=== PATIENT | female | born 1930 | race American Indian/Alaskan Native ===

== ENCOUNTER 2016-12-21 15:52 | Emergency (ER) | payer MEDICARE ==
--- NOTE | 2016-12-21 17:15 | Cat Scan Report ---
FINAL REPORT EXAM: CT HEAD/BRAIN WO CON HISTORY: Fall, lac to head TECHNIQUE: Standard unenhanced CT of the head at 5.0 millimeter axial increments. PRIORS: None. FINDINGS: There is a soft tissue laceration overlying the left forehead. No underlying fracture or subdural hematoma in this region is seen. 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 Encephalomalacia is noted particularly in the right temporal lobe with compensatory ballooning of the right lateral ventricle. There is overall moderate cerebral atrophy noted. There is no evidence for mass lesion, mass effect, midline shift, acute intracranial hemorrhage, or acute ischemia/ infarction. No evidence for acute skull fracture is seen. Visualized paranasal sinuses demonstrate mild mucosal thickening in the frontal, ethmoid, maxillary, and sphenoid sinuses. IMPRESSION: 1. no acute intracranial process noted. Left forehead scalp laceration identified. 2. The area of remote infarct encephalomalacia in the right temporal parietal lobes with compensatory dilatation of the right lateral ventricle. 3. Chronic pansinusitis.
[2016-12-21] MEDS ORDERED: BOOSTRIX IM ONE (17:54)
[2016-12-21] MEDS ORDERED: PROVENTIL IH ONE (17:54)
[2016-12-21] MEDS ORDERED: ATROVENT IH ONE (17:54)
[2016-12-21] MEDS ORDERED: NORCO 5/325 PO ONE (17:54)
--- NOTE | 2016-12-21 17:56 | XRay Report ---
FINAL REPORT EXAM: XR HIP 2-3V LT HISTORY: Fall, pain left hip TECHNIQUE: AP view of the pelvis and single coned-down lateral views of the left hip. PRIORS: None. FINDINGS: No evidence for acute fracture or dislocation is seen. Joint spaces are maintained. The soft tissues demonstrate vascular calcifications. Bony mineralization is normal. Moderate to severe degenerative disc narrowing throughout the lumbar spine is seen. IMPRESSION: No acute soft tissue or bony abnormality noted in the left hip.
--- NOTE | 2016-12-21 18:39 | Emergency Department Report ---
HPI - General Chief Complaint: Laceration/Recheck/Suture Time Seen by Provider: 12/21/16 17:32 - HPI HPI: Room 19 The patient is an 86-year-old female presenting with a chief complaint of head pain after fall. Approximately 2 hours prior to arrival in the patient slipped and fell striking her head on her bed frame. Family denies loss of consciousness. The patient complains of pain in her head and left hip. Family states the patient is being treated for pneumonia approximately 1 month ago but still has had a persistent cough. Patient was given a Z-Harvinder which she has completed. Family states he ran out of medication for her nebulizer. Location: [see above] Duration: [see above] Quality: Pain Severity: Moderate Modifying factors: [see above] Context: [see above] Mode of transportation: [not driving] ED Past Medical Hx - Past Medical History Hx Hypertension: Yes Hx CVA: Yes (x7) Hx Diabetes: Yes Additional medical history: anemia (with transfusions), pneumonia - Surgical History Additional Surgical History: hysterectomy, colon polyps removed, pacemaker - Family History Family history: no significant - Social History Smoking Status: Never Smoker Substance Use Type: None - Medications Home Medications: Home Medications Medication Instructions Recorded Confirmed Last Taken Type ALBUTEROL Inhaler [Proair] 2 puff IH QID PRN #1 inhalation 12/21/16 Unknown Rx Albuterol Sulfate [Albuterol 0.63% 0.63 mg IH TID PRN #90 ml 12/21/16 Unknown Rx NEBS] Amlodipine Besylate [Norvasc] 10 mg PO DAILY #90 tablet 12/21/16 Unknown Rx AtorvaSTATin [Lipitor] 20 mg PO QHS #90 tablet 12/21/16 Unknown Rx Hydralazine HCl [Apresoline TAB] 50 mg PO TID #90 tablet 12/21/16 Unknown Rx Metoprolol [Lopressor TAB] 25 mg PO BID #90 tablet 12/21/16 Unknown Rx Promethazine /Codeine 5 ml PO Q6H PRN #100 ml 12/21/16 Unknown Rx [Phenergan/Codeine 6.25-10 mg/5 ml] ED Review of Systems ROS: Stated complaint: FELL/HEAD LACERATION Other details as noted in HPI Comment: All other systems reviewed and negative Constitutional: denies: chills, fever Eyes: denies: eye pain, eye discharge, vision change ENT: denies: ear pain, throat pain Respiratory: cough Cardiovascular: denies: chest pain, palpitations Endocrine: no symptoms reported Gastrointestinal: abdominal pain Genitourinary: denies: urgency, dysuria, discharge Musculoskeletal: arthralgia, myalgia Skin: other (forehead laceration). denies: rash, lesions Neurological: denies: headache, weakness, paresthesias Psychiatric: denies: anxiety, depression Hematological/Lymphatic: denies: easy bleeding, easy bruising Physical Exam - Physical Exam Vital Signs: Vital Signs 12/21/16 12/21/16 12/21/16 16:01 17:17 18:07 Temperature 97.8 F Pulse Rate 82 79 Pulse Rate [ 78 Bilateral Bases ] Respiratory 18 22 Rate Respiratory 18 Rate [Bilateral Bases] Blood Pressure 177/57 Blood Pressure 118/70 [Left] O2 Sat by Pulse 98 97 Oximetry Physical Exam: GENERAL: The patient is well-developed well-nourished female lying on stretcher appearing to be in mild discomfort. [] HEENT: Normocephalic. Approximately 2.5; laceration to the left forehead. Scabbed abrasions to the middle and right forehead. Extraocular motions are intact. Patient has moist mucous membranes. NECK: Supple. Trachea midline CHEST/LUNGS: Clear to auscultation. There is no respiratory distress noted. HEART/CARDIOVASCULAR: Regular. There is no tachycardia. There is no gallop rub or murmur. ABDOMEN: Abdomen is soft, with tenderness to palpation in the suprapubic and left upper quadrant. Patient has normal bowel sounds. There is no abdominal distention. SKIN: There is an approximately 2.5 cm laceration to left forearm. There is no diaphoresis. NEURO: The patient is awake, alert, and oriented. The patient is cooperative. The patient has normal speech MUSCULOSKELETAL: There is no evidence of acute injury. ED Course Vital Signs 12/21/16 12/21/16 12/21/16 16:01 17:17 18:07 Temperature 97.8 F Pulse Rate 82 79 Pulse Rate [ 78 Bilateral Bases ] Respiratory 18 22 Rate Respiratory 18 Rate [Bilateral Bases] Blood Pressure 177/57 Blood Pressure 118/70 [Left] O2 Sat by Pulse 98 97 Oximetry ED Medical Decision Making - Radiology Data Radiology results: report reviewed (CT head, CT abdomen and pelvis), image reviewed (CT head, chest x-ray, left hip x-ray CT abdomen and pelvis) interpreted by me: Chest x-ray-no definite focal infiltrates, no pneumothorax Left hip x-ray-no acute fracture CT head (read by radiologist)-no acute intracranial process noted. Left forehead scalp laceration identified. There is a remote infarct so formalization the right temporal parietal lobes with compensatory dilatation of the right lateral ventricle. Chronic pansinusitis CT abdomen and pelvis (read by radiologist)-2 adjacent periumbilical midline ventral hernias containing only fat. Granulomas throughout the liver. Nonobstructing calculus in the right kidney. Moderate stool present throughout the entire colon which can be associated with constipation. - Differential Diagnosis closed head injury, intracranial hemorrhage, facial laceration, diverticuli Critical care attestation.: If time is entered above; I have spent that time in minutes in the direct care of this critically ill patient, excluding procedure time. ED Disposition Clinical Impression: Closed head injury, Forehead laceration, Contusion of left hip, Ventral hernia , Cough Disposition: DISCHARGED TO HOME OR SELFCARE Is pt being admited?: No Does the pt Need Aspirin: No Condition: Stable Instructions: Suture Care (ED), Laceration (ED) Additional Instructions: Return to the emergency department immediately should you develop worsening symptoms, fever, inability to tolerate food or liquid or any other concerns. Prescriptions: ALBUTEROL Inhaler [Proair] 2 puff IH QID PRN #1 inhalation PRN Reason: Shortness Of Breath Albuterol Sulfate [Albuterol 0.63% NEBS] 0.63 mg IH TID PRN #90 ml PRN Reason: Wheezing Amlodipine Besylate [Norvasc] 10 mg PO DAILY #90 tablet AtorvaSTATin [Lipitor] 20 mg PO QHS #90 tablet Hydralazine HCl [Apresoline TAB] 50 mg PO TID #90 tablet Metoprolol [Lopressor TAB] 25 mg PO BID #90 tablet Promethazine /Codeine [Phenergan/Codeine 6.25-10 mg/5 ml] 5 ml PO Q6H PRN #100 ml PRN Reason: cough Referrals: ARMEN SENA MD [Staff Physician] - 3-5 Days (Dr. Sena is a primary physician. Please follow with him to be established as a patient) JOHNY DALLAS MD [Staff Physician] - 3-5 Days (Dr. Dallas is a caster operator. Please follow up with her for further evaluation) KAYLYN BARBOSA MD [Staff Physician] - 3-5 Days (Dr. Barbosa is a surgeon. Please follow with him for further evaluation of your hernia) Time of Disposition: 20:12 Blank Doc - Documentation Documentation: Laceration note Consent was obtained verbally The wound was anesthetized with lidocaine 2% with epinephrine approximately 5 mL 's Wound was copiously irrigated with normal saline Site was prepped with Betadine Sutures used were 6.0 Ethilon The number of sutures placed in a simple interrupted fashion 5 The wound had good approximation The wound had good hemostasis Antibiotic ointment was applied and the wound was dressed Suture removal discussed with patient and informed the sutures need to be removed in 3-5 days Laceration type: Simple There were no complications
[2016-12-21 18:45] VITALS: BP 115/61
[2016-12-21] MEDS ORDERED: NACL 0.9% 500 ML IR ONE (18:51)
[2016-12-21] MEDS ORDERED: XYLOCAINE 2%/EPI 1:100,000 INFILTRATI ONE ×2 (18:56→19:01)
[2016-12-21] MEDS ORDERED: NACL 0.9% IR ONE (19:00)
--- NOTE | 2016-12-21 19:53 | Cat Scan Report ---
FINAL REPORT EXAM: CT ABDOMEN PELVIS WO CON HISTORY: intermittent periumbilical left sided abdominal pain TECHNIQUE: Standard unenhanced CT of the abdomen and pelvis. Coronal and sagittal reconstruction was also performed. PRIORS: None. FINDINGS: In the periumbilical region, there are 2 small periumbilical hernias adjacent to each other along midline. Both of these contain only fat and are located directly cranial to the umbilicus. Diastasis to the right-sided hernia is 9 mm. To the left, the diastasis is 5 mm. Within the abdomen, the liver demonstrates a multitude punctate calcifications throughout, likely granulomatous. The spleen, pancreas, gallbladder, adrenal glands, and left kidney are unremarkable. Nonobstructing calculus in the midpole right kidney is noted measuring 5 mm. No evidence for retroperitoneal or pelvic lymphadenopathy is seen. Moderate stool is present throughout the colon. The bowel loops have normal caliber. No soft tissue mass, fluid collection, inflammatory change, or free air is seen within the abdomen or pelvis. The appendix is not visualized. Moderate calcification of a normal sized aorta is seen. Within the pelvis, the bladder demonstrates 2 small diverticuli off each lateral margin. The largest is on the left measuring 1 cm. The uterus has been surgically removed. No evidence for mass or lymphadenopathy is seen in the pelvis. Images through the upper abdomen include the lung bases which demonstrate bibasilar atelectasis. A small pericardial effusion is seen. Pacer wires terminate in the right atrium and right ventricle. Bony structures show no focal abnormalities. Moderate degenerative disc narrowing throughout the lumbar spine is seen with extensive bilateral facet joint hypertrophy at multiple levels. IMPRESSION: 1. Two adjacent periumbilical midline ventral hernias containing only fat. 2. Granulomas throughout the liver 3. Nonobstructing calculus in the right kidney 4. Moderate stool present throughout the entire colon which can be associated with constipation 5. Pericardial effusion 6. Bibasilar atelectasis
[2016-12-21] MEDS ORDERED: BACITRACIN (ED) OINT PACKET TP ONE (20:30)
--- NOTE | 2016-12-22 08:55 | XRay Report ---
Portable chest: Comparison is made to a prior exam on April 20, 2014. The patient has a bipolar pacemaker with a normal-sized heart. These findings are unchanged. The overall bronchovascular pattern is more prominent on the current examination. No focal findings. Impression: Interval increase in bronchovascular markings. The possibilities would include mild congestive failure pattern.
== END 2016-12-21 20:39 | disposition home or self-care (01) ==
LOC: ED 15:52
DX: S01.81XA Laceration without foreign body of other part of head, initial encounter (principal); S70.02XA Contusion of left hip, initial encounter; K43.9 Ventral hernia without obstruction or gangrene; R05 Cough; I10 Essential (primary) hypertension; E11.9 Type 2 diabetes mellitus without complications; J18.9 Pneumonia, unspecified organism; D64.9 Anemia, unspecified; Z88.0 Allergy status to penicillin; Z90.710 Acquired absence of both cervix and uterus; Z86.73 Personal history of transient ischemic attack (TIA), and cerebral infarction without residual deficits; W01.190A Fall on same level from slipping, tripping and stumbling with subsequent striking against furniture, initial encounter; Y93.89 Activity, other specified; Y92.89 Other specified places as the place of occurrence of the external cause; Y99.8 Other external cause status
CPT/HCPCS: 70450; 71010; 74176; 90471; 90715; 94640

== ENCOUNTER 2017-01-01 22:10 | Emergency (ER) | payer MEDICARE ==
--- NOTE | 2017-01-01 23:18 | Emergency Department Report ---
ED Recheck HPI - General Stated Complaint: STITCHES REMOVAL Time Seen by Provider: 01/01/17 23:17 Source: patient, family Mode of arrival: Wheelchair Limitations: Physical Limitation - History of Present Illness Initial Comments: Patient here with family member brought patient in to have sutures removed 2016. She had laceration to her left forehead and sutures were placed. Patient denies any headache, fever, drainage from area or redness or swelling around area. MD Complaint: wound re-check Onset/Timin -: days(s) Initial Visit For: laceration Returns Today for: staple/Stitch removal, wound recheck Symptoms Since Prior Visit: no new symptoms Context: planned re-check Associated Symptoms: none Treatments Prior to Arrival: other (suture) - Related Data Previous Rx's Medication Instructions Recorded Last Taken Type ALBUTEROL Inhaler [Proair] 2 puff IH QID PRN #1 inhalation 12/21/16 Unknown Rx Albuterol Sulfate [Albuterol 0.63% 0.63 mg IH TID PRN #90 ml 12/21/16 Unknown Rx NEBS] Amlodipine Besylate [Norvasc] 10 mg PO DAILY #90 tablet 12/21/16 Unknown Rx AtorvaSTATin [Lipitor] 20 mg PO QHS #90 tablet 12/21/16 Unknown Rx Hydralazine HCl [Apresoline TAB] 50 mg PO TID #90 tablet 12/21/16 Unknown Rx Metoprolol [Lopressor TAB] 25 mg PO BID #90 tablet 12/21/16 Unknown Rx Promethazine /Codeine 5 ml PO Q6H PRN #100 ml 12/21/16 Unknown Rx [Phenergan/Codeine 6.25-10 mg/5 ml] Allergies Allergy/AdvReac Type Severity Reaction Status Date / Time Penicillins Allergy Hives Verified 04/20/14 04:58 ED Review of Systems ROS: Stated complaint: STITCHES REMOVAL Other details as noted in HPI Comment: All other systems reviewed and negative Constitutional: denies: chills, fever Respiratory: no symptoms reported Cardiovascular: denies: chest pain, palpitations, edema, syncope Gastrointestinal: denies: nausea, vomiting Musculoskeletal: denies: back pain, arthralgia Skin: other (laceration) Neurological: denies: headache ED Past Medical Hx - Past Medical History Previous Medical History?: Yes Hx Hypertension: Yes Hx CVA: Yes (x7) Hx Diabetes: Yes Additional medical history: anemia (with transfusions), pneumonia - Surgical History Past Surgical History?: Yes Additional Surgical History: hysterectomy, colon polyps removed, pacemaker - Family History Family history: hypertension - Social History Smoking Status: Never Smoker Substance Use Type: None - Medications Home Medications: Home Medications Medication Instructions Recorded Confirmed Last Taken Type ALBUTEROL Inhaler [Proair] 2 puff IH QID PRN #1 inhalation 12/21/16 Unknown Rx Albuterol Sulfate [Albuterol 0.63% 0.63 mg IH TID PRN #90 ml 12/21/16 Unknown Rx NEBS] Amlodipine Besylate [Norvasc] 10 mg PO DAILY #90 tablet 12/21/16 Unknown Rx AtorvaSTATin [Lipitor] 20 mg PO QHS #90 tablet 12/21/16 Unknown Rx Hydralazine HCl [Apresoline TAB] 50 mg PO TID #90 tablet 12/21/16 Unknown Rx Metoprolol [Lopressor TAB] 25 mg PO BID #90 tablet 12/21/16 Unknown Rx Promethazine /Codeine 5 ml PO Q6H PRN #100 ml 12/21/16 Unknown Rx [Phenergan/Codeine 6.25-10 mg/5 ml] ED Physical Exam - General Limitations: Physical Limitation General appearance: alert, in no apparent distress - Head Head exam: Present: atraumatic, normocephalic, normal inspection - Expanded Head Exam Expanded Head exam: Present: laceration (stitches. Healed. Nontender to palpate. No signs of infection.). Absent: abrasion, contusion, hematoma, racoon eyes, thurston's sign, general tenderness, tenderness of temporal artery, CSF rhinorrhea , CSF otorrhea - Eye Eye exam: Present: normal appearance, PERRL, EOMI Pupils: Present: normal accommodation - Respiratory Respiratory exam: Present: normal lung sounds bilaterally. Absent: respiratory distress, chest wall tenderness - Cardiovascular Cardiovascular Exam: Present: regular rate, normal rhythm, normal heart sounds - Extremities Exam Extremities exam: Present: normal inspection, full ROM - Neurological Exam Neurological exam: Present: alert, oriented X3, normal gait - Psychiatric Psychiatric exam: Present: normal affect, normal mood - Skin Skin exam: Present: warm, dry, intact, normal color, other (laceration with stitches) - Other Other exam information: 5 stitches removed from left forehead. Wound edges well approximated and no signs of infection. ED Course Vital Signs 01/01/17 23:33 Temperature 98.7 F Pulse Rate 72 Respiratory 18 Rate Blood Pressure 156/50 [Right] O2 Sat by Pulse 100 Oximetry - Reevaluation(s) Reevaluation #1: 01/02/17 01:10 5 stitches removed from healed laceration to left forehead. No Signs of infection and is well approximated and healing 01/02/17 01:11 ED Recheck MDM - Differential Diagnosis Wound Recheck, Suture/Staple Removal - Medical Decision Making ED COURSE: 5 stitches remove from lt forehead. Wound edges well approximated. No signs of infection. Patient instructed to follow up with her primary care physician in 2-3 days. Also instructed to keep affected area clean and dry. Critical care attestation.: If time is entered above; I have spent that time in minutes in the direct care of this critically ill patient, excluding procedure time. ED Disposition Clinical Impression: Visit for suture removal Disposition: DISCHARGED TO HOME OR SELFCARE Is pt being admited?: No Does the pt Need Aspirin: No Condition: Stable Instructions: Suture Removal (ED) Additional Instructions: keep affected area clean and dry Referrals: PRIMARY CARE, [Primary Care Provider] - 2-3 Days Forms: Accompanied Note
[2017-01-01 23:34] VITALS: BP 156/50
== END 2017-01-02 01:43 | disposition home or self-care (01) ==
LOC: ED 22:10
DX: S01.81XD Laceration without foreign body of other part of head, subsequent encounter (principal); I10 Essential (primary) hypertension; E11.9 Type 2 diabetes mellitus without complications; D64.9 Anemia, unspecified; I63.9 Cerebral infarction, unspecified; Z88.0 Allergy status to penicillin

== ENCOUNTER 2018-12-08 12:48 | Inpatient (IN) | payer MEDICARE ==
[2018-12-08] MEDS ORDERED: AMIDATE IV ONE ×2 (12:52→23:30)
[2018-12-08] MEDS ORDERED: XYLOCAINE 1% MPF 5 mL INFILTRATI ONE (12:52)
[2018-12-08] MEDS ORDERED: ZEMURON IV ONE ×2 (12:54→23:30)
[2018-12-08] MEDS ORDERED: NACL 0.9% 1000 ML 2,000 ML ONE (13:02)
[2018-12-08] MEDS ORDERED: MAXIPIME/NS 2 GM/100 ML 2 GM/100 ML BAG IV ONE ×2 (13:11→13:14)
[2018-12-08] MEDS ORDERED: VANCOMYCIN/NS 1 GM/250 ML 1 GM/250 ML BAG IV ONE (13:14)
[2018-12-08] MEDS ORDERED: NACL 0.9% 1000 ML 2,000 ML IV ONE (13:19)
[2018-12-08] MEDS ORDERED: ARTIFICIAL TEARS OPHTH OINT OU PRN (13:31)
[2018-12-08] MEDS ORDERED: VASELINE LIP THERAPY TP PRN (13:31)
[2018-12-08] MEDS ORDERED: SUBLIMAZE IV PRN (13:31)
--- NOTE | 2018-12-08 13:32 | Emergency Department Report ---
ED General Adult HPI - General Chief complaint: Altered Mental Status Stated complaint: STROKE Time Seen by Provider: 12/08/18 13:26 Source: EMS (verbal report received from EMS.ems notes not available at time of chart dictation), RN notes reviewed Mode of arrival: Stretcher Limitations: Altered Mental Status - History of Present Illness Initial comments: This is an 88-year-old female. The patient is brought to the hospital by emergency medical service for altered mental status. EMS arrives providing bag valve mask ventilation for the patient. The patient's last known well time is between 6 AM, and 7 AM. Exact less than well time is not known. EMS verbally reports patient has a history of multiple strokes, and is bedbound. She was apparently found by family in bed, unresponsive. EMS reports normal Accu-Chek in the field. In the emergency room, family not available for discussion of goals of care, for clarification of advanced directives. EMS verbally reported that the patient is full code, although no corroborating paperwork is currently available. In the emergency room, the patient is obtunded, with a Reina Coma Scale of 3, breathing sonorously, and not protecting her airway. She is found to have an appropriate Accu-Chek. Patient is placed on a nasal cannula at 15 L/m. She receives bag valve mask ventilation. She is given 100 mg of lidocaine, introduced with 20 mg of etomidate, and paralyzed with 100 mg of rocuronium. Direct laryngoscopy is performed, and a 7.5 endotracheal tube was inserted, with one attempt, with no desaturation, and no difficulty. Simultaneously, the patient is found to be hypotensive, with a blood pressure in the 70s to 80s. 2 L of IV fluid ordered wide open. Empiric antibiotic coverage is ordered. Given hemodynamic instability, respiratory failure, current undifferentiated shock, and emergent, sterile and ultrasound-guided central line, is placed on myself, using ultrasound guidance, into the right internal jugular vein, using typical sterile precautions, with no obvious complications. The patient is currently intubated, obtunded, and shocky, with a blood pressure 70s. Family is not available for collateral information at this time. -: unknown Associated Symptoms: confusion, malaise, weakness - Related Data Previous Rx's Medication Instructions Recorded Last Taken Type ALBUTEROL Inhaler (OR & NICU) 2 puff IH QID PRN #1 inhalation 03/16/17 Unknown Rx [Proair] Albuterol Sulfate [Albuterol 0.63% 0.63 mg IH TID PRN #90 ml 12/21/16 Unknown Rx NEBS] Amlodipine Besylate [Norvasc] 10 mg PO DAILY #90 tablet 12/21/16 Unknown Rx AtorvaSTATin [Lipitor] 20 mg PO QHS #90 tablet 12/21/16 Unknown Rx Hydralazine HCl [Apresoline TAB] 50 mg PO TID #90 tablet 12/21/16 Unknown Rx Metoprolol [Lopressor TAB] 25 mg PO BID #90 tablet 12/21/16 Unknown Rx Promethazine /Codeine 5 ml PO Q6H PRN #100 ml 12/21/16 Unknown Rx [Phenergan/Codeine 6.25-10 mg/5 ml] Allergies Allergy/AdvReac Type Severity Reaction Status Date / Time Penicillins Allergy Hives Verified 12/08/18 13:13 ED Review of Systems ROS: Stated complaint: STROKE Other details as noted in HPI Comment: Unobtainable due to pts medical conditions ED Past Medical Hx - Past Medical History Hx Hypertension: Yes Hx CVA: Yes (x7) Hx Diabetes: Yes Additional medical history: anemia (with transfusions), pneumonia - Surgical History Additional Surgical History: hysterectomy, colon polyps removed, pacemaker - Social History Smoking Status: Never Smoker Substance Use Type: None - Medications Home Medications: Home Medications Medication Instructions Recorded Confirmed Last Taken Type ALBUTEROL Inhaler (OR & NICU) 2 puff IH QID PRN #1 inhalation 12/21/16 Unknown Rx [Proair] Albuterol Sulfate [Albuterol 0.63% 0.63 mg IH TID PRN #90 ml 12/21/16 Unknown Rx NEBS] Amlodipine Besylate [Norvasc] 10 mg PO DAILY #90 tablet 12/21/16 Unknown Rx AtorvaSTATin [Lipitor] 20 mg PO QHS #90 tablet 12/21/16 Unknown Rx Hydralazine HCl [Apresoline TAB] 50 mg PO TID #90 tablet 12/21/16 Unknown Rx Metoprolol [Lopressor TAB] 25 mg PO BID #90 tablet 12/21/16 Unknown Rx Promethazine /Codeine 5 ml PO Q6H PRN #100 ml 12/21/16 Unknown Rx [Phenergan/Codeine 6.25-10 mg/5 ml] ED Physical Exam - General Limitations: Altered Mental Status General appearance: obtunded, cachectic - Head Head exam: Present: atraumatic, normocephalic - Eye Eye exam: Present: normal appearance - ENT ENT exam: Present: mucous membranes dry - Neck Neck exam: Present: normal inspection. Absent: tenderness, meningismus - Respiratory Respiratory exam: Present: respiratory distress, rhonchi - Cardiovascular Cardiovascular Exam: Present: normal rhythm, tachycardia, normal heart sounds. Absent: systolic murmur, diastolic murmur, rubs, gallop - GI/Abdominal GI/Abdominal exam: Present: soft, other (scaphoid abdomen is noted). Absent: distended, tenderness, guarding, rebound, rigid, pulsatile mass - Rectal Rectal exam: Absent: normal inspection (punctate wounds noted) - External exam: Present: normal external exam - Extremities Exam Extremities exam: Present: normal inspection, other (thready pulses noted in 4 extremities). Absent: pedal edema - Back Exam Back exam: Present: normal inspection. Absent: paraspinal tenderness, vertebral tenderness - Neurological Exam Neurological exam: Present: altered, other (nonverbal, GCS of 3) - Psychiatric Psychiatric exam: Present: other (patient is nonverbal) - Skin Skin exam: Present: warm, dry, intact, normal color. Absent: rash ED Course Vital Signs 12/08/18 12/08/18 12/08/18 12:50 13:00 13:15 Temperature Pulse Rate 95 H 111 H 90 Respiratory 14 20 18 Rate Blood Pressure 86/42 75/39 Blood Pressure [Right] O2 Sat by Pulse 96 Oximetry 12/08/18 12/08/18 12/08/18 13:29 13:30 13:45 Temperature Pulse Rate 92 H 84 83 Respiratory 17 18 Rate Blood Pressure 106/40 69/35 84/39 Blood Pressure [Right] O2 Sat by Pulse 100 100 100 Oximetry 12/08/18 12/08/18 12/08/18 14:00 14:06 14:15 Temperature 99.5 F Pulse Rate 65 65 Respiratory 18 18 Rate Blood Pressure 87/38 88/38 Blood Pressure [Right] O2 Sat by Pulse 100 100 Oximetry 12/08/18 12/08/18 12/08/18 14:30 14:45 15:00 Temperature Pulse Rate 66 61 61 Respiratory 18 20 19 Rate Blood Pressure 153/63 143/58 140/60 Blood Pressure [Right] O2 Sat by Pulse 100 100 100 Oximetry 12/08/18 12/08/18 12/08/18 15:43 15:45 16:07 Temperature Pulse Rate 60 62 Respiratory 19 21 Rate Blood Pressure 143/58 Blood Pressure 127/58 [Right] O2 Sat by Pulse 100 100 100 Oximetry 12/08/18 12/08/18 16:35 16:40 Temperature 94.0 F L 94.1 F L Pulse Rate 60 69 Respiratory 18 18 Rate Blood Pressure 119/52 178/68 Blood Pressure [Right] O2 Sat by Pulse 100 100 Oximetry - Reevaluation(s) Reevaluation #1: 12/08/18 13:45 Differential diagnosis, including not limited to: Intracranial hemorrhage, stroke, pneumonia, urinary tract infection, bacteremia, viremia, acute coronary syndrome Assessment and plan: 88-year-old female with altered mental status and und ifferentiated shock. The patient is not a TPA candidate as her last known well time is not exactly known, and she presented more than 4.5 hours after her exact last known well time. Given that she is verbally reported to be bedbound with multiple strokes, patient would not be considered an emergent endovascular candidate for emergent intervention, and therefore not benefit from emergent angiogram of the head and neck to exclude large vessel occlusion. In addition, given her low-grade temperature, hypotension, and tachycardia, patient's clinical presentation and altered mental status is more suggestive of shock, rather than ischemic event. She will be resuscitated according to the sepsis pathway, with broad-spectrum antibiotics, IV fluids, and supportive care. She'll be ventilated on the lung protective strategy. Currently, no family is available to discuss goals of care or advanced directives. Prognosis is poor. We will obtain CT scan of the brain, and CT scan of the chest. Reevaluation #2: 12/08/18 14:01 Additional history obtained from patient's granddaughter. Patient has reportedly not had a stroke for the past 10 years. Patient has had decreased appetite over the past few days, endorsed dysuria yesterday, and also is complaining of right-sided ear pain. The granddaughter believes the patient was putting Neosporin and perhaps ear stephanie in the patient's ear. On physical exam, patient found to have purulent discharge from the right ear, and stephanie are removed by myself. There is probable perforation of the right sided tympanic membrane. Decadron will be ordered for additional coverage, we will continue CT scan of the chest, as the granddaughter endorses no DVT or pulmonary embolus risk factors. Once patient gets back from CT scan, we will obtain spinal tap to exclude meningitis. 12/08/18 15:40 Reevaluation #3: 12/08/18 14:56 Change in plans. Platelet count 56. We will not perform spinal tap. Urinalysis consistent with urinary tract infection. X-ray of the chest suggest lower lobe pneumonia. Discussed these findings with granddaughter, who verbalizes understanding. Patient's granddaughter also endorses that patient typically has anemia, and history of packed red blood cell transfusions. 12/08/18 15:41 Reevaluation #4: 12/08/18 15:47 Dr Chaudhary accepts to his service Reevaluation #5: 12/08/18 16:54 CT scan of the brain negative for acute disease. CT scan of the chest shows large pericardial effusion, left sided pneumonia Based off of the history and physical, I do not suspect that the aforementioned pericardial effusion is causing tamponade or imminent cardiovascular collapse. Rather, I suspect that the patient has distributive shock secondary to multifocal sepsis, including presumed pneumonia and urinary tract infection. Nevertheless, we have obtained cardiology consult, Dr. Limon, his group will follow in consultation. - Consultations Consultation #1: 12/08/18 13:45 Discussed with critical care physician, Dr. Robles, who agrees with placement into the intensive care unit. - Central Line Placement Right IJ Consent Obtained: emergent situation Time Out Performed: Yes Patient Placed on Monitor/Pulse Ox: Yes Prep: mask, gown, gloves Central Line Prep: Chlorhexidine scrub, sterile drapes applied Ultrasound Used for Placement: Yes Central Line Lumen Inserted: triple Bloods Obtained for Lab: No Central Line Position: good blood return, all ports aspirated, flus, sutured in place with 2-0 Dressing Applied: Tegaderm Post Procedure X-Ray: tip of catheter in good p Patient Tolerated Procedure: well Complications: none Additional Comments: Ultrasound guidance used during procedure. Ultrasound guidance confirmed placement of guidewire into the jugular lumen, and subsequent placement of venous catheter, into the jugular lumen. No obvious complications noted thus far.. - EJ/Peripheral Line Neck L Time Out Performed: Yes Indications: nurses unable to establis Skin Cleansed in Sterile Fashion: Yes Size: 20 Dressing Placed: Tegaderm Patient Tolerated Procedure: well - Intubation Time Out Performed: Yes Sedative: Etomidate Mg Given: 20 Paralytic: Rocuronium Mg Given: 100 Laryngoscope: Miroslava Size: 4 ET Tube Size: 7.5 Tube Secured Depth (cm): 23 Tube Secured Location: teeth Tube Placement Confirmation: visualized tube passing t, equal breath sounds bilat, no breath sounds over epi, confirmation by capnometr Patient Tolerated Procedure: well Intubation Complications: none Additional Comments: Patient placed on a nasal cannula at 15 L/m. Receives [id number] ventilation and 100% FiO2. Direct laryngoscopy performed, vocal cords easily visualized, and a 7.5 endotracheal tube was inserted without difficulty. The patient tolerated the procedure well. ED Medical Decision Making - Lab Data Result diagrams: 12/08/18 13:40 12/08/18 13:40 - Radiology Data Radiology results: image reviewed interpreted by me: X-ray of the chest shows appropriate placement of central line, endotracheal tube. Critical Care Time: Yes Critical care time in (mins) excluding proc time.: 60 Critical care attestation.: If time is entered above; I have spent that time in minutes in the direct care of this critically ill patient, excluding procedure time. ED Disposition Clinical Impression: Respiratory failure, Sepsis, Microcytic anemia, Encephalopathy Disposition: OP ADMIT IP TO THIS HOSP Is pt being admited?: Yes Condition: Critical
[2018-12-08] MEDS ORDERED: LEVOPHED DRIP 4 MG/NS 250 ML 4 MG/250 ML BAG IV SCH (14:00)
[2018-12-08] MEDS ORDERED: LEVAQUIN 750MG/150ML 750 MG/150 ML BAG IV ONE (14:00)
[2018-12-08] MEDS ORDERED: fentaNYL DRIP Premix 2,000 MCG/100 ML BAG IV SCH (14:00)
[2018-12-08] MEDS ORDERED: DECADRON IV ONE (14:01)
[2018-12-08 14:27] LABS: Bacteria,Urine 4+ /HPF (Negative); Bilirubin,Urine NEG (Negative); Blood,Urine SM (Negative); Color,Urine Amber (Yellow); Mucus,Urine 2+ /HPF
[2018-12-08 14:28] LABS: Hematocrit 21.1 % (30.3-42.9); Hemoglobin 6.8 gm/dl (10.1-14.3); Mean Corpuscular HGB Conc 32 % (30-34); Red Blood Count 3.06 M/mm3 (3.65-5.03); Red Cell Distribution Width 16.2 % (13.2-15.2)
[2018-12-08 14:36] LABS: Albumin 1.8 g/dL (3.9-5); Calcium 7.7 mg/dL (8.4-10.2)
[2018-12-08 14:41] LABS: Mean Corpuscular Volume 69 fl (79-97)
--- NOTE | 2018-12-08 14:42 | XRay Report ---
PROCEDURE: XR CHEST 1V AP TECHNIQUE: Chest radiograph single view. HISTORY: ett placement COMPARISONS: None . FINDINGS: Heart: Borderline cardiomegaly. Mediastinum/Vessels: Normal. Lungs/Pleural space: Small left pleural effusion with associated atelectasis or infiltrate at the le ft lung base. Bony thorax: No acute osseous abnormality. Life support devices: Left-sided pacemaker device is unchanged in position. Endotracheal tube with ti p in the midtrachea. Right internal jugular line with tip in the superior vena cava. IMPRESSION: Endotracheal tube with tip in the mid trachea. Small left pleural effusion with associated atelectasis or infiltrate at the left lung base. This document is electronically signed by Reema Taveras MD., December 08 2018 02:39:43 PM ET
[2018-12-08] MEDS ORDERED: ZOVIRAX 500 MG in NACL 0.9% 100 ML IV STA (14:57)
[2018-12-08 15:09] LABS: INR 1.64 (0.87-1.13)
[2018-12-08] MEDS ORDERED: NACL 0.9% 500 ML 500 ML IV ONE (15:39)
[2018-12-08 15:41] LABS: Band Neutrophils # (Manual) 3.5 K/mm3; Basophils % (Manual) 0 % (0.0-1.8); Dohle Bodies 1+; Eosinophils % (Manual) 0 % (0.0-4.3); Total Cells Counted 100
[2018-12-08 15:42] LABS: Burr Cells 2+
[2018-12-08 15:43] LABS: Hypochromasia 2+; Ovalocytes 1+; Poikilocytosis 2+
[2018-12-08 15:44] LABS: Giant Platelets Few; Schistocytes 1+; Target Cells Few
[2018-12-08 15:45] LABS: Large Platelets Few; Platelet Estimate Appears Decreased
[2018-12-08 16:04] LABS: Platelet Count 56 K/mm3 (140-440)
[2018-12-08] MEDS ORDERED: NACL 0.9% 500 ML 500 ML ONE (16:30)
--- NOTE | 2018-12-08 16:39 | Cat Scan Report ---
PROCEDURE: CT HEAD/BRAIN WO CON TECHNIQUE: CT of the head was performed without the use of IV contrast HISTORY: ams COMPARISONS: None available FINDINGS: There is right middle cerebral artery distribution encephalomalacia. There is ex vacuo dilatation of the right lateral ventricle. No evidence of hydrocephalus, intracranial mass, acute hemorrhage, or ac [place] infarction. There is white matter low-attenuation, likely related to chronic microvas cular ischemic changes. No acute fracture is seen. There is partial opacification of bilateral fronta l and ethmoid sinuses. There is bilateral sphenoid sinus opacification. There is opacification of the right mastoid. IMPRESSION: Extensive right middle cerebral artery distribution encephalomalacia, compatible with prior infarctio n. No CT evidence of acute intracranial abnormality. Sinus disease. Opacification of the right mastoid air cells. This document is electronically signed by Ene Robles MD., December 08 2018 04:36:57 PM ET
--- NOTE | 2018-12-08 16:45 | Cat Scan Report ---
PROCEDURE: CT CHEST WO CON TECHNIQUE: Computerized axial tomography of the chest was performed without contrast material. This study is performed without intravenous contrast and the sensitivity for pathology, including neoplasm s, adenopathy, abscess, pulmonary embolism and aortic dissection, is reduced. HISTORY: Pneumonia, respiratory failure COMPARISONS: None . FINDINGS: Heart and pericardium: Large pericardial effusion, measuring 2.9 cm in thickness. Thoracic aorta: Aortic atherosclerotic calcification. Pulmonary vasculature: Normal caliber. Lymph nodes: No enlarged thoracic lymph nodes. Lungs: There is a calcified granuloma in the left upper lobe. There is airspace atelectasis or infil trate in the left lower lobe, with volume loss. Pleural space: Small left pleural effusion. Musculoskeletal structures: No significant abnormality. Upper abdominal structures: Numerous calcifications are seen throughout the liver. IMPRESSION: Large pericardial effusion, measuring up to 2.9 cm in thickness. There is left lower lung volume loss, with left lower lobe atelectasis and/or infiltrate. Left pleura l effusion is present. This document is electronically signed by Ene Robles MD., December 08 2018 04:43:28 PM ET
[2018-12-08] MEDS ORDERED: SUBLIMAZE ONE (18:53)
[2018-12-08] MEDS ORDERED: NACL 0.9% 1000 ML 1,000 ML ONE (22:32)
[2018-12-08] MEDS ORDERED: NACL 0.9% 1000 ML 1,000 ML IV SCH (23:00)
[2018-12-08] MEDS ORDERED: XYLOCAINE CARDIAC IV ONE (23:30)
--- NOTE | 2018-12-09 00:22 | History and Physical Report ---
History of Present Illness Date of examination: 12/08/18 Date of admission: 12/08/18 15:48 Chief complaint: Decreased responsiveness since AM History of present illness: 88-year-old female brought to the hospital by emergency medical service for altered mental status. Patient on bag valve mask ventilation at arrival in the ED.. The patient's last known well time is between 6 AM, and 7 AM. Patient has a history of multiple strokes, and is bed bound.Patient also has history of HTN COPD and HLD. She was apparently found by family in bed, unresponsive. In the emergency room, the patient is obtunded, with a Reina Coma Scale of 3, breathing sonorously, and not protecting her airway. Patient is placed on a nasal cannula at 15 L/m. She receives bag valve mask ventilation. Patient was hypotensive in ER Patient was intubated in ED by Dr Downing-ED physician.Also central line was placed in ED by ER Physician. Additional history obtained from patient's granddaughter. No stroke for the past 10 years. Patient has had decreased appetite over the past few days, endorsed dysuria yesterday, and also is complaining of right-sided ear pain. Patient was found to have purulent discharge from the right ear. There is probable perforation of the right sided tympanic membrane per ED physician Past Medical History Hypertension: Yes CVA: Yes (x7) Diabetes: Yes Additional medical history: anemia (with transfusions), pneumonia Surgical History Additional Surgical History: hysterectomy, colon polyps removed, pacemaker Social History Smoking Status: Never Smoker Substance Use Type: None Patient is Full code per Daughter who is at bedside inspite of me discussing DNR Familly History Htn Medications Home Medications: Home Medications Medication Instructions Recorded Confirmed Last Taken Type ALBUTEROL Inhaler (OR & NICU) 2 puff IH QID PRN #1 inhalation 12/21/16 Unknown Rx [Proair] Albuterol Sulfate [Albuterol 0.63% 0.63 mg IH TID PRN #90 ml 12/21/16 Unknown Rx NEBS] Amlodipine Besylate [Norvasc] 10 mg PO DAILY #90 tablet 12/21/16 Unknown Rx AtorvaSTATin [Lipitor] 20 mg PO QHS #90 tablet 12/21/16 Unknown Rx Hydralazine HCl [Apresoline TAB] 50 mg PO TID #90 tablet 12/21/16 Unknown Rx Metoprolol [Lopressor TAB] 25 mg PO BID #90 tablet 12/21/16 Unknown Rx Promethazine /Codeine 5 ml PO Q6H PRN #100 ml 12/21/16 Unknown Rx [Phenergan/Codeine 6.25-10 mg/5 ml] Review of Systems ROS: Stated complaint: STROKE Other details as noted in HPI Comment: Unobtainable due to pts medical conditions Patient intubated Medications and Allergies Allergies Allergy/AdvReac Type Severity Reaction Status Date / Time Penicillins Allergy Hives Verified 12/08/18 13:13 Home Medications Medication Instructions Recorded Confirmed Last Taken Type ALBUTEROL Inhaler (OR & NICU) 2 puff IH QID PRN #1 inhalation 12/21/16 12/08/18 Unknown Rx [Proair] Albuterol Sulfate [Albuterol 0.63% 0.63 mg IH TID PRN #90 ml 12/21/16 12/08/18 Unknown Rx NEBS] Amlodipine Besylate [Norvasc] 10 mg PO DAILY #90 tablet 12/21/16 12/08/18 Unknown Rx AtorvaSTATin [Lipitor] 20 mg PO QHS #90 tablet 12/21/16 12/08/18 Unknown Rx Hydralazine HCl [Apresoline TAB] 50 mg PO TID #90 tablet 12/21/16 12/08/18 Unknown Rx Metoprolol [Lopressor TAB] 25 mg PO BID #90 tablet 12/21/16 12/08/18 Unknown Rx Promethazine /Codeine 5 ml PO Q6H PRN #100 ml 12/21/16 12/08/18 Unknown Rx [Phenergan/Codeine 6.25-10 mg/5 ml] Active Meds: Active Medications Fentanyl (Sublimaze) 50 mcg IV Q10MIN PRN PRN Reason: ANALGESIA Hydrophilic Ointment (Vaseline Lip Therapy) 1 applic TP Q2HR PRN PRN Reason: Dry Lips Norepinephrine (Levophed Drip 4 Mg/Ns 250 Ml) 4 mg in 250 mls @ 7.5 mls/hr IV TITR KOLE; Protocol Last Titration: 12/08/18 20:00 Dose: 0 mcg/min, 0 mls/hr Documented by: Fentanyl Citrate (Fentanyl Drip Premix) 2,000 mcg in 100 mls @ 2.495 mls/hr IV TITR KOLE; Protocol Sodium Chloride (Nacl 0.9% 1000 Ml) 1,000 mls @ 125 mls/hr IV DIRECT KOLE Last Admin: 12/08/18 22:35 Dose: 125 mls/hr Documented by: Multi-Ingred Cream/Lotion/Oil/Oint (Artificial Tears Ophth Oint) 1 applic OU Q4HR PRN PRN Reason: Dry Eye(s) Pneumococcal Polyvalent Vaccine (Pneumovax 23) 0.5 ml IM .ONCE ONE Stop: 12/09/18 12:01 Exam - Physical Exam Narrative exam: Patient intubated and hypotensive in ED - Constitutional Vitals: Temp Pulse Resp BP Pulse Ox 98.3 F 117 H 15 162/73 100 12/08/18 20:30 12/09/18 00:15 12/09/18 00:15 12/09/18 00:15 12/09/18 00:15 General appearance: Present: severe distress, well-nourished - EENT Eyes: Present: PERRL ENT: other (Rt ear discharge present.TM could not be visualized) - Neck Neck: Present: supple, normal ROM - Respiratory Respiratory effort: normal Respiratory: bilateral: diminished, rhonchi, wheezing - Cardiovascular Heart rate: 118 Rhythm: regular Heart Sounds: Present: S1 & S2. Absent: rub, click - Extremities Extremities: no ischemia, pulses intact, pulses symmetrical, No edema Peripheral Pulses: within normal limits - Abdominal General gastrointestinal: Present: soft, non-tender, non-distended, normal bowel sounds Female genitourinary: Present: deferred - Rectal Rectal Exam: deferred - Integumentary Integumentary: Present: clear, warm, dry - Musculoskeletal Musculoskeletal: generalized weakness - Psychiatric Psychiatric: appropriate mood/affect, intact judgment & insight - Neurologic Neurologic: focal deficits (Could not examine FIELD SERVICE SPECIALIST) - Allied Health Allied health notes reviewed: nursing, case management Results - Labs CBC & Chem 7: 12/08/18 13:40 12/08/18 13:40 Labs: Laboratory Last Values WBC 7.8 K/mm3 (4.5-11.0) 12/08/18 13:40 RBC 3.06 M/mm3 (3.65-5.03) L 12/08/18 13:40 Hgb 6.8 gm/dl (10.1-14.3) L 12/08/18 13:40 Hct 21.1 % (30.3-42.9) L 12/08/18 13:40 MCV 69 fl (79-97) L 12/08/18 13:40 MCH 22 pg (28-32) L 12/08/18 13:40 MCHC 32 % (30-34) 12/08/18 13:40 RDW 16.2 % (13.2-15.2) H 12/08/18 13:40 Plt Count 56 K/mm3 (140-440) L 12/08/18 13:40 Add Manual Diff Complete 12/08/18 13:40 Total Counted 100 12/08/18 13:40 Seg Neuts % (Manual) 49.0 % (40.0-70.0) 12/08/18 13:40 Band Neutrophils % 45.0 % 12/08/18 13:40 Lymphocytes % (Manual) 2.0 % (13.4-35.0) L 12/08/18 13:40 Reactive Lymphs % (Man) 1.0 % 12/08/18 13:40 Monocytes % (Manual) 3.0 % (0.0-7.3) 12/08/18 13:40 Eosinophils % (Manual) 0 % (0.0-4.3) 12/08/18 13:40 Basophils % (Manual) 0 % (0.0-1.8) 12/08/18 13:40 Metamyelocytes % 0 % 12/08/18 13:40 Myelocytes % 0 % 12/08/18 13:40 Promyelocytes % 0 % 12/08/18 13:40 Blast Cells % 0 % 12/08/18 13:40 Nucleated RBC % Not Reportable 12/08/18 13:40 Seg Neutrophils # Man 3.8 K/mm3 (1.8-7.7) 12/08/18 13:40 Band Neutrophils # 3.5 K/mm3 12/08/18 13:40 Lymphocytes # (Manual) 0.2 K/mm3 (1.2-5.4) L 12/08/18 13:40 Abs React Lymphs (Man) 0.1 K/mm3 12/08/18 13:40 Monocytes # (Manual) 0.2 K/mm3 (0.0-0.8) 12/08/18 13:40 Eosinophils # (Manual) 0.0 K/mm3 (0.0-0.4) 12/08/18 13:40 Basophils # (Manual) 0.0 K/mm3 (0.0-0.1) 12/08/18 13:40 Metamyelocytes # 0.0 K/mm3 12/08/18 13:40 Myelocytes # 0.0 K/mm3 12/08/18 13:40 Promyelocytes # 0.0 K/mm3 12/08/18 13:40 Blast Cells # 0.0 K/mm3 12/08/18 13:40 WBC Morphology Not Reportable 12/08/18 13:40 Hypersegmented Neuts Not Reportable 12/08/18 13:40 Hyposegmented Neuts Not Reportable 12/08/18 13:40 Hypogranular Neuts Not Reportable 12/08/18 13:40 Smudge Cells Not Reportable 12/08/18 13:40 Toxic Granulation Not Reportable 12/08/18 13:40 Toxic Vacuolation Not Reportable 12/08/18 13:40 Dohle Bodies 1+ 12/08/18 13:40 Pelger-Huet Anomaly Not Reportable 12/08/18 13:40 Mark Rods Not Reportable 12/08/18 13:40 Platelet Estimate Appears decreased 12/08/18 13:40 Clumped Platelets Not Reportable 12/08/18 13:40 Plt Clumps, EDTA Not Reportable 12/08/18 13:40 Large Platelets Few 12/08/18 13:40 Giant Platelets Few 12/08/18 13:40 Platelet Satelliting Not Reportable 12/08/18 13:40 Plt Morphology Comment Not Reportable 12/08/18 13:40 RBC Morphology Not Reportable 12/08/18 13:40 Dimorphic RBCs Not Reportable 12/08/18 13:40 Polychromasia Not Reportable 12/08/18 13:40 Hypochromasia 2+ 12/08/18 13:40 Poikilocytosis 2+ 12/08/18 13:40 Anisocytosis Not Reportable 12/08/18 13:40 Microcytosis 2+ 12/08/18 13:40 Macrocytosis Not Reportable 12/08/18 13:40 Spherocytes Not Reportable 12/08/18 13:40 Pappenheimer Bodies Not Reportable 12/08/18 13:40 Sickle Cells Not Reportable 12/08/18 13:40 Target Cells Few 12/08/18 13:40 Tear Drop Cells Not Reportable 12/08/18 13:40 Ovalocytes 1+ 12/08/18 13:40 Helmet Cells Not Reportable 12/08/18 13:40 [place] Bodies Not Reportable 12/08/18 13:40 Aldrich Rings Not Reportable 12/08/18 13:40 [place] Cells 2+ 12/08/18 13:40 Bite Cells Not Reportable 12/08/18 13:40 Crenated Cell Not Reportable 12/08/18 13:40 Elliptocytes Not Reportable 12/08/18 13:40 Acanthocytes (Spur) Not Reportable 12/08/18 13:40 Rouleaux Not Reportable 12/08/18 13:40 Hemoglobin C Crystals Not Reportable 12/08/18 13:40 Schistocytes 1+ 12/08/18 13:40 Malaria parasites Not Reportable 12/08/18 13:40 Stef Bodies Not Reportable 12/08/18 13:40 Hem Pathologist Commnt No 12/08/18 13:40 PT 20.5 Sec. (12.2-14.9) H 12/08/18 14:29 INR 1.64 (0.87-1.13) H 12/08/18 14:29 APTT 30.0 Sec. (24.2-36.6) 12/08/18 13:40 POC ABG pH 7.375 (7.35-7.45) 12/08/18 16:06 POC ABG pCO2 34.2 (35-45) L 12/08/18 16:06 POC ABG pO2 465 (80-105) H 12/08/18 16:06 POC ABG HCO3 20.0 12/08/18 16:06 POC ABG Total CO2 21 12/08/18 16:06 POC ABG O2 Sat 100 12/08/18 16:06 POC ABG Base Excess -5 12/08/18 16:06 FiO2 100 % 12/08/18 16:06 Sodium 141 mmol/L (137-145) 12/08/18 13:40 Potassium 3.2 mmol/L (3.6-5.0) L 12/08/18 13:40 Chloride 105.8 mmol/L (98-107) 12/08/18 13:40 Carbon Dioxide 18 mmol/L (22-30) L 12/08/18 13:40 Anion Gap 20 mmol/L 12/08/18 13:40 BUN 64 mg/dL (7-17) H 12/08/18 13:40 Creatinine 1.5 mg/dL (0.7-1.2) H 12/08/18 13:40 Estimated GFR 40 ml/min 12/08/18 13:40 BUN/Creatinine Ratio 43 % 12/08/18 13:40 Glucose 145 mg/dL (65-100) H 12/08/18 13:40 Lactic Acid 3.00 mmol/L (0.7-2.0) H* 12/08/18 15:21 Calcium 7.7 mg/dL (8.4-10.2) L 12/08/18 13:40 Total Bilirubin 1.00 mg/dL (0.1-1.2) 12/08/18 13:40 AST 28 units/L (5-40) 12/08/18 13:40 ALT 28 units/L (7-56) 12/08/18 13:40 Alkaline Phosphatase 88 units/L (35-129) 12/08/18 13:40 Total Creatine Kinase 258 units/L (30-135) H 12/08/18 13:40 Total Protein 4.6 g/dL (6.3-8.2) L 12/08/18 13:40 Albumin 1.8 g/dL (3.9-5) L 12/08/18 13:40 Albumin/Globulin Ratio 0.6 % 12/08/18 13:40 Urine Color Yolie (Yellow) 12/08/18 13:40 Urine Turbidity Cloudy (Clear) 12/08/18 13:40 Urine pH 7.0 (5.0-7.0) 12/08/18 13:40 Ur Specific [place] 1.015 (1.003-1.030) 12/08/18 13:40 Urine Protein 100 mg/dl mg/dL (Negative) 12/08/18 13:40 Urine Glucose (UA) Neg mg/dL (Negative) 12/08/18 13:40 Urine Ketones Neg mg/dL (Negative) 12/08/18 13:40 Urine Blood Sm (Negative) 12/08/18 13:40 Urine Nitrite Neg (Negative) 12/08/18 13:40 Urine Bilirubin Neg (Negative) 12/08/18 13:40 Urine Urobilinogen 2.0 mg/dL (<2.0) 12/08/18 13:40 Ur Leukocyte Esterase Mod (Negative) 12/08/18 13:40 Urine WBC (Auto) 157.0 /HPF (0.0-6.0) H 12/08/18 13:40 Urine RBC (Auto) 8.0 /HPF (0.0-6.0) 12/08/18 13:40 U Epithel Cells (Auto) 1.0 /HPF (0-13.0) 12/08/18 13:40 Urine Bacteria (Auto) 4+ /HPF (Negative) 12/08/18 13:40 Urine Mucus 2+ /HPF 12/08/18 13:40 Blood Type B POSITIVE 12/08/18 13:40 Antibody Screen Negative 12/08/18 13:40 Crossmatch See Detail 12/08/18 13:40 - Imaging and Cardiology Chest x-ray: report reviewed CT scan - chest: report reviewed Imaging and Cardiology: CT Chest IMPRESSION: Large pericardial effusion, measuring up to 2.9 cm in thickness. There is left lower lung volume loss, with left lower lobe atelectasis and/or infiltrate. Left pleural effusion is present. This document is electronically signed by Ene Robles MD., December 08 2018 04:43:28 PM ET CXR IMPRESSION: Endotracheal tube with tip in the mid trachea. Small left pleural effusion with associated atelectasis or infiltrate at the left lung base. This document is electronically signed by Reema Taveras MD., December 08 2018 02:39:[address] IMPRESSION: Extensive right middle cerebral artery distribution encephalomalacia, compatible with prior infarction. No CT evidence of acute intracranial abnormality. Sinus disease. Opacification of the right mastoid air cells. This document is electronically signed by Ene Robles MD., December 08 2018 04:36:57 PM ET Assessment and Plan Assessment and plan: CCT 42 minutes Advance Directives: Yes (Full code) VTE prophylaxis?: Chemical Plan of care discussed with patient/family: Yes - Patient Problems (1) Acute respiratory failure with hypoxia Current Visit: Yes Status: Acute Plan to address problem: Patient intubaed Vent management IV abx and Neb tx Probably ppted by Pneumonia and sepsis District Supervisor consult requested (2) Sepsis Current Visit: Yes Status: Acute Qualifiers: Sepsis type: sepsis due to unspecified organism Qualified Code(s): A41.9 - Sepsis, unspecified organism Plan to address problem: IV Abx for now and IV Fluids (3) Acute encephalopathy Current Visit: Yes Status: Acute Plan to address problem: Multifactorial Sec to sepsis and resp failure (4) Hypotension Current Visit: Yes Status: Acute Plan to address problem: Sec to sepsis IV fluids and IV Levophed for now (5) Hypokalemia Current Visit: Yes Status: Acute Plan to address problem: IV Potassium for now (6) MARYANN (acute kidney injury) Current Visit: Yes Status: Acute Plan to address problem: IV fluids for now (7) Severe anemia Current Visit: Yes Status: Acute Plan to address problem: Etio unclear Probably nutritional Transfuse 1 to 2 units of PRBC (8) Pericardial effusion without cardiac tamponade Current Visit: Yes Status: Acute Plan to address problem: ECHO ordered Will defer to cardiology for management of Pericardial effusion (9) HTN (hypertension) Current Visit: Yes Status: Chronic Plan to address problem: Hold antihypertensives (10) HLD (hyperlipidemia) Current Visit: Yes Status: Chronic Qualifiers: Hyperlipidemia type: mixed hyperlipidemia Qualified Code(s): E78.2 - Mixed hyperlipidemia Plan to address problem: Hold statins (11) T2DM (type 2 diabetes mellitus) Current Visit: Yes Status: Chronic Qualifiers: Diabetes mellitus intermediate designer insulin use: unspecified usp insulin use status Plan to address problem: Cont Insulin coverage (12) COPD (chronic obstructive pulmonary disease) Current Visit: Yes Status: Chronic Plan to address problem: Neb treatments (13) DVT prophylaxis Current Visit: Yes Status: Acute Plan to address problem: On Lovenox and GI prophylaxis
[2018-12-09] MEDS ORDERED: PROAIR IH PRN (00:30)
[2018-12-09] MEDS ORDERED: TYLENOL PO PRN (00:31)
[2018-12-09] MEDS ORDERED: PROVENTIL IH PRN (00:31)
[2018-12-09] MEDS ORDERED: DILAUDID IV PRN (00:31)
[2018-12-09] MEDS ORDERED: ZOFRAN IV PRN (00:31)
[2018-12-09] MEDS ORDERED: TYLENOL PR ONE ×3 (00:42→09:44)
[2018-12-09] MEDS ORDERED: MAXIPIME/NS 2 GM/100 ML 2 GM/100 ML BAG IV SCH (01:00)
[2018-12-09] MEDS ORDERED: VANCOMYCIN PHARMACY TO DOSE IV SCH (01:00)
[2018-12-09] MEDS ORDERED: SOLU-Medrol ONE ×2 (01:28→09:29)
[2018-12-09] MEDS: SOLU-Medrol IV SCH ×2 (01:28→09:39)
--- NOTE | 2018-12-09 03:24 | XRay Report ---
PROCEDURE: XR CHEST 1V AP TECHNIQUE: Chest radiograph single view. HISTORY: follow up respiratory failure COMPARISONS: None . FINDINGS: Heart: Normal. Mediastinum/Vessels: There is a cardiac pacemaker with the battery in the left chest wall. Lungs/Pleural space: Mild atelectasis left lower lung. Slight vascular congestion.. Bony thorax: No acute osseous abnormality. Life support devices: The endotracheal tube ends 2 cm above the prashant.. IMPRESSION: Mild atelectasis left lower lung. Mild vascular congestion. Endotracheal tube is properl y positioned.. This document is electronically signed by Yanet Nieves DO., December 09 2018 03:21:51 AM ET
[2018-12-09] MEDS ORDERED: SODIUM BICARBONATE FEEDTUBE PRN (04:05)
[2018-12-09] MEDS ORDERED: PANCREAZE DR 10,500 UNIT FEEDTUBE PRN (04:05)
[2018-12-09] MEDS ORDERED: SIMPLE SYRUP FEEDTUBE PRN ×2 (04:05)
[2018-12-09] MEDS: TYLENOL PR PRN ×2 (05:00→10:00)
[2018-12-09] MEDS ORDERED: KCL 10MEQ/100ML 10 MEQ/100 ML BAG IV ONE (05:30)
[2018-12-09] MEDS ORDERED: NACL 0.9% 1000 ML 1,000 ML ONE ×2 (05:30→13:17)
[2018-12-09] MEDS: NACL 0.9% 1000 ML 1,000 ML IV SCH ×3 (05:44→21:25)
[2018-12-09 05:56] LABS: Hemoglobin 11.9 gm/dl (10.1-14.3); Mean Corpuscular HGB Conc 33 % (30-34); Mean Corpuscular Volume 75 fl (79-97); Red Blood Count 4.82 M/mm3 (3.65-5.03)
[2018-12-09 05:58] LABS: Red Cell Distribution Width 20.4 % (13.2-15.2)
[2018-12-09 06:11] LABS: Albumin 2.4 g/dL (3.9-5); Calcium 7.9 mg/dL (8.4-10.2)
[2018-12-09] MEDS: KCL 10MEQ/100ML 10 MEQ/100 ML BAG IV SCH ×2 (06:22→07:35)
[2018-12-09 06:33] LABS: Anisocytosis 1+; Band Neutrophils # (Manual) 2.5 K/mm3; Basophils % (Manual) 0 % (0.0-1.8); Eosinophils % (Manual) 0 % (0.0-4.3); Hypochromasia 1+; Platelet Estimate Consistent w Auto; Schistocytes 1+; Target Cells Rare; Total Cells Counted 100
[2018-12-09] MEDS ORDERED: DUONEB *Not for PRN Use IH ONE ×2 (07:49→14:23)
[2018-12-09] MEDS: DUONEB *Not for PRN Use IH SCH ×4 (08:27→20:15)
[2018-12-09] MEDS ORDERED: PEPCID IV ONE (09:29)
[2018-12-09] MEDS: CORTISPORIN AU SCH ×3 (09:38→21:26)
[2018-12-09] MEDS: PEPCID IV SCH (09:39)
[2018-12-09] MEDS: SODIUM CHLORIDE FLUSH SYRINGE 10 ML IV SCH ×2 (09:39→21:29)
[2018-12-09] MEDS ORDERED: MAXIPIME/NS 2 GM/100 ML 2 GM/100 ML BAG IV ONE (09:44)
[2018-12-09] MEDS ORDERED: PEPCID IV SCH (10:00)
[2018-12-09] MEDS: MAXIPIME/NS 2 GM/100 ML 2 GM/100 ML BAG IV SCH (10:00)
--- NOTE | 2018-12-09 10:00 | Consultation ---
History of Present Illness Consult date: 12/09/18 Requesting physician: ALEX REBOLLAR History of present illness: 88 y/o female, brought in by EMS for altered mental state. patient was being bagged on arrival and ED physician elected to intubate. No blood gas prior to intubation. Patient also became hypotensive and central line placed by ED physician as well. Pulmonary consulted to help with vent management and concern for sepsis of unknown etiology. Past History Past Medical History: other (unable to obtain) Past Surgical History: Other (unable to obtain) Social history: other (unable to obtain) Family history: other (unable to obtain) Medications and Allergies Allergies Allergy/AdvReac Type Severity Reaction Status Date / Time Penicillins Allergy Hives Verified 12/08/18 13:13 Home Medications Medication Instructions Recorded Confirmed Last Taken Type ALBUTEROL Inhaler (OR & NICU) 2 puff IH QID PRN #1 inhalation 12/21/16 12/08/18 Unknown Rx [Proair] Albuterol Sulfate [Albuterol 0.63% 0.63 mg IH TID PRN #90 ml 12/21/16 12/08/18 Unknown Rx NEBS] Amlodipine Besylate [Norvasc] 10 mg PO DAILY #90 tablet 12/21/16 12/08/18 Unknown Rx AtorvaSTATin [Lipitor] 20 mg PO QHS #90 tablet 12/21/16 12/08/18 Unknown Rx Hydralazine HCl [Apresoline TAB] 50 mg PO TID #90 tablet 12/21/16 12/08/18 Unknown Rx Metoprolol [Lopressor TAB] 25 mg PO BID #90 tablet 12/21/16 12/08/18 Unknown Rx Promethazine /Codeine 5 ml PO Q6H PRN #100 ml 12/21/16 12/08/18 Unknown Rx [Phenergan/Codeine 6.25-10 mg/5 ml] Active Meds: Active Medications Acetaminophen (Tylenol) 650 mg SC Q4H PRN PRN Reason: Pain MILD(1-3)/Fever >100.5/TURNER Last Admin: 12/09/18 05:00 Dose: 650 mg Documented by: Albuterol (Proventil) 2.5 mg IH Q4HRT PRN PRN Reason: Shortness Of Breath Albuterol/Ipratropium (Duoneb *Not For Prn Use*) 1 ampul IH Q6HRT [facility] Last Admin: 12/09/18 08:27 Dose: 1 ampul Documented by: Lipase/Protease/Amylase (Shakir Dr 10,500 Unit) 1 each FEEDTUBE PRN PRN PRN Reason: For Clogged Feeding Tube Enoxaparin Sodium (Lovenox) 30 mg SUB-Q QDAY@2200 KOLE Famotidine (Pepcid) 20 mg IV DAILY [facility] Last Admin: 12/09/18 09:39 Dose: 20 mg Documented by: Fentanyl (Sublimaze) 50 mcg IV Q10MIN PRN PRN Reason: ANALGESIA Hydromorphone HCl (Dilaudid) 0.25 mg IV Q3H PRN PRN Reason: Pain, Moderate (4-6) Hydrophilic Ointment (Vaseline Lip Therapy) 1 applic TP Q2HR PRN PRN Reason: Dry Lips Norepinephrine (Levophed Drip 4 Mg/Ns 250 Ml) 4 mg in 250 mls @ 7.5 mls/hr IV TITR [facility]; Protocol Last Titration: 12/08/18 20:00 Dose: 0 mcg/min, 0 mls/hr Documented by: Fentanyl Citrate (Fentanyl Drip Premix) 2,000 mcg in 100 mls @ 2.495 mls/hr IV TITR [facility]; Protocol Cefepime HCl (Maxipime/Ns 2 Gm/100 Ml) 2 gm in 100 mls @ 200 mls/hr IV Q24HR KOLE; Protocol Sodium Chloride (Nacl 0.9% 1000 Ml) 1,000 mls @ 125 mls/hr IV DIRECT [facility] Last Admin: 12/09/18 05:44 Dose: 125 mls/hr Documented by: Methylprednisolone Sodium Succinate (Solu-Medrol) 125 mg IV Q8H [facility] Last Admin: 12/09/18 09:39 Dose: 125 mg Documented by: Multi-Ingred Cream/Lotion/Oil/Oint (Artificial Tears Ophth Oint) 1 applic OU Q4HR PRN PRN Reason: Dry Eye(s) Neomycin/Polymyxin/Hydrocortisone (Cortisporin) 4 drops AU TID [facility] Last Admin: 12/09/18 09:38 Dose: Not Given Documented by: Ondansetron HCl (Zofran) 4 mg IV Q8H PRN PRN Reason: Nausea And Vomiting Pneumococcal Polyvalent Vaccine (Pneumovax 23) 0.5 ml IM .ONCE ONE Stop: 12/09/18 12:01 Simple Syrup (Simple Syrup) 15 ml FEEDTUBE PRN PRN PRN Reason: Hypoglycemia Simple Syrup (Simple Syrup) 30 ml FEEDTUBE PRN PRN PRN Reason: Hypoglycemia Sodium Bicarbonate (Sodium Bicarbonate) 325 mg FEEDTUBE PRN PRN PRN Reason: For Clogged Feeding Tube Sodium Chloride (Sodium Chloride Flush Syringe 10 Ml) 10 ml IV BID KOLE Last Admin: 12/09/18 09:39 Dose: 10 ml Documented by: Sodium Chloride (Sodium Chloride Flush Syringe 10 Ml) 10 ml IV PRN PRN PRN Reason: LINE FLUSH Review of Systems ROS unobtainable: due to endotracheal tube, due to mental status Physical Examination Vital signs: Vital Signs Pulse Resp 95 H 14 12/08/18 12:50 12/08/18 12:50 Results - Laboratory Findings CBC and BMP: 12/09/18 05:36 12/09/18 05:36 ABG POC ABG pH 7.308 (7.35-7.45) L 12/09/18 05:43 POC ABG pCO2 38.3 (35-45) 12/09/18 05:43 POC ABG pO2 183 (80-105) H 12/09/18 05:43 POC ABG HCO3 19.2 12/09/18 05:43 POC ABG Total CO2 20 12/09/18 05:43 POC ABG O2 Sat 100 12/09/18 05:43 PT/INR, D-dimer PT 20.5 Sec. (12.2-14.9) H 12/08/18 14:29 INR 1.64 (0.87-1.13) H 12/08/18 14:29 Abnormal lab findings: Abnormal Labs 12/08/18 12/08/18 12/08/18 12:58 13:40 13:40 WBC RBC Hgb Hct MCV MCH RDW Plt Count Seg Neuts % (Manual) Lymphocytes % (Manual) Seg Neutrophils # Man Lymphocytes # (Manual) PT INR POC ABG pH POC ABG pCO2 POC ABG pO2 Potassium Chloride Carbon Dioxide BUN Creatinine Glucose POC Glucose 143 H Lactic Acid Calcium Total Bilirubin AST Total Creatine Kinase Total Protein Albumin Urine WBC (Auto) 157.0 H Crossmatch See Detail 12/08/18 12/08/18 12/08/18 13:40 13:40 13:40 WBC RBC 3.06 L Hgb 6.8 L Hct 21.1 L MCV 69 L MCH 22 L RDW 16.2 H Plt Count 56 L Seg Neuts % (Manual) Lymphocytes % (Manual) 2.0 L Seg Neutrophils # Man Lymphocytes # (Manual) 0.2 L PT INR POC ABG pH POC ABG pCO2 POC ABG pO2 Potassium 3.2 L Chloride Carbon Dioxide 18 L BUN 64 H Creatinine 1.5 H Glucose 145 H POC Glucose Lactic Acid 4.00 H* Calcium 7.7 L Total Bilirubin AST Total Creatine Kinase 258 H Total Protein 4.6 L Albumin 1.8 L Urine WBC (Auto) Crossmatch 12/08/18 12/08/18 12/08/18 14:29 15:21 16:06 WBC RBC Hgb Hct MCV MCH RDW Plt Count Seg Neuts % (Manual) Lymphocytes % (Manual) Seg Neutrophils # Man Lymphocytes # (Manual) PT 20.5 H INR 1.64 H POC ABG pH POC ABG pCO2 34.2 L POC ABG pO2 465 H Potassium Chloride Carbon Dioxide BUN Creatinine Glucose POC Glucose Lactic Acid 3.00 H* Calcium Total Bilirubin AST Total Creatine Kinase Total Protein Albumin Urine WBC (Auto) Crossmatch 12/09/18 12/09/18 12/09/18 02:31 05:36 05:36 WBC 14.5 H RBC Hgb Hct MCV 75 L MCH 25 L RDW 20.4 H Plt Count Seg Neuts % (Manual) 81.0 H Lymphocytes % (Manual) 1.0 L Seg Neutrophils # Man 11.7 H Lymphocytes # (Manual) 0.1 L PT INR POC ABG pH POC ABG pCO2 POC ABG pO2 Potassium Chloride 107.6 H Carbon Dioxide 18 L BUN 75 H Creatinine 1.9 H Glucose 136 H POC Glucose 152 H Lactic Acid Calcium 7.9 L Total Bilirubin 1.60 H AST 44 H Total Creatine Kinase Total Protein 5.2 L Albumin 2.4 L Urine WBC (Auto) Crossmatch 12/09/18 05:43 WBC RBC Hgb Hct MCV MCH RDW Plt Count Seg Neuts % (Manual) Lymphocytes % (Manual) Seg Neutrophils # Man Lymphocytes # (Manual) PT INR POC ABG pH 7.308 L POC ABG pCO2 POC ABG pO2 183 H Potassium Chloride Carbon Dioxide BUN Creatinine Glucose POC Glucose Lactic Acid Calcium Total Bilirubin AST Total Creatine Kinase Total Protein Albumin Urine WBC (Auto) Crossmatch - Diagnostic Findings Chest x-ray: image reviewed Assessment and Plan 88 y/o female with acute respiratory failure, altered mental state, presumptive acute renal failure and hypotension with thrombocytopenia and dirty urine analysis. 1. Minimal vent settings. Continue current support. 2. Stopped all ordered sedation and pain medication 3. Agree with abx therapy 4. Suggest sending urine sodium, urine cr and obtaining renal ultrasound. Pending those results, then renal consult maybe warranted 5. Suggest holding DVT prophylaxis with low platelets 6. Follow up urine cultures 7. May need neuro eval
[2018-12-09] MEDS ORDERED: NORMODYNE IV ONE ×3 (10:14→16:28)
--- NOTE | 2018-12-09 10:37 | Progress Note ---
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 No tamponade. cardology Coffe ground contents from NG aspirate Protonix drip Consult GI Monitor H/H MARYANN. Monitor BMP May consult nephrology if worsens Anemia s/p 2 Units PRBC transfused Hypertension Diabetes Full code status. History Interval history: Patient with sepsis, acute resp failure,intubated Black gastric aspirate Hospitalist Physical - Physical exam Narrative exam: GEN: Intubated, On vent, not in acute distress HEENT: Normocephalic, atraumatic, Neck: supple, No JVD Lungs: Clear to auscultation bilaterally, no wheeze Abd:soft, non tender, non distended, normal bowel sounds Ext: No edema, no clubbing, no cyanosis Neuro: Intubated Skin:No rash - Constitutional Vitals: Temp Pulse Resp BP Pulse Ox 102.0 F H 102 H 17 178/73 100 12/09/18 10:00 12/09/18 10:31 12/09/18 10:30 12/09/18 10:31 12/09/18 10:30 General appearance: Present: well-nourished Results - Labs CBC & Chem 7: 12/10/18 04:38 12/10/18 04:38 Labs: Laboratory Last Values WBC 14.5 K/mm3 (4.5-11.0) H 12/09/18 05:36 RBC 4.82 M/mm3 (3.65-5.03) 12/09/18 05:36 Hgb 11.9 gm/dl (10.1-14.3) D 12/09/18 05:36 Hct 36.0 % (30.3-42.9) D 12/09/18 05:36 MCV 75 fl (79-97) L 12/09/18 05:36 MCH 25 pg (28-32) L 12/09/18 05:36 MCHC 33 % (30-34) 12/09/18 05:36 RDW 20.4 % (13.2-15.2) H 12/09/18 05:36 Plt Count 56 K/mm3 (140-440) L 12/08/18 13:40 Add Manual Diff Complete 12/09/18 05:36 Total Counted 100 12/09/18 05:36 Seg Neutrophils % Washer Cutter 12/09/18 05:36 Seg Neuts % (Manual) 81.0 % (40.0-70.0) H 12/09/18 05:36 Band Neutrophils % 17.0 % 12/09/18 05:36 Lymphocytes % (Manual) 1.0 % (13.4-35.0) L 12/09/18 05:36 Reactive Lymphs % (Man) 0 % 12/09/18 05:36 Monocytes % (Manual) 1.0 % (0.0-7.3) 12/09/18 05:36 Eosinophils % (Manual) 0 % (0.0-4.3) 12/09/18 05:36 Basophils % (Manual) 0 % (0.0-1.8) 12/09/18 05:36 Metamyelocytes % 0 % 12/09/18 05:36 Myelocytes % 0 % 12/09/18 05:36 Promyelocytes % 0 % 12/09/18 05:36 Blast Cells % 0 % 12/09/18 05:36 Nucleated RBC % Not Reportable 12/09/18 05:36 Seg Neutrophils # Man 11.7 K/mm3 (1.8-7.7) H 12/09/18 05:36 Band Neutrophils # 2.5 K/mm3 12/09/18 05:36 Lymphocytes # (Manual) 0.1 K/mm3 (1.2-5.4) L 12/09/18 05:36 Abs React Lymphs (Man) 0.0 K/mm3 12/09/18 05:36 Monocytes # (Manual) 0.1 K/mm3 (0.0-0.8) 12/09/18 05:36 Eosinophils # (Manual) 0.0 K/mm3 (0.0-0.4) 12/09/18 05:36 Basophils # (Manual) 0.0 K/mm3 (0.0-0.1) 12/09/18 05:36 Metamyelocytes # 0.0 K/mm3 12/09/18 05:36 Myelocytes # 0.0 K/mm3 12/09/18 05:36 Promyelocytes # 0.0 K/mm3 12/09/18 05:36 Blast Cells # 0.0 K/mm3 12/09/18 05:36 WBC Morphology Not Reportable 12/09/18 05:36 Hypersegmented Neuts Not Reportable 12/09/18 05:36 Hyposegmented Neuts Not Reportable 12/09/18 05:36 Hypogranular Neuts Not Reportable 12/09/18 05:36 Smudge Cells Not Reportable 12/09/18 05:36 Toxic Granulation Not Reportable 12/09/18 05:36 Toxic Vacuolation Not Reportable 12/09/18 05:36 Dohle Bodies Not Reportable 12/09/18 05:36 Pelger-Huet Anomaly Not Reportable 12/09/18 05:36 Mark Rods Not Reportable 12/09/18 05:36 Platelet Estimate Consistent w auto 12/09/18 05:36 Clumped Platelets Not Reportable 12/09/18 05:36 Plt Clumps, EDTA Not Reportable 12/09/18 05:36 Large Platelets Not Reportable 12/09/18 05:36 Giant Platelets Not Reportable 12/09/18 05:36 Platelet Satelliting Not Reportable 12/09/18 05:36 Plt Morphology Comment Not Reportable 12/09/18 05:36 RBC Morphology Not Reportable 12/09/18 05:36 Dimorphic RBCs Not Reportable 12/09/18 05:36 Polychromasia Not Reportable 12/09/18 05:36 Hypochromasia 1+ 12/09/18 05:36 Poikilocytosis Not Reportable 12/09/18 05:36 Anisocytosis 1+ 12/09/18 05:36 Microcytosis Not Reportable 12/09/18 05:36 Macrocytosis Not Reportable 12/09/18 05:36 Spherocytes Not Reportable 12/09/18 05:36 Pappenheimer Bodies Not Reportable 12/09/18 05:36 Sickle Cells Not Reportable 12/09/18 05:36 Target Cells Rare 12/09/18 05:36 Tear Drop Cells Not Reportable 12/09/18 05:36 Ovalocytes Not Reportable 12/09/18 05:36 Helmet Cells Not Reportable 12/09/18 05:[address] Bodies Not Reportable 12/09/18 05:36 [place] Rings Not Reportable 12/09/18 05:36 Aneesh Cells Not Reportable 12/09/18 05:36 Bite Cells Not Reportable 12/09/18 05:36 Crenated Cell Not Reportable 12/09/18 05:36 Elliptocytes Not Reportable 12/09/18 05:36 Acanthocytes (Spur) 2+ 12/09/18 05:36 Rouleaux Not Reportable 12/09/18 05:36 Hemoglobin C Crystals Not Reportable 12/09/18 05:36 Schistocytes 1+ 12/09/18 05:36 Malaria parasites Not Reportable 12/09/18 05:36 Stef Bodies Not Reportable 12/09/18 05:36 Hem Pathologist Commnt No 12/09/18 05:36 PT 20.5 Sec. (12.2-14.9) H 12/08/18 14:29 INR 1.64 (0.87-1.13) H 12/08/18 14:29 APTT 30.0 Sec. (24.2-36.6) 12/08/18 13:40 POC ABG pH 7.308 (7.35-7.45) L 12/09/18 05:43 POC ABG pCO2 38.3 (35-45) 12/09/18 05:43 POC ABG pO2 183 (80-105) H 12/09/18 05:43 POC ABG HCO3 19.2 12/09/18 05:43 POC ABG Total CO2 20 12/09/18 05:43 POC ABG O2 Sat 100 12/09/18 05:43 POC ABG Base Excess -7 12/09/18 05:43 FiO2 50 % 12/09/18 05:43 Sodium 141 mmol/L (137-145) 12/09/18 05:36 Potassium 4.7 mmol/L (3.6-5.0) D 12/09/18 05:36 Chloride 107.6 mmol/L (98-107) H 12/09/18 05:36 Carbon Dioxide 18 mmol/L (22-30) L 12/09/18 05:36 Anion Gap 20 mmol/L 12/09/18 05:36 BUN 75 mg/dL (7-17) H 12/09/18 05:36 Creatinine 1.9 mg/dL (0.7-1.2) H 12/09/18 05:36 Estimated GFR 30 ml/min 12/09/18 05:36 BUN/Creatinine Ratio 39 % 12/09/18 05:36 Glucose 136 mg/dL (65-100) H 12/09/18 05:36 POC Glucose 152 (70-105) H 12/09/18 02:31 Lactic Acid 3.00 mmol/L (0.7-2.0) H* 12/08/18 15:21 Calcium 7.9 mg/dL (8.4-10.2) L 12/09/18 05:36 Total Bilirubin 1.60 mg/dL (0.1-1.2) H 12/09/18 05:36 AST 44 units/L (5-40) H 12/09/18 05:36 ALT 39 units/L (7-56) 12/09/18 05:36 Alkaline Phosphatase 113 units/L (35-129) 12/09/18 05:36 Total Creatine Kinase 258 units/L (30-135) H 12/08/18 13:40 Total Protein 5.2 g/dL (6.3-8.2) L 12/09/18 05:36 Albumin 2.4 g/dL (3.9-5) L 12/09/18 05:36 Albumin/Globulin Ratio 0.9 % 12/09/18 05:36 Urine Color Yolie (Yellow) 12/08/18 13:40 Urine Turbidity Cloudy (Clear) 12/08/18 13:40 Urine pH 7.0 (5.0-7.0) 12/08/18 13:40 Ur Specific [place] 1.015 (1.003-1.030) 12/08/18 13:40 Urine Protein 100 mg/dl mg/dL (Negative) 12/08/18 13:40 Urine Glucose (UA) Neg mg/dL (Negative) 12/08/18 13:40 Urine Ketones Neg mg/dL (Negative) 12/08/18 13:40 Urine Blood Sm (Negative) 12/08/18 13:40 Urine Nitrite Neg (Negative) 12/08/18 13:40 Urine Bilirubin Neg (Negative) 12/08/18 13:40 Urine Urobilinogen 2.0 mg/dL (<2.0) 12/08/18 13:40 Ur Leukocyte Esterase Mod (Negative) 12/08/18 13:40 Urine WBC (Auto) 157.0 /HPF (0.0-6.0) H 12/08/18 13:40 Urine RBC (Auto) 8.0 /HPF (0.0-6.0) 12/08/18 13:40 U Epithel Cells (Auto) 1.0 /HPF (0-13.0) 12/08/18 13:40 Urine Bacteria (Auto) 4+ /HPF (Negative) 12/08/18 13:40 Urine Mucus 2+ /HPF 12/08/18 13:40 Blood Type B POSITIVE 12/08/18 13:40 Antibody Screen Negative 12/08/18 13:40 Crossmatch See Detail 12/08/18 13:40
[2018-12-09 11:18] LABS: Platelet Count 68 K/mm3 (140-440)
--- NOTE | 2018-12-09 11:48 | Event Note ---
Date: 12/09/18 Full cardiac consult dictated. .
[2018-12-09] MEDS ORDERED: PNEUMOVAX 23 IM ONE (12:00)
[2018-12-09] MEDS ORDERED: AFLURIA QUAD 2018-2019 SYRINGE IM ONE (12:00)
[2018-12-09] MEDS: PROTONIX 80 MG in NACL 0.9% 100 ML IV SCH ×2 (12:37→23:00)
--- NOTE | 2018-12-09 13:29 | Gastroenterology Consultation ---
<SHADE DAMON - Last Filed: 12/09/18 13:54> History of Present Illness - Reason for Consult Consult date: 12/09/18 coffee-ground emesis Requesting physician: MARY CARMEN REAL - History of Present Illness Patient is a 88 y/o female with PMH of CVA, DM, HTN, and chronic anemia who was brought to ED by EMS for AMS after being found unresponsive by family at home. Upon arrival, she was found to be in acute respiratory failure requiring bag valve mask ventilation and hypotensive. Currently patient is unresponsive on vent, waiting for ICU bed being treated for respiratory failure, sepsis, UTI, anemia, and pericardial effusion shown on chest CT. Head CT showed prior infarction and sinus disease. Cardiology and pulmonary are following. GI has been consulted for coffee-ground drainage from OG tube. Patient unable to provide history and no family at bedside this am. History obtained via chart review. Upon exam, there is no evidence of hematemesis, melena, hematochezia, abd pain or N/V. Rectal revealed brown stool. According to chart review, patient has a hx of chronic anemia requiring previous blood transfusions, with baseline H/H unknown. Prior EGD/colonoscopy unknown. Had been on Plavix in the past but not currently on home medication list. Past History Past Medical History: other (as per HPI) Past Surgical History: hysterectomy, Other ( colon polyps removed, pacemaker) Social history: denies: smoking, alcohol abuse Family history: hypertension Medications and Allergies Allergies Allergy/AdvReac Type Severity Reaction Status Date / Time Penicillins Allergy Hives Verified 12/08/18 13:13 Home Medications Medication Instructions Recorded Confirmed Last Taken Type ALBUTEROL Inhaler (OR & NICU) 2 puff IH QID PRN #1 inhalation 12/21/16 12/08/18 Unknown Rx [Proair] Albuterol Sulfate [Albuterol 0.63% 0.63 mg IH TID PRN #90 ml 12/21/16 12/08/18 Unknown Rx NEBS] RX: Amlodipine Besylate [Norvasc] 10 mg PO DAILY #90 tablet 12/21/16 12/08/18 Unknown Rx RX: AtorvaSTATin [Lipitor] 20 mg PO QHS #90 tablet 12/21/16 12/08/18 Unknown Rx RX: Hydralazine HCl [Apresoline 50 mg PO TID #90 tablet 12/21/16 12/08/18 Unknown Rx TAB] RX: Metoprolol [Lopressor TAB] 25 mg PO BID #90 tablet 12/21/16 12/08/18 Unknown Rx RX: Promethazine /Codeine 5 ml PO Q6H PRN #100 ml 12/21/16 12/08/18 Unknown Rx [Phenergan/Codeine 6.25-10 mg/5 ml] Active Meds: Active Medications Acetaminophen (Tylenol) 650 mg [place] Q4H PRN PRN Reason: Pain MILD(1-3)/Fever >100.5/TURNER Last Admin: 12/09/18 10:00 Dose: 650 mg Documented by: Albuterol (Proventil) 2.5 mg IH Q4HRT PRN PRN Reason: Shortness Of Breath Albuterol/Ipratropium (Duoneb *Not For Prn Use*) 1 ampul IH Q6HRT [facility] Last Admin: 12/09/18 08:27 Dose: 1 ampul Documented by: Lipase/Protease/Amylase (Pancreaze Dr 10,500 Unit) 1 each FEEDTUBE PRN PRN PRN Reason: For Clogged Feeding Tube Enoxaparin Sodium (Lovenox) 30 mg SUB-Q QDAY@2200 [facility] Famotidine (Pepcid) 20 mg IV DAILY [facility] Last Admin: 12/09/18 09:39 Dose: 20 mg Documented by: Hydrophilic Ointment (Vaseline Lip Therapy) 1 applic TP Q2HR PRN PRN Reason: Dry Lips Norepinephrine (Levophed Drip 4 Mg/Ns 250 Ml) 4 mg in 250 mls @ 7.5 mls/hr IV TITR [facility]; Protocol Last Titration: 12/08/18 20:00 Dose: 0 mcg/min, 0 mls/hr Documented by: Cefepime HCl (Maxipime/Ns 2 Gm/100 Ml) 2 gm in 100 mls @ 200 mls/hr IV Q24HR [facility]; Protocol Last Admin: 12/09/18 10:00 Dose: 200 mls/hr Documented by: Sodium Chloride (Nacl 0.9% 1000 Ml) 1,000 mls @ 125 mls/hr IV DIRECT [facility] Last Admin: 12/09/18 13:18 Dose: 125 mls/hr Documented by: Pantoprazole Sodium 80 mg/ (Sodium Chloride) 100 mls @ 10 mls/hr IV DIRECT [facility] Last Admin: 12/09/18 12:37 Dose: 8 mg/hr, 10 mls/hr Documented by: Multi-Ingred Cream/Lotion/Oil/Oint (Artificial Tears Ophth Oint) 1 applic OU Q4HR PRN PRN Reason: Dry Eye(s) Neomycin/Polymyxin/Hydrocortisone (Cortisporin) 4 drops AU TID [facility] Last Admin: 12/09/18 09:38 Dose: Not Given Documented by: Ondansetron HCl (Zofran) 4 mg IV Q8H PRN PRN Reason: Nausea And Vomiting Pneumococcal Polyvalent Vaccine (Pneumovax 23) 0.5 ml IM .ONCE ONE Stop: 12/11/18 12:01 Simple Syrup (Simple Syrup) 15 ml FEEDTUBE PRN PRN PRN Reason: Hypoglycemia Simple Syrup (Simple Syrup) 30 ml FEEDTUBE PRN PRN PRN Reason: Hypoglycemia Sodium Bicarbonate (Sodium Bicarbonate) 325 mg FEEDTUBE PRN PRN PRN Reason: For Clogged Feeding Tube Sodium Chloride (Sodium Chloride Flush Syringe 10 Ml) 10 ml IV BID [facility] Last Admin: 12/09/18 09:39 Dose: 10 ml Documented by: Sodium Chloride (Sodium Chloride Flush Syringe 10 Ml) 10 ml IV PRN PRN PRN Reason: LINE FLUSH medications reviewed/updated as required Review of Systems - Review of Systems ROS unobtainable: due to endotracheal tube, due to mental status Exam - Constitutional Vital Signs: Temp Pulse Resp BP Pulse Ox 98.7 F 82 8 L 147/61 100 12/09/18 12:58 12/09/18 13:00 12/09/18 12:30 12/09/18 13:00 12/09/18 13:00 General appearance: other (unresponsive on vent) - EENT ENT: other (+OG tube with coffee-ground drainage) - Respiratory Respiratory: bilateral: diminished - Cardiovascular Rhythm: regular - Gastrointestinal General gastrointestinal: Present: soft, non-distended, normal bowel sounds Rectal Exam: stool brown (laser technician present during exam-Traci JACKSON) - Labs CBC & Chem 7: 12/09/18 05:36 12/09/18 05:36 Lab Results: Laboratory Results - last 24 hr 12/08/18 12/08/1812/08/19 12:58 13:40 13:40 WBC RBC Hgb Hct MCV MCH MCHC RDW Plt Count Add Manual Diff Total Counted Seg Neutrophils % Seg Neuts % (Manual) Band Neutrophils % Lymphocytes % (Manual) Reactive Lymphs % (Man) Monocytes % (Manual) Eosinophils % (Manual) Basophils % (Manual) Metamyelocytes % Myelocytes % Promyelocytes % Blast Cells % Nucleated RBC % Seg Neutrophils # Man Band Neutrophils # Lymphocytes # (Manual) Abs React Lymphs (Man) Monocytes # (Manual) Eosinophils # (Manual) Basophils # (Manual) Metamyelocytes # Myelocytes # Promyelocytes # Blast Cells # WBC Morphology Hypersegmented Neuts Hyposegmented Neuts Hypogranular Neuts Smudge Cells Toxic Granulation Toxic Vacuolation Dohle Bodies Pelger-Huet Anomaly Mark Rods Platelet Estimate Clumped Platelets Plt Clumps, EDTA Large Platelets Giant Platelets Platelet Satelliting Plt Morphology Comment RBC Morphology Dimorphic RBCs Polychromasia Hypochromasia Poikilocytosis Anisocytosis Microcytosis Macrocytosis Spherocytes Pappenheimer Bodies Sickle Cells Target Cells Tear Drop Cells Ovalocytes Helmet Cells [place] Bodies [place] Rings [place] Cells Bite Cells Crenated Cell Elliptocytes Acanthocytes (Spur) Rouleaux Hemoglobin C Crystals Schistocytes Malaria parasites Stef Bodies Hem Pathologist Commnt PT INR APTT POC ABG pH POC ABG pCO2 POC ABG pO2 POC ABG HCO3 POC ABG Total CO2 POC ABG O2 Sat POC ABG Base Excess FiO2 Sodium Potassium Chloride Carbon Dioxide Anion Gap BUN Creatinine Estimated GFR BUN/Creatinine Ratio Glucose POC Glucose 143 H Lactic Acid Calcium Total Bilirubin AST ALT Alkaline Phosphatase Total Creatine Kinase Total Protein Albumin Albumin/Globulin Ratio Urine Color Yolie Urine Turbidity Cloudy Urine pH 7.0 Ur Specific [place] 1.015 Urine Protein 100 mg/dl Urine Glucose (UA) Neg Urine Ketones Neg Urine Blood Sm Urine Nitrite Neg Urine Bilirubin Neg Urine Urobilinogen 2.0 Ur Leukocyte Esterase Mod Urine WBC (Auto) 157.0 H Urine RBC (Auto) 8.0 U Epithel Cells (Auto) 1.0 Urine Bacteria (Auto) 4+ Urine Mucus 2+ Blood Type B POSITIVE Antibody Screen Negative Crossmatch See Detail 12/08/18 12/08/18 12/08/18 13:40 13:40 13:40 WBC 7.8 RBC 3.06 L Hgb 6.8 L Hct 21.1 L MCV 69 L MCH 22 L MCHC 32 RDW 16.2 H Plt Count 56 L Add Manual Diff Complete Total Counted 100 Seg Neutrophils % Seg Neuts % (Manual) 49.0 Band Neutrophils % 45.0 Lymphocytes % (Manual) 2.0 L Reactive Lymphs % (Man) 1.0 Monocytes % (Manual) 3.0 Eosinophils % (Manual) 0 Basophils % (Manual) 0 Metamyelocytes % 0 Myelocytes % 0 Promyelocytes % 0 Blast Cells % 0 Nucleated RBC % Not Reportable Seg Neutrophils # Man 3.8 Band Neutrophils # 3.5 Lymphocytes # (Manual) 0.2 L Abs React Lymphs (Man) 0.1 Monocytes # (Manual) 0.2 Eosinophils # (Manual) 0.0 Basophils # (Manual) 0.0 Metamyelocytes # 0.0 Myelocytes # 0.0 Promyelocytes # 0.0 Blast Cells # 0.0 WBC Morphology Not Reportable Hypersegmented Neuts Not Reportable Hyposegmented Neuts Not Reportable Hypogranular Neuts Not Reportable Smudge Cells Not Reportable Toxic Granulation Not Reportable Toxic Vacuolation Not Reportable Dohle Bodies 1+ Pelger-Huet Anomaly Not Reportable Mark Rods Not Reportable Platelet Estimate Appears decreased Clumped Platelets Not Reportable Plt Clumps, EDTA Not Reportable Large Platelets Few Giant Platelets Few Platelet Satelliting Not Reportable Plt Morphology Comment Not Reportable RBC Morphology Not Reportable Dimorphic RBCs Not Reportable Polychromasia Not Reportable Hypochromasia 2+ Poikilocytosis 2+ Anisocytosis Not Reportable Microcytosis 2+ Macrocytosis Not Reportable Spherocytes Not Reportable Pappenheimer Bodies Not Reportable Sickle Cells Not Reportable Target Cells Few Tear Drop Cells Not Reportable Ovalocytes 1+ Helmet Cells Not Reportable [place] Bodies Not Reportable [place] Rings Not Reportable [place] Cells 2+ Bite Cells Not Reportable Crenated Cell Not Reportable Elliptocytes Not Reportable Acanthocytes (Spur) Not Reportable Rouleaux Not Reportable Hemoglobin C Crystals Not Reportable Schistocytes 1+ Malaria parasites Not Reportable Stef Bodies Not Reportable Hem Pathologist Commnt No PT INR APTT 30.0 POC ABG pH POC ABG pCO2 POC ABG pO2 POC ABG HCO3 POC ABG Total CO2 POC ABG O2 Sat POC ABG Base Excess FiO2 Sodium Potassium Chloride Carbon Dioxide Anion Gap BUN Creatinine Estimated GFR BUN/Creatinine Ratio Glucose POC Glucose Lactic Acid 4.00 H* Calcium Total Bilirubin AST ALT Alkaline Phosphatase Total Creatine Kinase Total Protein Albumin Albumin/Globulin Ratio Urine Color Urine Turbidity Urine pH Ur Specific [place] Urine Protein Urine Glucose (UA) Urine Ketones Urine Blood Urine Nitrite Urine Bilirubin Urine Urobilinogen Ur Leukocyte Esterase Urine WBC (Auto) Urine RBC (Auto) U Epithel Cells (Auto) Urine Bacteria (Auto) Urine Mucus Blood Type Antibody Screen Crossmatch 12/08/18 12/08/18 12/08/18 13:40 14:29 15:21 WBC RBC Hgb Hct MCV MCH MCHC RDW Plt Count Add Manual Diff Total Counted Seg Neutrophils % Seg Neuts % (Manual) Band Neutrophils % Lymphocytes % (Manual) Reactive Lymphs % (Man) Monocytes % (Manual) Eosinophils % (Manual) Basophils % (Manual) Metamyelocytes % Myelocytes % Promyelocytes % Blast Cells % Nucleated RBC % Seg Neutrophils # Man Band Neutrophils # Lymphocytes # (Manual) Abs React Lymphs (Man) Monocytes # (Manual) Eosinophils # (Manual) Basophils # (Manual) Metamyelocytes # Myelocytes # Promyelocytes # Blast Cells # WBC Morphology Hypersegmented Neuts Hyposegmented Neuts Hypogranular Neuts Smudge Cells Toxic Granulation Toxic Vacuolation Dohle Bodies Pelger-Huet Anomaly Mark Rods Platelet Estimate Clumped Platelets Plt Clumps, EDTA Large Platelets Giant Platelets Platelet Satelliting Plt Morphology Comment RBC Morphology Dimorphic RBCs Polychromasia Hypochromasia Poikilocytosis Anisocytosis Microcytosis Macrocytosis Spherocytes Pappenheimer Bodies Sickle Cells Target Cells Tear Drop Cells Ovalocytes Helmet Cells [place] Bodies [place] Rings Aneesh Cells Bite Cells Crenated Cell Elliptocytes Acanthocytes (Spur) Rouleaux Hemoglobin C Crystals Schistocytes Malaria parasites Stef Bodies Hem Pathologist Commnt PT 20.5 H INR 1.64 H APTT POC ABG pH POC ABG pCO2 POC ABG pO2 POC ABG HCO3 POC ABG Total CO2 POC ABG O2 Sat POC ABG Base Excess FiO2 Sodium 141 Potassium 3.2 L Chloride 105.8 Carbon Dioxide 18 L Anion Gap 20 BUN 64 H Creatinine 1.5 H Estimated GFR 40 BUN/Creatinine Ratio 43 Glucose 145 H POC Glucose Lactic Acid 3.00 H* Calcium 7.7 L Total Bilirubin 1.00 AST 28 ALT 28 Alkaline Phosphatase 88 Total Creatine Kinase 258 H Total Protein 4.6 L Albumin 1.8 L Albumin/Globulin Ratio 0.6 Urine Color Urine Turbidity Urine pH Ur Specific [place] Urine Protein Urine Glucose (UA) Urine Ketones Urine Blood Urine Nitrite Urine Bilirubin Urine Urobilinogen Ur Leukocyte Esterase Urine WBC (Auto) Urine RBC (Auto) U Epithel Cells (Auto) Urine Bacteria (Auto) Urine Mucus Blood Type Antibody Screen Crossmatch 12/08/18 12/09/18 12/09/18 16:06 02:31 05:36 WBC 14.5 H RBC 4.82 Hgb 11.9 D Hct 36.0 D MCV 75 L MCH 25 L MCHC 33 RDW 20.4 H Plt Count 68 L Add Manual Diff Complete Total Counted 100 Seg Neutrophils % Colon And Rectal Surgeon Seg Neuts % (Manual) 81.0 H Band Neutrophils % 17.0 Lymphocytes % (Manual) 1.0 L Reactive Lymphs % (Man) 0 Monocytes % (Manual) 1.0 Eosinophils % (Manual) 0 Basophils % (Manual) 0 Metamyelocytes % 0 Myelocytes % 0 Promyelocytes % 0 Blast Cells % 0 Nucleated RBC % Not Reportable Seg Neutrophils # Man 11.7 H Band Neutrophils # 2.5 Lymphocytes # (Manual) 0.1 L Abs React Lymphs (Man) 0.0 Monocytes # (Manual) 0.1 Eosinophils # (Manual) 0.0 Basophils # (Manual) 0.0 Metamyelocytes # 0.0 Myelocytes # 0.0 Promyelocytes # 0.0 Blast Cells # 0.0 WBC Morphology Not Reportable Hypersegmented Neuts Not Reportable Hyposegmented Neuts Not Reportable Hypogranular Neuts Not Reportable Smudge Cells Not Reportable Toxic Granulation Not Reportable Toxic Vacuolation Not Reportable Dohle Bodies Not Reportable Pelger-Huet Anomaly Not Reportable Mark Rods Not Reportable Platelet Estimate Consistent w auto Clumped Platelets Not Reportable Plt Clumps, EDTA Not Reportable Large Platelets Not Reportable Giant Platelets Not Reportable Platelet Satelliting Not Reportable Plt Morphology Comment Not Reportable RBC Morphology Not Reportable Dimorphic RBCs Not Reportable Polychromasia Not Reportable Hypochromasia 1+ Poikilocytosis Not Reportable Anisocytosis 1+ Microcytosis Not Reportable Macrocytosis Not Reportable Spherocytes Not Reportable Pappenheimer Bodies Not Reportable Sickle Cells Not Reportable Target Cells Rare Tear Drop Cells Not Reportable Ovalocytes Not Reportable Helmet Cells Not Reportable [place] Bodies Not Reportable [place] Rings Not Reportable [place] Cells Not Reportable Bite Cells Not Reportable Crenated Cell Not Reportable Elliptocytes Not Reportable Acanthocytes (Spur) 2+ Rouleaux Not Reportable Hemoglobin C Crystals Not Reportable Schistocytes 1+ Malaria parasites Not Reportable Stef Bodies Not Reportable Hem Pathologist Commnt No PT INR APTT POC ABG pH 7.375 POC ABG pCO2 34.2 L POC ABG pO2 465 H POC ABG HCO3 20.0 POC ABG Total CO2 21 POC ABG O2 Sat 100 POC ABG Base Excess -5 FiO2 100 Sodium Potassium Chloride Carbon Dioxide Anion Gap BUN Creatinine Estimated GFR BUN/Creatinine Ratio Glucose POC Glucose 152 H Lactic Acid Calcium Total Bilirubin AST ALT Alkaline Phosphatase Total Creatine Kinase Total Protein Albumin Albumin/Globulin Ratio Urine Color Urine Turbidity Urine pH Ur Specific [place] Urine Protein Urine Glucose (UA) Urine Ketones Urine Blood Urine Nitrite Urine Bilirubin Urine Urobilinogen Ur Leukocyte Esterase Urine WBC (Auto) Urine RBC (Auto) U Epithel Cells (Auto) Urine Bacteria (Auto) Urine Mucus Blood Type Antibody Screen Crossmatch 12/09/18 12/09/18 12/09/18 05:36 05:43 10:47 WBC RBC Hgb Hct MCV MCH MCHC RDW Plt Count Add Manual Diff Total Counted Seg Neutrophils % Seg Neuts % (Manual) Band Neutrophils % Lymphocytes % (Manual) Reactive Lymphs % (Man) Monocytes % (Manual) Eosinophils % (Manual) Basophils % (Manual) Metamyelocytes % Myelocytes % Promyelocytes % Blast Cells % Nucleated RBC % Seg Neutrophils # Man Band Neutrophils # Lymphocytes # (Manual) Abs React Lymphs (Man) Monocytes # (Manual) Eosinophils # (Manual) Basophils # (Manual) Metamyelocytes # Myelocytes # Promyelocytes # Blast Cells # WBC Morphology Hypersegmented Neuts Hyposegmented Neuts Hypogranular Neuts Smudge Cells Toxic Granulation Toxic Vacuolation Dohle Bodies Pelger-Huet Anomaly Mark Rods Platelet Estimate Clumped Platelets Plt Clumps, EDTA Large Platelets Giant Platelets Platelet Satelliting Plt Morphology Comment RBC Morphology Dimorphic RBCs Polychromasia Hypochromasia Poikilocytosis Anisocytosis Microcytosis Macrocytosis Spherocytes Pappenheimer Bodies Sickle Cells Target Cells Tear Drop Cells Ovalocytes Helmet Cells [place] Bodies [place] Rings Aneesh Cells Bite Cells Crenated Cell Elliptocytes Acanthocytes (Spur) Rouleaux Hemoglobin C Crystals Schistocytes Malaria parasites Stef Bodies Hem Pathologist Commnt PT INR APTT POC ABG pH 7.308 L POC ABG pCO2 38.3 POC ABG pO2 183 H POC ABG HCO3 19.2 POC ABG Total CO2 20 POC ABG O2 Sat 100 POC ABG Base Excess -7 FiO2 50 Sodium 141 Potassium 4.7 D Chloride 107.6 H Carbon Dioxide 18 L Anion Gap 20 BUN 75 H Creatinine 1.9 H Estimated GFR 30 BUN/Creatinine Ratio 39 Glucose 136 H POC Glucose 150 H Lactic Acid Calcium 7.9 L Total Bilirubin 1.60 H AST 44 H ALT 39 Alkaline Phosphatase 113 Total Creatine Kinase Total Protein 5.2 L Albumin 2.4 L Albumin/Globulin Ratio 0.9 Urine Color Urine Turbidity Urine pH Ur Specific [place] Urine Protein Urine Glucose (UA) Urine Ketones Urine Blood Urine Nitrite Urine Bilirubin Urine Urobilinogen Ur Leukocyte Esterase Urine WBC (Auto) Urine RBC (Auto) U Epithel Cells (Auto) Urine Bacteria (Auto) Urine Mucus Blood Type Antibody Screen Crossmatch Assessment and Plan 1.coffee ground emesis 2.H/o chronic anemia requiring previous blood transfusions -H/H 11.9/36.0-s/p transfusion 2 units PRBCs -continue to monitor H/H and transfuse as needed -coffee-ground color drainage noted from OG tube-no hematemeis, melena, or hematochezia. Rectal revealed brown stool. -prior GI workup for anemia unknown -etiology unclear-possible ulcer vs trauma vs other -no plans for scope at this unless overt bleeding develops (will consider based on progress once medically stable) -start on protonix drip -hold blood thinning medications -Keep NPO for now -continue supportive care -will follow 3.acute respiratory failure-on vent; pulmonary following 4.sepsis 5.UTI 6.pericardial effusion-cardiology following 7.H/o CVA 8.HTN 9.DM <PAUL HAWLEY - Last Filed: 12/09/18 14:07> Medications and Allergies Active Meds: Active Medications Acetaminophen (Tylenol) 650 mg OH Q4H PRN PRN Reason: Pain MILD(1-3)/Fever >100.5/TURNER Last Admin: 12/09/18 10:00 Dose: 650 mg Documented by: Albuterol (Proventil) 2.5 mg IH Q4HRT PRN PRN Reason: Shortness Of Breath Albuterol/Ipratropium (Duoneb *Not For Prn Use*) 1 ampul IH Q6HRT [facility] Last Admin: 12/09/18 08:27 Dose: 1 ampul Documented by: Lipase/Protease/Amylase (Pancreaze Dr 10,500 Unit) 1 each FEEDTUBE PRN PRN PRN Reason: For Clogged Feeding Tube Enoxaparin Sodium (Lovenox) 30 mg SUB-Q QDAY@2200 [facility] Famotidine (Pepcid) 20 mg IV DAILY [facility] Last Admin: 12/09/18 09:39 Dose: 20 mg Documented by: Hydrophilic Ointment (Vaseline Lip Therapy) 1 applic TP Q2HR PRN PRN Reason: Dry Lips Norepinephrine (Levophed Drip 4 Mg/Ns 250 Ml) 4 mg in 250 mls @ 7.5 mls/hr IV TITR [facility]; Protocol Last Titration: 12/08/18 20:00 Dose: 0 mcg/min, 0 mls/hr Documented by: Cefepime HCl (Maxipime/Ns 2 Gm/100 Ml) 2 gm in 100 mls @ 200 mls/hr IV Q24HR [facility]; Protocol Last Admin: 12/09/18 10:00 Dose: 200 mls/hr Documented by: Sodium Chloride (Nacl 0.9% 1000 Ml) 1,000 mls @ 125 mls/hr IV DIRECT [facility] Last Admin: 12/09/18 13:18 Dose: 125 mls/hr Documented by: Pantoprazole Sodium 80 mg/ (Sodium Chloride) 100 mls @ 10 mls/hr IV DIRECT [facility] Last Admin: 12/09/18 12:37 Dose: 8 mg/hr, 10 mls/hr Documented by: Multi-Ingred Cream/Lotion/Oil/Oint (Artificial Tears Ophth Oint) 1 applic OU Q4HR PRN PRN Reason: Dry Eye(s) Neomycin/Polymyxin/Hydrocortisone (Cortisporin) 4 drops AU TID [facility] Last Admin: 12/09/18 13:48 Dose: 4 drops Documented by: Ondansetron HCl (Zofran) 4 mg IV Q8H PRN PRN Reason: Nausea And Vomiting Pneumococcal Polyvalent Vaccine (Pneumovax 23) 0.5 ml IM .ONCE ONE Stop: 12/11/18 12:01 Simple Syrup (Simple Syrup) 15 ml FEEDTUBE PRN PRN PRN Reason: Hypoglycemia Simple Syrup (Simple Syrup) 30 ml FEEDTUBE PRN PRN PRN Reason: Hypoglycemia Sodium Bicarbonate (Sodium Bicarbonate) 325 mg FEEDTUBE PRN PRN PRN Reason: For Clogged Feeding Tube Sodium Chloride (Sodium Chloride Flush Syringe 10 Ml) 10 ml IV BID [facility] Last Admin: 12/09/18 09:39 Dose: 10 ml Documented by: Sodium Chloride (Sodium Chloride Flush Syringe 10 Ml) 10 ml IV PRN PRN PRN Reason: LINE FLUSH Exam - Constitutional Vital Signs: Temp Pulse Resp BP Pulse Ox 98.7 F 82 8 L 147/61 100 12/09/18 12:58 12/09/18 13:00 12/09/18 12:30 12/09/18 13:00 12/09/18 13:00 - Labs CBC & Chem 7: 12/09/18 05:36 12/09/18 05:36 Lab Results: Laboratory Results - last 24 hr 12/08/18 12/08/18 12/08/18 12:58 13:40 13:40 WBC RBC Hgb Hct MCV MCH MCHC RDW Plt Count Add Manual Diff Total Counted Seg Neutrophils % Seg Neuts % (Manual) Band Neutrophils % Lymphocytes % (Manual) Reactive Lymphs % (Man) Monocytes % (Manual) Eosinophils % (Manual) Basophils % (Manual) Metamyelocytes % Myelocytes % Promyelocytes % Blast Cells % Nucleated RBC % Seg Neutrophils # Man Band Neutrophils # Lymphocytes # (Manual) Abs React Lymphs (Man) Monocytes # (Manual) Eosinophils # (Manual) Basophils # (Manual) Metamyelocytes # Myelocytes # Promyelocytes # Blast Cells # WBC Morphology Hypersegmented Neuts Hyposegmented Neuts Hypogranular Neuts Smudge Cells Toxic Granulation Toxic Vacuolation Dohle Bodies Pelger-Huet Anomaly Mark Rods Platelet Estimate Clumped Platelets Plt Clumps, EDTA Large Platelets Giant Platelets Platelet Satelliting Plt Morphology Comment RBC Morphology Dimorphic RBCs Polychromasia Hypochromasia Poikilocytosis Anisocytosis Microcytosis Macrocytosis Spherocytes Pappenheimer Bodies Sickle Cells Target Cells Tear Drop Cells Ovalocytes Helmet Cells [place] Bodies [place] Rings [place] Cells Bite Cells Crenated Cell Elliptocytes Acanthocytes (Spur) Rouleaux Hemoglobin C Crystals Schistocytes Malaria parasites Stef Bodies Hem Pathologist Commnt PT INR APTT POC ABG pH POC ABG pCO2 POC ABG pO2 POC ABG HCO3 POC ABG Total CO2 POC ABG O2 Sat POC ABG Base Excess FiO2 Sodium Potassium Chloride Carbon Dioxide Anion Gap BUN Creatinine Estimated GFR BUN/Creatinine Ratio Glucose POC Glucose 143 H Lactic Acid Calcium Total Bilirubin AST ALT Alkaline Phosphatase Total Creatine Kinase Total Protein Albumin Albumin/Globulin Ratio Urine Color Yolie Urine Turbidity Cloudy Urine pH 7.0 Ur Specific [place] 1.015 Urine Protein 100 mg/dl Urine Glucose (UA) Neg Urine Ketones Neg Urine Blood Sm Urine Nitrite Neg Urine Bilirubin Neg Urine Urobilinogen 2.0 Ur Leukocyte Esterase Mod Urine WBC (Auto) 157.0 H Urine RBC (Auto) 8.0 U Epithel Cells (Auto) 1.0 Urine Bacteria (Auto) 4+ Urine Mucus 2+ Blood Type B POSITIVE Antibody Screen Negative Crossmatch See Detail 12/08/18 12/08/18 12/08/18 13:40 13:40 13:40 WBC 7.8 RBC 3.06 L Hgb 6.8 L Hct 21.1 L MCV 69 L MCH 22 L MCHC 32 RDW 16.2 H Plt Count 56 L Add Manual Diff Complete Total Counted 100 Seg Neutrophils % Seg Neuts % (Manual) 49.0 Band Neutrophils % 45.0 Lymphocytes % (Manual) 2.0 L Reactive Lymphs % (Man) 1.0 Monocytes % (Manual) 3.0 Eosinophils % (Manual) 0 Basophils % (Manual) 0 Metamyelocytes % 0 Myelocytes % 0 Promyelocytes % 0 Blast Cells % 0 Nucleated RBC % Not Reportable Seg Neutrophils # Man 3.8 Band Neutrophils # 3.5 Lymphocytes # (Manual) 0.2 L Abs React Lymphs (Man) 0.1 Monocytes # (Manual) 0.2 Eosinophils # (Manual) 0.0 Basophils # (Manual) 0.0 Metamyelocytes # 0.0 Myelocytes # 0.0 Promyelocytes # 0.0 Blast Cells # 0.0 WBC Morphology Not Reportable Hypersegmented Neuts Not Reportable Hyposegmented Neuts Not Reportable Hypogranular Neuts Not Reportable Smudge Cells Not Reportable Toxic Granulation Not Reportable Toxic Vacuolation Not Reportable Dohle Bodies 1+ Pelger-Huet Anomaly Not Reportable Mark Rods Not Reportable Platelet Estimate Appears decreased Clumped Platelets Not Reportable Plt Clumps, EDTA Not Reportable Large Platelets Few Giant Platelets Few Platelet Satelliting Not Reportable Plt Morphology Comment Not Reportable RBC Morphology Not Reportable Dimorphic RBCs Not Reportable Polychromasia Not Reportable Hypochromasia 2+ Poikilocytosis 2+ Anisocytosis Not Reportable Microcytosis 2+ Macrocytosis Not Reportable Spherocytes Not Reportable Pappenheimer Bodies Not Reportable Sickle Cells Not Reportable Target Cells Few Tear Drop Cells Not Reportable Ovalocytes 1+ Helmet Cells Not Reportable [place] Bodies Not Reportable [place] Rings Not Reportable Aneesh Cells 2+ Bite Cells Not Reportable Crenated Cell Not Reportable Elliptocytes Not Reportable Acanthocytes (Spur) Not Reportable Rouleaux Not Reportable Hemoglobin C Crystals Not Reportable Schistocytes 1+ Malaria parasites Not Reportable Stef Bodies Not Reportable Hem Pathologist Commnt No PT INR APTT 30.0 POC ABG pH POC ABG pCO2 POC ABG pO2 POC ABG HCO3 POC ABG Total CO2 POC ABG O2 Sat POC ABG Base Excess FiO2 Sodium Potassium Chloride Carbon Dioxide Anion Gap BUN Creatinine Estimated GFR BUN/Creatinine Ratio Glucose POC Glucose Lactic Acid 4.00 H* Calcium Total Bilirubin AST ALT Alkaline Phosphatase Total Creatine Kinase Total Protein Albumin Albumin/Globulin Ratio Urine Color Urine Turbidity Urine pH Ur Specific [place] Urine Protein Urine Glucose (UA) Urine Ketones Urine Blood Urine Nitrite Urine Bilirubin Urine Urobilinogen Ur Leukocyte Esterase Urine WBC (Auto) Urine RBC (Auto) U Epithel Cells (Auto) Urine Bacteria (Auto) Urine Mucus Blood Type Antibody Screen Crossmatch 12/08/18 12/08/18 12/08/18 13:40 14:29 15:21 WBC RBC Hgb Hct MCV MCH MCHC RDW Plt Count Add Manual Diff Total Counted Seg Neutrophils % Seg Neuts % (Manual) Band Neutrophils % Lymphocytes % (Manual) Reactive Lymphs % (Man) Monocytes % (Manual) Eosinophils % (Manual) Basophils % (Manual) Metamyelocytes % Myelocytes % Promyelocytes % Blast Cells % Nucleated RBC % Seg Neutrophils # Man Band Neutrophils # Lymphocytes # (Manual) Abs React Lymphs (Man) Monocytes # (Manual) Eosinophils # (Manual) Basophils # (Manual) Metamyelocytes # Myelocytes # Promyelocytes # Blast Cells # WBC Morphology Hypersegmented Neuts Hyposegmented Neuts Hypogranular Neuts Smudge Cells Toxic Granulation Toxic Vacuolation Dohle Bodies Pelger-Huet Anomaly Mark Rods Platelet Estimate Clumped Platelets Plt Clumps, EDTA Large Platelets Giant Platelets Platelet Satelliting Plt Morphology Comment RBC Morphology Dimorphic RBCs Polychromasia Hypochromasia Poikilocytosis Anisocytosis Microcytosis Macrocytosis Spherocytes Pappenheimer Bodies Sickle Cells Target Cells Tear Drop Cells Ovalocytes Helmet Cells [place] Bodies [place] Rings Aneesh Cells Bite Cells Crenated Cell Elliptocytes Acanthocytes (Spur) Rouleaux Hemoglobin C Crystals Schistocytes Malaria parasites Stef Bodies Hem Pathologist Commnt PT 20.5 H INR 1.64 H APTT POC ABG pH POC ABG pCO2 POC ABG pO2 POC ABG HCO3 POC ABG Total CO2 POC ABG O2 Sat POC ABG Base Excess FiO2 Sodium 141 Potassium 3.2 L Chloride 105.8 Carbon Dioxide 18 L Anion Gap 20 BUN 64 H Creatinine 1.5 H Estimated GFR 40 BUN/Creatinine Ratio 43 Glucose 145 H POC Glucose Lactic Acid 3.00 H* Calcium 7.7 L Total Bilirubin 1.00 AST 28 ALT 28 Alkaline Phosphatase 88 Total Creatine Kinase 258 H Total Protein 4.6 L Albumin 1.8 L Albumin/Globulin Ratio 0.6 Urine Color Urine Turbidity Urine pH Ur Specific [place] Urine Protein Urine Glucose (UA) Urine Ketones Urine Blood Urine Nitrite Urine Bilirubin Urine Urobilinogen Ur Leukocyte Esterase Urine WBC (Auto) Urine RBC (Auto) U Epithel Cells (Auto) Urine Bacteria (Auto) Urine Mucus Blood Type Antibody Screen Crossmatch 12/08/18 12/09/18 12/09/18 16:06 02:31 05:36 WBC 14.5 H RBC 4.82 Hgb 11.9 D Hct 36.0 D MCV 75 L MCH 25 L MCHC 33 RDW 20.4 H Plt Count 68 L Add Manual Diff Complete Total Counted 100 Seg Neutrophils % Colon And Rectal Surgeon Seg Neuts % (Manual) 81.0 H Band Neutrophils % 17.0 Lymphocytes % (Manual) 1.0 L Reactive Lymphs % (Man) 0 Monocytes % (Manual) 1.0 Eosinophils % (Manual) 0 Basophils % (Manual) 0 Metamyelocytes % 0 Myelocytes % 0 Promyelocytes % 0 Blast Cells % 0 Nucleated RBC % Not Reportable Seg Neutrophils # Man 11.7 H Band Neutrophils # 2.5 Lymphocytes # (Manual) 0.1 L Abs React Lymphs (Man) 0.0 Monocytes # (Manual) 0.1 Eosinophils # (Manual) 0.0 Basophils # (Manual) 0.0 Metamyelocytes # 0.0 Myelocytes # 0.0 Promyelocytes # 0.0 Blast Cells # 0.0 WBC Morphology Not Reportable Hypersegmented Neuts Not Reportable Hyposegmented Neuts Not Reportable Hypogranular Neuts Not Reportable Smudge Cells Not Reportable Toxic Granulation Not Reportable Toxic Vacuolation Not Reportable Dohle Bodies Not Reportable Pelger-Huet Anomaly Not Reportable Mark Rods Not Reportable Platelet Estimate Consistent w auto Clumped Platelets Not Reportable Plt Clumps, EDTA Not Reportable Large Platelets Not Reportable Giant Platelets Not Reportable Platelet Satelliting Not Reportable Plt Morphology Comment Not Reportable RBC Morphology Not Reportable Dimorphic RBCs Not Reportable Polychromasia Not Reportable Hypochromasia 1+ Poikilocytosis Not Reportable Anisocytosis 1+ Microcytosis Not Reportable Macrocytosis Not Reportable Spherocytes Not Reportable Pappenheimer Bodies Not Reportable Sickle Cells Not Reportable Target Cells Rare Tear Drop Cells Not Reportable Ovalocytes Not Reportable Helmet Cells Not Reportable [place] Bodies Not Reportable [place] Rings Not Reportable Aneesh Cells Not Reportable Bite Cells Not Reportable Crenated Cell Not Reportable Elliptocytes Not Reportable Acanthocytes (Spur) 2+ Rouleaux Not Reportable Hemoglobin C Crystals Not Reportable Schistocytes 1+ Malaria parasites Not Reportable Stef Bodies Not Reportable Hem Pathologist Commnt No PT INR APTT POC ABG pH 7.375 POC ABG pCO2 34.2 L POC ABG pO2 465 H POC ABG HCO3 20.0 POC ABG Total CO2 21 POC ABG O2 Sat 100 POC ABG Base Excess -5 FiO2 100 Sodium Potassium Chloride Carbon Dioxide Anion Gap BUN Creatinine Estimated GFR BUN/Creatinine Ratio Glucose POC Glucose 152 H Lactic Acid Calcium Total Bilirubin AST ALT Alkaline Phosphatase Total Creatine Kinase Total Protein Albumin Albumin/Globulin Ratio Urine Color Urine Turbidity Urine pH Ur Specific [place] Urine Protein Urine Glucose (UA) Urine Ketones Urine Blood Urine Nitrite Urine Bilirubin Urine Urobilinogen Ur Leukocyte Esterase Urine WBC (Auto) Urine RBC (Auto) U Epithel Cells (Auto) Urine Bacteria (Auto) Urine Mucus Blood Type Antibody Screen Crossmatch 12/09/18 12/09/18 12/09/18 05:36 05:43 10:47 WBC RBC Hgb Hct MCV MCH MCHC RDW Plt Count Add Manual Diff Total Counted Seg Neutrophils % Seg Neuts % (Manual) Band Neutrophils % Lymphocytes % (Manual) Reactive Lymphs % (Man) Monocytes % (Manual) Eosinophils % (Manual) Basophils % (Manual) Metamyelocytes % Myelocytes % Promyelocytes % Blast Cells % Nucleated RBC % Seg Neutrophils # Man Band Neutrophils # Lymphocytes # (Manual) Abs React Lymphs (Man) Monocytes # (Manual) Eosinophils # (Manual) Basophils # (Manual) Metamyelocytes # Myelocytes # Promyelocytes # Blast Cells # WBC Morphology Hypersegmented Neuts Hyposegmented Neuts Hypogranular Neuts Smudge Cells Toxic Granulation Toxic Vacuolation Dohle Bodies Pelger-Huet Anomaly Mark Rods Platelet Estimate Clumped Platelets Plt Clumps, EDTA Large Platelets Giant Platelets Platelet Satelliting Plt Morphology Comment RBC Morphology Dimorphic RBCs Polychromasia Hypochromasia Poikilocytosis Anisocytosis Microcytosis Macrocytosis Spherocytes Pappenheimer Bodies Sickle Cells Target Cells Tear Drop Cells Ovalocytes Helmet Cells [place] Bodies [place] Rings Aneesh Cells Bite Cells Crenated Cell Elliptocytes Acanthocytes (Spur) Rouleaux Hemoglobin C Crystals Schistocytes Malaria parasites Stef Bodies Hem Pathologist Commnt PT INR APTT POC ABG pH 7.308 L POC ABG pCO2 38.3 POC ABG pO2 183 H POC ABG HCO3 19.2 POC ABG Total CO2 20 POC ABG O2 Sat 100 POC ABG Base Excess -7 FiO2 50 Sodium 141 Potassium 4.7 D Chloride 107.6 H Carbon Dioxide 18 L Anion Gap 20 BUN 75 H Creatinine 1.9 H Estimated GFR 30 BUN/Creatinine Ratio 39 Glucose 136 H POC Glucose 150 H Lactic Acid Calcium 7.9 L Total Bilirubin 1.60 H AST 44 H ALT 39 Alkaline Phosphatase 113 Total Creatine Kinase Total Protein 5.2 L Albumin 2.4 L Albumin/Globulin Ratio 0.9 Urine Color Urine Turbidity Urine pH Ur Specific [place] Urine Protein Urine Glucose (UA) Urine Ketones Urine Blood Urine Nitrite Urine Bilirubin Urine Urobilinogen Ur Leukocyte Esterase Urine WBC (Auto) Urine RBC (Auto) U Epithel Cells (Auto) Urine Bacteria (Auto) Urine Mucus Blood Type Antibody Screen Crossmatch 12/09/18 13:46 WBC RBC Hgb Hct MCV MCH MCHC RDW Plt Count Add Manual Diff Total Counted Seg Neutrophils % Seg Neuts % (Manual) Band Neutrophils % Lymphocytes % (Manual) Reactive Lymphs % (Man) Monocytes % (Manual) Eosinophils % (Manual) Basophils % (Manual) Metamyelocytes % Myelocytes % Promyelocytes % Blast Cells % Nucleated RBC % Seg Neutrophils # Man Band Neutrophils # Lymphocytes # (Manual) Abs React Lymphs (Man) Monocytes # (Manual) Eosinophils # (Manual) Basophils # (Manual) Metamyelocytes # Myelocytes # Promyelocytes # Blast Cells # WBC Morphology Hypersegmented Neuts Hyposegmented Neuts Hypogranular Neuts Smudge Cells Toxic Granulation Toxic Vacuolation Dohle Bodies Pelger-Huet Anomaly Mark Rods Platelet Estimate Clumped Platelets Plt Clumps, EDTA Large Platelets Giant Platelets Platelet Satelliting Plt Morphology Comment RBC Morphology Dimorphic RBCs Polychromasia Hypochromasia Poikilocytosis Anisocytosis Microcytosis Macrocytosis Spherocytes Pappenheimer Bodies Sickle Cells Target Cells Tear Drop Cells Ovalocytes Helmet Cells [place] Bodies [place] Rings [place] Cells Bite Cells Crenated Cell Elliptocytes Acanthocytes (Spur) Rouleaux Hemoglobin C Crystals Schistocytes Malaria parasites Stef Bodies Hem Pathologist Commnt PT INR APTT POC ABG pH POC ABG pCO2 POC ABG pO2 POC ABG HCO3 POC ABG Total CO2 POC ABG O2 Sat POC ABG Base Excess FiO2 Sodium Potassium Chloride Carbon Dioxide Anion Gap BUN Creatinine Estimated GFR BUN/Creatinine Ratio Glucose POC Glucose 162 H Lactic Acid Calcium Total Bilirubin AST ALT Alkaline Phosphatase Total Creatine Kinase Total Protein Albumin Albumin/Globulin Ratio Urine Color Urine Turbidity Urine pH Ur Specific [place] Urine Protein Urine Glucose (UA) Urine Ketones Urine Blood Urine Nitrite Urine Bilirubin Urine Urobilinogen Ur Leukocyte Esterase Urine WBC (Auto) Urine RBC (Auto) U Epithel Cells (Auto) Urine Bacteria (Auto) Urine Mucus Blood Type Antibody Screen Crossmatch Assessment and Plan Patient seen and examined, agree with advanced practioner's note and plan with additions below: Patient with coffee grounds, but acutely ill (intubated, large pericardial effusion, etc) and rectal exam does not show melena. Therefore at this juncture risks of EGD would outweigh the benefits, cont PPI and clinical monitoring. For overt bleeding please call back
--- NOTE | 2018-12-09 15:03 | Consultation ---
HISTORY OF PRESENT ILLNESS: The patient is in the Emergency Room, will be transferred to CCU. Consult is requested for pericardial effusion noted on the CT of the chest. The patient is intubated and the history is mainly obtained by talking to the ER nurse and hospital records. This is an 88-year-old female brought to the hospital by EMS for altered mental status. This was yesterday 12/08/2018. The patient is known to have hypertension for a long time, several cerebrovascular accidents, and diabetes mellitus. She has had anemia requiring multiple blood transfusions and history of pneumonia. She is also known to have pacemaker implant. MEDICATIONS AT HOME: Include albuterol inhaler 2 puffs q.i.d., amlodipine 10 mg once a day, atorvastatin 20 mg at bedtime, hydralazine 50 mg 3 times a day, metoprolol tartrate 25 mg b.i.d. The patient was intubated by ER doctor, as she came in with bag valve mask ventilation by book repairer. CT of the chest done in the Emergency Room revealed large pericardial effusion and left lower lobe volume loss, indicating atelectasis and/or infiltrate and left pleural effusion. In the Emergency Room, she was noted to have hypothermia after giving 2 liters of IV fluid and the blood pressure improved from 80 systolic to normal blood pressure and this morning, the blood pressure has gone up to 200/100. Initially, she was given Levophed, which has been terminated. SOCIAL HISTORY: No history of smoking, no history of alcohol intake. PHYSICAL EXAMINATION: GENERAL: The patient is intubated on respirator. NECK: No JVP distention noted. HEART: PMI is not palpable. Dull percussion note beyond usual precordial area suggesting pericardial effusion. Heart sounds are heard well. No rubs audible. LUNGS: Clear clinically. ABDOMEN: Soft, nontender. EXTREMITIES: No edema. Good pulses. DIAGNOSTIC DATA: EKG, sinus rhythm, nonspecific ST changes. Chest x-ray revealed cardiomegaly. Her hemoglobin was 6.8, which has gone up to 11.9 after blood transfusion. Platelet count is low at 68,000. White cell count 7800, gone up to 14,500 after fluid resuscitation along with elevation of temperature to 102 degrees Fahrenheit. Protime is 20.5, INR of 1.64. Blood gases this morning on 50% FiO2 revealed pH of 7.30, pCO2 of 38.3, pO2 of 183. Sodium is 141, potassium 4.7, chloride 107.6, carbon dioxide 18, BUN is 75, creatinine is 1.9, random glucose 136 mg percent. Calcium is 7.9, total bilirubin 1.6, total protein is 5.2, albumin is 2.4. CT of the brain negative. IMPRESSION: 1. Acute respiratory failure. 2. Possible sepsis. 3. Large pericardial effusion without tamponade. DISCUSSION: The patient does not have any signs of tamponade. When she is able to be fed, we may consider giving colchicine 0.6 mgmg b.i.d. Because of large pericardial effusion, it is good to do a pericardiocentesis with a window for diagnostic and therapeutic purposes until marvin tamponade. We will check her TSH and also JEFFREY as initial workup. Doubt myocardial infarction or injury causing pericardial effusion. Of course,Uremic pericarditis and cancer is in the differential diagnosis on account of her age. JOB# [id number] DANIAL/CHIP WILL
[2018-12-09] MEDS: NORMODYNE IV PRN (16:29)
--- NOTE | 2018-12-09 17:54 | Consultation ---
History of Present Illness - Reason for Consult Consult date: 12/09/18 sepsis, UTI Requesting physician: MARY CARMEN REAL - History of Present Illness 88 y/o female with history of CVA, DM, HTN, CKD II-III advanced PVD (Abd CTA 2016 Recenshowed bilateral occlusion of femoral arteries) and chronic anemia due to GI bleed (per daughter) admitted on 12/08/2018 due to AMS/unresponsive at home found by family members. Per daughter, she has had severe anemia several times requiring transfusions felt to be from GI bleed but source is unclear. Patient is unable to provide a history due to intubation. Per grand-daughter, she has been c/o right ear pain and drainage last week. Patient was putting Neosporin and perhaps ear stephanie in the patient's ear. She also was c/o dysuria. In the ED, temp 94-->102.3, HR 95, R 14, BP 86/42. WBC 7.8. Hg 6.8. Plat 56. Bands 45%. INR 1.6. Creat 1.5. Lactate 4. Glucose 145. CK 258. LFTs neg. UA wbc 157, LE mod. Blood culture 12/08/[address] no growth so far. [address] head extensive right MCA encephalomalcia, right mastoid opacities. CXR showed small left pleural effusion. CT chest showed large pericardial effusion, LLL atelectasis v/s infiltrate and left pleural effusion. She was found in acute respiratory failure, requiring bag valve mask ventilation and hypotensive. Noted coffee- ground drainage from OG tube. On physical exam, patient found to have purulent discharge from the right ear, and stephanie are removed by ED physician. There is p robable perforation of the right sided tympanic membrane per ED physician. ROS: unable to obtian Past History Past Medical History: other (as per HPI) Past Surgical History: hysterectomy, Other ( colon polyps removed, pacemaker) Social history: denies: smoking, alcohol abuse Family history: hypertension Medications and Allergies Allergies Allergy/AdvReac Type Severity Reaction Status Date / Time Penicillins Allergy Hives Verified 12/08/18 13:13 Home Medications Medication Instructions Recorded Confirmed Last Taken Type ALBUTEROL Inhaler (OR & NICU) 2 puff IH QID PRN #1 inhalation 12/21/16 12/08/18 Unknown Rx [Proair] Albuterol Sulfate [Albuterol 0.63% 0.63 mg IH TID PRN #90 ml 12/21/16 12/08/18 Unknown Rx NEBS] Amlodipine Besylate [Norvasc] 10 mg PO DAILY #90 tablet 12/21/16 12/08/18 Unknown Rx AtorvaSTATin [Lipitor] 20 mg PO QHS #90 tablet 12/21/16 12/08/18 Unknown Rx Hydralazine HCl [Apresoline TAB] 50 mg PO TID #90 tablet 12/21/16 12/08/18 Unknown Rx Metoprolol [Lopressor TAB] 25 mg PO BID #90 tablet 12/21/16 12/08/18 Unknown Rx Promethazine /Codeine 5 ml PO Q6H PRN #100 ml 12/21/16 12/08/18 Unknown Rx [Phenergan/Codeine 6.25-10 mg/5 ml] Active Meds: Active Medications Acetaminophen (Tylenol) 650 mg TN Q4H PRN PRN Reason: Pain MILD(1-3)/Fever >100.5/TURNER Last Admin: 12/09/18 10:00 Dose: 650 mg Documented by: Albuterol (Proventil) 2.5 mg IH Q4HRT PRN PRN Reason: Shortness Of Breath Albuterol/Ipratropium (Duoneb *Not For Prn Use*) 1 ampul IH Q6HRT [facility] Last Admin: 12/09/18 14:20 Dose: 1 ampul Documented by: Lipase/Protease/Amylase (Pancreaze Dr 10,500 Unit) 1 each FEEDTUBE PRN PRN PRN Reason: For Clogged Feeding Tube Enoxaparin Sodium (Lovenox) 30 mg SUB-Q QDAY@2200 KOLE Famotidine (Pepcid) 20 mg IV DAILY [facility] Last Admin: 12/09/18 09:39 Dose: 20 mg Documented by: Hydrophilic Ointment (Vaseline Lip Therapy) 1 applic TP Q2HR PRN PRN Reason: Dry Lips Norepinephrine (Levophed Drip 4 Mg/Ns 250 Ml) 4 mg in 250 mls @ 7.5 mls/hr IV TITR KOLE; Protocol Last Titration: 12/08/18 20:00 Dose: 0 mcg/min, 0 mls/hr Documented by: Cefepime HCl (Maxipime/Ns 2 Gm/100 Ml) 2 gm in 100 mls @ 200 mls/hr IV Q24HR KOLE; Protocol Last Admin: 12/09/18 10:00 Dose: 200 mls/hr Documented by: Sodium Chloride (Nacl 0.9% 1000 Ml) 1,000 mls @ 125 mls/hr IV DIRECT KOLE Last Admin: 12/09/18 13:18 Dose: 125 mls/hr Documented by: Pantoprazole Sodium 80 mg/ (Sodium Chloride) 100 mls @ 10 mls/hr IV DIRECT KOLE Last Admin: 12/09/18 12:37 Dose: 8 mg/hr, 10 mls/hr Documented by: Labetalol HCl (Normodyne) 10 mg IV Q4H PRN PRN Reason: Hypertension Last Admin: 12/09/18 16:29 Dose: 10 mg Documented by: Multi-Ingred Cream/Lotion/Oil/Oint (Artificial Tears Ophth Oint) 1 applic OU Q4HR PRN PRN Reason: Dry Eye(s) Neomycin/Polymyxin/Hydrocortisone (Cortisporin) 4 drops AU TID [facility] Last Admin: 12/09/18 13:48 Dose: 4 drops Documented by: Ondansetron HCl (Zofran) 4 mg IV Q8H PRN PRN Reason: Nausea And Vomiting Pneumococcal Polyvalent Vaccine (Pneumovax 23) 0.5 ml IM .ONCE ONE Stop: 12/11/18 12:01 Simple Syrup (Simple Syrup) 15 ml FEEDTUBE PRN PRN PRN Reason: Hypoglycemia Simple Syrup (Simple Syrup) 30 ml FEEDTUBE PRN PRN PRN Reason: Hypoglycemia Sodium Bicarbonate (Sodium Bicarbonate) 325 mg FEEDTUBE PRN PRN PRN Reason: For Clogged Feeding Tube Sodium Chloride (Sodium Chloride Flush Syringe 10 Ml) 10 ml IV BID [facility] Last Admin: 12/09/18 09:39 Dose: 10 ml Documented by: Sodium Chloride (Sodium Chloride Flush Syringe 10 Ml) 10 ml IV PRN PRN PRN Reason: LINE FLUSH Physical Examination - Physical Exam Narrative exam: General appearance: lethargic in NAD on the vent intubated CMV fiO2 30% p6 Eyes: + mild icteric sclerae, moist conjunctivae; no lid-lag; PERRLA HENT: Atraumatic; oropharynx +ETT. +right ear external canal with edema and purulent drainage Neck: Trachea midline; supple, no thyromegaly or lymphadenopathy Lungs: gustavo coarse BS CV: tachycardic Abdomen: Soft, mild tenderness Extremities: No peripheral edema or extremity lymphadenopathy Skin: Normal temperature, turgor and texture; no rash, ulcers or subcutaneous nodules Psych: lethargic. Neuro: lethargic - Constitutional Vitals: Vital Signs Temp Pulse Resp BP Pulse Ox 99.7 F H 82 20 196/84 100 12/09/18 15:08 12/09/18 16:29 12/09/18 15:00 12/09/18 16:29 12/09/18 15:00 Temperature -Last 24 Hours Temperature 99.7 F Temperature 98.7 F Temperature 102.0 F Temperature 102.5 F Temperature 103.1 F Temperature 100.4 F Temperature 102.3 F Temperature 98.3 F Temperature 95.5 F Results - Labs CBC & Chem 7: 12/09/18 05:36 12/09/18 18:18 Labs: Abnormal lab results 12/08/18 12/08/18 12/09/18 Range/Units 12:58 13:40 02:31 WBC (4.5-11.0) K/mm3 MCV (79-97) fl MCH (28-32) pg RDW (13.2-15.2) % Plt Count (140-440) K/mm3 Seg Neuts % (Manual) (40.0-70.0) % Lymphocytes % (Manual) (13.4-35.0) % Seg Neutrophils # Man (1.8-7.7) K/mm3 Lymphocytes # (Manual) (1.2-5.4) K/mm3 POC ABG pH (7.35-7.45) POC ABG pO2 (80-105) Chloride (98-107) mmol/L Carbon Dioxide (22-30) mmol/L BUN (7-17) mg/dL Creatinine (0.7-1.2) mg/dL Glucose (65-100) mg/dL POC Glucose 143 H 152 H (70-105) Calcium (8.4-10.2) mg/dL Total Bilirubin (0.1-1.2) mg/dL AST (5-40) units/L Total Protein (6.3-8.2) g/dL Albumin (3.9-5) g/dL TSH (0.270-4.200) mlU/mL Free T4 (0.76-1.46) ng/dL Crossmatch See Detail 12/09/18 12/09/18 12/09/18 Range/Units 05:36 05:36 05:43 WBC 14.5 H (4.5-11.0) K/mm3 MCV 75 L (79-97) fl MCH 25 L (28-32) pg RDW 20.4 H (13.2-15.2) % Plt Count 68 L (140-440) K/mm3 Seg Neuts % (Manual) 81.0 H (40.0-70.0) % Lymphocytes % (Manual) 1.0 L (13.4-35.0) % Seg Neutrophils # Man 11.7 H (1.8-7.7) K/mm3 Lymphocytes # (Manual) 0.1 L (1.2-5.4) K/mm3 POC ABG pH 7.308 L (7.35-7.45) POC ABG pO2 183 H (80-105) Chloride 107.6 H (98-107) mmol/L Carbon Dioxide 18 L (22-30) mmol/L BUN 75 H (7-17) mg/dL Creatinine 1.9 H (0.7-1.2) mg/dL Glucose 136 H (65-100) mg/dL POC Glucose (70-105) Calcium 7.9 L (8.4-10.2) mg/dL Total Bilirubin 1.60 H (0.1-1.2) mg/dL AST 44 H (5-40) units/L Total Protein 5.2 L (6.3-8.2) g/dL Albumin 2.4 L (3.9-5) g/dL TSH (0.270-4.200) mlU/mL Free T4 (0.76-1.46) ng/dL Crossmatch 12/09/18 12/09/18 12/09/18 Range/Units 10:47 13:46 15:54 WBC (4.5-11.0) K/mm3 MCV (79-97) fl MCH (28-32) pg RDW (13.2-15.2) % Plt Count (140-440) K/mm3 Seg Neuts % (Manual) (40.0-70.0) % Lymphocytes % (Manual) (13.4-35.0) % Seg Neutrophils # Man (1.8-7.7) K/mm3 Lymphocytes # (Manual) (1.2-5.4) K/mm3 POC ABG pH (7.35-7.45) POC ABG pO2 (80-105) Chloride (98-107) mmol/L Carbon Dioxide (22-30) mmol/L BUN (7-17) mg/dL Creatinine (0.7-1.2) mg/dL Glucose (65-100) mg/dL POC Glucose 150 H 162 H (70-105) Calcium (8.4-10.2) mg/dL Total Bilirubin (0.1-1.2) mg/dL AST (5-40) units/L Total Protein (6.3-8.2) g/dL Albumin (3.9-5) g/dL TSH (0.270-4.200) mlU/mL Free T4 0.58 L (0.76-1.46) ng/dL Crossmatch 12/09/18 12/09/18 Range/Units 15:54 16:40 WBC (4.5-11.0) K/mm3 MCV (79-97) fl MCH (28-32) pg RDW (13.2-15.2) % Plt Count (140-440) K/mm3 Seg Neuts % (Manual) (40.0-70.0) % Lymphocytes % (Manual) (13.4-35.0) % Seg Neutrophils # Man (1.8-7.7) K/mm3 Lymphocytes # (Manual) (1.2-5.4) K/mm3 POC ABG pH (7.35-7.45) POC ABG pO2 (80-105) Chloride (98-107) mmol/L Carbon Dioxide (22-30) mmol/L BUN (7-17) mg/dL Creatinine (0.7-1.2) mg/dL Glucose (65-100) mg/dL POC Glucose 197 H (70-105) Calcium (8.4-10.2) mg/dL Total Bilirubin (0.1-1.2) mg/dL AST (5-40) units/L Total Protein (6.3-8.2) g/dL Albumin (3.9-5) g/dL TSH 0.268 L (0.270-4.200) mlU/mL Free T4 (0.76-1.46) ng/dL Crossmatch Assessment and Plan Cultures: Blood culture 12/08/2018 no growth so far. Assessment: 88 y/o female with history of CVA, DM, HTN, CKD II-III advanced PVD (Abd CTA 2016 Recenshowed bilateral occlusion of femoral arteries) and chronic anemia due to GI bleed (per daughter) admitted on 12/08/2018 due to AMS/unresponsive at home found by family members, right ear pain and dysuria: 1) Severe Sepsis: present on admission, manifested by hypothermia/fever, tachycardia, hypotension, bandemia. Etiology UTI +/- right otitis me heather/mastoiditis +/- ?meningitis +/- severe anemia. - Blood culture 12/08/2018 no growth so far. -Lactate 4 - CXR no consolidation. 2) UTI: UA wbc 157, LE mod, on cefepime 3) Right otitis media / mastoiditis: Per grand-daughter, she has been c/o right ear pain and drainage last week. Patient was putting Neosporin and perhaps ear stephanie in the patient's ear. On physical exam, patient found to have purulent discharge from the right ear, and stephanie are removed by ED physician. There is probable perforation of the right sided tympanic membrane per ED physician. Started on dexametasone, cefepime and vanco 4) Acute encephalopathy: from sepsis alone versus meningitis. CT head extensive right MCA encephalomalcia, right mastoid opacities. 5) Acute respiratory failure: CXR showed small left pleural effusion. CT chest showed large pericardial effusion, LLL atelectasis v/s infiltrate and left pleural effusion. 6) ?GI bleed 7) Severe anemia: ? Noted coffee-ground drainage from OG tube. 8) Seveve thrombocytopenia: from sepsis 9) Large pericardial effusion 10) Penicillin allergy: tolerating cefepime 11) CKD: renally adjusted antibiotics Recommendations: - f/u blood cultures - obtain right ear culture - when stable LP for CSF cell count, diff, protein, glucose, culture, Gram stain, VDRL, HSV and Crypto ag - continue cefepime, vancomycin and acyclovir renally adjusted for now - will stop acyclovir soon as most likely bacterial meningitis - Cards consult Guarded prognosis Will follow. Pearl Mariee MD Infectious Diseases [employer] [facility] [phone]
[2018-12-09 18:57] LABS: Calcium 7.9 mg/dL (8.4-10.2)
[2018-12-09] MEDS ORDERED: LOVENOX SUB-Q SCH (22:00)
--- NOTE | 2018-12-09 22:25 | XRay Report ---
PROCEDURE: XR ABDOMEN 1V AP TECHNIQUE: AP view of the lower chest and upper abdomen HISTORY: Confirm OG tube placement COMPARISONS: Chest radiograph 12/08/2018 FINDINGS: Cardiomediastinal silhouette is stable. There is aortic calcification. No acute pulmonary infiltrates are seen. The endotracheal tube tip projects 2.6 cm superior to prashant. Right IJ catheter tip is in the superior vena cava. The distal enteric tube is coiled in the stomach. IMPRESSION: Distal enteric tube is coiled in the stomach. This document is electronically signed by Ene Robles MD., December 09 2018 10:23:11 PM ET
[2018-12-10] MEDS: NORMODYNE IV PRN ×2 (00:58→09:14)
[2018-12-10] MEDS: DUONEB *Not for PRN Use IH SCH ×4 (03:15→19:16)
--- NOTE | 2018-12-10 03:20 | XRay Report ---
PROCEDURE: XR CHEST 1V AP TECHNIQUE: Chest radiograph single view. HISTORY: follow up respiratory failure COMPARISONS: 12/09/2018 . FINDINGS: Heart: Normal. Mediastinum/Vessels: There is calcified plaque in the thoracic aorta. There is no aneurysm. Lungs/Pleural space: The lungs are expanded. There are no infiltrates, effusions or pneumothoraces. There is a tiny calcified granuloma in the left upper lung.. Bony thorax: No acute osseous abnormality. Life support devices: Tip of the endotracheal tube is 3.6 cm above the prashant. NG tube is in the stomach. There is a right internal jugular vein central venous catheter. The tip is in the superior vena cava. Pacemaker leads are in the right atrium and right ventricle. IMPRESSION: The heart size is normal. There are no infiltrates, effusions or pneumothoraces. Tip of the endotracheal tube is 3.6 cm above the prashant. NG tube is in the stomach. There is a right internal jugular vein central venous catheter. The tip is in the superior vena cava. Pacemaker leads are in the right atrium and right ventricle. This document is electronically signed by Mina Schwartz MD., December 10 2018 03:17:57 AM ET
[2018-12-10 05:07] LABS: Basophils % (Auto) 0.1 % (0.0-1.8); Eosinophils % (Auto) 0.3 % (0.0-4.3); Hematocrit 32.1 % (30.3-42.9); Hemoglobin 10.5 gm/dl (10.1-14.3); Lymphocytes # (Auto) 0.6 K/mm3 (1.2-5.4); Lymphocytes % (Auto) 5.6 % (13.4-35.0); Mean Corpuscular HGB Conc 33 % (30-34); Mean Corpuscular Volume 75 fl (79-97); Monocytes # (Auto) 0.5 K/mm3 (0.0-0.8); Monocytes % (Auto) 4.2 % (0.0-7.3); Red Blood Count 4.29 M/mm3 (3.65-5.03)
[2018-12-10 05:16] LABS: Platelet Count 81 K/mm3 (140-440); Red Cell Distribution Width 21.1 % (13.2-15.2)
[2018-12-10 05:27] LABS: Calcium 7.7 mg/dL (8.4-10.2)
[2018-12-10] MEDS: NACL 0.9% 1000 ML 1,000 ML IV SCH (06:53)
--- NOTE | 2018-12-10 08:45 | Progress Note ---
Assessment and Plan Acute respiratory failure on ventilatory support Sepsis. Urinary tract infection origin versus mastoiditis/otitis Acute on chronic kidney injury AMS Metabolic acidosis Recommendations Continue antibiotics Follow-up ABGs. Bicarbonate will be added has needed Serial lactate Monitor hemodynamics Monitor platelets, DIC panel f/u hospital ventilator bundle, Mechanical ventilation support, adjust FiO2 with goal of maintaining oximetry at or above 92% Keep PIP < 30 Sedation as needed for patient comfort, adjust to RASS -1 to - 3 . Currently off sedation Maintain extubation precautions DVT prophylaxis PPI prophylaxis LP scheduled today,Rads asked for INR/PT/PTT update Critical care time was 31 minutes of [id number] evaluation and coordination of care Subjective Date of service: 12/10/18 Principal diagnosis: acute respiratory failure, sepsis, urinary tract infection, mastoiditis Interval history: Intubated Objective Vital Signs - 12hr 12/09/18 12/09/18 12/09/18 20:50 21:00 21:10 Temperature Pulse Rate 68 62 67 Pulse Rate [ Anterior Bilateral] Respiratory 18 18 18 Rate Respiratory Rate [Anterior Bilateral] Blood Pressure 164/68 163/58 163/63 O2 Sat by Pulse 100 100 100 Oximetry 12/09/18 12/09/18 12/09/18 21:20 21:30 21:40 Temperature Pulse Rate 67 69 66 Pulse Rate [ Anterior Bilateral] Respiratory 18 15 19 Rate Respiratory Rate [Anterior Bilateral] Blood Pressure 164/71 164/64 159/61 O2 Sat by Pulse 100 100 100 Oximetry 12/09/18 12/09/18 12/09/18 21:50 22:00 22:10 Temperature Pulse Rate 66 68 66 Pulse Rate [ Anterior Bilateral] Respiratory 16 14 17 Rate Respiratory Rate [Anterior Bilateral] Blood Pressure 169/77 175/80 157/62 O2 Sat by Pulse 100 100 100 Oximetry 12/09/18 12/09/18 12/09/18 22:20 22:30 22:40 Temperature Pulse Rate 67 66 67 Pulse Rate [ Anterior Bilateral] Respiratory 16 18 18 Rate Respiratory Rate [Anterior Bilateral] Blood Pressure 158/62 163/68 158/62 O2 Sat by Pulse 100 100 100 Oximetry 12/09/18 12/09/18 12/09/18 22:50 23:00 23:10 Temperature Pulse Rate 69 67 67 Pulse Rate [ Anterior Bilateral] Respiratory 16 18 13 Rate Respiratory Rate [Anterior Bilateral] Blood Pressure 166/70 144/66 144/66 O2 Sat by Pulse 100 100 100 Oximetry 12/09/18 12/09/18 12/09/18 23:20 23:30 23:32 Temperature 97.7 F Pulse Rate 61 64 Pulse Rate [ Anterior Bilateral] Respiratory 18 18 Rate Respiratory Rate [Anterior Bilateral] Blood Pressure 166/70 162/64 O2 Sat by Pulse 100 100 Oximetry 12/09/18 12/09/18 12/09/18 23:40 23:42 23:50 Temperature Pulse Rate 69 66 66 Pulse Rate [ Anterior Bilateral] Respiratory 18 16 Rate Respiratory Rate [Anterior Bilateral] Blood Pressure 162/64 162/64 161/71 O2 Sat by Pulse 100 100 100 Oximetry 12/10/18 12/10/18 12/10/18 00:00 00:10 00:20 Temperature Pulse Rate 65 61 60 Pulse Rate [ Anterior Bilateral] Respiratory 18 18 18 Rate Respiratory Rate [Anterior Bilateral] Blood Pressure 168/72 166/70 165/65 O2 Sat by Pulse 100 100 100 Oximetry 12/10/18 12/10/18 12/10/18 00:30 00:40 00:50 Temperature Pulse Rate 61 66 64 Pulse Rate [ Anterior Bilateral] Respiratory 18 18 18 Rate Respiratory Rate [Anterior Bilateral] Blood Pressure 172/66 165/65 183/69 O2 Sat by Pulse 100 100 100 Oximetry 12/10/18 12/10/18 12/10/18 00:58 01:00 01:10 Temperature Pulse Rate 63 68 59 L Pulse Rate [ Anterior Bilateral] Respiratory 18 16 Rate Respiratory Rate [Anterior Bilateral] Blood Pressure 193/67 165/66 165/66 O2 Sat by Pulse 100 100 Oximetry 12/10/18 12/10/18 12/10/18 01:20 01:30 01:40 Temperature Pulse Rate 60 61 60 Pulse Rate [ Anterior Bilateral] Respiratory 18 17 18 Rate Respiratory Rate [Anterior Bilateral] Blood Pressure 163/67 161/67 163/67 O2 Sat by Pulse 100 100 100 Oximetry 12/10/18 12/10/18 12/10/18 01:50 02:00 03:15 Temperature Pulse Rate 60 60 Pulse Rate [ 61 Anterior Bilateral] Respiratory 17 19 Rate Respiratory 18 Rate [Anterior Bilateral] Blood Pressure 164/66 176/86 O2 Sat by Pulse 100 100 Oximetry 12/10/18 12/10/18 12/10/18 03:16 03:25 03:29 Temperature 98.9 F Pulse Rate 60 Pulse Rate [ 62 Anterior Bilateral] Respiratory Rate Respiratory 18 Rate [Anterior Bilateral] Blood Pressure 172/73 O2 Sat by Pulse 100 Oximetry 12/10/18 12/10/18 12/10/18 07:29 07:50 07:56 Temperature 92.4 F L Pulse Rate 63 Pulse Rate [ 61 Anterior Bilateral] Respiratory Rate Respiratory 18 Rate [Anterior Bilateral] Blood Pressure 163/69 O2 Sat by Pulse 100 Oximetry Constitutional: no acute distress, other (dips to poor) Eyes: non-icteric ENT: other (ETT in position) Neck: supple, no JVD, other (right left IJ lines in place) Ascultation: Bilateral: clear, diminished breath sounds Cardiovascular: regular rate and rhythm, other (pacemaker rhythm) Gastrointestinal: normoactive bowel sounds, non-distended Integumentary: normal Extremities: no cyanosis, no edema, pink and warm Neurologic: pupils equal and round, other (Limited examination, basic responds when physically stimulated) CBC and BMP: 12/10/18 04:38 12/10/18 04:38 ABG, PT/INR, D-dimer: ABG POC ABG pH 7.273 (7.35-7.45) L 12/10/18 04:14 POC ABG pCO2 32.1 (35-45) L 12/10/18 04:14 POC ABG pO2 161 (80-105) H 12/10/18 04:14 POC ABG HCO3 14.8 12/10/18 04:14 POC ABG Total CO2 16 12/10/18 04:14 POC ABG O2 Sat 99 12/10/18 04:14 PT/INR, D-dimer PT 20.5 Sec. (12.2-14.9) H 12/08/18 14:29 INR 1.64 (0.87-1.13) H 12/08/18 14:29 Abnormal lab findings: Abnormal Labs 12/08/18 12/08/18 12/08/18 12:58 13:40 13:40 WBC RBC Hgb Hct MCV MCH RDW Plt Count Lymph % (Auto) Lymph # Seg Neutrophils % Seg Neuts % (Manual) Lymphocytes % (Manual) Seg Neutrophils # Seg Neutrophils # Man Lymphocytes # (Manual) PT INR POC ABG pH POC ABG pCO2 POC ABG pO2 Potassium Chloride Carbon Dioxide BUN Creatinine Glucose POC Glucose 143 H Lactic Acid Calcium Total Bilirubin AST Total Creatine Kinase C-Reactive Protein Total Protein Albumin TSH Free T4 Urine WBC (Auto) 157.0 H Crossmatch See Detail 12/08/18 12/08/18 12/08/18 13:40 13:40 13:40 WBC RBC 3.06 L Hgb 6.8 L Hct 21.1 L MCV 69 L MCH 22 L RDW 16.2 H Plt Count 56 L Lymph % (Auto) Lymph # Seg Neutrophils % Seg Neuts % (Manual) Lymphocytes % (Manual) 2.0 L Seg Neutrophils # Seg Neutrophils # Man Lymphocytes # (Manual) 0.2 L PT INR POC ABG pH POC ABG pCO2 POC ABG pO2 Potassium 3.2 L Chloride Carbon Dioxide 18 L BUN 64 H Creatinine 1.5 H Glucose 145 H POC Glucose Lactic Acid 4.00 H* Calcium 7.7 L Total Bilirubin AST Total Creatine Kinase 258 H C-Reactive Protein Total Protein 4.6 L Albumin 1.8 L TSH Free T4 Urine WBC (Auto) Crossmatch 12/08/18 12/08/18 12/08/18 14:29 15:21 16:06 WBC RBC Hgb Hct MCV MCH RDW Plt Count Lymph % (Auto) Lymph # Seg Neutrophils % Seg Neuts % (Manual) Lymphocytes % (Manual) Seg Neutrophils # Seg Neutrophils # Man Lymphocytes # (Manual) PT 20.5 H INR 1.64 H POC ABG pH POC ABG pCO2 34.2 L POC ABG pO2 465 H Potassium Chloride Carbon Dioxide BUN Creatinine Glucose POC Glucose Lactic Acid 3.00 H* Calcium Total Bilirubin AST Total Creatine Kinase C-Reactive Protein Total Protein Albumin TSH Free T4 Urine WBC (Auto) Crossmatch 12/09/18 12/09/18 12/09/18 02:31 05:36 05:36 WBC 14.5 H RBC Hgb Hct MCV 75 L MCH 25 L RDW 20.4 H Plt Count 68 L Lymph % (Auto) Lymph # Seg Neutrophils % Seg Neuts % (Manual) 81.0 H Lymphocytes % (Manual) 1.0 L Seg Neutrophils # Seg Neutrophils # Man 11.7 H Lymphocytes # (Manual) 0.1 L PT INR POC ABG pH POC ABG pCO2 POC ABG pO2 Potassium Chloride 107.6 H Carbon Dioxide 18 L BUN 75 H Creatinine 1.9 H Glucose 136 H POC Glucose 152 H Lactic Acid Calcium 7.9 L Total Bilirubin 1.60 H AST 44 H Total Creatine Kinase C-Reactive Protein Total Protein 5.2 L Albumin 2.4 L TSH Free T4 Urine WBC (Auto) Crossmatch 12/09/18 12/09/18 12/09/18 05:43 10:47 13:46 WBC RBC Hgb Hct MCV MCH RDW Plt Count Lymph % (Auto) Lymph # Seg Neutrophils % Seg Neuts % (Manual) Lymphocytes % (Manual) Seg Neutrophils # Seg Neutrophils # Man Lymphocytes # (Manual) PT INR POC ABG pH 7.308 L POC ABG pCO2 POC ABG pO2 183 H Potassium Chloride Carbon Dioxide BUN Creatinine Glucose POC Glucose 150 H 162 H Lactic Acid Calcium Total Bilirubin AST Total Creatine Kinase C-Reactive Protein Total Protein Albumin TSH Free T4 Urine WBC (Auto) Crossmatch 12/09/18 12/09/18 12/09/18 15:54 15:54 16:40 WBC RBC Hgb Hct MCV MCH RDW Plt Count Lymph % (Auto) Lymph # Seg Neutrophils % Seg Neuts % (Manual) Lymphocytes % (Manual) Seg Neutrophils # Seg Neutrophils # Man Lymphocytes # (Manual) PT INR POC ABG pH POC ABG pCO2 POC ABG pO2 Potassium Chloride Carbon Dioxide BUN Creatinine Glucose POC Glucose 197 H Lactic Acid Calcium Total Bilirubin AST Total Creatine Kinase C-Reactive Protein Total Protein Albumin TSH 0.268 L Free T4 0.58 L Urine WBC (Auto) Crossmatch 12/09/18 12/09/18 12/09/18 18:18 18:18 21:51 WBC RBC Hgb Hct MCV MCH RDW Plt Count Lymph % (Auto) Lymph # Seg Neutrophils % Seg Neuts % (Manual) Lymphocytes % (Manual) Seg Neutrophils # Seg Neutrophils # Man Lymphocytes # (Manual) PT INR POC ABG pH POC ABG pCO2 POC ABG pO2 Potassium Chloride 108.2 H Carbon Dioxide 16 L BUN 89 H Creatinine 2.3 H Glucose 180 H POC Glucose 198 H Lactic Acid Calcium 7.9 L Total Bilirubin AST Total Creatine Kinase C-Reactive Protein 19.60 H Total Protein Albumin TSH Free T4 Urine WBC (Auto) Crossmatch 12/10/18 12/10/18 12/10/18 01:59 04:14 04:38 WBC 11.5 H RBC Hgb Hct MCV 75 L MCH 25 L RDW 21.1 H Plt Count 81 L Lymph % (Auto) 5.6 L Lymph # 0.6 L Seg Neutrophils % 89.8 H Seg Neuts % (Manual) Lymphocytes % (Manual) Seg Neutrophils # 10.3 H Seg Neutrophils # Man Lymphocytes # (Manual) PT INR POC ABG pH 7.273 L POC ABG pCO2 32.1 L POC ABG pO2 161 H Potassium Chloride Carbon Dioxide BUN Creatinine Glucose POC Glucose 219 H Lactic Acid Calcium Total Bilirubin AST Total Creatine Kinase C-Reactive Protein Total Protein Albumin TSH Free T4 Urine WBC (Auto) Crossmatch 12/10/18 12/10/18 12/10/18 04:38 05:07 07:26 WBC RBC Hgb Hct MCV MCH RDW Plt Count Lymph % (Auto) Lymph # Seg Neutrophils % Seg Neuts % (Manual) Lymphocytes % (Manual) Seg Neutrophils # Seg Neutrophils # Man Lymphocytes # (Manual) PT INR POC ABG pH POC ABG pCO2 POC ABG pO2 Potassium Chloride 112.5 H Carbon Dioxide 14 L BUN 94 H Creatinine 2.4 H Glucose 207 H POC Glucose 221 H 212 H Lactic Acid Calcium 7.7 L Total Bilirubin AST Total Creatine Kinase C-Reactive Protein Total Protein Albumin TSH Free T4 Urine WBC (Auto) Crossmatch Chest x-ray: report reviewed, image reviewed
[2018-12-10] MEDS: CORTISPORIN AU SCH ×3 (09:02→20:51)
[2018-12-10] MEDS: MAXIPIME/NS 2 GM/100 ML 2 GM/100 ML BAG IV SCH (09:27)
[2018-12-10] MEDS: SODIUM CHLORIDE FLUSH SYRINGE 10 ML IV SCH ×2 (09:27→22:50)
[2018-12-10] MEDS: PEPCID IV SCH (09:28)
--- NOTE | 2018-12-10 10:12 | Consultation ---
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 As per pt's family pt was found in bed unresponsive and EMS was called. in ER pt was obtunded, with a Reina Coma Scale of 3, breathing sonorously, and not protecting her airway requiring intubation. BP was as low as 69/35 requiring multiple IV boluses and vasopressor support with levophed. CT head showed extensive Rt middle cerebral artery distribution encephalomalacia from previous CVA however no acute intracranial abnormality. CT chest showed large pericardial effusion, left pleural effusion along with LLL infiltrate vs atelectasis. labs showed significant anemia with Hb as low as 6.8 requiring 2PRBC transfusion. it also showed e/o lactic acidosis, increased BUN/Cr at 64/1.5mg/dl now further worsening to 94/2.4mg/dl for which renal consult is requested. Past History Past Medical History: other (as per HPI) Past Surgical History: hysterectomy, Other ( colon polyps removed, pacemaker) Social history: denies: smoking, alcohol abuse Family history: hypertension Medications and Allergies Allergies Allergy/AdvReac Type Severity Reaction Status Date / Time Penicillins Allergy Hives Verified 12/08/18 13:13 Home Medications Medication Instructions Recorded Confirmed Last Taken Type ALBUTEROL Inhaler (OR & NICU) 2 puff IH QID PRN #1 inhalation 12/21/16 12/08/18 Unknown Rx [Proair] Albuterol Sulfate [Albuterol 0.63% 0.63 mg IH TID PRN #90 ml 12/21/16 12/08/18 Unknown Rx NEBS] Amlodipine Besylate [Norvasc] 10 mg PO DAILY #90 tablet 12/21/16 12/08/18 Unknown Rx AtorvaSTATin [Lipitor] 20 mg PO QHS #90 tablet 12/21/16 12/08/18 Unknown Rx Hydralazine HCl [Apresoline TAB] 50 mg PO TID #90 tablet 12/21/16 12/08/18 Unkn own Rx Metoprolol [Lopressor TAB] 25 mg PO BID #90 tablet 12/21/16 12/08/18 Unknown Rx Promethazine /Codeine 5 ml PO Q6H PRN #100 ml 12/21/16 12/08/18 Unknown Rx [Phenergan/Codeine 6.25-10 mg/5 ml] Active Meds: Active Medications Acetaminophen (Tylenol) 650 mg VA Q4H PRN PRN Reason: Pain MILD(1-3)/Fever >100.5/TURNER Last Admin: 12/09/18 10:00 Dose: 650 mg Documented by: Albuterol (Proventil) 2.5 mg IH Q4HRT PRN PRN Reason: Shortness Of Breath Albuterol/Ipratropium (Duoneb *Not For Prn Use*) 1 ampul IH Q6HRT KOLE Last Admin: 12/10/18 07:55 Dose: 1 ampul Documented by: Lipase/Protease/Amylase (Pancreaze Dr 10,500 Unit) 1 each FEEDTUBE PRN PRN PRN Reason: For Clogged Feeding Tube Famotidine (Pepcid) 20 mg IV DAILY [facility] Last Admin: 12/10/18 09:28 Dose: 20 mg Documented by: Hydrophilic Ointment (Vaseline Lip Therapy) 1 applic TP Q2HR PRN PRN Reason: Dry Lips Norepinephrine (Levophed Drip 4 Mg/Ns 250 Ml) 4 mg in 250 mls @ 7.5 mls/hr IV TITR KOLE; Protocol Last Titration: 12/08/18 20:00 Dose: 0 mcg/min, 0 mls/hr Documented by: Cefepime HCl (Maxipime/Ns 2 Gm/100 Ml) 2 gm in 100 mls @ 200 mls/hr IV Q24HR KOLE; Protocol Last Admin: 12/10/18 09:27 Dose: 200 mls/hr Documented by: Sodium Chloride (Nacl 0.9% 1000 Ml) 1,000 mls @ 125 mls/hr IV DIRECT KOLE Last Admin: 12/10/18 06:53 Dose: 125 mls/hr Documented by: Pantoprazole Sodium 80 mg/ (Sodium Chloride) 100 mls @ 10 mls/hr IV DIRECT KOLE Last Admin: 12/09/18 23:00 Dose: 8 mg/hr, 10 mls/hr Documented by: Labetalol HCl (Normodyne) 10 mg IV Q4H PRN PRN Reason: Hypertension Last Admin: 12/10/18 09:14 Dose: 10 mg Documented by: Multi-Ingred Cream/Lotion/Oil/Oint (Artificial Tears Ophth Oint) 1 applic OU Q4HR PRN PRN Reason: Dry Eye(s) Neomycin/Polymyxin/Hydrocortisone (Cortisporin) 4 drops AU TID [facility] Last Admin: 12/10/18 09:02 Dose: 4 drops Documented by: Ondansetron HCl (Zofran) 4 mg IV Q8H PRN PRN Reason: Nausea And Vomiting Pneumococcal Polyvalent Vaccine (Pneumovax 23) 0.5 ml IM .ONCE ONE Stop: 12/11/18 12:01 Simple Syrup (Simple Syrup) 15 ml FEEDTUBE PRN PRN PRN Reason: Hypoglycemia Simple Syrup (Simple Syrup) 30 ml FEEDTUBE PRN PRN PRN Reason: Hypoglycemia Sodium Bicarbonate (Sodium Bicarbonate) 325 mg FEEDTUBE PRN PRN PRN Reason: For Clogged Feeding Tube Sodium Chloride (Sodium Chloride Flush Syringe 10 Ml) 10 ml IV BID [facility] Last Admin: 12/10/18 09:27 Dose: 10 ml Documented by: Sodium Chloride (Sodium Chloride Flush Syringe 10 Ml) 10 ml IV PRN PRN PRN Reason: LINE FLUSH Review of Systems ROS unobtainable: due to endotracheal tube, due to mental status Exam - Vital Signs Vital signs: Vital Signs Pulse Resp 95 H 14 12/08/18 12:50 12/08/18 12:50 - General Appearance General appearance: appears stated age, sedated on ventilator, intubated EENT: ATNC, mucous membranes moist Neck: Present: neck supple Respiratory: Decreased Breath Sounds Heart: regular, S1S2 Gastrointestinal: Present: normoactive bowel sounds Integumentary: no rash, other (no edema ) Neurologic: other (intubated, sedated ) Results - Lab Results 12/10/18 04:38 12/10/18 04:38 Most recent lab results Calcium 7.7 mg/dL (8.4-10.2) L 12/10/18 04:38 Laboratory Tests 12/08/18 12/08/18 12/09/18 13:40 13:40 05:36 Lactic Acid 4.00 H* Calcium 7.9 L Total Bilirubin 1.60 H AST 44 H ALT 39 Alkaline Phosphatase 113 C-Reactive Protein Total Protein 5.2 L Albumin 2.4 L Albumin/Globulin Ratio 0.9 TSH Free T4 Urine Color Yolie Urine Turbidity Cloudy Urine pH 7.0 Ur Specific Stevenson 1.015 Urine Protein 100 mg/dl Urine Glucose (UA) Neg Urine Ketones Neg Urine Blood Sm Urine Nitrite Neg Urine Bilirubin Neg Urine Urobilinogen 2.0 Ur Leukocyte Esterase Mod Urine WBC (Auto) 157.0 H Urine RBC (Auto) 8.0 U Epithel Cells (Auto) 1.0 Urine Bacteria (Auto) 4+ Urine Mucus 2+ 12/09/18 12/09/18 12/09/18 15:54 15:54 18:18 Lactic Acid Calcium Total Bilirubin AST ALT Alkaline Phosphatase C-Reactive Protein 19.60 H Total Protein Albumin Albumin/Globulin Ratio TSH 0.268 L Free T4 0.58 L Urine Color Urine Turbidity Urine pH Ur Specific Stevenson Urine Protein Urine Glucose (UA) Urine Ketones Urine Blood Urine Nitrite Urine Bilirubin Urine Urobilinogen Ur Leukocyte Esterase Urine WBC (Auto) Urine RBC (Auto) U Epithel Cells (Auto) Urine Bacteria (Auto) Urine Mucus Assessment and Plan - Patient Problems (1) Acute kidney failure with tubular necrosis Current Visit: Yes Status: Acute Plan to address problem: suspect acute tubular necrosis in the setting of sepsis and hemorrhagic anemia leading to hypotension. possible GI bleed contributing to rising BUN. Unclear whether large pericardial effusion is acute or chronic, uremic pericarditis cannot be ruled out. Discussed with pt's next of kin (granddaughter) regarding possible need for hemodialysis if azotemia continues to worsen along with persistent pericardial effusion to treat possible uremic pericarditis. She understands risks and benefits and is agreeable for temporary HD if acute indications arise. For now will continue supportive care, cont IVF with 1/2 NS given worsening hyperchloremic met acidosis, maintain MAP > 65mmhg, avoid nephrotoxins, NSAIDs, IV contrasts. will monitor I/Os, lytes and renal paramete rs closely and make further recommendations. (2) Acute post-hemorrhagic anemia Current Visit: Yes Status: Acute Plan to address problem: s/p 2PRBC transfusion, monitor serial CBC and follow GI recommendations (3) Sepsis Current Visit: Yes Status: Acute Qualifiers: Sepsis type: sepsis due to unspecified organism Qualified Code(s): A41.9 - Sepsis, unspecified organism Plan to address problem: on ABXs incl vanco, cefepime, dose for eGFR < 30mls/min (4) Respiratory failure Current Visit: Yes Status: Acute Plan to address problem: vent management as per ICU team (5) Acute encephalopathy Current Visit: Yes Status: Acute (6) Pericardial effusion without cardiac tamponade Current Visit: Yes Status: Acute Plan to address problem: s/p ECHO, showing large pericardial effusion without tamponade pathology. follow cardiology recommendations regarding possible pericardiocentesis. if azotemia worsens further and increased risk for uremic pericarditis is present will consider HD. (7) HTN (hypertension) Current Visit: Yes Status: Chronic Plan to address problem: BP stabilized now off vasopressors (8) T2DM (type 2 diabetes mellitus) Current Visit: Yes Status: Chronic Qualifiers: Diabetes mellitus alf insulin use: unspecified alf insulin use status Plan to address problem: glucose control as per primary attending (9) Acidosis Current Visit: Yes Status: Acute Plan to address problem: initially lactic acidosis, now more hyperchloremic met acidosis, IVF changed to 1/2 NS
--- NOTE | 2018-12-10 10:41 | Progress Note ---
Assessment and Plan Cultures: Blood culture 12/08/2018 no growth so far. 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 Etiology UTI +/- right otitis media/mastoiditis +/- ?meningitis +/- severe anemia. - Blood culture 12/08/2018 no growth so far. -Lactate 4 - CXR no consolidation. 2) UTI: UA wbc 157, LE mod, on cefepime 3) Right otitis media / mastoiditis: Per grand-daughter, she has been c/o right ear pain and drainage last week. Patient was putting Neosporin and perhaps ear stephanie in the patient's ear. On physical exam, patient found to have purulent discharge from the right ear, and stephanie are removed by ED physician. There is probable perforation of the right sided tympanic membrane per ED physician. Started on dexametasone, cefepime and vanco 4) Acute encephalopathy: not better, from sepsis alone versus meningitis. CT head extensive right MCA encephalomalcia, right mastoid opacities. 5) Acute respiratory failure: CXR showed small left pleural effusion. CT chest showed large pericardial effusion, LLL atelectasis v/s infiltrate and left pleural effusion. 6) ?GI bleed 7) Severe anemia: ? Noted coffee-ground drainage from OG tube. 8) Severe thrombocytopenia: from sepsis 9) Large pericardial effusion: TTE EF>50, no echo evidence of tamponade 10) Penicillin allergy: tolerating cefepime 11) CKD: renally adjusted antibiotics Recommendations: - f/u blood cultures - obtain right ear culture - pending - when stable LP for CSF cell count, diff, protein, glucose, culture, Gram stain, VDRL, HSV and Crypto ag, LP ordered - continue cefepime, vancomycin renally adjusted for now Discussed with Dr Gomez Guarded prognosis Will follow. Pearl Mariee MD Infectious Diseases Access Service Representative [facility] ([facility] M [phone] O [phone] Subjective Date of service: 12/10/18 Principal diagnosis: acute respiratory failure, sepsis, urinary tract infection, mastoiditis Interval history: Remains intubated CMV fiO2 30% p6, unresponsive, on PPI gtt, no fever. ROS unable to obtain Objective - Exam Narrative Exam: General appearance: lethargic in NAD on the vent intubated Eyes: + mild icteric sclerae, gustavo edematous conjunctivae; no lid-lag; PERRLA HENT: Atraumatic; oropharynx +ETT. +right ear external canal with edema Neck: Trachea midline; supple, no thyromegaly or lymphadenopathy Lungs: gustavo coarse BS CV: tachycardic Abdomen: Soft, mild tenderness Extremities: No peripheral edema or extremity lymphadenopathy Skin: Normal temperature, turgor and texture; no rash, ulcers or subcutaneous nodules Psych: lethargic. Neuro: lethargic - Constitutional Vitals: Vital Signs Temp Pulse Resp BP Pulse Ox 92.4 F L 61 18 183/65 100 12/10/18 07:29 12/10/18 09:14 12/10/18 08:30 12/10/18 09:14 12/10/18 07:50 Temperature -Last 24 Hours Temperature 92.4 F Temperature 98.9 F Temperature 97.7 F Temperature 98.9 F Temperature 99.6 F Temperature 99.7 F Temperature 98.7 F - Labs CBC & Chem 7: 12/10/18 04:38 12/10/18 04:38 Labs: Abnormal lab results 12/09/18 12/09/18 12/09/18 Range/Units 05:36 10:47 13:46 WBC (4.5-11.0) K/mm3 MCV (79-97) fl MCH (28-32) pg RDW (13.2-15.2) % Plt Count 68 L (140-440) K/mm3 Lymph % (Auto) (13.4-35.0) % Lymph # (1.2-5.4) K/mm3 Seg Neutrophils % (40.0-70.0) % Seg Neutrophils # (1.8-7.7) K/mm3 POC ABG pH (7.35-7.45) POC ABG pCO2 (35-45) POC ABG pO2 (80-105) Chloride (98-107) mmol/L Carbon Dioxide (22-30) mmol/L BUN (7-17) mg/dL Creatinine (0.7-1.2) mg/dL Glucose (65-100) mg/dL POC Glucose 150 H 162 H (70-105) Calcium (8.4-10.2) mg/dL C-Reactive Protein (0.00-1.30) mg/dL TSH (0.270-4.200) mlU/mL Free T4 (0.76-1.46) ng/dL 12/09/18 12/09/18 12/09/18 Range/Units 15:54 15:54 16:40 WBC (4.5-11.0) K/mm3 MCV (79-97) fl MCH (28-32) pg RDW (13.2-15.2) % Plt Count (140-440) K/mm3 Lymph % (Auto) (13.4-35.0) % Lymph # (1.2-5.4) K/mm3 Seg Neutrophils % (40.0-70.0) % Seg Neutrophils # (1.8-7.7) K/mm3 POC ABG pH (7.35-7.45) POC ABG pCO2 (35-45) POC ABG pO2 (80-105) Chloride (98-107) mmol/L Carbon Dioxide (22-30) mmol/L BUN (7-17) mg/dL Creatinine (0.7-1.2) mg/dL Glucose (65-100) mg/dL POC Glucose 197 H (70-105) Calcium (8.4-10.2) mg/dL C-Reactive Protein (0.00-1.30) mg/dL TSH 0.268 L (0.270-4.200) mlU/mL Free T4 0.58 L (0.76-1.46) ng/dL 12/09/18 12/09/18 12/09/18 Range/Units 18:18 18:18 21:51 WBC (4.5-11.0) K/mm3 MCV (79-97) fl MCH (28-32) pg RDW (13.2-15.2) % Plt Count (140-440) K/mm3 Lymph % (Auto) (13.4-35.0) % Lymph # (1.2-5.4) K/mm3 Seg Neutrophils % (40.0-70.0) % Seg Neutrophils # (1.8-7.7) K/mm3 POC ABG pH (7.35-7.45) POC ABG pCO2 (35-45) POC ABG pO2 (80-105) Chloride 108.2 H (98-107) mmol/L Carbon Dioxide 16 L (22-30) mmol/L BUN 89 H (7-17) mg/dL Creatinine 2.3 H (0.7-1.2) mg/dL Glucose 180 H (65-100) mg/dL POC Glucose 198 H (70-105) Calcium 7.9 L (8.4-10.2) mg/dL C-Reactive Protein 19.60 H (0.00-1.30) mg/dL TSH (0.270-4.200) mlU/mL Free T4 (0.76-1.46) ng/dL 12/10/18 12/10/18 12/10/18 Range/Units 01:59 04:14 04:38 WBC 11.5 H (4.5-11.0) K/mm3 MCV 75 L (79-97) fl MCH 25 L (28-32) pg RDW 21.1 H (13.2-15.2) % Plt Count 81 L (140-440) K/mm3 Lymph % (Auto) 5.6 L (13.4-35.0) % Lymph # 0.6 L (1.2-5.4) K/mm3 Seg Neutrophils % 89.8 H (40.0-70.0) % Seg Neutrophils # 10.3 H (1.8-7.7) K/mm3 POC ABG pH 7.273 L (7.35-7.45) POC ABG pCO2 32.1 L (35-45) POC ABG pO2 161 H (80-105) Chloride (98-107) mmol/L Carbon Dioxide (22-30) mmol/L BUN (7-17) mg/dL Creatinine (0.7-1.2) mg/dL Glucose (65-100) mg/dL POC Glucose 219 H (70-105) Calcium (8.4-10.2) mg/dL C-Reactive Protein (0.00-1.30) mg/dL TSH (0.270-4.200) mlU/mL Free T4 (0.76-1.46) ng/dL 12/10/18 12/10/18 12/10/18 Range/Units 04:38 05:07 07:26 WBC (4.5-11.0) K/mm3 MCV (79-97) fl MCH (28-32) pg RDW (13.2-15.2) % Plt Count (140-440) K/mm3 Lymph % (Auto) (13.4-35.0) % Lymph # (1.2-5.4) K/mm3 Seg Neutrophils % (40.0-70.0) % Seg Neutrophils # (1.8-7.7) K/mm3 POC ABG pH (7.35-7.45) POC ABG pCO2 (35-45) POC ABG pO2 (80-105) Chloride 112.5 H (98-107) mmol/L Carbon Dioxide 14 L (22-30) mmol/L BUN 94 H (7-17) mg/dL Creatinine 2.4 H (0.7-1.2) mg/dL Glucose 207 H (65-100) mg/dL POC Glucose 221 H 212 H (70-105) Calcium 7.7 L (8.4-10.2) mg/dL C-Reactive Protein (0.00-1.30) mg/dL TSH (0.270-4.200) mlU/mL Free T4 (0.76-1.46) ng/dL
--- NOTE | 2018-12-10 11:03 | Gastroenterology Progress Note ---
<SHADE DAMON - Last Filed: 12/10/18 11:04> Assessment and Plan 1.coffee ground emesis 2.H/o chronic anemia requiring previous blood transfusions -H/H 10.5/32.1- stable s/p transfusion -continue to monitor H/H and transfuse as needed -no active signs of bleeding overnight or this am per nursing. drainage from OG tube now bilious in color. No hematemeis, melena, or hematochezia. -prior GI workup for anemia unknown -etiology unclear-possible ulcer vs trauma vs other -clinically, patient remains acutely ill in ICU, unresponsive on vent. -no plans for scope at this unless overt bleeding develops -continue PPI and supportive care -no further GI recommendations at this time -will sign off, please call back if needed for overt bleeding 3.acute respiratory failure-on vent; pulmonary following 4.sepsis-ID following 5.UTI 6.pericardial effusion-cardiology following 7.H/o CVA 8.HTN 9.DM Subjective Date of service: 12/10/18 Principal diagnosis: coffee-ground drainage Interval history: Patient in ICU, unreponsive on vent. No active signs of bleeding overnight or this am per nursing. Drainage from OG tube now bilious in color. Objective - Constitutional Vitals: Temp Pulse Resp BP Pulse Ox 92.4 F L 61 18 183/65 100 12/10/18 07:29 12/10/18 09:14 12/10/18 08:30 12/10/18 09:14 12/10/18 07:50 General appearance: other (unresponsive on vent) - Respiratory Respiratory: bilateral: diminished - Cardiovascular Rhythm: regular - Gastrointestinal General gastrointestinal: Present: soft, non-distended, normal bowel sounds - Labs CBC & Chem 7: 12/10/18 04:38 12/10/18 04:38 Labs: Laboratory Results - last 24 hr 12/09/18 12/09/18 12/09/18 05:36 13:46 15:54 WBC RBC Hgb Hct MCV MCH MCHC RDW Plt Count 68 L Lymph % (Auto) Wayne % (Auto) Eos % (Auto) Baso % (Auto) Lymph # Wayne # Eos # Baso # Seg Neutrophils % Seg Neutrophils # POC ABG pH POC ABG pCO2 POC ABG pO2 POC ABG HCO3 POC ABG Total CO2 POC ABG O2 Sat POC ABG Base Excess FiO2 Sodium Potassium Chloride Carbon Dioxide Anion Gap BUN Creatinine Estimated GFR BUN/Creatinine Ratio Glucose POC Glucose 162 H Hemoglobin A1c Calcium C-Reactive Protein TSH Free T4 0.58 L 12/09/18 12/09/18 12/09/18 15:54 16:40 18:18 WBC RBC Hgb Hct MCV MCH MCHC RDW Plt Count Lymph % (Auto) Wayne % (Auto) Eos % (Auto) Baso % (Auto) Lymph # Wayne # Eos # Baso # Seg Neutrophils % Seg Neutrophils # POC ABG pH POC ABG pCO2 POC ABG pO2 POC ABG HCO3 POC ABG Total CO2 POC ABG O2 Sat POC ABG Base Excess FiO2 Sodium 141 Potassium 4.8 Chloride 108.2 H Carbon Dioxide 16 L Anion Gap 22 BUN 89 H Creatinine 2.3 H Estimated GFR 24 BUN/Creatinine Ratio 39 Glucose 180 H POC Glucose 197 H Hemoglobin A1c Calcium 7.9 L C-Reactive Protein TSH 0.268 L Free T4 12/09/18 12/09/18 12/10/18 18:18 21:51 01:59 WBC RBC Hgb Hct MCV MCH MCHC RDW Plt Count Lymph % (Auto) Wayne % (Auto) Eos % (Auto) Baso % (Auto) Lymph # Wayne # Eos # Baso # Seg Neutrophils % Seg Neutrophils # POC ABG pH POC ABG pCO2 POC ABG pO2 POC ABG HCO3 POC ABG Total CO2 POC ABG O2 Sat POC ABG Base Excess FiO2 Sodium Potassium Chloride Carbon Dioxide Anion Gap BUN Creatinine Estimated GFR BUN/Creatinine Ratio Glucose POC Glucose 198 H 219 H Hemoglobin A1c Calcium C-Reactive Protein 19.60 H TSH Free T4 12/10/18 12/10/18 12/10/18 04:14 04:38 04:38 WBC 11.5 H RBC 4.29 Hgb 10.5 Hct 32.1 MCV 75 L MCH 25 L MCHC 33 RDW 21.1 H Plt Count 81 L Lymph % (Auto) 5.6 L Wayne % (Auto) 4.2 Eos % (Auto) 0.3 Baso % (Auto) 0.1 Lymph # 0.6 L Wayne # 0.5 Eos # 0.0 Baso # 0.0 Seg Neutrophils % 89.8 H Seg Neutrophils # 10.3 H POC ABG pH 7.273 L POC ABG pCO2 32.1 L POC ABG pO2 161 H POC ABG HCO3 14.8 POC ABG Total CO2 16 POC ABG O2 Sat 99 POC ABG Base Excess -12 FiO2 30 Sodium 144 Potassium 4.3 Chloride 112.5 H Carbon Dioxide 14 L Anion Gap 22 BUN 94 H Creatinine 2.4 H Estimated GFR 23 BUN/Creatinine Ratio 39 Glucose 207 H POC Glucose Hemoglobin A1c Calcium 7.7 L C-Reactive Protein TSH Free T4 12/10/18 12/10/18 12/10/18 04:38 05:07 07:26 WBC RBC Hgb Hct MCV MCH MCHC RDW Plt Count Lymph % (Auto) Wayne % (Auto) Eos % (Auto) Baso % (Auto) Lymph # Wayne # Eos # Baso # Seg Neutrophils % Seg Neutrophils # POC ABG pH POC ABG pCO2 POC ABG pO2 POC ABG HCO3 POC ABG Total CO2 POC ABG O2 Sat POC ABG Base Excess FiO2 Sodium Potassium Chloride Carbon Dioxide Anion Gap BUN Creatinine Estimated GFR BUN/Creatinine Ratio Glucose POC Glucose 221 H 212 H Hemoglobin A1c 4.9 Calcium C-Reactive Protein TSH Free T4 <PAUL HAWLEY - Last Filed: 12/10/18 13:00> Assessment and Plan Patient seen and examined, note reviewed, and I agree with the advanced practitioner's plan and assessment with the following additions: soft abd, gastric suctioning is bilious green with no coffee grounds no blood; continue to monitor clinically and serial hgb's but risk of endoscopy outweighs benefit given lack of significant overt GI bleeding. Please call back if any overt bleeding Objective - Constitutional Vitals: Temp Pulse Resp BP Pulse Ox 90.8 F L 60 18 151/71 100 12/10/18 11:34 12/10/18 11:08 12/10/18 08:30 12/10/18 11:08 12/10/18 11:08 - Labs CBC & Chem 7: 12/10/18 04:38 12/10/18 04:38 Labs: Laboratory Results - last 24 hr 12/09/18 12/09/18 12/09/18 13:46 15:54 15:54 WBC RBC Hgb Hct MCV MCH MCHC RDW Plt Count Lymph % (Auto) Wayne % (Auto) Eos % (Auto) Baso % (Auto) Lymph # Wayne # Eos # Baso # Seg Neutrophils % Seg Neutrophils # PT INR APTT POC ABG pH POC ABG pCO2 POC ABG pO2 POC ABG HCO3 POC ABG Total CO2 POC ABG O2 Sat POC ABG Base Excess FiO2 Sodium Potassium Chloride Carbon Dioxide Anion Gap BUN Creatinine Estimated GFR BUN/Creatinine Ratio Glucose POC Glucose 162 H Hemoglobin A1c Calcium C-Reactive Protein TSH 0.268 L Free T4 0.58 L Random Vancomycin 12/09/18 12/09/18 12/09/18 16:40 18:18 18:18 WBC RBC Hgb Hct MCV MCH MCHC RDW Plt Count Lymph % (Auto) Wayne % (Auto) Eos % (Auto) Baso % (Auto) Lymph # Wayne # Eos # Baso # Seg Neutrophils % Seg Neutrophils # PT INR APTT POC ABG pH POC ABG pCO2 POC ABG pO2 POC ABG HCO3 POC ABG Total CO2 POC ABG O2 Sat POC ABG Base Excess FiO2 Sodium 141 Potassium 4.8 Chloride 108.2 H Carbon Dioxide 16 L Anion Gap 22 BUN 89 H Creatinine 2.3 H Estimated GFR 24 BUN/Creatinine Ratio 39 Glucose 180 H POC Glucose 197 H Hemoglobin A1c Calcium 7.9 L C-Reactive Protein 19.60 H TSH Free T4 Random Vancomycin 12/09/18 12/10/18 12/10/18 21:51 01:59 04:14 WBC RBC Hgb Hct MCV MCH MCHC RDW Plt Count Lymph % (Auto) Wayne % (Auto) Eos % (Auto) Baso % (Auto) Lymph # Wayne # Eos # Baso # Seg Neutrophils % Seg Neutrophils # PT INR APTT POC ABG pH 7.273 L POC ABG pCO2 32.1 L POC ABG pO2 161 H POC ABG HCO3 14.8 POC ABG Total CO2 16 POC ABG O2 Sat 99 POC ABG Base Excess -12 FiO2 30 Sodium Potassium Chloride Carbon Dioxide Anion Gap BUN Creatinine Estimated GFR BUN/Creatinine Ratio Glucose POC Glucose 198 H 219 H Hemoglobin A1c Calcium C-Reactive Protein TSH Free T4 Random Vancomycin 12/10/18 12/10/18 12/10/18 04:38 04:38 04:38 WBC 11.5 H RBC 4.29 Hgb 10.5 Hct 32.1 MCV 75 L MCH 25 L MCHC 33 RDW 21.1 H Plt Count 81 L Lymph % (Auto) 5.6 L Wayne % (Auto) 4.2 Eos % (Auto) 0.3 Baso % (Auto) 0.1 Lymph # 0.6 L Wayne # 0.5 Eos # 0.0 Baso # 0.0 Seg Neutrophils % 89.8 H Seg Neutrophils # 10.3 H PT INR APTT POC ABG pH POC ABG pCO2 POC ABG pO2 POC ABG HCO3 POC ABG Total CO2 POC ABG O2 Sat POC ABG Base Excess FiO2 Sodium 144 Potassium 4.3 Chloride 112.5 H Carbon Dioxide 14 L Anion Gap 22 BUN 94 H Creatinine 2.4 H Estimated GFR 23 BUN/Creatinine Ratio 39 Glucose 207 H POC Glucose Hemoglobin A1c 4.9 Calcium 7.7 L C-Reactive Protein TSH Free T4 Random Vancomycin 12/10/18 12/10/18 12/10/18 05:07 07:26 10:40 WBC RBC Hgb Hct MCV MCH MCHC RDW Plt Count Lymph % (Auto) Wayne % (Auto) Eos % (Auto) Baso % (Auto) Lymph # Wayne # Eos # Baso # Seg Neutrophils % Seg Neutrophils # PT INR APTT POC ABG pH POC ABG pCO2 POC ABG pO2 POC ABG HCO3 POC ABG Total CO2 POC ABG O2 Sat POC ABG Base Excess FiO2 Sodium Potassium Chloride Carbon Dioxide Anion Gap BUN Creatinine Estimated GFR BUN/Creatinine Ratio Glucose POC Glucose 221 H 212 H Hemoglobin A1c Calcium C-Reactive Protein TSH Free T4 Random Vancomycin 4.6 12/10/18 12/10/18 10:40 11:15 WBC RBC Hgb Hct MCV MCH MCHC RDW Plt Count Lymph % (Auto) Wayne % (Auto) Eos % (Auto) Baso % (Auto) Lymph # Wayne # Eos # Baso # Seg Neutrophils % Seg Neutrophils # PT 21.4 H INR 1.73 H APTT 30.9 POC ABG pH POC ABG pCO2 POC ABG pO2 POC ABG HCO3 POC ABG Total CO2 POC ABG O2 Sat POC ABG Base Excess FiO2 Sodium Potassium Chloride Carbon Dioxide Anion Gap BUN Creatinine Estimated GFR BUN/Creatinine Ratio Glucose POC Glucose 227 H Hemoglobin A1c Calcium C-Reactive Protein TSH Free T4 Random Vancomycin
[2018-12-10 11:28] LABS: INR 1.73 (0.87-1.13); Partial Thromboplastin Time 30.9 Sec. (24.2-36.6)
[2018-12-10] MEDS ORDERED: VITAMIN K (ADULT ONLY) 10 MG in NACL 0.9% 50 ML IV ONE (13:00)
[2018-12-10] MEDS: NACL 0.45% 1000 ML 1,000 ML IV SCH (13:28)
--- NOTE | 2018-12-10 13:38 | Progress Note ---
Assessment and Plan Cont supportive measures. Cont PRN IV lopressor and plan to convert to PO once enteral intake is resumed. The patient has been seen in conjunction with Dr. Bonilla who agrees with the assessment and plan of care. - Patient Problems (1) Pericardial effusion Current Visit: Yes Status: Acute (2) Acute respiratory failure with hypoxia Current Visit: Yes Status: Acute (3) Sepsis Current Visit: Yes Status: Acute Qualifiers: Sepsis type: sepsis due to unspecified organism Qualified Code(s): A41.9 - Sepsis, unspecified organism (4) UTI (urinary tract infection) Current Visit: Yes Status: Acute (5) Altered mental status Current Visit: Yes Status: Acute (6) GI bleed Current Visit: Yes Status: Acute (7) History of CVA (cerebrovascular accident) Current Visit: Yes Status: Chronic (8) HLD (hyperlipidemia) Current Visit: Yes Status: Chronic Qualifiers: Hyperlipidemia type: mixed hyperlipidemia Qualified Code(s): E78.2 - Mixed hyperlipidemia (9) HTN (hypertension) Current Visit: Yes Status: Chronic (10) T2DM (type 2 diabetes mellitus) Current Visit: Yes Status: Chronic Qualifiers: Diabetes mellitus fpc insulin use: unspecified fpc insulin use status (11) MARYANN (acute kidney injury) Current Visit: Yes Status: Acute Subjective Date of service: 12/10/18 Principal diagnosis: coffee-ground drainage Interval history: pt remains intubated, unresponsive. no family members at bedside. Objective Last Vital Signs Temp 90.8 F L 12/10/18 11:34 Pulse 60 12/10/18 13:18 Resp 18 12/10/18 13:18 BP 151/71 12/10/18 11:08 Pulse Ox 100 12/10/18 11:08 - Physical Examination General: Other (intubated, nonresponsive ) Neck: Positive: neck supple Cardiac: Positive: Reg Rate and Rhythm, S1/S2 Lungs: Positive: Decreased Breath Sounds, Ventilated Respirations Neuro: Positive: Other (intubated, nonresponsive) - Labs and Meds Coagulation 12/10/18 Range/Units 10:40 PT 21.4 H (12.2-14.9) Sec. INR 1.73 H (0.87-1.13) APTT 30.9 (24.2-36.6) Sec. CBC 12/10/18 Range/Units 04:38 WBC 11.5 H (4.5-11.0) K/mm3 RBC 4.29 (3.65-5.03) M/mm3 Hgb 10.5 (10.1-14.3) gm/dl Hct 32.1 (30.3-42.9) % Plt Count 81 L (140-440) K/mm3 Lymph # 0.6 L (1.2-5.4) K/mm3 [place] # 0.5 (0.0-0.8) K/mm3 Eos # 0.0 (0.0-0.4) K/mm3 Baso # 0.0 (0.0-0.1) K/mm3 Comprehensive Metabolic Panel 12/09/18 12/10/18 Range/Units 18:18 04:38 Sodium 141 144 (137-145) mmol/L Potassium 4.8 4.3 (3.6-5.0) mmol/L Chloride 108.2 H 112.5 H (98-107) mmol/L Carbon Dioxide 16 L 14 L (22-30) mmol/L BUN 89 H 94 H (7-17) mg/dL Creatinine 2.3 H 2.4 H (0.7-1.2) mg/dL Glucose 180 H 207 H (65-100) mg/dL Calcium 7.9 L 7.7 L (8.4-10.2) mg/dL - Telemetry EKG Rhythm: Sinus Rhythm
[2018-12-10] MEDS: APRESOLINE PO SCH ×2 (13:45→21:02)
[2018-12-10] MEDS ORDERED: VANCOMYCIN 1,250 MG in NACL 0.9% 250ML 250 ML IV ONE (14:00)
--- NOTE | 2018-12-10 15:02 | Progress Note ---
Assessment and Plan /Acute respiratory failure, intubated Likely from underlying severe sepsis and pleural effusion? [employer] Technician/Pulm consulted Continue nebs, continue antibiotics Wean off vent support as tolerated CXR showed small left pleural effusion. CT chest showed large pericardial effusion, LLL atelectasis v/s infiltrate and left pleural effusion. /Acute encephalopathy: likely from sepsis alone versus meningitis. CT head extensive right MCA encephalomalcia, right mastoid opacities. /Sepsis likely due to UTI , right mastoiditis Blood cultures drawn Started on Cefepime, vanco /Hypotension/septic shock On Levophed /Left lower lobe infiltrate, poss pneumonia - Treat with antibiotic for now /Large Pericardial effusion. TTE EF>50, no echo evidence of tamponade. cardiology consulted and recommended medical management for now /Coffe ground contents from NG aspirate cont Protonix drip, Consulted GI Monitor H/H /MARYANN on CKD 3 baseline Cr around 1.2-1.5mg/dl likely due to underlying sepsis Monitor BMP, Consult nephrology /Acute on chronic anemia has h/o anemia requiring previous blood transfusions could be multifactorial, GI on board s/p 2 Units PRBC transfused on 12/08/18 / h/o Hypertension - pt now hypotensive from sepsis /Diabetes type 2, SSI as needed Full code status. 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 In the ED, She was found in acute respiratory failure, requiring bag valve mask ventilation and hypotensive. Noted coffee-ground drainage from OG tube and patient also found to have purulent discharge from the right ear, and stephanie are removed by ED physician. Patient was intubated in the ER and admitted to the ICU for further evaluation and management. Blood culture 12/08/[address] no [address]. [address] head extensive right MCA encephalomalcia, right mastoid opacities. CXR showed small left pleural effusion. CT chest showed large pericardial effusion, LLL atelectasis v/s infiltrate and left pleural effusion. s/p 2 units PRBc transfusion on 12/08/18. renal consulted for worsening renal function. Hospitalist Physical GEN: Intubated, On vent, not in acute distress HEENT: Normocephalic, atraumatic, Neck: supple, No JVD Cardio: s1 and s2 positive Lungs: Clear to auscultation bilaterally, no wheeze Abd:soft, non tender, non distended, normal bowel sounds Ext: No edema, no clubbing, no cyanosis Neuro: Intubated, does not follow commend Skin: No rash The high probability of a clinically significant, sudden or life threatening deterioration of the [multiple] system(s) required my full and direct attention, intervention and personal management. The aggregate critical care time was [35] minutes. This time is in addition to time spent performing reported procedures but includes the following: [x] Data Review and interpretation [x] Patient assessment and monitoring of vital signs [x] Documentation [x] Medication orders and management Subjective Date of service: 12/10/18 Principal diagnosis: coffee-ground drainage Interval history: Patient seen and examined. Medical records and medication list reviewed. No acute event overnight noted by the RN. Patient will remain intubated, tolerating tube feeding diet Discussed plan of care at bedside with RN. Objective - Constitutional Vitals: Vital Signs - 12hr 12/10/18 12/10/18 12/10/18 03:15 03:16 03:25 Temperature Pulse Rate 60 Pulse Rate [ 61 62 Anterior Bilateral] Respiratory 18 18 Rate [Anterior Bilateral] Blood Pressure 172/73 O2 Sat by Pulse 100 Oximetry 12/10/18 12/10/18 12/10/18 03:29 07:29 07:50 Temperature 98.9 F 92.4 F L Pulse Rate 63 Pulse Rate [ Anterior Bilateral] Respiratory Rate [Anterior Bilateral] Blood Pressure 163/69 O2 Sat by Pulse 100 Oximetry 12/10/18 12/10/18 12/10/18 07:56 08:30 09:14 Temperature Pulse Rate 61 Pulse Rate [ 61 60 Anterior Bilateral] Respiratory 18 18 Rate [Anterior Bilateral] Blood Pressure 183/65 O2 Sat by Pulse Oximetry 12/10/18 12/10/18 12/10/18 11:08 11:34 13:18 Temperature 90.8 F L Pulse Rate 60 Pulse Rate [ 60 Anterior Bilateral] Respiratory 18 Rate [Anterior Bilateral] Blood Pressure 151/71 O2 Sat by Pulse 100 Oximetry 12/10/18 12/10/18 13:45 14:18 Temperature Pulse Rate 61 61 Pulse Rate [ 60 Anterior Bilateral] Respiratory 18 Rate [Anterior Bilateral] Blood Pressure 158/76 157/72 O2 Sat by Pulse 100 Oximetry - Labs CBC & Chem 7: 12/10/18 04:38 12/10/18 04:38 Labs: Abnormal lab results 12/09/18 12/09/18 12/09/18 Range/Units 15:54 15:54 16:40 WBC (4.5-11.0) K/mm3 MCV (79-97) fl MCH (28-32) pg RDW (13.2-15.2) % Plt Count (140-440) K/mm3 Lymph % (Auto) (13.4-35.0) % Lymph # (1.2-5.4) K/mm3 Seg Neutrophils % (40.0-70.0) % Seg Neutrophils # (1.8-7.7) K/mm3 PT (12.2-14.9) Sec. INR (0.87-1.13) POC ABG pH (7.35-7.45) POC ABG pCO2 (35-45) POC ABG pO2 (80-105) Chloride (98-107) mmol/L Carbon Dioxide (22-30) mmol/L BUN (7-17) mg/dL Creatinine (0.7-1.2) mg/dL Glucose (65-100) mg/dL POC Glucose 197 H (70-105) Calcium (8.4-10.2) mg/dL C-Reactive Protein (0.00-1.30) mg/dL TSH 0.268 L (0.270-4.200) mlU/mL Free T4 0.58 L (0.76-1.46) ng/dL 12/09/18 12/09/18 12/09/18 Range/Units 18:18 18:18 21:51 WBC (4.5-11.0) K/mm3 MCV (79-97) fl MCH (28-32) pg RDW (13.2-15.2) % Plt Count (140-440) K/mm3 Lymph % (Auto) (13.4-35.0) % Lymph # (1.2-5.4) K/mm3 Seg Neutrophils % (40.0-70.0) % Seg Neutrophils # (1.8-7.7) K/mm3 PT (12.2-14.9) Sec. INR (0.87-1.13) POC ABG pH (7.35-7.45) POC ABG pCO2 (35-45) POC ABG pO2 (80-105) Chloride 108.2 H (98-107) mmol/L Carbon Dioxide 16 L (22-30) mmol/L BUN 89 H (7-17) mg/dL Creatinine 2.3 H (0.7-1.2) mg/dL Glucose 180 H (65-100) mg/dL POC Glucose 198 H (70-105) Calcium 7.9 L (8.4-10.2) mg/dL C-Reactive Protein 19.60 H (0.00-1.30) mg/dL TSH (0.270-4.200) mlU/mL Free T4 (0.76-1.46) ng/dL 12/10/18 12/10/18 12/10/18 Range/Units 01:59 04:14 04:38 WBC 11.5 H (4.5-11.0) K/mm3 MCV 75 L (79-97) fl MCH 25 L (28-32) pg RDW 21.1 H (13.2-15.2) % Plt Count 81 L (140-440) K/mm3 Lymph % (Auto) 5.6 L (13.4-35.0) % Lymph # 0.6 L (1.2-5.4) K/mm3 Seg Neutrophils % 89.8 H (40.0-70.0) % Seg Neutrophils # 10.3 H (1.8-7.7) K/mm3 PT (12.2-14.9) Sec. INR (0.87-1.13) POC ABG pH 7.273 L (7.35-7.45) POC ABG pCO2 32.1 L (35-45) POC ABG pO2 161 H (80-105) Chloride (98-107) mmol/L Carbon Dioxide (22-30) mmol/L BUN (7-17) mg/dL Creatinine (0.7-1.2) mg/dL Glucose (65-100) mg/dL POC Glucose 219 H (70-105) Calcium (8.4-10.2) mg/dL C-Reactive Protein (0.00-1.30) mg/dL TSH (0.270-4.200) mlU/mL Free T4 (0.76-1.46) ng/dL 12/10/18 12/10/18 12/10/18 Range/Units 04:38 05:07 07:26 WBC (4.5-11.0) K/mm3 MCV (79-97) fl MCH (28-32) pg RDW (13.2-15.2) % Plt Count (140-440) K/mm3 Lymph % (Auto) (13.4-35.0) % Lymph # (1.2-5.4) K/mm3 Seg Neutrophils % (40.0-70.0) % Seg Neutrophils # (1.8-7.7) K/mm3 PT (12.2-14.9) Sec. INR (0.87-1.13) POC ABG pH (7.35-7.45) POC ABG pCO2 (35-45) POC ABG pO2 (80-105) Chloride 112.5 H (98-107) mmol/L Carbon Dioxide 14 L (22-30) mmol/L BUN 94 H (7-17) mg/dL Creatinine 2.4 H (0.7-1.2) mg/dL Glucose 207 H (65-100) mg/dL POC Glucose 221 H 212 H (70-105) Calcium 7.7 L (8.4-10.2) mg/dL C-Reactive Protein (0.00-1.30) mg/dL TSH (0.270-4.200) mlU/mL Free T4 (0.76-1.46) ng/dL 12/10/18 12/10/18 12/10/18 Range/Units 10:40 11:15 14:21 WBC (4.5-11.0) K/mm3 MCV (79-97) fl MCH (28-32) pg RDW (13.2-15.2) % Plt Count (140-440) K/mm3 Lymph % (Auto) (13.4-35.0) % Lymph # (1.2-5.4) K/mm3 Seg Neutrophils % (40.0-70.0) % Seg Neutrophils # (1.8-7.7) K/mm3 PT 21.4 H (12.2-14.9) Sec. INR 1.73 H (0.87-1.13) POC ABG pH 7.214 L (7.35-7.45) POC ABG pCO2 32.8 L (35-45) POC ABG pO2 (80-105) Chloride (98-107) mmol/L Carbon Dioxide (22-30) mmol/L BUN (7-17) mg/dL Creatinine (0.7-1.2) mg/dL Glucose (65-100) mg/dL POC Glucose 227 H (70-105) Calcium (8.4-10.2) mg/dL C-Reactive Protein (0.00-1.30) mg/dL TSH (0.270-4.200) mlU/mL Free T4 (0.76-1.46) ng/dL
[2018-12-10] MEDS ORDERED: SODIUM BICARBONATE IV ONE (15:30)
[2018-12-10] MEDS ORDERED: D5W IV ONE (15:30)
[2018-12-10] MEDS: PROTONIX IV SCH (22:49)
[2018-12-11] MEDS: DUONEB *Not for PRN Use IH SCH ×4 (01:55→19:07)
--- NOTE | 2018-12-11 03:21 | XRay Report ---
PROCEDURE: XR CHEST 1V AP TECHNIQUE: A portable upright view the chest was obtained. HISTORY: follow up respiratory failure COMPARISONS: 12/10/2018 FINDINGS: The heart is mildly enlarged. The pulmonary vasculature is at the upper limits of normal. There are n o infiltrates or effusions. The ET tube and NG tube appear in good position. The tip of the right int ernal jugular line is in the mid SVC. Left-sided pacemaker with the distal leads in proper position. The skeletal structures otherwise are unchanged. IMPRESSION: No acute cardiopulmonary process. Satisfactory position of tubes and lines.. This document is electronically signed by Ravi Corley MD., December 11 2018 03:19:01 AM ET
[2018-12-11] MEDS: APRESOLINE PO SCH ×3 (07:02→21:19)
[2018-12-11 07:45] LABS: INR 1.54 (0.87-1.13)
[2018-12-11] MEDS: CORTISPORIN AU SCH ×3 (09:00→21:19)
--- NOTE | 2018-12-11 09:32 | Progress Note ---
Assessment and Plan Acute respiratory failure on ventilatory support Sepsis. Urinary tract infection origin versus mastoiditis/otitis. On ABX.No fever Acute on chronic kidney injury AMS Metabolic acidosis. Got HCO3 yesterday, improved Recommendations Continue antibiotics Monitor hemodynamics Monitor platelets, better,INR improved LP rescheduled Off sedation Maintain extubation precautions DVT prophylaxis PPI prophylaxis Critical care time was 31 minutes of [id number] evaluation and coordination of care Subjective Date of service: 12/11/18 Principal diagnosis: coffee-ground drainage Interval history: Intubated Objective Vital Signs - 12hr 12/10/18 12/10/18 12/10/18 21:40 21:50 22:00 Temperature Pulse Rate 62 68 69 Pulse Rate [ Anterior Bilateral] Respiratory 18 16 12 Rate Respiratory Rate [Anterior Bilateral] Blood Pressure 191/83 191/83 140/64 O2 Sat by Pulse 100 100 Oximetry 12/10/18 12/10/18 12/10/18 22:10 22:20 22:30 Temperature Pulse Rate 70 70 69 Pulse Rate [ Anterior Bilateral] Respiratory 10 L 11 L 10 L Rate Respiratory Rate [Anterior Bilateral] Blood Pressure 140/64 140/64 123/60 O2 Sat by Pulse 100 100 100 Oximetry 12/10/18 12/10/18 12/10/18 22:40 22:50 23:00 Temperature Pulse Rate 69 71 72 Pulse Rate [ Anterior Bilateral] Respiratory 12 14 14 Rate Respiratory Rate [Anterior Bilateral] Blood Pressure 123/60 123/60 127/66 O2 Sat by Pulse 100 100 100 Oximetry 12/10/18 12/10/18 12/10/18 23:10 23:20 23:23 Temperature Pulse Rate 71 72 75 Pulse Rate [ Anterior Bilateral] Respiratory 13 14 Rate Respiratory Rate [Anterior Bilateral] Blood Pressure 123/60 127/66 127/66 O2 Sat by Pulse 100 100 100 Oximetry 12/10/18 12/10/18 12/10/18 23:30 23:40 23:50 Temperature Pulse Rate 75 76 76 Pulse Rate [ Anterior Bilateral] Respiratory 12 17 18 Rate Respiratory Rate [Anterior Bilateral] Blood Pressure 127/66 127/64 O2 Sat by Pulse 100 100 100 Oximetry 12/11/18 12/11/18 12/11/18 00:00 00:10 00:20 Temperature 97.4 F L Pulse Rate 78 77 78 Pulse Rate [ Anterior Bilateral] Respiratory 20 20 20 Rate Respiratory Rate [Anterior Bilateral] Blood Pressure 127/64 128/67 128/67 O2 Sat by Pulse 100 100 100 Oximetry 12/11/18 12/11/18 12/11/18 00:30 00:40 00:50 Temperature Pulse Rate 76 80 81 Pulse Rate [ Anterior Bilateral] Respiratory 21 14 17 Rate Respiratory Rate [Anterior Bilateral] Blood Pressure 116/65 116/65 116/65 O2 Sat by Pulse 100 100 100 Oximetry 12/11/18 12/11/18 12/11/18 01:00 01:10 01:20 Temperature Pulse Rate 78 80 81 Pulse Rate [ Anterior Bilateral] Respiratory 17 22 17 Rate Respiratory Rate [Anterior Bilateral] Blood Pressure 137/77 137/77 137/77 O2 Sat by Pulse 100 100 100 Oximetry 12/11/18 12/11/18 12/11/18 01:30 01:40 01:50 Temperature Pulse Rate 80 81 82 Pulse Rate [ Anterior Bilateral] Respiratory 20 21 22 Rate Respiratory Rate [Anterior Bilateral] Blood Pressure 137/77 147/66 147/66 O2 Sat by Pulse 100 100 100 Oximetry 12/11/18 12/11/18 12/11/18 01:55 02:00 02:05 Temperature Pulse Rate 84 Pulse Rate [ 83 88 Anterior Bilateral] Respiratory 22 Rate Respiratory 22 22 Rate [Anterior Bilateral] Blood Pressure 137/77 O2 Sat by Pulse 100 Oximetry 12/11/18 12/11/18 12/11/18 02:10 02:20 02:30 Temperature Pulse Rate 86 86 88 Pulse Rate [ Anterior Bilateral] Respiratory 19 20 19 Rate Respiratory Rate [Anterior Bilateral] Blood Pressure 155/64 155/64 149/67 O2 Sat by Pulse 100 100 100 Oximetry 12/11/18 12/11/18 12/11/18 02:40 02:50 03:00 Temperature Pulse Rate 89 91 H 91 H Pulse Rate [ Anterior Bilateral] Respiratory 20 19 22 Rate Respiratory Rate [Anterior Bilateral] Blood Pressure 149/67 149/67 154/73 O2 Sat by Pulse 100 100 100 Oximetry 12/11/18 12/11/18 12/11/18 03:06 03:10 07:43 Temperature Pulse Rate 92 H 90 73 Pulse Rate [ Anterior Bilateral] Respiratory 18 Rate Respiratory Rate [Anterior Bilateral] Blood Pressure 154/73 154/73 150/65 O2 Sat by Pulse 100 100 100 Oximetry 12/11/18 12/11/18 07:51 08:30 Temperature Pulse Rate Pulse Rate [ 73 74 Anterior Bilateral] Respiratory Rate Respiratory 23 23 Rate [Anterior Bilateral] Blood Pressure O2 Sat by Pulse Oximetry Constitutional: no acute distress, other (dips to poor) Eyes: non-icteric ENT: other (ETT in position) Neck: supple, no JVD, other (right left IJ lines in place) Ascultation: Bilateral: clear, diminished breath sounds Cardiovascular: regular rate and rhythm, other (pacemaker rhythm) Gastrointestinal: normoactive bowel sounds, non-distended Integumentary: normal Extremities: no cyanosis, no edema, pink and warm Neurologic: pupils equal and round, other (Limited examination, basic responds when physically stimulated) CBC and BMP: 12/10/18 04:38 12/10/18 04:38 ABG, PT/INR, D-dimer: ABG POC ABG pH 7.381 (7.35-7.45) 12/11/18 04:12 POC ABG pCO2 24.6 (35-45) L 12/11/18 04:12 POC ABG pO2 119 (80-105) H 12/11/18 04:12 POC ABG HCO3 14.6 12/11/18 04:12 POC ABG Total CO2 15 12/11/18 04:12 POC ABG O2 Sat 99 12/11/18 04:12 PT/INR, D-dimer PT 19.5 Sec. (12.2-14.9) H 12/11/18 05:00 INR 1.54 (0.87-1.13) H 12/11/18 05:00 Abnormal lab findings: Abnormal Labs 12/08/18 12/08/18 12/08/18 12:58 13:40 13:40 WBC RBC Hgb Hct MCV MCH RDW Plt Count Lymph % (Auto) Lymph # Seg Neutrophils % Seg Neuts % (Manual) Lymphocytes % (Manual) Seg Neutrophils # Seg Neutrophils # Man Lymphocytes # (Manual) PT INR POC ABG pH POC ABG pCO2 POC ABG pO2 Potassium Chloride Carbon Dioxide BUN Creatinine Glucose POC Glucose 143 H Lactic Acid Calcium Total Bilirubin AST Total Creatine Kinase C-Reactive Protein Total Protein Albumin TSH Free T4 Urine WBC (Auto) 157.0 H Crossmatch See Detail 12/08/18 12/08/18 12/08/18 13:40 13:40 13:40 WBC RBC 3.06 L Hgb 6.8 L Hct 21.1 L MCV 69 L MCH 22 L RDW 16.2 H Plt Count 56 L Lymph % (Auto) Lymph # Seg Neutrophils % Seg Neuts % (Manual) Lymphocytes % (Manual) 2.0 L Seg Neutrophils # Seg Neutrophils # Man Lymphocytes # (Manual) 0.2 L PT INR POC ABG pH POC ABG pCO2 POC ABG pO2 Potassium 3.2 L Chloride Carbon Dioxide 18 L BUN 64 H Creatinine 1.5 H Glucose 145 H POC Glucose Lactic Acid 4.00 H* Calcium 7.7 L Total Bilirubin AST Total Creatine Kinase 258 H C-Reactive Protein Total Protein 4.6 L Albumin 1.8 L TSH Free T4 Urine WBC (Auto) Crossmatch 12/08/18 12/08/18 12/08/18 14:29 15:21 16:06 WBC RBC Hgb Hct MCV MCH RDW Plt Count Lymph % (Auto) Lymph # Seg Neutrophils % Seg Neuts % (Manual) Lymphocytes % (Manual) Seg Neutrophils # Seg Neutrophils # Man Lymphocytes # (Manual) PT 20.5 H INR 1.64 H POC ABG pH POC ABG pCO2 34.2 L POC ABG pO2 465 H Potassium Chloride Carbon Dioxide BUN Creatinine Glucose POC Glucose Lactic Acid 3.00 H* Calcium Total Bilirubin AST Total Creatine Kinase C-Reactive Protein Total Protein Albumin TSH Free T4 Urine WBC (Auto) Crossmatch 12/09/18 12/09/18 12/09/18 02:31 05:36 05:36 WBC 14.5 H RBC Hgb Hct MCV 75 L MCH 25 L RDW 20.4 H Plt Count 68 L Lymph % (Auto) Lymph # Seg Neutrophils % Seg Neuts % (Manual) 81.0 H Lymphocytes % (Manual) 1.0 L Seg Neutrophils # Seg Neutrophils # Man 11.7 H Lymphocytes # (Manual) 0.1 L PT INR POC ABG pH POC ABG pCO2 POC ABG pO2 Potassium Chloride 107.6 H Carbon Dioxide 18 L BUN 75 H Creatinine 1.9 H Glucose 136 H POC Glucose 152 H Lactic Acid Calcium 7.9 L Total Bilirubin 1.60 H AST 44 H Total Creatine Kinase C-Reactive Protein Total Protein 5.2 L Albumin 2.4 L TSH Free T4 Urine WBC (Auto) Crossmatch 12/09/18 12/09/18 12/09/18 05:43 10:47 13:46 WBC RBC Hgb Hct MCV MCH RDW Plt Count Lymph % (Auto) Lymph # Seg Neutrophils % Seg Neuts % (Manual) Lymphocytes % (Manual) Seg Neutrophils # Seg Neutrophils # Man Lymphocytes # (Manual) PT INR POC ABG pH 7.308 L POC ABG pCO2 POC ABG pO2 183 H Potassium Chloride Carbon Dioxide BUN Creatinine Glucose POC Glucose 150 H 162 H Lactic Acid Calcium Total Bilirubin AST Total Creatine Kinase C-Reactive Protein Total Protein Albumin TSH Free T4 Urine WBC (Auto) Crossmatch 12/09/18 12/09/18 12/09/18 15:54 15:54 16:40 WBC RBC Hgb Hct MCV MCH RDW Plt Count Lymph % (Auto) Lymph # Seg Neutrophils % Seg Neuts % (Manual) Lymphocytes % (Manual) Seg Neutrophils # Seg Neutrophils # Man Lymphocytes # (Manual) PT INR POC ABG pH POC ABG pCO2 POC ABG pO2 Potassium Chloride Carbon Dioxide BUN Creatinine Glucose POC Glucose 197 H Lactic Acid Calcium Total Bilirubin AST Total Creatine Kinase C-Reactive Protein Total Protein Albumin TSH 0.268 L Free T4 0.58 L Urine WBC (Auto) Crossmatch 12/09/18 12/09/18 12/09/18 18:18 18:18 21:51 WBC RBC Hgb Hct MCV MCH RDW Plt Count Lymph % (Auto) Lymph # Seg Neutrophils % Seg Neuts % (Manual) Lymphocytes % (Manual) Seg Neutrophils # Seg Neutrophils # Man Lymphocytes # (Manual) PT INR POC ABG pH POC ABG pCO2 POC ABG pO2 Potassium Chloride 108.2 H Carbon Dioxide 16 L BUN 89 H Creatinine 2.3 H Glucose 180 H POC Glucose 198 H Lactic Acid Calcium 7.9 L Total Bilirubin AST Total Creatine Kinase C-Reactive Protein 19.60 H Total Protein Albumin TSH Free T4 Urine WBC (Auto) Crossmatch 12/10/18 12/10/18 12/10/18 01:59 04:14 04:38 WBC 11.5 H RBC Hgb Hct MCV 75 L MCH 25 L RDW 21.1 H Plt Count 81 L Lymph % (Auto) 5.6 L Lymph # 0.6 L Seg Neutrophils % 89.8 H Seg Neuts % (Manual) Lymphocytes % (Manual) Seg Neutrophils # 10.3 H Seg Neutrophils # Man Lymphocytes # (Manual) PT INR POC ABG pH 7.273 L POC ABG pCO2 32.1 L POC ABG pO2 161 H Potassium Chloride Carbon Dioxide BUN Creatinine Glucose POC Glucose 219 H Lactic Acid Calcium Total Bilirubin AST Total Creatine Kinase C-Reactive Protein Total Protein Albumin TSH Free T4 Urine WBC (Auto) Crossmatch 12/10/18 12/10/18 12/10/18 04:38 05:07 07:26 WBC RBC Hgb Hct MCV MCH RDW Plt Count Lymph % (Auto) Lymph # Seg Neutrophils % Seg Neuts % (Manual) Lymphocytes % (Manual) Seg Neutrophils # Seg Neutrophils # Man Lymphocytes # (Manual) PT INR POC ABG pH POC ABG pCO2 POC ABG pO2 Potassium Chloride 112.5 H Carbon Dioxide 14 L BUN 94 H Creatinine 2.4 H Glucose 207 H POC Glucose 221 H 212 H Lactic Acid Calcium 7.7 L Total Bilirubin AST Total Creatine Kinase C-Reactive Protein Total Protein Albumin TSH Free T4 Urine WBC (Auto) Crossmatch 12/10/18 12/10/18 12/10/18 10:40 11:15 14:21 WBC RBC Hgb Hct MCV MCH RDW Plt Count Lymph % (Auto) Lymph # Seg Neutrophils % Seg Neuts % (Manual) Lymphocytes % (Manual) Seg Neutrophils # Seg Neutrophils # Man Lymphocytes # (Manual) PT 21.4 H INR 1.73 H POC ABG pH 7.214 L POC ABG pCO2 32.8 L POC ABG pO2 Potassium Chloride Carbon Dioxide BUN Creatinine Glucose POC Glucose 227 H Lactic Acid Calcium Total Bilirubin AST Total Creatine Kinase C-Reactive Protein Total Protein Albumin TSH Free T4 Urine WBC (Auto) Crossmatch 12/10/18 12/10/18 12/11/18 15:47 22:38 03:36 WBC RBC Hgb Hct MCV MCH RDW Plt Count Lymph % (Auto) Lymph # Seg Neutrophils % Seg Neuts % (Manual) Lymphocytes % (Manual) Seg Neutrophils # Seg Neutrophils # Man Lymphocytes # (Manual) PT INR POC ABG pH POC ABG pCO2 26.2 L POC ABG pO2 138 H Potassium Chloride Carbon Dioxide BUN Creatinine Glucose POC Glucose 202 H 259 H Lactic Acid Calcium Total Bilirubin AST Total Creatine Kinase C-Reactive Protein Total Protein Albumin TSH Free T4 Urine WBC (Auto) Crossmatch 12/11/18 12/11/18 04:12 05:00 WBC RBC Hgb Hct MCV MCH RDW Plt Count Lymph % (Auto) Lymph # Seg Neutrophils % Seg Neuts % (Manual) Lymphocytes % (Manual) Seg Neutrophils # Seg Neutrophils # Man Lymphocytes # (Manual) PT 19.5 H INR 1.54 H POC ABG pH POC ABG pCO2 24.6 L POC ABG pO2 119 H Potassium Chloride Carbon Dioxide BUN Creatinine Glucose POC Glucose Lactic Acid Calcium Total Bilirubin AST Total Creatine Kinase C-Reactive Protein Total Protein Albumin TSH Free T4 Urine WBC (Auto) Crossmatch
[2018-12-11] MEDS: PROTONIX IV SCH ×2 (11:00→21:19)
[2018-12-11] MEDS: MAXIPIME/NS 2 GM/100 ML 2 GM/100 ML BAG IV SCH (11:00)
[2018-12-11] MEDS: SODIUM CHLORIDE FLUSH SYRINGE 10 ML IV SCH ×2 (11:01→21:20)
--- NOTE | 2018-12-11 11:06 | Progress Note ---
Assessment and Plan Cont supportive measures. Cont PRN IV labetalol and plan to convert to PO once enteral intake is resumed. Pt has large pericardial effusion, suspect uremic pericarditis. No evidence of tamponade. No plans for pericardiocentesis at this time. Pt is stable to proceed with HD from cardiovascular standpoint if deemed necessary per nephrology. The patient has been seen in conjunction with Dr. Bonilla who agrees with the assessment and plan of care. - Patient Problems (1) Pericardial effusion Current Visit: Yes Status: Acute (2) Acute respiratory failure with hypoxia Current Visit: Yes Status: Acute (3) Sepsis Current Visit: Yes Status: Acute Qualifiers: Sepsis type: sepsis due to unspecified organism Qualified Code(s): A41.9 - Sepsis, unspecified organism (4) UTI (urinary tract infection) Current Visit: Yes Status: Acute (5) Altered mental status Current Visit: Yes Status: Acute (6) GI bleed Current Visit: Yes Status: Acute (7) History of CVA (cerebrovascular accident) Current Visit: Yes Status: Chronic (8) HLD (hyperlipidemia) Current Visit: Yes Status: Chronic Qualifiers: Hyperlipidemia type: mixed hyperlipidemia Qualified Code(s): E78.2 - Mixed hyperlipidemia (9) HTN (hypertension) Current Visit: Yes Status: Chronic (10) T2DM (type 2 diabetes mellitus) Current Visit: Yes Status: Chronic Qualifiers: Diabetes mellitus exterminator termite insulin use: unspecified [facility] insulin use status (11) MARYANN (acute kidney injury) Current Visit: Yes Status: Acute Subjective Date of service: 12/11/18 Principal diagnosis: coffee-ground drainage Interval history: pt remains intubated, unresponsive. no family members at bedside. Objective Last Vital Signs Temp 97.4 F L 12/11/18 00:00 Pulse 74 12/11/18 08:30 Resp 23 12/11/18 08:30 BP 150/65 12/11/18 07:43 Pulse Ox 100 12/11/18 07:43 - Physical Examination General: Other (intubated, nonresponsive ) Neck: Positive: neck supple Cardiac: Positive: Reg Rate and Rhythm, S1/S2 Lungs: Positive: Ventilated Respirations Neuro: Positive: Other (intubated, nonresponsive) - Labs and Meds Coagulation 12/10/18 12/11/18 Range/Units 10:40 05:00 PT 21.4 H 19.5 H (12.2-14.9) Sec. INR 1.73 H 1.54 H (0.87-1.13) APTT 30.9 (24.2-36.6) Sec.
[2018-12-11 11:46] LABS: Hemoglobin 11.2 gm/dl (10.1-14.3); Mean Corpuscular HGB Conc 33 % (30-34); Mean Corpuscular Volume 73 fl (79-97); Red Blood Count 4.66 M/mm3 (3.65-5.03)
[2018-12-11 11:48] LABS: Red Cell Distribution Width 21.5 % (13.2-15.2)
[2018-12-11] MEDS ORDERED: AFLURIA QUAD 2018-2019 SYRINGE IM ONE (12:00)
[2018-12-11] MEDS ORDERED: PNEUMOVAX 23 IM ONE (12:00)
[2018-12-11 12:03] LABS: Calcium 7.7 mg/dL (8.4-10.2)
[2018-12-11] MEDS: HumaLOG SUB-Q SCH ×2 (12:57→18:11)
--- NOTE | 2018-12-11 13:14 | Consultation ---
History of Present Illness Consult date: 12/11/18 Requesting physician: OSIEL MARTIN Reason for Consult: altered mental status. History of present illness: This is an 88 year old female with history of stroke, DM, HTN, COPD, PVD, presented on 12/08/18 to ER having been found unresponsive in bed by family. The pt. was hypotensive and sepsis was considered. The pt. had been complaining to family of rt. ear pain and dysuria, She was intubated, started on Cefepime and vancomycin, as well as pressors. There is a pleural effusion as well as pericardial effusion. Cultures have been negative thus far. The pt. remains unresponsive on the ventilator. CT brain reveals large area of encephalomalacia in the rt. hmisphere, entire MCA distribution. Past History Past Medical History: anemia, diabetes, hypertension, hyperlipidemia, stroke, other (as per HPI) Past Surgical History: hysterectomy, Other ( colon polyps removed, pacemaker) Social history: denies: smoking, alcohol abuse Family history: hypertension Medications and Allergies Allergies Allergy/AdvReac Type Severity Reaction Status Date / Time Penicillins Allergy Hives Verified 12/08/18 13:13 Home Medications Medication Instructions Recorded Confirmed Last Taken Type ALBUTEROL Inhaler (OR & NICU) 2 puff IH QID PRN #1 inhalation 12/21/16 12/08/18 Unknown Rx [Proair] Albuterol Sulfate [Albuterol 0.63% 0.63 mg IH TID PRN #90 ml 12/21/16 12/08/18 Unknown Rx NEBS] Amlodipine Besylate [Norvasc] 10 mg PO DAILY #90 tablet 12/21/16 12/08/18 Unknown Rx AtorvaSTATin [Lipitor] 20 mg PO QHS #90 tablet 12/21/16 12/08/18 Unknown Rx Hydralazine HCl [Apresoline TAB] 50 mg PO TID #90 tablet 12/21/16 12/08/18 Unknown Rx Metoprolol [Lopressor TAB] 25 mg PO BID #90 tablet 12/21/16 12/08/18 Unknown Rx Promethazine /Codeine 5 ml PO Q6H PRN #100 ml 12/21/16 12/08/18 Unknown Rx [Phenergan/Codeine 6.25-10 mg/5 ml] Active Meds: Active Medications Acetaminophen (Tylenol) 650 mg [place] Q4H PRN PRN Reason: Pain MILD(1-3)/Fever >100.5/TURNER Last Admin: 12/09/18 10:00 Dose: 650 mg Documented by: Albuterol (Proventil) 2.5 mg IH Q4HRT PRN PRN Reason: Shortness Of Breath Albuterol/Ipratropium (Duoneb *Not For Prn Use*) 1 ampul IH Q6HRT [facility] Last Admin: 12/11/18 07:51 Dose: 1 ampul Documented by: Lipase/Protease/Amylase (Pancreaze Dr 10,500 Unit) 1 each FEEDTUBE PRN PRN PRN Reason: For Clogged Feeding Tube Hydralazine HCl (Apresoline) 50 mg PO Q8HR KOLE Last Admin: 12/11/18 07:02 Dose: 50 mg Documented by: Hydrophilic Ointment (Vaseline Lip Therapy) 1 applic TP Q2HR PRN PRN Reason: Dry Lips Norepinephrine (Levophed Drip 4 Mg/Ns 250 Ml) 4 mg in 250 mls @ 7.5 mls/hr IV TITR KOLE; Protocol Last Titration: 12/08/18 20:00 Dose: 0 mcg/min, 0 mls/hr Documented by: Cefepime HCl (Maxipime/Ns 2 Gm/100 Ml) 2 gm in 100 mls @ 200 mls/hr IV Q24HR KOLE; Protocol Last Admin: 12/11/18 11:00 Dose: 200 mls/hr Documented by: Sodium Chloride (Nacl 0.45% 1000 Ml) 1,000 mls @ 75 mls/hr IV DIRECT KOLE Last Admin: 12/10/18 13:28 Dose: 75 mls/hr Documented by: Insulin Human Lispro (Humalog) 0 unit SUB-Q Q6HR KOLE; Protocol Last Admin: 12/11/18 12:57 Dose: Not Given Documented by: Labetalol HCl (Normodyne) 10 mg IV Q4H PRN PRN Reason: Hypertension Last Admin: 12/10/18 09:14 Dose: 10 mg Documented by: Multi-Ingred Cream/Lotion/Oil/Oint (Artificial Tears Ophth Oint) 1 applic OU Q4HR PRN PRN Reason: Dry Eye(s) Neomycin/Polymyxin/Hydrocortisone (Cortisporin) 4 drops AU TID KOLE Last Admin: 12/11/18 09:00 Dose: 4 drops Documented by: Ondansetron HCl (Zofran) 4 mg IV Q8H PRN PRN Reason: Nausea And Vomiting Pantoprazole Sodium (Protonix) 40 mg IV BID [facility] Last Admin: 12/11/18 11:00 Dose: 40 mg Documented by: Simple Syrup (Simple Syrup) 15 ml FEEDTUBE PRN PRN PRN Reason: Hypoglycemia Simple Syrup (Simple Syrup) 30 ml FEEDTUBE PRN PRN PRN Reason: Hypoglycemia Sodium Bicarbonate (Sodium Bicarbonate) 325 mg FEEDTUBE PRN PRN PRN Reason: For Clogged Feeding Tube Sodium Chloride (Sodium Chloride Flush Syringe 10 Ml) 10 ml IV BID [facility] Last Admin: 12/11/18 11:01 Dose: 10 ml Documented by: Sodium Chloride (Sodium Chloride Flush Syringe 10 Ml) 10 ml IV PRN PRN PRN Reason: LINE FLUSH Review of Systems ROS unobtainable: due to endotracheal tube Physical Examination - Vital Signs Vital Signs: Vital Signs Pulse Resp 95 H 14 12/08/18 12:50 12/08/18 12:50 General - the pt. os unresponsive on the ventilator Neurological - Keeps eyes closed. No response to verbal stimuli or chest rub. CN's - eyes are midline. pupils 2 mm. No corneal response on the left, positive on the rt. Cannot assess face and tongue, because of ET. Motor - Rt. arm is flaccid. Rt. leg - withdraws to pain. Lt. arm - rigid, with posturing and clenched hand. Left leg - moves spontaneously Reflexes - decreased throughout. Sensory - RUE - grimaces to pain, RLE - slight movement and grimace to pain. LLE - moves to pain. LUE no response to pain. Results - Laboratory Findings CBC and BMP: 12/11/18 11:10 12/11/18 11:10 Abnormal Lab Findings: Abnormal Labs 12/08/18 12/08/18 12/08/18 12:58 13:40 13:40 WBC RBC Hgb Hct MCV MCH RDW Plt Count Lymph % (Auto) Lymph # Seg Neutrophils % Seg Neuts % (Manual) Lymphocytes % (Manual) Seg Neutrophils # Seg Neutrophils # Man Lymphocytes # (Manual) PT INR POC ABG pH POC ABG pCO2 POC ABG pO2 Potassium Chloride Carbon Dioxide BUN Creatinine Glucose POC Glucose 143 H Lactic Acid Calcium Total Bilirubin AST Total Creatine Kinase C-Reactive Protein Total Protein Albumin TSH Free T4 Urine WBC (Auto) 157.0 H Crossmatch See Detail 12/08/18 12/08/18 12/08/18 13:40 13:40 13:40 WBC RBC 3.06 L Hgb 6.8 L Hct 21.1 L MCV 69 L MCH 22 L RDW 16.2 H Plt Count 56 L Lymph % (Auto) Lymph # Seg Neutrophils % Seg Neuts % (Manual) Lymphocytes % (Manual) 2.0 L Seg Neutrophils # Seg Neutrophils # Man Lymphocytes # (Manual) 0.2 L PT INR POC ABG pH POC ABG pCO2 POC ABG pO2 Potassium 3.2 L Chloride Carbon Dioxide 18 L BUN 64 H Creatinine 1.5 H Glucose 145 H POC Glucose Lactic Acid 4.00 H* Calcium 7.7 L Total Bilirubin AST Total Creatine Kinase 258 H C-Reactive Protein Total Protein 4.6 L Albumin 1.8 L TSH Free T4 Urine WBC (Auto) Crossmatch 12/08/18 12/08/18 12/08/18 14:29 15:21 16:06 WBC RBC Hgb Hct MCV MCH RDW Plt Count Lymph % (Auto) Lymph # Seg Neutrophils % Seg Neuts % (Manual) Lymphocytes % (Manual) Seg Neutrophils # Seg Neutrophils # Man Lymphocytes # (Manual) PT 20.5 H INR 1.64 H POC ABG pH POC ABG pCO2 34.2 L POC ABG pO2 465 H Potassium Chloride Carbon Dioxide BUN Creatinine Glucose POC Glucose Lactic Acid 3.00 H* Calcium Total Bilirubin AST Total Creatine Kinase C-Reactive Protein Total Protein Albumin TSH Free T4 Urine WBC (Auto) Crossmatch 12/09/18 12/09/18 12/09/18 02:31 05:36 05:36 WBC 14.5 H RBC Hgb Hct MCV 75 L MCH 25 L RDW 20.4 H Plt Count 68 L Lymph % (Auto) Lymph # Seg Neutrophils % Seg Neuts % (Manual) 81.0 H Lymphocytes % (Manual) 1.0 L Seg Neutrophils # Seg Neutrophils # Man 11.7 H Lymphocytes # (Manual) 0.1 L PT INR POC ABG pH POC ABG pCO2 POC ABG pO2 Potassium Chloride 107.6 H Carbon Dioxide 18 L BUN 75 H Creatinine 1.9 H Glucose 136 H POC Glucose 152 H Lactic Acid Calcium 7.9 L Total Bilirubin 1.60 H AST 44 H Total Creatine Kinase C-Reactive Protein Total Protein 5.2 L Albumin 2.4 L TSH Free T4 Urine WBC (Auto) Crossmatch 12/09/18 12/09/18 12/09/18 05:43 10:47 13:46 WBC RBC Hgb Hct MCV MCH RDW Plt Count Lymph % (Auto) Lymph # Seg Neutrophils % Seg Neuts % (Manual) Lymphocytes % (Manual) Seg Neutrophils # Seg Neutrophils # Man Lymphocytes # (Manual) PT INR POC ABG pH 7.308 L POC ABG pCO2 POC ABG pO2 183 H Potassium Chloride Carbon Dioxide BUN Creatinine Glucose POC Glucose 150 H 162 H Lactic Acid Calcium Total Bilirubin AST Total Creatine Kinase C-Reactive Protein Total Protein Albumin TSH Free T4 Urine WBC (Auto) Crossmatch 12/09/18 12/09/18 12/09/18 15:54 15:54 16:40 WBC RBC Hgb Hct MCV MCH RDW Plt Count Lymph % (Auto) Lymph # Seg Neutrophils % Seg Neuts % (Manual) Lymphocytes % (Manual) Seg Neutrophils # Seg Neutrophils # Man Lymphocytes # (Manual) PT INR POC ABG pH POC ABG pCO2 POC ABG pO2 Potassium Chloride Carbon Dioxide BUN Creatinine Glucose POC Glucose 197 H Lactic Acid Calcium Total Bilirubin AST Total Creatine Kinase C-Reactive Protein Total Protein Albumin TSH 0.268 L Free T4 0.58 L Urine WBC (Auto) Crossmatch 12/09/18 12/09/18 12/09/18 18:18 18:18 21:51 WBC RBC Hgb Hct MCV MCH RDW Plt Count Lymph % (Auto) Lymph # Seg Neutrophils % Seg Neuts % (Manual) Lymphocytes % (Manual) Seg Neutrophils # Seg Neutrophils # Man Lymphocytes # (Manual) PT INR POC ABG pH POC ABG pCO2 POC ABG pO2 Potassium Chloride 108.2 H Carbon Dioxide 16 L BUN 89 H Creatinine 2.3 H Glucose 180 H POC Glucose 198 H Lactic Acid Calcium 7.9 L Total Bilirubin AST Total Creatine Kinase C-Reactive Protein 19.60 H Total Protein Albumin TSH Free T4 Urine WBC (Auto) Crossmatch 12/10/18 12/10/18 12/10/18 01:59 04:14 04:38 WBC 11.5 H RBC Hgb Hct MCV 75 L MCH 25 L RDW 21.1 H Plt Count 81 L Lymph % (Auto) 5.6 L Lymph # 0.6 L Seg Neutrophils % 89.8 H Seg Neuts % (Manual) Lymphocytes % (Manual) Seg Neutrophils # 10.3 H Seg Neutrophils # Man Lymphocytes # (Manual) PT INR POC ABG pH 7.273 L POC ABG pCO2 32.1 L POC ABG pO2 161 H Potassium Chloride Carbon Dioxide BUN Creatinine Glucose POC Glucose 219 H Lactic Acid Calcium Total Bilirubin AST Total Creatine Kinase C-Reactive Protein Total Protein Albumin TSH Free T4 Urine WBC (Auto) Crossmatch 12/10/18 12/10/18 12/10/18 04:38 05:07 07:26 WBC RBC Hgb Hct MCV MCH RDW Plt Count Lymph % (Auto) Lymph # Seg Neutrophils % Seg Neuts % (Manual) Lymphocytes % (Manual) Seg Neutrophils # Seg Neutrophils # Man Lymphocytes # (Manual) PT INR POC ABG pH POC ABG pCO2 POC ABG pO2 Potassium Chloride 112.5 H Carbon Dioxide 14 L BUN 94 H Creatinine 2.4 H Glucose 207 H POC Glucose 221 H 212 H Lactic Acid Calcium 7.7 L Total Bilirubin AST Total Creatine Kinase C-Reactive Protein Total Protein Albumin TSH Free T4 Urine WBC (Auto) Crossmatch 12/10/18 12/10/18 12/10/18 10:40 11:15 14:21 WBC RBC Hgb Hct MCV MCH RDW Plt Count Lymph % (Auto) Lymph # Seg Neutrophils % Seg Neuts % (Manual) Lymphocytes % (Manual) Seg Neutrophils # Seg Neutrophils # Man Lymphocytes # (Manual) PT 21.4 H INR 1.73 H POC ABG pH 7.214 L POC ABG pCO2 32.8 L POC ABG pO2 Potassium Chloride Carbon Dioxide BUN Creatinine Glucose POC Glucose 227 H Lactic Acid Calcium Total Bilirubin AST Total Creatine Kinase C-Reactive Protein Total Protein Albumin TSH Free T4 Urine WBC (Auto) Crossmatch 12/10/18 12/10/18 12/11/18 15:47 22:38 03:36 WBC RBC Hgb Hct MCV MCH RDW Plt Count Lymph % (Auto) Lymph # Seg Neutrophils % Seg Neuts % (Manual) Lymphocytes % (Manual) Seg Neutrophils # Seg Neutrophils # Man Lymphocytes # (Manual) PT INR POC ABG pH POC ABG pCO2 26.2 L POC ABG pO2 138 H Potassium Chloride Carbon Dioxide BUN Creatinine Glucose POC Glucose 202 H 259 H Lactic Acid Calcium Total Bilirubin AST Total Creatine Kinase C-Reactive Protein Total Protein Albumin TSH Free T4 Urine WBC (Auto) Crossmatch 12/11/18 12/11/18 12/11/18 04:12 05:00 06:19 WBC RBC Hgb Hct MCV MCH RDW Plt Count Lymph % (Auto) Lymph # Seg Neutrophils % Seg Neuts % (Manual) Lymphocytes % (Manual) Seg Neutrophils # Seg Neutrophils # Man Lymphocytes # (Manual) PT 19.5 H INR 1.54 H POC ABG pH POC ABG pCO2 24.6 L POC ABG pO2 119 H Potassium Chloride Carbon Dioxide BUN Creatinine Glucose POC Glucose 174 H Lactic Acid Calcium Total Bilirubin AST Total Creatine Kinase C-Reactive Protein Total Protein Albumin TSH Free T4 Urine WBC (Auto) Crossmatch 12/11/18 12/11/18 11:10 11:10 WBC 14.3 H RBC Hgb Hct MCV 73 L MCH 24 L RDW 21.5 H Plt Count Lymph % (Auto) Lymph # Seg Neutrophils % Seg Neuts % (Manual) Lymphocytes % (Manual) Seg Neutrophils # Seg Neutrophils # Man Lymphocytes # (Manual) PT INR POC ABG pH POC ABG pCO2 POC ABG pO2 Potassium Chloride 110.5 H Carbon Dioxide 15 L BUN 101 H Creatinine 2.4 H Glucose 119 H POC Glucose Lactic Acid Calcium 7.7 L Total Bilirubin AST Total Creatine Kinase C-Reactive Protein Total Protein Albumin TSH Free T4 Urine WBC (Auto) Crossmatch Assessment and Plan 88 year old female with hx of DM, HTN, and stroke was brought in unresponsive, with suspected sepsis. 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 The patient's exam is interesting in that the rt. arm is now flaccid and left leg seems to move more than the right. Lt. corneal reflex is also out. I suspect there may be more ischemic disease, possibly brain stem. Plan - MRI brain
--- NOTE | 2018-12-11 13:22 | Progress Note ---
Assessment and Plan /Acute respiratory failure, intubated Likely from underlying severe sepsis and pleural effusion? Sales And Service Specialist/Pulm consulted Continue nebs, continue antibiotics Wean off vent support as tolerated CXR showed small left pleural effusion. CT chest showed large pericardial effusion, LLL atelectasis v/s infiltrate and left pleural effusion. /Acute encephalopathy: likely from sepsis alone versus possible meningitis vs seizure. CT head extensive right MCA encephalomalcia, right mastoid opacities. neurology ordered EEG. 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 - when stable need LP for CSF cell count, diff, protein, glucose, culture, Gram stain, VDRL, HSV and Crypto ag, LP ordered by ID - continue cefepime, vancomycin renally adjusted for now /Sepsis likely due to UTI , right mastoiditis Blood cultures drawn Started on Cefepime, vanco /Hypotension/septic shock On Levophed /Left lower lobe infiltrate, poss pneumonia - Treat with antibiotic for now /Large Pericardial effusion. TTE EF>50, no echo evidence of tamponade. cardiology consulted and recommended medical management for now /Coffe ground contents from NG aspirate cont Protonix drip, Consulted GI Monitor H/H /MARYANN on CKD 3 baseline Cr around 1.2-1.5mg/dl likely due to underlying sepsis Monitor BMP, Consulted nephrology- no indication for HD now /Acute on chronic anemia has h/o anemia requiring previous blood transfusions could be multifactorial, GI on board s/p 2 Units PRBC transfused on 12/08/18 / h/o Hypertension - pt now hypotensive from sepsis /Diabetes type 2, SSI as needed Full code status. 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 In the ED, She was found in acute respiratory failure, requiring bag valve mask ventilation and hypotensive. Noted coffee-ground drainage from OG tube and patient also found to have purulent discharge from the right ear, and stephanie are removed by ED physician. Patient was intubated in the ER and admitted to the ICU for further evaluation and management. Blood culture 12/08/2018 no growth so far. CT head extensive right MCA encephalomalcia, right mastoid opacities. CXR showed small left pleural effusion. CT chest showed large pericardial effusion, LLL atelectasis v/s infiltrate and left pleural effusion. s/p 2 units PRBc transfusion on 12/08/18. renal consulted for worsening renal function. Hospitalist Physical GEN: Intubated, On vent, not in acute distress HEENT: Normocephalic, atraumatic, Neck: supple, No JVD Cardio: s1 and s2 positive Lungs: Clear to auscultation bilaterally, no wheeze Abd:soft, non tender, non distended, normal bowel sounds Ext: No edema, no clubbing, no cyanosis Neuro: Intubated, does not follow commend Skin: No rash The high probability of a clinically significant, sudden or life threatening deterioration of the [multiple] system(s) required my full and direct attention, intervention and personal management. The aggregate critical care time was [35] minutes. This time is in addition to time spent performing reported procedures but includes the following: [x] Data Review and interpretation [x] Patient assessment and monitoring of vital signs [x] Documentation [x] Medication orders and management Subjective Date of service: 12/11/18 Principal diagnosis: coffee-ground drainage Interval history: Patient seen and examined. Medical records and medication list reviewed. No acute event overnight noted by the RN. Patient remained intubated, tolerating tube feeding diet Discussed plan of care at bedside with RN and ID. Objective - Constitutional Vitals: Vital Signs - 12hr 12/11/18 12/11/18 12/11/18 01:30 01:40 01:50 Pulse Rate 80 81 82 Pulse Rate [ Anterior Bilateral] Respiratory 20 21 22 Rate Respiratory Rate [Anterior Bilateral] Blood Pressure 137/77 147/66 147/66 O2 Sat by Pulse 100 100 100 Oximetry 12/11/18 12/11/18 12/11/18 01:55 02:00 02:05 Pulse Rate 84 Pulse Rate [ 83 88 Anterior Bilateral] Respiratory 22 Rate Respiratory 22 22 Rate [Anterior Bilateral] Blood Pressure 137/77 O2 Sat by Pulse 100 Oximetry 12/11/18 12/11/18 12/11/18 02:10 02:20 02:30 Pulse Rate 86 86 88 Pulse Rate [ Anterior Bilateral] Respiratory 19 20 19 Rate Respiratory Rate [Anterior Bilateral] Blood Pressure 155/64 155/64 149/67 O2 Sat by Pulse 100 100 100 Oximetry 12/11/18 12/11/18 12/11/18 02:40 02:50 03:00 Pulse Rate 89 91 H 91 H Pulse Rate [ Anterior Bilateral] Respiratory 20 19 22 Rate Respiratory Rate [Anterior Bilateral] Blood Pressure 149/67 149/67 154/73 O2 Sat by Pulse 100 100 100 Oximetry 12/11/18 12/11/18 12/11/18 03:06 03:10 07:43 Pulse Rate 92 H 90 73 Pulse Rate [ Anterior Bilateral] Respiratory 18 Rate Respiratory Rate [Anterior Bilateral] Blood Pressure 154/73 154/73 150/65 O2 Sat by Pulse 100 100 100 Oximetry 12/11/18 12/11/18 12/11/18 07:51 08:00 08:30 Pulse Rate Pulse Rate [ 73 74 Anterior Bilateral] Respiratory 23 Rate Respiratory 23 23 Rate [Anterior Bilateral] Blood Pressure O2 Sat by Pulse 100 Oximetry 12/11/18 12/11/18 12/11/18 11:19 12:00 13:14 Pulse Rate 71 71 Pulse Rate [ Anterior Bilateral] Respiratory 22 Rate Respiratory Rate [Anterior Bilateral] Blood Pressure 150/71 174/84 O2 Sat by Pulse 100 100 Oximetry - Labs CBC & Chem 7: 12/12/18 08:00 12/12/18 08:00 Labs: Abnormal lab results 12/10/18 12/10/18 12/10/18 Range/Units 14:21 15:47 22:38 WBC (4.5-11.0) K/mm3 MCV (79-97) fl MCH (28-32) pg RDW (13.2-15.2) % PT (12.2-14.9) Sec. INR (0.87-1.13) POC ABG pH 7.214 L (7.35-7.45) POC ABG pCO2 32.8 L 26.2 L (35-45) POC ABG pO2 138 H (80-105) Chloride (98-107) mmol/L Carbon Dioxide (22-30) mmol/L BUN (7-17) mg/dL Creatinine (0.7-1.2) mg/dL Glucose (65-100) mg/dL POC Glucose 202 H (70-105) Calcium (8.4-10.2) mg/dL 0312/11/18 12/11/18 Range/Units 03:36 04:12 05:00 WBC (4.5-11.0) K/mm3 MCV (79-97) fl MCH (28-32) pg RDW (13.2-15.2) % PT 19.5 H (12.2-14.9) Sec. INR 1.54 H (0.87-1.13) POC ABG pH (7.35-7.45) POC ABG pCO2 24.6 L (35-45) POC ABG pO2 119 H (80-105) Chloride (98-107) mmol/L Carbon Dioxide (22-30) mmol/L BUN (7-17) mg/dL Creatinine (0.7-1.2) mg/dL Glucose (65-100) mg/dL POC Glucose 259 H (70-105) Calcium (8.4-10.2) mg/dL 12/11/18 12/11/18 12/11/18 Range/Units :19 11:10 11:10 WBC 14.3 H (4.5-11.0) K/mm3 MCV 73 L (79-97) fl MCH 24 L (28-32) pg RDW 21.5 H (13.2-15.2) % PT (12.2-14.9) Sec. INR (0.87-1.13) POC ABG pH (7.35-7.45) POC ABG pCO2 (35-45) POC ABG pO2 (80-105) Chloride 110.5 H (98-107) mmol/L Carbon Dioxide 15 L (22-30) mmol/L BUN 101 H (7-17) mg/dL Creatinine 2.4 H (0.7-1.2) mg/dL Glucose 119 H (65-100) mg/dL POC Glucose 174 H (70-105) Calcium 7.7 L (8.4-10.2) mg/dL
--- NOTE | 2018-12-11 15:14 | Progress Note ---
Assessment and Plan Cultures: Blood culture 12/08/2018 no growth so far. 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 Etiology UTI +/- right otitis media/mastoiditis +/- ?meningitis +/- severe anemia. - Blood culture 12/08/2018 no growth so far. -Lactate 4 - CXR no consolidation. 2) UTI: UA wbc 157, LE mod, on cefepime 3) Right otitis media / mastoiditis: Per grand-daughter, she has been c/o right ear pain and drainage last week. Patient was putting Neosporin and perhaps ear stephanie in the patient's ear. On physical exam, patient found to have purulent discharge from the right ear, and stephanie are removed by ED physician. There is probable perforation of the right sided tympanic membrane per ED physician. Started on dexametasone, cefepime and vanco 4) Acute encephalopathy: not better, from sepsis alone versus meningitis versus CVA. CT head extensive right MCA encephalomalcia, right mastoid opacities. 5) Acute respiratory failure: CXR showed small left pleural effusion. CT chest showed large pericardial effusion, LLL atelectasis v/s infiltrate and left pleural effusion. 6) ?GI bleed 7) Severe anemia: ? Noted coffee-ground drainage from OG tube. 8) Severe thrombocytopenia: from sepsis 9) Large pericardial effusion: TTE EF>50, no echo evidence of tamponade 10) Penicillin allergy: tolerating cefepime 11) CKD: renally adjusted antibiotics Recommendations: - f/u blood cultures - obtain right ear culture - pending - when stable LP for CSF cell count, diff, protein, glucose, culture, Gram stain, VDRL, HSV and Crypto ag, LP ordered - continue cefepime, vancomycin renally adjusted for now - neuro on board considering more ischemic disease, possibly brain stem. - Brain MRI when stable Poor prognosis Will follow. Pearl Mariee MD Infectious Diseases [facility], [place], [facility] ([facility] M [phone] O [phone] Subjective Date of service: 12/11/18 Principal diagnosis: coffee-ground drainage Interval history: Remains intubated CMV fiO2 30% p6, unresponsive, temp 90-93 ROS unable to obtain Objective - Exam Narrative Exam: General appearance: lethargic in NAD on the vent intubated Eyes: + mild icteric sclerae, gustavo edematous conjunctivae; HENT: Atraumatic; oropharynx +ETT. +right ear external canal with edema Neck: Trachea midline; supple, no thyromegaly or lymphadenopathy Lungs: gustavo coarse BS CV: tachycardic Abdomen: Soft, mild tenderness Extremities: No peripheral edema or extremity lymphadenopathy Skin: Normal temperature, turgor and texture; no rash, ulcers or subcutaneous nodules Psych: lethargic. Neuro: lethargic - Constitutional Vitals: Vital Signs Temp Pulse Resp BP Pulse Ox 97.4 F L 78 19 174/84 100 12/11/18 00:00 12/11/18 15:08 12/11/18 15:08 12/11/18 13:14 12/11/18 12:00 Temperature -Last 24 Hours Temperature 97.4 F Temperature 93.4 F Temperature 93.4 F Temperature 93 F Temperature 90.3 F - Labs CBC & Chem 7: 12/11/18 11:10 12/11/18 11:10 Labs: Abnormal lab results 12/10/18 12/10/18 12/11/18 Range/Units 15:47 22:38 03:36 WBC (4.5-11.0) K/mm3 MCV (79-97) fl MCH (28-32) pg RDW (13.2-15.2) % PT (12.2-14.9) Sec. INR (0.87-1.13) POC ABG pCO2 26.2 L (35-45) POC ABG pO2 138 H (80-105) Chloride (98-107) mmol/L Carbon Dioxide (22-30) mmol/L BUN (7-17) mg/dL Creatinine (0.7-1.2) mg/dL Glucose (65-100) mg/dL POC Glucose 202 H 259 H (70-105) Calcium (8.4-10.2) mg/dL 12/11/18 12/11/18 12/11/18 Range/Units 04:12 05:00 06:19 WBC (4.5-11.0) K/mm3 MCV (79-97) fl MCH (28-32) pg RDW (13.2-15.2) % PT 19.5 H (12.2-14.9) Sec. INR 1.54 H (0.87-1.13) POC ABG pCO2 24.6 L (35-45) POC ABG pO2 119 H (80-105) Chloride (98-107) mmol/L Carbon Dioxide (22-30) mmol/L BUN (7-17) mg/dL Creatinine (0.7-1.2) mg/dL Glucose (65-100) mg/dL POC Glucose 174 H (70-105) Calcium (8.4-10.2) mg/dL 12/11/18 12/11/18 Range/Units 11:10 11:10 WBC 14.3 H (4.5-11.0) K/mm3 MCV 73 L (79-97) fl MCH 24 L (28-32) pg RDW 21.5 H (13.2-15.2) % PT (12.2-14.9) Sec. INR (0.87-1.13) POC ABG pCO2 (35-45) POC ABG pO2 (80-105) Chloride 110.5 H (98-107) mmol/L Carbon Dioxide 15 L (22-30) mmol/L BUN 101 H (7-17) mg/dL Creatinine 2.4 H (0.7-1.2) mg/dL Glucose 119 H (65-100) mg/dL POC Glucose (70-105) Calcium 7.7 L (8.4-10.2) mg/dL
--- NOTE | 2018-12-11 15:33 | Progress Note ---
Assessment and Plan - Patient Problems (1) Acute kidney failure with tubular necrosis Current Visit: Yes Status: Acute Plan to address problem: suspect acute tubular necrosis in the setting of sepsis and hemorrhagic anemia leading to hypotension. possible GI bleed contributing to rising BUN. Unclear whether large pericardial effusion is acute or chronic, uremic pericarditis cannot be ruled out. eGFR stabilizing, no emergent indication for HD at present. For now will continue supportive care, cont IVF with 1/2 NS given presence of hyperchloremic met acidosis, maintain MAP > 65mmhg, avoid nephrotoxins, NSAIDs, IV contrasts. will monitor I/Os, lytes and renal parameters closely and make further recommendations. (2) Acute post-hemorrhagic anemia Current Visit: Yes Status: Acute Plan to address problem: s/p 2PRBC transfusion, monitor serial CBC and follow GI recommendations (3) Sepsis Current Visit: Yes Status: Acute Qualifiers: Sepsis type: sepsis due to unspecified organism Qualified Code(s): A41.9 - Sepsis, unspecified organism Plan to address problem: on ABXs incl vanco, cefepime, dose for eGFR < 30mls/min (4) Respiratory failure Current Visit: Yes Status: Acute Plan to address problem: vent management as per ICU team (5) Acute encephalopathy Current Visit: Yes Status: Acute Plan to address problem: follow neuro recommendations (6) Pericardial effusion without cardiac tamponade Current Visit: Yes Status: Acute Plan to address problem: s/p ECHO, showing large pericardial effusion without tamponade pathology. (7) HTN (hypertension) Current Visit: Yes Status: Chronic Plan to address problem: BP stabilized now off vasopressors (8) T2DM (type 2 diabetes mellitus) Current Visit: Yes Status: Chronic Qualifiers: Diabetes mellitus half-way insulin use: unspecified long term care administrator insulin use st at Plan to address problem: glucose control as per primary attending (9) Acidosis Current Visit: Yes Status: Acute Plan to address problem: initially lactic acidosis, now more hyperchloremic met acidosis, cont 1/2 NS Subjective Date of service: 12/11/18 Principal diagnosis: coffee-ground drainage Interval history: Pt remains intubated, sedated. no UOP documented Objective - Vital Signs Vital signs: Vital Signs - 12hr 12/11/18 12/11/18 12/11/18 07:43 07:51 08:00 Pulse Rate 73 Pulse Rate [ 73 Anterior Bilateral] Respiratory 23 Rate Respiratory 23 Rate [Anterior Bilateral] Blood Pressure 150/65 O2 Sat by Pulse 100 100 Oximetry 12/11/18 12/11/18 12/11/18 08:30 10:00 11:19 Pulse Rate 71 71 Pulse Rate [ 74 Anterior Bilateral] Respiratory Rate Respiratory 23 Rate [Anterior Bilateral] Blood Pressure 150/71 O2 Sat by Pulse 100 Oximetry 12/11/18 12/11/18 12/11/18 12:00 13:14 14:36 Pulse Rate 71 Pulse Rate [ 76 Anterior Bilateral] Respiratory 22 Rate Respiratory 19 Rate [Anterior Bilateral] Blood Pressure 174/84 O2 Sat by Pulse 100 Oximetry 12/11/18 15:08 Pulse Rate Pulse Rate [ 78 Anterior Bilateral] Respiratory Rate Respiratory 19 Rate [Anterior Bilateral] Blood Pressure O2 Sat by Pulse Oximetry - General Appearance General appearance: appears stated age, chronically ill, sedated on ventilator, intubated EENT: ATNC, mucous membranes moist Neck: no JVD Respiratory: Present: Decreased Breath Sounds Cardiology: regular, S1S2 Gastrointestinal: normoactive bowel sounds Integumentary: no rash, other (no edema ) Neurologic: other (intubated ) - Lab 12/11/18 11:10 12/11/18 11:10 Most recent lab results Calcium 7.7 mg/dL (8.4-10.2) L 12/11/18 11:10 Medications & Allergies - Medications Allergies/Adverse Reactions: Allergies Penicillins Allergy (Verified 12/08/18 13:13) Hives Home Medications: Home Medications Medication Instructions Recorded Confirmed Last Taken Type ALBUTEROL Inhaler (OR & NICU) 2 puff IH QID PRN #1 inhalation 12/21/16 12/08/18 Unknown Rx [Proair] Albuterol Sulfate [Albuterol 0.63% 0.63 mg IH TID PRN #90 ml 12/21/16 12/08/18 Unknown Rx NEBS] Amlodipine Besylate [Norvasc] 10 mg PO DAILY #90 tablet 12/21/16 12/08/18 Unknown Rx AtorvaSTATin [Lipitor] 20 mg PO QHS #90 tablet 12/21/16 12/08/18 Unknown Rx Hydralazine HCl [Apresoline TAB] 50 mg PO TID #90 tablet 12/21/16 12/08/18 Unknown Rx Metoprolol [Lopressor TAB] 25 mg PO BID #90 tablet 12/21/16 12/08/18 Unknown Rx Promethazine /Codeine 5 ml PO Q6H PRN #100 ml 12/21/16 12/08/18 Unknown Rx [Phenergan/Codeine 6.25-10 mg/5 ml] Active Medications: Generic Name Dose Route Start Last Admin Trade Name Freq PRN Reason Stop Dose Admin Acetaminophen 650 mg 12/09/18 01:00 12/09/18 10:00 Tylenol WV 650 mg Q4H PRN Administration Pain MILD(1-3)/Fever >100.5/TURNER Albuterol 2.5 mg 12/09/18 00:31 Proventil IH Q4HRT PRN Shortness Of Breath Albuterol/Ipratropium 1 ampul 12/09/18 02:00 12/11/18 14:34 Duoneb *Not For Prn Use* IH 1 ampul Q6HRT KOLE Administration Lipase/Protease/Amylase 1 each 12/09/18 04:[address] 10,500 Unit FEEDTUBE PRN PRN For Clogged Feeding Tube Hydralazine HCl 50 mg 12/10/18 14:00 12/11/18 13:14 Apresoline PO 50 mg Q8HR KOLE Administration Hydrophilic Ointment 1 applic 12/08/18 13:31 Vaseline Lip Therapy TP Q2HR PRN Dry Lips Norepinephrine 4 mg in 250 mls @ 7.5 mls/hr 12/08/18 14:00 12/08/18 20:00 Levophed Drip 4 Mg/Ns 250 Ml IV 0 mcg/min TITR KOLE 0 mls/hr Titration Protocol 2 MCG/MIN Cefepime HCl 2 gm in 100 mls @ 200 mls/hr 12/09/18 10:00 12/11/18 11:00 Maxipime/Ns 2 Gm/100 Ml IV 200 mls/hr Q24HR KOLE Administration Protocol Sodium Chloride 1,000 mls @ 75 mls/hr 12/10/18 12:00 12/10/18 13:28 Nacl 0.45% 1000 Ml IV 75 mls/hr DIRECT KOLE Administration Insulin Human Lispro 0 unit 12/11/18 12:00 12/11/18 12:57 Humalog SUB-Q Not Given Q6HR KOLE Protocol Labetalol HCl 10 mg 12/09/18 16:18 12/10/18 09:14 Normodyne IV 10 mg Q4H PRN Administration Hypertension Multi-Ingred Cream/Lotion/Oil/Oint 1 applic 12/08/18 13:31 Artificial Tears Ophth Oint OU Q4HR PRN Dry Eye(s) Neomycin/Polymyxin/Hydrocortisone 4 drops 12/09/18 08:00 12/11/18 09:00 Cortisporin AU 4 drops TID KOLE Administration Ondansetron HCl 4 mg 12/09/18 00:31 Zofran IV Q8H PRN Nausea And Vomiting Pantoprazole Sodium 40 mg 12/10/18 22:00 12/11/18 11:00 Protonix IV 40 mg BID KOLE Administration Simple Syrup 15 ml 12/09/18 04:05 Simple Syrup FEEDTUBE PRN PRN Hypoglycemia Simple Syrup 30 ml 12/09/18 04:05 Simple Syrup FEEDTUBE PRN PRN Hypoglycemia Sodium Bicarbonate 325 mg 12/09/18 04:05 Sodium Bicarbonate FEEDTUBE PRN PRN For Clogged Feeding Tube Sodium Chloride 10 ml 12/09/18 10:00 12/11/18 11:01 Sodium Chloride Flush Syringe 10 Ml IV 10 ml BID KOLE Administration Sodium Chloride 10 ml 12/09/18 00:31 Sodium Chloride Flush Syringe 10 Ml IV PRN PRN LINE FLUSH
[2018-12-11] MEDS: NACL 0.45% 1000 ML 1,000 ML IV SCH (18:09)
[2018-12-12] MEDS: HumaLOG SUB-Q SCH ×4 (00:21→18:49)
[2018-12-12] MEDS: DUONEB *Not for PRN Use IH SCH ×4 (01:12→19:07)
[2018-12-12] MEDS: APRESOLINE PO SCH ×3 (06:31→22:06)
[2018-12-12] MEDS: CORTISPORIN AU SCH ×3 (07:59→20:07)
[2018-12-12] MEDS: NACL 0.45% 1000 ML 1,000 ML IV SCH (08:00)
--- NOTE | 2018-12-12 08:10 | Progress Note ---
Assessment and Plan Cultures: Blood culture 12/08/2018 no growth so far. 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 Etiology UTI +/- right otitis media/mastoiditis +/- ?meningitis +/- severe anemia. - Blood culture 12/08/2018 no growth so far. -Lactate 4 - CXR no consolidation. 2) UTI: UA wbc 157, LE mod, on cefepime 3) Right otitis media / mastoiditis: Per grand-daughter, she has been c/o right ear pain and drainage last week. Patient was putting Neosporin and perhaps ear stephanie in the patient's ear. On physical exam, patient found to have purulent discharge from the right ear, and stephanie are removed by ED physician. There is probable perforation of the right sided tympanic membrane per ED physician. Started on dexametasone, cefepime and vanco 4) Acute encephalopathy: not better, from sepsis alone versus meningitis versus CVA. CT head extensive right MCA encephalomalcia, right mastoid opacities. 5) Acute respiratory failure: CXR showed small left pleural effusion. CT chest showed large pericardial effusion, LLL atelectasis v/s infiltrate and left pleural effusion. 6) ?GI bleed 7) Severe anemia: ? Noted coffee-ground drainage from OG tube. 8) Severe thrombocytopenia: from sepsis 9) Large pericardial effusion: TTE EF>50, no echo evidence of tamponade 10) Penicillin allergy: tolerating cefepime 11) CKD: renally adjusted antibiotics Recommendations: - f/u blood cultures - obtain right ear culture - pending - when stable LP for CSF cell count, diff, protein, glucose, culture, Gram stain, VDRL, HSV and Crypto ag, LP ordered - continue cefepime, vancomycin renally adjusted for now - neuro on board considering more ischemic disease, possibly brain stem. - Brain MRI canceled due to pacemaker Poor prognosis Dr Donnelly to round tomorrow Pearl Mariee MD Infectious Diseases Client Relations Representative [facility] ([facility] M [phone] O [phone] Subjective Date of service: 12/12/18 Principal diagnosis: coffee-ground drainage Interval history: Remains intubated CMV fiO2 30% p6, unresponsive, no hypothermia ROS unable to obtain Objective - Exam Narrative Exam: General appearance: lethargic in NAD on the vent intubated Eyes: + mild icteric sclerae, gustavo edematous conjunctivae; HENT: Atraumatic; oropharynx +ETT. +right ear external canal with edema Neck: Trachea midline; supple, no thyromegaly or lymphadenopathy Lungs: gustavo coarse BS CV: tachycardic Abdomen: Soft, mild tenderness Extremities: No peripheral edema or extremity lymphadenopathy Skin: Normal temperature, turgor and texture; no rash, ulcers or subcutaneous nodules Psych: lethargic. Neuro: lethargic - Constitutional Vitals: Vital Signs Temp Pulse Resp BP Pulse Ox 96.9 F L 74 17 141/62 100 12/12/18 04:00 12/12/18 07:29 12/12/18 06:00 12/12/18 07:29 12/12/18 07:29 Temperature -Last 24 Hours Temperature 96.9 F Temperature 97.3 F Temperature 97.2 F Temperature 97.5 F Temperature 98.0 F - Labs CBC & Chem 7: 12/11/18 11:10 12/11/18 11:10 Labs: Abnormal lab results 12/11/18 12/11/18 12/11/18 Range/Units 06:19 11:10 11:10 WBC 14.3 H (4.5-11.0) K/mm3 MCV 73 L (79-97) fl MCH 24 L (28-32) pg RDW 21.5 H (13.2-15.2) % POC ABG pH (7.35-7.45) POC ABG pCO2 (35-45) POC ABG pO2 (80-105) Chloride 110.5 H (98-107) mmol/L Carbon Dioxide 15 L (22-30) mmol/L BUN 101 H (7-17) mg/dL Creatinine 2.4 H (0.7-1.2) mg/dL Glucose 119 H (65-100) mg/dL POC Glucose 174 H (70-105) Calcium 7.7 L (8.4-10.2) mg/dL 12/11/18 12/11/18 12/12/18 Range/Units 18:10 23:25 05:37 WBC (4.5-11.0) K/mm3 MCV (79-97) fl MCH (28-32) pg RDW (13.2-15.2) % POC ABG pH (7.35-7.45) POC ABG pCO2 (35-45) POC ABG pO2 (80-105) Chloride (98-107) mmol/L Carbon Dioxide (22-30) mmol/L BUN (7-17) mg/dL Creatinine (0.7-1.2) mg/dL Glucose (65-100) mg/dL POC Glucose 147 H 143 H 154 H (70-105) Calcium (8.4-10.2) mg/dL 12/12/18 Range/Units 06:03 WBC (4.5-11.0) K/mm3 MCV (79-97) fl MCH (28-32) pg RDW (13.2-15.2) % POC ABG pH 7.346 L (7.35-7.45) POC ABG pCO2 28.3 L (35-45) POC ABG pO2 120 H (80-105) Chloride (98-107) mmol/L Carbon Dioxide (22-30) mmol/L BUN (7-17) mg/dL Creatinine (0.7-1.2) mg/dL Glucose (65-100) mg/dL POC Glucose (70-105) Calcium (8.4-10.2) mg/dL
[2018-12-12 08:24] LABS: Hematocrit 32.3 % (30.3-42.9); Hemoglobin 10.7 gm/dl (10.1-14.3); Mean Corpuscular HGB Conc 33 % (30-34); Mean Corpuscular Volume 74 fl (79-97); Red Blood Count 4.38 M/mm3 (3.65-5.03)
[2018-12-12 08:29] LABS: Red Cell Distribution Width 21.9 % (13.2-15.2)
[2018-12-12 08:36] LABS: INR 1.61 (0.87-1.13)
--- NOTE | 2018-12-12 08:40 | Progress Note ---
Assessment and Plan Acute respiratory failure on ventilatory support Sepsis. Urinary tract infection origin versus mastoiditis/otitis. On ABX.No fever Acute on chronic kidney injury AMS.Prior stoke,see head CT changes.Neuro comments noted Metabolic acidosis. Improved Recommendations Continue antibiotics Monitor hemodynamics Head MRI Maintain extubation precautions DVT prophylaxis PPI prophylaxis Nuttritional support Appreciate neuro and ID comments Critical care time was 31 minutes of [id number] evaluation and coordination of care Subjective Date of service: 12/12/18 Principal diagnosis: coffee-ground drainage Interval history: Intubated Objective Vital Signs - 12hr 12/11/18 12/11/18 12/11/18 21:00 21:19 22:00 Temperature Pulse Rate 83 84 82 Pulse Rate [ Anterior Bilateral Throughout] Respiratory 12 13 Rate Respiratory Rate [Anterior Bilateral Throughout] Blood Pressure 151/63 145/72 157/73 O2 Sat by Pulse 100 100 Oximetry 12/11/18 12/11/18 12/12/18 23:00 23:50 00:00 Temperature 97.3 F L Pulse Rate 83 80 Pulse Rate [ Anterior Bilateral Throughout] Respiratory 16 18 Rate Respiratory Rate [Anterior Bilateral Throughout] Blood Pressure 144/67 131/72 O2 Sat by Pulse 100 100 Oximetry 12/12/18 12/12/18 12/12/18 01:00 01:13 01:23 Temperature Pulse Rate 80 81 Pulse Rate [ 81 91 H Anterior Bilateral Throughout] Respiratory 16 Rate Respiratory 22 20 Rate [Anterior Bilateral Throughout] Blood Pressure 146/68 157/67 O2 Sat by Pulse 100 100 Oximetry 12/12/18 12/12/18 12/12/18 02:00 03:00 04:00 Temperature 96.9 F L Pulse Rate 79 83 80 Pulse Rate [ Anterior Bilateral Throughout] Respiratory 18 15 15 Rate Respiratory Rate [Anterior Bilateral Throughout] Blood Pressure 141/63 147/66 134/65 O2 Sat by Pulse 100 100 100 Oximetry 12/12/18 12/12/18 12/12/18 04:30 05:00 06:00 Temperature Pulse Rate 82 81 77 Pulse Rate [ Anterior Bilateral Throughout] Respiratory 15 17 Rate Respiratory Rate [Anterior Bilateral Throughout] Blood Pressure 148/77 134/65 136/60 O2 Sat by Pulse 100 100 100 Oximetry 12/12/18 12/12/18 06:31 07:29 Temperature Pulse Rate 76 74 Pulse Rate [ 74 Anterior Bilateral Throughout] Respiratory Rate Respiratory 19 Rate [Anterior Bilateral Throughout] Blood Pressure 135/59 141/62 O2 Sat by Pulse 100 Oximetry Constitutional: no acute distress, other (dips to poor) Eyes: non-icteric ENT: other (ETT in position) Neck: supple, no JVD, other (right left IJ lines in place) Ascultation: Bilateral: clear, diminished breath sounds Cardiovascular: regular rate and rhythm, other (pacemaker rhythm) Gastrointestinal: normoactive bowel sounds, non-distended Integumentary: normal Extremities: no cyanosis, no edema, pink and warm Neurologic: pupils equal and round, other (Limited examination, basic responds when physically stimulated) CBC and BMP: 12/12/18 08:00 12/11/18 11:10 ABG, PT/INR, D-dimer: ABG POC ABG pH 7.346 (7.35-7.45) L 12/12/18 06:03 POC ABG pCO2 28.3 (35-45) L 12/12/18 06:03 POC ABG pO2 120 (80-105) H 12/12/18 06:03 POC ABG HCO3 15.5 12/12/18 06:03 POC ABG Total CO2 16 12/12/18 06:03 POC ABG O2 Sat 99 12/12/18 06:03 PT/INR, D-dimer PT 20.2 Sec. (12.2-14.9) H 12/12/18 08:00 INR 1.61 (0.87-1.13) H 12/12/18 08:00 Abnormal lab findings: Abnormal Labs 12/08/18 12/08/18 12/08/18 12:58 13:40 13:40 WBC RBC Hgb Hct MCV MCH RDW Plt Count Lymph % (Auto) Lymph # Seg Neutrophils % Seg Neuts % (Manual) Lymphocytes % (Manual) Seg Neutrophils # Seg Neutrophils # Man Lymphocytes # (Manual) PT INR POC ABG pH POC ABG pCO2 POC ABG pO2 Potassium Chloride Carbon Dioxide BUN Creatinine Glucose POC Glucose 143 H Lactic Acid Calcium Total Bilirubin AST Total Creatine Kinase C-Reactive Protein Total Protein Albumin TSH Free T4 Urine WBC (Auto) 157.0 H Crossmatch See Detail 12/08/18 12/08/18 12/08/18 13:40 13:40 13:40 WBC RBC 3.06 L Hgb 6.8 L Hct 21.1 L MCV 69 L MCH 22 L RDW 16.2 H Plt Count 56 L Lymph % (Auto) Lymph # Seg Neutrophils % Seg Neuts % (Manual) Lymphocytes % (Manual) 2.0 L Seg Neutrophils # Seg Neutrophils # Man Lymphocytes # (Manual) 0.2 L PT INR POC ABG pH POC ABG pCO2 POC ABG pO2 Potassium 3.2 L Chloride Carbon Dioxide 18 L BUN 64 H Creatinine 1.5 H Glucose 145 H POC Glucose Lactic Acid 4.00 H* Calcium 7.7 L Total Bilirubin AST Total Creatine Kinase 258 H C-Reactive Protein Total Protein 4.6 L Albumin 1.8 L TSH Free T4 Urine WBC (Auto) Crossmatch 12/08/18 12/08/18 12/08/18 14:29 15:21 16:06 WBC RBC Hgb Hct MCV MCH RDW Plt Count Lymph % (Auto) Lymph # Seg Neutrophils % Seg Neuts % (Manual) Lymphocytes % (Manual) Seg Neutrophils # Seg Neutrophils # Man Lymphocytes # (Manual) PT 20.5 H INR 1.64 H POC ABG pH POC ABG pCO2 34.2 L POC ABG pO2 465 H Potassium Chloride Carbon Dioxide BUN Creatinine Glucose POC Glucose Lactic Acid 3.00 H* Calcium Total Bilirubin AST Total Creatine Kinase C-Reactive Protein Total Protein Albumin TSH Free T4 Urine WBC (Auto) Crossmatch 12/09/18 12/09/18 12/09/18 02:31 05:36 05:36 WBC 14.5 H RBC Hgb Hct MCV 75 L MCH 25 L RDW 20.4 H Plt Count 68 L Lymph % (Auto) Lymph # Seg Neutrophils % Seg Neuts % (Manual) 81.0 H Lymphocytes % (Manual) 1.0 L Seg Neutrophils # Seg Neutrophils # Man 11.7 H Lymphocytes # (Manual) 0.1 L PT INR POC ABG pH POC ABG pCO2 POC ABG pO2 Potassium Chloride 107.6 H Carbon Dioxide 18 L BUN 75 H Creatinine 1.9 H Glucose 136 H POC Glucose 152 H Lactic Acid Calcium 7.9 L Total Bilirubin 1.60 H AST 44 H Total Creatine Kinase C-Reactive Protein Total Protein 5.2 L Albumin 2.4 L TSH Free T4 Urine WBC (Auto) Crossmatch 12/09/18 12/09/18 12/09/18 05:43 10:47 13:46 WBC RBC Hgb Hct MCV MCH RDW Plt Count Lymph % (Auto) Lymph # Seg Neutrophils % Seg Neuts % (Manual) Lymphocytes % (Manual) Seg Neutrophils # Seg Neutrophils # Man Lymphocytes # (Manual) PT INR POC ABG pH 7.308 L POC ABG pCO2 POC ABG pO2 183 H Potassium Chloride Carbon Dioxide BUN Creatinine Glucose POC Glucose 150 H 162 H Lactic Acid Calcium Total Bilirubin AST Total Creatine Kinase C-Reactive Protein Total Protein Albumin TSH Free T4 Urine WBC (Auto) Crossmatch 12/09/18 12/09/18 12/09/18 15:54 15:54 16:40 WBC RBC Hgb Hct MCV MCH RDW Plt Count Lymph % (Auto) Lymph # Seg Neutrophils % Seg Neuts % (Manual) Lymphocytes % (Manual) Seg Neutrophils # Seg Neutrophils # Man Lymphocytes # (Manual) PT INR POC ABG pH POC ABG pCO2 POC ABG pO2 Potassium Chloride Carbon Dioxide BUN Creatinine Glucose POC Glucose 197 H Lactic Acid Calcium Total Bilirubin AST Total Creatine Kinase C-Reactive Protein Total Protein Albumin TSH 0.268 L Free T4 0.58 L Urine WBC (Auto) Crossmatch 12/09/18 12/09/18 12/09/18 18:18 18:18 21:51 WBC RBC Hgb Hct MCV MCH RDW Plt Count Lymph % (Auto) Lymph # Seg Neutrophils % Seg Neuts % (Manual) Lymphocytes % (Manual) Seg Neutrophils # Seg Neutrophils # Man Lymphocytes # (Manual) PT INR POC ABG pH POC ABG pCO2 POC ABG pO2 Potassium Chloride 108.2 H Carbon Dioxide 16 L BUN 89 H Creatinine 2.3 H Glucose 180 H POC Glucose 198 H Lactic Acid Calcium 7.9 L Total Bilirubin AST Total Creatine Kinase C-Reactive Protein 19.60 H Total Protein Albumin TSH Free T4 Urine WBC (Auto) Crossmatch 12/10/18 12/10/18 12/10/18 01:59 04:14 04:38 WBC 11.5 H RBC Hgb Hct MCV 75 L MCH 25 L RDW 21.1 H Plt Count 81 L Lymph % (Auto) 5.6 L Lymph # 0.6 L Seg Neutrophils % 89.8 H Seg Neuts % (Manual) Lymphocytes % (Manual) Seg Neutrophils # 10.3 H Seg Neutrophils # Man Lymphocytes # (Manual) PT INR POC ABG pH 7.273 L POC ABG pCO2 32.1 L POC ABG pO2 161 H Potassium Chloride Carbon Dioxide BUN Creatinine Glucose POC Glucose 219 H Lactic Acid Calcium Total Bilirubin AST Total Creatine Kinase C-Reactive Protein Total Protein Albumin TSH Free T4 Urine WBC (Auto) Crossmatch 12/10/18 12/10/18 12/10/18 04:38 05:07 07:26 WBC RBC Hgb Hct MCV MCH RDW Plt Count Lymph % (Auto) Lymph # Seg Neutrophils % Seg Neuts % (Manual) Lymphocytes % (Manual) Seg Neutrophils # Seg Neutrophils # Man Lymphocytes # (Manual) PT INR POC ABG pH POC ABG pCO2 POC ABG pO2 Potassium Chloride 112.5 H Carbon Dioxide 14 L BUN 94 H Creatinine 2.4 H Glucose 207 H POC Glucose 221 H 212 H Lactic Acid Calcium 7.7 L Total Bilirubin AST Total Creatine Kinase C-Reactive Protein Total Protein Albumin TSH Free T4 Urine WBC (Auto) Crossmatch 12/10/18 12/10/18 12/10/18 10:40 11:15 14:21 WBC RBC Hgb Hct MCV MCH RDW Plt Count Lymph % (Auto) Lymph # Seg Neutrophils % Seg Neuts % (Manual) Lymphocytes % (Manual) Seg Neutrophils # Seg Neutrophils # Man Lymphocytes # (Manual) PT 21.4 H INR 1.73 H POC ABG pH 7.214 L POC ABG pCO2 32.8 L POC ABG pO2 Potassium Chloride Carbon Dioxide BUN Creatinine Glucose POC Glucose 227 H Lactic Acid Calcium Total Bilirubin AST Total Creatine Kinase C-Reactive Protein Total Protein Albumin TSH Free T4 Urine WBC (Auto) Crossmatch 12/10/18 12/10/18 12/11/18 15:47 22:38 03:36 WBC RBC Hgb Hct MCV MCH RDW Plt Count Lymph % (Auto) Lymph # Seg Neutrophils % Seg Neuts % (Manual) Lymphocytes % (Manual) Seg Neutrophils # Seg Neutrophils # Man Lymphocytes # (Manual) PT INR POC ABG pH POC ABG pCO2 26.2 L POC ABG pO2 138 H Potassium Chloride Carbon Dioxide BUN Creatinine Glucose POC Glucose 202 H 259 H Lactic Acid Calcium Total Bilirubin AST Total Creatine Kinase C-Reactive Protein Total Protein Albumin TSH Free T4 Urine WBC (Auto) Crossmatch 12/11/18 12/11/18 12/11/18 04:12 05:00 06:19 WBC RBC Hgb Hct MCV MCH RDW Plt Count Lymph % (Auto) Lymph # Seg Neutrophils % Seg Neuts % (Manual) Lymphocytes % (Manual) Seg Neutrophils # Seg Neutrophils # Man Lymphocytes # (Manual) PT 19.5 H INR 1.54 H POC ABG pH POC ABG pCO2 24.6 L POC ABG pO2 119 H Potassium Chloride Carbon Dioxide BUN Creatinine Glucose POC Glucose 174 H Lactic Acid Calcium Total Bilirubin AST Total Creatine Kinase C-Reactive Protein Total Protein Albumin TSH Free T4 Urine WBC (Auto) Crossmatch 12/11/18 12/11/18 12/11/18 11:10 11:10 18:10 WBC 14.3 H RBC Hgb Hct MCV 73 L MCH 24 L RDW 21.5 H Plt Count Lymph % (Auto) Lymph # Seg Neutrophils % Seg Neuts % (Manual) Lymphocytes % (Manual) Seg Neutrophils # Seg Neutrophils # Man Lymphocytes # (Manual) PT INR POC ABG pH POC ABG pCO2 POC ABG pO2 Potassium Chloride 110.5 H Carbon Dioxide 15 L BUN 101 H Creatinine 2.4 H Glucose 119 H POC Glucose 147 H Lactic Acid Calcium 7.7 L Total Bilirubin AST Total Creatine Kinase C-Reactive Protein Total Protein Albumin TSH Free T4 Urine WBC (Auto) Crossmatch 12/11/18 12/12/18 12/12/18 23:25 05:37 06:03 WBC RBC Hgb Hct MCV MCH RDW Plt Count Lymph % (Auto) Lymph # Seg Neutrophils % Seg Neuts % (Manual) Lymphocytes % (Manual) Seg Neutrophils # Seg Neutrophils # Man Lymphocytes # (Manual) PT INR POC ABG pH 7.346 L POC ABG pCO2 28.3 L POC ABG pO2 120 H Potassium Chloride Carbon Dioxide BUN Creatinine Glucose POC Glucose 143 H 154 H Lactic Acid Calcium Total Bilirubin AST Total Creatine Kinase C-Reactive Protein Total Protein Albumin TSH Free T4 Urine WBC (Auto) Crossmatch 12/12/18 12/12/18 08:00 08:00 WBC 16.2 H RBC Hgb Hct MCV 74 L MCH 25 L RDW 21.9 H Plt Count Lymph % (Auto) Lymph # Seg Neutrophils % Seg Neuts % (Manual) Lymphocytes % (Manual) Seg Neutrophils # Seg Neutrophils # Man Lymphocytes # (Manual) PT 20.2 H INR 1.61 H POC ABG pH POC ABG pCO2 POC ABG pO2 Potassium Chloride Carbon Dioxide BUN Creatinine Glucose POC Glucose Lactic Acid Calcium Total Bilirubin AST Total Creatine Kinase C-Reactive Protein Total Protein Albumin TSH Free T4 Urine WBC (Auto) Crossmatch
[2018-12-12 08:51] LABS: Calcium 8.2 mg/dL (8.4-10.2)
[2018-12-12 09:13] LABS: Platelet Count 21 K/mm3 (140-440)
[2018-12-12] MEDS: MAXIPIME/NS 2 GM/100 ML 2 GM/100 ML BAG IV SCH (09:13)
[2018-12-12] MEDS: SODIUM CHLORIDE FLUSH SYRINGE 10 ML IV SCH ×2 (09:14→22:06)
[2018-12-12] MEDS: PREVACID SOLUTAB FEEDTUBE SCH ×2 (09:14→22:05)
[2018-12-12] MEDS ORDERED: VANCOMYCIN 750 MG in NACL 0.9% 250ML 250 ML IV ONE (10:00)
--- NOTE | 2018-12-12 10:18 | Progress Note ---
Assessment and Plan Cont supportive measures. Cont PRN IV labetalol and plan to convert to PO once enteral intake is resumed. Pt has large pericardial effusion, suspect uremic pericarditis. No evidence of tamponade. No plans for pericardiocentesis at this time. The patient has been seen in conjunction with Dr. Bonilla who agrees with the assessment and plan of care. - Patient Problems (1) Pericardial effusion Current Visit: Yes Status: Acute (2) Acute respiratory failure with hypoxia Current Visit: Yes Status: Acute (3) Sepsis Current Visit: Yes Status: Acute Qualifiers: Sepsis type: sepsis due to unspecified organism Qualified Code(s): A41.9 - Sepsis, unspecified organism (4) UTI (urinary tract infection) Current Visit: Yes Status: Acute (5) Altered mental status Current Visit: Yes Status: Acute (6) GI bleed Current Visit: Yes Status: Acute (7) History of CVA (cerebrovascular accident) Current Visit: Yes Status: Chronic (8) HLD (hyperlipidemia) Current Visit: Yes Status: Chronic Qualifiers: Hyperlipidemia type: mixed hyperlipidemia Qualified Code(s): E78.2 - Mixed hyperlipidemia (9) HTN (hypertension) Current Visit: Yes Status: Chronic (10) T2DM (type 2 diabetes mellitus) Current Visit: Yes Status: Chronic Qualifiers: 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 no family members at bedside. Objective Last Vital Signs Temp 96.7 F L 12/12/18 08:00 Pulse 74 12/12/18 09:00 Resp 12 12/12/18 09:00 BP 151/69 12/12/18 09:00 Pulse Ox 100 12/12/18 09:00 - Physical Examination General: Other (intubated, nonresponsive ) Neck: Positive: neck supple Cardiac: Positive: Reg Rate and Rhythm, S1/S2 Lungs: Positive: Decreased Breath Sounds, Ventilated Respirations Neuro: Positive: Other (intubated, nonresponsive) - Labs and Meds Coagulation 12/12/18 Range/Units 08:00 PT 20.2 H (12.2-14.9) Sec. INR 1.61 H (0.87-1.13) CBC 12/11/18 12/12/18 Range/Units 11:10 08:00 WBC 14.3 H 16.2 H (4.5-11.0) K/mm3 RBC 4.66 4.38 (3.65-5.03) M/mm3 Hgb 11.2 10.7 (10.1-14.3) gm/dl Hct 34.0 32.3 (30.3-42.9) % Plt Count 21 L (140-440) K/mm3 Comprehensive Metabolic Panel 12/11/18 12/12/18 Range/Units 11:10 08:00 Sodium 143 140 (137-145) mmol/L Potassium 4.2 4.1 (3.6-5.0) mmol/L Chloride 110.5 H 107.4 H (98-107) mmol/L Carbon Dioxide 15 L 16 L (22-30) mmol/L BUN 101 H 101 H (7-17) mg/dL Creatinine 2.4 H 2.3 H (0.7-1.2) mg/dL Glucose 119 H 169 H (65-100) mg/dL Calcium 7.7 L 8.2 L (8.4-10.2) mg/dL
[2018-12-12] MEDS ORDERED: SIMPLE SYRUP FEEDTUBE PRN ×2 (10:38)
[2018-12-12] MEDS ORDERED: SODIUM BICARBONATE FEEDTUBE PRN (10:38)
[2018-12-12] MEDS ORDERED: PANCREAZE DR 10,500 UNIT FEEDTUBE PRN (10:38)
--- NOTE | 2018-12-12 12:47 | Progress Note ---
Assessment and Plan 88 year old female with hx of DM, HTN, and stroke was brought in unresponsive, with suspected sepsis. 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 The patient's exam is interesting in that the rt. arm is now flaccid and left leg seems to move more than the right. Lt. corneal reflex is also out. I suspect there may be more ischemic disease, possibly brain stem. Attempts at weaning off the ventilator result in apnea. MRI cannot be performed because of pacemeaker. Plan - will check EEG to R/O subclinical seizure activity. Subjective Date of service: 12/12/18 Principal diagnosis: coffee-ground drainage Interval history: Patient remains unresponsive on the ventilator . No changes over the last 24 hrs. Objective - Vital Sign Vital Signs - 12hr 12/12/18 12/12/18 12/12/18 01:00 01:13 01:23 Temperature Pulse Rate 80 81 Pulse Rate [ 81 91 H Anterior Bilateral Throughout] Respiratory 16 Rate Respiratory 22 20 Rate [Anterior Bilateral Throughout] Blood Pressure 146/68 157/67 O2 Sat by Pulse 100 100 Oximetry 12/12/18 12/12/18 12/12/18 02:00 03:00 04:00 Temperature 96.9 F L Pulse Rate 79 83 80 Pulse Rate [ Anterior Bilateral Throughout] Respiratory 18 15 15 Rate Respiratory Rate [Anterior Bilateral Throughout] Blood Pressure 141/63 147/66 134/65 O2 Sat by Pulse 100 100 100 Oximetry 12/12/18 12/12/18 12/12/18 04:30 05:00 06:00 Temperature Pulse Rate 82 81 77 Pulse Rate [ Anterior Bilateral Throughout] Respiratory 15 17 Rate Respiratory Rate [Anterior Bilateral Throughout] Blood Pressure 148/77 134/65 136/60 O2 Sat by Pulse 100 100 100 Oximetry 12/12/18 12/12/18 12/12/18 06:31 07:00 07:29 Temperature Pulse Rate 76 75 74 Pulse Rate [ 74 Anterior Bilateral Throughout] Respiratory 15 Rate Respiratory 19 Rate [Anterior Bilateral Throughout] Blood Pressure 135/59 141/62 141/62 O2 Sat by Pulse 100 100 Oximetry 12/12/18 12/12/18 12/12/18 08:00 09:00 11:47 Temperature 96.7 F L Pulse Rate 74 74 69 Pulse Rate [ Anterior Bilateral Throughout] Respiratory 16 12 Rate Respiratory Rate [Anterior Bilateral Throughout] Blood Pressure 148/61 151/69 144/64 O2 Sat by Pulse 100 100 100 Oximetry General - the pt. os unresponsive on the ventilator Neurological - Keeps eyes closed. No response to verbal stimuli or chest rub. CN's - eyes are midline. pupils 2 mm. No corneal response on the left, positive on the rt. Cannot assess face and tongue, because of ET. Motor - Rt. arm is flaccid. Rt. leg - withdraws to pain. Lt. arm - rigid, with posturing and clenched hand. Left leg - moves spontaneously Reflexes - decreased throughout. Sensory - RUE - grimaces to pain, RLE - slight movement and grimace to pain. LLE - moves to pain. LUE no response to pain. - Laboratory Findings CBC and BMP: 12/12/18 08:00 12/12/18 08:00 Abnormal Lab Findings: Abnormal Labs 12/08/18 12/08/18 12/08/18 12:58 13:40 13:40 WBC RBC Hgb Hct MCV MCH RDW Plt Count Lymph % (Auto) Lymph # Seg Neutrophils % Seg Neuts % (Manual) Lymphocytes % (Manual) Seg Neutrophils # Seg Neutrophils # Man Lymphocytes # (Manual) PT INR POC ABG pH POC ABG pCO2 POC ABG pO2 Potassium Chloride Carbon Dioxide BUN Creatinine Glucose POC Glucose 143 H Lactic Acid Calcium Total Bilirubin AST Total Creatine Kinase C-Reactive Protein Total Protein Albumin TSH Free T4 Urine WBC (Auto) 157.0 H Crossmatch See Detail 12/08/18 12/08/18 12/08/18 13:40 13:40 13:40 WBC RBC 3.06 L Hgb 6.8 L Hct 21.1 L MCV 69 L MCH 22 L RDW 16.2 H Plt Count 56 L Lymph % (Auto) Lymph # Seg Neutrophils % Seg Neuts % (Manual) Lymphocytes % (Manual) 2.0 L Seg Neutrophils # Seg Neutrophils # Man Lymphocytes # (Manual) 0.2 L PT INR POC ABG pH POC ABG pCO2 POC ABG pO2 Potassium 3.2 L Chloride Carbon Dioxide 18 L BUN 64 H Creatinine 1.5 H Glucose 145 H POC Glucose Lactic Acid 4.00 H* Calcium 7.7 L Total Bilirubin AST Total Creatine Kinase 258 H C-Reactive Protein Total Protein 4.6 L Albumin 1.8 L TSH Free T4 Urine WBC (Auto) Crossmatch 12/08/18 12/08/18 12/08/18 14:29 15:21 16:06 WBC RBC Hgb Hct MCV MCH RDW Plt Count Lymph % (Auto) Lymph # Seg Neutrophils % Seg Neuts % (Manual) Lymphocytes % (Manual) Seg Neutrophils # Seg Neutrophils # Man Lymphocytes # (Manual) PT 20.5 H INR 1.64 H POC ABG pH POC ABG pCO2 34.2 L POC ABG pO2 465 H Potassium Chloride Carbon Dioxide BUN Creatinine Glucose POC Glucose Lactic Acid 3.00 H* Calcium Total Bilirubin AST Total Creatine Kinase C-Reactive Protein Total Protein Albumin TSH Free T4 Urine WBC (Auto) Crossmatch 12/09/18 12/09/18 12/09/18 02:31 05:36 05:36 WBC 14.5 H RBC Hgb Hct MCV 75 L MCH 25 L RDW 20.4 H Plt Count 68 L Lymph % (Auto) Lymph # Seg Neutrophils % Seg Neuts % (Manual) 81.0 H Lymphocytes % (Manual) 1.0 L Seg Neutrophils # Seg Neutrophils # Man 11.7 H Lymphocytes # (Manual) 0.1 L PT INR POC ABG pH POC ABG pCO2 POC ABG pO2 Potassium Chloride 107.6 H Carbon Dioxide 18 L BUN 75 H Creatinine 1.9 H Glucose 136 H POC Glucose 152 H Lactic Acid Calcium 7.9 L Total Bilirubin 1.60 H AST 44 H Total Creatine Kinase C-Reactive Protein Total Protein 5.2 L Albumin 2.4 L TSH Free T4 Urine WBC (Auto) Crossmatch 12/09/18 12/09/18 12/09/18 05:43 10:47 13:46 WBC RBC Hgb Hct MCV MCH RDW Plt Count Lymph % (Auto) Lymph # Seg Neutrophils % Seg Neuts % (Manual) Lymphocytes % (Manual) Seg Neutrophils # Seg Neutrophils # Man Lymphocytes # (Manual) PT INR POC ABG pH 7.308 L POC ABG pCO2 POC ABG pO2 183 H Potassium Chloride Carbon Dioxide BUN Creatinine Glucose POC Glucose 150 H 162 H Lactic Acid Calcium Total Bilirubin AST Total Creatine Kinase C-Reactive Protein Total Protein Albumin TSH Free T4 Urine WBC (Auto) Crossmatch 12/09/18 12/09/18 12/09/18 15:54 15:54 16:40 WBC RBC Hgb Hct MCV MCH RDW Plt Count Lymph % (Auto) Lymph # Seg Neutrophils % Seg Neuts % (Manual) Lymphocytes % (Manual) Seg Neutrophils # Seg Neutrophils # Man Lymphocytes # (Manual) PT INR POC ABG pH POC ABG pCO2 POC ABG pO2 Potassium Chloride Carbon Dioxide BUN Creatinine Glucose POC Glucose 197 H Lactic Acid Calcium Total Bilirubin AST Total Creatine Kinase C-Reactive Protein Total Protein Albumin TSH 0.268 L Free T4 0.58 L Urine WBC (Auto) Crossmatch 12/09/18 12/09/18 12/09/18 18:18 18:18 21:51 WBC RBC Hgb Hct MCV MCH RDW Plt Count Lymph % (Auto) Lymph # Seg Neutrophils % Seg Neuts % (Manual) Lymphocytes % (Manual) Seg Neutrophils # Seg Neutrophils # Man Lymphocytes # (Manual) PT INR POC ABG pH POC ABG pCO2 POC ABG pO2 Potassium Chloride 108.2 H Carbon Dioxide 16 L BUN 89 H Creatinine 2.3 H Glucose 180 H POC Glucose 198 H Lactic Acid Calcium 7.9 L Total Bilirubin AST Total Creatine Kinase C-Reactive Protein 19.60 H Total Protein Albumin TSH Free T4 Urine WBC (Auto) Crossmatch 12/10/18 12/10/18 12/10/18 01:59 04:14 04:38 WBC 11.5 H RBC Hgb Hct MCV 75 L MCH 25 L RDW 21.1 H Plt Count 81 L Lymph % (Auto) 5.6 L Lymph # 0.6 L Seg Neutrophils % 89.8 H Seg Neuts % (Manual) Lymphocytes % (Manual) Seg Neutrophils # 10.3 H Seg Neutrophils # Man Lymphocytes # (Manual) PT INR POC ABG pH 7.273 L POC ABG pCO2 32.1 L POC ABG pO2 161 H Potassium Chloride Carbon Dioxide BUN Creatinine Glucose POC Glucose 219 H Lactic Acid Calcium Total Bilirubin AST Total Creatine Kinase C-Reactive Protein Total Protein Albumin TSH Free T4 Urine WBC (Auto) Crossmatch 12/10/18 12/10/18 12/10/18 04:38 05:07 07:26 WBC RBC Hgb Hct MCV MCH RDW Plt Count Lymph % (Auto) Lymph # Seg Neutrophils % Seg Neuts % (Manual) Lymphocytes % (Manual) Seg Neutrophils # Seg Neutrophils # Man Lymphocytes # (Manual) PT INR POC ABG pH POC ABG pCO2 POC ABG pO2 Potassium Chloride 112.5 H Carbon Dioxide 14 L BUN 94 H Creatinine 2.4 H Glucose 207 H POC Glucose 221 H 212 H Lactic Acid Calcium 7.7 L Total Bilirubin AST Total Creatine Kinase C-Reactive Protein Total Protein Albumin TSH Free T4 Urine WBC (Auto) Crossmatch 12/10/18 12/10/18 12/10/18 10:40 11:15 14:21 WBC RBC Hgb Hct MCV MCH RDW Plt Count Lymph % (Auto) Lymph # Seg Neutrophils % Seg Neuts % (Manual) Lymphocytes % (Manual) Seg Neutrophils # Seg Neutrophils # Man Lymphocytes # (Manual) PT 21.4 H INR 1.73 H POC ABG pH 7.214 L POC ABG pCO2 32.8 L POC ABG pO2 Potassium Chloride Carbon Dioxide BUN Creatinine Glucose POC Glucose 227 H Lactic Acid Calcium Total Bilirubin AST Total Creatine Kinase C-Reactive Protein Total Protein Albumin TSH Free T4 Urine WBC (Auto) Crossmatch 12/10/18 12/10/18 12/11/18 15:47 22:38 03:36 WBC RBC Hgb Hct MCV MCH RDW Plt Count Lymph % (Auto) Lymph # Seg Neutrophils % Seg Neuts % (Manual) Lymphocytes % (Manual) Seg Neutrophils # Seg Neutrophils # Man Lymphocytes # (Manual) PT INR POC ABG pH POC ABG pCO2 26.2 L POC ABG pO2 138 H Potassium Chloride Carbon Dioxide BUN Creatinine Glucose POC Glucose 202 H 259 H Lactic Acid Calcium Total Bilirubin AST Total Creatine Kinase C-Reactive Protein Total Protein Albumin TSH Free T4 Urine WBC (Auto) Crossmatch 12/11/18 12/11/18 12/11/18 04:12 05:00 06:19 WBC RBC Hgb Hct MCV MCH RDW Plt Count Lymph % (Auto) Lymph # Seg Neutrophils % Seg Neuts % (Manual) Lymphocytes % (Manual) Seg Neutrophils # Seg Neutrophils # Man Lymphocytes # (Manual) PT 19.5 H INR 1.54 H POC ABG pH POC ABG pCO2 24.6 L POC ABG pO2 119 H Potassium Chloride Carbon Dioxide BUN Creatinine Glucose POC Glucose 174 H Lactic Acid Calcium Total Bilirubin AST Total Creatine Kinase C-Reactive Protein Total Protein Albumin TSH Free T4 Urine WBC (Auto) Crossmatch 12/11/18 12/11/18 12/11/18 11:10 11:10 18:10 WBC 14.3 H RBC Hgb Hct MCV 73 L MCH 24 L RDW 21.5 H Plt Count Lymph % (Auto) Lymph # Seg Neutrophils % Seg Neuts % (Manual) Lymphocytes % (Manual) Seg Neutrophils # Seg Neutrophils # Man Lymphocytes # (Manual) PT INR POC ABG pH POC ABG pCO2 POC ABG pO2 Potassium Chloride 110.5 H Carbon Dioxide 15 L BUN 101 H Creatinine 2.4 H Glucose 119 H POC Glucose 147 H Lactic Acid Calcium 7.7 L Total Bilirubin AST Total Creatine Kinase C-Reactive Protein Total Protein Albumin TSH Free T4 Urine WBC (Auto) Crossmatch 12/11/18 12/12/18 12/12/18 23:25 05:37 06:03 WBC RBC Hgb Hct MCV MCH RDW Plt Count Lymph % (Auto) Lymph # Seg Neutrophils % Seg Neuts % (Manual) Lymphocytes % (Manual) Seg Neutrophils # Seg Neutrophils # Man Lymphocytes # (Manual) PT INR POC ABG pH 7.346 L POC ABG pCO2 28.3 L POC ABG pO2 120 H Potassium Chloride Carbon Dioxide BUN Creatinine Glucose POC Glucose 143 H 154 H Lactic Acid Calcium Total Bilirubin AST Total Creatine Kinase C-Reactive Protein Total Protein Albumin TSH Free T4 Urine WBC (Auto) Crossmatch 12/12/18 12/12/18 12/12/18 08:00 08:00 08:00 WBC 16.2 H RBC Hgb Hct MCV 74 L MCH 25 L RDW 21.9 H Plt Count 21 L Lymph % (Auto) Lymph # Seg Neutrophils % Seg Neuts % (Manual) Lymphocytes % (Manual) Seg Neutrophils # Seg Neutrophils # Man Lymphocytes # (Manual) PT 20.2 H INR 1.61 H POC ABG pH POC ABG pCO2 POC ABG pO2 Potassium Chloride 107.4 H Carbon Dioxide 16 L BUN 101 H Creatinine 2.3 H Glucose 169 H POC Glucose Lactic Acid Calcium 8.2 L Total Bilirubin AST Total Creatine Kinase C-Reactive Protein Total Protein Albumin TSH Free T4 Urine WBC (Auto) Crossmatch
--- NOTE | 2018-12-12 14:09 | Progress Note ---
Assessment and Plan /Acute respiratory failure, intubated Likely from underlying severe sepsis and pleural effusion? Merchandise Presentation Manager/Pulm consulted Continue nebs, continue antibiotics Wean off vent support as tolerated CXR showed small left pleural effusion. CT chest showed large pericardial effusion, LLL atelectasis v/s infiltrate and left pleural effusion. /Acute encephalopathy: likely from sepsis alone versus possible meningitis vs seizure. CT head extensive right MCA encephalomalcia, right mastoid opacities. neurology ordered EEG. 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 - when stable need LP for CSF cell count, diff, protein, glucose, culture, Gram stain, VDRL, HSV and Crypto ag, LP ordered by ID - continue cefepime, vancomycin renally adjusted for now /Sepsis likely due to UTI , right mastoiditis Blood cultures drawn Started on Cefepime, vanco /Hypotension/septic shock On Levophed /Left lower lobe infiltrate, poss pneumonia - Treat with antibiotic for now /Large Pericardial effusion. TTE EF>50, no echo evidence of tamponade. cardiology consulted and recommended medical management for now /Coffe ground contents from NG aspirate cont Protonix drip, Consulted GI Monitor H/H /MARYANN on CKD 3 baseline Cr around 1.2-1.5mg/dl likely due to underlying sepsis Monitor BMP, Consulted nephrology- no indication for HD now /Acute on chronic anemia has h/o anemia requiring previous blood transfusions could be multifactorial, GI on board s/p 2 Units PRBC transfused on 12/08/18 / h/o Hypertension - pt now hypotensive from sepsis /Diabetes type 2, SSI as needed Full code status. 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 In the ED, She was found in acute respiratory failure, requiring bag valve mask ventilation and hypotensive. Noted coffee-ground drainage from OG tube and patient also found to have purulent discharge from the right ear, and stephanie are removed by ED physician. Patient was intubated in the ER and admitted to the ICU for further evaluation and management. Blood culture 12/08/[address] no growth so far. CT head extensive right MCA encephalomalcia, right mastoid opacities. CXR showed small left pleural effusion. CT chest showed large pericardial effusion, LLL atelectasis v/s infiltrate and left pleural effusion. s/p 2 units PRBc transfusion on 12/08/18. renal consulted for worsening renal function. Hospitalist Physical GEN: Intubated, On vent, not in acute distress HEENT: Normocephalic, atraumatic, Neck: supple, No JVD Cardio: s1 and s2 positive Lungs: Clear to auscultation bilaterally, no wheeze Abd:soft, non tender, non distended, normal bowel sounds Ext: No edema, no clubbing, no cyanosis Neuro: Intubated, does not follow commend Skin: No rash The high probability of a clinically significant, sudden or life threatening deterioration of the [multiple] system(s) required my full and direct attention, intervention and personal management. The aggregate critical care time was [35] minutes. This time is in addition to time spent performing reported procedures but includes the following: [x] Data Review and interpretation [x] Patient assessment and monitoring of vital signs [x] Documentation [x] Medication orders and management Subjective Date of service: 12/12/18 Principal diagnosis: coffee-ground drainage Interval history: Patient seen and examined. Medical records and medication list reviewed. No acute event overnight noted by the RN. Patient remained intubated, tolerating tube feeding diet Discussed plan of care at bedside with RN and ID. Objective - Constitutional Vitals: Vital Signs - 12hr 12/12/18 12/12/18 12/12/18 03:00 04:00 04:30 Temperature 96.9 F L Pulse Rate 83 80 82 Pulse Rate [ Anterior Bilateral Throughout] Respiratory 15 15 Rate Respiratory Rate [Anterior Bilateral Throughout] Blood Pressure 147/66 134/65 148/77 O2 Sat by Pulse 100 100 100 Oximetry 12/12/18 12/12/18 12/12/18 05:00 06:00 06:31 Temperature Pulse Rate 81 77 76 Pulse Rate [ Anterior Bilateral Throughout] Respiratory 15 17 Rate Respiratory Rate [Anterior Bilateral Throughout] Blood Pressure 134/65 136/60 135/59 O2 Sat by Pulse 100 100 Oximetry 12/12/18 12/12/18 12/12/18 07:00 07:29 08:00 Temperature 96.7 F L Pulse Rate 75 74 74 Pulse Rate [ 74 Anterior Bilateral Throughout] Respiratory 15 16 Rate Respiratory 19 Rate [Anterior Bilateral Throughout] Blood Pressure 141/62 141/62 148/61 O2 Sat by Pulse 100 100 100 Oximetry 12/12/18 12/12/18 12/12/18 09:00 10:00 11:00 Temperature Pulse Rate 74 71 69 Pulse Rate [ Anterior Bilateral Throughout] Respiratory 12 17 18 Rate Respiratory Rate [Anterior Bilateral Throughout] Blood Pressure 151/69 139/65 134/64 O2 Sat by Pulse 100 100 100 Oximetry 12/12/18 12/12/18 12/12/18 11:47 12:00 13:15 Temperature 96.6 F L Pulse Rate 69 69 71 Pulse Rate [ Anterior Bilateral Throughout] Respiratory 18 Rate Respiratory Rate [Anterior Bilateral Throughout] Blood Pressure 144/64 149/66 153/62 O2 Sat by Pulse 100 100 Oximetry - Labs CBC & Chem 7: 12/13/18 04:28 12/13/18 04:28 Labs: Abnormal lab results 12/11/18 12/11/18 12/12/18 Range/Units 18:10 23:25 05:37 WBC (4.5-11.0) K/mm3 MCV (79-97) fl MCH (28-32) pg RDW (13.2-15.2) % Plt Count (140-440) K/mm3 PT (12.2-14.9) Sec. INR (0.87-1.13) POC ABG pH (7.35-7.45) POC ABG pCO2 (35-45) POC ABG pO2 (80-105) Chloride (98-107) mmol/L Carbon Dioxide (22-30) mmol/L BUN (7-17) mg/dL Creatinine (0.7-1.2) mg/dL Glucose (65-100) mg/dL POC Glucose 147 H 143 H 154 H (70-105) Calcium (8.4-10.2) mg/dL 12/12/18 12/12/18 12/12/18 Range/Units 06:03 08:00 08:00 WBC 16.2 H (4.5-11.0) K/mm3 MCV 74 L (79-97) fl MCH 25 L (28-32) pg RDW 21.9 H (13.2-15.2) % Plt Count 21 L (140-440) K/mm3 PT 20.2 H (12.2-14.9) Sec. INR 1.61 H (0.87-1.13) POC ABG pH 7.346 L (7.35-7.45) POC ABG pCO2 28.3 L (35-45) POC ABG pO2 120 H (80-105) Chloride (98-107) mmol/L Carbon Dioxide (22-30) mmol/L BUN (7-17) mg/dL Creatinine (0.7-1.2) mg/dL Glucose (65-100) mg/dL POC Glucose (70-105) Calcium (8.4-10.2) mg/dL 12/12/18 12/12/18 Range/Units 08:00 12:59 WBC (4.5-11.0) K/mm3 MCV (79-97) fl MCH (28-32) pg RDW (13.2-15.2) % Plt Count (140-440) K/mm3 PT (12.2-14.9) Sec. INR (0.87-1.13) POC ABG pH (7.35-7.45) POC ABG pCO2 (35-45) POC ABG pO2 (80-105) Chloride 107.4 H (98-107) mmol/L Carbon Dioxide 16 L (22-30) mmol/L BUN 101 H (7-17) mg/dL Creatinine 2.3 H (0.7-1.2) mg/dL Glucose 169 H (65-100) mg/dL POC Glucose 158 H (70-105) Calcium 8.2 L (8.4-10.2) mg/dL
--- NOTE | 2018-12-12 16:54 | Progress Note ---
Assessment and Plan - Patient Problems (1) Acute kidney failure with tubular necrosis Current Visit: Yes Status: Acute Plan to address problem: suspect acute tubular necrosis in the setting of sepsis and hemorrhagic anemia leading to hypotension. possible GI bleed contributing to rising BUN. Unclear whether large pericardial effusion is acute or chronic, uremic pericarditis cannot be ruled out. eGFR stabilizing, no emergent indication for HD at present. For now will continue supportive care, cont IVF with 1/2 NS given presence of hyperchloremic met acidosis, maintain MAP > 65mmhg, avoid nephrotoxins, NSAIDs, IV contrasts. will monitor I/Os, lytes and renal parameters closely and make further recommendations. (2) Acute post-hemorrhagic anemia Current Visit: Yes Status: Acute Plan to address problem: s/p 2PRBC transfusion, monitor serial CBC and follow GI recommendations (3) Sepsis Current Visit: Yes Status: Acute Qualifiers: Sepsis type: sepsis due to unspecified organism Qualified Code(s): A41.9 - Sepsis, unspecified organism Plan to address problem: on ABXs incl vanco, cefepime, dose for eGFR < 30mls/min (4) Respiratory failure Current Visit: Yes Status: Acute Plan to address problem: vent management as per ICU team (5) Acute encephalopathy Current Visit: Yes Status: Acute Plan to address problem: follow neuro recommendations (6) Pericardial effusion without cardiac tamponade Current Visit: Yes Status: Acute Plan to address problem: s/p ECHO, showing large pericardial effusion without tamponade pathology. (7) HTN (hypertension) Current Visit: Yes Status: Chronic Plan to address problem: BP stabilized now off vasopressors (8) T2DM (type 2 diabetes mellitus) Current Visit: Yes Status: Chronic Qualifiers: Diabetes mellitus shelter insulin use: unspecified long term care pharmacist insulin use [facility] Plan to address problem: glucose control as per primary attending (9) Acidosis Current Visit: Yes Status: Acute Plan to address problem: initially lactic acidosis, now more hyperchloremic met acidosis, cont 1/2 NS Subjective Date of service: 12/12/18 Principal diagnosis: coffee-ground drainage Interval history: Pt remains intubated, sedated. no UOP documented but renal function remains stable Objective - Vital Signs Vital signs: Vital Signs - 12hr 12/12/18 12/12/18 12/12/18 05:00 06:00 06:31 Temperature Pulse Rate 81 77 76 Pulse Rate [ Anterior Bilateral Throughout] Respiratory 15 17 Rate Respiratory Rate [Anterior Bilateral Throughout] Blood Pressure 134/65 136/60 135/59 O2 Sat by Pulse 100 100 Oximetry 12/12/18 12/12/18 12/12/18 07:00 07:29 08:00 Temperature 96.7 F L Pulse Rate 75 74 74 Pulse Rate [ 74 Anterior Bilateral Throughout] Respiratory 15 16 Rate Respiratory 19 Rate [Anterior Bilateral Throughout] Blood Pressure 141/62 141/62 148/61 O2 Sat by Pulse 100 100 100 Oximetry 12/12/18 12/12/18 12/12/18 09:00 10:00 11:00 Temperature Pulse Rate 74 71 69 Pulse Rate [ Anterior Bilateral Throughout] Respiratory 12 17 18 Rate Respiratory Rate [Anterior Bilateral Throughout] Blood Pressure 151/69 139/65 134/64 O2 Sat by Pulse 100 100 100 Oximetry 12/12/18 12/12/18 12/12/18 11:47 12:00 13:00 Temperature 96.6 F L Pulse Rate 69 69 66 Pulse Rate [ Anterior Bilateral Throughout] Respiratory 23 18 Rate Respiratory Rate [Anterior Bilateral Throughout] Blood Pressure 144/64 149/66 155/64 O2 Sat by Pulse 100 100 100 Oximetry 12/12/18 12/12/18 12/12/18 13:15 14:00 14:20 Temperature Pulse Rate 71 67 Pulse Rate [ 69 Anterior Bilateral Throughout] Respiratory 18 Rate Respiratory 18 Rate [Anterior Bilateral Throughout] Blood Pressure 153/62 147/67 O2 Sat by Pulse 100 Oximetry 12/12/18 14:43 Temperature Pulse Rate Pulse Rate [ 69 Anterior Bilateral Throughout] Respiratory Rate Respiratory 18 Rate [Anterior Bilateral Throughout] Blood Pressure O2 Sat by Pulse Oximetry - General Appearance General appearance: chronically ill, sedated on ventilator, intubated EENT: ATNC, PERRL, mucous membranes moist Neck: no JVD Respiratory: Present: Decreased Breath Sounds Cardiology: regular, S1S2 Gastrointestinal: normoactive bowel sounds Integumentary: no rash, other (no edema ) Neurologic: other (intubated, sedated ) - Lab 12/12/18 08:00 12/12/18 08:00 Most recent lab results Calcium 8.2 mg/dL (8.4-10.2) L 12/12/18 08:00 Medications & Allergies - Medications Allergies/Adverse Reactions: Allergies Penicillins Allergy (Verified 12/08/18 13:13) Hives Home Medications: Home Medications Medication Instructions Recorded Confirmed Last Taken Type ALBUTEROL Inhaler (OR & NICU) 2 puff IH QID PRN #1 inhalation 12/21/16 12/08/18 Unknown Rx [Proair] Albuterol Sulfate [Albuterol 0.63% 0.63 mg IH TID PRN #90 ml 12/21/16 12/08/18 Unknown Rx NEBS] Amlodipine Besylate [Norvasc] 10 mg PO DAILY #90 tablet 12/21/16 12/08/18 Unknown Rx AtorvaSTATin [Lipitor] 20 mg PO QHS #90 tablet 12/21/16 12/08/18 Unknown Rx Hydralazine HCl [Apresoline TAB] 50 mg PO TID #90 tablet 12/21/16 12/08/18 Unknown Rx Metoprolol [Lopressor TAB] 25 mg PO BID #90 tablet 12/21/16 12/08/18 Unknown Rx Promethazine /Codeine 5 ml PO Q6H PRN #100 ml 12/21/16 12/08/18 Unknown Rx [Phenergan/Codeine 6.25-10 mg/5 ml] Active Medications: Generic Name Dose Route Start Last Admin Trade Name Freq PRN Reason Stop Dose Admin Acetaminophen 650 mg 12/09/18 01:00 12/09/18 10:00 Tylenol DE 650 mg Q4H PRN Administration Pain MILD(1-3)/Fever >100.5/TURNER Albuterol 2.5 mg 12/09/18 00:31 Proventil IH Q4HRT PRN Shortness Of Breath Albuterol/Ipratropium 1 ampul 12/09/18 02:00 12/12/18 14:00 Duoneb *Not For Prn Use* IH 1 ampul Q6HRT KOLE Administration Lipase/Protease/Amylase 1 each 12/09/18 04:05 Shakir Pena 10,500 Unit FEEDTUBE PRN PRN For Clogged Feeding Tube Hydralazine HCl 50 mg 12/10/18 14:00 12/12/18 13:15 Apresoline PO 50 mg Q8HR KOLE Administration Hydrophilic Ointment 1 applic 12/08/18 13:31 Vaseline Lip Therapy TP Q2HR PRN Dry Lips Norepinephrine 4 mg in 250 mls @ 7.5 mls/hr 12/08/18 14:00 12/08/18 20:00 Levophed Drip 4 Mg/Ns 250 Ml IV 0 mcg/min TITR KOLE 0 mls/hr Titration Protocol 2 MCG/MIN Cefepime HCl 2 gm in 100 mls @ 200 mls/hr 12/09/18 10:00 12/12/18 09:13 Maxipime/Ns 2 Gm/100 Ml IV 200 mls/hr Q24HR KOLE Administration Protocol Sodium Chloride 1,000 mls @ 75 mls/hr 12/10/18 12:00 12/12/18 08:00 Nacl 0.45% 1000 Ml IV 75 mls/hr DIRECT KOLE Administration Insulin Human Lispro 0 unit 12/11/18 12:00 12/12/18 13:16 Humalog SUB-Q 3 unit Q6HR KOLE Administration Protocol Labetalol HCl 10 mg 12/09/18 16:18 12/10/18 09:14 Normodyne IV 10 mg Q4H PRN Administration Hypertension Lansoprazole 30 mg 12/12/18 10:00 12/12/18 09:14 Prevacid Solutab FEEDTUBE 30 mg BID KOLE Administration Multi-Ingred Cream/Lotion/Oil/Oint 1 applic 12/08/18 13:31 Artificial Tears Ophth Oint OU Q4HR PRN Dry Eye(s) Neomycin/Polymyxin/Hydrocortisone 4 drops 12/09/18 08:00 12/12/18 07:59 Cortisporin AU 4 drops TID KOLE Administration Ondansetron HCl 4 mg 12/09/18 00:31 Zofran IV Q8H PRN Nausea And Vomiting Simple Syrup 15 ml 12/09/18 04:05 Simple Syrup FEEDTUBE PRN PRN Hypoglycemia Simple Syrup 30 ml 12/09/18 04:05 Simple Syrup FEEDTUBE PRN PRN Hypoglycemia Sodium Bicarbonate 325 mg 12/09/18 04:05 Sodium Bicarbonate FEEDTUBE PRN PRN For Clogged Feeding Tube Sodium Chloride 10 ml 12/09/18 10:00 12/12/18 09:14 Sodium Chloride Flush Syringe 10 Ml IV 10 ml BID KOLE Administration Sodium Chloride 10 ml 12/09/18 00:31 Sodium Chloride Flush Syringe 10 Ml IV PRN PRN LINE FLUSH
--- NOTE | 2018-12-12 20:25 | XRay Report ---
PROCEDURE: PORTABLE CHEST TECHNIQUE: A portable AP chest radiograph was obtained at 12/12/2018 7:45 ANIMAL THERAPIST. CPT 09727 HISTORY: Intubation COMPARISONS: 12/11/2018. FINDINGS: Heart: Normal. Mediastinum/Vessels: Normal. Lungs/Pleural space: Normal. Bony thorax: No acute osseous abnormality. Life support devices: There is an endotracheal tube. The tip is 2.7 cm above the prashant. The NG tube is in the stomach. Pacemaker leads are in proper position.. IMPRESSION: No acute cardiopulmonary abnormality. There is an endotracheal tube. The tip is 2.7 cm above the prashant. The NG tube is in the stomach. Pacemaker leads are in proper position.. This document is electronically signed by Mina Schwartz MD., December 12 2018 08:23:00 PM ET
[2018-12-13] MEDS: HumaLOG SUB-Q SCH ×5 (00:07→23:24)
[2018-12-13] MEDS: DUONEB *Not for PRN Use IH SCH ×4 (02:57→19:54)
[2018-12-13 04:46] LABS: Hematocrit 31.8 % (30.3-42.9); Hemoglobin 10.4 gm/dl (10.1-14.3); Mean Corpuscular HGB Conc 33 % (30-34); Mean Corpuscular Volume 74 fl (79-97); Red Blood Count 4.32 M/mm3 (3.65-5.03)
[2018-12-13 04:47] LABS: Red Cell Distribution Width 21.8 % (13.2-15.2)
[2018-12-13 04:48] LABS: Platelet Count 34 K/mm3 (140-440)
--- NOTE | 2018-12-13 04:59 | XRay Report ---
PROCEDURE: XR CHEST 1V AP TECHNIQUE: AP portable chest radiograph HISTORY: follow up respiratory failure COMPARISONS: 12/12/2018 FINDINGS: Endotracheal tube terminates approximately 2 cm from the prashant. Enteric tube courses below the diaph ragm and off the inferior field of view. Right IJ line terminates in the SVC. Mild patient rotation. Left chest pacemaker. No mediastinal shift. Cardiac silhouette is unchanged. No pneumothorax or defin ite effusion. Ill-defined left basilar opacity. No acute skeletal findings. IMPRESSION: Satisfactory appearance of the patient's support apparatus without pneumothorax. An ill-defined left basilar opacity may be due to patient rotation/positioning, atelectasis, aspiration or infection. This document is electronically signed by Fabio Schwartz MD., December 13 2018 04:56:28 AM ET
[2018-12-13 05:08] LABS: Calcium 8.1 mg/dL (8.4-10.2)
[2018-12-13 05:29] LABS: Anisocytosis 1+; Basophils % (Manual) 0 % (0.0-1.8); Eosinophils % (Manual) 0 % (0.0-4.3); Hypochromasia 1+; Total Cells Counted 100
[2018-12-13 05:30] LABS: Crenated RBC Few; Ovalocytes 1+; Target Cells 2+; Tear Drop Cells Few
[2018-12-13 05:31] LABS: Platelet Estimate Appears Decreased; Schistocytes Rare
[2018-12-13] MEDS: APRESOLINE PO SCH ×3 (06:22→21:10)
--- NOTE | 2018-12-13 09:21 | Progress Note ---
Assessment and Plan Acute respiratory failure on ventilatory support Sepsis. Urinary tract infection origin versus mastoiditis/otitis. On ABX.No fever Question of atelectasis versus left lower lobe pneumonia. See chest x-ray report. Films reviewed personally, cannot evaluate cannot evaluate for any advantage the left base area Acute on chronic kidney injury AMS.Prior stoke,see head CT changes.Neuro comments noted Metabolic acidosis. Improved Recommendations Continue antibiotics Head MRI could not be done due to pacemaker PPI prophylaxis Nuttritional support Appreciate neuro and ID comments If no additional neurological improvement or being able to wean patient out; she will likely need tracheotomy at this point No family available for Discussion. Critical care time was 31 minutes of [id number] evaluation and coordination of care Subjective Date of service: 12/13/18 Principal diagnosis: respiratory failure, GI bleeding, ATN, AMS Interval history: Intubated Objective Vital Signs - 12hr 12/12/18 12/12/18 12/12/18 22:00 22:06 23:00 Temperature Pulse Rate 82 82 83 Pulse Rate [ Anterior Bilateral Throughout] Respiratory 17 14 Rate Respiratory Rate [Anterior Bilateral Throughout] Blood Pressure 153/63 153/63 137/62 O2 Sat by Pulse 100 100 Oximetry 12/12/18 12/13/18 12/13/18 23:30 00:00 01:00 Temperature 98.6 F Pulse Rate 81 82 Pulse Rate [ Anterior Bilateral Throughout] Respiratory 17 17 Rate Respiratory Rate [Anterior Bilateral Throughout] Blood Pressure 142/64 144/58 O2 Sat by Pulse 100 100 Oximetry 12/13/18 12/13/18 12/13/18 02:00 02:57 03:00 Temperature Pulse Rate 85 73 78 Pulse Rate [ 81 Anterior Bilateral Throughout] Respiratory 21 18 Rate Respiratory 18 Rate [Anterior Bilateral Throughout] Blood Pressure 154/70 145/70 145/58 O2 Sat by Pulse 100 100 100 Oximetry 12/13/18 12/13/18 12/13/18 03:05 03:14 04:00 Temperature 98.8 F Pulse Rate 76 Pulse Rate [ 83 Anterior Bilateral Throughout] Respiratory 16 Rate Respiratory 18 Rate [Anterior Bilateral Throughout] Blood Pressure 137/61 O2 Sat by Pulse 100 Oximetry 12/13/18 12/13/18 12/13/18 05:00 05:08 06:00 Temperature 92 F L Pulse Rate 72 73 Pulse Rate [ Anterior Bilateral Throughout] Respiratory 17 17 Rate Respiratory Rate [Anterior Bilateral Throughout] Blood Pressure 141/56 137/56 O2 Sat by Pulse 100 100 Oximetry 12/13/18 12/13/18 12/13/18 06:22 07:24 07:30 Temperature Pulse Rate 73 71 Pulse Rate [ 79 Anterior Bilateral Throughout] Respiratory Rate Respiratory 18 Rate [Anterior Bilateral Throughout] Blood Pressure 137/56 124/61 O2 Sat by Pulse 100 Oximetry 12/13/18 12/13/18 07:31 08:00 Temperature 97.4 F L Pulse Rate Pulse Rate [ 70 Anterior Bilateral Throughout] Respiratory Rate Respiratory 18 Rate [Anterior Bilateral Throughout] Blood Pressure O2 Sat by Pulse Oximetry Constitutional: no acute distress, lethargic Eyes: non-icteric ENT: other (ETT in position) Neck: supple, no JVD, other (right left IJ lines in place) Ascultation: Bilateral: clear, diminished breath sounds Cardiovascular: regular rate and rhythm, other (pacemaker rhythm) Gastrointestinal: normoactive bowel sounds, non-distended Integumentary: normal Extremities: no cyanosis, no edema, pink and warm Neurologic: pupils equal and round, other (Limited examination, basic responds when physically stimulated) CBC and BMP: 12/13/18 04:28 12/13/18 04:28 ABG, PT/INR, D-dimer: ABG POC ABG pH 7.327 (7.35-7.45) L 12/13/18 04:45 POC ABG pCO2 31.1 (35-45) L 12/13/18 04:45 POC ABG pO2 136 (80-105) H 12/13/18 04:45 POC ABG HCO3 16.3 12/13/18 04:45 POC ABG Total CO2 17 12/13/18 04:45 POC ABG O2 Sat 99 12/13/18 04:45 PT/INR, D-dimer PT 20.2 Sec. (12.2-14.9) H 12/12/18 08:00 INR 1.61 (0.87-1.13) H 12/12/18 08:00 Abnormal lab findings: Abnormal Labs 12/08/18 12/08/18 12/08/18 12:58 13:40 13:40 WBC RBC Hgb Hct MCV MCH RDW Plt Count Lymph % (Auto) Lymph # Seg Neutrophils % Seg Neuts % (Manual) Lymphocytes % (Manual) Nucleated RBC % Seg Neutrophils # Seg Neutrophils # Man Lymphocytes # (Manual) PT INR POC ABG pH POC ABG pCO2 POC ABG pO2 Potassium Chloride Carbon Dioxide BUN Creatinine Glucose POC Glucose 143 H Lactic Acid Calcium Total Bilirubin AST Total Creatine Kinase C-Reactive Protein Total Protein Albumin TSH Free T4 Urine WBC (Auto) 157.0 H Crossmatch See Detail 12/08/18 12/08/18 12/08/18 13:40 13:40 13:40 WBC RBC 3.06 L Hgb 6.8 L Hct 21.1 L MCV 69 L MCH 22 L RDW 16.2 H Plt Count 56 L Lymph % (Auto) Lymph # Seg Neutrophils % Seg Neuts % (Manual) Lymphocytes % (Manual) 2.0 L Nucleated RBC % Seg Neutrophils # Seg Neutrophils # Man Lymphocytes # (Manual) 0.2 L PT INR POC ABG pH POC ABG pCO2 POC ABG pO2 Potassium 3.2 L Chloride Carbon Dioxide 18 L BUN 64 H Creatinine 1.5 H Glucose 145 H POC Glucose Lactic Acid 4.00 H* Calcium 7.7 L Total Bilirubin AST Total Creatine Kinase 258 H C-Reactive Protein Total Protein 4.6 L Albumin 1.8 L TSH Free T4 Urine WBC (Auto) Crossmatch 12/08/18 12/08/18 12/08/18 14:29 15:21 16:06 WBC RBC Hgb Hct MCV MCH RDW Plt Count Lymph % (Auto) Lymph # Seg Neutrophils % Seg Neuts % (Manual) Lymphocytes % (Manual) Nucleated RBC % Seg Neutrophils # Seg Neutrophils # Man Lymphocytes # (Manual) PT 20.5 H INR 1.64 H POC ABG pH POC ABG pCO2 34.2 L POC ABG pO2 465 H Potassium Chloride Carbon Dioxide BUN Creatinine Glucose POC Glucose Lactic Acid 3.00 H* Calcium Total Bilirubin AST Total Creatine Kinase C-Reactive Protein Total Protein Albumin TSH Free T4 Urine WBC (Auto) Crossmatch 12/09/18 12/09/18 12/09/18 02:31 05:36 05:36 WBC 14.5 H RBC Hgb Hct MCV 75 L MCH 25 L RDW 20.4 H Plt Count 68 L Lymph % (Auto) Lymph # Seg Neutrophils % Seg Neuts % (Manual) 81.0 H Lymphocytes % (Manual) 1.0 L Nucleated RBC % Seg Neutrophils # Seg Neutrophils # Man 11.7 H Lymphocytes # (Manual) 0.1 L PT INR POC ABG pH POC ABG pCO2 POC ABG pO2 Potassium Chloride 107.6 H Carbon Dioxide 18 L BUN 75 H Creatinine 1.9 H Glucose 136 H POC Glucose 152 H Lactic Acid Calcium 7.9 L Total Bilirubin 1.60 H AST 44 H Total Creatine Kinase C-Reactive Protein Total Protein 5.2 L Albumin 2.4 L TSH Free T4 Urine WBC (Auto) Crossmatch 12/09/18 12/09/18 12/09/18 05:43 10:47 13:46 WBC RBC Hgb Hct MCV MCH RDW Plt Count Lymph % (Auto) Lymph # Seg Neutrophils % Seg Neuts % (Manual) Lymphocytes % (Manual) Nucleated RBC % Seg Neutrophils # Seg Neutrophils # Man Lymphocytes # (Manual) PT INR POC ABG pH 7.308 L POC ABG pCO2 POC ABG pO2 183 H Potassium Chloride Carbon Dioxide BUN Creatinine Glucose POC Glucose 150 H 162 H Lactic Acid Calcium Total Bilirubin AST Total Creatine Kinase C-Reactive Protein Total Protein Albumin TSH Free T4 Urine WBC (Auto) Crossmatch 12/09/18 12/09/18 12/09/18 15:54 15:54 16:40 WBC RBC Hgb Hct MCV MCH RDW Plt Count Lymph % (Auto) Lymph # Seg Neutrophils % Seg Neuts % (Manual) Lymphocytes % (Manual) Nucleated RBC % Seg Neutrophils # Seg Neutrophils # Man Lymphocytes # (Manual) PT INR POC ABG pH POC ABG pCO2 POC ABG pO2 Potassium Chloride Carbon Dioxide BUN Creatinine Glucose POC Glucose 197 H Lactic Acid Calcium Total Bilirubin AST Total Creatine Kinase C-Reactive Protein Total Protein Albumin TSH 0.268 L Free T4 0.58 L Urine WBC (Auto) Crossmatch 12/09/18 12/09/18 12/09/18 18:18 18:18 21:51 WBC RBC Hgb Hct MCV MCH RDW Plt Count Lymph % (Auto) Lymph # Seg Neutrophils % Seg Neuts % (Manual) Lymphocytes % (Manual) Nucleated RBC % Seg Neutrophils # Seg Neutrophils # Man Lymphocytes # (Manual) PT INR POC ABG pH POC ABG pCO2 POC ABG pO2 Potassium Chloride 108.2 H Carbon Dioxide 16 L BUN 89 H Creatinine 2.3 H Glucose 180 H POC Glucose 198 H Lactic Acid Calcium 7.9 L Total Bilirubin AST Total Creatine Kinase C-Reactive Protein 19.60 H Total Protein Albumin TSH Free T4 Urine WBC (Auto) Crossmatch 0312/10/18 12/10/18 01:59 04:14 04:38 WBC 11.5 H RBC Hgb Hct MCV 75 L MCH 25 L RDW 21.1 H Plt Count 81 L Lymph % (Auto) 5.6 L Lymph # 0.6 L Seg Neutrophils % 89.8 H Seg Neuts % (Manual) Lymphocytes % (Manual) Nucleated RBC % Seg Neutrophils # 10.3 H Seg Neutrophils # Man Lymphocytes # (Manual) PT INR POC ABG pH 7.273 L POC ABG pCO2 32.1 L POC ABG pO2 161 H Potassium Chloride Carbon Dioxide BUN Creatinine Glucose POC Glucose 219 H Lactic Acid Calcium Total Bilirubin AST Total Creatine Kinase C-Reactive Protein Total Protein Albumin TSH Free T4 Urine WBC (Auto) Crossmatch 12/10/18 12/10/18 12/10/18 04:38 05:07 07:26 WBC RBC Hgb Hct MCV MCH RDW Plt Count Lymph % (Auto) Lymph # Seg Neutrophils % Seg Neuts % (Manual) Lymphocytes % (Manual) Nucleated RBC % Seg Neutrophils # Seg Neutrophils # Man Lymphocytes # (Manual) PT INR POC ABG pH POC ABG pCO2 POC ABG pO2 Potassium Chloride 112.5 H Carbon Dioxide 14 L BUN 94 H Creatinine 2.4 H Glucose 207 H POC Glucose 221 H 212 H Lactic Acid Calcium 7.7 L Total Bilirubin AST Total Creatine Kinase C-Reactive Protein Total Protein Albumin TSH Free T4 Urine WBC (Auto) Crossmatch 12/10/18 12/10/18 12/10/18 10:40 11:15 14:21 WBC RBC Hgb Hct MCV MCH RDW Plt Count Lymph % (Auto) Lymph # Seg Neutrophils % Seg Neuts % (Manual) Lymphocytes % (Manual) Nucleated RBC % Seg Neutrophils # Seg Neutrophils # Man Lymphocytes # (Manual) PT 21.4 H INR 1.73 H POC ABG pH 7.214 L POC ABG pCO2 32.8 L POC ABG pO2 Potassium Chloride Carbon Dioxide BUN Creatinine Glucose POC Glucose 227 H Lactic Acid Calcium Total Bilirubin AST Total Creatine Kinase C-Reactive Protein Total Protein Albumin TSH Free T4 Urine WBC (Auto) Crossmatch 12/10/18 12/10/18 12/11/18 15:47 22:38 03:36 WBC RBC Hgb Hct MCV MCH RDW Plt Count Lymph % (Auto) Lymph # Seg Neutrophils % Seg Neuts % (Manual) Lymphocytes % (Manual) Nucleated RBC % Seg Neutrophils # Seg Neutrophils # Man Lymphocytes # (Manual) PT INR POC ABG pH POC ABG pCO2 26.2 L POC ABG pO2 138 H Potassium Chloride Carbon Dioxide BUN Creatinine Glucose POC Glucose 202 H 259 H Lactic Acid Calcium Total Bilirubin AST Total Creatine Kinase C-Reactive Protein Total Protein Albumin TSH Free T4 Urine WBC (Auto) Crossmatch 12/11/18 12/11/18 12/11/18 04:12 05:00 06:19 WBC RBC Hgb Hct MCV MCH RDW Plt Count Lymph % (Auto) Lymph # Seg Neutrophils % Seg Neuts % (Manual) Lymphocytes % (Manual) Nucleated RBC % Seg Neutrophils # Seg Neutrophils # Man Lymphocytes # (Manual) PT 19.5 H INR 1.54 H POC ABG pH POC ABG pCO2 24.6 L POC ABG pO2 119 H Potassium Chloride Carbon Dioxide BUN Creatinine Glucose POC Glucose 174 H Lactic Acid Calcium Total Bilirubin AST Total Creatine Kinase C-Reactive Protein Total Protein Albumin TSH Free T4 Urine WBC (Auto) Crossmatch 12/11/18 12/11/18 12/11/18 11:10 11:10 18:10 WBC 14.3 H RBC Hgb Hct MCV 73 L MCH 24 L RDW 21.5 H Plt Count Lymph % (Auto) Lymph # Seg Neutrophils % Seg Neuts % (Manual) Lymphocytes % (Manual) Nucleated RBC % Seg Neutrophils # Seg Neutrophils # Man Lymphocytes # (Manual) PT INR POC ABG pH POC ABG pCO2 POC ABG pO2 Potassium Chloride 110.5 H Carbon Dioxide 15 L BUN 101 H Creatinine 2.4 H Glucose 119 H POC Glucose 147 H Lactic Acid Calcium 7.7 L Total Bilirubin AST Total Creatine Kinase C-Reactive Protein Total Protein Albumin TSH Free T4 Urine WBC (Auto) Crossmatch 12/11/18 12/12/18 12/12/18 23:25 05:37 06:03 WBC RBC Hgb Hct MCV MCH RDW Plt Count Lymph % (Auto) Lymph # Seg Neutrophils % Seg Neuts % (Manual) Lymphocytes % (Manual) Nucleated RBC % Seg Neutrophils # Seg Neutrophils # Man Lymphocytes # (Manual) PT INR POC ABG pH 7.346 L POC ABG pCO2 28.3 L POC ABG pO2 120 H Potassium Chloride Carbon Dioxide BUN Creatinine Glucose POC Glucose 143 H 154 H Lactic Acid Calcium Total Bilirubin AST Total Creatine Kinase C-Reactive Protein Total Protein Albumin TSH Free T4 Urine WBC (Auto) Crossmatch 12/12/18 12/12/18 12/12/18 08:00 08:00 08:00 WBC 16.2 H RBC Hgb Hct MCV 74 L MCH 25 L RDW 21.9 H Plt Count 21 L Lymph % (Auto) Lymph # Seg Neutrophils % Seg Neuts % (Manual) Lymphocytes % (Manual) Nucleated RBC % Seg Neutrophils # Seg Neutrophils # Man Lymphocytes # (Manual) PT 20.2 H INR 1.61 H POC ABG pH POC ABG pCO2 POC ABG pO2 Potassium Chloride 107.4 H Carbon Dioxide 16 L BUN 101 H Creatinine 2.3 H Glucose 169 H POC Glucose Lactic Acid Calcium 8.2 L Total Bilirubin AST Total Creatine Kinase C-Reactive Protein Total Protein Albumin TSH Free T4 Urine WBC (Auto) Crossmatch 12/12/18 12/12/18 12/13/18 12:59 18:01 04:28 WBC 18.6 H RBC Hgb Hct MCV 74 L MCH 24 L RDW 21.8 H Plt Count 34 L Lymph % (Auto) Lymph # Seg Neutrophils % Seg Neuts % (Manual) 97.0 H Lymphocytes % (Manual) 2.0 L Nucleated RBC % 1.0 H Seg Neutrophils # Seg Neutrophils # Man 18.0 H Lymphocytes # (Manual) 0.4 L PT INR POC ABG pH POC ABG pCO2 POC ABG pO2 Potassium Chloride Carbon Dioxide BUN Creatinine Glucose POC Glucose 158 H 123 H Lactic Acid Calcium Total Bilirubin AST Total Creatine Kinase C-Reactive Protein Total Protein Albumin TSH Free T4 Urine WBC (Auto) Crossmatch 12/13/18 12/13/18 04:28 04:45 WBC RBC Hgb Hct MCV MCH RDW Plt Count Lymph % (Auto) Lymph # Seg Neutrophils % Seg Neuts % (Manual) Lymphocytes % (Manual) Nucleated RBC % Seg Neutrophils # Seg Neutrophils # Man Lymphocytes # (Manual) PT INR POC ABG pH 7.327 L POC ABG pCO2 31.1 L POC ABG pO2 136 H Potassium Chloride 112.0 H Carbon Dioxide 17 L BUN 97 H Creatinine 2.2 H Glucose POC Glucose Lactic Acid Calcium 8.1 L Total Bilirubin AST Total Creatine Kinase C-Reactive Protein Total Protein Albumin TSH Free T4 Urine WBC (Auto) Crossmatch Chest x-ray: report reviewed, image reviewed
[2018-12-13] MEDS: CORTISPORIN AU SCH ×3 (10:25→21:00)
[2018-12-13] MEDS: PREVACID SOLUTAB FEEDTUBE SCH ×2 (10:28→21:10)
[2018-12-13] MEDS: MAXIPIME/NS 2 GM/100 ML 2 GM/100 ML BAG IV SCH (10:28)
--- NOTE | 2018-12-13 10:54 | Progress Note ---
Assessment and Plan - Patient Problems (1) Acute kidney failure with tubular necrosis Current Visit: Yes Status: Acute Plan to address problem: suspect acute tubular necrosis in the setting of sepsis and hemorrhagic anemia leading to hypotension. possible GI bleed contributing to rising BUN. Unclear whether large pericardial effusion is acute or chronic, uremic pericarditis cannot be ruled out. eGFR stabilizing, no emergent indication for HD at present. For now will continue supportive care, cont IVF with 1/2 NS given presence of hyperchloremic met acidosis, maintain MAP > 65mmhg, avoid nephrotoxins, NSAIDs, IV contrasts. will monitor I/Os, lytes and renal parameters closely and make further recommendations. (2) Acute post-hemorrhagic anemia Current Visit: Yes Status: Acute Plan to address problem: s/p 2PRBC transfusion, monitor serial CBC and follow GI recommendations (3) Sepsis Current Visit: Yes Status: Acute Qualifiers: Sepsis type: sepsis due to unspecified organism Qualified Code(s): A41.9 - Sepsis, unspecified organism Plan to address problem: on ABXs incl vanco, cefepime, dose for eGFR < 30mls/min (4) Respiratory failure Current Visit: Yes Status: Acute Plan to address problem: vent management as per ICU team (5) Acute encephalopathy Current Visit: Yes Status: Acute Plan to address problem: follow neuro recommendations (6) Pericardial effusion without cardiac tamponade Current Visit: Yes Status: Acute Plan to address problem: s/p ECHO, showing large pericardial effusion without tamponade pathology. (7) HTN (hypertension) Current Visit: Yes Status: Chronic Plan to address problem: BP stabilized now off vasopressors (8) T2DM (type 2 diabetes mellitus) Current Visit: Yes Status: Chronic Qualifiers: Diabetes mellitus longterm insulin use: unspecified lobsterman insulin use st atus Plan to address problem: glucose control as per primary attending (9) Acidosis Current Visit: Yes Status: Acute Plan to address problem: initially lactic acidosis, now more hyperchloremic met acidosis, cont 1/2 NS Subjective Date of service: 12/13/18 Principal diagnosis: respiratory failure, GI bleeding, ATN, AMS Interval history: Pt remains intubated, off vasopressors, off sedation, pt remains unresponsive. EEG being performed this AM Objective - Vital Signs Vital signs: Vital Signs - 12hr 12/12/18 12/12/18 12/13/18 23:00 23:30 00:00 Temperature 98.6 F Pulse Rate 83 81 Pulse Rate [ Anterior Bilateral Throughout] Respiratory 14 17 Rate Respiratory Rate [Anterior Bilateral Throughout] Blood Pressure 137/62 142/64 O2 Sat by Pulse 100 100 Oximetry 12/13/18 12/13/18 12/13/18 01:00 02:00 02:57 Temperature Pulse Rate 82 85 73 Pulse Rate [ 81 Anterior Bilateral Throughout] Respiratory 17 21 Rate Respiratory 18 Rate [Anterior Bilateral Throughout] Blood Pressure 144/58 154/70 145/70 O2 Sat by Pulse 100 100 100 Oximetry 12/13/18 12/13/18 12/13/18 03:00 03:05 03:14 Temperature 98.8 F Pulse Rate 78 Pulse Rate [ 83 Anterior Bilateral Throughout] Respiratory 18 Rate Respiratory 18 Rate [Anterior Bilateral Throughout] Blood Pressure 145/58 O2 Sat by Pulse 100 Oximetry 12/13/18 12/13/18 12/13/18 04:00 05:00 05:08 Temperature 92 F L Pulse Rate 76 72 Pulse Rate [ Anterior Bilateral Throughout] Respiratory 16 17 Rate Respiratory Rate [Anterior Bilateral Throughout] Blood Pressure 137/61 141/56 O2 Sat by Pulse 100 100 Oximetry 12/13/18 12/13/18 12/13/18 06:00 06:22 07:00 Temperature Pulse Rate 73 73 73 Pulse Rate [ Anterior Bilateral Throughout] Respiratory 17 17 Rate Respiratory Rate [Anterior Bilateral Throughout] Blood Pressure 137/56 137/56 124/61 O2 Sat by Pulse 100 100 Oximetry 12/13/18 12/13/18 12/13/18 07:24 07:30 07:31 Temperature Pulse Rate 71 Pulse Rate [ 79 70 Anterior Bilateral Throughout] Respiratory Rate Respiratory 18 18 Rate [Anterior Bilateral Throughout] Blood Pressure 124/61 O2 Sat by Pulse 100 Oximetry 12/13/18 12/13/18 12/13/18 08:00 09:00 10:00 Temperature 97.4 F L Pulse Rate 73 72 74 Pulse Rate [ Anterior Bilateral Throughout] Respiratory 18 17 17 Rate Respiratory Rate [Anterior Bilateral Throughout] Blood Pressure 142/52 135/54 133/52 O2 Sat by Pulse 100 100 100 Oximetry - General Appearance General appearance: appears stated age, chronically ill, intubated, comatose EENT: ATNC, mucous membranes moist Neck: no JVD Respiratory: Present: Decreased Breath Sounds Cardiology: regular, S1S2 Gastrointestinal: normoactive bowel sounds Integumentary: no rash, other (no edema ) Neurologic: obtunded, other (on vent ) - Lab 12/13/18 04:28 12/13/18 04:28 Most recent lab results Calcium 8.1 mg/dL (8.4-10.2) L 12/13/18 04:28 Medications & Allergies - Medications Allergies/Adverse Reactions: Allergies Penicillins Allergy (Verified 12/08/18 13:13) Hives Home Medications: Home Medications Medication Instructions Recorded Confirmed Last Taken Type ALBUTEROL Inhaler (OR & NICU) 2 puff IH QID PRN #1 inhalation 12/21/16 12/08/18 Unknown Rx [Proair] Albuterol Sulfate [Albuterol 0.63% 0.63 mg IH TID PRN #90 ml 12/21/16 12/08/18 Unknown Rx NEBS] Amlodipine Besylate [Norvasc] 10 mg PO DAILY #90 tablet 12/21/16 12/08/18 Unknown Rx AtorvaSTATin [Lipitor] 20 mg PO QHS #90 tablet 12/21/16 12/08/18 Unknown Rx Hydralazine HCl [Apresoline TAB] 50 mg PO TID #90 tablet 12/21/16 12/08/18 Unknown Rx Metoprolol [Lopressor TAB] 25 mg PO BID #90 tablet 12/21/16 12/08/18 Unknown Rx Promethazine /Codeine 5 ml PO Q6H PRN #100 ml 12/21/16 12/08/18 Unknown Rx [Phenergan/Codeine 6.25-10 mg/5 ml] Active Medications: Generic Name Dose Route Start Last Admin Trade Name Moq PRN Reason Stop Dose Admin Acetaminophen 650 mg 12/09/18 01:00 12/09/18 10:00 Tylenol CA 650 mg Q4H PRN Administration Pain MILD(1-3)/Fever >100.5/TURNER Albuterol 2.5 mg 12/09/18 00:31 Proventil IH Q4HRT PRN Shortness Of Breath Albuterol/Ipratropium 1 ampul 12/09/18 02:00 12/13/18 07:20 Duoneb *Not For Prn Use* IH 1 ampul Q6HRT KOLE Administration Lipase/Protease/Amylase 1 each 12/09/18 04:[address] 10,500 Unit FEEDTUBE PRN PRN For Clogged Feeding Tube Hydralazine HCl 50 mg 12/10/18 14:00 12/13/18 06:22 Apresoline PO 50 mg Q8HR KOLE Administration Hydrophilic Ointment 1 applic 12/08/18 13:31 Vaseline Lip Therapy TP Q2HR PRN Dry Lips Norepinephrine 4 mg in 250 mls @ 7.5 mls/hr 12/08/18 14:00 12/08/18 20:00 Levophed Drip 4 Mg/Ns 250 Ml IV 0 mcg/min TITR KOLE 0 mls/hr Titration Protocol 2 MCG/MIN Cefepime HCl 2 gm in 100 mls @ 200 mls/hr 12/09/18 10:00 12/13/18 10:28 Maxipime/Ns 2 Gm/100 Ml IV 200 mls/hr Q24HR KOLE Administration Protocol Sodium Chloride 1,000 mls @ 75 mls/hr 12/10/18 12:00 12/12/18 08:00 Nacl 0.45% 1000 Ml IV 75 mls/hr DIRECT KOLE Administration Insulin Human Lispro 0 unit 12/11/18 12:00 12/13/18 06:23 Humalog SUB-Q Not Given Q6HR [facility] Protocol Labetalol HCl 10 mg 12/09/18 16:18 12/10/18 09:14 Normodyne IV 10 mg Q4H PRN Administration Hypertension Lansoprazole 30 mg 12/12/18 10:00 12/13/18 10:28 Prevacid Solutab FEEDTUBE 30 mg BID KOLE Administration Multi-Ingred Cream/Lotion/Oil/Oint 1 applic 12/08/18 13:31 Artificial Tears Ophth Oint OU Q4HR PRN Dry Eye(s) Neomycin/Polymyxin/Hydrocortisone 4 drops 12/09/18 08:00 12/13/18 10:25 Cortisporin AU 4 drops TID KOLE Administration Ondansetron HCl 4 mg 12/09/18 00:31 Zofran IV Q8H PRN Nausea And Vomiting Simple Syrup 15 ml 12/09/18 04:05 Simple Syrup FEEDTUBE PRN PRN Hypoglycemia Simple Syrup 30 ml 12/09/18 04:05 Simple Syrup FEEDTUBE PRN PRN Hypoglycemia Sodium Bicarbonate 325 mg 12/09/18 04:05 Sodium Bicarbonate FEEDTUBE PRN PRN For Clogged Feeding Tube Sodium Chloride 10 ml 12/09/18 10:00 12/12/18 22:06 Sodium Chloride Flush Syringe 10 Ml IV 10 ml BID KOLE Administration Sodium Chloride 10 ml 12/09/18 00:31 Sodium Chloride Flush Syringe 10 Ml IV PRN PRN LINE FLUSH
--- NOTE | 2018-12-13 11:23 | Progress Note ---
Assessment and Plan Cultures: Blood culture 12/08/2018 no growth so far. 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 - Blood culture 12/08/2018 no growth so far. -Lactate 4 - CXR no consolidation. 2) UTI: UA wbc 157, LE mod, on cefepime 3) Right otitis media / mastoiditis: Per grand-daughter, she has been c/o right ear pain and drainage last week. Patient was putting Neosporin and perhaps ear stephanie in the patient's ear. On physical exam, patient found to have purulent discharge from the right ear, and stephanie were removed by ED physician. There was probable perforation of the right sided tympanic membrane per ED physician. Got dexametasone. Now on cefepime and vanco 4) Acute encephalopathy: not better, from sepsis alone versus meningitis versus CVA. CT head extensive right MCA encephalomalcia, right mastoid opacities. 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 5) Acute respiratory failure: CXR showed small left pleural effusion. CT chest showed large pericardial effusion, LLL atelectasis v/s infiltrate and left pleural effusion. 6) ?GI bleed 7) Severe anemia: ? Noted coffee-ground drainage from OG tube. 8) Severe thrombocytopenia: from sepsis 9) Large pericardial effusion: TTE EF>50, no echo evidence of tamponade 10) Penicillin allergy: tolerating cefepime 11) CKD: renally adjusted antibiotics Recommendations: - obtain right ear culture - pending - when stable LP for CSF cell count, diff, protein, glucose, culture, Gram stain, VDRL, HSV and Crypto ag, LP ordered - continue cefepime, vancomycin renally adjusted for now - neuro on board considering more ischemic disease - will add Flagyl due to increasing WBC to cover for possible aspiration - overall poor prognosis Ny Donnelly MD [facility] C: [phone] O: [phone] F: [phone] Subjective Date of service: 12/13/18 Principal diagnosis: respiratory failure, GI bleeding, ATN, AMS Interval history: Remains on the vent. Afebrile. Hemodynamically stable. Objective - Exam Narrative Exam: Physical Exam: Constitutional: sedated, intubated Head, Ears, Nose: Normocephalic, atraumatic. nose normal Eyes: Conjunctivae/corneas clear. No icterus. No ptosis. Neck: Supple, no meningeal signs Oral: intubated Cardiovascular: S1, S2 normal. Respiratory: Good air entry, clear to auscultation bilaterally GI: Soft, non-tender; bowel sounds normal. No peritoneal signs Musculoskeletal: No pedal edema, no cyanosis. Skin: No rash or abscess Hem/Lymphatic: No palpable cervical or supraclavicular nodes. No lymphangitis Psych: no agitation Neurological: sedated, intubated, on vent - Constitutional Vitals: Vital Signs Temp Pulse Resp BP Pulse Ox 97.4 F L 73 17 143/58 100 12/13/18 08:00 12/13/18 11:00 12/13/18 11:00 12/13/18 11:00 12/13/18 11:00 Temperature -Last 24 Hours Temperature 97.4 F Temperature 92 F Temperature 98.8 F Temperature 98.6 F Temperature 97.8 F Temperature 91.2 F Temperature 91.2 F Temperature 96.6 F - Labs CBC & Chem 7: 12/13/18 04:28 12/13/18 04:28 Labs: Abnormal lab results 12/12/18 12/12/18 12/13/18 Range/Units 12:59 18:01 04:28 WBC 18.6 H (4.5-11.0) K/mm3 MCV 74 L (79-97) fl MCH 24 L (28-32) pg RDW 21.8 H (13.2-15.2) % Plt Count 34 L (140-440) K/mm3 Seg Neuts % (Manual) 97.0 H (40.0-70.0) % Lymphocytes % (Manual) 2.0 L (13.4-35.0) % Nucleated RBC % 1.0 H (0.0-0.9) % Seg Neutrophils # Man 18.0 H (1.8-7.7) K/mm3 Lymphocytes # (Manual) 0.4 L (1.2-5.4) K/mm3 POC ABG pH (7.35-7.45) POC ABG pCO2 (35-45) POC ABG pO2 (80-105) Chloride (98-107) mmol/L Carbon Dioxide (22-30) mmol/L BUN (7-17) mg/dL Creatinine (0.7-1.2) mg/dL POC Glucose 158 H 123 H (70-105) Calcium (8.4-10.2) mg/dL 12/13/18 12/13/18 Range/Units 04:28 04:45 WBC (4.5-11.0) K/mm3 MCV (79-97) fl MCH (28-32) pg RDW (13.2-15.2) % Plt Count (140-440) K/mm3 Seg Neuts % (Manual) (40.0-70.0) % Lymphocytes % (Manual) (13.4-35.0) % Nucleated RBC % (0.0-0.9) % Seg Neutrophils # Man (1.8-7.7) K/mm3 Lymphocytes # (Manual) (1.2-5.4) K/mm3 POC ABG pH 7.327 L (7.35-7.45) POC ABG pCO2 31.1 L (35-45) POC ABG pO2 136 H (80-105) Chloride 112.0 H (98-107) mmol/L Carbon Dioxide 17 L (22-30) mmol/L BUN 97 H (7-17) mg/dL Creatinine 2.2 H (0.7-1.2) mg/dL POC Glucose (70-105) Calcium 8.1 L (8.4-10.2) mg/dL - Imaging and cardiology Chest x-ray: report reviewed, image reviewed (Pacemaker in place. ?left base opacity, atelectasis v/s pneumonia)
--- NOTE | 2018-12-13 11:32 | Progress Note ---
Assessment and Plan Cont supportive measures. Cont PRN IV labetalol and plan to convert to PO once enteral intake is resumed. Pt has large pericardial effusion, suspect uremic pericarditis. No evidence of tamponade. No plans for pericardiocentesis at this time. The patient has been seen in conjunction with Dr. Bonilla who agrees with the assessment and plan of care. - Patient Problems (1) Pericardial effusion Current Visit: Yes Status: Acute (2) Acute respiratory failure with hypoxia Current Visit: Yes Status: Acute (3) Sepsis Current Visit: Yes Status: Acute Qualifiers: Sepsis type: sepsis due to unspecified organism Qualified Code(s): A41.9 - Sepsis, unspecified organism (4) UTI (urinary tract infection) Current Visit: Yes Status: Acute (5) Altered mental status Current Visit: Yes Status: Acute (6) GI bleed Current Visit: Yes Status: Acute (7) History of CVA (cerebrovascular accident) Current Visit: Yes Status: Chronic (8) HLD (hyperlipidemia) Current Visit: Yes Status: Chronic Qualifiers: Hyperlipidemia type: mixed hyperlipidemia Qualified Code(s): E78.2 - Mixed hyperlipidemia (9) HTN (hypertension) Current Visit: Yes Status: Chronic (10) T2DM (type 2 diabetes mellitus) Current Visit: Yes Status: Chronic Qualifiers: Diabetes mellitus residential insulin use: unspecified intermediate card tender insulin use status (11) MARYANN (acute kidney injury) Current Visit: Yes Status: Acute Subjective Date of service: 12/13/18 Principal diagnosis: respiratory failure, GI bleeding, ATN, AMS Interval history: pt remains intubated, unresponsive. no family members at bedside. Objective Last Vital Signs Temp 97.4 F L 12/13/18 08:00 Pulse 73 12/13/18 11:00 Resp 17 12/13/18 11:00 BP 143/58 12/13/18 11:00 Pulse Ox 100 12/13/18 11:00 - Physical Examination General: Other (intubated, nonresponsive ) Neck: Positive: neck supple Cardiac: Positive: Reg Rate and Rhythm, S1/S2 Lungs: Positive: Ventilated Respirations Neuro: Positive: Other (intubated, nonresponsive) - Labs and Meds CBC 12/13/18 Range/Units 04:28 WBC 18.6 H (4.5-11.0) K/mm3 RBC 4.32 (3.65-5.03) M/mm3 Hgb 10.4 (10.1-14.3) gm/dl Hct 31.8 (30.3-42.9) % Plt Count 34 L (140-440) K/mm3 Comprehensive Metabolic Panel 12/13/18 Range/Units 04:28 Sodium 142 (137-145) mmol/L Potassium 3.7 (3.6-5.0) mmol/L Chloride 112.0 H (98-107) mmol/L Carbon Dioxide 17 L (22-30) mmol/L BUN 97 H (7-17) mg/dL Creatinine 2.2 H (0.7-1.2) mg/dL Glucose 90 (65-100) mg/dL Calcium 8.1 L (8.4-10.2) mg/dL
[2018-12-13] MEDS: SODIUM CHLORIDE FLUSH SYRINGE 10 ML IV SCH ×2 (11:54→21:12)
[2018-12-13] MEDS: NACL 0.45% 1000 ML 1,000 ML IV SCH (14:02)
[2018-12-13] MEDS: FLAGYL 500 MG/100 ML 500 MG/100 ML BAG IV SCH ×2 (14:03→21:11)
--- NOTE | 2018-12-13 15:01 | Progress Note ---
Assessment and Plan /Acute respiratory failure, intubated Likely from underlying severe sepsis and pleural effusion? Mba Intern/Pulm consulted Continue nebs, continue antibiotics Wean off vent support as tolerated CXR showed small left pleural effusion. CT chest showed large pericardial effusion, LLL atelectasis v/s infiltrate and left pleural effusion. /Acute encephalopathy: likely from sepsis alone versus possible meningitis vs seizure. CT head extensive right MCA encephalomalcia, right mastoid opacities. neurology ordered EEG. 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 - when stable need LP for CSF cell count, diff, protein, glucose, culture, Gram stain, VDRL, HSV and Crypto ag, LP ordered by ID - continue cefepime, vancomycin renally adjusted for now /Sepsis likely due to UTI , right mastoiditis, aspiration PNA Blood cultures negative, right ear Cx pending Started on Cefepime, vanco Now added flagyl for possible aspiration PNA /Hypotension/septic shock, resolved weaned off Levophed, BP now stable /Left lower lobe infiltrate, poss pneumonia - Treat with antibiotic for now /Large Pericardial effusion. TTE EF>50, no echo evidence of tamponade. cardiology consulted and recommended medical management for now /Coffee ground contents from NG aspirate/ Acute GI bleed cont Protonix, Consulted GI- H/h was 6.8 on admission but now stable after 2 units of PRBc transfusion cont to Monitor H/H, no plan for EGD now /MARYANN on CKD 3 baseline Cr around 1.2-1.5mg/dl likely due to underlying sepsis Monitor BMP, Consulted nephrology- no indication for HD now Cr improving with fluid /Acute on chronic anemia has h/o anemia requiring previous blood transfusions could be multifactorial (GI bleed and CKD), s/p 2 Units PRBC transfused on 12/08/18 / h/o Hypertension - BP now stable /Diabetes type 2, SSI as needed Full code status. 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 In the ED, She was found in acute respiratory failure, requiring bag valve mask ventilation and hypotensive. Noted coffee-ground drainage from OG tube and patient also found to have purulent discharge from the right ear, and stephanie are removed by ED physician. Patient was intubated in the ER and admitted to the ICU for further evaluation and management. Blood culture 12/08/[address] no growth so [address]. [address] head extensive right MCA encephalomalcia, right mastoid opacities. CXR showed small left pleural effusion. CT chest showed large pericardial effusion, LLL atelectasis v/s infiltrate and left pleural effusion. s/p 2 units PRBc transfusion on 12/08/18. renal consulted for worsening renal function. Hospitalist Physical GEN: Intubated, On vent, not in acute distress HEENT: Normocephalic, atraumatic, Neck: supple, No JVD Cardio: s1 and s2 positive Lungs: Clear to auscultation bilaterally, no wheeze Abd:soft, non tender, non distended, normal bowel sounds Ext: No edema, no clubbing, no cyanosis Neuro: Intubated, does not follow commend Skin: No rash The high probability of a clinically significant, sudden or life threatening d eterioration of the [multiple] system(s) required my full and direct attention, intervention and personal management. The aggregate critical care time was [35] minutes. This time is in addition to time spent performing reported procedures but includes the following: [x] Data Review and interpretation [x] Patient assessment and monitoring of vital signs [x] Documentation [x] Medication orders and management Subjective Date of service: 12/13/18 Principal diagnosis: coffee-ground drainage Interval history: Patient seen and examined. Medical records and medication list reviewed. No acute event overnight noted by the RN. Patient remained intubated, tolerating tube feeding diet Discussed plan of care at bedside with RN. Objective - Constitutional Vitals: Vital Signs - 12hr 12/13/18 12/13/18 12/13/18 03:05 03:14 04:00 Temperature 98.8 F Pulse Rate 76 Pulse Rate [ 83 Anterior Bilateral Throughout] Pulse Rate [ Apical] Respiratory 16 Rate Respiratory 18 Rate [Anterior Bilateral Throughout] Blood Pressure 137/61 O2 Sat by Pulse 100 Oximetry 12/13/18 12/13/18 12/13/18 05:00 05:08 06:00 Temperature 92 F L Pulse Rate 72 73 Pulse Rate [ Anterior Bilateral Throughout] Pulse Rate [ Apical] Respiratory 17 17 Rate Respiratory Rate [Anterior Bilateral Throughout] Blood Pressure 141/56 137/56 O2 Sat by Pulse 100 100 Oximetry 12/13/18 12/13/18 12/13/18 06:22 07:00 07:24 Temperature Pulse Rate 73 73 71 Pulse Rate [ Anterior Bilateral Throughout] Pulse Rate [ Apical] Respiratory 17 Rate Respiratory Rate [Anterior Bilateral Throughout] Blood Pressure 137/56 124/61 124/61 O2 Sat by Pulse 100 100 Oximetry 12/13/18 12/13/18 12/13/18 07:30 07:41 08:00 Temperature 97.4 F L Pulse Rate 73 Pulse Rate [ 79 70 Anterior Bilateral Throughout] Pulse Rate [ 72 Apical] Respiratory 22 Rate Respiratory 18 18 Rate [Anterior Bilateral Throughout] Blood Pressure 142/52 O2 Sat by Pulse 100 Oximetry 12/13/18 12/13/18 12/13/18 09:00 10:00 11:00 Temperature Pulse Rate 72 74 73 Pulse Rate [ Anterior Bilateral Throughout] Pulse Rate [ Apical] Respiratory 17 17 17 Rate Respiratory Rate [Anterior Bilateral Throughout] Blood Pressure 135/54 133/52 143/58 O2 Sat by Pulse 100 100 100 Oximetry 12/13/18 12/13/18 12/13/18 11:53 12:00 13:00 Temperature 97.9 F Pulse Rate 74 74 68 Pulse Rate [ Anterior Bilateral Throughout] Pulse Rate [ Apical] Respiratory 17 17 Rate Respiratory Rate [Anterior Bilateral Throughout] Blood Pressure 118/46 160/60 145/55 O2 Sat by Pulse 100 100 100 Oximetry 12/13/18 12/13/18 12/13/18 14:00 14:05 14:10 Temperature Pulse Rate 74 77 Pulse Rate [ 70 Anterior Bilateral Throughout] Pulse Rate [ Apical] Respiratory 16 Rate Respiratory 19 Rate [Anterior Bilateral Throughout] Blood Pressure 146/59 146/59 O2 Sat by Pulse 100 Oximetry 12/13/18 14:20 Temperature Pulse Rate Pulse Rate [ 73 Anterior Bilateral Throughout] Pulse Rate [ Apical] Respiratory Rate Respiratory 20 Rate [Anterior Bilateral Throughout] Blood Pressure O2 Sat by Pulse Oximetry - Labs CBC & Chem 7: 12/14/18 03:35 12/14/18 03:35 Labs: Abnormal lab results 12/12/18 12/13/18 12/13/18 Range/Units 18:01 04:28 04:28 WBC 18.6 H (4.5-11.0) K/mm3 MCV 74 L (79-97) fl MCH 24 L (28-32) pg RDW 21.8 H (13.2-15.2) % Plt Count 34 L (140-440) K/mm3 Seg Neuts % (Manual) 97.0 H (40.0-70.0) % Lymphocytes % (Manual) 2.0 L (13.4-35.0) % Nucleated RBC % 1.0 H (0.0-0.9) % Seg Neutrophils # Man 18.0 H (1.8-7.7) K/mm3 Lymphocytes # (Manual) 0.4 L (1.2-5.4) K/mm3 POC ABG pH (7.35-7.45) POC ABG pCO2 (35-45) POC ABG pO2 (80-105) Chloride 112.0 H (98-107) mmol/L Carbon Dioxide 17 L (22-30) mmol/L BUN 97 H (7-17) mg/dL Creatinine 2.2 H (0.7-1.2) mg/dL POC Glucose 123 H (70-105) Calcium 8.1 L (8.4-10.2) mg/dL 12/13/18 Range/Units 04:45 WBC (4.5-11.0) K/mm3 MCV (79-97) fl MCH (28-32) pg RDW (13.2-15.2) % Plt Count (140-440) K/mm3 Seg Neuts % (Manual) (40.0-70.0) % Lymphocytes % (Manual) (13.4-35.0) % Nucleated RBC % (0.0-0.9) % Seg Neutrophils # Man (1.8-7.7) K/mm3 Lymphocytes # (Manual) (1.2-5.4) K/mm3 POC ABG pH 7.327 L (7.35-7.45) POC ABG pCO2 31.1 L (35-45) POC ABG pO2 136 H (80-105) Chloride (98-107) mmol/L Carbon Dioxide (22-30) mmol/L BUN (7-17) mg/dL Creatinine (0.7-1.2) mg/dL POC Glucose (70-105) Calcium (8.4-10.2) mg/dL
[2018-12-14] MEDS: DUONEB *Not for PRN Use IH SCH ×4 (02:06→19:19)
--- NOTE | 2018-12-14 03:12 | XRay Report ---
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 CPT 46016 HISTORY: COMPARISONS: 12/11/2018. FINDINGS: Heart: Normal. Mediastinum/Vessels: Normal. Lungs/Pleural space: Normal. Bony thorax: No acute osseous abnormality. Life support devices: There is an endotracheal tube. The tip is 2.7 cm above the prashant. The NG tube is in the stomach. Pacemaker leads are in proper position.. There is a right internal jugular vein central venous catheter. The tip is in the superior vena cava. IMPRESSION: No acute cardiopulmonary abnormality. There is an endotracheal tube. The tip is 2.7 cm above the prashant. The NG tube is in the stomach. Pacemaker leads are in proper position.. There is a right internal jugular vein central venous catheter. The tip is in the superior vena cava. This document is electronically signed by Mina Schwartz MD., December 14 2018 03:10:20 AM ET
[2018-12-14 03:59] LABS: Hematocrit 31.3 % (30.3-42.9); Hemoglobin 10.1 gm/dl (10.1-14.3); Mean Corpuscular HGB Conc 32 % (30-34); Mean Corpuscular Volume 75 fl (79-97); Red Blood Count 4.18 M/mm3 (3.65-5.03)
[2018-12-14 04:01] LABS: Platelet Count 44 K/mm3 (140-440); Red Cell Distribution Width 22.2 % (13.2-15.2)
[2018-12-14 04:22] LABS: Calcium 7.7 mg/dL (8.4-10.2)
[2018-12-14] MEDS: NACL 0.45% 1000 ML 1,000 ML IV SCH ×2 (04:58→18:44)
[2018-12-14] MEDS: APRESOLINE PO SCH ×3 (05:00→22:11)
[2018-12-14] MEDS: FLAGYL 500 MG/100 ML 500 MG/100 ML BAG IV SCH ×3 (05:00→22:11)
[2018-12-14] MEDS: HumaLOG SUB-Q SCH ×4 (05:04→23:33)
[2018-12-14 05:10] LABS: Basophils % (Manual) 0 % (0.0-1.8); Eosinophils % (Manual) 0 % (0.0-4.3); Total Cells Counted 100
[2018-12-14 05:11] LABS: Anisocytosis 1+; Hypochromasia 1+; Ovalocytes 1+
[2018-12-14 05:12] LABS: Target Cells 1+
[2018-12-14 05:13] LABS: Platelet Estimate Appears Decreased
[2018-12-14] MEDS: CORTISPORIN AU SCH ×3 (08:31→20:37)
[2018-12-14] MEDS: PREVACID SOLUTAB FEEDTUBE SCH ×2 (10:26→22:11)
[2018-12-14] MEDS: SODIUM CHLORIDE FLUSH SYRINGE 10 ML IV SCH ×2 (10:26→22:12)
[2018-12-14] MEDS: MAXIPIME/NS 2 GM/100 ML 2 GM/100 ML BAG IV SCH (10:27)
--- NOTE | 2018-12-14 11:57 | Progress Note ---
Assessment and Plan - Patient Problems (1) Acute encephalopathy Current Visit: Yes Status: Acute (2) Acute kidney failure with tubular necrosis Current Visit: Yes Status: Acute (3) Acute respiratory failure with hypoxia Current Visit: Yes Status: Acute (4) Altered mental status Current Visit: Yes Status: Acute (5) DVT prophylaxis Current Visit: Yes Status: Acute (6) Sepsis Current Visit: Yes Status: Acute Qualifiers: Sepsis type: sepsis due to unspecified organism Qualified Code(s): A41.9 - Sepsis, unspecified organism Subjective Principal diagnosis: coffee-ground drainage Interval history: attempted on cpap. didnt tolerate Objective Vital Signs - 12hr 12/14/18 12/14/18 12/14/18 00:00 00:16 01:00 Temperature Pulse Rate 72 71 73 Pulse Rate [ Anterior Bilateral Throughout] Pulse Rate [ Apical] Respiratory 14 14 Rate Respiratory Rate [Anterior Bilateral Throughout] Blood Pressure 128/54 128/54 136/55 O2 Sat by Pulse 100 100 100 Oximetry 12/14/18 12/14/18 12/14/18 01:10 02:00 02:06 Temperature 97.9 F Pulse Rate 73 64 64 Pulse Rate [ 70 Anterior Bilateral Throughout] Pulse Rate [ 78 78 Apical] Respiratory 14 16 14 Rate Respiratory 18 Rate [Anterior Bilateral Throughout] Blood Pressure 136/55 143/58 O2 Sat by Pulse 100 100 100 Oximetry 12/14/18 12/14/18 12/14/18 02:16 03:00 03:35 Temperature Pulse Rate 70 70 Pulse Rate [ 74 Anterior Bilateral Throughout] Pulse Rate [ 76 Apical] Respiratory 18 14 Rate Respiratory 18 Rate [Anterior Bilateral Throughout] Blood Pressure 118/48 O2 Sat by Pulse 100 100 Oximetry 12/14/18 12/14/18 12/14/18 04:00 05:00 05:37 Temperature 97.9 F Pulse Rate 76 70 73 Pulse Rate [ Anterior Bilateral Throughout] Pulse Rate [ 76 Apical] Respiratory 18 17 Rate Respiratory Rate [Anterior Bilateral Throughout] Blood Pressure 143/58 146/55 146/55 O2 Sat by Pulse 100 100 100 Oximetry 12/14/18 12/14/18 12/14/18 06:00 07:00 07:31 Temperature Pulse Rate 72 70 74 Pulse Rate [ Anterior Bilateral Throughout] Pulse Rate [ Apical] Respiratory 19 18 Rate Respiratory Rate [Anterior Bilateral Throughout] Blood Pressure 139/59 135/57 135/77 O2 Sat by Pulse 100 100 99 Oximetry 12/14/18 12/14/18 12/14/18 08:00 08:34 08:40 Temperature 96.4 F L Pulse Rate 76 Pulse Rate [ 70 74 Anterior Bilateral Throughout] Pulse Rate [ 76 Apical] Respiratory 14 Rate Respiratory 18 18 Rate [Anterior Bilateral Throughout] Blood Pressure 135/57 O2 Sat by Pulse 100 Oximetry 12/14/18 12/14/18 12/14/18 09:00 10:00 10:10 Temperature Pulse Rate 69 68 78 Pulse Rate [ Anterior Bilateral Throughout] Pulse Rate [ Apical] Respiratory 18 15 Rate Respiratory Rate [Anterior Bilateral Throughout] Blood Pressure 136/54 155/59 O2 Sat by Pulse 100 100 96 Oximetry Constitutional: no acute distress, lethargic Eyes: non-icteric ENT: oropharynx moist, other (ETT in position,large tongue) Neck: supple, no JVD, other (right left IJ lines in place) Ascultation: Bilateral: clear, diminished breath sounds Cardiovascular: regular rate and rhythm, other (pacemaker rhythm) Gastrointestinal: normoactive bowel sounds, non-distended Integumentary: normal Extremities: no cyanosis, no edema, pink and warm Neurologic: pupils equal and round, other (Limited examination, basic responds when physically stimulated) CBC and BMP: 12/14/18 03:35 12/14/18 03:35 ABG, PT/INR, D-dimer: ABG POC ABG pH 7.301 (7.35-7.45) L 12/14/18 05:37 POC ABG pCO2 32.6 (35-45) L 12/14/18 05:37 POC ABG pO2 138 (80-105) H 12/14/18 05:37 POC ABG HCO3 16.1 12/14/18 05:37 POC ABG Total CO2 17 12/14/18 05:37 POC ABG O2 Sat 99 12/14/18 05:37 PT/INR, D-dimer PT 20.2 Sec. (12.2-14.9) H 12/12/18 08:00 INR 1.61 (0.87-1.13) H 12/12/18 08:00 Abnormal lab findings: Abnormal Labs 12/08/18 12/08/18 12/08/18 12:58 13:40 13:40 WBC RBC Hgb Hct MCV MCH RDW Plt Count Lymph % (Auto) Lymph # Seg Neutrophils % Seg Neuts % (Manual) Lymphocytes % (Manual) Nucleated RBC % Seg Neutrophils # Seg Neutrophils # Man Lymphocytes # (Manual) PT INR POC ABG pH POC ABG pCO2 POC ABG pO2 Sodium Potassium Chloride Carbon Dioxide BUN Creatinine Glucose POC Glucose 143 H Lactic Acid Calcium Total Bilirubin AST Total Creatine Kinase C-Reactive Protein Total Protein Albumin TSH Free T4 Urine WBC (Auto) 157.0 H Crossmatch See Detail 12/08/18 12/08/18 12/08/18 13:40 13:40 13:40 WBC RBC 3.06 L Hgb 6.8 L Hct 21.1 L MCV 69 L MCH 22 L RDW 16.2 H Plt Count 56 L Lymph % (Auto) Lymph # Seg Neutrophils % Seg Neuts % (Manual) Lymphocytes % (Manual) 2.0 L Nucleated RBC % Seg Neutrophils # Seg Neutrophils # Man Lymphocytes # (Manual) 0.2 L PT INR POC ABG pH POC ABG pCO2 POC ABG pO2 Sodium Potassium 3.2 L Chloride Carbon Dioxide 18 L BUN 64 H Creatinine 1.5 H Glucose 145 H POC Glucose Lactic Acid 4.00 H* Calcium 7.7 L Total Bilirubin AST Total Creatine Kinase 258 H C-Reactive Protein Total Protein 4.6 L Albumin 1.8 L TSH Free T4 Urine WBC (Auto) Crossmatch 12/08/18 12/08/18 12/08/18 14:29 15:21 16:06 WBC RBC Hgb Hct MCV MCH RDW Plt Count Lymph % (Auto) Lymph # Seg Neutrophils % Seg Neuts % (Manual) Lymphocytes % (Manual) Nucleated RBC % Seg Neutrophils # Seg Neutrophils # Man Lymphocytes # (Manual) PT 20.5 H INR 1.64 H POC ABG pH POC ABG pCO2 34.2 L POC ABG pO2 465 H Sodium Potassium Chloride Carbon Dioxide BUN Creatinine Glucose POC Glucose Lactic Acid 3.00 H* Calcium Total Bilirubin AST Total Creatine Kinase C-Reactive Protein Total Protein Albumin TSH Free T4 Urine WBC (Auto) Crossmatch 12/09/18 12/09/18 12/09/18 02:31 05:36 05:36 WBC 14.5 H RBC Hgb Hct MCV 75 L MCH 25 L RDW 20.4 H Plt Count 68 L Lymph % (Auto) Lymph # Seg Neutrophils % Seg Neuts % (Manual) 81.0 H Lymphocytes % (Manual) 1.0 L Nucleated RBC % Seg Neutrophils # Seg Neutrophils # Man 11.7 H Lymphocytes # (Manual) 0.1 L PT INR POC ABG pH POC ABG pCO2 POC ABG pO2 Sodium Potassium Chloride 107.6 H Carbon Dioxide 18 L BUN 75 H Creatinine 1.9 H Glucose 136 H POC Glucose 152 H Lactic Acid Calcium 7.9 L Total Bilirubin 1.60 H AST 44 H Total Creatine Kinase C-Reactive Protein Total Protein 5.2 L Albumin 2.4 L TSH Free T4 Urine WBC (Auto) Crossmatch 12/09/18 12/09/18 12/09/18 05:43 10:47 13:46 WBC RBC Hgb Hct MCV MCH RDW Plt Count Lymph % (Auto) Lymph # Seg Neutrophils % Seg Neuts % (Manual) Lymphocytes % (Manual) Nucleated RBC % Seg Neutrophils # Seg Neutrophils # Man Lymphocytes # (Manual) PT INR POC ABG pH 7.308 L POC ABG pCO2 POC ABG pO2 183 H Sodium Potassium Chloride Carbon Dioxide BUN Creatinine Glucose POC Glucose 150 H 162 H Lactic Acid Calcium Total Bilirubin AST Total Creatine Kinase C-Reactive Protein Total Protein Albumin TSH Free T4 Urine WBC (Auto) Crossmatch 12/09/18 12/09/18 12/09/18 15:54 15:54 16:40 WBC RBC Hgb Hct MCV MCH RDW Plt Count Lymph % (Auto) Lymph # Seg Neutrophils % Seg Neuts % (Manual) Lymphocytes % (Manual) Nucleated RBC % Seg Neutrophils # Seg Neutrophils # Man Lymphocytes # (Manual) PT INR POC ABG pH POC ABG pCO2 POC ABG pO2 Sodium Potassium Chloride Carbon Dioxide BUN Creatinine Glucose POC Glucose 197 H Lactic Acid Calcium Total Bilirubin AST Total Creatine Kinase C-Reactive Protein Total Protein Albumin TSH 0.268 L Free T4 0.58 L Urine WBC (Auto) Crossmatch 12/09/18 12/09/18 12/09/18 18:18 18:18 21:51 WBC RBC Hgb Hct MCV MCH RDW Plt Count Lymph % (Auto) Lymph # Seg Neutrophils % Seg Neuts % (Manual) Lymphocytes % (Manual) Nucleated RBC % Seg Neutrophils # Seg Neutrophils # Man Lymphocytes # (Manual) PT INR POC ABG pH POC ABG pCO2 POC ABG pO2 Sodium Potassium Chloride 108.2 H Carbon Dioxide 16 L BUN 89 H Creatinine 2.3 H Glucose 180 H POC Glucose 198 H Lactic Acid Calcium 7.9 L Total Bilirubin AST Total Creatine Kinase C-Reactive Protein 19.60 H Total Protein Albumin TSH Free T4 Urine WBC (Auto) Crossmatch 12/10/18 12/10/18 12/10/18 01:59 04:14 04:38 WBC 11.5 H RBC Hgb Hct MCV 75 L MCH 25 L RDW 21.1 H Plt Count 81 L Lymph % (Auto) 5.6 L Lymph # 0.6 L Seg Neutrophils % 89.8 H Seg Neuts % (Manual) Lymphocytes % (Manual) Nucleated RBC % Seg Neutrophils # 10.3 H Seg Neutrophils # Man Lymphocytes # (Manual) PT INR POC ABG pH 7.273 L POC ABG pCO2 32.1 L POC ABG pO2 161 H Sodium Potassium Chloride Carbon Dioxide BUN Creatinine Glucose POC Glucose 219 H Lactic Acid Calcium Total Bilirubin AST Total Creatine Kinase C-Reactive Protein Total Protein Albumin TSH Free T4 Urine WBC (Auto) Crossmatch 12/10/18 12/10/18 12/10/18 04:38 05:07 07:26 WBC RBC Hgb Hct MCV MCH RDW Plt Count Lymph % (Auto) Lymph # Seg Neutrophils % Seg Neuts % (Manual) Lymphocytes % (Manual) Nucleated RBC % Seg Neutrophils # Seg Neutrophils # Man Lymphocytes # (Manual) PT INR POC ABG pH POC ABG pCO2 POC ABG pO2 Sodium Potassium Chloride 112.5 H Carbon Dioxide 14 L BUN 94 H Creatinine 2.4 H Glucose 207 H POC Glucose 221 H 212 H Lactic Acid Calcium 7.7 L Total Bilirubin AST Total Creatine Kinase C-Reactive Protein Total Protein Albumin TSH Free T4 Urine WBC (Auto) Crossmatch 12/10/18 12/10/18 12/10/18 10:40 11:15 14:21 WBC RBC Hgb Hct MCV MCH RDW Plt Count Lymph % (Auto) Lymph # Seg Neutrophils % Seg Neuts % (Manual) Lymphocytes % (Manual) Nucleated RBC % Seg Neutrophils # Seg Neutrophils # Man Lymphocytes # (Manual) PT 21.4 H INR 1.73 H POC ABG pH 7.214 L POC ABG pCO2 32.8 L POC ABG pO2 Sodium Potassium Chloride Carbon Dioxide BUN Creatinine Glucose POC Glucose 227 H Lactic Acid Calcium Total Bilirubin AST Total Creatine Kinase C-Reactive Protein Total Protein Albumin TSH Free T4 Urine WBC (Auto) Crossmatch 12/10/18 12/10/18 12/11/18 15:47 22:38 03:36 WBC RBC Hgb Hct MCV MCH RDW Plt Count Lymph % (Auto) Lymph # Seg Neutrophils % Seg Neuts % (Manual) Lymphocytes % (Manual) Nucleated RBC % Seg Neutrophils # Seg Neutrophils # Man Lymphocytes # (Manual) PT INR POC ABG pH POC ABG pCO2 26.2 L POC ABG pO2 138 H Sodium Potassium Chloride Carbon Dioxide BUN Creatinine Glucose POC Glucose 202 H 259 H Lactic Acid Calcium Total Bilirubin AST Total Creatine Kinase C-Reactive Protein Total Protein Albumin TSH Free T4 Urine WBC (Auto) Crossmatch 12/11/18 12/11/18 12/11/18 04:12 05:00 06:19 WBC RBC Hgb Hct MCV MCH RDW Plt Count Lymph % (Auto) Lymph # Seg Neutrophils % Seg Neuts % (Manual) Lymphocytes % (Manual) Nucleated RBC % Seg Neutrophils # Seg Neutrophils # Man Lymphocytes # (Manual) PT 19.5 H INR 1.54 H POC ABG pH POC ABG pCO2 24.6 L POC ABG pO2 119 H Sodium Potassium Chloride Carbon Dioxide BUN Creatinine Glucose POC Glucose 174 H Lactic Acid Calcium Total Bilirubin AST Total Creatine Kinase C-Reactive Protein Total Protein Albumin TSH Free T4 Urine WBC (Auto) Crossmatch 12/11/18 12/11/18 12/11/18 11:10 11:10 18:10 WBC 14.3 H RBC Hgb Hct MCV 73 L MCH 24 L RDW 21.5 H Plt Count Lymph % (Auto) Lymph # Seg Neutrophils % Seg Neuts % (Manual) Lymphocytes % (Manual) Nucleated RBC % Seg Neutrophils # Seg Neutrophils # Man Lymphocytes # (Manual) PT INR POC ABG pH POC ABG pCO2 POC ABG pO2 Sodium Potassium Chloride 110.5 H Carbon Dioxide 15 L BUN 101 H Creatinine 2.4 H Glucose 119 H POC Glucose 147 H Lactic Acid Calcium 7.7 L Total Bilirubin AST Total Creatine Kinase C-Reactive Protein Total Protein Albumin TSH Free T4 Urine WBC (Auto) Crossmatch 12/11/18 12/12/18 12/12/18 23:25 05:37 06:03 WBC RBC Hgb Hct MCV MCH RDW Plt Count Lymph % (Auto) Lymph # Seg Neutrophils % Seg Neuts % (Manual) Lymphocytes % (Manual) Nucleated RBC % Seg Neutrophils # Seg Neutrophils # Man Lymphocytes # (Manual) PT INR POC ABG pH 7.346 L POC ABG pCO2 28.3 L POC ABG pO2 120 H Sodium Potassium Chloride Carbon Dioxide BUN Creatinine Glucose POC Glucose 143 H 154 H Lactic Acid Calcium Total Bilirubin AST Total Creatine Kinase C-Reactive Protein Total Protein Albumin TSH Free T4 Urine WBC (Auto) Crossmatch 12/12/18 12/12/18 12/12/18 08:00 08:00 08:00 WBC 16.2 H RBC Hgb Hct MCV 74 L MCH 25 L RDW 21.9 H Plt Count 21 L Lymph % (Auto) Lymph # Seg Neutrophils % Seg Neuts % (Manual) Lymphocytes % (Manual) Nucleated RBC % Seg Neutrophils # Seg Neutrophils # Man Lymphocytes # (Manual) PT 20.2 H INR 1.61 H POC ABG pH POC ABG pCO2 POC ABG pO2 Sodium Potassium Chloride 107.4 H Carbon Dioxide 16 L BUN 101 H Creatinine 2.3 H Glucose 169 H POC Glucose Lactic Acid Calcium 8.2 L Total Bilirubin AST Total Creatine Kinase C-Reactive Protein Total Protein Albumin TSH Free T4 Urine WBC (Auto) Crossmatch 12/12/18 12/12/18 12/13/18 12:59 18:01 04:28 WBC 18.6 H RBC Hgb Hct MCV 74 L MCH 24 L RDW 21.8 H Plt Count 34 L Lymph % (Auto) Lymph # Seg Neutrophils % Seg Neuts % (Manual) 97.0 H Lymphocytes % (Manual) 2.0 L Nucleated RBC % 1.0 H Seg Neutrophils # Seg Neutrophils # Man 18.0 H Lymphocytes # (Manual) 0.4 L PT INR POC ABG pH POC ABG pCO2 POC ABG pO2 Sodium Potassium Chloride Carbon Dioxide BUN Creatinine Glucose POC Glucose 158 H 123 H Lactic Acid Calcium Total Bilirubin AST Total Creatine Kinase C-Reactive Protein Total Protein Albumin TSH Free T4 Urine WBC (Auto) Crossmatch 12/13/18 12/13/18 12/13/18 04:28 04:45 19:17 WBC RBC Hgb Hct MCV MCH RDW Plt Count Lymph % (Auto) Lymph # Seg Neutrophils % Seg Neuts % (Manual) Lymphocytes % (Manual) Nucleated RBC % Seg Neutrophils # Seg Neutrophils # Man Lymphocytes # (Manual) PT INR POC ABG pH 7.327 L POC ABG pCO2 31.1 L POC ABG pO2 136 H Sodium Potassium Chloride 112.0 H Carbon Dioxide 17 L BUN 97 H Creatinine 2.2 H Glucose POC Glucose 106 H Lactic Acid Calcium 8.1 L Total Bilirubin AST Total Creatine Kinase C-Reactive Protein Total Protein Albumin TSH Free T4 Urine WBC (Auto) Crossmatch 12/13/18 12/14/18 12/14/18 23:24 03:35 03:35 WBC 22.0 H RBC Hgb Hct MCV 75 L MCH 24 L RDW 22.2 H Plt Count 44 L Lymph % (Auto) Lymph # Seg Neutrophils % Seg Neuts % (Manual) 96.0 H Lymphocytes % (Manual) 3.0 L Nucleated RBC % Seg Neutrophils # Seg Neutrophils # Man 21.1 H Lymphocytes # (Manual) 0.7 L PT INR POC ABG pH POC ABG pCO2 POC ABG pO2 Sodium 136 L Potassium Chloride 107.2 H Carbon Dioxide 15 L BUN 87 H Creatinine 1.7 H Glucose 156 H POC Glucose 108 H Lactic Acid Calcium 7.7 L Total Bilirubin AST Total Creatine Kinase C-Reactive Protein Total Protein Albumin TSH Free T4 Urine WBC (Auto) Crossmatch 12/14/18 12/14/18 04:58 05:37 WBC RBC Hgb Hct MCV MCH RDW Plt Count Lymph % (Auto) Lymph # Seg Neutrophils % Seg Neuts % (Manual) Lymphocytes % (Manual) Nucleated RBC % Seg Neutrophils # Seg Neutrophils # Man Lymphocytes # (Manual) PT INR POC ABG pH 7.301 L POC ABG pCO2 32.6 L POC ABG pO2 138 H Sodium Potassium Chloride Carbon Dioxide BUN Creatinine Glucose POC Glucose 178 H Lactic Acid Calcium Total Bilirubin AST Total Creatine Kinase C-Reactive Protein Total Protein Albumin TSH Free T4 Urine WBC (Auto) Crossmatch
--- NOTE | 2018-12-14 11:58 | Progress Note ---
Assessment and Plan /Acute respiratory failure, intubated Likely from underlying severe sepsis and pleural effusion? Desktop Engineer/Pulm consulted Continue nebs, continue antibiotics Wean off vent support as tolerated CXR showed small left pleural effusion. CT chest showed large pericardial effusion, LLL atelectasis v/s infiltrate and left pleural effusion. /Acute encephalopathy: - likely from sepsis alone versus possible meningitis vs seizure. CT head extensive right MCA encephalomalcia, right mastoid opacities. neurology ordered EEG. 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 - when stable need LP for CSF cell count, diff, protein, glucose, culture, Gram stain, VDRL, HSV and Crypto ag, LP ordered by ID - continue cefepime, vancomycin renally adjusted for now /Sepsis likely due to UTI , right mastoiditis, aspiration PNA Blood cultures negative, right ear Cx pending Started on Cefepime, vanco Now added flagyl for possible aspiration PNA /Hypotension/septic shock, resolved weaned off Levophed, BP now stable /Left lower lobe infiltrate, poss pneumonia - Treat with antibiotic for now /Large Pericardial effusion. TTE EF>50, no echo evidence of tamponade. cardiology consulted and recommended medical management for now /Coffee ground contents from NG aspirate/ Acute GI bleed cont Protonix, Consulted GI- H/h was 6.8 on admission but now stable after 2 units of PRBc transfusion cont to Monitor H/H, no plan for EGD now /MARYANN on CKD 3 baseline Cr around 1.2-1.5mg/dl likely due to underlying sepsis Monitor BMP, Consulted nephrology- no indication for HD now Cr improving with fluid /Acute on chronic anemia has h/o anemia requiring previous blood transfusions could be multifactorial (GI bleed and CKD), s/p 2 Units PRBC transfused on 12/08/18 / h/o Hypertension - BP now stable /Diabetes type 2, SSI as needed Full code status. 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 In the ED, She was found in acute respiratory failure, requiring bag valve mask ventilation and hypotensive. Noted coffee-ground drainage from OG tube and patient also found to have purulent discharge from the right ear, and stephanie are removed by ED physician. Patient was intubated in the ER and admitted to the ICU for further evaluation and management. Blood culture 12/08/2018 no growth so far. CT head extensive right MCA encephalomalcia, right mastoid opacities. CXR showed small left pleural effusion. CT chest showed large pericardial effusion, LLL atelectasis v/s infiltrate and left pleural effusion. s/p 2 units PRBc transfusion on 12/08/18. renal consulted for worsening renal function. Hospitalist Physical GEN: Intubated, On vent, not in acute distress, off sedation HEENT: Normocephalic, atraumatic, Neck: supple, No JVD Cardio: s1 and s2 positive Lungs: Clear to auscultation bilaterally, no wheeze Abd:soft, non tender, non distended, normal bowel sounds Ext: No edema, no clubbing, no cyanosis Neuro: Intubated, does not follow commend Skin: No rash The high probability of a clinically significant, sudden or life threatening deterioration of the [multiple] system(s) required my full and direct attention, intervention and personal management. The aggregate critical care time was [35] minutes. This time is in addition to time spent performing reported procedures but includes the following: [x] Data Review and interpretation [x] Patient assessment and monitoring of vital signs [x] Documentation [x] Medication orders and management Subjective Date of service: 12/14/18 Principal diagnosis: coffee-ground drainage Interval history: Patient seen and examined. Medical records and medication list reviewed. No acute event overnight noted by the RN. Patient remained intubated, tolerating tube feeding diet, off sedation but unresponsive Discussed plan of care at bedside with RN. Objective - Constitutional Vitals: Vital Signs - 12hr 12/14/18 12/14/18 12/14/18 00:00 00:16 01:00 Temperature Pulse Rate 72 71 73 Pulse Rate [ Anterior Bilateral Throughout] Pulse Rate [ Apical] Respiratory 14 14 Rate Respiratory Rate [Anterior Bilateral Throughout] Blood Pressure 128/54 128/54 136/55 O2 Sat by Pulse 100 100 100 Oximetry 12/14/18 12/14/18 12/14/18 01:10 02:00 02:06 Temperature 97.9 F Pulse Rate 73 64 64 Pulse Rate [ 70 Anterior Bilateral Throughout] Pulse Rate [ 78 78 Apical] Respiratory 14 16 14 Rate Respiratory 18 Rate [Anterior Bilateral Throughout] Blood Pressure 136/55 143/58 O2 Sat by Pulse 100 100 100 Oximetry 12/14/18 12/14/18 12/14/18 02:16 03:00 03:35 Temperature Pulse Rate 70 70 Pulse Rate [ 74 Anterior Bilateral Throughout] Pulse Rate [ 76 Apical] Respiratory 18 14 Rate Respiratory 18 Rate [Anterior Bilateral Throughout] Blood Pressure 118/48 O2 Sat by Pulse 100 100 Oximetry 12/14/18 12/14/18 12/14/18 04:00 05:00 05:37 Temperature 97.9 F Pulse Rate 76 70 73 Pulse Rate [ Anterior Bilateral Throughout] Pulse Rate [ 76 Apical] Respiratory 18 17 Rate Respiratory Rate [Anterior Bilateral Throughout] Blood Pressure 143/58 146/55 146/55 O2 Sat by Pulse 100 100 100 Oximetry 12/14/18 12/14/18 12/14/18 06:00 07:00 07:31 Temperature Pulse Rate 72 70 74 Pulse Rate [ Anterior Bilateral Throughout] Pulse Rate [ Apical] Respiratory 19 18 Rate Respiratory Rate [Anterior Bilateral Throughout] Blood Pressure 139/59 135/57 135/77 O2 Sat by Pulse 100 100 99 Oximetry 12/14/18 12/14/18 12/14/18 08:00 08:34 08:40 Temperature 96.4 F L Pulse Rate 76 Pulse Rate [ 70 74 Anterior Bilateral Throughout] Pulse Rate [ 76 Apical] Respiratory 14 Rate Respiratory 18 18 Rate [Anterior Bilateral Throughout] Blood Pressure 135/57 O2 Sat by Pulse 100 Oximetry 12/14/18 12/14/18 12/14/18 09:00 10:00 10:10 Temperature Pulse Rate 69 68 78 Pulse Rate [ Anterior Bilateral Throughout] Pulse Rate [ Apical] Respiratory 18 15 Rate Respiratory Rate [Anterior Bilateral Throughout] Blood Pressure 136/54 155/59 O2 Sat by Pulse 100 100 96 Oximetry - Labs CBC & Chem 7: 12/15/18 05:30 12/15/18 05:30 Labs: Abnormal lab results 12/13/18 12/13/18 12/14/18 Range/Units 19:17 23:24 03:35 WBC 22.0 H (4.5-11.0) K/mm3 MCV 75 L (79-97) fl MCH 24 L (28-32) pg RDW 22.2 H (13.2-15.2) % Plt Count 44 L (140-440) K/mm3 Seg Neuts % (Manual) 96.0 H (40.0-70.0) % Lymphocytes % (Manual) 3.0 L (13.4-35.0) % Seg Neutrophils # Man 21.1 H (1.8-7.7) K/mm3 Lymphocytes # (Manual) 0.7 L (1.2-5.4) K/mm3 POC ABG pH (7.35-7.45) POC ABG pCO2 (35-45) POC ABG pO2 (80-105) Sodium (137-145) mmol/L Chloride (98-107) mmol/L Carbon Dioxide (22-30) mmol/L BUN (7-17) mg/dL Creatinine (0.7-1.2) mg/dL Glucose (65-100) mg/dL POC Glucose 106 H 108 H (70-105) Calcium (8.4-10.2) mg/dL 12/14/18 12/14/18 12/14/18 Range/Units 03:35 04:58 05:37 WBC (4.5-11.0) K/mm3 MCV (79-97) fl MCH (28-32) pg RDW (13.2-15.2) % Plt Count (140-440) K/mm3 Seg Neuts % (Manual) (40.0-70.0) % Lymphocytes % (Manual) (13.4-35.0) % Seg Neutrophils # Man (1.8-7.7) K/mm3 Lymphocytes # (Manual) (1.2-5.4) K/mm3 POC ABG pH 7.301 L (7.35-7.45) POC ABG pCO2 32.6 L (35-45) POC ABG pO2 138 H (80-105) Sodium 136 L (137-145) mmol/L Chloride 107.2 H (98-107) mmol/L Carbon Dioxide 15 L (22-30) mmol/L BUN 87 H (7-17) mg/dL Creatinine 1.7 H (0.7-1.2) mg/dL Glucose 156 H (65-100) mg/dL POC Glucose 178 H (70-105) Calcium 7.7 L (8.4-10.2) mg/dL
--- NOTE | 2018-12-14 12:25 | Progress Note ---
Assessment and Plan Continue current management. - Patient Problems (1) Pericardial effusion Current Visit: Yes Status: Acute (2) Acute respiratory failure with hypoxia Current Visit: Yes Status: Acute (3) Sepsis Current Visit: Yes Status: Acute Qualifiers: Sepsis type: sepsis due to unspecified organism Qualified Code(s): A41.9 - Sepsis, unspecified organism (4) Acute encephalopathy Current Visit: Yes Status: Acute (5) MARYANN (acute kidney injury) Current Visit: Yes Status: Acute (6) GI bleed Current Visit: Yes Status: Acute (7) HTN (hypertension) Current Visit: Yes Status: Chronic Qualifiers: Hypertension type: essential hypertension Qualified Code(s): I10 - Essential (primary) hypertension (8) History of CVA (cerebrovascular accident) Current Visit: Yes Status: Chronic (9) T2DM (type 2 diabetes mellitus) Current Visit: Yes Status: Chronic Qualifiers: Diabetes mellitus salvage determiner insulin use: unspecified salvage determiner insulin use status Subjective Date of service: 12/14/18 Principal diagnosis: Large pericardial effusion, Acute resp failure, Sepsis, GI bleed, MARYANN Interval history: Remains unresponsive. Objective Vital Signs Temp Pulse Pulse Pulse Resp Resp BP 12/14/18 10:10 78 12/14/18 10:00 68 15 155/59 12/14/18 09:00 69 18 136/54 12/14/18 08:40 74 18 12/14/18 08:34 70 18 12/14/18 08:00 96.4 F L 76 76 14 135/57 12/14/18 07:31 74 135/77 12/14/18 07:00 70 18 135/57 12/14/18 06:00 72 19 139/59 12/14/18 05:37 73 146/55 12/14/18 05:00 97.9 F 70 76 17 146/55 12/14/18 04:00 76 18 143/58 12/14/18 03:35 70 76 14 12/14/18 03:00 70 18 118/48 12/14/18 02:16 74 18 12/14/18 02:06 64 70 78 14 18 12/14/18 02:00 64 16 143/58 12/14/18 01:10 97.9 F 73 78 14 136/55 12/14/18 01:00 73 14 136/55 03/09/19 00:16 71 128/54 12/14/18 00:00 72 14 128/54 12/13/18 23:33 97.9 F 12/13/18 23:22 82 13 154/61 12/13/18 23:20 82 78 14 12/13/18 23:00 82 17 133/57 12/13/18 22:00 71 18 133/57 12/13/18 21:10 76 71 16 133/56 12/13/18 21:00 76 16 133/56 12/13/18 20:06 75 18 12/13/18 20:00 97.4 F L 73 16 141/57 12/13/18 19:56 73 18 12/13/18 19:43 70 134/53 12/13/18 19:05 71 71 16 12/13/18 19:00 71 16 138/59 12/13/18 18:00 70 15 138/56 12/13/18 17:00 70 18 138/57 12/13/18 16:31 71 133/56 12/13/18 16:00 71 71 16 135/56 12/13/18 15:47 97.0 F L 12/13/18 15:00 74 16 141/61 12/13/18 14:20 73 20 12/13/18 14:10 77 146/59 12/13/18 14:05 70 19 12/13/18 14:00 74 16 146/59 12/13/18 13:00 68 17 145/55 Last Vital Signs Temp 96.4 F L 12/14/18 08:00 Pulse 78 12/14/18 10:10 Resp 15 12/14/18 10:00 BP 155/59 12/14/18 10:00 Pulse Ox 96 12/14/18 10:10 - Physical Examination General: No Apparent Distress, Other (intubated, nonresponsive ) HEENT: Positive: Normocephaly, Mucus Membranes Moist Neck: Positive: neck supple, trachea midline Cardiac: Positive: Reg Rate and Rhythm, S1/S2 Lungs: Positive: Rhonchi Neuro: Positive: Other (unresponsive) Abdomen: Positive: Soft, Active Bowel Sounds Skin: Positive: Clear. Negative: Rash Musculoskeletal: Normal Range of Motion Extremities: Absent: edema - Labs and Meds CBC 12/14/18 Range/Units 03:35 WBC 22.0 H (4.5-11.0) K/mm3 RBC 4.18 (3.65-5.03) M/mm3 Hgb 10.1 (10.1-14.3) gm/dl Hct 31.3 (30.3-42.9) % Plt Count 44 L (140-440) K/mm3 Comprehensive Metabolic Panel 12/14/18 Range/Units 03:35 Sodium 136 L (137-145) mmol/L Potassium 3.7 (3.6-5.0) mmol/L Chloride 107.2 H (98-107) mmol/L Carbon Dioxide 15 L (22-30) mmol/L BUN 87 H (7-17) mg/dL Creatinine 1.7 H (0.7-1.2) mg/dL Glucose 156 H (65-100) mg/dL Calcium 7.7 L (8.4-10.2) mg/dL - Telemetry EKG Rhythm: Sinus Rhythm
[2018-12-14 12:36] LABS: ANA Screen, IFA Negative (Negative)
[2018-12-14] MEDS ORDERED: VASELINE LIP THERAPY TP PRN (13:00)
--- NOTE | 2018-12-14 13:06 | Progress Note ---
Assessment and Plan - Patient Problems (1) Acute kidney failure with tubular necrosis Current Visit: Yes Status: Acute Plan to address problem: Labs noted and his renal function is showing slow improvement. Would favor continuation of current therapy. There is no indication for renal replacement therapy at present time. (2) Acute encephalopathy Current Visit: Yes Status: Acute Plan to address problem: s/p EEG yesterday. Will follow up results. Further management per primary team. (3) Acute post-hemorrhagic anemia Current Visit: Yes Status: Acute Plan to address problem: H/H is stable at this time. Continue to monitor, transfuse prn to maintain HgB>7.0 (4) Acute respiratory failure with hypoxia Current Visit: Yes Status: Acute Plan to address problem: Continues on ventilatory support, and further management per ICU/Pulmonary team. (5) Pericardial effusion without cardiac tamponade Current Visit: Yes Status: Acute Plan to address problem: s/p ECHO with findings not consistent with cardiac tamponade. Will continue to monitor, further recs per cardiology. Subjective Date of service: 12/14/18 Principal diagnosis: Large pericardial effusion, Acute resp failure, Sepsis, GI bleed, MARYANN Interval history: Remains intubate, no changes in his mental status. He is off pressors at this time and is also off sedation, but remains unresponsive. Labs noted and there is improvement in renal function. H/H levels have also stabilized since admission. Objective - Vital Signs Vital signs: Vital Signs - 12hr 12/14/18 12/14/18 12/14/18 01:10 02:00 02:06 Temperature 97.9 F Pulse Rate 73 64 64 Pulse Rate [ 70 Anterior Bilateral Throughout] Pulse Rate [ 78 78 Apical] Respiratory 14 16 14 Rate Respiratory 18 Rate [Anterior Bilateral Throughout] Blood Pressure 136/55 143/58 O2 Sat by Pulse 100 100 100 Oximetry 12/14/18 12/14/18 12/14/18 02:16 03:00 03:35 Temperature Pulse Rate 70 70 Pulse Rate [ 74 Anterior Bilateral Throughout] Pulse Rate [ 76 Apical] Respiratory 18 14 Rate Respiratory 18 Rate [Anterior Bilateral Throughout] Blood Pressure 118/48 O2 Sat by Pulse 100 100 Oximetry 12/14/18 12/14/18 12/14/18 04:00 05:00 05:37 Temperature 97.9 F Pulse Rate 76 70 73 Pulse Rate [ Anterior Bilateral Throughout] Pulse Rate [ 76 Apical] Respiratory 18 17 Rate Respiratory Rate [Anterior Bilateral Throughout] Blood Pressure 143/58 146/55 146/55 O2 Sat by Pulse 100 100 100 Oximetry 12/14/18 12/14/18 12/14/18 06:00 07:00 07:31 Temperature Pulse Rate 72 70 74 Pulse Rate [ Anterior Bilateral Throughout] Pulse Rate [ Apical] Respiratory 19 18 Rate Respiratory Rate [Anterior Bilateral Throughout] Blood Pressure 139/59 135/57 135/77 O2 Sat by Pulse 100 100 99 Oximetry 12/14/18 12/14/18 12/14/18 08:00 08:34 08:40 Temperature 96.4 F L Pulse Rate 76 Pulse Rate [ 70 74 Anterior Bilateral Throughout] Pulse Rate [ 76 Apical] Respiratory 14 Rate Respiratory 18 18 Rate [Anterior Bilateral Throughout] Blood Pressure 135/57 O2 Sat by Pulse 100 Oximetry 12/14/18 12/14/18 12/14/18 09:00 10:00 10:10 Temperature Pulse Rate 69 68 78 Pulse Rate [ Anterior Bilateral Throughout] Pulse Rate [ Apical] Respiratory 18 15 Rate Respiratory Rate [Anterior Bilateral Throughout] Blood Pressure 136/54 155/59 O2 Sat by Pulse 100 100 96 Oximetry 12/14/18 12/14/18 11:00 12:00 Temperature 96.3 F L Pulse Rate 69 66 Pulse Rate [ Anterior Bilateral Throughout] Pulse Rate [ 72 Apical] Respiratory 18 14 Rate Respiratory Rate [Anterior Bilateral Throughout] Blood Pressure 137/55 132/53 O2 Sat by Pulse 100 100 Oximetry - General Appearance General appearance: chronically ill, intubated, frail EENT: ATNC Neck: no JVD Respiratory: Present: Decreased Breath Sounds Cardiology: regular Gastrointestinal: normal Integumentary: warm and dry Neurologic: other (remains unresponsive despite being off all sedation. ) Musculoskeletal: other (-edema ) Psychiatric: other (unresponsive at this time ) - Lab 12/14/18 03:35 12/14/18 03:35 Most recent lab results Calcium 7.7 mg/dL (8.4-10.2) L 12/14/18 03:35 - Imaging Chest x-ray: report reviewed - Allied health notes Allied health notes reviewed: nursing Medications & Allergies - Medications Allergies/Adverse Reactions: Allergies Penicillins Allergy (Verified 12/08/18 13:13) Hives Home Medications: Home Medications Medication Instructions Recorded Confirmed Last Taken Type ALBUTEROL Inhaler (OR & NICU) 2 puff IH QID PRN #1 inhalation 12/21/16 12/08/18 Unknown Rx [Proair] Albuterol Sulfate [Albuterol 0.63% 0.63 mg IH TID PRN #90 ml 12/21/16 12/08/18 Unknown Rx NEBS] Amlodipine Besylate [Norvasc] 10 mg PO DAILY #90 tablet 12/21/16 12/08/18 Unknown Rx AtorvaSTATin [Lipitor] 20 mg PO QHS #90 tablet 12/21/16 12/08/18 Unknown Rx Hydralazine HCl [Apresoline TAB] 50 mg PO TID #90 tablet 12/21/16 12/08/18 Unknown Rx Metoprolol [Lopressor TAB] 25 mg PO BID #90 tablet 12/21/16 12/08/18 Unknown Rx Promethazine /Codeine 5 ml PO Q6H PRN #100 ml 12/21/16 12/08/18 Unknown Rx [Phenergan/Codeine 6.25-10 mg/5 ml] Active Medications: Generic Name Dose Route Start Last Admin Trade Name Freq PRN Reason Stop Dose Admin Acetaminophen 650 mg 12/09/18 01:00 12/09/18 10:00 Tylenol UT 650 mg Q4H PRN Administration Pain MILD(1-3)/Fever >100.5/TURNER Albuterol 2.5 mg 12/09/18 00:31 Proventil IH Q4HRT PRN Shortness Of Breath Albuterol/Ipratropium 1 ampul 12/09/18 02:00 12/14/18 08:34 Duoneb *Not For Prn Use* IH 1 ampul Q6HRT KOLE Administration Lipase/Protease/Amylase 1 each 12/09/18 04:05 Pancrebetsy Pena 10,500 Unit FEEDTUBE PRN PRN For Clogged Feeding Tube Hydralazine HCl 50 mg 12/10/18 14:00 12/14/18 05:00 Apresoline PO 50 mg Q8HR KOLE Administration Hydrophilic Ointment 1 applic 12/08/18 13:31 Vaseline Lip Therapy TP Q2HR PRN Dry Lips Norepinephrine 4 mg in 250 mls @ 7.5 mls/hr 12/08/18 14:00 12/08/18 20:00 Levophed Drip 4 Mg/Ns 250 Ml IV 0 mcg/min TITR KOLE 0 mls/hr Titration Protocol 2 MCG/MIN Cefepime HCl 2 gm in 100 mls @ 200 mls/hr 12/09/18 10:00 12/14/18 10:27 Maxipime/Ns 2 Gm/100 Ml IV 200 mls/hr Q24HR KOLE Administration Protocol Sodium Chloride 1,000 mls @ 75 mls/hr 12/10/18 12:00 12/14/18 04:58 Nacl 0.45% 1000 Ml IV 75 mls/hr DIRECT KOLE Administration Metronidazole 500 mg in 100 mls @ 100 mls/hr 12/13/18 14:00 12/14/18 05:00 Flagyl 500 Mg/100 Ml IV 100 mls/hr Q8HR KOLE Administration Protocol Insulin Human Lispro 0 unit 12/11/18 12:00 12/14/18 12:53 Humalog SUB-Q 4 unit Q6HR KOLE Administration Protocol Labetalol HCl 10 mg 12/09/18 16:18 12/10/18 09:14 Normodyne IV 10 mg Q4H PRN Administration Hypertension Lansoprazole 30 mg 12/12/18 10:00 12/14/18 10:26 Prevacid Solutab FEEDTUBE 30 mg BID KOLE Administration Multi-Ingred Cream/Lotion/Oil/Oint 1 applic 12/08/18 13:31 Artificial Tears Ophth Oint OU Q4HR PRN Dry Eye(s) Neomycin/Polymyxin/Hydrocortisone 4 drops 12/09/18 08:00 12/14/18 08:31 Cortisporin AU 4 drops TID KOLE Administration Ondansetron HCl 4 mg 12/09/18 00:31 Zofran IV Q8H PRN Nausea And Vomiting Simple Syrup 15 ml 12/09/18 04:05 Simple Syrup FEEDTUBE PRN PRN Hypoglycemia Simple Syrup 30 ml 12/09/18 04:05 Simple Syrup FEEDTUBE PRN PRN Hypoglycemia Sodium Bicarbonate 325 mg 12/09/18 04:05 Sodium Bicarbonate FEEDTUBE PRN PRN For Clogged Feeding Tube Sodium Chloride 10 ml 12/09/18 10:00 12/14/18 10:26 Sodium Chloride Flush Syringe 10 Ml IV 10 ml BID KOLE Administration Sodium Chloride 10 ml 12/09/18 00:31 Sodium Chloride Flush Syringe 10 Ml IV PRN PRN LINE FLUSH
[2018-12-14] MEDS ORDERED: VANCOMYCIN 750 MG in NACL 0.9% 250ML 250 ML IV ONE (19:00)
[2018-12-15] MEDS: DUONEB *Not for PRN Use IH SCH ×4 (01:34→19:38)
--- NOTE | 2018-12-15 05:41 | XRay Report ---
PROCEDURE: XR CHEST 1V AP TECHNIQUE: HISTORY: follow up respiratory failure COMPARISONS: FINDINGS: Single frontal view of the chest was acquired and compared to the prior examination of Teto kelley 9. There is cardiomegaly and pacing device. There is no evidence of congestive heart failure. The endotracheal tube lies in appropriate position. There is a nasogastric tube which terminates in t he gastric fundus. There is a right-sided central venous catheter with its tip in superior vena cava. IMPRESSION: Cardiomegaly This document is electronically signed by Michael Jones MD., December 15 2018 05:39:36 AM ET
[2018-12-15] MEDS: HumaLOG SUB-Q SCH ×3 (05:44→19:53)
[2018-12-15] MEDS: FLAGYL 500 MG/100 ML 500 MG/100 ML BAG IV SCH ×3 (05:44→21:16)
[2018-12-15] MEDS: APRESOLINE PO SCH ×3 (05:45→21:16)
[2018-12-15 06:36] LABS: Hematocrit 29.2 % (30.3-42.9); Hemoglobin 9.5 gm/dl (10.1-14.3); Mean Corpuscular HGB Conc 33 % (30-34); Mean Corpuscular Volume 74 fl (79-97); Red Blood Count 3.92 M/mm3 (3.65-5.03)
[2018-12-15 06:40] LABS: Platelet Count 48 K/mm3 (140-440); Red Cell Distribution Width 22.7 % (13.2-15.2)
[2018-12-15 06:50] LABS: Calcium 7.7 mg/dL (8.4-10.2)
[2018-12-15 07:25] LABS: Band Neutrophils # (Manual) 0.2 K/mm3; Basophils % (Manual) 0 % (0.0-1.8); Monocytes % (Manual) 0 % (0.0-7.3); Total Cells Counted 100
[2018-12-15 07:27] LABS: Hypochromasia 1+; Platelet Estimate Appears Decreased; Schistocytes Rare; Target Cells 1+
[2018-12-15] MEDS: CORTISPORIN AU SCH ×3 (08:21→19:58)
--- NOTE | 2018-12-15 09:48 | Progress Note ---
Assessment and Plan /Acute respiratory failure, intubated Likely from underlying severe sepsis and pleural effusion? 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 CT chest showed large pericardial effusion, LLL atelectasis v/s infiltrate and left pleural effusion. /Acute encephalopathy: - likely from sepsis alone versus possible meningitis vs seizure. CT head extensive right MCA encephalomalcia, right mastoid opacities. neurology ordered EEG. 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 - when stable need LP for CSF cell count, diff, protein, glucose, culture, Gram stain, VDRL, HSV and Crypto ag, LP ordered by ID - continue cefepime, vancomycin renally adjusted for now /Sepsis likely due to UTI , right mastoiditis, aspiration PNA Blood cultures negative, right ear Cx pending Started on Cefepime, vanco Now added flagyl for possible aspiration PNA /Hypotension/septic shock, resolved weaned off Levophed, BP now stable /Left lower lobe infiltrate, poss pneumonia - Treat with antibiotic for now /Large Pericardial effusion. TTE EF>50, no echo evidence of tamponade. cardiology consulted and recommended medical management for now /Coffee ground contents from NG aspirate/ Acute GI bleed cont Protonix, Consulted GI- H/h was 6.8 on admission but now stable after 2 units of PRBc transfusion cont to Monitor H/H, no plan for EGD now /MARYANN on CKD 3 baseline Cr around 1.2-1.5mg/dl likely due to underlying sepsis Monitor BMP, Consulted nephrology- no indication for HD now Cr improving with fluid /Acute on chronic anemia has h/o anemia requiring previous blood transfusions could be multifactorial (GI bleed and CKD), s/p 2 Units PRBC transfused on 12/08/18 / h/o Hypertension - BP now stable /Diabetes type 2, SSI as needed Full code status. 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 In the ED, She was found in acute respiratory failure, requiring bag valve mask ventilation and hypotensive. Noted coffee-ground drainage from OG tube and patient also found to have purulent discharge from the right ear, and stephanie are removed by ED physician. Patient was intubated in the ER and admitted to the ICU for further evaluation and management. Blood culture 12/08/2018 no growth so far. CT head extensive right MCA encephalomalcia, right mastoid opacities. CXR showed small left pleural effusion. CT chest showed large pericardial effusion, LLL atelectasis v/s infiltrate and left pleural effusion. s/p 2 units PRBc transfusion on 12/08/18. renal consulted for worsening renal function. Hospitalist Physical GEN: Intubated, On vent, not in acute distress, off sedation HEENT: Normocephalic, atraumatic, Neck: supple, No JVD Cardio: s1 and s2 positive Lungs: Clear to auscultation bilaterally, no wheeze Abd:soft, non tender, non distended, normal bowel sounds Ext: No edema, no clubbing, no cyanosis Neuro: Intubated, does not follow commend Skin: No rash The high probability of a clinically significant, sudden or life threatening deterioration of the [multiple] system(s) required my full and direct attention, intervention and personal management. The aggregate critical care time was [35] minutes. This time is in addition to time spent performing reported procedures but includes the following: [x] Data Review and interpretation [x] Patient assessment and monitoring of vital signs [x] Documentation [x] Medication orders and management Subjective Date of service: 12/15/18 Principal diagnosis: coffee-ground drainage Interval history: Patient seen and examined. Medical records and medication list reviewed. No acute event overnight noted by the RN. Patient remained intubated, tolerating tube feeding diet, off sedation but unresponsive Discussed plan of care at bedside with RN. Objective - Constitutional Vitals: Vital Signs - 12hr 12/14/18 12/14/18 12/14/18 21:00 22:00 22:11 Temperature Pulse Rate 88 86 89 Pulse Rate [ Anterior Bilateral Throughout] Pulse Rate [ Anterior Bilateral] Respiratory 17 16 Rate Respiratory Rate [Anterior Bilateral Throughout] Respiratory Rate [Anterior Bilateral] Blood Pressure 140/58 138/55 135/60 O2 Sat by Pulse 100 100 Oximetry 12/14/18 12/15/18 12/15/18 23:00 00:00 00:01 Temperature 97.8 F Pulse Rate 88 90 92 H Pulse Rate [ Anterior Bilateral Throughout] Pulse Rate [ Anterior Bilateral] Respiratory 18 17 Rate Respiratory Rate [Anterior Bilateral Throughout] Respiratory Rate [Anterior Bilateral] Blood Pressure 135/60 134/60 134/60 O2 Sat by Pulse 100 100 100 Oximetry 12/15/18 12/15/18 12/15/18 01:00 01:32 03:00 Temperature Pulse Rate 87 90 Pulse Rate [ 89 92 H Anterior Bilateral Throughout] Pulse Rate [ Anterior Bilateral] Respiratory 18 19 Rate Respiratory 21 21 Rate [Anterior Bilateral Throughout] Respiratory Rate [Anterior Bilateral] Blood Pressure 135/56 133/52 O2 Sat by Pulse 100 99 Oximetry 12/15/18 12/15/18 12/15/18 04:00 04:28 05:00 Temperature 98.0 F Pulse Rate 90 94 H 89 Pulse Rate [ Anterior Bilateral Throughout] Pulse Rate [ Anterior Bilateral] Respiratory 20 18 Rate Respiratory Rate [Anterior Bilateral Throughout] Respiratory Rate [Anterior Bilateral] Blood Pressure 133/52 133/52 124/49 O2 Sat by Pulse 99 100 100 Oximetry 12/15/18 12/15/18 12/15/18 05:45 06:00 08:00 Temperature Pulse Rate 88 87 86 Pulse Rate [ 88 Anterior Bilateral Throughout] Pulse Rate [ Anterior Bilateral] Respiratory 15 1 L Rate Respiratory 20 Rate [Anterior Bilateral Throughout] Respiratory Rate [Anterior Bilateral] Blood Pressure 124/49 114/53 123/48 O2 Sat by Pulse 100 100 Oximetry 12/15/18 08:15 Temperature Pulse Rate Pulse Rate [ 87 Anterior Bilateral Throughout] Pulse Rate [ 87 Anterior Bilateral] Respiratory Rate Respiratory 20 Rate [Anterior Bilateral Throughout] Respiratory 20 Rate [Anterior Bilateral] Blood Pressure O2 Sat by Pulse Oximetry - Labs CBC & Chem 7: 12/15/18 05:30 12/15/18 05:30 Labs: Abnormal lab results 12/14/18 12/14/18 12/14/18 Range/Units 12:10 17:44 23:16 WBC (4.5-11.0) K/mm3 Hgb (10.1-14.3) gm/dl Hct (30.3-42.9) % MCV (79-97) fl MCH (28-32) pg RDW (13.2-15.2) % Plt Count (140-440) K/mm3 Seg Neuts % (Manual) (40.0-70.0) % Lymphocytes % (Manual) (13.4-35.0) % Seg Neutrophils # Man (1.8-7.7) K/mm3 Lymphocytes # (Manual) (1.2-5.4) K/mm3 POC ABG pH (7.35-7.45) POC ABG pCO2 (35-45) Chloride (98-107) mmol/L Carbon Dioxide (22-30) mmol/L BUN (7-17) mg/dL Creatinine (0.7-1.2) mg/dL Glucose (65-100) mg/dL POC Glucose 208 H 172 H 123 H (70-105) Calcium (8.4-10.2) mg/dL 12/15/18 12/15/18 12/15/18 Range/Units 03:37 05:30 05:30 WBC 20.1 H (4.5-11.0) K/mm3 Hgb 9.5 L (10.1-14.3) gm/dl Hct 29.2 L (30.3-42.9) % MCV 74 L (79-97) fl MCH 24 L (28-32) pg RDW 22.7 H (13.2-15.2) % Plt Count 48 L (140-440) K/mm3 Seg Neuts % (Manual) 96.0 H (40.0-70.0) % Lymphocytes % (Manual) 1.0 L (13.4-35.0) % Seg Neutrophils # Man 19.3 H (1.8-7.7) K/mm3 Lymphocytes # (Manual) 0.2 L (1.2-5.4) K/mm3 POC ABG pH 7.325 L (7.35-7.45) POC ABG pCO2 28.6 L (35-45) Chloride 110.8 H (98-107) mmol/L Carbon Dioxide 17 L (22-30) mmol/L BUN 83 H (7-17) mg/dL Creatinine 1.6 H (0.7-1.2) mg/dL Glucose 150 H (65-100) mg/dL POC Glucose (70-105) Calcium 7.7 L (8.4-10.2) mg/dL 12/15/18 Range/Units 05:43 WBC (4.5-11.0) K/mm3 Hgb (10.1-14.3) gm/dl Hct (30.3-42.9) % MCV (79-97) fl MCH (28-32) pg RDW (13.2-15.2) % Plt Count (140-440) K/mm3 Seg Neuts % (Manual) (40.0-70.0) % Lymphocytes % (Manual) (13.4-35.0) % Seg Neutrophils # Man (1.8-7.7) K/mm3 Lymphocytes # (Manual) (1.2-5.4) K/mm3 POC ABG pH (7.35-7.45) POC ABG pCO2 (35-45) Chloride (98-107) mmol/L Carbon Dioxide (22-30) mmol/L BUN (7-17) mg/dL Creatinine (0.7-1.2) mg/dL Glucose (65-100) mg/dL POC Glucose 151 H (70-105) Calcium (8.4-10.2) mg/dL
[2018-12-15] MEDS: SODIUM CHLORIDE FLUSH SYRINGE 10 ML IV SCH ×2 (10:02→21:16)
[2018-12-15] MEDS: PREVACID SOLUTAB FEEDTUBE SCH ×2 (10:32→21:16)
--- NOTE | 2018-12-15 10:42 | Progress Note ---
Assessment and Plan - Patient Problems (1) Acute encephalopathy Current Visit: Yes Status: Acute (2) Acute kidney failure with tubular necrosis Current Visit: Yes Status: Acute (3) Acute respiratory failure with hypoxia Current Visit: Yes Status: Acute (4) Altered mental status Current Visit: Yes Status: Acute (5) DVT prophylaxis Current Visit: Yes Status: Acute (6) Sepsis Current Visit: Yes Status: Acute Qualifiers: Sepsis type: sepsis due to unspecified organism Qualified Code(s): A41.9 - Sepsis, unspecified organism Subjective Principal diagnosis: coffee-ground drainage Interval history: on vent still unable to wean Objective Vital Signs - 12hr 12/14/18 12/14/18 12/14/18 22:00 22:11 23:00 Temperature Pulse Rate 86 89 88 Pulse Rate [ Anterior Bilateral Throughout] Pulse Rate [ Anterior Bilateral] Respiratory 16 18 Rate Respiratory Rate [Anterior Bilateral Throughout] Respiratory Rate [Anterior Bilateral] Blood Pressure 138/55 135/60 135/60 O2 Sat by Pulse 100 100 Oximetry 12/15/18 12/15/18 12/15/18 00:00 00:01 01:00 Temperature 97.8 F Pulse Rate 90 92 H 87 Pulse Rate [ Anterior Bilateral Throughout] Pulse Rate [ Anterior Bilateral] Respiratory 17 18 Rate Respiratory Rate [Anterior Bilateral Throughout] Respiratory Rate [Anterior Bilateral] Blood Pressure 134/60 134/60 135/56 O2 Sat by Pulse 100 100 100 Oximetry 12/15/18 12/15/18 12/15/18 01:32 03:00 04:00 Temperature 98.0 F Pulse Rate 90 90 Pulse Rate [ 89 92 H Anterior Bilateral Throughout] Pulse Rate [ Anterior Bilateral] Respiratory 19 20 Rate Respiratory 21 21 Rate [Anterior Bilateral Throughout] Respiratory Rate [Anterior Bilateral] Blood Pressure 133/52 133/52 O2 Sat by Pulse 99 99 Oximetry 12/15/18 12/15/18 12/15/18 04:28 05:00 05:45 Temperature Pulse Rate 94 H 89 88 Pulse Rate [ Anterior Bilateral Throughout] Pulse Rate [ Anterior Bilateral] Respiratory 18 Rate Respiratory Rate [Anterior Bilateral Throughout] Respiratory Rate [Anterior Bilateral] Blood Pressure 133/52 124/49 124/49 O2 Sat by Pulse 100 100 Oximetry 12/15/18 12/15/18 12/15/18 06:00 08:00 08:15 Temperature Pulse Rate 87 86 Pulse Rate [ 88 87 Anterior Bilateral Throughout] Pulse Rate [ 87 Anterior Bilateral] Respiratory 15 1 L Rate Respiratory 20 20 Rate [Anterior Bilateral Throughout] Respiratory 20 Rate [Anterior Bilateral] Blood Pressure 114/53 123/48 O2 Sat by Pulse 100 100 Oximetry Constitutional: no acute distress, lethargic, other (on vent cmv) Eyes: non-icteric ENT: oropharynx moist, other (ETT in position,large tongue) Neck: supple, no JVD, other (right left IJ lines in place) Ascultation: Bilateral: clear, diminished breath sounds Cardiovascular: regular rate and rhythm, other (pacemaker rhythm) Gastrointestinal: normoactive bowel sounds, non-distended Integumentary: normal Extremities: no cyanosis, no edema, pink and warm Neurologic: pupils equal and round, other (Limited examination, basic responds when physically stimulated) CBC and BMP: 12/15/18 05:30 12/15/18 05:30 ABG, PT/INR, D-dimer: ABG POC ABG pH 7.325 (7.35-7.45) L 12/15/18 03:37 POC ABG pCO2 28.6 (35-45) L 12/15/18 03:37 POC ABG pO2 105 (80-105) 12/15/18 03:37 POC ABG HCO3 14.9 12/15/18 03:37 POC ABG Total CO2 16 12/15/18 03:37 POC ABG O2 Sat 98 12/15/18 03:37 PT/INR, D-dimer PT 20.2 Sec. (12.2-14.9) H 12/12/18 08:00 INR 1.61 (0.87-1.13) H 12/12/18 08:00 Abnormal lab findings: Abnormal Labs 12/08/18 12/08/18 12/08/18 12:58 13:40 13:40 WBC RBC Hgb Hct MCV MCH RDW Plt Count Lymph % (Auto) Lymph # Seg Neutrophils % Seg Neuts % (Manual) Lymphocytes % (Manual) Nucleated RBC % Seg Neutrophils # Seg Neutrophils # Man Lymphocytes # (Manual) PT INR POC ABG pH POC ABG pCO2 POC ABG pO2 Sodium Potassium Chloride Carbon Dioxide BUN Creatinine Glucose POC Glucose 143 H Lactic Acid Calcium Total Bilirubin AST Total Creatine Kinase C-Reactive Protein Total Protein Albumin TSH Free T4 Urine WBC (Auto) 157.0 H Crossmatch See Detail 12/08/18 12/08/18 12/08/18 13:40 13:40 13:40 WBC RBC 3.06 L Hgb 6.8 L Hct 21.1 L MCV 69 L MCH 22 L RDW 16.2 H Plt Count 56 L Lymph % (Auto) Lymph # Seg Neutrophils % Seg Neuts % (Manual) Lymphocytes % (Manual) 2.0 L Nucleated RBC % Seg Neutrophils # Seg Neutrophils # Man Lymphocytes # (Manual) 0.2 L PT INR POC ABG pH POC ABG pCO2 POC ABG pO2 Sodium Potassium 3.2 L Chloride Carbon Dioxide 18 L BUN 64 H Creatinine 1.5 H Glucose 145 H POC Glucose Lactic Acid 4.00 H* Calcium 7.7 L Total Bilirubin AST Total Creatine Kinase 258 H C-Reactive Protein Total Protein 4.6 L Albumin 1.8 L TSH Free T4 Urine WBC (Auto) Crossmatch 12/08/18 12/08/18 12/08/18 14:29 15:21 16:06 WBC RBC Hgb Hct MCV MCH RDW Plt Count Lymph % (Auto) Lymph # Seg Neutrophils % Seg Neuts % (Manual) Lymphocytes % (Manual) Nucleated RBC % Seg Neutrophils # Seg Neutrophils # Man Lymphocytes # (Manual) PT 20.5 H INR 1.64 H POC ABG pH POC ABG pCO2 34.2 L POC ABG pO2 465 H Sodium Potassium Chloride Carbon Dioxide BUN Creatinine Glucose POC Glucose Lactic Acid 3.00 H* Calcium Total Bilirubin AST Total Creatine Kinase C-Reactive Protein Total Protein Albumin TSH Free T4 Urine WBC (Auto) Crossmatch 12/09/18 12/09/18 12/09/18 02:31 05:36 05:36 WBC 14.5 H RBC Hgb Hct MCV 75 L MCH 25 L RDW 20.4 H Plt Count 68 L Lymph % (Auto) Lymph # Seg Neutrophils % Seg Neuts % (Manual) 81.0 H Lymphocytes % (Manual) 1.0 L Nucleated RBC % Seg Neutrophils # Seg Neutrophils # Man 11.7 H Lymphocytes # (Manual) 0.1 L PT INR POC ABG pH POC ABG pCO2 POC ABG pO2 Sodium Potassium Chloride 107.6 H Carbon Dioxide 18 L BUN 75 H Creatinine 1.9 H Glucose 136 H POC Glucose 152 H Lactic Acid Calcium 7.9 L Total Bilirubin 1.60 H AST 44 H Total Creatine Kinase C-Reactive Protein Total Protein 5.2 L Albumin 2.4 L TSH Free T4 Urine WBC (Auto) Crossmatch 12/09/18 12/09/18 12/09/18 05:43 10:47 13:46 WBC RBC Hgb Hct MCV MCH RDW Plt Count Lymph % (Auto) Lymph # Seg Neutrophils % Seg Neuts % (Manual) Lymphocytes % (Manual) Nucleated RBC % Seg Neutrophils # Seg Neutrophils # Man Lymphocytes # (Manual) PT INR POC ABG pH 7.308 L POC ABG pCO2 POC ABG pO2 183 H Sodium Potassium Chloride Carbon Dioxide BUN Creatinine Glucose POC Glucose 150 H 162 H Lactic Acid Calcium Total Bilirubin AST Total Creatine Kinase C-Reactive Protein Total Protein Albumin TSH Free T4 Urine WBC (Auto) Crossmatch 12/09/18 12/09/18 12/09/18 15:54 15:54 16:40 WBC RBC Hgb Hct MCV MCH RDW Plt Count Lymph % (Auto) Lymph # Seg Neutrophils % Seg Neuts % (Manual) Lymphocytes % (Manual) Nucleated RBC % Seg Neutrophils # Seg Neutrophils # Man Lymphocytes # (Manual) PT INR POC ABG pH POC ABG pCO2 POC ABG pO2 Sodium Potassium Chloride Carbon Dioxide BUN Creatinine Glucose POC Glucose 197 H Lactic Acid Calcium Total Bilirubin AST Total Creatine Kinase C-Reactive Protein Total Protein Albumin TSH 0.268 L Free T4 0.58 L Urine WBC (Auto) Crossmatch 12/09/18 12/09/18 12/09/18 18:18 18:18 21:51 WBC RBC Hgb Hct MCV MCH RDW Plt Count Lymph % (Auto) Lymph # Seg Neutrophils % Seg Neuts % (Manual) Lymphocytes % (Manual) Nucleated RBC % Seg Neutrophils # Seg Neutrophils # Man Lymphocytes # (Manual) PT INR POC ABG pH POC ABG pCO2 POC ABG pO2 Sodium Potassium Chloride 108.2 H Carbon Dioxide 16 L BUN 89 H Creatinine 2.3 H Glucose 180 H POC Glucose 198 H Lactic Acid Calcium 7.9 L Total Bilirubin AST Total Creatine Kinase C-Reactive Protein 19.60 H Total Protein Albumin TSH Free T4 Urine WBC (Auto) Crossmatch 12/10/18 12/10/18 12/10/18 01:59 04:14 04:38 WBC 11.5 H RBC Hgb Hct MCV 75 L MCH 25 L RDW 21.1 H Plt Count 81 L Lymph % (Auto) 5.6 L Lymph # 0.6 L Seg Neutrophils % 89.8 H Seg Neuts % (Manual) Lymphocytes % (Manual) Nucleated RBC % Seg Neutrophils # 10.3 H Seg Neutrophils # Man Lymphocytes # (Manual) PT INR POC ABG pH 7.273 L POC ABG pCO2 32.1 L POC ABG pO2 161 H Sodium Potassium Chloride Carbon Dioxide BUN Creatinine Glucose POC Glucose 219 H Lactic Acid Calcium Total Bilirubin AST Total Creatine Kinase C-Reactive Protein Total Protein Albumin TSH Free T4 Urine WBC (Auto) Crossmatch 12/10/18 12/10/18 12/10/18 04:38 05:07 07:26 WBC RBC Hgb Hct MCV MCH RDW Plt Count Lymph % (Auto) Lymph # Seg Neutrophils % Seg Neuts % (Manual) Lymphocytes % (Manual) Nucleated RBC % Seg Neutrophils # Seg Neutrophils # Man Lymphocytes # (Manual) PT INR POC ABG pH POC ABG pCO2 POC ABG pO2 Sodium Potassium Chloride 112.5 H Carbon Dioxide 14 L BUN 94 H Creatinine 2.4 H Glucose 207 H POC Glucose 221 H 212 H Lactic Acid Calcium 7.7 L Total Bilirubin AST Total Creatine Kinase C-Reactive Protein Total Protein Albumin TSH Free T4 Urine WBC (Auto) Crossmatch 12/10/18 12/10/18 12/10/18 10:40 11:15 14:21 WBC RBC Hgb Hct MCV MCH RDW Plt Count Lymph % (Auto) Lymph # Seg Neutrophils % Seg Neuts % (Manual) Lymphocytes % (Manual) Nucleated RBC % Seg Neutrophils # Seg Neutrophils # Man Lymphocytes # (Manual) PT 21.4 H INR 1.73 H POC ABG pH 7.214 L POC ABG pCO2 32.8 L POC ABG pO2 Sodium Potassium Chloride Carbon Dioxide BUN Creatinine Glucose POC Glucose 227 H Lactic Acid Calcium Total Bilirubin AST Total Creatine Kinase C-Reactive Protein Total Protein Albumin TSH Free T4 Urine WBC (Auto) Crossmatch 12/10/18 12/10/18 12/11/18 15:47 22:38 03:36 WBC RBC Hgb Hct MCV MCH RDW Plt Count Lymph % (Auto) Lymph # Seg Neutrophils % Seg Neuts % (Manual) Lymphocytes % (Manual) Nucleated RBC % Seg Neutrophils # Seg Neutrophils # Man Lymphocytes # (Manual) PT INR POC ABG pH POC ABG pCO2 26.2 L POC ABG pO2 138 H Sodium Potassium Chloride Carbon Dioxide BUN Creatinine Glucose POC Glucose 202 H 259 H Lactic Acid Calcium Total Bilirubin AST Total Creatine Kinase C-Reactive Protein Total Protein Albumin TSH Free T4 Urine WBC (Auto) Crossmatch 12/11/18 12/11/18 12/11/18 04:12 05:00 06:19 WBC RBC Hgb Hct MCV MCH RDW Plt Count Lymph % (Auto) Lymph # Seg Neutrophils % Seg Neuts % (Manual) Lymphocytes % (Manual) Nucleated RBC % Seg Neutrophils # Seg Neutrophils # Man Lymphocytes # (Manual) PT 19.5 H INR 1.54 H POC ABG pH POC ABG pCO2 24.6 L POC ABG pO2 119 H Sodium Potassium Chloride Carbon Dioxide BUN Creatinine Glucose POC Glucose 174 H Lactic Acid Calcium Total Bilirubin AST Total Creatine Kinase C-Reactive Protein Total Protein Albumin TSH Free T4 Urine WBC (Auto) Crossmatch 12/11/18 12/11/18 12/11/18 11:10 11:10 18:10 WBC 14.3 H RBC Hgb Hct MCV 73 L MCH 24 L RDW 21.5 H Plt Count Lymph % (Auto) Lymph # Seg Neutrophils % Seg Neuts % (Manual) Lymphocytes % (Manual) Nucleated RBC % Seg Neutrophils # Seg Neutrophils # Man Lymphocytes # (Manual) PT INR POC ABG pH POC ABG pCO2 POC ABG pO2 Sodium Potassium Chloride 110.5 H Carbon Dioxide 15 L BUN 101 H Creatinine 2.4 H Glucose 119 H POC Glucose 147 H Lactic Acid Calcium 7.7 L Total Bilirubin AST Total Creatine Kinase C-Reactive Protein Total Protein Albumin TSH Free T4 Urine WBC (Auto) Crossmatch 12/11/18 12/12/18 12/12/18 23:25 05:37 06:03 WBC RBC Hgb Hct MCV MCH RDW Plt Count Lymph % (Auto) Lymph # Seg Neutrophils % Seg Neuts % (Manual) Lymphocytes % (Manual) Nucleated RBC % Seg Neutrophils # Seg Neutrophils # Man Lymphocytes # (Manual) PT INR POC ABG pH 7.346 L POC ABG pCO2 28.3 L POC ABG pO2 120 H Sodium Potassium Chloride Carbon Dioxide BUN Creatinine Glucose POC Glucose 143 H 154 H Lactic Acid Calcium Total Bilirubin AST Total Creatine Kinase C-Reactive Protein Total Protein Albumin TSH Free T4 Urine WBC (Auto) Crossmatch 12/12/18 12/12/18 12/12/18 08:00 08:00 08:00 WBC 16.2 H RBC Hgb Hct MCV 74 L MCH 25 L RDW 21.9 H Plt Count 21 L Lymph % (Auto) Lymph # Seg Neutrophils % Seg Neuts % (Manual) Lymphocytes % (Manual) Nucleated RBC % Seg Neutrophils # Seg Neutrophils # Man Lymphocytes # (Manual) PT 20.2 H INR 1.61 H POC ABG pH POC ABG pCO2 POC ABG pO2 Sodium Potassium Chloride 107.4 H Carbon Dioxide 16 L BUN 101 H Creatinine 2.3 H Glucose 169 H POC Glucose Lactic Acid Calcium 8.2 L Total Bilirubin AST Total Creatine Kinase C-Reactive Protein Total Protein Albumin TSH Free T4 Urine WBC (Auto) Crossmatch 12/12/18 12/12/18 12/13/18 12:59 18:01 04:28 WBC 18.6 H RBC Hgb Hct MCV 74 L MCH 24 L RDW 21.8 H Plt Count 34 L Lymph % (Auto) Lymph # Seg Neutrophils % Seg Neuts % (Manual) 97.0 H Lymphocytes % (Manual) 2.0 L Nucleated RBC % 1.0 H Seg Neutrophils # Seg Neutrophils # Man 18.0 H Lymphocytes # (Manual) 0.4 L PT INR POC ABG pH POC ABG pCO2 POC ABG pO2 Sodium Potassium Chloride Carbon Dioxide BUN Creatinine Glucose POC Glucose 158 H 123 H Lactic Acid Calcium Total Bilirubin AST Total Creatine Kinase C-Reactive Protein Total Protein Albumin TSH Free T4 Urine WBC (Auto) Crossmatch 12/13/18 12/13/18 12/13/18 04:28 04:45 19:17 WBC RBC Hgb Hct MCV MCH RDW Plt Count Lymph % (Auto) Lymph # Seg Neutrophils % Seg Neuts % (Manual) Lymphocytes % (Manual) Nucleated RBC % Seg Neutrophils # Seg Neutrophils # Man Lymphocytes # (Manual) PT INR POC ABG pH 7.327 L POC ABG pCO2 31.1 L POC ABG pO2 136 H Sodium Potassium Chloride 112.0 H Carbon Dioxide 17 L BUN 97 H Creatinine 2.2 H Glucose POC Glucose 106 H Lactic Acid Calcium 8.1 L Total Bilirubin AST Total Creatine Kinase C-Reactive Protein Total Protein Albumin TSH Free T4 Urine WBC (Auto) Crossmatch 12/13/18 12/14/18 12/14/18 23:24 03:35 03:35 WBC 22.0 H RBC Hgb Hct MCV 75 L MCH 24 L RDW 22.2 H Plt Count 44 L Lymph % (Auto) Lymph # Seg Neutrophils % Seg Neuts % (Manual) 96.0 H Lymphocytes % (Manual) 3.0 L Nucleated RBC % Seg Neutrophils # Seg Neutrophils # Man 21.1 H Lymphocytes # (Manual) 0.7 L PT INR POC ABG pH POC ABG pCO2 POC ABG pO2 Sodium 136 L Potassium Chloride 107.2 H Carbon Dioxide 15 L BUN 87 H Creatinine 1.7 H Glucose 156 H POC Glucose 108 H Lactic Acid Calcium 7.7 L Total Bilirubin AST Total Creatine Kinase C-Reactive Protein Total Protein Albumin TSH Free T4 Urine WBC (Auto) Crossmatch 12/14/18 12/14/18 12/14/18 04:58 05:37 12:10 WBC RBC Hgb Hct MCV MCH RDW Plt Count Lymph % (Auto) Lymph # Seg Neutrophils % Seg Neuts % (Manual) Lymphocytes % (Manual) Nucleated RBC % Seg Neutrophils # Seg Neutrophils # Man Lymphocytes # (Manual) PT INR POC ABG pH 7.301 L POC ABG pCO2 32.6 L POC ABG pO2 138 H Sodium Potassium Chloride Carbon Dioxide BUN Creatinine Glucose POC Glucose 178 H 208 H Lactic Acid Calcium Total Bilirubin AST Total Creatine Kinase C-Reactive Protein Total Protein Albumin TSH Free T4 Urine WBC (Auto) Crossmatch 12/14/18 12/14/18 12/15/18 17:44 23:16 03:37 WBC RBC Hgb Hct MCV MCH RDW Plt Count Lymph % (Auto) Lymph # Seg Neutrophils % Seg Neuts % (Manual) Lymphocytes % (Manual) Nucleated RBC % Seg Neutrophils # Seg Neutrophils # Man Lymphocytes # (Manual) PT INR POC ABG pH 7.325 L POC ABG pCO2 28.6 L POC ABG pO2 Sodium Potassium Chloride Carbon Dioxide BUN Creatinine Glucose POC Glucose 172 H 123 H Lactic Acid Calcium Total Bilirubin AST Total Creatine Kinase C-Reactive Protein Total Protein Albumin TSH Free T4 Urine WBC (Auto) Crossmatch 12/15/18 12/15/18 12/15/18 05:30 05:30 05:43 WBC 20.1 H RBC Hgb 9.5 L Hct 29.2 L MCV 74 L MCH 24 L RDW 22.7 H Plt Count 48 L Lymph % (Auto) Lymph # Seg Neutrophils % Seg Neuts % (Manual) 96.0 H Lymphocytes % (Manual) 1.0 L Nucleated RBC % Seg Neutrophils # Seg Neutrophils # Man 19.3 H Lymphocytes # (Manual) 0.2 L PT INR POC ABG pH POC ABG pCO2 POC ABG pO2 Sodium Potassium Chloride 110.8 H Carbon Dioxide 17 L BUN 83 H Creatinine 1.6 H Glucose 150 H POC Glucose 151 H Lactic Acid Calcium 7.7 L Total Bilirubin AST Total Creatine Kinase C-Reactive Protein Total Protein Albumin TSH Free T4 Urine WBC (Auto) Crossmatch Allied health notes reviewed: nursing
[2018-12-15] MEDS: NORMODYNE IV PRN (12:32)
[2018-12-15] MEDS: NACL 0.45% 1000 ML 1,000 ML IV SCH (12:35)
--- NOTE | 2018-12-15 12:38 | Progress Note ---
Assessment and Plan - Patient Problems (1) Acute kidney failure with tubular necrosis Current Visit: Yes Status: Acute Plan to address problem: Labs noted and his renal function is showing slow improvement. Would favor continuation of current therapy. There is no indication for renal replacement therapy at present time. (2) Acute encephalopathy Current Visit: Yes Status: Acute Plan to address problem: s/p EEG . Will follow up results. Further management per primary team. (3) Acute post-hemorrhagic anemia Current Visit: Yes Status: Acute Plan to address problem: H/H is stable at this time. Continue to monitor, transfuse prn to maintain HgB>7.0 (4) Acute respiratory failure with hypoxia Current Visit: Yes Status: Acute Plan to address problem: Continues on ventilatory support, and further management per ICU/Pulmonary team. (5) Pericardial effusion without cardiac tamponade Current Visit: Yes Status: Acute Plan to address problem: s/p ECHO with findings not consistent with cardiac tamponade. Will continue to monitor, further recs per cardiology. Subjective Date of service: 12/15/18 Principal diagnosis: coffee-ground drainage Interval history: No acute changes overnight. Remains intubated. No changes in mental status noted. Labs noted and renal function is stable. Objective - Vital Signs Vital signs: Vital Signs - 12hr 12/15/18 12/15/18 12/15/18 00:00 00:01 01:00 Temperature 97.8 F Pulse Rate 90 92 H 87 Pulse Rate [ Anterior Bilateral Throughout] Pulse Rate [ Anterior Bilateral] Respiratory 17 18 Rate Respiratory Rate [Anterior Bilateral Throughout] Respiratory Rate [Anterior Bilateral] Blood Pressure 134/60 134/60 135/56 O2 Sat by Pulse 100 100 100 Oximetry 12/15/18 12/15/18 12/15/18 01:32 03:00 04:00 Temperature 98.0 F Pulse Rate 90 90 Pulse Rate [ 89 92 H Anterior Bilateral Throughout] Pulse Rate [ Anterior Bilateral] Respiratory 19 20 Rate Respiratory 21 21 Rate [Anterior Bilateral Throughout] Respiratory Rate [Anterior Bilateral] Blood Pressure 133/52 133/52 O2 Sat by Pulse 99 99 Oximetry 12/15/18 12/15/18 12/15/18 04:28 05:00 05:45 Temperature Pulse Rate 94 H 89 88 Pulse Rate [ Anterior Bilateral Throughout] Pulse Rate [ Anterior Bilateral] Respiratory 18 Rate Respiratory Rate [Anterior Bilateral Throughout] Respiratory Rate [Anterior Bilateral] Blood Pressure 133/52 124/49 124/49 O2 Sat by Pulse 100 100 Oximetry 12/15/18 12/15/18 12/15/18 06:00 07:00 08:00 Temperature 99.1 F Pulse Rate 87 86 86 Pulse Rate [ 88 Anterior Bilateral Throughout] Pulse Rate [ Anterior Bilateral] Respiratory 15 13 19 Rate Respiratory 20 Rate [Anterior Bilateral Throughout] Respiratory Rate [Anterior Bilateral] Blood Pressure 114/53 117/47 123/48 O2 Sat by Pulse 100 100 100 Oximetry 12/15/18 12/15/18 12/15/18 08:15 09:00 10:00 Temperature Pulse Rate 90 96 H Pulse Rate [ 87 Anterior Bilateral Throughout] Pulse Rate [ 87 Anterior Bilateral] Respiratory 18 21 Rate Respiratory 20 Rate [Anterior Bilateral Throughout] Respiratory 20 Rate [Anterior Bilateral] Blood Pressure 127/51 128/55 O2 Sat by Pulse 100 100 Oximetry 12/15/18 12/15/18 12/15/18 11:00 12:00 12:32 Temperature Pulse Rate 96 H 97 H 94 H Pulse Rate [ Anterior Bilateral Throughout] Pulse Rate [ Anterior Bilateral] Respiratory 19 18 Rate Respiratory Rate [Anterior Bilateral Throughout] Respiratory Rate [Anterior Bilateral] Blood Pressure 122/53 122/53 179/60 O2 Sat by Pulse 100 Oximetry - General Appearance General appearance: cachectic, chronically ill, intubated, frail EENT: ATNC Neck: no JVD Respiratory: Present: Decreased Breath Sounds Cardiology: regular, S1S2 Gastrointestinal: normal, normoactive bowel sounds Integumentary: no rash, warm and dry Neurologic: other (unresponsive at this time, off sedation ) Musculoskeletal: other (-edema ) - Lab 12/15/18 05:30 12/15/18 05:30 Most recent lab results Calcium 7.7 mg/dL (8.4-10.2) L 12/15/18 05:30 - Allied health notes Allied health notes reviewed: nursing Medications & Allergies - Medications Allergies/Adverse Reactions: Allergies Penicillins Allergy (Verified 12/08/18 13:13) Hives Home Medications: Home Medications Medication Instructions Recorded Confirmed Last Taken Type ALBUTEROL Inhaler (OR & NICU) 2 puff IH QID PRN #1 inhalation 12/21/16 12/08/18 Unknown Rx [Proair] Albuterol Sulfate [Albuterol 0.63% 0.63 mg IH TID PRN #90 ml 12/21/16 12/08/18 Unknown Rx NEBS] Amlodipine Besylate [Norvasc] 10 mg PO DAILY #90 tablet 12/21/16 12/08/18 Unkn own Rx AtorvaSTATin [Lipitor] 20 mg PO QHS #90 tablet 12/21/16 12/08/18 Unknown Rx Hydralazine HCl [Apresoline TAB] 50 mg PO TID #90 tablet 12/21/16 12/08/18 Unknown Rx Metoprolol [Lopressor TAB] 25 mg PO BID #90 tablet 12/21/16 12/08/18 Unknown Rx Promethazine /Codeine 5 ml PO Q6H PRN #100 ml 12/21/16 12/08/18 Unknown Rx [Phenergan/Codeine 6.25-10 mg/5 ml] Active Medications: Generic Name Dose Route Start Last Admin Trade Name Freq PRN Reason Stop Dose Admin Acetaminophen 650 mg 12/09/18 01:00 12/09/18 10:00 Tylenol TN 650 mg Q4H PRN Administration Pain MILD(1-3)/Fever >100.5/TURNER Albuterol 2.5 mg 12/09/18 00:31 Proventil IH Q4HRT PRN Shortness Of Breath Albuterol/Ipratropium 1 ampul 12/09/18 02:00 12/15/18 08:00 Duoneb *Not For Prn Use* IH 1 ampul Q6HRT KOLE Administration Lipase/Protease/Amylase 1 each 12/09/18 04:05 Pancrebetsy Pena 10,500 Unit FEEDTUBE PRN PRN For Clogged Feeding Tube Hydralazine HCl 50 mg 12/10/18 14:00 12/15/18 05:45 Apresoline PO 50 mg Q8HR KOLE Administration Hydrophilic Ointment 1 applic 12/14/18 13:00 Vaseline Lip Therapy TP DIRECT PRN Dry tongue Norepinephrine 4 mg in 250 mls @ 7.5 mls/hr 12/08/18 14:00 12/08/18 20:00 Levophed Drip 4 Mg/Ns 250 Ml IV 0 mcg/min TITR KOLE 0 mls/hr Titration Protocol 2 MCG/MIN Sodium Chloride 1,000 mls @ 75 mls/hr 12/10/18 12:00 12/15/18 12:35 Nacl 0.45% 1000 Ml IV 75 mls/hr DIRECT KOLE Administration Metronidazole 500 mg in 100 mls @ 100 mls/hr 12/13/18 14:00 12/15/18 05:44 Flagyl 500 Mg/100 Ml IV 100 mls/hr Q8HR KOLE Administration Protocol Cefepime HCl 2 gm in 100 mls @ 200 mls/hr 12/15/18 14:00 Maxipime/Ns 2 Gm/100 Ml IV Q24HR KOLE Protocol Insulin Human Lispro 0 unit 12/11/18 12:00 12/15/18 05:44 Humalog SUB-Q 3 unit Q6HR KOLE Administration Protocol Labetalol HCl 10 mg 12/09/18 16:18 12/15/18 12:32 Normodyne IV 10 mg Q4H PRN Administration Hypertension Lansoprazole 30 mg 12/12/18 10:00 12/15/18 10:32 Prevacid Solutab FEEDTUBE 30 mg BID KOLE Administration Multi-Ingred Cream/Lotion/Oil/Oint 1 applic 12/08/18 13:31 Artificial Tears Ophth Oint OU Q4HR PRN Dry Eye(s) Neomycin/Polymyxin/Hydrocortisone 4 drops 12/09/18 08:00 12/15/18 08:21 Cortisporin AU 4 drops TID KOLE Administration Ondansetron HCl 4 mg 12/09/18 00:31 Zofran IV Q8H PRN Nausea And Vomiting Simple Syrup 15 ml 12/09/18 04:05 Simple Syrup FEEDTUBE PRN PRN Hypoglycemia Simple Syrup 30 ml 12/09/18 04:05 Simple Syrup FEEDTUBE PRN PRN Hypoglycemia Sodium Bicarbonate 325 mg 12/09/18 04:05 Sodium Bicarbonate FEEDTUBE PRN PRN For Clogged Feeding Tube Sodium Chloride 10 ml 12/09/18 10:00 12/15/18 10:02 Sodium Chloride Flush Syringe 10 Ml IV 10 ml BID KOLE Administration Sodium Chloride 10 ml 12/09/18 00:31 Sodium Chloride Flush Syringe 10 Ml IV PRN PRN LINE FLUSH
--- NOTE | 2018-12-15 13:22 | Progress Note ---
Assessment and Plan Continue management. - Patient Problems (1) Pericardial effusion Current Visit: Yes Status: Acute (2) Acute respiratory failure with hypoxia Current Visit: Yes Status: Acute (3) Sepsis Current Visit: Yes Status: Acute Qualifiers: Sepsis type: sepsis due to unspecified organism Qualified Code(s): A41.9 - Sepsis, unspecified organism (4) Acute encephalopathy Current Visit: Yes Status: Acute (5) MARYANN (acute kidney injury) Current Visit: Yes Status: Acute (6) GI bleed Current Visit: Yes Status: Acute (7) HTN (hypertension) Current Visit: Yes Status: Chronic Qualifiers: Hypertension type: essential hypertension Qualified Code(s): I10 - Essential (primary) hypertension (8) History of CVA (cerebrovascular accident) Current Visit: Yes Status: Chronic (9) T2DM (type 2 diabetes mellitus) Current Visit: Yes Status: Chronic Qualifiers: Diabetes mellitus long term care pharmacist insulin use: unspecified long term care pharmacist insulin use status Subjective Date of service: 12/15/18 Principal diagnosis: Pericardial effusion, Acute resp failure, Sepsis, Encephalopathy, MARYANN, GIB Interval history: Remains unresponsive. Objective Vital Signs Last Vital Signs Vital Signs - 8 hr 12/15/18 12/15/18 12/15/18 05:45 06:00 07:00 Temperature Pulse Rate 88 87 86 Pulse Rate [ Anterior Bilateral Throughout] Pulse Rate [ Anterior Bilateral] Pulse Rate [ Apical] Respiratory 15 13 Rate Respiratory Rate [Anterior Bilateral Throughout] Respiratory Rate [Anterior Bilateral] Blood Pressure 124/49 114/53 117/47 O2 Sat by Pulse 100 100 Oximetry 12/15/18 12/15/18 12/15/18 08:00 08:15 09:00 Temperature 99.1 F Pulse Rate 86 90 Pulse Rate [ 88 87 Anterior Bilateral Throughout] Pulse Rate [ 87 Anterior Bilateral] Pulse Rate [ Apical] Respiratory 18 18 Rate Respiratory 20 20 Rate [Anterior Bilateral Throughout] Respiratory 20 Rate [Anterior Bilateral] Blood Pressure 123/48 127/51 O2 Sat by Pulse 100 100 Oximetry 12/15/18 12/15/18 12/15/18 10:00 11:00 12:00 Temperature 99.4 F Pulse Rate 96 H 96 H 97 H Pulse Rate [ Anterior Bilateral Throughout] Pulse Rate [ Anterior Bilateral] Pulse Rate [ 76 Apical] Respiratory 21 19 16 Rate Respiratory Rate [Anterior Bilateral Throughout] Respiratory Rate [Anterior Bilateral] Blood Pressure 128/55 122/53 122/53 O2 Sat by Pulse 100 100 100 Oximetry 12/15/18 12/15/18 12:32 13:00 Temperature Pulse Rate 94 H 73 Pulse Rate [ Anterior Bilateral Throughout] Pulse Rate [ Anterior Bilateral] Pulse Rate [ Apical] Respiratory 14 Rate Respiratory Rate [Anterior Bilateral Throughout] Respiratory Rate [Anterior Bilateral] Blood Pressure 179/60 165/60 O2 Sat by Pulse 98 Oximetry - Physical Examination General: No Apparent Distress, Other (intubated, nonresponsive ) HEENT: Positive: Normocephaly, Mucus Membranes Moist Neck: Positive: neck supple, trachea midline Cardiac: Positive: Reg Rate and Rhythm Lungs: Positive: Rhonchi Neuro: Positive: Other (unresponsive) Abdomen: Positive: Soft, Active Bowel Sounds Skin: Positive: Clear. Negative: Rash Musculoskeletal: Normal Range of Motion Extremities: Absent: edema - Labs and Meds CBC 12/15/18 Range/Units 05:30 WBC 20.1 H (4.5-11.0) K/mm3 RBC 3.92 (3.65-5.03) M/mm3 Hgb 9.5 L (10.1-14.3) gm/dl Hct 29.2 L (30.3-42.9) % Plt Count 48 L (140-440) K/mm3 Comprehensive Metabolic Panel 12/15/18 Range/Units 05:30 Sodium 139 (137-145) mmol/L Potassium 4.1 (3.6-5.0) mmol/L Chloride 110.8 H (98-107) mmol/L Carbon Dioxide 17 L (22-30) mmol/L BUN 83 H (7-17) mg/dL Creatinine 1.6 H (0.7-1.2) mg/dL Glucose 150 H (65-100) mg/dL Calcium 7.7 L (8.4-10.2) mg/dL - Telemetry EKG Rhythm: Sinus Rhythm - Allied health notes Allied health notes reviewed: nursing
[2018-12-15] MEDS: MAXIPIME/NS 2 GM/100 ML 2 GM/100 ML BAG IV SCH (13:24)
[2018-12-16] MEDS: HumaLOG SUB-Q SCH ×4 (00:09→18:36)
[2018-12-16] MEDS: NACL 0.45% 1000 ML 1,000 ML IV SCH (00:10)
[2018-12-16] MEDS: DUONEB *Not for PRN Use IH SCH ×4 (01:28→19:29)
[2018-12-16] MEDS: APRESOLINE PO SCH ×3 (05:32→21:24)
[2018-12-16] MEDS: FLAGYL 500 MG/100 ML 500 MG/100 ML BAG IV SCH ×3 (05:33→21:25)
[2018-12-16 05:46] LABS: Hematocrit 28.8 % (30.3-42.9); Hemoglobin 9.1 gm/dl (10.1-14.3); Mean Corpuscular HGB Conc 32 % (30-34); Mean Corpuscular Volume 76 fl (79-97)
[2018-12-16 05:47] LABS: Platelet Count 37 K/mm3 (140-440); Red Cell Distribution Width 23.5 % (13.2-15.2)
[2018-12-16 06:08] LABS: Calcium 7.6 mg/dL (8.4-10.2)
[2018-12-16 06:57] LABS: Band Neutrophils # (Manual) 4.1 K/mm3; Basophils % (Manual) 0 % (0.0-1.8); Eosinophils % (Manual) 0 % (0.0-4.3); Total Cells Counted 100
[2018-12-16 06:58] LABS: Anisocytosis 2+; Hypochromasia 1+; Target Cells Few
[2018-12-16 06:59] LABS: Giant Platelets Few; Ovalocytes 1+; Platelet Estimate Consistent w Auto
[2018-12-16] MEDS: CORTISPORIN AU SCH ×3 (08:21→20:49)
--- NOTE | 2018-12-16 08:39 | Progress Note ---
Assessment and Plan - Patient Problems (1) Acute kidney failure with tubular necrosis Current Visit: Yes Status: Acute Plan to address problem: Kidney function is unchanged. Patient has peripheral edema. Would discontinue intravenous fluids. Follow-up electrolytes and renal function (2) Acidosis Current Visit: Yes Status: Acute Plan to address problem: Bicarbonate is quite low. Supplement (3) Acute encephalopathy Current Visit: Yes Status: Acute Plan to address problem: Toxic/metabolic encephalopathy. Monitor mental status. 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 Granddaughter at the bedside. Patient is unresponsive. Objective - Exam Narrative Exam: Elderly -Malays[place] female lying in bed intubated on the ventilator HEENT: NCAT, endotracheal tube intact, tongue protruding Neck: Supple, no venous distention CVS: S1S2 RRR with no murmur, rub or gallop Chest: Clear to auscultation Abdomen: Protuberant, soft, nontender, no organomegaly, bowel sounds are present Extremities: 2+ edema Skin is warm and dry Genitourinary deferred Neuro: Does not open eyes, not following commands - Vital Signs Vital signs: Vital Signs - 12hr 12/15/18 12/15/18 12/15/18 20:54 21:00 21:16 Temperature Pulse Rate 69 70 Pulse Rate [ 70 Anterior Bilateral Throughout] Respiratory 14 Rate Respiratory 18 Rate [Anterior Bilateral Throughout] Blood Pressure 141/48 141/48 O2 Sat by Pulse 98 Oximetry 12/15/18 12/15/18 12/15/18 22:00 22:50 23:00 Temperature Pulse Rate 72 70 72 Pulse Rate [ Anterior Bilateral Throughout] Respiratory 14 14 14 Rate Respiratory Rate [Anterior Bilateral Throughout] Blood Pressure 146/48 141/48 146/48 O2 Sat by Pulse 98 100 100 Oximetry 12/15/18 12/16/18 12/16/18 23:45 00:00 01:00 Temperature 99.0 F Pulse Rate 70 70 68 Pulse Rate [ Anterior Bilateral Throughout] Respiratory 17 16 Rate Respiratory Rate [Anterior Bilateral Throughout] Blood Pressure 147/51 145/50 152/53 O2 Sat by Pulse 100 100 98 Oximetry 12/16/18 12/16/18 12/16/18 01:29 02:00 03:00 Temperature Pulse Rate 70 69 Pulse Rate [ 70 Anterior Bilateral Throughout] Respiratory 16 15 Rate Respiratory 18 Rate [Anterior Bilateral Throughout] Blood Pressure 145/50 170/53 O2 Sat by Pulse 99 Oximetry 12/16/18 12/16/18 12/16/18 04:00 04:43 05:00 Temperature 98.7 F Pulse Rate 70 72 71 Pulse Rate [ Anterior Bilateral Throughout] Respiratory 19 8 L Rate Respiratory Rate [Anterior Bilateral Throughout] Blood Pressure 172/76 184/62 178/56 O2 Sat by Pulse 99 100 98 Oximetry 12/16/18 12/16/18 12/16/18 05:32 06:00 07:01 Temperature Pulse Rate 67 65 59 L Pulse Rate [ Anterior Bilateral Throughout] Respiratory 18 14 Rate Respiratory Rate [Anterior Bilateral Throughout] Blood Pressure 164/53 164/53 129/49 O2 Sat by Pulse 96 98 Oximetry 12/16/18 12/16/18 12/16/18 07:35 07:36 07:50 Temperature Pulse Rate 60 Pulse Rate [ 60 60 Anterior Bilateral Throughout] Respiratory Rate Respiratory 18 18 Rate [Anterior Bilateral Throughout] Blood Pressure 129/49 O2 Sat by Pulse 100 Oximetry 12/16/18 08:00 Temperature 97.4 F L Pulse Rate 60 Pulse Rate [ Anterior Bilateral Throughout] Respiratory 18 Rate Respiratory Rate [Anterior Bilateral Throughout] Blood Pressure 124/52 O2 Sat by Pulse 99 Oximetry - Lab 12/16/18 05:30 12/16/18 05:30 Most recent lab results Calcium 7.6 mg/dL (8.4-10.2) L 12/16/18 05:30 Medications & Allergies - Medications Allergies/Adverse Reactions: Allergies Penicillins Allergy (Verified 12/08/18 13:13) Hives Home Medications: Home Medications Medication Instructions Recorded Confirmed Last Taken Type ALBUTEROL Inhaler (OR & NICU) 2 puff IH QID PRN #1 inhalation 12/21/16 12/08/18 Unknown Rx [Proair] Albuterol Sulfate [Albuterol 0.63% 0.63 mg IH TID PRN #90 ml 12/21/16 12/08/18 Unknown Rx NEBS] Amlodipine Besylate [Norvasc] 10 mg PO DAILY #90 tablet 12/21/16 12/08/18 Unk nown Rx AtorvaSTATin [Lipitor] 20 mg PO QHS #90 tablet 12/21/16 12/08/18 Unknown Rx Hydralazine HCl [Apresoline TAB] 50 mg PO TID #90 tablet 12/21/16 12/08/18 Unknown Rx Metoprolol [Lopressor TAB] 25 mg PO BID #90 tablet 12/21/16 12/08/18 Unknown Rx Promethazine /Codeine 5 ml PO Q6H PRN #100 ml 12/21/16 12/08/18 Unknown Rx [Phenergan/Codeine 6.25-10 mg/5 ml] Active Medications: Generic Name Dose Route Start Last Admin Trade Name Freq PRN Reason Stop Dose Admin Acetaminophen 650 mg 12/09/18 01:00 12/09/18 10:00 Tylenol MD 650 mg Q4H PRN Administration Pain MILD(1-3)/Fever >100.5/TURNER Albuterol 2.5 mg 12/09/18 00:31 Proventil IH Q4HRT PRN Shortness Of Breath Albuterol/Ipratropium 1 ampul 12/09/18 02:00 12/16/18 07:35 Duoneb *Not For Prn Use* IH 1 ampul Q6HRT KOLE Administration Lipase/Protease/Amylase 1 each 12/09/18 04:05 Pancrebetsy Pena 10,500 Unit FEEDTUBE PRN PRN For Clogged Feeding Tube Hydralazine HCl 50 mg 12/10/18 14:00 12/16/18 05:32 Apresoline PO 50 mg Q8HR KOLE Administration Hydrophilic Ointment 1 applic 12/14/18 13:00 Vaseline Lip Therapy TP DIRECT PRN Dry tongue Sodium Chloride 1,000 mls @ 75 mls/hr 12/10/18 12:00 12/16/18 00:10 Nacl 0.45% 1000 Ml IV 75 mls/hr DIRECT KOLE Administration Metronidazole 500 mg in 100 mls @ 100 mls/hr 12/13/18 14:00 12/16/18 05:33 Flagyl 500 Mg/100 Ml IV 100 mls/hr Q8HR KOLE Administration Protocol Cefepime HCl 2 gm in 100 mls @ 200 mls/hr 12/15/18 14:00 12/15/18 13:24 Maxipime/Ns 2 Gm/100 Ml IV 200 mls/hr Q24HR KOLE Administration Protocol Insulin Human Lispro 0 unit 12/11/18 12:00 12/16/18 05:32 Humalog SUB-Q 3 unit Q6HR KOLE Administration Protocol Labetalol HCl 10 mg 12/09/18 16:18 12/15/18 12:32 Normodyne IV 10 mg Q4H PRN Administration Hypertension Lansoprazole 30 mg 12/12/18 10:00 12/15/18 21:16 Prevacid Solutab FEEDTUBE 30 mg BID KOLE Administration Multi-Ingred Cream/Lotion/Oil/Oint 1 applic 12/08/18 13:31 Artificial Tears Ophth Oint OU Q4HR PRN Dry Eye(s) Neomycin/Polymyxin/Hydrocortisone 4 drops 12/09/18 08:00 12/16/18 08:21 Cortisporin AU 12/18/18 07:59 4 drops TID KOLE Administration Ondansetron HCl 4 mg 12/09/18 00:31 Zofran IV Q8H PRN Nausea And Vomiting Simple Syrup 15 ml 12/09/18 04:05 Simple Syrup FEEDTUBE PRN PRN Hypoglycemia Simple Syrup 30 ml 12/09/18 04:05 Simple Syrup FEEDTUBE PRN PRN Hypoglycemia Sodium Bicarbonate 325 mg 12/09/18 04:05 Sodium Bicarbonate FEEDTUBE PRN PRN For Clogged Feeding Tube Sodium Chloride 10 ml 12/09/18 10:00 12/15/18 21:16 Sodium Chloride Flush Syringe 10 Ml IV 10 ml BID KOLE Administration Sodium Chloride 10 ml 12/09/18 00:31 Sodium Chloride Flush Syringe 10 Ml IV PRN PRN LINE FLUSH
[2018-12-16] MEDS: MAXIPIME/NS 2 GM/100 ML 2 GM/100 ML BAG IV SCH (09:18)
[2018-12-16] MEDS: PREVACID SOLUTAB FEEDTUBE SCH ×2 (09:19→21:24)
[2018-12-16] MEDS: SODIUM CHLORIDE FLUSH SYRINGE 10 ML IV SCH ×2 (09:19→21:25)
--- NOTE | 2018-12-16 09:38 | Progress Note ---
Assessment and Plan Acute respiratory failure on ventilatory support Sepsis. Urinary tract infection origin versus mastoiditis/otitis. On ABX.No fever Question of atelectasis versus left lower lobe pneumonia. See chest x-ray report. Films reviewed personally, cannot evaluate cannot evaluate for any advantage the left base area Acute on chronic kidney injury AMS.Prior stoke,see head CT changes.Neuro comments noted Metabolic acidosis. 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 Critical care time was 31 minutes of [id number] evaluation and coordination of care Subjective Date of service: 12/16/18 Principal diagnosis: coffee-ground drainage Objective Vital Signs - 12hr 12/15/18 12/15/18 12/15/18 22:00 22:50 23:00 Temperature Pulse Rate 72 70 72 Pulse Rate [ Anterior Bilateral Throughout] Respiratory 14 14 14 Rate Respiratory Rate [Anterior Bilateral Throughout] Blood Pressure 146/48 141/48 146/48 O2 Sat by Pulse 98 100 100 Oximetry 12/15/18 12/16/18 12/16/18 23:45 00:00 01:00 Temperature 99.0 F Pulse Rate 70 70 68 Pulse Rate [ Anterior Bilateral Throughout] Respiratory 17 16 Rate Respiratory Rate [Anterior Bilateral Throughout] Blood Pressure 147/51 145/50 152/53 O2 Sat by Pulse 100 100 98 Oximetry 12/16/18 12/16/18 12/16/18 01:29 02:00 03:00 Temperature Pulse Rate 70 69 Pulse Rate [ 70 Anterior Bilateral Throughout] Respiratory 16 15 Rate Respiratory 18 Rate [Anterior Bilateral Throughout] Blood Pressure 145/50 170/53 O2 Sat by Pulse 99 Oximetry 12/16/18 12/16/18 12/16/18 04:00 04:43 05:00 Temperature 98.7 F Pulse Rate 70 72 71 Pulse Rate [ Anterior Bilateral Throughout] Respiratory 19 8 L Rate Respiratory Rate [Anterior Bilateral Throughout] Blood Pressure 172/76 184/62 178/56 O2 Sat by Pulse 99 100 98 Oximetry 12/16/18 12/16/18 12/16/18 05:32 06:00 07:01 Temperature Pulse Rate 67 65 59 L Pulse Rate [ Anterior Bilateral Throughout] Respiratory 18 14 Rate Respiratory Rate [Anterior Bilateral Throughout] Blood Pressure 164/53 164/53 129/49 O2 Sat by Pulse 96 98 Oximetry 12/16/18 12/16/18 12/16/18 07:35 07:36 07:50 Temperature Pulse Rate 60 Pulse Rate [ 60 60 Anterior Bilateral Throughout] Respiratory Rate Respiratory 18 18 Rate [Anterior Bilateral Throughout] Blood Pressure 129/49 O2 Sat by Pulse 100 Oximetry 12/16/18 08:00 Temperature 97.4 F L Pulse Rate 60 Pulse Rate [ Anterior Bilateral Throughout] Respiratory 18 Rate Respiratory Rate [Anterior Bilateral Throughout] Blood Pressure 124/52 O2 Sat by Pulse 99 Oximetry Constitutional: no acute distress, lethargic, other (on vent cmv) Eyes: non-icteric ENT: oropharynx moist, other (ETT in position,large tongue) Neck: supple, no JVD, other (right left IJ lines in place) Ascultation: Bilateral: clear, diminished breath sounds Cardiovascular: regular rate and rhythm, other (pacemaker rhythm) Gastrointestinal: normoactive bowel sounds, non-distended Integumentary: normal Extremities: no cyanosis, no edema, pink and warm Neurologic: pupils equal and round, other (comatose) CBC and BMP: 12/16/18 05:30 12/16/18 05:30 ABG, PT/INR, D-dimer: ABG POC ABG pH 7.325 (7.35-7.45) L 12/15/18 03:37 POC ABG pCO2 28.6 (35-45) L 12/15/18 03:37 POC ABG pO2 105 (80-105) 12/15/18 03:37 POC ABG HCO3 14.9 12/15/18 03:37 POC ABG Total CO2 16 12/15/18 03:37 POC ABG O2 Sat 98 12/15/18 03:37 PT/INR, D-dimer PT 20.2 Sec. (12.2-14.9) H 12/12/18 08:00 INR 1.61 (0.87-1.13) H 12/12/18 08:00 Abnormal lab findings: Abnormal Labs 12/08/18 12/08/18 12/08/18 12:58 13:40 13:40 WBC RBC Hgb Hct MCV MCH RDW Plt Count Lymph % (Auto) Lymph # Seg Neutrophils % Seg Neuts % (Manual) Lymphocytes % (Manual) Monocytes % (Manual) Nucleated RBC % Seg Neutrophils # Seg Neutrophils # Man Lymphocytes # (Manual) Monocytes # (Manual) PT INR POC ABG pH POC ABG pCO2 POC ABG pO2 Sodium Potassium Chloride Carbon Dioxide BUN Creatinine Glucose POC Glucose 143 H Lactic Acid Calcium Total Bilirubin AST Total Creatine Kinase C-Reactive Protein Total Protein Albumin TSH Free T4 Urine WBC (Auto) 157.0 H Crossmatch See Detail 12/08/18 12/08/18 12/08/18 13:40 13:40 13:40 WBC RBC 3.06 L Hgb 6.8 L Hct 21.1 L MCV 69 L MCH 22 L RDW 16.2 H Plt Count 56 L Lymph % (Auto) Lymph # Seg Neutrophils % Seg Neuts % (Manual) Lymphocytes % (Manual) 2.0 L Monocytes % (Manual) Nucleated RBC % Seg Neutrophils # Seg Neutrophils # Man Lymphocytes # (Manual) 0.2 L Monocytes # (Manual) PT INR POC ABG pH POC ABG pCO2 POC ABG pO2 Sodium Potassium 3.2 L Chloride Carbon Dioxide 18 L BUN 64 H Creatinine 1.5 H Glucose 145 H POC Glucose Lactic Acid 4.00 H* Calcium 7.7 L Total Bilirubin AST Total Creatine Kinase 258 H C-Reactive Protein Total Protein 4.6 L Albumin 1.8 L TSH Free T4 Urine WBC (Auto) Crossmatch 12/08/18 12/08/18 12/08/18 14:29 15:21 16:06 WBC RBC Hgb Hct MCV MCH RDW Plt Count Lymph % (Auto) Lymph # Seg Neutrophils % Seg Neuts % (Manual) Lymphocytes % (Manual) Monocytes % (Manual) Nucleated RBC % Seg Neutrophils # Seg Neutrophils # Man Lymphocytes # (Manual) Monocytes # (Manual) PT 20.5 H INR 1.64 H POC ABG pH POC ABG pCO2 34.2 L POC ABG pO2 465 H Sodium Potassium Chloride Carbon Dioxide BUN Creatinine Glucose POC Glucose Lactic Acid 3.00 H* Calcium Total Bilirubin AST Total Creatine Kinase C-Reactive Protein Total Protein Albumin TSH Free T4 Urine WBC (Auto) Crossmatch 12/09/18 12/09/18 12/09/18 02:31 05:36 05:36 WBC 14.5 H RBC Hgb Hct MCV 75 L MCH 25 L RDW 20.4 H Plt Count 68 L Lymph % (Auto) Lymph # Seg Neutrophils % Seg Neuts % (Manual) 81.0 H Lymphocytes % (Manual) 1.0 L Monocytes % (Manual) Nucleated RBC % Seg Neutrophils # Seg Neutrophils # Man 11.7 H Lymphocytes # (Manual) 0.1 L Monocytes # (Manual) PT INR POC ABG pH POC ABG pCO2 POC ABG pO2 Sodium Potassium Chloride 107.6 H Carbon Dioxide 18 L BUN 75 H Creatinine 1.9 H Glucose 136 H POC Glucose 152 H Lactic Acid Calcium 7.9 L Total Bilirubin 1.60 H AST 44 H Total Creatine Kinase C-Reactive Protein Total Protein 5.2 L Albumin 2.4 L TSH Free T4 Urine WBC (Auto) Crossmatch 12/09/18 12/09/18 12/09/18 05:43 10:47 13:46 WBC RBC Hgb Hct MCV MCH RDW Plt Count Lymph % (Auto) Lymph # Seg Neutrophils % Seg Neuts % (Manual) Lymphocytes % (Manual) Monocytes % (Manual) Nucleated RBC % Seg Neutrophils # Seg Neutrophils # Man Lymphocytes # (Manual) Monocytes # (Manual) PT INR POC ABG pH 7.308 L POC ABG pCO2 POC ABG pO2 183 H Sodium Potassium Chloride Carbon Dioxide BUN Creatinine Glucose POC Glucose 150 H 162 H Lactic Acid Calcium Total Bilirubin AST Total Creatine Kinase C-Reactive Protein Total Protein Albumin TSH Free T4 Urine WBC (Auto) Crossmatch 12/09/18 12/09/18 12/09/18 15:54 15:54 16:40 WBC RBC Hgb Hct MCV MCH RDW Plt Count Lymph % (Auto) Lymph # Seg Neutrophils % Seg Neuts % (Manual) Lymphocytes % (Manual) Monocytes % (Manual) Nucleated RBC % Seg Neutrophils # Seg Neutrophils # Man Lymphocytes # (Manual) Monocytes # (Manual) PT INR POC ABG pH POC ABG pCO2 POC ABG pO2 Sodium Potassium Chloride Carbon Dioxide BUN Creatinine Glucose POC Glucose 197 H Lactic Acid Calcium Total Bilirubin AST Total Creatine Kinase C-Reactive Protein Total Protein Albumin TSH 0.268 L Free T4 0.58 L Urine WBC (Auto) Crossmatch 12/09/18 12/09/18 12/09/18 18:18 18:18 21:51 WBC RBC Hgb Hct MCV MCH RDW Plt Count Lymph % (Auto) Lymph # Seg Neutrophils % Seg Neuts % (Manual) Lymphocytes % (Manual) Monocytes % (Manual) Nucleated RBC % Seg Neutrophils # Seg Neutrophils # Man Lymphocytes # (Manual) Monocytes # (Manual) PT INR POC ABG pH POC ABG pCO2 POC ABG pO2 Sodium Potassium Chloride 108.2 H Carbon Dioxide 16 L BUN 89 H Creatinine 2.3 H Glucose 180 H POC Glucose 198 H Lactic Acid Calcium 7.9 L Total Bilirubin AST Total Creatine Kinase C-Reactive Protein 19.60 H Total Protein Albumin TSH Free T4 Urine WBC (Auto) Crossmatch 12/10/18 12/10/18 12/10/18 01:59 04:14 04:38 WBC 11.5 H RBC Hgb Hct MCV 75 L MCH 25 L RDW 21.1 H Plt Count 81 L Lymph % (Auto) 5.6 L Lymph # 0.6 L Seg Neutrophils % 89.8 H Seg Neuts % (Manual) Lymphocytes % (Manual) Monocytes % (Manual) Nucleated RBC % Seg Neutrophils # 10.3 H Seg Neutrophils # Man Lymphocytes # (Manual) Monocytes # (Manual) PT INR POC ABG pH 7.273 L POC ABG pCO2 32.1 L POC ABG pO2 161 H Sodium Potassium Chloride Carbon Dioxide BUN Creatinine Glucose POC Glucose 219 H Lactic Acid Calcium Total Bilirubin AST Total Creatine Kinase C-Reactive Protein Total Protein Albumin TSH Free T4 Urine WBC (Auto) Crossmatch 12/10/18 12/10/18 12/10/18 04:38 05:07 07:26 WBC RBC Hgb Hct MCV MCH RDW Plt Count Lymph % (Auto) Lymph # Seg Neutrophils % Seg Neuts % (Manual) Lymphocytes % (Manual) Monocytes % (Manual) Nucleated RBC % Seg Neutrophils # Seg Neutrophils # Man Lymphocytes # (Manual) Monocytes # (Manual) PT INR POC ABG pH POC ABG pCO2 POC ABG pO2 Sodium Potassium Chloride 112.5 H Carbon Dioxide 14 L BUN 94 H Creatinine 2.4 H Glucose 207 H POC Glucose 221 H 212 H Lactic Acid Calcium 7.7 L Total Bilirubin AST Total Creatine Kinase C-Reactive Protein Total Protein Albumin TSH Free T4 Urine WBC (Auto) Crossmatch 12/10/18 12/10/18 12/10/18 10:40 11:15 14:21 WBC RBC Hgb Hct MCV MCH RDW Plt Count Lymph % (Auto) Lymph # Seg Neutrophils % Seg Neuts % (Manual) Lymphocytes % (Manual) Monocytes % (Manual) Nucleated RBC % Seg Neutrophils # Seg Neutrophils # Man Lymphocytes # (Manual) Monocytes # (Manual) PT 21.4 H INR 1.73 H POC ABG pH 7.214 L POC ABG pCO2 32.8 L POC ABG pO2 Sodium Potassium Chloride Carbon Dioxide BUN Creatinine Glucose POC Glucose 227 H Lactic Acid Calcium Total Bilirubin AST Total Creatine Kinase C-Reactive Protein Total Protein Albumin TSH Free T4 Urine WBC (Auto) Crossmatch 12/10/18 12/10/18 12/11/18 15:47 22:38 03:36 WBC RBC Hgb Hct MCV MCH RDW Plt Count Lymph % (Auto) Lymph # Seg Neutrophils % Seg Neuts % (Manual) Lymphocytes % (Manual) Monocytes % (Manual) Nucleated RBC % Seg Neutrophils # Seg Neutrophils # Man Lymphocytes # (Manual) Monocytes # (Manual) PT INR POC ABG pH POC ABG pCO2 26.2 L POC ABG pO2 138 H Sodium Potassium Chloride Carbon Dioxide BUN Creatinine Glucose POC Glucose 202 H 259 H Lactic Acid Calcium Total Bilirubin AST Total Creatine Kinase C-Reactive Protein Total Protein Albumin TSH Free T4 Urine WBC (Auto) Crossmatch 12/11/18 12/11/18 12/11/18 04:12 05:00 06:19 WBC RBC Hgb Hct MCV MCH RDW Plt Count Lymph % (Auto) Lymph # Seg Neutrophils % Seg Neuts % (Manual) Lymphocytes % (Manual) Monocytes % (Manual) Nucleated RBC % Seg Neutrophils # Seg Neutrophils # Man Lymphocytes # (Manual) Monocytes # (Manual) PT 19.5 H INR 1.54 H POC ABG pH POC ABG pCO2 24.6 L POC ABG pO2 119 H Sodium Potassium Chloride Carbon Dioxide BUN Creatinine Glucose POC Glucose 174 H Lactic Acid Calcium Total Bilirubin AST Total Creatine Kinase C-Reactive Protein Total Protein Albumin TSH Free T4 Urine WBC (Auto) Crossmatch 12/11/18 12/11/18 12/11/18 11:10 11:10 18:10 WBC 14.3 H RBC Hgb Hct MCV 73 L MCH 24 L RDW 21.5 H Plt Count Lymph % (Auto) Lymph # Seg Neutrophils % Seg Neuts % (Manual) Lymphocytes % (Manual) Monocytes % (Manual) Nucleated RBC % Seg Neutrophils # Seg Neutrophils # Man Lymphocytes # (Manual) Monocytes # (Manual) PT INR POC ABG pH POC ABG pCO2 POC ABG pO2 Sodium Potassium Chloride 110.5 H Carbon Dioxide 15 L BUN 101 H Creatinine 2.4 H Glucose 119 H POC Glucose 147 H Lactic Acid Calcium 7.7 L Total Bilirubin AST Total Creatine Kinase C-Reactive Protein Total Protein Albumin TSH Free T4 Urine WBC (Auto) Crossmatch 12/11/18 12/12/18 12/12/18 23:25 05:37 06:03 WBC RBC Hgb Hct MCV MCH RDW Plt Count Lymph % (Auto) Lymph # Seg Neutrophils % Seg Neuts % (Manual) Lymphocytes % (Manual) Monocytes % (Manual) Nucleated RBC % Seg Neutrophils # Seg Neutrophils # Man Lymphocytes # (Manual) Monocytes # (Manual) PT INR POC ABG pH 7.346 L POC ABG pCO2 28.3 L POC ABG pO2 120 H Sodium Potassium Chloride Carbon Dioxide BUN Creatinine Glucose POC Glucose 143 H 154 H Lactic Acid Calcium Total Bilirubin AST Total Creatine Kinase C-Reactive Protein Total Protein Albumin TSH Free T4 Urine WBC (Auto) Crossmatch 12/12/18 12/12/18 12/12/18 08:00 08:00 08:00 WBC 16.2 H RBC Hgb Hct MCV 74 L MCH 25 L RDW 21.9 H Plt Count 21 L Lymph % (Auto) Lymph # Seg Neutrophils % Seg Neuts % (Manual) Lymphocytes % (Manual) Monocytes % (Manual) Nucleated RBC % Seg Neutrophils # Seg Neutrophils # Man Lymphocytes # (Manual) Monocytes # (Manual) PT 20.2 H INR 1.61 H POC ABG pH POC ABG pCO2 POC ABG pO2 Sodium Potassium Chloride 107.4 H Carbon Dioxide 16 L BUN 101 H Creatinine 2.3 H Glucose 169 H POC Glucose Lactic Acid Calcium 8.2 L Total Bilirubin AST Total Creatine Kinase C-Reactive Protein Total Protein Albumin TSH Free T4 Urine WBC (Auto) Crossmatch 12/12/18 12/12/18 12/13/18 12:59 18:01 04:28 WBC 18.6 H RBC Hgb Hct MCV 74 L MCH 24 L RDW 21.8 H Plt Count 34 L Lymph % (Auto) Lymph # Seg Neutrophils % Seg Neuts % (Manual) 97.0 H Lymphocytes % (Manual) 2.0 L Monocytes % (Manual) Nucleated RBC % 1.0 H Seg Neutrophils # Seg Neutrophils # Man 18.0 H Lymphocytes # (Manual) 0.4 L Monocytes # (Manual) PT INR POC ABG pH POC ABG pCO2 POC ABG pO2 Sodium Potassium Chloride Carbon Dioxide BUN Creatinine Glucose POC Glucose 158 H 123 H Lactic Acid Calcium Total Bilirubin AST Total Creatine Kinase C-Reactive Protein Total Protein Albumin TSH Free T4 Urine WBC (Auto) Crossmatch 12/13/18 12/13/18 12/13/18 04:28 04:45 19:17 WBC RBC Hgb Hct MCV MCH RDW Plt Count Lymph % (Auto) Lymph # Seg Neutrophils % Seg Neuts % (Manual) Lymphocytes % (Manual) Monocytes % (Manual) Nucleated RBC % Seg Neutrophils # Seg Neutrophils # Man Lymphocytes # (Manual) Monocytes # (Manual) PT INR POC ABG pH 7.327 L POC ABG pCO2 31.1 L POC ABG pO2 136 H Sodium Potassium Chloride 112.0 H Carbon Dioxide 17 L BUN 97 H Creatinine 2.2 H Glucose POC Glucose 106 H Lactic Acid Calcium 8.1 L Total Bilirubin AST Total Creatine Kinase C-Reactive Protein Total Protein Albumin TSH Free T4 Urine WBC (Auto) Crossmatch 12/13/18 12/14/18 12/14/18 23:24 03:35 03:35 WBC 22.0 H RBC Hgb Hct MCV 75 L MCH 24 L RDW 22.2 H Plt Count 44 L Lymph % (Auto) Lymph # Seg Neutrophils % Seg Neuts % (Manual) 96.0 H Lymphocytes % (Manual) 3.0 L Monocytes % (Manual) Nucleated RBC % Seg Neutrophils # Seg Neutrophils # Man 21.1 H Lymphocytes # (Manual) 0.7 L Monocytes # (Manual) PT INR POC ABG pH POC ABG pCO2 POC ABG pO2 Sodium 136 L Potassium Chloride 107.2 H Carbon Dioxide 15 L BUN 87 H Creatinine 1.7 H Glucose 156 H POC Glucose 108 H Lactic Acid Calcium 7.7 L Total Bilirubin AST Total Creatine Kinase C-Reactive Protein Total Protein Albumin TSH Free T4 Urine WBC (Auto) Crossmatch 12/14/18 12/14/18 12/14/18 04:58 05:37 12:10 WBC RBC Hgb Hct MCV MCH RDW Plt Count Lymph % (Auto) Lymph # Seg Neutrophils % Seg Neuts % (Manual) Lymphocytes % (Manual) Monocytes % (Manual) Nucleated RBC % Seg Neutrophils # Seg Neutrophils # Man Lymphocytes # (Manual) Monocytes # (Manual) PT INR POC ABG pH 7.301 L POC ABG pCO2 32.6 L POC ABG pO2 138 H Sodium Potassium Chloride Carbon Dioxide BUN Creatinine Glucose POC Glucose 178 H 208 H Lactic Acid Calcium Total Bilirubin AST Total Creatine Kinase C-Reactive Protein Total Protein Albumin TSH Free T4 Urine WBC (Auto) Crossmatch 12/14/18 12/14/18 12/15/18 17:44 23:16 03:37 WBC RBC Hgb Hct MCV MCH RDW Plt Count Lymph % (Auto) Lymph # Seg Neutrophils % Seg Neuts % (Manual) Lymphocytes % (Manual) Monocytes % (Manual) Nucleated RBC % Seg Neutrophils # Seg Neutrophils # Man Lymphocytes # (Manual) Monocytes # (Manual) PT INR POC ABG pH 7.325 L POC ABG pCO2 28.6 L POC ABG pO2 Sodium Potassium Chloride Carbon Dioxide BUN Creatinine Glucose POC Glucose 172 H 123 H Lactic Acid Calcium Total Bilirubin AST Total Creatine Kinase C-Reactive Protein Total Protein Albumin TSH Free T4 Urine WBC (Auto) Crossmatch 12/15/18 12/15/18 12/15/18 05:30 05:30 05:43 WBC 20.1 H RBC Hgb 9.5 L Hct 29.2 L MCV 74 L MCH 24 L RDW 22.7 H Plt Count 48 L Lymph % (Auto) Lymph # Seg Neutrophils % Seg Neuts % (Manual) 96.0 H Lymphocytes % (Manual) 1.0 L Monocytes % (Manual) Nucleated RBC % Seg Neutrophils # Seg Neutrophils # Man 19.3 H Lymphocytes # (Manual) 0.2 L Monocytes # (Manual) PT INR POC ABG pH POC ABG pCO2 POC ABG pO2 Sodium Potassium Chloride 110.8 H Carbon Dioxide 17 L BUN 83 H Creatinine 1.6 H Glucose 150 H POC Glucose 151 H Lactic Acid Calcium 7.7 L Total Bilirubin AST Total Creatine Kinase C-Reactive Protein Total Protein Albumin TSH Free T4 Urine WBC (Auto) Crossmatch 12/15/18 12/15/18 12/16/18 12:56 18:21 00:10 WBC RBC Hgb Hct MCV MCH RDW Plt Count Lymph % (Auto) Lymph # Seg Neutrophils % Seg Neuts % (Manual) Lymphocytes % (Manual) Monocytes % (Manual) Nucleated RBC % Seg Neutrophils # Seg Neutrophils # Man Lymphocytes # (Manual) Monocytes # (Manual) PT INR POC ABG pH POC ABG pCO2 POC ABG pO2 Sodium Potassium Chloride Carbon Dioxide BUN Creatinine Glucose POC Glucose 190 H 143 H 174 H Lactic Acid Calcium Total Bilirubin AST Total Creatine Kinase C-Reactive Protein Total Protein Albumin TSH Free T4 Urine WBC (Auto) Crossmatch 12/16/18 12/16/18 05:30 05:30 WBC 17.1 H RBC Hgb 9.1 L Hct 28.8 L MCV 76 L MCH 24 L RDW 23.5 H Plt Count 37 L Lymph % (Auto) Lymph # Seg Neutrophils % Seg Neuts % (Manual) Lymphocytes % (Manual) 9.0 L Monocytes % (Manual) 9.0 H Nucleated RBC % Seg Neutrophils # Seg Neutrophils # Man 9.6 H Lymphocytes # (Manual) Monocytes # (Manual) 1.5 H PT INR POC ABG pH POC ABG pCO2 POC ABG pO2 Sodium Potassium Chloride 110.8 H Carbon Dioxide 15 L BUN 81 H Creatinine 1.6 H Glucose 161 H POC Glucose Lactic Acid Calcium 7.6 L Total Bilirubin AST Total Creatine Kinase C-Reactive Protein Total Protein Albumin TSH Free T4 Urine WBC (Auto) Crossmatch Allied health notes reviewed: nursing
[2018-12-16] MEDS: SODIUM CHLORIDE FLUSH SYRINGE 10 ML IV PRN ×3 (10:07→14:22)
--- NOTE | 2018-12-16 10:54 | Progress Note ---
Assessment and Plan Continue management. The patient has been seen in conjunction with Dr. Harrell who agrees with the assessment and plan of care. - Patient Problems (1) Pericardial effusion Current Visit: Yes Status: Acute (2) Acute respiratory failure with hypoxia Current Visit: Yes Status: Acute (3) Sepsis Current Visit: Yes Status: Acute Qualifiers: Sepsis type: sepsis due to unspecified organism Qualified Code(s): A41.9 - Sepsis, unspecified organism (4) UTI (urinary tract infection) Current Visit: Yes Status: Acute (5) GI bleed Current Visit: Yes Status: Acute (6) History of CVA (cerebrovascular accident) Current Visit: Yes Status: Chronic (7) HLD (hyperlipidemia) Current Visit: Yes Status: Chronic Qualifiers: Hyperlipidemia type: mixed hyperlipidemia Qualified Code(s): E78.2 - Mixed hyperlipidemia (8) HTN (hypertension) Current Visit: Yes Status: Chronic Qualifiers: Hypertension type: essential hypertension Qualified Code(s): I10 - Essential (primary) hypertension (9) T2DM (type 2 diabetes mellitus) Current Visit: Yes Status: Chronic Qualifiers: Diabetes mellitus terminal supervisor insulin use: unspecified terminal supervisor insulin use status (10) MARYANN (acute kidney injury) Current Visit: Yes Status: Acute (11) Encephalopathy Current Visit: Yes Status: Acute Subjective Date of service: 12/16/18 Principal diagnosis: coffee-ground drainage Interval history: pt remains intubated, unresponsive. no family members at bedside. Objective Last Vital Signs Temp 97.4 F L 12/16/18 08:00 Pulse 60 12/16/18 10:00 Resp 18 12/16/18 10:00 BP 163/49 12/16/18 10:00 Pulse Ox 99 12/16/18 10:00 - Physical Examination General: Other (intubated, nonresponsive ) HEENT: Positive: Normocephaly, Mucus Membranes Moist Neck: Positive: neck supple, trachea midline Cardiac: Positive: Reg Rate and Rhythm, S1/S2 Lungs: Positive: Ventilated Respirations Neuro: Positive: Other (unresponsive) Abdomen: Positive: Soft, Active Bowel Sounds Skin: Positive: Clear. Negative: Rash Musculoskeletal: Normal Range of Motion Extremities: Absent: edema - Labs and Meds CBC 12/16/18 Range/Units 05:30 WBC 17.1 H (4.5-11.0) K/mm3 RBC 3.80 (3.65-5.03) M/mm3 Hgb 9.1 L (10.1-14.3) gm/dl Hct 28.8 L (30.3-42.9) % Plt Count 37 L (140-440) K/mm3 Comprehensive Metabolic Panel 12/16/18 Range/Units 05:30 Sodium 138 (137-145) mmol/L Potassium 4.3 (3.6-5.0) mmol/L Chloride 110.8 H (98-107) mmol/L Carbon Dioxide 15 L (22-30) mmol/L BUN 81 H (7-17) mg/dL Creatinine 1.6 H (0.7-1.2) mg/dL Glucose 161 H (65-100) mg/dL Calcium 7.6 L (8.4-10.2) mg/dL - Allied health notes Allied health notes reviewed: nursing
--- NOTE | 2018-12-16 11:21 | Progress Note ---
Assessment and Plan Cultures: Blood culture 12/08/2018 no growth so far. 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 - Blood culture 12/08/2018 no growth so far. - Lactate 4 on admission. 2) UTI: UA wbc 157, LE mod, on cefepime. Urine culture was not sent. 3) Right otitis media / mastoiditis: Per grand-daughter, she has been c/o right ear pain and drainage last week. Patient was putting Neosporin and perhaps ear stephanie in the patient's ear. On physical exam, patient found to have purulent discharge from the right ear, and stephanie were removed by ED physician. There was probable perforation of the right sided tympanic membrane per ED physician. Got dexamethasone. Now on cefepime and vanco 4) Acute encephalopathy: not better, from sepsis alone versus meningitis versus CVA. CT head extensive right MCA encephalomalcia, right mastoid opacities. 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 5) Acute respiratory failure: CXR showed small left pleural effusion. CT chest showed large pericardial effusion, LLL atelectasis v/s infiltrate and left pleural effusion. 6) ?GI bleed 7) Severe anemia: 8) Severe thrombocytopenia: from sepsis 9) Large pericardial effusion: TTE EF>50, no echo evidence of tamponade 10) Penicillin allergy: tolerating cefepime 11) CKD: renally adjusted antibiotics Recommendations: - LP for CSF cell count, diff, protein, glucose, culture, Gram stain, VDRL, HSV and Crypto ag, LP still awaited - continue cefepime, flagyl, vancomycin renally adjusted for now - overall poor prognosis - right ear culture ordered again MD [facility] C: [phone] O: [phone] F: [phone] Subjective Date of service: 12/16/18 Principal diagnosis: coffee-ground drainage Interval history: Remains on the vent. No fever. Objective - Exam Narrative Exam: Physical Exam: Constitutional: sedated, intubated Head, Ears, Nose: Normocephalic, atraumatic. nose normal. Right ear with slight purulent drainage Eyes: Conjunctivae/corneas clear. No icterus. No ptosis. Neck: Supple, no meningeal signs Oral: intubated Cardiovascular: S1, S2 normal. Respiratory: Good air entry, clear to auscultation bilaterally GI: Soft, non-tender; bowel sounds normal. No peritoneal signs Musculoskeletal: No pedal edema, no cyanosis. Skin: No rash or abscess Hem/Lymphatic: No palpable cervical or supraclavicular nodes. No lymphangitis Psych: no agitation Neurological: sedated, intubated, on vent - Constitutional Vitals: Vital Signs Temp Pulse Resp BP Pulse Ox 97.4 F L 60 18 163/49 99 12/16/18 08:00 12/16/18 10:00 12/16/18 10:00 12/16/18 10:00 12/16/18 10:00 Temperature -Last 24 Hours Temperature 97.4 F Temperature 98.7 F Temperature 99.0 F Temperature 98.9 F Temperature 99.2 F Temperature 99.4 F - Labs CBC & Chem 7: 12/16/18 05:30 12/16/18 05:30 Labs: Abnormal lab results 12/15/18 12/15/18 12/16/18 Range/Units 12:56 18:21 00:10 WBC (4.5-11.0) K/mm3 Hgb (10.1-14.3) gm/dl Hct (30.3-42.9) % MCV (79-97) fl MCH (28-32) pg RDW (13.2-15.2) % Plt Count (140-440) K/mm3 Lymphocytes % (Manual) (13.4-35.0) % Monocytes % (Manual) (0.0-7.3) % Seg Neutrophils # Man (1.8-7.7) K/mm3 Monocytes # (Manual) (0.0-0.8) K/mm3 Chloride (98-107) mmol/L Carbon Dioxide (22-30) mmol/L BUN (7-17) mg/dL Creatinine (0.7-1.2) mg/dL Glucose (65-100) mg/dL POC Glucose 190 H 143 H 174 H (70-105) Calcium (8.4-10.2) mg/dL 12/16/18 12/16/18 Range/Units 05:30 05:30 WBC 17.1 H (4.5-11.0) K/mm3 Hgb 9.1 L (10.1-14.3) gm/dl Hct 28.8 L (30.3-42.9) % MCV 76 L (79-97) fl MCH 24 L (28-32) pg RDW 23.5 H (13.2-15.2) % Plt Count 37 L (140-440) K/mm3 Lymphocytes % (Manual) 9.0 L (13.4-35.0) % Monocytes % (Manual) 9.0 H (0.0-7.3) % Seg Neutrophils # Man 9.6 H (1.8-7.7) K/mm3 Monocytes # (Manual) 1.5 H (0.0-0.8) K/mm3 Chloride 110.8 H (98-107) mmol/L Carbon Dioxide 15 L (22-30) mmol/L BUN 81 H (7-17) mg/dL Creatinine 1.6 H (0.7-1.2) mg/dL Glucose 161 H (65-100) mg/dL POC Glucose (70-105) Calcium 7.6 L (8.4-10.2) mg/dL - Imaging and cardiology Chest x-ray: report reviewed, image reviewed (?LLL pneumonia)
--- NOTE | 2018-12-16 15:59 | Progress Note ---
Assessment and Plan /Acute respiratory failure, intubated Likely from underlying severe sepsis, encephalopathy and pleural effusion? 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 CT chest showed large pericardial effusion, LLL atelectasis v/s infiltrate and left pleural effusion. Unable to wean off, may need trach and PEG /Acute encephalopathy: - likely from sepsis alone versus possible meningitis vs seizure. CT head extensive right MCA encephalomalcia, right mastoid opacities. neurology ordered EEG. 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 - when stable need LP for CSF cell count, diff, protein, glucose, culture, Gram stain, VDRL, HSV and Crypto ag, LP ordered by ID - continue cefepime, vancomycin renally adjusted for now /Sepsis likely due to UTI , right mastoiditis, aspiration PNA Blood cultures negative, right ear Cx negative Started on Cefepime, vanco, Now added flagyl for possible aspiration PNA /Hypotension/septic shock, resolved weaned off Levophed, BP now stable /Left lower lobe infiltrate, poss pneumonia - Treat with antibiotic for now /Large Pericardial effusion. TTE EF>50, no echo evidence of tamponade. cardiology consulted and recommended medical management for now /Coffee ground contents from NG aspirate/ Acute GI bleed cont Protonix, Consulted GI- H/h was 6.8 on admission but now stable after 2 units of PRBc transfusion cont to Monitor H/H, no plan for EGD now /MARYANN on CKD 3 baseline Cr around 1.2-1.5mg/dl likely due to underlying sepsis Monitor BMP, Consulted nephrology- no indication for HD now Cr improving with fluid /Acute on chronic anemia has h/o anemia requiring previous blood transfusions could be multifactorial (GI bleed and CKD), s/p 2 Units PRBC transfused on 12/08/18 / h/o Hypertension - BP now stable /Diabetes type 2, SSI as needed /FEN, on TF, not tolerating, will reduce TF rate, start on reglan iv Full code status. 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 In the ED, She was found in acute respiratory failure, requiring bag valve mask ventilation and hypotensive. Noted coffee-ground drainage from OG tube and patient also found to have purulent discharge from the right ear, and stephanie are removed by ED physician. Patient was intubated in the ER and admitted to the ICU for further evaluation and management. Blood culture 12/08/2018 no growth so far. CT head extensive right MCA encephalomalcia, right mastoid opacities. CXR showed small left pleural effusion. CT chest showed large pericardial effusion, LLL atelectasis v/s infiltrate and left pleural effusion. s/p 2 units PRBc transfusion on 12/08/18. renal consulted for worsening renal function. Unable to wean off, patient may need trach and PEG. Hospitalist Physical GEN: Intubated, On vent, not in acute distress, off sedation HEENT: Normocephalic, atraumatic, Neck: supple, No JVD Cardio: s1 and s2 positive Lungs: Clear to auscultation bilaterally, no wheeze Abd:soft, non tender, non distended, normal bowel sounds Ext: No edema, no clubbing, no cyanosis Neuro: Intubated, does not follow commend Skin: No rash The high probability of a clinically significant, sudden or life threatening deterioration of the [multiple] system(s) required my full and direct attention, intervention and personal management. The aggregate critical care time was [35] minutes. This time is in addition to time spent performing reported procedures but includes the following: [x] Data Review and interpretation [x] Patient assessment and monitoring of vital signs [x] Documentation [x] Medication orders and management Subjective Date of service: 12/16/18 Principal diagnosis: coffee-ground drainage Interval history: Patient seen and examined. Medical records and medication list reviewed. No acute event overnight noted by the RN. Patient remained intubated, off sedation but unresponsive Per RN had more residual from TF, Discussed plan of care at bedside with RN. Objective - Constitutional Vitals: Vital Signs - 12hr 12/16/18 12/16/18 12/16/18 04:00 04:43 05:00 Temperature 98.7 F Pulse Rate 70 72 71 Pulse Rate [ Anterior Bilateral Throughout] Pulse Rate [ Apical] Respiratory 19 8 L Rate Respiratory Rate [Anterior Bilateral Throughout] Blood Pressure 172/76 184/62 178/56 O2 Sat by Pulse 99 100 98 Oximetry 12/16/18 12/16/18 12/16/18 05:32 06:00 07:01 Temperature Pulse Rate 67 65 59 L Pulse Rate [ Anterior Bilateral Throughout] Pulse Rate [ Apical] Respiratory 18 14 Rate Respiratory Rate [Anterior Bilateral Throughout] Blood Pressure 164/53 164/53 129/49 O2 Sat by Pulse 96 98 Oximetry 12/16/18 12/16/18 12/16/18 07:35 07:36 07:50 Temperature Pulse Rate 60 Pulse Rate [ 60 60 Anterior Bilateral Throughout] Pulse Rate [ Apical] Respiratory Rate Respiratory 18 18 Rate [Anterior Bilateral Throughout] Blood Pressure 129/49 O2 Sat by Pulse 100 Oximetry 12/16/18 12/16/18 12/16/18 08:00 09:00 10:00 Temperature 97.4 F L Pulse Rate 60 66 60 Pulse Rate [ Anterior Bilateral Throughout] Pulse Rate [ 60 Apical] Respiratory 18 18 18 Rate Respiratory Rate [Anterior Bilateral Throughout] Blood Pressure 124/52 142/46 163/49 O2 Sat by Pulse 99 98 99 Oximetry 12/16/18 12/16/18 12/16/18 11:00 11:26 12:00 Temperature 96.4 F L Pulse Rate 62 60 60 Pulse Rate [ Anterior Bilateral Throughout] Pulse Rate [ 60 Apical] Respiratory 18 18 Rate Respiratory Rate [Anterior Bilateral Throughout] Blood Pressure 140/50 140/50 111/40 O2 Sat by Pulse 98 100 99 Oximetry 12/16/18 12/16/18 12/16/18 13:01 13:50 14:00 Temperature Pulse Rate 60 60 Pulse Rate [ 60 Anterior Bilateral Throughout] Pulse Rate [ Apical] Respiratory 18 18 Rate Respiratory 18 Rate [Anterior Bilateral Throughout] Blood Pressure 122/42 129/45 O2 Sat by Pulse 100 99 Oximetry 12/16/18 12/16/18 14:20 15:00 Temperature Pulse Rate 60 Pulse Rate [ 60 Anterior Bilateral Throughout] Pulse Rate [ Apical] Respiratory 9 L Rate Respiratory 18 Rate [Anterior Bilateral Throughout] Blood Pressure 131/46 O2 Sat by Pulse 99 Oximetry - Labs CBC & Chem 7: 12/16/18 05:30 12/16/18 05:30 Labs: Abnormal lab results 12/15/18 12/16/18 12/16/18 Range/Units 18:21 00:10 05:30 WBC 17.1 H (4.5-11.0) K/mm3 Hgb 9.1 L (10.1-14.3) gm/dl Hct 28.8 L (30.3-42.9) % MCV 76 L (79-97) fl MCH 24 L (28-32) pg RDW 23.5 H (13.2-15.2) % Plt Count 37 L (140-440) K/mm3 Lymphocytes % (Manual) 9.0 L (13.4-35.0) % Monocytes % (Manual) 9.0 H (0.0-7.3) % Seg Neutrophils # Man 9.6 H (1.8-7.7) K/mm3 Monocytes # (Manual) 1.5 H (0.0-0.8) K/mm3 Chloride (98-107) mmol/L Carbon Dioxide (22-30) mmol/L BUN (7-17) mg/dL Creatinine (0.7-1.2) mg/dL Glucose (65-100) mg/dL POC Glucose 143 H 174 H (70-105) Calcium (8.4-10.2) mg/dL 12/16/18 Range/Units 05:30 WBC (4.5-11.0) K/mm3 Hgb (10.1-14.3) gm/dl Hct (30.3-42.9) % MCV (79-97) fl MCH (28-32) pg RDW (13.2-15.2) % Plt Count (140-440) K/mm3 Lymphocytes % (Manual) (13.4-35.0) % Monocytes % (Manual) (0.0-7.3) % Seg Neutrophils # Man (1.8-7.7) K/mm3 Monocytes # (Manual) (0.0-0.8) K/mm3 Chloride 110.8 H (98-107) mmol/L Carbon Dioxide 15 L (22-30) mmol/L BUN 81 H (7-17) mg/dL Creatinine 1.6 H (0.7-1.2) mg/dL Glucose 161 H (65-100) mg/dL POC Glucose (70-105) Calcium 7.6 L (8.4-10.2) mg/dL
[2018-12-17] MEDS ORDERED: REGLAN IV PRN (00:06)
[2018-12-17] MEDS: HumaLOG SUB-Q SCH ×3 (00:44→12:30)
[2018-12-17] MEDS: DUONEB *Not for PRN Use IH SCH ×4 (02:29→19:00)
[2018-12-17 05:12] LABS: Hematocrit 29.7 % (30.3-42.9); Hemoglobin 9.5 gm/dl (10.1-14.3); Mean Corpuscular HGB Conc 32 % (30-34); Mean Corpuscular Volume 76 fl (79-97); Red Blood Count 3.91 M/mm3 (3.65-5.03)
[2018-12-17 05:30] LABS: BUN/Creatinine Ratio 52; Blood Urea Nitrogen 83 mg/dL (7-17); Calcium 7.8 mg/dL (8.4-10.2); Hemolysis Index 472
[2018-12-17 05:49] LABS: Red Cell Distribution Width 24.4 % (13.2-15.2)
[2018-12-17 05:50] LABS: Platelet Count 26 K/mm3 (140-440)
[2018-12-17] MEDS: FLAGYL 500 MG/100 ML 500 MG/100 ML BAG IV SCH (05:55)
[2018-12-17] MEDS: APRESOLINE PO SCH ×3 (05:56→21:53)
[2018-12-17 07:43] LABS: Band Neutrophils # (Manual) 4.2 K/mm3; Basophils % (Manual) 0 % (0.0-1.8); Eosinophils % (Manual) 0 % (0.0-4.3); Total Cells Counted 100
[2018-12-17 07:44] LABS: Anisocytosis 2+; Burr Cells Few; Hypochromasia 1+; Macrocytosis 1+; Ovalocytes 1+; Platelet Estimate Consistent w Auto
[2018-12-17] MEDS: CORTISPORIN AU SCH ×3 (07:50→21:55)
--- NOTE | 2018-12-17 08:32 | Progress Note ---
Assessment and Plan - Patient Problems (1) Acute kidney failure with tubular necrosis Current Visit: Yes Status: Acute Plan to address problem: Kidney function is unchanged. Patient has peripheral edema. Positive fluid balance but incomplete collection of urine output. Follow-up electrolytes and renal function (2) Acidosis Current Visit: Yes Status: Acute Plan to address problem: Bicarbonate is quite low. Supplement enterally (3) Acute encephalopathy Current Visit: Yes Status: Acute Plan to address problem: Toxic/metabolic encephalopathy. Monitor mental status. 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 No family at the bedside. Patient is still unresponsive. Objective - Exam Narrative Exam: Elderly -[place] female lying in bed intubated on the ventilator HEENT: NCAT, endotracheal tube intact, tongue protruding Neck: Supple, no venous distention CVS: S1S2 RRR with no murmur, rub or gallop Chest: Clear to auscultation Abdomen: Protuberant, soft, nontender, no organomegaly, bowel sounds are present Extremities: 2+ edema Skin is warm and dry Genitourinary deferred Neuro: Does not open eyes, not following commands - Vital Signs Vital signs: Vital Signs - 12hr 12/16/18 12/16/18 12/16/18 21:00 21:24 22:00 Temperature Pulse Rate 60 62 60 Pulse Rate [ Anterior Bilateral Throughout] Pulse Rate [ Apical] Respiratory 18 18 Rate Respiratory Rate [Anterior Bilateral Throughout] Blood Pressure 121/47 121/47 115/44 O2 Sat by Pulse 100 99 Oximetry 12/16/18 12/16/18 12/16/18 23:00 23:25 23:38 Temperature Pulse Rate 62 60 60 Pulse Rate [ Anterior Bilateral Throughout] Pulse Rate [ Apical] Respiratory 18 18 Rate Respiratory Rate [Anterior Bilateral Throughout] Blood Pressure 115/48 115/48 115/48 O2 Sat by Pulse 99 100 100 Oximetry 12/17/18 12/17/18 12/17/18 00:00 00:01 01:01 Temperature 89.2 F L Pulse Rate 60 60 60 Pulse Rate [ Anterior Bilateral Throughout] Pulse Rate [ 60 Apical] Respiratory 18 16 18 Rate Respiratory Rate [Anterior Bilateral Throughout] Blood Pressure 134/72 104/42 O2 Sat by Pulse 100 99 99 Oximetry 12/17/18 12/17/18 12/17/18 02:00 03:00 04:00 Temperature 91.5 F L Pulse Rate 60 60 63 Pulse Rate [ 64 Anterior Bilateral Throughout] Pulse Rate [ 62 Apical] Respiratory 18 19 17 Rate Respiratory 20 Rate [Anterior Bilateral Throughout] Blood Pressure 133/53 125/44 133/58 O2 Sat by Pulse 99 99 98 Oximetry 12/17/18 12/17/18 12/17/18 05:00 05:56 06:01 Temperature Pulse Rate 64 69 71 Pulse Rate [ Anterior Bilateral Throughout] Pulse Rate [ Apical] Respiratory 16 15 Rate Respiratory Rate [Anterior Bilateral Throughout] Blood Pressure 133/53 143/47 164/50 O2 Sat by Pulse 99 98 Oximetry 12/17/18 12/17/18 12/17/18 07:00 07:37 07:40 Temperature Pulse Rate 65 66 Pulse Rate [ 66 Anterior Bilateral Throughout] Pulse Rate [ Apical] Respiratory 9 L Rate Respiratory 19 Rate [Anterior Bilateral Throughout] Blood Pressure 150/57 150/57 O2 Sat by Pulse 99 100 Oximetry 12/17/18 08:00 Temperature 93.6 F L Pulse Rate 65 Pulse Rate [ Anterior Bilateral Throughout] Pulse Rate [ 64 Apical] Respiratory 19 Rate Respiratory Rate [Anterior Bilateral Throughout] Blood Pressure 153/55 O2 Sat by Pulse 99 Oximetry - Lab 12/17/18 04:24 12/17/18 06:42 Most recent lab results Calcium 8.0 mg/dL (8.4-10.2) L 12/17/18 06:42 Medications & Allergies - Medications Allergies/Adverse Reactions: Allergies Penicillins Allergy (Verified 12/08/18 13:13) Hives Home Medications: Home Medications Medication Instructions Recorded Confirmed Last Taken Type ALBUTEROL Inhaler (OR & NICU) 2 puff IH QID PRN #1 inhalation 12/21/16 12/08/18 Unknown Rx [Proair] Albuterol Sulfate [Albuterol 0.63% 0.63 mg IH TID PRN #90 ml 12/21/16 12/08/18 Unknown Rx NEBS] Amlodipine Besylate [Norvasc] 10 mg PO DAILY #90 tablet 12/21/16 12/08/18 Unknown Rx AtorvaSTATin [Lipitor] 20 mg PO QHS #90 tablet 12/21/16 12/08/18 Unknown Rx Hydralazine HCl [Apresoline TAB] 50 mg PO TID #90 tablet 12/21/16 12/08/18 Unknown Rx Metoprolol [Lopressor TAB] 25 mg PO BID #90 tablet 12/21/16 12/08/18 Unknown Rx Promethazine /Codeine 5 ml PO Q6H PRN #100 ml 12/21/16 12/08/18 Unknown Rx [Phenergan/Codeine 6.25-10 mg/5 ml] Active Medications: Generic Name Dose Route Start Last Admin Trade Name Freq PRN Reason Stop Dose Admin Acetaminophen 650 mg 12/09/18 01:00 12/09/18 10:00 Tylenol SC 650 mg Q4H PRN Administration Pain MILD(1-3)/Fever >100.5/TURNER Albuterol 2.5 mg 12/09/18 00:31 Proventil IH Q4HRT PRN Shortness Of Breath Albuterol/Ipratropium 1 ampul 12/09/18 02:00 12/17/18 07:40 Duoneb *Not For Prn Use* IH 1 ampul Q6HRT KOLE Administration Lipase/Protease/Amylase 1 each 12/09/18 04:05 Pancreazbarbara Pena 10,500 Unit FEEDTUBE PRN PRN For Clogged Feeding Tube Hydralazine HCl 50 mg 12/10/18 14:00 12/17/18 05:56 Apresoline PO 50 mg Q8HR KOLE Administration Hydrophilic Ointment 1 applic 12/14/18 13:00 Vaseline Lip Therapy TP DIRECT PRN Dry tongue Metronidazole 500 mg in 100 mls @ 100 mls/hr 12/13/18 14:00 12/17/18 05:55 Flagyl 500 Mg/100 Ml IV 100 mls/hr Q8HR KOLE Administration Protocol Cefepime HCl 2 gm in 100 mls @ 200 mls/hr 12/15/18 14:00 12/16/18 09:18 Maxipime/Ns 2 Gm/100 Ml IV 200 mls/hr Q24HR KOLE Administration Protocol Insulin Human Lispro 0 unit 12/11/18 12:00 12/17/18 05:56 Humalog SUB-Q Not Given Q6HR [facility] Protocol Labetalol HCl 10 mg 12/09/18 16:18 12/15/18 12:32 Normodyne IV 10 mg Q4H PRN Administration Hypertension Lansoprazole 30 mg 12/12/18 10:00 12/16/18 21:24 Prevacid Solutab FEEDTUBE 30 mg BID KOLE Administration Metoclopramide HCl 5 mg 12/17/18 00:06 12/17/18 00:51 Reglan IV 5 mg Q6H PRN Administration Nausea And Vomiting Multi-Ingred Cream/Lotion/Oil/Oint 1 applic 12/08/18 13:31 Artificial Tears Ophth Oint OU Q4HR PRN Dry Eye(s) Neomycin/Polymyxin/Hydrocortisone 4 drops 12/09/18 08:00 12/17/18 07:50 Cortisporin AU 12/18/18 07:59 4 drops TID KOLE Administration Ondansetron HCl 4 mg 12/09/18 00:31 Zofran IV Q8H PRN Nausea And Vomiting Simple Syrup 15 ml 12/09/18 04:05 Simple Syrup FEEDTUBE PRN PRN Hypoglycemia Simple Syrup 30 ml 12/09/18 04:05 Simple Syrup FEEDTUBE PRN PRN Hypoglycemia Sodium Bicarbonate 325 mg 12/09/18 04:05 Sodium Bicarbonate FEEDTUBE PRN PRN For Clogged Feeding Tube Sodium Chloride 10 ml 12/09/18 10:00 12/16/18 21:25 Sodium Chloride Flush Syringe 10 Ml IV 10 ml BID KOLE Administration Sodium Chloride 10 ml 12/09/18 00:31 12/16/18 14:22 Sodium Chloride Flush Syringe 10 Ml IV 10 ml PRN PRN Administration LINE FLUSH
--- NOTE | 2018-12-17 09:52 | Progress Note ---
Assessment and Plan Assessment and plan: cute respiratory failure, intubated Likely from underlying severe sepsis, encephalopathy and pleural effusion? [employer]/Pulm consulted Continue nebs, continue antibiotics CXR showed small left pleural effusion. CT chest showed large pericardial effusion, LLL atelectasis v/s infiltrate and left pleural effusion. Unable to wean off, may need trach and PEG /Acute encephalopathy: - likely from sepsis alone versus possible meningitis vs seizure. CT head extensive right MCA encephalomalcia, right mastoid opacities. neurology ordered EEG. 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 - when stable need LP for CSF cell count, diff, protein, glucose, culture, Gram stain, VDRL, HSV and Crypto ag, LP ordered by ID - continue cefepime, vancomycin renally adjusted for now /Sepsis likely due to UTI , right mastoiditis, aspiration PNA Blood cultures negative, right ear Cx negative Started on Cefepime, vanco, Now added flagyl for possible aspiration PNA /Hypotension/septic shock, resolved weaned off Levophed, BP now stable /Left lower lobe infiltrate, poss pneumonia - Treat with antibiotic for now /Large Pericardial effusion. TTE EF>50, no echo evidence of tamponade. cardiology consulted and recommended medical management for now /Coffee ground contents from NG aspirate/ Acute GI bleed cont Protonix, Consulted GI- H/h was 6.8 on admission but now stable after 2 units of PRBc transfusion cont to Monitor H/H, no plan for EGD now /MARYANN on CKD 3 baseline Cr around 1.2-1.5mg/dl likely due to underlying sepsis Monitor BMP, Consulted nephrology- no indication for HD now Cr improving with fluid /Acute on chronic anemia has h/o anemia requiring previous blood transfusions could be multifactorial (GI bleed and CKD), s/p 2 Units PRBC transfused on 12/08/18 / h/o Hypertension - BP now stable /Diabetes type 2, SSI as needed /FEN, on TF, not tolerating, Nurse called me with high residuals about 250ml today when on only 20ml/hr. Will hold tube feeds, give scheduled reglan and resume later Full code status. 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 In the ED, She was found in acute respiratory failure, requiring bag valve mask ventilation and hypotensive. Noted coffee- ground drainage from OG tube and patient also found to have purulent discharge from the right ear, and stephanie are removed by ED physician. Patient was intubated in the ER and admitted to the ICU for further evaluation and management. Blood culture 12/08/[address] no [address] so [address]. [address] head extensive right MCA encephalomalcia, right mastoid opacities. CXR showed small left pleural effusion. CT chest showed large pericardial effusion, LLL atelectasis v/s infiltrate and left pleural effusion. s/p 2 units PRBc transfusion on 12/08/18. renal consulted for worsening renal function. Unable to wean off, patient may need trach and PEG. Called by Nurse that she has high residuals on tube feed Hospitalist Physical - Physical exam Narrative exam: GEN: Intubated, On vent, not in acute distress HEENT: Normocephalic, atraumatic, Neck: supple, No JVD Lungs: Clear to auscultation bilaterally, no wheeze Abd:soft, non tender, non distended, normal bowel sounds Ext: No edema, no clubbing, no cyanosis Neuro: Intubated,sedated Skin:No rash - Constitutional Vitals: Temp Pulse Resp BP Pulse Ox 93.6 F L 63 9 L 141/48 99 12/17/18 08:00 12/17/18 09:00 12/17/18 09:00 12/17/18 09:00 12/17/18 09:00 General appearance: Present: well-nourished Results - Labs CBC & Chem 7: 12/17/18 04:24 12/17/18 06:42 Labs: Laboratory Last Values WBC 19.2 K/mm3 (4.5-11.0) H 12/17/18 04:24 RBC 3.91 M/mm3 (3.65-5.03) 12/17/18 04:24 Hgb 9.5 gm/dl (10.1-14.3) L 12/17/18 04:24 Hct 29.7 % (30.3-42.9) L 12/17/18 04:24 MCV 76 fl (79-97) L 12/17/18 04:24 MCH 24 pg (28-32) L 12/17/18 04:24 MCHC 32 % (30-34) 12/17/18 04:24 RDW 24.4 % (13.2-15.2) H 12/17/18 04:24 Plt Count 26 K/mm3 (140-440) L 12/17/18 04:24 Lymph % (Auto) 5.6 % (13.4-35.0) L 12/10/18 04:38 [place] % (Auto) 4.2 % (0.0-7.3) 12/10/18 04:38 Eos % (Auto) 0.3 % (0.0-4.3) 12/10/18 04:38 Baso % (Auto) 0.1 % (0.0-1.8) 12/10/18 04:38 Lymph # 0.6 K/mm3 (1.2-5.4) L 12/10/18 04:38 [place] # 0.5 K/mm3 (0.0-0.8) 12/10/18 04:38 Eos # 0.0 K/mm3 (0.0-0.4) 12/10/18 04:38 Baso # 0.0 K/mm3 (0.0-0.1) 12/10/18 04:38 Add Manual Diff Complete 12/17/18 04:24 Total Counted 100 12/17/18 04:24 Seg Neutrophils % Configuration Management Architect 12/17/18 04:24 Seg Neuts % (Manual) 68.0 % (40.0-70.0) 12/17/18 04:24 Band Neutrophils % 22.0 % 12/17/18 04:24 Lymphocytes % (Manual) 6.0 % (13.4-35.0) L 12/17/18 04:24 Reactive Lymphs % (Man) 0 % 12/17/18 04:24 Monocytes % (Manual) 4.0 % (0.0-7.3) 12/17/18 04:24 Eosinophils % (Manual) 0 % (0.0-4.3) 12/17/18 04:24 Basophils % (Manual) 0 % (0.0-1.8) 12/17/18 04:24 Metamyelocytes % 0 % 12/17/18 04:24 Myelocytes % 0 % 12/17/18 04:24 Promyelocytes % 0 % 12/17/18 04:24 Blast Cells % 0 % 12/17/18 04:24 Nucleated RBC % Not Reportable 12/17/18 04:24 Seg Neutrophils # 10.3 K/mm3 (1.8-7.7) H 12/10/18 04:38 Seg Neutrophils # Man 13.1 K/mm3 (1.8-7.7) H 12/17/18 04:24 Band Neutrophils # 4.2 K/mm3 12/17/18 04:24 Lymphocytes # (Manual) 1.2 K/mm3 (1.2-5.4) 12/17/18 04:24 Abs React Lymphs (Man) 0.0 K/mm3 12/17/18 04:24 Monocytes # (Manual) 0.8 K/mm3 (0.0-0.8) 12/17/18 04:24 Eosinophils # (Manual) 0.0 K/mm3 (0.0-0.4) 12/17/18 04:24 Basophils # (Manual) 0.0 K/mm3 (0.0-0.1) 12/17/18 04:24 Metamyelocytes # 0.0 K/mm3 12/17/18 04:24 Myelocytes # 0.0 K/mm3 12/17/18 04:24 Promyelocytes # 0.0 K/mm3 12/17/18 04:24 Blast Cells # 0.0 K/mm3 12/17/18 04:24 WBC Morphology Not Reportable 12/17/18 04:24 Hypersegmented Neuts Not Reportable 12/17/18 04:24 Hyposegmented Neuts Not Reportable 12/17/18 04:24 Hypogranular Neuts Not Reportable 12/17/18 04:24 Smudge Cells Not Reportable 12/17/18 04:24 Toxic Granulation Not Reportable 12/17/18 04:24 Toxic Vacuolation Not Reportable 12/17/18 04:24 Dohle Bodies Not Reportable 12/17/18 04:24 Pelger-Huet Anomaly Not Reportable 12/17/18 04:24 Mark Rods Not Reportable 12/17/18 04:24 Platelet Estimate Consistent w auto 12/17/18 04:24 Clumped Platelets Not Reportable 12/17/18 04:24 Plt Clumps, EDTA Not Reportable 12/17/18 04:24 Large Platelets Not Reportable 12/17/18 04:24 Giant Platelets Not Reportable 12/17/18 04:24 Platelet Satelliting Not Reportable 12/17/18 04:24 Plt Morphology Comment Not Reportable 12/17/18 04:24 RBC Morphology Not Reportable 12/17/18 04:24 Dimorphic RBCs Not Reportable 12/17/18 04:24 Polychromasia Not Reportable 12/17/18 04:24 Hypochromasia 1+ 12/17/18 04:24 Poikilocytosis Not Reportable 12/17/18 04:24 Anisocytosis 2+ 12/17/18 04:24 Microcytosis Not Reportable 12/17/18 04:24 Macrocytosis 1+ 12/17/18 04:24 Spherocytes Not Reportable 12/17/18 04:24 Pappenheimer Bodies Not Reportable 12/17/18 04:24 Sickle Cells Not Reportable 12/17/18 04:24 Target Cells Not Reportable 12/17/18 04:24 Tear Drop Cells Not Reportable 12/17/18 04:24 Ovalocytes 1+ 12/17/18 04:24 Helmet Cells Not Reportable 12/17/18 04:24 Estrada-Lavalette Bodies Not Reportable 12/17/18 04:24 [place] Rings Not Reportable 12/17/18 04:24 Aneesh Cells Few 12/17/18 04:24 Bite Cells Not Reportable 12/17/18 04:24 Crenated Cell Not Reportable 12/17/18 04:24 Elliptocytes Few 12/17/18 04:24 Acanthocytes (Spur) Not Reportable 12/17/18 04:24 Rouleaux Not Reportable 12/17/18 04:24 Hemoglobin C Crystals Not Reportable 12/17/18 04:24 Schistocytes Not Reportable 12/17/18 04:24 Malaria parasites Not Reportable 12/17/18 04:24 Stef Bodies Not Reportable 12/17/18 04:24 Hem Pathologist Commnt No 12/17/18 04:24 PT 20.2 Sec. (12.2-14.9) H 12/12/18 08:00 INR 1.61 (0.87-1.13) H 12/12/18 08:00 APTT 30.9 Sec. (24.2-36.6) 12/10/18 10:40 POC ABG pH 7.325 (7.35-7.45) L 12/15/18 03:37 POC ABG pCO2 28.6 (35-45) L 12/15/18 03:37 POC ABG pO2 105 (80-105) 12/15/18 03:37 POC ABG HCO3 14.9 12/15/18 03:37 POC ABG Total CO2 16 12/15/18 03:37 POC ABG O2 Sat 98 12/15/18 03:37 POC ABG Base Excess -11 12/15/18 03:37 FiO2 25 % 12/15/18 03:37 Sodium 138 mmol/L (137-145) 12/17/18 06:42 Potassium 4.4 mmol/L (3.6-5.0) 12/17/18 06:42 Chloride 113.1 mmol/L (98-107) H 12/17/18 06:42 Carbon Dioxide 13 mmol/L (22-30) L 12/17/18 06:42 Anion Gap 16 mmol/L 12/17/18 06:42 BUN 82 mg/dL (7-17) H 12/17/18 06:42 Creatinine 1.6 mg/dL (0.7-1.2) H 12/17/18 06:42 Estimated GFR 37 ml/min 12/17/18 06:42 BUN/Creatinine Ratio 51 % 12/17/18 06:42 Glucose 99 mg/dL (65-100) 12/17/18 06:42 POC Glucose 174 (70-105) H 12/16/18 00:10 Hemoglobin A1c 4.9 % (4-6) 12/10/18 04:38 Lactic Acid 3.00 mmol/L (0.7-2.0) H* 12/08/18 15:21 Calcium 8.0 mg/dL (8.4-10.2) L 12/17/18 06:42 Total Bilirubin 1.60 mg/dL (0.1-1.2) H 12/09/18 05:36 AST 44 units/L (5-40) H 12/09/18 05:36 ALT 39 units/L (7-56) 12/09/18 05:36 Alkaline Phosphatase 113 units/L (35-129) 12/09/18 05:36 Total Creatine Kinase 258 units/L (30-135) H 12/08/18 13:40 C-Reactive Protein 19.60 mg/dL (0.00-1.30) H 12/09/18 18:18 Total Protein 5.2 g/dL (6.3-8.2) L 12/09/18 05:36 Albumin 2.4 g/dL (3.9-5) L 12/09/18 05:36 Albumin/Globulin Ratio 0.9 % 12/09/18 05:36 TSH 0.268 mlU/mL (0.270-4.200) L 12/09/18 15:54 Free T4 0.58 ng/dL (0.76-1.46) L 12/09/18 15:54 Urine Color Yolie (Yellow) 12/08/18 13:40 Urine Turbidity Cloudy (Clear) 12/08/18 13:40 Urine pH 7.0 (5.0-7.0) 12/08/18 13:40 Ur Specific [place] 1.015 (1.003-1.030) 12/08/18 13:40 Urine Protein 100 mg/dl mg/dL (Negative) 12/08/18 13:40 Urine Glucose (UA) Neg mg/dL (Negative) 12/08/18 13:40 Urine Ketones Neg mg/dL (Negative) 12/08/18 13:40 Urine Blood Sm (Negative) 12/08/18 13:40 Urine Nitrite Neg (Negative) 12/08/18 13:40 Urine Bilirubin Neg (Negative) 12/08/18 13:40 Urine Urobilinogen 2.0 mg/dL (<2.0) 12/08/18 13:40 Ur Leukocyte Esterase Mod (Negative) 12/08/18 13:40 Urine WBC (Auto) 157.0 /HPF (0.0-6.0) H 12/08/18 13:40 Urine RBC (Auto) 8.0 /HPF (0.0-6.0) 12/08/18 13:40 U Epithel Cells (Auto) 1.0 /HPF (0-13.0) 12/08/18 13:40 Urine Bacteria (Auto) 4+ /HPF (Negative) 12/08/18 13:40 Urine Mucus 2+ /HPF 12/08/18 13:40 Random Vancomycin 23.8 ug/mL (0-40.0) 12/15/18 09:53 JEFFREY Screen Negative (Negative) 12/09/18 15:54 Blood Type B POSITIVE 12/08/18 13:40 Antibody Screen Negative 12/08/18 13:40 Crossmatch See Detail 12/08/18 13:40 Nutrition/Malnutrition Assess - Dietary Evaluation Nutrition/Malnutrition Findings: Nutrition Notes Start: 12/09/18 12:11 Freq: Status: Active Protocol: Document 12/16/18 15:56 KENNY (Rec: 12/16/18 16:00 KENNY [id number] [email or web address]) Nutrition Notes Initial or Follow up Reassessment Current Diagnosis Acute Kidney Injury,Sepsis, Respiratory Failure Other Pertinent Diagnosis Acute encephalopathy, Pericardial effusion Current Diet TF - Glucerna 1.2 at 50ml/hr Labs/Tests BUN 81 Cr 1.6 BG 161 Pertinent Medications Reviewed Height 5 ft 1 in Weight 60.3 kg [place] Body Weight (kg) 47.72 BMI 25.1 Weight change and time frame Current wt obtained from bed scale Subjective/Other Information Pt tolerating TF at goal rate, per RN. Pt remains on vent support. Percent of energy/protein needs met: 100% energy and pro Burn Absent Trauma Absent #1 Nutrition Diagnosis Inadequate oral intake Diagnosis Progress(for reassessment Continues documentation) Is patient on ventilator? Yes Is Patient Ambulatory and/or Out of Bed No REE-([facility]-confined to bed) [phone] Calculation Used for Recommendations [facility] Additional Notes Pro needs 1.2-2g/k-121g/ day Fluid needs 1ml/kcal Nutrition Intervention Nutrition Support: Glucerna 1.2 at 50ml/hr Flush with 100ml q4h Kcal 1,440 Protein (gm) 72 Fluid (mL) 966 Goal #1 TF tolerance Goal #2 TF to meet at least 80% energy and pro needs Follow-Up By: 12/23/18 Additional Comments F/U: stable TF, vent status, wt
[2018-12-17] MEDS ORDERED: REGLAN IV SCH (10:00)
[2018-12-17] MEDS ORDERED: CATAPRES-TTS PATCH TD SCH (10:00)
[2018-12-17] MEDS: MAXIPIME/NS 2 GM/100 ML 2 GM/100 ML BAG IV SCH (10:00)
[2018-12-17] MEDS: SODIUM CHLORIDE FLUSH SYRINGE 10 ML IV SCH ×2 (10:01→21:54)
[2018-12-17] MEDS: PREVACID SOLUTAB FEEDTUBE SCH ×2 (10:01→21:54)
--- NOTE | 2018-12-17 10:46 | Progress Note ---
Assessment and Plan Continue management. Will follow on as needed basis. The patient has been seen in conjunction with Dr. Harrell who agrees with the assessment and plan of care. - Patient Problems (1) Pericardial effusion Current Visit: Yes Status: Acute (2) Acute respiratory failure with hypoxia Current Visit: Yes Status: Acute (3) Sepsis Current Visit: Yes Status: Acute Qualifiers: Sepsis type: sepsis due to unspecified organism Qualified Code(s): A41.9 - Sepsis, unspecified organism (4) UTI (urinary tract infection) Current Visit: Yes Status: Acute (5) GI bleed Current Visit: Yes Status: Acute (6) History of CVA (cerebrovascular accident) Current Visit: Yes Status: Chronic (7) HLD (hyperlipidemia) Current Visit: Yes Status: Chronic Qualifiers: Hyperlipidemia type: mixed hyperlipidemia Qualified Code(s): E78.2 - Mixed hyperlipidemia (8) HTN (hypertension) Current Visit: Yes Status: Chronic Qualifiers: Hypertension type: essential hypertension Qualified Code(s): I10 - Essential (primary) hypertension (9) T2DM (type 2 diabetes mellitus) Current Visit: Yes Status: Chronic Qualifiers: Diabetes mellitus fci insulin use: unspecified manager long term care insulin use status (10) AMRYANN (acute kidney injury) Current Visit: Yes Status: Acute (11) Encephalopathy Current Visit: Yes Status: Acute Subjective Date of service: 12/17/18 Principal diagnosis: coffee-ground drainage Interval history: pt remains intubated, unresponsive. no family members at bedside. Objective Last Vital Signs Temp 93.6 F L 12/17/18 08:00 Pulse 63 12/17/18 09:00 Resp 9 L 12/17/18 09:00 BP 141/48 12/17/18 09:00 Pulse Ox 99 12/17/18 09:00 - Physical Examination General: Other (intubated, nonresponsive ) HEENT: Positive: Normocephaly, Mucus Membranes Moist Neck: Positive: neck supple, trachea midline Cardiac: Positive: Reg Rate and Rhythm, S1/S2 Lungs: Positive: Decreased Breath Sounds Neuro: Positive: Other (unresponsive) Abdomen: Positive: Soft, Active Bowel Sounds Skin: Positive: Clear. Negative: Rash Musculoskeletal: Normal Range of Motion Extremities: Absent: edema - Labs and Meds CBC 12/17/18 Range/Units 04:24 WBC 19.2 H (4.5-11.0) K/mm3 RBC 3.91 (3.65-5.03) M/mm3 Hgb 9.5 L (10.1-14.3) gm/dl Hct 29.7 L (30.3-42.9) % Plt Count 26 L (140-440) K/mm3 Comprehensive Metabolic Panel 12/17/18 12/17/18 Range/Units 04:24 06:42 Sodium 134 L 138 (137-145) mmol/L Potassium TNR 4.4 Chloride 110.0 H 113.1 H (98-107) mmol/L Carbon Dioxide 14 L 13 L (22-30) mmol/L BUN 83 H 82 H (7-17) mg/dL Creatinine 1.6 H 1.6 H (0.7-1.2) mg/dL Glucose 89 99 (65-100) mg/dL Calcium 7.8 L 8.0 L (8.4-10.2) mg/dL - Allied health notes Allied health notes reviewed: nursing
[2018-12-17] MEDS: SODIUM CHLORIDE FLUSH SYRINGE 10 ML IV PRN (10:47)
--- NOTE | 2018-12-17 11:06 | Progress Note ---
Assessment and Plan 88 y/o female with acute respiratory failure, altered mental state, presumptive acute renal failure and hypotension with thrombocytopenia and dirty urine analysis. 1. Attempt SBT today 2. Ordered KUB, done, awaiting official read. Most likely will say nonspecific bowel gas pattern. Would hold on Reglan as this can be a mind altering agent. If not pathology read on KUB, could consider other motility agents but will discuss with pharmacy 3. Remains in renal failure 4. Need to have family meeting soon to discuss goals of care. Patient has now been intubated and off sedation for 9 days with no improvement in mental state and other organ failures. CCT 31 minutes. Subjective Date of service: 12/17/18 Principal diagnosis: coffee-ground drainage Interval history: Continues to have high residuals. Tube feeds on hold. No family present. Still have not spoken with any of the sons who have decision making capabilities. Patient remains unresponsive not on sedation and remains vented. Objective Vital Signs - 12hr 12/16/18 12/16/18 12/17/18 23:25 23:38 00:00 Temperature 89.2 F L Pulse Rate 60 60 60 Pulse Rate [ Anterior Bilateral Throughout] Pulse Rate [ 60 Apical] Respiratory 18 18 Rate Respiratory Rate [Anterior Bilateral Throughout] Blood Pressure 115/48 115/48 O2 Sat by Pulse 100 100 100 Oximetry 12/17/18 12/17/18 12/17/18 00:01 01:01 02:00 Temperature Pulse Rate 60 60 60 Pulse Rate [ 64 Anterior Bilateral Throughout] Pulse Rate [ Apical] Respiratory 16 18 18 Rate Respiratory 20 Rate [Anterior Bilateral Throughout] Blood Pressure 134/72 104/42 133/53 O2 Sat by Pulse 99 99 99 Oximetry 12/17/18 12/17/18 12/17/18 03:00 04:00 05:00 Temperature 91.5 F L Pulse Rate 60 63 64 Pulse Rate [ Anterior Bilateral Throughout] Pulse Rate [ 62 Apical] Respiratory 19 17 16 Rate Respiratory Rate [Anterior Bilateral Throughout] Blood Pressure 125/44 133/58 133/53 O2 Sat by Pulse 99 98 99 Oximetry 12/17/18 12/17/18 12/17/18 05:56 06:01 07:00 Temperature Pulse Rate 69 71 65 Pulse Rate [ Anterior Bilateral Throughout] Pulse Rate [ Apical] Respiratory 15 9 L Rate Respiratory Rate [Anterior Bilateral Throughout] Blood Pressure 143/47 164/50 150/57 O2 Sat by Pulse 98 99 Oximetry 12/17/18 12/17/18 12/17/18 07:37 07:40 08:00 Temperature 93.6 F L Pulse Rate 66 65 Pulse Rate [ 66 Anterior Bilateral Throughout] Pulse Rate [ 64 Apical] Respiratory 19 Rate Respiratory 19 Rate [Anterior Bilateral Throughout] Blood Pressure 150/57 153/55 O2 Sat by Pulse 100 99 Oximetry 12/17/18 12/17/18 08:16 09:00 Temperature Pulse Rate 63 Pulse Rate [ 66 Anterior Bilateral Throughout] Pulse Rate [ Apical] Respiratory 9 L Rate Respiratory 18 Rate [Anterior Bilateral Throughout] Blood Pressure 141/48 O2 Sat by Pulse 99 Oximetry Constitutional: no acute distress, lethargic, other (on vent cmv) Eyes: non-icteric ENT: oropharynx moist, other (ETT in position,large tongue) Neck: supple, no JVD, other (right left IJ lines in place) Ascultation: Bilateral: clear, diminished breath sounds Cardiovascular: regular rate and rhythm, other (pacemaker rhythm) Gastrointestinal: normoactive bowel sounds, non-distended Integumentary: normal Extremities: no cyanosis, no edema, pink and warm Neurologic: pupils equal and round, other (comatose) CBC and BMP: 12/17/18 04:24 12/17/18 06:42 ABG, PT/INR, D-dimer: ABG POC ABG pH 7.325 (7.35-7.45) L 12/15/18 03:37 POC ABG pCO2 28.6 (35-45) L 12/15/18 03:37 POC ABG pO2 105 (80-105) 12/15/18 03:37 POC ABG HCO3 14.9 12/15/18 03:37 POC ABG Total CO2 16 12/15/18 03:37 POC ABG O2 Sat 98 12/15/18 03:37 PT/INR, D-dimer PT 20.2 Sec. (12.2-14.9) H 12/12/18 08:00 INR 1.61 (0.87-1.13) H 12/12/18 08:00 Abnormal lab findings: Abnormal Labs 12/08/18 12/08/18 12/08/18 12:58 13:40 13:40 WBC RBC Hgb Hct MCV MCH RDW Plt Count Lymph % (Auto) Lymph # Seg Neutrophils % Seg Neuts % (Manual) Lymphocytes % (Manual) Monocytes % (Manual) Nucleated RBC % Seg Neutrophils # Seg Neutrophils # Man Lymphocytes # (Manual) Monocytes # (Manual) PT INR POC ABG pH POC ABG pCO2 POC ABG pO2 Sodium Potassium Chloride Carbon Dioxide BUN Creatinine Glucose POC Glucose 143 H Lactic Acid Calcium Total Bilirubin AST Total Creatine Kinase C-Reactive Protein Total Protein Albumin TSH Free T4 Urine WBC (Auto) 157.0 H Crossmatch See Detail 12/08/18 12/08/18 12/08/18 13:40 13:40 13:40 WBC RBC 3.06 L Hgb 6.8 L Hct 21.1 L MCV 69 L MCH 22 L RDW 16.2 H Plt Count 56 L Lymph % (Auto) Lymph # Seg Neutrophils % Seg Neuts % (Manual) Lymphocytes % (Manual) 2.0 L Monocytes % (Manual) Nucleated RBC % Seg Neutrophils # Seg Neutrophils # Man Lymphocytes # (Manual) 0.2 L Monocytes # (Manual) PT INR POC ABG pH POC ABG pCO2 POC ABG pO2 Sodium Potassium 3.2 L Chloride Carbon Dioxide 18 L BUN 64 H Creatinine 1.5 H Glucose 145 H POC Glucose Lactic Acid 4.00 H* Calcium 7.7 L Total Bilirubin AST Total Creatine Kinase 258 H C-Reactive Protein Total Protein 4.6 L Albumin 1.8 L TSH Free T4 Urine WBC (Auto) Crossmatch 12/08/18 12/08/18 12/08/18 14:29 15:21 16:06 WBC RBC Hgb Hct MCV MCH RDW Plt Count Lymph % (Auto) Lymph # Seg Neutrophils % Seg Neuts % (Manual) Lymphocytes % (Manual) Monocytes % (Manual) Nucleated RBC % Seg Neutrophils # Seg Neutrophils # Man Lymphocytes # (Manual) Monocytes # (Manual) PT 20.5 H INR 1.64 H POC ABG pH POC ABG pCO2 34.2 L POC ABG pO2 465 H Sodium Potassium Chloride Carbon Dioxide BUN Creatinine Glucose POC Glucose Lactic Acid 3.00 H* Calcium Total Bilirubin AST Total Creatine Kinase C-Reactive Protein Total Protein Albumin TSH Free T4 Urine WBC (Auto) Crossmatch 12/09/18 12/09/18 12/09/18 02:31 05:36 05:36 WBC 14.5 H RBC Hgb Hct MCV 75 L MCH 25 L RDW 20.4 H Plt Count 68 L Lymph % (Auto) Lymph # Seg Neutrophils % Seg Neuts % (Manual) 81.0 H Lymphocytes % (Manual) 1.0 L Monocytes % (Manual) Nucleated RBC % Seg Neutrophils # Seg Neutrophils # Man 11.7 H Lymphocytes # (Manual) 0.1 L Monocytes # (Manual) PT INR POC ABG pH POC ABG pCO2 POC ABG pO2 Sodium Potassium Chloride 107.6 H Carbon Dioxide 18 L BUN 75 H Creatinine 1.9 H Glucose 136 H POC Glucose 152 H Lactic Acid Calcium 7.9 L Total Bilirubin 1.60 H AST 44 H Total Creatine Kinase C-Reactive Protein Total Protein 5.2 L Albumin 2.4 L TSH Free T4 Urine WBC (Auto) Crossmatch 12/09/18 12/09/18 12/09/18 05:43 10:47 13:46 WBC RBC Hgb Hct MCV MCH RDW Plt Count Lymph % (Auto) Lymph # Seg Neutrophils % Seg Neuts % (Manual) Lymphocytes % (Manual) Monocytes % (Manual) Nucleated RBC % Seg Neutrophils # Seg Neutrophils # Man Lymphocytes # (Manual) Monocytes # (Manual) PT INR POC ABG pH 7.308 L POC ABG pCO2 POC ABG pO2 183 H Sodium Potassium Chloride Carbon Dioxide BUN Creatinine Glucose POC Glucose 150 H 162 H Lactic Acid Calcium Total Bilirubin AST Total Creatine Kinase C-Reactive Protein Total Protein Albumin TSH Free T4 Urine WBC (Auto) Crossmatch 12/09/18 12/09/18 12/09/18 15:54 15:54 16:40 WBC RBC Hgb Hct MCV MCH RDW Plt Count Lymph % (Auto) Lymph # Seg Neutrophils % Seg Neuts % (Manual) Lymphocytes % (Manual) Monocytes % (Manual) Nucleated RBC % Seg Neutrophils # Seg Neutrophils # Man Lymphocytes # (Manual) Monocytes # (Manual) PT INR POC ABG pH POC ABG pCO2 POC ABG pO2 Sodium Potassium Chloride Carbon Dioxide BUN Creatinine Glucose POC Glucose 197 H Lactic Acid Calcium Total Bilirubin AST Total Creatine Kinase C-Reactive Protein Total Protein Albumin TSH 0.268 L Free T4 0.58 L Urine WBC (Auto) Crossmatch 12/09/18 12/09/18 12/09/18 18:18 18:18 21:51 WBC RBC Hgb Hct MCV MCH RDW Plt Count Lymph % (Auto) Lymph # Seg Neutrophils % Seg Neuts % (Manual) Lymphocytes % (Manual) Monocytes % (Manual) Nucleated RBC % Seg Neutrophils # Seg Neutrophils # Man Lymphocytes # (Manual) Monocytes # (Manual) PT INR POC ABG pH POC ABG pCO2 POC ABG pO2 Sodium Potassium Chloride 108.2 H Carbon Dioxide 16 L BUN 89 H Creatinine 2.3 H Glucose 180 H POC Glucose 198 H Lactic Acid Calcium 7.9 L Total Bilirubin AST Total Creatine Kinase C-Reactive Protein 19.60 H Total Protein Albumin TSH Free T4 Urine WBC (Auto) Crossmatch 12/10/18 12/10/18 12/10/18 01:59 04:14 04:38 WBC 11.5 H RBC Hgb Hct MCV 75 L MCH 25 L RDW 21.1 H Plt Count 81 L Lymph % (Auto) 5.6 L Lymph # 0.6 L Seg Neutrophils % 89.8 H Seg Neuts % (Manual) Lymphocytes % (Manual) Monocytes % (Manual) Nucleated RBC % Seg Neutrophils # 10.3 H Seg Neutrophils # Man Lymphocytes # (Manual) Monocytes # (Manual) PT INR POC ABG pH 7.273 L POC ABG pCO2 32.1 L POC ABG pO2 161 H Sodium Potassium Chloride Carbon Dioxide BUN Creatinine Glucose POC Glucose 219 H Lactic Acid Calcium Total Bilirubin AST Total Creatine Kinase C-Reactive Protein Total Protein Albumin TSH Free T4 Urine WBC (Auto) Crossmatch 12/10/18 12/10/18 12/10/18 04:38 05:07 07:26 WBC RBC Hgb Hct MCV MCH RDW Plt Count Lymph % (Auto) Lymph # Seg Neutrophils % Seg Neuts % (Manual) Lymphocytes % (Manual) Monocytes % (Manual) Nucleated RBC % Seg Neutrophils # Seg Neutrophils # Man Lymphocytes # (Manual) Monocytes # (Manual) PT INR POC ABG pH POC ABG pCO2 POC ABG pO2 Sodium Potassium Chloride 112.5 H Carbon Dioxide 14 L BUN 94 H Creatinine 2.4 H Glucose 207 H POC Glucose 221 H 212 H Lactic Acid Calcium 7.7 L Total Bilirubin AST Total Creatine Kinase C-Reactive Protein Total Protein Albumin TSH Free T4 Urine WBC (Auto) Crossmatch 12/10/18 12/10/18 12/10/18 10:40 11:15 14:21 WBC RBC Hgb Hct MCV MCH RDW Plt Count Lymph % (Auto) Lymph # Seg Neutrophils % Seg Neuts % (Manual) Lymphocytes % (Manual) Monocytes % (Manual) Nucleated RBC % Seg Neutrophils # Seg Neutrophils # Man Lymphocytes # (Manual) Monocytes # (Manual) PT 21.4 H INR 1.73 H POC ABG pH 7.214 L POC ABG pCO2 32.8 L POC ABG pO2 Sodium Potassium Chloride Carbon Dioxide BUN Creatinine Glucose POC Glucose 227 H Lactic Acid Calcium Total Bilirubin AST Total Creatine Kinase C-Reactive Protein Total Protein Albumin TSH Free T4 Urine WBC (Auto) Crossmatch 12/10/18 12/10/18 12/11/18 15:47 22:38 03:36 WBC RBC Hgb Hct MCV MCH RDW Plt Count Lymph % (Auto) Lymph # Seg Neutrophils % Seg Neuts % (Manual) Lymphocytes % (Manual) Monocytes % (Manual) Nucleated RBC % Seg Neutrophils # Seg Neutrophils # Man Lymphocytes # (Manual) Monocytes # (Manual) PT INR POC ABG pH POC ABG pCO2 26.2 L POC ABG pO2 138 H Sodium Potassium Chloride Carbon Dioxide BUN Creatinine Glucose POC Glucose 202 H 259 H Lactic Acid Calcium Total Bilirubin AST Total Creatine Kinase C-Reactive Protein Total Protein Albumin TSH Free T4 Urine WBC (Auto) Crossmatch 12/11/18 12/11/18 12/11/18 04:12 05:00 06:19 WBC RBC Hgb Hct MCV MCH RDW Plt Count Lymph % (Auto) Lymph # Seg Neutrophils % Seg Neuts % (Manual) Lymphocytes % (Manual) Monocytes % (Manual) Nucleated RBC % Seg Neutrophils # Seg Neutrophils # Man Lymphocytes # (Manual) Monocytes # (Manual) PT 19.5 H INR 1.54 H POC ABG pH POC ABG pCO2 24.6 L POC ABG pO2 119 H Sodium Potassium Chloride Carbon Dioxide BUN Creatinine Glucose POC Glucose 174 H Lactic Acid Calcium Total Bilirubin AST Total Creatine Kinase C-Reactive Protein Total Protein Albumin TSH Free T4 Urine WBC (Auto) Crossmatch 12/11/18 12/11/18 12/11/18 11:10 11:10 18:10 WBC 14.3 H RBC Hgb Hct MCV 73 L MCH 24 L RDW 21.5 H Plt Count Lymph % (Auto) Lymph # Seg Neutrophils % Seg Neuts % (Manual) Lymphocytes % (Manual) Monocytes % (Manual) Nucleated RBC % Seg Neutrophils # Seg Neutrophils # Man Lymphocytes # (Manual) Monocytes # (Manual) PT INR POC ABG pH POC ABG pCO2 POC ABG pO2 Sodium Potassium Chloride 110.5 H Carbon Dioxide 15 L BUN 101 H Creatinine 2.4 H Glucose 119 H POC Glucose 147 H Lactic Acid Calcium 7.7 L Total Bilirubin AST Total Creatine Kinase C-Reactive Protein Total Protein Albumin TSH Free T4 Urine WBC (Auto) Crossmatch 12/11/18 12/12/18 12/12/18 23:25 05:37 06:03 WBC RBC Hgb Hct MCV MCH RDW Plt Count Lymph % (Auto) Lymph # Seg Neutrophils % Seg Neuts % (Manual) Lymphocytes % (Manual) Monocytes % (Manual) Nucleated RBC % Seg Neutrophils # Seg Neutrophils # Man Lymphocytes # (Manual) Monocytes # (Manual) PT INR POC ABG pH 7.346 L POC ABG pCO2 28.3 L POC ABG pO2 120 H Sodium Potassium Chloride Carbon Dioxide BUN Creatinine Glucose POC Glucose 143 H 154 H Lactic Acid Calcium Total Bilirubin AST Total Creatine Kinase C-Reactive Protein Total Protein Albumin TSH Free T4 Urine WBC (Auto) Crossmatch 12/12/18 12/12/18 12/12/18 08:00 08:00 08:00 WBC 16.2 H RBC Hgb Hct MCV 74 L MCH 25 L RDW 21.9 H Plt Count 21 L Lymph % (Auto) Lymph # Seg Neutrophils % Seg Neuts % (Manual) Lymphocytes % (Manual) Monocytes % (Manual) Nucleated RBC % Seg Neutrophils # Seg Neutrophils # Man Lymphocytes # (Manual) Monocytes # (Manual) PT 20.2 H INR 1.61 H POC ABG pH POC ABG pCO2 POC ABG pO2 Sodium Potassium Chloride 107.4 H Carbon Dioxide 16 L BUN 101 H Creatinine 2.3 H Glucose 169 H POC Glucose Lactic Acid Calcium 8.2 L Total Bilirubin AST Total Creatine Kinase C-Reactive Protein Total Protein Albumin TSH Free T4 Urine WBC (Auto) Crossmatch 12/12/18 12/12/18 12/13/18 12:59 18:01 04:28 WBC 18.6 H RBC Hgb Hct MCV 74 L MCH 24 L RDW 21.8 H Plt Count 34 L Lymph % (Auto) Lymph # Seg Neutrophils % Seg Neuts % (Manual) 97.0 H Lymphocytes % (Manual) 2.0 L Monocytes % (Manual) Nucleated RBC % 1.0 H Seg Neutrophils # Seg Neutrophils # Man 18.0 H Lymphocytes # (Manual) 0.4 L Monocytes # (Manual) PT INR POC ABG pH POC ABG pCO2 POC ABG pO2 Sodium Potassium Chloride Carbon Dioxide BUN Creatinine Glucose POC Glucose 158 H 123 H Lactic Acid Calcium Total Bilirubin AST Total Creatine Kinase C-Reactive Protein Total Protein Albumin TSH Free T4 Urine WBC (Auto) Crossmatch 12/13/18 12/13/18 12/13/18 04:28 04:45 19:17 WBC RBC Hgb Hct MCV MCH RDW Plt Count Lymph % (Auto) Lymph # Seg Neutrophils % Seg Neuts % (Manual) Lymphocytes % (Manual) Monocytes % (Manual) Nucleated RBC % Seg Neutrophils # Seg Neutrophils # Man Lymphocytes # (Manual) Monocytes # (Manual) PT INR POC ABG pH 7.327 L POC ABG pCO2 31.1 L POC ABG pO2 136 H Sodium Potassium Chloride 112.0 H Carbon Dioxide 17 L BUN 97 H Creatinine 2.2 H Glucose POC Glucose 106 H Lactic Acid Calcium 8.1 L Total Bilirubin AST Total Creatine Kinase C-Reactive Protein Total Protein Albumin TSH Free T4 Urine WBC (Auto) Crossmatch 12/13/18 12/14/18 12/14/18 23:24 03:35 03:35 WBC 22.0 H RBC Hgb Hct MCV 75 L MCH 24 L RDW 22.2 H Plt Count 44 L Lymph % (Auto) Lymph # Seg Neutrophils % Seg Neuts % (Manual) 96.0 H Lymphocytes % (Manual) 3.0 L Monocytes % (Manual) Nucleated RBC % Seg Neutrophils # Seg Neutrophils # Man 21.1 H Lymphocytes # (Manual) 0.7 L Monocytes # (Manual) PT INR POC ABG pH POC ABG pCO2 POC ABG pO2 Sodium 136 L Potassium Chloride 107.2 H Carbon Dioxide 15 L BUN 87 H Creatinine 1.7 H Glucose 156 H POC Glucose 108 H Lactic Acid Calcium 7.7 L Total Bilirubin AST Total Creatine Kinase C-Reactive Protein Total Protein Albumin TSH Free T4 Urine WBC (Auto) Crossmatch 12/14/18 12/14/18 12/14/18 04:58 05:37 12:10 WBC RBC Hgb Hct MCV MCH RDW Plt Count Lymph % (Auto) Lymph # Seg Neutrophils % Seg Neuts % (Manual) Lymphocytes % (Manual) Monocytes % (Manual) Nucleated RBC % Seg Neutrophils # Seg Neutrophils # Man Lymphocytes # (Manual) Monocytes # (Manual) PT INR POC ABG pH 7.301 L POC ABG pCO2 32.6 L POC ABG pO2 138 H Sodium Potassium Chloride Carbon Dioxide BUN Creatinine Glucose POC Glucose 178 H 208 H Lactic Acid Calcium Total Bilirubin AST Total Creatine Kinase C-Reactive Protein Total Protein Albumin TSH Free T4 Urine WBC (Auto) Crossmatch 12/14/18 12/14/18 12/15/18 17:44 23:16 03:37 WBC RBC Hgb Hct MCV MCH RDW Plt Count Lymph % (Auto) Lymph # Seg Neutrophils % Seg Neuts % (Manual) Lymphocytes % (Manual) Monocytes % (Manual) Nucleated RBC % Seg Neutrophils # Seg Neutrophils # Man Lymphocytes # (Manual) Monocytes # (Manual) PT INR POC ABG pH 7.325 L POC ABG pCO2 28.6 L POC ABG pO2 Sodium Potassium Chloride Carbon Dioxide BUN Creatinine Glucose POC Glucose 172 H 123 H Lactic Acid Calcium Total Bilirubin AST Total Creatine Kinase C-Reactive Protein Total Protein Albumin TSH Free T4 Urine WBC (Auto) Crossmatch 12/15/18 12/15/18 12/15/18 05:30 05:30 05:43 WBC 20.1 H RBC Hgb 9.5 L Hct 29.2 L MCV 74 L MCH 24 L RDW 22.7 H Plt Count 48 L Lymph % (Auto) Lymph # Seg Neutrophils % Seg Neuts % (Manual) 96.0 H Lymphocytes % (Manual) 1.0 L Monocytes % (Manual) Nucleated RBC % Seg Neutrophils # Seg Neutrophils # Man 19.3 H Lymphocytes # (Manual) 0.2 L Monocytes # (Manual) PT INR POC ABG pH POC ABG pCO2 POC ABG pO2 Sodium Potassium Chloride 110.8 H Carbon Dioxide 17 L BUN 83 H Creatinine 1.6 H Glucose 150 H POC Glucose 151 H Lactic Acid Calcium 7.7 L Total Bilirubin AST Total Creatine Kinase C-Reactive Protein Total Protein Albumin TSH Free T4 Urine WBC (Auto) Crossmatch 12/15/18 12/15/18 12/16/18 12:56 18:21 00:10 WBC RBC Hgb Hct MCV MCH RDW Plt Count Lymph % (Auto) Lymph # Seg Neutrophils % Seg Neuts % (Manual) Lymphocytes % (Manual) Monocytes % (Manual) Nucleated RBC % Seg Neutrophils # Seg Neutrophils # Man Lymphocytes # (Manual) Monocytes # (Manual) PT INR POC ABG pH POC ABG pCO2 POC ABG pO2 Sodium Potassium Chloride Carbon Dioxide BUN Creatinine Glucose POC Glucose 190 H 143 H 174 H Lactic Acid Calcium Total Bilirubin AST Total Creatine Kinase C-Reactive Protein Total Protein Albumin TSH Free T4 Urine WBC (Auto) Crossmatch 12/16/18 12/16/18 12/17/18 05:30 05:30 04:24 WBC 17.1 H 19.2 H RBC Hgb 9.1 L 9.5 L Hct 28.8 L 29.7 L MCV 76 L 76 L MCH 24 L 24 L RDW 23.5 H 24.4 H Plt Count 37 L 26 L Lymph % (Auto) Lymph # Seg Neutrophils % Seg Neuts % (Manual) Lymphocytes % (Manual) 9.0 L 6.0 L Monocytes % (Manual) 9.0 H Nucleated RBC % Seg Neutrophils # Seg Neutrophils # Man 9.6 H 13.1 H Lymphocytes # (Manual) Monocytes # (Manual) 1.5 H PT INR POC ABG pH POC ABG pCO2 POC ABG pO2 Sodium Potassium Chloride 110.8 H Carbon Dioxide 15 L BUN 81 H Creatinine 1.6 H Glucose 161 H POC Glucose Lactic Acid Calcium 7.6 L Total Bilirubin AST Total Creatine Kinase C-Reactive Protein Total Protein Albumin TSH Free T4 Urine WBC (Auto) Crossmatch 12/17/18 12/17/18 04:24 06:42 WBC RBC Hgb Hct MCV MCH RDW Plt Count Lymph % (Auto) Lymph # Seg Neutrophils % Seg Neuts % (Manual) Lymphocytes % (Manual) Monocytes % (Manual) Nucleated RBC % Seg Neutrophils # Seg Neutrophils # Man Lymphocytes # (Manual) Monocytes # (Manual) PT INR POC ABG pH POC ABG pCO2 POC ABG pO2 Sodium 134 L Potassium Chloride 110.0 H 113.1 H Carbon Dioxide 14 L 13 L BUN 83 H 82 H Creatinine 1.6 H 1.6 H Glucose POC Glucose Lactic Acid Calcium 7.8 L 8.0 L Total Bilirubin AST Total Creatine Kinase C-Reactive Protein Total Protein Albumin TSH Free T4 Urine WBC (Auto) Crossmatch Allied health notes reviewed: nursing
--- NOTE | 2018-12-17 13:21 | XRay Report ---
AP ABDOMEN: HISTORY: High tube feed residuals. A nasogastric tube is coiled in the proximal stomach with its tip near the GE junction. The intestinal gas pattern is unremarkable. No evidence for obstruction or large free air. There is normal stool in the colon. Multiple calcifications overlie the liver which probably represent calcified granulomas. IMPRESSION: Essentially unremarkable abdomen. No evidence for obstruction.
[2018-12-17] MEDS ORDERED: D5W 1,000 ML IV SCH (14:00)
[2018-12-17] MEDS ORDERED: SODIUM BICARBONATE PO SCH (14:00)
--- NOTE | 2018-12-17 14:29 | Progress Note ---
Assessment and Plan Cultures: Blood culture 12/08/2018 no growth so far. 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 - Blood culture 12/08/2018 no growth so far. - Lactate 4 on admission. 2) UTI: UA wbc 157, LE mod, on cefepime. Urine culture was not sent. 3) Right otitis media / mastoiditis: Per grand-daughter, she has been c/o right ear pain and drainage last week. Patient was putting Neosporin and perhaps ear stephanie in the patient's ear. On physical exam, patient found to have purulent discharge from the right ear, and stephanie were removed by ED physician. There was probable perforation of the right sided tympanic membrane per ED physician. Got dexamethasone. 4) Acute encephalopathy: not better, from sepsis alone versus meningitis versus CVA. CT head extensive right MCA encephalomalcia, right mastoid opacities. 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 5) Acute respiratory failure: CXR showed small left pleural effusion. CT chest showed large pericardial effusion, LLL atelectasis v/s infiltrate and left pleural effusion. 6) ?GI bleed 7) Severe anemia: 8) Severe thrombocytopenia: from sepsis 9) Large pericardial effusion: TTE EF>50, no echo evidence of tamponade 10) Penicillin allergy: tolerating cefepime 11) CKD: renally adjusted antibiotics Recommendations: - given hypothermia, concern for worsening sepsis, will repeat blood cultures and expand coverage to IV Meropenem - discontinued Cefepime and Flagyl - continue IV vancomycin, renally adjusted - unable to do LP due to thrombocytopenia - overall extremely poor prognosis MD [facility] C: [phone] O: [phone] F: [phone] Subjective Date of service: 12/17/18 Principal diagnosis: coffee-ground drainage Interval history: Remains unresponsive. Getting hypothermic. Still on vent. Discussed with RN. Objective - Exam Narrative Exam: Physical Exam: Constitutional: sedated, intubated Head, Ears, Nose: Normocephalic, atraumatic. nose normal. Right ear with packing Eyes: Conjunctivae/corneas clear. No icterus. No ptosis. Neck: Supple, no meningeal signs Oral: intubated Cardiovascular: S1, S2 normal. Respiratory: Good air entry, clear to auscultation bilaterally GI: Soft, non-tender; bowel sounds hypoactive. No peritoneal signs Musculoskeletal: No pedal edema, no cyanosis. Skin: No rash or abscess Hem/Lymphatic: No palpable cervical or supraclavicular nodes. No lymphangitis Psych: no agitation Neurological: sedated, intubated, on vent - Constitutional Vitals: Vital Signs Temp Pulse Resp BP Pulse Ox 94.5 F L 72 19 143/48 99 12/17/18 11:00 12/17/18 14:00 12/17/18 14:00 12/17/18 12:12 12/17/18 12:12 Temperature -Last 24 Hours Temperature 94.5 F Temperature 93.6 F Temperature 91.5 F Temperature 89.2 F Temperature 96.1 F Temperature 96.5 F - Labs CBC & Chem 7: 12/17/18 04:24 12/17/18 06:42 Labs: Abnormal lab results 12/17/18 12/17/18 12/17/18 Range/Units 04:24 04:24 06:42 WBC 19.2 H (4.5-11.0) K/mm3 Hgb 9.5 L (10.1-14.3) gm/dl Hct 29.7 L (30.3-42.9) % MCV 76 L (79-97) fl MCH 24 L (28-32) pg RDW 24.4 H (13.2-15.2) % Plt Count 26 L (140-440) K/mm3 Lymphocytes % (Manual) 6.0 L (13.4-35.0) % Seg Neutrophils # Man 13.1 H (1.8-7.7) K/mm3 Sodium 134 L (137-145) mmol/L Chloride 110.0 H 113.1 H (98-107) mmol/L Carbon Dioxide 14 L 13 L (22-30) mmol/L BUN 83 H 82 H (7-17) mg/dL Creatinine 1.6 H 1.6 H (0.7-1.2) mg/dL Calcium 7.8 L 8.0 L (8.4-10.2) mg/dL - Imaging and cardiology Abdominal x-ray: report reviewed, image reviewed (no obvious obstruction noted.)
[2018-12-17] MEDS: MERREM 1,000 MG in NACL 0.9% 100 ML IV SCH ×2 (16:15→21:54)
[2018-12-17] MEDS: SODIUM BICARBONATE 75 MEQ in D5W 1,000 ML IV SCH (17:49)
[2018-12-18] MEDS: HumaLOG SUB-Q SCH ×6 (00:38→23:47)
[2018-12-18] MEDS: DUONEB *Not for PRN Use IH SCH ×4 (02:57→19:07)
[2018-12-18 05:07] LABS: Hematocrit 26.8 % (30.3-42.9); Hemoglobin 8.7 gm/dl (10.1-14.3); Mean Corpuscular HGB Conc 33 % (30-34); Mean Corpuscular Volume 74 fl (79-97); Red Blood Count 3.63 M/mm3 (3.65-5.03)
[2018-12-18 05:25] LABS: Red Cell Distribution Width 23.3 % (13.2-15.2)
[2018-12-18 05:28] LABS: Calcium 7.8 mg/dL (8.4-10.2)
[2018-12-18 05:31] LABS: Platelet Count 24 K/mm3 (140-440)
[2018-12-18] MEDS: APRESOLINE PO SCH ×3 (06:11→21:20)
[2018-12-18] MEDS: SODIUM BICARBONATE 75 MEQ in D5W 1,000 ML IV SCH ×2 (08:10→21:26)
--- NOTE | 2018-12-18 08:29 | Progress Note ---
Assessment and Plan Assessment and plan: Acute respiratory failure, intubated Likely from underlying severe sepsis, encephalopathy and pleural effusion? Housekeeper/Pulm consulted Continue nebs, continue antibiotics CXR showed small left pleural effusion. CT chest showed large pericardial effusion, LLL atelectasis v/s infiltrate and left pleural effusion. Unable to wean off, may need trach and PEG Acute encephalopathy: - likely from sepsis alone versus possible meningitis vs seizure. CT head extensive right MCA encephalomalcia, right mastoid opacities. neurology ordered EEG. 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 - when stable need LP for CSF cell count, diff, protein, glucose, culture, Gram stain, VDRL, HSV and Crypto ag, LP ordered by ID - continue cefepime, vancomycin renally adjusted for now Severe Sepsis due to UTI , right mastoiditis, aspiration PNA Blood cultures negative, right ear Cx negative Started on Cefepime, vanco, Now added flagyl for possible aspiration PNA Leukocytosis worsening Hypotension/septic shock, resolved weaned off Levophed, BP now stable Left lower lobe infiltrate, poss pneumonia - Treat with antibiotic for now /Large Pericardial effusion. TTE EF>50, no echo evidence of tamponade. cardiology consulted and recommended medical management for now Coffee ground contents from NG aspirate/ Acute GI bleed cont Protonix, Consulted GI- H/h was 6.8 on admission but now stable after 2 un its of PRBc transfusion cont to Monitor H/H, no plan for EGD now MARYANN on CKD 3 baseline Cr around 1.2-1.5mg/dl likely due to underlying sepsis Monitor BMP, Consulted nephrology- no indication for HD now Cr improving with fluid /Acute on chronic anemia has h/o anemia requiring previous blood transfusions could be multifactorial (GI bleed and CKD), s/p 2 Units PRBC transfused on 12/08/18 / h/o Hypertension - BP now stable /Diabetes type 2, SSI as needed /FEN, on TF, not tolerating, Yesterday 12/17 Nurse informed me about about high residuals about 250ml when on only 20ml/hr. Will hold tube feeds, give scheduled reglan and resume later Full code status. 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 In the ED, She was found in acute respiratory failure, requiring bag valve mask ventilation and hypotensive. Noted coffee- ground drainage from OG tube and patient also found to have purulent discharge from the right ear, and stephanie are removed by ED physician. Patient was intubated in the ER and admitted to the ICU for further evaluation and management. Blood culture 12/08/[address] no growth so far. CT head extensive right MCA encephalomalcia, right mastoid opacities. CXR showed small left pleural ef fusion. CT chest showed large pericardial effusion, LLL atelectasis v/s infiltrate and left pleural effusion. s/p 2 units PRBc transfusion on 12/08/18. renal consulted for worsening renal function. Unable to wean off, patient may need trach and PEG. Called by Nurse that she has high residuals on tube feed yesterday, so tube feed put on hold Hospitalist Physical - Physical exam Narrative exam: GEN: Intubated, On vent, not in acute distress HEENT: Normocephalic, atraumatic, Neck: supple, No JVD Lungs: Clear to auscultation bilaterally, no wheeze Abd:soft, non tender, non distended, normal bowel sounds Ext: No edema, no clubbing, no cyanosis Neuro: Intubated,sedated Skin:No rash - Constitutional Vitals: Temp Pulse Resp BP Pulse Ox 98.9 F 84 12 142/42 100 12/18/18 04:00 12/18/18 08:21 12/18/18 08:21 12/18/18 07:45 12/18/18 07:34 General appearance: Present: well-nourished Results - Labs CBC & Chem 7: 12/18/18 04:08 12/18/18 04:08 Labs: Laboratory Last Values WBC 26.5 K/mm3 (4.5-11.0) H 12/18/18 04:08 RBC 3.63 M/mm3 (3.65-5.03) L 12/18/18 04:08 Hgb 8.7 gm/dl (10.1-14.3) L 12/18/18 04:08 Hct 26.8 % (30.3-42.9) L 12/18/18 04:08 MCV 74 fl (79-97) L 12/18/18 04:08 MCH 24 pg (28-32) L 12/18/18 04:08 MCHC 33 % (30-34) 12/18/18 04:08 RDW 23.3 % (13.2-15.2) H 12/18/18 04:08 Plt Count 24 K/mm3 (140-440) L 12/18/18 04:08 Lymph % (Auto) 5.6 % (13.4-35.0) L 12/10/18 04:38 Blaine % (Auto) 4.2 % (0.0-7.3) 12/10/18 04:38 Eos % (Auto) 0.3 % (0.0-4.3) 12/10/18 04:38 Baso % (Auto) 0.1 % (0.0-1.8) 12/10/18 04:38 Lymph # 0.6 K/mm3 (1.2-5.4) L 12/10/18 04:38 Blaine # 0.5 K/mm3 (0.0-0.8) 12/10/18 04:38 Eos # 0.0 K/mm3 (0.0-0.4) 12/10/18 04:38 Baso # 0.0 K/mm3 (0.0-0.1) 12/10/18 04:38 Add Manual Diff Complete 12/17/18 04:24 Total Counted 100 12/17/18 04:24 Seg Neutrophils % Launderer Hand 12/17/18 04:24 Seg Neuts % (Manual) 68.0 % (40.0-70.0) 12/17/18 04:24 Band Neutrophils % 22.0 % 12/17/18 04:24 Lymphocytes % (Manual) 6.0 % (13.4-35.0) L 12/17/18 04:24 Reactive Lymphs % (Man) 0 % 12/17/18 04:24 Monocytes % (Manual) 4.0 % (0.0-7.3) 12/17/18 04:24 Eosinophils % (Manual) 0 % (0.0-4.3) 12/17/18 04:24 Basophils % (Manual) 0 % (0.0-1.8) 12/17/18 04:24 Metamyelocytes % 0 % 12/17/18 04:24 Myelocytes % 0 % 12/17/18 04:24 Promyelocytes % 0 % 12/17/18 04:24 Blast Cells % 0 % 12/17/18 04:24 Nucleated RBC % Not Reportable 12/17/18 04:24 Seg Neutrophils # 10.3 K/mm3 (1.8-7.7) H 12/10/18 04:38 Seg Neutrophils # Man 13.1 K/mm3 (1.8-7.7) H 12/17/18 04:24 Band Neutrophils # 4.2 K/mm3 12/17/18 04:24 Lymphocytes # (Manual) 1.2 K/mm3 (1.2-5.4) 12/17/18 04:24 Abs React Lymphs (Man) 0.0 K/mm3 12/17/18 04:24 Monocytes # (Manual) 0.8 K/mm3 (0.0-0.8) 12/17/18 04:24 Eosinophils # (Manual) 0.0 K/mm3 (0.0-0.4) 12/17/18 04:24 Basophils # (Manual) 0.0 K/mm3 (0.0-0.1) 12/17/18 04:24 Metamyelocytes # 0.0 K/mm3 12/17/18 04:24 Myelocytes # 0.0 K/mm3 12/17/18 04:24 Promyelocytes # 0.0 K/mm3 12/17/18 04:24 Blast Cells # 0.0 K/mm3 12/17/18 04:24 WBC Morphology Not Reportable 12/17/18 04:24 Hypersegmented Neuts Not Reportable 12/17/18 04:24 Hyposegmented Neuts Not Reportable 12/17/18 04:24 Hypogranular Neuts Not Reportable 12/17/18 04:24 Smudge Cells Not Reportable 12/17/18 04:24 Toxic Granulation Not Reportable 12/17/18 04:24 Toxic Vacuolation Not Reportable 12/17/18 04:24 Dohle Bodies Not Reportable 12/17/18 04:24 Pelger-Huet Anomaly Not Reportable 12/17/18 04:24 Mark Rods Not Reportable 12/17/18 04:24 Platelet Estimate Consistent w auto 12/17/18 04:24 Clumped Platelets Not Reportable 12/17/18 04:24 Plt Clumps, EDTA Not Reportable 12/17/18 04:24 Large Platelets Not Reportable 12/17/18 04:24 Giant Platelets Not Reportable 12/17/18 04:24 Platelet Satelliting Not Reportable 12/17/18 04:24 Plt Morphology Comment Not Reportable 12/17/18 04:24 RBC Morphology Not Reportable 12/17/18 04:24 Dimorphic RBCs Not Reportable 12/17/18 04:24 Polychromasia Not Reportable 12/17/18 04:24 Hypochromasia 1+ 12/17/18 04:24 Poikilocytosis Not Reportable 12/17/18 04:24 Anisocytosis 2+ 12/17/18 04:24 Microcytosis Not Reportable 12/17/18 04:24 Macrocytosis 1+ 12/17/18 04:24 Spherocytes Not Reportable 12/17/18 04:24 Pappenheimer Bodies Not Reportable 12/17/18 04:24 Sickle Cells Not Reportable 12/17/18 04:24 Target Cells Not Reportable 12/17/18 04:24 Tear Drop Cells Not Reportable 12/17/18 04:24 Ovalocytes 1+ 12/17/18 04:24 Helmet Cells Not Reportable 12/17/18 04:24 Estrada-[place] Bodies Not Reportable 12/17/18 04:24 Jerome Rings Not Reportable 12/17/18 04:24 Aneesh Cells Few 12/17/18 04:24 Bite Cells Not Reportable 12/17/18 04:24 Crenated Cell Not Reportable 12/17/18 04:24 Elliptocytes Few 12/17/18 04:24 Acanthocytes (Spur) Not Reportable 12/17/18 04:24 Rouleaux Not Reportable 12/17/18 04:24 Hemoglobin C Crystals Not Reportable 12/17/18 04:24 Schistocytes Not Reportable 12/17/18 04:24 Malaria parasites Not Reportable 12/17/18 04:24 Stef Bodies Not Reportable 12/17/18 04:24 Hem Pathologist Commnt No 12/17/18 04:24 PT 20.2 Sec. (12.2-14.9) H 12/12/18 08:00 INR 1.61 (0.87-1.13) H 12/12/18 08:00 APTT 30.9 Sec. (24.2-36.6) 12/10/18 10:40 POC ABG pH 7.325 (7.35-7.45) L 12/15/18 03:37 POC ABG pCO2 28.6 (35-45) L 12/15/18 03:37 POC ABG pO2 105 (80-105) 12/15/18 03:37 POC ABG HCO3 14.9 12/15/18 03:37 POC ABG Total CO2 16 12/15/18 03:37 POC ABG O2 Sat 98 12/15/18 03:37 POC ABG Base Excess -11 12/15/18 03:37 FiO2 25 % 12/15/18 03:37 Sodium 139 mmol/L (137-145) 12/18/18 04:08 Potassium 4.2 mmol/L (3.6-5.0) 12/18/18 04:08 Chloride 114.3 mmol/L (98-107) H 12/18/18 04:08 Carbon Dioxide 16 mmol/L (22-30) L 12/18/18 04:08 Anion Gap 13 mmol/L 12/18/18 04:08 BUN 82 mg/dL (7-17) H 12/18/18 04:08 Creatinine 1.7 mg/dL (0.7-1.2) H 12/18/18 04:08 Estimated GFR 34 ml/min 12/18/18 04:08 BUN/Creatinine Ratio 48 % 12/18/18 04:08 Glucose 98 mg/dL (65-100) 12/18/18 04:08 POC Glucose 174 (70-105) H 12/16/18 00:10 Hemoglobin A1c 4.9 % (4-6) 12/10/18 04:38 Lactic Acid 3.00 mmol/L (0.7-2.0) H* 12/08/18 15:21 Calcium 7.8 mg/dL (8.4-10.2) L 12/18/18 04:08 Phosphorus 5.10 mg/dL (2.5-4.5) H 12/18/18 04:08 Total Bilirubin 1.60 mg/dL (0.1-1.2) H 12/09/18 05:36 AST 44 units/L (5-40) H 12/09/18 05:36 ALT 39 units/L (7-56) 12/09/18 05:36 Alkaline Phosphatase 113 units/L (35-129) 12/09/18 05:36 Total Creatine Kinase 258 units/L (30-135) H 12/08/18 13:40 C-Reactive Protein 19.60 mg/dL (0.00-1.30) H 12/09/18 18:18 Total Protein 5.2 g/dL (6.3-8.2) L 12/09/18 05:36 Albumin 2.4 g/dL (3.9-5) L 12/09/18 05:36 Albumin/Globulin Ratio 0.9 % 12/09/18 05:36 TSH 0.268 mlU/mL (0.270-4.200) L 12/09/18 15:54 Free T4 0.58 ng/dL (0.76-1.46) L 12/09/18 15:54 Urine Color Yolie (Yellow) 12/08/18 13:40 Urine Turbidity Cloudy (Clear) 12/08/18 13:40 Urine pH 7.0 (5.0-7.0) 12/08/18 13:40 Ur Specific Kermit 1.015 (1.003-1.030) 12/08/18 13:40 Urine Protein 100 mg/dl mg/dL (Negative) 12/08/18 13:40 Urine Glucose (UA) Neg mg/dL (Negative) 12/08/18 13:40 Urine Ketones Neg mg/dL (Negative) 12/08/18 13:40 Urine Blood Sm (Negative) 12/08/18 13:40 Urine Nitrite Neg (Negative) 12/08/18 13:40 Urine Bilirubin Neg (Negative) 12/08/18 13:40 Urine Urobilinogen 2.0 mg/dL (<2.0) 12/08/18 13:40 Ur Leukocyte Esterase Mod (Negative) 12/08/18 13:40 Urine WBC (Auto) 157.0 /HPF (0.0-6.0) H 12/08/18 13:40 Urine RBC (Auto) 8.0 /HPF (0.0-6.0) 12/08/18 13:40 U Epithel Cells (Auto) 1.0 /HPF (0-13.0) 12/08/18 13:40 Urine Bacteria (Auto) 4+ /HPF (Negative) 12/08/18 13:40 Urine Mucus 2+ /HPF 12/08/18 13:40 Random Vancomycin 15.9 ug/mL (0-40.0) 12/18/18 04:08 JEFFREY Screen Negative (Negative) 12/09/18 15:54 Blood Type B POSITIVE 12/08/18 13:40 Antibody Screen Negative 12/08/18 13:40 Crossmatch See Detail 12/08/18 13:40 Nutrition/Malnutrition Assess - Dietary Evaluation Nutrition/Malnutrition Findings: Nutrition Notes Start: 12/09/18 12:11 Freq: Status: Active Protocol: Document 12/16/18 15:56 KENNY (Rec: 12/16/18 16:00 KENNY [email or web address]) Nutrition Notes Initial or Follow up Reassessment Current Diagnosis Acute Kidney Injury,Sepsis, Respiratory Failure Other Pertinent Diagnosis Acute encephalopathy, Pericardial effusion Current Diet TF - Glucerna 1.2 at 50ml/hr Labs/Tests BUN 81 Cr 1.6 BG 161 Pertinent Medications Reviewed Height 5 ft 1 in Weight 60.3 kg [place] Body Weight (kg) 47.72 BMI 25.1 Weight change and time frame Current wt obtained from bed scale Subjective/Other Information Pt tolerating TF at goal rate, per RN. Pt remains on vent support. Percent of energy/protein needs met: 100% energy and pro Burn Absent Trauma Absent #1 Nutrition Diagnosis Inadequate oral intake Diagnosis Progress(for reassessment Continues documentation) Is patient on ventilator? Yes Is Patient Ambulatory and/or Out of Bed No REE-([place]-[facility] Jeor-confined to bed) 1183.980 Calculation [facility] Additional Notes Pro needs 1.2-2g/k-121g/ day Fluid needs 1ml/kcal Nutrition Intervention Nutrition Support: Glucerna 1.2 at 50ml/hr Flush with 100ml q4h Kcal 1,440 Protein (gm) 72 Fluid (mL) 966 Goal #1 TF tolerance Goal #2 TF to meet at least 80% energy and pro needs Follow-Up By: 12/23/18 Additional Comments F/U: stable TF, vent status, wt
[2018-12-18] MEDS: MERREM 1,000 MG in NACL 0.9% 100 ML IV SCH ×2 (10:38→21:24)
[2018-12-18] MEDS: PREVACID SOLUTAB FEEDTUBE SCH ×2 (10:38→21:25)
--- NOTE | 2018-12-18 10:38 | Progress Note ---
Assessment and Plan 88 y/o female with acute respiratory failure, altered mental state, presumptive acute renal failure and hypotension with thrombocytopenia and dirty urine analysis. 1. Attempt SBT today 2. Restart feeds, will start at 10 and increase every 8 hours. 3. Remains in renal failure with Cr slightly worse today. 4. Need to have family meeting soon to discuss goals of care. Patient has now been intubated and off sedation for 10 days with no improvement in mental state and other organ failures. CM working on setting up a family meeting. CCT 31 minutes. Subjective Date of service: 12/18/18 Principal diagnosis: coffee-ground drainage Interval history: No acute events. Remains unresponsive. No family currently at bedside and still now way of contacting Sons who are in [place] per report. KUB done and was unremarkable. Tube feeds remain on hold. Platelets continue to drop and white count is increasing. There is no evidence of spontaneous bleeding or has there been any fever. Objective Vital Signs - 12hr 12/17/18 12/17/18 12/17/18 22:58 22:59 23:00 Temperature Pulse Rate 74 72 73 Pulse Rate [ Anterior Bilateral Throughout] Respiratory 9 L 11 L Rate Respiratory Rate [Anterior Bilateral Throughout] Blood Pressure 153/56 153/52 153/52 O2 Sat by Pulse 100 100 99 Oximetry 12/18/18 12/18/18 12/18/18 00:00 01:00 02:00 Temperature 97.6 F Pulse Rate 75 77 80 Pulse Rate [ 81 Anterior Bilateral Throughout] Respiratory 12 10 L 13 Rate Respiratory 18 Rate [Anterior Bilateral Throughout] Blood Pressure 144/61 149/50 149/53 O2 Sat by Pulse 99 99 99 Oximetry 12/18/18 12/18/18 12/18/18 03:00 04:00 05:00 Temperature 98.9 F Pulse Rate 82 82 99 H Pulse Rate [ Anterior Bilateral Throughout] Respiratory 13 14 Rate Respiratory Rate [Anterior Bilateral Throughout] Blood Pressure 141/55 149/51 131/41 O2 Sat by Pulse 99 98 97 Oximetry 12/18/18 12/18/18 12/18/18 06:00 06:11 07:00 Temperature Pulse Rate 88 86 85 Pulse Rate [ Anterior Bilateral Throughout] Respiratory 16 17 Rate Respiratory Rate [Anterior Bilateral Throughout] Blood Pressure 142/42 142/42 133/43 O2 Sat by Pulse 98 98 Oximetry 12/18/18 12/18/18 12/18/18 07:34 07:45 08:00 Temperature Pulse Rate 84 86 83 Pulse Rate [ 86 Anterior Bilateral Throughout] Respiratory 12 Rate Respiratory 14 Rate [Anterior Bilateral Throughout] Blood Pressure 133/43 142/42 116/40 O2 Sat by Pulse 100 98 Oximetry 12/18/18 08:21 Temperature Pulse Rate Pulse Rate [ 84 Anterior Bilateral Throughout] Respiratory Rate Respiratory 12 Rate [Anterior Bilateral Throughout] Blood Pressure O2 Sat by Pulse Oximetry Constitutional: no acute distress, lethargic, other (on vent cmv) Eyes: non-icteric ENT: oropharynx moist, other (ETT in position,large tongue) Neck: supple, no JVD, other (right left IJ lines in place) Ascultation: Bilateral: clear, diminished breath sounds Cardiovascular: regular rate and rhythm, other (pacemaker rhythm) Gastrointestinal: normoactive bowel sounds, non-distended Integumentary: normal Extremities: no cyanosis, no edema, pink and warm Neurologic: pupils equal and round, other (comatose) CBC and BMP: 12/18/18 04:08 12/18/18 04:08 ABG, PT/INR, D-dimer: ABG POC ABG pH 7.325 (7.35-7.45) L 12/15/18 03:37 POC ABG pCO2 28.6 (35-45) L 12/15/18 03:37 POC ABG pO2 105 (80-105) 12/15/18 03:37 POC ABG HCO3 14.9 12/15/18 03:37 POC ABG Total CO2 16 12/15/18 03:37 POC ABG O2 Sat 98 12/15/18 03:37 PT/INR, D-dimer PT 20.2 Sec. (12.2-14.9) H 12/12/18 08:00 INR 1.61 (0.87-1.13) H 12/12/18 08:00 Abnormal lab findings: Abnormal Labs 12/08/18 12/08/18 12/08/18 12:58 13:40 13:40 WBC RBC Hgb Hct MCV MCH RDW Plt Count Lymph % (Auto) Lymph # Seg Neutrophils % Seg Neuts % (Manual) Lymphocytes % (Manual) Monocytes % (Manual) Nucleated RBC % Seg Neutrophils # Seg Neutrophils # Man Lymphocytes # (Manual) Monocytes # (Manual) PT INR POC ABG pH POC ABG pCO2 POC ABG pO2 Sodium Potassium Chloride Carbon Dioxide BUN Creatinine Glucose POC Glucose 143 H Lactic Acid Calcium Phosphorus Total Bilirubin AST Total Creatine Kinase C-Reactive Protein Total Protein Albumin TSH Free T4 Urine WBC (Auto) 157.0 H Crossmatch See Detail 12/08/18 12/08/18 12/08/18 13:40 13:40 13:40 WBC RBC 3.06 L Hgb 6.8 L Hct 21.1 L MCV 69 L MCH 22 L RDW 16.2 H Plt Count 56 L Lymph % (Auto) Lymph # Seg Neutrophils % Seg Neuts % (Manual) Lymphocytes % (Manual) 2.0 L Monocytes % (Manual) Nucleated RBC % Seg Neutrophils # Seg Neutrophils # Man Lymphocytes # (Manual) 0.2 L Monocytes # (Manual) PT INR POC ABG pH POC ABG pCO2 POC ABG pO2 Sodium Potassium 3.2 L Chloride Carbon Dioxide 18 L BUN 64 H Creatinine 1.5 H Glucose 145 H POC Glucose Lactic Acid 4.00 H* Calcium 7.7 L Phosphorus Total Bilirubin AST Total Creatine Kinase 258 H C-Reactive Protein Total Protein 4.6 L Albumin 1.8 L TSH Free T4 Urine WBC (Auto) Crossmatch 12/08/18 12/08/18 12/08/18 14:29 15:21 16:06 WBC RBC Hgb Hct MCV MCH RDW Plt Count Lymph % (Auto) Lymph # Seg Neutrophils % Seg Neuts % (Manual) Lymphocytes % (Manual) Monocytes % (Manual) Nucleated RBC % Seg Neutrophils # Seg Neutrophils # Man Lymphocytes # (Manual) Monocytes # (Manual) PT 20.5 H INR 1.64 H POC ABG pH POC ABG pCO2 34.2 L POC ABG pO2 465 H Sodium Potassium Chloride Carbon Dioxide BUN Creatinine Glucose POC Glucose Lactic Acid 3.00 H* Calcium Phosphorus Total Bilirubin AST Total Creatine Kinase C-Reactive Protein Total Protein Albumin TSH Free T4 Urine WBC (Auto) Crossmatch 12/09/18 12/09/18 12/09/18 02:31 05:36 05:36 WBC 14.5 H RBC Hgb Hct MCV 75 L MCH 25 L RDW 20.4 H Plt Count 68 L Lymph % (Auto) Lymph # Seg Neutrophils % Seg Neuts % (Manual) 81.0 H Lymphocytes % (Manual) 1.0 L Monocytes % (Manual) Nucleated RBC % Seg Neutrophils # Seg Neutrophils # Man 11.7 H Lymphocytes # (Manual) 0.1 L Monocytes # (Manual) PT INR POC ABG pH POC ABG pCO2 POC ABG pO2 Sodium Potassium Chloride 107.6 H Carbon Dioxide 18 L BUN 75 H Creatinine 1.9 H Glucose 136 H POC Glucose 152 H Lactic Acid Calcium 7.9 L Phosphorus Total Bilirubin 1.60 H AST 44 H Total Creatine Kinase C-Reactive Protein Total Protein 5.2 L Albumin 2.4 L TSH Free T4 Urine WBC (Auto) Crossmatch 12/09/18 12/09/18 12/09/18 05:43 10:47 13:46 WBC RBC Hgb Hct MCV MCH RDW Plt Count Lymph % (Auto) Lymph # Seg Neutrophils % Seg Neuts % (Manual) Lymphocytes % (Manual) Monocytes % (Manual) Nucleated RBC % Seg Neutrophils # Seg Neutrophils # Man Lymphocytes # (Manual) Monocytes # (Manual) PT INR POC ABG pH 7.308 L POC ABG pCO2 POC ABG pO2 183 H Sodium Potassium Chloride Carbon Dioxide BUN Creatinine Glucose POC Glucose 150 H 162 H Lactic Acid Calcium Phosphorus Total Bilirubin AST Total Creatine Kinase C-Reactive Protein Total Protein Albumin TSH Free T4 Urine WBC (Auto) Crossmatch 12/09/18 12/09/18 12/09/18 15:54 15:54 16:40 WBC RBC Hgb Hct MCV MCH RDW Plt Count Lymph % (Auto) Lymph # Seg Neutrophils % Seg Neuts % (Manual) Lymphocytes % (Manual) Monocytes % (Manual) Nucleated RBC % Seg Neutrophils # Seg Neutrophils # Man Lymphocytes # (Manual) Monocytes # (Manual) PT INR POC ABG pH POC ABG pCO2 POC ABG pO2 Sodium Potassium Chloride Carbon Dioxide BUN Creatinine Glucose POC Glucose 197 H Lactic Acid Calcium Phosphorus Total Bilirubin AST Total Creatine Kinase C-Reactive Protein Total Protein Albumin TSH 0.268 L Free T4 0.58 L Urine WBC (Auto) Crossmatch 12/09/18 12/09/18 12/09/18 18:18 18:18 21:51 WBC RBC Hgb Hct MCV MCH RDW Plt Count Lymph % (Auto) Lymph # Seg Neutrophils % Seg Neuts % (Manual) Lymphocytes % (Manual) Monocytes % (Manual) Nucleated RBC % Seg Neutrophils # Seg Neutrophils # Man Lymphocytes # (Manual) Monocytes # (Manual) PT INR POC ABG pH POC ABG pCO2 POC ABG pO2 Sodium Potassium Chloride 108.2 H Carbon Dioxide 16 L BUN 89 H Creatinine 2.3 H Glucose 180 H POC Glucose 198 H Lactic Acid Calcium 7.9 L Phosphorus Total Bilirubin AST Total Creatine Kinase C-Reactive Protein 19.60 H Total Protein Albumin TSH Free T4 Urine WBC (Auto) Crossmatch 12/10/18 12/10/18 12/10/18 01:59 04:14 04:38 WBC 11.5 H RBC Hgb Hct MCV 75 L MCH 25 L RDW 21.1 H Plt Count 81 L Lymph % (Auto) 5.6 L Lymph # 0.6 L Seg Neutrophils % 89.8 H Seg Neuts % (Manual) Lymphocytes % (Manual) Monocytes % (Manual) Nucleated RBC % Seg Neutrophils # 10.3 H Seg Neutrophils # Man Lymphocytes # (Manual) Monocytes # (Manual) PT INR POC ABG pH 7.273 L POC ABG pCO2 32.1 L POC ABG pO2 161 H Sodium Potassium Chloride Carbon Dioxide BUN Creatinine Glucose POC Glucose 219 H Lactic Acid Calcium Phosphorus Total Bilirubin AST Total Creatine Kinase C-Reactive Protein Total Protein Albumin TSH Free T4 Urine WBC (Auto) Crossmatch 12/10/18 12/10/18 12/10/18 04:38 05:07 07:26 WBC RBC Hgb Hct MCV MCH RDW Plt Count Lymph % (Auto) Lymph # Seg Neutrophils % Seg Neuts % (Manual) Lymphocytes % (Manual) Monocytes % (Manual) Nucleated RBC % Seg Neutrophils # Seg Neutrophils # Man Lymphocytes # (Manual) Monocytes # (Manual) PT INR POC ABG pH POC ABG pCO2 POC ABG pO2 Sodium Potassium Chloride 112.5 H Carbon Dioxide 14 L BUN 94 H Creatinine 2.4 H Glucose 207 H POC Glucose 221 H 212 H Lactic Acid Calcium 7.7 L Phosphorus Total Bilirubin AST Total Creatine Kinase C-Reactive Protein Total Protein Albumin TSH Free T4 Urine WBC (Auto) Crossmatch 12/10/18 12/10/18 12/10/18 10:40 11:15 14:21 WBC RBC Hgb Hct MCV MCH RDW Plt Count Lymph % (Auto) Lymph # Seg Neutrophils % Seg Neuts % (Manual) Lymphocytes % (Manual) Monocytes % (Manual) Nucleated RBC % Seg Neutrophils # Seg Neutrophils # Man Lymphocytes # (Manual) Monocytes # (Manual) PT 21.4 H INR 1.73 H POC ABG pH 7.214 L POC ABG pCO2 32.8 L POC ABG pO2 Sodium Potassium Chloride Carbon Dioxide BUN Creatinine Glucose POC Glucose 227 H Lactic Acid Calcium Phosphorus Total Bilirubin AST Total Creatine Kinase C-Reactive Protein Total Protein Albumin TSH Free T4 Urine WBC (Auto) Crossmatch 12/10/18 12/10/18 12/11/18 15:47 22:38 03:36 WBC RBC Hgb Hct MCV MCH RDW Plt Count Lymph % (Auto) Lymph # Seg Neutrophils % Seg Neuts % (Manual) Lymphocytes % (Manual) Monocytes % (Manual) Nucleated RBC % Seg Neutrophils # Seg Neutrophils # Man Lymphocytes # (Manual) Monocytes # (Manual) PT INR POC ABG pH POC ABG pCO2 26.2 L POC ABG pO2 138 H Sodium Potassium Chloride Carbon Dioxide BUN Creatinine Glucose POC Glucose 202 H 259 H Lactic Acid Calcium Phosphorus Total Bilirubin AST Total Creatine Kinase C-Reactive Protein Total Protein Albumin TSH Free T4 Urine WBC (Auto) Crossmatch 12/11/18 12/11/18 12/11/18 04:12 05:00 06:19 WBC RBC Hgb Hct MCV MCH RDW Plt Count Lymph % (Auto) Lymph # Seg Neutrophils % Seg Neuts % (Manual) Lymphocytes % (Manual) Monocytes % (Manual) Nucleated RBC % Seg Neutrophils # Seg Neutrophils # Man Lymphocytes # (Manual) Monocytes # (Manual) PT 19.5 H INR 1.54 H POC ABG pH POC ABG pCO2 24.6 L POC ABG pO2 119 H Sodium Potassium Chloride Carbon Dioxide BUN Creatinine Glucose POC Glucose 174 H Lactic Acid Calcium Phosphorus Total Bilirubin AST Total Creatine Kinase C-Reactive Protein Total Protein Albumin TSH Free T4 Urine WBC (Auto) Crossmatch 12/11/18 12/11/18 12/11/18 11:10 11:10 18:10 WBC 14.3 H RBC Hgb Hct MCV 73 L MCH 24 L RDW 21.5 H Plt Count Lymph % (Auto) Lymph # Seg Neutrophils % Seg Neuts % (Manual) Lymphocytes % (Manual) Monocytes % (Manual) Nucleated RBC % Seg Neutrophils # Seg Neutrophils # Man Lymphocytes # (Manual) Monocytes # (Manual) PT INR POC ABG pH POC ABG pCO2 POC ABG pO2 Sodium Potassium Chloride 110.5 H Carbon Dioxide 15 L BUN 101 H Creatinine 2.4 H Glucose 119 H POC Glucose 147 H Lactic Acid Calcium 7.7 L Phosphorus Total Bilirubin AST Total Creatine Kinase C-Reactive Protein Total Protein Albumin TSH Free T4 Urine WBC (Auto) Crossmatch 12/11/18 12/12/1812/12/19 23:25 05:37 06:03 WBC RBC Hgb Hct MCV MCH RDW Plt Count Lymph % (Auto) Lymph # Seg Neutrophils % Seg Neuts % (Manual) Lymphocytes % (Manual) Monocytes % (Manual) Nucleated RBC % Seg Neutrophils # Seg Neutrophils # Man Lymphocytes # (Manual) Monocytes # (Manual) PT INR POC ABG pH 7.346 L POC ABG pCO2 28.3 L POC ABG pO2 120 H Sodium Potassium Chloride Carbon Dioxide BUN Creatinine Glucose POC Glucose 143 H 154 H Lactic Acid Calcium Phosphorus Total Bilirubin AST Total Creatine Kinase C-Reactive Protein Total Protein Albumin TSH Free T4 Urine WBC (Auto) Crossmatch 12/12/18 12/12/18 12/12/18 08:00 08:00 08:00 WBC 16.2 H RBC Hgb Hct MCV 74 L MCH 25 L RDW 21.9 H Plt Count 21 L Lymph % (Auto) Lymph # Seg Neutrophils % Seg Neuts % (Manual) Lymphocytes % (Manual) Monocytes % (Manual) Nucleated RBC % Seg Neutrophils # Seg Neutrophils # Man Lymphocytes # (Manual) Monocytes # (Manual) PT 20.2 H INR 1.61 H POC ABG pH POC ABG pCO2 POC ABG pO2 Sodium Potassium Chloride 107.4 H Carbon Dioxide 16 L BUN 101 H Creatinine 2.3 H Glucose 169 H POC Glucose Lactic Acid Calcium 8.2 L Phosphorus Total Bilirubin AST Total Creatine Kinase C-Reactive Protein Total Protein Albumin TSH Free T4 Urine WBC (Auto) Crossmatch 12/12/18 12/12/18 12/13/18 12:59 18:01 04:28 WBC 18.6 H RBC Hgb Hct MCV 74 L MCH 24 L RDW 21.8 H Plt Count 34 L Lymph % (Auto) Lymph # Seg Neutrophils % Seg Neuts % (Manual) 97.0 H Lymphocytes % (Manual) 2.0 L Monocytes % (Manual) Nucleated RBC % 1.0 H Seg Neutrophils # Seg Neutrophils # Man 18.0 H Lymphocytes # (Manual) 0.4 L Monocytes # (Manual) PT INR POC ABG pH POC ABG pCO2 POC ABG pO2 Sodium Potassium Chloride Carbon Dioxide BUN Creatinine Glucose POC Glucose 158 H 123 H Lactic Acid Calcium Phosphorus Total Bilirubin AST Total Creatine Kinase C-Reactive Protein Total Protein Albumin TSH Free T4 Urine WBC (Auto) Crossmatch 12/13/18 12/13/18 12/13/18 04:28 04:45 19:17 WBC RBC Hgb Hct MCV MCH RDW Plt Count Lymph % (Auto) Lymph # Seg Neutrophils % Seg Neuts % (Manual) Lymphocytes % (Manual) Monocytes % (Manual) Nucleated RBC % Seg Neutrophils # Seg Neutrophils # Man Lymphocytes # (Manual) Monocytes # (Manual) PT INR POC ABG pH 7.327 L POC ABG pCO2 31.1 L POC ABG pO2 136 H Sodium Potassium Chloride 112.0 H Carbon Dioxide 17 L BUN 97 H Creatinine 2.2 H Glucose POC Glucose 106 H Lactic Acid Calcium 8.1 L Phosphorus Total Bilirubin AST Total Creatine Kinase C-Reactive Protein Total Protein Albumin TSH Free T4 Urine WBC (Auto) Crossmatch 12/13/18 12/14/18 12/14/18 23:24 03:35 03:35 WBC 22.0 H RBC Hgb Hct MCV 75 L MCH 24 L RDW 22.2 H Plt Count 44 L Lymph % (Auto) Lymph # Seg Neutrophils % Seg Neuts % (Manual) 96.0 H Lymphocytes % (Manual) 3.0 L Monocytes % (Manual) Nucleated RBC % Seg Neutrophils # Seg Neutrophils # Man 21.1 H Lymphocytes # (Manual) 0.7 L Monocytes # (Manual) PT INR POC ABG pH POC ABG pCO2 POC ABG pO2 Sodium 136 L Potassium Chloride 107.2 H Carbon Dioxide 15 L BUN 87 H Creatinine 1.7 H Glucose 156 H POC Glucose 108 H Lactic Acid Calcium 7.7 L Phosphorus Total Bilirubin AST Total Creatine Kinase C-Reactive Protein Total Protein Albumin TSH Free T4 Urine WBC (Auto) Crossmatch 12/14/18 12/14/18 12/14/18 04:58 05:37 12:10 WBC RBC Hgb Hct MCV MCH RDW Plt Count Lymph % (Auto) Lymph # Seg Neutrophils % Seg Neuts % (Manual) Lymphocytes % (Manual) Monocytes % (Manual) Nucleated RBC % Seg Neutrophils # Seg Neutrophils # Man Lymphocytes # (Manual) Monocytes # (Manual) PT INR POC ABG pH 7.301 L POC ABG pCO2 32.6 L POC ABG pO2 138 H Sodium Potassium Chloride Carbon Dioxide BUN Creatinine Glucose POC Glucose 178 H 208 H Lactic Acid Calcium Phosphorus Total Bilirubin AST Total Creatine Kinase C-Reactive Protein Total Protein Albumin TSH Free T4 Urine WBC (Auto) Crossmatch 12/14/18 12/14/18 12/15/18 17:44 23:16 03:37 WBC RBC Hgb Hct MCV MCH RDW Plt Count Lymph % (Auto) Lymph # Seg Neutrophils % Seg Neuts % (Manual) Lymphocytes % (Manual) Monocytes % (Manual) Nucleated RBC % Seg Neutrophils # Seg Neutrophils # Man Lymphocytes # (Manual) Monocytes # (Manual) PT INR POC ABG pH 7.325 L POC ABG pCO2 28.6 L POC ABG pO2 Sodium Potassium Chloride Carbon Dioxide BUN Creatinine Glucose POC Glucose 172 H 123 H Lactic Acid Calcium Phosphorus Total Bilirubin AST Total Creatine Kinase C-Reactive Protein Total Protein Albumin TSH Free T4 Urine WBC (Auto) Crossmatch 12/15/18 12/15/18 12/15/18 05:30 05:30 05:43 WBC 20.1 H RBC Hgb 9.5 L Hct 29.2 L MCV 74 L MCH 24 L RDW 22.7 H Plt Count 48 L Lymph % (Auto) Lymph # Seg Neutrophils % Seg Neuts % (Manual) 96.0 H Lymphocytes % (Manual) 1.0 L Monocytes % (Manual) Nucleated RBC % Seg Neutrophils # Seg Neutrophils # Man 19.3 H Lymphocytes # (Manual) 0.2 L Monocytes # (Manual) PT INR POC ABG pH POC ABG pCO2 POC ABG pO2 Sodium Potassium Chloride 110.8 H Carbon Dioxide 17 L BUN 83 H Creatinine 1.6 H Glucose 150 H POC Glucose 151 H Lactic Acid Calcium 7.7 L Phosphorus Total Bilirubin AST Total Creatine Kinase C-Reactive Protein Total Protein Albumin TSH Free T4 Urine WBC (Auto) Crossmatch 12/15/18 12/15/18 12/16/18 12:56 18:21 00:10 WBC RBC Hgb Hct MCV MCH RDW Plt Count Lymph % (Auto) Lymph # Seg Neutrophils % Seg Neuts % (Manual) Lymphocytes % (Manual) Monocytes % (Manual) Nucleated RBC % Seg Neutrophils # Seg Neutrophils # Man Lymphocytes # (Manual) Monocytes # (Manual) PT INR POC ABG pH POC ABG pCO2 POC ABG pO2 Sodium Potassium Chloride Carbon Dioxide BUN Creatinine Glucose POC Glucose 190 H 143 H 174 H Lactic Acid Calcium Phosphorus Total Bilirubin AST Total Creatine Kinase C-Reactive Protein Total Protein Albumin TSH Free T4 Urine WBC (Auto) Crossmatch 12/16/18 12/16/18 12/17/18 05:30 05:30 04:24 WBC 17.1 H 19.2 H RBC Hgb 9.1 L 9.5 L Hct 28.8 L 29.7 L MCV 76 L 76 L MCH 24 L 24 L RDW 23.5 H 24.4 H Plt Count 37 L 26 L Lymph % (Auto) Lymph # Seg Neutrophils % Seg Neuts % (Manual) Lymphocytes % (Manual) 9.0 L 6.0 L Monocytes % (Manual) 9.0 H Nucleated RBC % Seg Neutrophils # Seg Neutrophils # Man 9.6 H 13.1 H Lymphocytes # (Manual) Monocytes # (Manual) 1.5 H PT INR POC ABG pH POC ABG pCO2 POC ABG pO2 Sodium Potassium Chloride 110.8 H Carbon Dioxide 15 L BUN 81 H Creatinine 1.6 H Glucose 161 H POC Glucose Lactic Acid Calcium 7.6 L Phosphorus Total Bilirubin AST Total Creatine Kinase C-Reactive Protein Total Protein Albumin TSH Free T4 Urine WBC (Auto) Crossmatch 12/17/18 12/17/18 12/18/18 04:24 06:42 04:08 WBC RBC Hgb Hct MCV MCH RDW Plt Count Lymph % (Auto) Lymph # Seg Neutrophils % Seg Neuts % (Manual) Lymphocytes % (Manual) Monocytes % (Manual) Nucleated RBC % Seg Neutrophils # Seg Neutrophils # Man Lymphocytes # (Manual) Monocytes # (Manual) PT INR POC ABG pH POC ABG pCO2 POC ABG pO2 Sodium 134 L Potassium Chloride 110.0 H 113.1 H 114.3 H Carbon Dioxide 14 L 13 L 16 L BUN 83 H 82 H 82 H Creatinine 1.6 H 1.6 H 1.7 H Glucose POC Glucose Lactic Acid Calcium 7.8 L 8.0 L 7.8 L Phosphorus 5.10 H Total Bilirubin AST Total Creatine Kinase C-Reactive Protein Total Protein Albumin TSH Free T4 Urine WBC (Auto) Crossmatch 12/18/18 04:08 WBC 26.5 H RBC 3.63 L Hgb 8.7 L Hct 26.8 L MCV 74 L MCH 24 L RDW 23.3 H Plt Count 24 L Lymph % (Auto) Lymph # Seg Neutrophils % Seg Neuts % (Manual) Lymphocytes % (Manual) Monocytes % (Manual) Nucleated RBC % Seg Neutrophils # Seg Neutrophils # Man Lymphocytes # (Manual) Monocytes # (Manual) PT INR POC ABG pH POC ABG pCO2 POC ABG pO2 Sodium Potassium Chloride Carbon Dioxide BUN Creatinine Glucose POC Glucose Lactic Acid Calcium Phosphorus Total Bilirubin AST Total Creatine Kinase C-Reactive Protein Total Protein Albumin TSH Free T4 Urine WBC (Auto) Crossmatch Allied health notes reviewed: nursing
[2018-12-18] MEDS: SODIUM CHLORIDE FLUSH SYRINGE 10 ML IV SCH ×2 (10:40→21:26)
[2018-12-18] MEDS: FLAGYL 500 MG/100 ML 500 MG/100 ML BAG IV SCH (10:56)
--- NOTE | 2018-12-18 11:11 | Progress Note ---
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 - Blood culture 12/08/2018 no growth so far. - Lactate 4 on admission - unable to do LP due to thrombocytopenia 2) UTI: UA wbc 157, LE mod, on cefepime. Urine culture was not sent. 3) Right otitis media / mastoiditis: Per grand-daughter, she has been c/o right ear pain and drainage last week. Patient was putting Neosporin and perhaps ear stephanie in the patient's ear. On physical exam, patient found to have purulent discharge from the right ear, and stephanie were removed by ED physician. There was probable perforation of the right sided tympanic membrane per ED physician. Got dexamethasone. 4) Acute encephalopathy: not better, from sepsis versus meningitis versus CVA. CT head extensive right MCA encephalomalcia, right mastoid opacities. 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 5) Acute respiratory failure: CXR showed small left pleural effusion. CT chest showed large pericardial effusion, LLL atelectasis v/s infiltrate and left pleural effusion. 6) ?GI bleed 7) Severe thrombocytopenia: from sepsis 8) Large pericardial effusion: TTE EF>50, no echo evidence of tamponade 9) Penicillin allergy: tolerating cefepime 10) CKD: renally adjusted antibiotics Recommendations: - worsening sepsis, will continue IV Meropenem - continue IV vancomycin, renally adjusted - overall extremely poor prognosis Ny Donnelly MD [facility] C: [phone] O: [phone] F: [phone] Subjective Date of service: 12/18/18 Principal diagnosis: coffee-ground drainage Interval history: Remains on the vent, unresponsive. WBC increased. No diarrhea. Objective - Exam Narrative Exam: Physical Exam: Constitutional: sedated, intubated Head, Ears, Nose: Normocephalic, atraumatic. nose normal. Right ear with packing Eyes: Conjunctivae/corneas clear. No icterus. No ptosis. Neck: Supple, no meningeal signs Oral: intubated Cardiovascular: S1, S2 normal. Respiratory: Good air entry, clear to auscultation bilaterally GI: Soft, non-tender; bowel sounds hypoactive. No peritoneal signs Musculoskeletal: No pedal edema, no cyanosis. Skin: No rash or abscess Hem/Lymphatic: No palpable cervical or supraclavicular nodes. No lymphangitis Psych: no agitation Neurological: sedated, intubated, on vent - Constitutional Vitals: Vital Signs Temp Pulse Resp BP Pulse Ox 98.9 F 84 12 116/40 100 12/18/18 04:00 12/18/18 08:21 12/18/18 08:21 12/18/18 08:00 12/18/18 08:00 Temperature -Last 24 Hours Temperature 98.9 F Temperature 97.6 F Temperature 97.8 F Temperature 97.5 F Temperature 98.3 F - Labs CBC & Chem 7: 12/18/18 04:08 12/18/18 04:08 Labs: Abnormal lab results 12/18/18 12/18/18 Range/Units 04:08 04:08 WBC 26.5 H (4.5-11.0) K/mm3 RBC 3.63 L (3.65-5.03) M/mm3 Hgb 8.7 L (10.1-14.3) gm/dl Hct 26.8 L (30.3-42.9) % MCV 74 L (79-97) fl MCH 24 L (28-32) pg RDW 23.3 H (13.2-15.2) % Plt Count 24 L (140-440) K/mm3 Chloride 114.3 H (98-107) mmol/L Carbon Dioxide 16 L (22-30) mmol/L BUN 82 H (7-17) mg/dL Creatinine 1.7 H (0.7-1.2) mg/dL Calcium 7.8 L (8.4-10.2) mg/dL Phosphorus 5.10 H (2.5-4.5) mg/dL
[2018-12-18] MEDS ORDERED: NACL 0.9% 1000 ML 1,000 ML IV ONE ×2 (14:00→15:30)
[2018-12-18] MEDS ORDERED: NACL 0.9% 500 ML 500 ML IV ONE (15:25)
[2018-12-18] MEDS ORDERED: NACL 0.9% 500 ML 500 ML IV NR (15:30)
--- NOTE | 2018-12-18 17:15 | Progress Note ---
Assessment and Plan - Patient Problems (1) Acute kidney failure with tubular necrosis Current Visit: Yes Status: Acute Plan to address problem: Kidney function is unchanged. Patient has peripheral edema. Positive fluid balance but incomplete collection of urine output. Follow-up electrolytes and renal function (2) Acidosis Current Visit: Yes Status: Acute Plan to address problem: Bicarbonate is improving. Continue supplements. (3) Sepsis Current Visit: Yes Status: Acute Qualifiers: Sepsis type: sepsis due to unspecified organism Qualified Code(s): A41.9 - Sepsis, unspecified organism Plan to address problem: Sepsis secondary to urinary tract infections versus right otitis media/mastoidit is versus meningitis/encephalitis. Unable to get an LP due to the thrombocytopenia. Leukocytosis is worsening and is concerning. Continue antibiotics per infectious disease. Poor prognosis (4) Acute encephalopathy Current Visit: Yes Status: Acute Plan to address problem: Toxic/metabolic encephalopathy. Monitor mental status. 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 No family at the bedside. Patient is still unresponsive. Objective - Exam Narrative Exam: Elderly -[place] female lying in bed intubated on the ventilator HEENT: NCAT, endotracheal tube intact, tongue protruding Neck: Supple, no venous distention CVS: S1S2 RRR with no murmur, rub or gallop Chest: Clear to auscultation Abdomen: Protuberant, soft, nontender, no organomegaly, bowel sounds are present Extremities: 2+ edema Skin is warm and dry Genitourinary deferred Neuro: Does not open eyes, not following commands - Vital Signs Vital signs: Vital Signs - 12hr 12/18/18 12/18/18 12/18/18 06:00 06:11 07:00 Temperature Pulse Rate 88 86 85 Pulse Rate [ Anterior Bilateral Throughout] Respiratory 16 17 Rate Respiratory Rate [Anterior Bilateral Throughout] Blood Pressure 142/42 142/42 133/43 O2 Sat by Pulse 98 98 Oximetry 12/18/18 12/18/1819 07:34 07:45 08:00 Temperature 99.1 F Pulse Rate 84 86 83 Pulse Rate [ 86 Anterior Bilateral Throughout] Respiratory 12 Rate Respiratory 14 Rate [Anterior Bilateral Throughout] Blood Pressure 133/43 142/42 116/40 O2 Sat by Pulse 100 98 Oximetry 12/18/18 12/18/18 12/18/18 08:21 09:00 10:00 Temperature Pulse Rate 76 80 Pulse Rate [ 84 Anterior Bilateral Throughout] Respiratory 12 18 Rate Respiratory 12 Rate [Anterior Bilateral Throughout] Blood Pressure 103/31 131/44 O2 Sat by Pulse 98 98 Oximetry 12/18/18 12/18/18 12/18/18 11:00 12:00 12:14 Temperature 98.8 F Pulse Rate 76 70 76 Pulse Rate [ Anterior Bilateral Throughout] Respiratory 18 18 Rate Respiratory Rate [Anterior Bilateral Throughout] Blood Pressure 113/42 96/33 96/33 O2 Sat by Pulse 99 98 99 Oximetry 12/18/18 12/18/18 12/18/18 13:00 13:09 13:38 Temperature Pulse Rate 68 79 Pulse Rate [ 72 Anterior Bilateral Throughout] Respiratory 18 Rate Respiratory 18 Rate [Anterior Bilateral Throughout] Blood Pressure 97/31 97/31 O2 Sat by Pulse 98 Oximetry 12/18/18 14:12 Temperature Pulse Rate Pulse Rate [ 68 Anterior Bilateral Throughout] Respiratory Rate Respiratory 18 Rate [Anterior Bilateral Throughout] Blood Pressure O2 Sat by Pulse Oximetry - Lab 12/18/18 04:08 12/18/18 04:08 Most recent lab results Calcium 7.8 mg/dL (8.4-10.2) L 12/18/18 04:08 Phosphorus 5.10 mg/dL (2.5-4.5) H 12/18/18 04:08 Medications & Allergies - Medications Allergies/Adverse Reactions: Allergies Penicillins Allergy (Verified 12/08/18 13:13) Hives Home Medications: Home Medications Medication Instructions Recorded Confirmed Last Taken Type ALBUTEROL Inhaler (OR & NICU) 2 puff IH QID PRN #1 inhalation 12/21/16 12/08/18 Unknown Rx [Proair] Albuterol Sulfate [Albuterol 0.63% 0.63 mg IH TID PRN #90 ml 12/21/16 12/08/18 Unknown Rx NEBS] Amlodipine Besylate [Norvasc] 10 mg PO DAILY #90 tablet 12/21/16 12/08/18 Unknown Rx AtorvaSTATin [Lipitor] 20 mg PO QHS #90 tablet 12/21/16 12/08/18 Unknown Rx Hydralazine HCl [Apresoline TAB] 50 mg PO TID #90 tablet 12/21/16 12/08/18 Unknown Rx Metoprolol [Lopressor TAB] 25 mg PO BID #90 tablet 12/21/16 12/08/18 Unknown Rx Promethazine /Codeine 5 ml PO Q6H PRN #100 ml 12/21/16 12/08/18 Unknown Rx [Phenergan/Codeine 6.25-10 mg/5 ml] Active Medications: Generic Name Dose Route Start Last Admin Trade Name Freq PRN Reason Stop Dose Admin Acetaminophen 650 mg 12/09/18 01:00 12/09/18 10:00 Tylenol HI 650 mg Q4H PRN Administration Pain MILD(1-3)/Fever >100.5/TURNER Albuterol 2.5 mg 12/09/18 00:31 Proventil IH Q4HRT PRN Shortness Of Breath Albuterol/Ipratropium 1 ampul 12/09/18 02:00 12/18/18 13:10 Duoneb *Not For Prn Use* IH 1 ampul Q6HRT KOLE Administration Lipase/Protease/Amylase 1 each 12/09/18 04:05 Pancreazbarbara Pena 10,500 Unit FEEDTUBE PRN PRN For Clogged Feeding Tube Hydralazine HCl 50 mg 12/10/18 14:00 12/18/18 13:38 Apresoline PO Not Given Q8HR KOLE Hydrophilic Ointment 1 applic 12/14/18 13:00 Vaseline Lip Therapy TP DIRECT PRN Dry tongue Meropenem 1,000 mg/ Sodium 100 mls @ 100 mls/hr 12/17/18 15:30 12/18/18 10:38 Chloride IV 100 mls/hr Q12HR KOLE Administration Protocol Sodium Bicarbonate 75 meq/ 1,075 mls @ 75 mls/hr 12/17/18 18:00 12/18/18 08:10 Dextrose IV 75 mls/hr DIRECT KOLE Administration Sodium Chloride 500 mls @ 0 mls/hr 12/18/18 15:30 Nacl 0.9% 500 Ml IV 12/18/18 20:00 ONCE NR As Directed Insulin Human Lispro 0 unit 12/11/18 12:00 12/18/18 13:32 Humalog SUB-Q Not Given Q6HR [facility] Protocol Labetalol HCl 10 mg 12/09/18 16:18 12/15/18 12:32 Normodyne IV 10 mg Q4H PRN Administration Hypertension Lansoprazole 30 mg 12/12/18 10:00 12/18/18 10:38 Prevacid Solutab FEEDTUBE 30 mg BID KOLE Administration Multi-Ingred Cream/Lotion/Oil/Oint 1 applic 12/08/18 13:31 Artificial Tears Ophth Oint OU Q4HR PRN Dry Eye(s) Ondansetron HCl 4 mg 12/09/18 00:31 Zofran IV Q8H PRN Nausea And Vomiting Simple Syrup 15 ml 12/09/18 04:05 Simple Syrup FEEDTUBE PRN PRN Hypoglycemia Simple Syrup 30 ml 12/09/18 04:05 Simple Syrup FEEDTUBE PRN PRN Hypoglycemia Sodium Bicarbonate 325 mg 12/09/18 04:05 Sodium Bicarbonate FEEDTUBE PRN PRN For Clogged Feeding Tube Sodium Chloride 10 ml 12/09/18 10:00 12/18/18 10:40 Sodium Chloride Flush Syringe 10 Ml IV 10 ml BID KOLE Administration Sodium Chloride 10 ml 12/09/18 00:31 12/17/18 10:47 Sodium Chloride Flush Syringe 10 Ml IV 10 ml PRN PRN Administration LINE FLUSH
--- NOTE | 2018-12-18 17:44 | Event Note ---
Date: 12/18/18 Hospital physician, Dr. Ch, has requested emergent placement of central venous access. Patient hypotensive shocky, with thrombocytopenia, exhibiting signs of multiorgan dysfunction The Hospital physician and myself have administratively consented the patient for emergent placement of intraosseous line, which may be used for 24 hours for vasopressor administration. In the left lower extremity, proximal tibia, standard aseptic technique is used, skin site is cleansed with chlorhexidine, and a 25 mm 15-gauge needle is placed with an easy IO gun, and easy and obvious aspiration of bone marrow contents. The line is secured into place, and I have informed the Hospital physician they may use this line for the next 24 hours for vasopressor administration. Prognosis is extremely poor. I will defer to the inpatient team for post IO placement management.
--- NOTE | 2018-12-18 17:50 | Event Note ---
Date: 12/18/18 called by Nurse that BP low. I ordered bolus iv fluid but still low. I recommended Levophed iv but she does not have central line and Platelet count 24. I discussed with Dr. Moraes and he placed an IO line. I ordered 2 Units Platelets. Blood pressure improved up to 119/51 without starting pressors. I later discussed with Dr. Hicks. Will hold off central line placement since BP stable and platelet 24. Will hold Platelet and transfuse in morning prior to central line placement.
--- NOTE | 2018-12-18 17:57 | Event Note ---
Date: 12/18/18 Contacted just now for central line placement. Discussed w Dr Berkowitz. Patient has access via IV and IO catheter. Prognosis is extremely poor. Platelet count is 24K and dropping. Will hold off on central line for now. Re-assess tomorrow if needed.
[2018-12-18] MEDS: LEVOPHED DRIP 4 MG/NS 250 ML 4 MG/250 ML BAG IV SCH (18:54)
[2018-12-18] MEDS ORDERED: PROAMATINE PO SCH (18:59)
[2018-12-18] MEDS ORDERED: PROAMATINE PO ONE (19:30)
[2018-12-19] MEDS: DUONEB *Not for PRN Use IH SCH ×4 (01:07→19:02)
[2018-12-19 05:11] LABS: Hematocrit 22.6 % (30.3-42.9); Hemoglobin 7.2 gm/dl (10.1-14.3); Mean Corpuscular HGB Conc 32 % (30-34); Mean Corpuscular Volume 75 fl (79-97); Red Blood Count 3.01 M/mm3 (3.65-5.03)
[2018-12-19 05:12] LABS: Red Cell Distribution Width 24.5 % (13.2-15.2)
[2018-12-19 05:30] LABS: Calcium 7.4 mg/dL (8.4-10.2)
[2018-12-19] MEDS: HumaLOG SUB-Q SCH ×3 (05:39→18:28)
[2018-12-19] MEDS: APRESOLINE PO SCH (05:40)
[2018-12-19 05:58] LABS: Platelet Count 52 K/mm3 (140-440)
[2018-12-19] MEDS: MERREM 1,000 MG in NACL 0.9% 100 ML IV SCH (09:43)
[2018-12-19] MEDS: PROAMATINE PO SCH ×3 (09:44→15:54)
[2018-12-19] MEDS: PREVACID SOLUTAB FEEDTUBE SCH ×2 (09:44→21:52)
--- NOTE | 2018-12-19 09:49 | Progress Note ---
Assessment and Plan Assessment and plan: Acute respiratory failure, intubated Likely from underlying severe sepsis, encephalopathy and pleural effusion? 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 CT chest showed large pericardial effusion, LLL atelectasis v/s infiltrate and left pleural effusion. Unable to wean off, may need trach and PEG Acute encephalopathy: - likely from sepsis alone versus possible meningitis vs seizure. CT head extensive right MCA encephalomalcia, right mastoid opacities. neurology ordered EEG. 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 - when stable need LP for CSF cell count, diff, protein, glucose, culture, Gram stain, VDRL, HSV and Crypto ag, LP ordered by ID - continue cefepime, vancomycin renally adjusted for now Severe Sepsis due to UTI , right mastoiditis, aspiration PNA Blood cultures negative, right ear Cx negative Started on Cefepime, vanco, Now added flagyl for possible aspiration PNA Shock, hypotension did not respond to iv bolus so started on Levophed Cont Levophed using IO line placed yesterday as emergency For PICC placement today Leukocytosis worsening Hypotension/septic shock, resolved weaned off Levophed, BP now stable Left lower lobe infiltrate, poss pneumonia - Treat with antibiotic for now /Large Pericardial effusion. TTE EF>50, no echo evidence of tamponade. Cardiology consulted, following and recommended medical management for now Coffee ground contents from NG aspirate/ Acute GI bleed cont Protonix, Consulted GI- H/h was 6.8 on admission but now stable after 2 units of PRBc transfusion cont to Monitor H/H, no plan for EGD now MARYANN on CKD 3 baseline Cr around 1.2-1.5mg/dl likely due to underlying sepsis Monitor BMP, Consulted nephrology- no indication for HD now Cr improving with fluid /Acute on chronic anemia has h/o anemia requiring previous blood transfusions could be multifactorial (GI bleed and CKD), s/p 2 Units PRBC transfused on 12/08/18 / h/o Hypertension - BP now stable /Diabetes type 2, SSI as needed /FEN, on TF, not tolerating, On 12/17 Nurse informed me about about high residuals about 250ml when on only 20ml/hr. Will hold tube feeds, give scheduled reglan and resume later Full code status. 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 In the ED, She was found in acute respiratory failure, requiring bag valve mask ventilation and hypotensive. Noted coffee-ground drainage from OG tube and patient also found to have purulent discharge from the right ear, and stephanie are removed by ED physician. Patient was intubated in the ER and admitted to the ICU for further evaluation and management. Blood culture 12/08/[address] no [address] so [address]. CT head extensive right MCA encephalomalcia, right mastoid opacities. CXR showed small left pleural effusion. CT chest showed large pericardial effusion, LLL atelectasis v/s infiltrate and left pleural effusion. s/p 2 units PRBc transfusion on 12/08/18. renal consulted for worsening renal function. Unable to wean off, patient may need trach and PEG. Patient became hypotensive yesterday, did not respond to 2 liters NS bolus so started on Levophed IO. Could not get central line because low platelet 24. Platelet transfused overnight now 52 Hospitalist Physical - Physical exam Narrative exam: GEN: Intubated, On vent, HEENT: Normocephalic, atraumatic, Neck: supple, No JVD Lungs: Clear to auscultation bilaterally, no wheeze Abd:soft, non tender, non distended, normal bowel sounds Ext: No edema, no clubbing, no cyanosis Neuro: Intubated, Unresponsive, does not follow commands Skin:No rash - Constitutional Vitals: Temp Pulse Resp BP Pulse Ox 98.6 F 80 18 150/54 100 12/19/18 04:00 12/19/18 08:00 12/19/18 08:00 12/19/18 08:00 12/19/18 08:00 Results - Labs CBC & Chem 7: 12/19/18 04:22 12/19/18 04:22 Labs: Laboratory Last Values WBC 20.4 K/mm3 (4.5-11.0) H 12/19/18 04:22 RBC 3.01 M/mm3 (3.65-5.03) L 12/19/18 04:22 Hgb 7.2 gm/dl (10.1-14.3) L 12/19/18 04:22 Hct 22.6 % (30.3-42.9) L 12/19/18 04:22 MCV 75 fl (79-97) L 12/19/18 04:22 MCH 24 pg (28-32) L 12/19/18 04:22 MCHC 32 % (30-34) 12/19/18 04:22 RDW 24.5 % (13.2-15.2) H 12/19/18 04:22 Plt Count 52 K/mm3 (140-440) L D 12/19/18 04:22 Lymph % (Auto) 5.6 % (13.4-35.0) L 12/10/18 04:38 [place] % (Auto) 4.2 % (0.0-7.3) 12/10/18 04:38 Eos % (Auto) 0.3 % (0.0-4.3) 12/10/18 04:38 Baso % (Auto) 0.1 % (0.0-1.8) 12/10/18 04:38 Lymph # 0.6 K/mm3 (1.2-5.4) L 12/10/18 04:38 [place] # 0.5 K/mm3 (0.0-0.8) 12/10/18 04:38 Eos # 0.0 K/mm3 (0.0-0.4) 12/10/18 04:38 Baso # 0.0 K/mm3 (0.0-0.1) 12/10/18 04:38 Add Manual Diff Complete 12/17/18 04:24 Total Counted 100 12/17/18 04:24 Seg Neutrophils % Senior Production Manager 12/17/18 04:24 Seg Neuts % (Manual) 68.0 % (40.0-70.0) 12/17/18 04:24 Band Neutrophils % 22.0 % 12/17/18 04:24 Lymphocytes % (Manual) 6.0 % (13.4-35.0) L 12/17/18 04:24 Reactive Lymphs % (Man) 0 % 12/17/18 04:24 Monocytes % (Manual) 4.0 % (0.0-7.3) 12/17/18 04:24 Eosinophils % (Manual) 0 % (0.0-4.3) 12/17/18 04:24 Basophils % (Manual) 0 % (0.0-1.8) 12/17/18 04:24 Metamyelocytes % 0 % 12/17/18 04:24 Myelocytes % 0 % 12/17/18 04:24 Promyelocytes % 0 % 12/17/18 04:24 Blast Cells % 0 % 12/17/18 04:24 Nucleated RBC % Not Reportable 12/17/18 04:24 Seg Neutrophils # 10.3 K/mm3 (1.8-7.7) H 12/10/18 04:38 Seg Neutrophils # Man 13.1 K/mm3 (1.8-7.7) H 12/17/18 04:24 Band Neutrophils # 4.2 K/mm3 12/17/18 04:24 Lymphocytes # (Manual) 1.2 K/mm3 (1.2-5.4) 12/17/18 04:24 Abs React Lymphs (Man) 0.0 K/mm3 12/17/18 04:24 Monocytes # (Manual) 0.8 K/mm3 (0.0-0.8) 12/17/18 04:24 Eosinophils # (Manual) 0.0 K/mm3 (0.0-0.4) 12/17/18 04:24 Basophils # (Manual) 0.0 K/mm3 (0.0-0.1) 12/17/18 04:24 Metamyelocytes # 0.0 K/mm3 12/17/18 04:24 Myelocytes # 0.0 K/mm3 12/17/18 04:24 Promyelocytes # 0.0 K/mm3 12/17/18 04:24 Blast Cells # 0.0 K/mm3 12/17/18 04:24 WBC Morphology Not Reportable 12/17/18 04:24 Hypersegmented Neuts Not Reportable 12/17/18 04:24 Hyposegmented Neuts Not Reportable 12/17/18 04:24 Hypogranular Neuts Not Reportable 12/17/18 04:24 Smudge Cells Not Reportable 12/17/18 04:24 Toxic Granulation Not Reportable 12/17/18 04:24 Toxic Vacuolation Not Reportable 12/17/18 04:24 Dohle Bodies Not Reportable 12/17/18 04:24 Pelger-Huet Anomaly Not Reportable 12/17/18 04:24 Mark Rods Not Reportable 12/17/18 04:24 Platelet Estimate Consistent w auto 12/17/18 04:24 Clumped Platelets Not Reportable 12/17/18 04:24 Plt Clumps, EDTA Not Reportable 12/17/18 04:24 Large Platelets Not Reportable 12/17/18 04:24 Giant Platelets Not Reportable 12/17/18 04:24 Platelet Satelliting Not Reportable 12/17/18 04:24 Plt Morphology Comment Not Reportable 12/17/18 04:24 RBC Morphology Not Reportable 12/17/18 04:24 Dimorphic RBCs Not Reportable 12/17/18 04:24 Polychromasia Not Reportable 12/17/18 04:24 Hypochromasia 1+ 12/17/18 04:24 Poikilocytosis Not Reportable 12/17/18 04:24 Anisocytosis 2+ 12/17/18 04:24 Microcytosis Not Reportable 12/17/18 04:24 Macrocytosis 1+ 12/17/18 04:24 Spherocytes Not Reportable 12/17/18 04:24 Pappenheimer Bodies Not Reportable 12/17/18 04:24 Sickle Cells Not Reportable 12/17/18 04:24 Target Cells Not Reportable 12/17/18 04:24 Tear Drop Cells Not Reportable 12/17/18 04:24 Ovalocytes 1+ 12/17/18 04:24 Helmet Cells Not Reportable 12/17/18 04:24 Estrada-Mize Bodies Not Reportable 12/17/18 04:24 [place] Rings Not Reportable 12/17/18 04:24 Aneesh Cells Few 12/17/18 04:24 Bite Cells Not Reportable 12/17/18 04:24 Crenated Cell Not Reportable 12/17/18 04:24 Elliptocytes Few 12/17/18 04:24 Acanthocytes (Spur) Not Reportable 12/17/18 04:24 Rouleaux Not Reportable 12/17/18 04:24 Hemoglobin C Crystals Not Reportable 12/17/18 04:24 Schistocytes Not Reportable 12/17/18 04:24 Malaria parasites Not Reportable 12/17/18 04:24 Stef Bodies Not Reportable 12/17/18 04:24 Hem Pathologist Commnt No 12/17/18 04:24 PT 20.2 Sec. (12.2-14.9) H 12/12/18 08:00 INR 1.61 (0.87-1.13) H 12/12/18 08:00 APTT 30.9 Sec. (24.2-36.6) 12/10/18 10:40 POC ABG pH 7.325 (7.35-7.45) L 12/15/18 03:37 POC ABG pCO2 28.6 (35-45) L 12/15/18 03:37 POC ABG pO2 105 (80-105) 12/15/18 03:37 POC ABG HCO3 14.9 12/15/18 03:37 POC ABG Total CO2 16 12/15/18 03:37 POC ABG O2 Sat 98 12/15/18 03:37 POC ABG Base Excess -11 12/15/18 03:37 FiO2 25 % 12/15/18 03:37 Sodium 138 mmol/L (137-145) 12/19/18 04:22 Potassium 4.6 mmol/L (3.6-5.0) 12/19/18 04:22 Chloride 112.9 mmol/L (98-107) H 12/19/18 04:22 Carbon Dioxide 15 mmol/L (22-30) L 12/19/18 04:22 Anion Gap 15 mmol/L 12/19/18 04:22 BUN 76 mg/dL (7-17) H 12/19/18 04:22 Creatinine 1.8 mg/dL (0.7-1.2) H 12/19/18 04:22 Estimated GFR 32 ml/min 12/19/18 04:22 BUN/Creatinine Ratio 42 % 12/19/18 04:22 Glucose 107 mg/dL (65-100) H 12/19/18 04:22 POC Glucose 184 (70-105) H 12/18/18 23:39 Hemoglobin A1c 4.9 % (4-6) 12/10/18 04:38 Lactic Acid 3.00 mmol/L (0.7-2.0) H* 12/08/18 15:21 Calcium 7.4 mg/dL (8.4-10.2) L 12/19/18 04:22 Phosphorus 5.10 mg/dL (2.5-4.5) H 12/18/18 04:08 Total Bilirubin 1.60 mg/dL (0.1-1.2) H 12/09/18 05:36 AST 44 units/L (5-40) H 12/09/18 05:36 ALT 39 units/L (7-56) 12/09/18 05:36 Alkaline Phosphatase 113 units/L (35-129) 12/09/18 05:36 Total Creatine Kinase 258 units/L (30-135) H 12/08/18 13:40 C-Reactive Protein 19.60 mg/dL (0.00-1.30) H 12/09/18 18:18 Total Protein 5.2 g/dL (6.3-8.2) L 12/09/18 05:36 Albumin 2.4 g/dL (3.9-5) L 12/09/18 05:36 Albumin/Globulin Ratio 0.9 % 12/09/18 05:36 TSH 0.268 mlU/mL (0.270-4.200) L 12/09/18 15:54 Free T4 0.58 ng/dL (0.76-1.46) L 12/09/18 15:54 Urine Color Yolie (Yellow) 12/08/18 13:40 Urine Turbidity Cloudy (Clear) 12/08/18 13:40 Urine pH 7.0 (5.0-7.0) 12/08/18 13:40 Ur Specific [place] 1.015 (1.003-1.030) 12/08/18 13:40 Urine Protein 100 mg/dl mg/dL (Negative) 12/08/18 13:40 Urine Glucose (UA) Neg mg/dL (Negative) 12/08/18 13:40 Urine Ketones Neg mg/dL (Negative) 12/08/18 13:40 Urine Blood Sm (Negative) 12/08/18 13:40 Urine Nitrite Neg (Negative) 12/08/18 13:40 Urine Bilirubin Neg (Negative) 12/08/18 13:40 Urine Urobilinogen 2.0 mg/dL (<2.0) 12/08/18 13:40 Ur Leukocyte Esterase Mod (Negative) 12/08/18 13:40 Urine WBC (Auto) 157.0 /HPF (0.0-6.0) H 12/08/18 13:40 Urine RBC (Auto) 8.0 /HPF (0.0-6.0) 12/08/18 13:40 U Epithel Cells (Auto) 1.0 /HPF (0-13.0) 12/08/18 13:40 Urine Bacteria (Auto) 4+ /HPF (Negative) 12/08/18 13:40 Urine Mucus 2+ /HPF 12/08/18 13:40 Random Vancomycin 15.9 ug/mL (0-40.0) 12/18/18 04:08 JEFFREY Screen Negative (Negative) 12/09/18 15:54 Blood Type B POSITIVE 12/18/18 18:23 Antibody Screen Negative 12/08/18 13:40 Crossmatch See Detail 12/08/18 13:40 Nutrition/Malnutrition Assess - Dietary Evaluation Nutrition/Malnutrition Findings: Nutrition Notes Start: 12/09/18 12:11 Freq: Status: Active Protocol: Document 12/16/18 15:56 KENNY (Rec: 12/16/18 16:00 KENNY [email or web address]) Nutrition Notes Initial or Follow up Reassessment Current Diagnosis Acute Kidney Injury,Sepsis, Respiratory Failure Other Pertinent Diagnosis Acute encephalopathy, Pericardial effusion Current Diet TF - Glucerna 1.2 at 50ml/hr Labs/Tests BUN 81 Cr 1.6 BG 161 Pertinent Medications Reviewed Height 5 ft 1 in Weight 60.3 kg [place] Body Weight (kg) 47.72 BMI 25.1 Weight change and time frame Current wt obtained from bed scale Subjective/Other Information Pt tolerating TF at goal rate, per RN. Pt remains on vent support. Percent of energy/protein needs met: 100% energy and pro Burn Absent Trauma Absent #1 Nutrition Diagnosis Inadequate oral intake Diagnosis Progress(for reassessment Continues documentation) Is patient on ventilator? Yes Is Patient Ambulatory and/or Out of Bed No REE-([facility]-confined to bed) 1183.980 Calculation Used for Recommendations [facility] Additional Notes Pro needs 1.2-2g/k-121g/ day Fluid needs 1ml/kcal Nutrition Intervention Nutrition Support: Glucerna 1.2 at 50ml/hr Flush with 100ml q4h Kcal 1,440 Protein (gm) 72 Fluid (mL) 966 Goal #1 TF tolerance Goal #2 TF to meet at least 80% energy and pro needs Follow-Up By: 12/23/18 Additional Comments F/U: stable TF, vent status, wt
--- NOTE | 2018-12-19 10:51 | Progress Note ---
Assessment and Plan 88 y/o female with acute respiratory failure, altered mental state, presumptive acute renal failure and hypotension with thrombocytopenia and dirty urine analysis. 1. Hold on any further SBT trials until BP issues resolved. Stopped all BP meds scheduled and PRN 2. Continue feeds at low dose, if pressor requirement increases will have to stop feeds. 3. Remains in renal failure with Cr slightly worse today. 4. HgB down to 7. If drops below this would transfuse, especially with hypotension. Will recheck at 1600 5. Need family meeting soon. Hopeful to find someone who can place us in contact with the sons. CCT 31 minutes. Subjective Date of service: 12/19/18 Principal diagnosis: coffee-ground drainage Interval history: Remains intubated, not sedated and unresponsive. No family present. yesterday started dropping pressure and now is requiring vasopressor therapy again. IO placed by ED on yesterday. Objective Vital Signs - 12hr 12/18/18 12/18/18 12/18/18 23:00 23:45 23:53 Temperature 97.9 F Pulse Rate 74 78 83 Pulse Rate [ Anterior Bilateral Throughout] Respiratory 19 17 Rate Respiratory Rate [Anterior Bilateral Throughout] Blood Pressure 122/48 108/40 108/40 O2 Sat by Pulse 99 99 99 Oximetry 12/19/18 12/19/18 12/19/18 00:00 00:43 01:00 Temperature 97.9 F 97.8 F Pulse Rate 78 78 83 Pulse Rate [ Anterior Bilateral Throughout] Respiratory 18 19 15 Rate Respiratory Rate [Anterior Bilateral Throughout] Blood Pressure 120/46 124/49 134/48 O2 Sat by Pulse 99 99 92 Oximetry 12/19/18 12/19/18 12/19/18 01:09 01:15 01:18 Temperature 98.2 F 98.2 F Pulse Rate 84 84 Pulse Rate [ 84 Anterior Bilateral Throughout] Respiratory 18 18 Rate Respiratory 20 Rate [Anterior Bilateral Throughout] Blood Pressure 122/47 122/47 O2 Sat by Pulse 99 99 Oximetry 12/19/18 12/19/18 12/19/18 01:22 01:33 01:45 Temperature 98.0 F 98.8 F Pulse Rate 84 84 Pulse Rate [ 85 Anterior Bilateral Throughout] Respiratory 18 16 Rate Respiratory 20 Rate [Anterior Bilateral Throughout] Blood Pressure 112/34 119/43 O2 Sat by Pulse 99 99 Oximetry 12/19/18 12/19/1812/19/19 02:00 02:05 03:00 Temperature 98.8 F Pulse Rate 87 84 82 Pulse Rate [ Anterior Bilateral Throughout] Respiratory 18 16 17 Rate Respiratory Rate [Anterior Bilateral Throughout] Blood Pressure 119/43 110/39 129/42 O2 Sat by Pulse 99 99 99 Oximetry 12/19/18 12/19/18 12/19/18 03:24 04:00 05:00 Temperature 98.6 F Pulse Rate 79 78 82 Pulse Rate [ Anterior Bilateral Throughout] Respiratory 14 18 Rate Respiratory Rate [Anterior Bilateral Throughout] Blood Pressure 134/46 116/39 116/45 O2 Sat by Pulse 99 99 99 Oximetry 12/19/18 12/19/18 12/19/18 06:01 07:01 08:00 Temperature Pulse Rate 87 80 83 Pulse Rate [ 80 Anterior Bilateral Throughout] Respiratory 17 18 16 Rate Respiratory 18 Rate [Anterior Bilateral Throughout] Blood Pressure 132/49 106/42 150/54 O2 Sat by Pulse 98 99 100 Oximetry 12/19/18 09:00 Temperature Pulse Rate 81 Pulse Rate [ Anterior Bilateral Throughout] Respiratory 19 Rate Respiratory Rate [Anterior Bilateral Throughout] Blood Pressure 119/44 O2 Sat by Pulse 99 Oximetry Constitutional: no acute distress, comatose, other (on vent cmv) Eyes: non-icteric ENT: oropharynx moist, other (ETT in position,large tongue) Neck: supple, no JVD, other (right left IJ lines in place) Ascultation: Bilateral: clear, diminished breath sounds Cardiovascular: regular rate and rhythm, other (pacemaker rhythm) Gastrointestinal: normoactive bowel sounds, non-distended Integumentary: normal Extremities: no cyanosis, no edema, pink and warm Neurologic: pupils equal and round, other (comatose) CBC and BMP: 12/19/18 04:22 12/19/18 04:22 ABG, PT/INR, D-dimer: ABG POC ABG pH 7.325 (7.35-7.45) L 12/15/18 03:37 POC ABG pCO2 28.6 (35-45) L 12/15/18 03:37 POC ABG pO2 105 (80-105) 12/15/18 03:37 POC ABG HCO3 14.9 12/15/18 03:37 POC ABG Total CO2 16 12/15/18 03:37 POC ABG O2 Sat 98 12/15/18 03:37 PT/INR, D-dimer PT 20.2 Sec. (12.2-14.9) H 12/12/18 08:00 INR 1.61 (0.87-1.13) H 12/12/18 08:00 Abnormal lab findings: Abnormal Labs 12/08/18 12/08/18 12/08/18 12:58 13:40 13:40 WBC RBC Hgb Hct MCV MCH RDW Plt Count Lymph % (Auto) Lymph # Seg Neutrophils % Seg Neuts % (Manual) Lymphocytes % (Manual) Monocytes % (Manual) Nucleated RBC % Seg Neutrophils # Seg Neutrophils # Man Lymphocytes # (Manual) Monocytes # (Manual) PT INR POC ABG pH POC ABG pCO2 POC ABG pO2 Sodium Potassium Chloride Carbon Dioxide BUN Creatinine Glucose POC Glucose 143 H Lactic Acid Calcium Phosphorus Total Bilirubin AST Total Creatine Kinase C-Reactive Protein Total Protein Albumin TSH Free T4 Urine WBC (Auto) 157.0 H Crossmatch See Detail 12/08/18 12/08/18 12/08/18 13:40 13:40 13:40 WBC RBC 3.06 L Hgb 6.8 L Hct 21.1 L MCV 69 L MCH 22 L RDW 16.2 H Plt Count 56 L Lymph % (Auto) Lymph # Seg Neutrophils % Seg Neuts % (Manual) Lymphocytes % (Manual) 2.0 L Monocytes % (Manual) Nucleated RBC % Seg Neutrophils # Seg Neutrophils # Man Lymphocytes # (Manual) 0.2 L Monocytes # (Manual) PT INR POC ABG pH POC ABG pCO2 POC ABG pO2 Sodium Potassium 3.2 L Chloride Carbon Dioxide 18 L BUN 64 H Creatinine 1.5 H Glucose 145 H POC Glucose Lactic Acid 4.00 H* Calcium 7.7 L Phosphorus Total Bilirubin AST Total Creatine Kinase 258 H C-Reactive Protein Total Protein 4.6 L Albumin 1.8 L TSH Free T4 Urine WBC (Auto) Crossmatch 12/08/18 12/08/18 12/08/18 14:29 15:21 16:06 WBC RBC Hgb Hct MCV MCH RDW Plt Count Lymph % (Auto) Lymph # Seg Neutrophils % Seg Neuts % (Manual) Lymphocytes % (Manual) Monocytes % (Manual) Nucleated RBC % Seg Neutrophils # Seg Neutrophils # Man Lymphocytes # (Manual) Monocytes # (Manual) PT 20.5 H INR 1.64 H POC ABG pH POC ABG pCO2 34.2 L POC ABG pO2 465 H Sodium Potassium Chloride Carbon Dioxide BUN Creatinine Glucose POC Glucose Lactic Acid 3.00 H* Calcium Phosphorus Total Bilirubin AST Total Creatine Kinase C-Reactive Protein Total Protein Albumin TSH Free T4 Urine WBC (Auto) Crossmatch 12/09/18 12/09/18 12/09/18 02:31 05:36 05:36 WBC 14.5 H RBC Hgb Hct MCV 75 L MCH 25 L RDW 20.4 H Plt Count 68 L Lymph % (Auto) Lymph # Seg Neutrophils % Seg Neuts % (Manual) 81.0 H Lymphocytes % (Manual) 1.0 L Monocytes % (Manual) Nucleated RBC % Seg Neutrophils # Seg Neutrophils # Man 11.7 H Lymphocytes # (Manual) 0.1 L Monocytes # (Manual) PT INR POC ABG pH POC ABG pCO2 POC ABG pO2 Sodium Potassium Chloride 107.6 H Carbon Dioxide 18 L BUN 75 H Creatinine 1.9 H Glucose 136 H POC Glucose 152 H Lactic Acid Calcium 7.9 L Phosphorus Total Bilirubin 1.60 H AST 44 H Total Creatine Kinase C-Reactive Protein Total Protein 5.2 L Albumin 2.4 L TSH Free T4 Urine WBC (Auto) Crossmatch 12/09/18 12/09/18 12/09/18 05:43 10:47 13:46 WBC RBC Hgb Hct MCV MCH RDW Plt Count Lymph % (Auto) Lymph # Seg Neutrophils % Seg Neuts % (Manual) Lymphocytes % (Manual) Monocytes % (Manual) Nucleated RBC % Seg Neutrophils # Seg Neutrophils # Man Lymphocytes # (Manual) Monocytes # (Manual) PT INR POC ABG pH 7.308 L POC ABG pCO2 POC ABG pO2 183 H Sodium Potassium Chloride Carbon Dioxide BUN Creatinine Glucose POC Glucose 150 H 162 H Lactic Acid Calcium Phosphorus Total Bilirubin AST Total Creatine Kinase C-Reactive Protein Total Protein Albumin TSH Free T4 Urine WBC (Auto) Crossmatch 12/09/18 12/09/18 12/09/18 15:54 15:54 16:40 WBC RBC Hgb Hct MCV MCH RDW Plt Count Lymph % (Auto) Lymph # Seg Neutrophils % Seg Neuts % (Manual) Lymphocytes % (Manual) Monocytes % (Manual) Nucleated RBC % Seg Neutrophils # Seg Neutrophils # Man Lymphocytes # (Manual) Monocytes # (Manual) PT INR POC ABG pH POC ABG pCO2 POC ABG pO2 Sodium Potassium Chloride Carbon Dioxide BUN Creatinine Glucose POC Glucose 197 H Lactic Acid Calcium Phosphorus Total Bilirubin AST Total Creatine Kinase C-Reactive Protein Total Protein Albumin TSH 0.268 L Free T4 0.58 L Urine WBC (Auto) Crossmatch 12/09/18 12/09/18 12/09/18 18:18 18:18 21:51 WBC RBC Hgb Hct MCV MCH RDW Plt Count Lymph % (Auto) Lymph # Seg Neutrophils % Seg Neuts % (Manual) Lymphocytes % (Manual) Monocytes % (Manual) Nucleated RBC % Seg Neutrophils # Seg Neutrophils # Man Lymphocytes # (Manual) Monocytes # (Manual) PT INR POC ABG pH POC ABG pCO2 POC ABG pO2 Sodium Potassium Chloride 108.2 H Carbon Dioxide 16 L BUN 89 H Creatinine 2.3 H Glucose 180 H POC Glucose 198 H Lactic Acid Calcium 7.9 L Phosphorus Total Bilirubin AST Total Creatine Kinase C-Reactive Protein 19.60 H Total Protein Albumin TSH Free T4 Urine WBC (Auto) Crossmatch 12/10/18 12/10/18 12/10/18 01:59 04:14 04:38 WBC 11.5 H RBC Hgb Hct MCV 75 L MCH 25 L RDW 21.1 H Plt Count 81 L Lymph % (Auto) 5.6 L Lymph # 0.6 L Seg Neutrophils % 89.8 H Seg Neuts % (Manual) Lymphocytes % (Manual) Monocytes % (Manual) Nucleated RBC % Seg Neutrophils # 10.3 H Seg Neutrophils # Man Lymphocytes # (Manual) Monocytes # (Manual) PT INR POC ABG pH 7.273 L POC ABG pCO2 32.1 L POC ABG pO2 161 H Sodium Potassium Chloride Carbon Dioxide BUN Creatinine Glucose POC Glucose 219 H Lactic Acid Calcium Phosphorus Total Bilirubin AST Total Creatine Kinase C-Reactive Protein Total Protein Albumin TSH Free T4 Urine WBC (Auto) Crossmatch 12/10/18 12/10/18 12/10/18 04:38 05:07 07:26 WBC RBC Hgb Hct MCV MCH RDW Plt Count Lymph % (Auto) Lymph # Seg Neutrophils % Seg Neuts % (Manual) Lymphocytes % (Manual) Monocytes % (Manual) Nucleated RBC % Seg Neutrophils # Seg Neutrophils # Man Lymphocytes # (Manual) Monocytes # (Manual) PT INR POC ABG pH POC ABG pCO2 POC ABG pO2 Sodium Potassium Chloride 112.5 H Carbon Dioxide 14 L BUN 94 H Creatinine 2.4 H Glucose 207 H POC Glucose 221 H 212 H Lactic Acid Calcium 7.7 L Phosphorus Total Bilirubin AST Total Creatine Kinase C-Reactive Protein Total Protein Albumin TSH Free T4 Urine WBC (Auto) Crossmatch 12/10/18 12/10/18 12/10/18 10:40 11:15 14:21 WBC RBC Hgb Hct MCV MCH RDW Plt Count Lymph % (Auto) Lymph # Seg Neutrophils % Seg Neuts % (Manual) Lymphocytes % (Manual) Monocytes % (Manual) Nucleated RBC % Seg Neutrophils # Seg Neutrophils # Man Lymphocytes # (Manual) Monocytes # (Manual) PT 21.4 H INR 1.73 H POC ABG pH 7.214 L POC ABG pCO2 32.8 L POC ABG pO2 Sodium Potassium Chloride Carbon Dioxide BUN Creatinine Glucose POC Glucose 227 H Lactic Acid Calcium Phosphorus Total Bilirubin AST Total Creatine Kinase C-Reactive Protein Total Protein Albumin TSH Free T4 Urine WBC (Auto) Crossmatch 12/10/18 12/10/18 12/11/18 15:47 22:38 03:36 WBC RBC Hgb Hct MCV MCH RDW Plt Count Lymph % (Auto) Lymph # Seg Neutrophils % Seg Neuts % (Manual) Lymphocytes % (Manual) Monocytes % (Manual) Nucleated RBC % Seg Neutrophils # Seg Neutrophils # Man Lymphocytes # (Manual) Monocytes # (Manual) PT INR POC ABG pH POC ABG pCO2 26.2 L POC ABG pO2 138 H Sodium Potassium Chloride Carbon Dioxide BUN Creatinine Glucose POC Glucose 202 H 259 H Lactic Acid Calcium Phosphorus Total Bilirubin AST Total Creatine Kinase C-Reactive Protein Total Protein Albumin TSH Free T4 Urine WBC (Auto) Crossmatch 12/11/18 12/11/18 12/11/18 04:12 05:00 06:19 WBC RBC Hgb Hct MCV MCH RDW Plt Count Lymph % (Auto) Lymph # Seg Neutrophils % Seg Neuts % (Manual) Lymphocytes % (Manual) Monocytes % (Manual) Nucleated RBC % Seg Neutrophils # Seg Neutrophils # Man Lymphocytes # (Manual) Monocytes # (Manual) PT 19.5 H INR 1.54 H POC ABG pH POC ABG pCO2 24.6 L POC ABG pO2 119 H Sodium Potassium Chloride Carbon Dioxide BUN Creatinine Glucose POC Glucose 174 H Lactic Acid Calcium Phosphorus Total Bilirubin AST Total Creatine Kinase C-Reactive Protein Total Protein Albumin TSH Free T4 Urine WBC (Auto) Crossmatch 12/11/18 12/11/18 12/11/18 11:10 11:10 18:10 WBC 14.3 H RBC Hgb Hct MCV 73 L MCH 24 L RDW 21.5 H Plt Count Lymph % (Auto) Lymph # Seg Neutrophils % Seg Neuts % (Manual) Lymphocytes % (Manual) Monocytes % (Manual) Nucleated RBC % Seg Neutrophils # Seg Neutrophils # Man Lymphocytes # (Manual) Monocytes # (Manual) PT INR POC ABG pH POC ABG pCO2 POC ABG pO2 Sodium Potassium Chloride 110.5 H Carbon Dioxide 15 L BUN 101 H Creatinine 2.4 H Glucose 119 H POC Glucose 147 H Lactic Acid Calcium 7.7 L Phosphorus Total Bilirubin AST Total Creatine Kinase C-Reactive Protein Total Protein Albumin TSH Free T4 Urine WBC (Auto) Crossmatch 12/11/18 12/12/18 12/12/18 23:25 05:37 06:03 WBC RBC Hgb Hct MCV MCH RDW Plt Count Lymph % (Auto) Lymph # Seg Neutrophils % Seg Neuts % (Manual) Lymphocytes % (Manual) Monocytes % (Manual) Nucleated RBC % Seg Neutrophils # Seg Neutrophils # Man Lymphocytes # (Manual) Monocytes # (Manual) PT INR POC ABG pH 7.346 L POC ABG pCO2 28.3 L POC ABG pO2 120 H Sodium Potassium Chloride Carbon Dioxide BUN Creatinine Glucose POC Glucose 143 H 154 H Lactic Acid Calcium Phosphorus Total Bilirubin AST Total Creatine Kinase C-Reactive Protein Total Protein Albumin TSH Free T4 Urine WBC (Auto) Crossmatch 12/12/18 12/12/18 12/12/18 08:00 08:00 08:00 WBC 16.2 H RBC Hgb Hct MCV 74 L MCH 25 L RDW 21.9 H Plt Count 21 L Lymph % (Auto) Lymph # Seg Neutrophils % Seg Neuts % (Manual) Lymphocytes % (Manual) Monocytes % (Manual) Nucleated RBC % Seg Neutrophils # Seg Neutrophils # Man Lymphocytes # (Manual) Monocytes # (Manual) PT 20.2 H INR 1.61 H POC ABG pH POC ABG pCO2 POC ABG pO2 Sodium Potassium Chloride 107.4 H Carbon Dioxide 16 L BUN 101 H Creatinine 2.3 H Glucose 169 H POC Glucose Lactic Acid Calcium 8.2 L Phosphorus Total Bilirubin AST Total Creatine Kinase C-Reactive Protein Total Protein Albumin TSH Free T4 Urine WBC (Auto) Crossmatch 12/12/18 12/12/18 12/13/18 12:59 18:01 04:28 WBC 18.6 H RBC Hgb Hct MCV 74 L MCH 24 L RDW 21.8 H Plt Count 34 L Lymph % (Auto) Lymph # Seg Neutrophils % Seg Neuts % (Manual) 97.0 H Lymphocytes % (Manual) 2.0 L Monocytes % (Manual) Nucleated RBC % 1.0 H Seg Neutrophils # Seg Neutrophils # Man 18.0 H Lymphocytes # (Manual) 0.4 L Monocytes # (Manual) PT INR POC ABG pH POC ABG pCO2 POC ABG pO2 Sodium Potassium Chloride Carbon Dioxide BUN Creatinine Glucose POC Glucose 158 H 123 H Lactic Acid Calcium Phosphorus Total Bilirubin AST Total Creatine Kinase C-Reactive Protein Total Protein Albumin TSH Free T4 Urine WBC (Auto) Crossmatch 12/13/18 12/13/18 12/13/18 04:28 04:45 19:17 WBC RBC Hgb Hct MCV MCH RDW Plt Count Lymph % (Auto) Lymph # Seg Neutrophils % Seg Neuts % (Manual) Lymphocytes % (Manual) Monocytes % (Manual) Nucleated RBC % Seg Neutrophils # Seg Neutrophils # Man Lymphocytes # (Manual) Monocytes # (Manual) PT INR POC ABG pH 7.327 L POC ABG pCO2 31.1 L POC ABG pO2 136 H Sodium Potassium Chloride 112.0 H Carbon Dioxide 17 L BUN 97 H Creatinine 2.2 H Glucose POC Glucose 106 H Lactic Acid Calcium 8.1 L Phosphorus Total Bilirubin AST Total Creatine Kinase C-Reactive Protein Total Protein Albumin TSH Free T4 Urine WBC (Auto) Crossmatch 12/13/18 12/14/18 12/14/18 23:24 03:35 03:35 WBC 22.0 H RBC Hgb Hct MCV 75 L MCH 24 L RDW 22.2 H Plt Count 44 L Lymph % (Auto) Lymph # Seg Neutrophils % Seg Neuts % (Manual) 96.0 H Lymphocytes % (Manual) 3.0 L Monocytes % (Manual) Nucleated RBC % Seg Neutrophils # Seg Neutrophils # Man 21.1 H Lymphocytes # (Manual) 0.7 L Monocytes # (Manual) PT INR POC ABG pH POC ABG pCO2 POC ABG pO2 Sodium 136 L Potassium Chloride 107.2 H Carbon Dioxide 15 L BUN 87 H Creatinine 1.7 H Glucose 156 H POC Glucose 108 H Lactic Acid Calcium 7.7 L Phosphorus Total Bilirubin AST Total Creatine Kinase C-Reactive Protein Total Protein Albumin TSH Free T4 Urine WBC (Auto) Crossmatch 12/14/18 12/14/1812/14/19 04:58 05:37 12:10 WBC RBC Hgb Hct MCV MCH RDW Plt Count Lymph % (Auto) Lymph # Seg Neutrophils % Seg Neuts % (Manual) Lymphocytes % (Manual) Monocytes % (Manual) Nucleated RBC % Seg Neutrophils # Seg Neutrophils # Man Lymphocytes # (Manual) Monocytes # (Manual) PT INR POC ABG pH 7.301 L POC ABG pCO2 32.6 L POC ABG pO2 138 H Sodium Potassium Chloride Carbon Dioxide BUN Creatinine Glucose POC Glucose 178 H 208 H Lactic Acid Calcium Phosphorus Total Bilirubin AST Total Creatine Kinase C-Reactive Protein Total Protein Albumin TSH Free T4 Urine WBC (Auto) Crossmatch 12/14/18 12/14/18 12/15/18 17:44 23:16 03:37 WBC RBC Hgb Hct MCV MCH RDW Plt Count Lymph % (Auto) Lymph # Seg Neutrophils % Seg Neuts % (Manual) Lymphocytes % (Manual) Monocytes % (Manual) Nucleated RBC % Seg Neutrophils # Seg Neutrophils # Man Lymphocytes # (Manual) Monocytes # (Manual) PT INR POC ABG pH 7.325 L POC ABG pCO2 28.6 L POC ABG pO2 Sodium Potassium Chloride Carbon Dioxide BUN Creatinine Glucose POC Glucose 172 H 123 H Lactic Acid Calcium Phosphorus Total Bilirubin AST Total Creatine Kinase C-Reactive Protein Total Protein Albumin TSH Free T4 Urine WBC (Auto) Crossmatch 12/15/18 12/15/18 12/15/18 05:30 05:30 05:43 WBC 20.1 H RBC Hgb 9.5 L Hct 29.2 L MCV 74 L MCH 24 L RDW 22.7 H Plt Count 48 L Lymph % (Auto) Lymph # Seg Neutrophils % Seg Neuts % (Manual) 96.0 H Lymphocytes % (Manual) 1.0 L Monocytes % (Manual) Nucleated RBC % Seg Neutrophils # Seg Neutrophils # Man 19.3 H Lymphocytes # (Manual) 0.2 L Monocytes # (Manual) PT INR POC ABG pH POC ABG pCO2 POC ABG pO2 Sodium Potassium Chloride 110.8 H Carbon Dioxide 17 L BUN 83 H Creatinine 1.6 H Glucose 150 H POC Glucose 151 H Lactic Acid Calcium 7.7 L Phosphorus Total Bilirubin AST Total Creatine Kinase C-Reactive Protein Total Protein Albumin TSH Free T4 Urine WBC (Auto) Crossmatch 12/15/18 12/15/18 12/16/18 12:56 18:21 00:10 WBC RBC Hgb Hct MCV MCH RDW Plt Count Lymph % (Auto) Lymph # Seg Neutrophils % Seg Neuts % (Manual) Lymphocytes % (Manual) Monocytes % (Manual) Nucleated RBC % Seg Neutrophils # Seg Neutrophils # Man Lymphocytes # (Manual) Monocytes # (Manual) PT INR POC ABG pH POC ABG pCO2 POC ABG pO2 Sodium Potassium Chloride Carbon Dioxide BUN Creatinine Glucose POC Glucose 190 H 143 H 174 H Lactic Acid Calcium Phosphorus Total Bilirubin AST Total Creatine Kinase C-Reactive Protein Total Protein Albumin TSH Free T4 Urine WBC (Auto) Crossmatch 12/16/18 12/16/18 12/16/18 05:24 05:30 05:30 WBC 17.1 H RBC Hgb 9.1 L Hct 28.8 L MCV 76 L MCH 24 L RDW 23.5 H Plt Count 37 L Lymph % (Auto) Lymph # Seg Neutrophils % Seg Neuts % (Manual) Lymphocytes % (Manual) 9.0 L Monocytes % (Manual) 9.0 H Nucleated RBC % Seg Neutrophils # Seg Neutrophils # Man 9.6 H Lymphocytes # (Manual) Monocytes # (Manual) 1.5 H PT INR POC ABG pH POC ABG pCO2 POC ABG pO2 Sodium Potassium Chloride 110.8 H Carbon Dioxide 15 L BUN 81 H Creatinine 1.6 H Glucose 161 H POC Glucose 154 H Lactic Acid Calcium 7.6 L Phosphorus Total Bilirubin AST Total Creatine Kinase C-Reactive Protein Total Protein Albumin TSH Free T4 Urine WBC (Auto) Crossmatch 12/16/18 12/16/18 12/16/18 12:31 17:42 21:56 WBC RBC Hgb Hct MCV MCH RDW Plt Count Lymph % (Auto) Lymph # Seg Neutrophils % Seg Neuts % (Manual) Lymphocytes % (Manual) Monocytes % (Manual) Nucleated RBC % Seg Neutrophils # Seg Neutrophils # Man Lymphocytes # (Manual) Monocytes # (Manual) PT INR POC ABG pH POC ABG pCO2 POC ABG pO2 Sodium Potassium Chloride Carbon Dioxide BUN Creatinine Glucose POC Glucose 172 H 173 H 118 H Lactic Acid Calcium Phosphorus Total Bilirubin AST Total Creatine Kinase C-Reactive Protein Total Protein Albumin TSH Free T4 Urine WBC (Auto) Crossmatch 12/16/18 12/17/18 12/17/18 23:38 04:24 04:24 WBC 19.2 H RBC Hgb 9.5 L Hct 29.7 L MCV 76 L MCH 24 L RDW 24.4 H Plt Count 26 L Lymph % (Auto) Lymph # Seg Neutrophils % Seg Neuts % (Manual) Lymphocytes % (Manual) 6.0 L Monocytes % (Manual) Nucleated RBC % Seg Neutrophils # Seg Neutrophils # Man 13.1 H Lymphocytes # (Manual) Monocytes # (Manual) PT INR POC ABG pH POC ABG pCO2 POC ABG pO2 Sodium 134 L Potassium Chloride 110.0 H Carbon Dioxide 14 L BUN 83 H Creatinine 1.6 H Glucose POC Glucose 109 H Lactic Acid Calcium 7.8 L Phosphorus Total Bilirubin AST Total Creatine Kinase C-Reactive Protein Total Protein Albumin TSH Free T4 Urine WBC (Auto) Crossmatch 12/17/18 12/17/18 12/18/18 06:42 17:49 00:40 WBC RBC Hgb Hct MCV MCH RDW Plt Count Lymph % (Auto) Lymph # Seg Neutrophils % Seg Neuts % (Manual) Lymphocytes % (Manual) Monocytes % (Manual) Nucleated RBC % Seg Neutrophils # Seg Neutrophils # Man Lymphocytes # (Manual) Monocytes # (Manual) PT INR POC ABG pH POC ABG pCO2 POC ABG pO2 Sodium Potassium Chloride 113.1 H Carbon Dioxide 13 L BUN 82 H Creatinine 1.6 H Glucose POC Glucose 66 L 109 H Lactic Acid Calcium 8.0 L Phosphorus Total Bilirubin AST Total Creatine Kinase C-Reactive Protein Total Protein Albumin TSH Free T4 Urine WBC (Auto) Crossmatch 12/18/18 12/18/18 12/18/18 04:08 04:08 12:45 WBC 26.5 H RBC 3.63 L Hgb 8.7 L Hct 26.8 L MCV 74 L MCH 24 L RDW 23.3 H Plt Count 24 L Lymph % (Auto) Lymph # Seg Neutrophils % Seg Neuts % (Manual) Lymphocytes % (Manual) Monocytes % (Manual) Nucleated RBC % Seg Neutrophils # Seg Neutrophils # Man Lymphocytes # (Manual) Monocytes # (Manual) PT INR POC ABG pH POC ABG pCO2 POC ABG pO2 Sodium Potassium Chloride 114.3 H Carbon Dioxide 16 L BUN 82 H Creatinine 1.7 H Glucose POC Glucose 117 H Lactic Acid Calcium 7.8 L Phosphorus 5.10 H Total Bilirubin AST Total Creatine Kinase C-Reactive Protein Total Protein Albumin TSH Free T4 Urine WBC (Auto) Crossmatch 12/18/18 12/18/18 12/19/18 17:42 23:39 04:22 WBC 20.4 H RBC 3.01 L Hgb 7.2 L Hct 22.6 L MCV 75 L MCH 24 L RDW 24.5 H Plt Count 52 L D Lymph % (Auto) Lymph # Seg Neutrophils % Seg Neuts % (Manual) Lymphocytes % (Manual) Monocytes % (Manual) Nucleated RBC % Seg Neutrophils # Seg Neutrophils # Man Lymphocytes # (Manual) Monocytes # (Manual) PT INR POC ABG pH POC ABG pCO2 POC ABG pO2 Sodium Potassium Chloride Carbon Dioxide BUN Creatinine Glucose POC Glucose 121 H 184 H Lactic Acid Calcium Phosphorus Total Bilirubin AST Total Creatine Kinase C-Reactive Protein Total Protein Albumin TSH Free T4 Urine WBC (Auto) Crossmatch 12/19/18 04:22 WBC RBC Hgb Hct MCV MCH RDW Plt Count Lymph % (Auto) Lymph # Seg Neutrophils % Seg Neuts % (Manual) Lymphocytes % (Manual) Monocytes % (Manual) Nucleated RBC % Seg Neutrophils # Seg Neutrophils # Man Lymphocytes # (Manual) Monocytes # (Manual) PT INR POC ABG pH POC ABG pCO2 POC ABG pO2 Sodium Potassium Chloride 112.9 H Carbon Dioxide 15 L BUN 76 H Creatinine 1.8 H Glucose 107 H POC Glucose Lactic Acid Calcium 7.4 L Phosphorus Total Bilirubin AST Total Creatine Kinase C-Reactive Protein Total Protein Albumin TSH Free T4 Urine WBC (Auto) Crossmatch Allied health notes reviewed: nursing
--- NOTE | 2018-12-19 11:04 | Progress Note ---
Assessment and Plan - Patient Problems (1) Acute kidney failure with tubular necrosis Current Visit: Yes Status: Acute Plan to address problem: Kidney function is marginally worse. Patient has peripheral edema. Positive fluid balance but incomplete collection of urine output. Follow-up electrolytes and renal function (2) Acidosis Current Visit: Yes Status: Acute Plan to address problem: Bicarbonate is improving. Continue supplements. (3) Sepsis Current Visit: Yes Status: Acute Qualifiers: Sepsis type: sepsis due to unspecified organism Qualified Code(s): A41.9 - Sepsis, unspecified organism Plan to address problem: Sepsis secondary to urinary tract infections versus right otitis media/ma stoiditis versus meningitis/encephalitis. Unable to get an LP due to the thrombocytopenia. Leukocytosis is worsening and is concerning. Continue antibiotics per infectious disease. Poor prognosis (4) Acute encephalopathy Current Visit: Yes Status: Acute Plan to address problem: Toxic/metabolic encephalopathy. Monitor mental status. (5) Acute post-hemorrhagic anemia Current Visit: Yes Status: Acute Plan to address problem: Follow-up hemoglobin (6) Acute respiratory failure with hypoxia Current Visit: Yes Status: Acute Plan to address problem: Continue ventilator management by pulmonary (7) Pericardial effusion without cardiac tamponade Current Visit: Yes Status: Acute Plan to address problem: Follow-up by boat puller Subjective Date of service: 12/19/18 Principal diagnosis: coffee-ground drainage Interval history: Patient seen lying in bed. No family at the bedside. Patient is still unresponsive. On Levophed 6 mcg/kg/m Objective - Exam Narrative Exam: Elderly -[place] female lying in bed intubated on the ventilator HEENT: NCAT, endotracheal tube intact, tongue protruding Neck: Supple, no venous distention CVS: S1S2 RRR with no murmur, rub or gallop Chest: Clear to auscultation Abdomen: Protuberant, soft, nontender, no organomegaly, bowel sounds are present Extremities: 2+ edema Skin is warm and dry Genitourinary deferred Neuro: Does not open eyes, not following commands - Vital Signs Vital signs: Vital Signs - 12hr 12/18/18 12/18/18 12/19/18 23:45 23:53 00:00 Temperature 97.9 F Pulse Rate 78 83 78 Pulse Rate [ Anterior Bilateral Throughout] Respiratory 17 18 Rate Respiratory Rate [Anterior Bilateral Throughout] Blood Pressure 108/40 108/40 120/46 O2 Sat by Pulse 99 99 99 Oximetry 12/19/18 12/19/18 12/19/18 00:43 01:00 01:09 Temperature 97.9 F 97.8 F Pulse Rate 78 83 Pulse Rate [ 84 Anterior Bilateral Throughout] Respiratory 19 15 Rate Respiratory 20 Rate [Anterior Bilateral Throughout] Blood Pressure 124/49 134/48 O2 Sat by Pulse 99 92 Oximetry 12/19/18 12/19/18 12/19/18 01:15 01:18 01:22 Temperature 98.2 F 98.2 F Pulse Rate 84 84 Pulse Rate [ 85 Anterior Bilateral Throughout] Respiratory 18 18 Rate Respiratory 20 Rate [Anterior Bilateral Throughout] Blood Pressure 122/47 122/47 O2 Sat by Pulse 99 99 Oximetry 12/19/18 12/19/18 12/19/18 01:33 01:45 02:00 Temperature 98.0 F 98.8 F Pulse Rate 84 84 87 Pulse Rate [ Anterior Bilateral Throughout] Respiratory 18 16 18 Rate Respiratory Rate [Anterior Bilateral Throughout] Blood Pressure 112/34 119/43 119/43 O2 Sat by Pulse 99 99 99 Oximetry 12/19/18 12/19/18 12/19/18 02:05 03:00 03:24 Temperature 98.8 F Pulse Rate 84 82 79 Pulse Rate [ Anterior Bilateral Throughout] Respiratory 16 17 Rate Respiratory Rate [Anterior Bilateral Throughout] Blood Pressure 110/39 129/42 134/46 O2 Sat by Pulse 99 99 99 Oximetry 12/19/18 12/19/18 12/19/18 04:00 05:00 06:01 Temperature 98.6 F Pulse Rate 78 82 87 Pulse Rate [ Anterior Bilateral Throughout] Respiratory 14 18 17 Rate Respiratory Rate [Anterior Bilateral Throughout] Blood Pressure 116/39 116/45 132/49 O2 Sat by Pulse 99 99 98 Oximetry 12/19/18 12/19/18 12/19/18 07:01 08:00 09:00 Temperature 98.7 F Pulse Rate 80 83 81 Pulse Rate [ 80 Anterior Bilateral Throughout] Respiratory 18 16 19 Rate Respiratory 18 Rate [Anterior Bilateral Throughout] Blood Pressure 106/42 150/54 119/44 O2 Sat by Pulse 99 100 99 Oximetry 12/19/18 12/19/18 12/19/18 10:00 10:15 10:30 Temperature Pulse Rate 75 75 76 Pulse Rate [ Anterior Bilateral Throughout] Respiratory 17 17 12 Rate Respiratory Rate [Anterior Bilateral Throughout] Blood Pressure 129/47 125/47 127/47 O2 Sat by Pulse 99 99 99 Oximetry 12/19/18 10:45 Temperature Pulse Rate 71 Pulse Rate [ Anterior Bilateral Throughout] Respiratory 18 Rate Respiratory Rate [Anterior Bilateral Throughout] Blood Pressure 122/45 O2 Sat by Pulse 99 Oximetry - Lab 12/19/18 04:22 12/19/18 04:22 Most recent lab results Calcium 7.4 mg/dL (8.4-10.2) L 12/19/18 04:22 Phosphorus 5.10 mg/dL (2.5-4.5) H 12/18/18 04:08 Medications & Allergies - Medications Allergies/Adverse Reactions: Allergies Penicillins Allergy (Verified 12/08/18 13:13) Hives Home Medications: Home Medications Medication Instructions Recorded Confirmed Last Taken Type ALBUTEROL Inhaler (OR & NICU) 2 puff IH QID PRN #1 inhalation 12/21/16 12/08/18 Unknown Rx [Proair] Albuterol Sulfate [Albuterol 0.63% 0.63 mg IH TID PRN #90 ml 12/21/16 12/08/18 Unknown Rx NEBS] Amlodipine Besylate [Norvasc] 10 mg PO DAILY #90 tablet 12/21/16 12/08/18 Unknown Rx AtorvaSTATin [Lipitor] 20 mg PO QHS #90 tablet 12/21/16 12/08/18 Unknown Rx Hydralazine HCl [Apresoline TAB] 50 mg PO TID #90 tablet 12/21/16 12/08/18 Unknown Rx Metoprolol [Lopressor TAB] 25 mg PO BID #90 tablet 12/21/16 12/08/18 Unknown Rx Promethazine /Codeine 5 ml PO Q6H PRN #100 ml 12/21/16 12/08/18 Unknown Rx [Phenergan/Codeine 6.25-10 mg/5 ml] Active Medications: Generic Name Dose Route Start Last Admin Trade Name Freq PRN Reason Stop Dose Admin Acetaminophen 650 mg 12/09/18 01:00 12/09/18 10:00 Tylenol [place] 650 mg Q4H PRN Administration Pain MILD(1-3)/Fever >100.5/TURNER Albuterol 2.5 mg 12/09/18 00:31 Proventil IH Q4HRT PRN Shortness Of Breath Albuterol/Ipratropium 1 ampul 12/09/18 02:00 12/19/18 07:54 Duoneb *Not For Prn Use* IH 1 ampul Q6HRT KOLE Administration Lipase/Protease/Amylase 1 each 12/09/18 04:[address] 10,500 Unit FEEDTUBE PRN PRN For Clogged Feeding Tube Hydrophilic Ointment 1 applic 12/14/18 13:00 Vaseline Lip Therapy TP DIRECT PRN Dry tongue Meropenem 1,000 mg/ Sodium 100 mls @ 100 mls/hr 12/17/18 15:30 12/19/18 09:43 Chloride IV 100 mls/hr Q12HR KOLE Administration Protocol Sodium Bicarbonate 75 meq/ 1,075 mls @ 75 mls/hr 12/17/18 18:00 12/18/18 21:26 Dextrose IV 75 mls/hr DIRECT KOLE Administration Norepinephrine 4 mg in 250 mls @ 7.5 mls/hr 12/18/18 18:00 12/19/18 07:00 Levophed Drip 4 Mg/Ns 250 Ml IV 8 mcg/min TITR KOLE 30 mls/hr Titration Protocol 2 MCG/MIN Insulin Human Lispro 0 unit 12/11/18 12:00 12/19/18 05:39 Humalog SUB-Q Not Given Q6HR [facility] Protocol Lansoprazole 30 mg 12/12/18 10:00 12/19/18 09:44 Prevacid Solutab FEEDTUBE 30 mg BID KOLE Administration Midodrine 10 mg 12/18/18 19:01 12/19/18 09:44 Proamatine PO 10 mg TID@0800,1200,1600 KOLE Administration Multi-Ingred Cream/Lotion/Oil/Oint 1 applic 12/08/18 13:31 Artificial Tears Ophth Oint OU Q4HR PRN Dry Eye(s) Ondansetron HCl 4 mg 12/09/18 00:31 Zofran IV Q8H PRN Nausea And Vomiting Simple Syrup 15 ml 12/09/18 04:05 Simple Syrup FEEDTUBE PRN PRN Hypoglycemia Simple Syrup 30 ml 12/09/18 04:05 Simple Syrup FEEDTUBE PRN PRN Hypoglycemia Sodium Bicarbonate 325 mg 12/09/18 04:05 Sodium Bicarbonate FEEDTUBE PRN PRN For Clogged Feeding Tube Sodium Chloride 10 ml 12/09/18 10:00 12/18/18 21:26 Sodium Chloride Flush Syringe 10 Ml IV 10 ml BID KOLE Administration Sodium Chloride 10 ml 12/09/18 00:31 12/17/18 10:47 Sodium Chloride Flush Syringe 10 Ml IV 10 ml PRN PRN Administration LINE FLUSH
--- NOTE | 2018-12-19 11:17 | Progress Note ---
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 - Blood culture 12/08/2018 no growth so far. - Lactate 4 on admission. - unable to do LP due to thrombocytopenia 2) UTI: UA wbc 157, LE mod, on cefepime. Urine culture was not sent. 3) Right otitis media / mastoiditis: Per grand-daughter, she had been c/o right ear pain and drainage week prior to admission. Patient was putting Neosporin and perhaps ear stephanie in the patient's ear. On physical exam, patient found to have purulent discharge from the right ear, and stephanie were removed by ED physician. There was probable perforation of the right sided tympanic membrane per ED physician. Got dexamethasone. 4) Acute encephalopathy: not better, from sepsis versus meningitis versus CVA. CT head extensive right MCA encephalomalcia, right mastoid opacities. 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 5) Acute respiratory failure: CXR showed small left pleural effusion. CT chest showed large pericardial effusion, LLL atelectasis v/s infiltrate and left pleural effusion. 6) ?GI bleed 7) Severe thrombocytopenia: ?from sepsis. 8) Large pericardial effusion: TTE EF>50, no echo evidence of tamponade 9) Penicillin allergy: tolerating cefepime 10) CKD: renally adjusted antibiotics Recommendations: - worsening sepsis, will continue IV Meropenem - continue IV vancomycin, renally adjusted for now - overall extremely poor prognosis MD [facility] C: [phone] O: [phone] F: [phone] Subjective Date of service: 12/19/18 Principal diagnosis: coffee-ground drainage Interval history: Remains intubated. Got hypotensive yesterday and started on pressors. Unresponsi ve. Objective - Exam Narrative Exam: Physical Exam: Constitutional: unresponsive, intubated Head, Ears, Nose: Normocephalic, atraumatic. nose normal. Right ear with packing Eyes: Conjunctivae/corneas clear. No icterus. No ptosis. Neck: Supple, no meningeal signs Oral: intubated, tongue protruding Cardiovascular: S1, S2 normal. Respiratory: Good air entry, clear to auscultation bilaterally GI: Soft, non-tender; bowel sounds hypoactive. No peritoneal signs Musculoskeletal: No pedal edema, no cyanosis. Skin: No rash or abscess Hem/Lymphatic: No palpable cervical or supraclavicular nodes. No lymphangitis Psych: no agitation Neurological: unresponsive, intubated, on vent - Constitutional Vitals: Vital Signs Temp Pulse Resp BP Pulse Ox 98.7 F 71 18 122/45 99 12/19/18 08:00 12/19/18 10:45 12/19/18 10:45 12/19/18 10:45 12/19/18 10:45 Temperature -Last 24 Hours Temperature 98.7 F Temperature 98.6 F Temperature 98.8 F Temperature 98.8 F Temperature 98.0 F Temperature 98.2 F Temperature 98.2 F Temperature 97.8 F Temperature 97.9 F Temperature 97.9 F Temperature 97.0 F Temperature 97.6 F Temperature 98.8 F - Labs CBC & Chem 7: 12/19/18 04:22 12/19/18 04:22 Labs: Abnormal lab results 12/08/18 12/16/18 12/16/18 Range/Units 13:40 05:24 12:31 WBC (4.5-11.0) K/mm3 RBC (3.65-5.03) M/mm3 Hgb (10.1-14.3) gm/dl Hct (30.3-42.9) % MCV (79-97) fl MCH (28-32) pg RDW (13.2-15.2) % Plt Count (140-440) K/mm3 Chloride (98-107) mmol/L Carbon Dioxide (22-30) mmol/L BUN (7-17) mg/dL Creatinine (0.7-1.2) mg/dL Glucose (65-100) mg/dL POC Glucose 154 H 172 H (70-105) Calcium (8.4-10.2) mg/dL Crossmatch See Detail 12/16/18 12/16/18 12/16/18 Range/Units 17:42 21:56 23:38 WBC (4.5-11.0) K/mm3 RBC (3.65-5.03) M/mm3 Hgb (10.1-14.3) gm/dl Hct (30.3-42.9) % MCV (79-97) fl MCH (28-32) pg RDW (13.2-15.2) % Plt Count (140-440) K/mm3 Chloride (98-107) mmol/L Carbon Dioxide (22-30) mmol/L BUN (7-17) mg/dL Creatinine (0.7-1.2) mg/dL Glucose (65-100) mg/dL POC Glucose 173 H 118 H 109 H (70-105) Calcium (8.4-10.2) mg/dL Crossmatch 12/17/18 12/18/18 12/18/18 Range/Units 17:49 00:40 12:45 WBC (4.5-11.0) K/mm3 RBC (3.65-5.03) M/mm3 Hgb (10.1-14.3) gm/dl Hct (30.3-42.9) % MCV (79-97) fl MCH (28-32) pg RDW (13.2-15.2) % Plt Count (140-440) K/mm3 Chloride (98-107) mmol/L Carbon Dioxide (22-30) mmol/L BUN (7-17) mg/dL Creatinine (0.7-1.2) mg/dL Glucose (65-100) mg/dL POC Glucose 66 L 109 H 117 H (70-105) Calcium (8.4-10.2) mg/dL Crossmatch 12/18/18 12/18/18 12/19/18 Range/Units 17:42 23:39 04:22 WBC 20.4 H (4.5-11.0) K/mm3 RBC 3.01 L (3.65-5.03) M/mm3 Hgb 7.2 L (10.1-14.3) gm/dl Hct 22.6 L (30.3-42.9) % MCV 75 L (79-97) fl MCH 24 L (28-32) pg RDW 24.5 H (13.2-15.2) % Plt Count 52 L D (140-440) K/mm3 Chloride (98-107) mmol/L Carbon Dioxide (22-30) mmol/L BUN (7-17) mg/dL Creatinine (0.7-1.2) mg/dL Glucose (65-100) mg/dL POC Glucose 121 H 184 H (70-105) Calcium (8.4-10.2) mg/dL Crossmatch 12/19/18 Range/Units 04:22 WBC (4.5-11.0) K/mm3 RBC (3.65-5.03) M/mm3 Hgb (10.1-14.3) gm/dl Hct (30.3-42.9) % MCV (79-97) fl MCH (28-32) pg RDW (13.2-15.2) % Plt Count (140-440) K/mm3 Chloride 112.9 H (98-107) mmol/L Carbon Dioxide 15 L (22-30) mmol/L BUN 76 H (7-17) mg/dL Creatinine 1.8 H (0.7-1.2) mg/dL Glucose 107 H (65-100) mg/dL POC Glucose (70-105) Calcium 7.4 L (8.4-10.2) mg/dL Crossmatch
--- NOTE | 2018-12-19 12:07 | XRay Report ---
AP CHEST: HISTORY: Right arm PICC placement A right arm PICC has been inserted which terminates in the mid SVC. A right IJ venous catheter has been removed. The endotracheal tube and nasogastric tube remain in adequate position. Mild cardiomegaly is stable. The lungs are grossly clear although there is poor visualization of the left lung base. IMPRESSION: The right arm PICC terminates in the mid SVC. Otherwise, no significant change since 12/15/18.
[2018-12-19] MEDS: SODIUM BICARBONATE 75 MEQ in D5W 1,000 ML IV SCH (12:41)
[2018-12-19] MEDS: SODIUM CHLORIDE FLUSH SYRINGE 10 ML IV SCH (12:42)
[2018-12-19] MEDS: LEVOPHED DRIP 4 MG/NS 250 ML 4 MG/250 ML BAG IV SCH (14:15)
[2018-12-19] MEDS ORDERED: PROAMATINE PO SCH (18:44)
[2018-12-19 19:14] LABS: Hematocrit 22.2 % (30.3-42.9); Hemoglobin 7.2 gm/dl (10.1-14.3)
[2018-12-20] MEDS: SODIUM BICARBONATE 75 MEQ in D5W 1,000 ML IV SCH (03:04)
[2018-12-20] MEDS: DUONEB *Not for PRN Use IH SCH ×4 (03:15→19:13)
[2018-12-20 04:34] LABS: Hematocrit 21.6 % (30.3-42.9); Hemoglobin 7.1 gm/dl (10.1-14.3); Mean Corpuscular HGB Conc 33 % (30-34); Mean Corpuscular Volume 74 fl (79-97); Red Blood Count 2.92 M/mm3 (3.65-5.03)
[2018-12-20 04:35] LABS: Platelet Count 23 K/mm3 (140-440); Red Cell Distribution Width 24.3 % (13.2-15.2)
[2018-12-20 04:54] LABS: Calcium 7.5 mg/dL (8.4-10.2)
--- NOTE | 2018-12-20 08:49 | Progress Note ---
Assessment and Plan - Patient Problems (1) Acute kidney failure with tubular necrosis Current Visit: Yes Status: Acute Plan to address problem: Kidney function is worsening. Patient has peripheral edema. Positive fluid balance but incomplete collection of urine output. Follow-up electrolytes and renal function (2) Acidosis Current Visit: Yes Status: Acute Plan to address problem: Bicarbonate is improving. Continue supplements. (3) Sepsis Current Visit: Yes Status: Acute Qualifiers: Sepsis type: sepsis due to unspecified organism Qualified Code(s): A41.9 - Sepsis, unspecified organism Plan to address problem: Sepsis secondary to urinary tract infections versus right otitis media/mastoidit is versus meningitis/encephalitis. Unable to get an LP due to the thrombocytopenia. Leukocytosis is worsening and is concerning. Continue antibiotics per infectious disease. Poor prognosis (4) Acute encephalopathy Current Visit: Yes Status: Acute Plan to address problem: Toxic/metabolic encephalopathy. Still unresponsive. Continue to monitor mental status. (5) Acute post-hemorrhagic anemia Current Visit: Yes Status: Acute Plan to address problem: Follow-up hemoglobin (6) Acute respiratory failure with hypoxia Current Visit: Yes Status: Acute Plan to address problem: Continue ventilator management by pulmonary (7) Pericardial effusion without cardiac tamponade Current Visit: Yes Status: Acute Plan to address problem: Follow-up by professor of chemistry Subjective Date of service: 12/20/18 Principal diagnosis: coffee-ground drainage Interval history: Patient seen lying in bed. No family at the bedside. Patient is still unresponsive. On Levophed 6 mcg/kg/m Objective - Exam Narrative Exam: Elderly -[place] female lying in bed intubated on the ventilator AC 350/18/25% P 6 HEENT: NCAT, endotracheal tube intact, tongue protruding Neck: Supple, no venous distention CVS: S1S2 RRR with no murmur, rub or gallop Chest: Clear to auscultation Abdomen: Protuberant, soft, nontender, no organomegaly, bowel sounds are present Extremities: 2+ edema Skin is warm and dry Genitourinary deferred Neuro: Does not open eyes, not following commands - Vital Signs Vital signs: Vital Signs - 12hr 12/19/18 12/19/18 12/19/18 20:45 21:00 21:15 Temperature Pulse Rate 68 72 75 Pulse Rate [ Anterior Bilateral Throughout] Pulse Rate [ Apical] Respiratory 19 18 18 Rate Respiratory Rate [Anterior Bilateral Throughout] Blood Pressure 115/40 111/44 111/44 O2 Sat by Pulse 99 99 99 Oximetry 12/19/18 12/19/18 12/19/18 21:30 21:45 22:00 Temperature Pulse Rate 75 78 77 Pulse Rate [ Anterior Bilateral Throughout] Pulse Rate [ Apical] Respiratory 18 18 15 Rate Respiratory Rate [Anterior Bilateral Throughout] Blood Pressure 129/47 120/49 129/49 O2 Sat by Pulse 99 100 100 Oximetry 12/19/18 12/19/18 12/19/18 22:15 22:30 22:45 Temperature Pulse Rate 75 74 73 Pulse Rate [ Anterior Bilateral Throughout] Pulse Rate [ Apical] Respiratory 18 18 18 Rate Respiratory Rate [Anterior Bilateral Throughout] Blood Pressure 129/49 119/47 126/46 O2 Sat by Pulse 100 100 100 Oximetry 12/19/18 12/19/18 12/19/18 23:00 23:15 23:30 Temperature Pulse Rate 71 67 66 Pulse Rate [ Anterior Bilateral Throughout] Pulse Rate [ Apical] Respiratory 18 18 18 Rate Respiratory Rate [Anterior Bilateral Throughout] Blood Pressure 113/44 113/44 105/43 O2 Sat by Pulse 100 100 100 Oximetry 12/19/18 12/19/18 12/19/18 23:40 23:45 23:49 Temperature 97.3 F L Pulse Rate 66 68 Pulse Rate [ Anterior Bilateral Throughout] Pulse Rate [ Apical] Respiratory 18 18 Rate Respiratory Rate [Anterior Bilateral Throughout] Blood Pressure 110/41 105/43 O2 Sat by Pulse 100 99 Oximetry 12/20/18 12/20/18 12/20/18 00:00 00:07 00:15 Temperature Pulse Rate 64 70 69 Pulse Rate [ Anterior Bilateral Throughout] Pulse Rate [ 66 Apical] Respiratory 18 18 18 Rate Respiratory Rate [Anterior Bilateral Throughout] Blood Pressure 107/39 107/39 112/44 O2 Sat by Pulse 100 100 100 Oximetry 12/20/18 12/20/18 12/20/18 00:30 00:45 01:00 Temperature Pulse Rate 67 66 66 Pulse Rate [ Anterior Bilateral Throughout] Pulse Rate [ Apical] Respiratory 18 18 18 Rate Respiratory Rate [Anterior Bilateral Throughout] Blood Pressure 106/42 103/45 112/43 O2 Sat by Pulse 100 100 100 Oximetry 12/20/18 12/20/18 12/20/18 01:15 01:30 01:45 Temperature Pulse Rate 64 65 64 Pulse Rate [ Anterior Bilateral Throughout] Pulse Rate [ Apical] Respiratory 18 19 18 Rate Respiratory Rate [Anterior Bilateral Throughout] Blood Pressure 98/37 104/47 103/39 O2 Sat by Pulse 100 100 100 Oximetry 12/20/18 12/20/18 12/20/18 02:00 02:15 02:30 Temperature Pulse Rate 64 60 66 Pulse Rate [ Anterior Bilateral Throughout] Pulse Rate [ Apical] Respiratory 18 18 18 Rate Respiratory Rate [Anterior Bilateral Throughout] Blood Pressure 94/37 101/40 103/43 O2 Sat by Pulse 100 100 100 Oximetry 12/20/18 12/20/18 12/20/18 02:45 03:00 03:15 Temperature Pulse Rate 63 64 59 L Pulse Rate [ 60 Anterior Bilateral Throughout] Pulse Rate [ Apical] Respiratory 18 18 18 Rate Respiratory 18 Rate [Anterior Bilateral Throughout] Blood Pressure 113/43 99/39 98/39 O2 Sat by Pulse 100 100 100 Oximetry 12/20/18 12/20/18 12/20/18 03:16 03:25 03:30 Temperature 97.4 F L Pulse Rate 60 60 Pulse Rate [ 62 Anterior Bilateral Throughout] Pulse Rate [ Apical] Respiratory 18 18 Rate Respiratory 18 Rate [Anterior Bilateral Throughout] Blood Pressure 98/39 96/36 O2 Sat by Pulse 100 100 Oximetry 12/20/18 12/20/18 12/20/18 03:45 04:00 04:15 Temperature Pulse Rate 60 62 65 Pulse Rate [ Anterior Bilateral Throughout] Pulse Rate [ 67 Apical] Respiratory 18 18 18 Rate Respiratory Rate [Anterior Bilateral Throughout] Blood Pressure 105/38 99/39 103/39 O2 Sat by Pulse 100 100 100 Oximetry 12/20/18 12/20/18 12/20/18 04:30 04:45 05:00 Temperature Pulse Rate 66 61 64 Pulse Rate [ Anterior Bilateral Throughout] Pulse Rate [ Apical] Respiratory 18 18 18 Rate Respiratory Rate [Anterior Bilateral Throughout] Blood Pressure 107/40 105/39 107/38 O2 Sat by Pulse 100 100 100 Oximetry 12/20/18 12/20/18 12/20/18 05:15 05:30 05:45 Temperature Pulse Rate 66 63 66 Pulse Rate [ Anterior Bilateral Throughout] Pulse Rate [ Apical] Respiratory 19 18 18 Rate Respiratory Rate [Anterior Bilateral Throughout] Blood Pressure 104/47 104/39 121/48 O2 Sat by Pulse 100 100 100 Oximetry 12/20/18 12/20/18 12/20/18 06:01 06:15 06:31 Temperature Pulse Rate 60 66 62 Pulse Rate [ Anterior Bilateral Throughout] Pulse Rate [ Apical] Respiratory 11 L 17 18 Rate Respiratory Rate [Anterior Bilateral Throughout] Blood Pressure 104/39 104/39 121/48 O2 Sat by Pulse 99 100 100 Oximetry 12/20/18 12/20/18 12/20/18 07:51 07:56 08:00 Temperature 97.2 F L Pulse Rate 59 L Pulse Rate [ 59 L Anterior Bilateral Throughout] Pulse Rate [ Apical] Respiratory Rate Respiratory 18 Rate [Anterior Bilateral Throughout] Blood Pressure 105/44 O2 Sat by Pulse 100 Oximetry - Lab 12/20/18 03:07 12/20/18 03:07 Most recent lab results Calcium 7.5 mg/dL (8.4-10.2) L 12/20/18 03:07 Phosphorus 5.10 mg/dL (2.5-4.5) H 12/18/18 04:08 Medications & Allergies - Medications Allergies/Adverse Reactions: Allergies Penicillins Allergy (Verified 12/08/18 13:13) Hives Home Medications: Home Medications Medication Instructions Recorded Confirmed Last Taken Type ALBUTEROL Inhaler (OR & NICU) 2 puff IH QID PRN #1 inhalation 12/21/16 12/08/18 Unknown Rx [Proair] Albuterol Sulfate [Albuterol 0.63% 0.63 mg IH TID PRN #90 ml 12/21/16 12/08/18 Unknown Rx NEBS] Amlodipine Besylate [Norvasc] 10 mg PO DAILY #90 tablet 12/21/16 12/08/18 Unknown Rx AtorvaSTATin [Lipitor] 20 mg PO QHS #90 tablet 12/21/16 12/08/18 Unknown Rx Hydralazine HCl [Apresoline TAB] 50 mg PO TID #90 tablet 12/21/16 12/08/18 Unknown Rx Metoprolol [Lopressor TAB] 25 mg PO BID #90 tablet 12/21/16 12/08/18 Unknown Rx Promethazine /Codeine 5 ml PO Q6H PRN #100 ml 12/21/16 12/08/18 Unknown Rx [Phenergan/Codeine 6.25-10 mg/5 ml] Active Medications: Generic Name Dose Route Start Last Admin Trade Name Freq PRN Reason Stop Dose Admin Acetaminophen 650 mg 12/09/18 01:00 12/09/18 10:00 Tylenol [place] 650 mg Q4H PRN Administration Pain MILD(1-3)/Fever >100.5/TURNER Albuterol 2.5 mg 12/09/18 00:31 Proventil IH Q4HRT PRN Shortness Of Breath Albuterol/Ipratropium 1 ampul 12/09/18 02:00 12/20/18 07:55 Duoneb *Not For Prn Use* IH 1 ampul Q6HRT KOLE Administration Lipase/Protease/Amylase 1 each 12/09/18 04:05 Pancreaze 10,500 Unit FEEDTUBE PRN PRN For Clogged Feeding Tube Hydrophilic Ointment 1 applic 12/14/18 13:00 Vaseline Lip Therapy TP DIRECT PRN Dry tongue Sodium Bicarbonate 75 meq/ 1,075 mls @ 75 mls/hr 12/17/18 18:00 12/20/18 03:04 Dextrose IV 75 mls/hr DIRECT KOLE Administration Norepinephrine 4 mg in 250 mls @ 7.5 mls/hr 12/18/18 18:00 12/19/18 18:00 Levophed Drip 4 Mg/Ns 250 Ml IV 0 mcg/min TITR KOLE 0 mls/hr Titration Protocol 2 MCG/MIN Meropenem 1,000 mg/ Sodium 100 mls @ 100 mls/hr 12/20/18 10:00 Chloride IV Q24HR KOLE Protocol Sodium Chloride 500 mls @ 0 mls/hr 12/20/18 09:00 Nacl 0.9% 500 Ml IV 12/20/18 09:01 ONCE ONE As Directed Insulin Human Lispro 0 unit 12/11/18 12:00 12/19/18 18:28 Humalog SUB-Q 4 unit Q6HR KOLE Administration Protocol Lansoprazole 30 mg 12/12/18 10:00 12/19/18 21:52 Prevacid Solutab FEEDTUBE 30 mg BID KOLE Administration Midodrine 10 mg 12/18/18 19:01 12/19/18 15:54 Proamatine PO 10 mg TID@0800,1200,1600 KOLE Administration Multi-Ingred Cream/Lotion/Oil/Oint 1 applic 12/08/18 13:31 Artificial Tears Ophth Oint OU Q4HR PRN Dry Eye(s) Ondansetron HCl 4 mg 12/09/18 00:31 Zofran IV Q8H PRN Nausea And Vomiting Simple Syrup 15 ml 12/09/18 04:05 Simple Syrup FEEDTUBE PRN PRN Hypoglycemia Simple Syrup 30 ml 12/09/18 04:05 Simple Syrup FEEDTUBE PRN PRN Hypoglycemia Sodium Bicarbonate 325 mg 12/09/18 04:05 Sodium Bicarbonate FEEDTUBE PRN PRN For Clogged Feeding Tube Sodium Chloride 10 ml 12/09/18 10:00 12/19/18 12:42 Sodium Chloride Flush Syringe 10 Ml IV 10 ml BID KOLE Administration Sodium Chloride 10 ml 12/09/18 00:31 12/17/18 10:47 Sodium Chloride Flush Syringe 10 Ml IV 10 ml PRN PRN Administration LINE FLUSH
[2018-12-20] MEDS ORDERED: NACL 0.9% 500 ML 500 ML IV ONE (09:00)
--- NOTE | 2018-12-20 09:20 | Progress Note ---
Assessment and Plan 88 y/o female with acute respiratory failure, altered mental state, presumptive acute renal failure and hypotension with thrombocytopenia and dirty urine analysis. 1. Monitor BP 2. Continue feeds at low dose, will start titrating today. 3. Remains in renal failure with Cr slightly worse again today. 4. HgB down to 7. If drops below this would transfuse, especially with hypotension. Hanging on at 7 but if pressors are needed again, will suggest transfusion. Also with worsening renal failure, will likely need something like epogen if that is warranted. 5. Need family meeting soon. Hopeful to find someone who can place us in contact with the sons. Overall prognosis is extremely poor. Patient does not appear to be a candidate for HD and with persistent thrombocytopenia she is high risk for spontaneous bleed CCT 31 minutes. Subjective Date of service: 12/20/18 Principal diagnosis: coffee-ground drainage Interval history: No acute events. Off pressors for now. Reviewed ID note and continued Merrem. HgB is 7 and stable. Still no family present. Remains unresponsive on vent, not on sedation. Objective Vital Signs - 12hr 12/19/18 12/19/18 12/19/18 21:15 21:30 21:45 Temperature Pulse Rate 75 75 78 Pulse Rate [ Anterior Bilateral Throughout] Pulse Rate [ Apical] Respiratory 18 18 18 Rate Respiratory Rate [Anterior Bilateral Throughout] Blood Pressure 111/44 129/47 120/49 O2 Sat by Pulse 99 99 100 Oximetry 12/19/18 12/19/18 12/19/18 22:00 22:15 22:30 Temperature Pulse Rate 77 75 74 Pulse Rate [ Anterior Bilateral Throughout] Pulse Rate [ Apical] Respiratory 15 18 18 Rate Respiratory Rate [Anterior Bilateral Throughout] Blood Pressure 129/49 129/49 119/47 O2 Sat by Pulse 100 100 100 Oximetry 12/19/18 12/19/18 12/19/18 22:45 23:00 23:15 Temperature Pulse Rate 73 71 67 Pulse Rate [ Anterior Bilateral Throughout] Pulse Rate [ Apical] Respiratory 18 18 18 Rate Respiratory Rate [Anterior Bilateral Throughout] Blood Pressure 126/46 113/44 113/44 O2 Sat by Pulse 100 100 100 Oximetry 12/19/18 12/19/18 12/19/18 23:30 23:40 23:45 Temperature 97.3 F L Pulse Rate 66 66 Pulse Rate [ Anterior Bilateral Throughout] Pulse Rate [ Apical] Respiratory 18 18 Rate Respiratory Rate [Anterior Bilateral Throughout] Blood Pressure 105/43 110/41 O2 Sat by Pulse 100 100 Oximetry 12/19/18 12/20/18 12/20/18 23:49 00:00 00:07 Temperature Pulse Rate 68 64 70 Pulse Rate [ Anterior Bilateral Throughout] Pulse Rate [ 66 Apical] Respiratory 18 18 18 Rate Respiratory Rate [Anterior Bilateral Throughout] Blood Pressure 105/43 107/39 107/39 O2 Sat by Pulse 99 100 100 Oximetry 12/20/18 12/20/18 12/20/18 00:15 00:30 00:45 Temperature Pulse Rate 69 67 66 Pulse Rate [ Anterior Bilateral Throughout] Pulse Rate [ Apical] Respiratory 18 18 18 Rate Respiratory Rate [Anterior Bilateral Throughout] Blood Pressure 112/44 106/42 103/45 O2 Sat by Pulse 100 100 100 Oximetry 12/20/18 12/20/18 12/20/18 01:00 01:15 01:30 Temperature Pulse Rate 66 64 65 Pulse Rate [ Anterior Bilateral Throughout] Pulse Rate [ Apical] Respiratory 18 18 19 Rate Respiratory Rate [Anterior Bilateral Throughout] Blood Pressure 112/43 98/37 104/47 O2 Sat by Pulse 100 100 100 Oximetry 12/20/18 12/20/18 12/20/18 01:45 02:00 02:15 Temperature Pulse Rate 64 64 60 Pulse Rate [ Anterior Bilateral Throughout] Pulse Rate [ Apical] Respiratory 18 18 18 Rate Respiratory Rate [Anterior Bilateral Throughout] Blood Pressure 103/39 94/37 101/40 O2 Sat by Pulse 100 100 100 Oximetry 12/20/18 12/20/18 12/20/18 02:30 02:45 03:00 Temperature Pulse Rate 66 63 64 Pulse Rate [ Anterior Bilateral Throughout] Pulse Rate [ Apical] Respiratory 18 18 18 Rate Respiratory Rate [Anterior Bilateral Throughout] Blood Pressure 103/43 113/43 99/39 O2 Sat by Pulse 100 100 100 Oximetry 12/20/18 12/20/18 12/20/18 03:15 03:16 03:25 Temperature 97.4 F L Pulse Rate 59 L 60 Pulse Rate [ 60 62 Anterior Bilateral Throughout] Pulse Rate [ Apical] Respiratory 18 18 Rate Respiratory 18 18 Rate [Anterior Bilateral Throughout] Blood Pressure 98/39 98/39 O2 Sat by Pulse 100 100 Oximetry 12/20/18 12/20/18 12/20/18 03:30 03:45 04:00 Temperature Pulse Rate 60 60 62 Pulse Rate [ Anterior Bilateral Throughout] Pulse Rate [ 67 Apical] Respiratory 18 18 18 Rate Respiratory Rate [Anterior Bilateral Throughout] Blood Pressure 96/36 105/38 99/39 O2 Sat by Pulse 100 100 100 Oximetry 12/20/18 12/20/18 12/20/18 04:15 04:30 04:45 Temperature Pulse Rate 65 66 61 Pulse Rate [ Anterior Bilateral Throughout] Pulse Rate [ Apical] Respiratory 18 18 18 Rate Respiratory Rate [Anterior Bilateral Throughout] Blood Pressure 103/39 107/40 105/39 O2 Sat by Pulse 100 100 100 Oximetry 12/20/18 12/20/18 12/20/18 05:00 05:15 05:30 Temperature Pulse Rate 64 66 63 Pulse Rate [ Anterior Bilateral Throughout] Pulse Rate [ Apical] Respiratory 18 19 18 Rate Respiratory Rate [Anterior Bilateral Throughout] Blood Pressure 107/38 104/47 104/39 O2 Sat by Pulse 100 100 100 Oximetry 12/20/18 12/20/18 12/20/18 05:45 06:01 06:15 Temperature Pulse Rate 66 60 66 Pulse Rate [ Anterior Bilateral Throughout] Pulse Rate [ Apical] Respiratory 18 11 L 17 Rate Respiratory Rate [Anterior Bilateral Throughout] Blood Pressure 121/48 104/39 104/39 O2 Sat by Pulse 100 99 100 Oximetry 12/20/18 12/20/18 12/20/18 06:31 06:45 07:00 Temperature Pulse Rate 62 60 63 Pulse Rate [ Anterior Bilateral Throughout] Pulse Rate [ Apical] Respiratory 18 18 18 Rate Respiratory Rate [Anterior Bilateral Throughout] Blood Pressure 121/48 154/58 117/49 O2 Sat by Pulse 100 100 100 Oximetry 12/20/18 12/20/18 12/20/18 07:15 07:30 07:45 Temperature Pulse Rate 60 60 60 Pulse Rate [ Anterior Bilateral Throughout] Pulse Rate [ Apical] Respiratory 18 18 18 Rate Respiratory Rate [Anterior Bilateral Throughout] Blood Pressure 103/44 103/42 105/44 O2 Sat by Pulse 100 100 100 Oximetry 12/20/18 12/20/18 12/20/18 07:51 07:56 08:00 Temperature 97.2 F L Pulse Rate 59 L 59 L Pulse Rate [ 59 L Anterior Bilateral Throughout] Pulse Rate [ Apical] Respiratory 18 Rate Respiratory 18 Rate [Anterior Bilateral Throughout] Blood Pressure 105/44 105/44 O2 Sat by Pulse 100 100 Oximetry 12/20/18 12/20/18 12/20/18 08:15 08:30 08:45 Temperature Pulse Rate 60 60 60 Pulse Rate [ Anterior Bilateral Throughout] Pulse Rate [ Apical] Respiratory 18 18 18 Rate Respiratory Rate [Anterior Bilateral Throughout] Blood Pressure 107/47 127/49 110/45 O2 Sat by Pulse 100 100 100 Oximetry 12/20/18 08:51 Temperature Pulse Rate Pulse Rate [ 60 Anterior Bilateral Throughout] Pulse Rate [ Apical] Respiratory Rate Respiratory 18 Rate [Anterior Bilateral Throughout] Blood Pressure O2 Sat by Pulse Oximetry Constitutional: no acute distress, comatose, other (on vent cmv) Eyes: non-icteric ENT: oropharynx moist, other (ETT in position,large tongue) Neck: supple, no JVD, other (right left IJ lines in place) Ascultation: Bilateral: clear, diminished breath sounds Cardiovascular: regular rate and rhythm, other (pacemaker rhythm) Gastrointestinal: normoactive bowel sounds, non-distended Integumentary: normal Extremities: no cyanosis, no edema, pink and warm Neurologic: pupils equal and round, other (comatose) CBC and BMP: 12/20/18 03:07 12/20/18 03:07 ABG, PT/INR, D-dimer: ABG POC ABG pH 7.325 (7.35-7.45) L 12/15/18 03:37 POC ABG pCO2 28.6 (35-45) L 12/15/18 03:37 POC ABG pO2 105 (80-105) 12/15/18 03:37 POC ABG HCO3 14.9 12/15/18 03:37 POC ABG Total CO2 16 12/15/18 03:37 POC ABG O2 Sat 98 12/15/18 03:37 PT/INR, D-dimer PT 20.2 Sec. (12.2-14.9) H 12/12/18 08:00 INR 1.61 (0.87-1.13) H 12/12/18 08:00 Abnormal lab findings: Abnormal Labs 12/08/18 12/08/18 12/08/18 12:58 13:40 13:40 WBC RBC Hgb Hct MCV MCH RDW Plt Count Lymph % (Auto) Lymph # Seg Neutrophils % Seg Neuts % (Manual) Lymphocytes % (Manual) Monocytes % (Manual) Nucleated RBC % Seg Neutrophils # Seg Neutrophils # Man Lymphocytes # (Manual) Monocytes # (Manual) PT INR POC ABG pH POC ABG pCO2 POC ABG pO2 Sodium Potassium Chloride Carbon Dioxide BUN Creatinine Glucose POC Glucose 143 H Lactic Acid Calcium Phosphorus Total Bilirubin AST Total Creatine Kinase C-Reactive Protein Total Protein Albumin TSH Free T4 Urine WBC (Auto) 157.0 H Crossmatch See Detail 12/08/18 12/08/18 12/08/18 13:40 13:40 13:40 WBC RBC 3.06 L Hgb 6.8 L Hct 21.1 L MCV 69 L MCH 22 L RDW 16.2 H Plt Count 56 L Lymph % (Auto) Lymph # Seg Neutrophils % Seg Neuts % (Manual) Lymphocytes % (Manual) 2.0 L Monocytes % (Manual) Nucleated RBC % Seg Neutrophils # Seg Neutrophils # Man Lymphocytes # (Manual) 0.2 L Monocytes # (Manual) PT INR POC ABG pH POC ABG pCO2 POC ABG pO2 Sodium Potassium 3.2 L Chloride Carbon Dioxide 18 L BUN 64 H Creatinine 1.5 H Glucose 145 H POC Glucose Lactic Acid 4.00 H* Calcium 7.7 L Phosphorus Total Bilirubin AST Total Creatine Kinase 258 H C-Reactive Protein Total Protein 4.6 L Albumin 1.8 L TSH Free T4 Urine WBC (Auto) Crossmatch 12/08/18 12/08/18 12/08/18 14:29 15:21 16:06 WBC RBC Hgb Hct MCV MCH RDW Plt Count Lymph % (Auto) Lymph # Seg Neutrophils % Seg Neuts % (Manual) Lymphocytes % (Manual) Monocytes % (Manual) Nucleated RBC % Seg Neutrophils # Seg Neutrophils # Man Lymphocytes # (Manual) Monocytes # (Manual) PT 20.5 H INR 1.64 H POC ABG pH POC ABG pCO2 34.2 L POC ABG pO2 465 H Sodium Potassium Chloride Carbon Dioxide BUN Creatinine Glucose POC Glucose Lactic Acid 3.00 H* Calcium Phosphorus Total Bilirubin AST Total Creatine Kinase C-Reactive Protein Total Protein Albumin TSH Free T4 Urine WBC (Auto) Crossmatch 12/09/18 12/09/18 12/09/18 02:31 05:36 05:36 WBC 14.5 H RBC Hgb Hct MCV 75 L MCH 25 L RDW 20.4 H Plt Count 68 L Lymph % (Auto) Lymph # Seg Neutrophils % Seg Neuts % (Manual) 81.0 H Lymphocytes % (Manual) 1.0 L Monocytes % (Manual) Nucleated RBC % Seg Neutrophils # Seg Neutrophils # Man 11.7 H Lymphocytes # (Manual) 0.1 L Monocytes # (Manual) PT INR POC ABG pH POC ABG pCO2 POC ABG pO2 Sodium Potassium Chloride 107.6 H Carbon Dioxide 18 L BUN 75 H Creatinine 1.9 H Glucose 136 H POC Glucose 152 H Lactic Acid Calcium 7.9 L Phosphorus Total Bilirubin 1.60 H AST 44 H Total Creatine Kinase C-Reactive Protein Total Protein 5.2 L Albumin 2.4 L TSH Free T4 Urine WBC (Auto) Crossmatch 12/09/18 12/09/18 12/09/18 05:43 10:47 13:46 WBC RBC Hgb Hct MCV MCH RDW Plt Count Lymph % (Auto) Lymph # Seg Neutrophils % Seg Neuts % (Manual) Lymphocytes % (Manual) Monocytes % (Manual) Nucleated RBC % Seg Neutrophils # Seg Neutrophils # Man Lymphocytes # (Manual) Monocytes # (Manual) PT INR POC ABG pH 7.308 L POC ABG pCO2 POC ABG pO2 183 H Sodium Potassium Chloride Carbon Dioxide BUN Creatinine Glucose POC Glucose 150 H 162 H Lactic Acid Calcium Phosphorus Total Bilirubin AST Total Creatine Kinase C-Reactive Protein Total Protein Albumin TSH Free T4 Urine WBC (Auto) Crossmatch 12/09/18 12/09/18 12/09/18 15:54 15:54 16:40 WBC RBC Hgb Hct MCV MCH RDW Plt Count Lymph % (Auto) Lymph # Seg Neutrophils % Seg Neuts % (Manual) Lymphocytes % (Manual) Monocytes % (Manual) Nucleated RBC % Seg Neutrophils # Seg Neutrophils # Man Lymphocytes # (Manual) Monocytes # (Manual) PT INR POC ABG pH POC ABG pCO2 POC ABG pO2 Sodium Potassium Chloride Carbon Dioxide BUN Creatinine Glucose POC Glucose 197 H Lactic Acid Calcium Phosphorus Total Bilirubin AST Total Creatine Kinase C-Reactive Protein Total Protein Albumin TSH 0.268 L Free T4 0.58 L Urine WBC (Auto) Crossmatch 12/09/18 12/09/18 12/09/18 18:18 18:18 21:51 WBC RBC Hgb Hct MCV MCH RDW Plt Count Lymph % (Auto) Lymph # Seg Neutrophils % Seg Neuts % (Manual) Lymphocytes % (Manual) Monocytes % (Manual) Nucleated RBC % Seg Neutrophils # Seg Neutrophils # Man Lymphocytes # (Manual) Monocytes # (Manual) PT INR POC ABG pH POC ABG pCO2 POC ABG pO2 Sodium Potassium Chloride 108.2 H Carbon Dioxide 16 L BUN 89 H Creatinine 2.3 H Glucose 180 H POC Glucose 198 H Lactic Acid Calcium 7.9 L Phosphorus Total Bilirubin AST Total Creatine Kinase C-Reactive Protein 19.60 H Total Protein Albumin TSH Free T4 Urine WBC (Auto) Crossmatch 12/10/18 12/10/18 12/10/18 01:59 04:14 04:38 WBC 11.5 H RBC Hgb Hct MCV 75 L MCH 25 L RDW 21.1 H Plt Count 81 L Lymph % (Auto) 5.6 L Lymph # 0.6 L Seg Neutrophils % 89.8 H Seg Neuts % (Manual) Lymphocytes % (Manual) Monocytes % (Manual) Nucleated RBC % Seg Neutrophils # 10.3 H Seg Neutrophils # Man Lymphocytes # (Manual) Monocytes # (Manual) PT INR POC ABG pH 7.273 L POC ABG pCO2 32.1 L POC ABG pO2 161 H Sodium Potassium Chloride Carbon Dioxide BUN Creatinine Glucose POC Glucose 219 H Lactic Acid Calcium Phosphorus Total Bilirubin AST Total Creatine Kinase C-Reactive Protein Total Protein Albumin TSH Free T4 Urine WBC (Auto) Crossmatch 12/10/18 12/10/18 12/10/18 04:38 05:07 07:26 WBC RBC Hgb Hct MCV MCH RDW Plt Count Lymph % (Auto) Lymph # Seg Neutrophils % Seg Neuts % (Manual) Lymphocytes % (Manual) Monocytes % (Manual) Nucleated RBC % Seg Neutrophils # Seg Neutrophils # Man Lymphocytes # (Manual) Monocytes # (Manual) PT INR POC ABG pH POC ABG pCO2 POC ABG pO2 Sodium Potassium Chloride 112.5 H Carbon Dioxide 14 L BUN 94 H Creatinine 2.4 H Glucose 207 H POC Glucose 221 H 212 H Lactic Acid Calcium 7.7 L Phosphorus Total Bilirubin AST Total Creatine Kinase C-Reactive Protein Total Protein Albumin TSH Free T4 Urine WBC (Auto) Crossmatch 12/10/18 12/10/18 12/10/18 10:40 11:15 14:21 WBC RBC Hgb Hct MCV MCH RDW Plt Count Lymph % (Auto) Lymph # Seg Neutrophils % Seg Neuts % (Manual) Lymphocytes % (Manual) Monocytes % (Manual) Nucleated RBC % Seg Neutrophils # Seg Neutrophils # Man Lymphocytes # (Manual) Monocytes # (Manual) PT 21.4 H INR 1.73 H POC ABG pH 7.214 L POC ABG pCO2 32.8 L POC ABG pO2 Sodium Potassium Chloride Carbon Dioxide BUN Creatinine Glucose POC Glucose 227 H Lactic Acid Calcium Phosphorus Total Bilirubin AST Total Creatine Kinase C-Reactive Protein Total Protein Albumin TSH Free T4 Urine WBC (Auto) Crossmatch 12/10/18 12/10/18 12/11/18 15:47 22:38 03:36 WBC RBC Hgb Hct MCV MCH RDW Plt Count Lymph % (Auto) Lymph # Seg Neutrophils % Seg Neuts % (Manual) Lymphocytes % (Manual) Monocytes % (Manual) Nucleated RBC % Seg Neutrophils # Seg Neutrophils # Man Lymphocytes # (Manual) Monocytes # (Manual) PT INR POC ABG pH POC ABG pCO2 26.2 L POC ABG pO2 138 H Sodium Potassium Chloride Carbon Dioxide BUN Creatinine Glucose POC Glucose 202 H 259 H Lactic Acid Calcium Phosphorus Total Bilirubin AST Total Creatine Kinase C-Reactive Protein Total Protein Albumin TSH Free T4 Urine WBC (Auto) Crossmatch 12/11/18 12/11/18 12/11/18 04:12 05:00 06:19 WBC RBC Hgb Hct MCV MCH RDW Plt Count Lymph % (Auto) Lymph # Seg Neutrophils % Seg Neuts % (Manual) Lymphocytes % (Manual) Monocytes % (Manual) Nucleated RBC % Seg Neutrophils # Seg Neutrophils # Man Lymphocytes # (Manual) Monocytes # (Manual) PT 19.5 H INR 1.54 H POC ABG pH POC ABG pCO2 24.6 L POC ABG pO2 119 H Sodium Potassium Chloride Carbon Dioxide BUN Creatinine Glucose POC Glucose 174 H Lactic Acid Calcium Phosphorus Total Bilirubin AST Total Creatine Kinase C-Reactive Protein Total Protein Albumin TSH Free T4 Urine WBC (Auto) Crossmatch 12/11/18 12/11/18 12/11/18 11:10 11:10 18:10 WBC 14.3 H RBC Hgb Hct MCV 73 L MCH 24 L RDW 21.5 H Plt Count Lymph % (Auto) Lymph # Seg Neutrophils % Seg Neuts % (Manual) Lymphocytes % (Manual) Monocytes % (Manual) Nucleated RBC % Seg Neutrophils # Seg Neutrophils # Man Lymphocytes # (Manual) Monocytes # (Manual) PT INR POC ABG pH POC ABG pCO2 POC ABG pO2 Sodium Potassium Chloride 110.5 H Carbon Dioxide 15 L BUN 101 H Creatinine 2.4 H Glucose 119 H POC Glucose 147 H Lactic Acid Calcium 7.7 L Phosphorus Total Bilirubin AST Total Creatine Kinase C-Reactive Protein Total Protein Albumin TSH Free T4 Urine WBC (Auto) Crossmatch 12/11/18 12/12/18 12/12/18 23:25 05:37 06:03 WBC RBC Hgb Hct MCV MCH RDW Plt Count Lymph % (Auto) Lymph # Seg Neutrophils % Seg Neuts % (Manual) Lymphocytes % (Manual) Monocytes % (Manual) Nucleated RBC % Seg Neutrophils # Seg Neutrophils # Man Lymphocytes # (Manual) Monocytes # (Manual) PT INR POC ABG pH 7.346 L POC ABG pCO2 28.3 L POC ABG pO2 120 H Sodium Potassium Chloride Carbon Dioxide BUN Creatinine Glucose POC Glucose 143 H 154 H Lactic Acid Calcium Phosphorus Total Bilirubin AST Total Creatine Kinase C-Reactive Protein Total Protein Albumin TSH Free T4 Urine WBC (Auto) Crossmatch 12/12/18 12/12/18 12/12/18 08:00 08:00 08:00 WBC 16.2 H RBC Hgb Hct MCV 74 L MCH 25 L RDW 21.9 H Plt Count 21 L Lymph % (Auto) Lymph # Seg Neutrophils % Seg Neuts % (Manual) Lymphocytes % (Manual) Monocytes % (Manual) Nucleated RBC % Seg Neutrophils # Seg Neutrophils # Man Lymphocytes # (Manual) Monocytes # (Manual) PT 20.2 H INR 1.61 H POC ABG pH POC ABG pCO2 POC ABG pO2 Sodium Potassium Chloride 107.4 H Carbon Dioxide 16 L BUN 101 H Creatinine 2.3 H Glucose 169 H POC Glucose Lactic Acid Calcium 8.2 L Phosphorus Total Bilirubin AST Total Creatine Kinase C-Reactive Protein Total Protein Albumin TSH Free T4 Urine WBC (Auto) Crossmatch 12/12/18 12/12/18 12/13/18 12:59 18:01 04:28 WBC 18.6 H RBC Hgb Hct MCV 74 L MCH 24 L RDW 21.8 H Plt Count 34 L Lymph % (Auto) Lymph # Seg Neutrophils % Seg Neuts % (Manual) 97.0 H Lymphocytes % (Manual) 2.0 L Monocytes % (Manual) Nucleated RBC % 1.0 H Seg Neutrophils # Seg Neutrophils # Man 18.0 H Lymphocytes # (Manual) 0.4 L Monocytes # (Manual) PT INR POC ABG pH POC ABG pCO2 POC ABG pO2 Sodium Potassium Chloride Carbon Dioxide BUN Creatinine Glucose POC Glucose 158 H 123 H Lactic Acid Calcium Phosphorus Total Bilirubin AST Total Creatine Kinase C-Reactive Protein Total Protein Albumin TSH Free T4 Urine WBC (Auto) Crossmatch 12/13/18 12/13/18 12/13/18 04:28 04:45 19:17 WBC RBC Hgb Hct MCV MCH RDW Plt Count Lymph % (Auto) Lymph # Seg Neutrophils % Seg Neuts % (Manual) Lymphocytes % (Manual) Monocytes % (Manual) Nucleated RBC % Seg Neutrophils # Seg Neutrophils # Man Lymphocytes # (Manual) Monocytes # (Manual) PT INR POC ABG pH 7.327 L POC ABG pCO2 31.1 L POC ABG pO2 136 H Sodium Potassium Chloride 112.0 H Carbon Dioxide 17 L BUN 97 H Creatinine 2.2 H Glucose POC Glucose 106 H Lactic Acid Calcium 8.1 L Phosphorus Total Bilirubin AST Total Creatine Kinase C-Reactive Protein Total Protein Albumin TSH Free T4 Urine WBC (Auto) Crossmatch 12/13/18 12/14/18 12/14/18 23:24 03:35 03:35 WBC 22.0 H RBC Hgb Hct MCV 75 L MCH 24 L RDW 22.2 H Plt Count 44 L Lymph % (Auto) Lymph # Seg Neutrophils % Seg Neuts % (Manual) 96.0 H Lymphocytes % (Manual) 3.0 L Monocytes % (Manual) Nucleated RBC % Seg Neutrophils # Seg Neutrophils # Man 21.1 H Lymphocytes # (Manual) 0.7 L Monocytes # (Manual) PT INR POC ABG pH POC ABG pCO2 POC ABG pO2 Sodium 136 L Potassium Chloride 107.2 H Carbon Dioxide 15 L BUN 87 H Creatinine 1.7 H Glucose 156 H POC Glucose 108 H Lactic Acid Calcium 7.7 L Phosphorus Total Bilirubin AST Total Creatine Kinase C-Reactive Protein Total Protein Albumin TSH Free T4 Urine WBC (Auto) Crossmatch 12/14/18 12/14/18 12/14/18 04:58 05:37 12:10 WBC RBC Hgb Hct MCV MCH RDW Plt Count Lymph % (Auto) Lymph # Seg Neutrophils % Seg Neuts % (Manual) Lymphocytes % (Manual) Monocytes % (Manual) Nucleated RBC % Seg Neutrophils # Seg Neutrophils # Man Lymphocytes # (Manual) Monocytes # (Manual) PT INR POC ABG pH 7.301 L POC ABG pCO2 32.6 L POC ABG pO2 138 H Sodium Potassium Chloride Carbon Dioxide BUN Creatinine Glucose POC Glucose 178 H 208 H Lactic Acid Calcium Phosphorus Total Bilirubin AST Total Creatine Kinase C-Reactive Protein Total Protein Albumin TSH Free T4 Urine WBC (Auto) Crossmatch 12/14/18 12/14/18 12/15/18 17:44 23:16 03:37 WBC RBC Hgb Hct MCV MCH RDW Plt Count Lymph % (Auto) Lymph # Seg Neutrophils % Seg Neuts % (Manual) Lymphocytes % (Manual) Monocytes % (Manual) Nucleated RBC % Seg Neutrophils # Seg Neutrophils # Man Lymphocytes # (Manual) Monocytes # (Manual) PT INR POC ABG pH 7.325 L POC ABG pCO2 28.6 L POC ABG pO2 Sodium Potassium Chloride Carbon Dioxide BUN Creatinine Glucose POC Glucose 172 H 123 H Lactic Acid Calcium Phosphorus Total Bilirubin AST Total Creatine Kinase C-Reactive Protein Total Protein Albumin TSH Free T4 Urine WBC (Auto) Crossmatch 12/15/18 12/15/18 12/15/18 05:30 05:30 05:43 WBC 20.1 H RBC Hgb 9.5 L Hct 29.2 L MCV 74 L MCH 24 L RDW 22.7 H Plt Count 48 L Lymph % (Auto) Lymph # Seg Neutrophils % Seg Neuts % (Manual) 96.0 H Lymphocytes % (Manual) 1.0 L Monocytes % (Manual) Nucleated RBC % Seg Neutrophils # Seg Neutrophils # Man 19.3 H Lymphocytes # (Manual) 0.2 L Monocytes # (Manual) PT INR POC ABG pH POC ABG pCO2 POC ABG pO2 Sodium Potassium Chloride 110.8 H Carbon Dioxide 17 L BUN 83 H Creatinine 1.6 H Glucose 150 H POC Glucose 151 H Lactic Acid Calcium 7.7 L Phosphorus Total Bilirubin AST Total Creatine Kinase C-Reactive Protein Total Protein Albumin TSH Free T4 Urine WBC (Auto) Crossmatch 12/15/18 12/15/18 12/16/18 12:56 18:21 00:10 WBC RBC Hgb Hct MCV MCH RDW Plt Count Lymph % (Auto) Lymph # Seg Neutrophils % Seg Neuts % (Manual) Lymphocytes % (Manual) Monocytes % (Manual) Nucleated RBC % Seg Neutrophils # Seg Neutrophils # Man Lymphocytes # (Manual) Monocytes # (Manual) PT INR POC ABG pH POC ABG pCO2 POC ABG pO2 Sodium Potassium Chloride Carbon Dioxide BUN Creatinine Glucose POC Glucose 190 H 143 H 174 H Lactic Acid Calcium Phosphorus Total Bilirubin AST Total Creatine Kinase C-Reactive Protein Total Protein Albumin TSH Free T4 Urine WBC (Auto) Crossmatch 12/16/18 12/16/18 12/16/18 05:24 05:30 05:30 WBC 17.1 H RBC Hgb 9.1 L Hct 28.8 L MCV 76 L MCH 24 L RDW 23.5 H Plt Count 37 L Lymph % (Auto) Lymph # Seg Neutrophils % Seg Neuts % (Manual) Lymphocytes % (Manual) 9.0 L Monocytes % (Manual) 9.0 H Nucleated RBC % Seg Neutrophils # Seg Neutrophils # Man 9.6 H Lymphocytes # (Manual) Monocytes # (Manual) 1.5 H PT INR POC ABG pH POC ABG pCO2 POC ABG pO2 Sodium Potassium Chloride 110.8 H Carbon Dioxide 15 L BUN 81 H Creatinine 1.6 H Glucose 161 H POC Glucose 154 H Lactic Acid Calcium 7.6 L Phosphorus Total Bilirubin AST Total Creatine Kinase C-Reactive Protein Total Protein Albumin TSH Free T4 Urine WBC (Auto) Crossmatch 12/16/18 12/16/18 12/16/18 12:31 17:42 21:56 WBC RBC Hgb Hct MCV MCH RDW Plt Count Lymph % (Auto) Lymph # Seg Neutrophils % Seg Neuts % (Manual) Lymphocytes % (Manual) Monocytes % (Manual) Nucleated RBC % Seg Neutrophils # Seg Neutrophils # Man Lymphocytes # (Manual) Monocytes # (Manual) PT INR POC ABG pH POC ABG pCO2 POC ABG pO2 Sodium Potassium Chloride Carbon Dioxide BUN Creatinine Glucose POC Glucose 172 H 173 H 118 H Lactic Acid Calcium Phosphorus Total Bilirubin AST Total Creatine Kinase C-Reactive Protein Total Protein Albumin TSH Free T4 Urine WBC (Auto) Crossmatch 12/16/18 12/17/18 12/17/18 23:38 04:24 04:24 WBC 19.2 H RBC Hgb 9.5 L Hct 29.7 L MCV 76 L MCH 24 L RDW 24.4 H Plt Count 26 L Lymph % (Auto) Lymph # Seg Neutrophils % Seg Neuts % (Manual) Lymphocytes % (Manual) 6.0 L Monocytes % (Manual) Nucleated RBC % Seg Neutrophils # Seg Neutrophils # Man 13.1 H Lymphocytes # (Manual) Monocytes # (Manual) PT INR POC ABG pH POC ABG pCO2 POC ABG pO2 Sodium 134 L Potassium Chloride 110.0 H Carbon Dioxide 14 L BUN 83 H Creatinine 1.6 H Glucose POC Glucose 109 H Lactic Acid Calcium 7.8 L Phosphorus Total Bilirubin AST Total Creatine Kinase C-Reactive Protein Total Protein Albumin TSH Free T4 Urine WBC (Auto) Crossmatch 12/17/18 12/17/18 12/18/18 06:42 17:49 00:40 WBC RBC Hgb Hct MCV MCH RDW Plt Count Lymph % (Auto) Lymph # Seg Neutrophils % Seg Neuts % (Manual) Lymphocytes % (Manual) Monocytes % (Manual) Nucleated RBC % Seg Neutrophils # Seg Neutrophils # Man Lymphocytes # (Manual) Monocytes # (Manual) PT INR POC ABG pH POC ABG pCO2 POC ABG pO2 Sodium Potassium Chloride 113.1 H Carbon Dioxide 13 L BUN 82 H Creatinine 1.6 H Glucose POC Glucose 66 L 109 H Lactic Acid Calcium 8.0 L Phosphorus Total Bilirubin AST Total Creatine Kinase C-Reactive Protein Total Protein Albumin TSH Free T4 Urine WBC (Auto) Crossmatch 12/18/18 12/18/18 12/18/18 04:08 04:08 12:45 WBC 26.5 H RBC 3.63 L Hgb 8.7 L Hct 26.8 L MCV 74 L MCH 24 L RDW 23.3 H Plt Count 24 L Lymph % (Auto) Lymph # Seg Neutrophils % Seg Neuts % (Manual) Lymphocytes % (Manual) Monocytes % (Manual) Nucleated RBC % Seg Neutrophils # Seg Neutrophils # Man Lymphocytes # (Manual) Monocytes # (Manual) PT INR POC ABG pH POC ABG pCO2 POC ABG pO2 Sodium Potassium Chloride 114.3 H Carbon Dioxide 16 L BUN 82 H Creatinine 1.7 H Glucose POC Glucose 117 H Lactic Acid Calcium 7.8 L Phosphorus 5.10 H Total Bilirubin AST Total Creatine Kinase C-Reactive Protein Total Protein Albumin TSH Free T4 Urine WBC (Auto) Crossmatch 12/18/18 12/18/18 12/19/18 17:42 23:39 04:22 WBC 20.4 H RBC 3.01 L Hgb 7.2 L Hct 22.6 L MCV 75 L MCH 24 L RDW 24.5 H Plt Count 52 L D Lymph % (Auto) Lymph # Seg Neutrophils % Seg Neuts % (Manual) Lymphocytes % (Manual) Monocytes % (Manual) Nucleated RBC % Seg Neutrophils # Seg Neutrophils # Man Lymphocytes # (Manual) Monocytes # (Manual) PT INR POC ABG pH POC ABG pCO2 POC ABG pO2 Sodium Potassium Chloride Carbon Dioxide BUN Creatinine Glucose POC Glucose 121 H 184 H Lactic Acid Calcium Phosphorus Total Bilirubin AST Total Creatine Kinase C-Reactive Protein Total Protein Albumin TSH Free T4 Urine WBC (Auto) Crossmatch 12/19/18 12/19/18 12/19/18 04:22 12:43 18:12 WBC RBC Hgb Hct MCV MCH RDW Plt Count Lymph % (Auto) Lymph # Seg Neutrophils % Seg Neuts % (Manual) Lymphocytes % (Manual) Monocytes % (Manual) Nucleated RBC % Seg Neutrophils # Seg Neutrophils # Man Lymphocytes # (Manual) Monocytes # (Manual) PT INR POC ABG pH POC ABG pCO2 POC ABG pO2 Sodium Potassium Chloride 112.9 H Carbon Dioxide 15 L BUN 76 H Creatinine 1.8 H Glucose 107 H POC Glucose 141 H 227 H Lactic Acid Calcium 7.4 L Phosphorus Total Bilirubin AST Total Creatine Kinase C-Reactive Protein Total Protein Albumin TSH Free T4 Urine WBC (Auto) Crossmatch 12/19/18 12/19/18 12/20/18 23:55 Unknown 03:07 WBC 15.7 H RBC 2.92 L Hgb 7.2 L 7.1 L Hct 22.2 L 21.6 L MCV 74 L MCH 24 L RDW 24.3 H Plt Count 23 L Lymph % (Auto) Lymph # Seg Neutrophils % Seg Neuts % (Manual) Lymphocytes % (Manual) Monocytes % (Manual) Nucleated RBC % Seg Neutrophils # Seg Neutrophils # Man Lymphocytes # (Manual) Monocytes # (Manual) PT INR POC ABG pH POC ABG pCO2 POC ABG pO2 Sodium Potassium Chloride Carbon Dioxide BUN Creatinine Glucose POC Glucose 174 H Lactic Acid Calcium Phosphorus Total Bilirubin AST Total Creatine Kinase C-Reactive Protein Total Protein Albumin TSH Free T4 Urine WBC (Auto) Crossmatch 12/20/18 12/20/18 03:07 05:20 WBC RBC Hgb Hct MCV MCH RDW Plt Count Lymph % (Auto) Lymph # Seg Neutrophils % Seg Neuts % (Manual) Lymphocytes % (Manual) Monocytes % (Manual) Nucleated RBC % Seg Neutrophils # Seg Neutrophils # Man Lymphocytes # (Manual) Monocytes # (Manual) PT INR POC ABG pH POC ABG pCO2 POC ABG pO2 Sodium 136 L Potassium Chloride Carbon Dioxide 20 L BUN 79 H Creatinine 2.1 H Glucose 141 H POC Glucose 210 H Lactic Acid Calcium 7.5 L Phosphorus Total Bilirubin AST Total Creatine Kinase C-Reactive Protein Total Protein Albumin TSH Free T4 Urine WBC (Auto) Crossmatch Allied health notes reviewed: nursing
[2018-12-20] MEDS: MERREM 1,000 MG in NACL 0.9% 100 ML IV SCH (09:34)
[2018-12-20] MEDS: PROAMATINE PO SCH ×3 (09:34→18:00)
[2018-12-20] MEDS: PREVACID SOLUTAB FEEDTUBE SCH ×2 (09:34→23:00)
--- NOTE | 2018-12-20 09:41 | Progress Note ---
Assessment and Plan Assessment and plan: Acute respiratory failure, intubated Likely from underlying severe sepsis, encephalopathy and pleural effusion Sleeve Turner/Pulm consulted Continue nebs, continue antibiotics CXR showed small left pleural effusion. CT chest showed large pericardial effusion, LLL atelectasis v/s infiltrate and left pleural effusion. Unable to wean off, may need trach and PEG Acute encephalopathy: - likely from sepsis alone versus possible meningitis vs seizure. CT head extensive right MCA encephalomalcia, right mastoid opacities. neurology ordered EEG. 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 - when stable need LP for CSF cell count, diff, protein, glucose, culture, Gram stain, VDRL, HSV and Crypto ag, LP ordered by ID - continue cefepime, vancomycin renally adjusted for now Severe Sepsis due to UTI , right mastoiditis, aspiration PNA Blood cultures negative, right ear Cx negative Started on Merrem Shock, hypotension did not respond to iv bolus so was started on Levophed, BP improved so off levophed Leukocytosis Hypotension/septic shock, resolved weaned off Levophed, BP now stable Left lower lobe infiltrate, poss pneumonia - Treat with antibiotic for now /Large Pericardial effusion. TTE EF>50, no echo evidence of tamponade. Cardiology consulted, following and recommended medical management for now Coffee ground contents from NG aspirate/ Acute GI bleed cont Protonix, Consulted GI- H/h was 6.8 on admission but now stable after 2 units of PRBc transfusion cont to Monitor H/H, no plan for EGD now MARYANN on CKD 3 baseline Cr around 1.2-1.5mg/dl Likely due to underlying sepsis Monitor BMP, Consulted nephrology- no indication for HD now /Acute on chronic anemia has h/o anemia requiring previous blood transfusions could be multifactorial (GI bleed and CKD), s/p 2 Units PRBC transfused on 12/08/18 Transuse 1 Unit PRBC today for Hgb 7.1 / h/o Hypertension - BP now stable /Diabetes type 2, SSI as needed /FEN, on TF, not tolerating, On 12/17 Nurse informed me about about high residuals about 250ml when on only 20ml/hr. Will hold tube feeds, give scheduled reglan and resume later Full code status. 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 In the ED, She was found in acute respiratory failure, requiring bag valve mask ventilation and hypotensive. Noted coffee-ground drainage from OG tube and patient also found to have purulent discharge from the right ear, and stephanie are removed by ED physician. Patient was intubated in the ER and admitted to the ICU for further evaluation and management. Blood culture 12/08/[address] no growth so far. CT head extensive right MCA encephalomalcia, right mastoid opacities. CXR showed small left pleural effusion. CT chest showed large pericardial effusion, LLL atelectasis v/s infiltrate and left pleural effusion. s/p 2 units PRBc transfusion on 12/08/18. renal consulted for worsening renal function. Unable to wean off, patient may need trach and PEG. Patient became hypotensive 12/18, was placed on Levophed, now off Levophed Unresponsive Hospitalist Physical - Physical exam Narrative exam: GEN: Intubated, On vent, HEENT: Normocephalic, atraumatic, Neck: supple, No JVD Lungs: Clear to auscultation bilaterally, no wheeze Abd:soft, non tender, non distended, normal bowel sounds Ext: No edema, no clubbing, no cyanosis Neuro: Intubated, Unresponsive, does not follow commands Skin:No rash - Constitutional Vitals: Temp Pulse Resp BP Pulse Ox 97.2 F L 60 18 110/45 100 12/20/18 08:00 12/20/18 08:51 12/20/18 08:51 12/20/18 08:45 12/20/18 08:45 General appearance: Present: well-nourished Results - Labs CBC & Chem 7: 12/20/18 03:07 12/20/18 03:07 Labs: Laboratory Last Values WBC 15.7 K/mm3 (4.5-11.0) H 12/20/18 03:07 RBC 2.92 M/mm3 (3.65-5.03) L 12/20/18 03:07 Hgb 7.1 gm/dl (10.1-14.3) L 12/20/18 03:07 Hct 21.6 % (30.3-42.9) L 12/20/18 03:07 MCV 74 fl (79-97) L 12/20/18 03:07 MCH 24 pg (28-32) L 12/20/18 03:07 MCHC 33 % (30-34) 12/20/18 03:07 RDW 24.3 % (13.2-15.2) H 12/20/18 03:07 Plt Count 23 K/mm3 (140-440) L 12/20/18 03:07 Lymph % (Auto) 5.6 % (13.4-35.0) L 12/10/18 04:38 [place] % (Auto) 4.2 % (0.0-7.3) 12/10/18 04:38 Eos % (Auto) 0.3 % (0.0-4.3) 12/10/18 04:38 Baso % (Auto) 0.1 % (0.0-1.8) 12/10/18 04:38 Lymph # 0.6 K/mm3 (1.2-5.4) L 12/10/18 04:38 [place] # 0.5 K/mm3 (0.0-0.8) 12/10/18 04:38 Eos # 0.0 K/mm3 (0.0-0.4) 12/10/18 04:38 Baso # 0.0 K/mm3 (0.0-0.1) 12/10/18 04:38 Add Manual Diff Complete 12/17/18 04:24 Total Counted 100 12/17/18 04:24 Seg Neutrophils % [employer] Technician 12/17/18 04:24 Seg Neuts % (Manual) 68.0 % (40.0-70.0) 12/17/18 04:24 Band Neutrophils % 22.0 % 12/17/18 04:24 Lymphocytes % (Manual) 6.0 % (13.4-35.0) L 12/17/18 04:24 Reactive Lymphs % (Man) 0 % 12/17/18 04:24 Monocytes % (Manual) 4.0 % (0.0-7.3) 12/17/18 04:24 Eosinophils % (Manual) 0 % (0.0-4.3) 12/17/18 04:24 Basophils % (Manual) 0 % (0.0-1.8) 12/17/18 04:24 Metamyelocytes % 0 % 12/17/18 04:24 Myelocytes % 0 % 12/17/18 04:24 Promyelocytes % 0 % 12/17/18 04:24 Blast Cells % 0 % 12/17/18 04:24 Nucleated RBC % Not Reportable 12/17/18 04:24 Seg Neutrophils # 10.3 K/mm3 (1.8-7.7) H 12/10/18 04:38 Seg Neutrophils # Man 13.1 K/mm3 (1.8-7.7) H 12/17/18 04:24 Band Neutrophils # 4.2 K/mm3 12/17/18 04:24 Lymphocytes # (Manual) 1.2 K/mm3 (1.2-5.4) 12/17/18 04:24 Abs React Lymphs (Man) 0.0 K/mm3 12/17/18 04:24 Monocytes # (Manual) 0.8 K/mm3 (0.0-0.8) 12/17/18 04:24 Eosinophils # (Manual) 0.0 K/mm3 (0.0-0.4) 12/17/18 04:24 Basophils # (Manual) 0.0 K/mm3 (0.0-0.1) 12/17/18 04:24 Metamyelocytes # 0.0 K/mm3 12/17/18 04:24 Myelocytes # 0.0 K/mm3 12/17/18 04:24 Promyelocytes # 0.0 K/mm3 12/17/18 04:24 Blast Cells # 0.0 K/mm3 12/17/18 04:24 WBC Morphology Not Reportable 12/17/18 04:24 Hypersegmented Neuts Not Reportable 12/17/18 04:24 Hyposegmented Neuts Not Reportable 12/17/18 04:24 Hypogranular Neuts Not Reportable 12/17/18 04:24 Smudge Cells Not Reportable 12/17/18 04:24 Toxic Granulation Not Reportable 12/17/18 04:24 Toxic Vacuolation Not Reportable 12/17/18 04:24 Dohle Bodies Not Reportable 12/17/18 04:24 Pelger-Huet Anomaly Not Reportable 12/17/18 04:24 Mark Rods Not Reportable 12/17/18 04:24 Platelet Estimate Consistent w auto 12/17/18 04:24 Clumped Platelets Not Reportable 12/17/18 04:24 Plt Clumps, EDTA Not Reportable 12/17/18 04:24 Large Platelets Not Reportable 12/17/18 04:24 Giant Platelets Not Reportable 12/17/18 04:24 Platelet Satelliting Not Reportable 12/17/18 04:24 Plt Morphology Comment Not Reportable 12/17/18 04:24 RBC Morphology Not Reportable 12/17/18 04:24 Dimorphic RBCs Not Reportable 12/17/18 04:24 Polychromasia Not Reportable 12/17/18 04:24 Hypochromasia 1+ 12/17/18 04:24 Poikilocytosis Not Reportable 12/17/18 04:24 Anisocytosis 2+ 12/17/18 04:24 Microcytosis Not Reportable 12/17/18 04:24 Macrocytosis 1+ 12/17/18 04:24 Spherocytes Not Reportable 12/17/18 04:24 Pappenheimer Bodies Not Reportable 12/17/18 04:24 Sickle Cells Not Reportable 12/17/18 04:24 Target Cells Not Reportable 12/17/18 04:24 Tear Drop Cells Not Reportable 12/17/18 04:24 Ovalocytes 1+ 12/17/18 04:24 Helmet Cells Not Reportable 12/17/18 04:24 [place] Bodies Not Reportable 12/17/18 04:24 [place] Rings Not Reportable 12/17/18 04:24 [place] Cells Few 12/17/18 04:24 Bite Cells Not Reportable 12/17/18 04:24 Crenated Cell Not Reportable 12/17/18 04:24 Elliptocytes Few 12/17/18 04:24 Acanthocytes (Spur) Not Reportable 12/17/18 04:24 Rouleaux Not Reportable 12/17/18 04:24 Hemoglobin C Crystals Not Reportable 12/17/18 04:24 Schistocytes Not Reportable 12/17/18 04:24 Malaria parasites Not Reportable 12/17/18 04:24 Stef Bodies Not Reportable 12/17/18 04:24 Hem Pathologist Commnt No 12/17/18 04:24 PT 20.2 Sec. (12.2-14.9) H 12/12/18 08:00 INR 1.61 (0.87-1.13) H 12/12/18 08:00 APTT 30.9 Sec. (24.2-36.6) 12/10/18 10:40 POC ABG pH 7.325 (7.35-7.45) L 12/15/18 03:37 POC ABG pCO2 28.6 (35-45) L 12/15/18 03:37 POC ABG pO2 105 (80-105) 12/15/18 03:37 POC ABG HCO3 14.9 12/15/18 03:37 POC ABG Total CO2 16 12/15/18 03:37 POC ABG O2 Sat 98 12/15/18 03:37 POC ABG Base Excess -11 12/15/18 03:37 FiO2 25 % 12/15/18 03:37 Sodium 136 mmol/L (137-145) L 12/20/18 03:07 Potassium 4.1 mmol/L (3.6-5.0) 12/20/18 03:07 Chloride 105.5 mmol/L (98-107) 12/20/18 03:07 Carbon Dioxide 20 mmol/L (22-30) L 12/20/18 03:07 Anion Gap 15 mmol/L 12/20/18 03:07 BUN 79 mg/dL (7-17) H 12/20/18 03:07 Creatinine 2.1 mg/dL (0.7-1.2) H 12/20/18 03:07 Estimated GFR 27 ml/min 12/20/18 03:07 BUN/Creatinine Ratio 38 % 12/20/18 03:07 Glucose 141 mg/dL (65-100) H 12/20/18 03:07 POC Glucose 210 (70-105) H 12/20/18 05:20 Hemoglobin A1c 4.9 % (4-6) 12/10/18 04:38 Lactic Acid 3.00 mmol/L (0.7-2.0) H* 12/08/18 15:21 Calcium 7.5 mg/dL (8.4-10.2) L 12/20/18 03:07 Phosphorus 5.10 mg/dL (2.5-4.5) H 12/18/18 04:08 Total Bilirubin 1.60 mg/dL (0.1-1.2) H 12/09/18 05:36 AST 44 units/L (5-40) H 12/09/18 05:36 ALT 39 units/L (7-56) 12/09/18 05:36 Alkaline Phosphatase 113 units/L (35-129) 12/09/18 05:36 Total Creatine Kinase 258 units/L (30-135) H 12/08/18 13:40 C-Reactive Protein 19.60 mg/dL (0.00-1.30) H 12/09/18 18:18 Total Protein 5.2 g/dL (6.3-8.2) L 12/09/18 05:36 Albumin 2.4 g/dL (3.9-5) L 12/09/18 05:36 Albumin/Globulin Ratio 0.9 % 12/09/18 05:36 TSH 0.268 mlU/mL (0.270-4.200) L 12/09/18 15:54 Free T4 0.58 ng/dL (0.76-1.46) L 12/09/18 15:54 Urine Color Yolie (Yellow) 12/08/18 13:40 Urine Turbidity Cloudy (Clear) 12/08/18 13:40 Urine pH 7.0 (5.0-7.0) 12/08/18 13:40 Ur Specific [place] 1.015 (1.003-1.030) 12/08/18 13:40 Urine Protein 100 mg/dl mg/dL (Negative) 12/08/18 13:40 Urine Glucose (UA) Neg mg/dL (Negative) 12/08/18 13:40 Urine Ketones Neg mg/dL (Negative) 12/08/18 13:40 Urine Blood Sm (Negative) 12/08/18 13:40 Urine Nitrite Neg (Negative) 12/08/18 13:40 Urine Bilirubin Neg (Negative) 12/08/18 13:40 Urine Urobilinogen 2.0 mg/dL (<2.0) 12/08/18 13:40 Ur Leukocyte Esterase Mod (Negative) 12/08/18 13:40 Urine WBC (Auto) 157.0 /HPF (0.0-6.0) H 12/08/18 13:40 Urine RBC (Auto) 8.0 /HPF (0.0-6.0) 12/08/18 13:40 U Epithel Cells (Auto) 1.0 /HPF (0-13.0) 12/08/18 13:40 Urine Bacteria (Auto) 4+ /HPF (Negative) 12/08/18 13:40 Urine Mucus 2+ /HPF 12/08/18 13:40 Random Vancomycin 15.9 ug/mL (0-40.0) 12/18/18 04:08 JEFFREY Screen Negative (Negative) 12/09/18 15:54 Blood Type B POSITIVE 12/18/18 18:23 Antibody Screen Negative 12/08/18 13:40 Crossmatch See Detail 12/08/18 13:40 Nutrition/Malnutrition Assess - Dietary Evaluation Nutrition/Malnutrition Findings: Nutrition Notes Start: 12/09/18 12:11 Freq: Status: Active Protocol: Document 12/16/18 15:56 KENNY (Rec: 12/16/18 16:00 CAIGOR [email or web address]) Nutrition Notes Initial or Follow up Reassessment Current Diagnosis Acute Kidney Injury,Sepsis, Respiratory Failure Other Pertinent Diagnosis Acute encephalopathy, Pericardial effusion Current Diet TF - Glucerna 1.2 at 50ml/hr Labs/Tests BUN 81 Cr 1.6 BG 161 Pertinent Medications Reviewed Height 5 ft 1 in Weight 60.3 kg [place] Body Weight (kg) 47.72 BMI 25.1 Weight change and time frame Current wt obtained from bed scale Subjective/Other Information Pt tolerating TF at goal rate, per RN. Pt remains on vent support. Percent of energy/protein needs met: 100% energy and pro Burn Absent Trauma Absent #1 Nutrition Diagnosis Inadequate oral intake Diagnosis Progress(for reassessment Continues documentation) Is patient on ventilator? Yes Is Patient Ambulatory and/or Out of Bed No REE-([place]-St. Jeor-confined to bed) 1183.980 Calculation Used for Recommendations [place]-St Jeor Additional Notes Pro needs 1.2-2g/k-121g/ day Fluid needs 1ml/kcal Nutrition Intervention Nutrition Support: Glucerna 1.2 at 50ml/hr Flush with 100ml q4h Kcal 1,440 Protein (gm) 72 Fluid (mL) 966 Goal #1 TF tolerance Goal #2 TF to meet at least 80% energy and pro needs Follow-Up By: 12/23/18 Additional Comments F/U: stable TF, vent status, wt
[2018-12-20] MEDS: SODIUM CHLORIDE FLUSH SYRINGE 10 ML IV SCH (10:00)
--- NOTE | 2018-12-20 10:47 | Progress Note ---
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 - Blood culture 12/08/2018 no growth so far. - Lactate 4 on admission. - unable to do LP due to thrombocytopenia, and has received empiric treatment anyways. 2) UTI: UA wbc 157, LE mod, on cefepime. Urine culture was not sent. 3) Right otitis media / mastoiditis: Per grand-daughter, she had been c/o right ear pain and drainage week prior to admission. Patient was putting Neosporin and perhaps ear stephanie in the patient's ear. On physical exam, patient found to have purulent discharge from the right ear, and stephanie were removed by ED physician. There was probable perforation of the right sided tympanic membrane per ED physician. Got dexamethasone. 4) Acute encephalopathy: not better, from sepsis versus meningitis versus CVA. CT head extensive right MCA encephalomalcia, right mastoid opacities. 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 5) Acute respiratory failure: CXR showed small left pleural effusion. CT chest showed large pericardial effusion, LLL atelectasis v/s infiltrate and left pleural effusion. 6) ?GI bleed 7) Severe thrombocytopenia: ?from sepsis. 8) Large pericardial effusion: TTE EF>50, no echo evidence of tamponade 9) Penicillin allergy: tolerating cefepime 10) CKD: renally adjusted antibiotics Recommendations: - persistent sepsis, will continue IV Meropenem for now - will d/c vancomycin given no growth of MRSA on any of the cultures - overall extremely poor prognosis MD [facility] C: [phone] O: [phone] F: [phone] Subjective Date of service: 12/20/18 Principal diagnosis: coffee-ground drainage Interval history: remains unresponsive, on the ventilator. Objective - Exam Narrative Exam: Physical Exam: Constitutional: unresponsive, intubated Head, Ears, Nose: Normocephalic, atraumatic. nose normal. External ears normal. Eyes: Conjunctivae/corneas clear. No icterus. No ptosis. Neck: Supple, no meningeal signs Oral: intubated, tongue protruding, ET tube + Cardiovascular: S1, S2 normal. Respiratory: Good air entry, clear to auscultation bilaterally GI: Soft, non-tender; bowel sounds hypoactive. No peritoneal signs Musculoskeletal: No pedal edema, no cyanosis. Skin: No rash or abscess Hem/Lymphatic: No palpable cervical or supraclavicular nodes. No lymphangitis Psych: no agitation Neurological: unresponsive, intubated, on vent - Constitutional Vitals: Vital Signs Temp Pulse Resp BP Pulse Ox 97.2 F L 60 18 100/46 100 12/20/18 08:00 12/20/18 10:15 12/20/18 10:15 12/20/18 10:15 12/20/18 10:15 Temperature -Last 24 Hours Temperature 97.2 F Temperature 97.4 F Temperature 97.3 F Temperature 97.4 F Temperature 97.7 F Temperature 98.3 F - Labs CBC & Chem 7: 12/20/18 03:07 12/20/18 03:07 Labs: Abnormal lab results 12/19/18 12/19/18 12/19/18 Range/Units 12:43 18:12 23:55 WBC (4.5-11.0) K/mm3 RBC (3.65-5.03) M/mm3 Hgb (10.1-14.3) gm/dl Hct (30.3-42.9) % MCV (79-97) fl MCH (28-32) pg RDW (13.2-15.2) % Plt Count (140-440) K/mm3 Sodium (137-145) mmol/L Carbon Dioxide (22-30) mmol/L BUN (7-17) mg/dL Creatinine (0.7-1.2) mg/dL Glucose (65-100) mg/dL POC Glucose 141 H 227 H 174 H (70-105) Calcium (8.4-10.2) mg/dL 12/19/18 12/20/18 12/20/18 Range/Units Unknown 03:07 03:07 WBC 15.7 H (4.5-11.0) K/mm3 RBC 2.92 L (3.65-5.03) M/mm3 Hgb 7.2 L 7.1 L (10.1-14.3) gm/dl Hct 22.2 L 21.6 L (30.3-42.9) % MCV 74 L (79-97) fl MCH 24 L (28-32) pg RDW 24.3 H (13.2-15.2) % Plt Count 23 L (140-440) K/mm3 Sodium 136 L (137-145) mmol/L Carbon Dioxide 20 L (22-30) mmol/L BUN 79 H (7-17) mg/dL Creatinine 2.1 H (0.7-1.2) mg/dL Glucose 141 H (65-100) mg/dL POC Glucose (70-105) Calcium 7.5 L (8.4-10.2) mg/dL 12/20/18 Range/Units 05:20 WBC (4.5-11.0) K/mm3 RBC (3.65-5.03) M/mm3 Hgb (10.1-14.3) gm/dl Hct (30.3-42.9) % MCV (79-97) fl MCH (28-32) pg RDW (13.2-15.2) % Plt Count (140-440) K/mm3 Sodium (137-145) mmol/L Carbon Dioxide (22-30) mmol/L BUN (7-17) mg/dL Creatinine (0.7-1.2) mg/dL Glucose (65-100) mg/dL POC Glucose 210 H (70-105) Calcium (8.4-10.2) mg/dL - Imaging and cardiology Chest x-ray: report reviewed, image reviewed (pacemaker +, No pneumonia seen.)
[2018-12-20] MEDS: HumaLOG SUB-Q SCH ×2 (13:18→18:47)
[2018-12-21] MEDS: DUONEB *Not for PRN Use IH SCH ×4 (02:20→19:36)
[2018-12-21] MEDS: HumaLOG SUB-Q SCH ×3 (07:37→17:46)
[2018-12-21 08:13] LABS: Calcium 7.3 mg/dL (8.4-10.2)
[2018-12-21] MEDS: PROAMATINE PO SCH ×3 (09:40→16:51)
[2018-12-21] MEDS: PREVACID SOLUTAB FEEDTUBE SCH (09:40)
[2018-12-21] MEDS: MERREM 1,000 MG in NACL 0.9% 100 ML IV SCH (09:40)
[2018-12-21] MEDS: SODIUM CHLORIDE FLUSH SYRINGE 10 ML IV SCH (09:41)
[2018-12-21 09:47] LABS: Hematocrit 20.7 % (30.3-42.9); Hemoglobin 6.9 gm/dl (10.1-14.3); Mean Corpuscular HGB Conc 33 % (30-34); Mean Corpuscular Volume 73 fl (79-97); Red Blood Count 2.83 M/mm3 (3.65-5.03); Red Cell Distribution Width 23.9 % (13.2-15.2)
[2018-12-21 09:50] LABS: Platelet Count 11 K/mm3 (140-440)
--- NOTE | 2018-12-21 09:54 | Progress Note ---
Assessment and Plan - Patient Problems (1) Acute kidney failure with tubular necrosis Current Visit: Yes Status: Acute Plan to address problem: Kidney function is worsening. Patient has peripheral edema. Positive fluid balance but incomplete collection of urine output. Follow-up electrolytes and renal function (2) Sepsis Current Visit: Yes Status: Acute Qualifiers: Qualified Code(s): A41.9 - Sepsis, unspecified organism Plan to address problem: Sepsis secondary to urinary tract infections versus right otitis media/m astoiditis versus meningitis/encephalitis. Unable to get an LP due to the thrombocytopenia. Leukocytosis is worsening and is concerning. Thrombocytopenia is also worsening. Continue antibiotics per infectious disease. Poor prognosis (3) Acidosis Current Visit: Yes Status: Acute Plan to address problem: Bicarbonate is improving. Continue supplements. (4) Acute encephalopathy Current Visit: Yes Status: Acute Plan to address problem: Toxic/metabolic encephalopathy. Still unresponsive. Continue to monitor mental status. (5) Acute post-hemorrhagic anemia Current Visit: Yes Status: Acute Plan to address problem: Follow-up hemoglobin (6) Acute respiratory failure with hypoxia Current Visit: Yes Status: Acute Plan to address problem: Continue ventilator management by pulmonary (7) Pericardial effusion without cardiac tamponade Current Visit: Yes Status: Acute Plan to address problem: Follow-up by layout artist Subjective Date of service: 12/21/18 Principal diagnosis: coffee-ground drainage Interval history: Patient seen lying in bed. No family at the bedside. Patient is still unresponsive. Objective - Exam Narrative Exam: Elderly -Citizen Of [place] female lying in bed intubated on the ventilator AC 350/18/25% P 6 HEENT: NCAT, endotracheal tube intact, tongue protruding Neck: Supple, no venous distention CVS: S1S2 RRR with no murmur, rub or gallop Chest: Clear to auscultation Abdomen: Protuberant, soft, nontender, no organomegaly, bowel sounds are present Extremities: 2+ edema Skin is warm and dry Genitourinary deferred Neuro: Does not open eyes, not following commands - Vital Signs Vital signs: Vital Signs - 12hr 12/20/18 12/20/18 12/20/18 22:00 22:15 22:30 Temperature Pulse Rate 60 60 60 Pulse Rate [ Anterior Bilateral Throughout] Pulse Rate [ Apical] Respiratory 18 18 18 Rate Respiratory Rate [Anterior Bilateral Throughout] Blood Pressure 119/52 120/45 124/47 O2 Sat by Pulse 100 100 100 Oximetry 12/20/18 12/20/18 12/20/18 22:45 23:00 23:15 Temperature Pulse Rate 60 60 60 Pulse Rate [ Anterior Bilateral Throughout] Pulse Rate [ Apical] Respiratory 18 18 18 Rate Respiratory Rate [Anterior Bilateral Throughout] Blood Pressure 126/47 133/48 142/47 O2 Sat by Pulse 100 100 100 Oximetry 12/20/18 12/20/18 12/20/18 23:30 23:33 23:45 Temperature Pulse Rate 60 63 60 Pulse Rate [ Anterior Bilateral Throughout] Pulse Rate [ Apical] Respiratory 18 18 Rate Respiratory Rate [Anterior Bilateral Throughout] Blood Pressure 137/44 125/45 133/43 O2 Sat by Pulse 100 100 100 Oximetry 12/21/18 12/21/18 12/21/18 00:00 00:15 00:31 Temperature 98.6 F Pulse Rate 63 61 62 Pulse Rate [ Anterior Bilateral Throughout] Pulse Rate [ 65 Apical] Respiratory 18 17 16 Rate Respiratory Rate [Anterior Bilateral Throughout] Blood Pressure 129/54 133/43 114/43 O2 Sat by Pulse 100 100 100 Oximetry 12/21/18 12/21/18 12/21/18 00:45 01:01 01:15 Temperature Pulse Rate 60 61 62 Pulse Rate [ Anterior Bilateral Throughout] Pulse Rate [ Apical] Respiratory 18 18 18 Rate Respiratory Rate [Anterior Bilateral Throughout] Blood Pressure 120/42 138/34 138/39 O2 Sat by Pulse 100 100 100 Oximetry 12/21/18 12/21/18 12/21/18 01:30 01:45 02:00 Temperature Pulse Rate 60 60 62 Pulse Rate [ Anterior Bilateral Throughout] Pulse Rate [ Apical] Respiratory 18 18 18 Rate Respiratory Rate [Anterior Bilateral Throughout] Blood Pressure 134/37 134/37 122/45 O2 Sat by Pulse 100 100 100 Oximetry 12/21/18 12/21/18 12/21/18 02:15 02:20 02:31 Temperature Pulse Rate 60 60 Pulse Rate [ 62 Anterior Bilateral Throughout] Pulse Rate [ Apical] Respiratory 18 17 Rate Respiratory 18 Rate [Anterior Bilateral Throughout] Blood Pressure 122/45 119/34 O2 Sat by Pulse 100 100 Oximetry 12/21/18 12/21/18 12/21/18 02:35 02:45 03:00 Temperature Pulse Rate 62 61 Pulse Rate [ 64 Anterior Bilateral Throughout] Pulse Rate [ Apical] Respiratory 18 18 Rate Respiratory 18 Rate [Anterior Bilateral Throughout] Blood Pressure 119/34 121/41 O2 Sat by Pulse 100 100 Oximetry 12/21/18 12/21/18 12/21/18 03:15 03:30 03:45 Temperature Pulse Rate 60 63 62 Pulse Rate [ Anterior Bilateral Throughout] Pulse Rate [ Apical] Respiratory 18 18 18 Rate Respiratory Rate [Anterior Bilateral Throughout] Blood Pressure 121/41 128/38 121/34 O2 Sat by Pulse 100 100 100 Oximetry 12/21/18 12/21/18 12/21/18 04:00 04:01 04:15 Temperature 94.5 F L Pulse Rate 66 64 62 Pulse Rate [ Anterior Bilateral Throughout] Pulse Rate [ 64 Apical] Respiratory 18 18 18 Rate Respiratory Rate [Anterior Bilateral Throughout] Blood Pressure 120/36 127/39 118/45 O2 Sat by Pulse 100 100 100 Oximetry 12/21/18 12/21/18 12/21/18 04:30 04:45 05:00 Temperature Pulse Rate 60 61 60 Pulse Rate [ Anterior Bilateral Throughout] Pulse Rate [ Apical] Respiratory 18 18 16 Rate Respiratory Rate [Anterior Bilateral Throughout] Blood Pressure 120/36 120/36 103/33 O2 Sat by Pulse 100 100 100 Oximetry 12/21/18 12/21/18 12/21/18 05:15 05:31 05:45 Temperature Pulse Rate 60 60 60 Pulse Rate [ Anterior Bilateral Throughout] Pulse Rate [ Apical] Respiratory 18 18 18 Rate Respiratory Rate [Anterior Bilateral Throughout] Blood Pressure 103/33 123/38 123/38 O2 Sat by Pulse 100 100 99 Oximetry 12/21/18 12/21/18 12/21/18 06:01 06:15 06:31 Temperature Pulse Rate 62 67 67 Pulse Rate [ Anterior Bilateral Throughout] Pulse Rate [ Apical] Respiratory 18 18 14 Rate Respiratory Rate [Anterior Bilateral Throughout] Blood Pressure 110/28 110/28 194/43 O2 Sat by Pulse 100 100 99 Oximetry 12/21/18 12/21/18 12/21/18 06:45 07:01 07:15 Temperature Pulse Rate 63 60 60 Pulse Rate [ Anterior Bilateral Throughout] Pulse Rate [ Apical] Respiratory 17 18 18 Rate Respiratory Rate [Anterior Bilateral Throughout] Blood Pressure 143/32 118/20 126/24 O2 Sat by Pulse 98 99 100 Oximetry 12/21/18 12/21/18 12/21/18 07:31 07:45 08:00 Temperature 92.8 F L Pulse Rate 61 61 Pulse Rate [ Anterior Bilateral Throughout] Pulse Rate [ Apical] Respiratory 18 17 Rate Respiratory Rate [Anterior Bilateral Throughout] Blood Pressure 114/24 114/24 O2 Sat by Pulse 100 99 Oximetry 12/21/18 12/21/18 12/21/18 08:01 08:15 08:30 Temperature Pulse Rate 64 62 60 Pulse Rate [ Anterior Bilateral Throughout] Pulse Rate [ Apical] Respiratory 18 18 18 Rate Respiratory Rate [Anterior Bilateral Throughout] Blood Pressure 93/36 93/36 108/25 O2 Sat by Pulse 100 99 99 Oximetry 12/21/18 12/21/18 12/21/18 08:45 09:00 09:15 Temperature Pulse Rate 64 60 61 Pulse Rate [ Anterior Bilateral Throughout] Pulse Rate [ Apical] Respiratory 18 15 18 Rate Respiratory Rate [Anterior Bilateral Throughout] Blood Pressure 112/35 103/30 103/30 O2 Sat by Pulse 99 100 97 Oximetry - Lab 12/21/18 07:19 12/21/18 07:19 Most recent lab results Calcium 7.3 mg/dL (8.4-10.2) L 12/21/18 07:19 Phosphorus 5.10 mg/dL (2.5-4.5) H 12/18/18 04:08 Medications & Allergies - Medications Allergies/Adverse Reactions: Allergies Penicillins Allergy (Verified 12/08/18 13:13) Hives Home Medications: Home Medications Medication Instructions Recorded Confirmed Last Taken Type ALBUTEROL Inhaler (OR & NICU) 2 puff IH QID PRN #1 inhalation 12/21/16 12/08/18 Unknown Rx [Proair] Albuterol Sulfate [Albuterol 0.63% 0.63 mg IH TID PRN #90 ml 12/21/16 12/08/18 Unknown Rx NEBS] Amlodipine Besylate [Norvasc] 10 mg PO DAILY #90 tablet 12/21/16 12/08/18 Unknown Rx AtorvaSTATin [Lipitor] 20 mg PO QHS #90 tablet 12/21/16 12/08/18 Unknown Rx Hydralazine HCl [Apresoline TAB] 50 mg PO TID #90 tablet 12/21/16 12/08/18 Unknown Rx Metoprolol [Lopressor TAB] 25 mg PO BID #90 tablet 12/21/16 12/08/18 Unknown Rx Promethazine /Codeine 5 ml PO Q6H PRN #100 ml 12/21/16 12/08/18 Unknown Rx [Phenergan/Codeine 6.25-10 mg/5 ml] Active Medications: Generic Name Dose Route Start Last Admin Trade Name Freq PRN Reason Stop Dose Admin Acetaminophen 650 mg 12/09/18 01:00 12/09/18 10:00 Tylenol AR 650 mg Q4H PRN Administration Pain MILD(1-3)/Fever >100.5/TURNER Albuterol 2.5 mg 12/09/18 00:31 Proventil IH Q4HRT PRN Shortness Of Breath Albuterol/Ipratropium 1 ampul 12/09/18 02:00 12/21/18 02:20 Duoneb *Not For Prn Use* IH 1 ampul Q6HRT KOLE Administration Lipase/Protease/Amylase 1 each 12/09/18 04:05 Pancreazbarbara Pena 10,500 Unit FEEDTUBE PRN PRN For Clogged Feeding Tube Hydrophilic Ointment 1 applic 12/14/18 13:00 Vaseline Lip Therapy TP DIRECT PRN Dry tongue Sodium Bicarbonate 75 meq/ 1,075 mls @ 75 mls/hr 12/17/18 18:00 12/20/18 03:04 Dextrose IV 75 mls/hr DIRECT KOLE Administration Norepinephrine 4 mg in 250 mls @ 7.5 mls/hr 12/18/18 18:00 12/19/18 18:00 Levophed Drip 4 Mg/Ns 250 Ml IV 0 mcg/min TITR KOLE 0 mls/hr Titration Protocol 2 MCG/MIN Meropenem 1,000 mg/ Sodium 100 mls @ 100 mls/hr 12/20/18 10:00 12/21/18 09:40 Chloride IV 100 mls/hr Q24HR KOLE Administration Protocol Insulin Human Lispro 0 unit 12/11/18 12:00 12/21/18 07:37 Humalog SUB-Q 3 unit Q6HR KOLE Administration Protocol Lansoprazole 30 mg 12/12/18 10:00 12/21/18 09:40 Prevacid Solutab FEEDTUBE 30 mg BID KOLE Administration Midodrine 10 mg 12/18/18 19:01 12/21/18 09:40 Proamatine PO 10 mg TID@0800,1200,1600 KOLE Administration Multi-Ingred Cream/Lotion/Oil/Oint 1 applic 12/08/18 13:31 Artificial Tears Ophth Oint OU Q4HR PRN Dry Eye(s) Ondansetron HCl 4 mg 12/09/18 00:31 Zofran IV Q8H PRN Nausea And Vomiting Simple Syrup 15 ml 12/09/18 04:05 Simple Syrup FEEDTUBE PRN PRN Hypoglycemia Simple Syrup 30 ml 12/09/18 04:05 Simple Syrup FEEDTUBE PRN PRN Hypoglycemia Sodium Bicarbonate 325 mg 12/09/18 04:05 Sodium Bicarbonate FEEDTUBE PRN PRN For Clogged Feeding Tube Sodium Chloride 10 ml 12/09/18 10:00 12/21/18 09:41 Sodium Chloride Flush Syringe 10 Ml IV 10 ml BID KOLE Administration Sodium Chloride 10 ml 12/09/18 00:31 12/17/18 10:47 Sodium Chloride Flush Syringe 10 Ml IV 10 ml PRN PRN Administration LINE FLUSH
--- NOTE | 2018-12-21 09:55 | Progress Note ---
Assessment and Plan Assessment and plan: Acute respiratory failure, intubated Likely from underlying severe sepsis, encephalopathy and pleural effusion Jute Bag Sewer/Pulm consulted Continue nebs, continue antibiotics CXR showed small left pleural effusion. CT chest showed large pericardial effusion, LLL atelectasis v/s infiltrate and left pleural effusion. Unable to wean off, may need trach and PEG Acute encephalopathy: - likely from sepsis alone versus possible meningitis vs seizure. CT head extensive right MCA encephalomalcia, right mastoid opacities. neurology ordered EEG. 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 - when stable need LP for CSF cell count, diff, protein, glucose, culture, Gram stain, VDRL, HSV and Crypto ag, LP ordered by ID - continue cefepime, vancomycin renally adjusted for now Severe Sepsis due to UTI , right mastoiditis, aspiration PNA Blood cultures negative, right ear Cx negative Started on Merrem Shock, hypotension did not respond to iv bolus so was started on Levophed, BP improved so off levophed Leukocytosis Hypotension/septic shock, resolved weaned off Levophed, BP now stable Left lower lobe infiltrate, poss pneumonia - Treat with antibiotic for now /Large Pericardial effusion. TTE EF>50, no echo evidence of tamponade. Cardiology consulted, following and recommended medical management for now Coffee ground contents from NG aspirate/ Acute GI bleed cont Protonix, Consulted GI- H/h was 6.8 on admission but now stable after 2 units of PRBc transfusion cont to Monitor H/H, no plan for EGD now MARYANN on CKD 3 baseline Cr around 1.2-1.5mg/dl Likely due to underlying sepsis Monitor BMP, Consulted nephrology- no indication for HD now /Acute on chronic anemia has h/o anemia requiring previous blood transfusions could be multifactorial (GI bleed and CKD), s/p 2 Units PRBC transfused on 12/08/18 Transfused 1 Unit PRBC 12/20 for Hgb 7.1 Will transfuse additional 1 unit PRBC today for hgb 6.9 Thrombocytopenia Transfused 2 Units platelets on 12/19/18 Plt 11. Will Transfuse 2 units platelet phresis today / h/o Hypertension - BP now stable /Diabetes type 2, SSI as needed /FEN, on TF, not tolerating, Full code status. Poor prognosis The high probability of a clinically significant, sudden or life threatening deterioration of the [4] system(s) required my full and direct attention, intervention and personal management. The aggregate critical care time was [34] minutes. 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 In the ED, She was found in acute respiratory failure, requiring bag valve mask ventilation and hypotensive. Noted coffee- ground drainage from OG tube and patient also found to have purulent discharge from the right ear, and stephanie are removed by ED physician. Patient was intubated in the ER and admitted to the ICU for further evaluation and management. Blood culture 12/08/2018 no growth so far. CT head extensive right MCA encephalomalcia, right mastoid opacities. CXR showed small left pleural effusion. CT chest showed large pericardial effusion, LLL atelectasis v/s infiltrate and left pleural effusion. s/p 2 units PRBc transfusion on 12/08/18. renal consulted for worsening renal function. Unable to wean off, patient may need trach and PEG. Patient became hypotensive 12/18, was placed on Levophed, now off Levophed Unresponsive hypothermia T=92.4 this [facility] Physical - Physical exam Narrative exam: GEN: Intubated, On vent, HEENT: Normocephalic, atraumatic, Neck: supple, No JVD Heart:s1 and S2 reg, no murmurs Lungs: Clear to auscultation bilaterally, no wheeze Abd:soft, non tender, non distended, normal bowel sounds Ext: No edema, no clubbing, no cyanosis Neuro: Intubated, Unresponsive, does not follow commands Skin:No rash - Constitutional Vitals: Temp Pulse Resp BP Pulse Ox 92.8 F L 61 18 103/30 97 12/21/18 08:00 12/21/18 09:15 12/21/18 09:15 12/21/18 09:15 12/21/18 09:15 Results - Labs CBC & Chem 7: 12/20/18 03:07 12/21/18 07:19 Labs: Laboratory Last Values WBC 15.7 K/mm3 (4.5-11.0) H 12/20/18 03:07 RBC 2.92 M/mm3 (3.65-5.03) L 12/20/18 03:07 Hgb 7.1 gm/dl (10.1-14.3) L 12/20/18 03:07 Hct 21.6 % (30.3-42.9) L 12/20/18 03:07 MCV 74 fl (79-97) L 12/20/18 03:07 MCH 24 pg (28-32) L 12/20/18 03:07 MCHC 33 % (30-34) 12/20/18 03:07 RDW 24.3 % (13.2-15.2) H 12/20/18 03:07 Plt Count 23 K/mm3 (140-440) L 12/20/18 03:07 Lymph % (Auto) 5.6 % (13.4-35.0) L 12/10/18 04:38 [place] % (Auto) 4.2 % (0.0-7.3) 12/10/18 04:38 Eos % (Auto) 0.3 % (0.0-4.3) 12/10/18 04:38 Baso % (Auto) 0.1 % (0.0-1.8) 12/10/18 04:38 Lymph # 0.6 K/mm3 (1.2-5.4) L 12/10/18 04:38 [place] # 0.5 K/mm3 (0.0-0.8) 12/10/18 04:38 Eos # 0.0 K/mm3 (0.0-0.4) 12/10/18 04:38 Baso # 0.0 K/mm3 (0.0-0.1) 12/10/18 04:38 Add Manual Diff Complete 12/17/18 04:24 Total Counted 100 12/17/18 04:24 Seg Neutrophils % Ecologist 12/17/18 04:24 Seg Neuts % (Manual) 68.0 % (40.0-70.0) 12/17/18 04:24 Band Neutrophils % 22.0 % 12/17/18 04:24 Lymphocytes % (Manual) 6.0 % (13.4-35.0) L 12/17/18 04:24 Reactive Lymphs % (Man) 0 % 12/17/18 04:24 Monocytes % (Manual) 4.0 % (0.0-7.3) 12/17/18 04:24 Eosinophils % (Manual) 0 % (0.0-4.3) 12/17/18 04:24 Basophils % (Manual) 0 % (0.0-1.8) 12/17/18 04:24 Metamyelocytes % 0 % 12/17/18 04:24 Myelocytes % 0 % 12/17/18 04:24 Promyelocytes % 0 % 12/17/18 04:24 Blast Cells % 0 % 12/17/18 04:24 Nucleated RBC % Not Reportable 12/17/18 04:24 Seg Neutrophils # 10.3 K/mm3 (1.8-7.7) H 12/10/18 04:38 Seg Neutrophils # Man 13.1 K/mm3 (1.8-7.7) H 12/17/18 04:24 Band Neutrophils # 4.2 K/mm3 12/17/18 04:24 Lymphocytes # (Manual) 1.2 K/mm3 (1.2-5.4) 12/17/18 04:24 Abs React Lymphs (Man) 0.0 K/mm3 12/17/18 04:24 Monocytes # (Manual) 0.8 K/mm3 (0.0-0.8) 12/17/18 04:24 Eosinophils # (Manual) 0.0 K/mm3 (0.0-0.4) 12/17/18 04:24 Basophils # (Manual) 0.0 K/mm3 (0.0-0.1) 12/17/18 04:24 Metamyelocytes # 0.0 K/mm3 12/17/18 04:24 Myelocytes # 0.0 K/mm3 12/17/18 04:24 Promyelocytes # 0.0 K/mm3 12/17/18 04:24 Blast Cells # 0.0 K/mm3 12/17/18 04:24 WBC Morphology Not Reportable 12/17/18 04:24 Hypersegmented Neuts Not Reportable 12/17/18 04:24 Hyposegmented Neuts Not Reportable 12/17/18 04:24 Hypogranular Neuts Not Reportable 12/17/18 04:24 Smudge Cells Not Reportable 12/17/18 04:24 Toxic Granulation Not Reportable 12/17/18 04:24 Toxic Vacuolation Not Reportable 12/17/18 04:24 Dohle Bodies Not Reportable 12/17/18 04:24 Pelger-Huet Anomaly Not Reportable 12/17/18 04:24 Mark Rods Not Reportable 12/17/18 04:24 Platelet Estimate Consistent w auto 12/17/18 04:24 Clumped Platelets Not Reportable 12/17/18 04:24 Plt Clumps, EDTA Not Reportable 12/17/18 04:24 Large Platelets Not Reportable 12/17/18 04:24 Giant Platelets Not Reportable 12/17/18 04:24 Platelet Satelliting Not Reportable 12/17/18 04:24 Plt Morphology Comment Not Reportable 12/17/18 04:24 RBC Morphology Not Reportable 12/17/18 04:24 Dimorphic RBCs Not Reportable 12/17/18 04:24 Polychromasia Not Reportable 12/17/18 04:24 Hypochromasia 1+ 12/17/18 04:24 Poikilocytosis Not Reportable 12/17/18 04:24 Anisocytosis 2+ 12/17/18 04:24 Microcytosis Not Reportable 12/17/18 04:24 Macrocytosis 1+ 12/17/18 04:24 Spherocytes Not Reportable 12/17/18 04:24 Pappenheimer Bodies Not Reportable 12/17/18 04:24 Sickle Cells Not Reportable 12/17/18 04:24 Target Cells Not Reportable 12/17/18 04:24 Tear Drop Cells Not Reportable 12/17/18 04:24 Ovalocytes 1+ 12/17/18 04:24 Helmet Cells Not Reportable 12/17/18 04:24 [place] Bodies Not Reportable 12/17/18 04:24 [place] Rings Not Reportable 12/17/18 04:24 [place] Cells Few 12/17/18 04:24 Bite Cells Not Reportable 12/17/18 04:24 Crenated Cell Not Reportable 12/17/18 04:24 Elliptocytes Few 12/17/18 04:24 Acanthocytes (Spur) Not Reportable 12/17/18 04:24 Rouleaux Not Reportable 12/17/18 04:24 Hemoglobin C Crystals Not Reportable 12/17/18 04:24 Schistocytes Not Reportable 12/17/18 04:24 Malaria parasites Not Reportable 12/17/18 04:24 Stef Bodies Not Reportable 12/17/18 04:24 Hem Pathologist Commnt No 12/17/18 04:24 PT 20.2 Sec. (12.2-14.9) H 12/12/18 08:00 INR 1.61 (0.87-1.13) H 12/12/18 08:00 APTT 30.9 Sec. (24.2-36.6) 12/10/18 10:40 POC ABG pH 7.325 (7.35-7.45) L 12/15/18 03:37 POC ABG pCO2 28.6 (35-45) L 12/15/18 03:37 POC ABG pO2 105 (80-105) 12/15/18 03:37 POC ABG HCO3 14.9 12/15/18 03:37 POC ABG Total CO2 16 12/15/18 03:37 POC ABG O2 Sat 98 12/15/18 03:37 POC ABG Base Excess -11 12/15/18 03:37 FiO2 25 % 12/15/18 03:37 Sodium 135 mmol/L (137-145) L 12/21/18 07:19 Potassium 4.0 mmol/L (3.6-5.0) 12/21/18 07:19 Chloride 103.3 mmol/L (98-107) 12/21/18 07:19 Carbon Dioxide 21 mmol/L (22-30) L 12/21/18 07:19 Anion Gap 15 mmol/L 12/21/18 07:19 BUN 78 mg/dL (7-17) H 12/21/18 07:19 Creatinine 2.3 mg/dL (0.7-1.2) H 12/21/18 07:19 Estimated GFR 24 ml/min 12/21/18 07:19 BUN/Creatinine Ratio 34 % 12/21/18 07:19 Glucose 143 mg/dL (65-100) H 12/21/18 07:19 POC Glucose 165 (70-105) H 12/21/18 05:05 Hemoglobin A1c 4.9 % (4-6) 12/10/18 04:38 Lactic Acid 3.00 mmol/L (0.7-2.0) H* 12/08/18 15:21 Calcium 7.3 mg/dL (8.4-10.2) L 12/21/18 07:19 Phosphorus 5.10 mg/dL (2.5-4.5) H 12/18/18 04:08 Total Bilirubin 1.60 mg/dL (0.1-1.2) H 12/09/18 05:36 AST 44 units/L (5-40) H 12/09/18 05:36 ALT 39 units/L (7-56) 12/09/18 05:36 Alkaline Phosphatase 113 units/L (35-129) 12/09/18 05:36 Total Creatine Kinase 258 units/L (30-135) H 12/08/18 13:40 C-Reactive Protein 19.60 mg/dL (0.00-1.30) H 12/09/18 18:18 Total Protein 5.2 g/dL (6.3-8.2) L 12/09/18 05:36 Albumin 2.4 g/dL (3.9-5) L 12/09/18 05:36 Albumin/Globulin Ratio 0.9 % 12/09/18 05:36 TSH 0.268 mlU/mL (0.270-4.200) L 12/09/18 15:54 Free T4 0.58 ng/dL (0.76-1.46) L 12/09/18 15:54 Urine Color Yolie (Yellow) 12/08/18 13:40 Urine Turbidity Cloudy (Clear) 12/08/18 13:40 Urine pH 7.0 (5.0-7.0) 12/08/18 13:40 Ur Specific [place] 1.015 (1.003-1.030) 12/08/18 13:40 Urine Protein 100 mg/dl mg/dL (Negative) 12/08/18 13:40 Urine Glucose (UA) Neg mg/dL (Negative) 12/08/18 13:40 Urine Ketones Neg mg/dL (Negative) 12/08/18 13:40 Urine Blood Sm (Negative) 12/08/18 13:40 Urine Nitrite Neg (Negative) 12/08/18 13:40 Urine Bilirubin Neg (Negative) 12/08/18 13:40 Urine Urobilinogen 2.0 mg/dL (<2.0) 12/08/18 13:40 Ur Leukocyte Esterase Mod (Negative) 12/08/18 13:40 Urine WBC (Auto) 157.0 /HPF (0.0-6.0) H 12/08/18 13:40 Urine RBC (Auto) 8.0 /HPF (0.0-6.0) 12/08/18 13:40 U Epithel Cells (Auto) 1.0 /HPF (0-13.0) 12/08/18 13:40 Urine Bacteria (Auto) 4+ /HPF (Negative) 12/08/18 13:40 Urine Mucus 2+ /HPF 12/08/18 13:40 Random Vancomycin 15.9 ug/mL (0-40.0) 12/18/18 04:08 JEFFREY Screen Negative (Negative) 12/09/18 15:54 Blood Type B POSITIVE 12/20/18 11:00 Antibody Screen Negative 12/20/18 11:00 Crossmatch See Detail 12/20/18 11:00 Nutrition/Malnutrition Assess - Dietary Evaluation Nutrition/Malnutrition Findings: Nutrition Notes Start: 12/09/18 12:11 Freq: Status: Active Protocol: Document 12/16/18 15:56 KENNY (Rec: 12/16/18 16:00 KENNY SRW- [email or web address]) Nutrition Notes Initial or Follow up Reassessment Current Diagnosis Acute Kidney Injury,Sepsis, Respiratory Failure Other Pertinent Diagnosis Acute encephalopathy, Pericardial effusion Current Diet TF - Glucerna 1.2 at 50ml/hr Labs/Tests BUN 81 Cr 1.6 BG 161 Pertinent Medications Reviewed Height 5 ft 1 in Weight 60.3 kg [place] Body Weight (kg) 47.72 BMI 25.1 Weight change and time frame Current wt obtained from bed scale Subjective/Other Information Pt tolerating TF at goal rate, per RN. Pt remains on vent support. Percent of energy/protein needs met: 100% energy and pro Burn Absent Trauma Absent #1 Nutrition Diagnosis Inadequate oral intake Diagnosis Progress(for reassessment Continues documentation) Is patient on ventilator? Yes Is Patient Ambulatory and/or Out of Bed No REE-([place]-confined to bed) 1183.980 Calculation Used for Recommendations [place] Additional Notes Pro needs 1.2-2g/k-121g/ day Fluid needs 1ml/kcal Nutrition Intervention Nutrition Support: Glucerna 1.2 at 50ml/hr Flush with 100ml q4h Kcal 1,440 Protein (gm) 72 Fluid (mL) 966 Goal #1 TF tolerance Goal #2 TF to meet at least 80% energy and pro needs Follow-Up By: 12/23/18 Additional Comments F/U: stable TF, vent status, wt
[2018-12-21] MEDS ORDERED: NACL 0.9% 500 ML 500 ML IV ONE (11:00)
--- NOTE | 2018-12-21 11:31 | Progress Note ---
Assessment and Plan 88 y/o female with acute respiratory failure, altered mental state, presumptive acute renal failure and hypotension with thrombocytopenia and dirty urine analysis. Update: I have now called the number [phone] twice in an attempt to speak with Maxi Pritchett as this is the number that was provided by the granddaughter who would be this person's daughter. No answer twice and when the voicemail comes up, Maxi Pritchett is not the name that is used to identify the person and the mailbox is full. Also, per the CM the granddaughter states that she is the POA but has not provided us with any paper work to confirm this. Overall prognosis remains extremely poor. Patient is at high risk for spontaneous bleed as well as cardiac arrest given current organ failures. She also has not woken up in the last 2 weeks. 1. Monitor BP 2. Continue feeds at low dose, will start titrating today. 3. Remains in renal failure with Cr slightly worse again today. 4. HgB down to 7. If drops below this would transfuse, especially with hypotension. Hanging on at 7 but if pressors are needed again, will suggest transfusion. Also with worsening renal failure, will likely need something like epogen if that is warranted. 5. Need family meeting soon. Hopeful to find someone who can place us in contact with the sons. Overall prognosis is extremely poor. Patient does not appear to be a candidate for HD and with persistent thrombocytopenia she is high risk for spontaneous bleed CCT 31 minutes. Subjective Date of service: 12/21/18 Principal diagnosis: coffee-ground drainage Interval history: No acute events. Platelets continue to drop. HgB is 6.9. Called son based on number provided by daughter, no answer and when the voicemail answered, the person did not state there name was Maxi. Patient remains unresponsive. Off pressors. Hypothermic this am. Objective Vital Signs - 12hr 12/20/18 12/20/18 12/20/18 23:30 23:33 23:45 Temperature Pulse Rate 60 63 60 Pulse Rate [ Anterior Bilateral Throughout] Pulse Rate [ Apical] Respiratory 18 18 Rate Respiratory Rate [Anterior Bilateral Throughout] Blood Pressure 137/44 125/45 133/43 O2 Sat by Pulse 100 100 100 Oximetry 12/21/18 12/21/18 12/21/18 00:00 00:15 00:31 Temperature 98.6 F Pulse Rate 63 61 62 Pulse Rate [ Anterior Bilateral Throughout] Pulse Rate [ 65 Apical] Respiratory 18 17 16 Rate Respiratory Rate [Anterior Bilateral Throughout] Blood Pressure 129/54 133/43 114/43 O2 Sat by Pulse 100 100 100 Oximetry 12/21/18 12/21/18 12/21/18 00:45 01:01 01:15 Temperature Pulse Rate 60 61 62 Pulse Rate [ Anterior Bilateral Throughout] Pulse Rate [ Apical] Respiratory 18 18 18 Rate Respiratory Rate [Anterior Bilateral Throughout] Blood Pressure 120/42 138/34 138/39 O2 Sat by Pulse 100 100 100 Oximetry 12/21/18 12/21/18 12/21/18 01:30 01:45 02:00 Temperature Pulse Rate 60 60 62 Pulse Rate [ Anterior Bilateral Throughout] Pulse Rate [ Apical] Respiratory 18 18 18 Rate Respiratory Rate [Anterior Bilateral Throughout] Blood Pressure 134/37 134/37 122/45 O2 Sat by Pulse 100 100 100 Oximetry 12/21/18 12/21/18 12/21/18 02:15 02:20 02:31 Temperature Pulse Rate 60 60 Pulse Rate [ 62 Anterior Bilateral Throughout] Pulse Rate [ Apical] Respiratory 18 17 Rate Respiratory 18 Rate [Anterior Bilateral Throughout] Blood Pressure 122/45 119/34 O2 Sat by Pulse 100 100 Oximetry 12/21/18 12/21/18 12/21/18 02:35 02:45 03:00 Temperature Pulse Rate 62 61 Pulse Rate [ 64 Anterior Bilateral Throughout] Pulse Rate [ Apical] Respiratory 18 18 Rate Respiratory 18 Rate [Anterior Bilateral Throughout] Blood Pressure 119/34 121/41 O2 Sat by Pulse 100 100 Oximetry 12/21/18 12/21/18 12/21/18 03:15 03:30 03:45 Temperature Pulse Rate 60 63 62 Pulse Rate [ Anterior Bilateral Throughout] Pulse Rate [ Apical] Respiratory 18 18 18 Rate Respiratory Rate [Anterior Bilateral Throughout] Blood Pressure 121/41 128/38 121/34 O2 Sat by Pulse 100 100 100 Oximetry 12/21/18 12/21/18 12/21/18 04:00 04:01 04:15 Temperature 94.5 F L Pulse Rate 66 64 62 Pulse Rate [ Anterior Bilateral Throughout] Pulse Rate [ 64 Apical] Respiratory 18 18 18 Rate Respiratory Rate [Anterior Bilateral Throughout] Blood Pressure 120/36 127/39 118/45 O2 Sat by Pulse 100 100 100 Oximetry 12/21/18 12/21/18 12/21/18 04:30 04:45 05:00 Temperature Pulse Rate 60 61 60 Pulse Rate [ Anterior Bilateral Throughout] Pulse Rate [ Apical] Respiratory 18 18 16 Rate Respiratory Rate [Anterior Bilateral Throughout] Blood Pressure 120/36 120/36 103/33 O2 Sat by Pulse 100 100 100 Oximetry 12/21/18 12/21/18 12/21/18 05:15 05:31 05:45 Temperature Pulse Rate 60 60 60 Pulse Rate [ Anterior Bilateral Throughout] Pulse Rate [ Apical] Respiratory 18 18 18 Rate Respiratory Rate [Anterior Bilateral Throughout] Blood Pressure 103/33 123/38 123/38 O2 Sat by Pulse 100 100 99 Oximetry 12/21/18 12/21/18 12/21/18 06:01 06:15 06:31 Temperature Pulse Rate 62 67 67 Pulse Rate [ Anterior Bilateral Throughout] Pulse Rate [ Apical] Respiratory 18 18 14 Rate Respiratory Rate [Anterior Bilateral Throughout] Blood Pressure 110/28 110/28 194/43 O2 Sat by Pulse 100 100 99 Oximetry 12/21/18 12/21/18 12/21/18 06:45 07:01 07:15 Temperature Pulse Rate 63 60 60 Pulse Rate [ Anterior Bilateral Throughout] Pulse Rate [ Apical] Respiratory 17 18 18 Rate Respiratory Rate [Anterior Bilateral Throughout] Blood Pressure 143/32 118/20 126/24 O2 Sat by Pulse 98 99 100 Oximetry 12/21/18 12/21/18 12/21/18 07:31 07:45 08:00 Temperature 92.8 F L Pulse Rate 61 61 Pulse Rate [ Anterior Bilateral Throughout] Pulse Rate [ Apical] Respiratory 18 17 Rate Respiratory Rate [Anterior Bilateral Throughout] Blood Pressure 114/24 114/24 O2 Sat by Pulse 100 99 Oximetry 12/21/18 12/21/18 12/21/18 08:01 08:15 08:30 Temperature Pulse Rate 64 62 60 Pulse Rate [ Anterior Bilateral Throughout] Pulse Rate [ Apical] Respiratory 18 18 18 Rate Respiratory Rate [Anterior Bilateral Throughout] Blood Pressure 93/36 93/36 108/25 O2 Sat by Pulse 100 99 99 Oximetry 12/21/18 12/21/18 12/21/18 08:45 09:00 09:15 Temperature Pulse Rate 64 60 61 Pulse Rate [ Anterior Bilateral Throughout] Pulse Rate [ Apical] Respiratory 18 15 18 Rate Respiratory Rate [Anterior Bilateral Throughout] Blood Pressure 112/35 103/30 103/30 O2 Sat by Pulse 99 100 97 Oximetry 12/21/18 12/21/18 12/21/18 09:45 09:50 09:55 Temperature Pulse Rate 61 63 Pulse Rate [ 60 Anterior Bilateral Throughout] Pulse Rate [ Apical] Respiratory 8 L 8 L Rate Respiratory 16 Rate [Anterior Bilateral Throughout] Blood Pressure 103/30 140/32 O2 Sat by Pulse 100 99 Oximetry 12/21/18 12/21/18 10:15 10:56 Temperature 92.5 F L Pulse Rate 60 Pulse Rate [ 62 Anterior Bilateral Throughout] Pulse Rate [ Apical] Respiratory 18 Rate Respiratory 18 Rate [Anterior Bilateral Throughout] Blood Pressure 117/20 O2 Sat by Pulse 99 Oximetry Constitutional: no acute distress, comatose, other (on vent cmv) Eyes: non-icteric ENT: oropharynx moist, other (ETT in position,large tongue) Neck: supple, no JVD, other (right left IJ lines in place) Ascultation: Bilateral: clear, diminished breath sounds Cardiovascular: regular rate and rhythm, other (pacemaker rhythm) Gastrointestinal: normoactive bowel sounds, non-distended Integumentary: normal Extremities: no cyanosis, no edema, pink and warm Neurologic: pupils equal and round, other (comatose) CBC and BMP: 12/21/18 07:19 12/21/18 07:19 ABG, PT/INR, D-dimer: ABG POC ABG pH 7.325 (7.35-7.45) L 12/15/18 03:37 POC ABG pCO2 28.6 (35-45) L 12/15/18 03:37 POC ABG pO2 105 (80-105) 12/15/18 03:37 POC ABG HCO3 14.9 12/15/18 03:37 POC ABG Total CO2 16 12/15/18 03:37 POC ABG O2 Sat 98 12/15/18 03:37 PT/INR, D-dimer PT 20.2 Sec. (12.2-14.9) H 12/12/18 08:00 INR 1.61 (0.87-1.13) H 12/12/18 08:00 Abnormal lab findings: Abnormal Labs 12/08/18 12/08/18 12/08/18 12:58 13:40 13:40 WBC RBC Hgb Hct MCV MCH RDW Plt Count Lymph % (Auto) Lymph # Seg Neutrophils % Seg Neuts % (Manual) Lymphocytes % (Manual) Monocytes % (Manual) Nucleated RBC % Seg Neutrophils # Seg Neutrophils # Man Lymphocytes # (Manual) Monocytes # (Manual) PT INR POC ABG pH POC ABG pCO2 POC ABG pO2 Sodium Potassium Chloride Carbon Dioxide BUN Creatinine Glucose POC Glucose 143 H Lactic Acid Calcium Phosphorus Total Bilirubin AST Total Creatine Kinase C-Reactive Protein Total Protein Albumin TSH Free T4 Urine WBC (Auto) 157.0 H Crossmatch See Detail 12/08/18 12/08/18 12/08/18 13:40 13:40 13:40 WBC RBC 3.06 L Hgb 6.8 L Hct 21.1 L MCV 69 L MCH 22 L RDW 16.2 H Plt Count 56 L Lymph % (Auto) Lymph # Seg Neutrophils % Seg Neuts % (Manual) Lymphocytes % (Manual) 2.0 L Monocytes % (Manual) Nucleated RBC % Seg Neutrophils # Seg Neutrophils # Man Lymphocytes # (Manual) 0.2 L Monocytes # (Manual) PT INR POC ABG pH POC ABG pCO2 POC ABG pO2 Sodium Potassium 3.2 L Chloride Carbon Dioxide 18 L BUN 64 H Creatinine 1.5 H Glucose 145 H POC Glucose Lactic Acid 4.00 H* Calcium 7.7 L Phosphorus Total Bilirubin AST Total Creatine Kinase 258 H C-Reactive Protein Total Protein 4.6 L Albumin 1.8 L TSH Free T4 Urine WBC (Auto) Crossmatch 12/08/18 12/08/18 12/08/18 14:29 15:21 16:06 WBC RBC Hgb Hct MCV MCH RDW Plt Count Lymph % (Auto) Lymph # Seg Neutrophils % Seg Neuts % (Manual) Lymphocytes % (Manual) Monocytes % (Manual) Nucleated RBC % Seg Neutrophils # Seg Neutrophils # Man Lymphocytes # (Manual) Monocytes # (Manual) PT 20.5 H INR 1.64 H POC ABG pH POC ABG pCO2 34.2 L POC ABG pO2 465 H Sodium Potassium Chloride Carbon Dioxide BUN Creatinine Glucose POC Glucose Lactic Acid 3.00 H* Calcium Phosphorus Total Bilirubin AST Total Creatine Kinase C-Reactive Protein Total Protein Albumin TSH Free T4 Urine WBC (Auto) Crossmatch 12/09/18 12/09/18 12/09/18 02:31 05:36 05:36 WBC 14.5 H RBC Hgb Hct MCV 75 L MCH 25 L RDW 20.4 H Plt Count 68 L Lymph % (Auto) Lymph # Seg Neutrophils % Seg Neuts % (Manual) 81.0 H Lymphocytes % (Manual) 1.0 L Monocytes % (Manual) Nucleated RBC % Seg Neutrophils # Seg Neutrophils # Man 11.7 H Lymphocytes # (Manual) 0.1 L Monocytes # (Manual) PT INR POC ABG pH POC ABG pCO2 POC ABG pO2 Sodium Potassium Chloride 107.6 H Carbon Dioxide 18 L BUN 75 H Creatinine 1.9 H Glucose 136 H POC Glucose 152 H Lactic Acid Calcium 7.9 L Phosphorus Total Bilirubin 1.60 H AST 44 H Total Creatine Kinase C-Reactive Protein Total Protein 5.2 L Albumin 2.4 L TSH Free T4 Urine WBC (Auto) Crossmatch 12/09/18 12/09/18 12/09/18 05:43 10:47 13:46 WBC RBC Hgb Hct MCV MCH RDW Plt Count Lymph % (Auto) Lymph # Seg Neutrophils % Seg Neuts % (Manual) Lymphocytes % (Manual) Monocytes % (Manual) Nucleated RBC % Seg Neutrophils # Seg Neutrophils # Man Lymphocytes # (Manual) Monocytes # (Manual) PT INR POC ABG pH 7.308 L POC ABG pCO2 POC ABG pO2 183 H Sodium Potassium Chloride Carbon Dioxide BUN Creatinine Glucose POC Glucose 150 H 162 H Lactic Acid Calcium Phosphorus Total Bilirubin AST Total Creatine Kinase C-Reactive Protein Total Protein Albumin TSH Free T4 Urine WBC (Auto) Crossmatch 12/09/18 12/09/18 12/09/18 15:54 15:54 16:40 WBC RBC Hgb Hct MCV MCH RDW Plt Count Lymph % (Auto) Lymph # Seg Neutrophils % Seg Neuts % (Manual) Lymphocytes % (Manual) Monocytes % (Manual) Nucleated RBC % Seg Neutrophils # Seg Neutrophils # Man Lymphocytes # (Manual) Monocytes # (Manual) PT INR POC ABG pH POC ABG pCO2 POC ABG pO2 Sodium Potassium Chloride Carbon Dioxide BUN Creatinine Glucose POC Glucose 197 H Lactic Acid Calcium Phosphorus Total Bilirubin AST Total Creatine Kinase C-Reactive Protein Total Protein Albumin TSH 0.268 L Free T4 0.58 L Urine WBC (Auto) Crossmatch 12/09/18 12/09/18 12/09/18 18:18 18:18 21:51 WBC RBC Hgb Hct MCV MCH RDW Plt Count Lymph % (Auto) Lymph # Seg Neutrophils % Seg Neuts % (Manual) Lymphocytes % (Manual) Monocytes % (Manual) Nucleated RBC % Seg Neutrophils # Seg Neutrophils # Man Lymphocytes # (Manual) Monocytes # (Manual) PT INR POC ABG pH POC ABG pCO2 POC ABG pO2 Sodium Potassium Chloride 108.2 H Carbon Dioxide 16 L BUN 89 H Creatinine 2.3 H Glucose 180 H POC Glucose 198 H Lactic Acid Calcium 7.9 L Phosphorus Total Bilirubin AST Total Creatine Kinase C-Reactive Protein 19.60 H Total Protein Albumin TSH Free T4 Urine WBC (Auto) Crossmatch 12/10/18 12/10/18 12/10/18 01:59 04:14 04:38 WBC 11.5 H RBC Hgb Hct MCV 75 L MCH 25 L RDW 21.1 H Plt Count 81 L Lymph % (Auto) 5.6 L Lymph # 0.6 L Seg Neutrophils % 89.8 H Seg Neuts % (Manual) Lymphocytes % (Manual) Monocytes % (Manual) Nucleated RBC % Seg Neutrophils # 10.3 H Seg Neutrophils # Man Lymphocytes # (Manual) Monocytes # (Manual) PT INR POC ABG pH 7.273 L POC ABG pCO2 32.1 L POC ABG pO2 161 H Sodium Potassium Chloride Carbon Dioxide BUN Creatinine Glucose POC Glucose 219 H Lactic Acid Calcium Phosphorus Total Bilirubin AST Total Creatine Kinase C-Reactive Protein Total Protein Albumin TSH Free T4 Urine WBC (Auto) Crossmatch 12/10/18 12/10/18 12/10/18 04:38 05:07 07:26 WBC RBC Hgb Hct MCV MCH RDW Plt Count Lymph % (Auto) Lymph # Seg Neutrophils % Seg Neuts % (Manual) Lymphocytes % (Manual) Monocytes % (Manual) Nucleated RBC % Seg Neutrophils # Seg Neutrophils # Man Lymphocytes # (Manual) Monocytes # (Manual) PT INR POC ABG pH POC ABG pCO2 POC ABG pO2 Sodium Potassium Chloride 112.5 H Carbon Dioxide 14 L BUN 94 H Creatinine 2.4 H Glucose 207 H POC Glucose 221 H 212 H Lactic Acid Calcium 7.7 L Phosphorus Total Bilirubin AST Total Creatine Kinase C-Reactive Protein Total Protein Albumin TSH Free T4 Urine WBC (Auto) Crossmatch 12/10/18 12/10/18 12/10/18 10:40 11:15 14:21 WBC RBC Hgb Hct MCV MCH RDW Plt Count Lymph % (Auto) Lymph # Seg Neutrophils % Seg Neuts % (Manual) Lymphocytes % (Manual) Monocytes % (Manual) Nucleated RBC % Seg Neutrophils # Seg Neutrophils # Man Lymphocytes # (Manual) Monocytes # (Manual) PT 21.4 H INR 1.73 H POC ABG pH 7.214 L POC ABG pCO2 32.8 L POC ABG pO2 Sodium Potassium Chloride Carbon Dioxide BUN Creatinine Glucose POC Glucose 227 H Lactic Acid Calcium Phosphorus Total Bilirubin AST Total Creatine Kinase C-Reactive Protein Total Protein Albumin TSH Free T4 Urine WBC (Auto) Crossmatch 12/10/18 12/10/18 12/11/18 15:47 22:38 03:36 WBC RBC Hgb Hct MCV MCH RDW Plt Count Lymph % (Auto) Lymph # Seg Neutrophils % Seg Neuts % (Manual) Lymphocytes % (Manual) Monocytes % (Manual) Nucleated RBC % Seg Neutrophils # Seg Neutrophils # Man Lymphocytes # (Manual) Monocytes # (Manual) PT INR POC ABG pH POC ABG pCO2 26.2 L POC ABG pO2 138 H Sodium Potassium Chloride Carbon Dioxide BUN Creatinine Glucose POC Glucose 202 H 259 H Lactic Acid Calcium Phosphorus Total Bilirubin AST Total Creatine Kinase C-Reactive Protein Total Protein Albumin TSH Free T4 Urine WBC (Auto) Crossmatch 12/11/18 12/11/18 12/11/18 04:12 05:00 06:19 WBC RBC Hgb Hct MCV MCH RDW Plt Count Lymph % (Auto) Lymph # Seg Neutrophils % Seg Neuts % (Manual) Lymphocytes % (Manual) Monocytes % (Manual) Nucleated RBC % Seg Neutrophils # Seg Neutrophils # Man Lymphocytes # (Manual) Monocytes # (Manual) PT 19.5 H INR 1.54 H POC ABG pH POC ABG pCO2 24.6 L POC ABG pO2 119 H Sodium Potassium Chloride Carbon Dioxide BUN Creatinine Glucose POC Glucose 174 H Lactic Acid Calcium Phosphorus Total Bilirubin AST Total Creatine Kinase C-Reactive Protein Total Protein Albumin TSH Free T4 Urine WBC (Auto) Crossmatch 12/11/18 12/11/18 12/11/18 11:10 11:10 18:10 WBC 14.3 H RBC Hgb Hct MCV 73 L MCH 24 L RDW 21.5 H Plt Count Lymph % (Auto) Lymph # Seg Neutrophils % Seg Neuts % (Manual) Lymphocytes % (Manual) Monocytes % (Manual) Nucleated RBC % Seg Neutrophils # Seg Neutrophils # Man Lymphocytes # (Manual) Monocytes # (Manual) PT INR POC ABG pH POC ABG pCO2 POC ABG pO2 Sodium Potassium Chloride 110.5 H Carbon Dioxide 15 L BUN 101 H Creatinine 2.4 H Glucose 119 H POC Glucose 147 H Lactic Acid Calcium 7.7 L Phosphorus Total Bilirubin AST Total Creatine Kinase C-Reactive Protein Total Protein Albumin TSH Free T4 Urine WBC (Auto) Crossmatch 12/11/18 12/12/18 12/12/18 23:25 05:37 06:03 WBC RBC Hgb Hct MCV MCH RDW Plt Count Lymph % (Auto) Lymph # Seg Neutrophils % Seg Neuts % (Manual) Lymphocytes % (Manual) Monocytes % (Manual) Nucleated RBC % Seg Neutrophils # Seg Neutrophils # Man Lymphocytes # (Manual) Monocytes # (Manual) PT INR POC ABG pH 7.346 L POC ABG pCO2 28.3 L POC ABG pO2 120 H Sodium Potassium Chloride Carbon Dioxide BUN Creatinine Glucose POC Glucose 143 H 154 H Lactic Acid Calcium Phosphorus Total Bilirubin AST Total Creatine Kinase C-Reactive Protein Total Protein Albumin TSH Free T4 Urine WBC (Auto) Crossmatch 12/12/18 12/12/18 12/12/18 08:00 08:00 08:00 WBC 16.2 H RBC Hgb Hct MCV 74 L MCH 25 L RDW 21.9 H Plt Count 21 L Lymph % (Auto) Lymph # Seg Neutrophils % Seg Neuts % (Manual) Lymphocytes % (Manual) Monocytes % (Manual) Nucleated RBC % Seg Neutrophils # Seg Neutrophils # Man Lymphocytes # (Manual) Monocytes # (Manual) PT 20.2 H INR 1.61 H POC ABG pH POC ABG pCO2 POC ABG pO2 Sodium Potassium Chloride 107.4 H Carbon Dioxide 16 L BUN 101 H Creatinine 2.3 H Glucose 169 H POC Glucose Lactic Acid Calcium 8.2 L Phosphorus Total Bilirubin AST Total Creatine Kinase C-Reactive Protein Total Protein Albumin TSH Free T4 Urine WBC (Auto) Crossmatch 12/12/18 12/12/18 12/13/18 12:59 18:01 04:28 WBC 18.6 H RBC Hgb Hct MCV 74 L MCH 24 L RDW 21.8 H Plt Count 34 L Lymph % (Auto) Lymph # Seg Neutrophils % Seg Neuts % (Manual) 97.0 H Lymphocytes % (Manual) 2.0 L Monocytes % (Manual) Nucleated RBC % 1.0 H Seg Neutrophils # Seg Neutrophils # Man 18.0 H Lymphocytes # (Manual) 0.4 L Monocytes # (Manual) PT INR POC ABG pH POC ABG pCO2 POC ABG pO2 Sodium Potassium Chloride Carbon Dioxide BUN Creatinine Glucose POC Glucose 158 H 123 H Lactic Acid Calcium Phosphorus Total Bilirubin AST Total Creatine Kinase C-Reactive Protein Total Protein Albumin TSH Free T4 Urine WBC (Auto) Crossmatch 12/13/18 12/13/18 12/13/18 04:28 04:45 19:17 WBC RBC Hgb Hct MCV MCH RDW Plt Count Lymph % (Auto) Lymph # Seg Neutrophils % Seg Neuts % (Manual) Lymphocytes % (Manual) Monocytes % (Manual) Nucleated RBC % Seg Neutrophils # Seg Neutrophils # Man Lymphocytes # (Manual) Monocytes # (Manual) PT INR POC ABG pH 7.327 L POC ABG pCO2 31.1 L POC ABG pO2 136 H Sodium Potassium Chloride 112.0 H Carbon Dioxide 17 L BUN 97 H Creatinine 2.2 H Glucose POC Glucose 106 H Lactic Acid Calcium 8.1 L Phosphorus Total Bilirubin AST Total Creatine Kinase C-Reactive Protein Total Protein Albumin TSH Free T4 Urine WBC (Auto) Crossmatch 12/13/18 12/14/18 12/14/18 23:24 03:35 03:35 WBC 22.0 H RBC Hgb Hct MCV 75 L MCH 24 L RDW 22.2 H Plt Count 44 L Lymph % (Auto) Lymph # Seg Neutrophils % Seg Neuts % (Manual) 96.0 H Lymphocytes % (Manual) 3.0 L Monocytes % (Manual) Nucleated RBC % Seg Neutrophils # Seg Neutrophils # Man 21.1 H Lymphocytes # (Manual) 0.7 L Monocytes # (Manual) PT INR POC ABG pH POC ABG pCO2 POC ABG pO2 Sodium 136 L Potassium Chloride 107.2 H Carbon Dioxide 15 L BUN 87 H Creatinine 1.7 H Glucose 156 H POC Glucose 108 H Lactic Acid Calcium 7.7 L Phosphorus Total Bilirubin AST Total Creatine Kinase C-Reactive Protein Total Protein Albumin TSH Free T4 Urine WBC (Auto) Crossmatch 12/14/18 12/14/18 12/14/18 04:58 05:37 12:10 WBC RBC Hgb Hct MCV MCH RDW Plt Count Lymph % (Auto) Lymph # Seg Neutrophils % Seg Neuts % (Manual) Lymphocytes % (Manual) Monocytes % (Manual) Nucleated RBC % Seg Neutrophils # Seg Neutrophils # Man Lymphocytes # (Manual) Monocytes # (Manual) PT INR POC ABG pH 7.301 L POC ABG pCO2 32.6 L POC ABG pO2 138 H Sodium Potassium Chloride Carbon Dioxide BUN Creatinine Glucose POC Glucose 178 H 208 H Lactic Acid Calcium Phosphorus Total Bilirubin AST Total Creatine Kinase C-Reactive Protein Total Protein Albumin TSH Free T4 Urine WBC (Auto) Crossmatch 12/14/18 12/14/18 12/15/18 17:44 23:16 03:37 WBC RBC Hgb Hct MCV MCH RDW Plt Count Lymph % (Auto) Lymph # Seg Neutrophils % Seg Neuts % (Manual) Lymphocytes % (Manual) Monocytes % (Manual) Nucleated RBC % Seg Neutrophils # Seg Neutrophils # Man Lymphocytes # (Manual) Monocytes # (Manual) PT INR POC ABG pH 7.325 L POC ABG pCO2 28.6 L POC ABG pO2 Sodium Potassium Chloride Carbon Dioxide BUN Creatinine Glucose POC Glucose 172 H 123 H Lactic Acid Calcium Phosphorus Total Bilirubin AST Total Creatine Kinase C-Reactive Protein Total Protein Albumin TSH Free T4 Urine WBC (Auto) Crossmatch 12/15/18 12/15/18 12/15/18 05:30 05:30 05:43 WBC 20.1 H RBC Hgb 9.5 L Hct 29.2 L MCV 74 L MCH 24 L RDW 22.7 H Plt Count 48 L Lymph % (Auto) Lymph # Seg Neutrophils % Seg Neuts % (Manual) 96.0 H Lymphocytes % (Manual) 1.0 L Monocytes % (Manual) Nucleated RBC % Seg Neutrophils # Seg Neutrophils # Man 19.3 H Lymphocytes # (Manual) 0.2 L Monocytes # (Manual) PT INR POC ABG pH POC ABG pCO2 POC ABG pO2 Sodium Potassium Chloride 110.8 H Carbon Dioxide 17 L BUN 83 H Creatinine 1.6 H Glucose 150 H POC Glucose 151 H Lactic Acid Calcium 7.7 L Phosphorus Total Bilirubin AST Total Creatine Kinase C-Reactive Protein Total Protein Albumin TSH Free T4 Urine WBC (Auto) Crossmatch 12/15/18 12/15/18 12/16/18 12:56 18:21 00:10 WBC RBC Hgb Hct MCV MCH RDW Plt Count Lymph % (Auto) Lymph # Seg Neutrophils % Seg Neuts % (Manual) Lymphocytes % (Manual) Monocytes % (Manual) Nucleated RBC % Seg Neutrophils # Seg Neutrophils # Man Lymphocytes # (Manual) Monocytes # (Manual) PT INR POC ABG pH POC ABG pCO2 POC ABG pO2 Sodium Potassium Chloride Carbon Dioxide BUN Creatinine Glucose POC Glucose 190 H 143 H 174 H Lactic Acid Calcium Phosphorus Total Bilirubin AST Total Creatine Kinase C-Reactive Protein Total Protein Albumin TSH Free T4 Urine WBC (Auto) Crossmatch 12/16/18 12/16/18 12/16/18 05:24 05:30 05:30 WBC 17.1 H RBC Hgb 9.1 L Hct 28.8 L MCV 76 L MCH 24 L RDW 23.5 H Plt Count 37 L Lymph % (Auto) Lymph # Seg Neutrophils % Seg Neuts % (Manual) Lymphocytes % (Manual) 9.0 L Monocytes % (Manual) 9.0 H Nucleated RBC % Seg Neutrophils # Seg Neutrophils # Man 9.6 H Lymphocytes # (Manual) Monocytes # (Manual) 1.5 H PT INR POC ABG pH POC ABG pCO2 POC ABG pO2 Sodium Potassium Chloride 110.8 H Carbon Dioxide 15 L BUN 81 H Creatinine 1.6 H Glucose 161 H POC Glucose 154 H Lactic Acid Calcium 7.6 L Phosphorus Total Bilirubin AST Total Creatine Kinase C-Reactive Protein Total Protein Albumin TSH Free T4 Urine WBC (Auto) Crossmatch 12/16/18 12/16/18 12/16/18 12:31 17:42 21:56 WBC RBC Hgb Hct MCV MCH RDW Plt Count Lymph % (Auto) Lymph # Seg Neutrophils % Seg Neuts % (Manual) Lymphocytes % (Manual) Monocytes % (Manual) Nucleated RBC % Seg Neutrophils # Seg Neutrophils # Man Lymphocytes # (Manual) Monocytes # (Manual) PT INR POC ABG pH POC ABG pCO2 POC ABG pO2 Sodium Potassium Chloride Carbon Dioxide BUN Creatinine Glucose POC Glucose 172 H 173 H 118 H Lactic Acid Calcium Phosphorus Total Bilirubin AST Total Creatine Kinase C-Reactive Protein Total Protein Albumin TSH Free T4 Urine WBC (Auto) Crossmatch 12/16/18 12/17/18 12/17/18 23:38 04:24 04:24 WBC 19.2 H RBC Hgb 9.5 L Hct 29.7 L MCV 76 L MCH 24 L RDW 24.4 H Plt Count 26 L Lymph % (Auto) Lymph # Seg Neutrophils % Seg Neuts % (Manual) Lymphocytes % (Manual) 6.0 L Monocytes % (Manual) Nucleated RBC % Seg Neutrophils # Seg Neutrophils # Man 13.1 H Lymphocytes # (Manual) Monocytes # (Manual) PT INR POC ABG pH POC ABG pCO2 POC ABG pO2 Sodium 134 L Potassium Chloride 110.0 H Carbon Dioxide 14 L BUN 83 H Creatinine 1.6 H Glucose POC Glucose 109 H Lactic Acid Calcium 7.8 L Phosphorus Total Bilirubin AST Total Creatine Kinase C-Reactive Protein Total Protein Albumin TSH Free T4 Urine WBC (Auto) Crossmatch 12/17/18 12/17/18 12/18/18 06:42 17:49 00:40 WBC RBC Hgb Hct MCV MCH RDW Plt Count Lymph % (Auto) Lymph # Seg Neutrophils % Seg Neuts % (Manual) Lymphocytes % (Manual) Monocytes % (Manual) Nucleated RBC % Seg Neutrophils # Seg Neutrophils # Man Lymphocytes # (Manual) Monocytes # (Manual) PT INR POC ABG pH POC ABG pCO2 POC ABG pO2 Sodium Potassium Chloride 113.1 H Carbon Dioxide 13 L BUN 82 H Creatinine 1.6 H Glucose POC Glucose 66 L 109 H Lactic Acid Calcium 8.0 L Phosphorus Total Bilirubin AST Total Creatine Kinase C-Reactive Protein Total Protein Albumin TSH Free T4 Urine WBC (Auto) Crossmatch 12/18/18 12/18/18 12/18/18 04:08 04:08 12:45 WBC 26.5 H RBC 3.63 L Hgb 8.7 L Hct 26.8 L MCV 74 L MCH 24 L RDW 23.3 H Plt Count 24 L Lymph % (Auto) Lymph # Seg Neutrophils % Seg Neuts % (Manual) Lymphocytes % (Manual) Monocytes % (Manual) Nucleated RBC % Seg Neutrophils # Seg Neutrophils # Man Lymphocytes # (Manual) Monocytes # (Manual) PT INR POC ABG pH POC ABG pCO2 POC ABG pO2 Sodium Potassium Chloride 114.3 H Carbon Dioxide 16 L BUN 82 H Creatinine 1.7 H Glucose POC Glucose 117 H Lactic Acid Calcium 7.8 L Phosphorus 5.10 H Total Bilirubin AST Total Creatine Kinase C-Reactive Protein Total Protein Albumin TSH Free T4 Urine WBC (Auto) Crossmatch 12/18/18 12/18/18 12/19/18 17:42 23:39 04:22 WBC 20.4 H RBC 3.01 L Hgb 7.2 L Hct 22.6 L MCV 75 L MCH 24 L RDW 24.5 H Plt Count 52 L D Lymph % (Auto) Lymph # Seg Neutrophils % Seg Neuts % (Manual) Lymphocytes % (Manual) Monocytes % (Manual) Nucleated RBC % Seg Neutrophils # Seg Neutrophils # Man Lymphocytes # (Manual) Monocytes # (Manual) PT INR POC ABG pH POC ABG pCO2 POC ABG pO2 Sodium Potassium Chloride Carbon Dioxide BUN Creatinine Glucose POC Glucose 121 H 184 H Lactic Acid Calcium Phosphorus Total Bilirubin AST Total Creatine Kinase C-Reactive Protein Total Protein Albumin TSH Free T4 Urine WBC (Auto) Crossmatch 12/19/18 12/19/18 12/19/18 04:22 12:43 18:12 WBC RBC Hgb Hct MCV MCH RDW Plt Count Lymph % (Auto) Lymph # Seg Neutrophils % Seg Neuts % (Manual) Lymphocytes % (Manual) Monocytes % (Manual) Nucleated RBC % Seg Neutrophils # Seg Neutrophils # Man Lymphocytes # (Manual) Monocytes # (Manual) PT INR POC ABG pH POC ABG pCO2 POC ABG pO2 Sodium Potassium Chloride 112.9 H Carbon Dioxide 15 L BUN 76 H Creatinine 1.8 H Glucose 107 H POC Glucose 141 H 227 H Lactic Acid Calcium 7.4 L Phosphorus Total Bilirubin AST Total Creatine Kinase C-Reactive Protein Total Protein Albumin TSH Free T4 Urine WBC (Auto) Crossmatch 12/19/18 12/19/18 12/20/18 23:55 Unknown 03:07 WBC 15.7 H RBC 2.92 L Hgb 7.2 L 7.1 L Hct 22.2 L 21.6 L MCV 74 L MCH 24 L RDW 24.3 H Plt Count 23 L Lymph % (Auto) Lymph # Seg Neutrophils % Seg Neuts % (Manual) Lymphocytes % (Manual) Monocytes % (Manual) Nucleated RBC % Seg Neutrophils # Seg Neutrophils # Man Lymphocytes # (Manual) Monocytes # (Manual) PT INR POC ABG pH POC ABG pCO2 POC ABG pO2 Sodium Potassium Chloride Carbon Dioxide BUN Creatinine Glucose POC Glucose 174 H Lactic Acid Calcium Phosphorus Total Bilirubin AST Total Creatine Kinase C-Reactive Protein Total Protein Albumin TSH Free T4 Urine WBC (Auto) Crossmatch 12/20/18 12/20/18 12/20/18 03:07 05:20 11:00 WBC RBC Hgb Hct MCV MCH RDW Plt Count Lymph % (Auto) Lymph # Seg Neutrophils % Seg Neuts % (Manual) Lymphocytes % (Manual) Monocytes % (Manual) Nucleated RBC % Seg Neutrophils # Seg Neutrophils # Man Lymphocytes # (Manual) Monocytes # (Manual) PT INR POC ABG pH POC ABG pCO2 POC ABG pO2 Sodium 136 L Potassium Chloride Carbon Dioxide 20 L BUN 79 H Creatinine 2.1 H Glucose 141 H POC Glucose 210 H Lactic Acid Calcium 7.5 L Phosphorus Total Bilirubin AST Total Creatine Kinase C-Reactive Protein Total Protein Albumin TSH Free T4 Urine WBC (Auto) Crossmatch See Detail 12/20/18 12/20/18 12/21/18 11:40 17:51 00:33 WBC RBC Hgb Hct MCV MCH RDW Plt Count Lymph % (Auto) Lymph # Seg Neutrophils % Seg Neuts % (Manual) Lymphocytes % (Manual) Monocytes % (Manual) Nucleated RBC % Seg Neutrophils # Seg Neutrophils # Man Lymphocytes # (Manual) Monocytes # (Manual) PT INR POC ABG pH POC ABG pCO2 POC ABG pO2 Sodium Potassium Chloride Carbon Dioxide BUN Creatinine Glucose POC Glucose 183 H 150 H 119 H Lactic Acid Calcium Phosphorus Total Bilirubin AST Total Creatine Kinase C-Reactive Protein Total Protein Albumin TSH Free T4 Urine WBC (Auto) Crossmatch 12/21/18 12/21/18 12/21/18 05:05 07:19 07:19 WBC 11.9 H RBC 2.83 L Hgb 6.9 L Hct 20.7 L MCV 73 L MCH 24 L RDW 23.9 H Plt Count 11 L* Lymph % (Auto) Lymph # Seg Neutrophils % Seg Neuts % (Manual) Lymphocytes % (Manual) Monocytes % (Manual) Nucleated RBC % Seg Neutrophils # Seg Neutrophils # Man Lymphocytes # (Manual) Monocytes # (Manual) PT INR POC ABG pH POC ABG pCO2 POC ABG pO2 Sodium 135 L Potassium Chloride Carbon Dioxide 21 L BUN 78 H Creatinine 2.3 H Glucose 143 H POC Glucose 165 H Lactic Acid Calcium 7.3 L Phosphorus Total Bilirubin AST Total Creatine Kinase C-Reactive Protein Total Protein Albumin TSH Free T4 Urine WBC (Auto) Crossmatch Allied health notes reviewed: nursing
[2018-12-21] MEDS: SODIUM BICARBONATE 75 MEQ in D5W 1,000 ML IV SCH (13:06)
[2018-12-21] MEDS ORDERED: NACL 0.9% 500 ML 500 ML IV SCH (17:00)
[2018-12-21 18:24] LABS: Hematocrit 23.8 % (30.3-42.9); Hemoglobin 7.9 gm/dl (10.1-14.3)
[2018-12-22] MEDS: PREVACID SOLUTAB FEEDTUBE SCH ×3 (00:26→21:15)
[2018-12-22] MEDS: DUONEB *Not for PRN Use IH SCH ×4 (02:23→19:24)
[2018-12-22 06:52] LABS: Hematocrit 28.3 % (30.3-42.9); Hemoglobin 9.4 gm/dl (10.1-14.3); Mean Corpuscular HGB Conc 33 % (30-34); Mean Corpuscular Volume 76 fl (79-97); Red Blood Count 3.73 M/mm3 (3.65-5.03)
[2018-12-22 06:57] LABS: Red Cell Distribution Width 24.5 % (13.2-15.2)
[2018-12-22] MEDS: SODIUM BICARBONATE 75 MEQ in D5W 1,000 ML IV SCH ×2 (07:03→19:19)
[2018-12-22] MEDS: HumaLOG SUB-Q SCH ×3 (07:05→17:26)
[2018-12-22 07:15] LABS: Calcium 7.4 mg/dL (8.4-10.2)
[2018-12-22] MEDS: MERREM 1,000 MG in NACL 0.9% 100 ML IV SCH (09:24)
[2018-12-22] MEDS: PROAMATINE PO SCH ×3 (09:24→16:37)
[2018-12-22] MEDS: SODIUM CHLORIDE FLUSH SYRINGE 10 ML IV SCH ×2 (09:25→21:15)
--- NOTE | 2018-12-22 09:52 | Progress Note ---
Assessment and Plan Assessment and plan: Acute respiratory failure, intubated Likely from underlying severe sepsis, encephalopathy and pleural effusion [employer]/P[employer] consulted Continue nebs, continue antibiotics CXR showed small left pleural effusion. CT chest showed large pericardial effusion, LLL atelectasis v/s infiltrate and left pleural effusion. Unable to wean off, may need trach and PEG Acute encephalopathy: - likely from sepsis alone versus possible meningitis vs seizure. CT head extensive right MCA encephalomalcia, right mastoid opacities. neurology ordered EEG. 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 - when stable need LP for CSF cell count, diff, protein, glucose, culture, Gram stain, VDRL, HSV and Crypto ag, LP ordered by ID - continue cefepime, vancomycin renally adjusted for now Severe Sepsis due to UTI , right mastoiditis, aspiration PNA Blood cultures negative, right ear Cx negative Started on Merrem Shock, hypotension did not respond to iv bolus so was started on Levophed, BP improved so off levophed Leukocytosis Hypotension/septic shock, resolved weaned off Levophed, BP now stable Left lower lobe infiltrate, poss pneumonia - Treat with antibiotic for now /Large Pericardial effusion. TTE EF>50, no echo evidence of tamponade. Cardiology consulted, following and recommended medical management for now Coffee ground contents from NG aspirate/ Acute GI bleed cont Protonix, Consulted GI- H/h was 6.8 on admission but now stable after 2 units of PRBc transfusion cont to Monitor H/H, no plan for EGD now MARYANN on CKD 3 baseline Cr around 1.2-1.5mg/dl Likely due to underlying sepsis Monitor BMP, Nephrology following- no indication for HD now /Acute on chronic anemia has h/o anemia requiring previous blood transfusions could be multifactorial (GI bleed and CKD), s/p 2 Units PRBC transfused on 12/08/18 Transfused 1 Unit PRBC 12/21 for Hgb 6.9, today hgb 9.4 Thrombocytopenia Transfused 2 Units platelets on 12/19/18 Plt 11. Transfused 2 units platelet phresis yesterday 12/21, Hypothermia warming blanket / h/o Hypertension - BP now stable /Diabetes mellitus type 2, SSI as needed /FEN, on TF, not tolerating, Full code status. Poor prognosis The high probability of a clinically significant, sudden or life threatening deterioration of the [4] system(s) required my full and direct attention, intervention and personal management. The aggregate critical care time was [33] minutes. 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 In the ED, She was found in acute respiratory failure, requiring bag valve mask ventilation and hypotensive. Noted coffee- ground drainage from OG tube and patient also found to have purulent discharge from the right ear, and stephanie are removed by ED physician. Patient was intubated in the ER and admitted to the ICU for further evaluation and management. Blood culture 12/08/2018 no growth so far. CT head extensive right MCA encephalomalcia, right mastoid opacities. CXR showed small left pleural effusion. CT chest showed large pericardial effusion, LLL atelectasis v/s infiltrate and left pleural effusion. s/p 2 units PRBc transfusion on 12/08/18. renal consulted for worsening renal function. Unable to wean off, patient may need trach and PEG. Patient became hypotensive 12/18, was placed on Levophed, now off Levophed Unresponsive Still hypothermia, on warming blanket Hospitalist Physical - Physical exam Narrative exam: GEN: Intubated, On vent, warming blanket on HEENT: Normocephalic, atraumatic, Neck: supple, No JVD Heart:s1 and S2 reg, no murmurs Lungs: Clear to auscultation bilaterally, no wheeze Abd:soft, non tender, non distended, normal bowel sounds Ext: No edema, no clubbing, no cyanosis Neuro: Intubated, Unresponsive, does not follow commands Skin:No rash - Constitutional Vitals: Temp Pulse Resp BP Pulse Ox 94.8 F L 60 18 125/22 100 12/22/18 08:00 12/22/18 08:46 12/22/18 08:46 12/22/18 08:46 12/22/18 08:46 Results - Labs CBC & Chem 7: 12/22/18 05:35 12/22/18 05:35 Labs: Laboratory Last Values WBC 11.8 K/mm3 (4.5-11.0) H 12/22/18 05:35 RBC 3.73 M/mm3 (3.65-5.03) 12/22/18 05:35 Hgb 9.4 gm/dl (10.1-14.3) L 12/22/18 05:35 Hct 28.3 % (30.3-42.9) L 12/22/18 05:35 MCV 76 fl (79-97) L 12/22/18 05:35 MCH 25 pg (28-32) L 12/22/18 05:35 MCHC 33 % (30-34) 12/22/18 05:35 RDW 24.5 % (13.2-15.2) H 12/22/18 05:35 Plt Count 11 K/mm3 (140-440) L* 12/21/18 07:19 Lymph % (Auto) 5.6 % (13.4-35.0) L 12/10/18 04:38 [place] % (Auto) 4.2 % (0.0-7.3) 12/10/18 04:38 Eos % (Auto) 0.3 % (0.0-4.3) 12/10/18 04:38 Baso % (Auto) 0.1 % (0.0-1.8) 12/10/18 04:38 Lymph # 0.6 K/mm3 (1.2-5.4) L 12/10/18 04:38 [place] # 0.5 K/mm3 (0.0-0.8) 12/10/18 04:38 Eos # 0.0 K/mm3 (0.0-0.4) 12/10/18 04:38 Baso # 0.0 K/mm3 (0.0-0.1) 12/10/18 04:38 Add Manual Diff Complete 12/17/18 04:24 Total Counted 100 12/17/18 04:24 Seg Neutrophils % Editorial Clerk 12/17/18 04:24 Seg Neuts % (Manual) 68.0 % (40.0-70.0) 12/17/18 04:24 Band Neutrophils % 22.0 % 12/17/18 04:24 Lymphocytes % (Manual) 6.0 % (13.4-35.0) L 12/17/18 04:24 Reactive Lymphs % (Man) 0 % 12/17/18 04:24 Monocytes % (Manual) 4.0 % (0.0-7.3) 12/17/18 04:24 Eosinophils % (Manual) 0 % (0.0-4.3) 12/17/18 04:24 Basophils % (Manual) 0 % (0.0-1.8) 12/17/18 04:24 Metamyelocytes % 0 % 12/17/18 04:24 Myelocytes % 0 % 12/17/18 04:24 Promyelocytes % 0 % 12/17/18 04:24 Blast Cells % 0 % 12/17/18 04:24 Nucleated RBC % Not Reportable 12/17/18 04:24 Seg Neutrophils # 10.3 K/mm3 (1.8-7.7) H 12/10/18 04:38 Seg Neutrophils # Man 13.1 K/mm3 (1.8-7.7) H 12/17/18 04:24 Band Neutrophils # 4.2 K/mm3 12/17/18 04:24 Lymphocytes # (Manual) 1.2 K/mm3 (1.2-5.4) 12/17/18 04:24 Abs React Lymphs (Man) 0.0 K/mm3 12/17/18 04:24 Monocytes # (Manual) 0.8 K/mm3 (0.0-0.8) 12/17/18 04:24 Eosinophils # (Manual) 0.0 K/mm3 (0.0-0.4) 12/17/18 04:24 Basophils # (Manual) 0.0 K/mm3 (0.0-0.1) 12/17/18 04:24 Metamyelocytes # 0.0 K/mm3 12/17/18 04:24 Myelocytes # 0.0 K/mm3 12/17/18 04:24 Promyelocytes # 0.0 K/mm3 12/17/18 04:24 Blast Cells # 0.0 K/mm3 12/17/18 04:24 WBC Morphology Not Reportable 12/17/18 04:24 Hypersegmented Neuts Not Reportable 12/17/18 04:24 Hyposegmented Neuts Not Reportable 12/17/18 04:24 Hypogranular Neuts Not Reportable 12/17/18 04:24 Smudge Cells Not Reportable 12/17/18 04:24 Toxic Granulation Not Reportable 12/17/18 04:24 Toxic Vacuolation Not Reportable 12/17/18 04:24 Dohle Bodies Not Reportable 12/17/18 04:24 Pelger-Huet Anomaly Not Reportable 12/17/18 04:24 Mark Rods Not Reportable 12/17/18 04:24 Platelet Estimate Consistent w auto 12/17/18 04:24 Clumped Platelets Not Reportable 12/17/18 04:24 Plt Clumps, EDTA Not Reportable 12/17/18 04:24 Large Platelets Not Reportable 12/17/18 04:24 Giant Platelets Not Reportable 12/17/18 04:24 Platelet Satelliting Not Reportable 12/17/18 04:24 Plt Morphology Comment Not Reportable 12/17/18 04:24 RBC Morphology Not Reportable 12/17/18 04:24 Dimorphic RBCs Not Reportable 12/17/18 04:24 Polychromasia Not Reportable 12/17/18 04:24 Hypochromasia 1+ 12/17/18 04:24 Poikilocytosis Not Reportable 12/17/18 04:24 Anisocytosis 2+ 12/17/18 04:24 Microcytosis Not Reportable 12/17/18 04:24 Macrocytosis 1+ 12/17/18 04:24 Spherocytes Not Reportable 12/17/18 04:24 Pappenheimer Bodies Not Reportable 12/17/18 04:24 Sickle Cells Not Reportable 12/17/18 04:24 Target Cells Not Reportable 12/17/18 04:24 Tear Drop Cells Not Reportable 12/17/18 04:24 Ovalocytes 1+ 12/17/18 04:24 Helmet Cells Not Reportable 12/17/18 04:24 [place] Bodies Not Reportable 12/17/18 04:24 [place] Rings Not Reportable 12/17/18 04:24 [place] Cells Few 12/17/18 04:24 Bite Cells Not Reportable 12/17/18 04:24 Crenated Cell Not Reportable 12/17/18 04:24 Elliptocytes Few 12/17/18 04:24 Acanthocytes (Spur) Not Reportable 12/17/18 04:24 Rouleaux Not Reportable 12/17/18 04:24 Hemoglobin C Crystals Not Reportable 12/17/18 04:24 Schistocytes Not Reportable 12/17/18 04:24 Malaria parasites Not Reportable 12/17/18 04:24 Stef Bodies Not Reportable 12/17/18 04:24 Hem Pathologist Commnt No 12/17/18 04:24 PT 20.2 Sec. (12.2-14.9) H 12/12/18 08:00 INR 1.61 (0.87-1.13) H 12/12/18 08:00 APTT 30.9 Sec. (24.2-36.6) 12/10/18 10:40 POC ABG pH 7.325 (7.35-7.45) L 12/15/18 03:37 POC ABG pCO2 28.6 (35-45) L 12/15/18 03:37 POC ABG pO2 105 (80-105) 12/15/18 03:37 POC ABG HCO3 14.9 12/15/18 03:37 POC ABG Total CO2 16 12/15/18 03:37 POC ABG O2 Sat 98 12/15/18 03:37 POC ABG Base Excess -11 12/15/18 03:37 FiO2 25 % 12/15/18 03:37 Sodium 132 mmol/L (137-145) L 12/22/18 05:35 Potassium 3.8 mmol/L (3.6-5.0) 12/22/18 05:35 Chloride 98.9 mmol/L (98-107) 12/22/18 05:35 Carbon Dioxide 21 mmol/L (22-30) L 12/22/18 05:35 Anion Gap 16 mmol/L 12/22/18 05:35 BUN 79 mg/dL (7-17) H 12/22/18 05:35 Creatinine 2.3 mg/dL (0.7-1.2) H 12/22/18 05:35 Estimated GFR 24 ml/min 12/22/18 05:35 BUN/Creatinine Ratio 34 % 12/22/18 05:35 Glucose 131 mg/dL (65-100) H 12/22/18 05:35 POC Glucose 126 (70-105) H 12/21/18 23:55 Hemoglobin A1c 4.9 % (4-6) 12/10/18 04:38 Lactic Acid 3.00 mmol/L (0.7-2.0) H* 12/08/18 15:21 Calcium 7.4 mg/dL (8.4-10.2) L 12/22/18 05:35 Phosphorus 5.10 mg/dL (2.5-4.5) H 12/18/18 04:08 Total Bilirubin 1.60 mg/dL (0.1-1.2) H 12/09/18 05:36 AST 44 units/L (5-40) H 12/09/18 05:36 ALT 39 units/L (7-56) 12/09/18 05:36 Alkaline Phosphatase 113 units/L (35-129) 12/09/18 05:36 Total Creatine Kinase 258 units/L (30-135) H 12/08/18 13:40 C-Reactive Protein 19.60 mg/dL (0.00-1.30) H 12/09/18 18:18 Total Protein 5.2 g/dL (6.3-8.2) L 12/09/18 05:36 Albumin 2.4 g/dL (3.9-5) L 12/09/18 05:36 Albumin/Globulin Ratio 0.9 % 12/09/18 05:36 TSH 0.268 mlU/mL (0.270-4.200) L 12/09/18 15:54 Free T4 0.58 ng/dL (0.76-1.46) L 12/09/18 15:54 Urine Color Yolie (Yellow) 12/08/18 13:40 Urine Turbidity Cloudy (Clear) 12/08/18 13:40 Urine pH 7.0 (5.0-7.0) 12/08/18 13:40 Ur Specific [place] 1.015 (1.003-1.030) 12/08/18 13:40 Urine Protein 100 mg/dl mg/dL (Negative) 12/08/18 13:40 Urine Glucose (UA) Neg mg/dL (Negative) 12/08/18 13:40 Urine Ketones Neg mg/dL (Negative) 12/08/18 13:40 Urine Blood Sm (Negative) 12/08/18 13:40 Urine Nitrite Neg (Negative) 12/08/18 13:40 Urine Bilirubin Neg (Negative) 12/08/18 13:40 Urine Urobilinogen 2.0 mg/dL (<2.0) 12/08/18 13:40 Ur Leukocyte Esterase Mod (Negative) 12/08/18 13:40 Urine WBC (Auto) 157.0 /HPF (0.0-6.0) H 12/08/18 13:40 Urine RBC (Auto) 8.0 /HPF (0.0-6.0) 12/08/18 13:40 U Epithel Cells (Auto) 1.0 /HPF (0-13.0) 12/08/18 13:40 Urine Bacteria (Auto) 4+ /HPF (Negative) 12/08/18 13:40 Urine Mucus 2+ /HPF 12/08/18 13:40 Random Vancomycin 15.9 ug/mL (0-40.0) 12/18/18 04:08 JEFFREY Screen Negative (Negative) 12/09/18 15:54 Blood Type B POSITIVE 12/20/18 11:00 Antibody Screen Negative 12/20/18 11:00 Crossmatch See Detail 12/20/18 11:00 Nutrition/Malnutrition Assess - Dietary Evaluation Nutrition/Malnutrition Findings: Nutrition Notes Start: 12/09/18 12:11 Freq: Status: Active Protocol: Document 12/16/18 15:56 [facility] (Rec: 12/16/18 16:00 [facility] [id number]) Nutrition Notes Initial or Follow up Reassessment Current Diagnosis Acute Kidney Injury,Sepsis, Respiratory Failure Other Pertinent Diagnosis Acute encephalopathy, Pericardial effusion Current Diet TF - Glucerna 1.2 at 50ml/hr Labs/Tests BUN 81 Cr 1.6 BG 161 Pertinent Medications Reviewed Height 5 ft 1 in Weight 60.3 kg [place] [employer] Body Weight (kg) 47.72 BMI 25.1 Weight change and time frame Current wt obtained from bed scale Subjective/Other Information Pt tolerating TF at goal rate, per RN. Pt remains on vent support. Percent of energy/protein needs met: 100% energy and pro Burn Absent Trauma Absent #1 Nutrition Diagnosis Inadequate oral intake Diagnosis Progress(for reassessment Continues documentation) Is patient on ventilator? Yes Is Patient Ambulatory and/or Out of Bed No REE-([place]-[facility]-confined to bed) 1183.980 Calculation Used for Recommendations [place] Additional Notes Pro needs 1.2-2g/k-121g/ day Fluid needs 1ml/kcal Nutrition Intervention Nutrition Support: Glucerna 1.2 at 50ml/hr Flush with 100ml q4h Kcal 1,440 Protein (gm) 72 Fluid (mL) 966 Goal #1 TF tolerance Goal #2 TF to meet at least 80% energy and pro needs Follow-Up By: 12/23/18 Additional Comments F/U: stable TF, vent status, wt
[2018-12-22 11:10] LABS: Platelet Count 26 K/mm3 (140-440)
--- NOTE | 2018-12-22 12:08 | Progress Note ---
Assessment and Plan 88 y/o female with acute respiratory failure, altered mental state, presumptive acute renal failure and hypotension with thrombocytopenia and dirty urine analysis. No new recs for today. The update listed below was from Thursday 12/21. CM will see this and know we need the documents to prove that grand daughter is POA and then we can have family meeting to discuss goals of care and decisions that need to be made. Update: I have now called the number [phone] twice in an attempt to speak with Maxi Pritchett as this is the number that was provided by the granddaughter who would be this person's daughter. No answer twice and when the voicemail comes up, Maxi Pritchett is not the name that is used to identify the person and the mailbox is full. Also, per the CM the granddaughter states that she is the POA but has not provided us with any paper work to confirm this. Overall prognosis remains extremely poor. Patient is at high risk for spontaneous bleed as well as cardiac arrest given current organ failures. She also has not woken up in the last 2 weeks. 1. Monitor BP 2. Continue feeds at low dose, will start titrating today. 3. Remains in renal failure with Cr slightly worse again today. 4. HgB down to 7. If drops below this would transfuse, especially with hypotension. Hanging on at 7 but if pressors are needed again, will suggest transfusion. Also with worsening renal failure, will likely need something like epogen if that is warranted. 5. Need family meeting soon. Hopeful to find someone who can place us in contact with the sons. Overall prognosis is extremely poor. Patient does not appear to be a candidate for HD and with persistent thrombocytopenia she is high risk for spontaneous bleed CCT 31 minutes. Subjective Date of service: 12/22/18 Principal diagnosis: coffee-ground drainage Interval history: No change in mental status. Hypothermic and now on kate hugger. Still no family present and I have no new numbers for the sons. Objective Vital Signs - 12hr 12/22/18 12/22/18 12/22/18 00:16 00:30 00:46 Temperature Pulse Rate 66 65 66 Pulse Rate [ Anterior Bilateral Throughout] Pulse Rate [ Apical] Pulse Rate [ From Monitor] Respiratory 37 H 18 18 Rate Respiratory Rate [Anterior Bilateral Throughout] Blood Pressure 159/32 145/34 159/40 O2 Sat by Pulse 99 99 100 Oximetry 12/22/18 12/22/18 12/22/18 01:00 01:15 01:30 Temperature Pulse Rate 68 64 62 Pulse Rate [ Anterior Bilateral Throughout] Pulse Rate [ Apical] Pulse Rate [ From Monitor] Respiratory 18 18 18 Rate Respiratory Rate [Anterior Bilateral Throughout] Blood Pressure 159/40 158/52 150/31 O2 Sat by Pulse 100 100 100 Oximetry 12/22/18 12/22/18 12/22/18 01:46 02:00 02:15 Temperature Pulse Rate 60 62 60 Pulse Rate [ Anterior Bilateral Throughout] Pulse Rate [ Apical] Pulse Rate [ From Monitor] Respiratory 18 18 18 Rate Respiratory Rate [Anterior Bilateral Throughout] Blood Pressure 144/30 144/30 140/38 O2 Sat by Pulse 100 100 100 Oximetry 12/22/18 12/22/18 12/22/18 02:23 02:30 02:38 Temperature Pulse Rate 60 Pulse Rate [ 60 62 Anterior Bilateral Throughout] Pulse Rate [ Apical] Pulse Rate [ From Monitor] Respiratory 18 Rate Respiratory 18 18 Rate [Anterior Bilateral Throughout] Blood Pressure 140/38 O2 Sat by Pulse 97 Oximetry 12/22/18 12/22/18 12/22/18 02:45 03:00 03:16 Temperature Pulse Rate 60 66 60 Pulse Rate [ Anterior Bilateral Throughout] Pulse Rate [ Apical] Pulse Rate [ From Monitor] Respiratory 18 18 18 Rate Respiratory Rate [Anterior Bilateral Throughout] Blood Pressure 156/38 156/38 136/37 O2 Sat by Pulse 100 100 100 Oximetry 12/22/18 12/22/18 12/22/18 03:30 03:46 04:00 Temperature 94.8 F L Pulse Rate 60 62 62 Pulse Rate [ Anterior Bilateral Throughout] Pulse Rate [ 70 Apical] Pulse Rate [ From Monitor] Respiratory 18 18 18 Rate Respiratory Rate [Anterior Bilateral Throughout] Blood Pressure 156/38 148/30 148/30 O2 Sat by Pulse 100 100 100 Oximetry 12/22/18 12/22/18 12/22/18 04:16 04:30 04:45 Temperature Pulse Rate 67 60 63 Pulse Rate [ Anterior Bilateral Throughout] Pulse Rate [ Apical] Pulse Rate [ From Monitor] Respiratory 18 18 18 Rate Respiratory Rate [Anterior Bilateral Throughout] Blood Pressure 155/41 155/41 169/48 O2 Sat by Pulse 100 100 100 Oximetry 12/22/18 12/22/18 12/22/18 05:00 05:16 05:30 Temperature Pulse Rate 60 64 60 Pulse Rate [ Anterior Bilateral Throughout] Pulse Rate [ Apical] Pulse Rate [ From Monitor] Respiratory 18 11 L 16 Rate Respiratory Rate [Anterior Bilateral Throughout] Blood Pressure 169/48 162/31 132/117 O2 Sat by Pulse 100 98 98 Oximetry 12/22/18 12/22/18 12/22/18 05:45 06:00 06:15 Temperature Pulse Rate 60 60 60 Pulse Rate [ Anterior Bilateral Throughout] Pulse Rate [ Apical] Pulse Rate [ From Monitor] Respiratory 15 18 18 Rate Respiratory Rate [Anterior Bilateral Throughout] Blood Pressure 139/43 139/43 152/43 O2 Sat by Pulse 99 99 99 Oximetry 12/22/18 12/22/18 12/22/18 06:30 06:46 07:00 Temperature Pulse Rate 60 60 65 Pulse Rate [ Anterior Bilateral Throughout] Pulse Rate [ Apical] Pulse Rate [ From Monitor] Respiratory 18 18 11 L Rate Respiratory Rate [Anterior Bilateral Throughout] Blood Pressure 152/43 137/43 137/43 O2 Sat by Pulse 100 99 99 Oximetry 12/22/18 12/22/18 12/22/18 07:16 07:30 07:45 Temperature Pulse Rate 60 60 60 Pulse Rate [ Anterior Bilateral Throughout] Pulse Rate [ Apical] Pulse Rate [ From Monitor] Respiratory 17 18 18 Rate Respiratory Rate [Anterior Bilateral Throughout] Blood Pressure 152/39 152/39 155/47 O2 Sat by Pulse 99 100 100 Oximetry 12/22/18 12/22/18 12/22/18 08:00 08:15 08:30 Temperature 94.8 F L Pulse Rate 60 60 59 L Pulse Rate [ Anterior Bilateral Throughout] Pulse Rate [ Apical] Pulse Rate [ 60 From Monitor] Respiratory 17 18 18 Rate Respiratory Rate [Anterior Bilateral Throughout] Blood Pressure 155/47 146/48 146/48 O2 Sat by Pulse 100 100 100 Oximetry 12/22/18 12/22/18 12/22/18 08:46 09:00 09:15 Temperature Pulse Rate 60 60 60 Pulse Rate [ Anterior Bilateral Throughout] Pulse Rate [ Apical] Pulse Rate [ From Monitor] Respiratory 18 18 18 Rate Respiratory Rate [Anterior Bilateral Throughout] Blood Pressure 125/22 125/22 138/39 O2 Sat by Pulse 100 100 100 Oximetry 12/22/18 12/22/18 12/22/18 09:30 09:45 10:00 Temperature Pulse Rate 61 60 64 Pulse Rate [ Anterior Bilateral Throughout] Pulse Rate [ Apical] Pulse Rate [ From Monitor] Respiratory 18 18 18 Rate Respiratory Rate [Anterior Bilateral Throughout] Blood Pressure 138/39 138/24 138/24 O2 Sat by Pulse 100 98 100 Oximetry 12/22/18 12/22/18 12/22/18 10:15 10:30 11:43 Temperature 97.5 F L Pulse Rate 60 60 Pulse Rate [ Anterior Bilateral Throughout] Pulse Rate [ Apical] Pulse Rate [ From Monitor] Respiratory 18 18 Rate Respiratory Rate [Anterior Bilateral Throughout] Blood Pressure 123/29 123/29 O2 Sat by Pulse 100 100 Oximetry Constitutional: no acute distress, comatose, other (on vent cmv) Eyes: non-icteric ENT: oropharynx moist, other (ETT in position,large tongue) Neck: supple, no JVD, other (right left IJ lines in place) Ascultation: Bilateral: clear, diminished breath sounds Cardiovascular: regular rate and rhythm, other (pacemaker rhythm) Gastrointestinal: normoactive bowel sounds, non-distended Integumentary: normal Extremities: no cyanosis, no edema, pink and warm Neurologic: pupils equal and round, other (comatose) CBC and BMP: 12/22/18 05:35 12/22/18 05:35 ABG, PT/INR, D-dimer: ABG POC ABG pH 7.325 (7.35-7.45) L 12/15/18 03:37 POC ABG pCO2 28.6 (35-45) L 12/15/18 03:37 POC ABG pO2 105 (80-105) 12/15/18 03:37 POC ABG HCO3 14.9 12/15/18 03:37 POC ABG Total CO2 16 12/15/18 03:37 POC ABG O2 Sat 98 12/15/18 03:37 PT/INR, D-dimer PT 20.2 Sec. (12.2-14.9) H 12/12/18 08:00 INR 1.61 (0.87-1.13) H 12/12/18 08:00 Abnormal lab findings: Abnormal Labs 12/08/18 12/08/18 12/08/18 12:58 13:40 13:40 WBC RBC Hgb Hct MCV MCH RDW Plt Count Lymph % (Auto) Lymph # Seg Neutrophils % Seg Neuts % (Manual) Lymphocytes % (Manual) Monocytes % (Manual) Nucleated RBC % Seg Neutrophils # Seg Neutrophils # Man Lymphocytes # (Manual) Monocytes # (Manual) PT INR POC ABG pH POC ABG pCO2 POC ABG pO2 Sodium Potassium Chloride Carbon Dioxide BUN Creatinine Glucose POC Glucose 143 H Lactic Acid Calcium Phosphorus Total Bilirubin AST Total Creatine Kinase C-Reactive Protein Total Protein Albumin TSH Free T4 Urine WBC (Auto) 157.0 H Crossmatch See Detail 12/08/18 12/08/18 12/08/18 13:40 13:40 13:40 WBC RBC 3.06 L Hgb 6.8 L Hct 21.1 L MCV 69 L MCH 22 L RDW 16.2 H Plt Count 56 L Lymph % (Auto) Lymph # Seg Neutrophils % Seg Neuts % (Manual) Lymphocytes % (Manual) 2.0 L Monocytes % (Manual) Nucleated RBC % Seg Neutrophils # Seg Neutrophils # Man Lymphocytes # (Manual) 0.2 L Monocytes # (Manual) PT INR POC ABG pH POC ABG pCO2 POC ABG pO2 Sodium Potassium 3.2 L Chloride Carbon Dioxide 18 L BUN 64 H Creatinine 1.5 H Glucose 145 H POC Glucose Lactic Acid 4.00 H* Calcium 7.7 L Phosphorus Total Bilirubin AST Total Creatine Kinase 258 H C-Reactive Protein Total Protein 4.6 L Albumin 1.8 L TSH Free T4 Urine WBC (Auto) Crossmatch 12/08/18 12/08/18 12/08/18 14:29 15:21 16:06 WBC RBC Hgb Hct MCV MCH RDW Plt Count Lymph % (Auto) Lymph # Seg Neutrophils % Seg Neuts % (Manual) Lymphocytes % (Manual) Monocytes % (Manual) Nucleated RBC % Seg Neutrophils # Seg Neutrophils # Man Lymphocytes # (Manual) Monocytes # (Manual) PT 20.5 H INR 1.64 H POC ABG pH POC ABG pCO2 34.2 L POC ABG pO2 465 H Sodium Potassium Chloride Carbon Dioxide BUN Creatinine Glucose POC Glucose Lactic Acid 3.00 H* Calcium Phosphorus Total Bilirubin AST Total Creatine Kinase C-Reactive Protein Total Protein Albumin TSH Free T4 Urine WBC (Auto) Crossmatch 12/09/18 12/09/18 12/09/18 02:31 05:36 05:36 WBC 14.5 H RBC Hgb Hct MCV 75 L MCH 25 L RDW 20.4 H Plt Count 68 L Lymph % (Auto) Lymph # Seg Neutrophils % Seg Neuts % (Manual) 81.0 H Lymphocytes % (Manual) 1.0 L Monocytes % (Manual) Nucleated RBC % Seg Neutrophils # Seg Neutrophils # Man 11.7 H Lymphocytes # (Manual) 0.1 L Monocytes # (Manual) PT INR POC ABG pH POC ABG pCO2 POC ABG pO2 Sodium Potassium Chloride 107.6 H Carbon Dioxide 18 L BUN 75 H Creatinine 1.9 H Glucose 136 H POC Glucose 152 H Lactic Acid Calcium 7.9 L Phosphorus Total Bilirubin 1.60 H AST 44 H Total Creatine Kinase C-Reactive Protein Total Protein 5.2 L Albumin 2.4 L TSH Free T4 Urine WBC (Auto) Crossmatch 12/09/18 12/09/18 12/09/18 05:43 10:47 13:46 WBC RBC Hgb Hct MCV MCH RDW Plt Count Lymph % (Auto) Lymph # Seg Neutrophils % Seg Neuts % (Manual) Lymphocytes % (Manual) Monocytes % (Manual) Nucleated RBC % Seg Neutrophils # Seg Neutrophils # Man Lymphocytes # (Manual) Monocytes # (Manual) PT INR POC ABG pH 7.308 L POC ABG pCO2 POC ABG pO2 183 H Sodium Potassium Chloride Carbon Dioxide BUN Creatinine Glucose POC Glucose 150 H 162 H Lactic Acid Calcium Phosphorus Total Bilirubin AST Total Creatine Kinase C-Reactive Protein Total Protein Albumin TSH Free T4 Urine WBC (Auto) Crossmatch 12/09/18 12/09/18 12/09/18 15:54 15:54 16:40 WBC RBC Hgb Hct MCV MCH RDW Plt Count Lymph % (Auto) Lymph # Seg Neutrophils % Seg Neuts % (Manual) Lymphocytes % (Manual) Monocytes % (Manual) Nucleated RBC % Seg Neutrophils # Seg Neutrophils # Man Lymphocytes # (Manual) Monocytes # (Manual) PT INR POC ABG pH POC ABG pCO2 POC ABG pO2 Sodium Potassium Chloride Carbon Dioxide BUN Creatinine Glucose POC Glucose 197 H Lactic Acid Calcium Phosphorus Total Bilirubin AST Total Creatine Kinase C-Reactive Protein Total Protein Albumin TSH 0.268 L Free T4 0.58 L Urine WBC (Auto) Crossmatch 12/09/18 12/09/18 12/09/18 18:18 18:18 21:51 WBC RBC Hgb Hct MCV MCH RDW Plt Count Lymph % (Auto) Lymph # Seg Neutrophils % Seg Neuts % (Manual) Lymphocytes % (Manual) Monocytes % (Manual) Nucleated RBC % Seg Neutrophils # Seg Neutrophils # Man Lymphocytes # (Manual) Monocytes # (Manual) PT INR POC ABG pH POC ABG pCO2 POC ABG pO2 Sodium Potassium Chloride 108.2 H Carbon Dioxide 16 L BUN 89 H Creatinine 2.3 H Glucose 180 H POC Glucose 198 H Lactic Acid Calcium 7.9 L Phosphorus Total Bilirubin AST Total Creatine Kinase C-Reactive Protein 19.60 H Total Protein Albumin TSH Free T4 Urine WBC (Auto) Crossmatch 12/10/18 12/10/18 12/10/18 01:59 04:14 04:38 WBC 11.5 H RBC Hgb Hct MCV 75 L MCH 25 L RDW 21.1 H Plt Count 81 L Lymph % (Auto) 5.6 L Lymph # 0.6 L Seg Neutrophils % 89.8 H Seg Neuts % (Manual) Lymphocytes % (Manual) Monocytes % (Manual) Nucleated RBC % Seg Neutrophils # 10.3 H Seg Neutrophils # Man Lymphocytes # (Manual) Monocytes # (Manual) PT INR POC ABG pH 7.273 L POC ABG pCO2 32.1 L POC ABG pO2 161 H Sodium Potassium Chloride Carbon Dioxide BUN Creatinine Glucose POC Glucose 219 H Lactic Acid Calcium Phosphorus Total Bilirubin AST Total Creatine Kinase C-Reactive Protein Total Protein Albumin TSH Free T4 Urine WBC (Auto) Crossmatch 12/10/18 12/10/18 12/10/18 04:38 05:07 07:26 WBC RBC Hgb Hct MCV MCH RDW Plt Count Lymph % (Auto) Lymph # Seg Neutrophils % Seg Neuts % (Manual) Lymphocytes % (Manual) Monocytes % (Manual) Nucleated RBC % Seg Neutrophils # Seg Neutrophils # Man Lymphocytes # (Manual) Monocytes # (Manual) PT INR POC ABG pH POC ABG pCO2 POC ABG pO2 Sodium Potassium Chloride 112.5 H Carbon Dioxide 14 L BUN 94 H Creatinine 2.4 H Glucose 207 H POC Glucose 221 H 212 H Lactic Acid Calcium 7.7 L Phosphorus Total Bilirubin AST Total Creatine Kinase C-Reactive Protein Total Protein Albumin TSH Free T4 Urine WBC (Auto) Crossmatch 12/10/18 12/10/18 12/10/18 10:40 11:15 14:21 WBC RBC Hgb Hct MCV MCH RDW Plt Count Lymph % (Auto) Lymph # Seg Neutrophils % Seg Neuts % (Manual) Lymphocytes % (Manual) Monocytes % (Manual) Nucleated RBC % Seg Neutrophils # Seg Neutrophils # Man Lymphocytes # (Manual) Monocytes # (Manual) PT 21.4 H INR 1.73 H POC ABG pH 7.214 L POC ABG pCO2 32.8 L POC ABG pO2 Sodium Potassium Chloride Carbon Dioxide BUN Creatinine Glucose POC Glucose 227 H Lactic Acid Calcium Phosphorus Total Bilirubin AST Total Creatine Kinase C-Reactive Protein Total Protein Albumin TSH Free T4 Urine WBC (Auto) Crossmatch 12/10/18 12/10/18 12/11/18 15:47 22:38 03:36 WBC RBC Hgb Hct MCV MCH RDW Plt Count Lymph % (Auto) Lymph # Seg Neutrophils % Seg Neuts % (Manual) Lymphocytes % (Manual) Monocytes % (Manual) Nucleated RBC % Seg Neutrophils # Seg Neutrophils # Man Lymphocytes # (Manual) Monocytes # (Manual) PT INR POC ABG pH POC ABG pCO2 26.2 L POC ABG pO2 138 H Sodium Potassium Chloride Carbon Dioxide BUN Creatinine Glucose POC Glucose 202 H 259 H Lactic Acid Calcium Phosphorus Total Bilirubin AST Total Creatine Kinase C-Reactive Protein Total Protein Albumin TSH Free T4 Urine WBC (Auto) Crossmatch 12/11/18 12/11/18 12/11/18 04:12 05:00 06:19 WBC RBC Hgb Hct MCV MCH RDW Plt Count Lymph % (Auto) Lymph # Seg Neutrophils % Seg Neuts % (Manual) Lymphocytes % (Manual) Monocytes % (Manual) Nucleated RBC % Seg Neutrophils # Seg Neutrophils # Man Lymphocytes # (Manual) Monocytes # (Manual) PT 19.5 H INR 1.54 H POC ABG pH POC ABG pCO2 24.6 L POC ABG pO2 119 H Sodium Potassium Chloride Carbon Dioxide BUN Creatinine Glucose POC Glucose 174 H Lactic Acid Calcium Phosphorus Total Bilirubin AST Total Creatine Kinase C-Reactive Protein Total Protein Albumin TSH Free T4 Urine WBC (Auto) Crossmatch 12/11/18 12/11/18 12/11/18 11:10 11:10 18:10 WBC 14.3 H RBC Hgb Hct MCV 73 L MCH 24 L RDW 21.5 H Plt Count Lymph % (Auto) Lymph # Seg Neutrophils % Seg Neuts % (Manual) Lymphocytes % (Manual) Monocytes % (Manual) Nucleated RBC % Seg Neutrophils # Seg Neutrophils # Man Lymphocytes # (Manual) Monocytes # (Manual) PT INR POC ABG pH POC ABG pCO2 POC ABG pO2 Sodium Potassium Chloride 110.5 H Carbon Dioxide 15 L BUN 101 H Creatinine 2.4 H Glucose 119 H POC Glucose 147 H Lactic Acid Calcium 7.7 L Phosphorus Total Bilirubin AST Total Creatine Kinase C-Reactive Protein Total Protein Albumin TSH Free T4 Urine WBC (Auto) Crossmatch 12/11/18 12/12/18 12/12/18 23:25 05:37 06:03 WBC RBC Hgb Hct MCV MCH RDW Plt Count Lymph % (Auto) Lymph # Seg Neutrophils % Seg Neuts % (Manual) Lymphocytes % (Manual) Monocytes % (Manual) Nucleated RBC % Seg Neutrophils # Seg Neutrophils # Man Lymphocytes # (Manual) Monocytes # (Manual) PT INR POC ABG pH 7.346 L POC ABG pCO2 28.3 L POC ABG pO2 120 H Sodium Potassium Chloride Carbon Dioxide BUN Creatinine Glucose POC Glucose 143 H 154 H Lactic Acid Calcium Phosphorus Total Bilirubin AST Total Creatine Kinase C-Reactive Protein Total Protein Albumin TSH Free T4 Urine WBC (Auto) Crossmatch 12/12/18 12/12/18 12/12/18 08:00 08:00 08:00 WBC 16.2 H RBC Hgb Hct MCV 74 L MCH 25 L RDW 21.9 H Plt Count 21 L Lymph % (Auto) Lymph # Seg Neutrophils % Seg Neuts % (Manual) Lymphocytes % (Manual) Monocytes % (Manual) Nucleated RBC % Seg Neutrophils # Seg Neutrophils # Man Lymphocytes # (Manual) Monocytes # (Manual) PT 20.2 H INR 1.61 H POC ABG pH POC ABG pCO2 POC ABG pO2 Sodium Potassium Chloride 107.4 H Carbon Dioxide 16 L BUN 101 H Creatinine 2.3 H Glucose 169 H POC Glucose Lactic Acid Calcium 8.2 L Phosphorus Total Bilirubin AST Total Creatine Kinase C-Reactive Protein Total Protein Albumin TSH Free T4 Urine WBC (Auto) Crossmatch 12/12/18 12/12/18 12/13/18 12:59 18:01 04:28 WBC 18.6 H RBC Hgb Hct MCV 74 L MCH 24 L RDW 21.8 H Plt Count 34 L Lymph % (Auto) Lymph # Seg Neutrophils % Seg Neuts % (Manual) 97.0 H Lymphocytes % (Manual) 2.0 L Monocytes % (Manual) Nucleated RBC % 1.0 H Seg Neutrophils # Seg Neutrophils # Man 18.0 H Lymphocytes # (Manual) 0.4 L Monocytes # (Manual) PT INR POC ABG pH POC ABG pCO2 POC ABG pO2 Sodium Potassium Chloride Carbon Dioxide BUN Creatinine Glucose POC Glucose 158 H 123 H Lactic Acid Calcium Phosphorus Total Bilirubin AST Total Creatine Kinase C-Reactive Protein Total Protein Albumin TSH Free T4 Urine WBC (Auto) Crossmatch 12/13/18 12/13/18 12/13/18 04:28 04:45 19:17 WBC RBC Hgb Hct MCV MCH RDW Plt Count Lymph % (Auto) Lymph # Seg Neutrophils % Seg Neuts % (Manual) Lymphocytes % (Manual) Monocytes % (Manual) Nucleated RBC % Seg Neutrophils # Seg Neutrophils # Man Lymphocytes # (Manual) Monocytes # (Manual) PT INR POC ABG pH 7.327 L POC ABG pCO2 31.1 L POC ABG pO2 136 H Sodium Potassium Chloride 112.0 H Carbon Dioxide 17 L BUN 97 H Creatinine 2.2 H Glucose POC Glucose 106 H Lactic Acid Calcium 8.1 L Phosphorus Total Bilirubin AST Total Creatine Kinase C-Reactive Protein Total Protein Albumin TSH Free T4 Urine WBC (Auto) Crossmatch 12/13/18 12/14/18 12/14/18 23:24 03:35 03:35 WBC 22.0 H RBC Hgb Hct MCV 75 L MCH 24 L RDW 22.2 H Plt Count 44 L Lymph % (Auto) Lymph # Seg Neutrophils % Seg Neuts % (Manual) 96.0 H Lymphocytes % (Manual) 3.0 L Monocytes % (Manual) Nucleated RBC % Seg Neutrophils # Seg Neutrophils # Man 21.1 H Lymphocytes # (Manual) 0.7 L Monocytes # (Manual) PT INR POC ABG pH POC ABG pCO2 POC ABG pO2 Sodium 136 L Potassium Chloride 107.2 H Carbon Dioxide 15 L BUN 87 H Creatinine 1.7 H Glucose 156 H POC Glucose 108 H Lactic Acid Calcium 7.7 L Phosphorus Total Bilirubin AST Total Creatine Kinase C-Reactive Protein Total Protein Albumin TSH Free T4 Urine WBC (Auto) Crossmatch 12/14/18 12/14/18 12/14/18 04:58 05:37 12:10 WBC RBC Hgb Hct MCV MCH RDW Plt Count Lymph % (Auto) Lymph # Seg Neutrophils % Seg Neuts % (Manual) Lymphocytes % (Manual) Monocytes % (Manual) Nucleated RBC % Seg Neutrophils # Seg Neutrophils # Man Lymphocytes # (Manual) Monocytes # (Manual) PT INR POC ABG pH 7.301 L POC ABG pCO2 32.6 L POC ABG pO2 138 H Sodium Potassium Chloride Carbon Dioxide BUN Creatinine Glucose POC Glucose 178 H 208 H Lactic Acid Calcium Phosphorus Total Bilirubin AST Total Creatine Kinase C-Reactive Protein Total Protein Albumin TSH Free T4 Urine WBC (Auto) Crossmatch 12/14/18 12/14/18 12/15/18 17:44 23:16 03:37 WBC RBC Hgb Hct MCV MCH RDW Plt Count Lymph % (Auto) Lymph # Seg Neutrophils % Seg Neuts % (Manual) Lymphocytes % (Manual) Monocytes % (Manual) Nucleated RBC % Seg Neutrophils # Seg Neutrophils # Man Lymphocytes # (Manual) Monocytes # (Manual) PT INR POC ABG pH 7.325 L POC ABG pCO2 28.6 L POC ABG pO2 Sodium Potassium Chloride Carbon Dioxide BUN Creatinine Glucose POC Glucose 172 H 123 H Lactic Acid Calcium Phosphorus Total Bilirubin AST Total Creatine Kinase C-Reactive Protein Total Protein Albumin TSH Free T4 Urine WBC (Auto) Crossmatch 12/15/18 12/15/18 12/15/18 05:30 05:30 05:43 WBC 20.1 H RBC Hgb 9.5 L Hct 29.2 L MCV 74 L MCH 24 L RDW 22.7 H Plt Count 48 L Lymph % (Auto) Lymph # Seg Neutrophils % Seg Neuts % (Manual) 96.0 H Lymphocytes % (Manual) 1.0 L Monocytes % (Manual) Nucleated RBC % Seg Neutrophils # Seg Neutrophils # Man 19.3 H Lymphocytes # (Manual) 0.2 L Monocytes # (Manual) PT INR POC ABG pH POC ABG pCO2 POC ABG pO2 Sodium Potassium Chloride 110.8 H Carbon Dioxide 17 L BUN 83 H Creatinine 1.6 H Glucose 150 H POC Glucose 151 H Lactic Acid Calcium 7.7 L Phosphorus Total Bilirubin AST Total Creatine Kinase C-Reactive Protein Total Protein Albumin TSH Free T4 Urine WBC (Auto) Crossmatch 12/15/18 12/15/18 12/16/18 12:56 18:21 00:10 WBC RBC Hgb Hct MCV MCH RDW Plt Count Lymph % (Auto) Lymph # Seg Neutrophils % Seg Neuts % (Manual) Lymphocytes % (Manual) Monocytes % (Manual) Nucleated RBC % Seg Neutrophils # Seg Neutrophils # Man Lymphocytes # (Manual) Monocytes # (Manual) PT INR POC ABG pH POC ABG pCO2 POC ABG pO2 Sodium Potassium Chloride Carbon Dioxide BUN Creatinine Glucose POC Glucose 190 H 143 H 174 H Lactic Acid Calcium Phosphorus Total Bilirubin AST Total Creatine Kinase C-Reactive Protein Total Protein Albumin TSH Free T4 Urine WBC (Auto) Crossmatch 12/16/18 12/16/18 12/16/18 05:24 05:30 05:30 WBC 17.1 H RBC Hgb 9.1 L Hct 28.8 L MCV 76 L MCH 24 L RDW 23.5 H Plt Count 37 L Lymph % (Auto) Lymph # Seg Neutrophils % Seg Neuts % (Manual) Lymphocytes % (Manual) 9.0 L Monocytes % (Manual) 9.0 H Nucleated RBC % Seg Neutrophils # Seg Neutrophils # Man 9.6 H Lymphocytes # (Manual) Monocytes # (Manual) 1.5 H PT INR POC ABG pH POC ABG pCO2 POC ABG pO2 Sodium Potassium Chloride 110.8 H Carbon Dioxide 15 L BUN 81 H Creatinine 1.6 H Glucose 161 H POC Glucose 154 H Lactic Acid Calcium 7.6 L Phosphorus Total Bilirubin AST Total Creatine Kinase C-Reactive Protein Total Protein Albumin TSH Free T4 Urine WBC (Auto) Crossmatch 12/16/18 12/16/18 12/16/18 12:31 17:42 21:56 WBC RBC Hgb Hct MCV MCH RDW Plt Count Lymph % (Auto) Lymph # Seg Neutrophils % Seg Neuts % (Manual) Lymphocytes % (Manual) Monocytes % (Manual) Nucleated RBC % Seg Neutrophils # Seg Neutrophils # Man Lymphocytes # (Manual) Monocytes # (Manual) PT INR POC ABG pH POC ABG pCO2 POC ABG pO2 Sodium Potassium Chloride Carbon Dioxide BUN Creatinine Glucose POC Glucose 172 H 173 H 118 H Lactic Acid Calcium Phosphorus Total Bilirubin AST Total Creatine Kinase C-Reactive Protein Total Protein Albumin TSH Free T4 Urine WBC (Auto) Crossmatch 12/16/18 12/17/18 12/17/18 23:38 04:24 04:24 WBC 19.2 H RBC Hgb 9.5 L Hct 29.7 L MCV 76 L MCH 24 L RDW 24.4 H Plt Count 26 L Lymph % (Auto) Lymph # Seg Neutrophils % Seg Neuts % (Manual) Lymphocytes % (Manual) 6.0 L Monocytes % (Manual) Nucleated RBC % Seg Neutrophils # Seg Neutrophils # Man 13.1 H Lymphocytes # (Manual) Monocytes # (Manual) PT INR POC ABG pH POC ABG pCO2 POC ABG pO2 Sodium 134 L Potassium Chloride 110.0 H Carbon Dioxide 14 L BUN 83 H Creatinine 1.6 H Glucose POC Glucose 109 H Lactic Acid Calcium 7.8 L Phosphorus Total Bilirubin AST Total Creatine Kinase C-Reactive Protein Total Protein Albumin TSH Free T4 Urine WBC (Auto) Crossmatch 12/17/18 12/17/18 12/18/18 06:42 17:49 00:40 WBC RBC Hgb Hct MCV MCH RDW Plt Count Lymph % (Auto) Lymph # Seg Neutrophils % Seg Neuts % (Manual) Lymphocytes % (Manual) Monocytes % (Manual) Nucleated RBC % Seg Neutrophils # Seg Neutrophils # Man Lymphocytes # (Manual) Monocytes # (Manual) PT INR POC ABG pH POC ABG pCO2 POC ABG pO2 Sodium Potassium Chloride 113.1 H Carbon Dioxide 13 L BUN 82 H Creatinine 1.6 H Glucose POC Glucose 66 L 109 H Lactic Acid Calcium 8.0 L Phosphorus Total Bilirubin AST Total Creatine Kinase C-Reactive Protein Total Protein Albumin TSH Free T4 Urine WBC (Auto) Crossmatch 12/18/18 12/18/18 12/18/18 04:08 04:08 12:45 WBC 26.5 H RBC 3.63 L Hgb 8.7 L Hct 26.8 L MCV 74 L MCH 24 L RDW 23.3 H Plt Count 24 L Lymph % (Auto) Lymph # Seg Neutrophils % Seg Neuts % (Manual) Lymphocytes % (Manual) Monocytes % (Manual) Nucleated RBC % Seg Neutrophils # Seg Neutrophils # Man Lymphocytes # (Manual) Monocytes # (Manual) PT INR POC ABG pH POC ABG pCO2 POC ABG pO2 Sodium Potassium Chloride 114.3 H Carbon Dioxide 16 L BUN 82 H Creatinine 1.7 H Glucose POC Glucose 117 H Lactic Acid Calcium 7.8 L Phosphorus 5.10 H Total Bilirubin AST Total Creatine Kinase C-Reactive Protein Total Protein Albumin TSH Free T4 Urine WBC (Auto) Crossmatch 12/18/18 12/18/18 12/19/18 17:42 23:39 04:22 WBC 20.4 H RBC 3.01 L Hgb 7.2 L Hct 22.6 L MCV 75 L MCH 24 L RDW 24.5 H Plt Count 52 L D Lymph % (Auto) Lymph # Seg Neutrophils % Seg Neuts % (Manual) Lymphocytes % (Manual) Monocytes % (Manual) Nucleated RBC % Seg Neutrophils # Seg Neutrophils # Man Lymphocytes # (Manual) Monocytes # (Manual) PT INR POC ABG pH POC ABG pCO2 POC ABG pO2 Sodium Potassium Chloride Carbon Dioxide BUN Creatinine Glucose POC Glucose 121 H 184 H Lactic Acid Calcium Phosphorus Total Bilirubin AST Total Creatine Kinase C-Reactive Protein Total Protein Albumin TSH Free T4 Urine WBC (Auto) Crossmatch 12/19/18 12/19/18 12/19/18 04:22 12:43 18:12 WBC RBC Hgb Hct MCV MCH RDW Plt Count Lymph % (Auto) Lymph # Seg Neutrophils % Seg Neuts % (Manual) Lymphocytes % (Manual) Monocytes % (Manual) Nucleated RBC % Seg Neutrophils # Seg Neutrophils # Man Lymphocytes # (Manual) Monocytes # (Manual) PT INR POC ABG pH POC ABG pCO2 POC ABG pO2 Sodium Potassium Chloride 112.9 H Carbon Dioxide 15 L BUN 76 H Creatinine 1.8 H Glucose 107 H POC Glucose 141 H 227 H Lactic Acid Calcium 7.4 L Phosphorus Total Bilirubin AST Total Creatine Kinase C-Reactive Protein Total Protein Albumin TSH Free T4 Urine WBC (Auto) Crossmatch 12/19/18 12/19/18 12/20/18 23:55 Unknown 03:07 WBC 15.7 H RBC 2.92 L Hgb 7.2 L 7.1 L Hct 22.2 L 21.6 L MCV 74 L MCH 24 L RDW 24.3 H Plt Count 23 L Lymph % (Auto) Lymph # Seg Neutrophils % Seg Neuts % (Manual) Lymphocytes % (Manual) Monocytes % (Manual) Nucleated RBC % Seg Neutrophils # Seg Neutrophils # Man Lymphocytes # (Manual) Monocytes # (Manual) PT INR POC ABG pH POC ABG pCO2 POC ABG pO2 Sodium Potassium Chloride Carbon Dioxide BUN Creatinine Glucose POC Glucose 174 H Lactic Acid Calcium Phosphorus Total Bilirubin AST Total Creatine Kinase C-Reactive Protein Total Protein Albumin TSH Free T4 Urine WBC (Auto) Crossmatch 12/20/18 12/20/18 12/20/18 03:07 05:20 11:00 WBC RBC Hgb Hct MCV MCH RDW Plt Count Lymph % (Auto) Lymph # Seg Neutrophils % Seg Neuts % (Manual) Lymphocytes % (Manual) Monocytes % (Manual) Nucleated RBC % Seg Neutrophils # Seg Neutrophils # Man Lymphocytes # (Manual) Monocytes # (Manual) PT INR POC ABG pH POC ABG pCO2 POC ABG pO2 Sodium 136 L Potassium Chloride Carbon Dioxide 20 L BUN 79 H Creatinine 2.1 H Glucose 141 H POC Glucose 210 H Lactic Acid Calcium 7.5 L Phosphorus Total Bilirubin AST Total Creatine Kinase C-Reactive Protein Total Protein Albumin TSH Free T4 Urine WBC (Auto) Crossmatch See Detail 12/20/18 12/20/18 12/21/18 11:40 17:51 00:33 WBC RBC Hgb Hct MCV MCH RDW Plt Count Lymph % (Auto) Lymph # Seg Neutrophils % Seg Neuts % (Manual) Lymphocytes % (Manual) Monocytes % (Manual) Nucleated RBC % Seg Neutrophils # Seg Neutrophils # Man Lymphocytes # (Manual) Monocytes # (Manual) PT INR POC ABG pH POC ABG pCO2 POC ABG pO2 Sodium Potassium Chloride Carbon Dioxide BUN Creatinine Glucose POC Glucose 183 H 150 H 119 H Lactic Acid Calcium Phosphorus Total Bilirubin AST Total Creatine Kinase C-Reactive Protein Total Protein Albumin TSH Free T4 Urine WBC (Auto) Crossmatch 12/21/18 12/21/18 12/21/18 05:05 07:19 07:19 WBC 11.9 H RBC 2.83 L Hgb 6.9 L Hct 20.7 L MCV 73 L MCH 24 L RDW 23.9 H Plt Count 11 L* Lymph % (Auto) Lymph # Seg Neutrophils % Seg Neuts % (Manual) Lymphocytes % (Manual) Monocytes % (Manual) Nucleated RBC % Seg Neutrophils # Seg Neutrophils # Man Lymphocytes # (Manual) Monocytes # (Manual) PT INR POC ABG pH POC ABG pCO2 POC ABG pO2 Sodium 135 L Potassium Chloride Carbon Dioxide 21 L BUN 78 H Creatinine 2.3 H Glucose 143 H POC Glucose 165 H Lactic Acid Calcium 7.3 L Phosphorus Total Bilirubin AST Total Creatine Kinase C-Reactive Protein Total Protein Albumin TSH Free T4 Urine WBC (Auto) Crossmatch 12/21/18 12/21/18 12/21/18 11:55 17:39 18:00 WBC RBC Hgb 7.9 L Hct 23.8 L MCV MCH RDW Plt Count Lymph % (Auto) Lymph # Seg Neutrophils % Seg Neuts % (Manual) Lymphocytes % (Manual) Monocytes % (Manual) Nucleated RBC % Seg Neutrophils # Seg Neutrophils # Man Lymphocytes # (Manual) Monocytes # (Manual) PT INR POC ABG pH POC ABG pCO2 POC ABG pO2 Sodium Potassium Chloride Carbon Dioxide BUN Creatinine Glucose POC Glucose 125 H 108 H Lactic Acid Calcium Phosphorus Total Bilirubin AST Total Creatine Kinase C-Reactive Protein Total Protein Albumin TSH Free T4 Urine WBC (Auto) Crossmatch 12/21/18 12/22/18 12/22/18 23:55 05:35 05:35 WBC 11.8 H RBC Hgb 9.4 L Hct 28.3 L MCV 76 L MCH 25 L RDW 24.5 H Plt Count 26 L D Lymph % (Auto) Lymph # Seg Neutrophils % Seg Neuts % (Manual) Lymphocytes % (Manual) Monocytes % (Manual) Nucleated RBC % Seg Neutrophils # Seg Neutrophils # Man Lymphocytes # (Manual) Monocytes # (Manual) PT INR POC ABG pH POC ABG pCO2 POC ABG pO2 Sodium 132 L Potassium Chloride Carbon Dioxide 21 L BUN 79 H Creatinine 2.3 H Glucose 131 H POC Glucose 126 H Lactic Acid Calcium 7.4 L Phosphorus Total Bilirubin AST Total Creatine Kinase C-Reactive Protein Total Protein Albumin TSH Free T4 Urine WBC (Auto) Crossmatch 12/22/18 11:39 WBC RBC Hgb Hct MCV MCH RDW Plt Count Lymph % (Auto) Lymph # Seg Neutrophils % Seg Neuts % (Manual) Lymphocytes % (Manual) Monocytes % (Manual) Nucleated RBC % Seg Neutrophils # Seg Neutrophils # Man Lymphocytes # (Manual) Monocytes # (Manual) PT INR POC ABG pH POC ABG pCO2 POC ABG pO2 Sodium Potassium Chloride Carbon Dioxide BUN Creatinine Glucose POC Glucose 176 H Lactic Acid Calcium Phosphorus Total Bilirubin AST Total Creatine Kinase C-Reactive Protein Total Protein Albumin TSH Free T4 Urine WBC (Auto) Crossmatch Allied health notes reviewed: nursing
--- NOTE | 2018-12-22 14:42 | Progress Note ---
Assessment and Plan - Patient Problems (1) Acute kidney failure with tubular necrosis Current Visit: Yes Status: Acute Plan to address problem: Kidney function is not significantly changed. Patient has peripheral edema. Patient's prognosis is poor. Follow-up electrolytes and renal function (2) Sepsis Current Visit: Yes Status: Acute Qualifiers: Sepsis type: sepsis due to unspecified organism Qualified Code(s): A41.9 - Sepsis, unspecified organism Plan to address problem: Sepsis secondary to urinary tract infections versus right otitis media/mastoiditis versus meningitis/encephalitis. Unable to get an LP due to the thrombocytopenia. Leukocytosis is now improving. Thrombocytopenia was also worsening but is better today. Continue antibiotics per infectious disease. Poor prognosis (3) Acidosis Current Visit: Yes Status: Acute Plan to address problem: Bicarbonate is improving. Continue supplements. (4) Acute encephalopathy Current Visit: Yes Status: Acute Plan to address problem: Toxic/metabolic encephalopathy. Still unresponsive. Continue to monitor mental status. (5) Acute post-hemorrhagic anemia Current Visit: Yes Status: Acute Plan to address problem: Follow-up hemoglobin (6) Acute respiratory failure with hypoxia Current Visit: Yes Status: Acute Plan to address problem: Continue ventilator management by pulmonary (7) Pericardial effusion without cardiac tamponade Current Visit: Yes Status: Acute Plan to address problem: Follow-up by billet straightener Subjective Date of service: 12/22/18 Principal diagnosis: coffee-ground drainage Interval history: Patient seen lying in bed. No family at the bedside. Patient is still unresponsive. Objective - Exam Narrative Exam: Elderly -[place] female lying in bed intubated on the ventilator AC 350/18/25% P 6 HEENT: NCAT, endotracheal tube intact, tongue protruding Neck: Supple, no venous distention CVS: S1S2 RRR with no murmur, rub or gallop Chest: Clear to auscultation Abdomen: Protuberant, soft, nontender, no organomegaly, bowel sounds are present Extremities: 2+ edema Skin is warm and dry Genitourinary deferred Neuro: Does not open eyes, not following commands - Vital Signs Vital signs: Vital Signs - 12hr 12/22/18 12/22/18 12/22/18 02:45 03:00 03:16 Temperature Pulse Rate 60 66 60 Pulse Rate [ Apical] Pulse Rate [ From Monitor] Respiratory 18 18 18 Rate Blood Pressure 156/38 156/38 136/37 O2 Sat by Pulse 100 100 100 Oximetry 12/22/18 12/22/18 12/22/18 03:30 03:46 04:00 Temperature 94.8 F L Pulse Rate 60 62 62 Pulse Rate [ 70 Apical] Pulse Rate [ From Monitor] Respiratory 18 18 18 Rate Blood Pressure 156/38 148/30 148/30 O2 Sat by Pulse 100 100 100 Oximetry 12/22/18 12/22/18 12/22/18 04:16 04:30 04:45 Temperature Pulse Rate 67 60 63 Pulse Rate [ Apical] Pulse Rate [ From Monitor] Respiratory 18 18 18 Rate Blood Pressure 155/41 155/41 169/48 O2 Sat by Pulse 100 100 100 Oximetry 12/22/18 12/22/18 12/22/18 05:00 05:16 05:30 Temperature Pulse Rate 60 64 60 Pulse Rate [ Apical] Pulse Rate [ From Monitor] Respiratory 18 11 L 16 Rate Blood Pressure 169/48 162/31 132/117 O2 Sat by Pulse 100 98 98 Oximetry 12/22/18 12/22/18 12/22/18 05:45 06:00 06:15 Temperature Pulse Rate 60 60 60 Pulse Rate [ Apical] Pulse Rate [ From Monitor] Respiratory 15 18 18 Rate Blood Pressure 139/43 139/43 152/43 O2 Sat by Pulse 99 99 99 Oximetry 12/22/18 12/22/18 12/22/18 06:30 06:46 07:00 Temperature Pulse Rate 60 60 65 Pulse Rate [ Apical] Pulse Rate [ From Monitor] Respiratory 18 18 11 L Rate Blood Pressure 152/43 137/43 137/43 O2 Sat by Pulse 100 99 99 Oximetry 12/22/18 12/22/18 12/22/18 07:16 07:30 07:45 Temperature Pulse Rate 60 60 60 Pulse Rate [ Apical] Pulse Rate [ From Monitor] Respiratory 17 18 18 Rate Blood Pressure 152/39 152/39 155/47 O2 Sat by Pulse 99 100 100 Oximetry 12/22/18 12/22/18 12/22/18 08:00 08:15 08:30 Temperature 94.8 F L Pulse Rate 60 60 59 L Pulse Rate [ Apical] Pulse Rate [ 60 From Monitor] Respiratory 17 18 18 Rate Blood Pressure 155/47 146/48 146/48 O2 Sat by Pulse 100 100 100 Oximetry 12/22/18 12/22/18 12/22/18 08:46 09:00 09:15 Temperature Pulse Rate 60 60 60 Pulse Rate [ Apical] Pulse Rate [ From Monitor] Respiratory 18 18 18 Rate Blood Pressure 125/22 125/22 138/39 O2 Sat by Pulse 100 100 100 Oximetry 12/22/18 12/22/18 12/22/18 09:30 09:45 10:00 Temperature Pulse Rate 61 60 64 Pulse Rate [ Apical] Pulse Rate [ From Monitor] Respiratory 18 18 18 Rate Blood Pressure 138/39 138/24 138/24 O2 Sat by Pulse 100 98 100 Oximetry 12/22/18 12/22/18 12/22/18 10:13 10:15 10:30 Temperature Pulse Rate 60 60 60 Pulse Rate [ Apical] Pulse Rate [ From Monitor] Respiratory 18 18 Rate Blood Pressure 123/29 123/29 123/29 O2 Sat by Pulse 98 100 100 Oximetry 12/22/18 12/22/18 12/22/18 10:45 11:00 11:15 Temperature Pulse Rate 60 60 62 Pulse Rate [ Apical] Pulse Rate [ From Monitor] Respiratory 18 18 18 Rate Blood Pressure 129/29 130/32 130/25 O2 Sat by Pulse 100 100 100 Oximetry 12/22/18 12/22/18 12/22/18 11:30 11:43 11:45 Temperature 97.5 F L Pulse Rate 64 65 Pulse Rate [ Apical] Pulse Rate [ From Monitor] Respiratory 17 20 Rate Blood Pressure 130/25 151/26 O2 Sat by Pulse 97 96 Oximetry 12/22/18 12/22/18 12/22/18 12:00 12:16 12:20 Temperature Pulse Rate 65 68 71 Pulse Rate [ Apical] Pulse Rate [ 65 From Monitor] Respiratory 18 19 Rate Blood Pressure 142/28 127/32 127/32 O2 Sat by Pulse 96 98 98 Oximetry 12/22/18 12/22/18 12/22/18 12:30 12:45 13:00 Temperature Pulse Rate 69 72 72 Pulse Rate [ Apical] Pulse Rate [ From Monitor] Respiratory 20 23 21 Rate Blood Pressure 139/37 134/35 134/35 O2 Sat by Pulse 98 98 98 Oximetry 12/22/18 12/22/18 12/22/18 13:15 13:30 13:45 Temperature Pulse Rate 68 73 68 Pulse Rate [ Apical] Pulse Rate [ From Monitor] Respiratory 13 18 13 Rate Blood Pressure 113/37 113/37 133/30 O2 Sat by Pulse 99 98 98 Oximetry 12/22/18 12/22/18 14:00 14:15 Temperature Pulse Rate 69 70 Pulse Rate [ Apical] Pulse Rate [ From Monitor] Respiratory 16 19 Rate Blood Pressure 144/30 120/33 O2 Sat by Pulse 98 98 Oximetry - Lab 12/22/18 05:35 12/22/18 05:35 Most recent lab results Calcium 7.4 mg/dL (8.4-10.2) L 12/22/18 05:35 Phosphorus 5.10 mg/dL (2.5-4.5) H 12/18/18 04:08 Medications & Allergies - Medications Allergies/Adverse Reactions: Allergies Penicillins Allergy (Verified 12/08/18 13:13) Hives Home Medications: Home Medications Medication Instructions Recorded Confirmed Last Taken Type ALBUTEROL Inhaler (OR & NICU) 2 puff IH QID PRN #1 inhalation 12/21/16 12/08/18 Unknown Rx [Proair] Albuterol Sulfate [Albuterol 0.63% 0.63 mg IH TID PRN #90 ml 12/21/16 12/08/18 Unknown Rx NEBS] Amlodipine Besylate [Norvasc] 10 mg PO DAILY #90 tablet 12/21/16 12/08/18 Unknown Rx AtorvaSTATin [Lipitor] 20 mg PO QHS #90 tablet 12/21/16 12/08/18 Unknown Rx Hydralazine HCl [Apresoline TAB] 50 mg PO TID #90 tablet 12/21/16 12/08/18 Un known Rx Metoprolol [Lopressor TAB] 25 mg PO BID #90 tablet 12/21/16 12/08/18 Unknown Rx Promethazine /Codeine 5 ml PO Q6H PRN #100 ml 12/21/16 12/08/18 Unknown Rx [Phenergan/Codeine 6.25-10 mg/5 ml] Active Medications: Generic Name Dose Route Start Last Admin Trade Name Freq PRN Reason Stop Dose Admin Acetaminophen 650 mg 12/09/18 01:00 12/09/18 10:00 Tylenol KS 650 mg Q4H PRN Administration Pain MILD(1-3)/Fever >100.5/TURNER Albuterol 2.5 mg 12/09/18 00:31 Proventil IH Q4HRT PRN Shortness Of Breath Albuterol/Ipratropium 1 ampul 12/09/18 02:00 12/22/18 14:05 Duoneb *Not For Prn Use* IH 1 ampul Q6HRT KOLE Administration Lipase/Protease/Amylase 1 each 12/09/18 04:05 Pancrebetsy Pena 10,500 Unit FEEDTUBE PRN PRN For Clogged Feeding Tube Hydrophilic Ointment 1 applic 12/14/18 13:00 Vaseline Lip Therapy TP DIRECT PRN Dry tongue Sodium Bicarbonate 75 meq/ 1,075 mls @ 75 mls/hr 12/17/18 18:00 12/22/18 07:03 Dextrose IV 75 mls/hr DIRECT KOLE Administration Norepinephrine 4 mg in 250 mls @ 7.5 mls/hr 12/18/18 18:00 12/19/18 18:00 Levophed Drip 4 Mg/Ns 250 Ml IV 0 mcg/min TITR KOLE 0 mls/hr Titration Protocol 2 MCG/MIN Meropenem 1,000 mg/ Sodium 100 mls @ 100 mls/hr 12/20/18 10:00 12/22/18 09:24 Chloride IV 100 mls/hr Q24HR KOLE Administration Protocol Insulin Human Lispro 0 unit 12/11/18 12:00 12/22/18 11:49 Humalog SUB-Q 3 unit Q6HR KOLE Administration Protocol Lansoprazole 30 mg 12/12/18 10:00 12/22/18 09:24 Prevacid Solutab FEEDTUBE 30 mg BID KOLE Administration Midodrine 10 mg 12/18/18 19:01 12/22/18 11:52 Proamatine PO 10 mg TID@0800,1200,1600 KOLE Administration Multi-Ingred Cream/Lotion/Oil/Oint 1 applic 12/08/18 13:31 Artificial Tears Ophth Oint OU Q4HR PRN Dry Eye(s) Ondansetron HCl 4 mg 12/09/18 00:31 Zofran IV Q8H PRN Nausea And Vomiting Simple Syrup 15 ml 12/09/18 04:05 Simple Syrup FEEDTUBE PRN PRN Hypoglycemia Simple Syrup 30 ml 12/09/18 04:05 Simple Syrup FEEDTUBE PRN PRN Hypoglycemia Sodium Bicarbonate 325 mg 12/09/18 04:05 Sodium Bicarbonate FEEDTUBE PRN PRN For Clogged Feeding Tube Sodium Chloride 10 ml 12/09/18 10:00 12/22/18 09:25 Sodium Chloride Flush Syringe 10 Ml IV 10 ml BID KOLE Administration Sodium Chloride 10 ml 12/09/18 00:31 12/17/18 10:47 Sodium Chloride Flush Syringe 10 Ml IV 10 ml PRN PRN Administration LINE FLUSH
--- NOTE | 2018-12-22 15:15 | Progress Note ---
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 Etiology UTI +/- right otitis media/mastoiditis +/- ?meningitis +/- severe anemia. - Blood culture 12/08/2018 no growth so far. - Lactate 4 on admission. - unable to do LP due to thrombocytopenia, and has received empiric treatment anyways. 2) UTI: UA wbc 157, LE mod, on cefepime 3) Right otitis media / mastoiditis: Per grand-daughter, she has been c/o right ear pain and drainage last week. Patient was putting Neosporin and perhaps ear stephanie in the patient's ear. On physical exam, patient found to have purulent discharge from the right ear, and stephanie are removed by ED physician. There is probable perforation of the right sided tympanic membrane per ED physician. Got on dexametasone 4) Acute encephalopathy: not better, from sepsis alone versus meningitis versus CVA. CT head extensive right MCA encephalomalcia, right mastoid opacities. Unab;e to do MRI due to pacemaker 5) Acute respiratory failure: CXR showed small left pleural effusion. CT chest showed large pericardial effusion, LLL atelectasis v/s infiltrate and left pleural effusion. 6) ?GI bleed 7) Severe anemia: ? Noted coffee-ground drainage from OG tube. 8) Severe thrombocytopenia: from sepsis 9) Large pericardial effusion: TTE EF>50, no echo evidence of tamponade 10) Penicillin allergy: tolerating cefepime 11) CKD: renally adjusted antibiotics Recommendations: - continue IV Meropenem for now - overall extremely poor prognosis, consider hospice Dr Donnelly to round tomorrow Pearl Mariee MD Infectious Diseases [employer] [facility] M [phone] O [phone] Subjective Date of service: 12/22/18 Principal diagnosis: coffee-ground drainage Interval history: Remains intubated CMV fiO2 25% p6, unresponsive, noted hypothermia at 94 ROS unable to obtain Objective - Exam Narrative Exam: General appearance: lethargic in NAD on the vent intubated Eyes: + mild icteric sclerae, gustavo edematous conjunctivae; HENT: Atraumatic; oropharynx +ETT +OGT .tongue enlarged and protruded Neck: Trachea midline; supple, no thyromegaly or lymphadenopathy Lungs: gustavo coarse BS CV: rrr Abdomen: Soft, mild tenderness Extremities: No peripheral edema or extremity lymphadenopathy Skin: Normal temperature, turgor and texture; no rash, ulcers or subcutaneous nodules Psych: lethargic. Neuro: lethargic - Constitutional Vitals: Vital Signs Temp Pulse Resp BP Pulse Ox 97.5 F L 70 19 120/33 98 12/22/18 11:43 12/22/18 14:15 12/22/18 14:15 12/22/18 14:15 12/22/18 14:15 Temperature -Last 24 Hours Temperature 97.5 F Temperature 94.8 F Temperature 94.8 F Temperature 97.3 F Temperature 97.4 F Temperature 98.2 F Temperature 98.0 F Temperature 97.9 F Temperature 98.4 F Temperature 98.3 F Temperature 98.8 F Temperature 99.4 F - Labs CBC & Chem 7: 12/22/18 05:35 12/22/18 05:35 Labs: Abnormal lab results 12/20/18 12/21/18 12/21/18 Range/Units 11:00 17:39 18:00 WBC (4.5-11.0) K/mm3 Hgb 7.9 L (10.1-14.3) gm/dl Hct 23.8 L (30.3-42.9) % MCV (79-97) fl MCH (28-32) pg RDW (13.2-15.2) % Plt Count (140-440) K/mm3 Sodium (137-145) mmol/L Carbon Dioxide (22-30) mmol/L BUN (7-17) mg/dL Creatinine (0.7-1.2) mg/dL Glucose (65-100) mg/dL POC Glucose 108 H (70-105) Calcium (8.4-10.2) mg/dL Crossmatch See Detail 12/21/18 12/22/18 12/22/18 Range/Units 23:55 05:35 05:35 WBC 11.8 H (4.5-11.0) K/mm3 Hgb 9.4 L (10.1-14.3) gm/dl Hct 28.3 L (30.3-42.9) % MCV 76 L (79-97) fl MCH 25 L (28-32) pg RDW 24.5 H (13.2-15.2) % Plt Count 26 L D (140-440) K/mm3 Sodium 132 L (137-145) mmol/L Carbon Dioxide 21 L (22-30) mmol/L BUN 79 H (7-17) mg/dL Creatinine 2.3 H (0.7-1.2) mg/dL Glucose 131 H (65-100) mg/dL POC Glucose 126 H (70-105) Calcium 7.4 L (8.4-10.2) mg/dL Crossmatch 12/22/18 Range/Units 11:39 WBC (4.5-11.0) K/mm3 Hgb (10.1-14.3) gm/dl Hct (30.3-42.9) % MCV (79-97) fl MCH (28-32) pg RDW (13.2-15.2) % Plt Count (140-440) K/mm3 Sodium (137-145) mmol/L Carbon Dioxide (22-30) mmol/L BUN (7-17) mg/dL Creatinine (0.7-1.2) mg/dL Glucose (65-100) mg/dL POC Glucose 176 H (70-105) Calcium (8.4-10.2) mg/dL Crossmatch
[2018-12-23] MEDS: HumaLOG SUB-Q SCH ×4 (00:05→22:06)
[2018-12-23] MEDS: DUONEB *Not for PRN Use IH SCH ×3 (03:00→14:10)
[2018-12-23] MEDS ORDERED: CATHFLO IV ONE (09:00)
[2018-12-23] MEDS: MERREM 1,000 MG in NACL 0.9% 100 ML IV SCH (09:08)
[2018-12-23] MEDS: PREVACID SOLUTAB FEEDTUBE SCH ×2 (09:09→22:48)
[2018-12-23] MEDS: PROAMATINE PO SCH ×3 (09:09→15:46)
[2018-12-23 09:10] LABS: Hematocrit 24.9 % (30.3-42.9); Hemoglobin 8.5 gm/dl (10.1-14.3); Mean Corpuscular HGB Conc 34 % (30-34); Mean Corpuscular Volume 76 fl (79-97); Red Blood Count 3.29 M/mm3 (3.65-5.03)
[2018-12-23] MEDS: SODIUM CHLORIDE FLUSH SYRINGE 10 ML IV SCH ×2 (09:10→22:48)
[2018-12-23 09:12] LABS: Red Cell Distribution Width 24.9 % (13.2-15.2)
--- NOTE | 2018-12-23 09:12 | Progress Note ---
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 In the ED, She was found in acute respiratory failure, requiring bag valve mask ventilation and hypotensive. Noted coffee- ground drainage from OG tube and patient also found to have purulent discharge from the right ear, and stephanie are removed by ED physician. Patient was intubated in the ER and admitted to the ICU for further evaluation and management. Blood culture 12/08/[address] head extensive right MCA encephalomalcia, right mastoid opacities. CXR showed small left pleural effusion. CT chest showed large pericardial effusion, LLL atelectasis v/s infiltrate and left pleural effusion. Has had total 3 units PRBC and total 5 platelet pheresis for thrombocytopenia. Unable to wean off, patient may need trach and PEG. Very poor prognosis. Difficult getting in touch with family to discuss goals of care. Grand daughter stated she is POA so Case management working on getting documents. Poor prognosis. Acute respiratory failure, intubated Likely from underlying severe sepsis, encephalopathy and pleural effusion Crimper Operator/Pulm consulted Continue nebs, continue antibiotics CXR showed small left pleural effusion. CT chest showed large pericardial effusion, LLL atelectasis v/s infiltrate and left pleural effusion. Unable to wean off, may need trach and PEG Acute encephalopathy: - likely from sepsis alone versus possible meningitis vs seizure. CT head extensive right MCA encephalomalcia, right mastoid opacities. neurology ordered EEG. 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 Severe Sepsis due to UTI , right mastoiditis, aspiration PNA Blood cultures negative, right ear Cx negative Started on Merrem by ID Shock, hypotension did not respond to iv bolus so was started on Levophed, BP improved so off levophed Leukocytosis Hypotension/septic shock, resolved weaned off Levophed, BP now stable Left lower lobe infiltrate, poss pneumonia - Treat with antibiotic for now Large Pericardial effusion. TTE EF>50, no echo evidence of tamponade. Cardiology consulted, following and recommended medical management for now Coffee ground contents from NG aspirate/ Acute GI bleed cont Protonix, Consulted GI- cont to Monitor H/H, no plan for EGD now Transfuse prn MARYANN on CKD 3 baseline Cr around 1.2-1.5mg/dl Likely due to underlying sepsis Monitor BMP, Nephrology following- no indication for HD now /Acute on chronic anemia has h/o anemia requiring previous blood transfusions could be multifactorial (GI bleed and CKD), Total 3 Units PRBC transfused Thrombocytopenia Transfused total 4 Units platelets Plt 7 today, will transfuse more Hypothermia,resolved s/p warming blanket h/o Hypertension - BP now stable Diabetes mellitus type 2, SSI as needed FEN, on TF, not tolerating, Full code status. Very Poor prognosis The high probability of a clinically significant, sudden or life threatening deterioration of the [4] system(s) required my full and direct attention, intervention and personal management. The aggregate critical care time was [33] minutes. 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 In the ED, She was found in acute respiratory f ailure, requiring bag valve mask ventilation and hypotensive. Noted coffee- ground drainage from OG tube and patient also found to have purulent discharge from the right ear, and stephanie are removed by ED physician. Patient was intubated in the ER and admitted to the ICU for further evaluation and leonardo anguiano. Blood culture 12/08/[address] head extensive right MCA encephalomalcia, right mastoid opacities. CXR showed small left pleural effusion. CT chest showed large pericardial effusion, LLL atelectasis v/s infiltrate and left pleural effusion. Has had total 3 units PRBC and total 5 isabel tetphreiss for thrombocytopenia. Unable to wean off, patient may need trach and PEG. Very poor prognosis. Difficult getting in touch with family to discuss goals of care. Patient became hypotensive 12/18, was placed on Levophed, now off Levophed Still Unresponsive Hospitalist Physical - Physical exam Narrative exam: GEN: Intubated, On vent, HEENT: Intubated, tongue protruding, atraumatic, Neck: supple, No JVD Heart:s1 and S2 reg, no murmurs Lungs: Clear to auscultation bilaterally, no wheeze Abd:soft, non tender, non distended, normal bowel sounds Ext: No edema, no clubbing, no cyanosis Neuro: Intubated, Unresponsive, does not follow commands Skin:No rash - Constitutional Vitals: Temp Pulse Resp BP Pulse Ox 96.9 F L 60 18 121/33 100 12/23/18 08:00 12/23/18 08:15 12/23/18 08:15 12/23/18 08:15 12/23/18 08:15 General appearance: Present: well-nourished Results - Labs CBC & Chem 7: 12/23/18 08:50 12/23/18 08:50 Labs: Laboratory Last Values WBC 11.8 K/mm3 (4.5-11.0) H 12/22/18 05:35 RBC 3.73 M/mm3 (3.65-5.03) 12/22/18 05:35 Hgb 9.4 gm/dl (10.1-14.3) L 12/22/18 05:35 Hct 28.3 % (30.3-42.9) L 12/22/18 05:35 MCV 76 fl (79-97) L 12/22/18 05:35 MCH 25 pg (28-32) L 12/22/18 05:35 MCHC 33 % (30-34) 12/22/18 05:35 RDW 24.5 % (13.2-15.2) H 12/22/18 05:35 Plt Count 26 K/mm3 (140-440) L D 12/22/18 05:35 Lymph % (Auto) 5.6 % (13.4-35.0) L 12/10/18 04:38 [place] % (Auto) 4.2 % (0.0-7.3) 12/10/18 04:38 Eos % (Auto) 0.3 % (0.0-4.3) 12/10/18 04:38 Baso % (Auto) 0.1 % (0.0-1.8) 12/10/18 04:38 Lymph # 0.6 K/mm3 (1.2-5.4) L 12/10/18 04:38 [place] # 0.5 K/mm3 (0.0-0.8) 12/10/18 04:38 Eos # 0.0 K/mm3 (0.0-0.4) 12/10/18 04:38 Baso # 0.0 K/mm3 (0.0-0.1) 12/10/18 04:38 Add Manual Diff Complete 12/17/18 04:24 Total Counted 100 12/17/18 04:24 Seg Neutrophils % Church Musician 12/17/18 04:24 Seg Neuts % (Manual) 68.0 % (40.0-70.0) 12/17/18 04:24 Band Neutrophils % 22.0 % 12/17/18 04:24 Lymphocytes % (Manual) 6.0 % (13.4-35.0) L 12/17/18 04:24 Reactive Lymphs % (Man) 0 % 12/17/18 04:24 Monocytes % (Manual) 4.0 % (0.0-7.3) 12/17/18 04:24 Eosinophils % (Manual) 0 % (0.0-4.3) 12/17/18 04:24 Basophils % (Manual) 0 % (0.0-1.8) 12/17/18 04:24 Metamyelocytes % 0 % 12/17/18 04:24 Myelocytes % 0 % 12/17/18 04:24 Promyelocytes % 0 % 12/17/18 04:24 Blast Cells % 0 % 12/17/18 04:24 Nucleated RBC % Not Reportable 12/17/18 04:24 Seg Neutrophils # 10.3 K/mm3 (1.8-7.7) H 12/10/18 04:38 Seg Neutrophils # Man 13.1 K/mm3 (1.8-7.7) H 12/17/18 04:24 Band Neutrophils # 4.2 K/mm3 12/17/18 04:24 Lymphocytes # (Manual) 1.2 K/mm3 (1.2-5.4) 12/17/18 04:24 Abs React Lymphs (Man) 0.0 K/mm3 12/17/18 04:24 Monocytes # (Manual) 0.8 K/mm3 (0.0-0.8) 12/17/18 04:24 Eosinophils # (Manual) 0.0 K/mm3 (0.0-0.4) 12/17/18 04:24 Basophils # (Manual) 0.0 K/mm3 (0.0-0.1) 12/17/18 04:24 Metamyelocytes # 0.0 K/mm3 12/17/18 04:24 Myelocytes # 0.0 K/mm3 12/17/18 04:24 Promyelocytes # 0.0 K/mm3 12/17/18 04:24 Blast Cells # 0.0 K/mm3 12/17/18 04:24 WBC Morphology Not Reportable 12/17/18 04:24 Hypersegmented Neuts Not Reportable 12/17/18 04:24 Hyposegmented Neuts Not Reportable 12/17/18 04:24 Hypogranular Neuts Not Reportable 12/17/18 04:24 Smudge Cells Not Reportable 12/17/18 04:24 Toxic Granulation Not Reportable 12/17/18 04:24 Toxic Vacuolation Not Reportable 12/17/18 04:24 Dohle Bodies Not Reportable 12/17/18 04:24 Pelger-Huet Anomaly Not Reportable 12/17/18 04:24 Mark Rods Not Reportable 12/17/18 04:24 Platelet Estimate Consistent w auto 12/17/18 04:24 Clumped Platelets Not Reportable 12/17/18 04:24 Plt Clumps, EDTA Not Reportable 12/17/18 04:24 Large Platelets Not Reportable 12/17/18 04:24 Giant Platelets Not Reportable 12/17/18 04:24 Platelet Satelliting Not Reportable 12/17/18 04:24 Plt Morphology Comment Not Reportable 12/17/18 04:24 RBC Morphology Not Reportable 12/17/18 04:24 Dimorphic RBCs Not Reportable 12/17/18 04:24 Polychromasia Not Reportable 12/17/18 04:24 Hypochromasia 1+ 12/17/18 04:24 Poikilocytosis Not Reportable 12/17/18 04:24 Anisocytosis 2+ 12/17/18 04:24 Microcytosis Not Reportable 12/17/18 04:24 Macrocytosis 1+ 12/17/18 04:24 Spherocytes Not Reportable 12/17/18 04:24 Pappenheimer Bodies Not Reportable 12/17/18 04:24 Sickle Cells Not Reportable 12/17/18 04:24 Target Cells Not Reportable 12/17/18 04:24 Tear Drop Cells Not Reportable 12/17/18 04:24 Ovalocytes 1+ 12/17/18 04:24 Helmet Cells Not Reportable 12/17/18 04:24 Estrada-[place] Bodies Not Reportable 12/17/18 04:24 Jeff Rings Not Reportable 12/17/18 04:24 [place] Cells Few 12/17/18 04:24 Bite Cells Not Reportable 12/17/18 04:24 Crenated Cell Not Reportable 12/17/18 04:24 Elliptocytes Few 12/17/18 04:24 Acanthocytes (Spur) Not Reportable 12/17/18 04:24 Rouleaux Not Reportable 12/17/18 04:24 Hemoglobin C Crystals Not Reportable 12/17/18 04:24 Schistocytes Not Reportable 12/17/18 04:24 Malaria parasites Not Reportable 12/17/18 04:24 Stef Bodies Not Reportable 12/17/18 04:24 Hem Pathologist Commnt No 12/17/18 04:24 PT 20.2 Sec. (12.2-14.9) H 12/12/18 08:00 INR 1.61 (0.87-1.13) H 12/12/18 08:00 APTT 30.9 Sec. (24.2-36.6) 12/10/18 10:40 POC ABG pH 7.325 (7.35-7.45) L 12/15/18 03:37 POC ABG pCO2 28.6 (35-45) L 12/15/18 03:37 POC ABG pO2 105 (80-105) 12/15/18 03:37 POC ABG HCO3 14.9 12/15/18 03:37 POC ABG Total CO2 16 12/15/18 03:37 POC ABG O2 Sat 98 12/15/18 03:37 POC ABG Base Excess -11 12/15/18 03:37 FiO2 25 % 12/15/18 03:37 Sodium 132 mmol/L (137-145) L 12/22/18 05:35 Potassium 3.8 mmol/L (3.6-5.0) 12/22/18 05:35 Chloride 98.9 mmol/L (98-107) 12/22/18 05:35 Carbon Dioxide 21 mmol/L (22-30) L 12/22/18 05:35 Anion Gap 16 mmol/L 12/22/18 05:35 BUN 79 mg/dL (7-17) H 12/22/18 05:35 Creatinine 2.3 mg/dL (0.7-1.2) H 12/22/18 05:35 Estimated GFR 24 ml/min 12/22/18 05:35 BUN/Creatinine Ratio 34 % 12/22/18 05:35 Glucose 131 mg/dL (65-100) H 12/22/18 05:35 POC Glucose 174 (70-105) H 12/23/18 05:56 Hemoglobin A1c 4.9 % (4-6) 12/10/18 04:38 Lactic Acid 3.00 mmol/L (0.7-2.0) H* 12/08/18 15:21 Calcium 7.4 mg/dL (8.4-10.2) L 12/22/18 05:35 Phosphorus 5.10 mg/dL (2.5-4.5) H 12/18/18 04:08 Total Bilirubin 1.60 mg/dL (0.1-1.2) H 12/09/18 05:36 AST 44 units/L (5-40) H 12/09/18 05:36 ALT 39 units/L (7-56) 12/09/18 05:36 Alkaline Phosphatase 113 units/L (35-129) 12/09/18 05:36 Total Creatine Kinase 258 units/L (30-135) H 12/08/18 13:40 C-Reactive Protein 19.60 mg/dL (0.00-1.30) H 12/09/18 18:18 Total Protein 5.2 g/dL (6.3-8.2) L 12/09/18 05:36 Albumin 2.4 g/dL (3.9-5) L 12/09/18 05:36 Albumin/Globulin Ratio 0.9 % 12/09/18 05:36 TSH 0.268 mlU/mL (0.270-4.200) L 12/09/18 15:54 Free T4 0.58 ng/dL (0.76-1.46) L 12/09/18 15:54 Urine Color Yolie (Yellow) 12/08/18 13:40 Urine Turbidity Cloudy (Clear) 12/08/18 13:40 Urine pH 7.0 (5.0-7.0) 12/08/18 13:40 Ur Specific [place] 1.015 (1.003-1.030) 12/08/18 13:40 Urine Protein 100 mg/dl mg/dL (Negative) 12/08/18 13:40 Urine Glucose (UA) Neg mg/dL (Negative) 12/08/18 13:40 Urine Ketones Neg mg/dL (Negative) 12/08/18 13:40 Urine Blood Sm (Negative) 12/08/18 13:40 Urine Nitrite Neg (Negative) 12/08/18 13:40 Urine Bilirubin Neg (Negative) 12/08/18 13:40 Urine Urobilinogen 2.0 mg/dL (<2.0) 12/08/18 13:40 Ur Leukocyte Esterase Mod (Negative) 12/08/18 13:40 Urine WBC (Auto) 157.0 /HPF (0.0-6.0) H 12/08/18 13:40 Urine RBC (Auto) 8.0 /HPF (0.0-6.0) 12/08/18 13:40 U Epithel Cells (Auto) 1.0 /HPF (0-13.0) 12/08/18 13:40 Urine Bacteria (Auto) 4+ /HPF (Negative) 12/08/18 13:40 Urine Mucus 2+ /HPF 12/08/18 13:40 Random Vancomycin 15.9 ug/mL (0-40.0) 12/18/18 04:08 JEFFREY Screen Negative (Negative) 12/09/18 15:54 Blood Type B POSITIVE 12/20/18 11:00 Antibody Screen Negative 12/20/18 11:00 Crossmatch See Detail 12/20/18 11:00 Active Medications - Current Medications Current Medications: Generic Name Dose Route Start Last Admin Trade Name Freq PRN Reason Stop Dose Admin Acetaminophen 650 mg 12/09/18 01:00 12/09/18 10:00 Tylenol MO 650 mg Q4H PRN Administration Pain MILD(1-3)/Fever >100.5/TURNER Albuterol 2.5 mg 12/09/18 00:31 Proventil IH Q4HRT PRN Shortness Of Breath Albuterol/Ipratropium 1 ampul 12/09/18 02:00 12/23/18 03:00 Duoneb *Not For Prn Use* IH Not Given Q6HRT KOLE Lipase/Protease/Amylase 1 each 12/09/18 04:05 Pancreazbarbara Pena 10,500 Unit FEEDTUBE PRN PRN For Clogged Feeding Tube Hydrophilic Ointment 1 applic 12/14/18 13:00 Vaseline Lip Therapy TP DIRECT PRN Dry tongue Sodium Bicarbonate 75 meq/ 1,075 mls @ 75 mls/hr 12/17/18 18:00 12/22/18 19:19 Dextrose IV 75 mls/hr DIRECT KOLE Administration Norepinephrine 4 mg in 250 mls @ 7.5 mls/hr 12/18/18 18:00 12/19/18 18:00 Levophed Drip 4 Mg/Ns 250 Ml IV 0 mcg/min TITR KOLE 0 mls/hr Titration Protocol 2 MCG/MIN Meropenem 1,000 mg/ Sodium 100 mls @ 100 mls/hr 12/20/18 10:00 12/23/18 09:08 Chloride IV 100 mls/hr Q24HR KOLE Administration Protocol Insulin Human Lispro 0 unit 12/11/18 12:00 12/23/18 06:02 Humalog SUB-Q 3 unit Q6HR KOLE Administration Protocol Lansoprazole 30 mg 12/12/18 10:00 12/23/18 09:09 Prevacid Solutab FEEDTUBE 30 mg BID KOLE Administration Midodrine 10 mg 12/18/18 19:01 12/23/18 09:09 Proamatine PO 10 mg TID@0800,1200,1600 KOLE Administration Multi-Ingred Cream/Lotion/Oil/Oint 1 applic 12/08/18 13:31 Artificial Tears Ophth Oint OU Q4HR PRN Dry Eye(s) Ondansetron HCl 4 mg 12/09/18 00:31 Zofran IV Q8H PRN Nausea And Vomiting Simple Syrup 15 ml 12/09/18 04:05 Simple Syrup FEEDTUBE PRN PRN Hypoglycemia Simple Syrup 30 ml 12/09/18 04:05 Simple Syrup FEEDTUBE PRN PRN Hypoglycemia Sodium Bicarbonate 325 mg 12/09/18 04:05 Sodium Bicarbonate FEEDTUBE PRN PRN For Clogged Feeding Tube Sodium Chloride 10 ml 12/09/18 10:00 12/23/18 09:10 Sodium Chloride Flush Syringe 10 Ml IV 10 ml BID KOLE Administration Sodium Chloride 10 ml 12/09/18 00:31 12/17/18 10:47 Sodium Chloride Flush Syringe 10 Ml IV 10 ml PRN PRN Administration LINE FLUSH Nutrition/Malnutrition Assess - Dietary Evaluation Nutrition/Malnutrition Findings: Nutrition Notes Start: 12/09/18 12:11 Freq: Status: Active Protocol: Document 12/16/18 15:56 KNENY (Rec: 12/16/18 16:00 KENNY GONZALEZ [email or web address]) Nutrition Notes Initial or Follow up Reassessment Current Diagnosis Acute Kidney Injury,Sepsis, Respiratory Failure Other Pertinent Diagnosis Acute encephalopathy, Pericardial effusion Current Diet TF - Glucerna 1.2 at 50ml/hr Labs/Tests BUN 81 Cr 1.6 BG 161 Pertinent Medications Reviewed Height 5 ft 1 in Weight 60.3 kg [place] Body Weight (kg) 47.72 BMI 25.1 Weight change and time frame Current wt obtained from bed scale Subjective/Other Information Pt tolerating TF at goal rate, per RN. Pt remains on vent support. Percent of energy/protein needs met: 100% energy and pro Burn Absent Trauma Absent #1 Nutrition Diagnosis Inadequate oral intake Diagnosis Progress(for reassessment Continues documentation) Is patient on ventilator? Yes Is Patient Ambulatory and/or Out of Bed No REE-([facility]-confined to bed) 1183.980 Calculation Used for Recommendations [facility] Additional Notes Pro needs 1.2-2g/k-121g/ day Fluid needs 1ml/kcal Nutrition Intervention Nutrition Support: Glucerna 1.2 at 50ml/hr Flush with 100ml q4h Kcal 1,440 Protein (gm) 72 Fluid (mL) 966 Goal #1 TF tolerance Goal #2 TF to meet at least 80% energy and pro needs Follow-Up By: 12/23/18 Additional Comments F/U: stable TF, vent status, wt
[2018-12-23 10:10] LABS: Platelet Count 7 K/mm3 (140-440)
[2018-12-23] MEDS ORDERED: NACL 0.9% 500 ML 500 ML IV ONE (10:16)
--- NOTE | 2018-12-23 11:14 | Progress Note ---
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 - Blood culture 12/08/2018 no growth so far. - Lactate 4 on admission. - unable to do LP due to thrombocytopenia, and has received empiric treatment anyways. 2) UTI: UA wbc 157, LE mod, on cefepime. Urine culture was not sent. 3) Right otitis media / mastoiditis: Per grand-daughter, she had been c/o right ear pain and drainage week prior to admission. Patient was putting Neosporin and perhaps ear stephanie in the patient's ear. On physical exam, patient found to have purulent discharge from the right ear, and stephanie were removed by ED physician. There was probable perforation of the right sided tympanic membrane per ED physician. Got dexamethasone. 4) Acute encephalopathy: not better, from sepsis versus meningitis versus CVA. CT head extensive right MCA encephalomalcia, right mastoid opacities. 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 5) Acute respiratory failure: CXR showed small left pleural effusion. CT chest showed large pericardial effusion, LLL atelectasis v/s infiltrate and left pleural effusion. 6) ?GI bleed 7) Severe thrombocytopenia: worsening 8) Large pericardial effusion: TTE EF>50, no echo evidence of tamponade 9) Penicillin allergy: tolerating cefepime 10) CKD: renally adjusted antibiotics Recommendations: - platelets worsening (could consider hematology consult, but prognosis is poor), creatinine rising, extremely poor prognosis - continue renally adjusted Meropenem for now Ny Donnelly MD [facility] C: [phone] O: [phone] F: [phone] Subjective Date of service: 12/23/18 Principal diagnosis: coffee-ground drainage Interval history: remains unresponsive, on the ventilator. has warming blanket. Platelet count dropping. Creatinine worsening. Objective - Exam Narrative Exam: Physical Exam: Constitutional: unresponsive, intubated Head, Ears, Nose: Normocephalic, atraumatic. nose normal. External ears normal. Eyes: Conjunctivae/corneas clear. No icterus. No ptosis. Neck: Supple, no meningeal signs Oral: intubated, tongue protruding Cardiovascular: S1, S2 normal. Respiratory: Good air entry, clear to auscultation bilaterally GI: Soft, non-tender; bowel sounds hypoactive. No peritoneal signs Musculoskeletal: No pedal edema, no cyanosis. Skin: No rash or abscess Hem/Lymphatic: No palpable cervical or supraclavicular nodes. No lymphangitis Psych: no agitation Neurological: unresponsive, intubated, on vent - Constitutional Vitals: Vital Signs Temp Pulse Resp BP Pulse Ox 96.9 F L 61 18 121/30 100 12/23/18 08:00 12/23/18 10:50 12/23/18 10:50 12/23/18 10:19 12/23/18 10:19 Temperature -Last 24 Hours Temperature 96.9 F Temperature 97.3 F Temperature 98.4 F Temperature 99.3 F Temperature 97.5 F Temperature 97.5 F Temperature 97.5 F - Labs CBC & Chem 7: 12/23/18 08:50 12/23/18 08:50 Labs: Abnormal lab results 12/20/18 12/22/18 12/22/18 Range/Units 11:00 05:35 06:34 RBC (3.65-5.03) M/mm3 Hgb (10.1-14.3) gm/dl Hct (30.3-42.9) % MCV (79-97) fl MCH (28-32) pg RDW (13.2-15.2) % Plt Count 26 L D (140-440) K/mm3 Sodium (137-145) mmol/L BUN (7-17) mg/dL Creatinine (0.7-1.2) mg/dL Glucose (65-100) mg/dL POC Glucose 126 H (70-105) Calcium (8.4-10.2) mg/dL Crossmatch See Detail 12/22/18 12/22/1812/22/19 Range/Units 11:39 17:29 23:19 RBC (3.65-5.03) M/mm3 Hgb (10.1-14.3) gm/dl Hct (30.3-42.9) % MCV (79-97) fl MCH (28-32) pg RDW (13.2-15.2) % Plt Count (140-440) K/mm3 Sodium (137-145) mmol/L BUN (7-17) mg/dL Creatinine (0.7-1.2) mg/dL Glucose (65-100) mg/dL POC Glucose 176 H 180 H 135 H (70-105) Calcium (8.4-10.2) mg/dL Crossmatch 12/23/18 12/23/18 12/23/18 Range/Units 05:56 08:50 08:50 RBC 3.29 L (3.65-5.03) M/mm3 Hgb 8.5 L (10.1-14.3) gm/dl Hct 24.9 L (30.3-42.9) % MCV 76 L (79-97) fl MCH 26 L (28-32) pg RDW 24.9 H (13.2-15.2) % Plt Count 7 L* (140-440) K/mm3 Sodium 134 L (137-145) mmol/L BUN 80 H (7-17) mg/dL Creatinine 2.4 H (0.7-1.2) mg/dL Glucose 133 H (65-100) mg/dL POC Glucose 174 H (70-105) Calcium 7.0 L (8.4-10.2) mg/dL Crossmatch
[2018-12-23] MEDS: SODIUM BICARBONATE 75 MEQ in D5W 1,000 ML IV SCH (11:25)
--- NOTE | 2018-12-23 12:59 | Progress Note ---
Assessment and Plan - Patient Problems (1) Acute kidney failure with tubular necrosis Current Visit: Yes Status: Acute Plan to address problem: Labs noted and his renal function is stable. Overall prognosis is poor. Will monitor closely. Have discussed with staff and we will discontinue his IV bicarbonate. Can recommend gentle hydration with just NS @ 50 cc/hr. Avoid nephrotoxins. (2) Acute encephalopathy Current Visit: Yes Status: Acute Plan to address problem: s/p EEG . Will follow up results. Further management per primary team. (3) Sepsis Current Visit: Yes Status: Acute Qualifiers: Sepsis type: sepsis due to unspecified organism Qualified Code(s): A41.9 - Sepsis, unspecified organism Plan to address problem: unclear etiology. has been on broad spectrum antibiotic coverage. unable to undergo LP given his significant thrombocytopenia. Will follow up further recommendations per ID. (4) Acute post-hemorrhagic anemia Current Visit: Yes Status: Acute Plan to address problem: H/H is stable at this time. Continue to monitor, transfuse prn to maintain HgB>7.0 (5) Acute respiratory failure with hypoxia Current Visit: Yes Status: Acute Plan to address problem: Continues on ventilatory support, and further management per ICU/Pulmonary team. (6) Pericardial effusion without cardiac tamponade Current Visit: Yes Status: Acute Plan to address problem: s/p ECHO with findings not consistent with cardiac tamponade. Will continue to monitor, further recs per cardiology. Subjective Date of service: 12/23/18 Principal diagnosis: coffee-ground drainage Interval history: No acute changes overnight. Remains intubated, overall prognosis remains poor. Renal function noted, and overall seems to be stable over the last 24-48 hours. Objective - Vital Signs Vital signs: Vital Signs - 12hr 12/23/18 12/23/18 12/23/18 01:00 01:15 01:30 Temperature Pulse Rate 70 69 69 Pulse Rate [ Anterior Bilateral Throughout] Pulse Rate [ From Monitor] Respiratory 18 18 18 Rate Respiratory Rate [Anterior Bilateral Throughout] Blood Pressure 106/34 103/31 103/31 O2 Sat by Pulse 99 100 100 Oximetry 12/23/18 12/23/18 12/23/18 01:45 02:00 02:15 Temperature Pulse Rate 68 68 67 Pulse Rate [ Anterior Bilateral Throughout] Pulse Rate [ From Monitor] Respiratory 17 18 18 Rate Respiratory Rate [Anterior Bilateral Throughout] Blood Pressure 122/27 122/27 125/46 O2 Sat by Pulse 100 100 100 Oximetry 12/23/18 12/23/18 12/23/18 02:30 02:46 03:00 Temperature Pulse Rate 67 66 68 Pulse Rate [ Anterior Bilateral Throughout] Pulse Rate [ From Monitor] Respiratory 18 18 18 Rate Respiratory Rate [Anterior Bilateral Throughout] Blood Pressure 125/46 144/25 144/25 O2 Sat by Pulse 100 100 100 Oximetry 12/23/18 12/23/18 12/23/18 03:16 03:30 03:45 Temperature Pulse Rate 65 67 66 Pulse Rate [ Anterior Bilateral Throughout] Pulse Rate [ From Monitor] Respiratory 18 18 Rate Respiratory Rate [Anterior Bilateral Throughout] Blood Pressure 115/31 107/32 121/34 O2 Sat by Pulse 100 100 100 Oximetry 12/23/18 12/23/18 12/23/18 03:46 04:00 04:15 Temperature 97.3 F L Pulse Rate 66 63 62 Pulse Rate [ Anterior Bilateral Throughout] Pulse Rate [ 68 From Monitor] Respiratory 18 18 17 Rate Respiratory Rate [Anterior Bilateral Throughout] Blood Pressure 121/34 121/34 114/38 O2 Sat by Pulse 100 100 100 Oximetry 12/23/18 12/23/18 12/23/18 04:30 04:46 05:00 Temperature Pulse Rate 73 72 65 Pulse Rate [ Anterior Bilateral Throughout] Pulse Rate [ From Monitor] Respiratory 12 18 18 Rate Respiratory Rate [Anterior Bilateral Throughout] Blood Pressure 109/61 121/37 121/37 O2 Sat by Pulse 96 98 100 Oximetry 12/23/18 12/23/18 12/23/18 05:16 05:31 05:45 Temperature Pulse Rate 63 63 62 Pulse Rate [ Anterior Bilateral Throughout] Pulse Rate [ From Monitor] Respiratory 18 18 18 Rate Respiratory Rate [Anterior Bilateral Throughout] Blood Pressure 112/25 116/31 O2 Sat by Pulse 100 100 100 Oximetry 12/23/18 12/23/18 12/23/18 06:00 06:15 06:30 Temperature Pulse Rate 62 60 60 Pulse Rate [ Anterior Bilateral Throughout] Pulse Rate [ From Monitor] Respiratory 18 18 18 Rate Respiratory Rate [Anterior Bilateral Throughout] Blood Pressure 109/23 107/23 117/27 O2 Sat by Pulse 100 100 100 Oximetry 12/23/18 12/23/18 12/23/18 06:45 07:00 07:15 Temperature Pulse Rate 63 62 60 Pulse Rate [ Anterior Bilateral Throughout] Pulse Rate [ From Monitor] Respiratory 18 18 18 Rate Respiratory Rate [Anterior Bilateral Throughout] Blood Pressure 116/31 133/33 133/33 O2 Sat by Pulse 100 100 100 Oximetry 12/23/18 12/23/18 12/23/18 07:30 07:45 08:00 Temperature 96.9 F L Pulse Rate 60 65 60 Pulse Rate [ Anterior Bilateral Throughout] Pulse Rate [ 60 From Monitor] Respiratory 18 18 18 Rate Respiratory Rate [Anterior Bilateral Throughout] Blood Pressure 119/38 126/44 121/33 O2 Sat by Pulse 100 100 100 Oximetry 12/23/18 12/23/18 12/23/18 08:15 08:31 08:45 Temperature Pulse Rate 60 60 60 Pulse Rate [ Anterior Bilateral Throughout] Pulse Rate [ From Monitor] Respiratory 18 18 18 Rate Respiratory Rate [Anterior Bilateral Throughout] Blood Pressure 121/33 111/33 134/39 O2 Sat by Pulse 100 100 100 Oximetry 12/23/18 12/23/18 12/23/18 09:01 09:15 09:30 Temperature Pulse Rate 60 63 60 Pulse Rate [ Anterior Bilateral Throughout] Pulse Rate [ From Monitor] Respiratory 19 18 18 Rate Respiratory Rate [Anterior Bilateral Throughout] Blood Pressure 131/29 134/41 127/34 O2 Sat by Pulse 100 100 100 Oximetry 12/23/18 12/23/18 12/23/18 09:45 10:00 10:15 Temperature Pulse Rate 60 61 60 Pulse Rate [ Anterior Bilateral Throughout] Pulse Rate [ From Monitor] Respiratory 18 18 18 Rate Respiratory Rate [Anterior Bilateral Throughout] Blood Pressure 127/33 127/33 123/40 O2 Sat by Pulse 100 100 100 Oximetry 12/23/18 12/23/18 12/23/18 10:19 10:20 10:30 Temperature Pulse Rate 61 60 Pulse Rate [ 61 Anterior Bilateral Throughout] Pulse Rate [ From Monitor] Respiratory 18 Rate Respiratory 18 Rate [Anterior Bilateral Throughout] Blood Pressure 121/30 121/30 O2 Sat by Pulse 100 100 Oximetry 12/23/18 12/23/18 12/23/18 10:45 10:50 11:00 Temperature Pulse Rate 60 60 Pulse Rate [ 61 Anterior Bilateral Throughout] Pulse Rate [ From Monitor] Respiratory 18 18 Rate Respiratory 18 Rate [Anterior Bilateral Throughout] Blood Pressure 146/38 148/39 O2 Sat by Pulse 100 100 Oximetry 12/23/18 12/23/18 12/23/18 11:15 11:30 11:45 Temperature Pulse Rate 60 60 60 Pulse Rate [ Anterior Bilateral Throughout] Pulse Rate [ From Monitor] Respiratory 18 18 18 Rate Respiratory Rate [Anterior Bilateral Throughout] Blood Pressure 148/39 148/35 155/32 O2 Sat by Pulse 100 100 100 Oximetry 12/23/18 12/23/18 12/23/18 12:00 12:01 12:15 Temperature 97.1 F L Pulse Rate 60 61 60 Pulse Rate [ Anterior Bilateral Throughout] Pulse Rate [ 60 From Monitor] Respiratory 18 18 18 Rate Respiratory Rate [Anterior Bilateral Throughout] Blood Pressure 140/37 141/40 O2 Sat by Pulse 100 100 100 Oximetry 12/23/18 12:31 Temperature Pulse Rate 60 Pulse Rate [ Anterior Bilateral Throughout] Pulse Rate [ From Monitor] Respiratory 18 Rate Respiratory Rate [Anterior Bilateral Throughout] Blood Pressure 116/32 O2 Sat by Pulse 100 Oximetry - General Appearance General appearance: chronically ill, intubated, frail EENT: ATNC, PERRL Neck: no JVD Respiratory: Present: Clear to Ascultation Cardiology: regular, S1S2 Gastrointestinal: normoactive bowel sounds Integumentary: warm and dry Neurologic: other (remains ecephalopathic, altered, not following commands, minimally responsive off sedation) Musculoskeletal: other (+edema ) - Lab 12/23/18 08:50 12/23/18 08:50 Most recent lab results Calcium 7.0 mg/dL (8.4-10.2) L 12/23/18 08:50 Phosphorus 5.10 mg/dL (2.5-4.5) H 12/18/18 04:08 - Allied health notes Allied health notes reviewed: nursing Medications & Allergies - Medications Allergies/Adverse Reactions: Allergies Penicillins Allergy (Verified 12/08/18 13:13) Hives Home Medications: Home Medications Medication Instructions Recorded Confirmed Last Taken Type ALBUTEROL Inhaler (OR & NICU) 2 puff IH QID PRN #1 inhalation 12/21/16 12/08/18 Unknown Rx [Proair] Albuterol Sulfate [Albuterol 0.63% 0.63 mg IH TID PRN #90 ml 12/21/16 12/08/18 Unknown Rx NEBS] Amlodipine Besylate [Norvasc] 10 mg PO DAILY #90 tablet 12/21/16 12/08/18 Unknown Rx AtorvaSTATin [Lipitor] 20 mg PO QHS #90 tablet 12/21/16 12/08/18 Unknown Rx Hydralazine HCl [Apresoline TAB] 50 mg PO TID #90 tablet 12/21/16 12/08/18 Unknown Rx Metoprolol [Lopressor TAB] 25 mg PO BID #90 tablet 12/21/16 12/08/18 Unknown Rx Promethazine /Codeine 5 ml PO Q6H PRN #100 ml 12/21/16 12/08/18 Unknown Rx [Phenergan/Codeine 6.25-10 mg/5 ml] Active Medications: Generic Name Dose Route Start Last Admin Trade Name Freq PRN Reason Stop Dose Admin Acetaminophen 650 mg 12/09/18 01:00 12/09/18 10:00 Tylenol [place] 650 mg Q4H PRN Administration Pain MILD(1-3)/Fever >100.5/TURNER Albuterol 2.5 mg 12/09/18 00:31 Proventil IH Q4HRT PRN Shortness Of Breath Albuterol/Ipratropium 1 ampul 12/09/18 02:00 12/23/18 10:20 Duoneb *Not For Prn Use* IH 1 ampul Q6HRT KOLE Administration Lipase/Protease/Amylase 1 each 12/09/18 04:05 Pancrebetsy Pena 10,500 Unit FEEDTUBE PRN PRN For Clogged Feeding Tube Hydrophilic Ointment 1 applic 12/14/18 13:00 Vaseline Lip Therapy TP DIRECT PRN Dry tongue Sodium Bicarbonate 75 meq/ 1,075 mls @ 75 mls/hr 12/17/18 18:00 12/23/18 11:25 Dextrose IV 75 mls/hr DIRECT KOLE Administration Norepinephrine 4 mg in 250 mls @ 7.5 mls/hr 12/18/18 18:00 12/19/18 18:00 Levophed Drip 4 Mg/Ns 250 Ml IV 0 mcg/min TITR KOLE 0 mls/hr Titration Protocol 2 MCG/MIN Meropenem 1,000 mg/ Sodium 100 mls @ 100 mls/hr 12/20/18 10:00 12/23/18 09:08 Chloride IV 100 mls/hr Q24HR KOLE Administration Protocol Insulin Human Lispro 0 unit 12/11/18 12:00 12/23/18 11:25 Humalog SUB-Q 3 unit Q6HR KOLE Administration Protocol Lansoprazole 30 mg 12/12/18 10:00 12/23/18 09:09 Prevacid Solutab FEEDTUBE 30 mg BID KOLE Administration Midodrine 10 mg 12/18/18 19:01 12/23/18 11:25 Proamatine PO 10 mg TID@0800,1200,1600 KOLE Administration Multi-Ingred Cream/Lotion/Oil/Oint 1 applic 12/08/18 13:31 Artificial Tears Ophth Oint OU Q4HR PRN Dry Eye(s) Ondansetron HCl 4 mg 12/09/18 00:31 Zofran IV Q8H PRN Nausea And Vomiting Simple Syrup 15 ml 12/09/18 04:05 Simple Syrup FEEDTUBE PRN PRN Hypoglycemia Simple Syrup 30 ml 12/09/18 04:05 Simple Syrup FEEDTUBE PRN PRN Hypoglycemia Sodium Bicarbonate 325 mg 12/09/18 04:05 Sodium Bicarbonate FEEDTUBE PRN PRN For Clogged Feeding Tube Sodium Chloride 10 ml 12/09/18 10:00 12/23/18 09:10 Sodium Chloride Flush Syringe 10 Ml IV 10 ml BID KOLE Administration Sodium Chloride 10 ml 12/09/18 00:31 12/17/18 10:47 Sodium Chloride Flush Syringe 10 Ml IV 10 ml PRN PRN Administration LINE FLUSH
[2018-12-23] MEDS: NACL 0.9% 1000 ML 1,000 ML IV SCH (14:45)
--- NOTE | 2018-12-23 16:00 | Electroencephalogram Report ---
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 EKG channel shows some tachycardia. There is slowing of the background to 4-5 Hz and occasional FIRDA (frontal intermittent delta activity) rhythm. There is briefly some slowing at T3-T5 on the left at time stamp 11:02:08.8 but then there is shifting slowing on both sides at times. No epileptiform activity was seen. Interpretation: Interpretation: This EEG is moderately abnormal due to slowing of the background with occasional focal slowing in the left temporal region for which correlation with imaging is advised. Slowing of the background suggests a metabolic or other diffuse process. This EEG does not exclude epilepsy of partial onset. Up to 4 EEGs over several months may be needed to capture interictal epileptiform activity.
--- NOTE | 2018-12-23 16:36 | Progress Note ---
Assessment and Plan Imp: 1. UTI 2. Sepsis 3. Acute respiratory failure, hypoxia 4. MARYANN 5. Thrombocytopenia 6. Acute encephalopathy Rec: 1. Prognosis is poor; withdrawal of mechanical ventilation and palliative care would be the most appropriate management at this point; however, patient's grand-daughter wants everything done including trach/PEG; she has yet to produce power or criminal attorney documentation as requested by director of casework, and we have been unable to get in touch with patient's sons who are legal next of kin 2. ABX per ID 3. Stop bicarb drip per renal 4. TFs, GI PPx 5. SCDs; would try to keep platelets greater than 20K; agree with hematology evaluation No family present CCT 31 minutes Subjective Date of service: 12/23/18 Principal diagnosis: coffee-ground drainage Interval history: No events. Nonverbal on ventilator. Increasing tongue edema. Per RT apneic on PSV. Active Medications Acetaminophen (Tylenol) 650 mg [place] Q4H PRN PRN Reason: Pain MILD(1-3)/Fever >100.5/TURNER Last Admin: 12/09/18 10:00 Dose: 650 mg Documented by: Albuterol (Proventil) 2.5 mg IH Q4HRT PRN PRN Reason: Shortness Of Breath Albuterol/Ipratropium (Duoneb *Not For Prn Use*) 1 ampul IH Q6HRT KOLE Last Admin: 12/23/18 14:10 Dose: 1 ampul Documented by: Lipase/Protease/Amylase (Pancreaze Dr 10,500 Unit) 1 each FEEDTUBE PRN PRN PRN Reason: For Clogged Feeding Tube Hydrophilic Ointment (Vaseline Lip Therapy) 1 applic TP DIRECT PRN PRN Reason: Dry tongue Norepinephrine (Levophed Drip 4 Mg/Ns 250 Ml) 4 mg in 250 mls @ 7.5 mls/hr IV TITR KOLE; Protocol Last Titration: 12/19/18 18:00 Dose: 0 mcg/min, 0 mls/hr Documented by: Meropenem 1,000 mg/ Sodium (Chloride) 100 mls @ 100 mls/hr IV Q24HR KOLE; Protocol Last Admin: 12/23/18 09:08 Dose: 100 mls/hr Documented by: Sodium Chloride (Nacl 0.9% 1000 Ml) 1,000 mls @ 50 mls/hr IV DIRECT [facility] Last Admin: 12/23/18 14:45 Dose: 50 mls/hr Documented by: Insulin Human Lispro (Humalog) 0 unit SUB-Q Q6HR [facility]; Protocol Last Admin: 12/23/18 11:25 Dose: 3 unit Documented by: Lansoprazole (Prevacid Solutab) 30 mg FEEDTUBE BID [facility] Last Admin: 12/23/18 09:09 Dose: 30 mg Documented by: Midodrine (Proamatine) 10 mg PO TID@0800,1200,1600 [facility] Last Admin: 12/23/18 15:46 Dose: 10 mg Documented by: Multi-Ingred Cream/Lotion/Oil/Oint (Artificial Tears Ophth Oint) 1 applic OU Q4HR PRN PRN Reason: Dry Eye(s) Ondansetron HCl (Zofran) 4 mg IV Q8H PRN PRN Reason: Nausea And Vomiting Simple Syrup (Simple Syrup) 15 ml FEEDTUBE PRN PRN PRN Reason: Hypoglycemia Simple Syrup (Simple Syrup) 30 ml FEEDTUBE PRN PRN PRN Reason: Hypoglycemia Sodium Bicarbonate (Sodium Bicarbonate) 325 mg FEEDTUBE PRN PRN PRN Reason: For Clogged Feeding Tube Sodium Chloride (Sodium Chloride Flush Syringe 10 Ml) 10 ml IV BID [facility] Last Admin: 12/23/18 09:10 Dose: 10 ml Documented by: Sodium Chloride (Sodium Chloride Flush Syringe 10 Ml) 10 ml IV PRN PRN PRN Reason: LINE FLUSH Last Admin: 12/17/18 10:47 Dose: 10 ml Documented by: Objective Vital Signs - 12hr 12/23/18 12/23/18 12/23/18 04:46 05:00 05:16 Temperature Pulse Rate 72 65 63 Pulse Rate [ Anterior Bilateral Throughout] Pulse Rate [ From Monitor] Respiratory 18 18 18 Rate Respiratory Rate [Anterior Bilateral Throughout] Blood Pressure 121/37 121/37 112/25 O2 Sat by Pulse 98 100 100 Oximetry 12/23/18 12/23/18 12/23/18 05:31 05:45 06:00 Temperature Pulse Rate 63 62 62 Pulse Rate [ Anterior Bilateral Throughout] Pulse Rate [ From Monitor] Respiratory 18 18 18 Rate Respiratory Rate [Anterior Bilateral Throughout] Blood Pressure 116/31 109/23 O2 Sat by Pulse 100 100 100 Oximetry 12/23/18 12/23/18 12/23/18 06:15 06:30 06:45 Temperature Pulse Rate 60 60 63 Pulse Rate [ Anterior Bilateral Throughout] Pulse Rate [ From Monitor] Respiratory 18 18 18 Rate Respiratory Rate [Anterior Bilateral Throughout] Blood Pressure 107/23 117/27 116/31 O2 Sat by Pulse 100 100 100 Oximetry 12/23/18 12/23/18 12/23/18 07:00 07:15 07:30 Temperature Pulse Rate 62 60 60 Pulse Rate [ Anterior Bilateral Throughout] Pulse Rate [ From Monitor] Respiratory 18 18 18 Rate Respiratory Rate [Anterior Bilateral Throughout] Blood Pressure 133/33 133/33 119/38 O2 Sat by Pulse 100 100 100 Oximetry 12/23/18 12/23/18 12/23/18 07:45 08:00 08:15 Temperature 96.9 F L Pulse Rate 65 60 60 Pulse Rate [ Anterior Bilateral Throughout] Pulse Rate [ 60 From Monitor] Respiratory 18 18 18 Rate Respiratory Rate [Anterior Bilateral Throughout] Blood Pressure 126/44 121/33 121/33 O2 Sat by Pulse 100 100 100 Oximetry 12/23/18 12/23/18 12/23/18 08:31 08:45 09:01 Temperature Pulse Rate 60 60 60 Pulse Rate [ Anterior Bilateral Throughout] Pulse Rate [ From Monitor] Respiratory 18 18 19 Rate Respiratory Rate [Anterior Bilateral Throughout] Blood Pressure 111/33 134/39 131/29 O2 Sat by Pulse 100 100 100 Oximetry 12/23/1812/23/12/23/18 09:15 09:30 09:45 Temperature Pulse Rate 63 60 60 Pulse Rate [ Anterior Bilateral Throughout] Pulse Rate [ From Monitor] Respiratory 18 18 18 Rate Respiratory Rate [Anterior Bilateral Throughout] Blood Pressure 134/41 127/34 127/33 O2 Sat by Pulse 100 100 100 Oximetry 12/23/18 12/23/18 12/23/18 10:00 10:15 10:19 Temperature Pulse Rate 61 60 61 Pulse Rate [ Anterior Bilateral Throughout] Pulse Rate [ From Monitor] Respiratory 18 18 Rate Respiratory Rate [Anterior Bilateral Throughout] Blood Pressure 127/33 123/40 121/30 O2 Sat by Pulse 100 100 100 Oximetry 12/23/1812/23/12/23/18 10:20 10:30 10:45 Temperature Pulse Rate 60 60 Pulse Rate [ 61 Anterior Bilateral Throughout] Pulse Rate [ From Monitor] Respiratory 18 18 Rate Respiratory 18 Rate [Anterior Bilateral Throughout] Blood Pressure 121/30 146/38 O2 Sat by Pulse 100 100 Oximetry 12/23/18 12/23/18 12/23/18 10:50 11:00 11:15 Temperature Pulse Rate 60 60 Pulse Rate [ 61 Anterior Bilateral Throughout] Pulse Rate [ From Monitor] Respiratory 18 18 Rate Respiratory 18 Rate [Anterior Bilateral Throughout] Blood Pressure 148/39 148/39 O2 Sat by Pulse 100 100 Oximetry 12/23/18 12/23/18 12/23/18 11:30 11:45 12:00 Temperature 97.1 F L Pulse Rate 60 60 60 Pulse Rate [ Anterior Bilateral Throughout] Pulse Rate [ 60 From Monitor] Respiratory 18 18 18 Rate Respiratory Rate [Anterior Bilateral Throughout] Blood Pressure 148/35 155/32 O2 Sat by Pulse 100 100 100 Oximetry 12/23/18 12/23/18 12/23/18 12:01 12:15 12:31 Temperature Pulse Rate 61 60 60 Pulse Rate [ Anterior Bilateral Throughout] Pulse Rate [ From Monitor] Respiratory 18 18 18 Rate Respiratory Rate [Anterior Bilateral Throughout] Blood Pressure 140/37 141/40 116/32 O2 Sat by Pulse 100 100 100 Oximetry 12/23/18 12/23/18 12/23/18 12:45 13:01 13:15 Temperature Pulse Rate 62 61 63 Pulse Rate [ Anterior Bilateral Throughout] Pulse Rate [ From Monitor] Respiratory 18 18 18 Rate Respiratory Rate [Anterior Bilateral Throughout] Blood Pressure 153/34 157/29 132/31 O2 Sat by Pulse 100 100 100 Oximetry 12/23/18 12/23/18 12/23/18 13:31 13:45 14:00 Temperature Pulse Rate 66 64 61 Pulse Rate [ Anterior Bilateral Throughout] Pulse Rate [ From Monitor] Respiratory 18 18 18 Rate Respiratory Rate [Anterior Bilateral Throughout] Blood Pressure 128/32 129/41 135/38 O2 Sat by Pulse 100 100 100 Oximetry 12/23/18 12/23/18 12/23/18 14:10 14:15 14:30 Temperature Pulse Rate 63 63 Pulse Rate [ 62 Anterior Bilateral Throughout] Pulse Rate [ From Monitor] Respiratory 18 18 Rate Respiratory 18 Rate [Anterior Bilateral Throughout] Blood Pressure 121/40 132/51 O2 Sat by Pulse 100 100 Oximetry 12/23/18 12/23/18 14:40 16:00 Temperature 97.1 F L Pulse Rate Pulse Rate [ 66 Anterior Bilateral Throughout] Pulse Rate [ From Monitor] Respiratory Rate Respiratory 18 Rate [Anterior Bilateral Throughout] Blood Pressure O2 Sat by Pulse Oximetry Constitutional: no acute distress, comatose, other (on vent cmv) Eyes: non-icteric ENT: oropharynx moist, other (ETT in position, large/edematous tongue) Neck: supple, no JVD Ascultation: Bilateral: other (coarse BS bilaterally) Cardiovascular: regular rate and rhythm, other (pacemaker rhythm) Gastrointestinal: normoactive bowel sounds, non-distended Integumentary: normal Extremities: no cyanosis, no edema, pink and warm Neurologic: pupils equal and round, other (comatose, flaccid extremities, does not track or follow commands) CBC and BMP: 12/23/18 08:50 12/23/18 08:50 ABG, PT/INR, D-dimer: ABG POC ABG pH 7.325 (7.35-7.45) L 12/15/18 03:37 POC ABG pCO2 28.6 (35-45) L 12/15/18 03:37 POC ABG pO2 105 (80-105) 12/15/18 03:37 POC ABG HCO3 14.9 12/15/18 03:37 POC ABG Total CO2 16 12/15/18 03:37 POC ABG O2 Sat 98 12/15/18 03:37 PT/INR, D-dimer PT 20.2 Sec. (12.2-14.9) H 12/12/18 08:00 INR 1.61 (0.87-1.13) H 12/12/18 08:00 Abnormal lab findings: Abnormal Labs 12/08/18 12/08/18 12/08/18 12:58 13:40 13:40 WBC RBC Hgb Hct MCV MCH RDW Plt Count Lymph % (Auto) Lymph # Seg Neutrophils % Seg Neuts % (Manual) Lymphocytes % (Manual) Monocytes % (Manual) Nucleated RBC % Seg Neutrophils # Seg Neutrophils # Man Lymphocytes # (Manual) Monocytes # (Manual) PT INR POC ABG pH POC ABG pCO2 POC ABG pO2 Sodium Potassium Chloride Carbon Dioxide BUN Creatinine Glucose POC Glucose 143 H Lactic Acid Calcium Phosphorus Total Bilirubin AST Total Creatine Kinase C-Reactive Protein Total Protein Albumin TSH Free T4 Urine WBC (Auto) 157.0 H Crossmatch See Detail 12/08/18 12/08/18 12/08/18 13:40 13:40 13:40 WBC RBC 3.06 L Hgb 6.8 L Hct 21.1 L MCV 69 L MCH 22 L RDW 16.2 H Plt Count 56 L Lymph % (Auto) Lymph # Seg Neutrophils % Seg Neuts % (Manual) Lymphocytes % (Manual) 2.0 L Monocytes % (Manual) Nucleated RBC % Seg Neutrophils # Seg Neutrophils # Man Lymphocytes # (Manual) 0.2 L Monocytes # (Manual) PT INR POC ABG pH POC ABG pCO2 POC ABG pO2 Sodium Potassium 3.2 L Chloride Carbon Dioxide 18 L BUN 64 H Creatinine 1.5 H Glucose 145 H POC Glucose Lactic Acid 4.00 H* Calcium 7.7 L Phosphorus Total Bilirubin AST Total Creatine Kinase 258 H C-Reactive Protein Total Protein 4.6 L Albumin 1.8 L TSH Free T4 Urine WBC (Auto) Crossmatch 12/08/18 12/08/18 12/08/18 14:29 15:21 16:06 WBC RBC Hgb Hct MCV MCH RDW Plt Count Lymph % (Auto) Lymph # Seg Neutrophils % Seg Neuts % (Manual) Lymphocytes % (Manual) Monocytes % (Manual) Nucleated RBC % Seg Neutrophils # Seg Neutrophils # Man Lymphocytes # (Manual) Monocytes # (Manual) PT 20.5 H INR 1.64 H POC ABG pH POC ABG pCO2 34.2 L POC ABG pO2 465 H Sodium Potassium Chloride Carbon Dioxide BUN Creatinine Glucose POC Glucose Lactic Acid 3.00 H* Calcium Phosphorus Total Bilirubin AST Total Creatine Kinase C-Reactive Protein Total Protein Albumin TSH Free T4 Urine WBC (Auto) Crossmatch 12/09/18 12/09/18 12/09/18 02:31 05:36 05:36 WBC 14.5 H RBC Hgb Hct MCV 75 L MCH 25 L RDW 20.4 H Plt Count 68 L Lymph % (Auto) Lymph # Seg Neutrophils % Seg Neuts % (Manual) 81.0 H Lymphocytes % (Manual) 1.0 L Monocytes % (Manual) Nucleated RBC % Seg Neutrophils # Seg Neutrophils # Man 11.7 H Lymphocytes # (Manual) 0.1 L Monocytes # (Manual) PT INR POC ABG pH POC ABG pCO2 POC ABG pO2 Sodium Potassium Chloride 107.6 H Carbon Dioxide 18 L BUN 75 H Creatinine 1.9 H Glucose 136 H POC Glucose 152 H Lactic Acid Calcium 7.9 L Phosphorus Total Bilirubin 1.60 H AST 44 H Total Creatine Kinase C-Reactive Protein Total Protein 5.2 L Albumin 2.4 L TSH Free T4 Urine WBC (Auto) Crossmatch 12/09/18 12/09/18 12/09/18 05:43 10:47 13:46 WBC RBC Hgb Hct MCV MCH RDW Plt Count Lymph % (Auto) Lymph # Seg Neutrophils % Seg Neuts % (Manual) Lymphocytes % (Manual) Monocytes % (Manual) Nucleated RBC % Seg Neutrophils # Seg Neutrophils # Man Lymphocytes # (Manual) Monocytes # (Manual) PT INR POC ABG pH 7.308 L POC ABG pCO2 POC ABG pO2 183 H Sodium Potassium Chloride Carbon Dioxide BUN Creatinine Glucose POC Glucose 150 H 162 H Lactic Acid Calcium Phosphorus Total Bilirubin AST Total Creatine Kinase C-Reactive Protein Total Protein Albumin TSH Free T4 Urine WBC (Auto) Crossmatch 12/09/18 12/09/18 12/09/18 15:54 15:54 16:40 WBC RBC Hgb Hct MCV MCH RDW Plt Count Lymph % (Auto) Lymph # Seg Neutrophils % Seg Neuts % (Manual) Lymphocytes % (Manual) Monocytes % (Manual) Nucleated RBC % Seg Neutrophils # Seg Neutrophils # Man Lymphocytes # (Manual) Monocytes # (Manual) PT INR POC ABG pH POC ABG pCO2 POC ABG pO2 Sodium Potassium Chloride Carbon Dioxide BUN Creatinine Glucose POC Glucose 197 H Lactic Acid Calcium Phosphorus Total Bilirubin AST Total Creatine Kinase C-Reactive Protein Total Protein Albumin TSH 0.268 L Free T4 0.58 L Urine WBC (Auto) Crossmatch 12/09/18 12/09/18 12/09/18 18:18 18:18 21:51 WBC RBC Hgb Hct MCV MCH RDW Plt Count Lymph % (Auto) Lymph # Seg Neutrophils % Seg Neuts % (Manual) Lymphocytes % (Manual) Monocytes % (Manual) Nucleated RBC % Seg Neutrophils # Seg Neutrophils # Man Lymphocytes # (Manual) Monocytes # (Manual) PT INR POC ABG pH POC ABG pCO2 POC ABG pO2 Sodium Potassium Chloride 108.2 H Carbon Dioxide 16 L BUN 89 H Creatinine 2.3 H Glucose 180 H POC Glucose 198 H Lactic Acid Calcium 7.9 L Phosphorus Total Bilirubin AST Total Creatine Kinase C-Reactive Protein 19.60 H Total Protein Albumin TSH Free T4 Urine WBC (Auto) Crossmatch 12/10/18 12/10/1819 01:59 04:14 04:38 WBC 11.5 H RBC Hgb Hct MCV 75 L MCH 25 L RDW 21.1 H Plt Count 81 L Lymph % (Auto) 5.6 L Lymph # 0.6 L Seg Neutrophils % 89.8 H Seg Neuts % (Manual) Lymphocytes % (Manual) Monocytes % (Manual) Nucleated RBC % Seg Neutrophils # 10.3 H Seg Neutrophils # Man Lymphocytes # (Manual) Monocytes # (Manual) PT INR POC ABG pH 7.273 L POC ABG pCO2 32.1 L POC ABG pO2 161 H Sodium Potassium Chloride Carbon Dioxide BUN Creatinine Glucose POC Glucose 219 H Lactic Acid Calcium Phosphorus Total Bilirubin AST Total Creatine Kinase C-Reactive Protein Total Protein Albumin TSH Free T4 Urine WBC (Auto) Crossmatch 12/10/18 12/10/18 12/10/18 04:38 05:07 07:26 WBC RBC Hgb Hct MCV MCH RDW Plt Count Lymph % (Auto) Lymph # Seg Neutrophils % Seg Neuts % (Manual) Lymphocytes % (Manual) Monocytes % (Manual) Nucleated RBC % Seg Neutrophils # Seg Neutrophils # Man Lymphocytes # (Manual) Monocytes # (Manual) PT INR POC ABG pH POC ABG pCO2 POC ABG pO2 Sodium Potassium Chloride 112.5 H Carbon Dioxide 14 L BUN 94 H Creatinine 2.4 H Glucose 207 H POC Glucose 221 H 212 H Lactic Acid Calcium 7.7 L Phosphorus Total Bilirubin AST Total Creatine Kinase C-Reactive Protein Total Protein Albumin TSH Free T4 Urine WBC (Auto) Crossmatch 12/10/18 12/10/18 12/10/18 10:40 11:15 14:21 WBC RBC Hgb Hct MCV MCH RDW Plt Count Lymph % (Auto) Lymph # Seg Neutrophils % Seg Neuts % (Manual) Lymphocytes % (Manual) Monocytes % (Manual) Nucleated RBC % Seg Neutrophils # Seg Neutrophils # Man Lymphocytes # (Manual) Monocytes # (Manual) PT 21.4 H INR 1.73 H POC ABG pH 7.214 L POC ABG pCO2 32.8 L POC ABG pO2 Sodium Potassium Chloride Carbon Dioxide BUN Creatinine Glucose POC Glucose 227 H Lactic Acid Calcium Phosphorus Total Bilirubin AST Total Creatine Kinase C-Reactive Protein Total Protein Albumin TSH Free T4 Urine WBC (Auto) Crossmatch 12/10/18 12/10/18 12/11/18 15:47 22:38 03:36 WBC RBC Hgb Hct MCV MCH RDW Plt Count Lymph % (Auto) Lymph # Seg Neutrophils % Seg Neuts % (Manual) Lymphocytes % (Manual) Monocytes % (Manual) Nucleated RBC % Seg Neutrophils # Seg Neutrophils # Man Lymphocytes # (Manual) Monocytes # (Manual) PT INR POC ABG pH POC ABG pCO2 26.2 L POC ABG pO2 138 H Sodium Potassium Chloride Carbon Dioxide BUN Creatinine Glucose POC Glucose 202 H 259 H Lactic Acid Calcium Phosphorus Total Bilirubin AST Total Creatine Kinase C-Reactive Protein Total Protein Albumin TSH Free T4 Urine WBC (Auto) Crossmatch 12/11/18 12/11/18 12/11/18 04:12 05:00 06:19 WBC RBC Hgb Hct MCV MCH RDW Plt Count Lymph % (Auto) Lymph # Seg Neutrophils % Seg Neuts % (Manual) Lymphocytes % (Manual) Monocytes % (Manual) Nucleated RBC % Seg Neutrophils # Seg Neutrophils # Man Lymphocytes # (Manual) Monocytes # (Manual) PT 19.5 H INR 1.54 H POC ABG pH POC ABG pCO2 24.6 L POC ABG pO2 119 H Sodium Potassium Chloride Carbon Dioxide BUN Creatinine Glucose POC Glucose 174 H Lactic Acid Calcium Phosphorus Total Bilirubin AST Total Creatine Kinase C-Reactive Protein Total Protein Albumin TSH Free T4 Urine WBC (Auto) Crossmatch 12/11/18 12/11/18 12/11/18 11:10 11:10 18:10 WBC 14.3 H RBC Hgb Hct MCV 73 L MCH 24 L RDW 21.5 H Plt Count Lymph % (Auto) Lymph # Seg Neutrophils % Seg Neuts % (Manual) Lymphocytes % (Manual) Monocytes % (Manual) Nucleated RBC % Seg Neutrophils # Seg Neutrophils # Man Lymphocytes # (Manual) Monocytes # (Manual) PT INR POC ABG pH POC ABG pCO2 POC ABG pO2 Sodium Potassium Chloride 110.5 H Carbon Dioxide 15 L BUN 101 H Creatinine 2.4 H Glucose 119 H POC Glucose 147 H Lactic Acid Calcium 7.7 L Phosphorus Total Bilirubin AST Total Creatine Kinase C-Reactive Protein Total Protein Albumin TSH Free T4 Urine WBC (Auto) Crossmatch 12/11/18 12/12/18 12/12/18 23:25 05:37 06:03 WBC RBC Hgb Hct MCV MCH RDW Plt Count Lymph % (Auto) Lymph # Seg Neutrophils % Seg Neuts % (Manual) Lymphocytes % (Manual) Monocytes % (Manual) Nucleated RBC % Seg Neutrophils # Seg Neutrophils # Man Lymphocytes # (Manual) Monocytes # (Manual) PT INR POC ABG pH 7.346 L POC ABG pCO2 28.3 L POC ABG pO2 120 H Sodium Potassium Chloride Carbon Dioxide BUN Creatinine Glucose POC Glucose 143 H 154 H Lactic Acid Calcium Phosphorus Total Bilirubin AST Total Creatine Kinase C-Reactive Protein Total Protein Albumin TSH Free T4 Urine WBC (Auto) Crossmatch 12/12/18 12/12/18 12/12/18 08:00 08:00 08:00 WBC 16.2 H RBC Hgb Hct MCV 74 L MCH 25 L RDW 21.9 H Plt Count 21 L Lymph % (Auto) Lymph # Seg Neutrophils % Seg Neuts % (Manual) Lymphocytes % (Manual) Monocytes % (Manual) Nucleated RBC % Seg Neutrophils # Seg Neutrophils # Man Lymphocytes # (Manual) Monocytes # (Manual) PT 20.2 H INR 1.61 H POC ABG pH POC ABG pCO2 POC ABG pO2 Sodium Potassium Chloride 107.4 H Carbon Dioxide 16 L BUN 101 H Creatinine 2.3 H Glucose 169 H POC Glucose Lactic Acid Calcium 8.2 L Phosphorus Total Bilirubin AST Total Creatine Kinase C-Reactive Protein Total Protein Albumin TSH Free T4 Urine WBC (Auto) Crossmatch 12/12/18 12/12/18 12/13/18 12:59 18:01 04:28 WBC 18.6 H RBC Hgb Hct MCV 74 L MCH 24 L RDW 21.8 H Plt Count 34 L Lymph % (Auto) Lymph # Seg Neutrophils % Seg Neuts % (Manual) 97.0 H Lymphocytes % (Manual) 2.0 L Monocytes % (Manual) Nucleated RBC % 1.0 H Seg Neutrophils # Seg Neutrophils # Man 18.0 H Lymphocytes # (Manual) 0.4 L Monocytes # (Manual) PT INR POC ABG pH POC ABG pCO2 POC ABG pO2 Sodium Potassium Chloride Carbon Dioxide BUN Creatinine Glucose POC Glucose 158 H 123 H Lactic Acid Calcium Phosphorus Total Bilirubin AST Total Creatine Kinase C-Reactive Protein Total Protein Albumin TSH Free T4 Urine WBC (Auto) Crossmatch 12/13/18 12/13/18 12/13/18 04:28 04:45 19:17 WBC RBC Hgb Hct MCV MCH RDW Plt Count Lymph % (Auto) Lymph # Seg Neutrophils % Seg Neuts % (Manual) Lymphocytes % (Manual) Monocytes % (Manual) Nucleated RBC % Seg Neutrophils # Seg Neutrophils # Man Lymphocytes # (Manual) Monocytes # (Manual) PT INR POC ABG pH 7.327 L POC ABG pCO2 31.1 L POC ABG pO2 136 H Sodium Potassium Chloride 112.0 H Carbon Dioxide 17 L BUN 97 H Creatinine 2.2 H Glucose POC Glucose 106 H Lactic Acid Calcium 8.1 L Phosphorus Total Bilirubin AST Total Creatine Kinase C-Reactive Protein Total Protein Albumin TSH Free T4 Urine WBC (Auto) Crossmatch 12/13/18 12/14/18 12/14/18 23:24 03:35 03:35 WBC 22.0 H RBC Hgb Hct MCV 75 L MCH 24 L RDW 22.2 H Plt Count 44 L Lymph % (Auto) Lymph # Seg Neutrophils % Seg Neuts % (Manual) 96.0 H Lymphocytes % (Manual) 3.0 L Monocytes % (Manual) Nucleated RBC % Seg Neutrophils # Seg Neutrophils # Man 21.1 H Lymphocytes # (Manual) 0.7 L Monocytes # (Manual) PT INR POC ABG pH POC ABG pCO2 POC ABG pO2 Sodium 136 L Potassium Chloride 107.2 H Carbon Dioxide 15 L BUN 87 H Creatinine 1.7 H Glucose 156 H POC Glucose 108 H Lactic Acid Calcium 7.7 L Phosphorus Total Bilirubin AST Total Creatine Kinase C-Reactive Protein Total Protein Albumin TSH Free T4 Urine WBC (Auto) Crossmatch 12/14/18 12/14/18 12/14/18 04:58 05:37 12:10 WBC RBC Hgb Hct MCV MCH RDW Plt Count Lymph % (Auto) Lymph # Seg Neutrophils % Seg Neuts % (Manual) Lymphocytes % (Manual) Monocytes % (Manual) Nucleated RBC % Seg Neutrophils # Seg Neutrophils # Man Lymphocytes # (Manual) Monocytes # (Manual) PT INR POC ABG pH 7.301 L POC ABG pCO2 32.6 L POC ABG pO2 138 H Sodium Potassium Chloride Carbon Dioxide BUN Creatinine Glucose POC Glucose 178 H 208 H Lactic Acid Calcium Phosphorus Total Bilirubin AST Total Creatine Kinase C-Reactive Protein Total Protein Albumin TSH Free T4 Urine WBC (Auto) Crossmatch 12/14/18 12/14/18 12/15/18 17:44 23:16 03:37 WBC RBC Hgb Hct MCV MCH RDW Plt Count Lymph % (Auto) Lymph # Seg Neutrophils % Seg Neuts % (Manual) Lymphocytes % (Manual) Monocytes % (Manual) Nucleated RBC % Seg Neutrophils # Seg Neutrophils # Man Lymphocytes # (Manual) Monocytes # (Manual) PT INR POC ABG pH 7.325 L POC ABG pCO2 28.6 L POC ABG pO2 Sodium Potassium Chloride Carbon Dioxide BUN Creatinine Glucose POC Glucose 172 H 123 H Lactic Acid Calcium Phosphorus Total Bilirubin AST Total Creatine Kinase C-Reactive Protein Total Protein Albumin TSH Free T4 Urine WBC (Auto) Crossmatch 12/15/18 12/15/18 12/15/18 05:30 05:30 05:43 WBC 20.1 H RBC Hgb 9.5 L Hct 29.2 L MCV 74 L MCH 24 L RDW 22.7 H Plt Count 48 L Lymph % (Auto) Lymph # Seg Neutrophils % Seg Neuts % (Manual) 96.0 H Lymphocytes % (Manual) 1.0 L Monocytes % (Manual) Nucleated RBC % Seg Neutrophils # Seg Neutrophils # Man 19.3 H Lymphocytes # (Manual) 0.2 L Monocytes # (Manual) PT INR POC ABG pH POC ABG pCO2 POC ABG pO2 Sodium Potassium Chloride 110.8 H Carbon Dioxide 17 L BUN 83 H Creatinine 1.6 H Glucose 150 H POC Glucose 151 H Lactic Acid Calcium 7.7 L Phosphorus Total Bilirubin AST Total Creatine Kinase C-Reactive Protein Total Protein Albumin TSH Free T4 Urine WBC (Auto) Crossmatch 12/15/18 12/15/18 12/16/18 12:56 18:21 00:10 WBC RBC Hgb Hct MCV MCH RDW Plt Count Lymph % (Auto) Lymph # Seg Neutrophils % Seg Neuts % (Manual) Lymphocytes % (Manual) Monocytes % (Manual) Nucleated RBC % Seg Neutrophils # Seg Neutrophils # Man Lymphocytes # (Manual) Monocytes # (Manual) PT INR POC ABG pH POC ABG pCO2 POC ABG pO2 Sodium Potassium Chloride Carbon Dioxide BUN Creatinine Glucose POC Glucose 190 H 143 H 174 H Lactic Acid Calcium Phosphorus Total Bilirubin AST Total Creatine Kinase C-Reactive Protein Total Protein Albumin TSH Free T4 Urine WBC (Auto) Crossmatch 12/16/18 12/16/18 12/16/18 05:24 05:30 05:30 WBC 17.1 H RBC Hgb 9.1 L Hct 28.8 L MCV 76 L MCH 24 L RDW 23.5 H Plt Count 37 L Lymph % (Auto) Lymph # Seg Neutrophils % Seg Neuts % (Manual) Lymphocytes % (Manual) 9.0 L Monocytes % (Manual) 9.0 H Nucleated RBC % Seg Neutrophils # Seg Neutrophils # Man 9.6 H Lymphocytes # (Manual) Monocytes # (Manual) 1.5 H PT INR POC ABG pH POC ABG pCO2 POC ABG pO2 Sodium Potassium Chloride 110.8 H Carbon Dioxide 15 L BUN 81 H Creatinine 1.6 H Glucose 161 H POC Glucose 154 H Lactic Acid Calcium 7.6 L Phosphorus Total Bilirubin AST Total Creatine Kinase C-Reactive Protein Total Protein Albumin TSH Free T4 Urine WBC (Auto) Crossmatch 12/16/18 12/16/18 12/16/18 12:31 17:42 21:56 WBC RBC Hgb Hct MCV MCH RDW Plt Count Lymph % (Auto) Lymph # Seg Neutrophils % Seg Neuts % (Manual) Lymphocytes % (Manual) Monocytes % (Manual) Nucleated RBC % Seg Neutrophils # Seg Neutrophils # Man Lymphocytes # (Manual) Monocytes # (Manual) PT INR POC ABG pH POC ABG pCO2 POC ABG pO2 Sodium Potassium Chloride Carbon Dioxide BUN Creatinine Glucose POC Glucose 172 H 173 H 118 H Lactic Acid Calcium Phosphorus Total Bilirubin AST Total Creatine Kinase C-Reactive Protein Total Protein Albumin TSH Free T4 Urine WBC (Auto) Crossmatch 12/16/18 12/17/18 12/17/18 23:38 04:24 04:24 WBC 19.2 H RBC Hgb 9.5 L Hct 29.7 L MCV 76 L MCH 24 L RDW 24.4 H Plt Count 26 L Lymph % (Auto) Lymph # Seg Neutrophils % Seg Neuts % (Manual) Lymphocytes % (Manual) 6.0 L Monocytes % (Manual) Nucleated RBC % Seg Neutrophils # Seg Neutrophils # Man 13.1 H Lymphocytes # (Manual) Monocytes # (Manual) PT INR POC ABG pH POC ABG pCO2 POC ABG pO2 Sodium 134 L Potassium Chloride 110.0 H Carbon Dioxide 14 L BUN 83 H Creatinine 1.6 H Glucose POC Glucose 109 H Lactic Acid Calcium 7.8 L Phosphorus Total Bilirubin AST Total Creatine Kinase C-Reactive Protein Total Protein Albumin TSH Free T4 Urine WBC (Auto) Crossmatch 12/17/18 12/17/18 12/18/18 06:42 17:49 00:40 WBC RBC Hgb Hct MCV MCH RDW Plt Count Lymph % (Auto) Lymph # Seg Neutrophils % Seg Neuts % (Manual) Lymphocytes % (Manual) Monocytes % (Manual) Nucleated RBC % Seg Neutrophils # Seg Neutrophils # Man Lymphocytes # (Manual) Monocytes # (Manual) PT INR POC ABG pH POC ABG pCO2 POC ABG pO2 Sodium Potassium Chloride 113.1 H Carbon Dioxide 13 L BUN 82 H Creatinine 1.6 H Glucose POC Glucose 66 L 109 H Lactic Acid Calcium 8.0 L Phosphorus Total Bilirubin AST Total Creatine Kinase C-Reactive Protein Total Protein Albumin TSH Free T4 Urine WBC (Auto) Crossmatch 12/18/18 12/18/18 12/18/18 04:08 04:08 12:45 WBC 26.5 H RBC 3.63 L Hgb 8.7 L Hct 26.8 L MCV 74 L MCH 24 L RDW 23.3 H Plt Count 24 L Lymph % (Auto) Lymph # Seg Neutrophils % Seg Neuts % (Manual) Lymphocytes % (Manual) Monocytes % (Manual) Nucleated RBC % Seg Neutrophils # Seg Neutrophils # Man Lymphocytes # (Manual) Monocytes # (Manual) PT INR POC ABG pH POC ABG pCO2 POC ABG pO2 Sodium Potassium Chloride 114.3 H Carbon Dioxide 16 L BUN 82 H Creatinine 1.7 H Glucose POC Glucose 117 H Lactic Acid Calcium 7.8 L Phosphorus 5.10 H Total Bilirubin AST Total Creatine Kinase C-Reactive Protein Total Protein Albumin TSH Free T4 Urine WBC (Auto) Crossmatch 12/18/18 12/18/18 12/19/18 17:42 23:39 04:22 WBC 20.4 H RBC 3.01 L Hgb 7.2 L Hct 22.6 L MCV 75 L MCH 24 L RDW 24.5 H Plt Count 52 L D Lymph % (Auto) Lymph # Seg Neutrophils % Seg Neuts % (Manual) Lymphocytes % (Manual) Monocytes % (Manual) Nucleated RBC % Seg Neutrophils # Seg Neutrophils # Man Lymphocytes # (Manual) Monocytes # (Manual) PT INR POC ABG pH POC ABG pCO2 POC ABG pO2 Sodium Potassium Chloride Carbon Dioxide BUN Creatinine Glucose POC Glucose 121 H 184 H Lactic Acid Calcium Phosphorus Total Bilirubin AST Total Creatine Kinase C-Reactive Protein Total Protein Albumin TSH Free T4 Urine WBC (Auto) Crossmatch 12/19/18 12/19/18 12/19/18 04:22 12:43 18:12 WBC RBC Hgb Hct MCV MCH RDW Plt Count Lymph % (Auto) Lymph # Seg Neutrophils % Seg Neuts % (Manual) Lymphocytes % (Manual) Monocytes % (Manual) Nucleated RBC % Seg Neutrophils # Seg Neutrophils # Man Lymphocytes # (Manual) Monocytes # (Manual) PT INR POC ABG pH POC ABG pCO2 POC ABG pO2 Sodium Potassium Chloride 112.9 H Carbon Dioxide 15 L BUN 76 H Creatinine 1.8 H Glucose 107 H POC Glucose 141 H 227 H Lactic Acid Calcium 7.4 L Phosphorus Total Bilirubin AST Total Creatine Kinase C-Reactive Protein Total Protein Albumin TSH Free T4 Urine WBC (Auto) Crossmatch 12/19/18 12/19/18 12/20/18 23:55 Unknown 03:07 WBC 15.7 H RBC 2.92 L Hgb 7.2 L 7.1 L Hct 22.2 L 21.6 L MCV 74 L MCH 24 L RDW 24.3 H Plt Count 23 L Lymph % (Auto) Lymph # Seg Neutrophils % Seg Neuts % (Manual) Lymphocytes % (Manual) Monocytes % (Manual) Nucleated RBC % Seg Neutrophils # Seg Neutrophils # Man Lymphocytes # (Manual) Monocytes # (Manual) PT INR POC ABG pH POC ABG pCO2 POC ABG pO2 Sodium Potassium Chloride Carbon Dioxide BUN Creatinine Glucose POC Glucose 174 H Lactic Acid Calcium Phosphorus Total Bilirubin AST Total Creatine Kinase C-Reactive Protein Total Protein Albumin TSH Free T4 Urine WBC (Auto) Crossmatch 12/20/18 12/20/18 12/20/18 03:07 05:20 11:00 WBC RBC Hgb Hct MCV MCH RDW Plt Count Lymph % (Auto) Lymph # Seg Neutrophils % Seg Neuts % (Manual) Lymphocytes % (Manual) Monocytes % (Manual) Nucleated RBC % Seg Neutrophils # Seg Neutrophils # Man Lymphocytes # (Manual) Monocytes # (Manual) PT INR POC ABG pH POC ABG pCO2 POC ABG pO2 Sodium 136 L Potassium Chloride Carbon Dioxide 20 L BUN 79 H Creatinine 2.1 H Glucose 141 H POC Glucose 210 H Lactic Acid Calcium 7.5 L Phosphorus Total Bilirubin AST Total Creatine Kinase C-Reactive Protein Total Protein Albumin TSH Free T4 Urine WBC (Auto) Crossmatch See Detail 12/20/18 12/20/18 12/21/18 11:40 17:51 00:33 WBC RBC Hgb Hct MCV MCH RDW Plt Count Lymph % (Auto) Lymph # Seg Neutrophils % Seg Neuts % (Manual) Lymphocytes % (Manual) Monocytes % (Manual) Nucleated RBC % Seg Neutrophils # Seg Neutrophils # Man Lymphocytes # (Manual) Monocytes # (Manual) PT INR POC ABG pH POC ABG pCO2 POC ABG pO2 Sodium Potassium Chloride Carbon Dioxide BUN Creatinine Glucose POC Glucose 183 H 150 H 119 H Lactic Acid Calcium Phosphorus Total Bilirubin AST Total Creatine Kinase C-Reactive Protein Total Protein Albumin TSH Free T4 Urine WBC (Auto) Crossmatch 12/21/18 12/21/18 12/21/18 05:05 07:19 07:19 WBC 11.9 H RBC 2.83 L Hgb 6.9 L Hct 20.7 L MCV 73 L MCH 24 L RDW 23.9 H Plt Count 11 L* Lymph % (Auto) Lymph # Seg Neutrophils % Seg Neuts % (Manual) Lymphocytes % (Manual) Monocytes % (Manual) Nucleated RBC % Seg Neutrophils # Seg Neutrophils # Man Lymphocytes # (Manual) Monocytes # (Manual) PT INR POC ABG pH POC ABG pCO2 POC ABG pO2 Sodium 135 L Potassium Chloride Carbon Dioxide 21 L BUN 78 H Creatinine 2.3 H Glucose 143 H POC Glucose 165 H Lactic Acid Calcium 7.3 L Phosphorus Total Bilirubin AST Total Creatine Kinase C-Reactive Protein Total Protein Albumin TSH Free T4 Urine WBC (Auto) Crossmatch 12/21/18 12/21/18 12/21/18 11:55 17:39 18:00 WBC RBC Hgb 7.9 L Hct 23.8 L MCV MCH RDW Plt Count Lymph % (Auto) Lymph # Seg Neutrophils % Seg Neuts % (Manual) Lymphocytes % (Manual) Monocytes % (Manual) Nucleated RBC % Seg Neutrophils # Seg Neutrophils # Man Lymphocytes # (Manual) Monocytes # (Manual) PT INR POC ABG pH POC ABG pCO2 POC ABG pO2 Sodium Potassium Chloride Carbon Dioxide BUN Creatinine Glucose POC Glucose 125 H 108 H Lactic Acid Calcium Phosphorus Total Bilirubin AST Total Creatine Kinase C-Reactive Protein Total Protein Albumin TSH Free T4 Urine WBC (Auto) Crossmatch 12/21/18 12/22/18 12/22/18 23:55 05:35 05:35 WBC 11.8 H RBC Hgb 9.4 L Hct 28.3 L MCV 76 L MCH 25 L RDW 24.5 H Plt Count 26 L D Lymph % (Auto) Lymph # Seg Neutrophils % Seg Neuts % (Manual) Lymphocytes % (Manual) Monocytes % (Manual) Nucleated RBC % Seg Neutrophils # Seg Neutrophils # Man Lymphocytes # (Manual) Monocytes # (Manual) PT INR POC ABG pH POC ABG pCO2 POC ABG pO2 Sodium 132 L Potassium Chloride Carbon Dioxide 21 L BUN 79 H Creatinine 2.3 H Glucose 131 H POC Glucose 126 H Lactic Acid Calcium 7.4 L Phosphorus Total Bilirubin AST Total Creatine Kinase C-Reactive Protein Total Protein Albumin TSH Free T4 Urine WBC (Auto) Crossmatch 12/22/18 12/22/18 12/22/18 06:34 11:39 17:29 WBC RBC Hgb Hct MCV MCH RDW Plt Count Lymph % (Auto) Lymph # Seg Neutrophils % Seg Neuts % (Manual) Lymphocytes % (Manual) Monocytes % (Manual) Nucleated RBC % Seg Neutrophils # Seg Neutrophils # Man Lymphocytes # (Manual) Monocytes # (Manual) PT INR POC ABG pH POC ABG pCO2 POC ABG pO2 Sodium Potassium Chloride Carbon Dioxide BUN Creatinine Glucose POC Glucose 126 H 176 H 180 H Lactic Acid Calcium Phosphorus Total Bilirubin AST Total Creatine Kinase C-Reactive Protein Total Protein Albumin TSH Free T4 Urine WBC (Auto) Crossmatch 12/22/18 12/23/18 12/23/18 23:19 05:56 08:50 WBC RBC Hgb Hct MCV MCH RDW Plt Count Lymph % (Auto) Lymph # Seg Neutrophils % Seg Neuts % (Manual) Lymphocytes % (Manual) Monocytes % (Manual) Nucleated RBC % Seg Neutrophils # Seg Neutrophils # Man Lymphocytes # (Manual) Monocytes # (Manual) PT INR POC ABG pH POC ABG pCO2 POC ABG pO2 Sodium 134 L Potassium Chloride Carbon Dioxide BUN 80 H Creatinine 2.4 H Glucose 133 H POC Glucose 135 H 174 H Lactic Acid Calcium 7.0 L Phosphorus Total Bilirubin AST Total Creatine Kinase C-Reactive Protein Total Protein Albumin TSH Free T4 Urine WBC (Auto) Crossmatch 12/23/18 12/23/18 08:50 11:18 WBC RBC 3.29 L Hgb 8.5 L Hct 24.9 L MCV 76 L MCH 26 L RDW 24.9 H Plt Count 7 L* Lymph % (Auto) Lymph # Seg Neutrophils % Seg Neuts % (Manual) Lymphocytes % (Manual) Monocytes % (Manual) Nucleated RBC % Seg Neutrophils # Seg Neutrophils # Man Lymphocytes # (Manual) Monocytes # (Manual) PT INR POC ABG pH POC ABG pCO2 POC ABG pO2 Sodium Potassium Chloride Carbon Dioxide BUN Creatinine Glucose POC Glucose 164 H Lactic Acid Calcium Phosphorus Total Bilirubin AST Total Creatine Kinase C-Reactive Protein Total Protein Albumin TSH Free T4 Urine WBC (Auto) Crossmatch Chest x-ray: report reviewed, image reviewed CT scan - chest: report reviewed, image reviewed Allied health notes reviewed: nursing
[2018-12-23] MEDS ORDERED: NACL 0.9% 500 ML 500 ML IV NR (16:37)
[2018-12-23] MEDS: SOLU-Medrol IV SCH ×2 (22:06→22:50)
[2018-12-24] MEDS: HumaLOG SUB-Q SCH ×2 (00:17→08:03)
[2018-12-24] MEDS ORDERED: D50W (25GM) Syringe IV ONE (00:23)
[2018-12-24] MEDS: D50W (25GM) Syringe IV PRN (00:30)
[2018-12-24] MEDS: DUONEB *Not for PRN Use IH SCH ×5 (02:09→19:10)
[2018-12-24 06:25] LABS: Hematocrit 29.1 % (30.3-42.9); Hemoglobin 9.7 gm/dl (10.1-14.3); Mean Corpuscular HGB Conc 34 % (30-34); Mean Corpuscular Volume 76 fl (79-97); Red Blood Count 3.84 M/mm3 (3.65-5.03)
[2018-12-24 06:28] LABS: Platelet Count 30 K/mm3 (140-440); Red Cell Distribution Width 24.9 % (13.2-15.2)
[2018-12-24 06:39] LABS: Albumin 1.6 g/dL (3.9-5); Calcium 7.5 mg/dL (8.4-10.2)
[2018-12-24] MEDS: SOLU-Medrol IV SCH ×2 (07:00→21:50)
--- NOTE | 2018-12-24 07:53 | Progress Note ---
Assessment and Plan - Patient Problems (1) Acute kidney failure with tubular necrosis Current Visit: Yes Status: Acute Plan to address problem: Labs noted and his renal function is stable. Overall prognosis is poor. Will monitor closely. Have discussed with staff and we will discontinue his IV bicarbonate. Started on gentle hydration with just NS @ 50 cc/hr. Avoid nephrotoxins. (2) Acute encephalopathy Current Visit: Yes Status: Acute Plan to address problem: s/p EEG . Results reviewed. Further management per primary team. (3) Sepsis Current Visit: Yes Status: Acute Qualifiers: Sepsis type: sepsis due to unspecified organism Qualified Code(s): A41.9 - Sepsis, unspecified organism Plan to address problem: unclear etiology. has been on broad spectrum antibiotic coverage. unable to undergo LP given his significant thrombocytopenia. Will follow up further recommendations per ID. (4) Acute post-hemorrhagic anemia Current Visit: Yes Status: Acute Plan to address problem: H/H is stable at this time. Continue to monitor, transfuse prn to maintain HgB>7.0 (5) Acute respiratory failure with hypoxia Current Visit: Yes Status: Acute Plan to address problem: Continues on ventilatory support, and further management per ICU/Pulmonary team. (6) Pericardial effusion without cardiac tamponade Current Visit: Yes Status: Acute Plan to address problem: s/p ECHO with findings not consistent with cardiac tamponade. Will continue to monitor, further recs per cardiology. Subjective Date of service: 12/24/18 Principal diagnosis: coffee-ground drainage Interval history: No acute changes. Labs noted, renal function stable, switched to NS @ 50 cc/hr. Objective - Vital Signs Vital signs: Vital Signs - 12hr 12/23/18 12/23/18 12/23/18 20:00 20:01 20:15 Temperature Pulse Rate 63 61 Pulse Rate [ Anterior Bilateral Throughout] Pulse Rate [ 66 From Monitor] Respiratory 18 18 18 Rate Respiratory Rate [Anterior Bilateral Throughout] Blood Pressure 131/44 138/35 O2 Sat by Pulse 100 Oximetry 12/23/18 12/23/18 12/23/18 20:30 20:45 21:00 Temperature Pulse Rate 63 64 67 Pulse Rate [ Anterior Bilateral Throughout] Pulse Rate [ From Monitor] Respiratory 18 18 18 Rate Respiratory Rate [Anterior Bilateral Throughout] Blood Pressure 144/28 138/35 148/34 O2 Sat by Pulse Oximetry 03/12/23/18 12/23/18 21:15 21:30 21:45 Temperature Pulse Rate 62 64 73 Pulse Rate [ Anterior Bilateral Throughout] Pulse Rate [ From Monitor] Respiratory 18 25 H 19 Rate Respiratory Rate [Anterior Bilateral Throughout] Blood Pressure 144/28 131/88 148/34 O2 Sat by Pulse 98 100 Oximetry 12/23/18 12/23/18 12/23/18 22:01 22:15 22:18 Temperature 97.6 F Pulse Rate 73 71 71 Pulse Rate [ Anterior Bilateral Throughout] Pulse Rate [ From Monitor] Respiratory 18 18 18 Rate Respiratory Rate [Anterior Bilateral Throughout] Blood Pressure 122/39 131/88 122/39 O2 Sat by Pulse Oximetry 12/23/18 12/23/18 12/23/18 22:31 22:33 22:41 Temperature 97.6 F Pulse Rate 69 71 Pulse Rate [ Anterior Bilateral Throughout] Pulse Rate [ From Monitor] Respiratory 18 18 Rate Respiratory Rate [Anterior Bilateral Throughout] Blood Pressure 151/43 122/39 O2 Sat by Pulse Oximetry 12/23/18 12/23/18 12/23/18 22:51 22:58 23:01 Temperature Pulse Rate 70 67 70 Pulse Rate [ Anterior Bilateral Throughout] Pulse Rate [ From Monitor] Respiratory 18 18 Rate Respiratory Rate [Anterior Bilateral Throughout] Blood Pressure 127/49 119/24 119/24 O2 Sat by Pulse 100 Oximetry 12/23/18 12/23/18 12/23/18 23:03 23:11 23:21 Temperature 95.9 F L Pulse Rate 70 65 Pulse Rate [ Anterior Bilateral Throughout] Pulse Rate [ From Monitor] Respiratory 18 18 Rate Respiratory Rate [Anterior Bilateral Throughout] Blood Pressure 119/24 127/49 O2 Sat by Pulse Oximetry 12/23/18 12/23/18 12/23/18 23:30 23:41 23:43 Temperature 96.1 F L Pulse Rate 66 66 71 Pulse Rate [ Anterior Bilateral Throughout] Pulse Rate [ From Monitor] Respiratory 18 18 18 Rate Respiratory Rate [Anterior Bilateral Throughout] Blood Pressure 119/32 119/32 119/32 O2 Sat by Pulse Oximetry 12/23/18 12/24/18 12/24/18 23:51 00:00 00:11 Temperature Pulse Rate 72 70 72 Pulse Rate [ Anterior Bilateral Throughout] Pulse Rate [ 70 From Monitor] Respiratory 18 18 18 Rate Respiratory Rate [Anterior Bilateral Throughout] Blood Pressure 119/32 125/30 125/30 O2 Sat by Pulse Oximetry 12/24/18 12/24/18 12/24/18 00:16 00:21 00:31 Temperature 96.3 F L Pulse Rate 70 73 Pulse Rate [ Anterior Bilateral Throughout] Pulse Rate [ From Monitor] Respiratory 18 18 Rate Respiratory Rate [Anterior Bilateral Throughout] Blood Pressure 125/30 148/49 O2 Sat by Pulse Oximetry 12/24/18 12/24/18 12/24/18 00:33 00:41 00:51 Temperature 95.6 F L Pulse Rate 73 76 Pulse Rate [ Anterior Bilateral Throughout] Pulse Rate [ From Monitor] Respiratory 18 18 Rate Respiratory Rate [Anterior Bilateral Throughout] Blood Pressure 148/49 148/49 O2 Sat by Pulse Oximetry 12/24/18 12/24/18 12/24/18 01:00 01:13 01:15 Temperature 95.9 F L Pulse Rate 74 75 Pulse Rate [ Anterior Bilateral Throughout] Pulse Rate [ From Monitor] Respiratory 18 19 Rate Respiratory Rate [Anterior Bilateral Throughout] Blood Pressure 119/40 119/40 O2 Sat by Pulse Oximetry 12/24/18 12/24/18 12/24/18 01:31 01:45 02:00 Temperature Pulse Rate 76 75 Pulse Rate [ 69 Anterior Bilateral Throughout] Pulse Rate [ From Monitor] Respiratory 18 18 Rate Respiratory 18 Rate [Anterior Bilateral Throughout] Blood Pressure 191/49 191/49 O2 Sat by Pulse Oximetry 12/24/18 12/24/18 12/24/18 02:01 02:13 02:15 Temperature Pulse Rate 68 66 Pulse Rate [ 64 Anterior Bilateral Throughout] Pulse Rate [ From Monitor] Respiratory 18 18 Rate Respiratory 18 Rate [Anterior Bilateral Throughout] Blood Pressure 130/45 130/45 O2 Sat by Pulse 100 99 Oximetry 12/24/18 12/24/18 12/24/18 02:31 02:45 03:00 Temperature Pulse Rate 66 70 72 Pulse Rate [ Anterior Bilateral Throughout] Pulse Rate [ From Monitor] Respiratory 18 18 18 Rate Respiratory Rate [Anterior Bilateral Throughout] Blood Pressure 126/44 126/44 121/49 O2 Sat by Pulse 100 100 100 Oximetry 12/24/18 12/24/18 12/24/18 03:15 03:31 03:44 Temperature 97.9 F Pulse Rate 73 72 Pulse Rate [ Anterior Bilateral Throughout] Pulse Rate [ From Monitor] Respiratory 19 20 Rate Respiratory Rate [Anterior Bilateral Throughout] Blood Pressure 121/49 132/39 O2 Sat by Pulse 100 100 Oximetry 12/24/18 12/24/18 12/24/18 03:45 04:00 04:15 Temperature Pulse Rate 76 73 73 Pulse Rate [ Anterior Bilateral Throughout] Pulse Rate [ From Monitor] Respiratory 18 18 18 Rate Respiratory Rate [Anterior Bilateral Throughout] Blood Pressure 132/39 124/44 135/38 O2 Sat by Pulse 100 100 100 Oximetry 12/24/18 12/24/18 12/24/18 04:30 04:45 05:01 Temperature Pulse Rate 81 86 78 Pulse Rate [ Anterior Bilateral Throughout] Pulse Rate [ 77 From Monitor] Respiratory 10 L 20 18 Rate Respiratory Rate [Anterior Bilateral Throughout] Blood Pressure 135/38 114/95 123/108 O2 Sat by Pulse 98 94 99 Oximetry 12/24/18 12/24/18 12/24/18 05:30 06:01 06:31 Temperature Pulse Rate 74 75 80 Pulse Rate [ Anterior Bilateral Throughout] Pulse Rate [ From Monitor] Respiratory 18 17 18 Rate Respiratory Rate [Anterior Bilateral Throughout] Blood Pressure 108/45 124/44 140/50 O2 Sat by Pulse 99 99 99 Oximetry 12/24/18 12/24/18 12/24/18 07:00 07:22 07:27 Temperature Pulse Rate 80 81 Pulse Rate [ 81 Anterior Bilateral Throughout] Pulse Rate [ From Monitor] Respiratory 19 Rate Respiratory 18 Rate [Anterior Bilateral Throughout] Blood Pressure 149/50 149/50 O2 Sat by Pulse 100 100 Oximetry 12/24/18 07:30 Temperature Pulse Rate 79 Pulse Rate [ Anterior Bilateral Throughout] Pulse Rate [ From Monitor] Respiratory 18 Rate Respiratory Rate [Anterior Bilateral Throughout] Blood Pressure 132/47 O2 Sat by Pulse 100 Oximetry - General Appearance General appearance: chronically ill, intubated, frail EENT: ATNC, PERRL Neck: no JVD Respiratory: Present: Clear to Ascultation Cardiology: regular, S1S2 Gastrointestinal: normoactive bowel sounds Integumentary: warm and dry Neurologic: other (miminally responsive off sedation, not following commands, ) Musculoskeletal: other (+edema ) - Lab 12/24/18 06:00 12/24/18 06:00 Most recent lab results Calcium 7.5 mg/dL (8.4-10.2) L 12/24/18 06:00 Phosphorus 6.60 mg/dL (2.5-4.5) H 12/24/18 06:00 Magnesium 2.40 mg/dL (1.7-2.3) H 12/24/18 06:00 - Imaging Chest x-ray: report reviewed - Allied health notes Allied health notes reviewed: nursing Medications & Allergies - Medications Allergies/Adverse Reactions: Allergies Penicillins Allergy (Verified 12/08/18 13:13) Hives Home Medications: Home Medications Medication Instructions Recorded Confirmed Last Taken Type ALBUTEROL Inhaler (OR & NICU) 2 puff IH QID PRN #1 inhalation 12/21/16 12/08/18 Unknown Rx [Proair] Albuterol Sulfate [Albuterol 0.63% 0.63 mg IH TID PRN #90 ml 12/21/16 12/08/18 Unknown Rx NEBS] Amlodipine Besylate [Norvasc] 10 mg PO DAILY #90 tablet 12/21/16 12/08/18 Unknown Rx AtorvaSTATin [Lipitor] 20 mg PO QHS #90 tablet 12/21/16 12/08/18 Unknown Rx Hydralazine HCl [Apresoline TAB] 50 mg PO TID #90 tablet 12/21/16 12/08/18 Unknown Rx Metoprolol [Lopressor TAB] 25 mg PO BID #90 tablet 12/21/16 12/08/18 Unknown Rx Promethazine /Codeine 5 ml PO Q6H PRN #100 ml 12/21/16 12/08/18 Unknown Rx [Phenergan/Codeine 6.25-10 mg/5 ml] Active Medications: Generic Name Dose Route Start Last Admin Trade Name Freq PRN Reason Stop Dose Admin Acetaminophen 650 mg 12/09/18 01:00 12/09/18 10:00 Tylenol OR 650 mg Q4H PRN Administration Pain MILD(1-3)/Fever >100.5/TURNER Albuterol 2.5 mg 12/09/18 00:31 Proventil IH Q4HRT PRN Shortness Of Breath Albuterol/Ipratropium 1 ampul 12/09/18 02:00 12/24/18 07:27 Duoneb *Not For Prn Use* IH 1 ampul Q6HRT KOLE Administration Lipase/Protease/Amylase 1 each 12/09/18 04:05 Pancrebetsy Pena 10,500 Unit FEEDTUBE PRN PRN For Clogged Feeding Tube Dextrose 50 ml 12/24/18 00:42 12/24/18 00:30 D50w (25gm) Syringe IV 50 ml PRN PRN Administration Hypoglycemia Hydrophilic Ointment 1 applic 12/14/18 13:00 Vaseline Lip Therapy TP DIRECT PRN Dry tongue Norepinephrine 4 mg in 250 mls @ 7.5 mls/hr 12/18/18 18:00 12/19/18 18:00 Levophed Drip 4 Mg/Ns 250 Ml IV 0 mcg/min TITR KOLE 0 mls/hr Titration Protocol 2 MCG/MIN Meropenem 1,000 mg/ Sodium 100 mls @ 100 mls/hr 12/20/18 10:00 12/23/18 09:08 Chloride IV 100 mls/hr Q24HR KOLE Administration Protocol Sodium Chloride 1,000 mls @ 50 mls/hr 12/23/18 13:00 12/23/18 14:45 Nacl 0.9% 1000 Ml IV 50 mls/hr DIRECT KOLE Administration Insulin Human Lispro 0 unit 12/11/18 12:00 12/24/18 00:17 Humalog SUB-Q Not Given Q6HR [facility] Protocol Lansoprazole 30 mg 12/12/18 10:00 12/23/18 22:48 Prevacid Solutab FEEDTUBE 30 mg BID KOLE Administration Methylprednisolone Sodium Succinate 40 mg 12/23/18 17:00 12/23/18 22:50 Solu-Medrol IV 40 mg Q8HR KOLE Administration Midodrine 10 mg 12/18/18 19:01 12/23/18 15:46 Proamatine PO 10 mg TID@0800,1200,1600 KOLE Administration Multi-Ingred Cream/Lotion/Oil/Oint 1 applic 12/08/18 13:31 Artificial Tears Ophth Oint OU Q4HR PRN Dry Eye(s) Ondansetron HCl 4 mg 12/09/18 00:31 Zofran IV Q8H PRN Nausea And Vomiting Simple Syrup 15 ml 12/09/18 04:05 Simple Syrup FEEDTUBE PRN PRN Hypoglycemia Simple Syrup 30 ml 12/09/18 04:05 Simple Syrup FEEDTUBE PRN PRN Hypoglycemia Sodium Bicarbonate 325 mg 12/09/18 04:05 Sodium Bicarbonate FEEDTUBE PRN PRN For Clogged Feeding Tube Sodium Chloride 10 ml 12/09/18 10:00 12/23/18 22:48 Sodium Chloride Flush Syringe 10 Ml IV 10 ml BID KOLE Administration Sodium Chloride 10 ml 12/09/18 00:31 12/17/18 10:47 Sodium Chloride Flush Syringe 10 Ml IV 10 ml PRN PRN Administration LINE FLUSH
[2018-12-24] MEDS: PROAMATINE PO SCH (08:00)
[2018-12-24 08:59] LABS: Band Neutrophils # (Manual) 1.5 K/mm3; Basophils % (Manual) 0 % (0.0-1.8); Eosinophils % (Manual) 0 % (0.0-4.3); Monocytes % (Manual) 0 % (0.0-7.3); Total Cells Counted 100
[2018-12-24 09:00] LABS: Anisocytosis 1+; Giant Platelets Rare; Hypochromasia 1+; Platelet Estimate Consistent w Auto; Target Cells 1+
[2018-12-24] MEDS: MERREM 1,000 MG in NACL 0.9% 100 ML IV SCH (10:00)
[2018-12-24] MEDS: SODIUM CHLORIDE FLUSH SYRINGE 10 ML IV SCH ×3 (10:14→21:55)
[2018-12-24] MEDS: PREVACID SOLUTAB FEEDTUBE SCH ×2 (10:20→21:50)
[2018-12-24] MEDS: NACL 0.9% 1000 ML 1,000 ML IV SCH (12:37)
--- NOTE | 2018-12-24 14:56 | Progress Note ---
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 - Blood culture 12/08/2018 no growth so far. - Lactate 4 on admission. - unable to do LP due to thrombocytopenia, and has received empiric treatment anyways. 2) UTI: UA wbc 157, LE mod. Urine culture was not sent. Treated adequately with empiric abx. 3) Right otitis media / mastoiditis: Per grand-daughter, she had been c/o right ear pain and drainage week prior to admission. Patient was putting Neosporin and perhaps ear stephanie in the patient's ear. On physical exam, patient found to have purulent discharge from the right ear, and stephanie were removed by ED physician. There was probable perforation of the right sided tympanic membrane per ED physician. Got dexamethasone. 4) Acute encephalopathy: not better, from sepsis versus meningitis versus CVA. CT head extensive right MCA encephalomalcia, right mastoid opacities. 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 5) Acute respiratory failure: CXR showed small left pleural effusion. CT chest showed large pericardial effusion, LLL atelectasis v/s infiltrate and left pleural effusion. 6) ?GI bleed 7) Severe thrombocytopenia: worsening 8) Large pericardial effusion: TTE EF>50, no echo evidence of tamponade 9) Penicillin allergy: tolerated cefepime, meropenem 10) CKD: renally adjusted antibiotics Recommendations: - persistently low thrombocytopenia (could consider hematology consult, but prognosis is poor), creatinine rising, recommend hospice/comfort care only - continue renally adjusted Meropenem for now MD [facility] C: [phone] O: [phone] F: [phone] Subjective Date of service: 12/24/18 Principal diagnosis: coffee-ground drainage Interval history: Remains intubated, on the vent. Has heating blanket. Objective - Exam Narrative Exam: Physical Exam: Constitutional: unresponsive, intubated Head, Ears, Nose: Normocephalic, atraumatic. nose normal. External ears normal. Eyes: Conjunctivae/corneas clear. No icterus. No ptosis. Neck: Supple, no meningeal signs Oral: intubated, tongue protruding. ET tube + Cardiovascular: S1, S2 normal. Respiratory: Good air entry, clear to auscultation bilaterally GI: Soft, non-tender; bowel sounds hypoactive. No peritoneal signs Musculoskeletal: No pedal edema, no cyanosis. Skin: No rash or abscess. Skin breakdowns + near sacrum Hem/Lymphatic: No palpable cervical or supraclavicular nodes. No lymphangitis Psych: no agitation Neurological: unresponsive, intubated, on vent - Constitutional Vitals: Vital Signs Temp Pulse Resp BP Pulse Ox 99.2 F 84 18 159/50 99 12/24/18 08:00 12/24/18 12:00 12/24/18 12:00 12/24/18 12:00 12/24/18 12:00 Temperature -Last 24 Hours Temperature 99.2 F Temperature 97.9 F Temperature 95.9 F Temperature 95.6 F Temperature 96.3 F Temperature 96.1 F Temperature 95.9 F Temperature 97.6 F Temperature 97.6 F Temperature 97.6 F Temperature 97.1 F - Labs CBC & Chem 7: 12/24/18 06:00 12/24/18 06:00 Labs: Abnormal lab results 12/20/18 12/24/18 12/24/18 Range/Units 11:00 00:18 00:56 Hgb (10.1-14.3) gm/dl Hct (30.3-42.9) % MCV (79-97) fl MCH (28-32) pg RDW (13.2-15.2) % Plt Count (140-440) K/mm3 Seg Neuts % (Manual) (40.0-70.0) % Lymphocytes % (Manual) (13.4-35.0) % Seg Neutrophils # Man (1.8-7.7) K/mm3 Lymphocytes # (Manual) (1.2-5.4) K/mm3 Sodium (137-145) mmol/L BUN (7-17) mg/dL Creatinine (0.7-1.2) mg/dL Glucose (65-100) mg/dL POC Glucose 64 L 162 H (70-105) Calcium (8.4-10.2) mg/dL Phosphorus (2.5-4.5) mg/dL Magnesium (1.7-2.3) mg/dL AST (5-40) units/L Alkaline Phosphatase (35-129) units/L Total Protein (6.3-8.2) g/dL Albumin (3.9-5) g/dL Crossmatch See Detail 12/24/18 12/24/18 12/24/18 Range/Units 06:00 06:00 06:00 Hgb 9.7 L (10.1-14.3) gm/dl Hct 29.1 L (30.3-42.9) % MCV 76 L (79-97) fl MCH 25 L (28-32) pg RDW 24.9 H (13.2-15.2) % Plt Count 30 L D (140-440) K/mm3 Seg Neuts % (Manual) 86.0 H (40.0-70.0) % Lymphocytes % (Manual) 0 L (13.4-35.0) % Seg Neutrophils # Man 9.1 H (1.8-7.7) K/mm3 Lymphocytes # (Manual) 0.0 L (1.2-5.4) K/mm3 Sodium 132 L (137-145) mmol/L BUN 79 H (7-17) mg/dL Creatinine 2.4 H (0.7-1.2) mg/dL Glucose 117 H (65-100) mg/dL POC Glucose (70-105) Calcium 7.5 L (8.4-10.2) mg/dL Phosphorus 6.60 H (2.5-4.5) mg/dL Magnesium 2.40 H (1.7-2.3) mg/dL AST 48 H (5-40) units/L Alkaline Phosphatase 252 H (35-129) units/L Total Protein 5.5 L (6.3-8.2) g/dL Albumin 1.6 L (3.9-5) g/dL Crossmatch 12/24/18 Range/Units 12:03 Hgb (10.1-14.3) gm/dl Hct (30.3-42.9) % MCV (79-97) fl MCH (28-32) pg RDW (13.2-15.2) % Plt Count (140-440) K/mm3 Seg Neuts % (Manual) (40.0-70.0) % Lymphocytes % (Manual) (13.4-35.0) % Seg Neutrophils # Man (1.8-7.7) K/mm3 Lymphocytes # (Manual) (1.2-5.4) K/mm3 Sodium (137-145) mmol/L BUN (7-17) mg/dL Creatinine (0.7-1.2) mg/dL Glucose (65-100) mg/dL POC Glucose 153 H (70-105) Calcium (8.4-10.2) mg/dL Phosphorus (2.5-4.5) mg/dL Magnesium (1.7-2.3) mg/dL AST (5-40) units/L Alkaline Phosphatase (35-129) units/L Total Protein (6.3-8.2) g/dL Albumin (3.9-5) g/dL Crossmatch
--- NOTE | 2018-12-24 16:16 | Progress Note ---
Assessment and Plan Imp: 1. UTI 2. Sepsis 3. Acute respiratory failure, hypoxia 4. MARYANN 5. Thrombocytopenia 6. Acute encephalopathy Rec: 1. Prognosis is dismal; withdrawal of mechanical ventilation and palliative care would be the most appropriate management at this point, especially in light of apnea on PSV (she would require long-term ventilator facility until she dies); however, patient's grand-daughter wants everything done including trach/PEG; she has yet to produce power or real estate attorney documentation as requested by senior case manager, and we have been unable to get in touch with patient's sons who are legal next of kin -> will continue discussing with case management 2. ABX per ID 3. Stop bicarb drip per renal 4. TFs, GI PPx 5. SCDs; would try to keep platelets greater than 20K; agree with hematology evaluation No family present CCT 31 minutes Subjective Date of service: 12/24/18 Principal diagnosis: coffee-ground drainage Interval history: No events. Nonverbal on ventilator. Tongue edema unchanged. Per RT apneic on PSV. Active Medications Acetaminophen (Tylenol) 650 mg NJ Q4H PRN PRN Reason: Pain MILD(1-3)/Fever >100.5/TURNER Last Admin: 12/09/18 10:00 Dose: 650 mg Documented by: Albuterol (Proventil) 2.5 mg IH Q4HRT PRN PRN Reason: Shortness Of Breath Albuterol/Ipratropium (Duoneb *Not For Prn Use*) 1 ampul IH Q6HRT KOLE Last Admin: 12/24/18 15:44 Dose: 1 ampul Documented by: Lipase/Protease/Amylase ([place] Dr 10,500 Unit) 1 each FEEDTUBE PRN PRN PRN Reason: For Clogged Feeding Tube Dextrose (D50w (25gm) Syringe) 50 ml IV PRN PRN PRN Reason: Hypoglycemia Last Admin: 12/24/18 00:30 Dose: 50 ml Documented by: Hydrophilic Ointment (Vaseline Lip Therapy) 1 applic TP DIRECT PRN PRN Reason: Dry tongue Norepinephrine (Levophed Drip 4 Mg/Ns 250 Ml) 4 mg in 250 mls @ 7.5 mls/hr IV TITR KOLE; Protocol Last Titration: 12/19/18 18:00 Dose: 0 mcg/min, 0 mls/hr Documented by: Meropenem 1,000 mg/ Sodium (Chloride) 100 mls @ 100 mls/hr IV Q24HR [facility]; Protocol Last Admin: 12/24/18 10:00 Dose: 100 mls/hr Documented by: Sodium Chloride (Nacl 0.9% 1000 Ml) 1,000 mls @ 50 mls/hr IV DIRECT [facility] Last Admin: 12/24/18 12:37 Dose: 50 mls/hr Documented by: Insulin Human Lispro (Humalog) 0 unit SUB-Q Q6HR [facility]; Protocol Last Admin: 12/24/18 08:03 Dose: Not Given Documented by: Lansoprazole (Prevacid Solutab) 30 mg FEEDTUBE BID [facility] Last Admin: 12/24/18 10:20 Dose: 30 mg Documented by: Methylprednisolone Sodium Succinate (Solu-Medrol) 40 mg IV Q8HR [facility] Last Admin: 12/24/18 07:00 Dose: 40 mg Documented by: Midodrine (Proamatine) 10 mg PO TID@0800,1200,1600 [facility] Last Admin: 12/24/18 08:00 Dose: 10 mg Documented by: Multi-Ingred Cream/Lotion/Oil/Oint (Artificial Tears Ophth Oint) 1 applic OU Q4HR PRN PRN Reason: Dry Eye(s) Ondansetron HCl (Zofran) 4 mg IV Q8H PRN PRN Reason: Nausea And Vomiting Simple Syrup (Simple Syrup) 15 ml FEEDTUBE PRN PRN PRN Reason: Hypoglycemia Simple Syrup (Simple Syrup) 30 ml FEEDTUBE PRN PRN PRN Reason: Hypoglycemia Sodium Bicarbonate (Sodium Bicarbonate) 325 mg FEEDTUBE PRN PRN PRN Reason: For Clogged Feeding Tube Sodium Chloride (Sodium Chloride Flush Syringe 10 Ml) 10 ml IV BID [facility] Last Admin: 12/24/18 12:39 Dose: 10 ml Documented by: Sodium Chloride (Sodium Chloride Flush Syringe 10 Ml) 10 ml IV PRN PRN PRN Reason: LINE FLUSH Last Admin: 12/17/18 10:47 Dose: 10 ml Documented by: Objective Vital Signs - 12hr 12/24/18 12/24/18 12/24/18 04:15 04:30 04:45 Temperature Pulse Rate 73 81 86 Pulse Rate [ Anterior Bilateral Throughout] Pulse Rate [ 77 From Monitor] Respiratory 18 10 L 20 Rate Respiratory Rate [Anterior Bilateral Throughout] Blood Pressure 135/38 135/38 114/95 O2 Sat by Pulse 100 98 94 Oximetry 12/24/18 12/24/18 12/24/18 05:01 05:30 06:01 Temperature Pulse Rate 78 74 75 Pulse Rate [ Anterior Bilateral Throughout] Pulse Rate [ From Monitor] Respiratory 18 18 17 Rate Respiratory Rate [Anterior Bilateral Throughout] Blood Pressure 123/108 108/45 124/44 O2 Sat by Pulse 99 99 99 Oximetry 12/24/18 12/24/18 12/24/18 06:31 07:00 07:22 Temperature Pulse Rate 80 80 81 Pulse Rate [ Anterior Bilateral Throughout] Pulse Rate [ From Monitor] Respiratory 18 19 Rate Respiratory Rate [Anterior Bilateral Throughout] Blood Pressure 140/50 149/50 149/50 O2 Sat by Pulse 99 100 100 Oximetry 12/24/18 12/24/18 12/24/18 07:27 07:30 08:00 Temperature 99.2 F Pulse Rate 79 81 Pulse Rate [ 81 Anterior Bilateral Throughout] Pulse Rate [ From Monitor] Respiratory 18 18 Rate Respiratory 18 Rate [Anterior Bilateral Throughout] Blood Pressure 132/47 106/43 O2 Sat by Pulse 100 99 Oximetry 12/24/18 12/24/18 12/24/18 08:17 08:31 09:00 Temperature Pulse Rate 83 85 Pulse Rate [ 85 Anterior Bilateral Throughout] Pulse Rate [ From Monitor] Respiratory 19 19 Rate Respiratory 19 Rate [Anterior Bilateral Throughout] Blood Pressure 100/36 151/43 O2 Sat by Pulse 99 99 Oximetry 12/24/18 12/24/18 12/24/18 09:30 10:00 10:30 Temperature Pulse Rate 84 88 88 Pulse Rate [ Anterior Bilateral Throughout] Pulse Rate [ From Monitor] Respiratory 21 20 21 Rate Respiratory Rate [Anterior Bilateral Throughout] Blood Pressure 162/56 162/56 141/51 O2 Sat by Pulse 99 99 99 Oximetry 12/24/18 12/24/18 12/24/18 11:00 11:30 12:00 Temperature 104.4 F H Pulse Rate 88 85 84 Pulse Rate [ Anterior Bilateral Throughout] Pulse Rate [ From Monitor] Respiratory 17 19 18 Rate Respiratory Rate [Anterior Bilateral Throughout] Blood Pressure 151/52 145/52 159/50 O2 Sat by Pulse 99 99 99 Oximetry 12/24/18 12/24/18 12/24/18 12:30 13:00 13:30 Temperature Pulse Rate 86 82 78 Pulse Rate [ Anterior Bilateral Throughout] Pulse Rate [ From Monitor] Respiratory 16 17 18 Rate Respiratory Rate [Anterior Bilateral Throughout] Blood Pressure 161/50 168/96 147/37 O2 Sat by Pulse 99 99 99 Oximetry 12/24/18 12/24/18 12/24/18 14:00 14:30 15:00 Temperature Pulse Rate 82 81 84 Pulse Rate [ Anterior Bilateral Throughout] Pulse Rate [ From Monitor] Respiratory 18 18 16 Rate Respiratory Rate [Anterior Bilateral Throughout] Blood Pressure 150/48 144/51 150/53 O2 Sat by Pulse 99 99 99 Oximetry 12/24/18 12/24/18 15:30 15:44 Temperature Pulse Rate 80 Pulse Rate [ 82 Anterior Bilateral Throughout] Pulse Rate [ From Monitor] Respiratory 18 Rate Respiratory 18 Rate [Anterior Bilateral Throughout] Blood Pressure 152/47 O2 Sat by Pulse 99 Oximetry Constitutional: no acute distress, comatose, other (on vent cmv) Eyes: non-icteric ENT: oropharynx moist, other (ETT in position, large/edematous tongue) Neck: supple Ascultation: Bilateral: other (coarse BS bilaterally) Cardiovascular: regular rate and rhythm, other (pacemaker rhythm) Gastrointestinal: normoactive bowel sounds, non-distended Integumentary: normal Extremities: no cyanosis, no edema, pink and warm Neurologic: pupils equal and round, other (comatose, flaccid extremities, does not track or follow commands) CBC and BMP: 12/24/18 06:00 12/24/18 06:00 ABG, PT/INR, D-dimer: ABG POC ABG pH 7.325 (7.35-7.45) L 12/15/18 03:37 POC ABG pCO2 28.6 (35-45) L 12/15/18 03:37 POC ABG pO2 105 (80-105) 12/15/18 03:37 POC ABG HCO3 14.9 12/15/18 03:37 POC ABG Total CO2 16 12/15/18 03:37 POC ABG O2 Sat 98 12/15/18 03:37 PT/INR, D-dimer PT 20.2 Sec. (12.2-14.9) H 12/12/18 08:00 INR 1.61 (0.87-1.13) H 12/12/18 08:00 Abnormal lab findings: Abnormal Labs 12/08/18 12/08/18 12/08/18 12:58 13:40 13:40 WBC RBC Hgb Hct MCV MCH RDW Plt Count Lymph % (Auto) Lymph # Seg Neutrophils % Seg Neuts % (Manual) Lymphocytes % (Manual) Monocytes % (Manual) Nucleated RBC % Seg Neutrophils # Seg Neutrophils # Man Lymphocytes # (Manual) Monocytes # (Manual) PT INR POC ABG pH POC ABG pCO2 POC ABG pO2 Sodium Potassium Chloride Carbon Dioxide BUN Creatinine Glucose POC Glucose 143 H Lactic Acid Calcium Phosphorus Magnesium Total Bilirubin AST Alkaline Phosphatase Total Creatine Kinase C-Reactive Protein Total Protein Albumin TSH Free T4 Urine WBC (Auto) 157.0 H Crossmatch See Detail 12/08/18 12/08/18 12/08/18 13:40 13:40 13:40 WBC RBC 3.06 L Hgb 6.8 L Hct 21.1 L MCV 69 L MCH 22 L RDW 16.2 H Plt Count 56 L Lymph % (Auto) Lymph # Seg Neutrophils % Seg Neuts % (Manual) Lymphocytes % (Manual) 2.0 L Monocytes % (Manual) Nucleated RBC % Seg Neutrophils # Seg Neutrophils # Man Lymphocytes # (Manual) 0.2 L Monocytes # (Manual) PT INR POC ABG pH POC ABG pCO2 POC ABG pO2 Sodium Potassium 3.2 L Chloride Carbon Dioxide 18 L BUN 64 H Creatinine 1.5 H Glucose 145 H POC Glucose Lactic Acid 4.00 H* Calcium 7.7 L Phosphorus Magnesium Total Bilirubin AST Alkaline Phosphatase Total Creatine Kinase 258 H C-Reactive Protein Total Protein 4.6 L Albumin 1.8 L TSH Free T4 Urine WBC (Auto) Crossmatch 12/08/18 12/08/18 12/08/18 14:29 15:21 16:06 WBC RBC Hgb Hct MCV MCH RDW Plt Count Lymph % (Auto) Lymph # Seg Neutrophils % Seg Neuts % (Manual) Lymphocytes % (Manual) Monocytes % (Manual) Nucleated RBC % Seg Neutrophils # Seg Neutrophils # Man Lymphocytes # (Manual) Monocytes # (Manual) PT 20.5 H INR 1.64 H POC ABG pH POC ABG pCO2 34.2 L POC ABG pO2 465 H Sodium Potassium Chloride Carbon Dioxide BUN Creatinine Glucose POC Glucose Lactic Acid 3.00 H* Calcium Phosphorus Magnesium Total Bilirubin AST Alkaline Phosphatase Total Creatine Kinase C-Reactive Protein Total Protein Albumin TSH Free T4 Urine WBC (Auto) Crossmatch 12/09/18 12/09/18 12/09/18 02:31 05:36 05:36 WBC 14.5 H RBC Hgb Hct MCV 75 L MCH 25 L RDW 20.4 H Plt Count 68 L Lymph % (Auto) Lymph # Seg Neutrophils % Seg Neuts % (Manual) 81.0 H Lymphocytes % (Manual) 1.0 L Monocytes % (Manual) Nucleated RBC % Seg Neutrophils # Seg Neutrophils # Man 11.7 H Lymphocytes # (Manual) 0.1 L Monocytes # (Manual) PT INR POC ABG pH POC ABG pCO2 POC ABG pO2 Sodium Potassium Chloride 107.6 H Carbon Dioxide 18 L BUN 75 H Creatinine 1.9 H Glucose 136 H POC Glucose 152 H Lactic Acid Calcium 7.9 L Phosphorus Magnesium Total Bilirubin 1.60 H AST 44 H Alkaline Phosphatase Total Creatine Kinase C-Reactive Protein Total Protein 5.2 L Albumin 2.4 L TSH Free T4 Urine WBC (Auto) Crossmatch 12/09/18 12/09/18 12/09/18 05:43 10:47 13:46 WBC RBC Hgb Hct MCV MCH RDW Plt Count Lymph % (Auto) Lymph # Seg Neutrophils % Seg Neuts % (Manual) Lymphocytes % (Manual) Monocytes % (Manual) Nucleated RBC % Seg Neutrophils # Seg Neutrophils # Man Lymphocytes # (Manual) Monocytes # (Manual) PT INR POC ABG pH 7.308 L POC ABG pCO2 POC ABG pO2 183 H Sodium Potassium Chloride Carbon Dioxide BUN Creatinine Glucose POC Glucose 150 H 162 H Lactic Acid Calcium Phosphorus Magnesium Total Bilirubin AST Alkaline Phosphatase Total Creatine Kinase C-Reactive Protein Total Protein Albumin TSH Free T4 Urine WBC (Auto) Crossmatch 12/09/18 12/09/18 12/09/18 15:54 15:54 16:40 WBC RBC Hgb Hct MCV MCH RDW Plt Count Lymph % (Auto) Lymph # Seg Neutrophils % Seg Neuts % (Manual) Lymphocytes % (Manual) Monocytes % (Manual) Nucleated RBC % Seg Neutrophils # Seg Neutrophils # Man Lymphocytes # (Manual) Monocytes # (Manual) PT INR POC ABG pH POC ABG pCO2 POC ABG pO2 Sodium Potassium Chloride Carbon Dioxide BUN Creatinine Glucose POC Glucose 197 H Lactic Acid Calcium Phosphorus Magnesium Total Bilirubin AST Alkaline Phosphatase Total Creatine Kinase C-Reactive Protein Total Protein Albumin TSH 0.268 L Free T4 0.58 L Urine WBC (Auto) Crossmatch 12/09/18 12/09/18 12/09/18 18:18 18:18 21:51 WBC RBC Hgb Hct MCV MCH RDW Plt Count Lymph % (Auto) Lymph # Seg Neutrophils % Seg Neuts % (Manual) Lymphocytes % (Manual) Monocytes % (Manual) Nucleated RBC % Seg Neutrophils # Seg Neutrophils # Man Lymphocytes # (Manual) Monocytes # (Manual) PT INR POC ABG pH POC ABG pCO2 POC ABG pO2 Sodium Potassium Chloride 108.2 H Carbon Dioxide 16 L BUN 89 H Creatinine 2.3 H Glucose 180 H POC Glucose 198 H Lactic Acid Calcium 7.9 L Phosphorus Magnesium Total Bilirubin AST Alkaline Phosphatase Total Creatine Kinase C-Reactive Protein 19.60 H Total Protein Albumin TSH Free T4 Urine WBC (Auto) Crossmatch 12/10/18 12/10/18 12/10/18 01:59 04:14 04:38 WBC 11.5 H RBC Hgb Hct MCV 75 L MCH 25 L RDW 21.1 H Plt Count 81 L Lymph % (Auto) 5.6 L Lymph # 0.6 L Seg Neutrophils % 89.8 H Seg Neuts % (Manual) Lymphocytes % (Manual) Monocytes % (Manual) Nucleated RBC % Seg Neutrophils # 10.3 H Seg Neutrophils # Man Lymphocytes # (Manual) Monocytes # (Manual) PT INR POC ABG pH 7.273 L POC ABG pCO2 32.1 L POC ABG pO2 161 H Sodium Potassium Chloride Carbon Dioxide BUN Creatinine Glucose POC Glucose 219 H Lactic Acid Calcium Phosphorus Magnesium Total Bilirubin AST Alkaline Phosphatase Total Creatine Kinase C-Reactive Protein Total Protein Albumin TSH Free T4 Urine WBC (Auto) Crossmatch 12/10/18 12/10/18 12/10/18 04:38 05:07 07:26 WBC RBC Hgb Hct MCV MCH RDW Plt Count Lymph % (Auto) Lymph # Seg Neutrophils % Seg Neuts % (Manual) Lymphocytes % (Manual) Monocytes % (Manual) Nucleated RBC % Seg Neutrophils # Seg Neutrophils # Man Lymphocytes # (Manual) Monocytes # (Manual) PT INR POC ABG pH POC ABG pCO2 POC ABG pO2 Sodium Potassium Chloride 112.5 H Carbon Dioxide 14 L BUN 94 H Creatinine 2.4 H Glucose 207 H POC Glucose 221 H 212 H Lactic Acid Calcium 7.7 L Phosphorus Magnesium Total Bilirubin AST Alkaline Phosphatase Total Creatine Kinase C-Reactive Protein Total Protein Albumin TSH Free T4 Urine WBC (Auto) Crossmatch 12/10/18 12/10/18 12/10/18 10:40 11:15 14:21 WBC RBC Hgb Hct MCV MCH RDW Plt Count Lymph % (Auto) Lymph # Seg Neutrophils % Seg Neuts % (Manual) Lymphocytes % (Manual) Monocytes % (Manual) Nucleated RBC % Seg Neutrophils # Seg Neutrophils # Man Lymphocytes # (Manual) Monocytes # (Manual) PT 21.4 H INR 1.73 H POC ABG pH 7.214 L POC ABG pCO2 32.8 L POC ABG pO2 Sodium Potassium Chloride Carbon Dioxide BUN Creatinine Glucose POC Glucose 227 H Lactic Acid Calcium Phosphorus Magnesium Total Bilirubin AST Alkaline Phosphatase Total Creatine Kinase C-Reactive Protein Total Protein Albumin TSH Free T4 Urine WBC (Auto) Crossmatch 12/10/18 12/10/18 12/11/18 15:47 22:38 03:36 WBC RBC Hgb Hct MCV MCH RDW Plt Count Lymph % (Auto) Lymph # Seg Neutrophils % Seg Neuts % (Manual) Lymphocytes % (Manual) Monocytes % (Manual) Nucleated RBC % Seg Neutrophils # Seg Neutrophils # Man Lymphocytes # (Manual) Monocytes # (Manual) PT INR POC ABG pH POC ABG pCO2 26.2 L POC ABG pO2 138 H Sodium Potassium Chloride Carbon Dioxide BUN Creatinine Glucose POC Glucose 202 H 259 H Lactic Acid Calcium Phosphorus Magnesium Total Bilirubin AST Alkaline Phosphatase Total Creatine Kinase C-Reactive Protein Total Protein Albumin TSH Free T4 Urine WBC (Auto) Crossmatch 12/11/18 12/11/18 12/11/18 04:12 05:00 06:19 WBC RBC Hgb Hct MCV MCH RDW Plt Count Lymph % (Auto) Lymph # Seg Neutrophils % Seg Neuts % (Manual) Lymphocytes % (Manual) Monocytes % (Manual) Nucleated RBC % Seg Neutrophils # Seg Neutrophils # Man Lymphocytes # (Manual) Monocytes # (Manual) PT 19.5 H INR 1.54 H POC ABG pH POC ABG pCO2 24.6 L POC ABG pO2 119 H Sodium Potassium Chloride Carbon Dioxide BUN Creatinine Glucose POC Glucose 174 H Lactic Acid Calcium Phosphorus Magnesium Total Bilirubin AST Alkaline Phosphatase Total Creatine Kinase C-Reactive Protein Total Protein Albumin TSH Free T4 Urine WBC (Auto) Crossmatch 12/11/18 12/11/18 12/11/18 11:10 11:10 18:10 WBC 14.3 H RBC Hgb Hct MCV 73 L MCH 24 L RDW 21.5 H Plt Count Lymph % (Auto) Lymph # Seg Neutrophils % Seg Neuts % (Manual) Lymphocytes % (Manual) Monocytes % (Manual) Nucleated RBC % Seg Neutrophils # Seg Neutrophils # Man Lymphocytes # (Manual) Monocytes # (Manual) PT INR POC ABG pH POC ABG pCO2 POC ABG pO2 Sodium Potassium Chloride 110.5 H Carbon Dioxide 15 L BUN 101 H Creatinine 2.4 H Glucose 119 H POC Glucose 147 H Lactic Acid Calcium 7.7 L Phosphorus Magnesium Total Bilirubin AST Alkaline Phosphatase Total Creatine Kinase C-Reactive Protein Total Protein Albumin TSH Free T4 Urine WBC (Auto) Crossmatch 12/11/18 12/12/18 12/12/18 23:25 05:37 06:03 WBC RBC Hgb Hct MCV MCH RDW Plt Count Lymph % (Auto) Lymph # Seg Neutrophils % Seg Neuts % (Manual) Lymphocytes % (Manual) Monocytes % (Manual) Nucleated RBC % Seg Neutrophils # Seg Neutrophils # Man Lymphocytes # (Manual) Monocytes # (Manual) PT INR POC ABG pH 7.346 L POC ABG pCO2 28.3 L POC ABG pO2 120 H Sodium Potassium Chloride Carbon Dioxide BUN Creatinine Glucose POC Glucose 143 H 154 H Lactic Acid Calcium Phosphorus Magnesium Total Bilirubin AST Alkaline Phosphatase Total Creatine Kinase C-Reactive Protein Total Protein Albumin TSH Free T4 Urine WBC (Auto) Crossmatch 12/12/18 12/12/18 12/12/18 08:00 08:00 08:00 WBC 16.2 H RBC Hgb Hct MCV 74 L MCH 25 L RDW 21.9 H Plt Count 21 L Lymph % (Auto) Lymph # Seg Neutrophils % Seg Neuts % (Manual) Lymphocytes % (Manual) Monocytes % (Manual) Nucleated RBC % Seg Neutrophils # Seg Neutrophils # Man Lymphocytes # (Manual) Monocytes # (Manual) PT 20.2 H INR 1.61 H POC ABG pH POC ABG pCO2 POC ABG pO2 Sodium Potassium Chloride 107.4 H Carbon Dioxide 16 L BUN 101 H Creatinine 2.3 H Glucose 169 H POC Glucose Lactic Acid Calcium 8.2 L Phosphorus Magnesium Total Bilirubin AST Alkaline Phosphatase Total Creatine Kinase C-Reactive Protein Total Protein Albumin TSH Free T4 Urine WBC (Auto) Crossmatch 12/12/18 12/12/18 12/13/18 12:59 18:01 04:28 WBC 18.6 H RBC Hgb Hct MCV 74 L MCH 24 L RDW 21.8 H Plt Count 34 L Lymph % (Auto) Lymph # Seg Neutrophils % Seg Neuts % (Manual) 97.0 H Lymphocytes % (Manual) 2.0 L Monocytes % (Manual) Nucleated RBC % 1.0 H Seg Neutrophils # Seg Neutrophils # Man 18.0 H Lymphocytes # (Manual) 0.4 L Monocytes # (Manual) PT INR POC ABG pH POC ABG pCO2 POC ABG pO2 Sodium Potassium Chloride Carbon Dioxide BUN Creatinine Glucose POC Glucose 158 H 123 H Lactic Acid Calcium Phosphorus Magnesium Total Bilirubin AST Alkaline Phosphatase Total Creatine Kinase C-Reactive Protein Total Protein Albumin TSH Free T4 Urine WBC (Auto) Crossmatch 12/13/18 12/13/18 12/13/18 04:28 04:45 19:17 WBC RBC Hgb Hct MCV MCH RDW Plt Count Lymph % (Auto) Lymph # Seg Neutrophils % Seg Neuts % (Manual) Lymphocytes % (Manual) Monocytes % (Manual) Nucleated RBC % Seg Neutrophils # Seg Neutrophils # Man Lymphocytes # (Manual) Monocytes # (Manual) PT INR POC ABG pH 7.327 L POC ABG pCO2 31.1 L POC ABG pO2 136 H Sodium Potassium Chloride 112.0 H Carbon Dioxide 17 L BUN 97 H Creatinine 2.2 H Glucose POC Glucose 106 H Lactic Acid Calcium 8.1 L Phosphorus Magnesium Total Bilirubin AST Alkaline Phosphatase Total Creatine Kinase C-Reactive Protein Total Protein Albumin TSH Free T4 Urine WBC (Auto) Crossmatch 12/13/18 12/14/18 12/14/18 23:24 03:35 03:35 WBC 22.0 H RBC Hgb Hct MCV 75 L MCH 24 L RDW 22.2 H Plt Count 44 L Lymph % (Auto) Lymph # Seg Neutrophils % Seg Neuts % (Manual) 96.0 H Lymphocytes % (Manual) 3.0 L Monocytes % (Manual) Nucleated RBC % Seg Neutrophils # Seg Neutrophils # Man 21.1 H Lymphocytes # (Manual) 0.7 L Monocytes # (Manual) PT INR POC ABG pH POC ABG pCO2 POC ABG pO2 Sodium 136 L Potassium Chloride 107.2 H Carbon Dioxide 15 L BUN 87 H Creatinine 1.7 H Glucose 156 H POC Glucose 108 H Lactic Acid Calcium 7.7 L Phosphorus Magnesium Total Bilirubin AST Alkaline Phosphatase Total Creatine Kinase C-Reactive Protein Total Protein Albumin TSH Free T4 Urine WBC (Auto) Crossmatch 0312/14/18 12/14/18 04:58 05:37 12:10 WBC RBC Hgb Hct MCV MCH RDW Plt Count Lymph % (Auto) Lymph # Seg Neutrophils % Seg Neuts % (Manual) Lymphocytes % (Manual) Monocytes % (Manual) Nucleated RBC % Seg Neutrophils # Seg Neutrophils # Man Lymphocytes # (Manual) Monocytes # (Manual) PT INR POC ABG pH 7.301 L POC ABG pCO2 32.6 L POC ABG pO2 138 H Sodium Potassium Chloride Carbon Dioxide BUN Creatinine Glucose POC Glucose 178 H 208 H Lactic Acid Calcium Phosphorus Magnesium Total Bilirubin AST Alkaline Phosphatase Total Creatine Kinase C-Reactive Protein Total Protein Albumin TSH Free T4 Urine WBC (Auto) Crossmatch 12/14/18 12/14/18 12/15/18 17:44 23:16 03:37 WBC RBC Hgb Hct MCV MCH RDW Plt Count Lymph % (Auto) Lymph # Seg Neutrophils % Seg Neuts % (Manual) Lymphocytes % (Manual) Monocytes % (Manual) Nucleated RBC % Seg Neutrophils # Seg Neutrophils # Man Lymphocytes # (Manual) Monocytes # (Manual) PT INR POC ABG pH 7.325 L POC ABG pCO2 28.6 L POC ABG pO2 Sodium Potassium Chloride Carbon Dioxide BUN Creatinine Glucose POC Glucose 172 H 123 H Lactic Acid Calcium Phosphorus Magnesium Total Bilirubin AST Alkaline Phosphatase Total Creatine Kinase C-Reactive Protein Total Protein Albumin TSH Free T4 Urine WBC (Auto) Crossmatch 12/15/18 12/15/18 12/15/18 05:30 05:30 05:43 WBC 20.1 H RBC Hgb 9.5 L Hct 29.2 L MCV 74 L MCH 24 L RDW 22.7 H Plt Count 48 L Lymph % (Auto) Lymph # Seg Neutrophils % Seg Neuts % (Manual) 96.0 H Lymphocytes % (Manual) 1.0 L Monocytes % (Manual) Nucleated RBC % Seg Neutrophils # Seg Neutrophils # Man 19.3 H Lymphocytes # (Manual) 0.2 L Monocytes # (Manual) PT INR POC ABG pH POC ABG pCO2 POC ABG pO2 Sodium Potassium Chloride 110.8 H Carbon Dioxide 17 L BUN 83 H Creatinine 1.6 H Glucose 150 H POC Glucose 151 H Lactic Acid Calcium 7.7 L Phosphorus Magnesium Total Bilirubin AST Alkaline Phosphatase Total Creatine Kinase C-Reactive Protein Total Protein Albumin TSH Free T4 Urine WBC (Auto) Crossmatch 12/15/18 12/15/18 12/16/18 12:56 18:21 00:10 WBC RBC Hgb Hct MCV MCH RDW Plt Count Lymph % (Auto) Lymph # Seg Neutrophils % Seg Neuts % (Manual) Lymphocytes % (Manual) Monocytes % (Manual) Nucleated RBC % Seg Neutrophils # Seg Neutrophils # Man Lymphocytes # (Manual) Monocytes # (Manual) PT INR POC ABG pH POC ABG pCO2 POC ABG pO2 Sodium Potassium Chloride Carbon Dioxide BUN Creatinine Glucose POC Glucose 190 H 143 H 174 H Lactic Acid Calcium Phosphorus Magnesium Total Bilirubin AST Alkaline Phosphatase Total Creatine Kinase C-Reactive Protein Total Protein Albumin TSH Free T4 Urine WBC (Auto) Crossmatch 12/16/18 12/16/18 12/16/18 05:24 05:30 05:30 WBC 17.1 H RBC Hgb 9.1 L Hct 28.8 L MCV 76 L MCH 24 L RDW 23.5 H Plt Count 37 L Lymph % (Auto) Lymph # Seg Neutrophils % Seg Neuts % (Manual) Lymphocytes % (Manual) 9.0 L Monocytes % (Manual) 9.0 H Nucleated RBC % Seg Neutrophils # Seg Neutrophils # Man 9.6 H Lymphocytes # (Manual) Monocytes # (Manual) 1.5 H PT INR POC ABG pH POC ABG pCO2 POC ABG pO2 Sodium Potassium Chloride 110.8 H Carbon Dioxide 15 L BUN 81 H Creatinine 1.6 H Glucose 161 H POC Glucose 154 H Lactic Acid Calcium 7.6 L Phosphorus Magnesium Total Bilirubin AST Alkaline Phosphatase Total Creatine Kinase C-Reactive Protein Total Protein Albumin TSH Free T4 Urine WBC (Auto) Crossmatch 12/16/18 12/16/18 12/16/18 12:31 17:42 21:56 WBC RBC Hgb Hct MCV MCH RDW Plt Count Lymph % (Auto) Lymph # Seg Neutrophils % Seg Neuts % (Manual) Lymphocytes % (Manual) Monocytes % (Manual) Nucleated RBC % Seg Neutrophils # Seg Neutrophils # Man Lymphocytes # (Manual) Monocytes # (Manual) PT INR POC ABG pH POC ABG pCO2 POC ABG pO2 Sodium Potassium Chloride Carbon Dioxide BUN Creatinine Glucose POC Glucose 172 H 173 H 118 H Lactic Acid Calcium Phosphorus Magnesium Total Bilirubin AST Alkaline Phosphatase Total Creatine Kinase C-Reactive Protein Total Protein Albumin TSH Free T4 Urine WBC (Auto) Crossmatch 12/16/18 12/17/18 12/17/18 23:38 04:24 04:24 WBC 19.2 H RBC Hgb 9.5 L Hct 29.7 L MCV 76 L MCH 24 L RDW 24.4 H Plt Count 26 L Lymph % (Auto) Lymph # Seg Neutrophils % Seg Neuts % (Manual) Lymphocytes % (Manual) 6.0 L Monocytes % (Manual) Nucleated RBC % Seg Neutrophils # Seg Neutrophils # Man 13.1 H Lymphocytes # (Manual) Monocytes # (Manual) PT INR POC ABG pH POC ABG pCO2 POC ABG pO2 Sodium 134 L Potassium Chloride 110.0 H Carbon Dioxide 14 L BUN 83 H Creatinine 1.6 H Glucose POC Glucose 109 H Lactic Acid Calcium 7.8 L Phosphorus Magnesium Total Bilirubin AST Alkaline Phosphatase Total Creatine Kinase C-Reactive Protein Total Protein Albumin TSH Free T4 Urine WBC (Auto) Crossmatch 12/17/18 12/17/18 12/18/18 06:42 17:49 00:40 WBC RBC Hgb Hct MCV MCH RDW Plt Count Lymph % (Auto) Lymph # Seg Neutrophils % Seg Neuts % (Manual) Lymphocytes % (Manual) Monocytes % (Manual) Nucleated RBC % Seg Neutrophils # Seg Neutrophils # Man Lymphocytes # (Manual) Monocytes # (Manual) PT INR POC ABG pH POC ABG pCO2 POC ABG pO2 Sodium Potassium Chloride 113.1 H Carbon Dioxide 13 L BUN 82 H Creatinine 1.6 H Glucose POC Glucose 66 L 109 H Lactic Acid Calcium 8.0 L Phosphorus Magnesium Total Bilirubin AST Alkaline Phosphatase Total Creatine Kinase C-Reactive Protein Total Protein Albumin TSH Free T4 Urine WBC (Auto) Crossmatch 12/18/18 12/18/18 12/18/18 04:08 04:08 12:45 WBC 26.5 H RBC 3.63 L Hgb 8.7 L Hct 26.8 L MCV 74 L MCH 24 L RDW 23.3 H Plt Count 24 L Lymph % (Auto) Lymph # Seg Neutrophils % Seg Neuts % (Manual) Lymphocytes % (Manual) Monocytes % (Manual) Nucleated RBC % Seg Neutrophils # Seg Neutrophils # Man Lymphocytes # (Manual) Monocytes # (Manual) PT INR POC ABG pH POC ABG pCO2 POC ABG pO2 Sodium Potassium Chloride 114.3 H Carbon Dioxide 16 L BUN 82 H Creatinine 1.7 H Glucose POC Glucose 117 H Lactic Acid Calcium 7.8 L Phosphorus 5.10 H Magnesium Total Bilirubin AST Alkaline Phosphatase Total Creatine Kinase C-Reactive Protein Total Protein Albumin TSH Free T4 Urine WBC (Auto) Crossmatch 12/18/18 12/18/18 12/19/18 17:42 23:39 04:22 WBC 20.4 H RBC 3.01 L Hgb 7.2 L Hct 22.6 L MCV 75 L MCH 24 L RDW 24.5 H Plt Count 52 L D Lymph % (Auto) Lymph # Seg Neutrophils % Seg Neuts % (Manual) Lymphocytes % (Manual) Monocytes % (Manual) Nucleated RBC % Seg Neutrophils # Seg Neutrophils # Man Lymphocytes # (Manual) Monocytes # (Manual) PT INR POC ABG pH POC ABG pCO2 POC ABG pO2 Sodium Potassium Chloride Carbon Dioxide BUN Creatinine Glucose POC Glucose 121 H 184 H Lactic Acid Calcium Phosphorus Magnesium Total Bilirubin AST Alkaline Phosphatase Total Creatine Kinase C-Reactive Protein Total Protein Albumin TSH Free T4 Urine WBC (Auto) Crossmatch 12/19/18 12/19/18 12/19/18 04:22 12:43 18:12 WBC RBC Hgb Hct MCV MCH RDW Plt Count Lymph % (Auto) Lymph # Seg Neutrophils % Seg Neuts % (Manual) Lymphocytes % (Manual) Monocytes % (Manual) Nucleated RBC % Seg Neutrophils # Seg Neutrophils # Man Lymphocytes # (Manual) Monocytes # (Manual) PT INR POC ABG pH POC ABG pCO2 POC ABG pO2 Sodium Potassium Chloride 112.9 H Carbon Dioxide 15 L BUN 76 H Creatinine 1.8 H Glucose 107 H POC Glucose 141 H 227 H Lactic Acid Calcium 7.4 L Phosphorus Magnesium Total Bilirubin AST Alkaline Phosphatase Total Creatine Kinase C-Reactive Protein Total Protein Albumin TSH Free T4 Urine WBC (Auto) Crossmatch 12/19/18 12/19/18 12/20/18 23:55 Unknown 03:07 WBC 15.7 H RBC 2.92 L Hgb 7.2 L 7.1 L Hct 22.2 L 21.6 L MCV 74 L MCH 24 L RDW 24.3 H Plt Count 23 L Lymph % (Auto) Lymph # Seg Neutrophils % Seg Neuts % (Manual) Lymphocytes % (Manual) Monocytes % (Manual) Nucleated RBC % Seg Neutrophils # Seg Neutrophils # Man Lymphocytes # (Manual) Monocytes # (Manual) PT INR POC ABG pH POC ABG pCO2 POC ABG pO2 Sodium Potassium Chloride Carbon Dioxide BUN Creatinine Glucose POC Glucose 174 H Lactic Acid Calcium Phosphorus Magnesium Total Bilirubin AST Alkaline Phosphatase Total Creatine Kinase C-Reactive Protein Total Protein Albumin TSH Free T4 Urine WBC (Auto) Crossmatch 12/20/18 12/20/18 12/20/18 03:07 05:20 11:00 WBC RBC Hgb Hct MCV MCH RDW Plt Count Lymph % (Auto) Lymph # Seg Neutrophils % Seg Neuts % (Manual) Lymphocytes % (Manual) Monocytes % (Manual) Nucleated RBC % Seg Neutrophils # Seg Neutrophils # Man Lymphocytes # (Manual) Monocytes # (Manual) PT INR POC ABG pH POC ABG pCO2 POC ABG pO2 Sodium 136 L Potassium Chloride Carbon Dioxide 20 L BUN 79 H Creatinine 2.1 H Glucose 141 H POC Glucose 210 H Lactic Acid Calcium 7.5 L Phosphorus Magnesium Total Bilirubin AST Alkaline Phosphatase Total Creatine Kinase C-Reactive Protein Total Protein Albumin TSH Free T4 Urine WBC (Auto) Crossmatch See Detail 12/20/18 12/20/18 12/21/18 11:40 17:51 00:33 WBC RBC Hgb Hct MCV MCH RDW Plt Count Lymph % (Auto) Lymph # Seg Neutrophils % Seg Neuts % (Manual) Lymphocytes % (Manual) Monocytes % (Manual) Nucleated RBC % Seg Neutrophils # Seg Neutrophils # Man Lymphocytes # (Manual) Monocytes # (Manual) PT INR POC ABG pH POC ABG pCO2 POC ABG pO2 Sodium Potassium Chloride Carbon Dioxide BUN Creatinine Glucose POC Glucose 183 H 150 H 119 H Lactic Acid Calcium Phosphorus Magnesium Total Bilirubin AST Alkaline Phosphatase Total Creatine Kinase C-Reactive Protein Total Protein Albumin TSH Free T4 Urine WBC (Auto) Crossmatch 12/21/18 12/21/18 12/21/18 05:05 07:19 07:19 WBC 11.9 H RBC 2.83 L Hgb 6.9 L Hct 20.7 L MCV 73 L MCH 24 L RDW 23.9 H Plt Count 11 L* Lymph % (Auto) Lymph # Seg Neutrophils % Seg Neuts % (Manual) Lymphocytes % (Manual) Monocytes % (Manual) Nucleated RBC % Seg Neutrophils # Seg Neutrophils # Man Lymphocytes # (Manual) Monocytes # (Manual) PT INR POC ABG pH POC ABG pCO2 POC ABG pO2 Sodium 135 L Potassium Chloride Carbon Dioxide 21 L BUN 78 H Creatinine 2.3 H Glucose 143 H POC Glucose 165 H Lactic Acid Calcium 7.3 L Phosphorus Magnesium Total Bilirubin AST Alkaline Phosphatase Total Creatine Kinase C-Reactive Protein Total Protein Albumin TSH Free T4 Urine WBC (Auto) Crossmatch 12/21/18 12/21/18 12/21/18 11:55 17:39 18:00 WBC RBC Hgb 7.9 L Hct 23.8 L MCV MCH RDW Plt Count Lymph % (Auto) Lymph # Seg Neutrophils % Seg Neuts % (Manual) Lymphocytes % (Manual) Monocytes % (Manual) Nucleated RBC % Seg Neutrophils # Seg Neutrophils # Man Lymphocytes # (Manual) Monocytes # (Manual) PT INR POC ABG pH POC ABG pCO2 POC ABG pO2 Sodium Potassium Chloride Carbon Dioxide BUN Creatinine Glucose POC Glucose 125 H 108 H Lactic Acid Calcium Phosphorus Magnesium Total Bilirubin AST Alkaline Phosphatase Total Creatine Kinase C-Reactive Protein Total Protein Albumin TSH Free T4 Urine WBC (Auto) Crossmatch 12/21/18 12/22/18 12/22/18 23:55 05:35 05:35 WBC 11.8 H RBC Hgb 9.4 L Hct 28.3 L MCV 76 L MCH 25 L RDW 24.5 H Plt Count 26 L D Lymph % (Auto) Lymph # Seg Neutrophils % Seg Neuts % (Manual) Lymphocytes % (Manual) Monocytes % (Manual) Nucleated RBC % Seg Neutrophils # Seg Neutrophils # Man Lymphocytes # (Manual) Monocytes # (Manual) PT INR POC ABG pH POC ABG pCO2 POC ABG pO2 Sodium 132 L Potassium Chloride Carbon Dioxide 21 L BUN 79 H Creatinine 2.3 H Glucose 131 H POC Glucose 126 H Lactic Acid Calcium 7.4 L Phosphorus Magnesium Total Bilirubin AST Alkaline Phosphatase Total Creatine Kinase C-Reactive Protein Total Protein Albumin TSH Free T4 Urine WBC (Auto) Crossmatch 12/22/18 12/22/18 12/22/18 06:34 11:39 17:29 WBC RBC Hgb Hct MCV MCH RDW Plt Count Lymph % (Auto) Lymph # Seg Neutrophils % Seg Neuts % (Manual) Lymphocytes % (Manual) Monocytes % (Manual) Nucleated RBC % Seg Neutrophils # Seg Neutrophils # Man Lymphocytes # (Manual) Monocytes # (Manual) PT INR POC ABG pH POC ABG pCO2 POC ABG pO2 Sodium Potassium Chloride Carbon Dioxide BUN Creatinine Glucose POC Glucose 126 H 176 H 180 H Lactic Acid Calcium Phosphorus Magnesium Total Bilirubin AST Alkaline Phosphatase Total Creatine Kinase C-Reactive Protein Total Protein Albumin TSH Free T4 Urine WBC (Auto) Crossmatch 12/22/18 12/23/18 12/23/18 23:19 05:56 08:50 WBC RBC Hgb Hct MCV MCH RDW Plt Count Lymph % (Auto) Lymph # Seg Neutrophils % Seg Neuts % (Manual) Lymphocytes % (Manual) Monocytes % (Manual) Nucleated RBC % Seg Neutrophils # Seg Neutrophils # Man Lymphocytes # (Manual) Monocytes # (Manual) PT INR POC ABG pH POC ABG pCO2 POC ABG pO2 Sodium 134 L Potassium Chloride Carbon Dioxide BUN 80 H Creatinine 2.4 H Glucose 133 H POC Glucose 135 H 174 H Lactic Acid Calcium 7.0 L Phosphorus Magnesium Total Bilirubin AST Alkaline Phosphatase Total Creatine Kinase C-Reactive Protein Total Protein Albumin TSH Free T4 Urine WBC (Auto) Crossmatch 12/23/18 12/23/18 12/24/18 08:50 11:18 00:18 WBC RBC 3.29 L Hgb 8.5 L Hct 24.9 L MCV 76 L MCH 26 L RDW 24.9 H Plt Count 7 L* Lymph % (Auto) Lymph # Seg Neutrophils % Seg Neuts % (Manual) Lymphocytes % (Manual) Monocytes % (Manual) Nucleated RBC % Seg Neutrophils # Seg Neutrophils # Man Lymphocytes # (Manual) Monocytes # (Manual) PT INR POC ABG pH POC ABG pCO2 POC ABG pO2 Sodium Potassium Chloride Carbon Dioxide BUN Creatinine Glucose POC Glucose 164 H 64 L Lactic Acid Calcium Phosphorus Magnesium Total Bilirubin AST Alkaline Phosphatase Total Creatine Kinase C-Reactive Protein Total Protein Albumin TSH Free T4 Urine WBC (Auto) Crossmatch 12/24/18 12/24/18 12/24/18 00:56 06:00 06:00 WBC RBC Hgb 9.7 L Hct 29.1 L MCV 76 L MCH 25 L RDW 24.9 H Plt Count 30 L D Lymph % (Auto) Lymph # Seg Neutrophils % Seg Neuts % (Manual) 86.0 H Lymphocytes % (Manual) 0 L Monocytes % (Manual) Nucleated RBC % Seg Neutrophils # Seg Neutrophils # Man 9.1 H Lymphocytes # (Manual) 0.0 L Monocytes # (Manual) PT INR POC ABG pH POC ABG pCO2 POC ABG pO2 Sodium 132 L Potassium Chloride Carbon Dioxide BUN 79 H Creatinine 2.4 H Glucose 117 H POC Glucose 162 H Lactic Acid Calcium 7.5 L Phosphorus Magnesium Total Bilirubin AST 48 H Alkaline Phosphatase 252 H Total Creatine Kinase C-Reactive Protein Total Protein 5.5 L Albumin 1.6 L TSH Free T4 Urine WBC (Auto) Crossmatch 12/24/18 12/24/18 06:00 12:03 WBC RBC Hgb Hct MCV MCH RDW Plt Count Lymph % (Auto) Lymph # Seg Neutrophils % Seg Neuts % (Manual) Lymphocytes % (Manual) Monocytes % (Manual) Nucleated RBC % Seg Neutrophils # Seg Neutrophils # Man Lymphocytes # (Manual) Monocytes # (Manual) PT INR POC ABG pH POC ABG pCO2 POC ABG pO2 Sodium Potassium Chloride Carbon Dioxide BUN Creatinine Glucose POC Glucose 153 H Lactic Acid Calcium Phosphorus 6.60 H Magnesium 2.40 H Total Bilirubin AST Alkaline Phosphatase Total Creatine Kinase C-Reactive Protein Total Protein Albumin TSH Free T4 Urine WBC (Auto) Crossmatch Chest x-ray: report reviewed, image reviewed Allied health notes reviewed: case management
[2018-12-25] MEDS: HumaLOG SUB-Q SCH ×6 (00:08→19:17)
[2018-12-25] MEDS ORDERED: D10W 1,000 ML IV SCH ×2 (03:00)
[2018-12-25] MEDS: SOLU-Medrol IV SCH ×3 (05:03→13:03)
[2018-12-25] MEDS: DUONEB *Not for PRN Use IH SCH ×3 (08:16→19:04)
--- NOTE | 2018-12-25 09:08 | Progress Note ---
Assessment and Plan - Patient Problems (1) Acute kidney failure with tubular necrosis Current Visit: Yes Status: Acute Plan to address problem: Labs noted and her renal function is stable. Overall prognosis is poor. Will monitor closely. Started on gentle hydration with just NS @ 50 cc/hr. Avoid nephrotoxins. (2) Acute encephalopathy Current Visit: Yes Status: Acute Plan to address problem: s/p EEG . Results reviewed. Further management per primary team. (3) Sepsis Current Visit: Yes Status: Acute Qualifiers: Sepsis type: sepsis due to unspecified organism Qualified Code(s): A41.9 - Sepsis, unspecified organism Plan to address problem: unclear etiology. has been on broad spectrum antibiotic coverage. unable to undergo LP given his significant thrombocytopenia. Will follow up further recommendations per ID. (4) Acute post-hemorrhagic anemia Current Visit: Yes Status: Acute Plan to address problem: H/H is stable at this time. Continue to monitor, transfuse prn to maintain HgB>7.0 (5) Acute respiratory failure with hypoxia Current Visit: Yes Status: Acute Plan to address problem: Continues on ventilatory support, and further management per ICU/Pulmonary team. (6) Pericardial effusion without cardiac tamponade Current Visit: Yes Status: Acute Plan to address problem: s/p ECHO with findings not consistent with cardiac tamponade. Will continue to monitor, further recs per cardiology. Subjective Date of service: 12/25/18 Principal diagnosis: coffee-ground drainage Interval history: No significant changes. Labs noted. unresponsive off sedation. Objective - Vital Signs Vital signs: Vital Signs - 12hr 12/24/18 12/24/18 12/24/18 21:30 22:00 22:30 Temperature Pulse Rate 84 88 88 Pulse Rate [ Anterior Bilateral Throughout] Pulse Rate [ Apical] Pulse Rate [ From Monitor] Pulse Rate [ Throughout] Respiratory 18 18 19 Rate Respiratory Rate [Anterior Bilateral Throughout] Respiratory Rate [ Throughout] Blood Pressure 183/40 156/55 146/51 O2 Sat by Pulse 99 99 99 Oximetry 12/24/18 12/24/18 12/24/18 23:00 23:30 23:43 Temperature Pulse Rate 89 88 Pulse Rate [ Anterior Bilateral Throughout] Pulse Rate [ 75 Apical] Pulse Rate [ 75 From Monitor] Pulse Rate [ Throughout] Respiratory 18 18 17 Rate Respiratory Rate [Anterior Bilateral Throughout] Respiratory Rate [ Throughout] Blood Pressure 155/48 155/48 O2 Sat by Pulse 100 99 100 Oximetry 12/24/18 12/24/18 12/24/18 23:48 23:50 23:51 Temperature 99.5 F Pulse Rate 86 78 Pulse Rate [ Anterior Bilateral Throughout] Pulse Rate [ Apical] Pulse Rate [ From Monitor] Pulse Rate [ Throughout] Respiratory 18 Rate Respiratory Rate [Anterior Bilateral Throughout] Respiratory Rate [ Throughout] Blood Pressure 155/48 155/48 O2 Sat by Pulse 99 100 Oximetry 12/25/18 12/25/18 12/25/18 00:00 00:30 01:00 Temperature Pulse Rate 84 83 82 Pulse Rate [ Anterior Bilateral Throughout] Pulse Rate [ Apical] Pulse Rate [ From Monitor] Pulse Rate [ Throughout] Respiratory 18 18 18 Rate Respiratory Rate [Anterior Bilateral Throughout] Respiratory Rate [ Throughout] Blood Pressure 148/42 137/44 126/53 O2 Sat by Pulse 99 99 99 Oximetry 12/25/18 12/25/18 12/25/18 01:30 01:46 02:00 Temperature Pulse Rate 70 78 80 Pulse Rate [ Anterior Bilateral Throughout] Pulse Rate [ Apical] Pulse Rate [ From Monitor] Pulse Rate [ Throughout] Respiratory 18 18 Rate Respiratory Rate [Anterior Bilateral Throughout] Respiratory Rate [ Throughout] Blood Pressure 150/64 150/64 137/43 O2 Sat by Pulse 99 100 99 Oximetry 12/25/18 12/25/18 12/25/18 02:30 03:00 03:30 Temperature Pulse Rate 82 80 Pulse Rate [ Anterior Bilateral Throughout] Pulse Rate [ Apical] Pulse Rate [ From Monitor] Pulse Rate [ Throughout] Respiratory 18 17 Rate Respiratory Rate [Anterior Bilateral Throughout] Respiratory Rate [ Throughout] Blood Pressure 138/42 137/38 146/59 O2 Sat by Pulse 99 99 99 Oximetry 12/25/18 12/25/18 12/25/18 04:00 04:30 05:00 Temperature 99.1 F Pulse Rate 73 71 135 H Pulse Rate [ Anterior Bilateral Throughout] Pulse Rate [ 72 Apical] Pulse Rate [ 72 From Monitor] Pulse Rate [ Throughout] Respiratory 18 18 18 Rate Respiratory Rate [Anterior Bilateral Throughout] Respiratory Rate [ Throughout] Blood Pressure 127/34 138/36 137/50 O2 Sat by Pulse 100 100 100 Oximetry 12/25/18 12/25/18 12/25/18 05:30 06:00 06:30 Temperature Pulse Rate 141 H 72 74 Pulse Rate [ Anterior Bilateral Throughout] Pulse Rate [ Apical] Pulse Rate [ From Monitor] Pulse Rate [ Throughout] Respiratory 17 18 19 Rate Respiratory Rate [Anterior Bilateral Throughout] Respiratory Rate [ Throughout] Blood Pressure 141/63 137/42 130/37 O2 Sat by Pulse 100 100 100 Oximetry 12/25/18 12/25/18 12/25/18 07:00 07:03 07:30 Temperature Pulse Rate 70 71 70 Pulse Rate [ Anterior Bilateral Throughout] Pulse Rate [ Apical] Pulse Rate [ From Monitor] Pulse Rate [ Throughout] Respiratory 17 19 Rate Respiratory Rate [Anterior Bilateral Throughout] Respiratory Rate [ Throughout] Blood Pressure 138/33 138/33 142/34 O2 Sat by Pulse 100 100 100 Oximetry 12/25/18 12/25/18 12/25/18 08:00 08:25 08:30 Temperature Pulse Rate 137 H 80 Pulse Rate [ 84 Anterior Bilateral Throughout] Pulse Rate [ Apical] Pulse Rate [ From Monitor] Pulse Rate [ 76 Throughout] Respiratory 20 18 Rate Respiratory 18 Rate [Anterior Bilateral Throughout] Respiratory 18 Rate [ Throughout] Blood Pressure 148/65 135/49 O2 Sat by Pulse 100 99 Oximetry - General Appearance General appearance: chronically ill, intubated, frail EENT: ATNC Neck: no JVD Respiratory: Present: Decreased Breath Sounds Cardiology: tachycardia Gastrointestinal: normoactive bowel sounds Integumentary: warm and dry Neurologic: other (unresponsive off sedation) Musculoskeletal: other (+edema ) - Lab 12/24/18 06:00 12/24/18 06:00 Most recent lab results Calcium 7.5 mg/dL (8.4-10.2) L 12/24/18 06:00 Phosphorus 6.60 mg/dL (2.5-4.5) H 12/24/18 06:00 Magnesium 2.40 mg/dL (1.7-2.3) H 12/24/18 06:00 - Imaging Chest x-ray: report reviewed - Allied health notes Allied health notes reviewed: nursing Medications & Allergies - Medications Allergies/Adverse Reactions: Allergies Penicillins Allergy (Verified 12/08/18 13:13) Hives Home Medications: Home Medications Medication Instructions Recorded Confirmed Last Taken Type ALBUTEROL Inhaler (OR & NICU) 2 puff IH QID PRN #1 inhalation 12/21/16 12/08/18 Unknown Rx [Proair] Albuterol Sulfate [Albuterol 0.63% 0.63 mg IH TID PRN #90 ml 12/21/16 12/08/18 Unknown Rx NEBS] Amlodipine Besylate [Norvasc] 10 mg PO DAILY #90 tablet 12/21/16 12/08/18 Unknown Rx AtorvaSTATin [Lipitor] 20 mg PO QHS #90 tablet 12/21/16 12/08/18 Unknown Rx Hydralazine HCl [Apresoline TAB] 50 mg PO TID #90 tablet 12/21/16 12/08/18 Unknown Rx Metoprolol [Lopressor TAB] 25 mg PO BID #90 tablet 12/21/16 12/08/18 Unknown Rx Promethazine /Codeine 5 ml PO Q6H PRN #100 ml 12/21/16 12/08/18 Unknown Rx [Phenergan/Codeine 6.25-10 mg/5 ml] Active Medications: Generic Name Dose Route Start Last Admin Trade Name Freq PRN Reason Stop Dose Admin Acetaminophen 650 mg 12/09/18 01:00 12/09/18 10:00 Tylenol GA 650 mg Q4H PRN Administration Pain MILD(1-3)/Fever >100.5/TURNER Albuterol 2.5 mg 12/09/18 00:31 Proventil IH Q4HRT PRN Shortness Of Breath Albuterol/Ipratropium 1 ampul 12/09/18 02:00 12/25/18 08:16 Duoneb *Not For Prn Use* IH 1 ampul Q6HRT KOLE Administration Lipase/Protease/Amylase 1 each 12/09/18 04:[address] 10,500 Unit FEEDTUBE PRN PRN For Clogged Feeding Tube Dextrose 50 ml 12/24/18 00:42 12/24/18 00:30 D50w (25gm) Syringe IV 50 ml PRN PRN Administration Hypoglycemia Hydrophilic Ointment 1 applic 12/14/18 13:00 Vaseline Lip Therapy TP DIRECT PRN Dry tongue Norepinephrine 4 mg in 250 mls @ 7.5 mls/hr 12/18/18 18:00 12/19/18 18:00 Levophed Drip 4 Mg/Ns 250 Ml IV 0 mcg/min TITR KOLE 0 mls/hr Titration Protocol 2 MCG/MIN Meropenem 1,000 mg/ Sodium 100 mls @ 100 mls/hr 12/20/18 10:00 12/24/18 10:00 Chloride IV 100 mls/hr Q24HR KOLE Administration Protocol Sodium Chloride 1,000 mls @ 50 mls/hr 12/23/18 13:00 12/24/18 12:37 Nacl 0.9% 1000 Ml IV 50 mls/hr DIRECT KOLE Administration Insulin Human Lispro 0 unit 12/11/18 12:00 12/25/18 08:43 Humalog SUB-Q Not Given Q6HR [facility] Protocol Lansoprazole 30 mg 12/12/18 10:00 12/24/18 21:50 Prevacid Solutab FEEDTUBE 30 mg BID KOLE Administration Methylprednisolone Sodium Succinate 40 mg 12/23/18 17:00 12/25/18 05:03 Solu-Medrol IV 40 mg Q8HR KOLE Administration Midodrine 10 mg 12/18/18 19:01 12/24/18 08:00 Proamatine PO 10 mg TID@0800,1200,1600 KOLE Administration Multi-Ingred Cream/Lotion/Oil/Oint 1 applic 12/08/18 13:31 Artificial Tears Ophth Oint OU Q4HR PRN Dry Eye(s) Ondansetron HCl 4 mg 12/09/18 00:31 Zofran IV Q8H PRN Nausea And Vomiting Simple Syrup 15 ml 12/09/18 04:05 Simple Syrup FEEDTUBE PRN PRN Hypoglycemia Simple Syrup 30 ml 12/09/18 04:05 Simple Syrup FEEDTUBE PRN PRN Hypoglycemia Sodium Bicarbonate 325 mg 12/09/18 04:05 Sodium Bicarbonate FEEDTUBE PRN PRN For Clogged Feeding Tube Sodium Chloride 10 ml 12/09/18 10:00 12/24/18 21:55 Sodium Chloride Flush Syringe 10 Ml IV 10 ml BID KOLE Administration Sodium Chloride 10 ml 12/09/18 00:31 12/17/18 10:47 Sodium Chloride Flush Syringe 10 Ml IV 10 ml PRN PRN Administration LINE FLUSH
[2018-12-25] MEDS: NACL 0.9% 1000 ML 1,000 ML IV SCH (09:16)
[2018-12-25] MEDS: PREVACID SOLUTAB FEEDTUBE SCH ×2 (09:16→21:18)
[2018-12-25] MEDS: PROAMATINE PO SCH ×5 (09:17→19:16)
--- NOTE | 2018-12-25 10:36 | Progress Note ---
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 - Blood culture 12/08/2018 no growth so far. - Lactate 4 on admission. - unable to do LP due to thrombocytopenia, and has received empiric treatment anyways. 2) UTI: UA wbc 157, LE mod. Urine culture was not sent. Treated adequately with empiric abx. 3) Right otitis media / mastoiditis: Per grand-daughter, she had been c/o right ear pain and drainage week prior to admission. Patient was putting Neosporin and perhaps ear stephanie in the patient's ear. On physical exam, patient found to have purulent discharge from the right ear, and stephanie were removed by ED physician. There was probable perforation of the right sided tympanic membrane per ED physician. Got dexamethasone. 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 Completed several days of broad spectrum abx. 4) Acute encephalopathy: not better, from sepsis versus meningitis versus CVA. CT head extensive right MCA encephalomalcia, right mastoid opacities. 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 5) Acute respiratory failure: CXR showed small left pleural effusion. CT chest showed large pericardial effusion, LLL atelectasis v/s infiltrate and left pleural effusion. 6) ?GI bleed 7) Severe thrombocytopenia: worsening. (could consider hematology consult, but prognosis is poor), creatinine rising, recommend hospice/comfort care only. 8) Large pericardial effusion: TTE EF>50, no echo evidence of tamponade 9) Penicillin allergy: tolerated cefepime, meropenem. 10) CKD: renally adjusted antibiotics Recommendations: - will discontinue Meropenem today (overall, patient has completed several days of broad spectrum IV abx since admission) - poor prognosis, recommend palliative care MD [facility] C: [phone] O: [phone] F: [phone] Subjective Date of service: 12/25/18 Principal diagnosis: coffee-ground drainage Interval history: Patient had one high fever yesterday, unclear if related to heating blanket, di scussed with RN, heating blanket now off, no fever. Had 2 large loose BMs last night, one today. Tube feeds currently off. Having some issues with HR fluctuation. Remains on the vent, unresponsive. Objective - Exam Narrative Exam: Physical Exam: Constitutional: unresponsive, intubated Head, Ears, Nose: Normocephalic, atraumatic. nose normal. External ears normal. Eyes: Conjunctivae/corneas clear. No icterus. No ptosis. Neck: Supple, no meningeal signs Oral: intubated, tongue protruding. ET tube + Cardiovascular: S1, S2 normal. Respiratory: Good air entry, clear to auscultation bilaterally GI: Soft, non-tender; bowel sounds +, No peritoneal signs Musculoskeletal: No pedal edema, no cyanosis. Skin: No rash or abscess. Skin breakdowns + near sacrum Hem/Lymphatic: No palpable cervical or supraclavicular nodes. No lymphangitis Psych: no agitation Neurological: unresponsive, intubated, on vent - Constitutional Vitals: Vital Signs Temp Pulse Resp BP Pulse Ox 99.1 F 80 18 135/49 99 12/25/18 04:00 12/25/18 08:30 12/25/18 08:30 12/25/18 08:30 12/25/18 08:30 Temperature -Last 24 Hours Temperature 99.1 F Temperature 99.5 F Temperature 100 F Temperature 99.6 F Temperature 99.6 F Temperature 104.4 F - Labs CBC & Chem 7: 12/24/18 06:00 12/24/18 06:00 Labs: Abnormal lab results 12/24/18 12/24/18 12/24/18 Range/Units 12:03 18:45 23:08 POC Glucose 153 H 133 H 125 H (70-105) 12/25/18 Range/Units 06:36 POC Glucose 176 H (70-105)
--- NOTE | 2018-12-25 12:40 | Progress Note ---
Assessment and Plan Imp: 1. UTI 2. Sepsis 3. Acute respiratory failure, hypoxia 4. MARYANN 5. Thrombocytopenia 6. Acute encephalopathy Rec: 1. Prognosis is dismal; withdrawal of mechanical ventilation and palliative care would be the most appropriate management at this point, especially in light of apnea on PSV (she would require long-term ventilator facility until she dies); reviewed caseworker intake notes -> Grand-daughter is primary decision maker as stated by patient's son; I tried to call the grand-daughter today to d/w her re: poor prognosis and plans moving forward, no answer 2. ABX per ID 3. IVFs per renal 4. TFs, GI PPx 5. SCDs; would try to keep platelets greater than 20K; agree with hematology evaluation 6. Stop Solumedrol 7. Monitor temp -> ? spurious due to warming blanket; nothing to suggest sepsis No family present CCT 31 minutes Subjective Date of service: 12/25/18 Principal diagnosis: Acute respiratory failure Interval history: Had isolated fever on warming blanket. Nonverbal on ventilator. Tongue edema/protrusion unchanged. 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 Active Medications Acetaminophen (Tylenol) 650 mg LA Q4H PRN PRN Reason: Pain MILD(1-3)/Fever >100.5/TURNER Last Admin: 12/09/18 10:00 Dose: 650 mg Documented by: Albuterol (Proventil) 2.5 mg IH Q4HRT PRN PRN Reason: Shortness Of Breath Albuterol/Ipratropium (Duoneb *Not For Prn Use*) 1 ampul IH Q6HRT KOLE Last Admin: 12/25/18 13:50 Dose: 1 ampul Documented by: Lipase/Protease/Amylase (Pancreaze Dr 10,500 Unit) 1 each FEEDTUBE PRN PRN PRN Reason: For Clogged Feeding Tube Dextrose (D50w (25gm) Syringe) 50 ml IV PRN PRN PRN Reason: Hypoglycemia Last Admin: 12/24/18 00:30 Dose: 50 ml Documented by: Hydrophilic Ointment (Vaseline Lip Therapy) 1 applic TP DIRECT PRN PRN Reason: Dry tongue Norepinephrine (Levophed Drip 4 Mg/Ns 250 Ml) 4 mg in 250 mls @ 7.5 mls/hr IV TITR KOLE; Protocol Last Titration: 12/19/18 18:00 Dose: 0 mcg/min, 0 mls/hr Documented by: Sodium Chloride (Nacl 0.9% 1000 Ml) 1,000 mls @ 50 mls/hr IV DIRECT [facility] Last Admin: 12/25/18 09:16 Dose: 50 mls/hr Documented by: Insulin Human Lispro (Humalog) 0 unit SUB-Q Q6HR [facility]; Protocol Last Admin: 12/25/18 12:59 Dose: 3 unit Documented by: Lansoprazole (Prevacid Solutab) 30 mg FEEDTUBE BID [facility] Last Admin: 12/25/18 09:16 Dose: 30 mg Documented by: Methylprednisolone Sodium Succinate (Solu-Medrol) 40 mg IV Q8HR [facility] Last Admin: 12/25/18 13:03 Dose: 40 mg Documented by: Midodrine (Proamatine) 10 mg PO TID@0800,1200,1600 [facility] Last Admin: 12/25/18 12:59 Dose: 10 mg Documented by: Multi-Ingred Cream/Lotion/Oil/Oint (Artificial Tears Ophth Oint) 1 applic OU Q4HR PRN PRN Reason: Dry Eye(s) Ondansetron HCl (Zofran) 4 mg IV Q8H PRN PRN Reason: Nausea And Vomiting Simple Syrup (Simple Syrup) 15 ml FEEDTUBE PRN PRN PRN Reason: Hypoglycemia Simple Syrup (Simple Syrup) 30 ml FEEDTUBE PRN PRN PRN Reason: Hypoglycemia Sodium Bicarbonate (Sodium Bicarbonate) 325 mg FEEDTUBE PRN PRN PRN Reason: For Clogged Feeding Tube Sodium Chloride (Sodium Chloride Flush Syringe 10 Ml) 10 ml IV BID [facility] Last Admin: 12/25/18 12:47 Dose: Not Given Documented by: Sodium Chloride (Sodium Chloride Flush Syringe 10 Ml) 10 ml IV PRN PRN PRN Reason: LINE FLUSH Last Admin: 12/17/18 10:47 Dose: 10 ml Documented by: Objective Vital Signs - 12hr 12/25/18 12/25/18 12/25/18 01:00 01:30 01:46 Temperature Pulse Rate 82 70 78 Pulse Rate [ Anterior Bilateral Throughout] Pulse Rate [ Apical] Pulse Rate [ From Monitor] Pulse Rate [ Throughout] Respiratory 18 18 Rate Respiratory Rate [Anterior Bilateral Throughout] Respiratory Rate [ Throughout] Blood Pressure 126/53 150/64 150/64 O2 Sat by Pulse 99 99 100 Oximetry 12/25/18 12/25/18 12/25/18 02:00 02:30 03:00 Temperature Pulse Rate 80 82 80 Pulse Rate [ Anterior Bilateral Throughout] Pulse Rate [ Apical] Pulse Rate [ From Monitor] Pulse Rate [ Throughout] Respiratory 18 18 17 Rate Respiratory Rate [Anterior Bilateral Throughout] Respiratory Rate [ Throughout] Blood Pressure 137/43 138/42 137/38 O2 Sat by Pulse 99 99 99 Oximetry 12/25/18 12/25/18 12/25/18 03:30 04:00 04:30 Temperature 99.1 F Pulse Rate 73 71 Pulse Rate [ Anterior Bilateral Throughout] Pulse Rate [ 72 Apical] Pulse Rate [ 72 From Monitor] Pulse Rate [ Throughout] Respiratory 18 18 Rate Respiratory Rate [Anterior Bilateral Throughout] Respiratory Rate [ Throughout] Blood Pressure 146/59 127/34 138/36 O2 Sat by Pulse 99 100 100 Oximetry 12/25/18 12/25/18 12/25/18 05:00 05:30 06:00 Temperature Pulse Rate 135 H 141 H 72 Pulse Rate [ Anterior Bilateral Throughout] Pulse Rate [ Apical] Pulse Rate [ From Monitor] Pulse Rate [ Throughout] Respiratory 18 17 18 Rate Respiratory Rate [Anterior Bilateral Throughout] Respiratory Rate [ Throughout] Blood Pressure 137/50 141/63 137/42 O2 Sat by Pulse 100 100 100 Oximetry 12/25/18 12/25/18 12/25/18 06:30 07:00 07:03 Temperature Pulse Rate 74 70 71 Pulse Rate [ Anterior Bilateral Throughout] Pulse Rate [ Apical] Pulse Rate [ From Monitor] Pulse Rate [ Throughout] Respiratory 19 17 Rate Respiratory Rate [Anterior Bilateral Throughout] Respiratory Rate [ Throughout] Blood Pressure 130/37 138/33 138/33 O2 Sat by Pulse 100 100 100 Oximetry 12/25/18 12/25/18 12/25/18 07:30 08:00 08:25 Temperature Pulse Rate 70 137 H Pulse Rate [ 84 Anterior Bilateral Throughout] Pulse Rate [ Apical] Pulse Rate [ From Monitor] Pulse Rate [ 76 Throughout] Respiratory 19 20 Rate Respiratory 18 Rate [Anterior Bilateral Throughout] Respiratory 18 Rate [ Throughout] Blood Pressure 142/34 148/65 O2 Sat by Pulse 100 100 Oximetry 12/25/18 12/25/18 12/25/18 08:30 09:00 09:30 Temperature Pulse Rate 80 139 H 98 H Pulse Rate [ Anterior Bilateral Throughout] Pulse Rate [ Apical] Pulse Rate [ From Monitor] Pulse Rate [ Throughout] Respiratory 18 18 18 Rate Respiratory Rate [Anterior Bilateral Throughout] Respiratory Rate [ Throughout] Blood Pressure 135/49 141/54 147/43 O2 Sat by Pulse 99 99 99 Oximetry 12/25/18 12/25/18 12/25/18 10:00 10:30 11:00 Temperature Pulse Rate 90 70 71 Pulse Rate [ Anterior Bilateral Throughout] Pulse Rate [ Apical] Pulse Rate [ From Monitor] Pulse Rate [ Throughout] Respiratory 18 18 18 Rate Respiratory Rate [Anterior Bilateral Throughout] Respiratory Rate [ Throughout] Blood Pressure 147/43 142/40 110/41 O2 Sat by Pulse 99 100 100 Oximetry 12/25/18 12/25/18 12/25/18 11:12 11:30 12:00 Temperature Pulse Rate 72 74 65 Pulse Rate [ Anterior Bilateral Throughout] Pulse Rate [ Apical] Pulse Rate [ From Monitor] Pulse Rate [ Throughout] Respiratory 18 13 Rate Respiratory Rate [Anterior Bilateral Throughout] Respiratory Rate [ Throughout] Blood Pressure 160/43 160/52 127/69 O2 Sat by Pulse 100 100 100 Oximetry 12/25/18 12:30 Temperature Pulse Rate 68 Pulse Rate [ Anterior Bilateral Throughout] Pulse Rate [ Apical] Pulse Rate [ From Monitor] Pulse Rate [ Throughout] Respiratory 18 Rate Respiratory Rate [Anterior Bilateral Throughout] Respiratory Rate [ Throughout] Blood Pressure 160/43 O2 Sat by Pulse 100 Oximetry Constitutional: no acute distress, comatose, other (on vent cmv) Eyes: non-icteric ENT: oropharynx moist, other (ETT in position, large/edematous tongue) Neck: supple Effort: normal Ascultation: Bilateral: other (coarse BS bilaterally) Cardiovascular: regular rate and rhythm, other (pacemaker rhythm) Gastrointestinal: normoactive bowel sounds, non-distended Integumentary: normal Extremities: no cyanosis, no edema, pink and warm Neurologic: pupils equal and round, other (comatose, flaccid extremities, does not track or follow commands, + Cough, Apnea on PSV) CBC and BMP: 12/24/18 06:00 12/24/18 06:00 ABG, PT/INR, D-dimer: ABG POC ABG pH 7.325 (7.35-7.45) L 12/15/18 03:37 POC ABG pCO2 28.6 (35-45) L 12/15/18 03:37 POC ABG pO2 105 (80-105) 12/15/18 03:37 POC ABG HCO3 14.9 12/15/18 03:37 POC ABG Total CO2 16 12/15/18 03:37 POC ABG O2 Sat 98 12/15/18 03:37 PT/INR, D-dimer PT 20.2 Sec. (12.2-14.9) H 12/12/18 08:00 INR 1.61 (0.87-1.13) H 12/12/18 08:00 Abnormal lab findings: Abnormal Labs 12/08/18 12/08/18 12/08/18 12:58 13:40 13:40 WBC RBC Hgb Hct MCV MCH RDW Plt Count Lymph % (Auto) Lymph # Seg Neutrophils % Seg Neuts % (Manual) Lymphocytes % (Manual) Monocytes % (Manual) Nucleated RBC % Seg Neutrophils # Seg Neutrophils # Man Lymphocytes # (Manual) Monocytes # (Manual) PT INR POC ABG pH POC ABG pCO2 POC ABG pO2 Sodium Potassium Chloride Carbon Dioxide BUN Creatinine Glucose POC Glucose 143 H Lactic Acid Calcium Phosphorus Magnesium Total Bilirubin AST Alkaline Phosphatase Total Creatine Kinase C-Reactive Protein Total Protein Albumin TSH Free T4 Urine WBC (Auto) 157.0 H Crossmatch See Detail 12/08/18 12/08/18 12/08/18 13:40 13:40 13:40 WBC RBC 3.06 L Hgb 6.8 L Hct 21.1 L MCV 69 L MCH 22 L RDW 16.2 H Plt Count 56 L Lymph % (Auto) Lymph # Seg Neutrophils % Seg Neuts % (Manual) Lymphocytes % (Manual) 2.0 L Monocytes % (Manual) Nucleated RBC % Seg Neutrophils # Seg Neutrophils # Man Lymphocytes # (Manual) 0.2 L Monocytes # (Manual) PT INR POC ABG pH POC ABG pCO2 POC ABG pO2 Sodium Potassium 3.2 L Chloride Carbon Dioxide 18 L BUN 64 H Creatinine 1.5 H Glucose 145 H POC Glucose Lactic Acid 4.00 H* Calcium 7.7 L Phosphorus Magnesium Total Bilirubin AST Alkaline Phosphatase Total Creatine Kinase 258 H C-Reactive Protein Total Protein 4.6 L Albumin 1.8 L TSH Free T4 Urine WBC (Auto) Crossmatch 12/08/18 12/08/18 12/08/18 14:29 15:21 16:06 WBC RBC Hgb Hct MCV MCH RDW Plt Count Lymph % (Auto) Lymph # Seg Neutrophils % Seg Neuts % (Manual) Lymphocytes % (Manual) Monocytes % (Manual) Nucleated RBC % Seg Neutrophils # Seg Neutrophils # Man Lymphocytes # (Manual) Monocytes # (Manual) PT 20.5 H INR 1.64 H POC ABG pH POC ABG pCO2 34.2 L POC ABG pO2 465 H Sodium Potassium Chloride Carbon Dioxide BUN Creatinine Glucose POC Glucose Lactic Acid 3.00 H* Calcium Phosphorus Magnesium Total Bilirubin AST Alkaline Phosphatase Total Creatine Kinase C-Reactive Protein Total Protein Albumin TSH Free T4 Urine WBC (Auto) Crossmatch 12/09/18 12/09/18 12/09/18 02:31 05:36 05:36 WBC 14.5 H RBC Hgb Hct MCV 75 L MCH 25 L RDW 20.4 H Plt Count 68 L Lymph % (Auto) Lymph # Seg Neutrophils % Seg Neuts % (Manual) 81.0 H Lymphocytes % (Manual) 1.0 L Monocytes % (Manual) Nucleated RBC % Seg Neutrophils # Seg Neutrophils # Man 11.7 H Lymphocytes # (Manual) 0.1 L Monocytes # (Manual) PT INR POC ABG pH POC ABG pCO2 POC ABG pO2 Sodium Potassium Chloride 107.6 H Carbon Dioxide 18 L BUN 75 H Creatinine 1.9 H Glucose 136 H POC Glucose 152 H Lactic Acid Calcium 7.9 L Phosphorus Magnesium Total Bilirubin 1.60 H AST 44 H Alkaline Phosphatase Total Creatine Kinase C-Reactive Protein Total Protein 5.2 L Albumin 2.4 L TSH Free T4 Urine WBC (Auto) Crossmatch 12/09/18 12/09/18 12/09/18 05:43 10:47 13:46 WBC RBC Hgb Hct MCV MCH RDW Plt Count Lymph % (Auto) Lymph # Seg Neutrophils % Seg Neuts % (Manual) Lymphocytes % (Manual) Monocytes % (Manual) Nucleated RBC % Seg Neutrophils # Seg Neutrophils # Man Lymphocytes # (Manual) Monocytes # (Manual) PT INR POC ABG pH 7.308 L POC ABG pCO2 POC ABG pO2 183 H Sodium Potassium Chloride Carbon Dioxide BUN Creatinine Glucose POC Glucose 150 H 162 H Lactic Acid Calcium Phosphorus Magnesium Total Bilirubin AST Alkaline Phosphatase Total Creatine Kinase C-Reactive Protein Total Protein Albumin TSH Free T4 Urine WBC (Auto) Crossmatch 12/09/18 12/09/18 12/09/18 15:54 15:54 16:40 WBC RBC Hgb Hct MCV MCH RDW Plt Count Lymph % (Auto) Lymph # Seg Neutrophils % Seg Neuts % (Manual) Lymphocytes % (Manual) Monocytes % (Manual) Nucleated RBC % Seg Neutrophils # Seg Neutrophils # Man Lymphocytes # (Manual) Monocytes # (Manual) PT INR POC ABG pH POC ABG pCO2 POC ABG pO2 Sodium Potassium Chloride Carbon Dioxide BUN Creatinine Glucose POC Glucose 197 H Lactic Acid Calcium Phosphorus Magnesium Total Bilirubin AST Alkaline Phosphatase Total Creatine Kinase C-Reactive Protein Total Protein Albumin TSH 0.268 L Free T4 0.58 L Urine WBC (Auto) Crossmatch 12/09/18 12/09/18 12/09/18 18:18 18:18 21:51 WBC RBC Hgb Hct MCV MCH RDW Plt Count Lymph % (Auto) Lymph # Seg Neutrophils % Seg Neuts % (Manual) Lymphocytes % (Manual) Monocytes % (Manual) Nucleated RBC % Seg Neutrophils # Seg Neutrophils # Man Lymphocytes # (Manual) Monocytes # (Manual) PT INR POC ABG pH POC ABG pCO2 POC ABG pO2 Sodium Potassium Chloride 108.2 H Carbon Dioxide 16 L BUN 89 H Creatinine 2.3 H Glucose 180 H POC Glucose 198 H Lactic Acid Calcium 7.9 L Phosphorus Magnesium Total Bilirubin AST Alkaline Phosphatase Total Creatine Kinase C-Reactive Protein 19.60 H Total Protein Albumin TSH Free T4 Urine WBC (Auto) Crossmatch 12/10/18 12/10/18 12/10/18 01:59 04:14 04:38 WBC 11.5 H RBC Hgb Hct MCV 75 L MCH 25 L RDW 21.1 H Plt Count 81 L Lymph % (Auto) 5.6 L Lymph # 0.6 L Seg Neutrophils % 89.8 H Seg Neuts % (Manual) Lymphocytes % (Manual) Monocytes % (Manual) Nucleated RBC % Seg Neutrophils # 10.3 H Seg Neutrophils # Man Lymphocytes # (Manual) Monocytes # (Manual) PT INR POC ABG pH 7.273 L POC ABG pCO2 32.1 L POC ABG pO2 161 H Sodium Potassium Chloride Carbon Dioxide BUN Creatinine Glucose POC Glucose 219 H Lactic Acid Calcium Phosphorus Magnesium Total Bilirubin AST Alkaline Phosphatase Total Creatine Kinase C-Reactive Protein Total Protein Albumin TSH Free T4 Urine WBC (Auto) Crossmatch 12/10/18 12/10/18 12/10/18 04:38 05:07 07:26 WBC RBC Hgb Hct MCV MCH RDW Plt Count Lymph % (Auto) Lymph # Seg Neutrophils % Seg Neuts % (Manual) Lymphocytes % (Manual) Monocytes % (Manual) Nucleated RBC % Seg Neutrophils # Seg Neutrophils # Man Lymphocytes # (Manual) Monocytes # (Manual) PT INR POC ABG pH POC ABG pCO2 POC ABG pO2 Sodium Potassium Chloride 112.5 H Carbon Dioxide 14 L BUN 94 H Creatinine 2.4 H Glucose 207 H POC Glucose 221 H 212 H Lactic Acid Calcium 7.7 L Phosphorus Magnesium Total Bilirubin AST Alkaline Phosphatase Total Creatine Kinase C-Reactive Protein Total Protein Albumin TSH Free T4 Urine WBC (Auto) Crossmatch 12/10/18 12/10/18 12/10/18 10:40 11:15 14:21 WBC RBC Hgb Hct MCV MCH RDW Plt Count Lymph % (Auto) Lymph # Seg Neutrophils % Seg Neuts % (Manual) Lymphocytes % (Manual) Monocytes % (Manual) Nucleated RBC % Seg Neutrophils # Seg Neutrophils # Man Lymphocytes # (Manual) Monocytes # (Manual) PT 21.4 H INR 1.73 H POC ABG pH 7.214 L POC ABG pCO2 32.8 L POC ABG pO2 Sodium Potassium Chloride Carbon Dioxide BUN Creatinine Glucose POC Glucose 227 H Lactic Acid Calcium Phosphorus Magnesium Total Bilirubin AST Alkaline Phosphatase Total Creatine Kinase C-Reactive Protein Total Protein Albumin TSH Free T4 Urine WBC (Auto) Crossmatch 12/10/18 12/10/18 12/11/18 15:47 22:38 03:36 WBC RBC Hgb Hct MCV MCH RDW Plt Count Lymph % (Auto) Lymph # Seg Neutrophils % Seg Neuts % (Manual) Lymphocytes % (Manual) Monocytes % (Manual) Nucleated RBC % Seg Neutrophils # Seg Neutrophils # Man Lymphocytes # (Manual) Monocytes # (Manual) PT INR POC ABG pH POC ABG pCO2 26.2 L POC ABG pO2 138 H Sodium Potassium Chloride Carbon Dioxide BUN Creatinine Glucose POC Glucose 202 H 259 H Lactic Acid Calcium Phosphorus Magnesium Total Bilirubin AST Alkaline Phosphatase Total Creatine Kinase C-Reactive Protein Total Protein Albumin TSH Free T4 Urine WBC (Auto) Crossmatch 12/11/18 12/11/18 12/11/18 04:12 05:00 06:19 WBC RBC Hgb Hct MCV MCH RDW Plt Count Lymph % (Auto) Lymph # Seg Neutrophils % Seg Neuts % (Manual) Lymphocytes % (Manual) Monocytes % (Manual) Nucleated RBC % Seg Neutrophils # Seg Neutrophils # Man Lymphocytes # (Manual) Monocytes # (Manual) PT 19.5 H INR 1.54 H POC ABG pH POC ABG pCO2 24.6 L POC ABG pO2 119 H Sodium Potassium Chloride Carbon Dioxide BUN Creatinine Glucose POC Glucose 174 H Lactic Acid Calcium Phosphorus Magnesium Total Bilirubin AST Alkaline Phosphatase Total Creatine Kinase C-Reactive Protein Total Protein Albumin TSH Free T4 Urine WBC (Auto) Crossmatch 12/11/18 12/11/18 12/11/18 11:10 11:10 18:10 WBC 14.3 H RBC Hgb Hct MCV 73 L MCH 24 L RDW 21.5 H Plt Count Lymph % (Auto) Lymph # Seg Neutrophils % Seg Neuts % (Manual) Lymphocytes % (Manual) Monocytes % (Manual) Nucleated RBC % Seg Neutrophils # Seg Neutrophils # Man Lymphocytes # (Manual) Monocytes # (Manual) PT INR POC ABG pH POC ABG pCO2 POC ABG pO2 Sodium Potassium Chloride 110.5 H Carbon Dioxide 15 L BUN 101 H Creatinine 2.4 H Glucose 119 H POC Glucose 147 H Lactic Acid Calcium 7.7 L Phosphorus Magnesium Total Bilirubin AST Alkaline Phosphatase Total Creatine Kinase C-Reactive Protein Total Protein Albumin TSH Free T4 Urine WBC (Auto) Crossmatch 12/11/18 12/12/18 12/12/18 23:25 05:37 06:03 WBC RBC Hgb Hct MCV MCH RDW Plt Count Lymph % (Auto) Lymph # Seg Neutrophils % Seg Neuts % (Manual) Lymphocytes % (Manual) Monocytes % (Manual) Nucleated RBC % Seg Neutrophils # Seg Neutrophils # Man Lymphocytes # (Manual) Monocytes # (Manual) PT INR POC ABG pH 7.346 L POC ABG pCO2 28.3 L POC ABG pO2 120 H Sodium Potassium Chloride Carbon Dioxide BUN Creatinine Glucose POC Glucose 143 H 154 H Lactic Acid Calcium Phosphorus Magnesium Total Bilirubin AST Alkaline Phosphatase Total Creatine Kinase C-Reactive Protein Total Protein Albumin TSH Free T4 Urine WBC (Auto) Crossmatch 12/12/18 12/12/18 12/12/18 08:00 08:00 08:00 WBC 16.2 H RBC Hgb Hct MCV 74 L MCH 25 L RDW 21.9 H Plt Count 21 L Lymph % (Auto) Lymph # Seg Neutrophils % Seg Neuts % (Manual) Lymphocytes % (Manual) Monocytes % (Manual) Nucleated RBC % Seg Neutrophils # Seg Neutrophils # Man Lymphocytes # (Manual) Monocytes # (Manual) PT 20.2 H INR 1.61 H POC ABG pH POC ABG pCO2 POC ABG pO2 Sodium Potassium Chloride 107.4 H Carbon Dioxide 16 L BUN 101 H Creatinine 2.3 H Glucose 169 H POC Glucose Lactic Acid Calcium 8.2 L Phosphorus Magnesium Total Bilirubin AST Alkaline Phosphatase Total Creatine Kinase C-Reactive Protein Total Protein Albumin TSH Free T4 Urine WBC (Auto) Crossmatch 12/12/18 12/12/18 12/13/18 12:59 18:01 04:28 WBC 18.6 H RBC Hgb Hct MCV 74 L MCH 24 L RDW 21.8 H Plt Count 34 L Lymph % (Auto) Lymph # Seg Neutrophils % Seg Neuts % (Manual) 97.0 H Lymphocytes % (Manual) 2.0 L Monocytes % (Manual) Nucleated RBC % 1.0 H Seg Neutrophils # Seg Neutrophils # Man 18.0 H Lymphocytes # (Manual) 0.4 L Monocytes # (Manual) PT INR POC ABG pH POC ABG pCO2 POC ABG pO2 Sodium Potassium Chloride Carbon Dioxide BUN Creatinine Glucose POC Glucose 158 H 123 H Lactic Acid Calcium Phosphorus Magnesium Total Bilirubin AST Alkaline Phosphatase Total Creatine Kinase C-Reactive Protein Total Protein Albumin TSH Free T4 Urine WBC (Auto) Crossmatch 12/13/18 12/13/18 12/13/18 04:28 04:45 19:17 WBC RBC Hgb Hct MCV MCH RDW Plt Count Lymph % (Auto) Lymph # Seg Neutrophils % Seg Neuts % (Manual) Lymphocytes % (Manual) Monocytes % (Manual) Nucleated RBC % Seg Neutrophils # Seg Neutrophils # Man Lymphocytes # (Manual) Monocytes # (Manual) PT INR POC ABG pH 7.327 L POC ABG pCO2 31.1 L POC ABG pO2 136 H Sodium Potassium Chloride 112.0 H Carbon Dioxide 17 L BUN 97 H Creatinine 2.2 H Glucose POC Glucose 106 H Lactic Acid Calcium 8.1 L Phosphorus Magnesium Total Bilirubin AST Alkaline Phosphatase Total Creatine Kinase C-Reactive Protein Total Protein Albumin TSH Free T4 Urine WBC (Auto) Crossmatch 12/13/18 12/14/18 12/14/18 23:24 03:35 03:35 WBC 22.0 H RBC Hgb Hct MCV 75 L MCH 24 L RDW 22.2 H Plt Count 44 L Lymph % (Auto) Lymph # Seg Neutrophils % Seg Neuts % (Manual) 96.0 H Lymphocytes % (Manual) 3.0 L Monocytes % (Manual) Nucleated RBC % Seg Neutrophils # Seg Neutrophils # Man 21.1 H Lymphocytes # (Manual) 0.7 L Monocytes # (Manual) PT INR POC ABG pH POC ABG pCO2 POC ABG pO2 Sodium 136 L Potassium Chloride 107.2 H Carbon Dioxide 15 L BUN 87 H Creatinine 1.7 H Glucose 156 H POC Glucose 108 H Lactic Acid Calcium 7.7 L Phosphorus Magnesium Total Bilirubin AST Alkaline Phosphatase Total Creatine Kinase C-Reactive Protein Total Protein Albumin TSH Free T4 Urine WBC (Auto) Crossmatch 12/14/18 12/14/18 12/14/18 04:58 05:37 12:10 WBC RBC Hgb Hct MCV MCH RDW Plt Count Lymph % (Auto) Lymph # Seg Neutrophils % Seg Neuts % (Manual) Lymphocytes % (Manual) Monocytes % (Manual) Nucleated RBC % Seg Neutrophils # Seg Neutrophils # Man Lymphocytes # (Manual) Monocytes # (Manual) PT INR POC ABG pH 7.301 L POC ABG pCO2 32.6 L POC ABG pO2 138 H Sodium Potassium Chloride Carbon Dioxide BUN Creatinine Glucose POC Glucose 178 H 208 H Lactic Acid Calcium Phosphorus Magnesium Total Bilirubin AST Alkaline Phosphatase Total Creatine Kinase C-Reactive Protein Total Protein Albumin TSH Free T4 Urine WBC (Auto) Crossmatch 12/14/18 12/14/18 12/15/18 17:44 23:16 03:37 WBC RBC Hgb Hct MCV MCH RDW Plt Count Lymph % (Auto) Lymph # Seg Neutrophils % Seg Neuts % (Manual) Lymphocytes % (Manual) Monocytes % (Manual) Nucleated RBC % Seg Neutrophils # Seg Neutrophils # Man Lymphocytes # (Manual) Monocytes # (Manual) PT INR POC ABG pH 7.325 L POC ABG pCO2 28.6 L POC ABG pO2 Sodium Potassium Chloride Carbon Dioxide BUN Creatinine Glucose POC Glucose 172 H 123 H Lactic Acid Calcium Phosphorus Magnesium Total Bilirubin AST Alkaline Phosphatase Total Creatine Kinase C-Reactive Protein Total Protein Albumin TSH Free T4 Urine WBC (Auto) Crossmatch 12/15/18 12/15/18 12/15/18 05:30 05:30 05:43 WBC 20.1 H RBC Hgb 9.5 L Hct 29.2 L MCV 74 L MCH 24 L RDW 22.7 H Plt Count 48 L Lymph % (Auto) Lymph # Seg Neutrophils % Seg Neuts % (Manual) 96.0 H Lymphocytes % (Manual) 1.0 L Monocytes % (Manual) Nucleated RBC % Seg Neutrophils # Seg Neutrophils # Man 19.3 H Lymphocytes # (Manual) 0.2 L Monocytes # (Manual) PT INR POC ABG pH POC ABG pCO2 POC ABG pO2 Sodium Potassium Chloride 110.8 H Carbon Dioxide 17 L BUN 83 H Creatinine 1.6 H Glucose 150 H POC Glucose 151 H Lactic Acid Calcium 7.7 L Phosphorus Magnesium Total Bilirubin AST Alkaline Phosphatase Total Creatine Kinase C-Reactive Protein Total Protein Albumin TSH Free T4 Urine WBC (Auto) Crossmatch 12/15/18 12/15/18 12/16/18 12:56 18:21 00:10 WBC RBC Hgb Hct MCV MCH RDW Plt Count Lymph % (Auto) Lymph # Seg Neutrophils % Seg Neuts % (Manual) Lymphocytes % (Manual) Monocytes % (Manual) Nucleated RBC % Seg Neutrophils # Seg Neutrophils # Man Lymphocytes # (Manual) Monocytes # (Manual) PT INR POC ABG pH POC ABG pCO2 POC ABG pO2 Sodium Potassium Chloride Carbon Dioxide BUN Creatinine Glucose POC Glucose 190 H 143 H 174 H Lactic Acid Calcium Phosphorus Magnesium Total Bilirubin AST Alkaline Phosphatase Total Creatine Kinase C-Reactive Protein Total Protein Albumin TSH Free T4 Urine WBC (Auto) Crossmatch 12/16/18 12/16/18 12/16/18 05:24 05:30 05:30 WBC 17.1 H RBC Hgb 9.1 L Hct 28.8 L MCV 76 L MCH 24 L RDW 23.5 H Plt Count 37 L Lymph % (Auto) Lymph # Seg Neutrophils % Seg Neuts % (Manual) Lymphocytes % (Manual) 9.0 L Monocytes % (Manual) 9.0 H Nucleated RBC % Seg Neutrophils # Seg Neutrophils # Man 9.6 H Lymphocytes # (Manual) Monocytes # (Manual) 1.5 H PT INR POC ABG pH POC ABG pCO2 POC ABG pO2 Sodium Potassium Chloride 110.8 H Carbon Dioxide 15 L BUN 81 H Creatinine 1.6 H Glucose 161 H POC Glucose 154 H Lactic Acid Calcium 7.6 L Phosphorus Magnesium Total Bilirubin AST Alkaline Phosphatase Total Creatine Kinase C-Reactive Protein Total Protein Albumin TSH Free T4 Urine WBC (Auto) Crossmatch 12/16/18 12/16/18 12/16/18 12:31 17:42 21:56 WBC RBC Hgb Hct MCV MCH RDW Plt Count Lymph % (Auto) Lymph # Seg Neutrophils % Seg Neuts % (Manual) Lymphocytes % (Manual) Monocytes % (Manual) Nucleated RBC % Seg Neutrophils # Seg Neutrophils # Man Lymphocytes # (Manual) Monocytes # (Manual) PT INR POC ABG pH POC ABG pCO2 POC ABG pO2 Sodium Potassium Chloride Carbon Dioxide BUN Creatinine Glucose POC Glucose 172 H 173 H 118 H Lactic Acid Calcium Phosphorus Magnesium Total Bilirubin AST Alkaline Phosphatase Total Creatine Kinase C-Reactive Protein Total Protein Albumin TSH Free T4 Urine WBC (Auto) Crossmatch 12/16/18 12/17/18 12/17/18 23:38 04:24 04:24 WBC 19.2 H RBC Hgb 9.5 L Hct 29.7 L MCV 76 L MCH 24 L RDW 24.4 H Plt Count 26 L Lymph % (Auto) Lymph # Seg Neutrophils % Seg Neuts % (Manual) Lymphocytes % (Manual) 6.0 L Monocytes % (Manual) Nucleated RBC % Seg Neutrophils # Seg Neutrophils # Man 13.1 H Lymphocytes # (Manual) Monocytes # (Manual) PT INR POC ABG pH POC ABG pCO2 POC ABG pO2 Sodium 134 L Potassium Chloride 110.0 H Carbon Dioxide 14 L BUN 83 H Creatinine 1.6 H Glucose POC Glucose 109 H Lactic Acid Calcium 7.8 L Phosphorus Magnesium Total Bilirubin AST Alkaline Phosphatase Total Creatine Kinase C-Reactive Protein Total Protein Albumin TSH Free T4 Urine WBC (Auto) Crossmatch 12/17/18 12/17/18 12/18/18 06:42 17:49 00:40 WBC RBC Hgb Hct MCV MCH RDW Plt Count Lymph % (Auto) Lymph # Seg Neutrophils % Seg Neuts % (Manual) Lymphocytes % (Manual) Monocytes % (Manual) Nucleated RBC % Seg Neutrophils # Seg Neutrophils # Man Lymphocytes # (Manual) Monocytes # (Manual) PT INR POC ABG pH POC ABG pCO2 POC ABG pO2 Sodium Potassium Chloride 113.1 H Carbon Dioxide 13 L BUN 82 H Creatinine 1.6 H Glucose POC Glucose 66 L 109 H Lactic Acid Calcium 8.0 L Phosphorus Magnesium Total Bilirubin AST Alkaline Phosphatase Total Creatine Kinase C-Reactive Protein Total Protein Albumin TSH Free T4 Urine WBC (Auto) Crossmatch 12/18/18 12/18/18 12/18/18 04:08 04:08 12:45 WBC 26.5 H RBC 3.63 L Hgb 8.7 L Hct 26.8 L MCV 74 L MCH 24 L RDW 23.3 H Plt Count 24 L Lymph % (Auto) Lymph # Seg Neutrophils % Seg Neuts % (Manual) Lymphocytes % (Manual) Monocytes % (Manual) Nucleated RBC % Seg Neutrophils # Seg Neutrophils # Man Lymphocytes # (Manual) Monocytes # (Manual) PT INR POC ABG pH POC ABG pCO2 POC ABG pO2 Sodium Potassium Chloride 114.3 H Carbon Dioxide 16 L BUN 82 H Creatinine 1.7 H Glucose POC Glucose 117 H Lactic Acid Calcium 7.8 L Phosphorus 5.10 H Magnesium Total Bilirubin AST Alkaline Phosphatase Total Creatine Kinase C-Reactive Protein Total Protein Albumin TSH Free T4 Urine WBC (Auto) Crossmatch 12/18/18 12/18/18 12/19/18 17:42 23:39 04:22 WBC 20.4 H RBC 3.01 L Hgb 7.2 L Hct 22.6 L MCV 75 L MCH 24 L RDW 24.5 H Plt Count 52 L D Lymph % (Auto) Lymph # Seg Neutrophils % Seg Neuts % (Manual) Lymphocytes % (Manual) Monocytes % (Manual) Nucleated RBC % Seg Neutrophils # Seg Neutrophils # Man Lymphocytes # (Manual) Monocytes # (Manual) PT INR POC ABG pH POC ABG pCO2 POC ABG pO2 Sodium Potassium Chloride Carbon Dioxide BUN Creatinine Glucose POC Glucose 121 H 184 H Lactic Acid Calcium Phosphorus Magnesium Total Bilirubin AST Alkaline Phosphatase Total Creatine Kinase C-Reactive Protein Total Protein Albumin TSH Free T4 Urine WBC (Auto) Crossmatch 12/19/18 12/19/18 12/19/18 04:22 12:43 18:12 WBC RBC Hgb Hct MCV MCH RDW Plt Count Lymph % (Auto) Lymph # Seg Neutrophils % Seg Neuts % (Manual) Lymphocytes % (Manual) Monocytes % (Manual) Nucleated RBC % Seg Neutrophils # Seg Neutrophils # Man Lymphocytes # (Manual) Monocytes # (Manual) PT INR POC ABG pH POC ABG pCO2 POC ABG pO2 Sodium Potassium Chloride 112.9 H Carbon Dioxide 15 L BUN 76 H Creatinine 1.8 H Glucose 107 H POC Glucose 141 H 227 H Lactic Acid Calcium 7.4 L Phosphorus Magnesium Total Bilirubin AST Alkaline Phosphatase Total Creatine Kinase C-Reactive Protein Total Protein Albumin TSH Free T4 Urine WBC (Auto) Crossmatch 12/19/18 12/19/18 12/20/18 23:55 Unknown 03:07 WBC 15.7 H RBC 2.92 L Hgb 7.2 L 7.1 L Hct 22.2 L 21.6 L MCV 74 L MCH 24 L RDW 24.3 H Plt Count 23 L Lymph % (Auto) Lymph # Seg Neutrophils % Seg Neuts % (Manual) Lymphocytes % (Manual) Monocytes % (Manual) Nucleated RBC % Seg Neutrophils # Seg Neutrophils # Man Lymphocytes # (Manual) Monocytes # (Manual) PT INR POC ABG pH POC ABG pCO2 POC ABG pO2 Sodium Potassium Chloride Carbon Dioxide BUN Creatinine Glucose POC Glucose 174 H Lactic Acid Calcium Phosphorus Magnesium Total Bilirubin AST Alkaline Phosphatase Total Creatine Kinase C-Reactive Protein Total Protein Albumin TSH Free T4 Urine WBC (Auto) Crossmatch 12/20/18 12/20/18 12/20/18 03:07 05:20 11:00 WBC RBC Hgb Hct MCV MCH RDW Plt Count Lymph % (Auto) Lymph # Seg Neutrophils % Seg Neuts % (Manual) Lymphocytes % (Manual) Monocytes % (Manual) Nucleated RBC % Seg Neutrophils # Seg Neutrophils # Man Lymphocytes # (Manual) Monocytes # (Manual) PT INR POC ABG pH POC ABG pCO2 POC ABG pO2 Sodium 136 L Potassium Chloride Carbon Dioxide 20 L BUN 79 H Creatinine 2.1 H Glucose 141 H POC Glucose 210 H Lactic Acid Calcium 7.5 L Phosphorus Magnesium Total Bilirubin AST Alkaline Phosphatase Total Creatine Kinase C-Reactive Protein Total Protein Albumin TSH Free T4 Urine WBC (Auto) Crossmatch See Detail 12/20/18 12/20/18 12/21/18 11:40 17:51 00:33 WBC RBC Hgb Hct MCV MCH RDW Plt Count Lymph % (Auto) Lymph # Seg Neutrophils % Seg Neuts % (Manual) Lymphocytes % (Manual) Monocytes % (Manual) Nucleated RBC % Seg Neutrophils # Seg Neutrophils # Man Lymphocytes # (Manual) Monocytes # (Manual) PT INR POC ABG pH POC ABG pCO2 POC ABG pO2 Sodium Potassium Chloride Carbon Dioxide BUN Creatinine Glucose POC Glucose 183 H 150 H 119 H Lactic Acid Calcium Phosphorus Magnesium Total Bilirubin AST Alkaline Phosphatase Total Creatine Kinase C-Reactive Protein Total Protein Albumin TSH Free T4 Urine WBC (Auto) Crossmatch 12/21/18 12/21/18 12/21/18 05:05 07:19 07:19 WBC 11.9 H RBC 2.83 L Hgb 6.9 L Hct 20.7 L MCV 73 L MCH 24 L RDW 23.9 H Plt Count 11 L* Lymph % (Auto) Lymph # Seg Neutrophils % Seg Neuts % (Manual) Lymphocytes % (Manual) Monocytes % (Manual) Nucleated RBC % Seg Neutrophils # Seg Neutrophils # Man Lymphocytes # (Manual) Monocytes # (Manual) PT INR POC ABG pH POC ABG pCO2 POC ABG pO2 Sodium 135 L Potassium Chloride Carbon Dioxide 21 L BUN 78 H Creatinine 2.3 H Glucose 143 H POC Glucose 165 H Lactic Acid Calcium 7.3 L Phosphorus Magnesium Total Bilirubin AST Alkaline Phosphatase Total Creatine Kinase C-Reactive Protein Total Protein Albumin TSH Free T4 Urine WBC (Auto) Crossmatch 12/21/18 12/21/18 12/21/18 11:55 17:39 18:00 WBC RBC Hgb 7.9 L Hct 23.8 L MCV MCH RDW Plt Count Lymph % (Auto) Lymph # Seg Neutrophils % Seg Neuts % (Manual) Lymphocytes % (Manual) Monocytes % (Manual) Nucleated RBC % Seg Neutrophils # Seg Neutrophils # Man Lymphocytes # (Manual) Monocytes # (Manual) PT INR POC ABG pH POC ABG pCO2 POC ABG pO2 Sodium Potassium Chloride Carbon Dioxide BUN Creatinine Glucose POC Glucose 125 H 108 H Lactic Acid Calcium Phosphorus Magnesium Total Bilirubin AST Alkaline Phosphatase Total Creatine Kinase C-Reactive Protein Total Protein Albumin TSH Free T4 Urine WBC (Auto) Crossmatch 12/21/18 12/22/18 12/22/18 23:55 05:35 05:35 WBC 11.8 H RBC Hgb 9.4 L Hct 28.3 L MCV 76 L MCH 25 L RDW 24.5 H Plt Count 26 L D Lymph % (Auto) Lymph # Seg Neutrophils % Seg Neuts % (Manual) Lymphocytes % (Manual) Monocytes % (Manual) Nucleated RBC % Seg Neutrophils # Seg Neutrophils # Man Lymphocytes # (Manual) Monocytes # (Manual) PT INR POC ABG pH POC ABG pCO2 POC ABG pO2 Sodium 132 L Potassium Chloride Carbon Dioxide 21 L BUN 79 H Creatinine 2.3 H Glucose 131 H POC Glucose 126 H Lactic Acid Calcium 7.4 L Phosphorus Magnesium Total Bilirubin AST Alkaline Phosphatase Total Creatine Kinase C-Reactive Protein Total Protein Albumin TSH Free T4 Urine WBC (Auto) Crossmatch 12/22/18 12/22/18 12/22/18 06:34 11:39 17:29 WBC RBC Hgb Hct MCV MCH RDW Plt Count Lymph % (Auto) Lymph # Seg Neutrophils % Seg Neuts % (Manual) Lymphocytes % (Manual) Monocytes % (Manual) Nucleated RBC % Seg Neutrophils # Seg Neutrophils # Man Lymphocytes # (Manual) Monocytes # (Manual) PT INR POC ABG pH POC ABG pCO2 POC ABG pO2 Sodium Potassium Chloride Carbon Dioxide BUN Creatinine Glucose POC Glucose 126 H 176 H 180 H Lactic Acid Calcium Phosphorus Magnesium Total Bilirubin AST Alkaline Phosphatase Total Creatine Kinase C-Reactive Protein Total Protein Albumin TSH Free T4 Urine WBC (Auto) Crossmatch 12/22/18 12/23/18 12/23/18 23:19 05:56 08:50 WBC RBC Hgb Hct MCV MCH RDW Plt Count Lymph % (Auto) Lymph # Seg Neutrophils % Seg Neuts % (Manual) Lymphocytes % (Manual) Monocytes % (Manual) Nucleated RBC % Seg Neutrophils # Seg Neutrophils # Man Lymphocytes # (Manual) Monocytes # (Manual) PT INR POC ABG pH POC ABG pCO2 POC ABG pO2 Sodium 134 L Potassium Chloride Carbon Dioxide BUN 80 H Creatinine 2.4 H Glucose 133 H POC Glucose 135 H 174 H Lactic Acid Calcium 7.0 L Phosphorus Magnesium Total Bilirubin AST Alkaline Phosphatase Total Creatine Kinase C-Reactive Protein Total Protein Albumin TSH Free T4 Urine WBC (Auto) Crossmatch 12/23/18 12/23/18 12/24/18 08:50 11:18 00:18 WBC RBC 3.29 L Hgb 8.5 L Hct 24.9 L MCV 76 L MCH 26 L RDW 24.9 H Plt Count 7 L* Lymph % (Auto) Lymph # Seg Neutrophils % Seg Neuts % (Manual) Lymphocytes % (Manual) Monocytes % (Manual) Nucleated RBC % Seg Neutrophils # Seg Neutrophils # Man Lymphocytes # (Manual) Monocytes # (Manual) PT INR POC ABG pH POC ABG pCO2 POC ABG pO2 Sodium Potassium Chloride Carbon Dioxide BUN Creatinine Glucose POC Glucose 164 H 64 L Lactic Acid Calcium Phosphorus Magnesium Total Bilirubin AST Alkaline Phosphatase Total Creatine Kinase C-Reactive Protein Total Protein Albumin TSH Free T4 Urine WBC (Auto) Crossmatch 12/24/18 12/24/18 12/24/18 00:56 06:00 06:00 WBC RBC Hgb 9.7 L Hct 29.1 L MCV 76 L MCH 25 L RDW 24.9 H Plt Count 30 L D Lymph % (Auto) Lymph # Seg Neutrophils % Seg Neuts % (Manual) 86.0 H Lymphocytes % (Manual) 0 L Monocytes % (Manual) Nucleated RBC % Seg Neutrophils # Seg Neutrophils # Man 9.1 H Lymphocytes # (Manual) 0.0 L Monocytes # (Manual) PT INR POC ABG pH POC ABG pCO2 POC ABG pO2 Sodium 132 L Potassium Chloride Carbon Dioxide BUN 79 H Creatinine 2.4 H Glucose 117 H POC Glucose 162 H Lactic Acid Calcium 7.5 L Phosphorus Magnesium Total Bilirubin AST 48 H Alkaline Phosphatase 252 H Total Creatine Kinase C-Reactive Protein Total Protein 5.5 L Albumin 1.6 L TSH Free T4 Urine WBC (Auto) Crossmatch 12/24/18 12/24/18 12/24/18 06:00 12:03 18:45 WBC RBC Hgb Hct MCV MCH RDW Plt Count Lymph % (Auto) Lymph # Seg Neutrophils % Seg Neuts % (Manual) Lymphocytes % (Manual) Monocytes % (Manual) Nucleated RBC % Seg Neutrophils # Seg Neutrophils # Man Lymphocytes # (Manual) Monocytes # (Manual) PT INR POC ABG pH POC ABG pCO2 POC ABG pO2 Sodium Potassium Chloride Carbon Dioxide BUN Creatinine Glucose POC Glucose 153 H 133 H Lactic Acid Calcium Phosphorus 6.60 H Magnesium 2.40 H Total Bilirubin AST Alkaline Phosphatase Total Creatine Kinase C-Reactive Protein Total Protein Albumin TSH Free T4 Urine WBC (Auto) Crossmatch 12/24/18 12/25/18 12/25/18 23:08 06:36 12:05 WBC RBC Hgb Hct MCV MCH RDW Plt Count Lymph % (Auto) Lymph # Seg Neutrophils % Seg Neuts % (Manual) Lymphocytes % (Manual) Monocytes % (Manual) Nucleated RBC % Seg Neutrophils # Seg Neutrophils # Man Lymphocytes # (Manual) Monocytes # (Manual) PT INR POC ABG pH POC ABG pCO2 POC ABG pO2 Sodium Potassium Chloride Carbon Dioxide BUN Creatinine Glucose POC Glucose 125 H 176 H 161 H Lactic Acid Calcium Phosphorus Magnesium Total Bilirubin AST Alkaline Phosphatase Total Creatine Kinase C-Reactive Protein Total Protein Albumin TSH Free T4 Urine WBC (Auto) Crossmatch Chest x-ray: report reviewed, image reviewed Allied health notes reviewed: nursing
[2018-12-25] MEDS: SODIUM CHLORIDE FLUSH SYRINGE 10 ML IV SCH ×2 (12:47→21:19)
[2018-12-26] MEDS: HumaLOG SUB-Q SCH ×4 (00:39→20:10)
[2018-12-26] MEDS: DUONEB *Not for PRN Use IH SCH ×5 (02:50→19:10)
[2018-12-26] MEDS: NACL 0.9% 1000 ML 1,000 ML IV SCH (05:20)
[2018-12-26] MEDS: PROAMATINE PO SCH ×3 (08:39→20:10)
--- NOTE | 2018-12-26 09:41 | Progress Note ---
Assessment and Plan - Patient Problems (1) Acute kidney failure with tubular necrosis Current Visit: Yes Status: Acute Plan to address problem: Labs noted and her renal function is stable. Overall prognosis is poor. Will monitor closely. On gentle hydration with just NS @ 40 cc/hr. Avoid nephrotoxins. (2) Acute encephalopathy Current Visit: Yes Status: Acute Plan to address problem: s/p EEG . Results reviewed. Further management per primary team. (3) Sepsis Current Visit: Yes Status: Acute Qualifiers: Sepsis type: sepsis due to unspecified organism Qualified Code(s): A41.9 - Sepsis, unspecified organism Plan to address problem: unclear etiology. has been on broad spectrum antibiotic coverage. unable to undergo LP given his significant thrombocytopenia. Will follow up further recommendations per ID. (4) Acute post-hemorrhagic anemia Current Visit: Yes Status: Acute Plan to address problem: H/H is stable at this time. Continue to monitor, transfuse prn to maintain HgB>7.0 (5) Acute respiratory failure with hypoxia Current Visit: Yes Status: Acute Plan to address problem: Continues on ventilatory support, and further management per ICU/Pulmonary team. (6) Pericardial effusion without cardiac tamponade Current Visit: Yes Status: Acute Plan to address problem: s/p ECHO with findings not consistent with cardiac tamponade. Will continue to monitor, further recs per cardiology. Subjective Date of service: 12/26/18 Principal diagnosis: Acute respiratory failure Interval history: No acute changes. No new labs this am. Objective - Vital Signs Vital signs: Vital Signs - 12hr 12/25/18 12/25/18 12/25/18 22:01 22:30 23:00 Temperature Pulse Rate 62 61 67 Pulse Rate [ Anterior Bilateral Throughout] Pulse Rate [ From Monitor] Pulse Rate [ Throughout] Respiratory 18 18 18 Rate Respiratory Rate [Anterior Bilateral Throughout] Respiratory Rate [ Throughout] Blood Pressure 159/38 159/38 156/45 O2 Sat by Pulse 100 100 100 Oximetry 12/25/18 12/25/18 12/25/18 23:11 23:31 23:34 Temperature 95.8 F L Pulse Rate 65 67 Pulse Rate [ Anterior Bilateral Throughout] Pulse Rate [ From Monitor] Pulse Rate [ Throughout] Respiratory 18 18 Rate Respiratory Rate [Anterior Bilateral Throughout] Respiratory Rate [ Throughout] Blood Pressure 155/56 192/37 O2 Sat by Pulse 100 100 Oximetry 12/25/18 12/26/18 12/26/18 23:35 00:00 00:31 Temperature Pulse Rate 70 70 71 Pulse Rate [ Anterior Bilateral Throughout] Pulse Rate [ 70 From Monitor] Pulse Rate [ Throughout] Respiratory 18 18 18 Rate Respiratory Rate [Anterior Bilateral Throughout] Respiratory Rate [ Throughout] Blood Pressure 192/37 151/82 149/56 O2 Sat by Pulse 100 100 100 Oximetry 12/26/18 12/26/18 12/26/18 01:01 01:30 02:00 Temperature Pulse Rate 64 71 65 Pulse Rate [ Anterior Bilateral Throughout] Pulse Rate [ From Monitor] Pulse Rate [ Throughout] Respiratory 18 18 18 Rate Respiratory Rate [Anterior Bilateral Throughout] Respiratory Rate [ Throughout] Blood Pressure 147/61 148/60 146/59 O2 Sat by Pulse 100 100 100 Oximetry 12/26/18 12/26/18 12/26/18 02:15 02:31 03:00 Temperature Pulse Rate 74 67 Pulse Rate [ 64 Anterior Bilateral Throughout] Pulse Rate [ From Monitor] Pulse Rate [ Throughout] Respiratory 17 18 Rate Respiratory 18 Rate [Anterior Bilateral Throughout] Respiratory Rate [ Throughout] Blood Pressure 148/60 159/69 O2 Sat by Pulse 100 100 Oximetry 12/26/18 12/26/18 12/26/18 03:05 03:25 03:31 Temperature 95 F L Pulse Rate 69 63 Pulse Rate [ Anterior Bilateral Throughout] Pulse Rate [ From Monitor] Pulse Rate [ Throughout] Respiratory 18 Rate Respiratory Rate [Anterior Bilateral Throughout] Respiratory Rate [ Throughout] Blood Pressure 160/48 157/38 O2 Sat by Pulse 100 100 Oximetry 12/26/18 12/26/18 12/26/18 04:00 04:01 04:30 Temperature Pulse Rate 72 73 64 Pulse Rate [ Anterior Bilateral Throughout] Pulse Rate [ 72 From Monitor] Pulse Rate [ Throughout] Respiratory 18 18 18 Rate Respiratory Rate [Anterior Bilateral Throughout] Respiratory Rate [ Throughout] Blood Pressure 157/40 134/70 O2 Sat by Pulse 100 100 100 Oximetry 12/26/18 12/26/18 12/26/18 05:01 05:31 06:00 Temperature Pulse Rate 66 67 65 Pulse Rate [ Anterior Bilateral Throughout] Pulse Rate [ From Monitor] Pulse Rate [ Throughout] Respiratory 18 18 18 Rate Respiratory Rate [Anterior Bilateral Throughout] Respiratory Rate [ Throughout] Blood Pressure 149/64 142/47 133/50 O2 Sat by Pulse 100 100 100 Oximetry 12/26/18 12/26/18 12/26/18 06:30 07:00 07:30 Temperature Pulse Rate 74 67 73 Pulse Rate [ Anterior Bilateral Throughout] Pulse Rate [ From Monitor] Pulse Rate [ Throughout] Respiratory 18 18 18 Rate Respiratory Rate [Anterior Bilateral Throughout] Respiratory Rate [ Throughout] Blood Pressure 127/60 130/52 132/55 O2 Sat by Pulse 100 100 100 Oximetry 12/26/18 12/26/18 12/26/18 07:41 07:56 08:00 Temperature 96.2 F L Pulse Rate 71 74 Pulse Rate [ Anterior Bilateral Throughout] Pulse Rate [ 72 From Monitor] Pulse Rate [ 69 Throughout] Respiratory 18 Rate Respiratory Rate [Anterior Bilateral Throughout] Respiratory 18 Rate [ Throughout] Blood Pressure 132/55 123/69 O2 Sat by Pulse 100 100 Oximetry 12/26/18 08:06 Temperature Pulse Rate Pulse Rate [ Anterior Bilateral Throughout] Pulse Rate [ From Monitor] Pulse Rate [ 76 Throughout] Respiratory Rate Respiratory Rate [Anterior Bilateral Throughout] Respiratory 18 Rate [ Throughout] Blood Pressure O2 Sat by Pulse Oximetry - General Appearance General appearance: cachectic, chronically ill, intubated, frail EENT: ATNC Neck: no JVD Respiratory: Present: Decreased Breath Sounds Cardiology: regular, S1S2 Gastrointestinal: normal Integumentary: warm and dry Neurologic: other (unresponsive off sedation) Musculoskeletal: other (+edema ) - Lab 12/24/18 06:00 12/24/18 06:00 Most recent lab results Calcium 7.5 mg/dL (8.4-10.2) L 12/24/18 06:00 Phosphorus 6.60 mg/dL (2.5-4.5) H 12/24/18 06:00 Magnesium 2.40 mg/dL (1.7-2.3) H 12/24/18 06:00 - Allied health notes Allied health notes reviewed: nursing Medications & Allergies - Medications Allergies/Adverse Reactions: Allergies Penicillins Allergy (Verified 12/08/18 13:13) Hives Home Medications: Home Medications Medication Instructions Recorded Confirmed Last Taken Type ALBUTEROL Inhaler (OR & NICU) 2 puff IH QID PRN #1 inhalation 12/21/16 12/08/18 Unknown Rx [Proair] Albuterol Sulfate [Albuterol 0.63% 0.63 mg IH TID PRN #90 ml 12/21/16 12/08/18 Unknown Rx NEBS] Amlodipine Besylate [Norvasc] 10 mg PO DAILY #90 tablet 12/21/16 12/08/18 Unknown Rx AtorvaSTATin [Lipitor] 20 mg PO QHS #90 tablet 12/21/16 12/08/18 Unknown Rx Hydralazine HCl [Apresoline TAB] 50 mg PO TID #90 tablet 12/21/16 12/08/18 Unknown Rx Metoprolol [Lopressor TAB] 25 mg PO BID #90 tablet 12/21/16 12/08/18 Unknown Rx Promethazine /Codeine 5 ml PO Q6H PRN #100 ml 12/21/16 12/08/18 Unknown Rx [Phenergan/Codeine 6.25-10 mg/5 ml] Active Medications: Generic Name Dose Route Start Last Admin Trade Name Freq PRN Reason Stop Dose Admin Acetaminophen 650 mg 12/09/18 01:00 12/09/18 10:00 Tylenol FL 650 mg Q4H PRN Administration Pain MILD(1-3)/Fever >100.5/TURNER Albuterol 2.5 mg 12/09/18 00:31 Proventil IH Q4HRT PRN Shortness Of Breath Albuterol/Ipratropium 1 ampul 12/09/18 02:00 12/26/18 07:56 Duoneb *Not For Prn Use* IH 1 ampul Q6HRT KOLE Administration Lipase/Protease/Amylase 1 each 12/09/18 04:[address] 10,500 Unit FEEDTUBE PRN PRN For Clogged Feeding Tube Dextrose 50 ml 12/24/18 00:42 12/24/18 00:30 D50w (25gm) Syringe IV 50 ml PRN PRN Administration Hypoglycemia Hydrophilic Ointment 1 applic 12/14/18 13:00 Vaseline Lip Therapy TP DIRECT PRN Dry tongue Norepinephrine 4 mg in 250 mls @ 7.5 mls/hr 12/18/18 18:00 12/19/18 18:00 Levophed Drip 4 Mg/Ns 250 Ml IV 0 mcg/min TITR KOLE 0 mls/hr Titration Protocol 2 MCG/MIN Sodium Chloride 1,000 mls @ 50 mls/hr 12/23/18 13:00 12/26/18 05:20 Nacl 0.9% 1000 Ml IV 50 mls/hr DIRECT KOLE Administration Insulin Human Lispro 0 unit 12/11/18 12:00 12/26/18 06:24 Humalog SUB-Q 3 unit Q6HR KOLE Administration Protocol Lansoprazole 30 mg 12/12/18 10:00 12/25/18 21:18 Prevacid Solutab FEEDTUBE 30 mg BID KOLE Administration Midodrine 10 mg 12/18/18 19:01 12/26/18 08:39 Proamatine PO 10 mg TID@0800,1200,1600 KOLE Administration Multi-Ingred Cream/Lotion/Oil/Oint 1 applic 12/08/18 13:31 Artificial Tears Ophth Oint OU Q4HR PRN Dry Eye(s) Ondansetron HCl 4 mg 12/09/18 00:31 Zofran IV Q8H PRN Nausea And Vomiting Simple Syrup 15 ml 12/09/18 04:05 Simple Syrup FEEDTUBE PRN PRN Hypoglycemia Simple Syrup 30 ml 12/09/18 04:05 Simple Syrup FEEDTUBE PRN PRN Hypoglycemia Sodium Bicarbonate 325 mg 12/09/18 04:05 Sodium Bicarbonate FEEDTUBE PRN PRN For Clogged Feeding Tube Sodium Chloride 10 ml 12/09/18 10:00 12/25/18 21:19 Sodium Chloride Flush Syringe 10 Ml IV 10 ml BID KOLE Administration Sodium Chloride 10 ml 12/09/18 00:31 12/17/18 10:47 Sodium Chloride Flush Syringe 10 Ml IV 10 ml PRN PRN Administration LINE FLUSH
--- NOTE | 2018-12-26 10:57 | Progress Note ---
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 - Blood culture 12/08/2018 no growth so far. - Lactate 4 on admission. - unable to do LP due to thrombocytopenia, and has received empiric treatment anyways. 2) UTI: UA wbc 157, LE mod. Urine culture was not sent. Treated adequately with empiric abx. 3) Right otitis media / mastoiditis: Per grand-daughter, she had been c/o right ear pain and drainage week prior to admission. Patient was putting Neosporin and perhaps ear stephanie in the patient's ear. On physical exam, patient found to have purulent discharge from the right ear, and stephanie were removed by ED physician. There was probable perforation of the right sided tympanic membrane per ED physician. Got dexamethasone. 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 Completed several days of broad spectrum abx including Meropenem on 12/25/2018.. 4) Acute encephalopathy: not better, from sepsis versus meningitis versus CVA. CT head extensive right MCA encephalomalcia, right mastoid opacities. 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 5) Acute respiratory failure: CXR showed small left pleural effusion. CT chest showed large pericardial effusion, LLL atelectasis v/s infiltrate and left pleural effusion. Remains ventilator dependent. 6) ?GI bleed 7) Severe thrombocytopenia: worsening. (could consider hematology consult, but prognosis is poor), creatinine rising, recommend hospice/comfort care only. 8) Large pericardial effusion: TTE EF>50, no echo evidence of tamponade 9) Penicillin allergy: tolerated cefepime, meropenem. 10) CKD: renally adjusted antibiotics Recommendations: - off abx since 12/25/2018 - CBC, BMP ordered for AM - poor prognosis, recommend palliative care/hospice MD [facility] C: [phone] O: [phone] F: [phone] Subjective Date of service: 12/26/18 Principal diagnosis: Acute respiratory failure Interval history: Hypothermic again requiring warming blanket. Maintaining blood pressure. Remains unresponsive, on the ventilator. Objective - Exam Narrative Exam: Physical Exam: Constitutional: unresponsive, intubated, non verbal Head, Ears, Nose: Normocephalic, atraumatic. nose normal. External ears normal. Eyes: Conjunctivae/corneas clear. No icterus. No ptosis. Neck: Supple, no meningeal signs Oral: intubated, tongue protruding. ET tube + Cardiovascular: S1, S2 normal. Respiratory: Good air entry, clear to auscultation bilaterally GI: Soft, non-tender; bowel sounds +, No peritoneal signs Musculoskeletal: No pedal edema, no cyanosis. Skin: No rash or abscess. Skin breakdowns + near sacrum but superficial Hem/Lymphatic: No palpable cervical or supraclavicular nodes. No lymphangitis Psych: no agitation Neurological: unresponsive, intubated, on vent - Constitutional Vitals: Vital Signs Temp Pulse Resp BP Pulse Ox 96.2 F L 77 18 157/50 100 12/26/18 07:41 12/26/18 10:01 12/26/18 10:01 12/26/18 10:01 12/26/18 10:01 Temperature -Last 24 Hours Temperature 96.2 F Temperature 95 F Temperature 95.8 F Temperature 94.8 F Temperature 96.1 F Temperature 96.2 F - Labs CBC & Chem 7: 12/24/18 06:00 12/24/18 06:00 Labs: Abnormal lab results 12/25/18 12/25/18 12/26/18 Range/Units 12:05 18:33 00:07 POC Glucose 161 H 237 H 178 H (70-105) 12/26/18 Range/Units 05:09 POC Glucose 171 H (70-105)
[2018-12-26] MEDS: PREVACID SOLUTAB FEEDTUBE SCH ×2 (11:01→23:16)
[2018-12-26] MEDS: SODIUM CHLORIDE FLUSH SYRINGE 10 ML IV SCH ×3 (11:01→23:16)
--- NOTE | 2018-12-26 12:46 | Progress Note ---
Assessment and Plan Imp: 1. UTI 2. Sepsis 3. Acute respiratory failure, hypoxia 4. MARYANN 5. Thrombocytopenia 6. Acute encephalopathy 7. Hx of CVA 8. Comatose Rec: 1. Prognosis is dismal; withdrawal of mechanical ventilation and palliative care would be the most appropriate management at this point, especially in light of apnea on PSV (she would require long-term ventilator facility until she dies); reviewed case resource manager notes -> Grand-daughter is primary decision maker as stated by patient's son; I tried to call the grand-daughter today and yesterday to d/w her re: poor prognosis and plans moving forward, no answer 2. ABX per ID 3. IVFs per renal 4. TFs, GI PPx 5. SCDs; would try to keep platelets greater than 20K; agree with hematology evaluation 6. Stopped Solumedrol Complex decision-making Subjective Date of service: 12/26/18 Principal diagnosis: Acute respiratory failure Interval history: Hypothermic on warming blanket. 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 Not able to communicate. Comatose. Active Medications Acetaminophen (Tylenol) 650 mg NC Q4H PRN PRN Reason: Pain MILD(1-3)/Fever >100.5/TURNER Last Admin: 12/09/18 10:00 Dose: 650 mg Documented by: Albuterol (Proventil) 2.5 mg IH Q4HRT PRN PRN Reason: Shortness Of Breath Albuterol/Ipratropium (Duoneb *Not For Prn Use*) 1 ampul IH Q6HRT KOLE Last Admin: 12/26/18 07:56 Dose: 1 ampul Documented by: Lipase/Protease/Amylase (Pancreaze Dr 10,500 Unit) 1 each FEEDTUBE PRN PRN PRN Reason: For Clogged Feeding Tube Dextrose (D50w (25gm) Syringe) 50 ml IV PRN PRN PRN Reason: Hypoglycemia Last Admin: 12/24/18 00:30 Dose: 50 ml Documented by: Hydrophilic Ointment (Vaseline Lip Therapy) 1 applic TP DIRECT PRN PRN Reason: Dry tongue Norepinephrine (Levophed Drip 4 Mg/Ns 250 Ml) 4 mg in 250 mls @ 7.5 mls/hr IV TITR KOLE; Protocol Last Titration: 12/19/18 18:00 Dose: 0 mcg/min, 0 mls/hr Documented by: Sodium Chloride (Nacl 0.9% 1000 Ml) 1,000 mls @ 50 mls/hr IV DIRECT [facility] Last Admin: 12/26/18 05:20 Dose: 50 mls/hr Documented by: Insulin Human Lispro (Humalog) 0 unit SUB-Q Q6HR [facility]; Protocol Last Admin: 12/26/18 06:24 Dose: 3 unit Documented by: Lansoprazole (Prevacid Solutab) 30 mg FEEDTUBE BID [facility] Last Admin: 12/26/18 11:01 Dose: 30 mg Documented by: Midodrine (Proamatine) 10 mg PO TID@0800,1200,1600 [facility] Last Admin: 12/26/18 08:39 Dose: 10 mg Documented by: Multi-Ingred Cream/Lotion/Oil/Oint (Artificial Tears Ophth Oint) 1 applic OU Q4HR PRN PRN Reason: Dry Eye(s) Ondansetron HCl (Zofran) 4 mg IV Q8H PRN PRN Reason: Nausea And Vomiting Simple Syrup (Simple Syrup) 15 ml FEEDTUBE PRN PRN PRN Reason: Hypoglycemia Simple Syrup (Simple Syrup) 30 ml FEEDTUBE PRN PRN PRN Reason: Hypoglycemia Sodium Bicarbonate (Sodium Bicarbonate) 325 mg FEEDTUBE PRN PRN PRN Reason: For Clogged Feeding Tube Sodium Chloride (Sodium Chloride Flush Syringe 10 Ml) 10 ml IV BID [facility] Last Admin: 12/26/18 11:01 Dose: 10 ml Documented by: Sodium Chloride (Sodium Chloride Flush Syringe 10 Ml) 10 ml IV PRN PRN PRN Reason: LINE FLUSH Last Admin: 12/17/18 10:47 Dose: 10 ml Documented by: Objective Vital Signs - 12hr 12/26/18 12/26/18 12/26/18 01:01 01:30 02:00 Temperature Pulse Rate 64 71 65 Pulse Rate [ Anterior Bilateral Throughout] Pulse Rate [ From Monitor] Pulse Rate [ Throughout] Respiratory 18 18 18 Rate Respiratory Rate [Anterior Bilateral Throughout] Respiratory Rate [ Throughout] Blood Pressure 147/61 148/60 146/59 O2 Sat by Pulse 100 100 100 Oximetry 12/26/18 12/26/18 12/26/18 02:15 02:31 03:00 Temperature Pulse Rate 74 67 Pulse Rate [ 64 Anterior Bilateral Throughout] Pulse Rate [ From Monitor] Pulse Rate [ Throughout] Respiratory 17 18 Rate Respiratory 18 Rate [Anterior Bilateral Throughout] Respiratory Rate [ Throughout] Blood Pressure 148/60 159/69 O2 Sat by Pulse 100 100 Oximetry 12/26/18 12/26/18 12/26/18 03:05 03:25 03:31 Temperature 95 F L Pulse Rate 69 63 Pulse Rate [ Anterior Bilateral Throughout] Pulse Rate [ From Monitor] Pulse Rate [ Throughout] Respiratory 18 Rate Respiratory Rate [Anterior Bilateral Throughout] Respiratory Rate [ Throughout] Blood Pressure 160/48 157/38 O2 Sat by Pulse 100 100 Oximetry 12/26/18 12/26/18 12/26/18 04:00 04:01 04:30 Temperature Pulse Rate 72 73 64 Pulse Rate [ Anterior Bilateral Throughout] Pulse Rate [ 72 From Monitor] Pulse Rate [ Throughout] Respiratory 18 18 18 Rate Respiratory Rate [Anterior Bilateral Throughout] Respiratory Rate [ Throughout] Blood Pressure 157/40 134/70 O2 Sat by Pulse 100 100 100 Oximetry 12/26/18 12/26/18 12/26/18 05:01 05:31 06:00 Temperature Pulse Rate 66 67 65 Pulse Rate [ Anterior Bilateral Throughout] Pulse Rate [ From Monitor] Pulse Rate [ Throughout] Respiratory 18 18 18 Rate Respiratory Rate [Anterior Bilateral Throughout] Respiratory Rate [ Throughout] Blood Pressure 149/64 142/47 133/50 O2 Sat by Pulse 100 100 100 Oximetry 12/26/18 12/26/18 12/26/18 06:30 07:00 07:30 Temperature Pulse Rate 74 67 73 Pulse Rate [ Anterior Bilateral Throughout] Pulse Rate [ From Monitor] Pulse Rate [ Throughout] Respiratory 18 18 18 Rate Respiratory Rate [Anterior Bilateral Throughout] Respiratory Rate [ Throughout] Blood Pressure 127/60 130/52 132/55 O2 Sat by Pulse 100 100 100 Oximetry 12/26/18 12/26/18 12/26/18 07:41 07:56 08:00 Temperature 96.2 F L Pulse Rate 71 74 Pulse Rate [ Anterior Bilateral Throughout] Pulse Rate [ 72 From Monitor] Pulse Rate [ 69 Throughout] Respiratory 18 Rate Respiratory Rate [Anterior Bilateral Throughout] Respiratory 18 Rate [ Throughout] Blood Pressure 132/55 123/69 O2 Sat by Pulse 100 100 Oximetry 12/26/18 12/26/18 12/26/18 08:06 08:30 09:00 Temperature Pulse Rate 69 75 Pulse Rate [ Anterior Bilateral Throughout] Pulse Rate [ From Monitor] Pulse Rate [ 76 Throughout] Respiratory 18 18 Rate Respiratory Rate [Anterior Bilateral Throughout] Respiratory 18 Rate [ Throughout] Blood Pressure 126/51 126/51 O2 Sat by Pulse 100 100 Oximetry 12/26/18 12/26/18 12/26/18 09:31 10:01 12:00 Temperature 96.2 F L Pulse Rate 71 77 Pulse Rate [ Anterior Bilateral Throughout] Pulse Rate [ From Monitor] Pulse Rate [ Throughout] Respiratory 18 18 Rate Respiratory Rate [Anterior Bilateral Throughout] Respiratory Rate [ Throughout] Blood Pressure 155/66 157/50 O2 Sat by Pulse 100 100 Oximetry 12/26/18 12:02 Temperature Pulse Rate 78 Pulse Rate [ Anterior Bilateral Throughout] Pulse Rate [ From Monitor] Pulse Rate [ Throughout] Respiratory Rate Respiratory Rate [Anterior Bilateral Throughout] Respiratory Rate [ Throughout] Blood Pressure 164/46 O2 Sat by Pulse 100 Oximetry Constitutional: no acute distress, comatose, other (on vent cmv) Eyes: non-icteric ENT: oropharynx moist, other (ETT in position, large/edematous tongue) Neck: supple Effort: normal Ascultation: Bilateral: other (coarse BS bilaterally) Cardiovascular: regular rate and rhythm, other (pacemaker rhythm) Gastrointestinal: normoactive bowel sounds, non-distended Integumentary: normal Extremities: no cyanosis, no edema, pink and warm Neurologic: pupils equal and round, other (comatose, flaccid extremities, does not track or follow commands, + Cough, Apnea on PSV) CBC and BMP: 12/24/18 06:00 12/24/18 06:00 ABG, PT/INR, D-dimer: ABG POC ABG pH 7.325 (7.35-7.45) L 12/15/18 03:37 POC ABG pCO2 28.6 (35-45) L 12/15/18 03:37 POC ABG pO2 105 (80-105) 12/15/18 03:37 POC ABG HCO3 14.9 12/15/18 03:37 POC ABG Total CO2 16 12/15/18 03:37 POC ABG O2 Sat 98 12/15/18 03:37 PT/INR, D-dimer PT 20.2 Sec. (12.2-14.9) H 12/12/18 08:00 INR 1.61 (0.87-1.13) H 12/12/18 08:00 Abnormal lab findings: Abnormal Labs 12/08/18 12/08/18 12/08/18 12:58 13:40 13:40 WBC RBC Hgb Hct MCV MCH RDW Plt Count Lymph % (Auto) Lymph # Seg Neutrophils % Seg Neuts % (Manual) Lymphocytes % (Manual) Monocytes % (Manual) Nucleated RBC % Seg Neutrophils # Seg Neutrophils # Man Lymphocytes # (Manual) Monocytes # (Manual) PT INR POC ABG pH POC ABG pCO2 POC ABG pO2 Sodium Potassium Chloride Carbon Dioxide BUN Creatinine Glucose POC Glucose 143 H Lactic Acid Calcium Phosphorus Magnesium Total Bilirubin AST Alkaline Phosphatase Total Creatine Kinase C-Reactive Protein Total Protein Albumin TSH Free T4 Urine WBC (Auto) 157.0 H Crossmatch See Detail 12/08/18 12/08/18 12/08/18 13:40 13:40 13:40 WBC RBC 3.06 L Hgb 6.8 L Hct 21.1 L MCV 69 L MCH 22 L RDW 16.2 H Plt Count 56 L Lymph % (Auto) Lymph # Seg Neutrophils % Seg Neuts % (Manual) Lymphocytes % (Manual) 2.0 L Monocytes % (Manual) Nucleated RBC % Seg Neutrophils # Seg Neutrophils # Man Lymphocytes # (Manual) 0.2 L Monocytes # (Manual) PT INR POC ABG pH POC ABG pCO2 POC ABG pO2 Sodium Potassium 3.2 L Chloride Carbon Dioxide 18 L BUN 64 H Creatinine 1.5 H Glucose 145 H POC Glucose Lactic Acid 4.00 H* Calcium 7.7 L Phosphorus Magnesium Total Bilirubin AST Alkaline Phosphatase Total Creatine Kinase 258 H C-Reactive Protein Total Protein 4.6 L Albumin 1.8 L TSH Free T4 Urine WBC (Auto) Crossmatch 12/08/18 12/08/18 12/08/18 14:29 15:21 16:06 WBC RBC Hgb Hct MCV MCH RDW Plt Count Lymph % (Auto) Lymph # Seg Neutrophils % Seg Neuts % (Manual) Lymphocytes % (Manual) Monocytes % (Manual) Nucleated RBC % Seg Neutrophils # Seg Neutrophils # Man Lymphocytes # (Manual) Monocytes # (Manual) PT 20.5 H INR 1.64 H POC ABG pH POC ABG pCO2 34.2 L POC ABG pO2 465 H Sodium Potassium Chloride Carbon Dioxide BUN Creatinine Glucose POC Glucose Lactic Acid 3.00 H* Calcium Phosphorus Magnesium Total Bilirubin AST Alkaline Phosphatase Total Creatine Kinase C-Reactive Protein Total Protein Albumin TSH Free T4 Urine WBC (Auto) Crossmatch 12/09/18 12/09/18 12/09/18 02:31 05:36 05:36 WBC 14.5 H RBC Hgb Hct MCV 75 L MCH 25 L RDW 20.4 H Plt Count 68 L Lymph % (Auto) Lymph # Seg Neutrophils % Seg Neuts % (Manual) 81.0 H Lymphocytes % (Manual) 1.0 L Monocytes % (Manual) Nucleated RBC % Seg Neutrophils # Seg Neutrophils # Man 11.7 H Lymphocytes # (Manual) 0.1 L Monocytes # (Manual) PT INR POC ABG pH POC ABG pCO2 POC ABG pO2 Sodium Potassium Chloride 107.6 H Carbon Dioxide 18 L BUN 75 H Creatinine 1.9 H Glucose 136 H POC Glucose 152 H Lactic Acid Calcium 7.9 L Phosphorus Magnesium Total Bilirubin 1.60 H AST 44 H Alkaline Phosphatase Total Creatine Kinase C-Reactive Protein Total Protein 5.2 L Albumin 2.4 L TSH Free T4 Urine WBC (Auto) Crossmatch 12/09/18 12/09/18 12/09/18 05:43 10:47 13:46 WBC RBC Hgb Hct MCV MCH RDW Plt Count Lymph % (Auto) Lymph # Seg Neutrophils % Seg Neuts % (Manual) Lymphocytes % (Manual) Monocytes % (Manual) Nucleated RBC % Seg Neutrophils # Seg Neutrophils # Man Lymphocytes # (Manual) Monocytes # (Manual) PT INR POC ABG pH 7.308 L POC ABG pCO2 POC ABG pO2 183 H Sodium Potassium Chloride Carbon Dioxide BUN Creatinine Glucose POC Glucose 150 H 162 H Lactic Acid Calcium Phosphorus Magnesium Total Bilirubin AST Alkaline Phosphatase Total Creatine Kinase C-Reactive Protein Total Protein Albumin TSH Free T4 Urine WBC (Auto) Crossmatch 12/09/18 12/09/18 12/09/18 15:54 15:54 16:40 WBC RBC Hgb Hct MCV MCH RDW Plt Count Lymph % (Auto) Lymph # Seg Neutrophils % Seg Neuts % (Manual) Lymphocytes % (Manual) Monocytes % (Manual) Nucleated RBC % Seg Neutrophils # Seg Neutrophils # Man Lymphocytes # (Manual) Monocytes # (Manual) PT INR POC ABG pH POC ABG pCO2 POC ABG pO2 Sodium Potassium Chloride Carbon Dioxide BUN Creatinine Glucose POC Glucose 197 H Lactic Acid Calcium Phosphorus Magnesium Total Bilirubin AST Alkaline Phosphatase Total Creatine Kinase C-Reactive Protein Total Protein Albumin TSH 0.268 L Free T4 0.58 L Urine WBC (Auto) Crossmatch 12/09/18 12/09/18 12/09/18 18:18 18:18 21:51 WBC RBC Hgb Hct MCV MCH RDW Plt Count Lymph % (Auto) Lymph # Seg Neutrophils % Seg Neuts % (Manual) Lymphocytes % (Manual) Monocytes % (Manual) Nucleated RBC % Seg Neutrophils # Seg Neutrophils # Man Lymphocytes # (Manual) Monocytes # (Manual) PT INR POC ABG pH POC ABG pCO2 POC ABG pO2 Sodium Potassium Chloride 108.2 H Carbon Dioxide 16 L BUN 89 H Creatinine 2.3 H Glucose 180 H POC Glucose 198 H Lactic Acid Calcium 7.9 L Phosphorus Magnesium Total Bilirubin AST Alkaline Phosphatase Total Creatine Kinase C-Reactive Protein 19.60 H Total Protein Albumin TSH Free T4 Urine WBC (Auto) Crossmatch 12/10/18 12/10/18 12/10/18 01:59 04:14 04:38 WBC 11.5 H RBC Hgb Hct MCV 75 L MCH 25 L RDW 21.1 H Plt Count 81 L Lymph % (Auto) 5.6 L Lymph # 0.6 L Seg Neutrophils % 89.8 H Seg Neuts % (Manual) Lymphocytes % (Manual) Monocytes % (Manual) Nucleated RBC % Seg Neutrophils # 10.3 H Seg Neutrophils # Man Lymphocytes # (Manual) Monocytes # (Manual) PT INR POC ABG pH 7.273 L POC ABG pCO2 32.1 L POC ABG pO2 161 H Sodium Potassium Chloride Carbon Dioxide BUN Creatinine Glucose POC Glucose 219 H Lactic Acid Calcium Phosphorus Magnesium Total Bilirubin AST Alkaline Phosphatase Total Creatine Kinase C-Reactive Protein Total Protein Albumin TSH Free T4 Urine WBC (Auto) Crossmatch 12/10/18 12/10/18 12/10/18 04:38 05:07 07:26 WBC RBC Hgb Hct MCV MCH RDW Plt Count Lymph % (Auto) Lymph # Seg Neutrophils % Seg Neuts % (Manual) Lymphocytes % (Manual) Monocytes % (Manual) Nucleated RBC % Seg Neutrophils # Seg Neutrophils # Man Lymphocytes # (Manual) Monocytes # (Manual) PT INR POC ABG pH POC ABG pCO2 POC ABG pO2 Sodium Potassium Chloride 112.5 H Carbon Dioxide 14 L BUN 94 H Creatinine 2.4 H Glucose 207 H POC Glucose 221 H 212 H Lactic Acid Calcium 7.7 L Phosphorus Magnesium Total Bilirubin AST Alkaline Phosphatase Total Creatine Kinase C-Reactive Protein Total Protein Albumin TSH Free T4 Urine WBC (Auto) Crossmatch 12/10/18 12/10/18 12/10/18 10:40 11:15 14:21 WBC RBC Hgb Hct MCV MCH RDW Plt Count Lymph % (Auto) Lymph # Seg Neutrophils % Seg Neuts % (Manual) Lymphocytes % (Manual) Monocytes % (Manual) Nucleated RBC % Seg Neutrophils # Seg Neutrophils # Man Lymphocytes # (Manual) Monocytes # (Manual) PT 21.4 H INR 1.73 H POC ABG pH 7.214 L POC ABG pCO2 32.8 L POC ABG pO2 Sodium Potassium Chloride Carbon Dioxide BUN Creatinine Glucose POC Glucose 227 H Lactic Acid Calcium Phosphorus Magnesium Total Bilirubin AST Alkaline Phosphatase Total Creatine Kinase C-Reactive Protein Total Protein Albumin TSH Free T4 Urine WBC (Auto) Crossmatch 12/10/18 12/10/18 12/11/18 15:47 22:38 03:36 WBC RBC Hgb Hct MCV MCH RDW Plt Count Lymph % (Auto) Lymph # Seg Neutrophils % Seg Neuts % (Manual) Lymphocytes % (Manual) Monocytes % (Manual) Nucleated RBC % Seg Neutrophils # Seg Neutrophils # Man Lymphocytes # (Manual) Monocytes # (Manual) PT INR POC ABG pH POC ABG pCO2 26.2 L POC ABG pO2 138 H Sodium Potassium Chloride Carbon Dioxide BUN Creatinine Glucose POC Glucose 202 H 259 H Lactic Acid Calcium Phosphorus Magnesium Total Bilirubin AST Alkaline Phosphatase Total Creatine Kinase C-Reactive Protein Total Protein Albumin TSH Free T4 Urine WBC (Auto) Crossmatch 12/11/18 12/11/18 12/11/18 04:12 05:00 06:19 WBC RBC Hgb Hct MCV MCH RDW Plt Count Lymph % (Auto) Lymph # Seg Neutrophils % Seg Neuts % (Manual) Lymphocytes % (Manual) Monocytes % (Manual) Nucleated RBC % Seg Neutrophils # Seg Neutrophils # Man Lymphocytes # (Manual) Monocytes # (Manual) PT 19.5 H INR 1.54 H POC ABG pH POC ABG pCO2 24.6 L POC ABG pO2 119 H Sodium Potassium Chloride Carbon Dioxide BUN Creatinine Glucose POC Glucose 174 H Lactic Acid Calcium Phosphorus Magnesium Total Bilirubin AST Alkaline Phosphatase Total Creatine Kinase C-Reactive Protein Total Protein Albumin TSH Free T4 Urine WBC (Auto) Crossmatch 12/11/18 12/11/18 12/11/18 11:10 11:10 18:10 WBC 14.3 H RBC Hgb Hct MCV 73 L MCH 24 L RDW 21.5 H Plt Count Lymph % (Auto) Lymph # Seg Neutrophils % Seg Neuts % (Manual) Lymphocytes % (Manual) Monocytes % (Manual) Nucleated RBC % Seg Neutrophils # Seg Neutrophils # Man Lymphocytes # (Manual) Monocytes # (Manual) PT INR POC ABG pH POC ABG pCO2 POC ABG pO2 Sodium Potassium Chloride 110.5 H Carbon Dioxide 15 L BUN 101 H Creatinine 2.4 H Glucose 119 H POC Glucose 147 H Lactic Acid Calcium 7.7 L Phosphorus Magnesium Total Bilirubin AST Alkaline Phosphatase Total Creatine Kinase C-Reactive Protein Total Protein Albumin TSH Free T4 Urine WBC (Auto) Crossmatch 12/11/18 12/12/18 12/12/18 23:25 05:37 06:03 WBC RBC Hgb Hct MCV MCH RDW Plt Count Lymph % (Auto) Lymph # Seg Neutrophils % Seg Neuts % (Manual) Lymphocytes % (Manual) Monocytes % (Manual) Nucleated RBC % Seg Neutrophils # Seg Neutrophils # Man Lymphocytes # (Manual) Monocytes # (Manual) PT INR POC ABG pH 7.346 L POC ABG pCO2 28.3 L POC ABG pO2 120 H Sodium Potassium Chloride Carbon Dioxide BUN Creatinine Glucose POC Glucose 143 H 154 H Lactic Acid Calcium Phosphorus Magnesium Total Bilirubin AST Alkaline Phosphatase Total Creatine Kinase C-Reactive Protein Total Protein Albumin TSH Free T4 Urine WBC (Auto) Crossmatch 12/12/18 12/12/18 12/12/18 08:00 08:00 08:00 WBC 16.2 H RBC Hgb Hct MCV 74 L MCH 25 L RDW 21.9 H Plt Count 21 L Lymph % (Auto) Lymph # Seg Neutrophils % Seg Neuts % (Manual) Lymphocytes % (Manual) Monocytes % (Manual) Nucleated RBC % Seg Neutrophils # Seg Neutrophils # Man Lymphocytes # (Manual) Monocytes # (Manual) PT 20.2 H INR 1.61 H POC ABG pH POC ABG pCO2 POC ABG pO2 Sodium Potassium Chloride 107.4 H Carbon Dioxide 16 L BUN 101 H Creatinine 2.3 H Glucose 169 H POC Glucose Lactic Acid Calcium 8.2 L Phosphorus Magnesium Total Bilirubin AST Alkaline Phosphatase Total Creatine Kinase C-Reactive Protein Total Protein Albumin TSH Free T4 Urine WBC (Auto) Crossmatch 12/12/18 12/12/18 12/13/18 12:59 18:01 04:28 WBC 18.6 H RBC Hgb Hct MCV 74 L MCH 24 L RDW 21.8 H Plt Count 34 L Lymph % (Auto) Lymph # Seg Neutrophils % Seg Neuts % (Manual) 97.0 H Lymphocytes % (Manual) 2.0 L Monocytes % (Manual) Nucleated RBC % 1.0 H Seg Neutrophils # Seg Neutrophils # Man 18.0 H Lymphocytes # (Manual) 0.4 L Monocytes # (Manual) PT INR POC ABG pH POC ABG pCO2 POC ABG pO2 Sodium Potassium Chloride Carbon Dioxide BUN Creatinine Glucose POC Glucose 158 H 123 H Lactic Acid Calcium Phosphorus Magnesium Total Bilirubin AST Alkaline Phosphatase Total Creatine Kinase C-Reactive Protein Total Protein Albumin TSH Free T4 Urine WBC (Auto) Crossmatch 12/13/18 12/13/18 12/13/18 04:28 04:45 19:17 WBC RBC Hgb Hct MCV MCH RDW Plt Count Lymph % (Auto) Lymph # Seg Neutrophils % Seg Neuts % (Manual) Lymphocytes % (Manual) Monocytes % (Manual) Nucleated RBC % Seg Neutrophils # Seg Neutrophils # Man Lymphocytes # (Manual) Monocytes # (Manual) PT INR POC ABG pH 7.327 L POC ABG pCO2 31.1 L POC ABG pO2 136 H Sodium Potassium Chloride 112.0 H Carbon Dioxide 17 L BUN 97 H Creatinine 2.2 H Glucose POC Glucose 106 H Lactic Acid Calcium 8.1 L Phosphorus Magnesium Total Bilirubin AST Alkaline Phosphatase Total Creatine Kinase C-Reactive Protein Total Protein Albumin TSH Free T4 Urine WBC (Auto) Crossmatch 12/13/18 12/14/18 12/14/18 23:24 03:35 03:35 WBC 22.0 H RBC Hgb Hct MCV 75 L MCH 24 L RDW 22.2 H Plt Count 44 L Lymph % (Auto) Lymph # Seg Neutrophils % Seg Neuts % (Manual) 96.0 H Lymphocytes % (Manual) 3.0 L Monocytes % (Manual) Nucleated RBC % Seg Neutrophils # Seg Neutrophils # Man 21.1 H Lymphocytes # (Manual) 0.7 L Monocytes # (Manual) PT INR POC ABG pH POC ABG pCO2 POC ABG pO2 Sodium 136 L Potassium Chloride 107.2 H Carbon Dioxide 15 L BUN 87 H Creatinine 1.7 H Glucose 156 H POC Glucose 108 H Lactic Acid Calcium 7.7 L Phosphorus Magnesium Total Bilirubin AST Alkaline Phosphatase Total Creatine Kinase C-Reactive Protein Total Protein Albumin TSH Free T4 Urine WBC (Auto) Crossmatch 12/14/18 12/14/18 12/14/18 04:58 05:37 12:10 WBC RBC Hgb Hct MCV MCH RDW Plt Count Lymph % (Auto) Lymph # Seg Neutrophils % Seg Neuts % (Manual) Lymphocytes % (Manual) Monocytes % (Manual) Nucleated RBC % Seg Neutrophils # Seg Neutrophils # Man Lymphocytes # (Manual) Monocytes # (Manual) PT INR POC ABG pH 7.301 L POC ABG pCO2 32.6 L POC ABG pO2 138 H Sodium Potassium Chloride Carbon Dioxide BUN Creatinine Glucose POC Glucose 178 H 208 H Lactic Acid Calcium Phosphorus Magnesium Total Bilirubin AST Alkaline Phosphatase Total Creatine Kinase C-Reactive Protein Total Protein Albumin TSH Free T4 Urine WBC (Auto) Crossmatch 12/14/18 12/14/18 12/15/18 17:44 23:16 03:37 WBC RBC Hgb Hct MCV MCH RDW Plt Count Lymph % (Auto) Lymph # Seg Neutrophils % Seg Neuts % (Manual) Lymphocytes % (Manual) Monocytes % (Manual) Nucleated RBC % Seg Neutrophils # Seg Neutrophils # Man Lymphocytes # (Manual) Monocytes # (Manual) PT INR POC ABG pH 7.325 L POC ABG pCO2 28.6 L POC ABG pO2 Sodium Potassium Chloride Carbon Dioxide BUN Creatinine Glucose POC Glucose 172 H 123 H Lactic Acid Calcium Phosphorus Magnesium Total Bilirubin AST Alkaline Phosphatase Total Creatine Kinase C-Reactive Protein Total Protein Albumin TSH Free T4 Urine WBC (Auto) Crossmatch 12/15/18 12/15/18 12/15/18 05:30 05:30 05:43 WBC 20.1 H RBC Hgb 9.5 L Hct 29.2 L MCV 74 L MCH 24 L RDW 22.7 H Plt Count 48 L Lymph % (Auto) Lymph # Seg Neutrophils % Seg Neuts % (Manual) 96.0 H Lymphocytes % (Manual) 1.0 L Monocytes % (Manual) Nucleated RBC % Seg Neutrophils # Seg Neutrophils # Man 19.3 H Lymphocytes # (Manual) 0.2 L Monocytes # (Manual) PT INR POC ABG pH POC ABG pCO2 POC ABG pO2 Sodium Potassium Chloride 110.8 H Carbon Dioxide 17 L BUN 83 H Creatinine 1.6 H Glucose 150 H POC Glucose 151 H Lactic Acid Calcium 7.7 L Phosphorus Magnesium Total Bilirubin AST Alkaline Phosphatase Total Creatine Kinase C-Reactive Protein Total Protein Albumin TSH Free T4 Urine WBC (Auto) Crossmatch 12/15/18 12/15/1812/16/19 12:56 18:21 00:10 WBC RBC Hgb Hct MCV MCH RDW Plt Count Lymph % (Auto) Lymph # Seg Neutrophils % Seg Neuts % (Manual) Lymphocytes % (Manual) Monocytes % (Manual) Nucleated RBC % Seg Neutrophils # Seg Neutrophils # Man Lymphocytes # (Manual) Monocytes # (Manual) PT INR POC ABG pH POC ABG pCO2 POC ABG pO2 Sodium Potassium Chloride Carbon Dioxide BUN Creatinine Glucose POC Glucose 190 H 143 H 174 H Lactic Acid Calcium Phosphorus Magnesium Total Bilirubin AST Alkaline Phosphatase Total Creatine Kinase C-Reactive Protein Total Protein Albumin TSH Free T4 Urine WBC (Auto) Crossmatch 12/16/18 12/16/18 12/16/18 05:24 05:30 05:30 WBC 17.1 H RBC Hgb 9.1 L Hct 28.8 L MCV 76 L MCH 24 L RDW 23.5 H Plt Count 37 L Lymph % (Auto) Lymph # Seg Neutrophils % Seg Neuts % (Manual) Lymphocytes % (Manual) 9.0 L Monocytes % (Manual) 9.0 H Nucleated RBC % Seg Neutrophils # Seg Neutrophils # Man 9.6 H Lymphocytes # (Manual) Monocytes # (Manual) 1.5 H PT INR POC ABG pH POC ABG pCO2 POC ABG pO2 Sodium Potassium Chloride 110.8 H Carbon Dioxide 15 L BUN 81 H Creatinine 1.6 H Glucose 161 H POC Glucose 154 H Lactic Acid Calcium 7.6 L Phosphorus Magnesium Total Bilirubin AST Alkaline Phosphatase Total Creatine Kinase C-Reactive Protein Total Protein Albumin TSH Free T4 Urine WBC (Auto) Crossmatch 12/16/18 12/16/18 12/16/18 12:31 17:42 21:56 WBC RBC Hgb Hct MCV MCH RDW Plt Count Lymph % (Auto) Lymph # Seg Neutrophils % Seg Neuts % (Manual) Lymphocytes % (Manual) Monocytes % (Manual) Nucleated RBC % Seg Neutrophils # Seg Neutrophils # Man Lymphocytes # (Manual) Monocytes # (Manual) PT INR POC ABG pH POC ABG pCO2 POC ABG pO2 Sodium Potassium Chloride Carbon Dioxide BUN Creatinine Glucose POC Glucose 172 H 173 H 118 H Lactic Acid Calcium Phosphorus Magnesium Total Bilirubin AST Alkaline Phosphatase Total Creatine Kinase C-Reactive Protein Total Protein Albumin TSH Free T4 Urine WBC (Auto) Crossmatch 12/16/18 12/17/18 12/17/18 23:38 04:24 04:24 WBC 19.2 H RBC Hgb 9.5 L Hct 29.7 L MCV 76 L MCH 24 L RDW 24.4 H Plt Count 26 L Lymph % (Auto) Lymph # Seg Neutrophils % Seg Neuts % (Manual) Lymphocytes % (Manual) 6.0 L Monocytes % (Manual) Nucleated RBC % Seg Neutrophils # Seg Neutrophils # Man 13.1 H Lymphocytes # (Manual) Monocytes # (Manual) PT INR POC ABG pH POC ABG pCO2 POC ABG pO2 Sodium 134 L Potassium Chloride 110.0 H Carbon Dioxide 14 L BUN 83 H Creatinine 1.6 H Glucose POC Glucose 109 H Lactic Acid Calcium 7.8 L Phosphorus Magnesium Total Bilirubin AST Alkaline Phosphatase Total Creatine Kinase C-Reactive Protein Total Protein Albumin TSH Free T4 Urine WBC (Auto) Crossmatch 12/17/18 12/17/18 12/18/18 06:42 17:49 00:40 WBC RBC Hgb Hct MCV MCH RDW Plt Count Lymph % (Auto) Lymph # Seg Neutrophils % Seg Neuts % (Manual) Lymphocytes % (Manual) Monocytes % (Manual) Nucleated RBC % Seg Neutrophils # Seg Neutrophils # Man Lymphocytes # (Manual) Monocytes # (Manual) PT INR POC ABG pH POC ABG pCO2 POC ABG pO2 Sodium Potassium Chloride 113.1 H Carbon Dioxide 13 L BUN 82 H Creatinine 1.6 H Glucose POC Glucose 66 L 109 H Lactic Acid Calcium 8.0 L Phosphorus Magnesium Total Bilirubin AST Alkaline Phosphatase Total Creatine Kinase C-Reactive Protein Total Protein Albumin TSH Free T4 Urine WBC (Auto) Crossmatch 12/18/18 12/18/18 12/18/18 04:08 04:08 12:45 WBC 26.5 H RBC 3.63 L Hgb 8.7 L Hct 26.8 L MCV 74 L MCH 24 L RDW 23.3 H Plt Count 24 L Lymph % (Auto) Lymph # Seg Neutrophils % Seg Neuts % (Manual) Lymphocytes % (Manual) Monocytes % (Manual) Nucleated RBC % Seg Neutrophils # Seg Neutrophils # Man Lymphocytes # (Manual) Monocytes # (Manual) PT INR POC ABG pH POC ABG pCO2 POC ABG pO2 Sodium Potassium Chloride 114.3 H Carbon Dioxide 16 L BUN 82 H Creatinine 1.7 H Glucose POC Glucose 117 H Lactic Acid Calcium 7.8 L Phosphorus 5.10 H Magnesium Total Bilirubin AST Alkaline Phosphatase Total Creatine Kinase C-Reactive Protein Total Protein Albumin TSH Free T4 Urine WBC (Auto) Crossmatch 12/18/18 12/18/18 12/19/18 17:42 23:39 04:22 WBC 20.4 H RBC 3.01 L Hgb 7.2 L Hct 22.6 L MCV 75 L MCH 24 L RDW 24.5 H Plt Count 52 L D Lymph % (Auto) Lymph # Seg Neutrophils % Seg Neuts % (Manual) Lymphocytes % (Manual) Monocytes % (Manual) Nucleated RBC % Seg Neutrophils # Seg Neutrophils # Man Lymphocytes # (Manual) Monocytes # (Manual) PT INR POC ABG pH POC ABG pCO2 POC ABG pO2 Sodium Potassium Chloride Carbon Dioxide BUN Creatinine Glucose POC Glucose 121 H 184 H Lactic Acid Calcium Phosphorus Magnesium Total Bilirubin AST Alkaline Phosphatase Total Creatine Kinase C-Reactive Protein Total Protein Albumin TSH Free T4 Urine WBC (Auto) Crossmatch 12/19/18 12/19/18 12/19/18 04:22 12:43 18:12 WBC RBC Hgb Hct MCV MCH RDW Plt Count Lymph % (Auto) Lymph # Seg Neutrophils % Seg Neuts % (Manual) Lymphocytes % (Manual) Monocytes % (Manual) Nucleated RBC % Seg Neutrophils # Seg Neutrophils # Man Lymphocytes # (Manual) Monocytes # (Manual) PT INR POC ABG pH POC ABG pCO2 POC ABG pO2 Sodium Potassium Chloride 112.9 H Carbon Dioxide 15 L BUN 76 H Creatinine 1.8 H Glucose 107 H POC Glucose 141 H 227 H Lactic Acid Calcium 7.4 L Phosphorus Magnesium Total Bilirubin AST Alkaline Phosphatase Total Creatine Kinase C-Reactive Protein Total Protein Albumin TSH Free T4 Urine WBC (Auto) Crossmatch 12/19/18 12/19/18 12/20/18 23:55 Unknown 03:07 WBC 15.7 H RBC 2.92 L Hgb 7.2 L 7.1 L Hct 22.2 L 21.6 L MCV 74 L MCH 24 L RDW 24.3 H Plt Count 23 L Lymph % (Auto) Lymph # Seg Neutrophils % Seg Neuts % (Manual) Lymphocytes % (Manual) Monocytes % (Manual) Nucleated RBC % Seg Neutrophils # Seg Neutrophils # Man Lymphocytes # (Manual) Monocytes # (Manual) PT INR POC ABG pH POC ABG pCO2 POC ABG pO2 Sodium Potassium Chloride Carbon Dioxide BUN Creatinine Glucose POC Glucose 174 H Lactic Acid Calcium Phosphorus Magnesium Total Bilirubin AST Alkaline Phosphatase Total Creatine Kinase C-Reactive Protein Total Protein Albumin TSH Free T4 Urine WBC (Auto) Crossmatch 12/20/18 12/20/18 12/20/18 03:07 05:20 11:00 WBC RBC Hgb Hct MCV MCH RDW Plt Count Lymph % (Auto) Lymph # Seg Neutrophils % Seg Neuts % (Manual) Lymphocytes % (Manual) Monocytes % (Manual) Nucleated RBC % Seg Neutrophils # Seg Neutrophils # Man Lymphocytes # (Manual) Monocytes # (Manual) PT INR POC ABG pH POC ABG pCO2 POC ABG pO2 Sodium 136 L Potassium Chloride Carbon Dioxide 20 L BUN 79 H Creatinine 2.1 H Glucose 141 H POC Glucose 210 H Lactic Acid Calcium 7.5 L Phosphorus Magnesium Total Bilirubin AST Alkaline Phosphatase Total Creatine Kinase C-Reactive Protein Total Protein Albumin TSH Free T4 Urine WBC (Auto) Crossmatch See Detail 12/20/18 12/20/18 12/21/18 11:40 17:51 00:33 WBC RBC Hgb Hct MCV MCH RDW Plt Count Lymph % (Auto) Lymph # Seg Neutrophils % Seg Neuts % (Manual) Lymphocytes % (Manual) Monocytes % (Manual) Nucleated RBC % Seg Neutrophils # Seg Neutrophils # Man Lymphocytes # (Manual) Monocytes # (Manual) PT INR POC ABG pH POC ABG pCO2 POC ABG pO2 Sodium Potassium Chloride Carbon Dioxide BUN Creatinine Glucose POC Glucose 183 H 150 H 119 H Lactic Acid Calcium Phosphorus Magnesium Total Bilirubin AST Alkaline Phosphatase Total Creatine Kinase C-Reactive Protein Total Protein Albumin TSH Free T4 Urine WBC (Auto) Crossmatch 12/21/18 12/21/18 12/21/18 05:05 07:19 07:19 WBC 11.9 H RBC 2.83 L Hgb 6.9 L Hct 20.7 L MCV 73 L MCH 24 L RDW 23.9 H Plt Count 11 L* Lymph % (Auto) Lymph # Seg Neutrophils % Seg Neuts % (Manual) Lymphocytes % (Manual) Monocytes % (Manual) Nucleated RBC % Seg Neutrophils # Seg Neutrophils # Man Lymphocytes # (Manual) Monocytes # (Manual) PT INR POC ABG pH POC ABG pCO2 POC ABG pO2 Sodium 135 L Potassium Chloride Carbon Dioxide 21 L BUN 78 H Creatinine 2.3 H Glucose 143 H POC Glucose 165 H Lactic Acid Calcium 7.3 L Phosphorus Magnesium Total Bilirubin AST Alkaline Phosphatase Total Creatine Kinase C-Reactive Protein Total Protein Albumin TSH Free T4 Urine WBC (Auto) Crossmatch 12/21/18 12/21/18 12/21/18 11:55 17:39 18:00 WBC RBC Hgb 7.9 L Hct 23.8 L MCV MCH RDW Plt Count Lymph % (Auto) Lymph # Seg Neutrophils % Seg Neuts % (Manual) Lymphocytes % (Manual) Monocytes % (Manual) Nucleated RBC % Seg Neutrophils # Seg Neutrophils # Man Lymphocytes # (Manual) Monocytes # (Manual) PT INR POC ABG pH POC ABG pCO2 POC ABG pO2 Sodium Potassium Chloride Carbon Dioxide BUN Creatinine Glucose POC Glucose 125 H 108 H Lactic Acid Calcium Phosphorus Magnesium Total Bilirubin AST Alkaline Phosphatase Total Creatine Kinase C-Reactive Protein Total Protein Albumin TSH Free T4 Urine WBC (Auto) Crossmatch 12/21/18 12/22/18 12/22/18 23:55 05:35 05:35 WBC 11.8 H RBC Hgb 9.4 L Hct 28.3 L MCV 76 L MCH 25 L RDW 24.5 H Plt Count 26 L D Lymph % (Auto) Lymph # Seg Neutrophils % Seg Neuts % (Manual) Lymphocytes % (Manual) Monocytes % (Manual) Nucleated RBC % Seg Neutrophils # Seg Neutrophils # Man Lymphocytes # (Manual) Monocytes # (Manual) PT INR POC ABG pH POC ABG pCO2 POC ABG pO2 Sodium 132 L Potassium Chloride Carbon Dioxide 21 L BUN 79 H Creatinine 2.3 H Glucose 131 H POC Glucose 126 H Lactic Acid Calcium 7.4 L Phosphorus Magnesium Total Bilirubin AST Alkaline Phosphatase Total Creatine Kinase C-Reactive Protein Total Protein Albumin TSH Free T4 Urine WBC (Auto) Crossmatch 12/22/18 12/22/18 12/22/18 06:34 11:39 17:29 WBC RBC Hgb Hct MCV MCH RDW Plt Count Lymph % (Auto) Lymph # Seg Neutrophils % Seg Neuts % (Manual) Lymphocytes % (Manual) Monocytes % (Manual) Nucleated RBC % Seg Neutrophils # Seg Neutrophils # Man Lymphocytes # (Manual) Monocytes # (Manual) PT INR POC ABG pH POC ABG pCO2 POC ABG pO2 Sodium Potassium Chloride Carbon Dioxide BUN Creatinine Glucose POC Glucose 126 H 176 H 180 H Lactic Acid Calcium Phosphorus Magnesium Total Bilirubin AST Alkaline Phosphatase Total Creatine Kinase C-Reactive Protein Total Protein Albumin TSH Free T4 Urine WBC (Auto) Crossmatch 12/22/18 12/23/18 12/23/18 23:19 05:56 08:50 WBC RBC Hgb Hct MCV MCH RDW Plt Count Lymph % (Auto) Lymph # Seg Neutrophils % Seg Neuts % (Manual) Lymphocytes % (Manual) Monocytes % (Manual) Nucleated RBC % Seg Neutrophils # Seg Neutrophils # Man Lymphocytes # (Manual) Monocytes # (Manual) PT INR POC ABG pH POC ABG pCO2 POC ABG pO2 Sodium 134 L Potassium Chloride Carbon Dioxide BUN 80 H Creatinine 2.4 H Glucose 133 H POC Glucose 135 H 174 H Lactic Acid Calcium 7.0 L Phosphorus Magnesium Total Bilirubin AST Alkaline Phosphatase Total Creatine Kinase C-Reactive Protein Total Protein Albumin TSH Free T4 Urine WBC (Auto) Crossmatch 12/23/18 12/23/18 12/24/18 08:50 11:18 00:18 WBC RBC 3.29 L Hgb 8.5 L Hct 24.9 L MCV 76 L MCH 26 L RDW 24.9 H Plt Count 7 L* Lymph % (Auto) Lymph # Seg Neutrophils % Seg Neuts % (Manual) Lymphocytes % (Manual) Monocytes % (Manual) Nucleated RBC % Seg Neutrophils # Seg Neutrophils # Man Lymphocytes # (Manual) Monocytes # (Manual) PT INR POC ABG pH POC ABG pCO2 POC ABG pO2 Sodium Potassium Chloride Carbon Dioxide BUN Creatinine Glucose POC Glucose 164 H 64 L Lactic Acid Calcium Phosphorus Magnesium Total Bilirubin AST Alkaline Phosphatase Total Creatine Kinase C-Reactive Protein Total Protein Albumin TSH Free T4 Urine WBC (Auto) Crossmatch 12/24/18 12/24/18 12/24/18 00:56 06:00 06:00 WBC RBC Hgb 9.7 L Hct 29.1 L MCV 76 L MCH 25 L RDW 24.9 H Plt Count 30 L D Lymph % (Auto) Lymph # Seg Neutrophils % Seg Neuts % (Manual) 86.0 H Lymphocytes % (Manual) 0 L Monocytes % (Manual) Nucleated RBC % Seg Neutrophils # Seg Neutrophils # Man 9.1 H Lymphocytes # (Manual) 0.0 L Monocytes # (Manual) PT INR POC ABG pH POC ABG pCO2 POC ABG pO2 Sodium 132 L Potassium Chloride Carbon Dioxide BUN 79 H Creatinine 2.4 H Glucose 117 H POC Glucose 162 H Lactic Acid Calcium 7.5 L Phosphorus Magnesium Total Bilirubin AST 48 H Alkaline Phosphatase 252 H Total Creatine Kinase C-Reactive Protein Total Protein 5.5 L Albumin 1.6 L TSH Free T4 Urine WBC (Auto) Crossmatch 12/24/18 12/24/18 12/24/18 06:00 12:03 18:45 WBC RBC Hgb Hct MCV MCH RDW Plt Count Lymph % (Auto) Lymph # Seg Neutrophils % Seg Neuts % (Manual) Lymphocytes % (Manual) Monocytes % (Manual) Nucleated RBC % Seg Neutrophils # Seg Neutrophils # Man Lymphocytes # (Manual) Monocytes # (Manual) PT INR POC ABG pH POC ABG pCO2 POC ABG pO2 Sodium Potassium Chloride Carbon Dioxide BUN Creatinine Glucose POC Glucose 153 H 133 H Lactic Acid Calcium Phosphorus 6.60 H Magnesium 2.40 H Total Bilirubin AST Alkaline Phosphatase Total Creatine Kinase C-Reactive Protein Total Protein Albumin TSH Free T4 Urine WBC (Auto) Crossmatch 12/24/18 12/25/18 12/25/18 23:08 06:36 12:05 WBC RBC Hgb Hct MCV MCH RDW Plt Count Lymph % (Auto) Lymph # Seg Neutrophils % Seg Neuts % (Manual) Lymphocytes % (Manual) Monocytes % (Manual) Nucleated RBC % Seg Neutrophils # Seg Neutrophils # Man Lymphocytes # (Manual) Monocytes # (Manual) PT INR POC ABG pH POC ABG pCO2 POC ABG pO2 Sodium Potassium Chloride Carbon Dioxide BUN Creatinine Glucose POC Glucose 125 H 176 H 161 H Lactic Acid Calcium Phosphorus Magnesium Total Bilirubin AST Alkaline Phosphatase Total Creatine Kinase C-Reactive Protein Total Protein Albumin TSH Free T4 Urine WBC (Auto) Crossmatch 12/25/18 12/26/18 12/26/18 18:33 00:07 05:09 WBC RBC Hgb Hct MCV MCH RDW Plt Count Lymph % (Auto) Lymph # Seg Neutrophils % Seg Neuts % (Manual) Lymphocytes % (Manual) Monocytes % (Manual) Nucleated RBC % Seg Neutrophils # Seg Neutrophils # Man Lymphocytes # (Manual) Monocytes # (Manual) PT INR POC ABG pH POC ABG pCO2 POC ABG pO2 Sodium Potassium Chloride Carbon Dioxide BUN Creatinine Glucose POC Glucose 237 H 178 H 171 H Lactic Acid Calcium Phosphorus Magnesium Total Bilirubin AST Alkaline Phosphatase Total Creatine Kinase C-Reactive Protein Total Protein Albumin TSH Free T4 Urine WBC (Auto) Crossmatch Chest x-ray: report reviewed, image reviewed Allied health notes reviewed: nursing
[2018-12-27] MEDS: HumaLOG SUB-Q SCH ×4 (00:04→17:35)
[2018-12-27] MEDS: DUONEB *Not for PRN Use IH SCH ×4 (01:00→19:24)
[2018-12-27] MEDS: NACL 0.9% 1000 ML 1,000 ML IV SCH (05:32)
--- NOTE | 2018-12-27 06:37 | Progress Note ---
Assessment and Plan Acute respiratory failure, intubated Likely from underlying severe sepsis, encephalopathy and pleural effusion [employer]/Pulm consulted Continue nebs, continue antibiotics CXR showed small left pleural effusion. CT chest showed large pericardial effusion, LLL atelectasis v/s infiltrate and left pleural effusion. Unable to wean off, may need trach and PEG Acute encephalopathy: - likely from sepsis alone versus possible meningitis vs seizure. CT head extensive right MCA encephalomalcia, right mastoid opacities. neurology ordered EEG. 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 Severe Sepsis due to UTI , right mastoiditis, aspiration PNA Blood cultures negative, right ear Cx negative Started on Merrem by ID Shock, hypotension did not respond to iv bolus so was started on Levophed, BP improved so off levophed Leukocytosis Hypotension/septic shock, resolved weaned off Levophed, BP now stable Left lower lobe infiltrate, poss pneumonia - Treat with antibiotic for now Large Pericardial effusion. TTE EF>50, no echo evidence of tamponade. Cardiology consulted, following and recommended medical management for now Coffee ground contents from NG aspirate/ Acute GI bleed cont Protonix, Consulted GI- cont to Monitor H/H, no plan for EGD now Transfuse prn MARYANN on CKD 3 baseline Cr around 1.2-1.5mg/dl Likely due to underlying sepsis Monitor BMP, Nephrology following- no indication for HD now /Acute on chronic anemia has h/o anemia requiring previous blood transfusions could be multifactorial (GI bleed and CKD), Total 3 Units PRBC transfused Thrombocytopenia Transfused total 4 Units platelets Plt 7 today, will transfuse more Hypothermia,resolved s/p warming blanket h/o Hypertension - BP now stable Diabetes mellitus type 2, SSI as needed FEN, on TF, not tolerating, Full code status. Very Poor prognosis The high probability of a clinically significant, sudden or life threatening deterioration of the [4] system(s) required my full and direct attention, intervention and personal management. The aggregate critical care time was [33] minutes. This time is in addition to time spent performing reported procedures but includes the following: [x] Data Review and interpretation [x] Patient assessment and monitoring of vital signs [x] Documentation [x] Medication orders and management Subjective Date of service: 12/24/18 Principal diagnosis: Acute respiratory failure Interval history: Same condition Objective - Exam Narrative Exam: Patient intubated and hypotensive in ED - Constitutional Vitals: Vital Signs - 12hr 12/26/18 12/26/18 12/26/18 19:01 19:12 19:13 Temperature Pulse Rate 82 81 Pulse Rate [ 77 Anterior Bilateral Throughout] Pulse Rate [ From Monitor] Respiratory 18 Rate Respiratory 18 Rate [Anterior Bilateral Throughout] Blood Pressure 165/55 165/55 O2 Sat by Pulse 100 100 Oximetry 12/26/18 12/26/18 12/26/18 19:22 19:31 19:43 Temperature 98.1 F Pulse Rate 81 Pulse Rate [ 81 Anterior Bilateral Throughout] Pulse Rate [ From Monitor] Respiratory 18 Rate Respiratory 18 Rate [Anterior Bilateral Throughout] Blood Pressure 160/61 O2 Sat by Pulse 100 Oximetry 12/26/18 12/26/18 12/26/18 20:00 20:01 20:31 Temperature Pulse Rate 85 85 84 Pulse Rate [ Anterior Bilateral Throughout] Pulse Rate [ 94 H From Monitor] Respiratory 18 18 18 Rate Respiratory Rate [Anterior Bilateral Throughout] Blood Pressure 162/54 143/51 O2 Sat by Pulse 100 100 100 Oximetry 12/26/18 12/26/18 12/26/18 21:00 21:31 22:01 Temperature Pulse Rate 94 H 93 H 88 Pulse Rate [ Anterior Bilateral Throughout] Pulse Rate [ From Monitor] Respiratory 18 17 18 Rate Respiratory Rate [Anterior Bilateral Throughout] Blood Pressure 146/47 173/58 168/61 O2 Sat by Pulse 100 100 100 Oximetry 12/26/18 12/26/18 12/26/18 22:31 23:01 23:52 Temperature 97.8 F Pulse Rate 93 H 82 Pulse Rate [ Anterior Bilateral Throughout] Pulse Rate [ From Monitor] Respiratory 16 18 Rate Respiratory Rate [Anterior Bilateral Throughout] Blood Pressure 160/91 168/61 O2 Sat by Pulse 100 100 Oximetry 12/27/18 12/27/18 12/27/18 00:00 00:26 01:00 Temperature Pulse Rate 75 88 Pulse Rate [ 85 Anterior Bilateral Throughout] Pulse Rate [ From Monitor] Respiratory Rate Respiratory 18 Rate [Anterior Bilateral Throughout] Blood Pressure O2 Sat by Pulse 100 Oximetry 12/27/18 12/27/18 12/27/18 01:10 03:57 04:30 Temperature Pulse Rate 75 75 Pulse Rate [ 89 Anterior Bilateral Throughout] Pulse Rate [ From Monitor] Respiratory Rate Respiratory 18 Rate [Anterior Bilateral Throughout] Blood Pressure 152/62 O2 Sat by Pulse 100 Oximetry General appearance: Present: mild distress, well-nourished - EENT Eyes: PERRL, EOM intact ENT: hearing intact, clear oral mucosa Ears: bilateral: normal - Neck Neck: supple, normal ROM - Respiratory Respiratory effort: normal Respiratory: bilateral: CTA - Breasts Breasts: normal - Cardiovascular Heart rate: 88 Rhythm: regular Heart Sounds: Present: S1 & S2. Absent: gallop, rub Extremities: pulses intact, No edema, normal color, Full ROM Extremity abnormal: edema - Gastrointestinal General gastrointestinal: Present: soft, non-tender, non-distended, normal bowel sounds - Genitourinary Female genitourinary: normal - Integumentary Integumentary: clear, warm, dry - Musculoskeletal Musculoskeletal: 1, strength equal bilaterally - Neurologic Neurologic: moves all extremities - Psychiatric Psychiatric: memory intact, appropriate mood/affect, intact judgment & insight - Labs CBC & Chem 7: 12/24/18 06:00 12/24/18 06:00 Labs: Abnormal lab results 12/26/18 12/26/18 12/26/18 Range/Units 11:27 17:52 23:39 POC Glucose 205 H 166 H 122 H (70-105) 12/27/18 Range/Units 06:21 POC Glucose 174 H (70-105)
--- NOTE | 2018-12-27 06:38 | Progress Note ---
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 CT chest showed large pericardial effusion, LLL atelectasis v/s infiltrate and left pleural effusion. Unable to wean off, may need trach and PEG Acute encephalopathy: - likely from sepsis alone versus possible meningitis vs seizure. CT head extensive right MCA encephalomalcia, right mastoid opacities. neurology ordered EEG. 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 Severe Sepsis due to UTI , right mastoiditis, aspiration PNA Blood cultures negative, right ear Cx negative Started on Merrem by ID Shock, hypotension did not respond to iv bolus so was started on Levophed, BP improved so off levophed Leukocytosis Hypotension/septic shock, resolved weaned off Levophed, BP now stable Left lower lobe infiltrate, poss pneumonia - Treat with antibiotic for now Large Pericardial effusion. TTE EF>50, no echo evidence of tamponade. Cardiology consulted, following and recommended medical management for now Coffee ground contents from NG aspirate/ Acute GI bleed cont Protonix, Consulted GI- cont to Monitor H/H, no plan for EGD now Transfuse prn MARYANN on CKD 3 baseline Cr around 1.2-1.5mg/dl Likely due to underlying sepsis Monitor BMP, Nephrology following- no indication for HD now /Acute on chronic anemia has h/o anemia requiring previous blood transfusions could be multifactorial (GI bleed and CKD), Total 3 Units PRBC transfused Thrombocytopenia Transfused total 4 Units platelets Plt 7 today, will transfuse more Hypothermia,resolved s/p warming blanket h/o Hypertension - BP now stable Diabetes mellitus type 2, SSI as needed FEN, on TF, not tolerating, Full code status. Very Poor prognosis The high probability of a clinically significant, sudden or life threatening deterioration of the [4] system(s) required my full and direct attention, intervention and personal management. The aggregate critical care time was [33] minutes. This time is in addition to time spent performing reported procedures but includes the following: [x] Data Review and interpretation [x] Patient assessment and monitoring of vital signs [x] Documentation [x] Medication orders and management Subjective Date of service: 12/25/18 Principal diagnosis: Acute respiratory failure Interval history: Same condition Objective - Exam Narrative Exam: Patient intubated - Constitutional Vitals: Vital Signs - 12hr 12/26/18 12/26/18 12/26/18 19:01 19:12 19:13 Temperature Pulse Rate 82 81 Pulse Rate [ 77 Anterior Bilateral Throughout] Pulse Rate [ From Monitor] Respiratory 18 Rate Respiratory 18 Rate [Anterior Bilateral Throughout] Blood Pressure 165/55 165/55 O2 Sat by Pulse 100 100 Oximetry 12/26/18 12/26/18 12/26/18 19:22 19:31 19:43 Temperature 98.1 F Pulse Rate 81 Pulse Rate [ 81 Anterior Bilateral Throughout] Pulse Rate [ From Monitor] Respiratory 18 Rate Respiratory 18 Rate [Anterior Bilateral Throughout] Blood Pressure 160/61 O2 Sat by Pulse 100 Oximetry 12/26/18 12/26/18 12/26/18 20:00 20:01 20:31 Temperature Pulse Rate 85 85 84 Pulse Rate [ Anterior Bilateral Throughout] Pulse Rate [ 94 H From Monitor] Respiratory 18 18 18 Rate Respiratory Rate [Anterior Bilateral Throughout] Blood Pressure 162/54 143/51 O2 Sat by Pulse 100 100 100 Oximetry 12/26/18 12/26/18 12/26/18 21:00 21:31 22:01 Temperature Pulse Rate 94 H 93 H 88 Pulse Rate [ Anterior Bilateral Throughout] Pulse Rate [ From Monitor] Respiratory 18 17 18 Rate Respiratory Rate [Anterior Bilateral Throughout] Blood Pressure 146/47 173/58 168/61 O2 Sat by Pulse 100 100 100 Oximetry 12/26/18 12/26/18 12/26/18 22:31 23:01 23:52 Temperature 97.8 F Pulse Rate 93 H 82 Pulse Rate [ Anterior Bilateral Throughout] Pulse Rate [ From Monitor] Respiratory 16 18 Rate Respiratory Rate [Anterior Bilateral Throughout] Blood Pressure 160/91 168/61 O2 Sat by Pulse 100 100 Oximetry 12/27/18 12/27/18 12/27/18 00:00 00:26 01:00 Temperature Pulse Rate 75 88 Pulse Rate [ 85 Anterior Bilateral Throughout] Pulse Rate [ From Monitor] Respiratory Rate Respiratory 18 Rate [Anterior Bilateral Throughout] Blood Pressure O2 Sat by Pulse 100 Oximetry 12/27/18 12/27/18 12/27/18 01:10 03:57 04:30 Temperature Pulse Rate 75 75 Pulse Rate [ 89 Anterior Bilateral Throughout] Pulse Rate [ From Monitor] Respiratory Rate Respiratory 18 Rate [Anterior Bilateral Throughout] Blood Pressure 152/62 O2 Sat by Pulse 100 Oximetry General appearance: Present: no acute distress, well-nourished - EENT Eyes: PERRL, EOM intact ENT: hearing intact, clear oral mucosa Ears: bilateral: normal - Neck Neck: supple, normal ROM - Respiratory Respiratory effort: normal Respiratory: bilateral: CTA - Breasts Breasts: normal - Cardiovascular Heart rate: 78 Rhythm: regular Heart Sounds: Present: S1 & S2. Absent: gallop, rub Extremities: no ischemia, pulses intact, No edema, normal color, Full ROM - Gastrointestinal General gastrointestinal: Present: soft, non-tender, non-distended, normal bowel sounds - Genitourinary Female genitourinary: normal - Integumentary Integumentary: clear, warm, dry - Musculoskeletal Musculoskeletal: 1, strength equal bilaterally - Neurologic Neurologic: moves all extremities - Psychiatric Psychiatric: memory intact, appropriate mood/affect, intact judgment & insight - Labs CBC & Chem 7: 12/24/18 06:00 12/24/18 06:00 Labs: Abnormal lab results 12/26/18 12/26/18 12/26/18 Range/Units 11:27 17:52 23:39 POC Glucose 205 H 166 H 122 H (70-105) 12/27/18 Range/Units 06:21 POC Glucose 174 H (70-105)
--- NOTE | 2018-12-27 06:42 | Progress Note ---
Assessment and Plan Acute respiratory failure, intubated Prognosis is dismal; withdrawal of mechanical ventilation and palliative care would be the most appropriate management at this point, especially in light of apnea on PSV (she would require long-term ventilator facility until she dies); reviewed social work case manager notes -> Grand-daughter is primary decision maker .Will contact her for advance directives Acute encephalopathy: - likely from sepsis alone versus possible meningitis vs seizure. CT head extensive right MCA encephalomalcia, right mastoid opacities. neurology ordered EEG. 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 Severe Sepsis due to UTI , right mastoiditis, aspiration PNA Blood cultures negative, right ear Cx negative Started on Merrem by ID Shock, hypotension did not respond to iv bolus so was started on Levophed, BP improved so off levophed Leukocytosis Hypotension/septic shock, resolved weaned off Levophed, BP now stable Left lower lobe infiltrate, poss pneumonia - Treat with antibiotic for now Large Pericardial effusion. TTE EF>50, no echo evidence of tamponade. Cardiology consulted, following and recommended medical management for now Coffee ground contents from NG aspirate/ Acute GI bleed cont Protonix, Consulted GI- cont to Monitor H/H, no plan for EGD now Transfuse prn MARYANN on CKD 3 baseline Cr around 1.2-1.5mg/dl Likely due to underlying sepsis Monitor BMP, Nephrology following- no indication for HD now /Acute on chronic anemia has h/o anemia requiring previous blood transfusions could be multifactorial (GI bleed and CKD), Total 3 Units PRBC transfused Thrombocytopenia Transfused total 4 Units platelets Plt 7 today, will transfuse more Hypothermia,resolved s/p warming blanket h/o Hypertension - BP now stable Diabetes mellitus type 2, SSI as needed FEN, on TF, not tolerating, Full code status. Very Poor prognosis The high probability of a clinically significant, sudden or life threatening deterioration of the [4] system(s) required my full and direct attention, intervention and personal management. The aggregate critical care time was [33] minutes. This time is in addition to time spent performing reported procedures but includes the following: [x] Data Review and interpretation [x] Patient assessment and monitoring of vital signs [x] Documentation [x] Medication orders and management Subjective Date of service: 12/25/18 Principal diagnosis: Acute respiratory failure Interval history: Same condition Objective - Exam Narrative Exam: Patient intubated - Constitutional Vitals: Vital Signs - 12hr 12/26/18 12/26/18 12/26/18 19:01 19:12 19:13 Temperature Pulse Rate 82 81 Pulse Rate [ 77 Anterior Bilateral Throughout] Pulse Rate [ From Monitor] Respiratory 18 Rate Respiratory 18 Rate [Anterior Bilateral Throughout] Blood Pressure 165/55 165/55 O2 Sat by Pulse 100 100 Oximetry 12/26/18 12/26/18 12/26/18 19:22 19:31 19:43 Temperature 98.1 F Pulse Rate 81 Pulse Rate [ 81 Anterior Bilateral Throughout] Pulse Rate [ From Monitor] Respiratory 18 Rate Respiratory 18 Rate [Anterior Bilateral Throughout] Blood Pressure 160/61 O2 Sat by Pulse 100 Oximetry 12/26/18 12/26/18 12/26/18 20:00 20:01 20:31 Temperature Pulse Rate 85 85 84 Pulse Rate [ Anterior Bilateral Throughout] Pulse Rate [ 94 H From Monitor] Respiratory 18 18 18 Rate Respiratory Rate [Anterior Bilateral Throughout] Blood Pressure 162/54 143/51 O2 Sat by Pulse 100 100 100 Oximetry 12/26/18 12/26/18 12/26/18 21:00 21:31 22:01 Temperature Pulse Rate 94 H 93 H 88 Pulse Rate [ Anterior Bilateral Throughout] Pulse Rate [ From Monitor] Respiratory 18 17 18 Rate Respiratory Rate [Anterior Bilateral Throughout] Blood Pressure 146/47 173/58 168/61 O2 Sat by Pulse 100 100 100 Oximetry 12/26/18 12/26/18 12/26/18 22:31 23:01 23:52 Temperature 97.8 F Pulse Rate 93 H 82 Pulse Rate [ Anterior Bilateral Throughout] Pulse Rate [ From Monitor] Respiratory 16 18 Rate Respiratory Rate [Anterior Bilateral Throughout] Blood Pressure 160/91 168/61 O2 Sat by Pulse 100 100 Oximetry 12/27/18 12/27/18 12/27/18 00:00 00:26 01:00 Temperature Pulse Rate 75 88 Pulse Rate [ 85 Anterior Bilateral Throughout] Pulse Rate [ From Monitor] Respiratory Rate Respiratory 18 Rate [Anterior Bilateral Throughout] Blood Pressure O2 Sat by Pulse 100 Oximetry 12/27/18 12/27/18 12/27/18 01:10 03:57 04:30 Temperature Pulse Rate 75 75 Pulse Rate [ 89 Anterior Bilateral Throughout] Pulse Rate [ From Monitor] Respiratory Rate Respiratory 18 Rate [Anterior Bilateral Throughout] Blood Pressure 152/62 O2 Sat by Pulse 100 Oximetry General appearance: Present: mild distress, well-nourished - EENT Eyes: EOM intact, mydriasis ENT: hearing intact, clear oral mucosa Ears: bilateral: normal - Neck Neck: supple, normal ROM - Respiratory Respiratory effort: normal Respiratory: bilateral: CTA - Breasts Breasts: normal - Cardiovascular Heart rate: 88 Rhythm: regular Heart Sounds: Present: S1 & S2. Absent: gallop, rub Extremities: pulses intact, No edema, normal color, Full ROM - Gastrointestinal General gastrointestinal: Present: soft, non-tender, non-distended, normal bowel sounds - Genitourinary Female genitourinary: normal - Integumentary Integumentary: clear, warm, dry - Musculoskeletal Musculoskeletal: 1, strength equal bilaterally - Neurologic Neurologic: moves all extremities - Psychiatric Psychiatric: memory intact, appropriate mood/affect, intact judgment & insight - Labs CBC & Chem 7: 12/24/18 06:00 12/24/18 06:00 Labs: Abnormal lab results 12/26/18 12/26/18 12/26/18 Range/Units 11:27 17:52 23:39 POC Glucose 205 H 166 H 122 H (70-105) 12/27/18 Range/Units 06:21 POC Glucose 174 H (70-105)
--- NOTE | 2018-12-27 07:33 | Progress Note ---
Assessment and Plan - Patient Problems (1) Acute kidney failure with tubular necrosis Current Visit: Yes Status: Acute Plan to address problem: Labs noted and her renal function is stable. Overall prognosis is poor. Will monitor closely. On gentle hydration with just NS @ 50 cc/hr. Avoid nephrotoxins. (2) Acute encephalopathy Current Visit: Yes Status: Deleted Plan to address problem: s/p EEG . Results reviewed. Further management per primary team. Patient remains comatose at this time (3) Acute post-hemorrhagic anemia Current Visit: Yes Status: Acute Plan to address problem: H/H is stable at this time. Continue to monitor, transfuse prn to maintain HgB>7.0 (4) Acute respiratory failure with hypoxia Current Visit: Yes Status: Deleted Plan to address problem: Continues on ventilatory support, and further management per ICU/Pulmonary team. (5) Pericardial effusion without cardiac tamponade Current Visit: Yes Status: Acute Plan to address problem: s/p ECHO with findings not consistent with cardiac tamponade. Will continue to monitor, further recs per cardiology. Subjective Date of service: 12/27/18 Principal diagnosis: Acute respiratory failure Interval history: Remains comatose, off sedation. Labs reviewed. Objective - Vital Signs Vital signs: Vital Signs - 12hr 12/26/18 12/26/18 12/26/18 19:31 19:43 20:00 Temperature 98.1 F Pulse Rate 81 85 Pulse Rate [ Anterior Bilateral Throughout] Pulse Rate [ 94 H From Monitor] Respiratory 18 18 Rate Respiratory Rate [Anterior Bilateral Throughout] Blood Pressure 160/61 O2 Sat by Pulse 100 100 Oximetry 12/26/18 12/26/18 12/26/18 20:01 20:31 21:00 Temperature Pulse Rate 85 84 94 H Pulse Rate [ Anterior Bilateral Throughout] Pulse Rate [ From Monitor] Respiratory 18 18 18 Rate Respiratory Rate [Anterior Bilateral Throughout] Blood Pressure 162/54 143/51 146/47 O2 Sat by Pulse 100 100 100 Oximetry 12/26/18 12/26/18 12/26/18 21:31 22:01 22:31 Temperature Pulse Rate 93 H 88 93 H Pulse Rate [ Anterior Bilateral Throughout] Pulse Rate [ From Monitor] Respiratory 17 18 16 Rate Respiratory Rate [Anterior Bilateral Throughout] Blood Pressure 173/58 168/61 160/91 O2 Sat by Pulse 100 100 100 Oximetry 12/26/18 12/26/18 12/26/18 23:01 23:05 23:52 Temperature 97.8 F Pulse Rate 82 80 Pulse Rate [ Anterior Bilateral Throughout] Pulse Rate [ From Monitor] Respiratory 18 18 Rate Respiratory Rate [Anterior Bilateral Throughout] Blood Pressure 168/61 143/65 O2 Sat by Pulse 100 100 Oximetry 12/27/18 12/27/18 12/27/18 00:00 00:01 00:26 Temperature Pulse Rate 75 81 88 Pulse Rate [ Anterior Bilateral Throughout] Pulse Rate [ From Monitor] Respiratory 18 18 Rate Respiratory Rate [Anterior Bilateral Throughout] Blood Pressure 185/46 O2 Sat by Pulse 100 100 100 Oximetry 12/27/18 12/27/18 12/27/18 01:00 01:10 02:01 Temperature Pulse Rate 73 76 Pulse Rate [ 85 89 Anterior Bilateral Throughout] Pulse Rate [ From Monitor] Respiratory 18 18 Rate Respiratory 18 18 Rate [Anterior Bilateral Throughout] Blood Pressure 176/44 155/50 O2 Sat by Pulse 100 100 Oximetry 12/27/18 12/27/18 12/27/18 03:01 03:57 04:00 Temperature 96 F L Pulse Rate 73 75 73 Pulse Rate [ Anterior Bilateral Throughout] Pulse Rate [ From Monitor] Respiratory 18 18 Rate Respiratory Rate [Anterior Bilateral Throughout] Blood Pressure 164/50 152/62 O2 Sat by Pulse 100 100 Oximetry 12/27/18 12/27/18 12/27/18 04:30 05:00 06:00 Temperature Pulse Rate 75 82 75 Pulse Rate [ Anterior Bilateral Throughout] Pulse Rate [ From Monitor] Respiratory 18 18 Rate Respiratory Rate [Anterior Bilateral Throughout] Blood Pressure 152/62 167/48 128/71 O2 Sat by Pulse 100 100 100 Oximetry 12/27/18 07:01 Temperature Pulse Rate 70 Pulse Rate [ Anterior Bilateral Throughout] Pulse Rate [ From Monitor] Respiratory 18 Rate Respiratory Rate [Anterior Bilateral Throughout] Blood Pressure 157/36 O2 Sat by Pulse 100 Oximetry - General Appearance General appearance: chronically ill, intubated, frail EENT: ATNC Neck: no JVD Respiratory: Present: Decreased Breath Sounds Cardiology: regular, S1S2 Gastrointestinal: normal Integumentary: warm and dry Neurologic: other (remains essentially comatose, unresponsive off all sedation ) Musculoskeletal: other (+edema ) - Lab 12/24/18 06:00 12/24/18 06:00 Most recent lab results Calcium 7.5 mg/dL (8.4-10.2) L 12/24/18 06:00 Phosphorus 6.60 mg/dL (2.5-4.5) H 12/24/18 06:00 Magnesium 2.40 mg/dL (1.7-2.3) H 12/24/18 06:00 - Allied health notes Allied health notes reviewed: nursing Medications & Allergies - Medications Allergies/Adverse Reactions: Allergies Penicillins Allergy (Verified 12/08/18 13:13) Hives Home Medications: Home Medications Medication Instructions Recorded Confirmed Last Taken Type ALBUTEROL Inhaler (OR & NICU) 2 puff IH QID PRN #1 inhalation 12/21/16 12/08/18 Unknown Rx [Proair] Albuterol Sulfate [Albuterol 0.63% 0.63 mg IH TID PRN #90 ml 12/21/16 12/08/18 Unknown Rx NEBS] Amlodipine Besylate [Norvasc] 10 mg PO DAILY #90 tablet 12/21/16 12/08/18 Unknown Rx AtorvaSTATin [Lipitor] 20 mg PO QHS #90 tablet 12/21/16 12/08/18 Unknown Rx Hydralazine HCl [Apresoline TAB] 50 mg PO TID #90 tablet 12/21/16 12/08/18 Unknown Rx Metoprolol [Lopressor TAB] 25 mg PO BID #90 tablet 12/21/16 12/08/18 Unknown Rx Promethazine /Codeine 5 ml PO Q6H PRN #100 ml 12/21/16 12/08/18 Unknown Rx [Phenergan/Codeine 6.25-10 mg/5 ml] Active Medications: Generic Name Dose Route Start Last Admin Trade Name Freq PRN Reason Stop Dose Admin Acetaminophen 650 mg 12/09/18 01:00 12/09/18 10:00 Tylenol NV 650 mg Q4H PRN Administration Pain MILD(1-3)/Fever >100.5/TURNER Albuterol 2.5 mg 12/09/18 00:31 Proventil IH Q4HRT PRN Shortness Of Breath Albuterol/Ipratropium 1 ampul 12/09/18 02:00 12/27/18 01:00 Duoneb *Not For Prn Use* IH 1 ampul Q6HRT KOLE Administration Lipase/Protease/Amylase 1 each 12/09/18 04:[address] 10,500 Unit FEEDTUBE PRN PRN For Clogged Feeding Tube Dextrose 50 ml 12/24/18 00:42 12/24/18 00:30 D50w (25gm) Syringe IV 50 ml PRN PRN Administration Hypoglycemia Hydrophilic Ointment 1 applic 12/14/18 13:00 Vaseline Lip Therapy TP DIRECT PRN Dry tongue Norepinephrine 4 mg in 250 mls @ 7.5 mls/hr 12/18/18 18:00 12/19/18 18:00 Levophed Drip 4 Mg/Ns 250 Ml IV 0 mcg/min TITR KOLE 0 mls/hr Titration Protocol 2 MCG/MIN Sodium Chloride 1,000 mls @ 50 mls/hr 12/23/18 13:00 12/27/18 05:32 Nacl 0.9% 1000 Ml IV 50 mls/hr DIRECT KOLE Administration Insulin Human Lispro 0 unit 12/11/18 12:00 12/27/18 06:47 Humalog SUB-Q 3 unit Q6HR KOLE Administration Protocol Lansoprazole 30 mg 12/12/18 10:00 12/26/18 23:16 Prevacid Solutab FEEDTUBE 30 mg BID KOLE Administration Midodrine 10 mg 12/18/18 19:01 12/26/18 20:10 Proamatine PO 10 mg TID@0800,1200,1600 KOLE Administration Multi-Ingred Cream/Lotion/Oil/Oint 1 applic 12/08/18 13:31 Artificial Tears Ophth Oint OU Q4HR PRN Dry Eye(s) Ondansetron HCl 4 mg 12/09/18 00:31 Zofran IV Q8H PRN Nausea And Vomiting Simple Syrup 15 ml 12/09/18 04:05 Simple Syrup FEEDTUBE PRN PRN Hypoglycemia Simple Syrup 30 ml 12/09/18 04:05 Simple Syrup FEEDTUBE PRN PRN Hypoglycemia Sodium Bicarbonate 325 mg 12/09/18 04:05 Sodium Bicarbonate FEEDTUBE PRN PRN For Clogged Feeding Tube Sodium Chloride 10 ml 12/09/18 10:00 12/26/18 23:16 Sodium Chloride Flush Syringe 10 Ml IV 10 ml BID KOLE Administration Sodium Chloride 10 ml 12/09/18 00:31 12/17/18 10:47 Sodium Chloride Flush Syringe 10 Ml IV 10 ml PRN PRN Administration LINE FLUSH
[2018-12-27] MEDS ORDERED: DUONEB *Not for PRN Use IH ONE (07:57)
[2018-12-27] MEDS: PROAMATINE PO SCH ×3 (09:00→17:34)
[2018-12-27] MEDS: PREVACID SOLUTAB FEEDTUBE SCH ×2 (10:36→21:46)
[2018-12-27] MEDS: SODIUM CHLORIDE FLUSH SYRINGE 10 ML IV SCH ×2 (10:39→21:47)
--- NOTE | 2018-12-27 11:44 | Progress Note ---
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 Etiology UTI +/- right otitis media/mastoiditis +/- ?meningitis +/- severe anemia. - Blood culture 12/08/2018 no growth so far. - Lactate 4 on admission. - unable to do LP due to thrombocytopenia, and has received empiric treatment anyways. 2) UTI: UA wbc 157, LE mod, on cefepime 3) Right otitis media / mastoiditis: Per grand-daughter, she has been c/o right ear pain and drainage last week. Patient was putting Neosporin and perhaps ear stephanie in the patient's ear. On physical exam, patient found to have purulent discharge from the right ear, and stephanie are removed by ED physician. There is probable perforation of the right sided tympanic membrane per ED physician. Got on dexametasone 4) Acute encephalopathy: not better, from sepsis alone versus meningitis versus CVA. CT head extensive right MCA encephalomalcia, right mastoid opacities. Unab;e to do MRI due to pacemaker 5) Acute respiratory failure: CXR showed small left pleural effusion. CT chest showed large pericardial effusion, LLL atelectasis v/s infiltrate and left pleural effusion. 6) ?GI bleed 7) Severe anemia: ? Noted coffee-ground drainage from OG tube. 8) Severe thrombocytopenia: from sepsis 9) Large pericardial effusion: TTE EF>50, no echo evidence of tamponade 10) Penicillin allergy: tolerating cefepime 11) CKD: renally adjusted antibiotics Recommendations: - completed Meropenem on 12/25/2018 - overall extremely poor prognosis, consider hospice - poor prognosis, recommend palliative care/hospice I am signing off Pearl Mariee MD Infectious Diseases Head Of Sales [facility] M [phone] O [phone] Subjective Date of service: 12/27/18 Principal diagnosis: Acute respiratory failure Interval history: Remains intubated CMV unresponsive no fever ROS unable to obtain Objective - Exam Narrative Exam: General appearance: lethargic in NAD on the vent intubated Eyes: + mild icteric sclerae, gustavo edematous conjunctivae; HENT: Atraumatic; oropharynx +ETT +OGT .tongue enlarged and protruded Neck: Trachea midline; supple, no thyromegaly or lymphadenopathy Lungs: gustavo coarse BS CV: rrr Abdomen: Soft, mild tenderness Extremities: No peripheral edema or extremity lymphadenopathy Skin: Normal temperature, turgor and texture; no rash, ulcers or subcutaneous nodules Psych: lethargic. Neuro: lethargic - Constitutional Vitals: Vital Signs Temp Pulse Resp BP Pulse Ox 94.1 F L 76 18 134/60 100 12/27/18 08:00 12/27/18 11:00 12/27/18 11:00 12/27/18 11:00 12/27/18 11:00 Temperature -Last 24 Hours Temperature 94.1 F Temperature 96 F Temperature 97.8 F Temperature 98.1 F Temperature 98.3 F Temperature 96.2 F - Labs CBC & Chem 7: 12/24/18 06:00 12/24/18 06:00 Labs: Abnormal lab results 12/26/18 12/26/18 12/26/18 Range/Units 11:27 17:52 23:39 POC Glucose 205 H 166 H 122 H (70-105) 12/27/18 Range/Units 06:21 POC Glucose 174 H (70-105)
--- NOTE | 2018-12-27 11:50 | Progress Note ---
Assessment and Plan Imp: 1. UTI 2. Sepsis 3. Acute respiratory failure, hypoxia 4. MARYANN 5. Thrombocytopenia 6. Acute encephalopathy 7. Hx of CVA 8. Comatose Rec: 1. Prognosis is dismal; withdrawal of mechanical ventilation and palliative care would be the most appropriate management at this point, especially in light of apnea on PSV (she would require long-term ventilator facility until she dies); reviewed caser notes -> Grand-daughter is primary decision maker as stated by patient's son; I had a long discussion with Opel the Grand-daughter, explained the extremely poor prognosis, and recommended hospice/palliative care -> she wants everything done and would like to proceed with Trach/PEG; consult surgery 2. ABX per ID 3. IVFs per renal 4. TFs, GI PPx 5. SCDs; would try to keep platelets greater than 20K; agree with hematology evaluation 6. Stopped Solumedrol as did not help tongue 7. Labs in AM CCt 31 minutes Subjective Date of service: 12/27/18 Principal diagnosis: Acute respiratory failure Interval history: Hypothermic on warming blanket. 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 Not able to communicate. Comatose. Active Medications Acetaminophen (Tylenol) 650 mg UT Q4H PRN PRN Reason: Pain MILD(1-3)/Fever >100.5/TURNER Last Admin: 12/09/18 10:00 Dose: 650 mg Documented by: Albuterol (Proventil) 2.5 mg IH Q4HRT PRN PRN Reason: Shortness Of Breath Albuterol/Ipratropium (Duoneb *Not For Prn Use*) 1 ampul IH Q6HRT [facility] Last Admin: 12/27/18 08:00 Dose: 1 ampul Documented by: Lipase/Protease/Amylase (Pancreaze Dr 10,500 Unit) 1 each FEEDTUBE PRN PRN PRN Reason: For Clogged Feeding Tube Dextrose (D50w (25gm) Syringe) 50 ml IV PRN PRN PRN Reason: Hypoglycemia Last Admin: 12/24/18 00:30 Dose: 50 ml Documented by: Hydrophilic Ointment (Vaseline Lip Therapy) 1 applic TP DIRECT PRN PRN Reason: Dry tongue Norepinephrine (Levophed Drip 4 Mg/Ns 250 Ml) 4 mg in 250 mls @ 7.5 mls/hr IV TITR [facility]; Protocol Last Titration: 12/19/18 18:00 Dose: 0 mcg/min, 0 mls/hr Documented by: Sodium Chloride (Nacl 0.9% 1000 Ml) 1,000 mls @ 50 mls/hr IV DIRECT [facility] Last Admin: 12/27/18 05:32 Dose: 50 mls/hr Documented by: Insulin Human Lispro (Humalog) 0 unit SUB-Q Q6HR [facility]; Protocol Last Admin: 12/27/18 06:47 Dose: 3 unit Documented by: Lansoprazole (Prevacid Solutab) 30 mg FEEDTUBE BID [facility] Last Admin: 12/27/18 10:36 Dose: 30 mg Documented by: Midodrine (Proamatine) 10 mg PO TID@0800,1200,1600 [facility] Last Admin: 12/27/18 09:00 Dose: 10 mg Documented by: Multi-Ingred Cream/Lotion/Oil/Oint (Artificial Tears Ophth Oint) 1 applic OU Q4HR PRN PRN Reason: Dry Eye(s) Ondansetron HCl (Zofran) 4 mg IV Q8H PRN PRN Reason: Nausea And Vomiting Simple Syrup (Simple Syrup) 15 ml FEEDTUBE PRN PRN PRN Reason: Hypoglycemia Simple Syrup (Simple Syrup) 30 ml FEEDTUBE PRN PRN PRN Reason: Hypoglycemia Sodium Bicarbonate (Sodium Bicarbonate) 325 mg FEEDTUBE PRN PRN PRN Reason: For Clogged Feeding Tube Sodium Chloride (Sodium Chloride Flush Syringe 10 Ml) 10 ml IV BID [facility] Last Admin: 12/27/18 10:39 Dose: 10 ml Documented by: Sodium Chloride (Sodium Chloride Flush Syringe 10 Ml) 10 ml IV PRN PRN PRN Reason: LINE FLUSH Last Admin: 12/17/18 10:47 Dose: 10 ml Documented by: Objective Vital Signs - 12hr 12/26/18 12/27/18 12/27/18 23:52 00:00 00:01 Temperature 97.8 F Pulse Rate 75 81 Pulse Rate [ Anterior Bilateral Throughout] Pulse Rate [ From Monitor] Pulse Rate [ Throughout] Respiratory 18 18 Rate Respiratory Rate [Anterior Bilateral Throughout] Respiratory Rate [ Throughout] Blood Pressure 185/46 O2 Sat by Pulse 100 100 Oximetry 12/27/18 12/27/18 12/27/18 00:26 01:00 01:10 Temperature Pulse Rate 88 73 Pulse Rate [ 85 89 Anterior Bilateral Throughout] Pulse Rate [ From Monitor] Pulse Rate [ Throughout] Respiratory 18 Rate Respiratory 18 18 Rate [Anterior Bilateral Throughout] Respiratory Rate [ Throughout] Blood Pressure 176/44 O2 Sat by Pulse 100 100 Oximetry 12/27/18 12/27/18 12/27/18 02:01 03:01 03:57 Temperature Pulse Rate 76 73 75 Pulse Rate [ Anterior Bilateral Throughout] Pulse Rate [ From Monitor] Pulse Rate [ Throughout] Respiratory 18 18 Rate Respiratory Rate [Anterior Bilateral Throughout] Respiratory Rate [ Throughout] Blood Pressure 155/50 164/50 O2 Sat by Pulse 100 100 Oximetry 12/27/18 12/27/18 12/27/18 04:00 04:30 05:00 Temperature 96 F L Pulse Rate 73 75 82 Pulse Rate [ Anterior Bilateral Throughout] Pulse Rate [ From Monitor] Pulse Rate [ Throughout] Respiratory 18 18 Rate Respiratory Rate [Anterior Bilateral Throughout] Respiratory Rate [ Throughout] Blood Pressure 152/62 152/62 167/48 O2 Sat by Pulse 100 100 100 Oximetry 12/27/18 12/27/18 12/27/18 06:00 07:01 08:00 Temperature 94.1 F L Pulse Rate 75 70 65 Pulse Rate [ Anterior Bilateral Throughout] Pulse Rate [ 69 From Monitor] Pulse Rate [ 65 Throughout] Respiratory 18 18 18 Rate Respiratory Rate [Anterior Bilateral Throughout] Respiratory 18 Rate [ Throughout] Blood Pressure 128/71 157/36 123/43 O2 Sat by Pulse 100 100 100 Oximetry 12/27/18 12/27/18 12/27/18 08:01 08:14 09:00 Temperature Pulse Rate 68 75 Pulse Rate [ Anterior Bilateral Throughout] Pulse Rate [ From Monitor] Pulse Rate [ 65 Throughout] Respiratory 16 17 Rate Respiratory Rate [Anterior Bilateral Throughout] Respiratory 18 Rate [ Throughout] Blood Pressure 111/43 123/43 O2 Sat by Pulse 100 100 Oximetry 12/27/18 12/27/18 12/27/18 10:00 11:00 11:44 Temperature Pulse Rate 67 76 73 Pulse Rate [ Anterior Bilateral Throughout] Pulse Rate [ From Monitor] Pulse Rate [ Throughout] Respiratory 18 18 Rate Respiratory Rate [Anterior Bilateral Throughout] Respiratory Rate [ Throughout] Blood Pressure 143/35 134/60 128/51 O2 Sat by Pulse 100 100 100 Oximetry Constitutional: no acute distress, comatose, other (on vent cmv) Eyes: non-icteric ENT: oropharynx moist, other (ETT in position, large/edematous tongue) Neck: supple Effort: normal Ascultation: Bilateral: other (coarse BS bilaterally) Cardiovascular: regular rate and rhythm, other (pacemaker rhythm) Gastrointestinal: normoactive bowel sounds, non-distended Integumentary: normal Extremities: no cyanosis, no edema, pink and warm Neurologic: pupils equal and round, other (comatose, flaccid extremities, does not track or follow commands, + Cough, Apnea on PSV) Psychiatric: other (unable to assess) CBC and BMP: 12/24/18 06:00 12/24/18 06:00 ABG, PT/INR, D-dimer: ABG POC ABG pH 7.325 (7.35-7.45) L 12/15/18 03:37 POC ABG pCO2 28.6 (35-45) L 12/15/18 03:37 POC ABG pO2 105 (80-105) 12/15/18 03:37 POC ABG HCO3 14.9 12/15/18 03:37 POC ABG Total CO2 16 12/15/18 03:37 POC ABG O2 Sat 98 12/15/18 03:37 PT/INR, D-dimer PT 20.2 Sec. (12.2-14.9) H 12/12/18 08:00 INR 1.61 (0.87-1.13) H 12/12/18 08:00 Abnormal lab findings: Abnormal Labs 12/08/18 12/08/18 12/08/18 12:58 13:40 13:40 WBC RBC Hgb Hct MCV MCH RDW Plt Count Lymph % (Auto) Lymph # Seg Neutrophils % Seg Neuts % (Manual) Lymphocytes % (Manual) Monocytes % (Manual) Nucleated RBC % Seg Neutrophils # Seg Neutrophils # Man Lymphocytes # (Manual) Monocytes # (Manual) PT INR POC ABG pH POC ABG pCO2 POC ABG pO2 Sodium Potassium Chloride Carbon Dioxide BUN Creatinine Glucose POC Glucose 143 H Lactic Acid Calcium Phosphorus Magnesium Total Bilirubin AST Alkaline Phosphatase Total Creatine Kinase C-Reactive Protein Total Protein Albumin TSH Free T4 Urine WBC (Auto) 157.0 H Crossmatch See Detail 12/08/18 12/08/18 12/08/18 13:40 13:40 13:40 WBC RBC 3.06 L Hgb 6.8 L Hct 21.1 L MCV 69 L MCH 22 L RDW 16.2 H Plt Count 56 L Lymph % (Auto) Lymph # Seg Neutrophils % Seg Neuts % (Manual) Lymphocytes % (Manual) 2.0 L Monocytes % (Manual) Nucleated RBC % Seg Neutrophils # Seg Neutrophils # Man Lymphocytes # (Manual) 0.2 L Monocytes # (Manual) PT INR POC ABG pH POC ABG pCO2 POC ABG pO2 Sodium Potassium 3.2 L Chloride Carbon Dioxide 18 L BUN 64 H Creatinine 1.5 H Glucose 145 H POC Glucose Lactic Acid 4.00 H* Calcium 7.7 L Phosphorus Magnesium Total Bilirubin AST Alkaline Phosphatase Total Creatine Kinase 258 H C-Reactive Protein Total Protein 4.6 L Albumin 1.8 L TSH Free T4 Urine WBC (Auto) Crossmatch 12/08/18 12/08/18 12/08/18 14:29 15:21 16:06 WBC RBC Hgb Hct MCV MCH RDW Plt Count Lymph % (Auto) Lymph # Seg Neutrophils % Seg Neuts % (Manual) Lymphocytes % (Manual) Monocytes % (Manual) Nucleated RBC % Seg Neutrophils # Seg Neutrophils # Man Lymphocytes # (Manual) Monocytes # (Manual) PT 20.5 H INR 1.64 H POC ABG pH POC ABG pCO2 34.2 L POC ABG pO2 465 H Sodium Potassium Chloride Carbon Dioxide BUN Creatinine Glucose POC Glucose Lactic Acid 3.00 H* Calcium Phosphorus Magnesium Total Bilirubin AST Alkaline Phosphatase Total Creatine Kinase C-Reactive Protein Total Protein Albumin TSH Free T4 Urine WBC (Auto) Crossmatch 12/09/18 12/09/18 12/09/18 02:31 05:36 05:36 WBC 14.5 H RBC Hgb Hct MCV 75 L MCH 25 L RDW 20.4 H Plt Count 68 L Lymph % (Auto) Lymph # Seg Neutrophils % Seg Neuts % (Manual) 81.0 H Lymphocytes % (Manual) 1.0 L Monocytes % (Manual) Nucleated RBC % Seg Neutrophils # Seg Neutrophils # Man 11.7 H Lymphocytes # (Manual) 0.1 L Monocytes # (Manual) PT INR POC ABG pH POC ABG pCO2 POC ABG pO2 Sodium Potassium Chloride 107.6 H Carbon Dioxide 18 L BUN 75 H Creatinine 1.9 H Glucose 136 H POC Glucose 152 H Lactic Acid Calcium 7.9 L Phosphorus Magnesium Total Bilirubin 1.60 H AST 44 H Alkaline Phosphatase Total Creatine Kinase C-Reactive Protein Total Protein 5.2 L Albumin 2.4 L TSH Free T4 Urine WBC (Auto) Crossmatch 12/09/18 12/09/18 12/09/18 05:43 10:47 13:46 WBC RBC Hgb Hct MCV MCH RDW Plt Count Lymph % (Auto) Lymph # Seg Neutrophils % Seg Neuts % (Manual) Lymphocytes % (Manual) Monocytes % (Manual) Nucleated RBC % Seg Neutrophils # Seg Neutrophils # Man Lymphocytes # (Manual) Monocytes # (Manual) PT INR POC ABG pH 7.308 L POC ABG pCO2 POC ABG pO2 183 H Sodium Potassium Chloride Carbon Dioxide BUN Creatinine Glucose POC Glucose 150 H 162 H Lactic Acid Calcium Phosphorus Magnesium Total Bilirubin AST Alkaline Phosphatase Total Creatine Kinase C-Reactive Protein Total Protein Albumin TSH Free T4 Urine WBC (Auto) Crossmatch 12/09/18 12/09/18 12/09/18 15:54 15:54 16:40 WBC RBC Hgb Hct MCV MCH RDW Plt Count Lymph % (Auto) Lymph # Seg Neutrophils % Seg Neuts % (Manual) Lymphocytes % (Manual) Monocytes % (Manual) Nucleated RBC % Seg Neutrophils # Seg Neutrophils # Man Lymphocytes # (Manual) Monocytes # (Manual) PT INR POC ABG pH POC ABG pCO2 POC ABG pO2 Sodium Potassium Chloride Carbon Dioxide BUN Creatinine Glucose POC Glucose 197 H Lactic Acid Calcium Phosphorus Magnesium Total Bilirubin AST Alkaline Phosphatase Total Creatine Kinase C-Reactive Protein Total Protein Albumin TSH 0.268 L Free T4 0.58 L Urine WBC (Auto) Crossmatch 12/09/18 12/09/18 12/09/18 18:18 18:18 21:51 WBC RBC Hgb Hct MCV MCH RDW Plt Count Lymph % (Auto) Lymph # Seg Neutrophils % Seg Neuts % (Manual) Lymphocytes % (Manual) Monocytes % (Manual) Nucleated RBC % Seg Neutrophils # Seg Neutrophils # Man Lymphocytes # (Manual) Monocytes # (Manual) PT INR POC ABG pH POC ABG pCO2 POC ABG pO2 Sodium Potassium Chloride 108.2 H Carbon Dioxide 16 L BUN 89 H Creatinine 2.3 H Glucose 180 H POC Glucose 198 H Lactic Acid Calcium 7.9 L Phosphorus Magnesium Total Bilirubin AST Alkaline Phosphatase Total Creatine Kinase C-Reactive Protein 19.60 H Total Protein Albumin TSH Free T4 Urine WBC (Auto) Crossmatch 12/10/18 12/10/18 12/10/18 01:59 04:14 04:38 WBC 11.5 H RBC Hgb Hct MCV 75 L MCH 25 L RDW 21.1 H Plt Count 81 L Lymph % (Auto) 5.6 L Lymph # 0.6 L Seg Neutrophils % 89.8 H Seg Neuts % (Manual) Lymphocytes % (Manual) Monocytes % (Manual) Nucleated RBC % Seg Neutrophils # 10.3 H Seg Neutrophils # Man Lymphocytes # (Manual) Monocytes # (Manual) PT INR POC ABG pH 7.273 L POC ABG pCO2 32.1 L POC ABG pO2 161 H Sodium Potassium Chloride Carbon Dioxide BUN Creatinine Glucose POC Glucose 219 H Lactic Acid Calcium Phosphorus Magnesium Total Bilirubin AST Alkaline Phosphatase Total Creatine Kinase C-Reactive Protein Total Protein Albumin TSH Free T4 Urine WBC (Auto) Crossmatch 12/10/18 12/10/18 12/10/18 04:38 05:07 07:26 WBC RBC Hgb Hct MCV MCH RDW Plt Count Lymph % (Auto) Lymph # Seg Neutrophils % Seg Neuts % (Manual) Lymphocytes % (Manual) Monocytes % (Manual) Nucleated RBC % Seg Neutrophils # Seg Neutrophils # Man Lymphocytes # (Manual) Monocytes # (Manual) PT INR POC ABG pH POC ABG pCO2 POC ABG pO2 Sodium Potassium Chloride 112.5 H Carbon Dioxide 14 L BUN 94 H Creatinine 2.4 H Glucose 207 H POC Glucose 221 H 212 H Lactic Acid Calcium 7.7 L Phosphorus Magnesium Total Bilirubin AST Alkaline Phosphatase Total Creatine Kinase C-Reactive Protein Total Protein Albumin TSH Free T4 Urine WBC (Auto) Crossmatch 12/10/18 12/10/18 12/10/18 10:40 11:15 14:21 WBC RBC Hgb Hct MCV MCH RDW Plt Count Lymph % (Auto) Lymph # Seg Neutrophils % Seg Neuts % (Manual) Lymphocytes % (Manual) Monocytes % (Manual) Nucleated RBC % Seg Neutrophils # Seg Neutrophils # Man Lymphocytes # (Manual) Monocytes # (Manual) PT 21.4 H INR 1.73 H POC ABG pH 7.214 L POC ABG pCO2 32.8 L POC ABG pO2 Sodium Potassium Chloride Carbon Dioxide BUN Creatinine Glucose POC Glucose 227 H Lactic Acid Calcium Phosphorus Magnesium Total Bilirubin AST Alkaline Phosphatase Total Creatine Kinase C-Reactive Protein Total Protein Albumin TSH Free T4 Urine WBC (Auto) Crossmatch 12/10/18 12/10/18 12/11/18 15:47 22:38 03:36 WBC RBC Hgb Hct MCV MCH RDW Plt Count Lymph % (Auto) Lymph # Seg Neutrophils % Seg Neuts % (Manual) Lymphocytes % (Manual) Monocytes % (Manual) Nucleated RBC % Seg Neutrophils # Seg Neutrophils # Man Lymphocytes # (Manual) Monocytes # (Manual) PT INR POC ABG pH POC ABG pCO2 26.2 L POC ABG pO2 138 H Sodium Potassium Chloride Carbon Dioxide BUN Creatinine Glucose POC Glucose 202 H 259 H Lactic Acid Calcium Phosphorus Magnesium Total Bilirubin AST Alkaline Phosphatase Total Creatine Kinase C-Reactive Protein Total Protein Albumin TSH Free T4 Urine WBC (Auto) Crossmatch 12/11/18 12/11/18 12/11/18 04:12 05:00 06:19 WBC RBC Hgb Hct MCV MCH RDW Plt Count Lymph % (Auto) Lymph # Seg Neutrophils % Seg Neuts % (Manual) Lymphocytes % (Manual) Monocytes % (Manual) Nucleated RBC % Seg Neutrophils # Seg Neutrophils # Man Lymphocytes # (Manual) Monocytes # (Manual) PT 19.5 H INR 1.54 H POC ABG pH POC ABG pCO2 24.6 L POC ABG pO2 119 H Sodium Potassium Chloride Carbon Dioxide BUN Creatinine Glucose POC Glucose 174 H Lactic Acid Calcium Phosphorus Magnesium Total Bilirubin AST Alkaline Phosphatase Total Creatine Kinase C-Reactive Protein Total Protein Albumin TSH Free T4 Urine WBC (Auto) Crossmatch 12/11/18 12/11/18 12/11/18 11:10 11:10 18:10 WBC 14.3 H RBC Hgb Hct MCV 73 L MCH 24 L RDW 21.5 H Plt Count Lymph % (Auto) Lymph # Seg Neutrophils % Seg Neuts % (Manual) Lymphocytes % (Manual) Monocytes % (Manual) Nucleated RBC % Seg Neutrophils # Seg Neutrophils # Man Lymphocytes # (Manual) Monocytes # (Manual) PT INR POC ABG pH POC ABG pCO2 POC ABG pO2 Sodium Potassium Chloride 110.5 H Carbon Dioxide 15 L BUN 101 H Creatinine 2.4 H Glucose 119 H POC Glucose 147 H Lactic Acid Calcium 7.7 L Phosphorus Magnesium Total Bilirubin AST Alkaline Phosphatase Total Creatine Kinase C-Reactive Protein Total Protein Albumin TSH Free T4 Urine WBC (Auto) Crossmatch 12/11/18 12/12/18 12/12/18 23:25 05:37 06:03 WBC RBC Hgb Hct MCV MCH RDW Plt Count Lymph % (Auto) Lymph # Seg Neutrophils % Seg Neuts % (Manual) Lymphocytes % (Manual) Monocytes % (Manual) Nucleated RBC % Seg Neutrophils # Seg Neutrophils # Man Lymphocytes # (Manual) Monocytes # (Manual) PT INR POC ABG pH 7.346 L POC ABG pCO2 28.3 L POC ABG pO2 120 H Sodium Potassium Chloride Carbon Dioxide BUN Creatinine Glucose POC Glucose 143 H 154 H Lactic Acid Calcium Phosphorus Magnesium Total Bilirubin AST Alkaline Phosphatase Total Creatine Kinase C-Reactive Protein Total Protein Albumin TSH Free T4 Urine WBC (Auto) Crossmatch 12/12/18 12/12/18 12/12/18 08:00 08:00 08:00 WBC 16.2 H RBC Hgb Hct MCV 74 L MCH 25 L RDW 21.9 H Plt Count 21 L Lymph % (Auto) Lymph # Seg Neutrophils % Seg Neuts % (Manual) Lymphocytes % (Manual) Monocytes % (Manual) Nucleated RBC % Seg Neutrophils # Seg Neutrophils # Man Lymphocytes # (Manual) Monocytes # (Manual) PT 20.2 H INR 1.61 H POC ABG pH POC ABG pCO2 POC ABG pO2 Sodium Potassium Chloride 107.4 H Carbon Dioxide 16 L BUN 101 H Creatinine 2.3 H Glucose 169 H POC Glucose Lactic Acid Calcium 8.2 L Phosphorus Magnesium Total Bilirubin AST Alkaline Phosphatase Total Creatine Kinase C-Reactive Protein Total Protein Albumin TSH Free T4 Urine WBC (Auto) Crossmatch 12/12/18 12/12/18 12/13/18 12:59 18:01 04:28 WBC 18.6 H RBC Hgb Hct MCV 74 L MCH 24 L RDW 21.8 H Plt Count 34 L Lymph % (Auto) Lymph # Seg Neutrophils % Seg Neuts % (Manual) 97.0 H Lymphocytes % (Manual) 2.0 L Monocytes % (Manual) Nucleated RBC % 1.0 H Seg Neutrophils # Seg Neutrophils # Man 18.0 H Lymphocytes # (Manual) 0.4 L Monocytes # (Manual) PT INR POC ABG pH POC ABG pCO2 POC ABG pO2 Sodium Potassium Chloride Carbon Dioxide BUN Creatinine Glucose POC Glucose 158 H 123 H Lactic Acid Calcium Phosphorus Magnesium Total Bilirubin AST Alkaline Phosphatase Total Creatine Kinase C-Reactive Protein Total Protein Albumin TSH Free T4 Urine WBC (Auto) Crossmatch 12/13/18 12/13/18 12/13/18 04:28 04:45 19:17 WBC RBC Hgb Hct MCV MCH RDW Plt Count Lymph % (Auto) Lymph # Seg Neutrophils % Seg Neuts % (Manual) Lymphocytes % (Manual) Monocytes % (Manual) Nucleated RBC % Seg Neutrophils # Seg Neutrophils # Man Lymphocytes # (Manual) Monocytes # (Manual) PT INR POC ABG pH 7.327 L POC ABG pCO2 31.1 L POC ABG pO2 136 H Sodium Potassium Chloride 112.0 H Carbon Dioxide 17 L BUN 97 H Creatinine 2.2 H Glucose POC Glucose 106 H Lactic Acid Calcium 8.1 L Phosphorus Magnesium Total Bilirubin AST Alkaline Phosphatase Total Creatine Kinase C-Reactive Protein Total Protein Albumin TSH Free T4 Urine WBC (Auto) Crossmatch 12/13/18 12/14/18 12/14/18 23:24 03:35 03:35 WBC 22.0 H RBC Hgb Hct MCV 75 L MCH 24 L RDW 22.2 H Plt Count 44 L Lymph % (Auto) Lymph # Seg Neutrophils % Seg Neuts % (Manual) 96.0 H Lymphocytes % (Manual) 3.0 L Monocytes % (Manual) Nucleated RBC % Seg Neutrophils # Seg Neutrophils # Man 21.1 H Lymphocytes # (Manual) 0.7 L Monocytes # (Manual) PT INR POC ABG pH POC ABG pCO2 POC ABG pO2 Sodium 136 L Potassium Chloride 107.2 H Carbon Dioxide 15 L BUN 87 H Creatinine 1.7 H Glucose 156 H POC Glucose 108 H Lactic Acid Calcium 7.7 L Phosphorus Magnesium Total Bilirubin AST Alkaline Phosphatase Total Creatine Kinase C-Reactive Protein Total Protein Albumin TSH Free T4 Urine WBC (Auto) Crossmatch 12/14/18 12/14/18 12/14/18 04:58 05:37 12:10 WBC RBC Hgb Hct MCV MCH RDW Plt Count Lymph % (Auto) Lymph # Seg Neutrophils % Seg Neuts % (Manual) Lymphocytes % (Manual) Monocytes % (Manual) Nucleated RBC % Seg Neutrophils # Seg Neutrophils # Man Lymphocytes # (Manual) Monocytes # (Manual) PT INR POC ABG pH 7.301 L POC ABG pCO2 32.6 L POC ABG pO2 138 H Sodium Potassium Chloride Carbon Dioxide BUN Creatinine Glucose POC Glucose 178 H 208 H Lactic Acid Calcium Phosphorus Magnesium Total Bilirubin AST Alkaline Phosphatase Total Creatine Kinase C-Reactive Protein Total Protein Albumin TSH Free T4 Urine WBC (Auto) Crossmatch 12/14/18 12/14/18 12/15/18 17:44 23:16 03:37 WBC RBC Hgb Hct MCV MCH RDW Plt Count Lymph % (Auto) Lymph # Seg Neutrophils % Seg Neuts % (Manual) Lymphocytes % (Manual) Monocytes % (Manual) Nucleated RBC % Seg Neutrophils # Seg Neutrophils # Man Lymphocytes # (Manual) Monocytes # (Manual) PT INR POC ABG pH 7.325 L POC ABG pCO2 28.6 L POC ABG pO2 Sodium Potassium Chloride Carbon Dioxide BUN Creatinine Glucose POC Glucose 172 H 123 H Lactic Acid Calcium Phosphorus Magnesium Total Bilirubin AST Alkaline Phosphatase Total Creatine Kinase C-Reactive Protein Total Protein Albumin TSH Free T4 Urine WBC (Auto) Crossmatch 12/15/18 12/15/18 12/15/18 05:30 05:30 05:43 WBC 20.1 H RBC Hgb 9.5 L Hct 29.2 L MCV 74 L MCH 24 L RDW 22.7 H Plt Count 48 L Lymph % (Auto) Lymph # Seg Neutrophils % Seg Neuts % (Manual) 96.0 H Lymphocytes % (Manual) 1.0 L Monocytes % (Manual) Nucleated RBC % Seg Neutrophils # Seg Neutrophils # Man 19.3 H Lymphocytes # (Manual) 0.2 L Monocytes # (Manual) PT INR POC ABG pH POC ABG pCO2 POC ABG pO2 Sodium Potassium Chloride 110.8 H Carbon Dioxide 17 L BUN 83 H Creatinine 1.6 H Glucose 150 H POC Glucose 151 H Lactic Acid Calcium 7.7 L Phosphorus Magnesium Total Bilirubin AST Alkaline Phosphatase Total Creatine Kinase C-Reactive Protein Total Protein Albumin TSH Free T4 Urine WBC (Auto) Crossmatch 12/15/18 12/15/18 12/16/18 12:56 18:21 00:10 WBC RBC Hgb Hct MCV MCH RDW Plt Count Lymph % (Auto) Lymph # Seg Neutrophils % Seg Neuts % (Manual) Lymphocytes % (Manual) Monocytes % (Manual) Nucleated RBC % Seg Neutrophils # Seg Neutrophils # Man Lymphocytes # (Manual) Monocytes # (Manual) PT INR POC ABG pH POC ABG pCO2 POC ABG pO2 Sodium Potassium Chloride Carbon Dioxide BUN Creatinine Glucose POC Glucose 190 H 143 H 174 H Lactic Acid Calcium Phosphorus Magnesium Total Bilirubin AST Alkaline Phosphatase Total Creatine Kinase C-Reactive Protein Total Protein Albumin TSH Free T4 Urine WBC (Auto) Crossmatch 12/16/18 12/16/18 12/16/18 05:24 05:30 05:30 WBC 17.1 H RBC Hgb 9.1 L Hct 28.8 L MCV 76 L MCH 24 L RDW 23.5 H Plt Count 37 L Lymph % (Auto) Lymph # Seg Neutrophils % Seg Neuts % (Manual) Lymphocytes % (Manual) 9.0 L Monocytes % (Manual) 9.0 H Nucleated RBC % Seg Neutrophils # Seg Neutrophils # Man 9.6 H Lymphocytes # (Manual) Monocytes # (Manual) 1.5 H PT INR POC ABG pH POC ABG pCO2 POC ABG pO2 Sodium Potassium Chloride 110.8 H Carbon Dioxide 15 L BUN 81 H Creatinine 1.6 H Glucose 161 H POC Glucose 154 H Lactic Acid Calcium 7.6 L Phosphorus Magnesium Total Bilirubin AST Alkaline Phosphatase Total Creatine Kinase C-Reactive Protein Total Protein Albumin TSH Free T4 Urine WBC (Auto) Crossmatch 12/16/18 12/16/18 12/16/18 12:31 17:42 21:56 WBC RBC Hgb Hct MCV MCH RDW Plt Count Lymph % (Auto) Lymph # Seg Neutrophils % Seg Neuts % (Manual) Lymphocytes % (Manual) Monocytes % (Manual) Nucleated RBC % Seg Neutrophils # Seg Neutrophils # Man Lymphocytes # (Manual) Monocytes # (Manual) PT INR POC ABG pH POC ABG pCO2 POC ABG pO2 Sodium Potassium Chloride Carbon Dioxide BUN Creatinine Glucose POC Glucose 172 H 173 H 118 H Lactic Acid Calcium Phosphorus Magnesium Total Bilirubin AST Alkaline Phosphatase Total Creatine Kinase C-Reactive Protein Total Protein Albumin TSH Free T4 Urine WBC (Auto) Crossmatch 12/16/18 12/17/18 12/17/18 23:38 04:24 04:24 WBC 19.2 H RBC Hgb 9.5 L Hct 29.7 L MCV 76 L MCH 24 L RDW 24.4 H Plt Count 26 L Lymph % (Auto) Lymph # Seg Neutrophils % Seg Neuts % (Manual) Lymphocytes % (Manual) 6.0 L Monocytes % (Manual) Nucleated RBC % Seg Neutrophils # Seg Neutrophils # Man 13.1 H Lymphocytes # (Manual) Monocytes # (Manual) PT INR POC ABG pH POC ABG pCO2 POC ABG pO2 Sodium 134 L Potassium Chloride 110.0 H Carbon Dioxide 14 L BUN 83 H Creatinine 1.6 H Glucose POC Glucose 109 H Lactic Acid Calcium 7.8 L Phosphorus Magnesium Total Bilirubin AST Alkaline Phosphatase Total Creatine Kinase C-Reactive Protein Total Protein Albumin TSH Free T4 Urine WBC (Auto) Crossmatch 12/17/18 12/17/18 12/18/18 06:42 17:49 00:40 WBC RBC Hgb Hct MCV MCH RDW Plt Count Lymph % (Auto) Lymph # Seg Neutrophils % Seg Neuts % (Manual) Lymphocytes % (Manual) Monocytes % (Manual) Nucleated RBC % Seg Neutrophils # Seg Neutrophils # Man Lymphocytes # (Manual) Monocytes # (Manual) PT INR POC ABG pH POC ABG pCO2 POC ABG pO2 Sodium Potassium Chloride 113.1 H Carbon Dioxide 13 L BUN 82 H Creatinine 1.6 H Glucose POC Glucose 66 L 109 H Lactic Acid Calcium 8.0 L Phosphorus Magnesium Total Bilirubin AST Alkaline Phosphatase Total Creatine Kinase C-Reactive Protein Total Protein Albumin TSH Free T4 Urine WBC (Auto) Crossmatch 12/18/18 12/18/18 12/18/18 04:08 04:08 12:45 WBC 26.5 H RBC 3.63 L Hgb 8.7 L Hct 26.8 L MCV 74 L MCH 24 L RDW 23.3 H Plt Count 24 L Lymph % (Auto) Lymph # Seg Neutrophils % Seg Neuts % (Manual) Lymphocytes % (Manual) Monocytes % (Manual) Nucleated RBC % Seg Neutrophils # Seg Neutrophils # Man Lymphocytes # (Manual) Monocytes # (Manual) PT INR POC ABG pH POC ABG pCO2 POC ABG pO2 Sodium Potassium Chloride 114.3 H Carbon Dioxide 16 L BUN 82 H Creatinine 1.7 H Glucose POC Glucose 117 H Lactic Acid Calcium 7.8 L Phosphorus 5.10 H Magnesium Total Bilirubin AST Alkaline Phosphatase Total Creatine Kinase C-Reactive Protein Total Protein Albumin TSH Free T4 Urine WBC (Auto) Crossmatch 12/18/18 12/18/18 12/19/18 17:42 23:39 04:22 WBC 20.4 H RBC 3.01 L Hgb 7.2 L Hct 22.6 L MCV 75 L MCH 24 L RDW 24.5 H Plt Count 52 L D Lymph % (Auto) Lymph # Seg Neutrophils % Seg Neuts % (Manual) Lymphocytes % (Manual) Monocytes % (Manual) Nucleated RBC % Seg Neutrophils # Seg Neutrophils # Man Lymphocytes # (Manual) Monocytes # (Manual) PT INR POC ABG pH POC ABG pCO2 POC ABG pO2 Sodium Potassium Chloride Carbon Dioxide BUN Creatinine Glucose POC Glucose 121 H 184 H Lactic Acid Calcium Phosphorus Magnesium Total Bilirubin AST Alkaline Phosphatase Total Creatine Kinase C-Reactive Protein Total Protein Albumin TSH Free T4 Urine WBC (Auto) Crossmatch 12/19/18 12/19/18 12/19/18 04:22 12:43 18:12 WBC RBC Hgb Hct MCV MCH RDW Plt Count Lymph % (Auto) Lymph # Seg Neutrophils % Seg Neuts % (Manual) Lymphocytes % (Manual) Monocytes % (Manual) Nucleated RBC % Seg Neutrophils # Seg Neutrophils # Man Lymphocytes # (Manual) Monocytes # (Manual) PT INR POC ABG pH POC ABG pCO2 POC ABG pO2 Sodium Potassium Chloride 112.9 H Carbon Dioxide 15 L BUN 76 H Creatinine 1.8 H Glucose 107 H POC Glucose 141 H 227 H Lactic Acid Calcium 7.4 L Phosphorus Magnesium Total Bilirubin AST Alkaline Phosphatase Total Creatine Kinase C-Reactive Protein Total Protein Albumin TSH Free T4 Urine WBC (Auto) Crossmatch 12/19/18 12/19/18 12/20/18 23:55 Unknown 03:07 WBC 15.7 H RBC 2.92 L Hgb 7.2 L 7.1 L Hct 22.2 L 21.6 L MCV 74 L MCH 24 L RDW 24.3 H Plt Count 23 L Lymph % (Auto) Lymph # Seg Neutrophils % Seg Neuts % (Manual) Lymphocytes % (Manual) Monocytes % (Manual) Nucleated RBC % Seg Neutrophils # Seg Neutrophils # Man Lymphocytes # (Manual) Monocytes # (Manual) PT INR POC ABG pH POC ABG pCO2 POC ABG pO2 Sodium Potassium Chloride Carbon Dioxide BUN Creatinine Glucose POC Glucose 174 H Lactic Acid Calcium Phosphorus Magnesium Total Bilirubin AST Alkaline Phosphatase Total Creatine Kinase C-Reactive Protein Total Protein Albumin TSH Free T4 Urine WBC (Auto) Crossmatch 12/20/18 12/20/18 12/20/18 03:07 05:20 11:00 WBC RBC Hgb Hct MCV MCH RDW Plt Count Lymph % (Auto) Lymph # Seg Neutrophils % Seg Neuts % (Manual) Lymphocytes % (Manual) Monocytes % (Manual) Nucleated RBC % Seg Neutrophils # Seg Neutrophils # Man Lymphocytes # (Manual) Monocytes # (Manual) PT INR POC ABG pH POC ABG pCO2 POC ABG pO2 Sodium 136 L Potassium Chloride Carbon Dioxide 20 L BUN 79 H Creatinine 2.1 H Glucose 141 H POC Glucose 210 H Lactic Acid Calcium 7.5 L Phosphorus Magnesium Total Bilirubin AST Alkaline Phosphatase Total Creatine Kinase C-Reactive Protein Total Protein Albumin TSH Free T4 Urine WBC (Auto) Crossmatch See Detail 12/20/18 12/20/18 12/21/18 11:40 17:51 00:33 WBC RBC Hgb Hct MCV MCH RDW Plt Count Lymph % (Auto) Lymph # Seg Neutrophils % Seg Neuts % (Manual) Lymphocytes % (Manual) Monocytes % (Manual) Nucleated RBC % Seg Neutrophils # Seg Neutrophils # Man Lymphocytes # (Manual) Monocytes # (Manual) PT INR POC ABG pH POC ABG pCO2 POC ABG pO2 Sodium Potassium Chloride Carbon Dioxide BUN Creatinine Glucose POC Glucose 183 H 150 H 119 H Lactic Acid Calcium Phosphorus Magnesium Total Bilirubin AST Alkaline Phosphatase Total Creatine Kinase C-Reactive Protein Total Protein Albumin TSH Free T4 Urine WBC (Auto) Crossmatch 12/21/18 12/21/18 12/21/18 05:05 07:19 07:19 WBC 11.9 H RBC 2.83 L Hgb 6.9 L Hct 20.7 L MCV 73 L MCH 24 L RDW 23.9 H Plt Count 11 L* Lymph % (Auto) Lymph # Seg Neutrophils % Seg Neuts % (Manual) Lymphocytes % (Manual) Monocytes % (Manual) Nucleated RBC % Seg Neutrophils # Seg Neutrophils # Man Lymphocytes # (Manual) Monocytes # (Manual) PT INR POC ABG pH POC ABG pCO2 POC ABG pO2 Sodium 135 L Potassium Chloride Carbon Dioxide 21 L BUN 78 H Creatinine 2.3 H Glucose 143 H POC Glucose 165 H Lactic Acid Calcium 7.3 L Phosphorus Magnesium Total Bilirubin AST Alkaline Phosphatase Total Creatine Kinase C-Reactive Protein Total Protein Albumin TSH Free T4 Urine WBC (Auto) Crossmatch 12/21/18 12/21/18 12/21/18 11:55 17:39 18:00 WBC RBC Hgb 7.9 L Hct 23.8 L MCV MCH RDW Plt Count Lymph % (Auto) Lymph # Seg Neutrophils % Seg Neuts % (Manual) Lymphocytes % (Manual) Monocytes % (Manual) Nucleated RBC % Seg Neutrophils # Seg Neutrophils # Man Lymphocytes # (Manual) Monocytes # (Manual) PT INR POC ABG pH POC ABG pCO2 POC ABG pO2 Sodium Potassium Chloride Carbon Dioxide BUN Creatinine Glucose POC Glucose 125 H 108 H Lactic Acid Calcium Phosphorus Magnesium Total Bilirubin AST Alkaline Phosphatase Total Creatine Kinase C-Reactive Protein Total Protein Albumin TSH Free T4 Urine WBC (Auto) Crossmatch 12/21/18 12/22/18 12/22/18 23:55 05:35 05:35 WBC 11.8 H RBC Hgb 9.4 L Hct 28.3 L MCV 76 L MCH 25 L RDW 24.5 H Plt Count 26 L D Lymph % (Auto) Lymph # Seg Neutrophils % Seg Neuts % (Manual) Lymphocytes % (Manual) Monocytes % (Manual) Nucleated RBC % Seg Neutrophils # Seg Neutrophils # Man Lymphocytes # (Manual) Monocytes # (Manual) PT INR POC ABG pH POC ABG pCO2 POC ABG pO2 Sodium 132 L Potassium Chloride Carbon Dioxide 21 L BUN 79 H Creatinine 2.3 H Glucose 131 H POC Glucose 126 H Lactic Acid Calcium 7.4 L Phosphorus Magnesium Total Bilirubin AST Alkaline Phosphatase Total Creatine Kinase C-Reactive Protein Total Protein Albumin TSH Free T4 Urine WBC (Auto) Crossmatch 12/22/18 12/22/18 12/22/18 06:34 11:39 17:29 WBC RBC Hgb Hct MCV MCH RDW Plt Count Lymph % (Auto) Lymph # Seg Neutrophils % Seg Neuts % (Manual) Lymphocytes % (Manual) Monocytes % (Manual) Nucleated RBC % Seg Neutrophils # Seg Neutrophils # Man Lymphocytes # (Manual) Monocytes # (Manual) PT INR POC ABG pH POC ABG pCO2 POC ABG pO2 Sodium Potassium Chloride Carbon Dioxide BUN Creatinine Glucose POC Glucose 126 H 176 H 180 H Lactic Acid Calcium Phosphorus Magnesium Total Bilirubin AST Alkaline Phosphatase Total Creatine Kinase C-Reactive Protein Total Protein Albumin TSH Free T4 Urine WBC (Auto) Crossmatch 12/22/18 12/23/18 12/23/18 23:19 05:56 08:50 WBC RBC Hgb Hct MCV MCH RDW Plt Count Lymph % (Auto) Lymph # Seg Neutrophils % Seg Neuts % (Manual) Lymphocytes % (Manual) Monocytes % (Manual) Nucleated RBC % Seg Neutrophils # Seg Neutrophils # Man Lymphocytes # (Manual) Monocytes # (Manual) PT INR POC ABG pH POC ABG pCO2 POC ABG pO2 Sodium 134 L Potassium Chloride Carbon Dioxide BUN 80 H Creatinine 2.4 H Glucose 133 H POC Glucose 135 H 174 H Lactic Acid Calcium 7.0 L Phosphorus Magnesium Total Bilirubin AST Alkaline Phosphatase Total Creatine Kinase C-Reactive Protein Total Protein Albumin TSH Free T4 Urine WBC (Auto) Crossmatch 12/23/18 12/23/18 12/24/18 08:50 11:18 00:18 WBC RBC 3.29 L Hgb 8.5 L Hct 24.9 L MCV 76 L MCH 26 L RDW 24.9 H Plt Count 7 L* Lymph % (Auto) Lymph # Seg Neutrophils % Seg Neuts % (Manual) Lymphocytes % (Manual) Monocytes % (Manual) Nucleated RBC % Seg Neutrophils # Seg Neutrophils # Man Lymphocytes # (Manual) Monocytes # (Manual) PT INR POC ABG pH POC ABG pCO2 POC ABG pO2 Sodium Potassium Chloride Carbon Dioxide BUN Creatinine Glucose POC Glucose 164 H 64 L Lactic Acid Calcium Phosphorus Magnesium Total Bilirubin AST Alkaline Phosphatase Total Creatine Kinase C-Reactive Protein Total Protein Albumin TSH Free T4 Urine WBC (Auto) Crossmatch 12/24/18 12/24/18 12/24/18 00:56 06:00 06:00 WBC RBC Hgb 9.7 L Hct 29.1 L MCV 76 L MCH 25 L RDW 24.9 H Plt Count 30 L D Lymph % (Auto) Lymph # Seg Neutrophils % Seg Neuts % (Manual) 86.0 H Lymphocytes % (Manual) 0 L Monocytes % (Manual) Nucleated RBC % Seg Neutrophils # Seg Neutrophils # Man 9.1 H Lymphocytes # (Manual) 0.0 L Monocytes # (Manual) PT INR POC ABG pH POC ABG pCO2 POC ABG pO2 Sodium 132 L Potassium Chloride Carbon Dioxide BUN 79 H Creatinine 2.4 H Glucose 117 H POC Glucose 162 H Lactic Acid Calcium 7.5 L Phosphorus Magnesium Total Bilirubin AST 48 H Alkaline Phosphatase 252 H Total Creatine Kinase C-Reactive Protein Total Protein 5.5 L Albumin 1.6 L TSH Free T4 Urine WBC (Auto) Crossmatch 12/24/18 12/24/18 12/24/18 06:00 12:03 18:45 WBC RBC Hgb Hct MCV MCH RDW Plt Count Lymph % (Auto) Lymph # Seg Neutrophils % Seg Neuts % (Manual) Lymphocytes % (Manual) Monocytes % (Manual) Nucleated RBC % Seg Neutrophils # Seg Neutrophils # Man Lymphocytes # (Manual) Monocytes # (Manual) PT INR POC ABG pH POC ABG pCO2 POC ABG pO2 Sodium Potassium Chloride Carbon Dioxide BUN Creatinine Glucose POC Glucose 153 H 133 H Lactic Acid Calcium Phosphorus 6.60 H Magnesium 2.40 H Total Bilirubin AST Alkaline Phosphatase Total Creatine Kinase C-Reactive Protein Total Protein Albumin TSH Free T4 Urine WBC (Auto) Crossmatch 12/24/18 12/25/18 12/25/18 23:08 06:36 12:05 WBC RBC Hgb Hct MCV MCH RDW Plt Count Lymph % (Auto) Lymph # Seg Neutrophils % Seg Neuts % (Manual) Lymphocytes % (Manual) Monocytes % (Manual) Nucleated RBC % Seg Neutrophils # Seg Neutrophils # Man Lymphocytes # (Manual) Monocytes # (Manual) PT INR POC ABG pH POC ABG pCO2 POC ABG pO2 Sodium Potassium Chloride Carbon Dioxide BUN Creatinine Glucose POC Glucose 125 H 176 H 161 H Lactic Acid Calcium Phosphorus Magnesium Total Bilirubin AST Alkaline Phosphatase Total Creatine Kinase C-Reactive Protein Total Protein Albumin TSH Free T4 Urine WBC (Auto) Crossmatch 12/25/18 12/26/18 12/26/18 18:33 00:07 05:09 WBC RBC Hgb Hct MCV MCH RDW Plt Count Lymph % (Auto) Lymph # Seg Neutrophils % Seg Neuts % (Manual) Lymphocytes % (Manual) Monocytes % (Manual) Nucleated RBC % Seg Neutrophils # Seg Neutrophils # Man Lymphocytes # (Manual) Monocytes # (Manual) PT INR POC ABG pH POC ABG pCO2 POC ABG pO2 Sodium Potassium Chloride Carbon Dioxide BUN Creatinine Glucose POC Glucose 237 H 178 H 171 H Lactic Acid Calcium Phosphorus Magnesium Total Bilirubin AST Alkaline Phosphatase Total Creatine Kinase C-Reactive Protein Total Protein Albumin TSH Free T4 Urine WBC (Auto) Crossmatch 12/26/18 12/26/18 12/26/18 11:27 17:52 23:39 WBC RBC Hgb Hct MCV MCH RDW Plt Count Lymph % (Auto) Lymph # Seg Neutrophils % Seg Neuts % (Manual) Lymphocytes % (Manual) Monocytes % (Manual) Nucleated RBC % Seg Neutrophils # Seg Neutrophils # Man Lymphocytes # (Manual) Monocytes # (Manual) PT INR POC ABG pH POC ABG pCO2 POC ABG pO2 Sodium Potassium Chloride Carbon Dioxide BUN Creatinine Glucose POC Glucose 205 H 166 H 122 H Lactic Acid Calcium Phosphorus Magnesium Total Bilirubin AST Alkaline Phosphatase Total Creatine Kinase C-Reactive Protein Total Protein Albumin TSH Free T4 Urine WBC (Auto) Crossmatch 12/27/18 06:21 WBC RBC Hgb Hct MCV MCH RDW Plt Count Lymph % (Auto) Lymph # Seg Neutrophils % Seg Neuts % (Manual) Lymphocytes % (Manual) Monocytes % (Manual) Nucleated RBC % Seg Neutrophils # Seg Neutrophils # Man Lymphocytes # (Manual) Monocytes # (Manual) PT INR POC ABG pH POC ABG pCO2 POC ABG pO2 Sodium Potassium Chloride Carbon Dioxide BUN Creatinine Glucose POC Glucose 174 H Lactic Acid Calcium Phosphorus Magnesium Total Bilirubin AST Alkaline Phosphatase Total Creatine Kinase C-Reactive Protein Total Protein Albumin TSH Free T4 Urine WBC (Auto) Crossmatch Chest x-ray: report reviewed, image reviewed Allied health notes reviewed: nursing
--- NOTE | 2018-12-27 15:55 | Consultation ---
History of Present Illness Consult date: 12/27/18 Chief complaint: trach/peg - History of present illness History of present illness: 88 yo F with hx of CVA who was brought in to ER by family after being found unresponsive. She was admitted, intubated, and diagnosed with sepsis, UTI, MARYANN. She has been unresponsive and unable to be weaned from vent. Per notes she is apneic on weaning trials and essentially comatose. There has been discussions between ICU team and family regarding poor prognosis. The granddaughter is electing to continue with all measures despite this. Surgery is consulted for trach/peg placement. No information could be obtained from patient as she is int ubated and unresponsive. Past History Past Medical History: anemia, diabetes, hypertension, hyperlipidemia, stroke, other (as per HPI) Past Surgical History: hysterectomy, Other ( colon polyps removed, pacemaker) Social history: denies: smoking, alcohol abuse Family history: hypertension Medications and Allergies Allergies Allergy/AdvReac Type Severity Reaction Status Date / Time Penicillins Allergy Hives Verified 12/08/18 13:13 Home Medications Medication Instructions Recorded Confirmed Last Taken Type ALBUTEROL Inhaler (OR & NICU) 2 puff IH QID PRN #1 inhalation 12/21/16 12/08/18 Unknown Rx [Proair] Albuterol Sulfate [Albuterol 0.63% 0.63 mg IH TID PRN #90 ml 12/21/16 12/08/18 Unknown Rx NEBS] Amlodipine Besylate [Norvasc] 10 mg PO DAILY #90 tablet 12/21/16 12/08/18 Unk nown Rx AtorvaSTATin [Lipitor] 20 mg PO QHS #90 tablet 12/21/16 12/08/18 Unknown Rx Hydralazine HCl [Apresoline TAB] 50 mg PO TID #90 tablet 12/21/16 12/08/18 Unknown Rx Metoprolol [Lopressor TAB] 25 mg PO BID #90 tablet 12/21/16 12/08/18 Unknown Rx Promethazine /Codeine 5 ml PO Q6H PRN #100 ml 12/21/16 12/08/18 Unknown Rx [Phenergan/Codeine 6.25-10 mg/5 ml] Active Meds: Active Medications Acetaminophen (Tylenol) 650 mg MS Q4H PRN PRN Reason: Pain MILD(1-3)/Fever >100.5/TURNER Last Admin: 12/09/18 10:00 Dose: 650 mg Documented by: Albuterol (Proventil) 2.5 mg IH Q4HRT PRN PRN Reason: Shortness Of Breath Albuterol/Ipratropium (Duoneb *Not For Prn Use*) 1 ampul IH Q6HRT [facility] Last Admin: 12/27/18 14:03 Dose: 1 ampul Documented by: Lipase/Protease/Amylase (Pancrebetsy Dr 10,500 Unit) 1 each FEEDTUBE PRN PRN PRN Reason: For Clogged Feeding Tube Dextrose (D50w (25gm) Syringe) 50 ml IV PRN PRN PRN Reason: Hypoglycemia Last Admin: 12/24/18 00:30 Dose: 50 ml Documented by: Hydrophilic Ointment (Vaseline Lip Therapy) 1 applic TP DIRECT PRN PRN Reason: Dry tongue Norepinephrine (Levophed Drip 4 Mg/Ns 250 Ml) 4 mg in 250 mls @ 7.5 mls/hr IV TITR [facility]; Protocol Last Titration: 12/19/18 18:00 Dose: 0 mcg/min, 0 mls/hr Documented by: Sodium Chloride (Nacl 0.9% 1000 Ml) 1,000 mls @ 50 mls/hr IV DIRECT KOLE Last Admin: 12/27/18 05:32 Dose: 50 mls/hr Documented by: Insulin Human Lispro (Humalog) 0 unit SUB-Q Q6HR [facility]; Protocol Last Admin: 12/27/18 13:30 Dose: 3 unit Documented by: Lansoprazole (Prevacid Solutab) 30 mg FEEDTUBE BID [facility] Last Admin: 12/27/18 10:36 Dose: 30 mg Documented by: Midodrine (Proamatine) 10 mg PO TID@0800,1200,1600 [facility] Last Admin: 12/27/18 14:32 Dose: 10 mg Documented by: Multi-Ingred Cream/Lotion/Oil/Oint (Artificial Tears Ophth Oint) 1 applic OU Q4HR PRN PRN Reason: Dry Eye(s) Ondansetron HCl (Zofran) 4 mg IV Q8H PRN PRN Reason: Nausea And Vomiting Simple Syrup (Simple Syrup) 15 ml FEEDTUBE PRN PRN PRN Reason: Hypoglycemia Simple Syrup (Simple Syrup) 30 ml FEEDTUBE PRN PRN PRN Reason: Hypoglycemia Sodium Bicarbonate (Sodium Bicarbonate) 325 mg FEEDTUBE PRN PRN PRN Reason: For Clogged Feeding Tube Sodium Chloride (Sodium Chloride Flush Syringe 10 Ml) 10 ml IV BID KOLE Last Admin: 12/27/18 10:39 Dose: 10 ml Documented by: Sodium Chloride (Sodium Chloride Flush Syringe 10 Ml) 10 ml IV PRN PRN PRN Reason: LINE FLUSH Last Admin: 12/17/18 10:47 Dose: 10 ml Documented by: Review of Systems ROS unobtainable: due to endotracheal tube, due to mental status Exam Vital Signs Pulse Resp 95 H 14 12/08/18 12:50 12/08/18 12:50 Narrative exam: Gen: Intubated. Not responsive to painful or verbal stimuli ENT: swollen and protruding tongue. ETT and dobhoff in place. Right clavicular head is larger than left. Trachea midline. No masses CV: s1, S2+ resp: on vent Abd: soft, NT, ND Ext; generalized edema, anasarca Results - Labs 12/24/18 06:00 12/24/18 06:00 Abnormal lab results 12/26/18 12/26/18 12/27/18 Range/Units 17:52 23:39 06:21 POC Glucose 166 H 122 H 174 H (70-105) Assessment and Plan 88 yo F with 1. VDRF 2. sepsis 3. acute encephalopathy 4. comatose 5. hx CVA 6. thrombocytopenia Plan; Notes reviewed - patient has an overall poor prognosis with consultants recommending palliative care. Neurology has been consulted but no recent notes. 1. recommend neurology reevaluation of patient 2. I tried to call granddaughter Aarti who is decision maker for patient. No answer. Will try again tomorrow to discuss procedure risks and benefits. Thank you, please call with questions. D/W Dr. Amin
--- NOTE | 2018-12-27 16:16 | Progress Note ---
Assessment and Plan L:petar GI Bleed Monitor H/H Transfuse if necessary GIn consult requested Acute respiratory failure, intubated Prognosis is dismal; withdrawal of mechanical ventilation and palliative care would be the most appropriate management at this point, especially in light of apnea on PSV (she would require long-term ventilator facility until she dies); reviewed housing case manager notes -> Grand-daughter is primary decision maker .Will contact her for advance directives Acute encephalopathy: - likely from sepsis alone versus possible meningitis vs seizure. CT head extensive right MCA encephalomalcia, right mastoid opacities. neurology ordered EEG. 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 Severe Sepsis due to UTI , right mastoiditis, aspiration PNA Blood cultures negative, right ear Cx negative Started on Merrem by ID Shock, hypotension did not respond to iv bolus so was started on Levophed, BP improved so off levophed Leukocytosis Hypotension/septic shock, resolved weaned off Levophed, BP now stable Left lower lobe infiltrate, poss pneumonia - Treat with antibiotic for now Large Pericardial effusion. TTE EF>50, no echo evidence of tamponade. Cardiology consulted, following and recommended medical management for now Coffee ground contents from NG aspirate/ Acute GI bleed cont Protonix, Consulted GI- cont to Monitor H/H, no plan for EGD now Transfuse prn MARYANN on CKD 3 baseline Cr around 1.2-1.5mg/dl Likely due to underlying sepsis Monitor BMP, Nephrology following- no indication for HD now /Acute on chronic anemia has h/o anemia requiring previous blood transfusions could be multifactorial (GI bleed and CKD), Total 3 Units PRBC transfused Thrombocytopenia Transfused total 4 Units platelets Plt 7 today, will transfuse more Hypothermia,resolved s/p warming blanket h/o Hypertension - BP now stable Diabetes mellitus type 2, SSI as needed FEN, on TF, not tolerating, Full code status. Very Poor prognosis The high probability of a clinically significant, sudden or life threatening deterioration of the [4] system(s) required my full and direct attention, intervention and personal management. The aggregate critical care time was [33] minutes. This time is in addition to time spent performing reported procedures but includes the following: [x] Data Review and interpretation [x] Patient assessment and monitoring of vital signs [x] Documentation [x] Medication orders and management Subjective Date of service: 12/27/18 Principal diagnosis: Acute respiratory failure Interval history: Blood clots per rectum at 5 pm Objective - Exam Narrative Exam: Patient intubated - Constitutional Vitals: Vital Signs - 12hr 12/27/18 12/27/18 12/27/18 04:30 05:00 06:00 Temperature Pulse Rate 75 82 75 Pulse Rate [ From Monitor] Pulse Rate [ Throughout] Respiratory 18 18 Rate Respiratory Rate [ Throughout] Blood Pressure 152/62 167/48 128/71 O2 Sat by Pulse 100 100 100 Oximetry 12/27/18 12/27/18 12/27/18 07:01 08:00 08:01 Temperature 94.1 F L Pulse Rate 70 65 68 Pulse Rate [ 69 From Monitor] Pulse Rate [ 65 Throughout] Respiratory 18 18 16 Rate Respiratory 18 Rate [ Throughout] Blood Pressure 157/36 123/43 111/43 O2 Sat by Pulse 100 100 100 Oximetry 12/27/18 12/27/18 12/27/18 08:14 09:00 10:00 Temperature Pulse Rate 75 67 Pulse Rate [ From Monitor] Pulse Rate [ 65 Throughout] Respiratory 17 18 Rate Respiratory 18 Rate [ Throughout] Blood Pressure 123/43 143/35 O2 Sat by Pulse 100 100 Oximetry 12/27/18 12/27/18 12/27/18 11:00 11:44 12:00 Temperature 95.3 F L Pulse Rate 76 73 Pulse Rate [ 69 From Monitor] Pulse Rate [ Throughout] Respiratory 18 18 Rate Respiratory Rate [ Throughout] Blood Pressure 134/60 128/51 O2 Sat by Pulse 100 100 100 Oximetry 12/27/18 12/27/18 12/27/18 12:01 13:01 14:01 Temperature Pulse Rate 77 75 73 Pulse Rate [ From Monitor] Pulse Rate [ Throughout] Respiratory 18 18 18 Rate Respiratory Rate [ Throughout] Blood Pressure 163/36 150/52 147/43 O2 Sat by Pulse 100 100 100 Oximetry 12/27/18 12/27/18 12/27/18 14:03 14:13 15:01 Temperature Pulse Rate 92 H Pulse Rate [ From Monitor] Pulse Rate [ 77 70 Throughout] Respiratory 14 Rate Respiratory 18 18 Rate [ Throughout] Blood Pressure 150/103 O2 Sat by Pulse 100 Oximetry 12/27/18 16:00 Temperature Pulse Rate 66 Pulse Rate [ From Monitor] Pulse Rate [ Throughout] Respiratory Rate Respiratory Rate [ Throughout] Blood Pressure 129/37 O2 Sat by Pulse 100 Oximetry General appearance: Present: no acute distress, well-nourished - EENT Eyes: PERRL, EOM intact ENT: hearing intact, clear oral mucosa Ears: bilateral: normal - Neck Neck: supple, normal ROM - Respiratory Respiratory effort: normal Respiratory: bilateral: CTA - Breasts Breasts: normal - Cardiovascular Rhythm: regular Heart Sounds: Present: S1 & S2. Absent: gallop, rub Extremities: pulses intact, No edema, normal color, Full ROM - Gastrointestinal General gastrointestinal: Present: soft, non-tender, non-distended, normal bowel sounds - Genitourinary Female genitourinary: normal - Integumentary Integumentary: clear, warm, dry - Musculoskeletal Musculoskeletal: 1, strength equal bilaterally - Neurologic Neurologic: moves all extremities - Psychiatric Psychiatric: memory intact, appropriate mood/affect, intact judgment & insight - Labs CBC & Chem 7: 12/28/18 00:39 12/27/18 16:20 Labs: Abnormal lab results 12/26/18 12/26/18 12/27/18 Range/Units 17:52 23:39 06:21 POC Glucose 166 H 122 H 174 H (70-105)
[2018-12-27 16:33] LABS: Basophils % (Auto) 0.3 % (0.0-1.8); Hemoglobin 7.6 gm/dl (10.1-14.3); Lymphocytes # (Auto) 0.6 K/mm3 (1.2-5.4); Lymphocytes % (Auto) 8.9 % (13.4-35.0); Mean Corpuscular HGB Conc 33 % (30-34); Mean Corpuscular Volume 76 fl (79-97); Monocytes # (Auto) 0.5 K/mm3 (0.0-0.8); Monocytes % (Auto) 7.4 % (0.0-7.3); Red Blood Count 3.01 M/mm3 (3.65-5.03)
[2018-12-27 16:34] LABS: Platelet Count 28 K/mm3 (140-440); Red Cell Distribution Width 24.4 % (13.2-15.2)
[2018-12-27 16:53] LABS: Calcium 6.8 mg/dL (8.4-10.2)
[2018-12-27] MEDS ORDERED: NACL 0.9% 500 ML 500 ML IV ONE (18:55)
[2018-12-27] MEDS ORDERED: PHENERGAN/CODEINE 6.25-10 MG/5ML PO PRN (23:49)
[2018-12-27] MEDS ORDERED: NON-FORMULARY (Albuterol Sulfate [Albuterol 0.63% Nebs] 0.63 MG) IH PRN (23:49)
[2018-12-28] MEDS: TYLENOL PR PRN (00:24)
[2018-12-28] MEDS ORDERED: LOPRESSOR IV ONE (00:46)
[2018-12-28 00:50] LABS: Hematocrit 24.6 % (30.3-42.9); Hemoglobin 8.2 gm/dl (10.1-14.3)
[2018-12-28] MEDS: HumaLOG SUB-Q SCH ×4 (01:00→17:17)
[2018-12-28] MEDS: LOPRESSOR PO SCH ×3 (01:07→16:41)
[2018-12-28] MEDS: NACL 0.9% 1000 ML 1,000 ML IV SCH (01:43)
[2018-12-28] MEDS: DUONEB *Not for PRN Use IH SCH ×4 (02:09→19:13)
[2018-12-28 07:50] LABS: Mean Corpuscular HGB Conc 34 % (30-34)
[2018-12-28 07:59] LABS: Calcium 6.5 mg/dL (8.4-10.2)
[2018-12-28] MEDS: PROAMATINE PO SCH ×3 (08:00→16:00)
[2018-12-28] MEDS: APRESOLINE PO SCH ×3 (08:00→20:45)
[2018-12-28 08:04] LABS: Eosinophils % (Auto) 0.1 % (0.0-4.3); Hematocrit 27.5 % (30.3-42.9); Hemoglobin 9.3 gm/dl (10.1-14.3); Mean Corpuscular Volume 80 fl (79-97); Monocytes % (Auto) 6.1 % (0.0-7.3); Red Blood Count 3.43 M/mm3 (3.65-5.03)
[2018-12-28 08:07] LABS: Platelet Count 34 K/mm3 (140-440)
--- NOTE | 2018-12-28 08:13 | Progress Note ---
Assessment and Plan Assessment and plan: --Lower GI Bleeding: Hemoglobin today is 8.2 -9.3 Monitor H/H, transfuse as needed, followed GI evaluation h/o Coffee ground emesis: Resolved No plans of endoscopy --Acute respiratory failure; vent dependent Patient may need trach and PEG, surgery following especially in light of apnea on PSV (she would require long-term ventilator facility indefinitely); Grand-daughter is primary decision maker .Will discuss the treatment plan --Acute encephalopathy: Multifactorial CT head extensive right MCA encephalomalcia, right mastoid opacities. neurology ordered EEG. 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 --Severe Sepsis due to UTI , right mastoiditis, aspiration PNA Blood cultures negative, right ear Cx negative Completed antibiotics per ID --Septic Shock, hypotension, BP improved,off levophed --Left lower lobe infiltrate, poss pneumonia Received antibiotics --Large Pericardial effusion without tamponade TTE EF>50,Cardiology evaluated, medical management Poor candidate for any procedure --MARYANN on CKD 3 Nephrology following-avoid nephrotoxins no indication for HD now --Acute on chronic anemia has h/o anemia requiring previous blood transfusions could be multifactorial (GI bleed and CKD), Total 4 Units PRBC transfused --Thrombocytopenia Transfused total 5 Units platelets Plt 34 today, will transfuse more --Hypothermia,resolved --Diabetes mellitus type 2, SSI as needed Full code status. Very Poor prognosis The high probability of a clinically significant, sudden or life threatening deterioration of the [respiratory, cardiology, GI, renal, hematology] system(s) required my full and direct attention, intervention and personal management. The aggregate critical care time was [32] minutes. This time is in addition to time spent performing reported procedures but includes the following: [x] Data Review and interpretation [x] Patient assessment and monitoring of vital signs [x] Documentation [x] Medication orders and management History Interval history: Patient seen and examined medical records reviewed Patient remains intubated on ventilatory support New events reported by nursing staff Not in acute distress Vital signs reviewed Hospitalist Physical - Constitutional Vitals: Temp Pulse Resp BP Pulse Ox 98.8 F 75 18 146/53 100 12/28/18 04:00 12/28/18 06:00 12/28/18 06:00 12/28/18 06:00 12/28/18 06:00 General appearance: Present: no acute distress, well-nourished, other (intubated on vent) - EENT Eyes: Present: PERRL, EOM intact - Neck Neck: Present: supple - Respiratory Respiratory effort: normal Respiratory: bilateral: diminished, rhonchi, negative: rales, wheezing - Cardiovascular Rhythm: regular Heart Sounds: Present: S1 & S2 - Extremities Extremities: no ischemia Extremity abnormal: edema - Abdominal General gastrointestinal: soft, non-tender, non-distended, normal bowel sounds - Integumentary Integumentary: Present: clear, warm - Psychiatric Psychiatric: other (intubated on vent) - Neurologic Neurologic: other (intubated on vent) Results - Labs CBC & Chem 7: 12/28/18 07:30 12/28/18 07:30 Labs: Laboratory Last Values WBC 7.2 K/mm3 (4.5-11.0) 12/27/18 16:20 RBC 3.01 M/mm3 (3.65-5.03) L 12/27/18 16:20 Hgb 8.2 gm/dl (10.1-14.3) L 12/28/18 00:39 Hct 24.6 % (30.3-42.9) L 12/28/18 00:39 MCV 76 fl (79-97) L 12/27/18 16:20 MCH 25 pg (28-32) L 12/27/18 16:20 MCHC 33 % (30-34) 12/27/18 16:20 RDW 24.4 % (13.2-15.2) H 12/27/18 16:20 Plt Count 28 K/mm3 (140-440) L 12/27/18 16:20 Lymph % (Auto) 8.9 % (13.4-35.0) L 12/27/18 16:20 [place] % (Auto) 7.4 % (0.0-7.3) H 12/27/18 16:20 Eos % (Auto) 0.0 % (0.0-4.3) 12/27/18 16:20 Baso % (Auto) 0.3 % (0.0-1.8) 12/27/18 16:20 Lymph # 0.6 K/mm3 (1.2-5.4) L 12/27/18 16:20 Gooding # 0.5 K/mm3 (0.0-0.8) 12/27/18 16:20 Eos # 0.0 K/mm3 (0.0-0.4) 12/27/18 16:20 Baso # 0.0 K/mm3 (0.0-0.1) 12/27/18 16:20 Add Manual Diff Complete 12/24/18 06:00 Total Counted 100 12/24/18 06:00 Seg Neutrophils % 83.4 % (40.0-70.0) H 12/27/18 16:20 Seg Neuts % (Manual) 86.0 % (40.0-70.0) H 12/24/18 06:00 Band Neutrophils % 14.0 % 12/24/18 06:00 Lymphocytes % (Manual) 0 % (13.4-35.0) L 12/24/18 06:00 Reactive Lymphs % (Man) 0 % 12/24/18 06:00 Monocytes % (Manual) 0 % (0.0-7.3) 12/24/18 06:00 Eosinophils % (Manual) 0 % (0.0-4.3) 12/24/18 06:00 Basophils % (Manual) 0 % (0.0-1.8) 12/24/18 06:00 Metamyelocytes % 0 % 12/24/18 06:00 Myelocytes % 0 % 12/24/18 06:00 Promyelocytes % 0 % 12/24/18 06:00 Blast Cells % 0 % 12/24/18 06:00 Nucleated RBC % Not Reportable 12/24/18 06:00 Seg Neutrophils # 6.0 K/mm3 (1.8-7.7) 12/27/18 16:20 Seg Neutrophils # Man 9.1 K/mm3 (1.8-7.7) H 12/24/18 06:00 Band Neutrophils # 1.5 K/mm3 12/24/18 06:00 Lymphocytes # (Manual) 0.0 K/mm3 (1.2-5.4) L 12/24/18 06:00 Abs React Lymphs (Man) 0.0 K/mm3 12/24/18 06:00 Monocytes # (Manual) 0.0 K/mm3 (0.0-0.8) 12/24/18 06:00 Eosinophils # (Manual) 0.0 K/mm3 (0.0-0.4) 12/24/18 06:00 Basophils # (Manual) 0.0 K/mm3 (0.0-0.1) 12/24/18 06:00 Metamyelocytes # 0.0 K/mm3 12/24/18 06:00 Myelocytes # 0.0 K/mm3 12/24/18 06:00 Promyelocytes # 0.0 K/mm3 12/24/18 06:00 Blast Cells # 0.0 K/mm3 12/24/18 06:00 WBC Morphology Not Reportable 12/24/18 06:00 Hypersegmented Neuts Not Reportable 12/24/18 06:00 Hyposegmented Neuts Not Reportable 12/24/18 06:00 Hypogranular Neuts Not Reportable 12/24/18 06:00 Smudge Cells Not Reportable 12/24/18 06:00 Toxic Granulation Not Reportable 12/24/18 06:00 Toxic Vacuolation Not Reportable 12/24/18 06:00 Dohle Bodies Not Reportable 12/24/18 06:00 Pelger-Huet Anomaly Not Reportable 12/24/18 06:00 Mark Rods Not Reportable 12/24/18 06:00 Platelet Estimate Consistent w auto 12/24/18 06:00 Clumped Platelets Not Reportable 12/24/18 06:00 Plt Clumps, EDTA Not Reportable 12/24/18 06:00 Large Platelets Not Reportable 12/24/18 06:00 Giant Platelets Rare 12/24/18 06:00 Platelet Satelliting Not Reportable 12/24/18 06:00 Plt Morphology Comment Not Reportable 12/24/18 06:00 RBC Morphology Not Reportable 12/24/18 06:00 Dimorphic RBCs Not Reportable 12/24/18 06:00 Polychromasia Not Reportable 12/24/18 06:00 Hypochromasia 1+ 12/24/18 06:00 Poikilocytosis Not Reportable 12/24/18 06:00 Anisocytosis 1+ 12/24/18 06:00 Microcytosis Not Reportable 12/24/18 06:00 Macrocytosis Not Reportable 12/24/18 06:00 Spherocytes Not Reportable 12/24/18 06:00 Pappenheimer Bodies Not Reportable 12/24/18 06:00 Sickle Cells Not Reportable 12/24/18 06:00 Target Cells 1+ 12/24/18 06:00 Tear Drop Cells Not Reportable 12/24/18 06:00 Ovalocytes Not Reportable 12/24/18 06:00 Helmet Cells Not Reportable 12/24/18 06:00 Estrada-[place] Bodies Not Reportable 12/24/18 06:00 [place] Rings Not Reportable 12/24/18 06:00 [place] Cells Not Reportable 12/24/18 06:00 Bite Cells Not Reportable 12/24/18 06:00 Crenated Cell Not Reportable 12/24/18 06:00 Elliptocytes Not Reportable 12/24/18 06:00 Acanthocytes (Spur) Not Reportable 12/24/18 06:00 Rouleaux Not Reportable 12/24/18 06:00 Hemoglobin C Crystals Not Reportable 12/24/18 06:00 Schistocytes Not Reportable 12/24/18 06:00 Malaria parasites Not Reportable 12/24/18 06:00 Stef Bodies Not Reportable 12/24/18 06:00 Hem Pathologist Commnt No 12/24/18 06:00 PT 20.2 Sec. (12.2-14.9) H 12/12/18 08:00 INR 1.61 (0.87-1.13) H 12/12/18 08:00 APTT 30.9 Sec. (24.2-36.6) 12/10/18 10:40 POC ABG pH 7.325 (7.35-7.45) L 12/15/18 03:37 POC ABG pCO2 28.6 (35-45) L 12/15/18 03:37 POC ABG pO2 105 (80-105) 12/15/18 03:37 POC ABG HCO3 14.9 12/15/18 03:37 POC ABG Total CO2 16 12/15/18 03:37 POC ABG O2 Sat 98 12/15/18 03:37 POC ABG Base Excess -11 12/15/18 03:37 FiO2 25 % 12/15/18 03:37 Sodium 137 mmol/L (137-145) 12/28/18 07:30 Potassium 3.9 mmol/L (3.6-5.0) 12/28/18 07:30 Chloride 102.5 mmol/L (98-107) 12/28/18 07:30 Carbon Dioxide 20 mmol/L (22-30) L 12/28/18 07:30 Anion Gap 18 mmol/L 12/28/18 07:30 BUN 101 mg/dL (7-17) H 12/28/18 07:30 Creatinine 2.8 mg/dL (0.7-1.2) H 12/28/18 07:30 Estimated GFR 19 ml/min 12/28/18 07:30 BUN/Creatinine Ratio 36 % 12/28/18 07:30 Glucose 155 mg/dL (65-100) H 12/28/18 07:30 POC Glucose 160 (70-105) H 12/28/18 06:42 Hemoglobin A1c 4.9 % (4-6) 12/10/18 04:38 Lactic Acid 3.00 mmol/L (0.7-2.0) H* 12/08/18 15:21 Calcium 6.5 mg/dL (8.4-10.2) L 12/28/18 07:30 Phosphorus 7.40 mg/dL (2.5-4.5) H 12/28/18 07:30 Magnesium 2.30 mg/dL (1.7-2.3) 12/28/18 07:30 Total Bilirubin 0.60 mg/dL (0.1-1.2) 12/24/18 06:00 AST 48 units/L (5-40) H 12/24/18 06:00 ALT 20 units/L (7-56) 12/24/18 06:00 Alkaline Phosphatase 252 units/L (35-129) H 12/24/18 06:00 Total Creatine Kinase 258 units/L (30-135) H 12/08/18 13:40 C-Reactive Protein 19.60 mg/dL (0.00-1.30) H 12/09/18 18:18 Total Protein 5.5 g/dL (6.3-8.2) L 12/24/18 06:00 Albumin 1.6 g/dL (3.9-5) L 12/24/18 06:00 Albumin/Globulin Ratio 0.4 % 12/24/18 06:00 TSH 0.268 mlU/mL (0.270-4.200) L 12/09/18 15:54 Free T4 0.58 ng/dL (0.76-1.46) L 12/09/18 15:54 Urine Color Yolie (Yellow) 12/08/18 13:40 Urine Turbidity Cloudy (Clear) 12/08/18 13:40 Urine pH 7.0 (5.0-7.0) 12/08/18 13:40 Ur Specific Wheeler 1.015 (1.003-1.030) 12/08/18 13:40 Urine Protein 100 mg/dl mg/dL (Negative) 12/08/18 13:40 Urine Glucose (UA) Neg mg/dL (Negative) 12/08/18 13:40 Urine Ketones Neg mg/dL (Negative) 12/08/18 13:40 Urine Blood Sm (Negative) 12/08/18 13:40 Urine Nitrite Neg (Negative) 12/08/18 13:40 Urine Bilirubin Neg (Negative) 12/08/18 13:40 Urine Urobilinogen 2.0 mg/dL (<2.0) 12/08/18 13:40 Ur Leukocyte Esterase Mod (Negative) 12/08/18 13:40 Urine WBC (Auto) 157.0 /HPF (0.0-6.0) H 12/08/18 13:40 Urine RBC (Auto) 8.0 /HPF (0.0-6.0) 12/08/18 13:40 U Epithel Cells (Auto) 1.0 /HPF (0-13.0) 12/08/18 13:40 Urine Bacteria (Auto) 4+ /HPF (Negative) 12/08/18 13:40 Urine Mucus 2+ /HPF 12/08/18 13:40 Random Vancomycin 15.9 ug/mL (0-40.0) 12/18/18 04:08 JEFFREY Screen Negative (Negative) 12/09/18 15:54 Blood Type B POSITIVE 12/27/18 20:16 Antibody Screen Negative 12/27/18 20:16 Crossmatch See Detail 12/27/18 20:16 Active Medications - Current Medications Current Medications: Generic Name Dose Route Start Last Admin Trade Name Freq PRN Reason Stop Dose Admin Acetaminophen 650 mg 12/09/18 01:00 12/28/18 00:24 Tylenol UT 650 mg Q4H PRN Administration Pain MILD(1-3)/Fever >100.5/TURNER Albuterol 2.5 mg 12/09/18 00:31 Proventil IH Q4HRT PRN Shortness Of Breath Albuterol/Ipratropium 1 ampul 12/09/18 02:00 12/28/18 02:09 Duoneb *Not For Prn Use* IH 1 ampul Q6HRT KOLE Administration Amlodipine Besylate 10 mg 12/28/18 10:00 Norvasc PO DAILY KOLE Lipase/Protease/Amylase 1 each 12/09/18 04:[address] 10,500 Unit FEEDTUBE PRN PRN For Clogged Feeding Tube Atorvastatin Calcium 20 mg 12/28/18 22:00 Lipitor PO QHS KOLE Dextrose 50 ml 12/24/18 00:42 12/24/18 00:30 D50w (25gm) Syringe IV 50 ml PRN PRN Administration Hypoglycemia Hydralazine HCl 50 mg 12/28/18 08:00 Apresoline PO TID KOLE Hydrophilic Ointment 1 applic 12/14/18 13:00 Vaseline Lip Therapy TP DIRECT PRN Dry tongue Norepinephrine 4 mg in 250 mls @ 7.5 mls/hr 12/18/18 18:00 12/19/18 18:00 Levophed Drip 4 Mg/Ns 250 Ml IV 0 mcg/min TITR KOLE 0 mls/hr Titration Protocol 2 MCG/MIN Sodium Chloride 1,000 mls @ 50 mls/hr 12/23/18 13:00 12/28/18 01:43 Nacl 0.9% 1000 Ml IV 50 mls/hr DIRECT KOLE Administration Insulin Human Lispro 0 unit 12/11/18 12:00 12/28/18 06:46 Humalog SUB-Q 3 unit Q6HR KOLE Administration Protocol Lansoprazole 30 mg 12/12/18 10:00 12/27/18 21:46 Prevacid Solutab FEEDTUBE 30 mg BID KOLE Administration Metoprolol Tartrate 25 mg 12/27/18 23:45 12/28/18 01:07 Lopressor PO 25 mg BID@0800,1700 KOLE Administration Midodrine 10 mg 12/18/18 19:01 12/27/18 17:34 Proamatine PO 10 mg TID@0800,1200,1600 KOLE Administration Multi-Ingred Cream/Lotion/Oil/Oint 1 applic 03/03/19 13:31 Artificial Tears Ophth Oint OU Q4HR PRN Dry Eye(s) Ondansetron HCl 4 mg 12/09/18 00:31 Zofran IV Q8H PRN Nausea And Vomiting Promethazine HCl/Codeine 5 ml 12/27/18 23:49 Phenergan/Codeine 6.25-10 Mg/5ml PO Q6H PRN cough Simple Syrup 15 ml 12/09/18 04:05 Simple Syrup FEEDTUBE PRN PRN Hypoglycemia Simple Syrup 30 ml 12/09/18 04:05 Simple Syrup FEEDTUBE PRN PRN Hypoglycemia Sodium Bicarbonate 325 mg 12/09/18 04:05 Sodium Bicarbonate FEEDTUBE PRN PRN For Clogged Feeding Tube Sodium Chloride 10 ml 12/09/18 10:00 12/27/18 21:47 Sodium Chloride Flush Syringe 10 Ml IV 10 ml BID KOLE Administration Sodium Chloride 10 ml 12/09/18 00:31 12/17/18 10:47 Sodium Chloride Flush Syringe 10 Ml IV 10 ml PRN PRN Administration LINE FLUSH Nutrition/Malnutrition Assess - Dietary Evaluation Nutrition/Malnutrition Findings: Nutrition Notes Start: 12/09/18 12:11 Freq: Status: Active Protocol: Document 12/23/18 17:22 OL (Rec: 12/23/18 17:26 OL [id number]) Nutrition Notes Initial or Follow up Reassessment Current Diagnosis Acute Kidney Injury,Sepsis, Respiratory Failure Other Pertinent Diagnosis Acute encephalopathy, Pericardial effusion Current Diet TF - Glucerna 1.2 at 50ml/hr Labs/Tests Na 134 BUN 80 Cr 2.4 Pertinent Medications Reviewed Height 5 ft 1 in Weight 68.2 kg Ryan Body Weight (kg) 47.72 BMI 28.4 Weight change and time frame Wt. changed noted Subjective/Other Information TF and vent support continue. Discussed pt. during interdisciplinary rounds. Trach/PEG possible. Percent of energy/protein needs met: 100% energy 88% protein Burn Absent Trauma Absent #1 Nutrition Diagnosis Inadequate oral intake Diagnosis Progress(for reassessment Continues documentation) Is patient on ventilator? Yes Is Patient Ambulatory and/or Out of Bed No REE-([place] Jeor-confined to bed) [phone] Calculation Used for Recommendations [place] Additional Notes Pro needs 1.2-2g/k-136g/ day Fluid needs 1ml/kcal Nutrition Intervention Nutrition Support: Glucerna 1.2 at 50ml/hr Flush with 100ml q4h Kcal 1,440 Protein (gm) 72 Fluid (mL) 966 Goal #1 TF tolerance Goal #2 TF to meet at least 80% energy and pro needs Follow-Up By: 12/30/18 Additional Comments f/u: stable TF, vent status, wt.
[2018-12-28] MEDS: PREVACID SOLUTAB FEEDTUBE SCH ×2 (09:05→21:06)
[2018-12-28] MEDS: NORVASC PO SCH (09:06)
[2018-12-28] MEDS: SODIUM CHLORIDE FLUSH SYRINGE 10 ML IV SCH ×2 (09:06→21:07)
[2018-12-28 09:07] LABS: Anisocytosis 1+; Band Neutrophils # (Manual) 0.2 K/mm3; Basophils % (Manual) 0 % (0.0-1.8); Eosinophils % (Manual) 0 % (0.0-4.3); Hypochromasia 2+; Ovalocytes Few; Platelet Estimate Appears Decreased; Poikilocytosis 1+; Target Cells Few; Tear Drop Cells Rare; Total Cells Counted 100
--- NOTE | 2018-12-28 10:09 | Gastroenterology Progress Note ---
Assessment and Plan - Patient Problems (1) Rectal bleed Current Visit: Yes Status: Acute Plan to address problem: - Given bed-bound state with tube feeds and irregular bowels, most likely dx is either hemorrhoids or stercoral ulcer. - Stool is now brown, and hct shaylee appropriately after transfusion (has been anemic during this hospitalization). - No intolerance of tube feeds nor signs of obstruction or abdominal distress. - Recommend continue tube feeds and PPI therapy. - No plans for endoscopy given comorbids/poor prognosis unless clinical progr ession. Subjective Date of service: 12/28/18 Principal diagnosis: Rectal Bleed Interval history: We were called back to evaluate rectal bleeding. The patient has been tolerating tube feeds with multiple medical problems (see chart) but had few documented BMs in the last few days. She had passage of some clots last night, but no hypotension, hematemesis, or melena. She has been on PPI GI prophylaxis. She rec'd 1 unit PRBC and her blood counts increased markedly. She has had no witness emesis and her abdomen was not noted to be distended. She had a large BM this AM as well, but it was brown. Objective - Constitutional Vitals: Temp Pulse Resp BP Pulse Ox 97.2 F L 69 18 136/43 100 12/28/18 08:00 12/28/18 09:06 12/28/18 08:22 12/28/18 09:06 12/28/18 08:17 General appearance: other (Intubated/unresponsive) - Respiratory Respiratory effort: other (Not breathing over vent) Respiratory: bilateral: CTA (On Vent) - Cardiovascular Rhythm: regular Heart Sounds: Present: S1 & S2 - Gastrointestinal General gastrointestinal: Present: soft, non-tender, non-distended Rectal Exam: stool brown - Labs CBC & Chem 7: 12/28/18 07:30 12/28/18 07:30 Labs: Laboratory Results - last 24 hr 12/27/18 12/27/18 12/27/18 14:29 16:20 16:20 WBC 7.2 RBC 3.01 L Hgb 7.6 L Hct 23.0 L MCV 76 L MCH 25 L MCHC 33 RDW 24.4 H Plt Count 28 L Lymph % (Auto) 8.9 L Roberts % (Auto) 7.4 H Eos % (Auto) 0.0 Baso % (Auto) 0.3 Lymph # 0.6 L Roberts # 0.5 Eos # 0.0 Baso # 0.0 Add Manual Diff Total Counted Seg Neutrophils % 83.4 H Seg Neuts % (Manual) Band Neutrophils % Lymphocytes % (Manual) Reactive Lymphs % (Man) Monocytes % (Manual) Eosinophils % (Manual) Basophils % (Manual) Metamyelocytes % Myelocytes % Promyelocytes % Blast Cells % Nucleated RBC % Seg Neutrophils # 6.0 Seg Neutrophils # Man Band Neutrophils # Lymphocytes # (Manual) Abs React Lymphs (Man) Monocytes # (Manual) Eosinophils # (Manual) Basophils # (Manual) Metamyelocytes # Myelocytes # Promyelocytes # Blast Cells # WBC Morphology Hypersegmented Neuts Hyposegmented Neuts Hypogranular Neuts Smudge Cells Toxic Granulation Toxic Vacuolation Dohle Bodies Pelger-Huet Anomaly Mark Rods Platelet Estimate Clumped Platelets Plt Clumps, EDTA Large Platelets Giant Platelets Platelet Satelliting Plt Morphology Comment RBC Morphology Dimorphic RBCs Polychromasia Hypochromasia Poikilocytosis Anisocytosis Microcytosis Macrocytosis Spherocytes Pappenheimer Bodies Sickle Cells Target Cells Tear Drop Cells Ovalocytes Helmet Cells [place] Bodies [place] Rings Aneesh Cells Bite Cells Crenated Cell Elliptocytes Acanthocytes (Spur) Rouleaux Hemoglobin C Crystals Schistocytes Malaria parasites Stef Bodies Hem Pathologist Commnt Sodium 138 Potassium 4.1 Chloride 102.8 Carbon Dioxide 21 L Anion Gap 18 BUN 106 H Creatinine 3.0 H Estimated GFR 18 BUN/Creatinine Ratio 35 Glucose 184 H POC Glucose 197 H Calcium 6.8 L Phosphorus Magnesium Blood Type Antibody Screen Crossmatch 12/27/18 12/27/18 12/28/18 17:42 20:16 00:39 WBC RBC Hgb 8.2 L Hct 24.6 L MCV MCH MCHC RDW Plt Count Lymph % (Auto) Roberts % (Auto) Eos % (Auto) Baso % (Auto) Lymph # Roberts # Eos # Baso # Add Manual Diff Total Counted Seg Neutrophils % Seg Neuts % (Manual) Band Neutrophils % Lymphocytes % (Manual) Reactive Lymphs % (Man) Monocytes % (Manual) Eosinophils % (Manual) Basophils % (Manual) Metamyelocytes % Myelocytes % Promyelocytes % Blast Cells % Nucleated RBC % Seg Neutrophils # Seg Neutrophils # Man Band Neutrophils # Lymphocytes # (Manual) Abs React Lymphs (Man) Monocytes # (Manual) Eosinophils # (Manual) Basophils # (Manual) Metamyelocytes # Myelocytes # Promyelocytes # Blast Cells # WBC Morphology Hypersegmented Neuts Hyposegmented Neuts Hypogranular Neuts Smudge Cells Toxic Granulation Toxic Vacuolation Dohle Bodies Pelger-Huet Anomaly Mark Rods Platelet Estimate Clumped Platelets Plt Clumps, EDTA Large Platelets Giant Platelets Platelet Satelliting Plt Morphology Comment RBC Morphology Dimorphic RBCs Polychromasia Hypochromasia Poikilocytosis Anisocytosis Microcytosis Macrocytosis Spherocytes Pappenheimer Bodies Sickle Cells Target Cells Tear Drop Cells Ovalocytes Helmet Cells [place] Bodies [place] Rings [place] Cells Bite Cells Crenated Cell Elliptocytes Acanthocytes (Spur) Rouleaux Hemoglobin C Crystals Schistocytes Malaria parasites Stef Bodies Hem Pathologist Commnt Sodium Potassium Chloride Carbon Dioxide Anion Gap BUN Creatinine Estimated GFR BUN/Creatinine Ratio Glucose POC Glucose 211 H Calcium Phosphorus Magnesium Blood Type B POSITIVE Antibody Screen Negative Crossmatch See Detail 12/28/18 12/28/18 12/28/18 01:03 06:42 07:30 WBC 6.7 RBC 3.43 L Hgb 9.3 L Hct 27.5 L MCV 80 MCH 27 L MCHC 34 RDW 24.0 H Plt Count 34 L Lymph % (Auto) Roberts % (Auto) 6.1 Eos % (Auto) 0.1 Baso % (Auto) Lymph # Roberts # Eos # Baso # Add Manual Diff Complete Total Counted 100 Seg Neutrophils % 86.0 H Seg Neuts % (Manual) 88.0 H Band Neutrophils % 3.0 Lymphocytes % (Manual) 6.0 L Reactive Lymphs % (Man) 0 Monocytes % (Manual) 3.0 Eosinophils % (Manual) 0 Basophils % (Manual) 0 Metamyelocytes % 0 Myelocytes % 0 Promyelocytes % 0 Blast Cells % 0 Nucleated RBC % Not Reportable Seg Neutrophils # 5.8 Seg Neutrophils # Man 5.9 Band Neutrophils # 0.2 Lymphocytes # (Manual) 0.4 L Abs React Lymphs (Man) 0.0 Monocytes # (Manual) 0.2 Eosinophils # (Manual) 0.0 Basophils # (Manual) 0.0 Metamyelocytes # 0.0 Myelocytes # 0.0 Promyelocytes # 0.0 Blast Cells # 0.0 WBC Morphology Not Reportable Hypersegmented Neuts Not Reportable Hyposegmented Neuts Not Reportable Hypogranular Neuts Not Reportable Smudge Cells Not Reportable Toxic Granulation Not Reportable Toxic Vacuolation Not Reportable Dohle Bodies Not Reportable Pelger-Huet Anomaly Not Reportable Mark Rods Not Reportable Platelet Estimate Appears decreased Clumped Platelets Not Reportable Plt Clumps, EDTA Not Reportable Large Platelets Not Reportable Giant Platelets Not Reportable Platelet Satelliting Not Reportable Plt Morphology Comment Not Reportable RBC Morphology Not Reportable Dimorphic RBCs Not Reportable Polychromasia Not Reportable Hypochromasia 2+ Poikilocytosis 1+ Anisocytosis 1+ Microcytosis 1+ Macrocytosis Not Reportable Spherocytes Not Reportable Pappenheimer Bodies Not Reportable Sickle Cells Not Reportable Target Cells Few Tear Drop Cells Rare Ovalocytes Few Helmet Cells Not Reportable [place] Bodies Not Reportable [place] Rings Not Reportable Aneesh Cells Not Reportable Bite Cells Not Reportable Crenated Cell Not Reportable Elliptocytes Not Reportable Acanthocytes (Spur) Not Reportable Rouleaux Not Reportable Hemoglobin C Crystals Not Reportable Schistocytes Not Reportable Malaria parasites Not Reportable Stef Bodies Not Reportable Hem Pathologist Commnt No Sodium Potassium Chloride Carbon Dioxide Anion Gap BUN Creatinine Estimated GFR BUN/Creatinine Ratio Glucose POC Glucose 135 H 160 H Calcium Phosphorus Magnesium Blood Type Antibody Screen Crossmatch 12/28/18 07:30 WBC RBC Hgb Hct MCV MCH MCHC RDW Plt Count Lymph % (Auto) Roberts % (Auto) Eos % (Auto) Baso % (Auto) Lymph # Roberts # Eos # Baso # Add Manual Diff Total Counted Seg Neutrophils % Seg Neuts % (Manual) Band Neutrophils % Lymphocytes % (Manual) Reactive Lymphs % (Man) Monocytes % (Manual) Eosinophils % (Manual) Basophils % (Manual) Metamyelocytes % Myelocytes % Promyelocytes % Blast Cells % Nucleated RBC % Seg Neutrophils # Seg Neutrophils # Man Band Neutrophils # Lymphocytes # (Manual) Abs React Lymphs (Man) Monocytes # (Manual) Eosinophils # (Manual) Basophils # (Manual) Metamyelocytes # Myelocytes # Promyelocytes # Blast Cells # WBC Morphology Hypersegmented Neuts Hyposegmented Neuts Hypogranular Neuts Smudge Cells Toxic Granulation Toxic Vacuolation Dohle Bodies Pelger-Huet Anomaly Mark Rods Platelet Estimate Clumped Platelets Plt Clumps, EDTA Large Platelets Giant Platelets Platelet Satelliting Plt Morphology Comment RBC Morphology Dimorphic RBCs Polychromasia Hypochromasia Poikilocytosis Anisocytosis Microcytosis Macrocytosis Spherocytes Pappenheimer Bodies Sickle Cells Target Cells Tear Drop Cells Ovalocytes Helmet Cells [place] Bodies [place] Rings Aneesh Cells Bite Cells Crenated Cell Elliptocytes Acanthocytes (Spur) Rouleaux Hemoglobin C Crystals Schistocytes Malaria parasites Stef Bodies Hem Pathologist Commnt Sodium 137 Potassium 3.9 Chloride 102.5 Carbon Dioxide 20 L Anion Gap 18 BUN 101 H Creatinine 2.8 H Estimated GFR 19 BUN/Creatinine Ratio 36 Glucose 155 H POC Glucose Calcium 6.5 L Phosphorus 7.40 H Magnesium 2.30 Blood Type Antibody Screen Crossmatch
--- NOTE | 2018-12-28 14:29 | Progress Note ---
Assessment and Plan - Patient Problems (1) Acute kidney failure with tubular necrosis Current Visit: Yes Status: Acute Plan to address problem: Labs noted and her renal function is stable. Overall prognosis is poor. Will monitor closely. On gentle hydration with just NS @ 50 cc/hr. Avoid nephrotoxins. (2) Acute post-hemorrhagic anemia Current Visit: Yes Status: Acute Plan to address problem: H/H is stable at this time. Continue to monitor, transfuse prn to maintain HgB>7.0 (3) Respiratory failure Current Visit: Yes Status: Acute Plan to address problem: Continues on ventilatory support, and further management per ICU/Pulmonary team. (4) Pericardial effusion without cardiac tamponade Current Visit: Yes Status: Acute Plan to address problem: s/p ECHO with findings not consistent with cardiac tamponade. Will continue to monitor, further recs per cardiology. (5) Encephalopathy Current Visit: Yes Status: Acute Plan to address problem: s/p EEG . Results reviewed. Further management per primary team. Patient remains comatose at this time Subjective Date of service: 12/28/18 Principal diagnosis: Rectal Bleed Interval history: Pt remains intubated, unresponsive Objective - Vital Signs Vital signs: Vital Signs - 12hr 12/28/18 12/28/18 12/28/18 03:01 03:33 04:00 Temperature 98.8 F Pulse Rate 109 H 108 H 80 Pulse Rate [ 80 From Monitor] Pulse Rate [ Throughout] Respiratory 18 18 Rate Respiratory Rate [ Throughout] Blood Pressure 116/46 139/34 166/75 O2 Sat by Pulse 100 100 100 Oximetry 12/28/18 12/28/18 12/28/18 04:21 04:30 04:41 Temperature Pulse Rate 114 H 97 H 104 H Pulse Rate [ From Monitor] Pulse Rate [ Throughout] Respiratory 18 18 18 Rate Respiratory Rate [ Throughout] Blood Pressure 154/53 157/56 157/56 O2 Sat by Pulse 100 100 100 Oximetry 12/28/18 12/28/18 12/28/18 04:51 05:00 05:11 Temperature Pulse Rate 83 67 70 Pulse Rate [ From Monitor] Pulse Rate [ Throughout] Respiratory 18 18 18 Rate Respiratory Rate [ Throughout] Blood Pressure 147/54 146/51 146/51 O2 Sat by Pulse 100 100 100 Oximetry 12/28/18 12/28/18 12/28/18 05:21 05:31 05:41 Temperature Pulse Rate 69 67 68 Pulse Rate [ From Monitor] Pulse Rate [ Throughout] Respiratory 18 18 18 Rate Respiratory Rate [ Throughout] Blood Pressure 145/48 155/50 155/50 O2 Sat by Pulse 100 100 100 Oximetry 12/28/18 12/28/18 12/28/18 06:00 07:00 08:00 Temperature 97.2 F L Pulse Rate 75 70 62 Pulse Rate [ 85 From Monitor] Pulse Rate [ Throughout] Respiratory 18 18 18 Rate Respiratory Rate [ Throughout] Blood Pressure 146/53 147/81 155/53 O2 Sat by Pulse 100 100 100 Oximetry 12/28/18 12/28/18 12/28/18 08:17 08:22 09:00 Temperature Pulse Rate 65 68 Pulse Rate [ From Monitor] Pulse Rate [ 68 Throughout] Respiratory 18 Rate Respiratory 18 Rate [ Throughout] Blood Pressure 143/54 136/43 O2 Sat by Pulse 100 100 Oximetry 12/28/18 12/28/18 12/28/18 09:06 10:01 11:01 Temperature Pulse Rate 69 64 61 Pulse Rate [ From Monitor] Pulse Rate [ Throughout] Respiratory 18 18 Rate Respiratory Rate [ Throughout] Blood Pressure 136/43 135/41 134/46 O2 Sat by Pulse 100 100 Oximetry 12/28/18 12/28/18 12/28/18 12:00 12:01 12:51 Temperature 96.0 F L Pulse Rate 62 62 67 Pulse Rate [ 72 From Monitor] Pulse Rate [ Throughout] Respiratory 18 18 Rate Respiratory Rate [ Throughout] Blood Pressure 150/46 169/91 O2 Sat by Pulse 100 100 100 Oximetry 12/28/18 13:07 Temperature Pulse Rate 67 Pulse Rate [ From Monitor] Pulse Rate [ Throughout] Respiratory Rate Respiratory Rate [ Throughout] Blood Pressure 141/41 O2 Sat by Pulse Oximetry - General Appearance General appearance: chronically ill, intubated EENT: ATNC, mucous membranes moist Neck: no JVD Respiratory: Present: Clear to Ascultation Cardiology: regular, S1S2 Gastrointestinal: normoactive bowel sounds Integumentary: no rash, other (+ 2 edema b/l LE ) Neurologic: other (on vent ) - Lab 12/28/18 07:30 12/28/18 07:30 Most recent lab results Calcium 6.5 mg/dL (8.4-10.2) L 12/28/18 07:30 Phosphorus 7.40 mg/dL (2.5-4.5) H 12/28/18 07:30 Magnesium 2.30 mg/dL (1.7-2.3) 12/28/18 07:30 Medications & Allergies - Medications Allergies/Adverse Reactions: Allergies Penicillins Allergy (Verified 12/08/18 13:13) Hives Home Medications: Home Medications Medication Instructions Recorded Confirmed Last Taken Type ALBUTEROL Inhaler (OR & NICU) 2 puff IH QID PRN #1 inhalation 12/21/16 12/08/18 Unknown Rx [Proair] Albuterol Sulfate [Albuterol 0.63% 0.63 mg IH TID PRN #90 ml 12/21/16 12/08/18 Unknown Rx NEBS] Amlodipine Besylate [Norvasc] 10 mg PO DAILY #90 tablet 12/21/16 12/08/18 Unknown Rx AtorvaSTATin [Lipitor] 20 mg PO QHS #90 tablet 12/21/16 12/08/18 Unknown Rx Hydralazine HCl [Apresoline TAB] 50 mg PO TID #90 tablet 12/21/16 12/08/18 Unknown Rx Metoprolol [Lopressor TAB] 25 mg PO BID #90 tablet 12/21/16 12/08/18 Unknown Rx Promethazine /Codeine 5 ml PO Q6H PRN #100 ml 12/21/16 12/08/18 Unknown Rx [Phenergan/Codeine 6.25-10 mg/5 ml] Active Medications: Generic Name Dose Route Start Last Admin Trade Name Freq PRN Reason Stop Dose Admin Acetaminophen 650 mg 12/09/18 01:00 12/28/18 00:24 Tylenol [place] 650 mg Q4H PRN Administration Pain MILD(1-3)/Fever >100.5/TURNER Albuterol 2.5 mg 12/09/18 00:31 Proventil IH Q4HRT PRN Shortness Of Breath Albuterol/Ipratropium 1 ampul 12/09/18 02:00 12/28/18 08:21 Duoneb *Not For Prn Use* IH 1 ampul Q6HRT KOLE Administration Amlodipine Besylate 10 mg 12/28/18 10:00 12/28/18 09:06 Norvasc PO 10 mg DAILY KOEL Administration Lipase/Protease/Amylase 1 each 12/09/18 04:05 Pancreaze 10,500 Unit FEEDTUBE PRN PRN For Clogged Feeding Tube Atorvastatin Calcium 20 mg 12/28/18 22:00 Lipitor PO QHS KOLE Dextrose 50 ml 12/24/18 00:42 12/24/18 00:30 D50w (25gm) Syringe IV 50 ml PRN PRN Administration Hypoglycemia Hydralazine HCl 50 mg 12/28/18 08:00 12/28/18 13:07 Apresoline PO 50 mg TID KOLE Administration Hydrophilic Ointment 1 applic 12/14/18 13:00 Vaseline Lip Therapy TP DIRECT PRN Dry tongue Norepinephrine 4 mg in 250 mls @ 7.5 mls/hr 12/18/18 18:00 12/19/18 18:00 Levophed Drip 4 Mg/Ns 250 Ml IV 0 mcg/min TITR KOLE 0 mls/hr Titration Protocol 2 MCG/MIN Sodium Chloride 1,000 mls @ 50 mls/hr 12/23/18 13:00 12/28/18 01:43 Nacl 0.9% 1000 Ml IV 50 mls/hr DIRECT KOLE Administration Insulin Human Lispro 0 unit 12/11/18 12:00 12/28/18 11:30 Humalog SUB-Q 3 unit Q6HR KOLE Administration Protocol Lansoprazole 30 mg 12/12/18 10:00 12/28/18 09:05 Prevacid Solutab FEEDTUBE 30 mg BID KOLE Administration Metoprolol Tartrate 25 mg 12/27/18 23:45 12/28/18 08:00 Lopressor PO 25 mg BID@0800,1700 KOLE Administration Midodrine 10 mg 12/18/18 19:01 12/28/18 11:26 Proamatine PO 10 mg TID@0800,1200,1600 KOLE Administration Multi-Ingred Cream/Lotion/Oil/Oint 1 applic 12/08/18 13:31 Artificial Tears Ophth Oint OU Q4HR PRN Dry Eye(s) Ondansetron HCl 4 mg 12/09/18 00:31 Zofran IV Q8H PRN Nausea And Vomiting Promethazine HCl/Codeine 5 ml 12/27/18 23:49 Phenergan/Codeine 6.25-10 Mg/5ml PO Q6H PRN cough Simple Syrup 15 ml 12/09/18 04:05 Simple Syrup FEEDTUBE PRN PRN Hypoglycemia Simple Syrup 30 ml 12/09/18 04:05 Simple Syrup FEEDTUBE PRN PRN Hypoglycemia Sodium Bicarbonate 325 mg 12/09/18 04:05 Sodium Bicarbonate FEEDTUBE PRN PRN For Clogged Feeding Tube Sodium Chloride 10 ml 12/09/18 10:00 12/28/18 09:06 Sodium Chloride Flush Syringe 10 Ml IV 10 ml BID KOLE Administration Sodium Chloride 10 ml 12/09/18 00:31 12/17/18 10:47 Sodium Chloride Flush Syringe 10 Ml IV 10 ml PRN PRN Administration LINE FLUSH
--- NOTE | 2018-12-28 15:38 | Event Note ---
Date: 12/28/18 I spoke with patient's grandsaint elizabeth edgewood/POA Renée Kessler over the telephone. I discussed the patient's current condition and reiterated her inability to wean from the vent due to apnea/comatose state. We discussed goals of care as well as placement of tracheostomy/PEG tube. I explained the procedures, risks, and benefits. I explained that although we can perform tracheostomy and PEG tube placement, it will not change the patient's outcome. 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 In addition, the procedures have potential risks including bleeding due to her low platelet count as well as . The patient has been given a poor prognosis by consultants who are on the case. I explained that I feel that the risks of the procedure outweigh the benefits at this time. Ms. Kessler was very responsive to this and understands. She wishes to have a meeting with her family members and to reach out to her aunt (patient's sister). At this point, she is agreeable to hold off on any procedures until she has spoken to family members. She states she will follow up in 1 week with a decision. I gave her my office phone number if she has any questions.
--- NOTE | 2018-12-28 15:48 | Progress Note ---
Assessment and Plan Imp: 1. UTI 2. Sepsis 3. Acute respiratory failure, hypoxia 4. MARYANN 5. Thrombocytopenia 6. Acute encephalopathy 7. Hx of CVA 8. Comatose Rec: 1. Prognosis is dismal; withdrawal of mechanical ventilation and palliative care would be the most appropriate management at this point, especially in light of apnea on PSV (she would require long-term ventilator facility until she dies); reviewed sample case porter notes -> Grand-daughter is primary decision maker as stated by patient's son; I had a long discussion with Opel the Grand-daughter, explained the extremely poor prognosis, and recommended hospice/palliative care; initially she requested trach/PEG anyway but per today's surgery note she is re- considering and will d/w family; will re-consult neurology to assist with prognostication (reconsulted Dr. Agosto who saw patient 2 weeks ago) 2. Off ABX 3. IVFs per renal 4. TFs, GI PPx 5. SCDs; would try to keep platelets greater than 20K; agree with hematology evaluation 6. Stopped Solumedrol as did not help tongue 7. Platelets are stable 8. Complex decision-making Subjective Date of service: 12/28/18 Principal diagnosis: Rectal Bleed Interval history: Hypothermic on warming blanket. 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 Not able to communicate. Comatose. Had some rectal bleeding that has stopped already, see GI note. Active Medications Acetaminophen (Tylenol) 650 mg MN Q4H PRN PRN Reason: Pain MILD(1-3)/Fever >100.5/TURNER Last Admin: 12/28/18 00:24 Dose: 650 mg Documented by: Albuterol (Proventil) 2.5 mg IH Q4HRT PRN PRN Reason: Shortness Of Breath Albuterol/Ipratropium (Duoneb *Not For Prn Use*) 1 ampul IH Q6HRT [facility] Last Admin: 12/28/18 14:40 Dose: 1 ampul Documented by: Amlodipine Besylate (Norvasc) 10 mg PO DAILY [facility] Last Admin: 12/28/18 09:06 Dose: 10 mg Documented by: Lipase/Protease/Amylase (Shakir Pena 10,500 Unit) 1 each FEEDTUBE PRN PRN PRN Reason: For Clogged Feeding Tube Atorvastatin Calcium (Lipitor) 20 mg PO QHS [facility] Dextrose (D50w (25gm) Syringe) 50 ml IV PRN PRN PRN Reason: Hypoglycemia Last Admin: 12/24/18 00:30 Dose: 50 ml Documented by: Hydralazine HCl (Apresoline) 50 mg PO TID [facility] Last Admin: 12/28/18 13:07 Dose: 50 mg Documented by: Hydrophilic Ointment (Vaseline Lip Therapy) 1 applic TP DIRECT PRN PRN Reason: Dry tongue Norepinephrine (Levophed Drip 4 Mg/Ns 250 Ml) 4 mg in 250 mls @ 7.5 mls/hr IV TITR [facility]; Protocol Last Titration: 12/19/18 18:00 Dose: 0 mcg/min, 0 mls/hr Documented by: Sodium Chloride (Nacl 0.9% 1000 Ml) 1,000 mls @ 50 mls/hr IV DIRECT KOLE Last Admin: 12/28/18 01:43 Dose: 50 mls/hr Documented by: Insulin Human Lispro (Humalog) 0 unit SUB-Q Q6HR [facility]; Protocol Last Admin: 12/28/18 11:30 Dose: 3 unit Documented by: Lansoprazole (Prevacid Solutab) 30 mg FEEDTUBE BID [facility] Last Admin: 12/28/18 09:05 Dose: 30 mg Documented by: Metoprolol Tartrate (Lopressor) 25 mg PO BID@0800,1700 [facility] Last Admin: 12/28/18 08:00 Dose: 25 mg Documented by: Midodrine (Proamatine) 10 mg PO TID@0800,1200,1600 [facility] Last Admin: 12/28/18 11:26 Dose: 10 mg Documented by: Multi-Ingred Cream/Lotion/Oil/Oint (Artificial Tears Ophth Oint) 1 applic OU Q4HR PRN PRN Reason: Dry Eye(s) Ondansetron HCl (Zofran) 4 mg IV Q8H PRN PRN Reason: Nausea And Vomiting Promethazine HCl/Codeine (Phenergan/Codeine 6.25-10 Mg/5ml) 5 ml PO Q6H PRN PRN Reason: cough Simple Syrup (Simple Syrup) 15 ml FEEDTUBE PRN PRN PRN Reason: Hypoglycemia Simple Syrup (Simple Syrup) 30 ml FEEDTUBE PRN PRN PRN Reason: Hypoglycemia Sodium Bicarbonate (Sodium Bicarbonate) 325 mg FEEDTUBE PRN PRN PRN Reason: For Clogged Feeding Tube Sodium Chloride (Sodium Chloride Flush Syringe 10 Ml) 10 ml IV BID KOLE Last Admin: 12/28/18 09:06 Dose: 10 ml Documented by: Sodium Chloride (Sodium Chloride Flush Syringe 10 Ml) 10 ml IV PRN PRN PRN Reason: LINE FLUSH Last Admin: 12/17/18 10:47 Dose: 10 ml Documented by: Objective Vital Signs - 12hr 12/28/18 12/28/18 12/28/18 04:00 04:21 04:30 Temperature 98.8 F Pulse Rate 80 114 H 97 H Pulse Rate [ 80 From Monitor] Pulse Rate [ Throughout] Respiratory 18 18 18 Rate Respiratory Rate [ Throughout] Blood Pressure 166/75 154/53 157/56 O2 Sat by Pulse 100 100 100 Oximetry 12/28/18 12/28/18 12/28/18 04:41 04:51 05:00 Temperature Pulse Rate 104 H 83 67 Pulse Rate [ From Monitor] Pulse Rate [ Throughout] Respiratory 18 18 18 Rate Respiratory Rate [ Throughout] Blood Pressure 157/56 147/54 146/51 O2 Sat by Pulse 100 100 100 Oximetry 12/28/18 12/28/18 12/28/18 05:11 05:21 05:31 Temperature Pulse Rate 70 69 67 Pulse Rate [ From Monitor] Pulse Rate [ Throughout] Respiratory 18 18 18 Rate Respiratory Rate [ Throughout] Blood Pressure 146/51 145/48 155/50 O2 Sat by Pulse 100 100 100 Oximetry 12/28/18 12/28/18 12/28/18 05:41 06:00 07:00 Temperature Pulse Rate 68 75 70 Pulse Rate [ From Monitor] Pulse Rate [ Throughout] Respiratory 18 18 18 Rate Respiratory Rate [ Throughout] Blood Pressure 155/50 146/53 147/81 O2 Sat by Pulse 100 100 100 Oximetry 12/28/18 12/28/18 12/28/18 08:00 08:17 08:22 Temperature 97.2 F L Pulse Rate 62 65 Pulse Rate [ 85 From Monitor] Pulse Rate [ 68 Throughout] Respiratory 18 Rate Respiratory 18 Rate [ Throughout] Blood Pressure 155/53 143/54 O2 Sat by Pulse 100 100 Oximetry 12/28/18 12/28/18 12/28/18 09:00 09:06 09:15 Temperature Pulse Rate 68 69 Pulse Rate [ From Monitor] Pulse Rate [ 70 Throughout] Respiratory 18 Rate Respiratory 18 Rate [ Throughout] Blood Pressure 136/43 136/43 O2 Sat by Pulse 100 Oximetry 12/28/18 12/28/18 12/28/18 10:01 11:01 12:00 Temperature 96.0 F L Pulse Rate 64 61 62 Pulse Rate [ 72 From Monitor] Pulse Rate [ Throughout] Respiratory 18 18 18 Rate Respiratory Rate [ Throughout] Blood Pressure 135/41 134/46 O2 Sat by Pulse 100 100 100 Oximetry 12/28/18 12/28/18 12/28/18 12:01 12:51 13:07 Temperature Pulse Rate 62 67 67 Pulse Rate [ From Monitor] Pulse Rate [ Throughout] Respiratory 18 Rate Respiratory Rate [ Throughout] Blood Pressure 150/46 169/91 141/41 O2 Sat by Pulse 100 100 Oximetry 12/28/18 12/28/18 12/28/18 14:40 15:17 15:18 Temperature Pulse Rate 61 Pulse Rate [ From Monitor] Pulse Rate [ 60 63 Throughout] Respiratory Rate Respiratory 18 18 Rate [ Throughout] Blood Pressure 145/41 O2 Sat by Pulse 100 Oximetry Constitutional: no acute distress, comatose, other (on vent cmv) Eyes: non-icteric ENT: oropharynx moist, other (ETT in position, large/edematous tongue) Neck: supple Effort: normal Ascultation: Bilateral: other (coarse BS bilaterally) Cardiovascular: regular rate and rhythm, other (pacemaker rhythm) Gastrointestinal: normoactive bowel sounds, non-distended Integumentary: normal Extremities: no cyanosis, no edema, pink and warm Neurologic: pupils equal and round, other (comatose, flaccid extremities, does not track or follow commands, + Cough, Apnea on PSV) Psychiatric: other (unable to assess) CBC and BMP: 12/28/18 07:30 12/28/18 07:30 ABG, PT/INR, D-dimer: ABG POC ABG pH 7.325 (7.35-7.45) L 12/15/18 03:37 POC ABG pCO2 28.6 (35-45) L 12/15/18 03:37 POC ABG pO2 105 (80-105) 12/15/18 03:37 POC ABG HCO3 14.9 12/15/18 03:37 POC ABG Total CO2 16 12/15/18 03:37 POC ABG O2 Sat 98 12/15/18 03:37 PT/INR, D-dimer PT 20.2 Sec. (12.2-14.9) H 12/12/18 08:00 INR 1.61 (0.87-1.13) H 12/12/18 08:00 Abnormal lab findings: Abnormal Labs 12/08/18 12/08/18 12/08/18 12:58 13:40 13:40 WBC RBC Hgb Hct MCV MCH RDW Plt Count Lymph % (Auto) Brown % (Auto) Lymph # Seg Neutrophils % Seg Neuts % (Manual) Lymphocytes % (Manual) Monocytes % (Manual) Nucleated RBC % Seg Neutrophils # Seg Neutrophils # Man Lymphocytes # (Manual) Monocytes # (Manual) PT INR POC ABG pH POC ABG pCO2 POC ABG pO2 Sodium Potassium Chloride Carbon Dioxide BUN Creatinine Glucose POC Glucose 143 H Lactic Acid Calcium Phosphorus Magnesium Total Bilirubin AST Alkaline Phosphatase Total Creatine Kinase C-Reactive Protein Total Protein Albumin TSH Free T4 Urine WBC (Auto) 157.0 H Crossmatch See Detail 12/08/18 12/08/18 12/08/18 13:40 13:40 13:40 WBC RBC 3.06 L Hgb 6.8 L Hct 21.1 L MCV 69 L MCH 22 L RDW 16.2 H Plt Count 56 L Lymph % (Auto) Brown % (Auto) Lymph # Seg Neutrophils % Seg Neuts % (Manual) Lymphocytes % (Manual) 2.0 L Monocytes % (Manual) Nucleated RBC % Seg Neutrophils # Seg Neutrophils # Man Lymphocytes # (Manual) 0.2 L Monocytes # (Manual) PT INR POC ABG pH POC ABG pCO2 POC ABG pO2 Sodium Potassium 3.2 L Chloride Carbon Dioxide 18 L BUN 64 H Creatinine 1.5 H Glucose 145 H POC Glucose Lactic Acid 4.00 H* Calcium 7.7 L Phosphorus Magnesium Total Bilirubin AST Alkaline Phosphatase Total Creatine Kinase 258 H C-Reactive Protein Total Protein 4.6 L Albumin 1.8 L TSH Free T4 Urine WBC (Auto) Crossmatch 12/08/18 12/08/18 12/08/18 14:29 15:21 16:06 WBC RBC Hgb Hct MCV MCH RDW Plt Count Lymph % (Auto) Brown % (Auto) Lymph # Seg Neutrophils % Seg Neuts % (Manual) Lymphocytes % (Manual) Monocytes % (Manual) Nucleated RBC % Seg Neutrophils # Seg Neutrophils # Man Lymphocytes # (Manual) Monocytes # (Manual) PT 20.5 H INR 1.64 H POC ABG pH POC ABG pCO2 34.2 L POC ABG pO2 465 H Sodium Potassium Chloride Carbon Dioxide BUN Creatinine Glucose POC Glucose Lactic Acid 3.00 H* Calcium Phosphorus Magnesium Total Bilirubin AST Alkaline Phosphatase Total Creatine Kinase C-Reactive Protein Total Protein Albumin TSH Free T4 Urine WBC (Auto) Crossmatch 12/09/18 12/09/18 12/09/18 02:31 05:36 05:36 WBC 14.5 H RBC Hgb Hct MCV 75 L MCH 25 L RDW 20.4 H Plt Count 68 L Lymph % (Auto) Brown % (Auto) Lymph # Seg Neutrophils % Seg Neuts % (Manual) 81.0 H Lymphocytes % (Manual) 1.0 L Monocytes % (Manual) Nucleated RBC % Seg Neutrophils # Seg Neutrophils # Man 11.7 H Lymphocytes # (Manual) 0.1 L Monocytes # (Manual) PT INR POC ABG pH POC ABG pCO2 POC ABG pO2 Sodium Potassium Chloride 107.6 H Carbon Dioxide 18 L BUN 75 H Creatinine 1.9 H Glucose 136 H POC Glucose 152 H Lactic Acid Calcium 7.9 L Phosphorus Magnesium Total Bilirubin 1.60 H AST 44 H Alkaline Phosphatase Total Creatine Kinase C-Reactive Protein Total Protein 5.2 L Albumin 2.4 L TSH Free T4 Urine WBC (Auto) Crossmatch 12/09/18 12/09/18 12/09/18 05:43 10:47 13:46 WBC RBC Hgb Hct MCV MCH RDW Plt Count Lymph % (Auto) Brown % (Auto) Lymph # Seg Neutrophils % Seg Neuts % (Manual) Lymphocytes % (Manual) Monocytes % (Manual) Nucleated RBC % Seg Neutrophils # Seg Neutrophils # Man Lymphocytes # (Manual) Monocytes # (Manual) PT INR POC ABG pH 7.308 L POC ABG pCO2 POC ABG pO2 183 H Sodium Potassium Chloride Carbon Dioxide BUN Creatinine Glucose POC Glucose 150 H 162 H Lactic Acid Calcium Phosphorus Magnesium Total Bilirubin AST Alkaline Phosphatase Total Creatine Kinase C-Reactive Protein Total Protein Albumin TSH Free T4 Urine WBC (Auto) Crossmatch 12/09/18 12/09/18 12/09/18 15:54 15:54 16:40 WBC RBC Hgb Hct MCV MCH RDW Plt Count Lymph % (Auto) Brown % (Auto) Lymph # Seg Neutrophils % Seg Neuts % (Manual) Lymphocytes % (Manual) Monocytes % (Manual) Nucleated RBC % Seg Neutrophils # Seg Neutrophils # Man Lymphocytes # (Manual) Monocytes # (Manual) PT INR POC ABG pH POC ABG pCO2 POC ABG pO2 Sodium Potassium Chloride Carbon Dioxide BUN Creatinine Glucose POC Glucose 197 H Lactic Acid Calcium Phosphorus Magnesium Total Bilirubin AST Alkaline Phosphatase Total Creatine Kinase C-Reactive Protein Total Protein Albumin TSH 0.268 L Free T4 0.58 L Urine WBC (Auto) Crossmatch 12/09/18 12/09/18 12/09/18 18:18 18:18 21:51 WBC RBC Hgb Hct MCV MCH RDW Plt Count Lymph % (Auto) Brown % (Auto) Lymph # Seg Neutrophils % Seg Neuts % (Manual) Lymphocytes % (Manual) Monocytes % (Manual) Nucleated RBC % Seg Neutrophils # Seg Neutrophils # Man Lymphocytes # (Manual) Monocytes # (Manual) PT INR POC ABG pH POC ABG pCO2 POC ABG pO2 Sodium Potassium Chloride 108.2 H Carbon Dioxide 16 L BUN 89 H Creatinine 2.3 H Glucose 180 H POC Glucose 198 H Lactic Acid Calcium 7.9 L Phosphorus Magnesium Total Bilirubin AST Alkaline Phosphatase Total Creatine Kinase C-Reactive Protein 19.60 H Total Protein Albumin TSH Free T4 Urine WBC (Auto) Crossmatch 12/10/18 12/10/18 12/10/18 01:59 04:14 04:38 WBC 11.5 H RBC Hgb Hct MCV 75 L MCH 25 L RDW 21.1 H Plt Count 81 L Lymph % (Auto) 5.6 L Brown % (Auto) Lymph # 0.6 L Seg Neutrophils % 89.8 H Seg Neuts % (Manual) Lymphocytes % (Manual) Monocytes % (Manual) Nucleated RBC % Seg Neutrophils # 10.3 H Seg Neutrophils # Man Lymphocytes # (Manual) Monocytes # (Manual) PT INR POC ABG pH 7.273 L POC ABG pCO2 32.1 L POC ABG pO2 161 H Sodium Potassium Chloride Carbon Dioxide BUN Creatinine Glucose POC Glucose 219 H Lactic Acid Calcium Phosphorus Magnesium Total Bilirubin AST Alkaline Phosphatase Total Creatine Kinase C-Reactive Protein Total Protein Albumin TSH Free T4 Urine WBC (Auto) Crossmatch 12/10/18 12/10/18 12/10/18 04:38 05:07 07:26 WBC RBC Hgb Hct MCV MCH RDW Plt Count Lymph % (Auto) Brown % (Auto) Lymph # Seg Neutrophils % Seg Neuts % (Manual) Lymphocytes % (Manual) Monocytes % (Manual) Nucleated RBC % Seg Neutrophils # Seg Neutrophils # Man Lymphocytes # (Manual) Monocytes # (Manual) PT INR POC ABG pH POC ABG pCO2 POC ABG pO2 Sodium Potassium Chloride 112.5 H Carbon Dioxide 14 L BUN 94 H Creatinine 2.4 H Glucose 207 H POC Glucose 221 H 212 H Lactic Acid Calcium 7.7 L Phosphorus Magnesium Total Bilirubin AST Alkaline Phosphatase Total Creatine Kinase C-Reactive Protein Total Protein Albumin TSH Free T4 Urine WBC (Auto) Crossmatch 12/10/18 12/10/18 12/10/18 10:40 11:15 14:21 WBC RBC Hgb Hct MCV MCH RDW Plt Count Lymph % (Auto) Brown % (Auto) Lymph # Seg Neutrophils % Seg Neuts % (Manual) Lymphocytes % (Manual) Monocytes % (Manual) Nucleated RBC % Seg Neutrophils # Seg Neutrophils # Man Lymphocytes # (Manual) Monocytes # (Manual) PT 21.4 H INR 1.73 H POC ABG pH 7.214 L POC ABG pCO2 32.8 L POC ABG pO2 Sodium Potassium Chloride Carbon Dioxide BUN Creatinine Glucose POC Glucose 227 H Lactic Acid Calcium Phosphorus Magnesium Total Bilirubin AST Alkaline Phosphatase Total Creatine Kinase C-Reactive Protein Total Protein Albumin TSH Free T4 Urine WBC (Auto) Crossmatch 12/10/18 12/10/18 12/11/18 15:47 22:38 03:36 WBC RBC Hgb Hct MCV MCH RDW Plt Count Lymph % (Auto) Brown % (Auto) Lymph # Seg Neutrophils % Seg Neuts % (Manual) Lymphocytes % (Manual) Monocytes % (Manual) Nucleated RBC % Seg Neutrophils # Seg Neutrophils # Man Lymphocytes # (Manual) Monocytes # (Manual) PT INR POC ABG pH POC ABG pCO2 26.2 L POC ABG pO2 138 H Sodium Potassium Chloride Carbon Dioxide BUN Creatinine Glucose POC Glucose 202 H 259 H Lactic Acid Calcium Phosphorus Magnesium Total Bilirubin AST Alkaline Phosphatase Total Creatine Kinase C-Reactive Protein Total Protein Albumin TSH Free T4 Urine WBC (Auto) Crossmatch 12/11/18 12/11/18 12/11/18 04:12 05:00 06:19 WBC RBC Hgb Hct MCV MCH RDW Plt Count Lymph % (Auto) Brown % (Auto) Lymph # Seg Neutrophils % Seg Neuts % (Manual) Lymphocytes % (Manual) Monocytes % (Manual) Nucleated RBC % Seg Neutrophils # Seg Neutrophils # Man Lymphocytes # (Manual) Monocytes # (Manual) PT 19.5 H INR 1.54 H POC ABG pH POC ABG pCO2 24.6 L POC ABG pO2 119 H Sodium Potassium Chloride Carbon Dioxide BUN Creatinine Glucose POC Glucose 174 H Lactic Acid Calcium Phosphorus Magnesium Total Bilirubin AST Alkaline Phosphatase Total Creatine Kinase C-Reactive Protein Total Protein Albumin TSH Free T4 Urine WBC (Auto) Crossmatch 12/11/18 12/11/18 12/11/18 11:10 11:10 18:10 WBC 14.3 H RBC Hgb Hct MCV 73 L MCH 24 L RDW 21.5 H Plt Count Lymph % (Auto) Brown % (Auto) Lymph # Seg Neutrophils % Seg Neuts % (Manual) Lymphocytes % (Manual) Monocytes % (Manual) Nucleated RBC % Seg Neutrophils # Seg Neutrophils # Man Lymphocytes # (Manual) Monocytes # (Manual) PT INR POC ABG pH POC ABG pCO2 POC ABG pO2 Sodium Potassium Chloride 110.5 H Carbon Dioxide 15 L BUN 101 H Creatinine 2.4 H Glucose 119 H POC Glucose 147 H Lactic Acid Calcium 7.7 L Phosphorus Magnesium Total Bilirubin AST Alkaline Phosphatase Total Creatine Kinase C-Reactive Protein Total Protein Albumin TSH Free T4 Urine WBC (Auto) Crossmatch 12/11/18 12/12/18 12/12/18 23:25 05:37 06:03 WBC RBC Hgb Hct MCV MCH RDW Plt Count Lymph % (Auto) Brown % (Auto) Lymph # Seg Neutrophils % Seg Neuts % (Manual) Lymphocytes % (Manual) Monocytes % (Manual) Nucleated RBC % Seg Neutrophils # Seg Neutrophils # Man Lymphocytes # (Manual) Monocytes # (Manual) PT INR POC ABG pH 7.346 L POC ABG pCO2 28.3 L POC ABG pO2 120 H Sodium Potassium Chloride Carbon Dioxide BUN Creatinine Glucose POC Glucose 143 H 154 H Lactic Acid Calcium Phosphorus Magnesium Total Bilirubin AST Alkaline Phosphatase Total Creatine Kinase C-Reactive Protein Total Protein Albumin TSH Free T4 Urine WBC (Auto) Crossmatch 12/12/18 12/12/18 12/12/18 08:00 08:00 08:00 WBC 16.2 H RBC Hgb Hct MCV 74 L MCH 25 L RDW 21.9 H Plt Count 21 L Lymph % (Auto) Brown % (Auto) Lymph # Seg Neutrophils % Seg Neuts % (Manual) Lymphocytes % (Manual) Monocytes % (Manual) Nucleated RBC % Seg Neutrophils # Seg Neutrophils # Man Lymphocytes # (Manual) Monocytes # (Manual) PT 20.2 H INR 1.61 H POC ABG pH POC ABG pCO2 POC ABG pO2 Sodium Potassium Chloride 107.4 H Carbon Dioxide 16 L BUN 101 H Creatinine 2.3 H Glucose 169 H POC Glucose Lactic Acid Calcium 8.2 L Phosphorus Magnesium Total Bilirubin AST Alkaline Phosphatase Total Creatine Kinase C-Reactive Protein Total Protein Albumin TSH Free T4 Urine WBC (Auto) Crossmatch 12/12/18 12/12/18 12/13/18 12:59 18:01 04:28 WBC 18.6 H RBC Hgb Hct MCV 74 L MCH 24 L RDW 21.8 H Plt Count 34 L Lymph % (Auto) Brown % (Auto) Lymph # Seg Neutrophils % Seg Neuts % (Manual) 97.0 H Lymphocytes % (Manual) 2.0 L Monocytes % (Manual) Nucleated RBC % 1.0 H Seg Neutrophils # Seg Neutrophils # Man 18.0 H Lymphocytes # (Manual) 0.4 L Monocytes # (Manual) PT INR POC ABG pH POC ABG pCO2 POC ABG pO2 Sodium Potassium Chloride Carbon Dioxide BUN Creatinine Glucose POC Glucose 158 H 123 H Lactic Acid Calcium Phosphorus Magnesium Total Bilirubin AST Alkaline Phosphatase Total Creatine Kinase C-Reactive Protein Total Protein Albumin TSH Free T4 Urine WBC (Auto) Crossmatch 12/13/18 12/13/18 12/13/18 04:28 04:45 19:17 WBC RBC Hgb Hct MCV MCH RDW Plt Count Lymph % (Auto) Brown % (Auto) Lymph # Seg Neutrophils % Seg Neuts % (Manual) Lymphocytes % (Manual) Monocytes % (Manual) Nucleated RBC % Seg Neutrophils # Seg Neutrophils # Man Lymphocytes # (Manual) Monocytes # (Manual) PT INR POC ABG pH 7.327 L POC ABG pCO2 31.1 L POC ABG pO2 136 H Sodium Potassium Chloride 112.0 H Carbon Dioxide 17 L BUN 97 H Creatinine 2.2 H Glucose POC Glucose 106 H Lactic Acid Calcium 8.1 L Phosphorus Magnesium Total Bilirubin AST Alkaline Phosphatase Total Creatine Kinase C-Reactive Protein Total Protein Albumin TSH Free T4 Urine WBC (Auto) Crossmatch 12/13/18 12/14/18 12/14/18 23:24 03:35 03:35 WBC 22.0 H RBC Hgb Hct MCV 75 L MCH 24 L RDW 22.2 H Plt Count 44 L Lymph % (Auto) Brown % (Auto) Lymph # Seg Neutrophils % Seg Neuts % (Manual) 96.0 H Lymphocytes % (Manual) 3.0 L Monocytes % (Manual) Nucleated RBC % Seg Neutrophils # Seg Neutrophils # Man 21.1 H Lymphocytes # (Manual) 0.7 L Monocytes # (Manual) PT INR POC ABG pH POC ABG pCO2 POC ABG pO2 Sodium 136 L Potassium Chloride 107.2 H Carbon Dioxide 15 L BUN 87 H Creatinine 1.7 H Glucose 156 H POC Glucose 108 H Lactic Acid Calcium 7.7 L Phosphorus Magnesium Total Bilirubin AST Alkaline Phosphatase Total Creatine Kinase C-Reactive Protein Total Protein Albumin TSH Free T4 Urine WBC (Auto) Crossmatch 12/14/18 12/14/18 12/14/18 04:58 05:37 12:10 WBC RBC Hgb Hct MCV MCH RDW Plt Count Lymph % (Auto) Brown % (Auto) Lymph # Seg Neutrophils % Seg Neuts % (Manual) Lymphocytes % (Manual) Monocytes % (Manual) Nucleated RBC % Seg Neutrophils # Seg Neutrophils # Man Lymphocytes # (Manual) Monocytes # (Manual) PT INR POC ABG pH 7.301 L POC ABG pCO2 32.6 L POC ABG pO2 138 H Sodium Potassium Chloride Carbon Dioxide BUN Creatinine Glucose POC Glucose 178 H 208 H Lactic Acid Calcium Phosphorus Magnesium Total Bilirubin AST Alkaline Phosphatase Total Creatine Kinase C-Reactive Protein Total Protein Albumin TSH Free T4 Urine WBC (Auto) Crossmatch 12/14/18 12/14/18 12/15/18 17:44 23:16 03:37 WBC RBC Hgb Hct MCV MCH RDW Plt Count Lymph % (Auto) Brown % (Auto) Lymph # Seg Neutrophils % Seg Neuts % (Manual) Lymphocytes % (Manual) Monocytes % (Manual) Nucleated RBC % Seg Neutrophils # Seg Neutrophils # Man Lymphocytes # (Manual) Monocytes # (Manual) PT INR POC ABG pH 7.325 L POC ABG pCO2 28.6 L POC ABG pO2 Sodium Potassium Chloride Carbon Dioxide BUN Creatinine Glucose POC Glucose 172 H 123 H Lactic Acid Calcium Phosphorus Magnesium Total Bilirubin AST Alkaline Phosphatase Total Creatine Kinase C-Reactive Protein Total Protein Albumin TSH Free T4 Urine WBC (Auto) Crossmatch 12/15/18 12/15/18 12/15/18 05:30 05:30 05:43 WBC 20.1 H RBC Hgb 9.5 L Hct 29.2 L MCV 74 L MCH 24 L RDW 22.7 H Plt Count 48 L Lymph % (Auto) Brown % (Auto) Lymph # Seg Neutrophils % Seg Neuts % (Manual) 96.0 H Lymphocytes % (Manual) 1.0 L Monocytes % (Manual) Nucleated RBC % Seg Neutrophils # Seg Neutrophils # Man 19.3 H Lymphocytes # (Manual) 0.2 L Monocytes # (Manual) PT INR POC ABG pH POC ABG pCO2 POC ABG pO2 Sodium Potassium Chloride 110.8 H Carbon Dioxide 17 L BUN 83 H Creatinine 1.6 H Glucose 150 H POC Glucose 151 H Lactic Acid Calcium 7.7 L Phosphorus Magnesium Total Bilirubin AST Alkaline Phosphatase Total Creatine Kinase C-Reactive Protein Total Protein Albumin TSH Free T4 Urine WBC (Auto) Crossmatch 12/15/18 12/15/18 12/16/18 12:56 18:21 00:10 WBC RBC Hgb Hct MCV MCH RDW Plt Count Lymph % (Auto) Brown % (Auto) Lymph # Seg Neutrophils % Seg Neuts % (Manual) Lymphocytes % (Manual) Monocytes % (Manual) Nucleated RBC % Seg Neutrophils # Seg Neutrophils # Man Lymphocytes # (Manual) Monocytes # (Manual) PT INR POC ABG pH POC ABG pCO2 POC ABG pO2 Sodium Potassium Chloride Carbon Dioxide BUN Creatinine Glucose POC Glucose 190 H 143 H 174 H Lactic Acid Calcium Phosphorus Magnesium Total Bilirubin AST Alkaline Phosphatase Total Creatine Kinase C-Reactive Protein Total Protein Albumin TSH Free T4 Urine WBC (Auto) Crossmatch 12/16/18 12/16/18 12/16/18 05:24 05:30 05:30 WBC 17.1 H RBC Hgb 9.1 L Hct 28.8 L MCV 76 L MCH 24 L RDW 23.5 H Plt Count 37 L Lymph % (Auto) Brown % (Auto) Lymph # Seg Neutrophils % Seg Neuts % (Manual) Lymphocytes % (Manual) 9.0 L Monocytes % (Manual) 9.0 H Nucleated RBC % Seg Neutrophils # Seg Neutrophils # Man 9.6 H Lymphocytes # (Manual) Monocytes # (Manual) 1.5 H PT INR POC ABG pH POC ABG pCO2 POC ABG pO2 Sodium Potassium Chloride 110.8 H Carbon Dioxide 15 L BUN 81 H Creatinine 1.6 H Glucose 161 H POC Glucose 154 H Lactic Acid Calcium 7.6 L Phosphorus Magnesium Total Bilirubin AST Alkaline Phosphatase Total Creatine Kinase C-Reactive Protein Total Protein Albumin TSH Free T4 Urine WBC (Auto) Crossmatch 12/16/18 12/16/18 12/16/18 12:31 17:42 21:56 WBC RBC Hgb Hct MCV MCH RDW Plt Count Lymph % (Auto) Brown % (Auto) Lymph # Seg Neutrophils % Seg Neuts % (Manual) Lymphocytes % (Manual) Monocytes % (Manual) Nucleated RBC % Seg Neutrophils # Seg Neutrophils # Man Lymphocytes # (Manual) Monocytes # (Manual) PT INR POC ABG pH POC ABG pCO2 POC ABG pO2 Sodium Potassium Chloride Carbon Dioxide BUN Creatinine Glucose POC Glucose 172 H 173 H 118 H Lactic Acid Calcium Phosphorus Magnesium Total Bilirubin AST Alkaline Phosphatase Total Creatine Kinase C-Reactive Protein Total Protein Albumin TSH Free T4 Urine WBC (Auto) Crossmatch 12/16/18 12/17/18 12/17/18 23:38 04:24 04:24 WBC 19.2 H RBC Hgb 9.5 L Hct 29.7 L MCV 76 L MCH 24 L RDW 24.4 H Plt Count 26 L Lymph % (Auto) Brown % (Auto) Lymph # Seg Neutrophils % Seg Neuts % (Manual) Lymphocytes % (Manual) 6.0 L Monocytes % (Manual) Nucleated RBC % Seg Neutrophils # Seg Neutrophils # Man 13.1 H Lymphocytes # (Manual) Monocytes # (Manual) PT INR POC ABG pH POC ABG pCO2 POC ABG pO2 Sodium 134 L Potassium Chloride 110.0 H Carbon Dioxide 14 L BUN 83 H Creatinine 1.6 H Glucose POC Glucose 109 H Lactic Acid Calcium 7.8 L Phosphorus Magnesium Total Bilirubin AST Alkaline Phosphatase Total Creatine Kinase C-Reactive Protein Total Protein Albumin TSH Free T4 Urine WBC (Auto) Crossmatch 12/17/18 12/17/18 12/18/18 06:42 17:49 00:40 WBC RBC Hgb Hct MCV MCH RDW Plt Count Lymph % (Auto) Brown % (Auto) Lymph # Seg Neutrophils % Seg Neuts % (Manual) Lymphocytes % (Manual) Monocytes % (Manual) Nucleated RBC % Seg Neutrophils # Seg Neutrophils # Man Lymphocytes # (Manual) Monocytes # (Manual) PT INR POC ABG pH POC ABG pCO2 POC ABG pO2 Sodium Potassium Chloride 113.1 H Carbon Dioxide 13 L BUN 82 H Creatinine 1.6 H Glucose POC Glucose 66 L 109 H Lactic Acid Calcium 8.0 L Phosphorus Magnesium Total Bilirubin AST Alkaline Phosphatase Total Creatine Kinase C-Reactive Protein Total Protein Albumin TSH Free T4 Urine WBC (Auto) Crossmatch 12/18/18 12/18/18 12/18/18 04:08 04:08 12:45 WBC 26.5 H RBC 3.63 L Hgb 8.7 L Hct 26.8 L MCV 74 L MCH 24 L RDW 23.3 H Plt Count 24 L Lymph % (Auto) Brown % (Auto) Lymph # Seg Neutrophils % Seg Neuts % (Manual) Lymphocytes % (Manual) Monocytes % (Manual) Nucleated RBC % Seg Neutrophils # Seg Neutrophils # Man Lymphocytes # (Manual) Monocytes # (Manual) PT INR POC ABG pH POC ABG pCO2 POC ABG pO2 Sodium Potassium Chloride 114.3 H Carbon Dioxide 16 L BUN 82 H Creatinine 1.7 H Glucose POC Glucose 117 H Lactic Acid Calcium 7.8 L Phosphorus 5.10 H Magnesium Total Bilirubin AST Alkaline Phosphatase Total Creatine Kinase C-Reactive Protein Total Protein Albumin TSH Free T4 Urine WBC (Auto) Crossmatch 12/18/18 12/18/18 12/19/18 17:42 23:39 04:22 WBC 20.4 H RBC 3.01 L Hgb 7.2 L Hct 22.6 L MCV 75 L MCH 24 L RDW 24.5 H Plt Count 52 L D Lymph % (Auto) Brown % (Auto) Lymph # Seg Neutrophils % Seg Neuts % (Manual) Lymphocytes % (Manual) Monocytes % (Manual) Nucleated RBC % Seg Neutrophils # Seg Neutrophils # Man Lymphocytes # (Manual) Monocytes # (Manual) PT INR POC ABG pH POC ABG pCO2 POC ABG pO2 Sodium Potassium Chloride Carbon Dioxide BUN Creatinine Glucose POC Glucose 121 H 184 H Lactic Acid Calcium Phosphorus Magnesium Total Bilirubin AST Alkaline Phosphatase Total Creatine Kinase C-Reactive Protein Total Protein Albumin TSH Free T4 Urine WBC (Auto) Crossmatch 12/19/18 12/19/18 12/19/18 04:22 12:43 18:12 WBC RBC Hgb Hct MCV MCH RDW Plt Count Lymph % (Auto) Brown % (Auto) Lymph # Seg Neutrophils % Seg Neuts % (Manual) Lymphocytes % (Manual) Monocytes % (Manual) Nucleated RBC % Seg Neutrophils # Seg Neutrophils # Man Lymphocytes # (Manual) Monocytes # (Manual) PT INR POC ABG pH POC ABG pCO2 POC ABG pO2 Sodium Potassium Chloride 112.9 H Carbon Dioxide 15 L BUN 76 H Creatinine 1.8 H Glucose 107 H POC Glucose 141 H 227 H Lactic Acid Calcium 7.4 L Phosphorus Magnesium Total Bilirubin AST Alkaline Phosphatase Total Creatine Kinase C-Reactive Protein Total Protein Albumin TSH Free T4 Urine WBC (Auto) Crossmatch 12/19/18 12/19/18 12/20/18 23:55 Unknown 03:07 WBC 15.7 H RBC 2.92 L Hgb 7.2 L 7.1 L Hct 22.2 L 21.6 L MCV 74 L MCH 24 L RDW 24.3 H Plt Count 23 L Lymph % (Auto) Brown % (Auto) Lymph # Seg Neutrophils % Seg Neuts % (Manual) Lymphocytes % (Manual) Monocytes % (Manual) Nucleated RBC % Seg Neutrophils # Seg Neutrophils # Man Lymphocytes # (Manual) Monocytes # (Manual) PT INR POC ABG pH POC ABG pCO2 POC ABG pO2 Sodium Potassium Chloride Carbon Dioxide BUN Creatinine Glucose POC Glucose 174 H Lactic Acid Calcium Phosphorus Magnesium Total Bilirubin AST Alkaline Phosphatase Total Creatine Kinase C-Reactive Protein Total Protein Albumin TSH Free T4 Urine WBC (Auto) Crossmatch 12/20/18 12/20/18 12/20/18 03:07 05:20 11:00 WBC RBC Hgb Hct MCV MCH RDW Plt Count Lymph % (Auto) Brown % (Auto) Lymph # Seg Neutrophils % Seg Neuts % (Manual) Lymphocytes % (Manual) Monocytes % (Manual) Nucleated RBC % Seg Neutrophils # Seg Neutrophils # Man Lymphocytes # (Manual) Monocytes # (Manual) PT INR POC ABG pH POC ABG pCO2 POC ABG pO2 Sodium 136 L Potassium Chloride Carbon Dioxide 20 L BUN 79 H Creatinine 2.1 H Glucose 141 H POC Glucose 210 H Lactic Acid Calcium 7.5 L Phosphorus Magnesium Total Bilirubin AST Alkaline Phosphatase Total Creatine Kinase C-Reactive Protein Total Protein Albumin TSH Free T4 Urine WBC (Auto) Crossmatch See Detail 12/20/18 12/20/18 12/21/18 11:40 17:51 00:33 WBC RBC Hgb Hct MCV MCH RDW Plt Count Lymph % (Auto) Brown % (Auto) Lymph # Seg Neutrophils % Seg Neuts % (Manual) Lymphocytes % (Manual) Monocytes % (Manual) Nucleated RBC % Seg Neutrophils # Seg Neutrophils # Man Lymphocytes # (Manual) Monocytes # (Manual) PT INR POC ABG pH POC ABG pCO2 POC ABG pO2 Sodium Potassium Chloride Carbon Dioxide BUN Creatinine Glucose POC Glucose 183 H 150 H 119 H Lactic Acid Calcium Phosphorus Magnesium Total Bilirubin AST Alkaline Phosphatase Total Creatine Kinase C-Reactive Protein Total Protein Albumin TSH Free T4 Urine WBC (Auto) Crossmatch 12/21/18 12/21/18 12/21/18 05:05 07:19 07:19 WBC 11.9 H RBC 2.83 L Hgb 6.9 L Hct 20.7 L MCV 73 L MCH 24 L RDW 23.9 H Plt Count 11 L* Lymph % (Auto) Brown % (Auto) Lymph # Seg Neutrophils % Seg Neuts % (Manual) Lymphocytes % (Manual) Monocytes % (Manual) Nucleated RBC % Seg Neutrophils # Seg Neutrophils # Man Lymphocytes # (Manual) Monocytes # (Manual) PT INR POC ABG pH POC ABG pCO2 POC ABG pO2 Sodium 135 L Potassium Chloride Carbon Dioxide 21 L BUN 78 H Creatinine 2.3 H Glucose 143 H POC Glucose 165 H Lactic Acid Calcium 7.3 L Phosphorus Magnesium Total Bilirubin AST Alkaline Phosphatase Total Creatine Kinase C-Reactive Protein Total Protein Albumin TSH Free T4 Urine WBC (Auto) Crossmatch 12/21/18 12/21/18 12/21/18 11:55 17:39 18:00 WBC RBC Hgb 7.9 L Hct 23.8 L MCV MCH RDW Plt Count Lymph % (Auto) Brown % (Auto) Lymph # Seg Neutrophils % Seg Neuts % (Manual) Lymphocytes % (Manual) Monocytes % (Manual) Nucleated RBC % Seg Neutrophils # Seg Neutrophils # Man Lymphocytes # (Manual) Monocytes # (Manual) PT INR POC ABG pH POC ABG pCO2 POC ABG pO2 Sodium Potassium Chloride Carbon Dioxide BUN Creatinine Glucose POC Glucose 125 H 108 H Lactic Acid Calcium Phosphorus Magnesium Total Bilirubin AST Alkaline Phosphatase Total Creatine Kinase C-Reactive Protein Total Protein Albumin TSH Free T4 Urine WBC (Auto) Crossmatch 12/21/18 12/22/18 12/22/18 23:55 05:35 05:35 WBC 11.8 H RBC Hgb 9.4 L Hct 28.3 L MCV 76 L MCH 25 L RDW 24.5 H Plt Count 26 L D Lymph % (Auto) Brown % (Auto) Lymph # Seg Neutrophils % Seg Neuts % (Manual) Lymphocytes % (Manual) Monocytes % (Manual) Nucleated RBC % Seg Neutrophils # Seg Neutrophils # Man Lymphocytes # (Manual) Monocytes # (Manual) PT INR POC ABG pH POC ABG pCO2 POC ABG pO2 Sodium 132 L Potassium Chloride Carbon Dioxide 21 L BUN 79 H Creatinine 2.3 H Glucose 131 H POC Glucose 126 H Lactic Acid Calcium 7.4 L Phosphorus Magnesium Total Bilirubin AST Alkaline Phosphatase Total Creatine Kinase C-Reactive Protein Total Protein Albumin TSH Free T4 Urine WBC (Auto) Crossmatch 12/22/18 12/22/18 12/22/18 06:34 11:39 17:29 WBC RBC Hgb Hct MCV MCH RDW Plt Count Lymph % (Auto) Brown % (Auto) Lymph # Seg Neutrophils % Seg Neuts % (Manual) Lymphocytes % (Manual) Monocytes % (Manual) Nucleated RBC % Seg Neutrophils # Seg Neutrophils # Man Lymphocytes # (Manual) Monocytes # (Manual) PT INR POC ABG pH POC ABG pCO2 POC ABG pO2 Sodium Potassium Chloride Carbon Dioxide BUN Creatinine Glucose POC Glucose 126 H 176 H 180 H Lactic Acid Calcium Phosphorus Magnesium Total Bilirubin AST Alkaline Phosphatase Total Creatine Kinase C-Reactive Protein Total Protein Albumin TSH Free T4 Urine WBC (Auto) Crossmatch 12/22/18 12/23/18 12/23/18 23:19 05:56 08:50 WBC RBC Hgb Hct MCV MCH RDW Plt Count Lymph % (Auto) Brown % (Auto) Lymph # Seg Neutrophils % Seg Neuts % (Manual) Lymphocytes % (Manual) Monocytes % (Manual) Nucleated RBC % Seg Neutrophils # Seg Neutrophils # Man Lymphocytes # (Manual) Monocytes # (Manual) PT INR POC ABG pH POC ABG pCO2 POC ABG pO2 Sodium 134 L Potassium Chloride Carbon Dioxide BUN 80 H Creatinine 2.4 H Glucose 133 H POC Glucose 135 H 174 H Lactic Acid Calcium 7.0 L Phosphorus Magnesium Total Bilirubin AST Alkaline Phosphatase Total Creatine Kinase C-Reactive Protein Total Protein Albumin TSH Free T4 Urine WBC (Auto) Crossmatch 12/23/18 12/23/18 12/24/18 08:50 11:18 00:18 WBC RBC 3.29 L Hgb 8.5 L Hct 24.9 L MCV 76 L MCH 26 L RDW 24.9 H Plt Count 7 L* Lymph % (Auto) Brown % (Auto) Lymph # Seg Neutrophils % Seg Neuts % (Manual) Lymphocytes % (Manual) Monocytes % (Manual) Nucleated RBC % Seg Neutrophils # Seg Neutrophils # Man Lymphocytes # (Manual) Monocytes # (Manual) PT INR POC ABG pH POC ABG pCO2 POC ABG pO2 Sodium Potassium Chloride Carbon Dioxide BUN Creatinine Glucose POC Glucose 164 H 64 L Lactic Acid Calcium Phosphorus Magnesium Total Bilirubin AST Alkaline Phosphatase Total Creatine Kinase C-Reactive Protein Total Protein Albumin TSH Free T4 Urine WBC (Auto) Crossmatch 12/24/18 12/24/18 12/24/18 00:56 06:00 06:00 WBC RBC Hgb 9.7 L Hct 29.1 L MCV 76 L MCH 25 L RDW 24.9 H Plt Count 30 L D Lymph % (Auto) Brown % (Auto) Lymph # Seg Neutrophils % Seg Neuts % (Manual) 86.0 H Lymphocytes % (Manual) 0 L Monocytes % (Manual) Nucleated RBC % Seg Neutrophils # Seg Neutrophils # Man 9.1 H Lymphocytes # (Manual) 0.0 L Monocytes # (Manual) PT INR POC ABG pH POC ABG pCO2 POC ABG pO2 Sodium 132 L Potassium Chloride Carbon Dioxide BUN 79 H Creatinine 2.4 H Glucose 117 H POC Glucose 162 H Lactic Acid Calcium 7.5 L Phosphorus Magnesium Total Bilirubin AST 48 H Alkaline Phosphatase 252 H Total Creatine Kinase C-Reactive Protein Total Protein 5.5 L Albumin 1.6 L TSH Free T4 Urine WBC (Auto) Crossmatch 12/24/18 12/24/18 12/24/18 06:00 12:03 18:45 WBC RBC Hgb Hct MCV MCH RDW Plt Count Lymph % (Auto) Brown % (Auto) Lymph # Seg Neutrophils % Seg Neuts % (Manual) Lymphocytes % (Manual) Monocytes % (Manual) Nucleated RBC % Seg Neutrophils # Seg Neutrophils # Man Lymphocytes # (Manual) Monocytes # (Manual) PT INR POC ABG pH POC ABG pCO2 POC ABG pO2 Sodium Potassium Chloride Carbon Dioxide BUN Creatinine Glucose POC Glucose 153 H 133 H Lactic Acid Calcium Phosphorus 6.60 H Magnesium 2.40 H Total Bilirubin AST Alkaline Phosphatase Total Creatine Kinase C-Reactive Protein Total Protein Albumin TSH Free T4 Urine WBC (Auto) Crossmatch 12/24/18 12/25/18 12/25/18 23:08 06:36 12:05 WBC RBC Hgb Hct MCV MCH RDW Plt Count Lymph % (Auto) Brown % (Auto) Lymph # Seg Neutrophils % Seg Neuts % (Manual) Lymphocytes % (Manual) Monocytes % (Manual) Nucleated RBC % Seg Neutrophils # Seg Neutrophils # Man Lymphocytes # (Manual) Monocytes # (Manual) PT INR POC ABG pH POC ABG pCO2 POC ABG pO2 Sodium Potassium Chloride Carbon Dioxide BUN Creatinine Glucose POC Glucose 125 H 176 H 161 H Lactic Acid Calcium Phosphorus Magnesium Total Bilirubin AST Alkaline Phosphatase Total Creatine Kinase C-Reactive Protein Total Protein Albumin TSH Free T4 Urine WBC (Auto) Crossmatch 12/25/18 12/26/18 12/26/18 18:33 00:07 05:09 WBC RBC Hgb Hct MCV MCH RDW Plt Count Lymph % (Auto) Brown % (Auto) Lymph # Seg Neutrophils % Seg Neuts % (Manual) Lymphocytes % (Manual) Monocytes % (Manual) Nucleated RBC % Seg Neutrophils # Seg Neutrophils # Man Lymphocytes # (Manual) Monocytes # (Manual) PT INR POC ABG pH POC ABG pCO2 POC ABG pO2 Sodium Potassium Chloride Carbon Dioxide BUN Creatinine Glucose POC Glucose 237 H 178 H 171 H Lactic Acid Calcium Phosphorus Magnesium Total Bilirubin AST Alkaline Phosphatase Total Creatine Kinase C-Reactive Protein Total Protein Albumin TSH Free T4 Urine WBC (Auto) Crossmatch 12/26/18 12/26/18 12/26/18 11:27 17:52 23:39 WBC RBC Hgb Hct MCV MCH RDW Plt Count Lymph % (Auto) Brown % (Auto) Lymph # Seg Neutrophils % Seg Neuts % (Manual) Lymphocytes % (Manual) Monocytes % (Manual) Nucleated RBC % Seg Neutrophils # Seg Neutrophils # Man Lymphocytes # (Manual) Monocytes # (Manual) PT INR POC ABG pH POC ABG pCO2 POC ABG pO2 Sodium Potassium Chloride Carbon Dioxide BUN Creatinine Glucose POC Glucose 205 H 166 H 122 H Lactic Acid Calcium Phosphorus Magnesium Total Bilirubin AST Alkaline Phosphatase Total Creatine Kinase C-Reactive Protein Total Protein Albumin TSH Free T4 Urine WBC (Auto) Crossmatch 12/27/18 12/27/18 12/27/18 06:21 14:29 16:20 WBC RBC 3.01 L Hgb 7.6 L Hct 23.0 L MCV 76 L MCH 25 L RDW 24.4 H Plt Count 28 L Lymph % (Auto) 8.9 L Brown % (Auto) 7.4 H Lymph # 0.6 L Seg Neutrophils % 83.4 H Seg Neuts % (Manual) Lymphocytes % (Manual) Monocytes % (Manual) Nucleated RBC % Seg Neutrophils # Seg Neutrophils # Man Lymphocytes # (Manual) Monocytes # (Manual) PT INR POC ABG pH POC ABG pCO2 POC ABG pO2 Sodium Potassium Chloride Carbon Dioxide BUN Creatinine Glucose POC Glucose 174 H 197 H Lactic Acid Calcium Phosphorus Magnesium Total Bilirubin AST Alkaline Phosphatase Total Creatine Kinase C-Reactive Protein Total Protein Albumin TSH Free T4 Urine WBC (Auto) Crossmatch 12/27/18 12/27/18 12/27/18 16:20 17:42 20:16 WBC RBC Hgb Hct MCV MCH RDW Plt Count Lymph % (Auto) Brown % (Auto) Lymph # Seg Neutrophils % Seg Neuts % (Manual) Lymphocytes % (Manual) Monocytes % (Manual) Nucleated RBC % Seg Neutrophils # Seg Neutrophils # Man Lymphocytes # (Manual) Monocytes # (Manual) PT INR POC ABG pH POC ABG pCO2 POC ABG pO2 Sodium Potassium Chloride Carbon Dioxide 21 L BUN 106 H Creatinine 3.0 H Glucose 184 H POC Glucose 211 H Lactic Acid Calcium 6.8 L Phosphorus Magnesium Total Bilirubin AST Alkaline Phosphatase Total Creatine Kinase C-Reactive Protein Total Protein Albumin TSH Free T4 Urine WBC (Auto) Crossmatch See Detail 12/28/18 12/28/18 12/28/18 00:39 01:03 06:42 WBC RBC Hgb 8.2 L Hct 24.6 L MCV MCH RDW Plt Count Lymph % (Auto) Brown % (Auto) Lymph # Seg Neutrophils % Seg Neuts % (Manual) Lymphocytes % (Manual) Monocytes % (Manual) Nucleated RBC % Seg Neutrophils # Seg Neutrophils # Man Lymphocytes # (Manual) Monocytes # (Manual) PT INR POC ABG pH POC ABG pCO2 POC ABG pO2 Sodium Potassium Chloride Carbon Dioxide BUN Creatinine Glucose POC Glucose 135 H 160 H Lactic Acid Calcium Phosphorus Magnesium Total Bilirubin AST Alkaline Phosphatase Total Creatine Kinase C-Reactive Protein Total Protein Albumin TSH Free T4 Urine WBC (Auto) Crossmatch 12/28/18 12/28/18 12/28/18 07:30 07:30 11:33 WBC RBC 3.43 L Hgb 9.3 L Hct 27.5 L MCV MCH 27 L RDW 24.0 H Plt Count 34 L Lymph % (Auto) Brown % (Auto) Lymph # Seg Neutrophils % 86.0 H Seg Neuts % (Manual) 88.0 H Lymphocytes % (Manual) 6.0 L Monocytes % (Manual) Nucleated RBC % Seg Neutrophils # Seg Neutrophils # Man Lymphocytes # (Manual) 0.4 L Monocytes # (Manual) PT INR POC ABG pH POC ABG pCO2 POC ABG pO2 Sodium Potassium Chloride Carbon Dioxide 20 L BUN 101 H Creatinine 2.8 H Glucose 155 H POC Glucose 171 H Lactic Acid Calcium 6.5 L Phosphorus 7.40 H Magnesium Total Bilirubin AST Alkaline Phosphatase Total Creatine Kinase C-Reactive Protein Total Protein Albumin TSH Free T4 Urine WBC (Auto) Crossmatch Chest x-ray: report reviewed, image reviewed Allied health notes reviewed: nursing
[2018-12-29] MEDS: NACL 0.9% 1000 ML 1,000 ML IV SCH ×2 (00:15→20:14)
[2018-12-29] MEDS: HumaLOG SUB-Q SCH ×4 (00:17→18:04)
[2018-12-29] MEDS: DUONEB *Not for PRN Use IH SCH ×4 (02:27→19:23)
[2018-12-29 06:30] LABS: Hematocrit 29.7 % (30.3-42.9); Hemoglobin 10.1 gm/dl (10.1-14.3); Mean Corpuscular HGB Conc 34 % (30-34); Mean Corpuscular Volume 80 fl (79-97); Red Blood Count 3.73 M/mm3 (3.65-5.03)
[2018-12-29 06:38] LABS: Albumin 1.6 g/dL (3.9-5); Calcium 6.6 mg/dL (8.4-10.2)
[2018-12-29 06:43] LABS: Platelet Count 32 K/mm3 (140-440); Red Cell Distribution Width 23.8 % (13.2-15.2)
[2018-12-29 07:27] LABS: Band Neutrophils # (Manual) 0.1 K/mm3; Basophils % (Manual) 0 % (0.0-1.8); Monocytes % (Manual) 0 % (0.0-7.3); Spherocytes Few; Target Cells 1+; Total Cells Counted 100
[2018-12-29 07:28] LABS: Giant Platelets Few; Hypochromasia Few; Platelet Estimate Appears Decreased
[2018-12-29] MEDS: LOPRESSOR PO SCH ×2 (08:00→17:00)
[2018-12-29] MEDS: APRESOLINE PO SCH ×4 (08:00→22:29)
[2018-12-29] MEDS: PROAMATINE PO SCH ×3 (08:00→15:40)
[2018-12-29] MEDS: NORVASC PO SCH (10:00)
[2018-12-29] MEDS: PREVACID SOLUTAB FEEDTUBE SCH ×2 (10:00→22:26)
[2018-12-29] MEDS: SODIUM CHLORIDE FLUSH SYRINGE 10 ML IV SCH ×2 (10:00→23:20)
--- NOTE | 2018-12-29 10:45 | Progress Note ---
Assessment and Plan - Patient Problems (1) Acute kidney failure with tubular necrosis Current Visit: Yes Status: Acute Plan to address problem: Labs noted and her renal function is stable. Overall prognosis is poor, poor candidate for renal replacement therapy, recommend palliative care/hospice. Will monitor closely. Avoid nephrotoxins. (2) Acute post-hemorrhagic anemia Current Visit: Yes Status: Acute Plan to address problem: H/H is stable at this time. Continue to monitor, transfuse prn to maintain HgB>7.0 (3) Respiratory failure Current Visit: Yes Status: Acute Plan to address problem: Continues on ventilatory support, and further management per ICU/Pulmonary team. (4) Pericardial effusion without cardiac tamponade Current Visit: Yes Status: Acute Plan to address problem: s/p ECHO with findings not consistent with cardiac tamponade. Will continue to monitor, further recs per cardiology. (5) Encephalopathy Current Visit: Yes Status: Acute Plan to address problem: s/p EEG . Results reviewed. Further management per primary team. Patient remains comatose at this time Subjective Date of service: 12/29/18 Principal diagnosis: Rectal Bleed Interval history: Pt remains intubated, unresponsive Objective - Vital Signs Vital signs: Vital Signs - 12hr 12/28/18 12/28/18 12/28/18 23:01 23:11 23:15 Temperature Pulse Rate 70 67 79 Pulse Rate [ From Monitor] Pulse Rate [ Throughout] Respiratory 18 17 Rate Respiratory Rate [ Throughout] Blood Pressure 117/38 117/38 91/50 O2 Sat by Pulse 100 100 100 Oximetry 12/29/18 12/29/18 12/29/18 00:00 01:01 02:00 Temperature 97.3 F L Pulse Rate 81 65 60 Pulse Rate [ 74 60 From Monitor] Pulse Rate [ 62 Throughout] Respiratory 18 18 18 Rate Respiratory 18 Rate [ Throughout] Blood Pressure 149/62 122/30 121/39 O2 Sat by Pulse 100 100 100 Oximetry 12/29/18 12/29/18 12/29/18 03:00 03:29 04:00 Temperature 97.8 F Pulse Rate 69 79 60 Pulse Rate [ 60 From Monitor] Pulse Rate [ Throughout] Respiratory 18 18 Rate Respiratory Rate [ Throughout] Blood Pressure 123/40 91/50 121/32 O2 Sat by Pulse 100 100 99 Oximetry 12/29/18 12/29/18 12/29/18 05:00 06:00 07:40 Temperature Pulse Rate 63 62 70 Pulse Rate [ From Monitor] Pulse Rate [ Throughout] Respiratory 18 18 Rate Respiratory Rate [ Throughout] Blood Pressure 141/35 134/33 124/31 O2 Sat by Pulse 99 99 100 Oximetry 12/29/18 12/29/18 12/29/18 07:43 08:00 10:00 Temperature 97.6 F Pulse Rate 67 63 Pulse Rate [ From Monitor] Pulse Rate [ 67 Throughout] Respiratory Rate Respiratory 18 Rate [ Throughout] Blood Pressure 166/28 115/40 O2 Sat by Pulse Oximetry - General Appearance General appearance: intubated, comatose EENT: ATNC, mucous membranes moist Neck: no JVD Respiratory: Present: Decreased Breath Sounds Cardiology: regular, S1S2 Gastrointestinal: normoactive bowel sounds Integumentary: no rash, other (++ edema b/l LE ) Neurologic: other (unresponsive ) - Lab 12/29/18 05:45 12/29/18 05:45 Most recent lab results Calcium 6.6 mg/dL (8.4-10.2) L 12/29/18 05:45 Phosphorus 7.20 mg/dL (2.5-4.5) H 12/29/18 05:45 Magnesium 2.30 mg/dL (1.7-2.3) 12/29/18 05:45 Medications & Allergies - Medications Allergies/Adverse Reactions: Allergies Penicillins Allergy (Verified 12/08/18 13:13) Hives Home Medications: Home Medications Medication Instructions Recorded Confirmed Last Taken Type ALBUTEROL Inhaler (OR & NICU) 2 puff IH QID PRN #1 inhalation 12/21/16 12/08/18 Unknown Rx [Proair] Albuterol Sulfate [Albuterol 0.63% 0.63 mg IH TID PRN #90 ml 12/21/16 12/08/18 Unknown Rx NEBS] Amlodipine Besylate [Norvasc] 10 mg PO DAILY #90 tablet 12/21/16 12/08/18 Unknown Rx AtorvaSTATin [Lipitor] 20 mg PO QHS #90 tablet 12/21/16 12/08/18 Unknown Rx Hydralazine HCl [Apresoline TAB] 50 mg PO TID #90 tablet 12/21/16 12/08/18 Unknown Rx Metoprolol [Lopressor TAB] 25 mg PO BID #90 tablet 12/21/16 12/08/18 Unknown Rx Promethazine /Codeine 5 ml PO Q6H PRN #100 ml 12/21/16 12/08/18 Unknown Rx [Phenergan/Codeine 6.25-10 mg/5 ml] Active Medications: Generic Name Dose Route Start Last Admin Trade Name Freq PRN Reason Stop Dose Admin Acetaminophen 650 mg 12/09/18 01:00 12/28/18 00:24 Tylenol MO 650 mg Q4H PRN Administration Pain MILD(1-3)/Fever >100.5/TURNER Albuterol 2.5 mg 12/09/18 00:31 Proventil IH Q4HRT PRN Shortness Of Breath Albuterol/Ipratropium 1 ampul 12/09/18 02:00 12/29/18 07:43 Duoneb *Not For Prn Use* IH 1 ampul Q6HRT KOLE Administration Amlodipine Besylate 10 mg 12/28/18 10:00 12/29/18 10:00 Norvasc PO 10 mg DAILY KOLE Administration Lipase/Protease/Amylase 1 each 12/09/18 04:[address] 10,500 Unit FEEDTUBE PRN PRN For Clogged Feeding Tube Atorvastatin Calcium 20 mg 12/28/18 22:00 12/28/18 21:06 Lipitor PO 20 mg QHS KOLE Administration Dextrose 50 ml 12/24/18 00:42 12/24/18 00:30 D50w (25gm) Syringe IV 50 ml PRN PRN Administration Hypoglycemia Hydralazine HCl 50 mg 12/28/18 08:00 12/29/18 08:00 Apresoline PO 50 mg TID KOLE Administration Hydrophilic Ointment 1 applic 12/14/18 13:00 Vaseline Lip Therapy TP DIRECT PRN Dry tongue Norepinephrine 4 mg in 250 mls @ 7.5 mls/hr 12/18/18 18:00 12/19/18 18:00 Levophed Drip 4 Mg/Ns 250 Ml IV 0 mcg/min TITR KOLE 0 mls/hr Titration Protocol 2 MCG/MIN Sodium Chloride 1,000 mls @ 50 mls/hr 12/23/18 13:00 12/29/18 00:15 Nacl 0.9% 1000 Ml IV 50 mls/hr DIRECT KOLE Administration Insulin Human Lispro 0 unit 12/11/18 12:00 12/29/18 06:08 Humalog SUB-Q Not Given Q6HR [facility] Protocol Lansoprazole 30 mg 12/12/18 10:00 12/29/18 10:00 Prevacid Solutab FEEDTUBE 30 mg BID KOLE Administration Metoprolol Tartrate 25 mg 12/27/18 23:45 12/29/18 08:00 Lopressor PO 25 mg BID@0800,1700 KOLE Administration Midodrine 10 mg 12/18/18 19:01 12/29/18 08:00 Proamatine PO 10 mg TID@0800,1200,1600 KOLE Administration Multi-Ingred Cream/Lotion/Oil/Oint 1 applic 12/08/18 13:31 Artificial Tears Ophth Oint OU Q4HR PRN Dry Eye(s) Ondansetron HCl 4 mg 12/09/18 00:31 Zofran IV Q8H PRN Nausea And Vomiting Promethazine HCl/Codeine 5 ml 12/27/18 23:49 Phenergan/Codeine 6.25-10 Mg/5ml PO Q6H PRN cough Simple Syrup 15 ml 12/09/18 04:05 Simple Syrup FEEDTUBE PRN PRN Hypoglycemia Simple Syrup 30 ml 12/09/18 04:05 Simple Syrup FEEDTUBE PRN PRN Hypoglycemia Sodium Bicarbonate 325 mg 12/09/18 04:05 Sodium Bicarbonate FEEDTUBE PRN PRN For Clogged Feeding Tube Sodium Chloride 10 ml 12/09/18 10:00 12/29/18 10:00 Sodium Chloride Flush Syringe 10 Ml IV 10 ml BID KOLE Administration Sodium Chloride 10 ml 12/09/18 00:31 12/17/18 10:47 Sodium Chloride Flush Syringe 10 Ml IV 10 ml PRN PRN Administration LINE FLUSH
--- NOTE | 2018-12-29 12:09 | Progress Note ---
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 neurology ordered EEG. 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 --Severe Sepsis due to UTI , right mastoiditis, aspiration PNA Blood cultures negative, right ear Cx negative Completed antibiotics per ID --Septic Shock, hypotension, BP improved,off levophed --Left lower lobe infiltrate, poss pneumonia Received antibiotics --Large Pericardial effusion without tamponade TTE EF>50,Cardiology evaluated, medical management Poor candidate for any procedure --MARYANN on CKD 3 Nephrology following-avoid nephrotoxins no indication for HD now --Acute on chronic anemia has h/o anemia requiring previous blood transfusions could be multifactorial (GI bleed and CKD), Total 4 Units PRBC transfused --Lower GI Bleeding: Hemoglobin today is 8.2 -9.3-10.1 Monitor H/H, transfuse as needed, followed GI evaluation h/o Coffee ground emesis: Resolved No plans of endoscopy --Thrombocytopenia Transfused total 5 Units platelets Plt 34-32 today, will transfuse as needed --Hypothermia,resolved --Diabetes mellitus type 2, SSI as needed Full code status. Very Poor prognosis, recommend hospice, palliative care The high probability of a clinically significant, sudden or life threatening deterioration of the [respiratory, cardiology, GI, renal, hematology] system(s) required my full and direct attention, intervention and personal management. The aggregate critical care time was [32] minutes. This time is in addition to time spent performing reported procedures but includes the following: [x] Data Review and interpretation [x] Patient assessment and monitoring of vital signs [x] Documentation [x] Medication orders and management History Interval history: Patient seen and examined and medical records reviewed Patient is critically ill no new changes Remains intubated on vent dependent Surgery evaluated the patient, possible trach and PEG, family deciding In mild distress Vital signs reviewed Hospitalist Physical - Constitutional Vitals: Temp Pulse Resp BP Pulse Ox 97.6 F 62 18 106/32 98 12/29/18 08:00 12/29/18 11:00 12/29/18 11:00 12/29/18 11:00 12/29/18 11:00 General appearance: Present: mild distress, well-nourished, other (intubated on vent) - EENT Eyes: Present: PERRL, EOM intact - Neck Neck: Present: supple, normal ROM - Respiratory Respiratory effort: normal Respiratory: bilateral: diminished, rhonchi, negative: rales, wheezing - Cardiovascular Rhythm: regular Heart Sounds: Present: S1 & S2 - Extremities Extremities: no ischemia, No edema - Abdominal General gastrointestinal: soft, non-tender, non-distended, normal bowel sounds - Integumentary Integumentary: Present: clear, warm - Psychiatric Psychiatric: other (intubated on vent) - Neurologic Neurologic: other (intubated on vent) Results - Labs CBC & Chem 7: 12/29/18 05:45 12/29/18 05:45 Labs: Laboratory Last Values WBC 5.6 K/mm3 (4.5-11.0) 12/29/18 05:45 RBC 3.73 M/mm3 (3.65-5.03) 12/29/18 05:45 Hgb 10.1 gm/dl (10.1-14.3) 12/29/18 05:45 Hct 29.7 % (30.3-42.9) L 12/29/18 05:45 MCV 80 fl (79-97) 12/29/18 05:45 MCH 27 pg (28-32) L 12/29/18 05:45 MCHC 34 % (30-34) 12/29/18 05:45 RDW 23.8 % (13.2-15.2) H 12/29/18 05:45 Plt Count 32 K/mm3 (140-440) L 12/29/18 05:45 Lymph % (Auto) 8.9 % (13.4-35.0) L 12/27/18 16:20 [place] % (Auto) 6.1 % (0.0-7.3) 12/28/18 07:30 Eos % (Auto) 0.1 % (0.0-4.3) 12/28/18 07:30 Baso % (Auto) 0.3 % (0.0-1.8) 12/27/18 16:20 Lymph # 0.6 K/mm3 (1.2-5.4) L 12/27/18 16:20 [place] # 0.5 K/mm3 (0.0-0.8) 12/27/18 16:20 Eos # 0.0 K/mm3 (0.0-0.4) 12/27/18 16:20 Baso # 0.0 K/mm3 (0.0-0.1) 12/27/18 16:20 Add Manual Diff Complete 12/29/18 05:45 Total Counted 100 12/29/18 05:45 Seg Neutrophils % 86.0 % (40.0-70.0) H 12/28/18 07:30 Seg Neuts % (Manual) 94.0 % (40.0-70.0) H 12/29/18 05:45 Band Neutrophils % 1.0 % 12/29/18 05:45 Lymphocytes % (Manual) 4.0 % (13.4-35.0) L 12/29/18 05:45 Reactive Lymphs % (Man) 0 % 12/29/18 05:45 Monocytes % (Manual) 0 % (0.0-7.3) 12/29/18 05:45 Eosinophils % (Manual) 1.0 % (0.0-4.3) 12/29/18 05:45 Basophils % (Manual) 0 % (0.0-1.8) 12/29/18 05:45 Metamyelocytes % 0 % 12/29/18 05:45 Myelocytes % 0 % 12/29/18 05:45 Promyelocytes % 0 % 12/29/18 05:45 Blast Cells % 0 % 12/29/18 05:45 Nucleated RBC % 1.0 % (0.0-0.9) H 12/29/18 05:45 Seg Neutrophils # 5.8 K/mm3 (1.8-7.7) 12/28/18 07:30 Seg Neutrophils # Man 5.3 K/mm3 (1.8-7.7) 12/29/18 05:45 Band Neutrophils # 0.1 K/mm3 12/29/18 05:45 Lymphocytes # (Manual) 0.2 K/mm3 (1.2-5.4) L 12/29/18 05:45 Abs React Lymphs (Man) 0.0 K/mm3 12/29/18 05:45 Monocytes # (Manual) 0.0 K/mm3 (0.0-0.8) 12/29/18 05:45 Eosinophils # (Manual) 0.1 K/mm3 (0.0-0.4) 12/29/18 05:45 Basophils # (Manual) 0.0 K/mm3 (0.0-0.1) 12/29/18 05:45 Metamyelocytes # 0.0 K/mm3 12/29/18 05:45 Myelocytes # 0.0 K/mm3 12/29/18 05:45 Promyelocytes # 0.0 K/mm3 12/29/18 05:45 Blast Cells # 0.0 K/mm3 12/29/18 05:45 WBC Morphology Not Reportable 12/29/18 05:45 Hypersegmented Neuts Not Reportable 12/29/18 05:45 Hyposegmented Neuts Not Reportable 12/29/18 05:45 Hypogranular Neuts Not Reportable 12/29/18 05:45 Smudge Cells Not Reportable 12/29/18 05:45 Toxic Granulation Not Reportable 12/29/18 05:45 Toxic Vacuolation Not Reportable 12/29/18 05:45 Dohle Bodies Not Reportable 12/29/18 05:45 Pelger-Huet Anomaly Not Reportable 12/29/18 05:45 Mark Rods Not Reportable 12/29/18 05:45 Platelet Estimate Appears decreased 12/29/18 05:45 Clumped Platelets Not Reportable 12/29/18 05:45 Plt Clumps, EDTA Not Reportable 12/29/18 05:45 Large Platelets Not Reportable 12/29/18 05:45 Giant Platelets Few 12/29/18 05:45 Platelet Satelliting Not Reportable 12/29/18 05:45 Plt Morphology Comment Not Reportable 12/29/18 05:45 RBC Morphology Not Reportable 12/29/18 05:45 Dimorphic RBCs Not Reportable 12/29/18 05:45 Polychromasia Not Reportable 12/29/18 05:45 Hypochromasia Few 12/29/18 05:45 Poikilocytosis Not Reportable 12/29/18 05:45 Anisocytosis Not Reportable 12/29/18 05:45 Microcytosis Not Reportable 12/29/18 05:45 Macrocytosis Not Reportable 12/29/18 05:45 Spherocytes Few 12/29/18 05:45 Pappenheimer Bodies Not Reportable 12/29/18 05:45 Sickle Cells Not Reportable 12/29/18 05:45 Target Cells 1+ 12/29/18 05:45 Tear Drop Cells Not Reportable 12/29/18 05:45 Ovalocytes Not Reportable 12/29/18 05:45 Helmet Cells Not Reportable 12/29/18 05:45 [place] Bodies Not Reportable 12/29/18 05:45 [place] Rings Not Reportable 12/29/18 05:45 Aneesh Cells Not Reportable 12/29/18 05:45 Bite Cells Not Reportable 12/29/18 05:45 Crenated Cell Not Reportable 12/29/18 05:45 Elliptocytes Not Reportable 12/29/18 05:45 Acanthocytes (Spur) Not Reportable 12/29/18 05:45 Rouleaux Not Reportable 12/29/18 05:45 Hemoglobin C Crystals Not Reportable 12/29/18 05:45 Schistocytes Not Reportable 12/29/18 05:45 Malaria parasites Not Reportable 12/29/18 05:45 Stef Bodies Not Reportable 12/29/18 05:45 Hem Pathologist Commnt No 12/29/18 05:45 PT 20.2 Sec. (12.2-14.9) H 12/12/18 08:00 INR 1.61 (0.87-1.13) H 12/12/18 08:00 APTT 30.9 Sec. (24.2-36.6) 12/10/18 10:40 POC ABG pH 7.325 (7.35-7.45) L 12/15/18 03:37 POC ABG pCO2 28.6 (35-45) L 12/15/18 03:37 POC ABG pO2 105 (80-105) 12/15/18 03:37 POC ABG HCO3 14.9 12/15/18 03:37 POC ABG Total CO2 16 12/15/18 03:37 POC ABG O2 Sat 98 12/15/18 03:37 POC ABG Base Excess -11 12/15/18 03:37 FiO2 25 % 12/15/18 03:37 Sodium 141 mmol/L (137-145) 12/29/18 05:45 Potassium 3.7 mmol/L (3.6-5.0) 12/29/18 05:45 Chloride 105.4 mmol/L (98-107) 12/29/18 05:45 Carbon Dioxide 20 mmol/L (22-30) L 12/29/18 05:45 Anion Gap 19 mmol/L 12/29/18 05:45 BUN 103 mg/dL (7-17) H 12/29/18 05:45 Creatinine 2.7 mg/dL (0.7-1.2) H 12/29/18 05:45 Estimated GFR 20 ml/min 12/29/18 05:45 BUN/Creatinine Ratio 38 % 12/29/18 05:45 Glucose 97 mg/dL (65-100) 12/29/18 05:45 POC Glucose 97 (70-105) 12/29/18 05:46 Hemoglobin A1c 4.9 % (4-6) 12/10/18 04:38 Lactic Acid 3.00 mmol/L (0.7-2.0) H* 12/08/18 15:21 Calcium 6.6 mg/dL (8.4-10.2) L 12/29/18 05:45 Phosphorus 7.20 mg/dL (2.5-4.5) H 12/29/18 05:45 Magnesium 2.30 mg/dL (1.7-2.3) 12/29/18 05:45 Total Bilirubin 0.40 mg/dL (0.1-1.2) 12/29/18 05:45 AST 49 units/L (5-40) H 12/29/18 05:45 ALT 16 units/L (7-56) 12/29/18 05:45 Alkaline Phosphatase 309 units/L (35-129) H 12/29/18 05:45 Total Creatine Kinase 258 units/L (30-135) H 12/08/18 13:40 C-Reactive Protein 19.60 mg/dL (0.00-1.30) H 12/09/18 18:18 Total Protein 4.6 g/dL (6.3-8.2) L 12/29/18 05:45 Albumin 1.6 g/dL (3.9-5) L 12/29/18 05:45 Albumin/Globulin Ratio 0.5 % 12/29/18 05:45 TSH 0.268 mlU/mL (0.270-4.200) L 12/09/18 15:54 Free T4 0.58 ng/dL (0.76-1.46) L 12/09/18 15:54 Urine Color Yolie (Yellow) 12/08/18 13:40 Urine Turbidity Cloudy (Clear) 12/08/18 13:40 Urine pH 7.0 (5.0-7.0) 12/08/18 13:40 Ur Specific [place] 1.015 (1.003-1.030) 12/08/18 13:40 Urine Protein 100 mg/dl mg/dL (Negative) 12/08/18 13:40 Urine Glucose (UA) Neg mg/dL (Negative) 12/08/18 13:40 Urine Ketones Neg mg/dL (Negative) 12/08/18 13:40 Urine Blood Sm (Negative) 12/08/18 13:40 Urine Nitrite Neg (Negative) 12/08/18 13:40 Urine Bilirubin Neg (Negative) 12/08/18 13:40 Urine Urobilinogen 2.0 mg/dL (<2.0) 12/08/18 13:40 Ur Leukocyte Esterase Mod (Negative) 12/08/18 13:40 Urine WBC (Auto) 157.0 /HPF (0.0-6.0) H 12/08/18 13:40 Urine RBC (Auto) 8.0 /HPF (0.0-6.0) 12/08/18 13:40 U Epithel Cells (Auto) 1.0 /HPF (0-13.0) 12/08/18 13:40 Urine Bacteria (Auto) 4+ /HPF (Negative) 12/08/18 13:40 Urine Mucus 2+ /HPF 12/08/18 13:40 Random Vancomycin 15.9 ug/mL (0-40.0) 12/18/18 04:08 JEFFREY Screen Negative (Negative) 12/09/18 15:54 Blood Type B POSITIVE 12/27/18 20:16 Antibody Screen Negative 12/27/18 20:16 Crossmatch See Detail 12/27/18 20:16 Active Medications - Current Medications Current Medications: Generic Name Dose Route Start Last Admin Trade Name Freq PRN Reason Stop Dose Admin Acetaminophen 650 mg 12/09/18 01:00 12/28/18 00:24 Tylenol MT 650 mg Q4H PRN Administration Pain MILD(1-3)/Fever >100.5/TURNER Albuterol 2.5 mg 12/09/18 00:31 Proventil IH Q4HRT PRN Shortness Of Breath Albuterol/Ipratropium 1 ampul 12/09/18 02:00 12/29/18 07:43 Duoneb *Not For Prn Use* IH 1 ampul Q6HRT KOLE Administration Amlodipine Besylate 10 mg 12/28/18 10:00 12/29/18 10:00 Norvasc PO 10 mg DAILY KOLE Administration Lipase/Protease/Amylase 1 each 12/09/18 04:[address] 10,500 Unit FEEDTUBE PRN PRN For Clogged Feeding Tube Atorvastatin Calcium 20 mg 12/28/18 22:00 12/28/18 21:06 Lipitor PO 20 mg QHS KOLE Administration Dextrose 50 ml 12/24/18 00:42 12/24/18 00:30 D50w (25gm) Syringe IV 50 ml PRN PRN Administration Hypoglycemia Hydralazine HCl 50 mg 12/28/18 08:00 12/29/18 08:00 Apresoline PO 50 mg TID KOLE Administration Hydrophilic Ointment 1 applic 12/14/18 13:00 Vaseline Lip Therapy TP DIRECT PRN Dry tongue Norepinephrine 4 mg in 250 mls @ 7.5 mls/hr 12/18/18 18:00 12/19/18 18:00 Levophed Drip 4 Mg/Ns 250 Ml IV 0 mcg/min TITR KOLE 0 mls/hr Titration Protocol 2 MCG/MIN Sodium Chloride 1,000 mls @ 50 mls/hr 12/23/18 13:00 12/29/18 00:15 Nacl 0.9% 1000 Ml IV 50 mls/hr DIRECT KOLE Administration Insulin Human Lispro 0 unit 12/11/18 12:00 12/29/18 06:08 Humalog SUB-Q Not Given Q6HR KOLE Protocol Lansoprazole 30 mg 12/12/18 10:00 12/29/18 10:00 Prevacid Solutab FEEDTUBE 30 mg BID KOLE Administration Metoprolol Tartrate 25 mg 12/27/18 23:45 12/29/18 08:00 Lopressor PO 25 mg BID@0800,1700 KOLE Administration Midodrine 10 mg 12/18/18 19:01 12/29/18 08:00 Proamatine PO 10 mg TID@0800,1200,1600 KOLE Administration Multi-Ingred Cream/Lotion/Oil/Oint 1 applic 12/08/18 13:31 Artificial Tears Ophth Oint OU Q4HR PRN Dry Eye(s) Ondansetron HCl 4 mg 12/09/18 00:31 Zofran IV Q8H PRN Nausea And Vomiting Promethazine HCl/Codeine 5 ml 12/27/18 23:49 Phenergan/Codeine 6.25-10 Mg/5ml PO Q6H PRN cough Simple Syrup 15 ml 12/09/18 04:05 Simple Syrup FEEDTUBE PRN PRN Hypoglycemia Simple Syrup 30 ml 12/09/18 04:05 Simple Syrup FEEDTUBE PRN PRN Hypoglycemia Sodium Bicarbonate 325 mg 12/09/18 04:05 Sodium Bicarbonate FEEDTUBE PRN PRN For Clogged Feeding Tube Sodium Chloride 10 ml 12/09/18 10:00 12/29/18 10:00 Sodium Chloride Flush Syringe 10 Ml IV 10 ml BID KOLE Administration Sodium Chloride 10 ml 12/09/18 00:31 12/17/18 10:47 Sodium Chloride Flush Syringe 10 Ml IV 10 ml PRN PRN Administration LINE FLUSH Nutrition/Malnutrition Assess - Dietary Evaluation Nutrition/Malnutrition Findings: Nutrition Notes Start: 12/09/18 12:11 Freq: Status: Active Protocol: Document 12/23/18 17:22 OL (Rec: 12/23/18 17:26 OL [id number]) Nutrition Notes Initial or Follow up Reassessment Current Diagnosis Acute Kidney Injury,Sepsis, Respiratory Failure Other Pertinent Diagnosis Acute encephalopathy, Pericardial effusion Current Diet TF - Glucerna 1.2 at 50ml/hr Labs/Tests Na 134 BUN 80 Cr 2.4 Pertinent Medications Reviewed Height 5 ft 1 in Weight 68.2 kg [place] Body Weight (kg) 47.72 BMI 28.4 Weight change and time frame Wt. changed noted Subjective/Other Information TF and vent support continue. Discussed pt. during interdisciplinary rounds. Trach/PEG possible. Percent of energy/protein needs met: 100% energy 88% protein Burn Absent Trauma Absent #1 Nutrition Diagnosis Inadequate oral intake Diagnosis Progress(for reassessment Continues documentation) Is patient on ventilator? Yes Is Patient Ambulatory and/or Out of Bed No REE-([facility]-confined to bed) [phone] Calculation Used for Recommendations [facility] Additional Notes Pro needs 1.2-2g/k-136g/ day Fluid needs 1ml/kcal Nutrition Intervention Nutrition Support: Glucerna 1.2 at 50ml/hr Flush with 100ml q4h Kcal 1,440 Protein (gm) 72 Fluid (mL) 966 Goal #1 TF tolerance Goal #2 TF to meet at least 80% energy and pro needs Follow-Up By: 12/30/18 Additional Comments f/u: stable TF, vent status, wt.
--- NOTE | 2018-12-29 15:10 | Progress Note ---
Assessment and Plan Imp: 1. UTI 2. Sepsis 3. Acute respiratory failure, hypoxia 4. MARYANN 5. Thrombocytopenia 6. Acute encephalopathy 7. Hx of CVA 8. Comatose Rec: 1. Prognosis is dismal; withdrawal of mechanical ventilation and palliative care would be the most appropriate management at this point, especially in light of apnea on PSV (she would require long-term ventilator facility until she dies); reviewed upper caser notes -> Grand-daughter is primary decision maker as stated by patient's son; I had a long discussion with Opel the Grand-daughter, explained the extremely poor prognosis and need for long-term mechanical ventilation which a trach would not fix, and recommended hospice/palliative care; initially she requested trach/PEG anyway but per surgery note she is re- considering and will discuss further with family; will re-consult neurology to assist with prognostication (reconsulted Dr. Agosto who saw patient 2 weeks ago), may have to call them directly 2. Off ABX 3. IVFs per renal 4. TFs, GI PPx 5. SCDs; would try to keep platelets greater than 20K; agree with hematology evaluation 6. Stopped Solumedrol as did not help tongue 7. Platelets are stable 8. Complex decision-making Subjective Date of service: 12/29/18 Principal diagnosis: Rectal Bleed Interval history: Hypothermic on warming blanket. 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 Not able to communicate. Comato se. No new events reported. Active Medications Acetaminophen (Tylenol) 650 mg [place] Q4H PRN PRN Reason: Pain MILD(1-3)/Fever >100.5/TURNER Last Admin: 12/28/18 00:24 Dose: 650 mg Documented by: Albuterol (Proventil) 2.5 mg IH Q4HRT PRN PRN Reason: Shortness Of Breath Albuterol/Ipratropium (Duoneb *Not For Prn Use*) 1 ampul IH Q6HRT [facility] Last Admin: 12/29/18 14:15 Dose: 1 ampul Documented by: Amlodipine Besylate (Norvasc) 10 mg PO DAILY [facility] Last Admin: 12/29/18 10:00 Dose: 10 mg Documented by: Lipase/Protease/Amylase (Shakir Pena 10,500 Unit) 1 each FEEDTUBE PRN PRN PRN Reason: For Clogged Feeding Tube Atorvastatin Calcium (Lipitor) 20 mg PO QHS [facility] Last Admin: 12/28/18 21:06 Dose: 20 mg Documented by: Dextrose (D50w (25gm) Syringe) 50 ml IV PRN PRN PRN Reason: Hypoglycemia Last Admin: 12/24/18 00:30 Dose: 50 ml Documented by: Hydralazine HCl (Apresoline) 50 mg PO TID [facility] Last Admin: 12/29/18 14:21 Dose: Not Given Documented by: Hydrophilic Ointment (Vaseline Lip Therapy) 1 applic TP DIRECT PRN PRN Reason: Dry tongue Norepinephrine (Levophed Drip 4 Mg/Ns 250 Ml) 4 mg in 250 mls @ 7.5 mls/hr IV TITR [facility]; Protocol Last Titration: 12/19/18 18:00 Dose: 0 mcg/min, 0 mls/hr Documented by: Sodium Chloride (Nacl 0.9% 1000 Ml) 1,000 mls @ 50 mls/hr IV DIRECT KOLE Last Admin: 12/29/18 00:15 Dose: 50 mls/hr Documented by: Insulin Human Lispro (Humalog) 0 unit SUB-Q Q6HR [facility]; Protocol Last Admin: 12/29/18 12:00 Dose: Not Given Documented by: Lansoprazole (Prevacid Solutab) 30 mg FEEDTUBE BID [facility] Last Admin: 12/29/18 10:00 Dose: 30 mg Documented by: Metoprolol Tartrate (Lopressor) 25 mg PO BID@0800,1700 [facility] Last Admin: 12/29/18 08:00 Dose: 25 mg Documented by: Midodrine (Proamatine) 10 mg PO TID@0800,1200,1600 [facility] Last Admin: 12/29/18 12:00 Dose: 10 mg Documented by: Multi-Ingred Cream/Lotion/Oil/Oint (Artificial Tears Ophth Oint) 1 applic OU Q4HR PRN PRN Reason: Dry Eye(s) Ondansetron HCl (Zofran) 4 mg IV Q8H PRN PRN Reason: Nausea And Vomiting Promethazine HCl/Codeine (Phenergan/Codeine 6.25-10 Mg/5ml) 5 ml PO Q6H PRN PRN Reason: cough Simple Syrup (Simple Syrup) 15 ml FEEDTUBE PRN PRN PRN Reason: Hypoglycemia Simple Syrup (Simple Syrup) 30 ml FEEDTUBE PRN PRN PRN Reason: Hypoglycemia Sodium Bicarbonate (Sodium Bicarbonate) 325 mg FEEDTUBE PRN PRN PRN Reason: For Clogged Feeding Tube Sodium Chloride (Sodium Chloride Flush Syringe 10 Ml) 10 ml IV BID KOLE Last Admin: 12/29/18 10:00 Dose: 10 ml Documented by: Sodium Chloride (Sodium Chloride Flush Syringe 10 Ml) 10 ml IV PRN PRN PRN Reason: LINE FLUSH Last Admin: 12/17/18 10:47 Dose: 10 ml Documented by: Objective Vital Signs - 12hr 12/29/18 12/29/18 12/29/18 03:29 04:00 05:00 Temperature 97.8 F Pulse Rate 79 60 63 Pulse Rate [ 60 From Monitor] Pulse Rate [ Throughout] Respiratory 18 18 Rate Respiratory Rate [ Throughout] Blood Pressure 91/50 121/32 141/35 O2 Sat by Pulse 100 99 99 Oximetry 12/29/18 12/29/18 12/29/18 06:00 07:01 07:40 Temperature Pulse Rate 62 64 70 Pulse Rate [ From Monitor] Pulse Rate [ Throughout] Respiratory 18 18 Rate Respiratory Rate [ Throughout] Blood Pressure 134/33 132/27 124/31 O2 Sat by Pulse 99 99 100 Oximetry 12/29/18 12/29/18 12/29/18 07:43 08:00 08:30 Temperature 97.6 F Pulse Rate 68 Pulse Rate [ 63 From Monitor] Pulse Rate [ 67 62 Throughout] Respiratory 18 Rate Respiratory 18 18 Rate [ Throughout] Blood Pressure 126/37 O2 Sat by Pulse 99 Oximetry 12/29/18 12/29/18 12/29/18 09:00 10:00 10:49 Temperature Pulse Rate 63 61 63 Pulse Rate [ From Monitor] Pulse Rate [ Throughout] Respiratory 18 19 Rate Respiratory Rate [ Throughout] Blood Pressure 119/62 115/40 118/29 O2 Sat by Pulse 99 99 99 Oximetry 12/29/18 12/29/18 12/29/18 11:00 12:00 13:00 Temperature 99.4 F Pulse Rate 62 64 68 Pulse Rate [ 67 From Monitor] Pulse Rate [ Throughout] Respiratory 18 18 19 Rate Respiratory Rate [ Throughout] Blood Pressure 106/32 132/31 131/34 O2 Sat by Pulse 98 98 98 Oximetry 12/29/18 12/29/1819 14:00 14:13 14:15 Temperature Pulse Rate 67 66 Pulse Rate [ From Monitor] Pulse Rate [ 66 Throughout] Respiratory 18 Rate Respiratory 18 Rate [ Throughout] Blood Pressure 122/35 138/29 O2 Sat by Pulse 99 99 Oximetry 12/29/18 12/29/18 14:21 15:05 Temperature Pulse Rate 69 Pulse Rate [ From Monitor] Pulse Rate [ 67 Throughout] Respiratory Rate Respiratory 18 Rate [ Throughout] Blood Pressure 135/28 O2 Sat by Pulse Oximetry Constitutional: no acute distress, comatose, other (on vent cmv) Eyes: non-icteric ENT: oropharynx moist, other (ETT in position, large/edematous tongue) Neck: supple Effort: normal Ascultation: Bilateral: other (coarse BS bilaterally) Cardiovascular: regular rate and rhythm, other (pacemaker rhythm) Gastrointestinal: normoactive bowel sounds, non-distended Integumentary: normal Extremities: no cyanosis, no edema, pink and warm Neurologic: pupils equal and round, other (comatose, flaccid extremities, does not track or follow commands, + Cough, Apnea on PSV) Psychiatric: other (unable to assess) CBC and BMP: 12/29/18 05:45 12/29/18 05:45 ABG, PT/INR, D-dimer: ABG POC ABG pH 7.325 (7.35-7.45) L 12/15/18 03:37 POC ABG pCO2 28.6 (35-45) L 12/15/18 03:37 POC ABG pO2 105 (80-105) 12/15/18 03:37 POC ABG HCO3 14.9 12/15/18 03:37 POC ABG Total CO2 16 12/15/18 03:37 POC ABG O2 Sat 98 12/15/18 03:37 PT/INR, D-dimer PT 20.2 Sec. (12.2-14.9) H 12/12/18 08:00 INR 1.61 (0.87-1.13) H 12/12/18 08:00 Abnormal lab findings: Abnormal Labs 12/08/18 12/08/18 12/08/18 12:58 13:40 13:40 WBC RBC Hgb Hct MCV MCH RDW Plt Count Lymph % (Auto) [place] % (Auto) Lymph # Seg Neutrophils % Seg Neuts % (Manual) Lymphocytes % (Manual) Monocytes % (Manual) Nucleated RBC % Seg Neutrophils # Seg Neutrophils # Man Lymphocytes # (Manual) Monocytes # (Manual) PT INR POC ABG pH POC ABG pCO2 POC ABG pO2 Sodium Potassium Chloride Carbon Dioxide BUN Creatinine Glucose POC Glucose 143 H Lactic Acid Calcium Phosphorus Magnesium Total Bilirubin AST Alkaline Phosphatase Total Creatine Kinase C-Reactive Protein Total Protein Albumin TSH Free T4 Urine WBC (Auto) 157.0 H Crossmatch See Detail 12/08/18 12/08/18 12/08/18 13:40 13:40 13:40 WBC RBC 3.06 L Hgb 6.8 L Hct 21.1 L MCV 69 L MCH 22 L RDW 16.2 H Plt Count 56 L Lymph % (Auto) [place] % (Auto) Lymph # Seg Neutrophils % Seg Neuts % (Manual) Lymphocytes % (Manual) 2.0 L Monocytes % (Manual) Nucleated RBC % Seg Neutrophils # Seg Neutrophils # Man Lymphocytes # (Manual) 0.2 L Monocytes # (Manual) PT INR POC ABG pH POC ABG pCO2 POC ABG pO2 Sodium Potassium 3.2 L Chloride Carbon Dioxide 18 L BUN 64 H Creatinine 1.5 H Glucose 145 H POC Glucose Lactic Acid 4.00 H* Calcium 7.7 L Phosphorus Magnesium Total Bilirubin AST Alkaline Phosphatase Total Creatine Kinase 258 H C-Reactive Protein Total Protein 4.6 L Albumin 1.8 L TSH Free T4 Urine WBC (Auto) Crossmatch 12/08/18 12/08/18 12/08/18 14:29 15:21 16:06 WBC RBC Hgb Hct MCV MCH RDW Plt Count Lymph % (Auto) [place] % (Auto) Lymph # Seg Neutrophils % Seg Neuts % (Manual) Lymphocytes % (Manual) Monocytes % (Manual) Nucleated RBC % Seg Neutrophils # Seg Neutrophils # Man Lymphocytes # (Manual) Monocytes # (Manual) PT 20.5 H INR 1.64 H POC ABG pH POC ABG pCO2 34.2 L POC ABG pO2 465 H Sodium Potassium Chloride Carbon Dioxide BUN Creatinine Glucose POC Glucose Lactic Acid 3.00 H* Calcium Phosphorus Magnesium Total Bilirubin AST Alkaline Phosphatase Total Creatine Kinase C-Reactive Protein Total Protein Albumin TSH Free T4 Urine WBC (Auto) Crossmatch 12/09/18 12/09/18 12/09/18 02:31 05:36 05:36 WBC 14.5 H RBC Hgb Hct MCV 75 L MCH 25 L RDW 20.4 H Plt Count 68 L Lymph % (Auto) [place] % (Auto) Lymph # Seg Neutrophils % Seg Neuts % (Manual) 81.0 H Lymphocytes % (Manual) 1.0 L Monocytes % (Manual) Nucleated RBC % Seg Neutrophils # Seg Neutrophils # Man 11.7 H Lymphocytes # (Manual) 0.1 L Monocytes # (Manual) PT INR POC ABG pH POC ABG pCO2 POC ABG pO2 Sodium Potassium Chloride 107.6 H Carbon Dioxide 18 L BUN 75 H Creatinine 1.9 H Glucose 136 H POC Glucose 152 H Lactic Acid Calcium 7.9 L Phosphorus Magnesium Total Bilirubin 1.60 H AST 44 H Alkaline Phosphatase Total Creatine Kinase C-Reactive Protein Total Protein 5.2 L Albumin 2.4 L TSH Free T4 Urine WBC (Auto) Crossmatch 12/09/18 12/09/18 12/09/18 05:43 10:47 13:46 WBC RBC Hgb Hct MCV MCH RDW Plt Count Lymph % (Auto) [place] % (Auto) Lymph # Seg Neutrophils % Seg Neuts % (Manual) Lymphocytes % (Manual) Monocytes % (Manual) Nucleated RBC % Seg Neutrophils # Seg Neutrophils # Man Lymphocytes # (Manual) Monocytes # (Manual) PT INR POC ABG pH 7.308 L POC ABG pCO2 POC ABG pO2 183 H Sodium Potassium Chloride Carbon Dioxide BUN Creatinine Glucose POC Glucose 150 H 162 H Lactic Acid Calcium Phosphorus Magnesium Total Bilirubin AST Alkaline Phosphatase Total Creatine Kinase C-Reactive Protein Total Protein Albumin TSH Free T4 Urine WBC (Auto) Crossmatch 12/09/18 12/09/18 12/09/18 15:54 15:54 16:40 WBC RBC Hgb Hct MCV MCH RDW Plt Count Lymph % (Auto) [place] % (Auto) Lymph # Seg Neutrophils % Seg Neuts % (Manual) Lymphocytes % (Manual) Monocytes % (Manual) Nucleated RBC % Seg Neutrophils # Seg Neutrophils # Man Lymphocytes # (Manual) Monocytes # (Manual) PT INR POC ABG pH POC ABG pCO2 POC ABG pO2 Sodium Potassium Chloride Carbon Dioxide BUN Creatinine Glucose POC Glucose 197 H Lactic Acid Calcium Phosphorus Magnesium Total Bilirubin AST Alkaline Phosphatase Total Creatine Kinase C-Reactive Protein Total Protein Albumin TSH 0.268 L Free T4 0.58 L Urine WBC (Auto) Crossmatch 12/09/18 12/09/18 12/09/18 18:18 18:18 21:51 WBC RBC Hgb Hct MCV MCH RDW Plt Count Lymph % (Auto) [place] % (Auto) Lymph # Seg Neutrophils % Seg Neuts % (Manual) Lymphocytes % (Manual) Monocytes % (Manual) Nucleated RBC % Seg Neutrophils # Seg Neutrophils # Man Lymphocytes # (Manual) Monocytes # (Manual) PT INR POC ABG pH POC ABG pCO2 POC ABG pO2 Sodium Potassium Chloride 108.2 H Carbon Dioxide 16 L BUN 89 H Creatinine 2.3 H Glucose 180 H POC Glucose 198 H Lactic Acid Calcium 7.9 L Phosphorus Magnesium Total Bilirubin AST Alkaline Phosphatase Total Creatine Kinase C-Reactive Protein 19.60 H Total Protein Albumin TSH Free T4 Urine WBC (Auto) Crossmatch 12/10/18 12/10/18 12/10/18 01:59 04:14 04:38 WBC 11.5 H RBC Hgb Hct MCV 75 L MCH 25 L RDW 21.1 H Plt Count 81 L Lymph % (Auto) 5.6 L [place] % (Auto) Lymph # 0.6 L Seg Neutrophils % 89.8 H Seg Neuts % (Manual) Lymphocytes % (Manual) Monocytes % (Manual) Nucleated RBC % Seg Neutrophils # 10.3 H Seg Neutrophils # Man Lymphocytes # (Manual) Monocytes # (Manual) PT INR POC ABG pH 7.273 L POC ABG pCO2 32.1 L POC ABG pO2 161 H Sodium Potassium Chloride Carbon Dioxide BUN Creatinine Glucose POC Glucose 219 H Lactic Acid Calcium Phosphorus Magnesium Total Bilirubin AST Alkaline Phosphatase Total Creatine Kinase C-Reactive Protein Total Protein Albumin TSH Free T4 Urine WBC (Auto) Crossmatch 12/10/18 12/10/18 12/10/18 04:38 05:07 07:26 WBC RBC Hgb Hct MCV MCH RDW Plt Count Lymph % (Auto) [place] % (Auto) Lymph # Seg Neutrophils % Seg Neuts % (Manual) Lymphocytes % (Manual) Monocytes % (Manual) Nucleated RBC % Seg Neutrophils # Seg Neutrophils # Man Lymphocytes # (Manual) Monocytes # (Manual) PT INR POC ABG pH POC ABG pCO2 POC ABG pO2 Sodium Potassium Chloride 112.5 H Carbon Dioxide 14 L BUN 94 H Creatinine 2.4 H Glucose 207 H POC Glucose 221 H 212 H Lactic Acid Calcium 7.7 L Phosphorus Magnesium Total Bilirubin AST Alkaline Phosphatase Total Creatine Kinase C-Reactive Protein Total Protein Albumin TSH Free T4 Urine WBC (Auto) Crossmatch 12/10/18 12/10/1819 10:40 11:15 14:21 WBC RBC Hgb Hct MCV MCH RDW Plt Count Lymph % (Auto) [place] % (Auto) Lymph # Seg Neutrophils % Seg Neuts % (Manual) Lymphocytes % (Manual) Monocytes % (Manual) Nucleated RBC % Seg Neutrophils # Seg Neutrophils # Man Lymphocytes # (Manual) Monocytes # (Manual) PT 21.4 H INR 1.73 H POC ABG pH 7.214 L POC ABG pCO2 32.8 L POC ABG pO2 Sodium Potassium Chloride Carbon Dioxide BUN Creatinine Glucose POC Glucose 227 H Lactic Acid Calcium Phosphorus Magnesium Total Bilirubin AST Alkaline Phosphatase Total Creatine Kinase C-Reactive Protein Total Protein Albumin TSH Free T4 Urine WBC (Auto) Crossmatch 12/10/18 12/10/18 12/11/18 15:47 22:38 03:36 WBC RBC Hgb Hct MCV MCH RDW Plt Count Lymph % (Auto) [place] % (Auto) Lymph # Seg Neutrophils % Seg Neuts % (Manual) Lymphocytes % (Manual) Monocytes % (Manual) Nucleated RBC % Seg Neutrophils # Seg Neutrophils # Man Lymphocytes # (Manual) Monocytes # (Manual) PT INR POC ABG pH POC ABG pCO2 26.2 L POC ABG pO2 138 H Sodium Potassium Chloride Carbon Dioxide BUN Creatinine Glucose POC Glucose 202 H 259 H Lactic Acid Calcium Phosphorus Magnesium Total Bilirubin AST Alkaline Phosphatase Total Creatine Kinase C-Reactive Protein Total Protein Albumin TSH Free T4 Urine WBC (Auto) Crossmatch 12/11/18 12/11/18 12/11/18 04:12 05:00 06:19 WBC RBC Hgb Hct MCV MCH RDW Plt Count Lymph % (Auto) [place] % (Auto) Lymph # Seg Neutrophils % Seg Neuts % (Manual) Lymphocytes % (Manual) Monocytes % (Manual) Nucleated RBC % Seg Neutrophils # Seg Neutrophils # Man Lymphocytes # (Manual) Monocytes # (Manual) PT 19.5 H INR 1.54 H POC ABG pH POC ABG pCO2 24.6 L POC ABG pO2 119 H Sodium Potassium Chloride Carbon Dioxide BUN Creatinine Glucose POC Glucose 174 H Lactic Acid Calcium Phosphorus Magnesium Total Bilirubin AST Alkaline Phosphatase Total Creatine Kinase C-Reactive Protein Total Protein Albumin TSH Free T4 Urine WBC (Auto) Crossmatch 12/11/18 12/11/18 12/11/18 11:10 11:10 18:10 WBC 14.3 H RBC Hgb Hct MCV 73 L MCH 24 L RDW 21.5 H Plt Count Lymph % (Auto) [place] % (Auto) Lymph # Seg Neutrophils % Seg Neuts % (Manual) Lymphocytes % (Manual) Monocytes % (Manual) Nucleated RBC % Seg Neutrophils # Seg Neutrophils # Man Lymphocytes # (Manual) Monocytes # (Manual) PT INR POC ABG pH POC ABG pCO2 POC ABG pO2 Sodium Potassium Chloride 110.5 H Carbon Dioxide 15 L BUN 101 H Creatinine 2.4 H Glucose 119 H POC Glucose 147 H Lactic Acid Calcium 7.7 L Phosphorus Magnesium Total Bilirubin AST Alkaline Phosphatase Total Creatine Kinase C-Reactive Protein Total Protein Albumin TSH Free T4 Urine WBC (Auto) Crossmatch 12/11/18 12/12/18 12/12/18 23:25 05:37 06:03 WBC RBC Hgb Hct MCV MCH RDW Plt Count Lymph % (Auto) [place] % (Auto) Lymph # Seg Neutrophils % Seg Neuts % (Manual) Lymphocytes % (Manual) Monocytes % (Manual) Nucleated RBC % Seg Neutrophils # Seg Neutrophils # Man Lymphocytes # (Manual) Monocytes # (Manual) PT INR POC ABG pH 7.346 L POC ABG pCO2 28.3 L POC ABG pO2 120 H Sodium Potassium Chloride Carbon Dioxide BUN Creatinine Glucose POC Glucose 143 H 154 H Lactic Acid Calcium Phosphorus Magnesium Total Bilirubin AST Alkaline Phosphatase Total Creatine Kinase C-Reactive Protein Total Protein Albumin TSH Free T4 Urine WBC (Auto) Crossmatch 12/12/18 12/12/18 12/12/18 08:00 08:00 08:00 WBC 16.2 H RBC Hgb Hct MCV 74 L MCH 25 L RDW 21.9 H Plt Count 21 L Lymph % (Auto) [place] % (Auto) Lymph # Seg Neutrophils % Seg Neuts % (Manual) Lymphocytes % (Manual) Monocytes % (Manual) Nucleated RBC % Seg Neutrophils # Seg Neutrophils # Man Lymphocytes # (Manual) Monocytes # (Manual) PT 20.2 H INR 1.61 H POC ABG pH POC ABG pCO2 POC ABG pO2 Sodium Potassium Chloride 107.4 H Carbon Dioxide 16 L BUN 101 H Creatinine 2.3 H Glucose 169 H POC Glucose Lactic Acid Calcium 8.2 L Phosphorus Magnesium Total Bilirubin AST Alkaline Phosphatase Total Creatine Kinase C-Reactive Protein Total Protein Albumin TSH Free T4 Urine WBC (Auto) Crossmatch 12/12/18 12/12/18 12/13/18 12:59 18:01 04:28 WBC 18.6 H RBC Hgb Hct MCV 74 L MCH 24 L RDW 21.8 H Plt Count 34 L Lymph % (Auto) [place] % (Auto) Lymph # Seg Neutrophils % Seg Neuts % (Manual) 97.0 H Lymphocytes % (Manual) 2.0 L Monocytes % (Manual) Nucleated RBC % 1.0 H Seg Neutrophils # Seg Neutrophils # Man 18.0 H Lymphocytes # (Manual) 0.4 L Monocytes # (Manual) PT INR POC ABG pH POC ABG pCO2 POC ABG pO2 Sodium Potassium Chloride Carbon Dioxide BUN Creatinine Glucose POC Glucose 158 H 123 H Lactic Acid Calcium Phosphorus Magnesium Total Bilirubin AST Alkaline Phosphatase Total Creatine Kinase C-Reactive Protein Total Protein Albumin TSH Free T4 Urine WBC (Auto) Crossmatch 12/13/18 12/13/18 12/13/18 04:28 04:45 19:17 WBC RBC Hgb Hct MCV MCH RDW Plt Count Lymph % (Auto) [place] % (Auto) Lymph # Seg Neutrophils % Seg Neuts % (Manual) Lymphocytes % (Manual) Monocytes % (Manual) Nucleated RBC % Seg Neutrophils # Seg Neutrophils # Man Lymphocytes # (Manual) Monocytes # (Manual) PT INR POC ABG pH 7.327 L POC ABG pCO2 31.1 L POC ABG pO2 136 H Sodium Potassium Chloride 112.0 H Carbon Dioxide 17 L BUN 97 H Creatinine 2.2 H Glucose POC Glucose 106 H Lactic Acid Calcium 8.1 L Phosphorus Magnesium Total Bilirubin AST Alkaline Phosphatase Total Creatine Kinase C-Reactive Protein Total Protein Albumin TSH Free T4 Urine WBC (Auto) Crossmatch 12/13/18 12/14/18 12/14/18 23:24 03:35 03:35 WBC 22.0 H RBC Hgb Hct MCV 75 L MCH 24 L RDW 22.2 H Plt Count 44 L Lymph % (Auto) [place] % (Auto) Lymph # Seg Neutrophils % Seg Neuts % (Manual) 96.0 H Lymphocytes % (Manual) 3.0 L Monocytes % (Manual) Nucleated RBC % Seg Neutrophils # Seg Neutrophils # Man 21.1 H Lymphocytes # (Manual) 0.7 L Monocytes # (Manual) PT INR POC ABG pH POC ABG pCO2 POC ABG pO2 Sodium 136 L Potassium Chloride 107.2 H Carbon Dioxide 15 L BUN 87 H Creatinine 1.7 H Glucose 156 H POC Glucose 108 H Lactic Acid Calcium 7.7 L Phosphorus Magnesium Total Bilirubin AST Alkaline Phosphatase Total Creatine Kinase C-Reactive Protein Total Protein Albumin TSH Free T4 Urine WBC (Auto) Crossmatch 12/14/18 12/14/18 12/14/18 04:58 05:37 12:10 WBC RBC Hgb Hct MCV MCH RDW Plt Count Lymph % (Auto) [place] % (Auto) Lymph # Seg Neutrophils % Seg Neuts % (Manual) Lymphocytes % (Manual) Monocytes % (Manual) Nucleated RBC % Seg Neutrophils # Seg Neutrophils # Man Lymphocytes # (Manual) Monocytes # (Manual) PT INR POC ABG pH 7.301 L POC ABG pCO2 32.6 L POC ABG pO2 138 H Sodium Potassium Chloride Carbon Dioxide BUN Creatinine Glucose POC Glucose 178 H 208 H Lactic Acid Calcium Phosphorus Magnesium Total Bilirubin AST Alkaline Phosphatase Total Creatine Kinase C-Reactive Protein Total Protein Albumin TSH Free T4 Urine WBC (Auto) Crossmatch 12/14/18 12/14/18 12/15/18 17:44 23:16 03:37 WBC RBC Hgb Hct MCV MCH RDW Plt Count Lymph % (Auto) [place] % (Auto) Lymph # Seg Neutrophils % Seg Neuts % (Manual) Lymphocytes % (Manual) Monocytes % (Manual) Nucleated RBC % Seg Neutrophils # Seg Neutrophils # Man Lymphocytes # (Manual) Monocytes # (Manual) PT INR POC ABG pH 7.325 L POC ABG pCO2 28.6 L POC ABG pO2 Sodium Potassium Chloride Carbon Dioxide BUN Creatinine Glucose POC Glucose 172 H 123 H Lactic Acid Calcium Phosphorus Magnesium Total Bilirubin AST Alkaline Phosphatase Total Creatine Kinase C-Reactive Protein Total Protein Albumin TSH Free T4 Urine WBC (Auto) Crossmatch 12/15/18 12/15/18 12/15/18 05:30 05:30 05:43 WBC 20.1 H RBC Hgb 9.5 L Hct 29.2 L MCV 74 L MCH 24 L RDW 22.7 H Plt Count 48 L Lymph % (Auto) [place] % (Auto) Lymph # Seg Neutrophils % Seg Neuts % (Manual) 96.0 H Lymphocytes % (Manual) 1.0 L Monocytes % (Manual) Nucleated RBC % Seg Neutrophils # Seg Neutrophils # Man 19.3 H Lymphocytes # (Manual) 0.2 L Monocytes # (Manual) PT INR POC ABG pH POC ABG pCO2 POC ABG pO2 Sodium Potassium Chloride 110.8 H Carbon Dioxide 17 L BUN 83 H Creatinine 1.6 H Glucose 150 H POC Glucose 151 H Lactic Acid Calcium 7.7 L Phosphorus Magnesium Total Bilirubin AST Alkaline Phosphatase Total Creatine Kinase C-Reactive Protein Total Protein Albumin TSH Free T4 Urine WBC (Auto) Crossmatch 12/15/18 12/15/18 12/16/18 12:56 18:21 00:10 WBC RBC Hgb Hct MCV MCH RDW Plt Count Lymph % (Auto) [place] % (Auto) Lymph # Seg Neutrophils % Seg Neuts % (Manual) Lymphocytes % (Manual) Monocytes % (Manual) Nucleated RBC % Seg Neutrophils # Seg Neutrophils # Man Lymphocytes # (Manual) Monocytes # (Manual) PT INR POC ABG pH POC ABG pCO2 POC ABG pO2 Sodium Potassium Chloride Carbon Dioxide BUN Creatinine Glucose POC Glucose 190 H 143 H 174 H Lactic Acid Calcium Phosphorus Magnesium Total Bilirubin AST Alkaline Phosphatase Total Creatine Kinase C-Reactive Protein Total Protein Albumin TSH Free T4 Urine WBC (Auto) Crossmatch 12/16/18 12/16/18 12/16/18 05:24 05:30 05:30 WBC 17.1 H RBC Hgb 9.1 L Hct 28.8 L MCV 76 L MCH 24 L RDW 23.5 H Plt Count 37 L Lymph % (Auto) [place] % (Auto) Lymph # Seg Neutrophils % Seg Neuts % (Manual) Lymphocytes % (Manual) 9.0 L Monocytes % (Manual) 9.0 H Nucleated RBC % Seg Neutrophils # Seg Neutrophils # Man 9.6 H Lymphocytes # (Manual) Monocytes # (Manual) 1.5 H PT INR POC ABG pH POC ABG pCO2 POC ABG pO2 Sodium Potassium Chloride 110.8 H Carbon Dioxide 15 L BUN 81 H Creatinine 1.6 H Glucose 161 H POC Glucose 154 H Lactic Acid Calcium 7.6 L Phosphorus Magnesium Total Bilirubin AST Alkaline Phosphatase Total Creatine Kinase C-Reactive Protein Total Protein Albumin TSH Free T4 Urine WBC (Auto) Crossmatch 12/16/18 12/16/18 12/16/18 12:31 17:42 21:56 WBC RBC Hgb Hct MCV MCH RDW Plt Count Lymph % (Auto) [place] % (Auto) Lymph # Seg Neutrophils % Seg Neuts % (Manual) Lymphocytes % (Manual) Monocytes % (Manual) Nucleated RBC % Seg Neutrophils # Seg Neutrophils # Man Lymphocytes # (Manual) Monocytes # (Manual) PT INR POC ABG pH POC ABG pCO2 POC ABG pO2 Sodium Potassium Chloride Carbon Dioxide BUN Creatinine Glucose POC Glucose 172 H 173 H 118 H Lactic Acid Calcium Phosphorus Magnesium Total Bilirubin AST Alkaline Phosphatase Total Creatine Kinase C-Reactive Protein Total Protein Albumin TSH Free T4 Urine WBC (Auto) Crossmatch 12/16/18 12/17/18 12/17/18 23:38 04:24 04:24 WBC 19.2 H RBC Hgb 9.5 L Hct 29.7 L MCV 76 L MCH 24 L RDW 24.4 H Plt Count 26 L Lymph % (Auto) [place] % (Auto) Lymph # Seg Neutrophils % Seg Neuts % (Manual) Lymphocytes % (Manual) 6.0 L Monocytes % (Manual) Nucleated RBC % Seg Neutrophils # Seg Neutrophils # Man 13.1 H Lymphocytes # (Manual) Monocytes # (Manual) PT INR POC ABG pH POC ABG pCO2 POC ABG pO2 Sodium 134 L Potassium Chloride 110.0 H Carbon Dioxide 14 L BUN 83 H Creatinine 1.6 H Glucose POC Glucose 109 H Lactic Acid Calcium 7.8 L Phosphorus Magnesium Total Bilirubin AST Alkaline Phosphatase Total Creatine Kinase C-Reactive Protein Total Protein Albumin TSH Free T4 Urine WBC (Auto) Crossmatch 12/17/18 12/17/18 12/18/18 06:42 17:49 00:40 WBC RBC Hgb Hct MCV MCH RDW Plt Count Lymph % (Auto) [place] % (Auto) Lymph # Seg Neutrophils % Seg Neuts % (Manual) Lymphocytes % (Manual) Monocytes % (Manual) Nucleated RBC % Seg Neutrophils # Seg Neutrophils # Man Lymphocytes # (Manual) Monocytes # (Manual) PT INR POC ABG pH POC ABG pCO2 POC ABG pO2 Sodium Potassium Chloride 113.1 H Carbon Dioxide 13 L BUN 82 H Creatinine 1.6 H Glucose POC Glucose 66 L 109 H Lactic Acid Calcium 8.0 L Phosphorus Magnesium Total Bilirubin AST Alkaline Phosphatase Total Creatine Kinase C-Reactive Protein Total Protein Albumin TSH Free T4 Urine WBC (Auto) Crossmatch 12/18/18 12/18/18 12/18/18 04:08 04:08 12:45 WBC 26.5 H RBC 3.63 L Hgb 8.7 L Hct 26.8 L MCV 74 L MCH 24 L RDW 23.3 H Plt Count 24 L Lymph % (Auto) [place] % (Auto) Lymph # Seg Neutrophils % Seg Neuts % (Manual) Lymphocytes % (Manual) Monocytes % (Manual) Nucleated RBC % Seg Neutrophils # Seg Neutrophils # Man Lymphocytes # (Manual) Monocytes # (Manual) PT INR POC ABG pH POC ABG pCO2 POC ABG pO2 Sodium Potassium Chloride 114.3 H Carbon Dioxide 16 L BUN 82 H Creatinine 1.7 H Glucose POC Glucose 117 H Lactic Acid Calcium 7.8 L Phosphorus 5.10 H Magnesium Total Bilirubin AST Alkaline Phosphatase Total Creatine Kinase C-Reactive Protein Total Protein Albumin TSH Free T4 Urine WBC (Auto) Crossmatch 12/18/18 12/18/18 12/19/18 17:42 23:39 04:22 WBC 20.4 H RBC 3.01 L Hgb 7.2 L Hct 22.6 L MCV 75 L MCH 24 L RDW 24.5 H Plt Count 52 L D Lymph % (Auto) [place] % (Auto) Lymph # Seg Neutrophils % Seg Neuts % (Manual) Lymphocytes % (Manual) Monocytes % (Manual) Nucleated RBC % Seg Neutrophils # Seg Neutrophils # Man Lymphocytes # (Manual) Monocytes # (Manual) PT INR POC ABG pH POC ABG pCO2 POC ABG pO2 Sodium Potassium Chloride Carbon Dioxide BUN Creatinine Glucose POC Glucose 121 H 184 H Lactic Acid Calcium Phosphorus Magnesium Total Bilirubin AST Alkaline Phosphatase Total Creatine Kinase C-Reactive Protein Total Protein Albumin TSH Free T4 Urine WBC (Auto) Crossmatch 12/19/18 12/19/18 12/19/18 04:22 12:43 18:12 WBC RBC Hgb Hct MCV MCH RDW Plt Count Lymph % (Auto) [place] % (Auto) Lymph # Seg Neutrophils % Seg Neuts % (Manual) Lymphocytes % (Manual) Monocytes % (Manual) Nucleated RBC % Seg Neutrophils # Seg Neutrophils # Man Lymphocytes # (Manual) Monocytes # (Manual) PT INR POC ABG pH POC ABG pCO2 POC ABG pO2 Sodium Potassium Chloride 112.9 H Carbon Dioxide 15 L BUN 76 H Creatinine 1.8 H Glucose 107 H POC Glucose 141 H 227 H Lactic Acid Calcium 7.4 L Phosphorus Magnesium Total Bilirubin AST Alkaline Phosphatase Total Creatine Kinase C-Reactive Protein Total Protein Albumin TSH Free T4 Urine WBC (Auto) Crossmatch 12/19/18 12/19/18 12/20/18 23:55 Unknown 03:07 WBC 15.7 H RBC 2.92 L Hgb 7.2 L 7.1 L Hct 22.2 L 21.6 L MCV 74 L MCH 24 L RDW 24.3 H Plt Count 23 L Lymph % (Auto) [place] % (Auto) Lymph # Seg Neutrophils % Seg Neuts % (Manual) Lymphocytes % (Manual) Monocytes % (Manual) Nucleated RBC % Seg Neutrophils # Seg Neutrophils # Man Lymphocytes # (Manual) Monocytes # (Manual) PT INR POC ABG pH POC ABG pCO2 POC ABG pO2 Sodium Potassium Chloride Carbon Dioxide BUN Creatinine Glucose POC Glucose 174 H Lactic Acid Calcium Phosphorus Magnesium Total Bilirubin AST Alkaline Phosphatase Total Creatine Kinase C-Reactive Protein Total Protein Albumin TSH Free T4 Urine WBC (Auto) Crossmatch 12/20/18 12/20/18 12/20/18 03:07 05:20 11:00 WBC RBC Hgb Hct MCV MCH RDW Plt Count Lymph % (Auto) [place] % (Auto) Lymph # Seg Neutrophils % Seg Neuts % (Manual) Lymphocytes % (Manual) Monocytes % (Manual) Nucleated RBC % Seg Neutrophils # Seg Neutrophils # Man Lymphocytes # (Manual) Monocytes # (Manual) PT INR POC ABG pH POC ABG pCO2 POC ABG pO2 Sodium 136 L Potassium Chloride Carbon Dioxide 20 L BUN 79 H Creatinine 2.1 H Glucose 141 H POC Glucose 210 H Lactic Acid Calcium 7.5 L Phosphorus Magnesium Total Bilirubin AST Alkaline Phosphatase Total Creatine Kinase C-Reactive Protein Total Protein Albumin TSH Free T4 Urine WBC (Auto) Crossmatch See Detail 12/20/18 12/20/18 12/21/18 11:40 17:51 00:33 WBC RBC Hgb Hct MCV MCH RDW Plt Count Lymph % (Auto) [place] % (Auto) Lymph # Seg Neutrophils % Seg Neuts % (Manual) Lymphocytes % (Manual) Monocytes % (Manual) Nucleated RBC % Seg Neutrophils # Seg Neutrophils # Man Lymphocytes # (Manual) Monocytes # (Manual) PT INR POC ABG pH POC ABG pCO2 POC ABG pO2 Sodium Potassium Chloride Carbon Dioxide BUN Creatinine Glucose POC Glucose 183 H 150 H 119 H Lactic Acid Calcium Phosphorus Magnesium Total Bilirubin AST Alkaline Phosphatase Total Creatine Kinase C-Reactive Protein Total Protein Albumin TSH Free T4 Urine WBC (Auto) Crossmatch 12/21/18 12/21/18 12/21/18 05:05 07:19 07:19 WBC 11.9 H RBC 2.83 L Hgb 6.9 L Hct 20.7 L MCV 73 L MCH 24 L RDW 23.9 H Plt Count 11 L* Lymph % (Auto) [place] % (Auto) Lymph # Seg Neutrophils % Seg Neuts % (Manual) Lymphocytes % (Manual) Monocytes % (Manual) Nucleated RBC % Seg Neutrophils # Seg Neutrophils # Man Lymphocytes # (Manual) Monocytes # (Manual) PT INR POC ABG pH POC ABG pCO2 POC ABG pO2 Sodium 135 L Potassium Chloride Carbon Dioxide 21 L BUN 78 H Creatinine 2.3 H Glucose 143 H POC Glucose 165 H Lactic Acid Calcium 7.3 L Phosphorus Magnesium Total Bilirubin AST Alkaline Phosphatase Total Creatine Kinase C-Reactive Protein Total Protein Albumin TSH Free T4 Urine WBC (Auto) Crossmatch 12/21/18 12/21/18 12/21/18 11:55 17:39 18:00 WBC RBC Hgb 7.9 L Hct 23.8 L MCV MCH RDW Plt Count Lymph % (Auto) [place] % (Auto) Lymph # Seg Neutrophils % Seg Neuts % (Manual) Lymphocytes % (Manual) Monocytes % (Manual) Nucleated RBC % Seg Neutrophils # Seg Neutrophils # Man Lymphocytes # (Manual) Monocytes # (Manual) PT INR POC ABG pH POC ABG pCO2 POC ABG pO2 Sodium Potassium Chloride Carbon Dioxide BUN Creatinine Glucose POC Glucose 125 H 108 H Lactic Acid Calcium Phosphorus Magnesium Total Bilirubin AST Alkaline Phosphatase Total Creatine Kinase C-Reactive Protein Total Protein Albumin TSH Free T4 Urine WBC (Auto) Crossmatch 12/21/18 12/22/18 12/22/18 23:55 05:35 05:35 WBC 11.8 H RBC Hgb 9.4 L Hct 28.3 L MCV 76 L MCH 25 L RDW 24.5 H Plt Count 26 L D Lymph % (Auto) [place] % (Auto) Lymph # Seg Neutrophils % Seg Neuts % (Manual) Lymphocytes % (Manual) Monocytes % (Manual) Nucleated RBC % Seg Neutrophils # Seg Neutrophils # Man Lymphocytes # (Manual) Monocytes # (Manual) PT INR POC ABG pH POC ABG pCO2 POC ABG pO2 Sodium 132 L Potassium Chloride Carbon Dioxide 21 L BUN 79 H Creatinine 2.3 H Glucose 131 H POC Glucose 126 H Lactic Acid Calcium 7.4 L Phosphorus Magnesium Total Bilirubin AST Alkaline Phosphatase Total Creatine Kinase C-Reactive Protein Total Protein Albumin TSH Free T4 Urine WBC (Auto) Crossmatch 12/22/18 12/22/18 12/22/18 06:34 11:39 17:29 WBC RBC Hgb Hct MCV MCH RDW Plt Count Lymph % (Auto) [place] % (Auto) Lymph # Seg Neutrophils % Seg Neuts % (Manual) Lymphocytes % (Manual) Monocytes % (Manual) Nucleated RBC % Seg Neutrophils # Seg Neutrophils # Man Lymphocytes # (Manual) Monocytes # (Manual) PT INR POC ABG pH POC ABG pCO2 POC ABG pO2 Sodium Potassium Chloride Carbon Dioxide BUN Creatinine Glucose POC Glucose 126 H 176 H 180 H Lactic Acid Calcium Phosphorus Magnesium Total Bilirubin AST Alkaline Phosphatase Total Creatine Kinase C-Reactive Protein Total Protein Albumin TSH Free T4 Urine WBC (Auto) Crossmatch 12/22/18 12/23/18 12/23/18 23:19 05:56 08:50 WBC RBC Hgb Hct MCV MCH RDW Plt Count Lymph % (Auto) [place] % (Auto) Lymph # Seg Neutrophils % Seg Neuts % (Manual) Lymphocytes % (Manual) Monocytes % (Manual) Nucleated RBC % Seg Neutrophils # Seg Neutrophils # Man Lymphocytes # (Manual) Monocytes # (Manual) PT INR POC ABG pH POC ABG pCO2 POC ABG pO2 Sodium 134 L Potassium Chloride Carbon Dioxide BUN 80 H Creatinine 2.4 H Glucose 133 H POC Glucose 135 H 174 H Lactic Acid Calcium 7.0 L Phosphorus Magnesium Total Bilirubin AST Alkaline Phosphatase Total Creatine Kinase C-Reactive Protein Total Protein Albumin TSH Free T4 Urine WBC (Auto) Crossmatch 12/23/18 12/23/18 12/24/18 08:50 11:18 00:18 WBC RBC 3.29 L Hgb 8.5 L Hct 24.9 L MCV 76 L MCH 26 L RDW 24.9 H Plt Count 7 L* Lymph % (Auto) [place] % (Auto) Lymph # Seg Neutrophils % Seg Neuts % (Manual) Lymphocytes % (Manual) Monocytes % (Manual) Nucleated RBC % Seg Neutrophils # Seg Neutrophils # Man Lymphocytes # (Manual) Monocytes # (Manual) PT INR POC ABG pH POC ABG pCO2 POC ABG pO2 Sodium Potassium Chloride Carbon Dioxide BUN Creatinine Glucose POC Glucose 164 H 64 L Lactic Acid Calcium Phosphorus Magnesium Total Bilirubin AST Alkaline Phosphatase Total Creatine Kinase C-Reactive Protein Total Protein Albumin TSH Free T4 Urine WBC (Auto) Crossmatch 12/24/18 12/24/18 12/24/18 00:56 06:00 06:00 WBC RBC Hgb 9.7 L Hct 29.1 L MCV 76 L MCH 25 L RDW 24.9 H Plt Count 30 L D Lymph % (Auto) [place] % (Auto) Lymph # Seg Neutrophils % Seg Neuts % (Manual) 86.0 H Lymphocytes % (Manual) 0 L Monocytes % (Manual) Nucleated RBC % Seg Neutrophils # Seg Neutrophils # Man 9.1 H Lymphocytes # (Manual) 0.0 L Monocytes # (Manual) PT INR POC ABG pH POC ABG pCO2 POC ABG pO2 Sodium 132 L Potassium Chloride Carbon Dioxide BUN 79 H Creatinine 2.4 H Glucose 117 H POC Glucose 162 H Lactic Acid Calcium 7.5 L Phosphorus Magnesium Total Bilirubin AST 48 H Alkaline Phosphatase 252 H Total Creatine Kinase C-Reactive Protein Total Protein 5.5 L Albumin 1.6 L TSH Free T4 Urine WBC (Auto) Crossmatch 12/24/18 12/24/18 12/24/18 06:00 12:03 18:45 WBC RBC Hgb Hct MCV MCH RDW Plt Count Lymph % (Auto) [place] % (Auto) Lymph # Seg Neutrophils % Seg Neuts % (Manual) Lymphocytes % (Manual) Monocytes % (Manual) Nucleated RBC % Seg Neutrophils # Seg Neutrophils # Man Lymphocytes # (Manual) Monocytes # (Manual) PT INR POC ABG pH POC ABG pCO2 POC ABG pO2 Sodium Potassium Chloride Carbon Dioxide BUN Creatinine Glucose POC Glucose 153 H 133 H Lactic Acid Calcium Phosphorus 6.60 H Magnesium 2.40 H Total Bilirubin AST Alkaline Phosphatase Total Creatine Kinase C-Reactive Protein Total Protein Albumin TSH Free T4 Urine WBC (Auto) Crossmatch 12/24/18 12/25/18 12/25/18 23:08 06:36 12:05 WBC RBC Hgb Hct MCV MCH RDW Plt Count Lymph % (Auto) [place] % (Auto) Lymph # Seg Neutrophils % Seg Neuts % (Manual) Lymphocytes % (Manual) Monocytes % (Manual) Nucleated RBC % Seg Neutrophils # Seg Neutrophils # Man Lymphocytes # (Manual) Monocytes # (Manual) PT INR POC ABG pH POC ABG pCO2 POC ABG pO2 Sodium Potassium Chloride Carbon Dioxide BUN Creatinine Glucose POC Glucose 125 H 176 H 161 H Lactic Acid Calcium Phosphorus Magnesium Total Bilirubin AST Alkaline Phosphatase Total Creatine Kinase C-Reactive Protein Total Protein Albumin TSH Free T4 Urine WBC (Auto) Crossmatch 12/25/18 12/26/18 12/26/18 18:33 00:07 05:09 WBC RBC Hgb Hct MCV MCH RDW Plt Count Lymph % (Auto) [place] % (Auto) Lymph # Seg Neutrophils % Seg Neuts % (Manual) Lymphocytes % (Manual) Monocytes % (Manual) Nucleated RBC % Seg Neutrophils # Seg Neutrophils # Man Lymphocytes # (Manual) Monocytes # (Manual) PT INR POC ABG pH POC ABG pCO2 POC ABG pO2 Sodium Potassium Chloride Carbon Dioxide BUN Creatinine Glucose POC Glucose 237 H 178 H 171 H Lactic Acid Calcium Phosphorus Magnesium Total Bilirubin AST Alkaline Phosphatase Total Creatine Kinase C-Reactive Protein Total Protein Albumin TSH Free T4 Urine WBC (Auto) Crossmatch 12/26/18 12/26/18 12/26/18 11:27 17:52 23:39 WBC RBC Hgb Hct MCV MCH RDW Plt Count Lymph % (Auto) [place] % (Auto) Lymph # Seg Neutrophils % Seg Neuts % (Manual) Lymphocytes % (Manual) Monocytes % (Manual) Nucleated RBC % Seg Neutrophils # Seg Neutrophils # Man Lymphocytes # (Manual) Monocytes # (Manual) PT INR POC ABG pH POC ABG pCO2 POC ABG pO2 Sodium Potassium Chloride Carbon Dioxide BUN Creatinine Glucose POC Glucose 205 H 166 H 122 H Lactic Acid Calcium Phosphorus Magnesium Total Bilirubin AST Alkaline Phosphatase Total Creatine Kinase C-Reactive Protein Total Protein Albumin TSH Free T4 Urine WBC (Auto) Crossmatch 12/27/18 12/27/18 12/27/18 06:21 14:29 16:20 WBC RBC 3.01 L Hgb 7.6 L Hct 23.0 L MCV 76 L MCH 25 L RDW 24.4 H Plt Count 28 L Lymph % (Auto) 8.9 L [place] % (Auto) 7.4 H Lymph # 0.6 L Seg Neutrophils % 83.4 H Seg Neuts % (Manual) Lymphocytes % (Manual) Monocytes % (Manual) Nucleated RBC % Seg Neutrophils # Seg Neutrophils # Man Lymphocytes # (Manual) Monocytes # (Manual) PT INR POC ABG pH POC ABG pCO2 POC ABG pO2 Sodium Potassium Chloride Carbon Dioxide BUN Creatinine Glucose POC Glucose 174 H 197 H Lactic Acid Calcium Phosphorus Magnesium Total Bilirubin AST Alkaline Phosphatase Total Creatine Kinase C-Reactive Protein Total Protein Albumin TSH Free T4 Urine WBC (Auto) Crossmatch 12/27/18 12/27/18 12/27/18 16:20 17:42 20:16 WBC RBC Hgb Hct MCV MCH RDW Plt Count Lymph % (Auto) [place] % (Auto) Lymph # Seg Neutrophils % Seg Neuts % (Manual) Lymphocytes % (Manual) Monocytes % (Manual) Nucleated RBC % Seg Neutrophils # Seg Neutrophils # Man Lymphocytes # (Manual) Monocytes # (Manual) PT INR POC ABG pH POC ABG pCO2 POC ABG pO2 Sodium Potassium Chloride Carbon Dioxide 21 L BUN 106 H Creatinine 3.0 H Glucose 184 H POC Glucose 211 H Lactic Acid Calcium 6.8 L Phosphorus Magnesium Total Bilirubin AST Alkaline Phosphatase Total Creatine Kinase C-Reactive Protein Total Protein Albumin TSH Free T4 Urine WBC (Auto) Crossmatch See Detail 12/28/18 12/28/18 12/28/18 00:39 01:03 06:42 WBC RBC Hgb 8.2 L Hct 24.6 L MCV MCH RDW Plt Count Lymph % (Auto) [place] % (Auto) Lymph # Seg Neutrophils % Seg Neuts % (Manual) Lymphocytes % (Manual) Monocytes % (Manual) Nucleated RBC % Seg Neutrophils # Seg Neutrophils # Man Lymphocytes # (Manual) Monocytes # (Manual) PT INR POC ABG pH POC ABG pCO2 POC ABG pO2 Sodium Potassium Chloride Carbon Dioxide BUN Creatinine Glucose POC Glucose 135 H 160 H Lactic Acid Calcium Phosphorus Magnesium Total Bilirubin AST Alkaline Phosphatase Total Creatine Kinase C-Reactive Protein Total Protein Albumin TSH Free T4 Urine WBC (Auto) Crossmatch 12/28/18 12/28/18 12/28/18 07:30 07:30 11:33 WBC RBC 3.43 L Hgb 9.3 L Hct 27.5 L MCV MCH 27 L RDW 24.0 H Plt Count 34 L Lymph % (Auto) [place] % (Auto) Lymph # Seg Neutrophils % 86.0 H Seg Neuts % (Manual) 88.0 H Lymphocytes % (Manual) 6.0 L Monocytes % (Manual) Nucleated RBC % Seg Neutrophils # Seg Neutrophils # Man Lymphocytes # (Manual) 0.4 L Monocytes # (Manual) PT INR POC ABG pH POC ABG pCO2 POC ABG pO2 Sodium Potassium Chloride Carbon Dioxide 20 L BUN 101 H Creatinine 2.8 H Glucose 155 H POC Glucose 171 H Lactic Acid Calcium 6.5 L Phosphorus 7.40 H Magnesium Total Bilirubin AST Alkaline Phosphatase Total Creatine Kinase C-Reactive Protein Total Protein Albumin TSH Free T4 Urine WBC (Auto) Crossmatch 12/28/18 12/28/18 12/29/18 17:16 23:53 05:45 WBC RBC Hgb Hct 29.7 L MCV MCH 27 L RDW 23.8 H Plt Count 32 L Lymph % (Auto) [place] % (Auto) Lymph # Seg Neutrophils % Seg Neuts % (Manual) 94.0 H Lymphocytes % (Manual) 4.0 L Monocytes % (Manual) Nucleated RBC % 1.0 H Seg Neutrophils # Seg Neutrophils # Man Lymphocytes # (Manual) 0.2 L Monocytes # (Manual) PT INR POC ABG pH POC ABG pCO2 POC ABG pO2 Sodium Potassium Chloride Carbon Dioxide BUN Creatinine Glucose POC Glucose 151 H 108 H Lactic Acid Calcium Phosphorus Magnesium Total Bilirubin AST Alkaline Phosphatase Total Creatine Kinase C-Reactive Protein Total Protein Albumin TSH Free T4 Urine WBC (Auto) Crossmatch 12/29/18 12/29/18 05:45 12:40 WBC RBC Hgb Hct MCV MCH RDW Plt Count Lymph % (Auto) [place] % (Auto) Lymph # Seg Neutrophils % Seg Neuts % (Manual) Lymphocytes % (Manual) Monocytes % (Manual) Nucleated RBC % Seg Neutrophils # Seg Neutrophils # Man Lymphocytes # (Manual) Monocytes # (Manual) PT INR POC ABG pH POC ABG pCO2 POC ABG pO2 Sodium Potassium Chloride Carbon Dioxide 20 L BUN 103 H Creatinine 2.7 H Glucose POC Glucose 108 H Lactic Acid Calcium 6.6 L Phosphorus 7.20 H Magnesium Total Bilirubin AST 49 H Alkaline Phosphatase 309 H Total Creatine Kinase C-Reactive Protein Total Protein 4.6 L Albumin 1.6 L TSH Free T4 Urine WBC (Auto) Crossmatch Chest x-ray: report reviewed, image reviewed Allied health notes reviewed: nursing
--- NOTE | 2018-12-29 16:30 | Gastroenterology Progress Note ---
Assessment and Plan - Patient Problems (1) Rectal bleed Current Visit: Yes Status: Acute Plan to address problem: - Given bed-bound state with tube feeds and irregular bowels, most likely dx is either hemorrhoids or stercoral ulcer. - Stool is now brown, and hct shaylee appropriately after transfusion (has been anemic during this hospitalization). - No intolerance of tube feeds nor signs of obstruction or abdominal distress. - Recommend continue tube feeds and PPI therapy. - No plans for endoscopy given comorbids/poor prognosis unless clinical progr ession. - Will sign off; please call if needed. Subjective Date of service: 12/29/18 Principal diagnosis: Rectal Bleed Interval history: No further rectal bleeding today, and the patient had a large brown BM yesterday. There is no witnessed emesis or intolerance of tube feeds. Objective - Constitutional Vitals: Temp Pulse Resp BP Pulse Ox 99.4 F 67 18 125/34 98 12/29/18 12:00 12/29/18 15:05 12/29/18 15:05 12/29/18 15:00 12/29/18 15:00 General appearance: other (Vent/not sedated-not responsive) - Respiratory Respiratory effort: normal Respiratory: bilateral: CTA (Vent) - Cardiovascular Rhythm: regular Heart Sounds: Present: S1 & S2 - Gastrointestinal General gastrointestinal: Present: soft, non-tender, non-distended Rectal Exam: stool brown (In diaper) - Integumentary Integumentary: Present: clear, warm, dry - Labs CBC & Chem 7: 12/29/18 05:45 12/29/18 05:45 Labs: Laboratory Results - last 24 hr 12/28/18 12/28/18 12/29/18 17:16 23:53 05:45 WBC 5.6 RBC 3.73 Hgb 10.1 Hct 29.7 L MCV 80 MCH 27 L MCHC 34 RDW 23.8 H Plt Count 32 L Add Manual Diff Complete Total Counted 100 Seg Neuts % (Manual) 94.0 H Band Neutrophils % 1.0 Lymphocytes % (Manual) 4.0 L Reactive Lymphs % (Man) 0 Monocytes % (Manual) 0 Eosinophils % (Manual) 1.0 Basophils % (Manual) 0 Metamyelocytes % 0 Myelocytes % 0 Promyelocytes % 0 Blast Cells % 0 Nucleated RBC % 1.0 H Seg Neutrophils # Man 5.3 Band Neutrophils # 0.1 Lymphocytes # (Manual) 0.2 L Abs React Lymphs (Man) 0.0 Monocytes # (Manual) 0.0 Eosinophils # (Manual) 0.1 Basophils # (Manual) 0.0 Metamyelocytes # 0.0 Myelocytes # 0.0 Promyelocytes # 0.0 Blast Cells # 0.0 WBC Morphology Not Reportable Hypersegmented Neuts Not Reportable Hyposegmented Neuts Not Reportable Hypogranular Neuts Not Reportable Smudge Cells Not Reportable Toxic Granulation Not Reportable Toxic Vacuolation Not Reportable Dohle Bodies Not Reportable Pelger-Huet Anomaly Not Reportable Mark Rods Not Reportable Platelet Estimate Appears decreased Clumped Platelets Not Reportable Plt Clumps, EDTA Not Reportable Large Platelets Not Reportable Giant Platelets Few Platelet Satelliting Not Reportable Plt Morphology Comment Not Reportable RBC Morphology Not Reportable Dimorphic RBCs Not Reportable Polychromasia Not Reportable Hypochromasia Few Poikilocytosis Not Reportable Anisocytosis Not Reportable Microcytosis Not Reportable Macrocytosis Not Reportable Spherocytes Few Pappenheimer Bodies Not Reportable Sickle Cells Not Reportable Target Cells 1+ Tear Drop Cells Not Reportable Ovalocytes Not Reportable Helmet Cells Not Reportable [place] Bodies Not Reportable [place] Rings Not Reportable Aneesh Cells Not Reportable Bite Cells Not Reportable Crenated Cell Not Reportable Elliptocytes Not Reportable Acanthocytes (Spur) Not Reportable Rouleaux Not Reportable Hemoglobin C Crystals Not Reportable Schistocytes Not Reportable Malaria parasites Not Reportable Stef Bodies Not Reportable Hem Pathologist Commnt No Sodium Potassium Chloride Carbon Dioxide Anion Gap BUN Creatinine Estimated GFR BUN/Creatinine Ratio Glucose POC Glucose 151 H 108 H Calcium Phosphorus Magnesium Total Bilirubin AST ALT Alkaline Phosphatase Total Protein Albumin Albumin/Globulin Ratio 12/29/18 12/29/18 12/29/18 05:45 05:46 12:40 WBC RBC Hgb Hct MCV MCH MCHC RDW Plt Count Add Manual Diff Total Counted Seg Neuts % (Manual) Band Neutrophils % Lymphocytes % (Manual) Reactive Lymphs % (Man) Monocytes % (Manual) Eosinophils % (Manual) Basophils % (Manual) Metamyelocytes % Myelocytes % Promyelocytes % Blast Cells % Nucleated RBC % Seg Neutrophils # Man Band Neutrophils # Lymphocytes # (Manual) Abs React Lymphs (Man) Monocytes # (Manual) Eosinophils # (Manual) Basophils # (Manual) Metamyelocytes # Myelocytes # Promyelocytes # Blast Cells # WBC Morphology Hypersegmented Neuts Hyposegmented Neuts Hypogranular Neuts Smudge Cells Toxic Granulation Toxic Vacuolation Dohle Bodies Pelger-Huet Anomaly Mark Rods Platelet Estimate Clumped Platelets Plt Clumps, EDTA Large Platelets Giant Platelets Platelet Satelliting Plt Morphology Comment RBC Morphology Dimorphic RBCs Polychromasia Hypochromasia Poikilocytosis Anisocytosis Microcytosis Macrocytosis Spherocytes Pappenheimer Bodies Sickle Cells Target Cells Tear Drop Cells Ovalocytes Helmet Cells [place] Bodies [place] Rings [place] Cells Bite Cells Crenated Cell Elliptocytes Acanthocytes (Spur) Rouleaux Hemoglobin C Crystals Schistocytes Malaria parasites Stef Bodies Hem Pathologist Commnt Sodium 141 Potassium 3.7 Chloride 105.4 Carbon Dioxide 20 L Anion Gap 19 BUN 103 H Creatinine 2.7 H Estimated GFR 20 BUN/Creatinine Ratio 38 Glucose 97 POC Glucose 97 108 H Calcium 6.6 L Phosphorus 7.20 H Magnesium 2.30 Total Bilirubin 0.40 AST 49 H ALT 16 Alkaline Phosphatase 309 H Total Protein 4.6 L Albumin 1.6 L Albumin/Globulin Ratio 0.5
[2018-12-30] MEDS: HumaLOG SUB-Q SCH ×4 (01:00→18:48)
[2018-12-30] MEDS: DUONEB *Not for PRN Use IH SCH ×5 (03:05→19:06)
[2018-12-30] MEDS: LOPRESSOR PO SCH ×2 (08:45→18:42)
[2018-12-30] MEDS: PREVACID SOLUTAB FEEDTUBE SCH ×2 (09:52→21:33)
[2018-12-30] MEDS: APRESOLINE PO SCH ×3 (09:53→21:25)
[2018-12-30] MEDS: PROAMATINE PO SCH (09:54)
[2018-12-30] MEDS: NORVASC PO SCH (09:54)
[2018-12-30] MEDS: SODIUM CHLORIDE FLUSH SYRINGE 10 ML IV SCH ×2 (10:00→21:34)
--- NOTE | 2018-12-30 10:13 | Progress Note ---
Assessment and Plan 88 y/o female with acute respiratory failure, altered mental state, presumptive acute renal failure and hypotension with thrombocytopenia and dirty urine analysis. 1. Granddaughter has now agreed to trach and peg. Will alert surgery so they can schedule flory 2. Stop midodrine therapy 3. monitor platetelets. hold on transfusion until we know when surgery will take place 4. Attempt PSV but place back on rate once apnea occurs 5. Follow any new renal recs CCT 31 minutes. Subjective Date of service: 12/30/18 Principal diagnosis: Rectal Bleed Interval history: No acute events. Remains vented. No family present. Continues to have apnea on PSV trials but only on minimal full support. CM spoke with Grand daughter over the phone and she has agreed to trach and peg. Objective Vital Signs - 12hr 12/29/18 12/29/18 12/29/18 22:29 23:00 23:14 Temperature Pulse Rate 64 63 64 Pulse Rate [ From Monitor] Pulse Rate [ Throughout] Respiratory 18 Rate Respiratory Rate [ Throughout] Blood Pressure 129/32 123/29 129/32 O2 Sat by Pulse 99 100 Oximetry 12/29/18 12/30/18 12/30/18 23:33 00:00 01:00 Temperature 98.9 F Pulse Rate 63 61 65 Pulse Rate [ 61 From Monitor] Pulse Rate [ Throughout] Respiratory 18 18 18 Rate Respiratory Rate [ Throughout] Blood Pressure 135/32 119/29 116/38 O2 Sat by Pulse 100 99 100 Oximetry 12/30/18 12/30/18 12/30/18 02:00 03:00 04:00 Temperature 98.8 F Pulse Rate 62 61 61 Pulse Rate [ 62 63 From Monitor] Pulse Rate [ 67 Throughout] Respiratory 18 15 18 Rate Respiratory 18 Rate [ Throughout] Blood Pressure 115/29 118/32 103/43 O2 Sat by Pulse 100 99 100 Oximetry 12/30/18 12/30/18 12/30/18 05:00 06:00 07:00 Temperature Pulse Rate 61 60 60 Pulse Rate [ From Monitor] Pulse Rate [ Throughout] Respiratory 18 18 15 Rate Respiratory Rate [ Throughout] Blood Pressure 103/43 112/34 116/38 O2 Sat by Pulse 100 100 100 Oximetry 12/30/18 12/30/18 12/30/18 07:14 07:18 08:00 Temperature 97.5 F L Pulse Rate 60 60 Pulse Rate [ From Monitor] Pulse Rate [ 60 Throughout] Respiratory 18 Rate Respiratory 18 Rate [ Throughout] Blood Pressure 141/43 124/32 O2 Sat by Pulse 100 100 Oximetry 12/30/18 12/30/18 12/30/18 08:45 09:00 09:53 Temperature Pulse Rate 63 60 63 Pulse Rate [ From Monitor] Pulse Rate [ Throughout] Respiratory 18 Rate Respiratory Rate [ Throughout] Blood Pressure 122/44 113/32 122/44 O2 Sat by Pulse 100 Oximetry 12/30/18 09:54 Temperature Pulse Rate 63 Pulse Rate [ From Monitor] Pulse Rate [ Throughout] Respiratory Rate Respiratory Rate [ Throughout] Blood Pressure 122/44 O2 Sat by Pulse Oximetry Constitutional: no acute distress, comatose, other (on vent cmv) Eyes: non-icteric ENT: oropharynx moist, other (ETT in position, large/edematous tongue) Neck: supple Effort: normal Ascultation: Bilateral: clear, diminished breath sounds, other (coarse BS bilaterally) Cardiovascular: regular rate and rhythm, other (pacemaker rhythm) Gastrointestinal: normoactive bowel sounds, non-distended Integumentary: normal Extremities: no cyanosis, no edema, pink and warm Neurologic: pupils equal and round, other (comatose, flaccid extremities, does not track or follow commands, + Cough, Apnea on PSV) Psychiatric: other (unable to assess) CBC and BMP: 12/29/18 05:45 12/29/18 05:45 ABG, PT/INR, D-dimer: ABG POC ABG pH 7.325 (7.35-7.45) L 12/15/18 03:37 POC ABG pCO2 28.6 (35-45) L 12/15/18 03:37 POC ABG pO2 105 (80-105) 12/15/18 03:37 POC ABG HCO3 14.9 12/15/18 03:37 POC ABG Total CO2 16 12/15/18 03:37 POC ABG O2 Sat 98 12/15/18 03:37 PT/INR, D-dimer PT 20.2 Sec. (12.2-14.9) H 12/12/18 08:00 INR 1.61 (0.87-1.13) H 12/12/18 08:00 Abnormal lab findings: Abnormal Labs 12/08/18 12/08/18 12/08/18 12:58 13:40 13:40 WBC RBC Hgb Hct MCV MCH RDW Plt Count Lymph % (Auto) White % (Auto) Lymph # Seg Neutrophils % Seg Neuts % (Manual) Lymphocytes % (Manual) Monocytes % (Manual) Nucleated RBC % Seg Neutrophils # Seg Neutrophils # Man Lymphocytes # (Manual) Monocytes # (Manual) PT INR POC ABG pH POC ABG pCO2 POC ABG pO2 Sodium Potassium Chloride Carbon Dioxide BUN Creatinine Glucose POC Glucose 143 H Lactic Acid Calcium Phosphorus Magnesium Total Bilirubin AST Alkaline Phosphatase Total Creatine Kinase C-Reactive Protein Total Protein Albumin TSH Free T4 Urine WBC (Auto) 157.0 H Crossmatch See Detail 12/08/18 12/08/18 12/08/18 13:40 13:40 13:40 WBC RBC 3.06 L Hgb 6.8 L Hct 21.1 L MCV 69 L MCH 22 L RDW 16.2 H Plt Count 56 L Lymph % (Auto) White % (Auto) Lymph # Seg Neutrophils % Seg Neuts % (Manual) Lymphocytes % (Manual) 2.0 L Monocytes % (Manual) Nucleated RBC % Seg Neutrophils # Seg Neutrophils # Man Lymphocytes # (Manual) 0.2 L Monocytes # (Manual) PT INR POC ABG pH POC ABG pCO2 POC ABG pO2 Sodium Potassium 3.2 L Chloride Carbon Dioxide 18 L BUN 64 H Creatinine 1.5 H Glucose 145 H POC Glucose Lactic Acid 4.00 H* Calcium 7.7 L Phosphorus Magnesium Total Bilirubin AST Alkaline Phosphatase Total Creatine Kinase 258 H C-Reactive Protein Total Protein 4.6 L Albumin 1.8 L TSH Free T4 Urine WBC (Auto) Crossmatch 12/08/18 12/08/18 12/08/18 14:29 15:21 16:06 WBC RBC Hgb Hct MCV MCH RDW Plt Count Lymph % (Auto) White % (Auto) Lymph # Seg Neutrophils % Seg Neuts % (Manual) Lymphocytes % (Manual) Monocytes % (Manual) Nucleated RBC % Seg Neutrophils # Seg Neutrophils # Man Lymphocytes # (Manual) Monocytes # (Manual) PT 20.5 H INR 1.64 H POC ABG pH POC ABG pCO2 34.2 L POC ABG pO2 465 H Sodium Potassium Chloride Carbon Dioxide BUN Creatinine Glucose POC Glucose Lactic Acid 3.00 H* Calcium Phosphorus Magnesium Total Bilirubin AST Alkaline Phosphatase Total Creatine Kinase C-Reactive Protein Total Protein Albumin TSH Free T4 Urine WBC (Auto) Crossmatch 12/09/18 12/09/18 12/09/18 02:31 05:36 05:36 WBC 14.5 H RBC Hgb Hct MCV 75 L MCH 25 L RDW 20.4 H Plt Count 68 L Lymph % (Auto) White % (Auto) Lymph # Seg Neutrophils % Seg Neuts % (Manual) 81.0 H Lymphocytes % (Manual) 1.0 L Monocytes % (Manual) Nucleated RBC % Seg Neutrophils # Seg Neutrophils # Man 11.7 H Lymphocytes # (Manual) 0.1 L Monocytes # (Manual) PT INR POC ABG pH POC ABG pCO2 POC ABG pO2 Sodium Potassium Chloride 107.6 H Carbon Dioxide 18 L BUN 75 H Creatinine 1.9 H Glucose 136 H POC Glucose 152 H Lactic Acid Calcium 7.9 L Phosphorus Magnesium Total Bilirubin 1.60 H AST 44 H Alkaline Phosphatase Total Creatine Kinase C-Reactive Protein Total Protein 5.2 L Albumin 2.4 L TSH Free T4 Urine WBC (Auto) Crossmatch 12/09/18 12/09/18 12/09/18 05:43 10:47 13:46 WBC RBC Hgb Hct MCV MCH RDW Plt Count Lymph % (Auto) White % (Auto) Lymph # Seg Neutrophils % Seg Neuts % (Manual) Lymphocytes % (Manual) Monocytes % (Manual) Nucleated RBC % Seg Neutrophils # Seg Neutrophils # Man Lymphocytes # (Manual) Monocytes # (Manual) PT INR POC ABG pH 7.308 L POC ABG pCO2 POC ABG pO2 183 H Sodium Potassium Chloride Carbon Dioxide BUN Creatinine Glucose POC Glucose 150 H 162 H Lactic Acid Calcium Phosphorus Magnesium Total Bilirubin AST Alkaline Phosphatase Total Creatine Kinase C-Reactive Protein Total Protein Albumin TSH Free T4 Urine WBC (Auto) Crossmatch 12/09/18 12/09/18 12/09/18 15:54 15:54 16:40 WBC RBC Hgb Hct MCV MCH RDW Plt Count Lymph % (Auto) White % (Auto) Lymph # Seg Neutrophils % Seg Neuts % (Manual) Lymphocytes % (Manual) Monocytes % (Manual) Nucleated RBC % Seg Neutrophils # Seg Neutrophils # Man Lymphocytes # (Manual) Monocytes # (Manual) PT INR POC ABG pH POC ABG pCO2 POC ABG pO2 Sodium Potassium Chloride Carbon Dioxide BUN Creatinine Glucose POC Glucose 197 H Lactic Acid Calcium Phosphorus Magnesium Total Bilirubin AST Alkaline Phosphatase Total Creatine Kinase C-Reactive Protein Total Protein Albumin TSH 0.268 L Free T4 0.58 L Urine WBC (Auto) Crossmatch 12/09/18 12/09/18 12/09/18 18:18 18:18 21:51 WBC RBC Hgb Hct MCV MCH RDW Plt Count Lymph % (Auto) White % (Auto) Lymph # Seg Neutrophils % Seg Neuts % (Manual) Lymphocytes % (Manual) Monocytes % (Manual) Nucleated RBC % Seg Neutrophils # Seg Neutrophils # Man Lymphocytes # (Manual) Monocytes # (Manual) PT INR POC ABG pH POC ABG pCO2 POC ABG pO2 Sodium Potassium Chloride 108.2 H Carbon Dioxide 16 L BUN 89 H Creatinine 2.3 H Glucose 180 H POC Glucose 198 H Lactic Acid Calcium 7.9 L Phosphorus Magnesium Total Bilirubin AST Alkaline Phosphatase Total Creatine Kinase C-Reactive Protein 19.60 H Total Protein Albumin TSH Free T4 Urine WBC (Auto) Crossmatch 12/10/18 12/10/18 12/10/18 01:59 04:14 04:38 WBC 11.5 H RBC Hgb Hct MCV 75 L MCH 25 L RDW 21.1 H Plt Count 81 L Lymph % (Auto) 5.6 L White % (Auto) Lymph # 0.6 L Seg Neutrophils % 89.8 H Seg Neuts % (Manual) Lymphocytes % (Manual) Monocytes % (Manual) Nucleated RBC % Seg Neutrophils # 10.3 H Seg Neutrophils # Man Lymphocytes # (Manual) Monocytes # (Manual) PT INR POC ABG pH 7.273 L POC ABG pCO2 32.1 L POC ABG pO2 161 H Sodium Potassium Chloride Carbon Dioxide BUN Creatinine Glucose POC Glucose 219 H Lactic Acid Calcium Phosphorus Magnesium Total Bilirubin AST Alkaline Phosphatase Total Creatine Kinase C-Reactive Protein Total Protein Albumin TSH Free T4 Urine WBC (Auto) Crossmatch 12/10/18 12/10/18 12/10/18 04:38 05:07 07:26 WBC RBC Hgb Hct MCV MCH RDW Plt Count Lymph % (Auto) White % (Auto) Lymph # Seg Neutrophils % Seg Neuts % (Manual) Lymphocytes % (Manual) Monocytes % (Manual) Nucleated RBC % Seg Neutrophils # Seg Neutrophils # Man Lymphocytes # (Manual) Monocytes # (Manual) PT INR POC ABG pH POC ABG pCO2 POC ABG pO2 Sodium Potassium Chloride 112.5 H Carbon Dioxide 14 L BUN 94 H Creatinine 2.4 H Glucose 207 H POC Glucose 221 H 212 H Lactic Acid Calcium 7.7 L Phosphorus Magnesium Total Bilirubin AST Alkaline Phosphatase Total Creatine Kinase C-Reactive Protein Total Protein Albumin TSH Free T4 Urine WBC (Auto) Crossmatch 12/10/18 12/10/18 12/10/18 10:40 11:15 14:21 WBC RBC Hgb Hct MCV MCH RDW Plt Count Lymph % (Auto) White % (Auto) Lymph # Seg Neutrophils % Seg Neuts % (Manual) Lymphocytes % (Manual) Monocytes % (Manual) Nucleated RBC % Seg Neutrophils # Seg Neutrophils # Man Lymphocytes # (Manual) Monocytes # (Manual) PT 21.4 H INR 1.73 H POC ABG pH 7.214 L POC ABG pCO2 32.8 L POC ABG pO2 Sodium Potassium Chloride Carbon Dioxide BUN Creatinine Glucose POC Glucose 227 H Lactic Acid Calcium Phosphorus Magnesium Total Bilirubin AST Alkaline Phosphatase Total Creatine Kinase C-Reactive Protein Total Protein Albumin TSH Free T4 Urine WBC (Auto) Crossmatch 12/10/18 12/10/18 12/11/18 15:47 22:38 03:36 WBC RBC Hgb Hct MCV MCH RDW Plt Count Lymph % (Auto) White % (Auto) Lymph # Seg Neutrophils % Seg Neuts % (Manual) Lymphocytes % (Manual) Monocytes % (Manual) Nucleated RBC % Seg Neutrophils # Seg Neutrophils # Man Lymphocytes # (Manual) Monocytes # (Manual) PT INR POC ABG pH POC ABG pCO2 26.2 L POC ABG pO2 138 H Sodium Potassium Chloride Carbon Dioxide BUN Creatinine Glucose POC Glucose 202 H 259 H Lactic Acid Calcium Phosphorus Magnesium Total Bilirubin AST Alkaline Phosphatase Total Creatine Kinase C-Reactive Protein Total Protein Albumin TSH Free T4 Urine WBC (Auto) Crossmatch 12/11/18 12/11/18 12/11/18 04:12 05:00 06:19 WBC RBC Hgb Hct MCV MCH RDW Plt Count Lymph % (Auto) White % (Auto) Lymph # Seg Neutrophils % Seg Neuts % (Manual) Lymphocytes % (Manual) Monocytes % (Manual) Nucleated RBC % Seg Neutrophils # Seg Neutrophils # Man Lymphocytes # (Manual) Monocytes # (Manual) PT 19.5 H INR 1.54 H POC ABG pH POC ABG pCO2 24.6 L POC ABG pO2 119 H Sodium Potassium Chloride Carbon Dioxide BUN Creatinine Glucose POC Glucose 174 H Lactic Acid Calcium Phosphorus Magnesium Total Bilirubin AST Alkaline Phosphatase Total Creatine Kinase C-Reactive Protein Total Protein Albumin TSH Free T4 Urine WBC (Auto) Crossmatch 12/11/18 12/11/18 12/11/18 11:10 11:10 18:10 WBC 14.3 H RBC Hgb Hct MCV 73 L MCH 24 L RDW 21.5 H Plt Count Lymph % (Auto) White % (Auto) Lymph # Seg Neutrophils % Seg Neuts % (Manual) Lymphocytes % (Manual) Monocytes % (Manual) Nucleated RBC % Seg Neutrophils # Seg Neutrophils # Man Lymphocytes # (Manual) Monocytes # (Manual) PT INR POC ABG pH POC ABG pCO2 POC ABG pO2 Sodium Potassium Chloride 110.5 H Carbon Dioxide 15 L BUN 101 H Creatinine 2.4 H Glucose 119 H POC Glucose 147 H Lactic Acid Calcium 7.7 L Phosphorus Magnesium Total Bilirubin AST Alkaline Phosphatase Total Creatine Kinase C-Reactive Protein Total Protein Albumin TSH Free T4 Urine WBC (Auto) Crossmatch 12/11/18 12/12/18 12/12/18 23:25 05:37 06:03 WBC RBC Hgb Hct MCV MCH RDW Plt Count Lymph % (Auto) White % (Auto) Lymph # Seg Neutrophils % Seg Neuts % (Manual) Lymphocytes % (Manual) Monocytes % (Manual) Nucleated RBC % Seg Neutrophils # Seg Neutrophils # Man Lymphocytes # (Manual) Monocytes # (Manual) PT INR POC ABG pH 7.346 L POC ABG pCO2 28.3 L POC ABG pO2 120 H Sodium Potassium Chloride Carbon Dioxide BUN Creatinine Glucose POC Glucose 143 H 154 H Lactic Acid Calcium Phosphorus Magnesium Total Bilirubin AST Alkaline Phosphatase Total Creatine Kinase C-Reactive Protein Total Protein Albumin TSH Free T4 Urine WBC (Auto) Crossmatch 12/12/18 12/12/18 12/12/18 08:00 08:00 08:00 WBC 16.2 H RBC Hgb Hct MCV 74 L MCH 25 L RDW 21.9 H Plt Count 21 L Lymph % (Auto) White % (Auto) Lymph # Seg Neutrophils % Seg Neuts % (Manual) Lymphocytes % (Manual) Monocytes % (Manual) Nucleated RBC % Seg Neutrophils # Seg Neutrophils # Man Lymphocytes # (Manual) Monocytes # (Manual) PT 20.2 H INR 1.61 H POC ABG pH POC ABG pCO2 POC ABG pO2 Sodium Potassium Chloride 107.4 H Carbon Dioxide 16 L BUN 101 H Creatinine 2.3 H Glucose 169 H POC Glucose Lactic Acid Calcium 8.2 L Phosphorus Magnesium Total Bilirubin AST Alkaline Phosphatase Total Creatine Kinase C-Reactive Protein Total Protein Albumin TSH Free T4 Urine WBC (Auto) Crossmatch 12/12/18 12/12/18 12/13/18 12:59 18:01 04:28 WBC 18.6 H RBC Hgb Hct MCV 74 L MCH 24 L RDW 21.8 H Plt Count 34 L Lymph % (Auto) White % (Auto) Lymph # Seg Neutrophils % Seg Neuts % (Manual) 97.0 H Lymphocytes % (Manual) 2.0 L Monocytes % (Manual) Nucleated RBC % 1.0 H Seg Neutrophils # Seg Neutrophils # Man 18.0 H Lymphocytes # (Manual) 0.4 L Monocytes # (Manual) PT INR POC ABG pH POC ABG pCO2 POC ABG pO2 Sodium Potassium Chloride Carbon Dioxide BUN Creatinine Glucose POC Glucose 158 H 123 H Lactic Acid Calcium Phosphorus Magnesium Total Bilirubin AST Alkaline Phosphatase Total Creatine Kinase C-Reactive Protein Total Protein Albumin TSH Free T4 Urine WBC (Auto) Crossmatch 12/13/18 12/13/18 12/13/18 04:28 04:45 19:17 WBC RBC Hgb Hct MCV MCH RDW Plt Count Lymph % (Auto) White % (Auto) Lymph # Seg Neutrophils % Seg Neuts % (Manual) Lymphocytes % (Manual) Monocytes % (Manual) Nucleated RBC % Seg Neutrophils # Seg Neutrophils # Man Lymphocytes # (Manual) Monocytes # (Manual) PT INR POC ABG pH 7.327 L POC ABG pCO2 31.1 L POC ABG pO2 136 H Sodium Potassium Chloride 112.0 H Carbon Dioxide 17 L BUN 97 H Creatinine 2.2 H Glucose POC Glucose 106 H Lactic Acid Calcium 8.1 L Phosphorus Magnesium Total Bilirubin AST Alkaline Phosphatase Total Creatine Kinase C-Reactive Protein Total Protein Albumin TSH Free T4 Urine WBC (Auto) Crossmatch 12/13/18 12/14/18 12/14/18 23:24 03:35 03:35 WBC 22.0 H RBC Hgb Hct MCV 75 L MCH 24 L RDW 22.2 H Plt Count 44 L Lymph % (Auto) White % (Auto) Lymph # Seg Neutrophils % Seg Neuts % (Manual) 96.0 H Lymphocytes % (Manual) 3.0 L Monocytes % (Manual) Nucleated RBC % Seg Neutrophils # Seg Neutrophils # Man 21.1 H Lymphocytes # (Manual) 0.7 L Monocytes # (Manual) PT INR POC ABG pH POC ABG pCO2 POC ABG pO2 Sodium 136 L Potassium Chloride 107.2 H Carbon Dioxide 15 L BUN 87 H Creatinine 1.7 H Glucose 156 H POC Glucose 108 H Lactic Acid Calcium 7.7 L Phosphorus Magnesium Total Bilirubin AST Alkaline Phosphatase Total Creatine Kinase C-Reactive Protein Total Protein Albumin TSH Free T4 Urine WBC (Auto) Crossmatch 12/14/18 12/14/18 12/14/18 04:58 05:37 12:10 WBC RBC Hgb Hct MCV MCH RDW Plt Count Lymph % (Auto) White % (Auto) Lymph # Seg Neutrophils % Seg Neuts % (Manual) Lymphocytes % (Manual) Monocytes % (Manual) Nucleated RBC % Seg Neutrophils # Seg Neutrophils # Man Lymphocytes # (Manual) Monocytes # (Manual) PT INR POC ABG pH 7.301 L POC ABG pCO2 32.6 L POC ABG pO2 138 H Sodium Potassium Chloride Carbon Dioxide BUN Creatinine Glucose POC Glucose 178 H 208 H Lactic Acid Calcium Phosphorus Magnesium Total Bilirubin AST Alkaline Phosphatase Total Creatine Kinase C-Reactive Protein Total Protein Albumin TSH Free T4 Urine WBC (Auto) Crossmatch 12/14/18 12/14/18 12/15/18 17:44 23:16 03:37 WBC RBC Hgb Hct MCV MCH RDW Plt Count Lymph % (Auto) White % (Auto) Lymph # Seg Neutrophils % Seg Neuts % (Manual) Lymphocytes % (Manual) Monocytes % (Manual) Nucleated RBC % Seg Neutrophils # Seg Neutrophils # Man Lymphocytes # (Manual) Monocytes # (Manual) PT INR POC ABG pH 7.325 L POC ABG pCO2 28.6 L POC ABG pO2 Sodium Potassium Chloride Carbon Dioxide BUN Creatinine Glucose POC Glucose 172 H 123 H Lactic Acid Calcium Phosphorus Magnesium Total Bilirubin AST Alkaline Phosphatase Total Creatine Kinase C-Reactive Protein Total Protein Albumin TSH Free T4 Urine WBC (Auto) Crossmatch 12/15/18 12/15/18 12/15/18 05:30 05:30 05:43 WBC 20.1 H RBC Hgb 9.5 L Hct 29.2 L MCV 74 L MCH 24 L RDW 22.7 H Plt Count 48 L Lymph % (Auto) White % (Auto) Lymph # Seg Neutrophils % Seg Neuts % (Manual) 96.0 H Lymphocytes % (Manual) 1.0 L Monocytes % (Manual) Nucleated RBC % Seg Neutrophils # Seg Neutrophils # Man 19.3 H Lymphocytes # (Manual) 0.2 L Monocytes # (Manual) PT INR POC ABG pH POC ABG pCO2 POC ABG pO2 Sodium Potassium Chloride 110.8 H Carbon Dioxide 17 L BUN 83 H Creatinine 1.6 H Glucose 150 H POC Glucose 151 H Lactic Acid Calcium 7.7 L Phosphorus Magnesium Total Bilirubin AST Alkaline Phosphatase Total Creatine Kinase C-Reactive Protein Total Protein Albumin TSH Free T4 Urine WBC (Auto) Crossmatch 12/15/18 12/15/18 12/16/18 12:56 18:21 00:10 WBC RBC Hgb Hct MCV MCH RDW Plt Count Lymph % (Auto) White % (Auto) Lymph # Seg Neutrophils % Seg Neuts % (Manual) Lymphocytes % (Manual) Monocytes % (Manual) Nucleated RBC % Seg Neutrophils # Seg Neutrophils # Man Lymphocytes # (Manual) Monocytes # (Manual) PT INR POC ABG pH POC ABG pCO2 POC ABG pO2 Sodium Potassium Chloride Carbon Dioxide BUN Creatinine Glucose POC Glucose 190 H 143 H 174 H Lactic Acid Calcium Phosphorus Magnesium Total Bilirubin AST Alkaline Phosphatase Total Creatine Kinase C-Reactive Protein Total Protein Albumin TSH Free T4 Urine WBC (Auto) Crossmatch 12/16/18 12/16/18 12/16/18 05:24 05:30 05:30 WBC 17.1 H RBC Hgb 9.1 L Hct 28.8 L MCV 76 L MCH 24 L RDW 23.5 H Plt Count 37 L Lymph % (Auto) White % (Auto) Lymph # Seg Neutrophils % Seg Neuts % (Manual) Lymphocytes % (Manual) 9.0 L Monocytes % (Manual) 9.0 H Nucleated RBC % Seg Neutrophils # Seg Neutrophils # Man 9.6 H Lymphocytes # (Manual) Monocytes # (Manual) 1.5 H PT INR POC ABG pH POC ABG pCO2 POC ABG pO2 Sodium Potassium Chloride 110.8 H Carbon Dioxide 15 L BUN 81 H Creatinine 1.6 H Glucose 161 H POC Glucose 154 H Lactic Acid Calcium 7.6 L Phosphorus Magnesium Total Bilirubin AST Alkaline Phosphatase Total Creatine Kinase C-Reactive Protein Total Protein Albumin TSH Free T4 Urine WBC (Auto) Crossmatch 12/16/18 12/16/18 12/16/18 12:31 17:42 21:56 WBC RBC Hgb Hct MCV MCH RDW Plt Count Lymph % (Auto) White % (Auto) Lymph # Seg Neutrophils % Seg Neuts % (Manual) Lymphocytes % (Manual) Monocytes % (Manual) Nucleated RBC % Seg Neutrophils # Seg Neutrophils # Man Lymphocytes # (Manual) Monocytes # (Manual) PT INR POC ABG pH POC ABG pCO2 POC ABG pO2 Sodium Potassium Chloride Carbon Dioxide BUN Creatinine Glucose POC Glucose 172 H 173 H 118 H Lactic Acid Calcium Phosphorus Magnesium Total Bilirubin AST Alkaline Phosphatase Total Creatine Kinase C-Reactive Protein Total Protein Albumin TSH Free T4 Urine WBC (Auto) Crossmatch 12/16/18 12/17/18 12/17/18 23:38 04:24 04:24 WBC 19.2 H RBC Hgb 9.5 L Hct 29.7 L MCV 76 L MCH 24 L RDW 24.4 H Plt Count 26 L Lymph % (Auto) White % (Auto) Lymph # Seg Neutrophils % Seg Neuts % (Manual) Lymphocytes % (Manual) 6.0 L Monocytes % (Manual) Nucleated RBC % Seg Neutrophils # Seg Neutrophils # Man 13.1 H Lymphocytes # (Manual) Monocytes # (Manual) PT INR POC ABG pH POC ABG pCO2 POC ABG pO2 Sodium 134 L Potassium Chloride 110.0 H Carbon Dioxide 14 L BUN 83 H Creatinine 1.6 H Glucose POC Glucose 109 H Lactic Acid Calcium 7.8 L Phosphorus Magnesium Total Bilirubin AST Alkaline Phosphatase Total Creatine Kinase C-Reactive Protein Total Protein Albumin TSH Free T4 Urine WBC (Auto) Crossmatch 12/17/18 12/17/18 12/18/18 06:42 17:49 00:40 WBC RBC Hgb Hct MCV MCH RDW Plt Count Lymph % (Auto) White % (Auto) Lymph # Seg Neutrophils % Seg Neuts % (Manual) Lymphocytes % (Manual) Monocytes % (Manual) Nucleated RBC % Seg Neutrophils # Seg Neutrophils # Man Lymphocytes # (Manual) Monocytes # (Manual) PT INR POC ABG pH POC ABG pCO2 POC ABG pO2 Sodium Potassium Chloride 113.1 H Carbon Dioxide 13 L BUN 82 H Creatinine 1.6 H Glucose POC Glucose 66 L 109 H Lactic Acid Calcium 8.0 L Phosphorus Magnesium Total Bilirubin AST Alkaline Phosphatase Total Creatine Kinase C-Reactive Protein Total Protein Albumin TSH Free T4 Urine WBC (Auto) Crossmatch 12/18/18 12/18/18 12/18/18 04:08 04:08 12:45 WBC 26.5 H RBC 3.63 L Hgb 8.7 L Hct 26.8 L MCV 74 L MCH 24 L RDW 23.3 H Plt Count 24 L Lymph % (Auto) White % (Auto) Lymph # Seg Neutrophils % Seg Neuts % (Manual) Lymphocytes % (Manual) Monocytes % (Manual) Nucleated RBC % Seg Neutrophils # Seg Neutrophils # Man Lymphocytes # (Manual) Monocytes # (Manual) PT INR POC ABG pH POC ABG pCO2 POC ABG pO2 Sodium Potassium Chloride 114.3 H Carbon Dioxide 16 L BUN 82 H Creatinine 1.7 H Glucose POC Glucose 117 H Lactic Acid Calcium 7.8 L Phosphorus 5.10 H Magnesium Total Bilirubin AST Alkaline Phosphatase Total Creatine Kinase C-Reactive Protein Total Protein Albumin TSH Free T4 Urine WBC (Auto) Crossmatch 12/18/18 12/18/18 12/19/18 17:42 23:39 04:22 WBC 20.4 H RBC 3.01 L Hgb 7.2 L Hct 22.6 L MCV 75 L MCH 24 L RDW 24.5 H Plt Count 52 L D Lymph % (Auto) White % (Auto) Lymph # Seg Neutrophils % Seg Neuts % (Manual) Lymphocytes % (Manual) Monocytes % (Manual) Nucleated RBC % Seg Neutrophils # Seg Neutrophils # Man Lymphocytes # (Manual) Monocytes # (Manual) PT INR POC ABG pH POC ABG pCO2 POC ABG pO2 Sodium Potassium Chloride Carbon Dioxide BUN Creatinine Glucose POC Glucose 121 H 184 H Lactic Acid Calcium Phosphorus Magnesium Total Bilirubin AST Alkaline Phosphatase Total Creatine Kinase C-Reactive Protein Total Protein Albumin TSH Free T4 Urine WBC (Auto) Crossmatch 12/19/18 12/19/18 12/19/18 04:22 12:43 18:12 WBC RBC Hgb Hct MCV MCH RDW Plt Count Lymph % (Auto) White % (Auto) Lymph # Seg Neutrophils % Seg Neuts % (Manual) Lymphocytes % (Manual) Monocytes % (Manual) Nucleated RBC % Seg Neutrophils # Seg Neutrophils # Man Lymphocytes # (Manual) Monocytes # (Manual) PT INR POC ABG pH POC ABG pCO2 POC ABG pO2 Sodium Potassium Chloride 112.9 H Carbon Dioxide 15 L BUN 76 H Creatinine 1.8 H Glucose 107 H POC Glucose 141 H 227 H Lactic Acid Calcium 7.4 L Phosphorus Magnesium Total Bilirubin AST Alkaline Phosphatase Total Creatine Kinase C-Reactive Protein Total Protein Albumin TSH Free T4 Urine WBC (Auto) Crossmatch 12/19/18 12/19/18 12/20/18 23:55 Unknown 03:07 WBC 15.7 H RBC 2.92 L Hgb 7.2 L 7.1 L Hct 22.2 L 21.6 L MCV 74 L MCH 24 L RDW 24.3 H Plt Count 23 L Lymph % (Auto) White % (Auto) Lymph # Seg Neutrophils % Seg Neuts % (Manual) Lymphocytes % (Manual) Monocytes % (Manual) Nucleated RBC % Seg Neutrophils # Seg Neutrophils # Man Lymphocytes # (Manual) Monocytes # (Manual) PT INR POC ABG pH POC ABG pCO2 POC ABG pO2 Sodium Potassium Chloride Carbon Dioxide BUN Creatinine Glucose POC Glucose 174 H Lactic Acid Calcium Phosphorus Magnesium Total Bilirubin AST Alkaline Phosphatase Total Creatine Kinase C-Reactive Protein Total Protein Albumin TSH Free T4 Urine WBC (Auto) Crossmatch 12/20/18 12/20/18 12/20/18 03:07 05:20 11:00 WBC RBC Hgb Hct MCV MCH RDW Plt Count Lymph % (Auto) White % (Auto) Lymph # Seg Neutrophils % Seg Neuts % (Manual) Lymphocytes % (Manual) Monocytes % (Manual) Nucleated RBC % Seg Neutrophils # Seg Neutrophils # Man Lymphocytes # (Manual) Monocytes # (Manual) PT INR POC ABG pH POC ABG pCO2 POC ABG pO2 Sodium 136 L Potassium Chloride Carbon Dioxide 20 L BUN 79 H Creatinine 2.1 H Glucose 141 H POC Glucose 210 H Lactic Acid Calcium 7.5 L Phosphorus Magnesium Total Bilirubin AST Alkaline Phosphatase Total Creatine Kinase C-Reactive Protein Total Protein Albumin TSH Free T4 Urine WBC (Auto) Crossmatch See Detail 12/20/18 12/20/18 12/21/18 11:40 17:51 00:33 WBC RBC Hgb Hct MCV MCH RDW Plt Count Lymph % (Auto) White % (Auto) Lymph # Seg Neutrophils % Seg Neuts % (Manual) Lymphocytes % (Manual) Monocytes % (Manual) Nucleated RBC % Seg Neutrophils # Seg Neutrophils # Man Lymphocytes # (Manual) Monocytes # (Manual) PT INR POC ABG pH POC ABG pCO2 POC ABG pO2 Sodium Potassium Chloride Carbon Dioxide BUN Creatinine Glucose POC Glucose 183 H 150 H 119 H Lactic Acid Calcium Phosphorus Magnesium Total Bilirubin AST Alkaline Phosphatase Total Creatine Kinase C-Reactive Protein Total Protein Albumin TSH Free T4 Urine WBC (Auto) Crossmatch 12/21/18 12/21/18 12/21/18 05:05 07:19 07:19 WBC 11.9 H RBC 2.83 L Hgb 6.9 L Hct 20.7 L MCV 73 L MCH 24 L RDW 23.9 H Plt Count 11 L* Lymph % (Auto) White % (Auto) Lymph # Seg Neutrophils % Seg Neuts % (Manual) Lymphocytes % (Manual) Monocytes % (Manual) Nucleated RBC % Seg Neutrophils # Seg Neutrophils # Man Lymphocytes # (Manual) Monocytes # (Manual) PT INR POC ABG pH POC ABG pCO2 POC ABG pO2 Sodium 135 L Potassium Chloride Carbon Dioxide 21 L BUN 78 H Creatinine 2.3 H Glucose 143 H POC Glucose 165 H Lactic Acid Calcium 7.3 L Phosphorus Magnesium Total Bilirubin AST Alkaline Phosphatase Total Creatine Kinase C-Reactive Protein Total Protein Albumin TSH Free T4 Urine WBC (Auto) Crossmatch 12/21/18 12/21/18 12/21/18 11:55 17:39 18:00 WBC RBC Hgb 7.9 L Hct 23.8 L MCV MCH RDW Plt Count Lymph % (Auto) White % (Auto) Lymph # Seg Neutrophils % Seg Neuts % (Manual) Lymphocytes % (Manual) Monocytes % (Manual) Nucleated RBC % Seg Neutrophils # Seg Neutrophils # Man Lymphocytes # (Manual) Monocytes # (Manual) PT INR POC ABG pH POC ABG pCO2 POC ABG pO2 Sodium Potassium Chloride Carbon Dioxide BUN Creatinine Glucose POC Glucose 125 H 108 H Lactic Acid Calcium Phosphorus Magnesium Total Bilirubin AST Alkaline Phosphatase Total Creatine Kinase C-Reactive Protein Total Protein Albumin TSH Free T4 Urine WBC (Auto) Crossmatch 12/21/18 12/22/18 12/22/18 23:55 05:35 05:35 WBC 11.8 H RBC Hgb 9.4 L Hct 28.3 L MCV 76 L MCH 25 L RDW 24.5 H Plt Count 26 L D Lymph % (Auto) White % (Auto) Lymph # Seg Neutrophils % Seg Neuts % (Manual) Lymphocytes % (Manual) Monocytes % (Manual) Nucleated RBC % Seg Neutrophils # Seg Neutrophils # Man Lymphocytes # (Manual) Monocytes # (Manual) PT INR POC ABG pH POC ABG pCO2 POC ABG pO2 Sodium 132 L Potassium Chloride Carbon Dioxide 21 L BUN 79 H Creatinine 2.3 H Glucose 131 H POC Glucose 126 H Lactic Acid Calcium 7.4 L Phosphorus Magnesium Total Bilirubin AST Alkaline Phosphatase Total Creatine Kinase C-Reactive Protein Total Protein Albumin TSH Free T4 Urine WBC (Auto) Crossmatch 12/22/18 12/22/18 12/22/18 06:34 11:39 17:29 WBC RBC Hgb Hct MCV MCH RDW Plt Count Lymph % (Auto) White % (Auto) Lymph # Seg Neutrophils % Seg Neuts % (Manual) Lymphocytes % (Manual) Monocytes % (Manual) Nucleated RBC % Seg Neutrophils # Seg Neutrophils # Man Lymphocytes # (Manual) Monocytes # (Manual) PT INR POC ABG pH POC ABG pCO2 POC ABG pO2 Sodium Potassium Chloride Carbon Dioxide BUN Creatinine Glucose POC Glucose 126 H 176 H 180 H Lactic Acid Calcium Phosphorus Magnesium Total Bilirubin AST Alkaline Phosphatase Total Creatine Kinase C-Reactive Protein Total Protein Albumin TSH Free T4 Urine WBC (Auto) Crossmatch 12/22/18 12/23/18 12/23/18 23:19 05:56 08:50 WBC RBC Hgb Hct MCV MCH RDW Plt Count Lymph % (Auto) White % (Auto) Lymph # Seg Neutrophils % Seg Neuts % (Manual) Lymphocytes % (Manual) Monocytes % (Manual) Nucleated RBC % Seg Neutrophils # Seg Neutrophils # Man Lymphocytes # (Manual) Monocytes # (Manual) PT INR POC ABG pH POC ABG pCO2 POC ABG pO2 Sodium 134 L Potassium Chloride Carbon Dioxide BUN 80 H Creatinine 2.4 H Glucose 133 H POC Glucose 135 H 174 H Lactic Acid Calcium 7.0 L Phosphorus Magnesium Total Bilirubin AST Alkaline Phosphatase Total Creatine Kinase C-Reactive Protein Total Protein Albumin TSH Free T4 Urine WBC (Auto) Crossmatch 12/23/18 12/23/18 12/24/18 08:50 11:18 00:18 WBC RBC 3.29 L Hgb 8.5 L Hct 24.9 L MCV 76 L MCH 26 L RDW 24.9 H Plt Count 7 L* Lymph % (Auto) White % (Auto) Lymph # Seg Neutrophils % Seg Neuts % (Manual) Lymphocytes % (Manual) Monocytes % (Manual) Nucleated RBC % Seg Neutrophils # Seg Neutrophils # Man Lymphocytes # (Manual) Monocytes # (Manual) PT INR POC ABG pH POC ABG pCO2 POC ABG pO2 Sodium Potassium Chloride Carbon Dioxide BUN Creatinine Glucose POC Glucose 164 H 64 L Lactic Acid Calcium Phosphorus Magnesium Total Bilirubin AST Alkaline Phosphatase Total Creatine Kinase C-Reactive Protein Total Protein Albumin TSH Free T4 Urine WBC (Auto) Crossmatch 12/24/18 12/24/18 12/24/18 00:56 06:00 06:00 WBC RBC Hgb 9.7 L Hct 29.1 L MCV 76 L MCH 25 L RDW 24.9 H Plt Count 30 L D Lymph % (Auto) White % (Auto) Lymph # Seg Neutrophils % Seg Neuts % (Manual) 86.0 H Lymphocytes % (Manual) 0 L Monocytes % (Manual) Nucleated RBC % Seg Neutrophils # Seg Neutrophils # Man 9.1 H Lymphocytes # (Manual) 0.0 L Monocytes # (Manual) PT INR POC ABG pH POC ABG pCO2 POC ABG pO2 Sodium 132 L Potassium Chloride Carbon Dioxide BUN 79 H Creatinine 2.4 H Glucose 117 H POC Glucose 162 H Lactic Acid Calcium 7.5 L Phosphorus Magnesium Total Bilirubin AST 48 H Alkaline Phosphatase 252 H Total Creatine Kinase C-Reactive Protein Total Protein 5.5 L Albumin 1.6 L TSH Free T4 Urine WBC (Auto) Crossmatch 12/24/18 12/24/18 12/24/18 06:00 12:03 18:45 WBC RBC Hgb Hct MCV MCH RDW Plt Count Lymph % (Auto) White % (Auto) Lymph # Seg Neutrophils % Seg Neuts % (Manual) Lymphocytes % (Manual) Monocytes % (Manual) Nucleated RBC % Seg Neutrophils # Seg Neutrophils # Man Lymphocytes # (Manual) Monocytes # (Manual) PT INR POC ABG pH POC ABG pCO2 POC ABG pO2 Sodium Potassium Chloride Carbon Dioxide BUN Creatinine Glucose POC Glucose 153 H 133 H Lactic Acid Calcium Phosphorus 6.60 H Magnesium 2.40 H Total Bilirubin AST Alkaline Phosphatase Total Creatine Kinase C-Reactive Protein Total Protein Albumin TSH Free T4 Urine WBC (Auto) Crossmatch 12/24/18 12/25/18 12/25/18 23:08 06:36 12:05 WBC RBC Hgb Hct MCV MCH RDW Plt Count Lymph % (Auto) White % (Auto) Lymph # Seg Neutrophils % Seg Neuts % (Manual) Lymphocytes % (Manual) Monocytes % (Manual) Nucleated RBC % Seg Neutrophils # Seg Neutrophils # Man Lymphocytes # (Manual) Monocytes # (Manual) PT INR POC ABG pH POC ABG pCO2 POC ABG pO2 Sodium Potassium Chloride Carbon Dioxide BUN Creatinine Glucose POC Glucose 125 H 176 H 161 H Lactic Acid Calcium Phosphorus Magnesium Total Bilirubin AST Alkaline Phosphatase Total Creatine Kinase C-Reactive Protein Total Protein Albumin TSH Free T4 Urine WBC (Auto) Crossmatch 12/25/18 12/26/18 12/26/18 18:33 00:07 05:09 WBC RBC Hgb Hct MCV MCH RDW Plt Count Lymph % (Auto) White % (Auto) Lymph # Seg Neutrophils % Seg Neuts % (Manual) Lymphocytes % (Manual) Monocytes % (Manual) Nucleated RBC % Seg Neutrophils # Seg Neutrophils # Man Lymphocytes # (Manual) Monocytes # (Manual) PT INR POC ABG pH POC ABG pCO2 POC ABG pO2 Sodium Potassium Chloride Carbon Dioxide BUN Creatinine Glucose POC Glucose 237 H 178 H 171 H Lactic Acid Calcium Phosphorus Magnesium Total Bilirubin AST Alkaline Phosphatase Total Creatine Kinase C-Reactive Protein Total Protein Albumin TSH Free T4 Urine WBC (Auto) Crossmatch 12/26/18 12/26/18 12/26/18 11:27 17:52 23:39 WBC RBC Hgb Hct MCV MCH RDW Plt Count Lymph % (Auto) White % (Auto) Lymph # Seg Neutrophils % Seg Neuts % (Manual) Lymphocytes % (Manual) Monocytes % (Manual) Nucleated RBC % Seg Neutrophils # Seg Neutrophils # Man Lymphocytes # (Manual) Monocytes # (Manual) PT INR POC ABG pH POC ABG pCO2 POC ABG pO2 Sodium Potassium Chloride Carbon Dioxide BUN Creatinine Glucose POC Glucose 205 H 166 H 122 H Lactic Acid Calcium Phosphorus Magnesium Total Bilirubin AST Alkaline Phosphatase Total Creatine Kinase C-Reactive Protein Total Protein Albumin TSH Free T4 Urine WBC (Auto) Crossmatch 12/27/18 12/27/18 12/27/18 06:21 14:29 16:20 WBC RBC 3.01 L Hgb 7.6 L Hct 23.0 L MCV 76 L MCH 25 L RDW 24.4 H Plt Count 28 L Lymph % (Auto) 8.9 L White % (Auto) 7.4 H Lymph # 0.6 L Seg Neutrophils % 83.4 H Seg Neuts % (Manual) Lymphocytes % (Manual) Monocytes % (Manual) Nucleated RBC % Seg Neutrophils # Seg Neutrophils # Man Lymphocytes # (Manual) Monocytes # (Manual) PT INR POC ABG pH POC ABG pCO2 POC ABG pO2 Sodium Potassium Chloride Carbon Dioxide BUN Creatinine Glucose POC Glucose 174 H 197 H Lactic Acid Calcium Phosphorus Magnesium Total Bilirubin AST Alkaline Phosphatase Total Creatine Kinase C-Reactive Protein Total Protein Albumin TSH Free T4 Urine WBC (Auto) Crossmatch 12/27/18 12/27/18 12/27/18 16:20 17:42 20:16 WBC RBC Hgb Hct MCV MCH RDW Plt Count Lymph % (Auto) White % (Auto) Lymph # Seg Neutrophils % Seg Neuts % (Manual) Lymphocytes % (Manual) Monocytes % (Manual) Nucleated RBC % Seg Neutrophils # Seg Neutrophils # Man Lymphocytes # (Manual) Monocytes # (Manual) PT INR POC ABG pH POC ABG pCO2 POC ABG pO2 Sodium Potassium Chloride Carbon Dioxide 21 L BUN 106 H Creatinine 3.0 H Glucose 184 H POC Glucose 211 H Lactic Acid Calcium 6.8 L Phosphorus Magnesium Total Bilirubin AST Alkaline Phosphatase Total Creatine Kinase C-Reactive Protein Total Protein Albumin TSH Free T4 Urine WBC (Auto) Crossmatch See Detail 12/28/18 12/28/18 12/28/18 00:39 01:03 06:42 WBC RBC Hgb 8.2 L Hct 24.6 L MCV MCH RDW Plt Count Lymph % (Auto) White % (Auto) Lymph # Seg Neutrophils % Seg Neuts % (Manual) Lymphocytes % (Manual) Monocytes % (Manual) Nucleated RBC % Seg Neutrophils # Seg Neutrophils # Man Lymphocytes # (Manual) Monocytes # (Manual) PT INR POC ABG pH POC ABG pCO2 POC ABG pO2 Sodium Potassium Chloride Carbon Dioxide BUN Creatinine Glucose POC Glucose 135 H 160 H Lactic Acid Calcium Phosphorus Magnesium Total Bilirubin AST Alkaline Phosphatase Total Creatine Kinase C-Reactive Protein Total Protein Albumin TSH Free T4 Urine WBC (Auto) Crossmatch 12/28/18 12/28/18 12/28/18 07:30 07:30 11:33 WBC RBC 3.43 L Hgb 9.3 L Hct 27.5 L MCV MCH 27 L RDW 24.0 H Plt Count 34 L Lymph % (Auto) White % (Auto) Lymph # Seg Neutrophils % 86.0 H Seg Neuts % (Manual) 88.0 H Lymphocytes % (Manual) 6.0 L Monocytes % (Manual) Nucleated RBC % Seg Neutrophils # Seg Neutrophils # Man Lymphocytes # (Manual) 0.4 L Monocytes # (Manual) PT INR POC ABG pH POC ABG pCO2 POC ABG pO2 Sodium Potassium Chloride Carbon Dioxide 20 L BUN 101 H Creatinine 2.8 H Glucose 155 H POC Glucose 171 H Lactic Acid Calcium 6.5 L Phosphorus 7.40 H Magnesium Total Bilirubin AST Alkaline Phosphatase Total Creatine Kinase C-Reactive Protein Total Protein Albumin TSH Free T4 Urine WBC (Auto) Crossmatch 12/28/18 12/28/18 12/29/18 17:16 23:53 05:45 WBC RBC Hgb Hct 29.7 L MCV MCH 27 L RDW 23.8 H Plt Count 32 L Lymph % (Auto) White % (Auto) Lymph # Seg Neutrophils % Seg Neuts % (Manual) 94.0 H Lymphocytes % (Manual) 4.0 L Monocytes % (Manual) Nucleated RBC % 1.0 H Seg Neutrophils # Seg Neutrophils # Man Lymphocytes # (Manual) 0.2 L Monocytes # (Manual) PT INR POC ABG pH POC ABG pCO2 POC ABG pO2 Sodium Potassium Chloride Carbon Dioxide BUN Creatinine Glucose POC Glucose 151 H 108 H Lactic Acid Calcium Phosphorus Magnesium Total Bilirubin AST Alkaline Phosphatase Total Creatine Kinase C-Reactive Protein Total Protein Albumin TSH Free T4 Urine WBC (Auto) Crossmatch 12/29/18 12/29/18 12/29/18 05:45 12:40 18:04 WBC RBC Hgb Hct MCV MCH RDW Plt Count Lymph % (Auto) White % (Auto) Lymph # Seg Neutrophils % Seg Neuts % (Manual) Lymphocytes % (Manual) Monocytes % (Manual) Nucleated RBC % Seg Neutrophils # Seg Neutrophils # Man Lymphocytes # (Manual) Monocytes # (Manual) PT INR POC ABG pH POC ABG pCO2 POC ABG pO2 Sodium Potassium Chloride Carbon Dioxide 20 L BUN 103 H Creatinine 2.7 H Glucose POC Glucose 108 H 147 H Lactic Acid Calcium 6.6 L Phosphorus 7.20 H Magnesium Total Bilirubin AST 49 H Alkaline Phosphatase 309 H Total Creatine Kinase C-Reactive Protein Total Protein 4.6 L Albumin 1.6 L TSH Free T4 Urine WBC (Auto) Crossmatch 12/29/18 12/30/18 23:47 05:44 WBC RBC Hgb Hct MCV MCH RDW Plt Count Lymph % (Auto) White % (Auto) Lymph # Seg Neutrophils % Seg Neuts % (Manual) Lymphocytes % (Manual) Monocytes % (Manual) Nucleated RBC % Seg Neutrophils # Seg Neutrophils # Man Lymphocytes # (Manual) Monocytes # (Manual) PT INR POC ABG pH POC ABG pCO2 POC ABG pO2 Sodium Potassium Chloride Carbon Dioxide BUN Creatinine Glucose POC Glucose 119 H 129 H Lactic Acid Calcium Phosphorus Magnesium Total Bilirubin AST Alkaline Phosphatase Total Creatine Kinase C-Reactive Protein Total Protein Albumin TSH Free T4 Urine WBC (Auto) Crossmatch Allied health notes reviewed: nursing
--- NOTE | 2018-12-30 10:15 | Progress Note ---
Assessment and Plan - Patient Problems (1) Acute kidney failure with tubular necrosis Current Visit: Yes Status: Acute Plan to address problem: Labs noted and her renal function is stable. Overall prognosis is poor, poor candidate for renal replacement therapy. Avoid nephrotoxins. (2) Acute post-hemorrhagic anemia Current Visit: Yes Status: Acute Plan to address problem: H/H is stable at this time. Continue to monitor, transfuse prn to maintain HgB> 7.0 (3) Respiratory failure Current Visit: Yes Status: Acute Plan to address problem: Continues on ventilatory support, and further management per ICU/Pulmonary team. (4) Pericardial effusion without cardiac tamponade Current Visit: Yes Status: Acute Plan to address problem: s/p ECHO with findings not consistent with cardiac tamponade. Will continue to monitor, further recs per cardiology. (5) Encephalopathy Current Visit: Yes Status: Acute Plan to address problem: s/p EEG . Results reviewed. Further management per primary team. Patient remains comatose at this time Subjective Date of service: 12/30/18 Principal diagnosis: Rectal Bleed Interval history: Pt remains intubated, unresponsive. family decided to go for trach/PEG Objective - Vital Signs Vital signs: Vital Signs - 12hr 12/29/18 12/29/18 12/29/18 22:29 23:00 23:14 Temperature Pulse Rate 64 63 64 Pulse Rate [ From Monitor] Pulse Rate [ Throughout] Respiratory 18 Rate Respiratory Rate [ Throughout] Blood Pressure 129/32 123/29 129/32 O2 Sat by Pulse 99 100 Oximetry 12/29/18 12/30/18 12/30/18 23:33 00:00 01:00 Temperature 98.9 F Pulse Rate 63 61 65 Pulse Rate [ 61 From Monitor] Pulse Rate [ Throughout] Respiratory 18 18 18 Rate Respiratory Rate [ Throughout] Blood Pressure 135/32 119/29 116/38 O2 Sat by Pulse 100 99 100 Oximetry 12/30/18 12/30/18 12/30/18 02:00 03:00 04:00 Temperature 98.8 F Pulse Rate 62 61 61 Pulse Rate [ 62 63 From Monitor] Pulse Rate [ 67 Throughout] Respiratory 18 15 18 Rate Respiratory 18 Rate [ Throughout] Blood Pressure 115/29 118/32 103/43 O2 Sat by Pulse 100 99 100 Oximetry 12/30/18 12/30/18 12/30/18 05:00 06:00 07:00 Temperature Pulse Rate 61 60 60 Pulse Rate [ From Monitor] Pulse Rate [ Throughout] Respiratory 18 18 15 Rate Respiratory Rate [ Throughout] Blood Pressure 103/43 112/34 116/38 O2 Sat by Pulse 100 100 100 Oximetry 12/30/18 12/30/18 12/30/18 07:14 07:18 08:00 Temperature 97.5 F L Pulse Rate 60 60 Pulse Rate [ From Monitor] Pulse Rate [ 60 Throughout] Respiratory 18 Rate Respiratory 18 Rate [ Throughout] Blood Pressure 141/43 124/32 O2 Sat by Pulse 100 100 Oximetry 12/30/18 12/30/18 12/30/18 08:45 09:00 09:53 Temperature Pulse Rate 63 60 63 Pulse Rate [ From Monitor] Pulse Rate [ Throughout] Respiratory 18 Rate Respiratory Rate [ Throughout] Blood Pressure 122/44 113/32 122/44 O2 Sat by Pulse 100 Oximetry 12/30/18 09:54 Temperature Pulse Rate 63 Pulse Rate [ From Monitor] Pulse Rate [ Throughout] Respiratory Rate Respiratory Rate [ Throughout] Blood Pressure 122/44 O2 Sat by Pulse Oximetry - General Appearance General appearance: intubated, comatose Neck: no JVD Respiratory: Present: Clear to Ascultation Cardiology: regular, S1S2 Gastrointestinal: normoactive bowel sounds Integumentary: no rash, other (++ edema b/l LE ) Neurologic: obtunded - Lab 12/29/18 05:45 12/29/18 05:45 Most recent lab results Calcium 6.6 mg/dL (8.4-10.2) L 12/29/18 05:45 Phosphorus 7.20 mg/dL (2.5-4.5) H 12/29/18 05:45 Magnesium 2.30 mg/dL (1.7-2.3) 12/29/18 05:45 Medications & Allergies - Medications Allergies/Adverse Reactions: Allergies Penicillins Allergy (Verified 12/08/18 13:13) Hives Home Medications: Home Medications Medication Instructions Recorded Confirmed Last Taken Type ALBUTEROL Inhaler (OR & NICU) 2 puff IH QID PRN #1 inhalation 12/21/16 12/08/18 Unknown Rx [Proair] Albuterol Sulfate [Albuterol 0.63% 0.63 mg IH TID PRN #90 ml 12/21/16 12/08/18 Unknown Rx NEBS] Amlodipine Besylate [Norvasc] 10 mg PO DAILY #90 tablet 12/21/16 12/08/18 Unknown Rx AtorvaSTATin [Lipitor] 20 mg PO QHS #90 tablet 12/21/16 12/08/18 Unknown Rx Hydralazine HCl [Apresoline TAB] 50 mg PO TID #90 tablet 12/21/16 12/08/18 Unknown Rx Metoprolol [Lopressor TAB] 25 mg PO BID #90 tablet 12/21/16 12/08/18 Unknown Rx Promethazine /Codeine 5 ml PO Q6H PRN #100 ml 12/21/16 12/08/18 Unknown Rx [Phenergan/Codeine 6.25-10 mg/5 ml] Active Medications: Generic Name Dose Route Start Last Admin Trade Name Freq PRN Reason Stop Dose Admin Acetaminophen 650 mg 12/09/18 01:00 12/28/18 00:24 Tylenol VT 650 mg Q4H PRN Administration Pain MILD(1-3)/Fever >100.5/TURNER Albuterol 2.5 mg 12/09/18 00:31 Proventil IH Q4HRT PRN Shortness Of Breath Albuterol/Ipratropium 1 ampul 12/09/18 02:00 12/30/18 07:18 Duoneb *Not For Prn Use* IH 1 ampul Q6HRT KOLE Administration Amlodipine Besylate 10 mg 12/28/18 10:00 12/30/18 09:54 Norvasc PO 10 mg DAILY KOLE Administration Lipase/Protease/Amylase 1 each 12/09/18 04:05 Shakir Pena 10,500 Unit FEEDTUBE PRN PRN For Clogged Feeding Tube Atorvastatin Calcium 20 mg 12/28/18 22:00 12/29/18 22:26 Lipitor PO 20 mg QHS KOLE Administration Dextrose 50 ml 12/24/18 00:42 12/24/18 00:30 D50w (25gm) Syringe IV 50 ml PRN PRN Administration Hypoglycemia Hydralazine HCl 50 mg 12/28/18 08:00 12/30/18 09:53 Apresoline PO 50 mg TID KOLE Administration Hydrophilic Ointment 1 applic 12/14/18 13:00 Vaseline Lip Therapy TP DIRECT PRN Dry tongue Norepinephrine 4 mg in 250 mls @ 7.5 mls/hr 12/18/18 18:00 12/19/18 18:00 Levophed Drip 4 Mg/Ns 250 Ml IV 0 mcg/min TITR KOLE 0 mls/hr Titration Protocol 2 MCG/MIN Sodium Chloride 1,000 mls @ 50 mls/hr 12/23/18 13:00 12/29/18 20:14 Nacl 0.9% 1000 Ml IV 50 mls/hr DIRECT KOLE Administration Insulin Human Lispro 0 unit 12/11/18 12:00 12/30/18 06:34 Humalog SUB-Q Not Given Q6HR [facility] Protocol Lansoprazole 30 mg 12/12/18 10:00 12/30/18 09:52 Prevacid Solutab FEEDTUBE 30 mg BID KOLE Administration Metoprolol Tartrate 25 mg 12/27/18 23:45 12/30/18 08:45 Lopressor PO 25 mg BID@0800,1700 KOLE Administration Multi-Ingred Cream/Lotion/Oil/Oint 1 applic 12/08/18 13:31 Artificial Tears Ophth Oint OU Q4HR PRN Dry Eye(s) Ondansetron HCl 4 mg 12/09/18 00:31 Zofran IV Q8H PRN Nausea And Vomiting Promethazine HCl/Codeine 5 ml 12/27/18 23:49 Phenergan/Codeine 6.25-10 Mg/5ml PO Q6H PRN cough Simple Syrup 15 ml 12/09/18 04:05 Simple Syrup FEEDTUBE PRN PRN Hypoglycemia Simple Syrup 30 ml 12/09/18 04:05 Simple Syrup FEEDTUBE PRN PRN Hypoglycemia Sodium Bicarbonate 325 mg 12/09/18 04:05 Sodium Bicarbonate FEEDTUBE PRN PRN For Clogged Feeding Tube Sodium Chloride 10 ml 12/09/18 10:00 12/29/18 23:20 Sodium Chloride Flush Syringe 10 Ml IV 10 ml BID KOLE Administration Sodium Chloride 10 ml 12/09/18 00:31 12/17/18 10:47 Sodium Chloride Flush Syringe 10 Ml IV 10 ml PRN PRN Administration LINE FLUSH
--- NOTE | 2018-12-30 10:34 | Progress Note ---
Assessment and Plan Assessment and plan: --Acute respiratory failure; vent dependent Patient may need trach and PEG, surgery following Grand daughter and family decided to proceed with with trach and PEG Neurology reevaluation to assess functional/neuro status who evaluated the patient in the past is not available Will check with covering neurologist Dr. Vega. --Acute encephalopathy: Multifactorial, CT head extensive right MCA encephalomalcia, right mastoid opacities. neurology evaluated. MRI cant be done as patient has joe andres. --Severe Sepsis due to UTI , right mastoiditis, aspiration PNA Blood cultures negative, right ear Cx negative Completed antibiotics per ID --Septic Shock, hypotension, BP improved,off levophed --Left lower lobe infiltrate, poss pneumonia Received antibiotics --Large Pericardial effusion without tamponade TTE EF>50,Cardiology evaluated, medical management Poor candidate for any procedure --MARYANN on CKD 3 Nephrology following-avoid nephrotoxins no indication for HD now --Acute on chronic anemia has h/o anemia requiring previous blood transfusions could be multifactorial (GI bleed and CKD), Total 4 Units PRBC transfused --Lower GI Bleeding: Hemoglobin today is 8.2 -9.3-10.1-8.3 Monitor H/H, transfuse as needed, followed GI evaluation h/o Coffee ground emesis: Resolved,No plans of endoscopy --Thrombocytopenia Transfused total 5 Units platelets Plt 34-32-30 today, will transfuse as needed --Hypothermia,resolved --Diabetes mellitus type 2, SSI as needed Full code status. Very Poor prognosis, recommend hospice, palliative care The high probability of a clinically significant, sudden or life threatening deterioration of the [respiratory, cardiology, GI, renal, hematology] system(s) required my full and direct attention, intervention and personal management. The aggregate critical care time was [31] minutes. This time is in addition to time spent performing reported procedures but includes the following: [x] Data Review and interpretation [x] Patient assessment and monitoring of vital signs [x] Documentation [x] Medication orders and management History Interval history: Patient seen and examined this morning medical records reviewed Patient remains intubated, vent dependent Family considering trach and PEG Surgeon evaluated the patient,Awaiting neuro re evaluation Prior to the surgical procedure Vital signs reviewed Hospitalist Physical - Constitutional Vitals: Temp Pulse Resp BP Pulse Ox 97.5 F L 63 18 122/44 100 12/30/18 08:00 12/30/18 09:54 12/30/18 09:00 12/30/18 09:54 12/30/18 09:00 General appearance: Present: no acute distress, well-nourished, other (intubated on vent) - EENT Eyes: Present: PERRL, EOM intact - Neck Neck: Present: supple, normal ROM - Respiratory Respiratory effort: normal Respiratory: bilateral: diminished, rhonchi, negative: rales, wheezing - Cardiovascular Rhythm: regular Heart Sounds: Present: S1 & S2 - Extremities Extremities: no ischemia, No edema - Abdominal General gastrointestinal: soft, non-tender, non-distended, normal bowel sounds - Integumentary Integumentary: Present: clear, warm - Psychiatric Psychiatric: other (unresponsive on vent) - Neurologic Neurologic: other (unresponsive on vent) Results - Labs CBC & Chem 7: 12/30/18 13:58 12/30/18 13:58 Labs: Laboratory Last Values WBC 5.6 K/mm3 (4.5-11.0) 12/29/18 05:45 RBC 3.73 M/mm3 (3.65-5.03) 12/29/18 05:45 Hgb 10.1 gm/dl (10.1-14.3) 12/29/18 05:45 Hct 29.7 % (30.3-42.9) L 12/29/18 05:45 MCV 80 fl (79-97) 12/29/18 05:45 MCH 27 pg (28-32) L 12/29/18 05:45 MCHC 34 % (30-34) 12/29/18 05:45 RDW 23.8 % (13.2-15.2) H 12/29/18 05:45 Plt Count 32 K/mm3 (140-440) L 12/29/18 05:45 Lymph % (Auto) 8.9 % (13.4-35.0) L 12/27/18 16:20 [place] % (Auto) 6.1 % (0.0-7.3) 12/28/18 07:30 Eos % (Auto) 0.1 % (0.0-4.3) 12/28/18 07:30 Baso % (Auto) 0.3 % (0.0-1.8) 12/27/18 16:20 Lymph # 0.6 K/mm3 (1.2-5.4) L 12/27/18 16:20 [place] # 0.5 K/mm3 (0.0-0.8) 12/27/18 16:20 Eos # 0.0 K/mm3 (0.0-0.4) 12/27/18 16:20 Baso # 0.0 K/mm3 (0.0-0.1) 12/27/18 16:20 Add Manual Diff Complete 12/29/18 05:45 Total Counted 100 12/29/18 05:45 Seg Neutrophils % 86.0 % (40.0-70.0) H 12/28/18 07:30 Seg Neuts % (Manual) 94.0 % (40.0-70.0) H 12/29/18 05:45 Band Neutrophils % 1.0 % 12/29/18 05:45 Lymphocytes % (Manual) 4.0 % (13.4-35.0) L 12/29/18 05:45 Reactive Lymphs % (Man) 0 % 12/29/18 05:45 Monocytes % (Manual) 0 % (0.0-7.3) 12/29/18 05:45 Eosinophils % (Manual) 1.0 % (0.0-4.3) 12/29/18 05:45 Basophils % (Manual) 0 % (0.0-1.8) 12/29/18 05:45 Metamyelocytes % 0 % 12/29/18 05:45 Myelocytes % 0 % 12/29/18 05:45 Promyelocytes % 0 % 12/29/18 05:45 Blast Cells % 0 % 12/29/18 05:45 Nucleated RBC % 1.0 % (0.0-0.9) H 12/29/18 05:45 Seg Neutrophils # 5.8 K/mm3 (1.8-7.7) 12/28/18 07:30 Seg Neutrophils # Man 5.3 K/mm3 (1.8-7.7) 12/29/18 05:45 Band Neutrophils # 0.1 K/mm3 12/29/18 05:45 Lymphocytes # (Manual) 0.2 K/mm3 (1.2-5.4) L 12/29/18 05:45 Abs React Lymphs (Man) 0.0 K/mm3 12/29/18 05:45 Monocytes # (Manual) 0.0 K/mm3 (0.0-0.8) 12/29/18 05:45 Eosinophils # (Manual) 0.1 K/mm3 (0.0-0.4) 12/29/18 05:45 Basophils # (Manual) 0.0 K/mm3 (0.0-0.1) 12/29/18 05:45 Metamyelocytes # 0.0 K/mm3 12/29/18 05:45 Myelocytes # 0.0 K/mm3 12/29/18 05:45 Promyelocytes # 0.0 K/mm3 12/29/18 05:45 Blast Cells # 0.0 K/mm3 12/29/18 05:45 WBC Morphology Not Reportable 12/29/18 05:45 Hypersegmented Neuts Not Reportable 12/29/18 05:45 Hyposegmented Neuts Not Reportable 12/29/18 05:45 Hypogranular Neuts Not Reportable 12/29/18 05:45 Smudge Cells Not Reportable 12/29/18 05:45 Toxic Granulation Not Reportable 12/29/18 05:45 Toxic Vacuolation Not Reportable 12/29/18 05:45 Dohle Bodies Not Reportable 12/29/18 05:45 Pel[place]-Huet Anomaly Not Reportable 12/29/18 05:45 Mark Rods Not Reportable 12/29/18 05:45 Platelet Estimate Appears decreased 12/29/18 05:45 Clumped Platelets Not Reportable 12/29/18 05:45 Plt Clumps, EDTA Not Reportable 12/29/18 05:45 Large Platelets Not Reportable 12/29/18 05:45 Giant Platelets Few 12/29/18 05:45 Platelet Satelliting Not Reportable 12/29/18 05:45 Plt Morphology Comment Not Reportable 12/29/18 05:45 RBC Morphology Not Reportable 12/29/18 05:45 Dimorphic RBCs Not Reportable 12/29/18 05:45 Polychromasia Not Reportable 12/29/18 05:45 Hypochromasia Few 12/29/18 05:45 Poikilocytosis Not Reportable 12/29/18 05:45 Anisocytosis Not Reportable 12/29/18 05:45 Microcytosis Not Reportable 12/29/18 05:45 Macrocytosis Not Reportable 12/29/18 05:45 Spherocytes Few 12/29/18 05:45 Pappenheimer Bodies Not Reportable 12/29/18 05:45 Sickle Cells Not Reportable 12/29/18 05:45 Target Cells 1+ 12/29/18 05:45 Tear Drop Cells Not Reportable 12/29/18 05:45 Ovalocytes Not Reportable 12/29/18 05:45 Helmet Cells Not Reportable 12/29/18 05:45 [place] Bodies Not Reportable 12/29/18 05:45 [place] Rings Not Reportable 12/29/18 05:45 Aneesh Cells Not Reportable 12/29/18 05:45 Bite Cells Not Reportable 12/29/18 05:45 Crenated Cell Not Reportable 12/29/18 05:45 Elliptocytes Not Reportable 12/29/18 05:45 Acanthocytes (Spur) Not Reportable 12/29/18 05:45 Rouleaux Not Reportable 12/29/18 05:45 Hemoglobin C Crystals Not Reportable 12/29/18 05:45 Schistocytes Not Reportable 12/29/18 05:45 Malaria parasites Not Reportable 12/29/18 05:45 Stef Bodies Not Reportable 12/29/18 05:45 Hem Pathologist Commnt No 12/29/18 05:45 PT 20.2 Sec. (12.2-14.9) H 12/12/18 08:00 INR 1.61 (0.87-1.13) H 12/12/18 08:00 APTT 30.9 Sec. (24.2-36.6) 12/10/18 10:40 POC ABG pH 7.325 (7.35-7.45) L 12/15/18 03:37 POC ABG pCO2 28.6 (35-45) L 12/15/18 03:37 POC ABG pO2 105 (80-105) 12/15/18 03:37 POC ABG HCO3 14.9 12/15/18 03:37 POC ABG Total CO2 16 12/15/18 03:37 POC ABG O2 Sat 98 12/15/18 03:37 POC ABG Base Excess -11 12/15/18 03:37 FiO2 25 % 03/10/19 03:37 Sodium 141 mmol/L (137-145) 12/29/18 05:45 Potassium 3.7 mmol/L (3.6-5.0) 12/29/18 05:45 Chloride 105.4 mmol/L (98-107) 12/29/18 05:45 Carbon Dioxide 20 mmol/L (22-30) L 12/29/18 05:45 Anion Gap 19 mmol/L 12/29/18 05:45 BUN 103 mg/dL (7-17) H 12/29/18 05:45 Creatinine 2.7 mg/dL (0.7-1.2) H 12/29/18 05:45 Estimated GFR 20 ml/min 12/29/18 05:45 BUN/Creatinine Ratio 38 % 12/29/18 05:45 Glucose 97 mg/dL (65-100) 12/29/18 05:45 POC Glucose 129 (70-105) H 12/30/18 05:44 Hemoglobin A1c 4.9 % (4-6) 12/10/18 04:38 Lactic Acid 3.00 mmol/L (0.7-2.0) H* 12/08/18 15:21 Calcium 6.6 mg/dL (8.4-10.2) L 12/29/18 05:45 Phosphorus 7.20 mg/dL (2.5-4.5) H 12/29/18 05:45 Magnesium 2.30 mg/dL (1.7-2.3) 12/29/18 05:45 Total Bilirubin 0.40 mg/dL (0.1-1.2) 12/29/18 05:45 AST 49 units/L (5-40) H 12/29/18 05:45 ALT 16 units/L (7-56) 12/29/18 05:45 Alkaline Phosphatase 309 units/L (35-129) H 12/29/18 05:45 Total Creatine Kinase 258 units/L (30-135) H 12/08/18 13:40 C-Reactive Protein 19.60 mg/dL (0.00-1.30) H 12/09/18 18:18 Total Protein 4.6 g/dL (6.3-8.2) L 12/29/18 05:45 Albumin 1.6 g/dL (3.9-5) L 12/29/18 05:45 Albumin/Globulin Ratio 0.5 % 12/29/18 05:45 TSH 0.268 mlU/mL (0.270-4.200) L 12/09/18 15:54 Free T4 0.58 ng/dL (0.76-1.46) L 12/09/18 15:54 Urine Color Yolie (Yellow) 12/08/18 13:40 Urine Turbidity Cloudy (Clear) 12/08/18 13:40 Urine pH 7.0 (5.0-7.0) 12/08/18 13:40 Ur Specific [place] 1.015 (1.003-1.030) 12/08/18 13:40 Urine Protein 100 mg/dl mg/dL (Negative) 12/08/18 13:40 Urine Glucose (UA) Neg mg/dL (Negative) 12/08/18 13:40 Urine Ketones Neg mg/dL (Negative) 12/08/18 13:40 Urine Blood Sm (Negative) 12/08/18 13:40 Urine Nitrite Neg (Negative) 12/08/18 13:40 Urine Bilirubin Neg (Negative) 12/08/18 13:40 Urine Urobilinogen 2.0 mg/dL (<2.0) 12/08/18 13:40 Ur Leukocyte Esterase Mod (Negative) 12/08/18 13:40 Urine WBC (Auto) 157.0 /HPF (0.0-6.0) H 12/08/18 13:40 Urine RBC (Auto) 8.0 /HPF (0.0-6.0) 12/08/18 13:40 U Epithel Cells (Auto) 1.0 /HPF (0-13.0) 12/08/18 13:40 Urine Bacteria (Auto) 4+ /HPF (Negative) 12/08/18 13:40 Urine Mucus 2+ /HPF 12/08/18 13:40 Random Vancomycin 15.9 ug/mL (0-40.0) 12/18/18 04:08 JEFFREY Screen Negative (Negative) 12/09/18 15:54 Blood Type B POSITIVE 12/27/18 20:16 Antibody Screen Negative 12/27/18 20:16 Crossmatch See Detail 12/27/18 20:16 Active Medications - Current Medications Current Medications: Generic Name Dose Route Start Last Admin Trade Name Freq PRN Reason Stop Dose Admin Acetaminophen 650 mg 12/09/18 01:00 12/28/18 00:24 Tylenol WI 650 mg Q4H PRN Administration Pain MILD(1-3)/Fever >100.5/TURNER Albuterol 2.5 mg 12/09/18 00:31 Proventil IH Q4HRT PRN Shortness Of Breath Albuterol/Ipratropium 1 ampul 12/09/18 02:00 12/30/18 07:18 Duoneb *Not For Prn Use* IH 1 ampul Q6HRT KOLE Administration Amlodipine Besylate 10 mg 12/28/18 10:00 12/30/18 09:54 Norvasc PO 10 mg DAILY KOLE Administration Lipase/Protease/Amylase 1 each 12/09/18 04:[address] 10,500 Unit FEEDTUBE PRN PRN For Clogged Feeding Tube Atorvastatin Calcium 20 mg 12/28/18 22:00 12/29/18 22:26 Lipitor PO 20 mg QHS KOLE Administration Dextrose 50 ml 12/24/18 00:42 12/24/18 00:30 D50w (25gm) Syringe IV 50 ml PRN PRN Administration Hypoglycemia Hydralazine HCl 50 mg 12/28/18 08:00 12/30/18 09:53 Apresoline PO 50 mg TID KOLE Administration Hydrophilic Ointment 1 applic 12/14/18 13:00 Vaseline Lip Therapy TP DIRECT PRN Dry tongue Norepinephrine 4 mg in 250 mls @ 7.5 mls/hr 12/18/18 18:00 12/19/18 18:00 Levophed Drip 4 Mg/Ns 250 Ml IV 0 mcg/min TITR KOLE 0 mls/hr Titration Protocol 2 MCG/MIN Sodium Chloride 1,000 mls @ 50 mls/hr 12/23/18 13:00 12/29/18 20:14 Nacl 0.9% 1000 Ml IV 50 mls/hr DIRECT KOLE Administration Insulin Human Lispro 0 unit 12/11/18 12:00 12/30/18 06:34 Humalog SUB-Q Not Given Q6HR KOLE Protocol Lansoprazole 30 mg 12/12/18 10:00 12/30/18 09:52 Prevacid Solutab FEEDTUBE 30 mg BID KOLE Administration Metoprolol Tartrate 25 mg 12/27/18 23:45 12/30/18 08:45 Lopressor PO 25 mg BID@0800,1700 KOLE Administration Multi-Ingred Cream/Lotion/Oil/Oint 1 applic 12/08/18 13:31 Artificial Tears Ophth Oint OU Q4HR PRN Dry Eye(s) Ondansetron HCl 4 mg 12/09/18 00:31 Zofran IV Q8H PRN Nausea And Vomiting Promethazine HCl/Codeine 5 ml 12/27/18 23:49 Phenergan/Codeine 6.25-10 Mg/5ml PO Q6H PRN cough Simple Syrup 15 ml 12/09/18 04:05 Simple Syrup FEEDTUBE PRN PRN Hypoglycemia Simple Syrup 30 ml 12/09/18 04:05 Simple Syrup FEEDTUBE PRN PRN Hypoglycemia Sodium Bicarbonate 325 mg 12/09/18 04:05 Sodium Bicarbonate FEEDTUBE PRN PRN For Clogged Feeding Tube Sodium Chloride 10 ml 12/09/18 10:00 12/29/18 23:20 Sodium Chloride Flush Syringe 10 Ml IV 10 ml BID KOLE Administration Sodium Chloride 10 ml 12/09/18 00:31 12/17/18 10:47 Sodium Chloride Flush Syringe 10 Ml IV 10 ml PRN PRN Administration LINE FLUSH Nutrition/Malnutrition Assess - Dietary Evaluation Nutrition/Malnutrition Findings: Nutrition Notes Start: 12/09/18 12:11 Freq: Status: Active Protocol: Document 12/23/18 17:22 OL (Rec: 12/23/18 17:26 OL [id number]) Nutrition Notes Initial or Follow up Reassessment Current Diagnosis Acute Kidney Injury,Sepsis, Respiratory Failure Other Pertinent Diagnosis Acute encephalopathy, Pericardial effusion Current Diet TF - Glucerna 1.2 at 50ml/hr Labs/Tests Na 134 BUN 80 Cr 2.4 Pertinent Medications Reviewed Height 5 ft 1 in Weight 68.2 kg [place] Body Weight (kg) 47.72 BMI 28.4 Weight change and time frame Wt. changed noted Subjective/Other Information TF and vent support continue. Discussed pt. during interdisciplinary rounds. Trach/PEG possible. Percent of energy/protein needs met: 100% energy 88% protein Burn Absent Trauma Absent #1 Nutrition Diagnosis Inadequate oral intake Diagnosis Progress(for reassessment Continues documentation) Is patient on ventilator? Yes Is Patient Ambulatory and/or Out of Bed No REE-([facility]-confined to bed) [phone] Calculation Used for Recommendations [facility] Additional Notes Pro needs 1.2-2g/k-136g/ day Fluid needs 1ml/kcal Nutrition Intervention Nutrition Support: Glucerna 1.2 at 50ml/hr Flush with 100ml q4h Kcal 1,440 Protein (gm) 72 Fluid (mL) 966 Goal #1 TF tolerance Goal #2 TF to meet at least 80% energy and pro needs Follow-Up By: 12/30/18 Additional Comments f/u: stable TF, vent status, wt.
--- NOTE | 2018-12-30 13:54 | Progress Note ---
Subjective Date of service: 12/30/18 Principal diagnosis: Rectal Bleed Interval history: non responsive with dyscconjugate gaze not conscious will not follow commands plan repeat CT did chart review and dictated a note Thanks Objective - Vital Sign Vital Signs - 12hr 12/30/18 12/30/18 12/30/18 02:00 03:00 04:00 Temperature 98.8 F Pulse Rate 62 61 61 Pulse Rate [ Anterior Bilateral Throughout] Pulse Rate [ 62 63 From Monitor] Pulse Rate [ 67 Throughout] Respiratory 18 15 18 Rate Respiratory Rate [Anterior Bilateral Throughout] Respiratory 18 Rate [ Throughout] Blood Pressure 115/29 118/32 103/43 O2 Sat by Pulse 100 99 100 Oximetry 12/30/18 12/30/18 12/30/18 05:00 06:00 07:00 Temperature Pulse Rate 61 60 60 Pulse Rate [ Anterior Bilateral Throughout] Pulse Rate [ From Monitor] Pulse Rate [ Throughout] Respiratory 18 18 15 Rate Respiratory Rate [Anterior Bilateral Throughout] Respiratory Rate [ Throughout] Blood Pressure 103/43 112/34 116/38 O2 Sat by Pulse 100 100 100 Oximetry 12/30/18 12/30/18 12/30/18 07:14 07:18 08:00 Temperature 97.5 F L Pulse Rate 60 60 Pulse Rate [ Anterior Bilateral Throughout] Pulse Rate [ From Monitor] Pulse Rate [ 60 Throughout] Respiratory 18 Rate Respiratory Rate [Anterior Bilateral Throughout] Respiratory 18 Rate [ Throughout] Blood Pressure 141/43 124/32 O2 Sat by Pulse 100 100 Oximetry 12/30/18 12/30/18 12/30/18 08:45 09:00 09:53 Temperature Pulse Rate 63 60 63 Pulse Rate [ Anterior Bilateral Throughout] Pulse Rate [ From Monitor] Pulse Rate [ Throughout] Respiratory 18 Rate Respiratory Rate [Anterior Bilateral Throughout] Respiratory Rate [ Throughout] Blood Pressure 122/44 113/32 122/44 O2 Sat by Pulse 100 Oximetry 12/30/18 12/30/18 12/30/18 09:54 11:54 12:00 Temperature 98.4 F Pulse Rate 63 71 Pulse Rate [ Anterior Bilateral Throughout] Pulse Rate [ From Monitor] Pulse Rate [ Throughout] Respiratory Rate Respiratory Rate [Anterior Bilateral Throughout] Respiratory Rate [ Throughout] Blood Pressure 122/44 124/36 O2 Sat by Pulse 100 Oximetry 12/30/18 12/30/18 12:49 13:00 Temperature Pulse Rate Pulse Rate [ 68 61 Anterior Bilateral Throughout] Pulse Rate [ From Monitor] Pulse Rate [ Throughout] Respiratory Rate Respiratory 18 18 Rate [Anterior Bilateral Throughout] Respiratory Rate [ Throughout] Blood Pressure O2 Sat by Pulse Oximetry - Laboratory Findings CBC and BMP: 12/29/18 05:45 12/29/18 05:45 Abnormal Lab Findings: Abnormal Labs 12/08/18 12/08/18 12/08/18 12:58 13:40 13:40 WBC RBC Hgb Hct MCV MCH RDW Plt Count Lymph % (Auto) [place] % (Auto) Lymph # Seg Neutrophils % Seg Neuts % (Manual) Lymphocytes % (Manual) Monocytes % (Manual) Nucleated RBC % Seg Neutrophils # Seg Neutrophils # Man Lymphocytes # (Manual) Monocytes # (Manual) PT INR POC ABG pH POC ABG pCO2 POC ABG pO2 Sodium Potassium Chloride Carbon Dioxide BUN Creatinine Glucose POC Glucose 143 H Lactic Acid Calcium Phosphorus Magnesium Total Bilirubin AST Alkaline Phosphatase Total Creatine Kinase C-Reactive Protein Total Protein Albumin TSH Free T4 Urine WBC (Auto) 157.0 H Crossmatch See Detail 12/08/18 12/08/18 12/08/18 13:40 13:40 13:40 WBC RBC 3.06 L Hgb 6.8 L Hct 21.1 L MCV 69 L MCH 22 L RDW 16.2 H Plt Count 56 L Lymph % (Auto) [place] % (Auto) Lymph # Seg Neutrophils % Seg Neuts % (Manual) Lymphocytes % (Manual) 2.0 L Monocytes % (Manual) Nucleated RBC % Seg Neutrophils # Seg Neutrophils # Man Lymphocytes # (Manual) 0.2 L Monocytes # (Manual) PT INR POC ABG pH POC ABG pCO2 POC ABG pO2 Sodium Potassium 3.2 L Chloride Carbon Dioxide 18 L BUN 64 H Creatinine 1.5 H Glucose 145 H POC Glucose Lactic Acid 4.00 H* Calcium 7.7 L Phosphorus Magnesium Total Bilirubin AST Alkaline Phosphatase Total Creatine Kinase 258 H C-Reactive Protein Total Protein 4.6 L Albumin 1.8 L TSH Free T4 Urine WBC (Auto) Crossmatch 12/08/18 12/08/18 12/08/18 14:29 15:21 16:06 WBC RBC Hgb Hct MCV MCH RDW Plt Count Lymph % (Auto) [place] % (Auto) Lymph # Seg Neutrophils % Seg Neuts % (Manual) Lymphocytes % (Manual) Monocytes % (Manual) Nucleated RBC % Seg Neutrophils # Seg Neutrophils # Man Lymphocytes # (Manual) Monocytes # (Manual) PT 20.5 H INR 1.64 H POC ABG pH POC ABG pCO2 34.2 L POC ABG pO2 465 H Sodium Potassium Chloride Carbon Dioxide BUN Creatinine Glucose POC Glucose Lactic Acid 3.00 H* Calcium Phosphorus Magnesium Total Bilirubin AST Alkaline Phosphatase Total Creatine Kinase C-Reactive Protein Total Protein Albumin TSH Free T4 Urine WBC (Auto) Crossmatch 12/09/18 12/09/18 12/09/18 02:31 05:36 05:36 WBC 14.5 H RBC Hgb Hct MCV 75 L MCH 25 L RDW 20.4 H Plt Count 68 L Lymph % (Auto) [place] % (Auto) Lymph # Seg Neutrophils % Seg Neuts % (Manual) 81.0 H Lymphocytes % (Manual) 1.0 L Monocytes % (Manual) Nucleated RBC % Seg Neutrophils # Seg Neutrophils # Man 11.7 H Lymphocytes # (Manual) 0.1 L Monocytes # (Manual) PT INR POC ABG pH POC ABG pCO2 POC ABG pO2 Sodium Potassium Chloride 107.6 H Carbon Dioxide 18 L BUN 75 H Creatinine 1.9 H Glucose 136 H POC Glucose 152 H Lactic Acid Calcium 7.9 L Phosphorus Magnesium Total Bilirubin 1.60 H AST 44 H Alkaline Phosphatase Total Creatine Kinase C-Reactive Protein Total Protein 5.2 L Albumin 2.4 L TSH Free T4 Urine WBC (Auto) Crossmatch 12/09/18 12/09/18 12/09/18 05:43 10:47 13:46 WBC RBC Hgb Hct MCV MCH RDW Plt Count Lymph % (Auto) [place] % (Auto) Lymph # Seg Neutrophils % Seg Neuts % (Manual) Lymphocytes % (Manual) Monocytes % (Manual) Nucleated RBC % Seg Neutrophils # Seg Neutrophils # Man Lymphocytes # (Manual) Monocytes # (Manual) PT INR POC ABG pH 7.308 L POC ABG pCO2 POC ABG pO2 183 H Sodium Potassium Chloride Carbon Dioxide BUN Creatinine Glucose POC Glucose 150 H 162 H Lactic Acid Calcium Phosphorus Magnesium Total Bilirubin AST Alkaline Phosphatase Total Creatine Kinase C-Reactive Protein Total Protein Albumin TSH Free T4 Urine WBC (Auto) Crossmatch 12/09/18 12/09/18 12/09/18 15:54 15:54 16:40 WBC RBC Hgb Hct MCV MCH RDW Plt Count Lymph % (Auto) [place] % (Auto) Lymph # Seg Neutrophils % Seg Neuts % (Manual) Lymphocytes % (Manual) Monocytes % (Manual) Nucleated RBC % Seg Neutrophils # Seg Neutrophils # Man Lymphocytes # (Manual) Monocytes # (Manual) PT INR POC ABG pH POC ABG pCO2 POC ABG pO2 Sodium Potassium Chloride Carbon Dioxide BUN Creatinine Glucose POC Glucose 197 H Lactic Acid Calcium Phosphorus Magnesium Total Bilirubin AST Alkaline Phosphatase Total Creatine Kinase C-Reactive Protein Total Protein Albumin TSH 0.268 L Free T4 0.58 L Urine WBC (Auto) Crossmatch 12/09/18 12/09/18 12/09/18 18:18 18:18 21:51 WBC RBC Hgb Hct MCV MCH RDW Plt Count Lymph % (Auto) [place] % (Auto) Lymph # Seg Neutrophils % Seg Neuts % (Manual) Lymphocytes % (Manual) Monocytes % (Manual) Nucleated RBC % Seg Neutrophils # Seg Neutrophils # Man Lymphocytes # (Manual) Monocytes # (Manual) PT INR POC ABG pH POC ABG pCO2 POC ABG pO2 Sodium Potassium Chloride 108.2 H Carbon Dioxide 16 L BUN 89 H Creatinine 2.3 H Glucose 180 H POC Glucose 198 H Lactic Acid Calcium 7.9 L Phosphorus Magnesium Total Bilirubin AST Alkaline Phosphatase Total Creatine Kinase C-Reactive Protein 19.60 H Total Protein Albumin TSH Free T4 Urine WBC (Auto) Crossmatch 12/10/18 12/10/18 12/10/18 01:59 04:14 04:38 WBC 11.5 H RBC Hgb Hct MCV 75 L MCH 25 L RDW 21.1 H Plt Count 81 L Lymph % (Auto) 5.6 L [place] % (Auto) Lymph # 0.6 L Seg Neutrophils % 89.8 H Seg Neuts % (Manual) Lymphocytes % (Manual) Monocytes % (Manual) Nucleated RBC % Seg Neutrophils # 10.3 H Seg Neutrophils # Man Lymphocytes # (Manual) Monocytes # (Manual) PT INR POC ABG pH 7.273 L POC ABG pCO2 32.1 L POC ABG pO2 161 H Sodium Potassium Chloride Carbon Dioxide BUN Creatinine Glucose POC Glucose 219 H Lactic Acid Calcium Phosphorus Magnesium Total Bilirubin AST Alkaline Phosphatase Total Creatine Kinase C-Reactive Protein Total Protein Albumin TSH Free T4 Urine WBC (Auto) Crossmatch 12/10/18 12/10/18 12/10/18 04:38 05:07 07:26 WBC RBC Hgb Hct MCV MCH RDW Plt Count Lymph % (Auto) [place] % (Auto) Lymph # Seg Neutrophils % Seg Neuts % (Manual) Lymphocytes % (Manual) Monocytes % (Manual) Nucleated RBC % Seg Neutrophils # Seg Neutrophils # Man Lymphocytes # (Manual) Monocytes # (Manual) PT INR POC ABG pH POC ABG pCO2 POC ABG pO2 Sodium Potassium Chloride 112.5 H Carbon Dioxide 14 L BUN 94 H Creatinine 2.4 H Glucose 207 H POC Glucose 221 H 212 H Lactic Acid Calcium 7.7 L Phosphorus Magnesium Total Bilirubin AST Alkaline Phosphatase Total Creatine Kinase C-Reactive Protein Total Protein Albumin TSH Free T4 Urine WBC (Auto) Crossmatch 12/10/18 12/10/18 12/10/18 10:40 11:15 14:21 WBC RBC Hgb Hct MCV MCH RDW Plt Count Lymph % (Auto) [place] % (Auto) Lymph # Seg Neutrophils % Seg Neuts % (Manual) Lymphocytes % (Manual) Monocytes % (Manual) Nucleated RBC % Seg Neutrophils # Seg Neutrophils # Man Lymphocytes # (Manual) Monocytes # (Manual) PT 21.4 H INR 1.73 H POC ABG pH 7.214 L POC ABG pCO2 32.8 L POC ABG pO2 Sodium Potassium Chloride Carbon Dioxide BUN Creatinine Glucose POC Glucose 227 H Lactic Acid Calcium Phosphorus Magnesium Total Bilirubin AST Alkaline Phosphatase Total Creatine Kinase C-Reactive Protein Total Protein Albumin TSH Free T4 Urine WBC (Auto) Crossmatch 12/10/18 12/10/18 12/11/18 15:47 22:38 03:36 WBC RBC Hgb Hct MCV MCH RDW Plt Count Lymph % (Auto) [place] % (Auto) Lymph # Seg Neutrophils % Seg Neuts % (Manual) Lymphocytes % (Manual) Monocytes % (Manual) Nucleated RBC % Seg Neutrophils # Seg Neutrophils # Man Lymphocytes # (Manual) Monocytes # (Manual) PT INR POC ABG pH POC ABG pCO2 26.2 L POC ABG pO2 138 H Sodium Potassium Chloride Carbon Dioxide BUN Creatinine Glucose POC Glucose 202 H 259 H Lactic Acid Calcium Phosphorus Magnesium Total Bilirubin AST Alkaline Phosphatase Total Creatine Kinase C-Reactive Protein Total Protein Albumin TSH Free T4 Urine WBC (Auto) Crossmatch 12/11/18 12/11/18 12/11/18 04:12 05:00 06:19 WBC RBC Hgb Hct MCV MCH RDW Plt Count Lymph % (Auto) [place] % (Auto) Lymph # Seg Neutrophils % Seg Neuts % (Manual) Lymphocytes % (Manual) Monocytes % (Manual) Nucleated RBC % Seg Neutrophils # Seg Neutrophils # Man Lymphocytes # (Manual) Monocytes # (Manual) PT 19.5 H INR 1.54 H POC ABG pH POC ABG pCO2 24.6 L POC ABG pO2 119 H Sodium Potassium Chloride Carbon Dioxide BUN Creatinine Glucose POC Glucose 174 H Lactic Acid Calcium Phosphorus Magnesium Total Bilirubin AST Alkaline Phosphatase Total Creatine Kinase C-Reactive Protein Total Protein Albumin TSH Free T4 Urine WBC (Auto) Crossmatch 12/11/18 12/11/18 12/11/18 11:10 11:10 18:10 WBC 14.3 H RBC Hgb Hct MCV 73 L MCH 24 L RDW 21.5 H Plt Count Lymph % (Auto) [place] % (Auto) Lymph # Seg Neutrophils % Seg Neuts % (Manual) Lymphocytes % (Manual) Monocytes % (Manual) Nucleated RBC % Seg Neutrophils # Seg Neutrophils # Man Lymphocytes # (Manual) Monocytes # (Manual) PT INR POC ABG pH POC ABG pCO2 POC ABG pO2 Sodium Potassium Chloride 110.5 H Carbon Dioxide 15 L BUN 101 H Creatinine 2.4 H Glucose 119 H POC Glucose 147 H Lactic Acid Calcium 7.7 L Phosphorus Magnesium Total Bilirubin AST Alkaline Phosphatase Total Creatine Kinase C-Reactive Protein Total Protein Albumin TSH Free T4 Urine WBC (Auto) Crossmatch 12/11/18 12/12/18 12/12/18 23:25 05:37 06:03 WBC RBC Hgb Hct MCV MCH RDW Plt Count Lymph % (Auto) [place] % (Auto) Lymph # Seg Neutrophils % Seg Neuts % (Manual) Lymphocytes % (Manual) Monocytes % (Manual) Nucleated RBC % Seg Neutrophils # Seg Neutrophils # Man Lymphocytes # (Manual) Monocytes # (Manual) PT INR POC ABG pH 7.346 L POC ABG pCO2 28.3 L POC ABG pO2 120 H Sodium Potassium Chloride Carbon Dioxide BUN Creatinine Glucose POC Glucose 143 H 154 H Lactic Acid Calcium Phosphorus Magnesium Total Bilirubin AST Alkaline Phosphatase Total Creatine Kinase C-Reactive Protein Total Protein Albumin TSH Free T4 Urine WBC (Auto) Crossmatch 12/12/18 12/12/18 12/12/18 08:00 08:00 08:00 WBC 16.2 H RBC Hgb Hct MCV 74 L MCH 25 L RDW 21.9 H Plt Count 21 L Lymph % (Auto) [place] % (Auto) Lymph # Seg Neutrophils % Seg Neuts % (Manual) Lymphocytes % (Manual) Monocytes % (Manual) Nucleated RBC % Seg Neutrophils # Seg Neutrophils # Man Lymphocytes # (Manual) Monocytes # (Manual) PT 20.2 H INR 1.61 H POC ABG pH POC ABG pCO2 POC ABG pO2 Sodium Potassium Chloride 107.4 H Carbon Dioxide 16 L BUN 101 H Creatinine 2.3 H Glucose 169 H POC Glucose Lactic Acid Calcium 8.2 L Phosphorus Magnesium Total Bilirubin AST Alkaline Phosphatase Total Creatine Kinase C-Reactive Protein Total Protein Albumin TSH Free T4 Urine WBC (Auto) Crossmatch 12/12/18 12/12/18 12/13/18 12:59 18:01 04:28 WBC 18.6 H RBC Hgb Hct MCV 74 L MCH 24 L RDW 21.8 H Plt Count 34 L Lymph % (Auto) [place] % (Auto) Lymph # Seg Neutrophils % Seg Neuts % (Manual) 97.0 H Lymphocytes % (Manual) 2.0 L Monocytes % (Manual) Nucleated RBC % 1.0 H Seg Neutrophils # Seg Neutrophils # Man 18.0 H Lymphocytes # (Manual) 0.4 L Monocytes # (Manual) PT INR POC ABG pH POC ABG pCO2 POC ABG pO2 Sodium Potassium Chloride Carbon Dioxide BUN Creatinine Glucose POC Glucose 158 H 123 H Lactic Acid Calcium Phosphorus Magnesium Total Bilirubin AST Alkaline Phosphatase Total Creatine Kinase C-Reactive Protein Total Protein Albumin TSH Free T4 Urine WBC (Auto) Crossmatch 12/13/18 12/13/18 12/13/18 04:28 04:45 19:17 WBC RBC Hgb Hct MCV MCH RDW Plt Count Lymph % (Auto) [place] % (Auto) Lymph # Seg Neutrophils % Seg Neuts % (Manual) Lymphocytes % (Manual) Monocytes % (Manual) Nucleated RBC % Seg Neutrophils # Seg Neutrophils # Man Lymphocytes # (Manual) Monocytes # (Manual) PT INR POC ABG pH 7.327 L POC ABG pCO2 31.1 L POC ABG pO2 136 H Sodium Potassium Chloride 112.0 H Carbon Dioxide 17 L BUN 97 H Creatinine 2.2 H Glucose POC Glucose 106 H Lactic Acid Calcium 8.1 L Phosphorus Magnesium Total Bilirubin AST Alkaline Phosphatase Total Creatine Kinase C-Reactive Protein Total Protein Albumin TSH Free T4 Urine WBC (Auto) Crossmatch 12/13/18 12/14/18 12/14/18 23:24 03:35 03:35 WBC 22.0 H RBC Hgb Hct MCV 75 L MCH 24 L RDW 22.2 H Plt Count 44 L Lymph % (Auto) [place] % (Auto) Lymph # Seg Neutrophils % Seg Neuts % (Manual) 96.0 H Lymphocytes % (Manual) 3.0 L Monocytes % (Manual) Nucleated RBC % Seg Neutrophils # Seg Neutrophils # Man 21.1 H Lymphocytes # (Manual) 0.7 L Monocytes # (Manual) PT INR POC ABG pH POC ABG pCO2 POC ABG pO2 Sodium 136 L Potassium Chloride 107.2 H Carbon Dioxide 15 L BUN 87 H Creatinine 1.7 H Glucose 156 H POC Glucose 108 H Lactic Acid Calcium 7.7 L Phosphorus Magnesium Total Bilirubin AST Alkaline Phosphatase Total Creatine Kinase C-Reactive Protein Total Protein Albumin TSH Free T4 Urine WBC (Auto) Crossmatch 12/14/18 12/14/18 12/14/18 04:58 05:37 12:10 WBC RBC Hgb Hct MCV MCH RDW Plt Count Lymph % (Auto) [place] % (Auto) Lymph # Seg Neutrophils % Seg Neuts % (Manual) Lymphocytes % (Manual) Monocytes % (Manual) Nucleated RBC % Seg Neutrophils # Seg Neutrophils # Man Lymphocytes # (Manual) Monocytes # (Manual) PT INR POC ABG pH 7.301 L POC ABG pCO2 32.6 L POC ABG pO2 138 H Sodium Potassium Chloride Carbon Dioxide BUN Creatinine Glucose POC Glucose 178 H 208 H Lactic Acid Calcium Phosphorus Magnesium Total Bilirubin AST Alkaline Phosphatase Total Creatine Kinase C-Reactive Protein Total Protein Albumin TSH Free T4 Urine WBC (Auto) Crossmatch 12/14/18 12/14/18 12/15/18 17:44 23:16 03:37 WBC RBC Hgb Hct MCV MCH RDW Plt Count Lymph % (Auto) [place] % (Auto) Lymph # Seg Neutrophils % Seg Neuts % (Manual) Lymphocytes % (Manual) Monocytes % (Manual) Nucleated RBC % Seg Neutrophils # Seg Neutrophils # Man Lymphocytes # (Manual) Monocytes # (Manual) PT INR POC ABG pH 7.325 L POC ABG pCO2 28.6 L POC ABG pO2 Sodium Potassium Chloride Carbon Dioxide BUN Creatinine Glucose POC Glucose 172 H 123 H Lactic Acid Calcium Phosphorus Magnesium Total Bilirubin AST Alkaline Phosphatase Total Creatine Kinase C-Reactive Protein Total Protein Albumin TSH Free T4 Urine WBC (Auto) Crossmatch 12/15/18 12/15/18 12/15/18 05:30 05:30 05:43 WBC 20.1 H RBC Hgb 9.5 L Hct 29.2 L MCV 74 L MCH 24 L RDW 22.7 H Plt Count 48 L Lymph % (Auto) [place] % (Auto) Lymph # Seg Neutrophils % Seg Neuts % (Manual) 96.0 H Lymphocytes % (Manual) 1.0 L Monocytes % (Manual) Nucleated RBC % Seg Neutrophils # Seg Neutrophils # Man 19.3 H Lymphocytes # (Manual) 0.2 L Monocytes # (Manual) PT INR POC ABG pH POC ABG pCO2 POC ABG pO2 Sodium Potassium Chloride 110.8 H Carbon Dioxide 17 L BUN 83 H Creatinine 1.6 H Glucose 150 H POC Glucose 151 H Lactic Acid Calcium 7.7 L Phosphorus Magnesium Total Bilirubin AST Alkaline Phosphatase Total Creatine Kinase C-Reactive Protein Total Protein Albumin TSH Free T4 Urine WBC (Auto) Crossmatch 12/15/18 12/15/18 12/16/18 12:56 18:21 00:10 WBC RBC Hgb Hct MCV MCH RDW Plt Count Lymph % (Auto) [place] % (Auto) Lymph # Seg Neutrophils % Seg Neuts % (Manual) Lymphocytes % (Manual) Monocytes % (Manual) Nucleated RBC % Seg Neutrophils # Seg Neutrophils # Man Lymphocytes # (Manual) Monocytes # (Manual) PT INR POC ABG pH POC ABG pCO2 POC ABG pO2 Sodium Potassium Chloride Carbon Dioxide BUN Creatinine Glucose POC Glucose 190 H 143 H 174 H Lactic Acid Calcium Phosphorus Magnesium Total Bilirubin AST Alkaline Phosphatase Total Creatine Kinase C-Reactive Protein Total Protein Albumin TSH Free T4 Urine WBC (Auto) Crossmatch 12/16/18 12/16/18 12/16/18 05:24 05:30 05:30 WBC 17.1 H RBC Hgb 9.1 L Hct 28.8 L MCV 76 L MCH 24 L RDW 23.5 H Plt Count 37 L Lymph % (Auto) [place] % (Auto) Lymph # Seg Neutrophils % Seg Neuts % (Manual) Lymphocytes % (Manual) 9.0 L Monocytes % (Manual) 9.0 H Nucleated RBC % Seg Neutrophils # Seg Neutrophils # Man 9.6 H Lymphocytes # (Manual) Monocytes # (Manual) 1.5 H PT INR POC ABG pH POC ABG pCO2 POC ABG pO2 Sodium Potassium Chloride 110.8 H Carbon Dioxide 15 L BUN 81 H Creatinine 1.6 H Glucose 161 H POC Glucose 154 H Lactic Acid Calcium 7.6 L Phosphorus Magnesium Total Bilirubin AST Alkaline Phosphatase Total Creatine Kinase C-Reactive Protein Total Protein Albumin TSH Free T4 Urine WBC (Auto) Crossmatch 12/16/18 12/16/18 12/16/18 12:31 17:42 21:56 WBC RBC Hgb Hct MCV MCH RDW Plt Count Lymph % (Auto) [place] % (Auto) Lymph # Seg Neutrophils % Seg Neuts % (Manual) Lymphocytes % (Manual) Monocytes % (Manual) Nucleated RBC % Seg Neutrophils # Seg Neutrophils # Man Lymphocytes # (Manual) Monocytes # (Manual) PT INR POC ABG pH POC ABG pCO2 POC ABG pO2 Sodium Potassium Chloride Carbon Dioxide BUN Creatinine Glucose POC Glucose 172 H 173 H 118 H Lactic Acid Calcium Phosphorus Magnesium Total Bilirubin AST Alkaline Phosphatase Total Creatine Kinase C-Reactive Protein Total Protein Albumin TSH Free T4 Urine WBC (Auto) Crossmatch 12/16/18 12/17/18 12/17/18 23:38 04:24 04:24 WBC 19.2 H RBC Hgb 9.5 L Hct 29.7 L MCV 76 L MCH 24 L RDW 24.4 H Plt Count 26 L Lymph % (Auto) [place] % (Auto) Lymph # Seg Neutrophils % Seg Neuts % (Manual) Lymphocytes % (Manual) 6.0 L Monocytes % (Manual) Nucleated RBC % Seg Neutrophils # Seg Neutrophils # Man 13.1 H Lymphocytes # (Manual) Monocytes # (Manual) PT INR POC ABG pH POC ABG pCO2 POC ABG pO2 Sodium 134 L Potassium Chloride 110.0 H Carbon Dioxide 14 L BUN 83 H Creatinine 1.6 H Glucose POC Glucose 109 H Lactic Acid Calcium 7.8 L Phosphorus Magnesium Total Bilirubin AST Alkaline Phosphatase Total Creatine Kinase C-Reactive Protein Total Protein Albumin TSH Free T4 Urine WBC (Auto) Crossmatch 12/17/18 12/17/18 12/18/18 06:42 17:49 00:40 WBC RBC Hgb Hct MCV MCH RDW Plt Count Lymph % (Auto) [place] % (Auto) Lymph # Seg Neutrophils % Seg Neuts % (Manual) Lymphocytes % (Manual) Monocytes % (Manual) Nucleated RBC % Seg Neutrophils # Seg Neutrophils # Man Lymphocytes # (Manual) Monocytes # (Manual) PT INR POC ABG pH POC ABG pCO2 POC ABG pO2 Sodium Potassium Chloride 113.1 H Carbon Dioxide 13 L BUN 82 H Creatinine 1.6 H Glucose POC Glucose 66 L 109 H Lactic Acid Calcium 8.0 L Phosphorus Magnesium Total Bilirubin AST Alkaline Phosphatase Total Creatine Kinase C-Reactive Protein Total Protein Albumin TSH Free T4 Urine WBC (Auto) Crossmatch 12/18/18 12/18/1819 04:08 04:08 12:45 WBC 26.5 H RBC 3.63 L Hgb 8.7 L Hct 26.8 L MCV 74 L MCH 24 L RDW 23.3 H Plt Count 24 L Lymph % (Auto) [place] % (Auto) Lymph # Seg Neutrophils % Seg Neuts % (Manual) Lymphocytes % (Manual) Monocytes % (Manual) Nucleated RBC % Seg Neutrophils # Seg Neutrophils # Man Lymphocytes # (Manual) Monocytes # (Manual) PT INR POC ABG pH POC ABG pCO2 POC ABG pO2 Sodium Potassium Chloride 114.3 H Carbon Dioxide 16 L BUN 82 H Creatinine 1.7 H Glucose POC Glucose 117 H Lactic Acid Calcium 7.8 L Phosphorus 5.10 H Magnesium Total Bilirubin AST Alkaline Phosphatase Total Creatine Kinase C-Reactive Protein Total Protein Albumin TSH Free T4 Urine WBC (Auto) Crossmatch 12/18/18 12/18/18 12/19/18 17:42 23:39 04:22 WBC 20.4 H RBC 3.01 L Hgb 7.2 L Hct 22.6 L MCV 75 L MCH 24 L RDW 24.5 H Plt Count 52 L D Lymph % (Auto) [place] % (Auto) Lymph # Seg Neutrophils % Seg Neuts % (Manual) Lymphocytes % (Manual) Monocytes % (Manual) Nucleated RBC % Seg Neutrophils # Seg Neutrophils # Man Lymphocytes # (Manual) Monocytes # (Manual) PT INR POC ABG pH POC ABG pCO2 POC ABG pO2 Sodium Potassium Chloride Carbon Dioxide BUN Creatinine Glucose POC Glucose 121 H 184 H Lactic Acid Calcium Phosphorus Magnesium Total Bilirubin AST Alkaline Phosphatase Total Creatine Kinase C-Reactive Protein Total Protein Albumin TSH Free T4 Urine WBC (Auto) Crossmatch 12/19/18 12/19/18 12/19/18 04:22 12:43 18:12 WBC RBC Hgb Hct MCV MCH RDW Plt Count Lymph % (Auto) [place] % (Auto) Lymph # Seg Neutrophils % Seg Neuts % (Manual) Lymphocytes % (Manual) Monocytes % (Manual) Nucleated RBC % Seg Neutrophils # Seg Neutrophils # Man Lymphocytes # (Manual) Monocytes # (Manual) PT INR POC ABG pH POC ABG pCO2 POC ABG pO2 Sodium Potassium Chloride 112.9 H Carbon Dioxide 15 L BUN 76 H Creatinine 1.8 H Glucose 107 H POC Glucose 141 H 227 H Lactic Acid Calcium 7.4 L Phosphorus Magnesium Total Bilirubin AST Alkaline Phosphatase Total Creatine Kinase C-Reactive Protein Total Protein Albumin TSH Free T4 Urine WBC (Auto) Crossmatch 12/19/18 12/19/18 12/20/18 23:55 Unknown 03:07 WBC 15.7 H RBC 2.92 L Hgb 7.2 L 7.1 L Hct 22.2 L 21.6 L MCV 74 L MCH 24 L RDW 24.3 H Plt Count 23 L Lymph % (Auto) [place] % (Auto) Lymph # Seg Neutrophils % Seg Neuts % (Manual) Lymphocytes % (Manual) Monocytes % (Manual) Nucleated RBC % Seg Neutrophils # Seg Neutrophils # Man Lymphocytes # (Manual) Monocytes # (Manual) PT INR POC ABG pH POC ABG pCO2 POC ABG pO2 Sodium Potassium Chloride Carbon Dioxide BUN Creatinine Glucose POC Glucose 174 H Lactic Acid Calcium Phosphorus Magnesium Total Bilirubin AST Alkaline Phosphatase Total Creatine Kinase C-Reactive Protein Total Protein Albumin TSH Free T4 Urine WBC (Auto) Crossmatch 12/20/18 12/20/18 12/20/18 03:07 05:20 11:00 WBC RBC Hgb Hct MCV MCH RDW Plt Count Lymph % (Auto) [place] % (Auto) Lymph # Seg Neutrophils % Seg Neuts % (Manual) Lymphocytes % (Manual) Monocytes % (Manual) Nucleated RBC % Seg Neutrophils # Seg Neutrophils # Man Lymphocytes # (Manual) Monocytes # (Manual) PT INR POC ABG pH POC ABG pCO2 POC ABG pO2 Sodium 136 L Potassium Chloride Carbon Dioxide 20 L BUN 79 H Creatinine 2.1 H Glucose 141 H POC Glucose 210 H Lactic Acid Calcium 7.5 L Phosphorus Magnesium Total Bilirubin AST Alkaline Phosphatase Total Creatine Kinase C-Reactive Protein Total Protein Albumin TSH Free T4 Urine WBC (Auto) Crossmatch See Detail 12/20/18 12/20/18 12/21/18 11:40 17:51 00:33 WBC RBC Hgb Hct MCV MCH RDW Plt Count Lymph % (Auto) [place] % (Auto) Lymph # Seg Neutrophils % Seg Neuts % (Manual) Lymphocytes % (Manual) Monocytes % (Manual) Nucleated RBC % Seg Neutrophils # Seg Neutrophils # Man Lymphocytes # (Manual) Monocytes # (Manual) PT INR POC ABG pH POC ABG pCO2 POC ABG pO2 Sodium Potassium Chloride Carbon Dioxide BUN Creatinine Glucose POC Glucose 183 H 150 H 119 H Lactic Acid Calcium Phosphorus Magnesium Total Bilirubin AST Alkaline Phosphatase Total Creatine Kinase C-Reactive Protein Total Protein Albumin TSH Free T4 Urine WBC (Auto) Crossmatch 12/21/18 12/21/18 12/21/18 05:05 07:19 07:19 WBC 11.9 H RBC 2.83 L Hgb 6.9 L Hct 20.7 L MCV 73 L MCH 24 L RDW 23.9 H Plt Count 11 L* Lymph % (Auto) [place] % (Auto) Lymph # Seg Neutrophils % Seg Neuts % (Manual) Lymphocytes % (Manual) Monocytes % (Manual) Nucleated RBC % Seg Neutrophils # Seg Neutrophils # Man Lymphocytes # (Manual) Monocytes # (Manual) PT INR POC ABG pH POC ABG pCO2 POC ABG pO2 Sodium 135 L Potassium Chloride Carbon Dioxide 21 L BUN 78 H Creatinine 2.3 H Glucose 143 H POC Glucose 165 H Lactic Acid Calcium 7.3 L Phosphorus Magnesium Total Bilirubin AST Alkaline Phosphatase Total Creatine Kinase C-Reactive Protein Total Protein Albumin TSH Free T4 Urine WBC (Auto) Crossmatch 12/21/18 12/21/18 12/21/18 11:55 17:39 18:00 WBC RBC Hgb 7.9 L Hct 23.8 L MCV MCH RDW Plt Count Lymph % (Auto) [place] % (Auto) Lymph # Seg Neutrophils % Seg Neuts % (Manual) Lymphocytes % (Manual) Monocytes % (Manual) Nucleated RBC % Seg Neutrophils # Seg Neutrophils # Man Lymphocytes # (Manual) Monocytes # (Manual) PT INR POC ABG pH POC ABG pCO2 POC ABG pO2 Sodium Potassium Chloride Carbon Dioxide BUN Creatinine Glucose POC Glucose 125 H 108 H Lactic Acid Calcium Phosphorus Magnesium Total Bilirubin AST Alkaline Phosphatase Total Creatine Kinase C-Reactive Protein Total Protein Albumin TSH Free T4 Urine WBC (Auto) Crossmatch 12/21/18 12/22/18 12/22/18 23:55 05:35 05:35 WBC 11.8 H RBC Hgb 9.4 L Hct 28.3 L MCV 76 L MCH 25 L RDW 24.5 H Plt Count 26 L D Lymph % (Auto) [place] % (Auto) Lymph # Seg Neutrophils % Seg Neuts % (Manual) Lymphocytes % (Manual) Monocytes % (Manual) Nucleated RBC % Seg Neutrophils # Seg Neutrophils # Man Lymphocytes # (Manual) Monocytes # (Manual) PT INR POC ABG pH POC ABG pCO2 POC ABG pO2 Sodium 132 L Potassium Chloride Carbon Dioxide 21 L BUN 79 H Creatinine 2.3 H Glucose 131 H POC Glucose 126 H Lactic Acid Calcium 7.4 L Phosphorus Magnesium Total Bilirubin AST Alkaline Phosphatase Total Creatine Kinase C-Reactive Protein Total Protein Albumin TSH Free T4 Urine WBC (Auto) Crossmatch 12/22/18 12/22/18 12/22/18 06:34 11:39 17:29 WBC RBC Hgb Hct MCV MCH RDW Plt Count Lymph % (Auto) [place] % (Auto) Lymph # Seg Neutrophils % Seg Neuts % (Manual) Lymphocytes % (Manual) Monocytes % (Manual) Nucleated RBC % Seg Neutrophils # Seg Neutrophils # Man Lymphocytes # (Manual) Monocytes # (Manual) PT INR POC ABG pH POC ABG pCO2 POC ABG pO2 Sodium Potassium Chloride Carbon Dioxide BUN Creatinine Glucose POC Glucose 126 H 176 H 180 H Lactic Acid Calcium Phosphorus Magnesium Total Bilirubin AST Alkaline Phosphatase Total Creatine Kinase C-Reactive Protein Total Protein Albumin TSH Free T4 Urine WBC (Auto) Crossmatch 12/22/18 12/23/18 12/23/18 23:19 05:56 08:50 WBC RBC Hgb Hct MCV MCH RDW Plt Count Lymph % (Auto) [place] % (Auto) Lymph # Seg Neutrophils % Seg Neuts % (Manual) Lymphocytes % (Manual) Monocytes % (Manual) Nucleated RBC % Seg Neutrophils # Seg Neutrophils # Man Lymphocytes # (Manual) Monocytes # (Manual) PT INR POC ABG pH POC ABG pCO2 POC ABG pO2 Sodium 134 L Potassium Chloride Carbon Dioxide BUN 80 H Creatinine 2.4 H Glucose 133 H POC Glucose 135 H 174 H Lactic Acid Calcium 7.0 L Phosphorus Magnesium Total Bilirubin AST Alkaline Phosphatase Total Creatine Kinase C-Reactive Protein Total Protein Albumin TSH Free T4 Urine WBC (Auto) Crossmatch 12/23/18 12/23/18 12/24/18 08:50 11:18 00:18 WBC RBC 3.29 L Hgb 8.5 L Hct 24.9 L MCV 76 L MCH 26 L RDW 24.9 H Plt Count 7 L* Lymph % (Auto) [place] % (Auto) Lymph # Seg Neutrophils % Seg Neuts % (Manual) Lymphocytes % (Manual) Monocytes % (Manual) Nucleated RBC % Seg Neutrophils # Seg Neutrophils # Man Lymphocytes # (Manual) Monocytes # (Manual) PT INR POC ABG pH POC ABG pCO2 POC ABG pO2 Sodium Potassium Chloride Carbon Dioxide BUN Creatinine Glucose POC Glucose 164 H 64 L Lactic Acid Calcium Phosphorus Magnesium Total Bilirubin AST Alkaline Phosphatase Total Creatine Kinase C-Reactive Protein Total Protein Albumin TSH Free T4 Urine WBC (Auto) Crossmatch 12/24/18 12/24/18 12/24/18 00:56 06:00 06:00 WBC RBC Hgb 9.7 L Hct 29.1 L MCV 76 L MCH 25 L RDW 24.9 H Plt Count 30 L D Lymph % (Auto) [place] % (Auto) Lymph # Seg Neutrophils % Seg Neuts % (Manual) 86.0 H Lymphocytes % (Manual) 0 L Monocytes % (Manual) Nucleated RBC % Seg Neutrophils # Seg Neutrophils # Man 9.1 H Lymphocytes # (Manual) 0.0 L Monocytes # (Manual) PT INR POC ABG pH POC ABG pCO2 POC ABG pO2 Sodium 132 L Potassium Chloride Carbon Dioxide BUN 79 H Creatinine 2.4 H Glucose 117 H POC Glucose 162 H Lactic Acid Calcium 7.5 L Phosphorus Magnesium Total Bilirubin AST 48 H Alkaline Phosphatase 252 H Total Creatine Kinase C-Reactive Protein Total Protein 5.5 L Albumin 1.6 L TSH Free T4 Urine WBC (Auto) Crossmatch 12/24/18 12/24/18 12/24/18 06:00 12:03 18:45 WBC RBC Hgb Hct MCV MCH RDW Plt Count Lymph % (Auto) [place] % (Auto) Lymph # Seg Neutrophils % Seg Neuts % (Manual) Lymphocytes % (Manual) Monocytes % (Manual) Nucleated RBC % Seg Neutrophils # Seg Neutrophils # Man Lymphocytes # (Manual) Monocytes # (Manual) PT INR POC ABG pH POC ABG pCO2 POC ABG pO2 Sodium Potassium Chloride Carbon Dioxide BUN Creatinine Glucose POC Glucose 153 H 133 H Lactic Acid Calcium Phosphorus 6.60 H Magnesium 2.40 H Total Bilirubin AST Alkaline Phosphatase Total Creatine Kinase C-Reactive Protein Total Protein Albumin TSH Free T4 Urine WBC (Auto) Crossmatch 12/24/18 12/25/18 12/25/18 23:08 06:36 12:05 WBC RBC Hgb Hct MCV MCH RDW Plt Count Lymph % (Auto) [place] % (Auto) Lymph # Seg Neutrophils % Seg Neuts % (Manual) Lymphocytes % (Manual) Monocytes % (Manual) Nucleated RBC % Seg Neutrophils # Seg Neutrophils # Man Lymphocytes # (Manual) Monocytes # (Manual) PT INR POC ABG pH POC ABG pCO2 POC ABG pO2 Sodium Potassium Chloride Carbon Dioxide BUN Creatinine Glucose POC Glucose 125 H 176 H 161 H Lactic Acid Calcium Phosphorus Magnesium Total Bilirubin AST Alkaline Phosphatase Total Creatine Kinase C-Reactive Protein Total Protein Albumin TSH Free T4 Urine WBC (Auto) Crossmatch 12/25/18 12/26/18 12/26/18 18:33 00:07 05:09 WBC RBC Hgb Hct MCV MCH RDW Plt Count Lymph % (Auto) [place] % (Auto) Lymph # Seg Neutrophils % Seg Neuts % (Manual) Lymphocytes % (Manual) Monocytes % (Manual) Nucleated RBC % Seg Neutrophils # Seg Neutrophils # Man Lymphocytes # (Manual) Monocytes # (Manual) PT INR POC ABG pH POC ABG pCO2 POC ABG pO2 Sodium Potassium Chloride Carbon Dioxide BUN Creatinine Glucose POC Glucose 237 H 178 H 171 H Lactic Acid Calcium Phosphorus Magnesium Total Bilirubin AST Alkaline Phosphatase Total Creatine Kinase C-Reactive Protein Total Protein Albumin TSH Free T4 Urine WBC (Auto) Crossmatch 12/26/18 12/26/18 12/26/18 11:27 17:52 23:39 WBC RBC Hgb Hct MCV MCH RDW Plt Count Lymph % (Auto) [place] % (Auto) Lymph # Seg Neutrophils % Seg Neuts % (Manual) Lymphocytes % (Manual) Monocytes % (Manual) Nucleated RBC % Seg Neutrophils # Seg Neutrophils # Man Lymphocytes # (Manual) Monocytes # (Manual) PT INR POC ABG pH POC ABG pCO2 POC ABG pO2 Sodium Potassium Chloride Carbon Dioxide BUN Creatinine Glucose POC Glucose 205 H 166 H 122 H Lactic Acid Calcium Phosphorus Magnesium Total Bilirubin AST Alkaline Phosphatase Total Creatine Kinase C-Reactive Protein Total Protein Albumin TSH Free T4 Urine WBC (Auto) Crossmatch 12/27/18 12/27/18 12/27/18 06:21 14:29 16:20 WBC RBC 3.01 L Hgb 7.6 L Hct 23.0 L MCV 76 L MCH 25 L RDW 24.4 H Plt Count 28 L Lymph % (Auto) 8.9 L [place] % (Auto) 7.4 H Lymph # 0.6 L Seg Neutrophils % 83.4 H Seg Neuts % (Manual) Lymphocytes % (Manual) Monocytes % (Manual) Nucleated RBC % Seg Neutrophils # Seg Neutrophils # Man Lymphocytes # (Manual) Monocytes # (Manual) PT INR POC ABG pH POC ABG pCO2 POC ABG pO2 Sodium Potassium Chloride Carbon Dioxide BUN Creatinine Glucose POC Glucose 174 H 197 H Lactic Acid Calcium Phosphorus Magnesium Total Bilirubin AST Alkaline Phosphatase Total Creatine Kinase C-Reactive Protein Total Protein Albumin TSH Free T4 Urine WBC (Auto) Crossmatch 12/27/18 12/27/18 12/27/18 16:20 17:42 20:16 WBC RBC Hgb Hct MCV MCH RDW Plt Count Lymph % (Auto) [place] % (Auto) Lymph # Seg Neutrophils % Seg Neuts % (Manual) Lymphocytes % (Manual) Monocytes % (Manual) Nucleated RBC % Seg Neutrophils # Seg Neutrophils # Man Lymphocytes # (Manual) Monocytes # (Manual) PT INR POC ABG pH POC ABG pCO2 POC ABG pO2 Sodium Potassium Chloride Carbon Dioxide 21 L BUN 106 H Creatinine 3.0 H Glucose 184 H POC Glucose 211 H Lactic Acid Calcium 6.8 L Phosphorus Magnesium Total Bilirubin AST Alkaline Phosphatase Total Creatine Kinase C-Reactive Protein Total Protein Albumin TSH Free T4 Urine WBC (Auto) Crossmatch See Detail 12/28/18 12/28/18 12/28/18 00:39 01:03 06:42 WBC RBC Hgb 8.2 L Hct 24.6 L MCV MCH RDW Plt Count Lymph % (Auto) [place] % (Auto) Lymph # Seg Neutrophils % Seg Neuts % (Manual) Lymphocytes % (Manual) Monocytes % (Manual) Nucleated RBC % Seg Neutrophils # Seg Neutrophils # Man Lymphocytes # (Manual) Monocytes # (Manual) PT INR POC ABG pH POC ABG pCO2 POC ABG pO2 Sodium Potassium Chloride Carbon Dioxide BUN Creatinine Glucose POC Glucose 135 H 160 H Lactic Acid Calcium Phosphorus Magnesium Total Bilirubin AST Alkaline Phosphatase Total Creatine Kinase C-Reactive Protein Total Protein Albumin TSH Free T4 Urine WBC (Auto) Crossmatch 12/28/18 12/28/18 12/28/18 07:30 07:30 11:33 WBC RBC 3.43 L Hgb 9.3 L Hct 27.5 L MCV MCH 27 L RDW 24.0 H Plt Count 34 L Lymph % (Auto) [place] % (Auto) Lymph # Seg Neutrophils % 86.0 H Seg Neuts % (Manual) 88.0 H Lymphocytes % (Manual) 6.0 L Monocytes % (Manual) Nucleated RBC % Seg Neutrophils # Seg Neutrophils # Man Lymphocytes # (Manual) 0.4 L Monocytes # (Manual) PT INR POC ABG pH POC ABG pCO2 POC ABG pO2 Sodium Potassium Chloride Carbon Dioxide 20 L BUN 101 H Creatinine 2.8 H Glucose 155 H POC Glucose 171 H Lactic Acid Calcium 6.5 L Phosphorus 7.40 H Magnesium Total Bilirubin AST Alkaline Phosphatase Total Creatine Kinase C-Reactive Protein Total Protein Albumin TSH Free T4 Urine WBC (Auto) Crossmatch 12/28/18 12/28/18 12/29/18 17:16 23:53 05:45 WBC RBC Hgb Hct 29.7 L MCV MCH 27 L RDW 23.8 H Plt Count 32 L Lymph % (Auto) [place] % (Auto) Lymph # Seg Neutrophils % Seg Neuts % (Manual) 94.0 H Lymphocytes % (Manual) 4.0 L Monocytes % (Manual) Nucleated RBC % 1.0 H Seg Neutrophils # Seg Neutrophils # Man Lymphocytes # (Manual) 0.2 L Monocytes # (Manual) PT INR POC ABG pH POC ABG pCO2 POC ABG pO2 Sodium Potassium Chloride Carbon Dioxide BUN Creatinine Glucose POC Glucose 151 H 108 H Lactic Acid Calcium Phosphorus Magnesium Total Bilirubin AST Alkaline Phosphatase Total Creatine Kinase C-Reactive Protein Total Protein Albumin TSH Free T4 Urine WBC (Auto) Crossmatch 12/29/18 12/29/18 12/29/18 05:45 12:40 18:04 WBC RBC Hgb Hct MCV MCH RDW Plt Count Lymph % (Auto) [place] % (Auto) Lymph # Seg Neutrophils % Seg Neuts % (Manual) Lymphocytes % (Manual) Monocytes % (Manual) Nucleated RBC % Seg Neutrophils # Seg Neutrophils # Man Lymphocytes # (Manual) Monocytes # (Manual) PT INR POC ABG pH POC ABG pCO2 POC ABG pO2 Sodium Potassium Chloride Carbon Dioxide 20 L BUN 103 H Creatinine 2.7 H Glucose POC Glucose 108 H 147 H Lactic Acid Calcium 6.6 L Phosphorus 7.20 H Magnesium Total Bilirubin AST 49 H Alkaline Phosphatase 309 H Total Creatine Kinase C-Reactive Protein Total Protein 4.6 L Albumin 1.6 L TSH Free T4 Urine WBC (Auto) Crossmatch 12/29/18 12/30/18 12/30/18 23:47 05:44 11:29 WBC RBC Hgb Hct MCV MCH RDW Plt Count Lymph % (Auto) [place] % (Auto) Lymph # Seg Neutrophils % Seg Neuts % (Manual) Lymphocytes % (Manual) Monocytes % (Manual) Nucleated RBC % Seg Neutrophils # Seg Neutrophils # Man Lymphocytes # (Manual) Monocytes # (Manual) PT INR POC ABG pH POC ABG pCO2 POC ABG pO2 Sodium Potassium Chloride Carbon Dioxide BUN Creatinine Glucose POC Glucose 119 H 129 H 226 H Lactic Acid Calcium Phosphorus Magnesium Total Bilirubin AST Alkaline Phosphatase Total Creatine Kinase C-Reactive Protein Total Protein Albumin TSH Free T4 Urine WBC (Auto) Crossmatch
[2018-12-30 14:12] LABS: Hematocrit 25.1 % (30.3-42.9); Hemoglobin 8.3 gm/dl (10.1-14.3); Mean Corpuscular HGB Conc 33 % (30-34); Mean Corpuscular Volume 81 fl (79-97); Red Blood Count 3.12 M/mm3 (3.65-5.03); Red Cell Distribution Width 24.5 % (13.2-15.2)
[2018-12-30 14:40] LABS: Albumin 1.4 g/dL (3.9-5); Calcium 6.5 mg/dL (8.4-10.2)
--- NOTE | 2018-12-30 14:44 | Event Note ---
Date: 12/30/[address] Robles and case management. Case management had discussion with Opel ([email or web address]) this am and she stated she wanted to proceed with tracheostomy/PEG tube placement. However, she also told case management that when the patient and her had discussions about medical decisions, the patient did want to continue aggressive measures if she was in a vegetative state. The patient is comatose and apneic without full vent support. I recommend neurology reevaluation. If patient is truly in vegetative state, this should be reiterated to the family before considering proceeding with trach/PEG. Dr. Robles to speak with Oprachelle again today. Will regroup with Dr Robles after this to discuss next course of action. If we are to proceed with trach/peg, patient will need platelet transfusion to reach goal of 50K or greater.
[2018-12-30 16:38] LABS: Band Neutrophils # (Manual) 0.6 K/mm3; Basophils % (Manual) 0 % (0.0-1.8); Total Cells Counted 100
[2018-12-30 16:39] LABS: Anisocytosis 2+; Hypochromasia 2+
[2018-12-30 16:40] LABS: Giant Platelets Few; Ovalocytes Few; Platelet Estimate Appears Decreased; Poikilocytosis Few; Target Cells Few
[2018-12-30 16:41] LABS: Spherocytes Few
[2018-12-30 16:50] LABS: Platelet Count 30 K/mm3 (140-440)
[2018-12-31] MEDS: HumaLOG SUB-Q SCH ×5 (00:30→23:49)
--- NOTE | 2018-12-31 00:33 | Cat Scan Report ---
PROCEDURE: CT HEAD/BRAIN WO CON TECHNIQUE: Routine axial imaging was obtained of the brain without IV contrast. HISTORY: ams COMPARISONS: 12/08/2018 FINDINGS: There is a large area of encephalomalacia in the right temporal and right parietal lobes compatible w ith a remote right MCA distribution infarct. There is now markedly diminished attenuation in the left thalamus, much of the brain stem and much of the cerebellum compatible with a subacute to chronic ve rtebrobasilar infarct. Both occipital lobes also show markedly diminished attenuation. There is no ev idence of hemorrhage. There is markedly diminished attenuation of the periventricular white matter co mpatible with chronic ischemic white matter disease changes. There is generalized ventriculomegaly. T he sinuses revealed secretions in the sphenoid sinuses. There is fluid in the mastoid air cells bilat erally compatible with bilateral mastoiditis. 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 Remote right MCA distribution infarct. Diminished attenuation of the periventricular white matter compatible with chronic ischemic white mat ter disease changes. This document is electronically signed by Ravi Corley MD., December 31 2018 12:31:40 AM ET
--- NOTE | 2018-12-31 02:32 | Consultation ---
HISTORY OF PRESENT ILLNESS: An 88-year-old black female initially admitted to [facility] on 12/08/2018. This patient was initially admitted via the Emergency Room on 12/08/2018 with a history of having altered mental state. She was brought by her brother and was having a history of multiple strokes and was apparently found by family unresponsive. Initial CT scan of the head showed a large old right-sided infarct. In the interval, there has been very little change in her condition. She remains poorly responsive, comatose, not moving at all and does not respond to commands. Her eyes are disconjugate on gaze. PHYSICAL EXAMINATION: She does not have limb movements, does not speak, does not open her eyes. She is on ventilatory support without evidence of any recoverable state at this present time. No tremors or asterixis. No seizure activity. The patient is nonresponsive. IMPRESSION: Recurrent stroke, right cerebral hemisphere unresponsive state with disconjugate gaze. I might wonder whether she has had a recurrent brainstem stroke. We would recommend repeating CT scan of the head. JOB# [id number] MAGDA/CHIP
[2018-12-31] MEDS: DUONEB *Not for PRN Use IH SCH ×4 (03:53→19:44)
[2018-12-31 04:20] LABS: Hematocrit 24.9 % (30.3-42.9); Hemoglobin 8.3 gm/dl (10.1-14.3); Mean Corpuscular HGB Conc 33 % (30-34); Mean Corpuscular Volume 81 fl (79-97); Red Blood Count 3.08 M/mm3 (3.65-5.03)
[2018-12-31 04:48] LABS: Albumin 1.1 g/dL (3.9-5); Calcium 6.7 mg/dL (8.4-10.2)
[2018-12-31 04:58] LABS: Platelet Count 14 K/mm3 (140-440)
[2018-12-31 06:07] LABS: Basophils % (Manual) 0 % (0.0-1.8); Target Cells 1+; Total Cells Counted 100
[2018-12-31 06:08] LABS: Anisocytosis 2+; Hypochromasia 2+
[2018-12-31 06:09] LABS: Platelet Estimate Appears Decreased
[2018-12-31] MEDS: LOPRESSOR PO SCH ×2 (08:37→17:25)
[2018-12-31] MEDS: APRESOLINE PO SCH ×3 (08:38→20:43)
--- NOTE | 2018-12-31 09:51 | Progress Note ---
Assessment and Plan Assessment and plan: --Acute respiratory failure; vent dependent Patient may need trach and PEG, surgery following Grand daughter and family decided to proceed with with trach and PEG Neurology reevaluation noted, pulm and surgery following --Acute encephalopathy: Multifactorial, CT head extensive right MCA encephalomalcia, right mastoid opacities. neurology evaluated. 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 --Severe Sepsis due to UTI , right mastoiditis, aspiration PNA Blood cultures negative, right ear Cx negative Completed antibiotics per ID --Septic Shock, hypotension, BP improved,off levophed --Left lower lobe infiltrate, poss pneumonia Received antibiotics --Large Pericardial effusion without tamponade TTE EF>50,Cardiology evaluated, medical management Poor candidate for any procedure --MARYANN on CKD 3 Nephrology following-avoid nephrotoxins no indication for HD now --Acute on chronic anemia has h/o anemia requiring previous blood transfusions could be multifactorial (GI bleed and CKD), Total 4 Units PRBC transfused --Lower GI Bleeding: Hemoglobin today is 8.2 -9.3-10.1-8.3 Monitor H/H, transfuse as needed, followed GI evaluation h/o Coffee ground emesis: Resolved,No plans of endoscopy --Thrombocytopenia Transfused total 5 Units platelets Plt 34-32-30 today, will transfuse as needed --Hypothermia,resolved --Diabetes mellitus type 2, SSI as needed Full code status. Very Poor prognosis, recommend hospice, palliative care The high probability of a clinically significant, sudden or life threatening deterioration of the [respiratory, cardiology, GI, renal, hematology] system(s) required my full and direct attention, intervention and personal management. The aggregate critical care time was [31] minutes. This time is in addition to time spent performing reported procedures but includes the following: [x] Data Review and interpretation [x] Patient assessment and monitoring of vital signs [x] Documentation [x] Medication orders and management History Interval history: Patient seen and examined, medical records reviewed Clinically no change No new events reported by the nursing Remains intubated on vent dependent Pending tracheostomy and PEG placement Vital signs reviewed Hospitalist Physical - Constitutional Vitals: Temp Pulse Resp BP Pulse Ox 98.3 F 72 15 106/46 97 12/31/18 08:00 12/31/18 09:00 12/31/18 09:00 12/31/18 09:00 12/31/18 09:00 General appearance: Present: no acute distress, well-nourished, other (intubated on vent) - EENT Eyes: Present: PERRL, EOM intact ENT: other (tongue protruded) - Neck Neck: Present: supple, normal ROM - Respiratory Respiratory effort: normal Respiratory: bilateral: diminished, rhonchi, negative: rales, wheezing - Cardiovascular Rhythm: regular Heart Sounds: Present: S1 & S2 - Extremities Extremities: no ischemia Extremity abnormal: edema - Abdominal General gastrointestinal: soft, non-tender, non-distended, normal bowel sounds - Integumentary Integumentary: Present: clear, warm - Psychiatric Psychiatric: other (unresponsive on vent) - Neurologic Neurologic: other (unresponsive on vent) Results - Labs CBC & Chem 7: 12/31/18 03:55 12/31/18 03:55 Labs: Laboratory Last Values WBC 4.4 K/mm3 (4.5-11.0) L 12/31/18 03:55 RBC 3.08 M/mm3 (3.65-5.03) L 12/31/18 03:55 Hgb 8.3 gm/dl (10.1-14.3) L 12/31/18 03:55 Hct 24.9 % (30.3-42.9) L 12/31/18 03:55 MCV 81 fl (79-97) 12/31/18 03:55 MCH 27 pg (28-32) L 12/31/18 03:55 MCHC 33 % (30-34) 12/31/18 03:55 RDW 25.0 % (13.2-15.2) H 12/31/18 03:55 Plt Count 14 K/mm3 (140-440) L* 12/31/18 03:55 Lymph % (Auto) 8.9 % (13.4-35.0) L 12/27/18 16:20 [place] % (Auto) 6.1 % (0.0-7.3) 12/28/18 07:30 Eos % (Auto) 0.1 % (0.0-4.3) 12/28/18 07:30 Baso % (Auto) 0.3 % (0.0-1.8) 12/27/18 16:20 Lymph # 0.6 K/mm3 (1.2-5.4) L 12/27/18 16:20 [place] # 0.5 K/mm3 (0.0-0.8) 12/27/18 16:20 Eos # 0.0 K/mm3 (0.0-0.4) 12/27/18 16:20 Baso # 0.0 K/mm3 (0.0-0.1) 12/27/18 16:20 Add Manual Diff Complete 12/31/18 03:55 Total Counted 100 12/31/18 03:55 Seg Neutrophils % 86.0 % (40.0-70.0) H 12/28/18 07:30 Seg Neuts % (Manual) 71.0 % (40.0-70.0) H 12/31/18 03:55 Band Neutrophils % 23.0 % 12/31/18 03:55 Lymphocytes % (Manual) 1.0 % (13.4-35.0) L 12/31/18 03:55 Reactive Lymphs % (Man) 0 % 12/31/18 03:55 Monocytes % (Manual) 4.0 % (0.0-7.3) 12/31/18 03:55 Eosinophils % (Manual) 1.0 % (0.0-4.3) 12/31/18 03:55 Basophils % (Manual) 0 % (0.0-1.8) 12/31/18 03:55 Metamyelocytes % 0 % 12/31/18 03:55 Myelocytes % 0 % 12/31/18 03:55 Promyelocytes % 0 % 12/31/18 03:55 Blast Cells % 0 % 12/31/18 03:55 Nucleated RBC % Not Reportable 12/31/18 03:55 Seg Neutrophils # 5.8 K/mm3 (1.8-7.7) 12/28/18 07:30 Seg Neutrophils # Man 3.1 K/mm3 (1.8-7.7) 12/31/18 03:55 Band Neutrophils # 1.0 K/mm3 12/31/18 03:55 Lymphocytes # (Manual) 0.0 K/mm3 (1.2-5.4) L 12/31/18 03:55 Abs React Lymphs (Man) 0.0 K/mm3 12/31/18 03:55 Monocytes # (Manual) 0.2 K/mm3 (0.0-0.8) 12/31/18 03:55 Eosinophils # (Manual) 0.0 K/mm3 (0.0-0.4) 12/31/18 03:55 Basophils # (Manual) 0.0 K/mm3 (0.0-0.1) 12/31/18 03:55 Metamyelocytes # 0.0 K/mm3 12/31/18 03:55 Myelocytes # 0.0 K/mm3 12/31/18 03:55 Promyelocytes # 0.0 K/mm3 12/31/18 03:55 Blast Cells # 0.0 K/mm3 12/31/18 03:55 WBC Morphology Not Reportable 12/31/18 03:55 Hypersegmented Neuts Not Reportable 12/31/18 03:55 Hyposegmented Neuts Not Reportable 12/31/18 03:55 Hypogranular Neuts Not Reportable 12/31/18 03:55 Smudge Cells Not Reportable 12/31/18 03:55 Toxic Granulation Not Reportable 12/31/18 03:55 Toxic Vacuolation Not Reportable 12/31/18 03:55 Dohle Bodies Not Reportable 12/31/18 03:55 Pelger-Huet Anomaly Not Reportable 12/31/18 03:55 Mark Rods Not Reportable 12/31/18 03:55 Platelet Estimate Appears decreased 12/31/18 03:55 Clumped Platelets Not Reportable 12/31/18 03:55 Plt Clumps, EDTA Not Reportable 12/31/18 03:55 Large Platelets Not Reportable 12/31/18 03:55 Giant Platelets Not Reportable 12/31/18 03:55 Platelet Satelliting Not Reportable 12/31/18 03:55 Plt Morphology Comment Not Reportable 12/31/18 03:55 RBC Morphology Not Reportable 12/31/18 03:55 Dimorphic RBCs Not Reportable 12/31/18 03:55 Polychromasia Not Reportable 12/31/18 03:55 Hypochromasia 2+ 12/31/18 03:55 Poikilocytosis Not Reportable 12/31/18 03:55 Anisocytosis 2+ 12/31/18 03:55 Microcytosis Not Reportable 12/31/18 03:55 Macrocytosis Not Reportable 12/31/18 03:55 Spherocytes Not Reportable 12/31/18 03:55 Pappenheimer Bodies Not Reportable 12/31/18 03:55 Sickle Cells Not Reportable 12/31/18 03:55 Target Cells 1+ 12/31/18 03:55 Tear Drop Cells Not Reportable 12/31/18 03:55 Ovalocytes Not Reportable 12/31/18 03:55 Helmet Cells Not Reportable 12/31/18 03:55 Estrada-Neibert Bodies Not Reportable 12/31/18 03:55 [place] Rings Not Reportable 12/31/18 03:55 [place] Cells Not Reportable 12/31/18 03:55 Bite Cells Not Reportable 12/31/18 03:55 Crenated Cell Not Reportable 12/31/18 03:55 Elliptocytes Not Reportable 12/31/18 03:55 Acanthocytes (Spur) Not Reportable 12/31/18 03:55 Rouleaux Not Reportable 12/31/18 03:55 Hemoglobin C Crystals Not Reportable 12/31/18 03:55 Schistocytes Not Reportable 12/31/18 03:55 Malaria parasites Not Reportable 12/31/18 03:55 Stef Bodies Not Reportable 12/31/18 03:55 Hem Pathologist Commnt No 12/31/18 03:55 PT 20.2 Sec. (12.2-14.9) H 12/12/18 08:00 INR 1.61 (0.87-1.13) H 12/12/18 08:00 APTT 30.9 Sec. (24.2-36.6) 12/10/18 10:40 POC ABG pH 7.325 (7.35-7.45) L 12/15/18 03:37 POC ABG pCO2 28.6 (35-45) L 12/15/18 03:37 POC ABG pO2 105 (80-105) 12/15/18 03:37 POC ABG HCO3 14.9 12/15/18 03:37 POC ABG Total CO2 16 12/15/18 03:37 POC ABG O2 Sat 98 12/15/18 03:37 POC ABG Base Excess -11 12/15/18 03:37 FiO2 25 % 12/15/18 03:37 Sodium 141 mmol/L (137-145) 12/31/18 03:55 Potassium 3.3 mmol/L (3.6-5.0) L 12/31/18 03:55 Chloride 109.3 mmol/L (98-107) H 12/31/18 03:55 Carbon Dioxide 20 mmol/L (22-30) L 12/31/18 03:55 Anion Gap 15 mmol/L 12/31/18 03:55 BUN 101 mg/dL (7-17) H 12/31/18 03:55 Creatinine 2.5 mg/dL (0.7-1.2) H 12/31/18 03:55 Estimated GFR 22 ml/min 12/31/18 03:55 BUN/Creatinine Ratio 40 % 12/31/18 03:55 Glucose 126 mg/dL (65-100) H 12/31/18 03:55 POC Glucose 117 (70-105) H 12/31/18 05:13 Hemoglobin A1c 4.9 % (4-6) 12/10/18 04:38 Lactic Acid 3.00 mmol/L (0.7-2.0) H* 12/08/18 15:21 Calcium 6.7 mg/dL (8.4-10.2) L 12/31/18 03:55 Phosphorus 7.10 mg/dL (2.5-4.5) H 12/31/18 03:55 Magnesium 2.30 mg/dL (1.7-2.3) 12/31/18 03:55 Total Bilirubin 0.40 mg/dL (0.1-1.2) 12/31/18 03:55 AST 42 units/L (5-40) H 12/31/18 03:55 ALT 13 units/L (7-56) 12/31/18 03:55 Alkaline Phosphatase 298 units/L (35-129) H 12/31/18 03:55 Total Creatine Kinase 258 units/L (30-135) H 12/08/18 13:40 C-Reactive Protein 19.60 mg/dL (0.00-1.30) H 12/09/18 18:18 Total Protein 4.1 g/dL (6.3-8.2) L 12/31/18 03:55 Albumin 1.1 g/dL (3.9-5) L 12/31/18 03:55 Albumin/Globulin Ratio 0.4 % 12/31/18 03:55 TSH 0.268 mlU/mL (0.270-4.200) L 12/09/18 15:54 Free T4 0.58 ng/dL (0.76-1.46) L 12/09/18 15:54 Urine Color Yolie (Yellow) 12/08/18 13:40 Urine Turbidity Cloudy (Clear) 12/08/18 13:40 Urine pH 7.0 (5.0-7.0) 12/08/18 13:40 Ur Specific [place] 1.015 (1.003-1.030) 12/08/18 13:40 Urine Protein 100 mg/dl mg/dL (Negative) 12/08/18 13:40 Urine Glucose (UA) Neg mg/dL (Negative) 12/08/18 13:40 Urine Ketones Neg mg/dL (Negative) 12/08/18 13:40 Urine Blood Sm (Negative) 12/08/18 13:40 Urine Nitrite Neg (Negative) 12/08/18 13:40 Urine Bilirubin Neg (Negative) 12/08/18 13:40 Urine Urobilinogen 2.0 mg/dL (<2.0) 12/08/18 13:40 Ur Leukocyte Esterase Mod (Negative) 12/08/18 13:40 Urine WBC (Auto) 157.0 /HPF (0.0-6.0) H 12/08/18 13:40 Urine RBC (Auto) 8.0 /HPF (0.0-6.0) 12/08/18 13:40 U Epithel Cells (Auto) 1.0 /HPF (0-13.0) 12/08/18 13:40 Urine Bacteria (Auto) 4+ /HPF (Negative) 12/08/18 13:40 Urine Mucus 2+ /HPF 12/08/18 13:40 Random Vancomycin 15.9 ug/mL (0-40.0) 12/18/18 04:08 JEFFREY Screen Negative (Negative) 12/09/18 15:54 Blood Type B POSITIVE 12/27/18 20:16 Antibody Screen Negative 12/27/18 20:16 Crossmatch See Detail 12/27/18 20:16 Active Medications - Current Medications Current Medications: Generic Name Dose Route Start Last Admin Trade Name Freq PRN Reason Stop Dose Admin Acetaminophen 650 mg 12/09/18 01:00 12/28/18 00:24 Tylenol [place] 650 mg Q4H PRN Administration Pain MILD(1-3)/Fever >100.5/TURNER Albuterol 2.5 mg 12/09/18 00:31 Proventil IH Q4HRT PRN Shortness Of Breath Albuterol/Ipratropium 1 ampul 12/09/18 02:00 12/31/18 08:51 Duoneb *Not For Prn Use* IH 1 ampul Q6HRT KOLE Administration Amlodipine Besylate 10 mg 12/28/18 10:00 12/30/18 09:54 Norvasc PO 10 mg DAILY KOLE Administration Lipase/Protease/Amylase 1 each 12/09/18 04:[address] 10,500 Unit FEEDTUBE PRN PRN For Clogged Feeding Tube Atorvastatin Calcium 20 mg 12/28/18 22:00 12/30/18 21:33 Lipitor PO 20 mg QHS KOLE Administration Dextrose 50 ml 12/24/18 00:42 12/24/18 00:30 D50w (25gm) Syringe IV 50 ml PRN PRN Administration Hypoglycemia Hydralazine HCl 50 mg 12/28/18 08:00 12/31/18 08:38 Apresoline PO 50 mg TID KOLE Administration Hydrophilic Ointment 1 applic 12/14/18 13:00 Vaseline Lip Therapy TP DIRECT PRN Dry tongue Norepinephrine 4 mg in 250 mls @ 7.5 mls/hr 12/18/18 18:00 12/19/18 18:00 Levophed Drip 4 Mg/Ns 250 Ml IV 0 mcg/min TITR KOLE 0 mls/hr Titration Protocol 2 MCG/MIN Insulin Human Lispro 0 unit 12/11/18 12:00 12/31/18 06:04 Humalog SUB-Q Not Given Q6HR [facility] Protocol Lansoprazole 30 mg 12/12/18 10:00 12/30/18 21:33 Prevacid Solutab FEEDTUBE 30 mg BID KOLE Administration Metoprolol Tartrate 25 mg 12/27/18 23:45 12/31/18 08:37 Lopressor PO 25 mg BID@0800,1700 KOLE Administration Multi-Ingred Cream/Lotion/Oil/Oint 1 applic 12/08/18 13:31 Artificial Tears Ophth Oint OU Q4HR PRN Dry Eye(s) Ondansetron HCl 4 mg 12/09/18 00:31 Zofran IV Q8H PRN Nausea And Vomiting Promethazine HCl/Codeine 5 ml 12/27/18 23:49 Phenergan/Codeine 6.25-10 Mg/5ml PO Q6H PRN cough Simple Syrup 15 ml 12/09/18 04:05 Simple Syrup FEEDTUBE PRN PRN Hypoglycemia Simple Syrup 30 ml 12/09/18 04:05 Simple Syrup FEEDTUBE PRN PRN Hypoglycemia Sodium Bicarbonate 325 mg 12/09/18 04:05 Sodium Bicarbonate FEEDTUBE PRN PRN For Clogged Feeding Tube Sodium Chloride 10 ml 12/09/18 10:00 12/30/18 21:34 Sodium Chloride Flush Syringe 10 Ml IV 10 ml BID KOLE Administration Sodium Chloride 10 ml 12/09/18 00:31 12/17/18 10:47 Sodium Chloride Flush Syringe 10 Ml IV 10 ml PRN PRN Administration LINE FLUSH Nutrition/Malnutrition Assess - Dietary Evaluation Nutrition/Malnutrition Findings: Nutrition Notes Start: 12/09/18 12:11 Freq: Status: Active Protocol: Document 12/31/18 09:19 CP (Rec: 12/31/18 09:24 CP [id number]) Co-Sign 12/31/18 09:19 LP Nutrition Notes Initial or Follow up Reassessment Other Pertinent Diagnosis Acute encephalopathy, Pericardial effusion Current Diet TF - Glucerna 1.2 at 50ml/hr Labs/Tests K 3.3 BUN 101 Cr 2.5 BG 126 PO4 7.1 Pro 4.1 Pertinent Medications reviewed Height 5 ft 1 in Weight 76.4 kg [place] Body Weight (kg) 47.72 BMI 31.8 Subjective/Other Information Per chart, family wanting to proceed with trach/PEG placement. Pt is comatose. Burn Absent Trauma Absent #1 Nutrition Diagnosis Inadequate oral intake Diagnosis Progress(for reassessment Continues documentation) Is patient on ventilator? No Is Patient Ambulatory and/or Out of Bed No REE-([facility]-confined to bed) [phone] Calculation Used for Recommendations [facility] Additional Notes Pro needs 2g/kg IBW: 95g/day Fluid needs 1ml/kcal Nutrition Intervention Nutrition Support: Resume Glucerna 1.2 at 50ml/hr Flush with 100ml q4h Kcal 1,440 Protein (gm) 72 Fluid (mL) 966 Follow-Up By: 01/02/19 Additional Comments F/U: Trach/PEG decision/ platelet transfusion
--- NOTE | 2018-12-31 10:14 | Progress Note ---
Assessment and Plan - Patient Problems (1) Acute kidney failure with tubular necrosis Current Visit: Yes Status: Acute Plan to address problem: renal function is unchanged. Overall prognosis is poor, poor candidate for renal replacement therapy. Avoid nephrotoxins. discussed with granddaughter at bedside, who states family wishes to go for PEG/Trach. (2) Acute post-hemorrhagic anemia Current Visit: Yes Status: Acute Plan to address problem: H/H is stable at this time. Continue to monitor, transfuse prn to maintain HgB>7.0 (3) Respiratory failure Current Visit: Yes Status: Acute Plan to address problem: Continues on ventilatory support, and further management per ICU/Pulmonary team. (4) Pericardial effusion without cardiac tamponade Current Visit: Yes Status: Acute Plan to address problem: s/p ECHO with findings not consistent with cardiac tamponade. Will continue to monitor, further recs per cardiology. (5) Encephalopathy Current Visit: Yes Status: Acute Plan to address problem: s/p EEG . Results reviewed. Further management per primary team. Patient remains comatose at this time Subjective Date of service: 12/31/18 Principal diagnosis: Rectal Bleed Interval history: Pt remains intubated, unresponsive. Objective - Vital Signs Vital signs: Vital Signs - 12hr 12/30/18 12/30/18 12/30/18 22:55 23:00 23:13 Temperature 97.8 F Pulse Rate 60 60 Pulse Rate [ Anterior Bilateral Throughout] Pulse Rate [ Apical] Pulse Rate [ From Monitor] Pulse Rate [ Throughout] Respiratory 18 18 Rate Respiratory Rate [Anterior Bilateral Throughout] Respiratory Rate [ Throughout] Blood Pressure 111/37 111/37 O2 Sat by Pulse 100 100 Oximetry 12/31/18 12/31/18 12/31/18 00:00 00:19 01:01 Temperature Pulse Rate 60 69 63 Pulse Rate [ Anterior Bilateral Throughout] Pulse Rate [ Apical] Pulse Rate [ 73 From Monitor] Pulse Rate [ Throughout] Respiratory 18 18 18 Rate Respiratory Rate [Anterior Bilateral Throughout] Respiratory Rate [ Throughout] Blood Pressure 123/39 151/70 120/27 O2 Sat by Pulse 100 100 100 Oximetry 12/31/18 12/31/18 12/31/18 02:00 03:01 03:30 Temperature 97.2 F L Pulse Rate 61 61 Pulse Rate [ 60 Anterior Bilateral Throughout] Pulse Rate [ Apical] Pulse Rate [ From Monitor] Pulse Rate [ 60 Throughout] Respiratory 18 18 Rate Respiratory 18 Rate [Anterior Bilateral Throughout] Respiratory 18 Rate [ Throughout] Blood Pressure 110/27 112/22 O2 Sat by Pulse 100 100 Oximetry 12/31/18 12/31/18 12/31/18 03:50 04:00 04:01 Temperature Pulse Rate 61 60 Pulse Rate [ Anterior Bilateral Throughout] Pulse Rate [ Apical] Pulse Rate [ 63 From Monitor] Pulse Rate [ Throughout] Respiratory 18 18 Rate Respiratory Rate [Anterior Bilateral Throughout] Respiratory Rate [ Throughout] Blood Pressure 105/26 103/33 O2 Sat by Pulse 100 100 100 Oximetry 12/31/18 12/31/18 12/31/18 05:01 06:01 07:01 Temperature Pulse Rate 64 64 67 Pulse Rate [ Anterior Bilateral Throughout] Pulse Rate [ Apical] Pulse Rate [ From Monitor] Pulse Rate [ Throughout] Respiratory 18 18 18 Rate Respiratory Rate [Anterior Bilateral Throughout] Respiratory Rate [ Throughout] Blood Pressure 120/36 120/37 119/37 O2 Sat by Pulse 100 100 100 Oximetry 12/31/18 12/31/18 12/31/18 08:00 08:34 08:37 Temperature 98.3 F Pulse Rate 66 65 70 Pulse Rate [ Anterior Bilateral Throughout] Pulse Rate [ 73 Apical] Pulse Rate [ 73 From Monitor] Pulse Rate [ Throughout] Respiratory 14 Rate Respiratory Rate [Anterior Bilateral Throughout] Respiratory Rate [ Throughout] Blood Pressure 100/42 109/38 109/38 O2 Sat by Pulse 100 100 Oximetry 12/31/18 12/31/18 12/31/18 08:38 08:51 09:00 Temperature Pulse Rate 76 72 Pulse Rate [ 71 Anterior Bilateral Throughout] Pulse Rate [ Apical] Pulse Rate [ From Monitor] Pulse Rate [ 69 Throughout] Respiratory 15 Rate Respiratory 18 Rate [Anterior Bilateral Throughout] Respiratory 28 H Rate [ Throughout] Blood Pressure 109/38 106/46 O2 Sat by Pulse 97 Oximetry - General Appearance General appearance: chronically ill, intubated, comatose EENT: ATNC, mucous membranes moist Neck: no JVD Respiratory: Present: Decreased Breath Sounds Cardiology: regular, S1S2 Gastrointestinal: normoactive bowel sounds Integumentary: no rash, other (+ edema b/l LE ) Neurologic: other (intubated ) - Lab 12/31/18 03:55 12/31/18 03:55 Most recent lab results Calcium 6.7 mg/dL (8.4-10.2) L 12/31/18 03:55 Phosphorus 7.10 mg/dL (2.5-4.5) H 12/31/18 03:55 Magnesium 2.30 mg/dL (1.7-2.3) 12/31/18 03:55 Medications & Allergies - Medications Allergies/Adverse Reactions: Allergies Penicillins Allergy (Verified 12/08/18 13:13) Hives Home Medications: Home Medications Medication Instructions Recorded Confirmed Last Taken Type ALBUTEROL Inhaler (OR & NICU) 2 puff IH QID PRN #1 inhalation 12/21/16 12/08/18 Unknown Rx [Proair] Albuterol Sulfate [Albuterol 0.63% 0.63 mg IH TID PRN #90 ml 12/21/16 12/08/18 Unknown Rx NEBS] Amlodipine Besylate [Norvasc] 10 mg PO DAILY #90 tablet 12/21/16 12/08/18 Unknown Rx AtorvaSTATin [Lipitor] 20 mg PO QHS #90 tablet 12/21/16 12/08/18 Unknown Rx Hydralazine HCl [Apresoline TAB] 50 mg PO TID #90 tablet 12/21/16 12/08/18 Unknown Rx Metoprolol [Lopressor TAB] 25 mg PO BID #90 tablet 12/21/16 12/08/18 Unknown Rx Promethazine /Codeine 5 ml PO Q6H PRN #100 ml 12/21/16 12/08/18 Unknown Rx [Phenergan/Codeine 6.25-10 mg/5 ml] Active Medications: Generic Name Dose Route Start Last Admin Trade Name Moq PRN Reason Stop Dose Admin Acetaminophen 650 mg 12/09/18 01:00 12/28/18 00:24 Tylenol [place] 650 mg Q4H PRN Administration Pain MILD(1-3)/Fever >100.5/TURNER Albuterol 2.5 mg 12/09/18 00:31 Proventil IH Q4HRT PRN Shortness Of Breath Albuterol/Ipratropium 1 ampul 12/09/18 02:00 12/31/18 08:51 Duoneb *Not For Prn Use* IH 1 ampul Q6HRT KOLE Administration Amlodipine Besylate 10 mg 12/28/18 10:00 12/30/18 09:54 Norvasc PO 10 mg DAILY KOLE Administration Lipase/Protease/Amylase 1 each 12/09/18 04:[address] 10,500 Unit FEEDTUBE PRN PRN For Clogged Feeding Tube Atorvastatin Calcium 20 mg 12/28/18 22:00 12/30/18 21:33 Lipitor PO 20 mg QHS KOLE Administration Dextrose 50 ml 12/24/18 00:42 12/24/18 00:30 D50w (25gm) Syringe IV 50 ml PRN PRN Administration Hypoglycemia Hydralazine HCl 50 mg 12/28/18 08:00 12/31/18 08:38 Apresoline PO 50 mg TID KOLE Administration Hydrophilic Ointment 1 applic 12/14/18 13:00 Vaseline Lip Therapy TP DIRECT PRN Dry tongue Norepinephrine 4 mg in 250 mls @ 7.5 mls/hr 12/18/18 18:00 12/19/18 18:00 Levophed Drip 4 Mg/Ns 250 Ml IV 0 mcg/min TITR KOLE 0 mls/hr Titration Protocol 2 MCG/MIN Insulin Human Lispro 0 unit 12/11/18 12:00 12/31/18 06:04 Humalog SUB-Q Not Given Q6HR [facility] Protocol Lansoprazole 30 mg 12/12/18 10:00 12/30/18 21:33 Prevacid Solutab FEEDTUBE 30 mg BID KOLE Administration Metoprolol Tartrate 25 mg 12/27/18 23:45 12/31/18 08:37 Lopressor PO 25 mg BID@0800,1700 KOLE Administration Multi-Ingred Cream/Lotion/Oil/Oint 1 applic 12/08/18 13:31 Artificial Tears Ophth Oint OU Q4HR PRN Dry Eye(s) Ondansetron HCl 4 mg 12/09/18 00:31 Zofran IV Q8H PRN Nausea And Vomiting Promethazine HCl/Codeine 5 ml 12/27/18 23:49 Phenergan/Codeine 6.25-10 Mg/5ml PO Q6H PRN cough Simple Syrup 15 ml 12/09/18 04:05 Simple Syrup FEEDTUBE PRN PRN Hypoglycemia Simple Syrup 30 ml 12/09/18 04:05 Simple Syrup FEEDTUBE PRN PRN Hypoglycemia Sodium Bicarbonate 325 mg 12/09/18 04:05 Sodium Bicarbonate FEEDTUBE PRN PRN For Clogged Feeding Tube Sodium Chloride 10 ml 12/09/18 10:00 12/30/18 21:34 Sodium Chloride Flush Syringe 10 Ml IV 10 ml BID KOLE Administration Sodium Chloride 10 ml 12/09/18 00:31 12/17/18 10:47 Sodium Chloride Flush Syringe 10 Ml IV 10 ml PRN PRN Administration LINE FLUSH
[2018-12-31] MEDS: SODIUM CHLORIDE FLUSH SYRINGE 10 ML IV SCH ×2 (10:49→22:25)
[2018-12-31] MEDS: NORVASC PO SCH (10:49)
[2018-12-31] MEDS: PREVACID SOLUTAB FEEDTUBE SCH ×2 (10:49→22:25)
--- NOTE | 2018-12-31 12:25 | Progress Note ---
Assessment and Plan 88 y/o female with acute respiratory failure, altered mental state, presumptive acute renal failure and hypotension with thrombocytopenia and dirty urine analysis. 1. Granddaughter has now agreed to trach and peg. Will alert surgery so they can schedule flory. Spoke with surgery this am and secondary to staffing, will not be able to perform procedure until next week. 2. monitor platetelets. hold on transfusion until we know when surgery will take place 3. Attempt PSV but place back on rate once apnea occurs, continues to have apneic spells. 4. Follow any new renal recs, not a candidate for HD 5. Surgery had suggested that Dr. Agosto, re-evaluate the patient but she is not the neurologist juvenile detention officer for this week. CCT 31 minutes. Subjective Date of service: 12/31/18 Principal diagnosis: Rectal Bleed Interval history: No acute events. Clinically unchanged. Granddaughter was present earlier at bedside. They wish to proceed with trach and peg. Objective Vital Signs - 12hr 12/31/18 12/31/18 12/31/18 01:01 02:00 03:01 Temperature Pulse Rate 63 61 61 Pulse Rate [ 60 Anterior Bilateral Throughout] Pulse Rate [ Apical] Pulse Rate [ From Monitor] Pulse Rate [ 60 Throughout] Respiratory 18 18 18 Rate Respiratory 18 Rate [Anterior Bilateral Throughout] Respiratory 18 Rate [ Throughout] Blood Pressure 120/27 110/27 112/22 O2 Sat by Pulse 100 100 100 Oximetry 12/31/18 12/31/18 12/31/18 03:30 03:50 04:00 Temperature 97.2 F L Pulse Rate 61 Pulse Rate [ Anterior Bilateral Throughout] Pulse Rate [ Apical] Pulse Rate [ 63 From Monitor] Pulse Rate [ Throughout] Respiratory 18 Rate Respiratory Rate [Anterior Bilateral Throughout] Respiratory Rate [ Throughout] Blood Pressure 105/26 O2 Sat by Pulse 100 100 Oximetry 12/31/18 12/31/18 12/31/18 04:01 05:01 06:01 Temperature Pulse Rate 60 64 64 Pulse Rate [ Anterior Bilateral Throughout] Pulse Rate [ Apical] Pulse Rate [ From Monitor] Pulse Rate [ Throughout] Respiratory 18 18 18 Rate Respiratory Rate [Anterior Bilateral Throughout] Respiratory Rate [ Throughout] Blood Pressure 103/33 120/36 120/37 O2 Sat by Pulse 100 100 100 Oximetry 12/31/18 12/31/18 12/31/18 07:01 08:00 08:34 Temperature 98.3 F Pulse Rate 67 66 65 Pulse Rate [ Anterior Bilateral Throughout] Pulse Rate [ 73 Apical] Pulse Rate [ 73 From Monitor] Pulse Rate [ Throughout] Respiratory 18 14 Rate Respiratory Rate [Anterior Bilateral Throughout] Respiratory Rate [ Throughout] Blood Pressure 119/37 100/42 109/38 O2 Sat by Pulse 100 100 100 Oximetry 12/31/18 12/31/18 12/31/18 08:37 08:38 08:51 Temperature Pulse Rate 70 76 Pulse Rate [ 71 Anterior Bilateral Throughout] Pulse Rate [ Apical] Pulse Rate [ From Monitor] Pulse Rate [ 69 Throughout] Respiratory Rate Respiratory 18 Rate [Anterior Bilateral Throughout] Respiratory 28 H Rate [ Throughout] Blood Pressure 109/38 109/38 O2 Sat by Pulse Oximetry 12/31/18 12/31/18 12/31/18 09:00 10:00 10:49 Temperature Pulse Rate 72 64 60 Pulse Rate [ Anterior Bilateral Throughout] Pulse Rate [ Apical] Pulse Rate [ From Monitor] Pulse Rate [ Throughout] Respiratory 15 18 Rate Respiratory Rate [Anterior Bilateral Throughout] Respiratory Rate [ Throughout] Blood Pressure 106/46 101/30 102/38 O2 Sat by Pulse 97 100 Oximetry Constitutional: no acute distress, comatose, other (on vent cmv) Eyes: non-icteric ENT: oropharynx moist, other (ETT in position, large/edematous tongue) Neck: supple Effort: normal Ascultation: Bilateral: clear, diminished breath sounds, other (coarse BS bilaterally) Cardiovascular: regular rate and rhythm, other (pacemaker rhythm) Gastrointestinal: normoactive bowel sounds, non-distended Integumentary: normal Extremities: no cyanosis, no edema, pink and warm Neurologic: pupils equal and round, other (comatose, flaccid extremities, does not track or follow commands, + Cough, Apnea on PSV) Psychiatric: other (unable to assess) CBC and BMP: 12/31/18 03:55 12/31/18 03:55 ABG, PT/INR, D-dimer: ABG POC ABG pH 7.325 (7.35-7.45) L 12/15/18 03:37 POC ABG pCO2 28.6 (35-45) L 12/15/18 03:37 POC ABG pO2 105 (80-105) 12/15/18 03:37 POC ABG HCO3 14.9 12/15/18 03:37 POC ABG Total CO2 16 12/15/18 03:37 POC ABG O2 Sat 98 12/15/18 03:37 PT/INR, D-dimer PT 20.2 Sec. (12.2-14.9) H 12/12/18 08:00 INR 1.61 (0.87-1.13) H 12/12/18 08:00 Abnormal lab findings: Abnormal Labs 12/08/18 12/08/18 12/08/18 12:58 13:40 13:40 WBC RBC Hgb Hct MCV MCH RDW Plt Count Lymph % (Auto) [place] % (Auto) Lymph # Seg Neutrophils % Seg Neuts % (Manual) Lymphocytes % (Manual) Monocytes % (Manual) Nucleated RBC % Seg Neutrophils # Seg Neutrophils # Man Lymphocytes # (Manual) Monocytes # (Manual) PT INR POC ABG pH POC ABG pCO2 POC ABG pO2 Sodium Potassium Chloride Carbon Dioxide BUN Creatinine Glucose POC Glucose 143 H Lactic Acid Calcium Phosphorus Magnesium Total Bilirubin AST Alkaline Phosphatase Total Creatine Kinase C-Reactive Protein Total Protein Albumin TSH Free T4 Urine WBC (Auto) 157.0 H Crossmatch See Detail 12/08/18 12/08/18 12/08/18 13:40 13:40 13:40 WBC RBC 3.06 L Hgb 6.8 L Hct 21.1 L MCV 69 L MCH 22 L RDW 16.2 H Plt Count 56 L Lymph % (Auto) [place] % (Auto) Lymph # Seg Neutrophils % Seg Neuts % (Manual) Lymphocytes % (Manual) 2.0 L Monocytes % (Manual) Nucleated RBC % Seg Neutrophils # Seg Neutrophils # Man Lymphocytes # (Manual) 0.2 L Monocytes # (Manual) PT INR POC ABG pH POC ABG pCO2 POC ABG pO2 Sodium Potassium 3.2 L Chloride Carbon Dioxide 18 L BUN 64 H Creatinine 1.5 H Glucose 145 H POC Glucose Lactic Acid 4.00 H* Calcium 7.7 L Phosphorus Magnesium Total Bilirubin AST Alkaline Phosphatase Total Creatine Kinase 258 H C-Reactive Protein Total Protein 4.6 L Albumin 1.8 L TSH Free T4 Urine WBC (Auto) Crossmatch 12/08/18 12/08/18 12/08/18 14:29 15:21 16:06 WBC RBC Hgb Hct MCV MCH RDW Plt Count Lymph % (Auto) [place] % (Auto) Lymph # Seg Neutrophils % Seg Neuts % (Manual) Lymphocytes % (Manual) Monocytes % (Manual) Nucleated RBC % Seg Neutrophils # Seg Neutrophils # Man Lymphocytes # (Manual) Monocytes # (Manual) PT 20.5 H INR 1.64 H POC ABG pH POC ABG pCO2 34.2 L POC ABG pO2 465 H Sodium Potassium Chloride Carbon Dioxide BUN Creatinine Glucose POC Glucose Lactic Acid 3.00 H* Calcium Phosphorus Magnesium Total Bilirubin AST Alkaline Phosphatase Total Creatine Kinase C-Reactive Protein Total Protein Albumin TSH Free T4 Urine WBC (Auto) Crossmatch 12/09/18 12/09/18 12/09/18 02:31 05:36 05:36 WBC 14.5 H RBC Hgb Hct MCV 75 L MCH 25 L RDW 20.4 H Plt Count 68 L Lymph % (Auto) [place] % (Auto) Lymph # Seg Neutrophils % Seg Neuts % (Manual) 81.0 H Lymphocytes % (Manual) 1.0 L Monocytes % (Manual) Nucleated RBC % Seg Neutrophils # Seg Neutrophils # Man 11.7 H Lymphocytes # (Manual) 0.1 L Monocytes # (Manual) PT INR POC ABG pH POC ABG pCO2 POC ABG pO2 Sodium Potassium Chloride 107.6 H Carbon Dioxide 18 L BUN 75 H Creatinine 1.9 H Glucose 136 H POC Glucose 152 H Lactic Acid Calcium 7.9 L Phosphorus Magnesium Total Bilirubin 1.60 H AST 44 H Alkaline Phosphatase Total Creatine Kinase C-Reactive Protein Total Protein 5.2 L Albumin 2.4 L TSH Free T4 Urine WBC (Auto) Crossmatch 12/09/18 12/09/18 12/09/18 05:43 10:47 13:46 WBC RBC Hgb Hct MCV MCH RDW Plt Count Lymph % (Auto) [place] % (Auto) Lymph # Seg Neutrophils % Seg Neuts % (Manual) Lymphocytes % (Manual) Monocytes % (Manual) Nucleated RBC % Seg Neutrophils # Seg Neutrophils # Man Lymphocytes # (Manual) Monocytes # (Manual) PT INR POC ABG pH 7.308 L POC ABG pCO2 POC ABG pO2 183 H Sodium Potassium Chloride Carbon Dioxide BUN Creatinine Glucose POC Glucose 150 H 162 H Lactic Acid Calcium Phosphorus Magnesium Total Bilirubin AST Alkaline Phosphatase Total Creatine Kinase C-Reactive Protein Total Protein Albumin TSH Free T4 Urine WBC (Auto) Crossmatch 12/09/18 12/09/18 12/09/18 15:54 15:54 16:40 WBC RBC Hgb Hct MCV MCH RDW Plt Count Lymph % (Auto) [place] % (Auto) Lymph # Seg Neutrophils % Seg Neuts % (Manual) Lymphocytes % (Manual) Monocytes % (Manual) Nucleated RBC % Seg Neutrophils # Seg Neutrophils # Man Lymphocytes # (Manual) Monocytes # (Manual) PT INR POC ABG pH POC ABG pCO2 POC ABG pO2 Sodium Potassium Chloride Carbon Dioxide BUN Creatinine Glucose POC Glucose 197 H Lactic Acid Calcium Phosphorus Magnesium Total Bilirubin AST Alkaline Phosphatase Total Creatine Kinase C-Reactive Protein Total Protein Albumin TSH 0.268 L Free T4 0.58 L Urine WBC (Auto) Crossmatch 12/09/18 12/09/18 12/09/18 18:18 18:18 21:51 WBC RBC Hgb Hct MCV MCH RDW Plt Count Lymph % (Auto) [place] % (Auto) Lymph # Seg Neutrophils % Seg Neuts % (Manual) Lymphocytes % (Manual) Monocytes % (Manual) Nucleated RBC % Seg Neutrophils # Seg Neutrophils # Man Lymphocytes # (Manual) Monocytes # (Manual) PT INR POC ABG pH POC ABG pCO2 POC ABG pO2 Sodium Potassium Chloride 108.2 H Carbon Dioxide 16 L BUN 89 H Creatinine 2.3 H Glucose 180 H POC Glucose 198 H Lactic Acid Calcium 7.9 L Phosphorus Magnesium Total Bilirubin AST Alkaline Phosphatase Total Creatine Kinase C-Reactive Protein 19.60 H Total Protein Albumin TSH Free T4 Urine WBC (Auto) Crossmatch 12/10/18 12/10/18 12/10/18 01:59 04:14 04:38 WBC 11.5 H RBC Hgb Hct MCV 75 L MCH 25 L RDW 21.1 H Plt Count 81 L Lymph % (Auto) 5.6 L [place] % (Auto) Lymph # 0.6 L Seg Neutrophils % 89.8 H Seg Neuts % (Manual) Lymphocytes % (Manual) Monocytes % (Manual) Nucleated RBC % Seg Neutrophils # 10.3 H Seg Neutrophils # Man Lymphocytes # (Manual) Monocytes # (Manual) PT INR POC ABG pH 7.273 L POC ABG pCO2 32.1 L POC ABG pO2 161 H Sodium Potassium Chloride Carbon Dioxide BUN Creatinine Glucose POC Glucose 219 H Lactic Acid Calcium Phosphorus Magnesium Total Bilirubin AST Alkaline Phosphatase Total Creatine Kinase C-Reactive Protein Total Protein Albumin TSH Free T4 Urine WBC (Auto) Crossmatch 12/10/18 12/10/18 12/10/18 04:38 05:07 07:26 WBC RBC Hgb Hct MCV MCH RDW Plt Count Lymph % (Auto) [place] % (Auto) Lymph # Seg Neutrophils % Seg Neuts % (Manual) Lymphocytes % (Manual) Monocytes % (Manual) Nucleated RBC % Seg Neutrophils # Seg Neutrophils # Man Lymphocytes # (Manual) Monocytes # (Manual) PT INR POC ABG pH POC ABG pCO2 POC ABG pO2 Sodium Potassium Chloride 112.5 H Carbon Dioxide 14 L BUN 94 H Creatinine 2.4 H Glucose 207 H POC Glucose 221 H 212 H Lactic Acid Calcium 7.7 L Phosphorus Magnesium Total Bilirubin AST Alkaline Phosphatase Total Creatine Kinase C-Reactive Protein Total Protein Albumin TSH Free T4 Urine WBC (Auto) Crossmatch 12/10/18 12/10/18 12/10/18 10:40 11:15 14:21 WBC RBC Hgb Hct MCV MCH RDW Plt Count Lymph % (Auto) [place] % (Auto) Lymph # Seg Neutrophils % Seg Neuts % (Manual) Lymphocytes % (Manual) Monocytes % (Manual) Nucleated RBC % Seg Neutrophils # Seg Neutrophils # Man Lymphocytes # (Manual) Monocytes # (Manual) PT 21.4 H INR 1.73 H POC ABG pH 7.214 L POC ABG pCO2 32.8 L POC ABG pO2 Sodium Potassium Chloride Carbon Dioxide BUN Creatinine Glucose POC Glucose 227 H Lactic Acid Calcium Phosphorus Magnesium Total Bilirubin AST Alkaline Phosphatase Total Creatine Kinase C-Reactive Protein Total Protein Albumin TSH Free T4 Urine WBC (Auto) Crossmatch 12/10/18 12/10/18 12/11/18 15:47 22:38 03:36 WBC RBC Hgb Hct MCV MCH RDW Plt Count Lymph % (Auto) [place] % (Auto) Lymph # Seg Neutrophils % Seg Neuts % (Manual) Lymphocytes % (Manual) Monocytes % (Manual) Nucleated RBC % Seg Neutrophils # Seg Neutrophils # Man Lymphocytes # (Manual) Monocytes # (Manual) PT INR POC ABG pH POC ABG pCO2 26.2 L POC ABG pO2 138 H Sodium Potassium Chloride Carbon Dioxide BUN Creatinine Glucose POC Glucose 202 H 259 H Lactic Acid Calcium Phosphorus Magnesium Total Bilirubin AST Alkaline Phosphatase Total Creatine Kinase C-Reactive Protein Total Protein Albumin TSH Free T4 Urine WBC (Auto) Crossmatch 12/11/18 12/11/18 12/11/18 04:12 05:00 06:19 WBC RBC Hgb Hct MCV MCH RDW Plt Count Lymph % (Auto) [place] % (Auto) Lymph # Seg Neutrophils % Seg Neuts % (Manual) Lymphocytes % (Manual) Monocytes % (Manual) Nucleated RBC % Seg Neutrophils # Seg Neutrophils # Man Lymphocytes # (Manual) Monocytes # (Manual) PT 19.5 H INR 1.54 H POC ABG pH POC ABG pCO2 24.6 L POC ABG pO2 119 H Sodium Potassium Chloride Carbon Dioxide BUN Creatinine Glucose POC Glucose 174 H Lactic Acid Calcium Phosphorus Magnesium Total Bilirubin AST Alkaline Phosphatase Total Creatine Kinase C-Reactive Protein Total Protein Albumin TSH Free T4 Urine WBC (Auto) Crossmatch 12/11/18 12/11/18 12/11/18 11:10 11:10 18:10 WBC 14.3 H RBC Hgb Hct MCV 73 L MCH 24 L RDW 21.5 H Plt Count Lymph % (Auto) [place] % (Auto) Lymph # Seg Neutrophils % Seg Neuts % (Manual) Lymphocytes % (Manual) Monocytes % (Manual) Nucleated RBC % Seg Neutrophils # Seg Neutrophils # Man Lymphocytes # (Manual) Monocytes # (Manual) PT INR POC ABG pH POC ABG pCO2 POC ABG pO2 Sodium Potassium Chloride 110.5 H Carbon Dioxide 15 L BUN 101 H Creatinine 2.4 H Glucose 119 H POC Glucose 147 H Lactic Acid Calcium 7.7 L Phosphorus Magnesium Total Bilirubin AST Alkaline Phosphatase Total Creatine Kinase C-Reactive Protein Total Protein Albumin TSH Free T4 Urine WBC (Auto) Crossmatch 12/11/18 12/12/18 12/12/18 23:25 05:37 06:03 WBC RBC Hgb Hct MCV MCH RDW Plt Count Lymph % (Auto) [place] % (Auto) Lymph # Seg Neutrophils % Seg Neuts % (Manual) Lymphocytes % (Manual) Monocytes % (Manual) Nucleated RBC % Seg Neutrophils # Seg Neutrophils # Man Lymphocytes # (Manual) Monocytes # (Manual) PT INR POC ABG pH 7.346 L POC ABG pCO2 28.3 L POC ABG pO2 120 H Sodium Potassium Chloride Carbon Dioxide BUN Creatinine Glucose POC Glucose 143 H 154 H Lactic Acid Calcium Phosphorus Magnesium Total Bilirubin AST Alkaline Phosphatase Total Creatine Kinase C-Reactive Protein Total Protein Albumin TSH Free T4 Urine WBC (Auto) Crossmatch 12/12/18 12/12/18 12/12/18 08:00 08:00 08:00 WBC 16.2 H RBC Hgb Hct MCV 74 L MCH 25 L RDW 21.9 H Plt Count 21 L Lymph % (Auto) [place] % (Auto) Lymph # Seg Neutrophils % Seg Neuts % (Manual) Lymphocytes % (Manual) Monocytes % (Manual) Nucleated RBC % Seg Neutrophils # Seg Neutrophils # Man Lymphocytes # (Manual) Monocytes # (Manual) PT 20.2 H INR 1.61 H POC ABG pH POC ABG pCO2 POC ABG pO2 Sodium Potassium Chloride 107.4 H Carbon Dioxide 16 L BUN 101 H Creatinine 2.3 H Glucose 169 H POC Glucose Lactic Acid Calcium 8.2 L Phosphorus Magnesium Total Bilirubin AST Alkaline Phosphatase Total Creatine Kinase C-Reactive Protein Total Protein Albumin TSH Free T4 Urine WBC (Auto) Crossmatch 12/12/18 12/12/18 12/13/18 12:59 18:01 04:28 WBC 18.6 H RBC Hgb Hct MCV 74 L MCH 24 L RDW 21.8 H Plt Count 34 L Lymph % (Auto) [place] % (Auto) Lymph # Seg Neutrophils % Seg Neuts % (Manual) 97.0 H Lymphocytes % (Manual) 2.0 L Monocytes % (Manual) Nucleated RBC % 1.0 H Seg Neutrophils # Seg Neutrophils # Man 18.0 H Lymphocytes # (Manual) 0.4 L Monocytes # (Manual) PT INR POC ABG pH POC ABG pCO2 POC ABG pO2 Sodium Potassium Chloride Carbon Dioxide BUN Creatinine Glucose POC Glucose 158 H 123 H Lactic Acid Calcium Phosphorus Magnesium Total Bilirubin AST Alkaline Phosphatase Total Creatine Kinase C-Reactive Protein Total Protein Albumin TSH Free T4 Urine WBC (Auto) Crossmatch 12/13/18 12/13/18 12/13/18 04:28 04:45 19:17 WBC RBC Hgb Hct MCV MCH RDW Plt Count Lymph % (Auto) [place] % (Auto) Lymph # Seg Neutrophils % Seg Neuts % (Manual) Lymphocytes % (Manual) Monocytes % (Manual) Nucleated RBC % Seg Neutrophils # Seg Neutrophils # Man Lymphocytes # (Manual) Monocytes # (Manual) PT INR POC ABG pH 7.327 L POC ABG pCO2 31.1 L POC ABG pO2 136 H Sodium Potassium Chloride 112.0 H Carbon Dioxide 17 L BUN 97 H Creatinine 2.2 H Glucose POC Glucose 106 H Lactic Acid Calcium 8.1 L Phosphorus Magnesium Total Bilirubin AST Alkaline Phosphatase Total Creatine Kinase C-Reactive Protein Total Protein Albumin TSH Free T4 Urine WBC (Auto) Crossmatch 12/13/18 12/14/18 12/14/18 23:24 03:35 03:35 WBC 22.0 H RBC Hgb Hct MCV 75 L MCH 24 L RDW 22.2 H Plt Count 44 L Lymph % (Auto) [place] % (Auto) Lymph # Seg Neutrophils % Seg Neuts % (Manual) 96.0 H Lymphocytes % (Manual) 3.0 L Monocytes % (Manual) Nucleated RBC % Seg Neutrophils # Seg Neutrophils # Man 21.1 H Lymphocytes # (Manual) 0.7 L Monocytes # (Manual) PT INR POC ABG pH POC ABG pCO2 POC ABG pO2 Sodium 136 L Potassium Chloride 107.2 H Carbon Dioxide 15 L BUN 87 H Creatinine 1.7 H Glucose 156 H POC Glucose 108 H Lactic Acid Calcium 7.7 L Phosphorus Magnesium Total Bilirubin AST Alkaline Phosphatase Total Creatine Kinase C-Reactive Protein Total Protein Albumin TSH Free T4 Urine WBC (Auto) Crossmatch 12/14/18 12/14/18 12/14/18 04:58 05:37 12:10 WBC RBC Hgb Hct MCV MCH RDW Plt Count Lymph % (Auto) [place] % (Auto) Lymph # Seg Neutrophils % Seg Neuts % (Manual) Lymphocytes % (Manual) Monocytes % (Manual) Nucleated RBC % Seg Neutrophils # Seg Neutrophils # Man Lymphocytes # (Manual) Monocytes # (Manual) PT INR POC ABG pH 7.301 L POC ABG pCO2 32.6 L POC ABG pO2 138 H Sodium Potassium Chloride Carbon Dioxide BUN Creatinine Glucose POC Glucose 178 H 208 H Lactic Acid Calcium Phosphorus Magnesium Total Bilirubin AST Alkaline Phosphatase Total Creatine Kinase C-Reactive Protein Total Protein Albumin TSH Free T4 Urine WBC (Auto) Crossmatch 12/14/18 12/14/18 12/15/18 17:44 23:16 03:37 WBC RBC Hgb Hct MCV MCH RDW Plt Count Lymph % (Auto) [place] % (Auto) Lymph # Seg Neutrophils % Seg Neuts % (Manual) Lymphocytes % (Manual) Monocytes % (Manual) Nucleated RBC % Seg Neutrophils # Seg Neutrophils # Man Lymphocytes # (Manual) Monocytes # (Manual) PT INR POC ABG pH 7.325 L POC ABG pCO2 28.6 L POC ABG pO2 Sodium Potassium Chloride Carbon Dioxide BUN Creatinine Glucose POC Glucose 172 H 123 H Lactic Acid Calcium Phosphorus Magnesium Total Bilirubin AST Alkaline Phosphatase Total Creatine Kinase C-Reactive Protein Total Protein Albumin TSH Free T4 Urine WBC (Auto) Crossmatch 12/15/18 12/15/18 12/15/18 05:30 05:30 05:43 WBC 20.1 H RBC Hgb 9.5 L Hct 29.2 L MCV 74 L MCH 24 L RDW 22.7 H Plt Count 48 L Lymph % (Auto) [place] % (Auto) Lymph # Seg Neutrophils % Seg Neuts % (Manual) 96.0 H Lymphocytes % (Manual) 1.0 L Monocytes % (Manual) Nucleated RBC % Seg Neutrophils # Seg Neutrophils # Man 19.3 H Lymphocytes # (Manual) 0.2 L Monocytes # (Manual) PT INR POC ABG pH POC ABG pCO2 POC ABG pO2 Sodium Potassium Chloride 110.8 H Carbon Dioxide 17 L BUN 83 H Creatinine 1.6 H Glucose 150 H POC Glucose 151 H Lactic Acid Calcium 7.7 L Phosphorus Magnesium Total Bilirubin AST Alkaline Phosphatase Total Creatine Kinase C-Reactive Protein Total Protein Albumin TSH Free T4 Urine WBC (Auto) Crossmatch 12/15/18 12/15/18 12/16/18 12:56 18:21 00:10 WBC RBC Hgb Hct MCV MCH RDW Plt Count Lymph % (Auto) [place] % (Auto) Lymph # Seg Neutrophils % Seg Neuts % (Manual) Lymphocytes % (Manual) Monocytes % (Manual) Nucleated RBC % Seg Neutrophils # Seg Neutrophils # Man Lymphocytes # (Manual) Monocytes # (Manual) PT INR POC ABG pH POC ABG pCO2 POC ABG pO2 Sodium Potassium Chloride Carbon Dioxide BUN Creatinine Glucose POC Glucose 190 H 143 H 174 H Lactic Acid Calcium Phosphorus Magnesium Total Bilirubin AST Alkaline Phosphatase Total Creatine Kinase C-Reactive Protein Total Protein Albumin TSH Free T4 Urine WBC (Auto) Crossmatch 12/16/18 12/16/18 12/16/18 05:24 05:30 05:30 WBC 17.1 H RBC Hgb 9.1 L Hct 28.8 L MCV 76 L MCH 24 L RDW 23.5 H Plt Count 37 L Lymph % (Auto) [place] % (Auto) Lymph # Seg Neutrophils % Seg Neuts % (Manual) Lymphocytes % (Manual) 9.0 L Monocytes % (Manual) 9.0 H Nucleated RBC % Seg Neutrophils # Seg Neutrophils # Man 9.6 H Lymphocytes # (Manual) Monocytes # (Manual) 1.5 H PT INR POC ABG pH POC ABG pCO2 POC ABG pO2 Sodium Potassium Chloride 110.8 H Carbon Dioxide 15 L BUN 81 H Creatinine 1.6 H Glucose 161 H POC Glucose 154 H Lactic Acid Calcium 7.6 L Phosphorus Magnesium Total Bilirubin AST Alkaline Phosphatase Total Creatine Kinase C-Reactive Protein Total Protein Albumin TSH Free T4 Urine WBC (Auto) Crossmatch 12/16/18 12/16/18 12/16/18 12:31 17:42 21:56 WBC RBC Hgb Hct MCV MCH RDW Plt Count Lymph % (Auto) [place] % (Auto) Lymph # Seg Neutrophils % Seg Neuts % (Manual) Lymphocytes % (Manual) Monocytes % (Manual) Nucleated RBC % Seg Neutrophils # Seg Neutrophils # Man Lymphocytes # (Manual) Monocytes # (Manual) PT INR POC ABG pH POC ABG pCO2 POC ABG pO2 Sodium Potassium Chloride Carbon Dioxide BUN Creatinine Glucose POC Glucose 172 H 173 H 118 H Lactic Acid Calcium Phosphorus Magnesium Total Bilirubin AST Alkaline Phosphatase Total Creatine Kinase C-Reactive Protein Total Protein Albumin TSH Free T4 Urine WBC (Auto) Crossmatch 12/16/18 12/17/18 12/17/18 23:38 04:24 04:24 WBC 19.2 H RBC Hgb 9.5 L Hct 29.7 L MCV 76 L MCH 24 L RDW 24.4 H Plt Count 26 L Lymph % (Auto) [place] % (Auto) Lymph # Seg Neutrophils % Seg Neuts % (Manual) Lymphocytes % (Manual) 6.0 L Monocytes % (Manual) Nucleated RBC % Seg Neutrophils # Seg Neutrophils # Man 13.1 H Lymphocytes # (Manual) Monocytes # (Manual) PT INR POC ABG pH POC ABG pCO2 POC ABG pO2 Sodium 134 L Potassium Chloride 110.0 H Carbon Dioxide 14 L BUN 83 H Creatinine 1.6 H Glucose POC Glucose 109 H Lactic Acid Calcium 7.8 L Phosphorus Magnesium Total Bilirubin AST Alkaline Phosphatase Total Creatine Kinase C-Reactive Protein Total Protein Albumin TSH Free T4 Urine WBC (Auto) Crossmatch 12/17/18 12/17/18 12/18/18 06:42 17:49 00:40 WBC RBC Hgb Hct MCV MCH RDW Plt Count Lymph % (Auto) [place] % (Auto) Lymph # Seg Neutrophils % Seg Neuts % (Manual) Lymphocytes % (Manual) Monocytes % (Manual) Nucleated RBC % Seg Neutrophils # Seg Neutrophils # Man Lymphocytes # (Manual) Monocytes # (Manual) PT INR POC ABG pH POC ABG pCO2 POC ABG pO2 Sodium Potassium Chloride 113.1 H Carbon Dioxide 13 L BUN 82 H Creatinine 1.6 H Glucose POC Glucose 66 L 109 H Lactic Acid Calcium 8.0 L Phosphorus Magnesium Total Bilirubin AST Alkaline Phosphatase Total Creatine Kinase C-Reactive Protein Total Protein Albumin TSH Free T4 Urine WBC (Auto) Crossmatch 12/18/18 12/18/18 12/18/18 04:08 04:08 12:45 WBC 26.5 H RBC 3.63 L Hgb 8.7 L Hct 26.8 L MCV 74 L MCH 24 L RDW 23.3 H Plt Count 24 L Lymph % (Auto) [place] % (Auto) Lymph # Seg Neutrophils % Seg Neuts % (Manual) Lymphocytes % (Manual) Monocytes % (Manual) Nucleated RBC % Seg Neutrophils # Seg Neutrophils # Man Lymphocytes # (Manual) Monocytes # (Manual) PT INR POC ABG pH POC ABG pCO2 POC ABG pO2 Sodium Potassium Chloride 114.3 H Carbon Dioxide 16 L BUN 82 H Creatinine 1.7 H Glucose POC Glucose 117 H Lactic Acid Calcium 7.8 L Phosphorus 5.10 H Magnesium Total Bilirubin AST Alkaline Phosphatase Total Creatine Kinase C-Reactive Protein Total Protein Albumin TSH Free T4 Urine WBC (Auto) Crossmatch 12/18/18 12/18/18 12/19/18 17:42 23:39 04:22 WBC 20.4 H RBC 3.01 L Hgb 7.2 L Hct 22.6 L MCV 75 L MCH 24 L RDW 24.5 H Plt Count 52 L D Lymph % (Auto) [place] % (Auto) Lymph # Seg Neutrophils % Seg Neuts % (Manual) Lymphocytes % (Manual) Monocytes % (Manual) Nucleated RBC % Seg Neutrophils # Seg Neutrophils # Man Lymphocytes # (Manual) Monocytes # (Manual) PT INR POC ABG pH POC ABG pCO2 POC ABG pO2 Sodium Potassium Chloride Carbon Dioxide BUN Creatinine Glucose POC Glucose 121 H 184 H Lactic Acid Calcium Phosphorus Magnesium Total Bilirubin AST Alkaline Phosphatase Total Creatine Kinase C-Reactive Protein Total Protein Albumin TSH Free T4 Urine WBC (Auto) Crossmatch 12/19/18 12/19/18 12/19/18 04:22 12:43 18:12 WBC RBC Hgb Hct MCV MCH RDW Plt Count Lymph % (Auto) [place] % (Auto) Lymph # Seg Neutrophils % Seg Neuts % (Manual) Lymphocytes % (Manual) Monocytes % (Manual) Nucleated RBC % Seg Neutrophils # Seg Neutrophils # Man Lymphocytes # (Manual) Monocytes # (Manual) PT INR POC ABG pH POC ABG pCO2 POC ABG pO2 Sodium Potassium Chloride 112.9 H Carbon Dioxide 15 L BUN 76 H Creatinine 1.8 H Glucose 107 H POC Glucose 141 H 227 H Lactic Acid Calcium 7.4 L Phosphorus Magnesium Total Bilirubin AST Alkaline Phosphatase Total Creatine Kinase C-Reactive Protein Total Protein Albumin TSH Free T4 Urine WBC (Auto) Crossmatch 12/19/18 12/19/18 12/20/18 23:55 Unknown 03:07 WBC 15.7 H RBC 2.92 L Hgb 7.2 L 7.1 L Hct 22.2 L 21.6 L MCV 74 L MCH 24 L RDW 24.3 H Plt Count 23 L Lymph % (Auto) [place] % (Auto) Lymph # Seg Neutrophils % Seg Neuts % (Manual) Lymphocytes % (Manual) Monocytes % (Manual) Nucleated RBC % Seg Neutrophils # Seg Neutrophils # Man Lymphocytes # (Manual) Monocytes # (Manual) PT INR POC ABG pH POC ABG pCO2 POC ABG pO2 Sodium Potassium Chloride Carbon Dioxide BUN Creatinine Glucose POC Glucose 174 H Lactic Acid Calcium Phosphorus Magnesium Total Bilirubin AST Alkaline Phosphatase Total Creatine Kinase C-Reactive Protein Total Protein Albumin TSH Free T4 Urine WBC (Auto) Crossmatch 12/20/18 12/20/18 12/20/18 03:07 05:20 11:00 WBC RBC Hgb Hct MCV MCH RDW Plt Count Lymph % (Auto) [place] % (Auto) Lymph # Seg Neutrophils % Seg Neuts % (Manual) Lymphocytes % (Manual) Monocytes % (Manual) Nucleated RBC % Seg Neutrophils # Seg Neutrophils # Man Lymphocytes # (Manual) Monocytes # (Manual) PT INR POC ABG pH POC ABG pCO2 POC ABG pO2 Sodium 136 L Potassium Chloride Carbon Dioxide 20 L BUN 79 H Creatinine 2.1 H Glucose 141 H POC Glucose 210 H Lactic Acid Calcium 7.5 L Phosphorus Magnesium Total Bilirubin AST Alkaline Phosphatase Total Creatine Kinase C-Reactive Protein Total Protein Albumin TSH Free T4 Urine WBC (Auto) Crossmatch See Detail 12/20/18 12/20/18 12/21/18 11:40 17:51 00:33 WBC RBC Hgb Hct MCV MCH RDW Plt Count Lymph % (Auto) [place] % (Auto) Lymph # Seg Neutrophils % Seg Neuts % (Manual) Lymphocytes % (Manual) Monocytes % (Manual) Nucleated RBC % Seg Neutrophils # Seg Neutrophils # Man Lymphocytes # (Manual) Monocytes # (Manual) PT INR POC ABG pH POC ABG pCO2 POC ABG pO2 Sodium Potassium Chloride Carbon Dioxide BUN Creatinine Glucose POC Glucose 183 H 150 H 119 H Lactic Acid Calcium Phosphorus Magnesium Total Bilirubin AST Alkaline Phosphatase Total Creatine Kinase C-Reactive Protein Total Protein Albumin TSH Free T4 Urine WBC (Auto) Crossmatch 12/21/18 12/21/18 12/21/18 05:05 07:19 07:19 WBC 11.9 H RBC 2.83 L Hgb 6.9 L Hct 20.7 L MCV 73 L MCH 24 L RDW 23.9 H Plt Count 11 L* Lymph % (Auto) [place] % (Auto) Lymph # Seg Neutrophils % Seg Neuts % (Manual) Lymphocytes % (Manual) Monocytes % (Manual) Nucleated RBC % Seg Neutrophils # Seg Neutrophils # Man Lymphocytes # (Manual) Monocytes # (Manual) PT INR POC ABG pH POC ABG pCO2 POC ABG pO2 Sodium 135 L Potassium Chloride Carbon Dioxide 21 L BUN 78 H Creatinine 2.3 H Glucose 143 H POC Glucose 165 H Lactic Acid Calcium 7.3 L Phosphorus Magnesium Total Bilirubin AST Alkaline Phosphatase Total Creatine Kinase C-Reactive Protein Total Protein Albumin TSH Free T4 Urine WBC (Auto) Crossmatch 12/21/18 12/21/18 12/21/18 11:55 17:39 18:00 WBC RBC Hgb 7.9 L Hct 23.8 L MCV MCH RDW Plt Count Lymph % (Auto) [place] % (Auto) Lymph # Seg Neutrophils % Seg Neuts % (Manual) Lymphocytes % (Manual) Monocytes % (Manual) Nucleated RBC % Seg Neutrophils # Seg Neutrophils # Man Lymphocytes # (Manual) Monocytes # (Manual) PT INR POC ABG pH POC ABG pCO2 POC ABG pO2 Sodium Potassium Chloride Carbon Dioxide BUN Creatinine Glucose POC Glucose 125 H 108 H Lactic Acid Calcium Phosphorus Magnesium Total Bilirubin AST Alkaline Phosphatase Total Creatine Kinase C-Reactive Protein Total Protein Albumin TSH Free T4 Urine WBC (Auto) Crossmatch 12/21/18 12/22/18 12/22/18 23:55 05:35 05:35 WBC 11.8 H RBC Hgb 9.4 L Hct 28.3 L MCV 76 L MCH 25 L RDW 24.5 H Plt Count 26 L D Lymph % (Auto) [place] % (Auto) Lymph # Seg Neutrophils % Seg Neuts % (Manual) Lymphocytes % (Manual) Monocytes % (Manual) Nucleated RBC % Seg Neutrophils # Seg Neutrophils # Man Lymphocytes # (Manual) Monocytes # (Manual) PT INR POC ABG pH POC ABG pCO2 POC ABG pO2 Sodium 132 L Potassium Chloride Carbon Dioxide 21 L BUN 79 H Creatinine 2.3 H Glucose 131 H POC Glucose 126 H Lactic Acid Calcium 7.4 L Phosphorus Magnesium Total Bilirubin AST Alkaline Phosphatase Total Creatine Kinase C-Reactive Protein Total Protein Albumin TSH Free T4 Urine WBC (Auto) Crossmatch 12/22/18 12/22/18 12/22/18 06:34 11:39 17:29 WBC RBC Hgb Hct MCV MCH RDW Plt Count Lymph % (Auto) [place] % (Auto) Lymph # Seg Neutrophils % Seg Neuts % (Manual) Lymphocytes % (Manual) Monocytes % (Manual) Nucleated RBC % Seg Neutrophils # Seg Neutrophils # Man Lymphocytes # (Manual) Monocytes # (Manual) PT INR POC ABG pH POC ABG pCO2 POC ABG pO2 Sodium Potassium Chloride Carbon Dioxide BUN Creatinine Glucose POC Glucose 126 H 176 H 180 H Lactic Acid Calcium Phosphorus Magnesium Total Bilirubin AST Alkaline Phosphatase Total Creatine Kinase C-Reactive Protein Total Protein Albumin TSH Free T4 Urine WBC (Auto) Crossmatch 12/22/18 12/23/18 12/23/18 23:19 05:56 08:50 WBC RBC Hgb Hct MCV MCH RDW Plt Count Lymph % (Auto) [place] % (Auto) Lymph # Seg Neutrophils % Seg Neuts % (Manual) Lymphocytes % (Manual) Monocytes % (Manual) Nucleated RBC % Seg Neutrophils # Seg Neutrophils # Man Lymphocytes # (Manual) Monocytes # (Manual) PT INR POC ABG pH POC ABG pCO2 POC ABG pO2 Sodium 134 L Potassium Chloride Carbon Dioxide BUN 80 H Creatinine 2.4 H Glucose 133 H POC Glucose 135 H 174 H Lactic Acid Calcium 7.0 L Phosphorus Magnesium Total Bilirubin AST Alkaline Phosphatase Total Creatine Kinase C-Reactive Protein Total Protein Albumin TSH Free T4 Urine WBC (Auto) Crossmatch 12/23/18 12/23/18 12/24/18 08:50 11:18 00:18 WBC RBC 3.29 L Hgb 8.5 L Hct 24.9 L MCV 76 L MCH 26 L RDW 24.9 H Plt Count 7 L* Lymph % (Auto) [place] % (Auto) Lymph # Seg Neutrophils % Seg Neuts % (Manual) Lymphocytes % (Manual) Monocytes % (Manual) Nucleated RBC % Seg Neutrophils # Seg Neutrophils # Man Lymphocytes # (Manual) Monocytes # (Manual) PT INR POC ABG pH POC ABG pCO2 POC ABG pO2 Sodium Potassium Chloride Carbon Dioxide BUN Creatinine Glucose POC Glucose 164 H 64 L Lactic Acid Calcium Phosphorus Magnesium Total Bilirubin AST Alkaline Phosphatase Total Creatine Kinase C-Reactive Protein Total Protein Albumin TSH Free T4 Urine WBC (Auto) Crossmatch 12/24/18 12/24/18 12/24/18 00:56 06:00 06:00 WBC RBC Hgb 9.7 L Hct 29.1 L MCV 76 L MCH 25 L RDW 24.9 H Plt Count 30 L D Lymph % (Auto) [place] % (Auto) Lymph # Seg Neutrophils % Seg Neuts % (Manual) 86.0 H Lymphocytes % (Manual) 0 L Monocytes % (Manual) Nucleated RBC % Seg Neutrophils # Seg Neutrophils # Man 9.1 H Lymphocytes # (Manual) 0.0 L Monocytes # (Manual) PT INR POC ABG pH POC ABG pCO2 POC ABG pO2 Sodium 132 L Potassium Chloride Carbon Dioxide BUN 79 H Creatinine 2.4 H Glucose 117 H POC Glucose 162 H Lactic Acid Calcium 7.5 L Phosphorus Magnesium Total Bilirubin AST 48 H Alkaline Phosphatase 252 H Total Creatine Kinase C-Reactive Protein Total Protein 5.5 L Albumin 1.6 L TSH Free T4 Urine WBC (Auto) Crossmatch 12/24/18 12/24/18 12/24/18 06:00 12:03 18:45 WBC RBC Hgb Hct MCV MCH RDW Plt Count Lymph % (Auto) [place] % (Auto) Lymph # Seg Neutrophils % Seg Neuts % (Manual) Lymphocytes % (Manual) Monocytes % (Manual) Nucleated RBC % Seg Neutrophils # Seg Neutrophils # Man Lymphocytes # (Manual) Monocytes # (Manual) PT INR POC ABG pH POC ABG pCO2 POC ABG pO2 Sodium Potassium Chloride Carbon Dioxide BUN Creatinine Glucose POC Glucose 153 H 133 H Lactic Acid Calcium Phosphorus 6.60 H Magnesium 2.40 H Total Bilirubin AST Alkaline Phosphatase Total Creatine Kinase C-Reactive Protein Total Protein Albumin TSH Free T4 Urine WBC (Auto) Crossmatch 12/24/18 12/25/18 12/25/18 23:08 06:36 12:05 WBC RBC Hgb Hct MCV MCH RDW Plt Count Lymph % (Auto) [place] % (Auto) Lymph # Seg Neutrophils % Seg Neuts % (Manual) Lymphocytes % (Manual) Monocytes % (Manual) Nucleated RBC % Seg Neutrophils # Seg Neutrophils # Man Lymphocytes # (Manual) Monocytes # (Manual) PT INR POC ABG pH POC ABG pCO2 POC ABG pO2 Sodium Potassium Chloride Carbon Dioxide BUN Creatinine Glucose POC Glucose 125 H 176 H 161 H Lactic Acid Calcium Phosphorus Magnesium Total Bilirubin AST Alkaline Phosphatase Total Creatine Kinase C-Reactive Protein Total Protein Albumin TSH Free T4 Urine WBC (Auto) Crossmatch 12/25/18 12/26/18 12/26/18 18:33 00:07 05:09 WBC RBC Hgb Hct MCV MCH RDW Plt Count Lymph % (Auto) [place] % (Auto) Lymph # Seg Neutrophils % Seg Neuts % (Manual) Lymphocytes % (Manual) Monocytes % (Manual) Nucleated RBC % Seg Neutrophils # Seg Neutrophils # Man Lymphocytes # (Manual) Monocytes # (Manual) PT INR POC ABG pH POC ABG pCO2 POC ABG pO2 Sodium Potassium Chloride Carbon Dioxide BUN Creatinine Glucose POC Glucose 237 H 178 H 171 H Lactic Acid Calcium Phosphorus Magnesium Total Bilirubin AST Alkaline Phosphatase Total Creatine Kinase C-Reactive Protein Total Protein Albumin TSH Free T4 Urine WBC (Auto) Crossmatch 12/26/18 12/26/18 12/26/18 11:27 17:52 23:39 WBC RBC Hgb Hct MCV MCH RDW Plt Count Lymph % (Auto) [place] % (Auto) Lymph # Seg Neutrophils % Seg Neuts % (Manual) Lymphocytes % (Manual) Monocytes % (Manual) Nucleated RBC % Seg Neutrophils # Seg Neutrophils # Man Lymphocytes # (Manual) Monocytes # (Manual) PT INR POC ABG pH POC ABG pCO2 POC ABG pO2 Sodium Potassium Chloride Carbon Dioxide BUN Creatinine Glucose POC Glucose 205 H 166 H 122 H Lactic Acid Calcium Phosphorus Magnesium Total Bilirubin AST Alkaline Phosphatase Total Creatine Kinase C-Reactive Protein Total Protein Albumin TSH Free T4 Urine WBC (Auto) Crossmatch 12/27/18 12/27/18 12/27/18 06:21 14:29 16:20 WBC RBC 3.01 L Hgb 7.6 L Hct 23.0 L MCV 76 L MCH 25 L RDW 24.4 H Plt Count 28 L Lymph % (Auto) 8.9 L [place] % (Auto) 7.4 H Lymph # 0.6 L Seg Neutrophils % 83.4 H Seg Neuts % (Manual) Lymphocytes % (Manual) Monocytes % (Manual) Nucleated RBC % Seg Neutrophils # Seg Neutrophils # Man Lymphocytes # (Manual) Monocytes # (Manual) PT INR POC ABG pH POC ABG pCO2 POC ABG pO2 Sodium Potassium Chloride Carbon Dioxide BUN Creatinine Glucose POC Glucose 174 H 197 H Lactic Acid Calcium Phosphorus Magnesium Total Bilirubin AST Alkaline Phosphatase Total Creatine Kinase C-Reactive Protein Total Protein Albumin TSH Free T4 Urine WBC (Auto) Crossmatch 12/27/18 12/27/18 12/27/18 16:20 17:42 20:16 WBC RBC Hgb Hct MCV MCH RDW Plt Count Lymph % (Auto) [place] % (Auto) Lymph # Seg Neutrophils % Seg Neuts % (Manual) Lymphocytes % (Manual) Monocytes % (Manual) Nucleated RBC % Seg Neutrophils # Seg Neutrophils # Man Lymphocytes # (Manual) Monocytes # (Manual) PT INR POC ABG pH POC ABG pCO2 POC ABG pO2 Sodium Potassium Chloride Carbon Dioxide 21 L BUN 106 H Creatinine 3.0 H Glucose 184 H POC Glucose 211 H Lactic Acid Calcium 6.8 L Phosphorus Magnesium Total Bilirubin AST Alkaline Phosphatase Total Creatine Kinase C-Reactive Protein Total Protein Albumin TSH Free T4 Urine WBC (Auto) Crossmatch See Detail 12/28/18 12/28/18 12/28/18 00:39 01:03 06:42 WBC RBC Hgb 8.2 L Hct 24.6 L MCV MCH RDW Plt Count Lymph % (Auto) [place] % (Auto) Lymph # Seg Neutrophils % Seg Neuts % (Manual) Lymphocytes % (Manual) Monocytes % (Manual) Nucleated RBC % Seg Neutrophils # Seg Neutrophils # Man Lymphocytes # (Manual) Monocytes # (Manual) PT INR POC ABG pH POC ABG pCO2 POC ABG pO2 Sodium Potassium Chloride Carbon Dioxide BUN Creatinine Glucose POC Glucose 135 H 160 H Lactic Acid Calcium Phosphorus Magnesium Total Bilirubin AST Alkaline Phosphatase Total Creatine Kinase C-Reactive Protein Total Protein Albumin TSH Free T4 Urine WBC (Auto) Crossmatch 12/28/18 12/28/18 12/28/18 07:30 07:30 11:33 WBC RBC 3.43 L Hgb 9.3 L Hct 27.5 L MCV MCH 27 L RDW 24.0 H Plt Count 34 L Lymph % (Auto) [place] % (Auto) Lymph # Seg Neutrophils % 86.0 H Seg Neuts % (Manual) 88.0 H Lymphocytes % (Manual) 6.0 L Monocytes % (Manual) Nucleated RBC % Seg Neutrophils # Seg Neutrophils # Man Lymphocytes # (Manual) 0.4 L Monocytes # (Manual) PT INR POC ABG pH POC ABG pCO2 POC ABG pO2 Sodium Potassium Chloride Carbon Dioxide 20 L BUN 101 H Creatinine 2.8 H Glucose 155 H POC Glucose 171 H Lactic Acid Calcium 6.5 L Phosphorus 7.40 H Magnesium Total Bilirubin AST Alkaline Phosphatase Total Creatine Kinase C-Reactive Protein Total Protein Albumin TSH Free T4 Urine WBC (Auto) Crossmatch 12/28/18 12/28/18 12/29/18 17:16 23:53 05:45 WBC RBC Hgb Hct 29.7 L MCV MCH 27 L RDW 23.8 H Plt Count 32 L Lymph % (Auto) [place] % (Auto) Lymph # Seg Neutrophils % Seg Neuts % (Manual) 94.0 H Lymphocytes % (Manual) 4.0 L Monocytes % (Manual) Nucleated RBC % 1.0 H Seg Neutrophils # Seg Neutrophils # Man Lymphocytes # (Manual) 0.2 L Monocytes # (Manual) PT INR POC ABG pH POC ABG pCO2 POC ABG pO2 Sodium Potassium Chloride Carbon Dioxide BUN Creatinine Glucose POC Glucose 151 H 108 H Lactic Acid Calcium Phosphorus Magnesium Total Bilirubin AST Alkaline Phosphatase Total Creatine Kinase C-Reactive Protein Total Protein Albumin TSH Free T4 Urine WBC (Auto) Crossmatch 12/29/18 12/29/18 12/29/18 05:45 12:40 18:04 WBC RBC Hgb Hct MCV MCH RDW Plt Count Lymph % (Auto) [place] % (Auto) Lymph # Seg Neutrophils % Seg Neuts % (Manual) Lymphocytes % (Manual) Monocytes % (Manual) Nucleated RBC % Seg Neutrophils # Seg Neutrophils # Man Lymphocytes # (Manual) Monocytes # (Manual) PT INR POC ABG pH POC ABG pCO2 POC ABG pO2 Sodium Potassium Chloride Carbon Dioxide 20 L BUN 103 H Creatinine 2.7 H Glucose POC Glucose 108 H 147 H Lactic Acid Calcium 6.6 L Phosphorus 7.20 H Magnesium Total Bilirubin AST 49 H Alkaline Phosphatase 309 H Total Creatine Kinase C-Reactive Protein Total Protein 4.6 L Albumin 1.6 L TSH Free T4 Urine WBC (Auto) Crossmatch 12/29/18 12/30/18 12/30/18 23:47 05:44 11:29 WBC RBC Hgb Hct MCV MCH RDW Plt Count Lymph % (Auto) [place] % (Auto) Lymph # Seg Neutrophils % Seg Neuts % (Manual) Lymphocytes % (Manual) Monocytes % (Manual) Nucleated RBC % Seg Neutrophils # Seg Neutrophils # Man Lymphocytes # (Manual) Monocytes # (Manual) PT INR POC ABG pH POC ABG pCO2 POC ABG pO2 Sodium Potassium Chloride Carbon Dioxide BUN Creatinine Glucose POC Glucose 119 H 129 H 226 H Lactic Acid Calcium Phosphorus Magnesium Total Bilirubin AST Alkaline Phosphatase Total Creatine Kinase C-Reactive Protein Total Protein Albumin TSH Free T4 Urine WBC (Auto) Crossmatch 12/30/18 12/30/18 12/30/18 13:58 13:58 18:38 WBC RBC 3.12 L Hgb 8.3 L Hct 25.1 L MCV MCH 27 L RDW 24.5 H Plt Count 30 L Lymph % (Auto) [place] % (Auto) Lymph # Seg Neutrophils % Seg Neuts % (Manual) 79.0 H Lymphocytes % (Manual) 1.0 L Monocytes % (Manual) Nucleated RBC % Seg Neutrophils # Seg Neutrophils # Man Lymphocytes # (Manual) 0.0 L Monocytes # (Manual) PT INR POC ABG pH POC ABG pCO2 POC ABG pO2 Sodium Potassium Chloride Carbon Dioxide 19 L BUN 101 H Creatinine 2.4 H Glucose 196 H POC Glucose 154 H Lactic Acid Calcium 6.5 L Phosphorus Magnesium Total Bilirubin AST 45 H Alkaline Phosphatase 321 H Total Creatine Kinase C-Reactive Protein Total Protein 4.2 L Albumin 1.4 L TSH Free T4 Urine WBC (Auto) Crossmatch 12/30/18 12/31/18 12/31/18 23:46 03:55 03:55 WBC 4.4 L RBC 3.08 L Hgb 8.3 L Hct 24.9 L MCV MCH 27 L RDW 25.0 H Plt Count 14 L* Lymph % (Auto) [place] % (Auto) Lymph # Seg Neutrophils % Seg Neuts % (Manual) 71.0 H Lymphocytes % (Manual) 1.0 L Monocytes % (Manual) Nucleated RBC % Seg Neutrophils # Seg Neutrophils # Man Lymphocytes # (Manual) 0.0 L Monocytes # (Manual) PT INR POC ABG pH POC ABG pCO2 POC ABG pO2 Sodium Potassium 3.3 L Chloride 109.3 H Carbon Dioxide 20 L BUN 101 H Creatinine 2.5 H Glucose 126 H POC Glucose 141 H Lactic Acid Calcium 6.7 L Phosphorus 7.10 H Magnesium Total Bilirubin AST 42 H Alkaline Phosphatase 298 H Total Creatine Kinase C-Reactive Protein Total Protein 4.1 L Albumin 1.1 L TSH Free T4 Urine WBC (Auto) Crossmatch 12/31/18 05:13 WBC RBC Hgb Hct MCV MCH RDW Plt Count Lymph % (Auto) [place] % (Auto) Lymph # Seg Neutrophils % Seg Neuts % (Manual) Lymphocytes % (Manual) Monocytes % (Manual) Nucleated RBC % Seg Neutrophils # Seg Neutrophils # Man Lymphocytes # (Manual) Monocytes # (Manual) PT INR POC ABG pH POC ABG pCO2 POC ABG pO2 Sodium Potassium Chloride Carbon Dioxide BUN Creatinine Glucose POC Glucose 117 H Lactic Acid Calcium Phosphorus Magnesium Total Bilirubin AST Alkaline Phosphatase Total Creatine Kinase C-Reactive Protein Total Protein Albumin TSH Free T4 Urine WBC (Auto) Crossmatch Allied health notes reviewed: nursing
--- NOTE | 2018-12-31 14:05 | Progress Note ---
Assessment and Plan 88 yo F with 1. VDRF 2. sepsis 3. acute encephalopathy 4. comatose 5. CVA 6. thrombocytopenia Plan: There have been multiple conversations between pulm crit care team and the patient's granddaughter/POA Renée Kessler regarding extremely poor prognosis. Despite these conversations, she wants to proceed with trach/PEG. I also explained to her that these procedure carry a risk and it is highly unlikely that the patient will be able to wean from vent or eat on her own. Neurology has seen the patient and ordered Ct scan Head which showed "subacute to chronic nonhemorrhagic infarct involving left thalamus, occipital lobes, much of the brain stem and cerebellum as described. Remote right MCA distribution infarct. Diminished attenuation of the periventricular white matter compatible with chronic ischemic white matter disease." Discussed with Dr. Robles. Unable to get neuro second opinion. Will proceed with trach/PEG. I discussed all risks, benefits, and alternatives to procedures with [place] (POA). This includes but not limited to infection, bleeding, injury to surrounding structures, fistula, dislodgment of tube(s), possible need for additional procedures or surgery. She understands and all questions answered. I explained to her that we will need to first transfuse platelets to obtain a value greater than 50K. Patient is currently at 14K platelet count. Consent obtained. Transfuse platelets today and will repeat BMP in am. If platelet count greater than 50K, will perform procedures tomorrow 01/01/19 PM in the OR. Thank you, please call with questions. Subjective Date of service: 12/31/18 Narrative: Pt seen and examined. TF stopped overnight due to vomiting. No residuals today and so TF restarted Objective Vital Signs - 12hr 12/31/18 12/31/18 12/31/18 03:01 03:30 03:50 Temperature 97.2 F L Pulse Rate 61 61 Pulse Rate [ Anterior Bilateral Throughout] Pulse Rate [ Apical] Pulse Rate [ From Monitor] Pulse Rate [ Throughout] Respiratory 18 Rate Respiratory Rate [Anterior Bilateral Throughout] Respiratory Rate [ Throughout] Blood Pressure 112/22 105/26 O2 Sat by Pulse 100 100 Oximetry 12/31/18 12/31/18 12/31/18 04:00 04:01 05:01 Temperature Pulse Rate 60 64 Pulse Rate [ Anterior Bilateral Throughout] Pulse Rate [ Apical] Pulse Rate [ 63 From Monitor] Pulse Rate [ Throughout] Respiratory 18 18 18 Rate Respiratory Rate [Anterior Bilateral Throughout] Respiratory Rate [ Throughout] Blood Pressure 103/33 120/36 O2 Sat by Pulse 100 100 100 Oximetry 12/31/18 12/31/18 12/31/18 06:01 07:01 08:00 Temperature 98.3 F Pulse Rate 64 67 66 Pulse Rate [ Anterior Bilateral Throughout] Pulse Rate [ 73 Apical] Pulse Rate [ 73 From Monitor] Pulse Rate [ Throughout] Respiratory 18 18 14 Rate Respiratory Rate [Anterior Bilateral Throughout] Respiratory Rate [ Throughout] Blood Pressure 120/37 119/37 100/42 O2 Sat by Pulse 100 100 100 Oximetry 12/31/18 12/31/18 12/31/18 08:34 08:37 08:38 Temperature Pulse Rate 65 70 76 Pulse Rate [ Anterior Bilateral Throughout] Pulse Rate [ Apical] Pulse Rate [ From Monitor] Pulse Rate [ Throughout] Respiratory Rate Respiratory Rate [Anterior Bilateral Throughout] Respiratory Rate [ Throughout] Blood Pressure 109/38 109/38 109/38 O2 Sat by Pulse 100 Oximetry 12/31/18 12/31/18 12/31/18 08:51 09:00 10:00 Temperature Pulse Rate 72 64 Pulse Rate [ 71 Anterior Bilateral Throughout] Pulse Rate [ Apical] Pulse Rate [ From Monitor] Pulse Rate [ 69 Throughout] Respiratory 15 18 Rate Respiratory 18 Rate [Anterior Bilateral Throughout] Respiratory 28 H Rate [ Throughout] Blood Pressure 106/46 101/30 O2 Sat by Pulse 97 100 Oximetry 12/31/18 12/31/18 12/31/18 10:49 11:00 12:00 Temperature 93.6 F L Pulse Rate 60 64 60 Pulse Rate [ Anterior Bilateral Throughout] Pulse Rate [ Apical] Pulse Rate [ From Monitor] Pulse Rate [ Throughout] Respiratory 18 Rate Respiratory Rate [Anterior Bilateral Throughout] Respiratory Rate [ Throughout] Blood Pressure 102/38 108/34 O2 Sat by Pulse 100 Oximetry 12/31/18 12/31/18 12/31/18 12:01 12:40 13:08 Temperature Pulse Rate 73 67 Pulse Rate [ 60 Anterior Bilateral Throughout] Pulse Rate [ Apical] Pulse Rate [ From Monitor] Pulse Rate [ 64 Throughout] Respiratory 18 Rate Respiratory 18 Rate [Anterior Bilateral Throughout] Respiratory 18 Rate [ Throughout] Blood Pressure 107/41 116/40 O2 Sat by Pulse 100 100 Oximetry - General physical appearance Narrative Exam: Gen: intubated, unresponsive ENT: ETT in place CV: s1, S2+ resp: on vent Ext: +edema - Labs 12/31/18 03:55 12/31/18 03:55 Diabetes panel 12/30/18 12/31/18 Range/Units 13:58 03:55 Sodium 141 141 (137-145) mmol/L Potassium 3.6 3.3 L (3.6-5.0) mmol/L Chloride 106.7 109.3 H (98-107) mmol/L Carbon Dioxide 19 L 20 L (22-30) mmol/L BUN 101 H 101 H (7-17) mg/dL Creatinine 2.4 H 2.5 H (0.7-1.2) mg/dL Glucose 196 H 126 H (65-100) mg/dL Calcium 6.5 L 6.7 L (8.4-10.2) mg/dL AST 45 H 42 H (5-40) units/L ALT 13 13 (7-56) units/L Alkaline Phosphatase 321 H 298 H (35-129) units/L Total Protein 4.2 L 4.1 L (6.3-8.2) g/dL Albumin 1.4 L 1.1 L (3.9-5) g/dL Calcium panel 12/30/18 12/31/18 Range/Units 13:58 03:55 Calcium 6.5 L 6.7 L (8.4-10.2) mg/dL Phosphorus 7.10 H (2.5-4.5) mg/dL Albumin 1.4 L 1.1 L (3.9-5) g/dL Pituitary panel 12/30/18 12/31/18 Range/Units 13:58 03:55 Sodium 141 141 (137-145) mmol/L Potassium 3.6 3.3 L (3.6-5.0) mmol/L Chloride 106.7 109.3 H (98-107) mmol/L Carbon Dioxide 19 L 20 L (22-30) mmol/L BUN 101 H 101 H (7-17) mg/dL Creatinine 2.4 H 2.5 H (0.7-1.2) mg/dL Glucose 196 H 126 H (65-100) mg/dL Calcium 6.5 L 6.7 L (8.4-10.2) mg/dL Adrenal panel 12/30/18 12/31/18 Range/Units 13:58 03:55 Sodium 141 141 (137-145) mmol/L Potassium 3.6 3.3 L (3.6-5.0) mmol/L Chloride 106.7 109.3 H (98-107) mmol/L Carbon Dioxide 19 L 20 L (22-30) mmol/L BUN 101 H 101 H (7-17) mg/dL Creatinine 2.4 H 2.5 H (0.7-1.2) mg/dL Glucose 196 H 126 H (65-100) mg/dL Calcium 6.5 L 6.7 L (8.4-10.2) mg/dL Total Bilirubin 0.30 0.40 (0.1-1.2) mg/dL AST 45 H 42 H (5-40) units/L ALT 13 13 (7-56) units/L Alkaline Phosphatase 321 H 298 H (35-129) units/L Total Protein 4.2 L 4.1 L (6.3-8.2) g/dL Albumin 1.4 L 1.1 L (3.9-5) g/dL
[2019-01-01] MEDS: DUONEB *Not for PRN Use IH SCH ×4 (01:27→19:29)
[2019-01-01 05:24] LABS: Hematocrit 22.9 % (30.3-42.9); Hemoglobin 7.7 gm/dl (10.1-14.3); Mean Corpuscular HGB Conc 34 % (30-34); Mean Corpuscular Volume 80 fl (79-97); Red Blood Count 2.86 M/mm3 (3.65-5.03)
[2019-01-01 05:43] LABS: Platelet Count 42 K/mm3 (140-440)
[2019-01-01 05:59] LABS: Calcium 6.5 mg/dL (8.4-10.2)
[2019-01-01] MEDS: HumaLOG SUB-Q SCH ×2 (06:10→12:31)
[2019-01-01] MEDS: APRESOLINE PO SCH (08:00)
[2019-01-01] MEDS: LOPRESSOR PO SCH ×3 (08:00→18:52)
[2019-01-01] MEDS ORDERED: NACL 0.9% 500 ML 500 ML IV ONE (08:18)
[2019-01-01] MEDS ORDERED: NACL 0.9% 1000 ML 1,000 ML IV ONE ×2 (08:20→13:00)
--- NOTE | 2019-01-01 08:39 | Progress Note ---
Assessment and Plan Assessment and plan: --Acute respiratory failure; vent dependent Surgery scheduled trach and PEG today --Thrombocytopenia Transfused total 5 Units platelets Plt 42 today, will transfuse [address] lets stat --hypotension, Bp in the lower range today, 1 L normal saline fluid bolus Levophed if no improvement --Acute encephalopathy: Multifactorial, CT head extensive right MCA encephalomalcia, right mastoid opacities. neurology evaluated. 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 --s/p Severe Sepsis due to UTI , right mastoiditis, aspiration PNA Blood cultures negative, right ear Cx negative Completed antibiotics per ID --s/p Septic Shock, --Left lower lobe infiltrate, poss pneumonia s/p antibiotics --Large Pericardial effusion without tamponade TTE EF>50,Cardiology evaluated, medical management Poor candidate for any procedure --MARYANN on CKD 3 Nephrology following-avoid nephrotoxins no indication for HD now --Acute on chronic anemia has h/o anemia requiring previous blood transfusions could be multifactorial (GI bleed and CKD), Total 4 Units PRBC transfused --Lower GI Bleeding:Resolved Hemoglobin low stable h/o Coffee ground emesis:GI evaluated Resolved,No plans of endoscopy --Hypothermia,resolved --Diabetes mellitus type 2, SSI as needed Full code status. Very Poor prognosis, recommend hospice, palliative care The high probability of a clinically significant, sudden or life threatening deterioration of the [respiratory, cardiology, GI, renal, hematology] system(s) required my full and direct attention, intervention and personal management. The aggregate critical care time was [31] minutes. This time is in addition to time spent performing reported procedures but includes the following: [x] Data Review and interpretation [x] Patient assessment and monitoring of vital signs [x] Documentation [x] Medication orders and management History Interval history: Patient seen and examined medical records reviewed Scheduled for trach and PEG today Mild hypertension, advised fluid bolus Platelets 42, advised stat platelet transfusion 2 units Clinically no change Unresponsive intubated on vent Vital signs reviewed Hospitalist Physical - Constitutional Vitals: Temp Pulse Resp BP Pulse Ox 95.9 F L 60 18 95/34 98 01/01/19 08:00 01/01/19 07:57 01/01/19 07:57 01/01/19 07:46 01/01/19 07:46 General appearance: Present: no acute distress, well-nourished, other (intubated on vent) - EENT Eyes: Present: PERRL, EOM intact - Neck Neck: Present: supple - Respiratory Respiratory effort: normal Respiratory: bilateral: diminished, rhonchi, negative: rales, wheezing - Cardiovascular Rhythm: regular Heart Sounds: Present: S1 & S2 - Extremities Extremities: no ischemia Extremity abnormal: edema - Abdominal General gastrointestinal: soft, non-tender, non-distended, normal bowel sounds - Integumentary Integumentary: Present: clear, warm - Psychiatric Psychiatric: other (unresponsive intubated) - Neurologic Neurologic: other (unresponsive intubated) Results - Labs CBC & Chem 7: 01/01/19 04:30 01/01/19 04:30 Labs: Laboratory Last Values WBC 5.8 K/mm3 (4.5-11.0) 01/01/19 04:30 RBC 2.86 M/mm3 (3.65-5.03) L 01/01/19 04:30 Hgb 7.7 gm/dl (10.1-14.3) L 01/01/19 04:30 Hct 22.9 % (30.3-42.9) L 01/01/19 04:30 MCV 80 fl (79-97) 01/01/19 04:30 MCH 27 pg (28-32) L 01/01/19 04:30 MCHC 34 % (30-34) 01/01/19 04:30 RDW 25.0 % (13.2-15.2) H 01/01/19 04:30 Plt Count 42 K/mm3 (140-440) L D 01/01/19 04:30 Lymph % (Auto) 8.9 % (13.4-35.0) L 12/27/18 16:20 Dickson % (Auto) 6.1 % (0.0-7.3) 12/28/18 07:30 Eos % (Auto) 0.1 % (0.0-4.3) 12/28/18 07:30 Baso % (Auto) 0.3 % (0.0-1.8) 12/27/18 16:20 Lymph # 0.6 K/mm3 (1.2-5.4) L 12/27/18 16:20 Dickson # 0.5 K/mm3 (0.0-0.8) 12/27/18 16:20 Eos # 0.0 K/mm3 (0.0-0.4) 12/27/18 16:20 Baso # 0.0 K/mm3 (0.0-0.1) 12/27/18 16:20 Add Manual Diff Complete 12/31/18 03:55 Total Counted 100 12/31/18 03:55 Seg Neutrophils % 86.0 % (40.0-70.0) H 12/28/18 07:30 Seg Neuts % (Manual) 71.0 % (40.0-70.0) H 12/31/18 03:55 Band Neutrophils % 23.0 % 12/31/18 03:55 Lymphocytes % (Manual) 1.0 % (13.4-35.0) L 12/31/18 03:55 Reactive Lymphs % (Man) 0 % 12/31/18 03:55 Monocytes % (Manual) 4.0 % (0.0-7.3) 12/31/18 03:55 Eosinophils % (Manual) 1.0 % (0.0-4.3) 12/31/18 03:55 Basophils % (Manual) 0 % (0.0-1.8) 12/31/18 03:55 Metamyelocytes % 0 % 12/31/18 03:55 Myelocytes % 0 % 12/31/18 03:55 Promyelocytes % 0 % 12/31/18 03:55 Blast Cells % 0 % 12/31/18 03:55 Nucleated RBC % Not Reportable 12/31/18 03:55 Seg Neutrophils # 5.8 K/mm3 (1.8-7.7) 12/28/18 07:30 Seg Neutrophils # Man 3.1 K/mm3 (1.8-7.7) 12/31/18 03:55 Band Neutrophils # 1.0 K/mm3 12/31/18 03:55 Lymphocytes # (Manual) 0.0 K/mm3 (1.2-5.4) L 12/31/18 03:55 Abs React Lymphs (Man) 0.0 K/mm3 12/31/18 03:55 Monocytes # (Manual) 0.2 K/mm3 (0.0-0.8) 12/31/18 03:55 Eosinophils # (Manual) 0.0 K/mm3 (0.0-0.4) 12/31/18 03:55 Basophils # (Manual) 0.0 K/mm3 (0.0-0.1) 12/31/18 03:55 Metamyelocytes # 0.0 K/mm3 12/31/18 03:55 Myelocytes # 0.0 K/mm3 12/31/18 03:55 Promyelocytes # 0.0 K/mm3 12/31/18 03:55 Blast Cells # 0.0 K/mm3 12/31/18 03:55 WBC Morphology Not Reportable 12/31/18 03:55 Hypersegmented Neuts Not Reportable 12/31/18 03:55 Hyposegmented Neuts Not Reportable 12/31/18 03:55 Hypogranular Neuts Not Reportable 12/31/18 03:55 Smudge Cells Not Reportable 12/31/18 03:55 Toxic Granulation Not Reportable 12/31/18 03:55 Toxic Vacuolation Not Reportable 12/31/18 03:55 Dohle Bodies Not Reportable 12/31/18 03:55 Pelger-Huet Anomaly Not Reportable 12/31/18 03:55 Mark Rods Not Reportable 12/31/18 03:55 Platelet Estimate Appears decreased 12/31/18 03:55 Clumped Platelets Not Reportable 12/31/18 03:55 Plt Clumps, EDTA Not Reportable 12/31/18 03:55 Large Platelets Not Reportable 12/31/18 03:55 Giant Platelets Not Reportable 12/31/18 03:55 Platelet Satelliting Not Reportable 12/31/18 03:55 Plt Morphology Comment Not Reportable 12/31/18 03:55 RBC Morphology Not Reportable 12/31/18 03:55 Dimorphic RBCs Not Reportable 12/31/18 03:55 Polychromasia Not Reportable 12/31/18 03:55 Hypochromasia 2+ 12/31/18 03:55 Poikilocytosis Not Reportable 12/31/18 03:55 Anisocytosis 2+ 12/31/18 03:55 Microcytosis Not Reportable 12/31/18 03:55 Macrocytosis Not Reportable 12/31/18 03:55 Spherocytes Not Reportable 12/31/18 03:55 Pappenheimer Bodies Not Reportable 12/31/18 03:55 Sickle Cells Not Reportable 12/31/18 03:55 Target Cells 1+ 12/31/18 03:55 Tear Drop Cells Not Reportable 12/31/18 03:55 Ovalocytes Not Reportable 12/31/18 03:55 Helmet Cells Not Reportable 12/31/18 03:55 Estr[place] Bodies Not Reportable 12/31/18 03:55 Rogers Rings Not Reportable 12/31/18 03:55 Aneesh Cells Not Reportable 12/31/18 03:55 Bite Cells Not Reportable 12/31/18 03:55 Crenated Cell Not Reportable 12/31/18 03:55 Elliptocytes Not Reportable 12/31/18 03:55 Acanthocytes (Spur) Not Reportable 12/31/18 03:55 Rouleaux Not Reportable 12/31/18 03:55 Hemoglobin C Crystals Not Reportable 12/31/18 03:55 Schistocytes Not Reportable 12/31/18 03:55 Malaria parasites Not Reportable 12/31/18 03:55 Stef Bodies Not Reportable 12/31/18 03:55 Hem Pathologist Commnt No 12/31/18 03:55 PT 20.2 Sec. (12.2-14.9) H 12/12/18 08:00 INR 1.61 (0.87-1.13) H 12/12/18 08:00 APTT 30.9 Sec. (24.2-36.6) 12/10/18 10:40 POC ABG pH 7.325 (7.35-7.45) L 12/15/18 03:37 POC ABG pCO2 28.6 (35-45) L 12/15/18 03:37 POC ABG pO2 105 (80-105) 12/15/18 03:37 POC ABG HCO3 14.9 12/15/18 03:37 POC ABG Total CO2 16 12/15/18 03:37 POC ABG O2 Sat 98 12/15/18 03:37 POC ABG Base Excess -11 12/15/18 03:37 FiO2 25 % 12/15/18 03:37 Sodium 145 mmol/L (137-145) 01/01/19 04:30 Potassium 3.6 mmol/L (3.6-5.0) 01/01/19 04:30 Chloride 110.0 mmol/L (98-107) H 01/01/19 04:30 Carbon Dioxide 21 mmol/L (22-30) L 01/01/19 04:30 Anion Gap 18 mmol/L 01/01/19 04:30 BUN 96 mg/dL (7-17) H 01/01/19 04:30 Creatinine 2.3 mg/dL (0.7-1.2) H 01/01/19 04:30 Estimated GFR 24 ml/min 01/01/19 04:30 BUN/Creatinine Ratio 42 % 01/01/19 04:30 Glucose 109 mg/dL (65-100) H 01/01/19 04:30 POC Glucose 118 (70-105) H 01/01/19 05:43 Hemoglobin A1c 4.9 % (4-6) 12/10/18 04:38 Lactic Acid 3.00 mmol/L (0.7-2.0) H* 12/08/18 15:21 Calcium 6.5 mg/dL (8.4-10.2) L 01/01/19 04:30 Phosphorus 7.10 mg/dL (2.5-4.5) H 12/31/18 03:55 Magnesium 2.30 mg/dL (1.7-2.3) 12/31/18 03:55 Total Bilirubin 0.40 mg/dL (0.1-1.2) 12/31/18 03:55 AST 42 units/L (5-40) H 12/31/18 03:55 ALT 13 units/L (7-56) 12/31/18 03:55 Alkaline Phosphatase 298 units/L (35-129) H 12/31/18 03:55 Total Creatine Kinase 258 units/L (30-135) H 12/08/18 13:40 C-Reactive Protein 19.60 mg/dL (0.00-1.30) H 12/09/18 18:18 Total Protein 4.1 g/dL (6.3-8.2) L 12/31/18 03:55 Albumin 1.1 g/dL (3.9-5) L 12/31/18 03:55 Albumin/Globulin Ratio 0.4 % 12/31/18 03:55 TSH 0.268 mlU/mL (0.270-4.200) L 12/09/18 15:54 Free T4 0.58 ng/dL (0.76-1.46) L 12/09/18 15:54 Urine Color Yolie (Yellow) 12/08/18 13:40 Urine Turbidity Cloudy (Clear) 12/08/18 13:40 Urine pH 7.0 (5.0-7.0) 12/08/18 13:40 Ur Specific [place] 1.015 (1.003-1.030) 12/08/18 13:40 Urine Protein 100 mg/dl mg/dL (Negative) 12/08/18 13:40 Urine Glucose (UA) Neg mg/dL (Negative) 12/08/18 13:40 Urine Ketones Neg mg/dL (Negative) 12/08/18 13:40 Urine Blood Sm (Negative) 12/08/18 13:40 Urine Nitrite Neg (Negative) 12/08/18 13:40 Urine Bilirubin Neg (Negative) 12/08/18 13:40 Urine Urobilinogen 2.0 mg/dL (<2.0) 12/08/18 13:40 Ur Leukocyte Esterase Mod (Negative) 12/08/18 13:40 Urine WBC (Auto) 157.0 /HPF (0.0-6.0) H 12/08/18 13:40 Urine RBC (Auto) 8.0 /HPF (0.0-6.0) 12/08/18 13:40 U Epithel Cells (Auto) 1.0 /HPF (0-13.0) 12/08/18 13:40 Urine Bacteria (Auto) 4+ /HPF (Negative) 12/08/18 13:40 Urine Mucus 2+ /HPF 12/08/18 13:40 Random Vancomycin 15.9 ug/mL (0-40.0) 12/18/18 04:08 JEFFREY Screen Negative (Negative) 12/09/18 15:54 Blood Type B POSITIVE 12/27/18 20:16 Antibody Screen Negative 12/27/18 20:16 Crossmatch See Detail 12/27/18 20:16 Active Medications - Current Medications Current Medications: Generic Name Dose Route Start Last Admin Trade Name Freq PRN Reason Stop Dose Admin Acetaminophen 650 mg 12/09/18 01:00 12/28/18 00:24 Tylenol [place] 650 mg Q4H PRN Administration Pain MILD(1-3)/Fever >100.5/TURNER Albuterol 2.5 mg 12/09/18 00:31 Proventil IH Q4HRT PRN Shortness Of Breath Albuterol/Ipratropium 1 ampul 12/09/18 02:00 01/01/19 07:45 Duoneb *Not For Prn Use* IH 1 ampul Q6HRT KOLE Administration Amlodipine Besylate 10 mg 12/28/18 10:00 12/31/18 10:49 Norvasc PO 10 mg DAILY KOLE Administration Lipase/Protease/Amylase 1 each 12/09/18 04:[address] 10,500 Unit FEEDTUBE PRN PRN For Clogged Feeding Tube Atorvastatin Calcium 20 mg 12/28/18 22:00 12/31/18 22:25 Lipitor PO 20 mg QHS KOLE Administration Dextrose 50 ml 12/24/18 00:42 12/24/18 00:30 D50w (25gm) Syringe IV 50 ml PRN PRN Administration Hypoglycemia Hydralazine HCl 50 mg 12/28/18 08:00 12/31/18 20:43 Apresoline PO 50 mg TID KOLE Administration Hydrophilic Ointment 1 applic 12/14/18 13:00 Vaseline Lip Therapy TP DIRECT PRN Dry tongue Norepinephrine 4 mg in 250 mls @ 7.5 mls/hr 12/18/18 18:00 12/19/18 18:00 Levophed Drip 4 Mg/Ns 250 Ml IV 0 mcg/min TITR KOLE 0 mls/hr Titration Protocol 2 MCG/MIN Sodium Chloride 500 mls @ 0 mls/hr 01/01/19 08:18 Nacl 0.9% 500 Ml IV 01/01/19 08:19 ONCE ONE As Directed Sodium Chloride 1,000 mls @ 999 mls/hr 01/01/19 08:20 Nacl 0.9% 1000 Ml IV 01/01/19 09:20 BOLUS ONE Insulin Human Lispro 0 unit 12/11/18 12:00 01/01/19 06:10 Humalog SUB-Q Not Given Q6HR [facility] Protocol Lansoprazole 30 mg 12/12/18 10:00 12/31/18 22:25 Prevacid Solutab FEEDTUBE 30 mg BID KOLE Administration Metoprolol Tartrate 25 mg 12/27/18 23:45 12/31/18 17:25 Lopressor PO 25 mg BID@0800,1700 KOLE Administration Multi-Ingred Cream/Lotion/Oil/Oint 1 applic 12/08/18 13:31 Artificial Tears Ophth Oint OU Q4HR PRN Dry Eye(s) Ondansetron HCl 4 mg 12/09/18 00:31 Zofran IV Q8H PRN Nausea And Vomiting Promethazine HCl/Codeine 5 ml 12/27/18 23:49 Phenergan/Codeine 6.25-10 Mg/5ml PO Q6H PRN cough Simple Syrup 15 ml 12/09/18 04:05 Simple Syrup FEEDTUBE PRN PRN Hypoglycemia Simple Syrup 30 ml 12/09/18 04:05 Simple Syrup FEEDTUBE PRN PRN Hypoglycemia Sodium Bicarbonate 325 mg 12/09/18 04:05 Sodium Bicarbonate FEEDTUBE PRN PRN For Clogged Feeding Tube Sodium Chloride 10 ml 12/09/18 10:00 12/31/18 22:25 Sodium Chloride Flush Syringe 10 Ml IV 10 ml BID KOLE Administration Sodium Chloride 10 ml 12/09/18 00:31 12/17/18 10:47 Sodium Chloride Flush Syringe 10 Ml IV 10 ml PRN PRN Administration LINE FLUSH Nutrition/Malnutrition Assess - Dietary Evaluation Nutrition/Malnutrition Findings: Nutrition Notes Start: 12/09/18 12:11 Freq: Status: Active Protocol: Document 12/31/18 09:19 CP (Rec: 12/31/18 09:24 CP [id number]) Co-Sign 12/31/18 09:19 LP Nutrition Notes Initial or Follow up Reassessment Current Diagnosis Acute Kidney Injury,Sepsis, Respiratory Failure Other Pertinent Diagnosis Acute encephalopathy, Pericardial effusion Current Diet TF - Glucerna 1.2 at 50ml/hr Labs/Tests K 3.3 BUN 101 Cr 2.5 BG 126 PO4 7.1 Pro 4.1 Pertinent Medications reviewed Height 5 ft 1 in Weight 76.4 kg [place] Body Weight (kg) 47.72 BMI 31.8 Subjective/Other Information Pt family members wanting to proceed with trach/PEG placement. Per MD, placement could be "extreme" for pt, but leaving the decision with family. TF hanging, but not infusing at time of visit (10: 00). Percent of energy/protein needs met: 0%/0% Burn Absent Trauma Absent #1 Nutrition Diagnosis Inadequate oral intake Diagnosis Progress(for reassessment Continues documentation) Is patient on ventilator? No Is Patient Ambulatory and/or Out of Bed No REE-([facility]-confined to bed) [phone] Calculation Used for Recommendations [facility] Additional Notes Pro needs 2g/kg IBW: 95g/day Fluid needs 1ml/kcal Nutrition Intervention Nutrition Support: Resume Glucerna 1.2 at 50ml/hr Flush with 100ml q4h Kcal 1,440 Protein (gm) 72 Fluid (mL) 966 Goal #1 Resume TF to meet nutrient needs Goal #2 TF to meet at least 80% energy and pro needs Anticipated Discharge Needs: Unable to determine at this time Follow-Up By: 01/01/19 Additional Comments F/U: TF restart
[2019-01-01] MEDS: NORVASC PO SCH (10:30)
--- NOTE | 2019-01-01 10:33 | Progress Note ---
Assessment and Plan - Patient Problems (1) Acute kidney failure with tubular necrosis Current Visit: Yes Status: Acute Plan to address problem: renal function is unchanged. Overall prognosis is poor, poor candidate for renal replacement therapy. Avoid nephrotoxins. pt awaiting PEG/Trach. (2) Acute post-hemorrhagic anemia Current Visit: Yes Status: Acute Plan to address problem: H/H is stable at this time. Continue to monitor, transfuse prn to maintain HgB>7.0 (3) Respiratory failure Current Visit: Yes Status: Acute Plan to address problem: Continues on ventilatory support, and further management per ICU/Pulmonary team. (4) Pericardial effusion without cardiac tamponade Current Visit: Yes Status: Acute Plan to address problem: s/p ECHO with findings not consistent with cardiac tamponade. Will continue to monitor, further recs per cardiology. (5) Encephalopathy Current Visit: Yes Status: Acute Plan to address problem: s/p EEG . Results reviewed. Further management per primary team. Patient remains comatose at this time Subjective Date of service: 01/01/19 Principal diagnosis: Rectal Bleed Interval history: Pt remains intubated, unresponsive. scheduled for PEG/Trach today Objective - Vital Signs Vital signs: Vital Signs - 12hr 12/31/18 12/31/18 01/01/19 23:00 23:30 00:00 Temperature 98.3 F Pulse Rate 67 71 70 Pulse Rate [ Anterior Bilateral Throughout] Pulse Rate [ From Monitor] Pulse Rate [ Throughout] Respiratory 18 18 18 Rate Respiratory Rate [Anterior Bilateral Throughout] Respiratory Rate [ Throughout] Blood Pressure 110/41 110/44 110/41 O2 Sat by Pulse 97 96 96 Oximetry 01/01/19 01/01/19 01/01/19 01:00 01:28 01:43 Temperature Pulse Rate 67 Pulse Rate [ 62 Anterior Bilateral Throughout] Pulse Rate [ From Monitor] Pulse Rate [ 68 70 Throughout] Respiratory 17 Rate Respiratory 18 Rate [Anterior Bilateral Throughout] Respiratory 18 18 Rate [ Throughout] Blood Pressure 115/46 O2 Sat by Pulse 98 Oximetry 01/01/19 01/01/19 01/01/19 02:00 03:01 04:00 Temperature 97.1 F L Pulse Rate 66 66 73 Pulse Rate [ Anterior Bilateral Throughout] Pulse Rate [ From Monitor] Pulse Rate [ Throughout] Respiratory 18 18 Rate Respiratory Rate [Anterior Bilateral Throughout] Respiratory Rate [ Throughout] Blood Pressure 110/37 106/39 108/42 O2 Sat by Pulse 98 96 96 Oximetry 01/01/19 01/01/19 01/01/19 04:01 05:01 06:00 Temperature Pulse Rate 67 73 74 Pulse Rate [ Anterior Bilateral Throughout] Pulse Rate [ From Monitor] Pulse Rate [ Throughout] Respiratory 18 18 19 Rate Respiratory Rate [Anterior Bilateral Throughout] Respiratory Rate [ Throughout] Blood Pressure 108/42 101/38 97/36 O2 Sat by Pulse 98 95 95 Oximetry 01/01/19 01/01/19 01/01/19 07:00 07:45 07:46 Temperature Pulse Rate 61 64 Pulse Rate [ Anterior Bilateral Throughout] Pulse Rate [ From Monitor] Pulse Rate [ 68 Throughout] Respiratory 18 Rate Respiratory Rate [Anterior Bilateral Throughout] Respiratory 18 Rate [ Throughout] Blood Pressure 99/32 95/34 O2 Sat by Pulse 98 98 Oximetry 01/01/19 01/01/19 01/01/19 07:57 08:00 09:01 Temperature 95.9 F L Pulse Rate 61 65 Pulse Rate [ 60 Anterior Bilateral Throughout] Pulse Rate [ 64 From Monitor] Pulse Rate [ 63 Throughout] Respiratory 18 15 Rate Respiratory 18 Rate [Anterior Bilateral Throughout] Respiratory 18 Rate [ Throughout] Blood Pressure 114/39 130/43 O2 Sat by Pulse 97 97 Oximetry - General Appearance General appearance: chronically ill, intubated, comatose EENT: ATNC, mucous membranes moist Neck: no JVD Respiratory: Present: Decreased Breath Sounds Cardiology: regular, S1S2 Gastrointestinal: normoactive bowel sounds Integumentary: no rash, other (+ edema b/l LE ) Neurologic: other (intubated, comatose ) - Lab 01/01/19 04:30 01/01/19 04:30 Most recent lab results Calcium 6.5 mg/dL (8.4-10.2) L 01/01/19 04:30 Phosphorus 7.10 mg/dL (2.5-4.5) H 12/31/18 03:55 Magnesium 2.30 mg/dL (1.7-2.3) 12/31/18 03:55 Medications & Allergies - Medications Allergies/Adverse Reactions: Allergies Penicillins Allergy (Verified 12/08/18 13:13) Hives Home Medications: Home Medications Medication Instructions Recorded Confirmed Last Taken Type ALBUTEROL Inhaler (OR & NICU) 2 puff IH QID PRN #1 inhalation 12/21/16 12/08/18 Unknown Rx [Proair] Albuterol Sulfate [Albuterol 0.63% 0.63 mg IH TID PRN #90 ml 12/21/16 12/08/18 Unknown Rx NEBS] Amlodipine Besylate [Norvasc] 10 mg PO DAILY #90 tablet 12/21/16 12/08/18 Unknown Rx AtorvaSTATin [Lipitor] 20 mg PO QHS #90 tablet 12/21/16 12/08/18 Unknown Rx Hydralazine HCl [Apresoline TAB] 50 mg PO TID #90 tablet 12/21/16 12/08/18 Unknown Rx Metoprolol [Lopressor TAB] 25 mg PO BID #90 tablet 12/21/16 12/08/18 Unknown Rx Promethazine /Codeine 5 ml PO Q6H PRN #100 ml 12/21/16 12/08/18 Unknown Rx [Phenergan/Codeine 6.25-10 mg/5 ml] Active Medications: Generic Name Dose Route Start Last Admin Trade Name Freq PRN Reason Stop Dose Admin Acetaminophen 650 mg 12/09/18 01:00 12/28/18 00:24 Tylenol [place] 650 mg Q4H PRN Administration Pain MILD(1-3)/Fever >100.5/TURNER Albuterol 2.5 mg 12/09/18 00:31 Proventil IH Q4HRT PRN Shortness Of Breath Albuterol/Ipratropium 1 ampul 12/09/18 02:00 01/01/19 07:45 Duoneb *Not For Prn Use* IH 1 ampul Q6HRT KOLE Administration Amlodipine Besylate 10 mg 12/28/18 10:00 12/31/18 10:49 Norvasc PO 10 mg DAILY KOLE Administration Lipase/Protease/Amylase 1 each 12/09/18 04:05 Shakir Pena 10,500 Unit FEEDTUBE PRN PRN For Clogged Feeding Tube Atorvastatin Calcium 20 mg 12/28/18 22:00 12/31/18 22:25 Lipitor PO 20 mg QHS KLOE Administration Dextrose 50 ml 12/24/18 00:42 12/24/18 00:30 D50w (25gm) Syringe IV 50 ml PRN PRN Administration Hypoglycemia Hydralazine HCl 50 mg 12/28/18 08:00 12/31/18 20:43 Apresoline PO 50 mg TID OKLE Administration Hydrophilic Ointment 1 applic 12/14/18 13:00 Vaseline Lip Therapy TP DIRECT PRN Dry tongue Norepinephrine 4 mg in 250 mls @ 7.5 mls/hr 12/18/18 18:00 12/19/18 18:00 Levophed Drip 4 Mg/Ns 250 Ml IV 0 mcg/min TITR KOLE 0 mls/hr Titration Protocol 2 MCG/MIN Insulin Human Lispro 0 unit 12/11/18 12:00 01/01/19 06:10 Humalog SUB-Q Not Given Q6HR [facility] Protocol Lansoprazole 30 mg 12/12/18 10:00 12/31/18 22:25 Prevacid Solutab FEEDTUBE 30 mg BID KOLE Administration Metoprolol Tartrate 25 mg 12/27/18 23:45 12/31/18 17:25 Lopressor PO 25 mg BID@0800,1700 KOLE Administration Multi-Ingred Cream/Lotion/Oil/Oint 1 applic 12/08/18 13:31 Artificial Tears Ophth Oint OU Q4HR PRN Dry Eye(s) Ondansetron HCl 4 mg 12/09/18 00:31 Zofran IV Q8H PRN Nausea And Vomiting Promethazine HCl/Codeine 5 ml 12/27/18 23:49 Phenergan/Codeine 6.25-10 Mg/5ml PO Q6H PRN cough Simple Syrup 15 ml 12/09/18 04:05 Simple Syrup FEEDTUBE PRN PRN Hypoglycemia Simple Syrup 30 ml 12/09/18 04:05 Simple Syrup FEEDTUBE PRN PRN Hypoglycemia Sodium Bicarbonate 325 mg 12/09/18 04:05 Sodium Bicarbonate FEEDTUBE PRN PRN For Clogged Feeding Tube Sodium Chloride 10 ml 12/09/18 10:00 12/31/18 22:25 Sodium Chloride Flush Syringe 10 Ml IV 10 ml BID KOLE Administration Sodium Chloride 10 ml 12/09/18 00:31 12/17/18 10:47 Sodium Chloride Flush Syringe 10 Ml IV 10 ml PRN PRN Administration LINE FLUSH
--- NOTE | 2019-01-01 11:06 | Event Note ---
Date: 01/01/19 Pt was tentatively scheduled for trach/PEG today however platelet count is 42K. Additional platelets need [facility] requested from [facility] and will not be able to be given in time for scheduled procedure. Because this is not an urgent procedure, will cancel and reschedule for Wednesday 01/03. Additional platelets should be transfused day before surgery and will order DDAVP for day of surgery. Notified Dr. Robles and Coreen.
--- NOTE | 2019-01-01 11:21 | Progress Note ---
Assessment and Plan 88 y/o female with acute respiratory failure, altered mental state, presumptive acute renal failure and hypotension with thrombocytopenia and dirty urine analysis. 1. Will order platelet transfusion to be done tomorrow. Order today so that platelets can be here in time. Should try to get patient up over 100k so that if she were to drift down by Sunday she would be greater than 50K. Would also suggest transfusing more the morning of the surgery as well. 2. Patient continues to fail PSV with periods of apnea 3. No new notes from Neurology in the last 48 hours. CCT 31 minutes. Subjective Date of service: 01/01/19 Principal diagnosis: Rectal Bleed Interval history: No acute events. Reviewed Surgery note from this am. Objective Vital Signs - 12hr 12/31/18 01/01/19 01/01/19 23:30 00:00 01:00 Temperature 98.3 F Pulse Rate 71 70 67 Pulse Rate [ Anterior Bilateral Throughout] Pulse Rate [ From Monitor] Pulse Rate [ Throughout] Respiratory 18 18 17 Rate Respiratory Rate [Anterior Bilateral Throughout] Respiratory Rate [ Throughout] Blood Pressure 110/44 110/41 115/46 O2 Sat by Pulse 96 96 98 Oximetry 01/01/19 01/01/19 01/01/19 01:28 01:43 02:00 Temperature Pulse Rate 66 Pulse Rate [ 62 Anterior Bilateral Throughout] Pulse Rate [ From Monitor] Pulse Rate [ 68 70 Throughout] Respiratory 18 Rate Respiratory 18 Rate [Anterior Bilateral Throughout] Respiratory 18 18 Rate [ Throughout] Blood Pressure 110/37 O2 Sat by Pulse 98 Oximetry 01/01/19 01/01/19 01/01/19 03:01 04:00 04:01 Temperature 97.1 F L Pulse Rate 66 73 67 Pulse Rate [ Anterior Bilateral Throughout] Pulse Rate [ From Monitor] Pulse Rate [ Throughout] Respiratory 18 18 Rate Respiratory Rate [Anterior Bilateral Throughout] Respiratory Rate [ Throughout] Blood Pressure 106/39 108/42 108/42 O2 Sat by Pulse 96 96 98 Oximetry 01/01/19 01/01/19 01/01/19 05:01 06:00 07:00 Temperature Pulse Rate 73 74 61 Pulse Rate [ Anterior Bilateral Throughout] Pulse Rate [ From Monitor] Pulse Rate [ Throughout] Respiratory 18 19 18 Rate Respiratory Rate [Anterior Bilateral Throughout] Respiratory Rate [ Throughout] Blood Pressure 101/38 97/36 99/32 O2 Sat by Pulse 95 95 98 Oximetry 01/01/19 01/01/19 01/01/19 07:45 07:46 07:57 Temperature Pulse Rate 64 Pulse Rate [ 60 Anterior Bilateral Throughout] Pulse Rate [ From Monitor] Pulse Rate [ 68 63 Throughout] Respiratory Rate Respiratory 18 Rate [Anterior Bilateral Throughout] Respiratory 18 18 Rate [ Throughout] Blood Pressure 95/34 O2 Sat by Pulse 98 Oximetry 01/01/19 01/01/19 08:00 09:01 Temperature 95.9 F L Pulse Rate 61 65 Pulse Rate [ Anterior Bilateral Throughout] Pulse Rate [ 64 From Monitor] Pulse Rate [ Throughout] Respiratory 18 15 Rate Respiratory Rate [Anterior Bilateral Throughout] Respiratory Rate [ Throughout] Blood Pressure 114/39 130/43 O2 Sat by Pulse 97 97 Oximetry Constitutional: no acute distress, comatose, other (on vent cmv) Eyes: non-icteric ENT: oropharynx moist, other (ETT in position, large/edematous tongue) Neck: supple Effort: normal Ascultation: Bilateral: clear, diminished breath sounds, other (coarse BS bilaterally) Cardiovascular: regular rate and rhythm, other (pacemaker rhythm) Gastrointestinal: normoactive bowel sounds, non-distended Integumentary: normal Extremities: no cyanosis, no edema, pink and warm Neurologic: pupils equal and round, other (comatose, flaccid extremities, does not track or follow commands, + Cough, Apnea on PSV) Psychiatric: other (unable to assess) CBC and BMP: 01/01/19 04:30 01/01/19 04:30 ABG, PT/INR, D-dimer: ABG POC ABG pH 7.325 (7.35-7.45) L 12/15/18 03:37 POC ABG pCO2 28.6 (35-45) L 12/15/18 03:37 POC ABG pO2 105 (80-105) 12/15/18 03:37 POC ABG HCO3 14.9 12/15/18 03:37 POC ABG Total CO2 16 12/15/18 03:37 POC ABG O2 Sat 98 12/15/18 03:37 PT/INR, D-dimer PT 20.2 Sec. (12.2-14.9) H 12/12/18 08:00 INR 1.61 (0.87-1.13) H 12/12/18 08:00 Abnormal lab findings: Abnormal Labs 12/08/18 12/08/18 12/08/18 12:58 13:40 13:40 WBC RBC Hgb Hct MCV MCH RDW Plt Count Lymph % (Auto) Cotton % (Auto) Lymph # Seg Neutrophils % Seg Neuts % (Manual) Lymphocytes % (Manual) Monocytes % (Manual) Nucleated RBC % Seg Neutrophils # Seg Neutrophils # Man Lymphocytes # (Manual) Monocytes # (Manual) PT INR POC ABG pH POC ABG pCO2 POC ABG pO2 Sodium Potassium Chloride Carbon Dioxide BUN Creatinine Glucose POC Glucose 143 H Lactic Acid Calcium Phosphorus Magnesium Total Bilirubin AST Alkaline Phosphatase Total Creatine Kinase C-Reactive Protein Total Protein Albumin TSH Free T4 Urine WBC (Auto) 157.0 H Crossmatch See Detail 12/08/18 12/08/18 12/08/18 13:40 13:40 13:40 WBC RBC 3.06 L Hgb 6.8 L Hct 21.1 L MCV 69 L MCH 22 L RDW 16.2 H Plt Count 56 L Lymph % (Auto) Cotton % (Auto) Lymph # Seg Neutrophils % Seg Neuts % (Manual) Lymphocytes % (Manual) 2.0 L Monocytes % (Manual) Nucleated RBC % Seg Neutrophils # Seg Neutrophils # Man Lymphocytes # (Manual) 0.2 L Monocytes # (Manual) PT INR POC ABG pH POC ABG pCO2 POC ABG pO2 Sodium Potassium 3.2 L Chloride Carbon Dioxide 18 L BUN 64 H Creatinine 1.5 H Glucose 145 H POC Glucose Lactic Acid 4.00 H* Calcium 7.7 L Phosphorus Magnesium Total Bilirubin AST Alkaline Phosphatase Total Creatine Kinase 258 H C-Reactive Protein Total Protein 4.6 L Albumin 1.8 L TSH Free T4 Urine WBC (Auto) Crossmatch 12/08/18 12/08/18 12/08/18 14:29 15:21 16:06 WBC RBC Hgb Hct MCV MCH RDW Plt Count Lymph % (Auto) Cotton % (Auto) Lymph # Seg Neutrophils % Seg Neuts % (Manual) Lymphocytes % (Manual) Monocytes % (Manual) Nucleated RBC % Seg Neutrophils # Seg Neutrophils # Man Lymphocytes # (Manual) Monocytes # (Manual) PT 20.5 H INR 1.64 H POC ABG pH POC ABG pCO2 34.2 L POC ABG pO2 465 H Sodium Potassium Chloride Carbon Dioxide BUN Creatinine Glucose POC Glucose Lactic Acid 3.00 H* Calcium Phosphorus Magnesium Total Bilirubin AST Alkaline Phosphatase Total Creatine Kinase C-Reactive Protein Total Protein Albumin TSH Free T4 Urine WBC (Auto) Crossmatch 12/09/18 12/09/18 12/09/18 02:31 05:36 05:36 WBC 14.5 H RBC Hgb Hct MCV 75 L MCH 25 L RDW 20.4 H Plt Count 68 L Lymph % (Auto) Cotton % (Auto) Lymph # Seg Neutrophils % Seg Neuts % (Manual) 81.0 H Lymphocytes % (Manual) 1.0 L Monocytes % (Manual) Nucleated RBC % Seg Neutrophils # Seg Neutrophils # Man 11.7 H Lymphocytes # (Manual) 0.1 L Monocytes # (Manual) PT INR POC ABG pH POC ABG pCO2 POC ABG pO2 Sodium Potassium Chloride 107.6 H Carbon Dioxide 18 L BUN 75 H Creatinine 1.9 H Glucose 136 H POC Glucose 152 H Lactic Acid Calcium 7.9 L Phosphorus Magnesium Total Bilirubin 1.60 H AST 44 H Alkaline Phosphatase Total Creatine Kinase C-Reactive Protein Total Protein 5.2 L Albumin 2.4 L TSH Free T4 Urine WBC (Auto) Crossmatch 12/09/18 12/09/18 12/09/18 05:43 10:47 13:46 WBC RBC Hgb Hct MCV MCH RDW Plt Count Lymph % (Auto) Cotton % (Auto) Lymph # Seg Neutrophils % Seg Neuts % (Manual) Lymphocytes % (Manual) Monocytes % (Manual) Nucleated RBC % Seg Neutrophils # Seg Neutrophils # Man Lymphocytes # (Manual) Monocytes # (Manual) PT INR POC ABG pH 7.308 L POC ABG pCO2 POC ABG pO2 183 H Sodium Potassium Chloride Carbon Dioxide BUN Creatinine Glucose POC Glucose 150 H 162 H Lactic Acid Calcium Phosphorus Magnesium Total Bilirubin AST Alkaline Phosphatase Total Creatine Kinase C-Reactive Protein Total Protein Albumin TSH Free T4 Urine WBC (Auto) Crossmatch 12/09/18 12/09/18 12/09/18 15:54 15:54 16:40 WBC RBC Hgb Hct MCV MCH RDW Plt Count Lymph % (Auto) Cotton % (Auto) Lymph # Seg Neutrophils % Seg Neuts % (Manual) Lymphocytes % (Manual) Monocytes % (Manual) Nucleated RBC % Seg Neutrophils # Seg Neutrophils # Man Lymphocytes # (Manual) Monocytes # (Manual) PT INR POC ABG pH POC ABG pCO2 POC ABG pO2 Sodium Potassium Chloride Carbon Dioxide BUN Creatinine Glucose POC Glucose 197 H Lactic Acid Calcium Phosphorus Magnesium Total Bilirubin AST Alkaline Phosphatase Total Creatine Kinase C-Reactive Protein Total Protein Albumin TSH 0.268 L Free T4 0.58 L Urine WBC (Auto) Crossmatch 12/09/18 12/09/18 12/09/18 18:18 18:18 21:51 WBC RBC Hgb Hct MCV MCH RDW Plt Count Lymph % (Auto) Cotton % (Auto) Lymph # Seg Neutrophils % Seg Neuts % (Manual) Lymphocytes % (Manual) Monocytes % (Manual) Nucleated RBC % Seg Neutrophils # Seg Neutrophils # Man Lymphocytes # (Manual) Monocytes # (Manual) PT INR POC ABG pH POC ABG pCO2 POC ABG pO2 Sodium Potassium Chloride 108.2 H Carbon Dioxide 16 L BUN 89 H Creatinine 2.3 H Glucose 180 H POC Glucose 198 H Lactic Acid Calcium 7.9 L Phosphorus Magnesium Total Bilirubin AST Alkaline Phosphatase Total Creatine Kinase C-Reactive Protein 19.60 H Total Protein Albumin TSH Free T4 Urine WBC (Auto) Crossmatch 12/10/18 12/10/18 12/10/18 01:59 04:14 04:38 WBC 11.5 H RBC Hgb Hct MCV 75 L MCH 25 L RDW 21.1 H Plt Count 81 L Lymph % (Auto) 5.6 L Cotton % (Auto) Lymph # 0.6 L Seg Neutrophils % 89.8 H Seg Neuts % (Manual) Lymphocytes % (Manual) Monocytes % (Manual) Nucleated RBC % Seg Neutrophils # 10.3 H Seg Neutrophils # Man Lymphocytes # (Manual) Monocytes # (Manual) PT INR POC ABG pH 7.273 L POC ABG pCO2 32.1 L POC ABG pO2 161 H Sodium Potassium Chloride Carbon Dioxide BUN Creatinine Glucose POC Glucose 219 H Lactic Acid Calcium Phosphorus Magnesium Total Bilirubin AST Alkaline Phosphatase Total Creatine Kinase C-Reactive Protein Total Protein Albumin TSH Free T4 Urine WBC (Auto) Crossmatch 12/10/18 12/10/18 12/10/18 04:38 05:07 07:26 WBC RBC Hgb Hct MCV MCH RDW Plt Count Lymph % (Auto) Cotton % (Auto) Lymph # Seg Neutrophils % Seg Neuts % (Manual) Lymphocytes % (Manual) Monocytes % (Manual) Nucleated RBC % Seg Neutrophils # Seg Neutrophils # Man Lymphocytes # (Manual) Monocytes # (Manual) PT INR POC ABG pH POC ABG pCO2 POC ABG pO2 Sodium Potassium Chloride 112.5 H Carbon Dioxide 14 L BUN 94 H Creatinine 2.4 H Glucose 207 H POC Glucose 221 H 212 H Lactic Acid Calcium 7.7 L Phosphorus Magnesium Total Bilirubin AST Alkaline Phosphatase Total Creatine Kinase C-Reactive Protein Total Protein Albumin TSH Free T4 Urine WBC (Auto) Crossmatch 12/10/18 12/10/18 12/10/18 10:40 11:15 14:21 WBC RBC Hgb Hct MCV MCH RDW Plt Count Lymph % (Auto) Cotton % (Auto) Lymph # Seg Neutrophils % Seg Neuts % (Manual) Lymphocytes % (Manual) Monocytes % (Manual) Nucleated RBC % Seg Neutrophils # Seg Neutrophils # Man Lymphocytes # (Manual) Monocytes # (Manual) PT 21.4 H INR 1.73 H POC ABG pH 7.214 L POC ABG pCO2 32.8 L POC ABG pO2 Sodium Potassium Chloride Carbon Dioxide BUN Creatinine Glucose POC Glucose 227 H Lactic Acid Calcium Phosphorus Magnesium Total Bilirubin AST Alkaline Phosphatase Total Creatine Kinase C-Reactive Protein Total Protein Albumin TSH Free T4 Urine WBC (Auto) Crossmatch 12/10/18 12/10/18 12/11/18 15:47 22:38 03:36 WBC RBC Hgb Hct MCV MCH RDW Plt Count Lymph % (Auto) Cotton % (Auto) Lymph # Seg Neutrophils % Seg Neuts % (Manual) Lymphocytes % (Manual) Monocytes % (Manual) Nucleated RBC % Seg Neutrophils # Seg Neutrophils # Man Lymphocytes # (Manual) Monocytes # (Manual) PT INR POC ABG pH POC ABG pCO2 26.2 L POC ABG pO2 138 H Sodium Potassium Chloride Carbon Dioxide BUN Creatinine Glucose POC Glucose 202 H 259 H Lactic Acid Calcium Phosphorus Magnesium Total Bilirubin AST Alkaline Phosphatase Total Creatine Kinase C-Reactive Protein Total Protein Albumin TSH Free T4 Urine WBC (Auto) Crossmatch 12/11/18 12/11/18 12/11/18 04:12 05:00 06:19 WBC RBC Hgb Hct MCV MCH RDW Plt Count Lymph % (Auto) Cotton % (Auto) Lymph # Seg Neutrophils % Seg Neuts % (Manual) Lymphocytes % (Manual) Monocytes % (Manual) Nucleated RBC % Seg Neutrophils # Seg Neutrophils # Man Lymphocytes # (Manual) Monocytes # (Manual) PT 19.5 H INR 1.54 H POC ABG pH POC ABG pCO2 24.6 L POC ABG pO2 119 H Sodium Potassium Chloride Carbon Dioxide BUN Creatinine Glucose POC Glucose 174 H Lactic Acid Calcium Phosphorus Magnesium Total Bilirubin AST Alkaline Phosphatase Total Creatine Kinase C-Reactive Protein Total Protein Albumin TSH Free T4 Urine WBC (Auto) Crossmatch 12/11/18 12/11/18 12/11/18 11:10 11:10 18:10 WBC 14.3 H RBC Hgb Hct MCV 73 L MCH 24 L RDW 21.5 H Plt Count Lymph % (Auto) Cotton % (Auto) Lymph # Seg Neutrophils % Seg Neuts % (Manual) Lymphocytes % (Manual) Monocytes % (Manual) Nucleated RBC % Seg Neutrophils # Seg Neutrophils # Man Lymphocytes # (Manual) Monocytes # (Manual) PT INR POC ABG pH POC ABG pCO2 POC ABG pO2 Sodium Potassium Chloride 110.5 H Carbon Dioxide 15 L BUN 101 H Creatinine 2.4 H Glucose 119 H POC Glucose 147 H Lactic Acid Calcium 7.7 L Phosphorus Magnesium Total Bilirubin AST Alkaline Phosphatase Total Creatine Kinase C-Reactive Protein Total Protein Albumin TSH Free T4 Urine WBC (Auto) Crossmatch 12/11/18 12/12/18 12/12/18 23:25 05:37 06:03 WBC RBC Hgb Hct MCV MCH RDW Plt Count Lymph % (Auto) Cotton % (Auto) Lymph # Seg Neutrophils % Seg Neuts % (Manual) Lymphocytes % (Manual) Monocytes % (Manual) Nucleated RBC % Seg Neutrophils # Seg Neutrophils # Man Lymphocytes # (Manual) Monocytes # (Manual) PT INR POC ABG pH 7.346 L POC ABG pCO2 28.3 L POC ABG pO2 120 H Sodium Potassium Chloride Carbon Dioxide BUN Creatinine Glucose POC Glucose 143 H 154 H Lactic Acid Calcium Phosphorus Magnesium Total Bilirubin AST Alkaline Phosphatase Total Creatine Kinase C-Reactive Protein Total Protein Albumin TSH Free T4 Urine WBC (Auto) Crossmatch 12/12/18 12/12/18 12/12/18 08:00 08:00 08:00 WBC 16.2 H RBC Hgb Hct MCV 74 L MCH 25 L RDW 21.9 H Plt Count 21 L Lymph % (Auto) Cotton % (Auto) Lymph # Seg Neutrophils % Seg Neuts % (Manual) Lymphocytes % (Manual) Monocytes % (Manual) Nucleated RBC % Seg Neutrophils # Seg Neutrophils # Man Lymphocytes # (Manual) Monocytes # (Manual) PT 20.2 H INR 1.61 H POC ABG pH POC ABG pCO2 POC ABG pO2 Sodium Potassium Chloride 107.4 H Carbon Dioxide 16 L BUN 101 H Creatinine 2.3 H Glucose 169 H POC Glucose Lactic Acid Calcium 8.2 L Phosphorus Magnesium Total Bilirubin AST Alkaline Phosphatase Total Creatine Kinase C-Reactive Protein Total Protein Albumin TSH Free T4 Urine WBC (Auto) Crossmatch 12/12/18 12/12/18 12/13/18 12:59 18:01 04:28 WBC 18.6 H RBC Hgb Hct MCV 74 L MCH 24 L RDW 21.8 H Plt Count 34 L Lymph % (Auto) Cotton % (Auto) Lymph # Seg Neutrophils % Seg Neuts % (Manual) 97.0 H Lymphocytes % (Manual) 2.0 L Monocytes % (Manual) Nucleated RBC % 1.0 H Seg Neutrophils # Seg Neutrophils # Man 18.0 H Lymphocytes # (Manual) 0.4 L Monocytes # (Manual) PT INR POC ABG pH POC ABG pCO2 POC ABG pO2 Sodium Potassium Chloride Carbon Dioxide BUN Creatinine Glucose POC Glucose 158 H 123 H Lactic Acid Calcium Phosphorus Magnesium Total Bilirubin AST Alkaline Phosphatase Total Creatine Kinase C-Reactive Protein Total Protein Albumin TSH Free T4 Urine WBC (Auto) Crossmatch 12/13/18 12/13/18 12/13/18 04:28 04:45 19:17 WBC RBC Hgb Hct MCV MCH RDW Plt Count Lymph % (Auto) Cotton % (Auto) Lymph # Seg Neutrophils % Seg Neuts % (Manual) Lymphocytes % (Manual) Monocytes % (Manual) Nucleated RBC % Seg Neutrophils # Seg Neutrophils # Man Lymphocytes # (Manual) Monocytes # (Manual) PT INR POC ABG pH 7.327 L POC ABG pCO2 31.1 L POC ABG pO2 136 H Sodium Potassium Chloride 112.0 H Carbon Dioxide 17 L BUN 97 H Creatinine 2.2 H Glucose POC Glucose 106 H Lactic Acid Calcium 8.1 L Phosphorus Magnesium Total Bilirubin AST Alkaline Phosphatase Total Creatine Kinase C-Reactive Protein Total Protein Albumin TSH Free T4 Urine WBC (Auto) Crossmatch 12/13/18 12/14/18 12/14/18 23:24 03:35 03:35 WBC 22.0 H RBC Hgb Hct MCV 75 L MCH 24 L RDW 22.2 H Plt Count 44 L Lymph % (Auto) Cotton % (Auto) Lymph # Seg Neutrophils % Seg Neuts % (Manual) 96.0 H Lymphocytes % (Manual) 3.0 L Monocytes % (Manual) Nucleated RBC % Seg Neutrophils # Seg Neutrophils # Man 21.1 H Lymphocytes # (Manual) 0.7 L Monocytes # (Manual) PT INR POC ABG pH POC ABG pCO2 POC ABG pO2 Sodium 136 L Potassium Chloride 107.2 H Carbon Dioxide 15 L BUN 87 H Creatinine 1.7 H Glucose 156 H POC Glucose 108 H Lactic Acid Calcium 7.7 L Phosphorus Magnesium Total Bilirubin AST Alkaline Phosphatase Total Creatine Kinase C-Reactive Protein Total Protein Albumin TSH Free T4 Urine WBC (Auto) Crossmatch 12/14/18 12/14/18 12/14/18 04:58 05:37 12:10 WBC RBC Hgb Hct MCV MCH RDW Plt Count Lymph % (Auto) Cotton % (Auto) Lymph # Seg Neutrophils % Seg Neuts % (Manual) Lymphocytes % (Manual) Monocytes % (Manual) Nucleated RBC % Seg Neutrophils # Seg Neutrophils # Man Lymphocytes # (Manual) Monocytes # (Manual) PT INR POC ABG pH 7.301 L POC ABG pCO2 32.6 L POC ABG pO2 138 H Sodium Potassium Chloride Carbon Dioxide BUN Creatinine Glucose POC Glucose 178 H 208 H Lactic Acid Calcium Phosphorus Magnesium Total Bilirubin AST Alkaline Phosphatase Total Creatine Kinase C-Reactive Protein Total Protein Albumin TSH Free T4 Urine WBC (Auto) Crossmatch 12/14/18 12/14/18 12/15/18 17:44 23:16 03:37 WBC RBC Hgb Hct MCV MCH RDW Plt Count Lymph % (Auto) Cotton % (Auto) Lymph # Seg Neutrophils % Seg Neuts % (Manual) Lymphocytes % (Manual) Monocytes % (Manual) Nucleated RBC % Seg Neutrophils # Seg Neutrophils # Man Lymphocytes # (Manual) Monocytes # (Manual) PT INR POC ABG pH 7.325 L POC ABG pCO2 28.6 L POC ABG pO2 Sodium Potassium Chloride Carbon Dioxide BUN Creatinine Glucose POC Glucose 172 H 123 H Lactic Acid Calcium Phosphorus Magnesium Total Bilirubin AST Alkaline Phosphatase Total Creatine Kinase C-Reactive Protein Total Protein Albumin TSH Free T4 Urine WBC (Auto) Crossmatch 12/15/18 12/15/18 12/15/18 05:30 05:30 05:43 WBC 20.1 H RBC Hgb 9.5 L Hct 29.2 L MCV 74 L MCH 24 L RDW 22.7 H Plt Count 48 L Lymph % (Auto) Cotton % (Auto) Lymph # Seg Neutrophils % Seg Neuts % (Manual) 96.0 H Lymphocytes % (Manual) 1.0 L Monocytes % (Manual) Nucleated RBC % Seg Neutrophils # Seg Neutrophils # Man 19.3 H Lymphocytes # (Manual) 0.2 L Monocytes # (Manual) PT INR POC ABG pH POC ABG pCO2 POC ABG pO2 Sodium Potassium Chloride 110.8 H Carbon Dioxide 17 L BUN 83 H Creatinine 1.6 H Glucose 150 H POC Glucose 151 H Lactic Acid Calcium 7.7 L Phosphorus Magnesium Total Bilirubin AST Alkaline Phosphatase Total Creatine Kinase C-Reactive Protein Total Protein Albumin TSH Free T4 Urine WBC (Auto) Crossmatch 12/15/18 12/15/18 12/16/18 12:56 18:21 00:10 WBC RBC Hgb Hct MCV MCH RDW Plt Count Lymph % (Auto) Cotton % (Auto) Lymph # Seg Neutrophils % Seg Neuts % (Manual) Lymphocytes % (Manual) Monocytes % (Manual) Nucleated RBC % Seg Neutrophils # Seg Neutrophils # Man Lymphocytes # (Manual) Monocytes # (Manual) PT INR POC ABG pH POC ABG pCO2 POC ABG pO2 Sodium Potassium Chloride Carbon Dioxide BUN Creatinine Glucose POC Glucose 190 H 143 H 174 H Lactic Acid Calcium Phosphorus Magnesium Total Bilirubin AST Alkaline Phosphatase Total Creatine Kinase C-Reactive Protein Total Protein Albumin TSH Free T4 Urine WBC (Auto) Crossmatch 12/16/18 12/16/18 12/16/18 05:24 05:30 05:30 WBC 17.1 H RBC Hgb 9.1 L Hct 28.8 L MCV 76 L MCH 24 L RDW 23.5 H Plt Count 37 L Lymph % (Auto) Cotton % (Auto) Lymph # Seg Neutrophils % Seg Neuts % (Manual) Lymphocytes % (Manual) 9.0 L Monocytes % (Manual) 9.0 H Nucleated RBC % Seg Neutrophils # Seg Neutrophils # Man 9.6 H Lymphocytes # (Manual) Monocytes # (Manual) 1.5 H PT INR POC ABG pH POC ABG pCO2 POC ABG pO2 Sodium Potassium Chloride 110.8 H Carbon Dioxide 15 L BUN 81 H Creatinine 1.6 H Glucose 161 H POC Glucose 154 H Lactic Acid Calcium 7.6 L Phosphorus Magnesium Total Bilirubin AST Alkaline Phosphatase Total Creatine Kinase C-Reactive Protein Total Protein Albumin TSH Free T4 Urine WBC (Auto) Crossmatch 12/16/18 12/16/18 12/16/18 12:31 17:42 21:56 WBC RBC Hgb Hct MCV MCH RDW Plt Count Lymph % (Auto) Cotton % (Auto) Lymph # Seg Neutrophils % Seg Neuts % (Manual) Lymphocytes % (Manual) Monocytes % (Manual) Nucleated RBC % Seg Neutrophils # Seg Neutrophils # Man Lymphocytes # (Manual) Monocytes # (Manual) PT INR POC ABG pH POC ABG pCO2 POC ABG pO2 Sodium Potassium Chloride Carbon Dioxide BUN Creatinine Glucose POC Glucose 172 H 173 H 118 H Lactic Acid Calcium Phosphorus Magnesium Total Bilirubin AST Alkaline Phosphatase Total Creatine Kinase C-Reactive Protein Total Protein Albumin TSH Free T4 Urine WBC (Auto) Crossmatch 12/16/18 12/17/18 12/17/18 23:38 04:24 04:24 WBC 19.2 H RBC Hgb 9.5 L Hct 29.7 L MCV 76 L MCH 24 L RDW 24.4 H Plt Count 26 L Lymph % (Auto) Cotton % (Auto) Lymph # Seg Neutrophils % Seg Neuts % (Manual) Lymphocytes % (Manual) 6.0 L Monocytes % (Manual) Nucleated RBC % Seg Neutrophils # Seg Neutrophils # Man 13.1 H Lymphocytes # (Manual) Monocytes # (Manual) PT INR POC ABG pH POC ABG pCO2 POC ABG pO2 Sodium 134 L Potassium Chloride 110.0 H Carbon Dioxide 14 L BUN 83 H Creatinine 1.6 H Glucose POC Glucose 109 H Lactic Acid Calcium 7.8 L Phosphorus Magnesium Total Bilirubin AST Alkaline Phosphatase Total Creatine Kinase C-Reactive Protein Total Protein Albumin TSH Free T4 Urine WBC (Auto) Crossmatch 12/17/18 12/17/18 12/18/18 06:42 17:49 00:40 WBC RBC Hgb Hct MCV MCH RDW Plt Count Lymph % (Auto) Cotton % (Auto) Lymph # Seg Neutrophils % Seg Neuts % (Manual) Lymphocytes % (Manual) Monocytes % (Manual) Nucleated RBC % Seg Neutrophils # Seg Neutrophils # Man Lymphocytes # (Manual) Monocytes # (Manual) PT INR POC ABG pH POC ABG pCO2 POC ABG pO2 Sodium Potassium Chloride 113.1 H Carbon Dioxide 13 L BUN 82 H Creatinine 1.6 H Glucose POC Glucose 66 L 109 H Lactic Acid Calcium 8.0 L Phosphorus Magnesium Total Bilirubin AST Alkaline Phosphatase Total Creatine Kinase C-Reactive Protein Total Protein Albumin TSH Free T4 Urine WBC (Auto) Crossmatch 12/18/18 12/18/18 12/18/18 04:08 04:08 12:45 WBC 26.5 H RBC 3.63 L Hgb 8.7 L Hct 26.8 L MCV 74 L MCH 24 L RDW 23.3 H Plt Count 24 L Lymph % (Auto) Cotton % (Auto) Lymph # Seg Neutrophils % Seg Neuts % (Manual) Lymphocytes % (Manual) Monocytes % (Manual) Nucleated RBC % Seg Neutrophils # Seg Neutrophils # Man Lymphocytes # (Manual) Monocytes # (Manual) PT INR POC ABG pH POC ABG pCO2 POC ABG pO2 Sodium Potassium Chloride 114.3 H Carbon Dioxide 16 L BUN 82 H Creatinine 1.7 H Glucose POC Glucose 117 H Lactic Acid Calcium 7.8 L Phosphorus 5.10 H Magnesium Total Bilirubin AST Alkaline Phosphatase Total Creatine Kinase C-Reactive Protein Total Protein Albumin TSH Free T4 Urine WBC (Auto) Crossmatch 12/18/18 12/18/18 12/19/18 17:42 23:39 04:22 WBC 20.4 H RBC 3.01 L Hgb 7.2 L Hct 22.6 L MCV 75 L MCH 24 L RDW 24.5 H Plt Count 52 L D Lymph % (Auto) Cotton % (Auto) Lymph # Seg Neutrophils % Seg Neuts % (Manual) Lymphocytes % (Manual) Monocytes % (Manual) Nucleated RBC % Seg Neutrophils # Seg Neutrophils # Man Lymphocytes # (Manual) Monocytes # (Manual) PT INR POC ABG pH POC ABG pCO2 POC ABG pO2 Sodium Potassium Chloride Carbon Dioxide BUN Creatinine Glucose POC Glucose 121 H 184 H Lactic Acid Calcium Phosphorus Magnesium Total Bilirubin AST Alkaline Phosphatase Total Creatine Kinase C-Reactive Protein Total Protein Albumin TSH Free T4 Urine WBC (Auto) Crossmatch 12/19/18 12/19/18 12/19/18 04:22 12:43 18:12 WBC RBC Hgb Hct MCV MCH RDW Plt Count Lymph % (Auto) Cotton % (Auto) Lymph # Seg Neutrophils % Seg Neuts % (Manual) Lymphocytes % (Manual) Monocytes % (Manual) Nucleated RBC % Seg Neutrophils # Seg Neutrophils # Man Lymphocytes # (Manual) Monocytes # (Manual) PT INR POC ABG pH POC ABG pCO2 POC ABG pO2 Sodium Potassium Chloride 112.9 H Carbon Dioxide 15 L BUN 76 H Creatinine 1.8 H Glucose 107 H POC Glucose 141 H 227 H Lactic Acid Calcium 7.4 L Phosphorus Magnesium Total Bilirubin AST Alkaline Phosphatase Total Creatine Kinase C-Reactive Protein Total Protein Albumin TSH Free T4 Urine WBC (Auto) Crossmatch 12/19/18 12/19/18 12/20/18 23:55 Unknown 03:07 WBC 15.7 H RBC 2.92 L Hgb 7.2 L 7.1 L Hct 22.2 L 21.6 L MCV 74 L MCH 24 L RDW 24.3 H Plt Count 23 L Lymph % (Auto) Cotton % (Auto) Lymph # Seg Neutrophils % Seg Neuts % (Manual) Lymphocytes % (Manual) Monocytes % (Manual) Nucleated RBC % Seg Neutrophils # Seg Neutrophils # Man Lymphocytes # (Manual) Monocytes # (Manual) PT INR POC ABG pH POC ABG pCO2 POC ABG pO2 Sodium Potassium Chloride Carbon Dioxide BUN Creatinine Glucose POC Glucose 174 H Lactic Acid Calcium Phosphorus Magnesium Total Bilirubin AST Alkaline Phosphatase Total Creatine Kinase C-Reactive Protein Total Protein Albumin TSH Free T4 Urine WBC (Auto) Crossmatch 12/20/18 12/20/18 12/20/18 03:07 05:20 11:00 WBC RBC Hgb Hct MCV MCH RDW Plt Count Lymph % (Auto) Cotton % (Auto) Lymph # Seg Neutrophils % Seg Neuts % (Manual) Lymphocytes % (Manual) Monocytes % (Manual) Nucleated RBC % Seg Neutrophils # Seg Neutrophils # Man Lymphocytes # (Manual) Monocytes # (Manual) PT INR POC ABG pH POC ABG pCO2 POC ABG pO2 Sodium 136 L Potassium Chloride Carbon Dioxide 20 L BUN 79 H Creatinine 2.1 H Glucose 141 H POC Glucose 210 H Lactic Acid Calcium 7.5 L Phosphorus Magnesium Total Bilirubin AST Alkaline Phosphatase Total Creatine Kinase C-Reactive Protein Total Protein Albumin TSH Free T4 Urine WBC (Auto) Crossmatch See Detail 12/20/18 12/20/18 12/21/18 11:40 17:51 00:33 WBC RBC Hgb Hct MCV MCH RDW Plt Count Lymph % (Auto) Cotton % (Auto) Lymph # Seg Neutrophils % Seg Neuts % (Manual) Lymphocytes % (Manual) Monocytes % (Manual) Nucleated RBC % Seg Neutrophils # Seg Neutrophils # Man Lymphocytes # (Manual) Monocytes # (Manual) PT INR POC ABG pH POC ABG pCO2 POC ABG pO2 Sodium Potassium Chloride Carbon Dioxide BUN Creatinine Glucose POC Glucose 183 H 150 H 119 H Lactic Acid Calcium Phosphorus Magnesium Total Bilirubin AST Alkaline Phosphatase Total Creatine Kinase C-Reactive Protein Total Protein Albumin TSH Free T4 Urine WBC (Auto) Crossmatch 12/21/18 12/21/18 12/21/18 05:05 07:19 07:19 WBC 11.9 H RBC 2.83 L Hgb 6.9 L Hct 20.7 L MCV 73 L MCH 24 L RDW 23.9 H Plt Count 11 L* Lymph % (Auto) Cotton % (Auto) Lymph # Seg Neutrophils % Seg Neuts % (Manual) Lymphocytes % (Manual) Monocytes % (Manual) Nucleated RBC % Seg Neutrophils # Seg Neutrophils # Man Lymphocytes # (Manual) Monocytes # (Manual) PT INR POC ABG pH POC ABG pCO2 POC ABG pO2 Sodium 135 L Potassium Chloride Carbon Dioxide 21 L BUN 78 H Creatinine 2.3 H Glucose 143 H POC Glucose 165 H Lactic Acid Calcium 7.3 L Phosphorus Magnesium Total Bilirubin AST Alkaline Phosphatase Total Creatine Kinase C-Reactive Protein Total Protein Albumin TSH Free T4 Urine WBC (Auto) Crossmatch 12/21/18 12/21/18 12/21/18 11:55 17:39 18:00 WBC RBC Hgb 7.9 L Hct 23.8 L MCV MCH RDW Plt Count Lymph % (Auto) Cotton % (Auto) Lymph # Seg Neutrophils % Seg Neuts % (Manual) Lymphocytes % (Manual) Monocytes % (Manual) Nucleated RBC % Seg Neutrophils # Seg Neutrophils # Man Lymphocytes # (Manual) Monocytes # (Manual) PT INR POC ABG pH POC ABG pCO2 POC ABG pO2 Sodium Potassium Chloride Carbon Dioxide BUN Creatinine Glucose POC Glucose 125 H 108 H Lactic Acid Calcium Phosphorus Magnesium Total Bilirubin AST Alkaline Phosphatase Total Creatine Kinase C-Reactive Protein Total Protein Albumin TSH Free T4 Urine WBC (Auto) Crossmatch 12/21/18 12/22/18 12/22/18 23:55 05:35 05:35 WBC 11.8 H RBC Hgb 9.4 L Hct 28.3 L MCV 76 L MCH 25 L RDW 24.5 H Plt Count 26 L D Lymph % (Auto) Cotton % (Auto) Lymph # Seg Neutrophils % Seg Neuts % (Manual) Lymphocytes % (Manual) Monocytes % (Manual) Nucleated RBC % Seg Neutrophils # Seg Neutrophils # Man Lymphocytes # (Manual) Monocytes # (Manual) PT INR POC ABG pH POC ABG pCO2 POC ABG pO2 Sodium 132 L Potassium Chloride Carbon Dioxide 21 L BUN 79 H Creatinine 2.3 H Glucose 131 H POC Glucose 126 H Lactic Acid Calcium 7.4 L Phosphorus Magnesium Total Bilirubin AST Alkaline Phosphatase Total Creatine Kinase C-Reactive Protein Total Protein Albumin TSH Free T4 Urine WBC (Auto) Crossmatch 12/22/18 12/22/18 12/22/18 06:34 11:39 17:29 WBC RBC Hgb Hct MCV MCH RDW Plt Count Lymph % (Auto) Cotton % (Auto) Lymph # Seg Neutrophils % Seg Neuts % (Manual) Lymphocytes % (Manual) Monocytes % (Manual) Nucleated RBC % Seg Neutrophils # Seg Neutrophils # Man Lymphocytes # (Manual) Monocytes # (Manual) PT INR POC ABG pH POC ABG pCO2 POC ABG pO2 Sodium Potassium Chloride Carbon Dioxide BUN Creatinine Glucose POC Glucose 126 H 176 H 180 H Lactic Acid Calcium Phosphorus Magnesium Total Bilirubin AST Alkaline Phosphatase Total Creatine Kinase C-Reactive Protein Total Protein Albumin TSH Free T4 Urine WBC (Auto) Crossmatch 12/22/18 12/23/18 12/23/18 23:19 05:56 08:50 WBC RBC Hgb Hct MCV MCH RDW Plt Count Lymph % (Auto) Cotton % (Auto) Lymph # Seg Neutrophils % Seg Neuts % (Manual) Lymphocytes % (Manual) Monocytes % (Manual) Nucleated RBC % Seg Neutrophils # Seg Neutrophils # Man Lymphocytes # (Manual) Monocytes # (Manual) PT INR POC ABG pH POC ABG pCO2 POC ABG pO2 Sodium 134 L Potassium Chloride Carbon Dioxide BUN 80 H Creatinine 2.4 H Glucose 133 H POC Glucose 135 H 174 H Lactic Acid Calcium 7.0 L Phosphorus Magnesium Total Bilirubin AST Alkaline Phosphatase Total Creatine Kinase C-Reactive Protein Total Protein Albumin TSH Free T4 Urine WBC (Auto) Crossmatch 12/23/18 12/23/18 12/24/18 08:50 11:18 00:18 WBC RBC 3.29 L Hgb 8.5 L Hct 24.9 L MCV 76 L MCH 26 L RDW 24.9 H Plt Count 7 L* Lymph % (Auto) Cotton % (Auto) Lymph # Seg Neutrophils % Seg Neuts % (Manual) Lymphocytes % (Manual) Monocytes % (Manual) Nucleated RBC % Seg Neutrophils # Seg Neutrophils # Man Lymphocytes # (Manual) Monocytes # (Manual) PT INR POC ABG pH POC ABG pCO2 POC ABG pO2 Sodium Potassium Chloride Carbon Dioxide BUN Creatinine Glucose POC Glucose 164 H 64 L Lactic Acid Calcium Phosphorus Magnesium Total Bilirubin AST Alkaline Phosphatase Total Creatine Kinase C-Reactive Protein Total Protein Albumin TSH Free T4 Urine WBC (Auto) Crossmatch 12/24/18 12/24/18 12/24/18 00:56 06:00 06:00 WBC RBC Hgb 9.7 L Hct 29.1 L MCV 76 L MCH 25 L RDW 24.9 H Plt Count 30 L D Lymph % (Auto) Cotton % (Auto) Lymph # Seg Neutrophils % Seg Neuts % (Manual) 86.0 H Lymphocytes % (Manual) 0 L Monocytes % (Manual) Nucleated RBC % Seg Neutrophils # Seg Neutrophils # Man 9.1 H Lymphocytes # (Manual) 0.0 L Monocytes # (Manual) PT INR POC ABG pH POC ABG pCO2 POC ABG pO2 Sodium 132 L Potassium Chloride Carbon Dioxide BUN 79 H Creatinine 2.4 H Glucose 117 H POC Glucose 162 H Lactic Acid Calcium 7.5 L Phosphorus Magnesium Total Bilirubin AST 48 H Alkaline Phosphatase 252 H Total Creatine Kinase C-Reactive Protein Total Protein 5.5 L Albumin 1.6 L TSH Free T4 Urine WBC (Auto) Crossmatch 12/24/18 12/24/18 12/24/18 06:00 12:03 18:45 WBC RBC Hgb Hct MCV MCH RDW Plt Count Lymph % (Auto) Cotton % (Auto) Lymph # Seg Neutrophils % Seg Neuts % (Manual) Lymphocytes % (Manual) Monocytes % (Manual) Nucleated RBC % Seg Neutrophils # Seg Neutrophils # Man Lymphocytes # (Manual) Monocytes # (Manual) PT INR POC ABG pH POC ABG pCO2 POC ABG pO2 Sodium Potassium Chloride Carbon Dioxide BUN Creatinine Glucose POC Glucose 153 H 133 H Lactic Acid Calcium Phosphorus 6.60 H Magnesium 2.40 H Total Bilirubin AST Alkaline Phosphatase Total Creatine Kinase C-Reactive Protein Total Protein Albumin TSH Free T4 Urine WBC (Auto) Crossmatch 12/24/18 12/25/18 12/25/18 23:08 06:36 12:05 WBC RBC Hgb Hct MCV MCH RDW Plt Count Lymph % (Auto) Cotton % (Auto) Lymph # Seg Neutrophils % Seg Neuts % (Manual) Lymphocytes % (Manual) Monocytes % (Manual) Nucleated RBC % Seg Neutrophils # Seg Neutrophils # Man Lymphocytes # (Manual) Monocytes # (Manual) PT INR POC ABG pH POC ABG pCO2 POC ABG pO2 Sodium Potassium Chloride Carbon Dioxide BUN Creatinine Glucose POC Glucose 125 H 176 H 161 H Lactic Acid Calcium Phosphorus Magnesium Total Bilirubin AST Alkaline Phosphatase Total Creatine Kinase C-Reactive Protein Total Protein Albumin TSH Free T4 Urine WBC (Auto) Crossmatch 12/25/18 12/26/18 12/26/18 18:33 00:07 05:09 WBC RBC Hgb Hct MCV MCH RDW Plt Count Lymph % (Auto) Cotton % (Auto) Lymph # Seg Neutrophils % Seg Neuts % (Manual) Lymphocytes % (Manual) Monocytes % (Manual) Nucleated RBC % Seg Neutrophils # Seg Neutrophils # Man Lymphocytes # (Manual) Monocytes # (Manual) PT INR POC ABG pH POC ABG pCO2 POC ABG pO2 Sodium Potassium Chloride Carbon Dioxide BUN Creatinine Glucose POC Glucose 237 H 178 H 171 H Lactic Acid Calcium Phosphorus Magnesium Total Bilirubin AST Alkaline Phosphatase Total Creatine Kinase C-Reactive Protein Total Protein Albumin TSH Free T4 Urine WBC (Auto) Crossmatch 12/26/18 12/26/18 12/26/18 11:27 17:52 23:39 WBC RBC Hgb Hct MCV MCH RDW Plt Count Lymph % (Auto) Cotton % (Auto) Lymph # Seg Neutrophils % Seg Neuts % (Manual) Lymphocytes % (Manual) Monocytes % (Manual) Nucleated RBC % Seg Neutrophils # Seg Neutrophils # Man Lymphocytes # (Manual) Monocytes # (Manual) PT INR POC ABG pH POC ABG pCO2 POC ABG pO2 Sodium Potassium Chloride Carbon Dioxide BUN Creatinine Glucose POC Glucose 205 H 166 H 122 H Lactic Acid Calcium Phosphorus Magnesium Total Bilirubin AST Alkaline Phosphatase Total Creatine Kinase C-Reactive Protein Total Protein Albumin TSH Free T4 Urine WBC (Auto) Crossmatch 12/27/18 12/27/18 12/27/18 06:21 14:29 16:20 WBC RBC 3.01 L Hgb 7.6 L Hct 23.0 L MCV 76 L MCH 25 L RDW 24.4 H Plt Count 28 L Lymph % (Auto) 8.9 L Cotton % (Auto) 7.4 H Lymph # 0.6 L Seg Neutrophils % 83.4 H Seg Neuts % (Manual) Lymphocytes % (Manual) Monocytes % (Manual) Nucleated RBC % Seg Neutrophils # Seg Neutrophils # Man Lymphocytes # (Manual) Monocytes # (Manual) PT INR POC ABG pH POC ABG pCO2 POC ABG pO2 Sodium Potassium Chloride Carbon Dioxide BUN Creatinine Glucose POC Glucose 174 H 197 H Lactic Acid Calcium Phosphorus Magnesium Total Bilirubin AST Alkaline Phosphatase Total Creatine Kinase C-Reactive Protein Total Protein Albumin TSH Free T4 Urine WBC (Auto) Crossmatch 12/27/18 12/27/18 12/27/18 16:20 17:42 20:16 WBC RBC Hgb Hct MCV MCH RDW Plt Count Lymph % (Auto) Cotton % (Auto) Lymph # Seg Neutrophils % Seg Neuts % (Manual) Lymphocytes % (Manual) Monocytes % (Manual) Nucleated RBC % Seg Neutrophils # Seg Neutrophils # Man Lymphocytes # (Manual) Monocytes # (Manual) PT INR POC ABG pH POC ABG pCO2 POC ABG pO2 Sodium Potassium Chloride Carbon Dioxide 21 L BUN 106 H Creatinine 3.0 H Glucose 184 H POC Glucose 211 H Lactic Acid Calcium 6.8 L Phosphorus Magnesium Total Bilirubin AST Alkaline Phosphatase Total Creatine Kinase C-Reactive Protein Total Protein Albumin TSH Free T4 Urine WBC (Auto) Crossmatch See Detail 12/28/18 12/28/18 12/28/18 00:39 01:03 06:42 WBC RBC Hgb 8.2 L Hct 24.6 L MCV MCH RDW Plt Count Lymph % (Auto) Cotton % (Auto) Lymph # Seg Neutrophils % Seg Neuts % (Manual) Lymphocytes % (Manual) Monocytes % (Manual) Nucleated RBC % Seg Neutrophils # Seg Neutrophils # Man Lymphocytes # (Manual) Monocytes # (Manual) PT INR POC ABG pH POC ABG pCO2 POC ABG pO2 Sodium Potassium Chloride Carbon Dioxide BUN Creatinine Glucose POC Glucose 135 H 160 H Lactic Acid Calcium Phosphorus Magnesium Total Bilirubin AST Alkaline Phosphatase Total Creatine Kinase C-Reactive Protein Total Protein Albumin TSH Free T4 Urine WBC (Auto) Crossmatch 12/28/18 12/28/18 12/28/18 07:30 07:30 11:33 WBC RBC 3.43 L Hgb 9.3 L Hct 27.5 L MCV MCH 27 L RDW 24.0 H Plt Count 34 L Lymph % (Auto) Cotton % (Auto) Lymph # Seg Neutrophils % 86.0 H Seg Neuts % (Manual) 88.0 H Lymphocytes % (Manual) 6.0 L Monocytes % (Manual) Nucleated RBC % Seg Neutrophils # Seg Neutrophils # Man Lymphocytes # (Manual) 0.4 L Monocytes # (Manual) PT INR POC ABG pH POC ABG pCO2 POC ABG pO2 Sodium Potassium Chloride Carbon Dioxide 20 L BUN 101 H Creatinine 2.8 H Glucose 155 H POC Glucose 171 H Lactic Acid Calcium 6.5 L Phosphorus 7.40 H Magnesium Total Bilirubin AST Alkaline Phosphatase Total Creatine Kinase C-Reactive Protein Total Protein Albumin TSH Free T4 Urine WBC (Auto) Crossmatch 12/28/18 12/28/18 12/29/18 17:16 23:53 05:45 WBC RBC Hgb Hct 29.7 L MCV MCH 27 L RDW 23.8 H Plt Count 32 L Lymph % (Auto) Cotton % (Auto) Lymph # Seg Neutrophils % Seg Neuts % (Manual) 94.0 H Lymphocytes % (Manual) 4.0 L Monocytes % (Manual) Nucleated RBC % 1.0 H Seg Neutrophils # Seg Neutrophils # Man Lymphocytes # (Manual) 0.2 L Monocytes # (Manual) PT INR POC ABG pH POC ABG pCO2 POC ABG pO2 Sodium Potassium Chloride Carbon Dioxide BUN Creatinine Glucose POC Glucose 151 H 108 H Lactic Acid Calcium Phosphorus Magnesium Total Bilirubin AST Alkaline Phosphatase Total Creatine Kinase C-Reactive Protein Total Protein Albumin TSH Free T4 Urine WBC (Auto) Crossmatch 12/29/18 12/29/18 12/29/18 05:45 12:40 18:04 WBC RBC Hgb Hct MCV MCH RDW Plt Count Lymph % (Auto) Cotton % (Auto) Lymph # Seg Neutrophils % Seg Neuts % (Manual) Lymphocytes % (Manual) Monocytes % (Manual) Nucleated RBC % Seg Neutrophils # Seg Neutrophils # Man Lymphocytes # (Manual) Monocytes # (Manual) PT INR POC ABG pH POC ABG pCO2 POC ABG pO2 Sodium Potassium Chloride Carbon Dioxide 20 L BUN 103 H Creatinine 2.7 H Glucose POC Glucose 108 H 147 H Lactic Acid Calcium 6.6 L Phosphorus 7.20 H Magnesium Total Bilirubin AST 49 H Alkaline Phosphatase 309 H Total Creatine Kinase C-Reactive Protein Total Protein 4.6 L Albumin 1.6 L TSH Free T4 Urine WBC (Auto) Crossmatch 12/29/18 12/30/18 12/30/18 23:47 05:44 11:29 WBC RBC Hgb Hct MCV MCH RDW Plt Count Lymph % (Auto) Cotton % (Auto) Lymph # Seg Neutrophils % Seg Neuts % (Manual) Lymphocytes % (Manual) Monocytes % (Manual) Nucleated RBC % Seg Neutrophils # Seg Neutrophils # Man Lymphocytes # (Manual) Monocytes # (Manual) PT INR POC ABG pH POC ABG pCO2 POC ABG pO2 Sodium Potassium Chloride Carbon Dioxide BUN Creatinine Glucose POC Glucose 119 H 129 H 226 H Lactic Acid Calcium Phosphorus Magnesium Total Bilirubin AST Alkaline Phosphatase Total Creatine Kinase C-Reactive Protein Total Protein Albumin TSH Free T4 Urine WBC (Auto) Crossmatch 12/30/18 12/30/18 12/30/18 13:58 13:58 18:38 WBC RBC 3.12 L Hgb 8.3 L Hct 25.1 L MCV MCH 27 L RDW 24.5 H Plt Count 30 L Lymph % (Auto) Cotton % (Auto) Lymph # Seg Neutrophils % Seg Neuts % (Manual) 79.0 H Lymphocytes % (Manual) 1.0 L Monocytes % (Manual) Nucleated RBC % Seg Neutrophils # Seg Neutrophils # Man Lymphocytes # (Manual) 0.0 L Monocytes # (Manual) PT INR POC ABG pH POC ABG pCO2 POC ABG pO2 Sodium Potassium Chloride Carbon Dioxide 19 L BUN 101 H Creatinine 2.4 H Glucose 196 H POC Glucose 154 H Lactic Acid Calcium 6.5 L Phosphorus Magnesium Total Bilirubin AST 45 H Alkaline Phosphatase 321 H Total Creatine Kinase C-Reactive Protein Total Protein 4.2 L Albumin 1.4 L TSH Free T4 Urine WBC (Auto) Crossmatch 12/30/18 12/31/18 12/31/18 23:46 03:55 03:55 WBC 4.4 L RBC 3.08 L Hgb 8.3 L Hct 24.9 L MCV MCH 27 L RDW 25.0 H Plt Count 14 L* Lymph % (Auto) Cotton % (Auto) Lymph # Seg Neutrophils % Seg Neuts % (Manual) 71.0 H Lymphocytes % (Manual) 1.0 L Monocytes % (Manual) Nucleated RBC % Seg Neutrophils # Seg Neutrophils # Man Lymphocytes # (Manual) 0.0 L Monocytes # (Manual) PT INR POC ABG pH POC ABG pCO2 POC ABG pO2 Sodium Potassium 3.3 L Chloride 109.3 H Carbon Dioxide 20 L BUN 101 H Creatinine 2.5 H Glucose 126 H POC Glucose 141 H Lactic Acid Calcium 6.7 L Phosphorus 7.10 H Magnesium Total Bilirubin AST 42 H Alkaline Phosphatase 298 H Total Creatine Kinase C-Reactive Protein Total Protein 4.1 L Albumin 1.1 L TSH Free T4 Urine WBC (Auto) Crossmatch 12/31/18 12/31/18 12/31/18 05:13 11:49 18:51 WBC RBC Hgb Hct MCV MCH RDW Plt Count Lymph % (Auto) Cotton % (Auto) Lymph # Seg Neutrophils % Seg Neuts % (Manual) Lymphocytes % (Manual) Monocytes % (Manual) Nucleated RBC % Seg Neutrophils # Seg Neutrophils # Man Lymphocytes # (Manual) Monocytes # (Manual) PT INR POC ABG pH POC ABG pCO2 POC ABG pO2 Sodium Potassium Chloride Carbon Dioxide BUN Creatinine Glucose POC Glucose 117 H 113 H 116 H Lactic Acid Calcium Phosphorus Magnesium Total Bilirubin AST Alkaline Phosphatase Total Creatine Kinase C-Reactive Protein Total Protein Albumin TSH Free T4 Urine WBC (Auto) Crossmatch 12/31/18 01/01/19 01/01/19 23:48 04:30 04:30 WBC RBC 2.86 L Hgb 7.7 L Hct 22.9 L MCV MCH 27 L RDW 25.0 H Plt Count 42 L D Lymph % (Auto) Cotton % (Auto) Lymph # Seg Neutrophils % Seg Neuts % (Manual) Lymphocytes % (Manual) Monocytes % (Manual) Nucleated RBC % Seg Neutrophils # Seg Neutrophils # Man Lymphocytes # (Manual) Monocytes # (Manual) PT INR POC ABG pH POC ABG pCO2 POC ABG pO2 Sodium Potassium Chloride 110.0 H Carbon Dioxide 21 L BUN 96 H Creatinine 2.3 H Glucose 109 H POC Glucose 113 H Lactic Acid Calcium 6.5 L Phosphorus Magnesium Total Bilirubin AST Alkaline Phosphatase Total Creatine Kinase C-Reactive Protein Total Protein Albumin TSH Free T4 Urine WBC (Auto) Crossmatch 01/01/19 05:43 WBC RBC Hgb Hct MCV MCH RDW Plt Count Lymph % (Auto) Cotton % (Auto) Lymph # Seg Neutrophils % Seg Neuts % (Manual) Lymphocytes % (Manual) Monocytes % (Manual) Nucleated RBC % Seg Neutrophils # Seg Neutrophils # Man Lymphocytes # (Manual) Monocytes # (Manual) PT INR POC ABG pH POC ABG pCO2 POC ABG pO2 Sodium Potassium Chloride Carbon Dioxide BUN Creatinine Glucose POC Glucose 118 H Lactic Acid Calcium Phosphorus Magnesium Total Bilirubin AST Alkaline Phosphatase Total Creatine Kinase C-Reactive Protein Total Protein Albumin TSH Free T4 Urine WBC (Auto) Crossmatch Allied health notes reviewed: nursing
[2019-01-01] MEDS: PREVACID SOLUTAB FEEDTUBE SCH ×2 (12:30→22:20)
[2019-01-01] MEDS: SODIUM CHLORIDE FLUSH SYRINGE 10 ML IV SCH ×2 (12:30→22:20)
[2019-01-02] MEDS: HumaLOG SUB-Q SCH ×4 (00:57→18:42)
[2019-01-02] MEDS: DUONEB *Not for PRN Use IH SCH ×4 (02:43→19:11)
[2019-01-02 06:16] LABS: Hematocrit 20.1 % (30.3-42.9); Hemoglobin 6.6 gm/dl (10.1-14.3); Mean Corpuscular HGB Conc 33 % (30-34); Mean Corpuscular Volume 81 fl (79-97); Platelet Count 103 K/mm3 (140-440); Red Blood Count 2.48 M/mm3 (3.65-5.03)
[2019-01-02 06:19] LABS: Calcium 6.5 mg/dL (8.4-10.2)
[2019-01-02 06:28] LABS: Red Cell Distribution Width 24.7 % (13.2-15.2)
[2019-01-02 07:55] LABS: Anisocytosis 2+; Band Neutrophils # (Manual) 1.8 K/mm3; Basophils % (Manual) 0 % (0.0-1.8); Eosinophils % (Manual) 0 % (0.0-4.3); Hypochromasia Few; Ovalocytes 1+; Platelet Estimate Consistent w Auto; Poikilocytosis 1+; Total Cells Counted 100
[2019-01-02] MEDS ORDERED: NACL 0.9% 500 ML 500 ML IV NR (08:00)
--- NOTE | 2019-01-02 08:15 | Progress Note ---
Assessment and Plan Assessment and plan: --Acute respiratory failure; vent dependent Surgery planning trach and PEG tomorrow DDAVP on the day of surgery, maintain platelets more than 50 K[103K today] --Anemia;s/p 4 PRBC transfused ,today hemoglobin 6.6 Transfuse 2 units of PRBC, possible trach and PEG tomorrow --Lower GI Bleeding: and h/o Coffee ground emesis:GI evaluated Resolved,No plans of endoscopy --Thrombocytopenia Received total 7 Units platelets until now Plt 103 -today, will transfuse additional pl lets as needed --Hypokalemia; replace per protocol --hypotension, Bp in the lower range today, 1 L normal saline fluid bolus Levophed if no improvement --Acute encephalopathy: Multifactorial, CT head extensive right MCA encephalomalcia, right mastoid opacities. neurology evaluated. 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 --s/p Severe Sepsis due to UTI , right mastoiditis, aspiration PNA Blood cultures negative, right ear Cx negative Completed antibiotics per ID --s/p Septic Shock, --Left lower lobe infiltrate, poss pneumonia s/p antibiotics --Large Pericardial effusion without tamponade TTE EF>50,Cardiology evaluated, medical management Poor candidate for any procedure --MARYANN on CKD 3 Nephrology following-avoid nephrotoxins no indication for HD now --Acute on chronic anemia has h/o anemia requiring previous blood transfusions could be multifactorial (GI bleed and CKD), Total 4 Units PRBC transfused --Hypothermia,resolved --Diabetes mellitus type 2, SSI as needed Full code status. Very Poor prognosis, recommend hospice, palliative care The high probability of a clinically significant, sudden or life threatening deterioration of the [respiratory, cardiology, GI, renal, hematology] system(s) required my full and direct attention, intervention and personal management. The aggregate critical care time was [31] minutes. This time is in addition to time spent performing reported procedures but includes the following: [x] Data Review and interpretation [x] Patient assessment and monitoring of vital signs [x] Documentation [x] Medication orders and management History Interval history: Patient seen and examined medical records reviewed Remains critically ill, Intubated vent dependent, possible trac and PEG tomorrow Patient is unresponsive vital signs reviewed Hemoglobin dropped below 6.6 No external evidence of bleeding Hospitalist Physical - Constitutional Vitals: Temp Pulse Resp BP Pulse Ox 98.1 F 72 23 107/40 100 01/02/19 04:00 01/02/19 07:52 01/02/19 07:52 01/02/19 07:52 01/02/19 07:52 General appearance: Present: no acute distress, well-nourished, other (intubated on vent) - EENT Eyes: Present: PERRL, EOM intact ENT: other ( tongue protruded) - Neck Neck: Present: supple - Respiratory Respiratory effort: normal Respiratory: bilateral: diminished, rhonchi, negative: rales, wheezing - Cardiovascular Rhythm: regular Heart Sounds: Present: S1 & S2 - Extremities Extremities: abnormal (chronic changes ) Extremity abnormal: edema - Abdominal General gastrointestinal: soft, non-tender, non-distended, normal bowel sounds - Integumentary Integumentary: Present: clear, warm - Psychiatric Psychiatric: other (unresponsive) - Neurologic Neurologic: other (unresponsive) Results - Labs CBC & Chem 7: 01/02/19 05:20 01/02/19 05:20 Labs: Laboratory Last Values WBC 6.2 K/mm3 (4.5-11.0) 01/02/19 05:20 RBC 2.48 M/mm3 (3.65-5.03) L 01/02/19 05:20 Hgb 6.6 gm/dl (10.1-14.3) L 01/02/19 05:20 Hct 20.1 % (30.3-42.9) L 01/02/19 05:20 MCV 81 fl (79-97) 01/02/19 05:20 MCH 27 pg (28-32) L 01/02/19 05:20 MCHC 33 % (30-34) 01/02/19 05:20 RDW 24.7 % (13.2-15.2) H 01/02/19 05:20 Plt Count 103 K/mm3 (140-440) L D 01/02/19 05:20 Lymph % (Auto) 8.9 % (13.4-35.0) L 12/27/18 16:20 [place] % (Auto) 6.1 % (0.0-7.3) 12/28/18 07:30 Eos % (Auto) 0.1 % (0.0-4.3) 12/28/18 07:30 Baso % (Auto) 0.3 % (0.0-1.8) 12/27/18 16:20 Lymph # 0.6 K/mm3 (1.2-5.4) L 12/27/18 16:20 [place] # 0.5 K/mm3 (0.0-0.8) 12/27/18 16:20 Eos # 0.0 K/mm3 (0.0-0.4) 12/27/18 16:20 Baso # 0.0 K/mm3 (0.0-0.1) 12/27/18 16:20 Add Manual Diff Complete 01/02/19 05:20 Total Counted 100 01/02/19 05:20 Seg Neutrophils % 86.0 % (40.0-70.0) H 12/28/18 07:30 Seg Neuts % (Manual) 51.0 % (40.0-70.0) 01/02/19 05:20 Band Neutrophils % 29.0 % 01/02/19 05:20 Lymphocytes % (Manual) 12.0 % (13.4-35.0) L 01/02/19 05:20 Reactive Lymphs % (Man) 0 % 01/02/19 05:20 Monocytes % (Manual) 8.0 % (0.0-7.3) H 01/02/19 05:20 Eosinophils % (Manual) 0 % (0.0-4.3) 01/02/19 05:20 Basophils % (Manual) 0 % (0.0-1.8) 01/02/19 05:20 Metamyelocytes % 0 % 01/02/19 05:20 Myelocytes % 0 % 01/02/19 05:20 Promyelocytes % 0 % 01/02/19 05:20 Blast Cells % 0 % 01/02/19 05:20 Nucleated RBC % Not Reportable 01/02/19 05:20 Seg Neutrophils # 5.8 K/mm3 (1.8-7.7) 12/28/18 07:30 Seg Neutrophils # Man 3.2 K/mm3 (1.8-7.7) 01/02/19 05:20 Band Neutrophils # 1.8 K/mm3 01/02/19 05:20 Lymphocytes # (Manual) 0.7 K/mm3 (1.2-5.4) L 01/02/19 05:20 Abs React Lymphs (Man) 0.0 K/mm3 01/02/19 05:20 Monocytes # (Manual) 0.5 K/mm3 (0.0-0.8) 01/02/19 05:20 Eosinophils # (Manual) 0.0 K/mm3 (0.0-0.4) 01/02/19 05:20 Basophils # (Manual) 0.0 K/mm3 (0.0-0.1) 01/02/19 05:20 Metamyelocytes # 0.0 K/mm3 01/02/19 05:20 Myelocytes # 0.0 K/mm3 01/02/19 05:20 Promyelocytes # 0.0 K/mm3 01/02/19 05:20 Blast Cells # 0.0 K/mm3 01/02/19 05:20 WBC Morphology Not Reportable 01/02/19 05:20 Hypersegmented Neuts Not Reportable 01/02/19 05:20 Hyposegmented Neuts Not Reportable 01/02/19 05:20 Hypogranular Neuts Not Reportable 01/02/19 05:20 Smudge Cells Not Reportable 01/02/19 05:20 Toxic Granulation Not Reportable 01/02/19 05:20 Toxic Vacuolation Not Reportable 01/02/19 05:20 Dohle Bodies Not Reportable 01/02/19 05:20 Pelger-Huet Anomaly Not Reportable 01/02/19 05:20 Mark Rods Not Reportable 01/02/19 05:20 Platelet Estimate Consistent w auto 01/02/19 05:20 Clumped Platelets Not Reportable 01/02/19 05:20 Plt Clumps, EDTA Not Reportable 01/02/19 05:20 Large Platelets Not Reportable 01/02/19 05:20 Giant Platelets Not Reportable 01/02/19 05:20 Platelet Satelliting Not Reportable 01/02/19 05:20 Plt Morphology Comment Not Reportable 01/02/19 05:20 RBC Morphology Not Reportable 01/02/19 05:20 Dimorphic RBCs Not Reportable 01/02/19 05:20 Polychromasia Not Reportable 01/02/19 05:20 Hypochromasia Few 01/02/19 05:20 Poikilocytosis 1+ 01/02/19 05:20 Anisocytosis 2+ 01/02/19 05:20 Microcytosis Few 01/02/19 05:20 Macrocytosis Not Reportable 01/02/19 05:20 Spherocytes Not Reportable 01/02/19 05:20 Pappenheimer Bodies Not Reportable 01/02/19 05:20 Sickle Cells Not Reportable 01/02/19 05:20 Target Cells Not Reportable 01/02/19 05:20 Tear Drop Cells Not Reportable 01/02/19 05:20 Ovalocytes 1+ 01/02/19 05:20 Helmet Cells Not Reportable 01/02/19 05:20 [place] Bodies Not Reportable 01/02/19 05:20 [place] Rings Not Reportable 01/02/19 05:20 Aneesh Cells Not Reportable 01/02/19 05:20 Bite Cells Not Reportable 01/02/19 05:20 Crenated Cell Not Reportable 01/02/19 05:20 Elliptocytes Not Reportable 01/02/19 05:20 Acanthocytes (Spur) Not Reportable 01/02/19 05:20 Rouleaux Not Reportable 01/02/19 05:20 Hemoglobin C Crystals Not Reportable 01/02/19 05:20 Schistocytes Not Reportable 01/02/19 05:20 Malaria parasites Not Reportable 01/02/19 05:20 Stef Bodies Not Reportable 01/02/19 05:20 Hem Pathologist Commnt No 01/02/19 05:20 PT 20.2 Sec. (12.2-14.9) H 12/12/18 08:00 INR 1.61 (0.87-1.13) H 12/12/18 08:00 APTT 30.9 Sec. (24.2-36.6) 12/10/18 10:40 POC ABG pH 7.325 (7.35-7.45) L 12/15/18 03:37 POC ABG pCO2 28.6 (35-45) L 12/15/18 03:37 POC ABG pO2 105 (80-105) 12/15/18 03:37 POC ABG HCO3 14.9 12/15/18 03:37 POC ABG Total CO2 16 12/15/18 03:37 POC ABG O2 Sat 98 12/15/18 03:37 POC ABG Base Excess -11 12/15/18 03:37 FiO2 25 % 12/15/18 03:37 Sodium 148 mmol/L (137-145) H 01/02/19 05:20 Potassium 3.4 mmol/L (3.6-5.0) L 01/02/19 05:20 Chloride 111.8 mmol/L (98-107) H 01/02/19 05:20 Carbon Dioxide 21 mmol/L (22-30) L 01/02/19 05:20 Anion Gap 19 mmol/L 01/02/19 05:20 BUN 92 mg/dL (7-17) H 01/02/19 05:20 Creatinine 2.1 mg/dL (0.7-1.2) H 01/02/19 05:20 Estimated GFR 27 ml/min 01/02/19 05:20 BUN/Creatinine Ratio 44 % 01/02/19 05:20 Glucose 103 mg/dL (65-100) H 01/02/19 05:20 POC Glucose 105 (70-105) 01/02/19 05:22 Hemoglobin A1c 4.9 % (4-6) 12/10/18 04:38 Lactic Acid 3.00 mmol/L (0.7-2.0) H* 12/08/18 15:21 Calcium 6.5 mg/dL (8.4-10.2) L 01/02/19 05:20 Phosphorus 7.00 mg/dL (2.5-4.5) H 01/02/19 05:20 Magnesium 2.30 mg/dL (1.7-2.3) 01/02/19 05:20 Total Bilirubin 0.40 mg/dL (0.1-1.2) 12/31/18 03:55 AST 42 units/L (5-40) H 12/31/18 03:55 ALT 13 units/L (7-56) 12/31/18 03:55 Alkaline Phosphatase 298 units/L (35-129) H 12/31/18 03:55 Total Creatine Kinase 258 units/L (30-135) H 12/08/18 13:40 C-Reactive Protein 19.60 mg/dL (0.00-1.30) H 12/09/18 18:18 Total Protein 4.1 g/dL (6.3-8.2) L 12/31/18 03:55 Albumin 1.1 g/dL (3.9-5) L 12/31/18 03:55 Albumin/Globulin Ratio 0.4 % 12/31/18 03:55 TSH 0.268 mlU/mL (0.270-4.200) L 12/09/18 15:54 Free T4 0.58 ng/dL (0.76-1.46) L 12/09/18 15:54 Urine Color Yolie (Yellow) 12/08/18 13:40 Urine Turbidity Cloudy (Clear) 12/08/18 13:40 Urine pH 7.0 (5.0-7.0) 12/08/18 13:40 Ur Specific [place] 1.015 (1.003-1.030) 12/08/18 13:40 Urine Protein 100 mg/dl mg/dL (Negative) 12/08/18 13:40 Urine Glucose (UA) Neg mg/dL (Negative) 12/08/18 13:40 Urine Ketones Neg mg/dL (Negative) 12/08/18 13:40 Urine Blood Sm (Negative) 12/08/18 13:40 Urine Nitrite Neg (Negative) 12/08/18 13:40 Urine Bilirubin Neg (Negative) 12/08/18 13:40 Urine Urobilinogen 2.0 mg/dL (<2.0) 12/08/18 13:40 Ur Leukocyte Esterase Mod (Negative) 12/08/18 13:40 Urine WBC (Auto) 157.0 /HPF (0.0-6.0) H 12/08/18 13:40 Urine RBC (Auto) 8.0 /HPF (0.0-6.0) 12/08/18 13:40 U Epithel Cells (Auto) 1.0 /HPF (0-13.0) 12/08/18 13:40 Urine Bacteria (Auto) 4+ /HPF (Negative) 12/08/18 13:40 Urine Mucus 2+ /HPF 12/08/18 13:40 Random Vancomycin 15.9 ug/mL (0-40.0) 12/18/18 04:08 JEFFREY Screen Negative (Negative) 12/09/18 15:54 Blood Type B POSITIVE 01/01/19 09:07 Antibody Screen Negative 01/01/19 09:07 Crossmatch See Detail 01/01/19 09:07 Active Medications - Current Medications Current Medications: Generic Name Dose Route Start Last Admin Trade Name Moq PRN Reason Stop Dose Admin Acetaminophen 650 mg 12/09/18 01:00 12/28/18 00:24 Tylenol HI 650 mg Q4H PRN Administration Pain MILD(1-3)/Fever >100.5/TURNER Albuterol 2.5 mg 12/09/18 00:31 Proventil IH Q4HRT PRN Shortness Of Breath Albuterol/Ipratropium 1 ampul 12/09/18 02:00 01/02/19 07:52 Duoneb *Not For Prn Use* IH 1 ampul Q6HRT KOLE Administration Lipase/Protease/Amylase 1 each 12/09/18 04:[address] 10,500 Unit FEEDTUBE PRN PRN For Clogged Feeding Tube Atorvastatin Calcium 20 mg 12/28/18 22:00 01/01/19 22:20 Lipitor PO 20 mg QHS KOLE Administration Dextrose 50 ml 12/24/18 00:42 12/24/18 00:30 D50w (25gm) Syringe IV 50 ml PRN PRN Administration Hypoglycemia Hydrophilic Ointment 1 applic 12/14/18 13:00 Vaseline Lip Therapy TP DIRECT PRN Dry tongue Norepinephrine 4 mg in 250 mls @ 7.5 mls/hr 12/18/18 18:00 12/19/18 18:00 Levophed Drip 4 Mg/Ns 250 Ml IV 0 mcg/min TITR KOLE 0 mls/hr Titration Protocol 2 MCG/MIN Sodium Chloride 500 mls @ 0 mls/hr 01/02/19 08:00 Nacl 0.9% 500 Ml IV 01/02/19 18:00 ONCE NR As Directed Insulin Human Lispro 0 unit 12/11/18 12:00 01/02/19 05:39 Humalog SUB-Q Not Given Q6HR KOLE Protocol Lansoprazole 30 mg 12/12/18 10:00 01/01/19 22:20 Prevacid Solutab FEEDTUBE 30 mg BID KOLE Administration Metoprolol Tartrate 25 mg 12/27/18 23:45 01/01/19 18:52 Lopressor PO 25 mg BID@0800,1700 KOLE Administration Multi-Ingred Cream/Lotion/Oil/Oint 1 applic 12/08/18 13:31 Artificial Tears Ophth Oint OU Q4HR PRN Dry Eye(s) Ondansetron HCl 4 mg 12/09/18 00:31 Zofran IV Q8H PRN Nausea And Vomiting Promethazine HCl/Codeine 5 ml 12/27/18 23:49 Phenergan/Codeine 6.25-10 Mg/5ml PO Q6H PRN cough Simple Syrup 15 ml 12/09/18 04:05 Simple Syrup FEEDTUBE PRN PRN Hypoglycemia Simple Syrup 30 ml 12/09/18 04:05 Simple Syrup FEEDTUBE PRN PRN Hypoglycemia Sodium Bicarbonate 325 mg 12/09/18 04:05 Sodium Bicarbonate FEEDTUBE PRN PRN For Clogged Feeding Tube Sodium Chloride 10 ml 12/09/18 10:00 01/01/19 22:20 Sodium Chloride Flush Syringe 10 Ml IV 10 ml BID KOLE Administration Sodium Chloride 10 ml 12/09/18 00:31 12/17/18 10:47 Sodium Chloride Flush Syringe 10 Ml IV 10 ml PRN PRN Administration LINE FLUSH Nutrition/Malnutrition Assess - Dietary Evaluation Nutrition/Malnutrition Findings: Nutrition Notes Start: 12/09/18 12:11 Freq: Status: Active Protocol: Document 01/01/19 10:48 CP (Rec: 01/01/19 10:49 CP [id number]) Co-Sign 01/01/19 10:48 LP Nutrition Notes Initial or Follow up Brief Note Current Diet NPO Subjective/Other Information TF hanging not infusing at 09: 50. Per nurse, pt receiving trach/PEG. Nutrition Intervention Follow-Up By: 01/02/19 Additional Comments F/U: TF restart
[2019-01-02] MEDS ORDERED: POTASSIUM CHLORIDE FEEDTUBE ONE (10:00)
[2019-01-02] MEDS: SODIUM CHLORIDE FLUSH SYRINGE 10 ML IV SCH ×2 (10:21→22:20)
[2019-01-02] MEDS: LOPRESSOR PO SCH ×2 (10:22→17:06)
[2019-01-02] MEDS: PREVACID SOLUTAB FEEDTUBE SCH ×2 (10:23→22:19)
--- NOTE | 2019-01-02 13:17 | Progress Note ---
Assessment and Plan 88 y/o female with acute respiratory failure, altered mental state, presumptive acute renal failure and hypotension with thrombocytopenia and dirty urine analysis. 1. Suggest giving more platelets tonight. DDAVP will be given tomorrow morning 2. Patient continues to fail PSV with periods of apnea 3. No new notes from Neurology in the last 72 hours. 4. NPO after midnight for trach and peg placement CCT 31 minutes. Subjective Date of service: 01/02/19 Principal diagnosis: Rectal Bleed Interval history: No acute events. Scheduled for trach and peg tomorrow. Objective Vital Signs - 12hr 01/02/19 01/02/19 01/02/19 02:00 02:43 02:58 Temperature Pulse Rate 70 Pulse Rate [ 69 Anterior Bilateral Throughout] Pulse Rate [ Apical] Pulse Rate [ 67 69 Throughout] Respiratory 18 Rate Respiratory 18 Rate [Anterior Bilateral Throughout] Respiratory 18 18 Rate [ Throughout] Blood Pressure 105/38 O2 Sat by Pulse 100 Oximetry 01/02/19 01/02/19 01/02/19 03:00 03:22 04:00 Temperature 98.1 F Pulse Rate 70 73 72 Pulse Rate [ Anterior Bilateral Throughout] Pulse Rate [ Apical] Pulse Rate [ Throughout] Respiratory 18 18 Rate Respiratory Rate [Anterior Bilateral Throughout] Respiratory Rate [ Throughout] Blood Pressure 106/46 106/52 93/39 O2 Sat by Pulse 99 100 100 Oximetry 01/02/19 01/02/19 01/02/19 05:00 06:01 07:00 Temperature Pulse Rate 71 69 72 Pulse Rate [ Anterior Bilateral Throughout] Pulse Rate [ Apical] Pulse Rate [ Throughout] Respiratory 18 18 18 Rate Respiratory Rate [Anterior Bilateral Throughout] Respiratory Rate [ Throughout] Blood Pressure 104/43 116/37 118/42 O2 Sat by Pulse 100 100 100 Oximetry 01/02/19 01/02/19 01/02/19 07:52 08:00 08:01 Temperature 95.9 F L Pulse Rate 71 67 67 Pulse Rate [ Anterior Bilateral Throughout] Pulse Rate [ 67 Apical] Pulse Rate [ 72 Throughout] Respiratory 18 18 Rate Respiratory Rate [Anterior Bilateral Throughout] Respiratory 23 Rate [ Throughout] Blood Pressure 107/40 111/38 O2 Sat by Pulse 100 99 100 Oximetry 01/02/19 01/02/19 01/02/19 08:03 09:00 10:00 Temperature Pulse Rate 70 62 Pulse Rate [ 64 Anterior Bilateral Throughout] Pulse Rate [ Apical] Pulse Rate [ 67 Throughout] Respiratory 18 18 Rate Respiratory 18 Rate [Anterior Bilateral Throughout] Respiratory 18 Rate [ Throughout] Blood Pressure 126/33 113/35 O2 Sat by Pulse 100 100 Oximetry 01/02/19 01/02/19 01/02/19 10:11 10:15 10:22 Temperature 95.3 F L 95.4 F L Pulse Rate 70 67 67 Pulse Rate [ Anterior Bilateral Throughout] Pulse Rate [ Apical] Pulse Rate [ Throughout] Respiratory 16 16 Rate Respiratory Rate [Anterior Bilateral Throughout] Respiratory Rate [ Throughout] Blood Pressure 128/44 104/29 104/29 O2 Sat by Pulse 100 Oximetry 01/02/19 01/02/19 01/02/19 10:30 11:00 11:30 Temperature 95.0 F L 97.9 F 97.9 F Pulse Rate 69 70 70 Pulse Rate [ Anterior Bilateral Throughout] Pulse Rate [ Apical] Pulse Rate [ Throughout] Respiratory 18 18 18 Rate Respiratory Rate [Anterior Bilateral Throughout] Respiratory Rate [ Throughout] Blood Pressure 103/40 104/50 120/29 O2 Sat by Pulse 100 100 Oximetry 01/02/19 01/02/19 12:00 12:30 Temperature 98.3 F 98.3 F Pulse Rate 61 62 Pulse Rate [ Anterior Bilateral Throughout] Pulse Rate [ Apical] Pulse Rate [ Throughout] Respiratory 18 18 Rate Respiratory Rate [Anterior Bilateral Throughout] Respiratory Rate [ Throughout] Blood Pressure 105/30 98/30 O2 Sat by Pulse 100 100 Oximetry Constitutional: no acute distress, comatose, other (on vent cmv) Eyes: non-icteric ENT: oropharynx moist, other (ETT in position, large/edematous tongue) Neck: supple Effort: normal Ascultation: Bilateral: clear, diminished breath sounds, other (coarse BS bilaterally) Cardiovascular: regular rate and rhythm, other (pacemaker rhythm) Gastrointestinal: normoactive bowel sounds, non-distended Integumentary: normal Extremities: no cyanosis, no edema, pink and warm Neurologic: pupils equal and round, other (comatose, flaccid extremities, does not track or follow commands, + Cough, Apnea on PSV) Psychiatric: other (unable to assess) CBC and BMP: 01/02/19 05:20 01/02/19 05:20 ABG, PT/INR, D-dimer: ABG POC ABG pH 7.325 (7.35-7.45) L 12/15/18 03:37 POC ABG pCO2 28.6 (35-45) L 12/15/18 03:37 POC ABG pO2 105 (80-105) 12/15/18 03:37 POC ABG HCO3 14.9 12/15/18 03:37 POC ABG Total CO2 16 12/15/18 03:37 POC ABG O2 Sat 98 12/15/18 03:37 PT/INR, D-dimer PT 20.2 Sec. (12.2-14.9) H 12/12/18 08:00 INR 1.61 (0.87-1.13) H 12/12/18 08:00 Abnormal lab findings: Abnormal Labs 12/08/18 12/08/18 12/08/18 12:58 13:40 13:40 WBC RBC Hgb Hct MCV MCH RDW Plt Count Lymph % (Auto) [place] % (Auto) Lymph # Seg Neutrophils % Seg Neuts % (Manual) Lymphocytes % (Manual) Monocytes % (Manual) Nucleated RBC % Seg Neutrophils # Seg Neutrophils # Man Lymphocytes # (Manual) Monocytes # (Manual) PT INR POC ABG pH POC ABG pCO2 POC ABG pO2 Sodium Potassium Chloride Carbon Dioxide BUN Creatinine Glucose POC Glucose 143 H Lactic Acid Calcium Phosphorus Magnesium Total Bilirubin AST Alkaline Phosphatase Total Creatine Kinase C-Reactive Protein Total Protein Albumin TSH Free T4 Urine WBC (Auto) 157.0 H Crossmatch See Detail 12/08/18 12/08/18 12/08/18 13:40 13:40 13:40 WBC RBC 3.06 L Hgb 6.8 L Hct 21.1 L MCV 69 L MCH 22 L RDW 16.2 H Plt Count 56 L Lymph % (Auto) [place] % (Auto) Lymph # Seg Neutrophils % Seg Neuts % (Manual) Lymphocytes % (Manual) 2.0 L Monocytes % (Manual) Nucleated RBC % Seg Neutrophils # Seg Neutrophils # Man Lymphocytes # (Manual) 0.2 L Monocytes # (Manual) PT INR POC ABG pH POC ABG pCO2 POC ABG pO2 Sodium Potassium 3.2 L Chloride Carbon Dioxide 18 L BUN 64 H Creatinine 1.5 H Glucose 145 H POC Glucose Lactic Acid 4.00 H* Calcium 7.7 L Phosphorus Magnesium Total Bilirubin AST Alkaline Phosphatase Total Creatine Kinase 258 H C-Reactive Protein Total Protein 4.6 L Albumin 1.8 L TSH Free T4 Urine WBC (Auto) Crossmatch 12/08/18 12/08/18 12/08/18 14:29 15:21 16:06 WBC RBC Hgb Hct MCV MCH RDW Plt Count Lymph % (Auto) [place] % (Auto) Lymph # Seg Neutrophils % Seg Neuts % (Manual) Lymphocytes % (Manual) Monocytes % (Manual) Nucleated RBC % Seg Neutrophils # Seg Neutrophils # Man Lymphocytes # (Manual) Monocytes # (Manual) PT 20.5 H INR 1.64 H POC ABG pH POC ABG pCO2 34.2 L POC ABG pO2 465 H Sodium Potassium Chloride Carbon Dioxide BUN Creatinine Glucose POC Glucose Lactic Acid 3.00 H* Calcium Phosphorus Magnesium Total Bilirubin AST Alkaline Phosphatase Total Creatine Kinase C-Reactive Protein Total Protein Albumin TSH Free T4 Urine WBC (Auto) Crossmatch 12/09/18 12/09/18 12/09/18 02:31 05:36 05:36 WBC 14.5 H RBC Hgb Hct MCV 75 L MCH 25 L RDW 20.4 H Plt Count 68 L Lymph % (Auto) [place] % (Auto) Lymph # Seg Neutrophils % Seg Neuts % (Manual) 81.0 H Lymphocytes % (Manual) 1.0 L Monocytes % (Manual) Nucleated RBC % Seg Neutrophils # Seg Neutrophils # Man 11.7 H Lymphocytes # (Manual) 0.1 L Monocytes # (Manual) PT INR POC ABG pH POC ABG pCO2 POC ABG pO2 Sodium Potassium Chloride 107.6 H Carbon Dioxide 18 L BUN 75 H Creatinine 1.9 H Glucose 136 H POC Glucose 152 H Lactic Acid Calcium 7.9 L Phosphorus Magnesium Total Bilirubin 1.60 H AST 44 H Alkaline Phosphatase Total Creatine Kinase C-Reactive Protein Total Protein 5.2 L Albumin 2.4 L TSH Free T4 Urine WBC (Auto) Crossmatch 12/09/18 12/09/18 12/09/18 05:43 10:47 13:46 WBC RBC Hgb Hct MCV MCH RDW Plt Count Lymph % (Auto) [place] % (Auto) Lymph # Seg Neutrophils % Seg Neuts % (Manual) Lymphocytes % (Manual) Monocytes % (Manual) Nucleated RBC % Seg Neutrophils # Seg Neutrophils # Man Lymphocytes # (Manual) Monocytes # (Manual) PT INR POC ABG pH 7.308 L POC ABG pCO2 POC ABG pO2 183 H Sodium Potassium Chloride Carbon Dioxide BUN Creatinine Glucose POC Glucose 150 H 162 H Lactic Acid Calcium Phosphorus Magnesium Total Bilirubin AST Alkaline Phosphatase Total Creatine Kinase C-Reactive Protein Total Protein Albumin TSH Free T4 Urine WBC (Auto) Crossmatch 12/09/18 12/09/18 12/09/18 15:54 15:54 16:40 WBC RBC Hgb Hct MCV MCH RDW Plt Count Lymph % (Auto) [place] % (Auto) Lymph # Seg Neutrophils % Seg Neuts % (Manual) Lymphocytes % (Manual) Monocytes % (Manual) Nucleated RBC % Seg Neutrophils # Seg Neutrophils # Man Lymphocytes # (Manual) Monocytes # (Manual) PT INR POC ABG pH POC ABG pCO2 POC ABG pO2 Sodium Potassium Chloride Carbon Dioxide BUN Creatinine Glucose POC Glucose 197 H Lactic Acid Calcium Phosphorus Magnesium Total Bilirubin AST Alkaline Phosphatase Total Creatine Kinase C-Reactive Protein Total Protein Albumin TSH 0.268 L Free T4 0.58 L Urine WBC (Auto) Crossmatch 12/09/18 12/09/18 12/09/18 18:18 18:18 21:51 WBC RBC Hgb Hct MCV MCH RDW Plt Count Lymph % (Auto) [place] % (Auto) Lymph # Seg Neutrophils % Seg Neuts % (Manual) Lymphocytes % (Manual) Monocytes % (Manual) Nucleated RBC % Seg Neutrophils # Seg Neutrophils # Man Lymphocytes # (Manual) Monocytes # (Manual) PT INR POC ABG pH POC ABG pCO2 POC ABG pO2 Sodium Potassium Chloride 108.2 H Carbon Dioxide 16 L BUN 89 H Creatinine 2.3 H Glucose 180 H POC Glucose 198 H Lactic Acid Calcium 7.9 L Phosphorus Magnesium Total Bilirubin AST Alkaline Phosphatase Total Creatine Kinase C-Reactive Protein 19.60 H Total Protein Albumin TSH Free T4 Urine WBC (Auto) Crossmatch 12/10/18 12/10/18 12/10/18 01:59 04:14 04:38 WBC 11.5 H RBC Hgb Hct MCV 75 L MCH 25 L RDW 21.1 H Plt Count 81 L Lymph % (Auto) 5.6 L [place] % (Auto) Lymph # 0.6 L Seg Neutrophils % 89.8 H Seg Neuts % (Manual) Lymphocytes % (Manual) Monocytes % (Manual) Nucleated RBC % Seg Neutrophils # 10.3 H Seg Neutrophils # Man Lymphocytes # (Manual) Monocytes # (Manual) PT INR POC ABG pH 7.273 L POC ABG pCO2 32.1 L POC ABG pO2 161 H Sodium Potassium Chloride Carbon Dioxide BUN Creatinine Glucose POC Glucose 219 H Lactic Acid Calcium Phosphorus Magnesium Total Bilirubin AST Alkaline Phosphatase Total Creatine Kinase C-Reactive Protein Total Protein Albumin TSH Free T4 Urine WBC (Auto) Crossmatch 12/10/18 12/10/18 12/10/18 04:38 05:07 07:26 WBC RBC Hgb Hct MCV MCH RDW Plt Count Lymph % (Auto) [place] % (Auto) Lymph # Seg Neutrophils % Seg Neuts % (Manual) Lymphocytes % (Manual) Monocytes % (Manual) Nucleated RBC % Seg Neutrophils # Seg Neutrophils # Man Lymphocytes # (Manual) Monocytes # (Manual) PT INR POC ABG pH POC ABG pCO2 POC ABG pO2 Sodium Potassium Chloride 112.5 H Carbon Dioxide 14 L BUN 94 H Creatinine 2.4 H Glucose 207 H POC Glucose 221 H 212 H Lactic Acid Calcium 7.7 L Phosphorus Magnesium Total Bilirubin AST Alkaline Phosphatase Total Creatine Kinase C-Reactive Protein Total Protein Albumin TSH Free T4 Urine WBC (Auto) Crossmatch 12/10/18 12/10/18 12/10/18 10:40 11:15 14:21 WBC RBC Hgb Hct MCV MCH RDW Plt Count Lymph % (Auto) [place] % (Auto) Lymph # Seg Neutrophils % Seg Neuts % (Manual) Lymphocytes % (Manual) Monocytes % (Manual) Nucleated RBC % Seg Neutrophils # Seg Neutrophils # Man Lymphocytes # (Manual) Monocytes # (Manual) PT 21.4 H INR 1.73 H POC ABG pH 7.214 L POC ABG pCO2 32.8 L POC ABG pO2 Sodium Potassium Chloride Carbon Dioxide BUN Creatinine Glucose POC Glucose 227 H Lactic Acid Calcium Phosphorus Magnesium Total Bilirubin AST Alkaline Phosphatase Total Creatine Kinase C-Reactive Protein Total Protein Albumin TSH Free T4 Urine WBC (Auto) Crossmatch 12/10/18 12/10/18 12/11/18 15:47 22:38 03:36 WBC RBC Hgb Hct MCV MCH RDW Plt Count Lymph % (Auto) [place] % (Auto) Lymph # Seg Neutrophils % Seg Neuts % (Manual) Lymphocytes % (Manual) Monocytes % (Manual) Nucleated RBC % Seg Neutrophils # Seg Neutrophils # Man Lymphocytes # (Manual) Monocytes # (Manual) PT INR POC ABG pH POC ABG pCO2 26.2 L POC ABG pO2 138 H Sodium Potassium Chloride Carbon Dioxide BUN Creatinine Glucose POC Glucose 202 H 259 H Lactic Acid Calcium Phosphorus Magnesium Total Bilirubin AST Alkaline Phosphatase Total Creatine Kinase C-Reactive Protein Total Protein Albumin TSH Free T4 Urine WBC (Auto) Crossmatch 12/11/18 12/11/18 12/11/18 04:12 05:00 06:19 WBC RBC Hgb Hct MCV MCH RDW Plt Count Lymph % (Auto) [place] % (Auto) Lymph # Seg Neutrophils % Seg Neuts % (Manual) Lymphocytes % (Manual) Monocytes % (Manual) Nucleated RBC % Seg Neutrophils # Seg Neutrophils # Man Lymphocytes # (Manual) Monocytes # (Manual) PT 19.5 H INR 1.54 H POC ABG pH POC ABG pCO2 24.6 L POC ABG pO2 119 H Sodium Potassium Chloride Carbon Dioxide BUN Creatinine Glucose POC Glucose 174 H Lactic Acid Calcium Phosphorus Magnesium Total Bilirubin AST Alkaline Phosphatase Total Creatine Kinase C-Reactive Protein Total Protein Albumin TSH Free T4 Urine WBC (Auto) Crossmatch 12/11/18 12/11/18 12/11/18 11:10 11:10 18:10 WBC 14.3 H RBC Hgb Hct MCV 73 L MCH 24 L RDW 21.5 H Plt Count Lymph % (Auto) [place] % (Auto) Lymph # Seg Neutrophils % Seg Neuts % (Manual) Lymphocytes % (Manual) Monocytes % (Manual) Nucleated RBC % Seg Neutrophils # Seg Neutrophils # Man Lymphocytes # (Manual) Monocytes # (Manual) PT INR POC ABG pH POC ABG pCO2 POC ABG pO2 Sodium Potassium Chloride 110.5 H Carbon Dioxide 15 L BUN 101 H Creatinine 2.4 H Glucose 119 H POC Glucose 147 H Lactic Acid Calcium 7.7 L Phosphorus Magnesium Total Bilirubin AST Alkaline Phosphatase Total Creatine Kinase C-Reactive Protein Total Protein Albumin TSH Free T4 Urine WBC (Auto) Crossmatch 12/11/18 12/12/18 12/12/18 23:25 05:37 06:03 WBC RBC Hgb Hct MCV MCH RDW Plt Count Lymph % (Auto) [place] % (Auto) Lymph # Seg Neutrophils % Seg Neuts % (Manual) Lymphocytes % (Manual) Monocytes % (Manual) Nucleated RBC % Seg Neutrophils # Seg Neutrophils # Man Lymphocytes # (Manual) Monocytes # (Manual) PT INR POC ABG pH 7.346 L POC ABG pCO2 28.3 L POC ABG pO2 120 H Sodium Potassium Chloride Carbon Dioxide BUN Creatinine Glucose POC Glucose 143 H 154 H Lactic Acid Calcium Phosphorus Magnesium Total Bilirubin AST Alkaline Phosphatase Total Creatine Kinase C-Reactive Protein Total Protein Albumin TSH Free T4 Urine WBC (Auto) Crossmatch 12/12/18 12/12/18 12/12/18 08:00 08:00 08:00 WBC 16.2 H RBC Hgb Hct MCV 74 L MCH 25 L RDW 21.9 H Plt Count 21 L Lymph % (Auto) [place] % (Auto) Lymph # Seg Neutrophils % Seg Neuts % (Manual) Lymphocytes % (Manual) Monocytes % (Manual) Nucleated RBC % Seg Neutrophils # Seg Neutrophils # Man Lymphocytes # (Manual) Monocytes # (Manual) PT 20.2 H INR 1.61 H POC ABG pH POC ABG pCO2 POC ABG pO2 Sodium Potassium Chloride 107.4 H Carbon Dioxide 16 L BUN 101 H Creatinine 2.3 H Glucose 169 H POC Glucose Lactic Acid Calcium 8.2 L Phosphorus Magnesium Total Bilirubin AST Alkaline Phosphatase Total Creatine Kinase C-Reactive Protein Total Protein Albumin TSH Free T4 Urine WBC (Auto) Crossmatch 12/12/18 12/12/18 12/13/18 12:59 18:01 04:28 WBC 18.6 H RBC Hgb Hct MCV 74 L MCH 24 L RDW 21.8 H Plt Count 34 L Lymph % (Auto) [place] % (Auto) Lymph # Seg Neutrophils % Seg Neuts % (Manual) 97.0 H Lymphocytes % (Manual) 2.0 L Monocytes % (Manual) Nucleated RBC % 1.0 H Seg Neutrophils # Seg Neutrophils # Man 18.0 H Lymphocytes # (Manual) 0.4 L Monocytes # (Manual) PT INR POC ABG pH POC ABG pCO2 POC ABG pO2 Sodium Potassium Chloride Carbon Dioxide BUN Creatinine Glucose POC Glucose 158 H 123 H Lactic Acid Calcium Phosphorus Magnesium Total Bilirubin AST Alkaline Phosphatase Total Creatine Kinase C-Reactive Protein Total Protein Albumin TSH Free T4 Urine WBC (Auto) Crossmatch 12/13/18 12/13/18 12/13/18 04:28 04:45 19:17 WBC RBC Hgb Hct MCV MCH RDW Plt Count Lymph % (Auto) [place] % (Auto) Lymph # Seg Neutrophils % Seg Neuts % (Manual) Lymphocytes % (Manual) Monocytes % (Manual) Nucleated RBC % Seg Neutrophils # Seg Neutrophils # Man Lymphocytes # (Manual) Monocytes # (Manual) PT INR POC ABG pH 7.327 L POC ABG pCO2 31.1 L POC ABG pO2 136 H Sodium Potassium Chloride 112.0 H Carbon Dioxide 17 L BUN 97 H Creatinine 2.2 H Glucose POC Glucose 106 H Lactic Acid Calcium 8.1 L Phosphorus Magnesium Total Bilirubin AST Alkaline Phosphatase Total Creatine Kinase C-Reactive Protein Total Protein Albumin TSH Free T4 Urine WBC (Auto) Crossmatch 12/13/18 12/14/18 12/14/18 23:24 03:35 03:35 WBC 22.0 H RBC Hgb Hct MCV 75 L MCH 24 L RDW 22.2 H Plt Count 44 L Lymph % (Auto) [place] % (Auto) Lymph # Seg Neutrophils % Seg Neuts % (Manual) 96.0 H Lymphocytes % (Manual) 3.0 L Monocytes % (Manual) Nucleated RBC % Seg Neutrophils # Seg Neutrophils # Man 21.1 H Lymphocytes # (Manual) 0.7 L Monocytes # (Manual) PT INR POC ABG pH POC ABG pCO2 POC ABG pO2 Sodium 136 L Potassium Chloride 107.2 H Carbon Dioxide 15 L BUN 87 H Creatinine 1.7 H Glucose 156 H POC Glucose 108 H Lactic Acid Calcium 7.7 L Phosphorus Magnesium Total Bilirubin AST Alkaline Phosphatase Total Creatine Kinase C-Reactive Protein Total Protein Albumin TSH Free T4 Urine WBC (Auto) Crossmatch 12/14/18 12/14/18 12/14/18 04:58 05:37 12:10 WBC RBC Hgb Hct MCV MCH RDW Plt Count Lymph % (Auto) [place] % (Auto) Lymph # Seg Neutrophils % Seg Neuts % (Manual) Lymphocytes % (Manual) Monocytes % (Manual) Nucleated RBC % Seg Neutrophils # Seg Neutrophils # Man Lymphocytes # (Manual) Monocytes # (Manual) PT INR POC ABG pH 7.301 L POC ABG pCO2 32.6 L POC ABG pO2 138 H Sodium Potassium Chloride Carbon Dioxide BUN Creatinine Glucose POC Glucose 178 H 208 H Lactic Acid Calcium Phosphorus Magnesium Total Bilirubin AST Alkaline Phosphatase Total Creatine Kinase C-Reactive Protein Total Protein Albumin TSH Free T4 Urine WBC (Auto) Crossmatch 12/14/18 12/14/18 12/15/18 17:44 23:16 03:37 WBC RBC Hgb Hct MCV MCH RDW Plt Count Lymph % (Auto) [place] % (Auto) Lymph # Seg Neutrophils % Seg Neuts % (Manual) Lymphocytes % (Manual) Monocytes % (Manual) Nucleated RBC % Seg Neutrophils # Seg Neutrophils # Man Lymphocytes # (Manual) Monocytes # (Manual) PT INR POC ABG pH 7.325 L POC ABG pCO2 28.6 L POC ABG pO2 Sodium Potassium Chloride Carbon Dioxide BUN Creatinine Glucose POC Glucose 172 H 123 H Lactic Acid Calcium Phosphorus Magnesium Total Bilirubin AST Alkaline Phosphatase Total Creatine Kinase C-Reactive Protein Total Protein Albumin TSH Free T4 Urine WBC (Auto) Crossmatch 12/15/18 12/15/18 12/15/18 05:30 05:30 05:43 WBC 20.1 H RBC Hgb 9.5 L Hct 29.2 L MCV 74 L MCH 24 L RDW 22.7 H Plt Count 48 L Lymph % (Auto) [place] % (Auto) Lymph # Seg Neutrophils % Seg Neuts % (Manual) 96.0 H Lymphocytes % (Manual) 1.0 L Monocytes % (Manual) Nucleated RBC % Seg Neutrophils # Seg Neutrophils # Man 19.3 H Lymphocytes # (Manual) 0.2 L Monocytes # (Manual) PT INR POC ABG pH POC ABG pCO2 POC ABG pO2 Sodium Potassium Chloride 110.8 H Carbon Dioxide 17 L BUN 83 H Creatinine 1.6 H Glucose 150 H POC Glucose 151 H Lactic Acid Calcium 7.7 L Phosphorus Magnesium Total Bilirubin AST Alkaline Phosphatase Total Creatine Kinase C-Reactive Protein Total Protein Albumin TSH Free T4 Urine WBC (Auto) Crossmatch 12/15/18 12/15/18 12/16/18 12:56 18:21 00:10 WBC RBC Hgb Hct MCV MCH RDW Plt Count Lymph % (Auto) [place] % (Auto) Lymph # Seg Neutrophils % Seg Neuts % (Manual) Lymphocytes % (Manual) Monocytes % (Manual) Nucleated RBC % Seg Neutrophils # Seg Neutrophils # Man Lymphocytes # (Manual) Monocytes # (Manual) PT INR POC ABG pH POC ABG pCO2 POC ABG pO2 Sodium Potassium Chloride Carbon Dioxide BUN Creatinine Glucose POC Glucose 190 H 143 H 174 H Lactic Acid Calcium Phosphorus Magnesium Total Bilirubin AST Alkaline Phosphatase Total Creatine Kinase C-Reactive Protein Total Protein Albumin TSH Free T4 Urine WBC (Auto) Crossmatch 12/16/18 12/16/18 12/16/18 05:24 05:30 05:30 WBC 17.1 H RBC Hgb 9.1 L Hct 28.8 L MCV 76 L MCH 24 L RDW 23.5 H Plt Count 37 L Lymph % (Auto) [place] % (Auto) Lymph # Seg Neutrophils % Seg Neuts % (Manual) Lymphocytes % (Manual) 9.0 L Monocytes % (Manual) 9.0 H Nucleated RBC % Seg Neutrophils # Seg Neutrophils # Man 9.6 H Lymphocytes # (Manual) Monocytes # (Manual) 1.5 H PT INR POC ABG pH POC ABG pCO2 POC ABG pO2 Sodium Potassium Chloride 110.8 H Carbon Dioxide 15 L BUN 81 H Creatinine 1.6 H Glucose 161 H POC Glucose 154 H Lactic Acid Calcium 7.6 L Phosphorus Magnesium Total Bilirubin AST Alkaline Phosphatase Total Creatine Kinase C-Reactive Protein Total Protein Albumin TSH Free T4 Urine WBC (Auto) Crossmatch 12/16/18 12/16/18 12/16/18 12:31 17:42 21:56 WBC RBC Hgb Hct MCV MCH RDW Plt Count Lymph % (Auto) [place] % (Auto) Lymph # Seg Neutrophils % Seg Neuts % (Manual) Lymphocytes % (Manual) Monocytes % (Manual) Nucleated RBC % Seg Neutrophils # Seg Neutrophils # Man Lymphocytes # (Manual) Monocytes # (Manual) PT INR POC ABG pH POC ABG pCO2 POC ABG pO2 Sodium Potassium Chloride Carbon Dioxide BUN Creatinine Glucose POC Glucose 172 H 173 H 118 H Lactic Acid Calcium Phosphorus Magnesium Total Bilirubin AST Alkaline Phosphatase Total Creatine Kinase C-Reactive Protein Total Protein Albumin TSH Free T4 Urine WBC (Auto) Crossmatch 12/16/18 12/17/18 12/17/18 23:38 04:24 04:24 WBC 19.2 H RBC Hgb 9.5 L Hct 29.7 L MCV 76 L MCH 24 L RDW 24.4 H Plt Count 26 L Lymph % (Auto) [place] % (Auto) Lymph # Seg Neutrophils % Seg Neuts % (Manual) Lymphocytes % (Manual) 6.0 L Monocytes % (Manual) Nucleated RBC % Seg Neutrophils # Seg Neutrophils # Man 13.1 H Lymphocytes # (Manual) Monocytes # (Manual) PT INR POC ABG pH POC ABG pCO2 POC ABG pO2 Sodium 134 L Potassium Chloride 110.0 H Carbon Dioxide 14 L BUN 83 H Creatinine 1.6 H Glucose POC Glucose 109 H Lactic Acid Calcium 7.8 L Phosphorus Magnesium Total Bilirubin AST Alkaline Phosphatase Total Creatine Kinase C-Reactive Protein Total Protein Albumin TSH Free T4 Urine WBC (Auto) Crossmatch 12/17/18 12/17/18 12/18/18 06:42 17:49 00:40 WBC RBC Hgb Hct MCV MCH RDW Plt Count Lymph % (Auto) [place] % (Auto) Lymph # Seg Neutrophils % Seg Neuts % (Manual) Lymphocytes % (Manual) Monocytes % (Manual) Nucleated RBC % Seg Neutrophils # Seg Neutrophils # Man Lymphocytes # (Manual) Monocytes # (Manual) PT INR POC ABG pH POC ABG pCO2 POC ABG pO2 Sodium Potassium Chloride 113.1 H Carbon Dioxide 13 L BUN 82 H Creatinine 1.6 H Glucose POC Glucose 66 L 109 H Lactic Acid Calcium 8.0 L Phosphorus Magnesium Total Bilirubin AST Alkaline Phosphatase Total Creatine Kinase C-Reactive Protein Total Protein Albumin TSH Free T4 Urine WBC (Auto) Crossmatch 12/18/18 12/18/18 12/18/18 04:08 04:08 12:45 WBC 26.5 H RBC 3.63 L Hgb 8.7 L Hct 26.8 L MCV 74 L MCH 24 L RDW 23.3 H Plt Count 24 L Lymph % (Auto) [place] % (Auto) Lymph # Seg Neutrophils % Seg Neuts % (Manual) Lymphocytes % (Manual) Monocytes % (Manual) Nucleated RBC % Seg Neutrophils # Seg Neutrophils # Man Lymphocytes # (Manual) Monocytes # (Manual) PT INR POC ABG pH POC ABG pCO2 POC ABG pO2 Sodium Potassium Chloride 114.3 H Carbon Dioxide 16 L BUN 82 H Creatinine 1.7 H Glucose POC Glucose 117 H Lactic Acid Calcium 7.8 L Phosphorus 5.10 H Magnesium Total Bilirubin AST Alkaline Phosphatase Total Creatine Kinase C-Reactive Protein Total Protein Albumin TSH Free T4 Urine WBC (Auto) Crossmatch 12/18/18 12/18/18 12/19/18 17:42 23:39 04:22 WBC 20.4 H RBC 3.01 L Hgb 7.2 L Hct 22.6 L MCV 75 L MCH 24 L RDW 24.5 H Plt Count 52 L D Lymph % (Auto) [place] % (Auto) Lymph # Seg Neutrophils % Seg Neuts % (Manual) Lymphocytes % (Manual) Monocytes % (Manual) Nucleated RBC % Seg Neutrophils # Seg Neutrophils # Man Lymphocytes # (Manual) Monocytes # (Manual) PT INR POC ABG pH POC ABG pCO2 POC ABG pO2 Sodium Potassium Chloride Carbon Dioxide BUN Creatinine Glucose POC Glucose 121 H 184 H Lactic Acid Calcium Phosphorus Magnesium Total Bilirubin AST Alkaline Phosphatase Total Creatine Kinase C-Reactive Protein Total Protein Albumin TSH Free T4 Urine WBC (Auto) Crossmatch 12/19/18 12/19/18 12/19/18 04:22 12:43 18:12 WBC RBC Hgb Hct MCV MCH RDW Plt Count Lymph % (Auto) [place] % (Auto) Lymph # Seg Neutrophils % Seg Neuts % (Manual) Lymphocytes % (Manual) Monocytes % (Manual) Nucleated RBC % Seg Neutrophils # Seg Neutrophils # Man Lymphocytes # (Manual) Monocytes # (Manual) PT INR POC ABG pH POC ABG pCO2 POC ABG pO2 Sodium Potassium Chloride 112.9 H Carbon Dioxide 15 L BUN 76 H Creatinine 1.8 H Glucose 107 H POC Glucose 141 H 227 H Lactic Acid Calcium 7.4 L Phosphorus Magnesium Total Bilirubin AST Alkaline Phosphatase Total Creatine Kinase C-Reactive Protein Total Protein Albumin TSH Free T4 Urine WBC (Auto) Crossmatch 12/19/18 12/19/18 12/20/18 23:55 Unknown 03:07 WBC 15.7 H RBC 2.92 L Hgb 7.2 L 7.1 L Hct 22.2 L 21.6 L MCV 74 L MCH 24 L RDW 24.3 H Plt Count 23 L Lymph % (Auto) [place] % (Auto) Lymph # Seg Neutrophils % Seg Neuts % (Manual) Lymphocytes % (Manual) Monocytes % (Manual) Nucleated RBC % Seg Neutrophils # Seg Neutrophils # Man Lymphocytes # (Manual) Monocytes # (Manual) PT INR POC ABG pH POC ABG pCO2 POC ABG pO2 Sodium Potassium Chloride Carbon Dioxide BUN Creatinine Glucose POC Glucose 174 H Lactic Acid Calcium Phosphorus Magnesium Total Bilirubin AST Alkaline Phosphatase Total Creatine Kinase C-Reactive Protein Total Protein Albumin TSH Free T4 Urine WBC (Auto) Crossmatch 12/20/18 12/20/18 12/20/18 03:07 05:20 11:00 WBC RBC Hgb Hct MCV MCH RDW Plt Count Lymph % (Auto) [place] % (Auto) Lymph # Seg Neutrophils % Seg Neuts % (Manual) Lymphocytes % (Manual) Monocytes % (Manual) Nucleated RBC % Seg Neutrophils # Seg Neutrophils # Man Lymphocytes # (Manual) Monocytes # (Manual) PT INR POC ABG pH POC ABG pCO2 POC ABG pO2 Sodium 136 L Potassium Chloride Carbon Dioxide 20 L BUN 79 H Creatinine 2.1 H Glucose 141 H POC Glucose 210 H Lactic Acid Calcium 7.5 L Phosphorus Magnesium Total Bilirubin AST Alkaline Phosphatase Total Creatine Kinase C-Reactive Protein Total Protein Albumin TSH Free T4 Urine WBC (Auto) Crossmatch See Detail 12/20/18 12/20/18 12/21/18 11:40 17:51 00:33 WBC RBC Hgb Hct MCV MCH RDW Plt Count Lymph % (Auto) [place] % (Auto) Lymph # Seg Neutrophils % Seg Neuts % (Manual) Lymphocytes % (Manual) Monocytes % (Manual) Nucleated RBC % Seg Neutrophils # Seg Neutrophils # Man Lymphocytes # (Manual) Monocytes # (Manual) PT INR POC ABG pH POC ABG pCO2 POC ABG pO2 Sodium Potassium Chloride Carbon Dioxide BUN Creatinine Glucose POC Glucose 183 H 150 H 119 H Lactic Acid Calcium Phosphorus Magnesium Total Bilirubin AST Alkaline Phosphatase Total Creatine Kinase C-Reactive Protein Total Protein Albumin TSH Free T4 Urine WBC (Auto) Crossmatch 12/21/18 12/21/18 12/21/18 05:05 07:19 07:19 WBC 11.9 H RBC 2.83 L Hgb 6.9 L Hct 20.7 L MCV 73 L MCH 24 L RDW 23.9 H Plt Count 11 L* Lymph % (Auto) [place] % (Auto) Lymph # Seg Neutrophils % Seg Neuts % (Manual) Lymphocytes % (Manual) Monocytes % (Manual) Nucleated RBC % Seg Neutrophils # Seg Neutrophils # Man Lymphocytes # (Manual) Monocytes # (Manual) PT INR POC ABG pH POC ABG pCO2 POC ABG pO2 Sodium 135 L Potassium Chloride Carbon Dioxide 21 L BUN 78 H Creatinine 2.3 H Glucose 143 H POC Glucose 165 H Lactic Acid Calcium 7.3 L Phosphorus Magnesium Total Bilirubin AST Alkaline Phosphatase Total Creatine Kinase C-Reactive Protein Total Protein Albumin TSH Free T4 Urine WBC (Auto) Crossmatch 12/21/18 12/21/18 12/21/18 11:55 17:39 18:00 WBC RBC Hgb 7.9 L Hct 23.8 L MCV MCH RDW Plt Count Lymph % (Auto) [place] % (Auto) Lymph # Seg Neutrophils % Seg Neuts % (Manual) Lymphocytes % (Manual) Monocytes % (Manual) Nucleated RBC % Seg Neutrophils # Seg Neutrophils # Man Lymphocytes # (Manual) Monocytes # (Manual) PT INR POC ABG pH POC ABG pCO2 POC ABG pO2 Sodium Potassium Chloride Carbon Dioxide BUN Creatinine Glucose POC Glucose 125 H 108 H Lactic Acid Calcium Phosphorus Magnesium Total Bilirubin AST Alkaline Phosphatase Total Creatine Kinase C-Reactive Protein Total Protein Albumin TSH Free T4 Urine WBC (Auto) Crossmatch 12/21/18 12/22/18 12/22/18 23:55 05:35 05:35 WBC 11.8 H RBC Hgb 9.4 L Hct 28.3 L MCV 76 L MCH 25 L RDW 24.5 H Plt Count 26 L D Lymph % (Auto) [place] % (Auto) Lymph # Seg Neutrophils % Seg Neuts % (Manual) Lymphocytes % (Manual) Monocytes % (Manual) Nucleated RBC % Seg Neutrophils # Seg Neutrophils # Man Lymphocytes # (Manual) Monocytes # (Manual) PT INR POC ABG pH POC ABG pCO2 POC ABG pO2 Sodium 132 L Potassium Chloride Carbon Dioxide 21 L BUN 79 H Creatinine 2.3 H Glucose 131 H POC Glucose 126 H Lactic Acid Calcium 7.4 L Phosphorus Magnesium Total Bilirubin AST Alkaline Phosphatase Total Creatine Kinase C-Reactive Protein Total Protein Albumin TSH Free T4 Urine WBC (Auto) Crossmatch 12/22/18 12/22/18 12/22/18 06:34 11:39 17:29 WBC RBC Hgb Hct MCV MCH RDW Plt Count Lymph % (Auto) [place] % (Auto) Lymph # Seg Neutrophils % Seg Neuts % (Manual) Lymphocytes % (Manual) Monocytes % (Manual) Nucleated RBC % Seg Neutrophils # Seg Neutrophils # Man Lymphocytes # (Manual) Monocytes # (Manual) PT INR POC ABG pH POC ABG pCO2 POC ABG pO2 Sodium Potassium Chloride Carbon Dioxide BUN Creatinine Glucose POC Glucose 126 H 176 H 180 H Lactic Acid Calcium Phosphorus Magnesium Total Bilirubin AST Alkaline Phosphatase Total Creatine Kinase C-Reactive Protein Total Protein Albumin TSH Free T4 Urine WBC (Auto) Crossmatch 12/22/18 12/23/18 12/23/18 23:19 05:56 08:50 WBC RBC Hgb Hct MCV MCH RDW Plt Count Lymph % (Auto) [place] % (Auto) Lymph # Seg Neutrophils % Seg Neuts % (Manual) Lymphocytes % (Manual) Monocytes % (Manual) Nucleated RBC % Seg Neutrophils # Seg Neutrophils # Man Lymphocytes # (Manual) Monocytes # (Manual) PT INR POC ABG pH POC ABG pCO2 POC ABG pO2 Sodium 134 L Potassium Chloride Carbon Dioxide BUN 80 H Creatinine 2.4 H Glucose 133 H POC Glucose 135 H 174 H Lactic Acid Calcium 7.0 L Phosphorus Magnesium Total Bilirubin AST Alkaline Phosphatase Total Creatine Kinase C-Reactive Protein Total Protein Albumin TSH Free T4 Urine WBC (Auto) Crossmatch 12/23/18 12/23/18 12/24/18 08:50 11:18 00:18 WBC RBC 3.29 L Hgb 8.5 L Hct 24.9 L MCV 76 L MCH 26 L RDW 24.9 H Plt Count 7 L* Lymph % (Auto) [place] % (Auto) Lymph # Seg Neutrophils % Seg Neuts % (Manual) Lymphocytes % (Manual) Monocytes % (Manual) Nucleated RBC % Seg Neutrophils # Seg Neutrophils # Man Lymphocytes # (Manual) Monocytes # (Manual) PT INR POC ABG pH POC ABG pCO2 POC ABG pO2 Sodium Potassium Chloride Carbon Dioxide BUN Creatinine Glucose POC Glucose 164 H 64 L Lactic Acid Calcium Phosphorus Magnesium Total Bilirubin AST Alkaline Phosphatase Total Creatine Kinase C-Reactive Protein Total Protein Albumin TSH Free T4 Urine WBC (Auto) Crossmatch 12/24/18 12/24/18 12/24/18 00:56 06:00 06:00 WBC RBC Hgb 9.7 L Hct 29.1 L MCV 76 L MCH 25 L RDW 24.9 H Plt Count 30 L D Lymph % (Auto) [place] % (Auto) Lymph # Seg Neutrophils % Seg Neuts % (Manual) 86.0 H Lymphocytes % (Manual) 0 L Monocytes % (Manual) Nucleated RBC % Seg Neutrophils # Seg Neutrophils # Man 9.1 H Lymphocytes # (Manual) 0.0 L Monocytes # (Manual) PT INR POC ABG pH POC ABG pCO2 POC ABG pO2 Sodium 132 L Potassium Chloride Carbon Dioxide BUN 79 H Creatinine 2.4 H Glucose 117 H POC Glucose 162 H Lactic Acid Calcium 7.5 L Phosphorus Magnesium Total Bilirubin AST 48 H Alkaline Phosphatase 252 H Total Creatine Kinase C-Reactive Protein Total Protein 5.5 L Albumin 1.6 L TSH Free T4 Urine WBC (Auto) Crossmatch 12/24/18 12/24/18 12/24/18 06:00 12:03 18:45 WBC RBC Hgb Hct MCV MCH RDW Plt Count Lymph % (Auto) [place] % (Auto) Lymph # Seg Neutrophils % Seg Neuts % (Manual) Lymphocytes % (Manual) Monocytes % (Manual) Nucleated RBC % Seg Neutrophils # Seg Neutrophils # Man Lymphocytes # (Manual) Monocytes # (Manual) PT INR POC ABG pH POC ABG pCO2 POC ABG pO2 Sodium Potassium Chloride Carbon Dioxide BUN Creatinine Glucose POC Glucose 153 H 133 H Lactic Acid Calcium Phosphorus 6.60 H Magnesium 2.40 H Total Bilirubin AST Alkaline Phosphatase Total Creatine Kinase C-Reactive Protein Total Protein Albumin TSH Free T4 Urine WBC (Auto) Crossmatch 12/24/18 12/25/18 12/25/18 23:08 06:36 12:05 WBC RBC Hgb Hct MCV MCH RDW Plt Count Lymph % (Auto) [place] % (Auto) Lymph # Seg Neutrophils % Seg Neuts % (Manual) Lymphocytes % (Manual) Monocytes % (Manual) Nucleated RBC % Seg Neutrophils # Seg Neutrophils # Man Lymphocytes # (Manual) Monocytes # (Manual) PT INR POC ABG pH POC ABG pCO2 POC ABG pO2 Sodium Potassium Chloride Carbon Dioxide BUN Creatinine Glucose POC Glucose 125 H 176 H 161 H Lactic Acid Calcium Phosphorus Magnesium Total Bilirubin AST Alkaline Phosphatase Total Creatine Kinase C-Reactive Protein Total Protein Albumin TSH Free T4 Urine WBC (Auto) Crossmatch 12/25/18 12/26/18 12/26/18 18:33 00:07 05:09 WBC RBC Hgb Hct MCV MCH RDW Plt Count Lymph % (Auto) [place] % (Auto) Lymph # Seg Neutrophils % Seg Neuts % (Manual) Lymphocytes % (Manual) Monocytes % (Manual) Nucleated RBC % Seg Neutrophils # Seg Neutrophils # Man Lymphocytes # (Manual) Monocytes # (Manual) PT INR POC ABG pH POC ABG pCO2 POC ABG pO2 Sodium Potassium Chloride Carbon Dioxide BUN Creatinine Glucose POC Glucose 237 H 178 H 171 H Lactic Acid Calcium Phosphorus Magnesium Total Bilirubin AST Alkaline Phosphatase Total Creatine Kinase C-Reactive Protein Total Protein Albumin TSH Free T4 Urine WBC (Auto) Crossmatch 12/26/18 12/26/18 12/26/18 11:27 17:52 23:39 WBC RBC Hgb Hct MCV MCH RDW Plt Count Lymph % (Auto) [place] % (Auto) Lymph # Seg Neutrophils % Seg Neuts % (Manual) Lymphocytes % (Manual) Monocytes % (Manual) Nucleated RBC % Seg Neutrophils # Seg Neutrophils # Man Lymphocytes # (Manual) Monocytes # (Manual) PT INR POC ABG pH POC ABG pCO2 POC ABG pO2 Sodium Potassium Chloride Carbon Dioxide BUN Creatinine Glucose POC Glucose 205 H 166 H 122 H Lactic Acid Calcium Phosphorus Magnesium Total Bilirubin AST Alkaline Phosphatase Total Creatine Kinase C-Reactive Protein Total Protein Albumin TSH Free T4 Urine WBC (Auto) Crossmatch 12/27/18 12/27/18 12/27/18 06:21 14:29 16:20 WBC RBC 3.01 L Hgb 7.6 L Hct 23.0 L MCV 76 L MCH 25 L RDW 24.4 H Plt Count 28 L Lymph % (Auto) 8.9 L [place] % (Auto) 7.4 H Lymph # 0.6 L Seg Neutrophils % 83.4 H Seg Neuts % (Manual) Lymphocytes % (Manual) Monocytes % (Manual) Nucleated RBC % Seg Neutrophils # Seg Neutrophils # Man Lymphocytes # (Manual) Monocytes # (Manual) PT INR POC ABG pH POC ABG pCO2 POC ABG pO2 Sodium Potassium Chloride Carbon Dioxide BUN Creatinine Glucose POC Glucose 174 H 197 H Lactic Acid Calcium Phosphorus Magnesium Total Bilirubin AST Alkaline Phosphatase Total Creatine Kinase C-Reactive Protein Total Protein Albumin TSH Free T4 Urine WBC (Auto) Crossmatch 12/27/18 12/27/18 12/27/18 16:20 17:42 20:16 WBC RBC Hgb Hct MCV MCH RDW Plt Count Lymph % (Auto) [place] % (Auto) Lymph # Seg Neutrophils % Seg Neuts % (Manual) Lymphocytes % (Manual) Monocytes % (Manual) Nucleated RBC % Seg Neutrophils # Seg Neutrophils # Man Lymphocytes # (Manual) Monocytes # (Manual) PT INR POC ABG pH POC ABG pCO2 POC ABG pO2 Sodium Potassium Chloride Carbon Dioxide 21 L BUN 106 H Creatinine 3.0 H Glucose 184 H POC Glucose 211 H Lactic Acid Calcium 6.8 L Phosphorus Magnesium Total Bilirubin AST Alkaline Phosphatase Total Creatine Kinase C-Reactive Protein Total Protein Albumin TSH Free T4 Urine WBC (Auto) Crossmatch See Detail 12/28/18 12/28/18 12/28/18 00:39 01:03 06:42 WBC RBC Hgb 8.2 L Hct 24.6 L MCV MCH RDW Plt Count Lymph % (Auto) [place] % (Auto) Lymph # Seg Neutrophils % Seg Neuts % (Manual) Lymphocytes % (Manual) Monocytes % (Manual) Nucleated RBC % Seg Neutrophils # Seg Neutrophils # Man Lymphocytes # (Manual) Monocytes # (Manual) PT INR POC ABG pH POC ABG pCO2 POC ABG pO2 Sodium Potassium Chloride Carbon Dioxide BUN Creatinine Glucose POC Glucose 135 H 160 H Lactic Acid Calcium Phosphorus Magnesium Total Bilirubin AST Alkaline Phosphatase Total Creatine Kinase C-Reactive Protein Total Protein Albumin TSH Free T4 Urine WBC (Auto) Crossmatch 12/28/18 12/28/18 12/28/18 07:30 07:30 11:33 WBC RBC 3.43 L Hgb 9.3 L Hct 27.5 L MCV MCH 27 L RDW 24.0 H Plt Count 34 L Lymph % (Auto) [place] % (Auto) Lymph # Seg Neutrophils % 86.0 H Seg Neuts % (Manual) 88.0 H Lymphocytes % (Manual) 6.0 L Monocytes % (Manual) Nucleated RBC % Seg Neutrophils # Seg Neutrophils # Man Lymphocytes # (Manual) 0.4 L Monocytes # (Manual) PT INR POC ABG pH POC ABG pCO2 POC ABG pO2 Sodium Potassium Chloride Carbon Dioxide 20 L BUN 101 H Creatinine 2.8 H Glucose 155 H POC Glucose 171 H Lactic Acid Calcium 6.5 L Phosphorus 7.40 H Magnesium Total Bilirubin AST Alkaline Phosphatase Total Creatine Kinase C-Reactive Protein Total Protein Albumin TSH Free T4 Urine WBC (Auto) Crossmatch 12/28/18 12/28/18 12/29/18 17:16 23:53 05:45 WBC RBC Hgb Hct 29.7 L MCV MCH 27 L RDW 23.8 H Plt Count 32 L Lymph % (Auto) [place] % (Auto) Lymph # Seg Neutrophils % Seg Neuts % (Manual) 94.0 H Lymphocytes % (Manual) 4.0 L Monocytes % (Manual) Nucleated RBC % 1.0 H Seg Neutrophils # Seg Neutrophils # Man Lymphocytes # (Manual) 0.2 L Monocytes # (Manual) PT INR POC ABG pH POC ABG pCO2 POC ABG pO2 Sodium Potassium Chloride Carbon Dioxide BUN Creatinine Glucose POC Glucose 151 H 108 H Lactic Acid Calcium Phosphorus Magnesium Total Bilirubin AST Alkaline Phosphatase Total Creatine Kinase C-Reactive Protein Total Protein Albumin TSH Free T4 Urine WBC (Auto) Crossmatch 12/29/18 12/29/18 12/29/18 05:45 12:40 18:04 WBC RBC Hgb Hct MCV MCH RDW Plt Count Lymph % (Auto) [place] % (Auto) Lymph # Seg Neutrophils % Seg Neuts % (Manual) Lymphocytes % (Manual) Monocytes % (Manual) Nucleated RBC % Seg Neutrophils # Seg Neutrophils # Man Lymphocytes # (Manual) Monocytes # (Manual) PT INR POC ABG pH POC ABG pCO2 POC ABG pO2 Sodium Potassium Chloride Carbon Dioxide 20 L BUN 103 H Creatinine 2.7 H Glucose POC Glucose 108 H 147 H Lactic Acid Calcium 6.6 L Phosphorus 7.20 H Magnesium Total Bilirubin AST 49 H Alkaline Phosphatase 309 H Total Creatine Kinase C-Reactive Protein Total Protein 4.6 L Albumin 1.6 L TSH Free T4 Urine WBC (Auto) Crossmatch 12/29/18 12/30/18 12/30/18 23:47 05:44 11:29 WBC RBC Hgb Hct MCV MCH RDW Plt Count Lymph % (Auto) [place] % (Auto) Lymph # Seg Neutrophils % Seg Neuts % (Manual) Lymphocytes % (Manual) Monocytes % (Manual) Nucleated RBC % Seg Neutrophils # Seg Neutrophils # Man Lymphocytes # (Manual) Monocytes # (Manual) PT INR POC ABG pH POC ABG pCO2 POC ABG pO2 Sodium Potassium Chloride Carbon Dioxide BUN Creatinine Glucose POC Glucose 119 H 129 H 226 H Lactic Acid Calcium Phosphorus Magnesium Total Bilirubin AST Alkaline Phosphatase Total Creatine Kinase C-Reactive Protein Total Protein Albumin TSH Free T4 Urine WBC (Auto) Crossmatch 12/30/18 12/30/18 12/30/18 13:58 13:58 18:38 WBC RBC 3.12 L Hgb 8.3 L Hct 25.1 L MCV MCH 27 L RDW 24.5 H Plt Count 30 L Lymph % (Auto) [place] % (Auto) Lymph # Seg Neutrophils % Seg Neuts % (Manual) 79.0 H Lymphocytes % (Manual) 1.0 L Monocytes % (Manual) Nucleated RBC % Seg Neutrophils # Seg Neutrophils # Man Lymphocytes # (Manual) 0.0 L Monocytes # (Manual) PT INR POC ABG pH POC ABG pCO2 POC ABG pO2 Sodium Potassium Chloride Carbon Dioxide 19 L BUN 101 H Creatinine 2.4 H Glucose 196 H POC Glucose 154 H Lactic Acid Calcium 6.5 L Phosphorus Magnesium Total Bilirubin AST 45 H Alkaline Phosphatase 321 H Total Creatine Kinase C-Reactive Protein Total Protein 4.2 L Albumin 1.4 L TSH Free T4 Urine WBC (Auto) Crossmatch 12/30/18 12/31/18 12/31/18 23:46 03:55 03:55 WBC 4.4 L RBC 3.08 L Hgb 8.3 L Hct 24.9 L MCV MCH 27 L RDW 25.0 H Plt Count 14 L* Lymph % (Auto) [place] % (Auto) Lymph # Seg Neutrophils % Seg Neuts % (Manual) 71.0 H Lymphocytes % (Manual) 1.0 L Monocytes % (Manual) Nucleated RBC % Seg Neutrophils # Seg Neutrophils # Man Lymphocytes # (Manual) 0.0 L Monocytes # (Manual) PT INR POC ABG pH POC ABG pCO2 POC ABG pO2 Sodium Potassium 3.3 L Chloride 109.3 H Carbon Dioxide 20 L BUN 101 H Creatinine 2.5 H Glucose 126 H POC Glucose 141 H Lactic Acid Calcium 6.7 L Phosphorus 7.10 H Magnesium Total Bilirubin AST 42 H Alkaline Phosphatase 298 H Total Creatine Kinase C-Reactive Protein Total Protein 4.1 L Albumin 1.1 L TSH Free T4 Urine WBC (Auto) Crossmatch 12/31/18 12/31/18 12/31/18 05:13 11:49 18:51 WBC RBC Hgb Hct MCV MCH RDW Plt Count Lymph % (Auto) [place] % (Auto) Lymph # Seg Neutrophils % Seg Neuts % (Manual) Lymphocytes % (Manual) Monocytes % (Manual) Nucleated RBC % Seg Neutrophils # Seg Neutrophils # Man Lymphocytes # (Manual) Monocytes # (Manual) PT INR POC ABG pH POC ABG pCO2 POC ABG pO2 Sodium Potassium Chloride Carbon Dioxide BUN Creatinine Glucose POC Glucose 117 H 113 H 116 H Lactic Acid Calcium Phosphorus Magnesium Total Bilirubin AST Alkaline Phosphatase Total Creatine Kinase C-Reactive Protein Total Protein Albumin TSH Free T4 Urine WBC (Auto) Crossmatch 12/31/18 01/01/19 01/01/19 23:48 04:30 04:30 WBC RBC 2.86 L Hgb 7.7 L Hct 22.9 L MCV MCH 27 L RDW 25.0 H Plt Count 42 L D Lymph % (Auto) [place] % (Auto) Lymph # Seg Neutrophils % Seg Neuts % (Manual) Lymphocytes % (Manual) Monocytes % (Manual) Nucleated RBC % Seg Neutrophils # Seg Neutrophils # Man Lymphocytes # (Manual) Monocytes # (Manual) PT INR POC ABG pH POC ABG pCO2 POC ABG pO2 Sodium Potassium Chloride 110.0 H Carbon Dioxide 21 L BUN 96 H Creatinine 2.3 H Glucose 109 H POC Glucose 113 H Lactic Acid Calcium 6.5 L Phosphorus Magnesium Total Bilirubin AST Alkaline Phosphatase Total Creatine Kinase C-Reactive Protein Total Protein Albumin TSH Free T4 Urine WBC (Auto) Crossmatch 01/01/19 01/01/19 01/01/19 05:43 09:07 11:30 WBC RBC Hgb Hct MCV MCH RDW Plt Count Lymph % (Auto) [place] % (Auto) Lymph # Seg Neutrophils % Seg Neuts % (Manual) Lymphocytes % (Manual) Monocytes % (Manual) Nucleated RBC % Seg Neutrophils # Seg Neutrophils # Man Lymphocytes # (Manual) Monocytes # (Manual) PT INR POC ABG pH POC ABG pCO2 POC ABG pO2 Sodium Potassium Chloride Carbon Dioxide BUN Creatinine Glucose POC Glucose 118 H 144 H Lactic Acid Calcium Phosphorus Magnesium Total Bilirubin AST Alkaline Phosphatase Total Creatine Kinase C-Reactive Protein Total Protein Albumin TSH Free T4 Urine WBC (Auto) Crossmatch See Detail 01/02/19 01/02/19 05:20 05:20 WBC RBC 2.48 L Hgb 6.6 L Hct 20.1 L MCV MCH 27 L RDW 24.7 H Plt Count 103 L D Lymph % (Auto) [place] % (Auto) Lymph # Seg Neutrophils % Seg Neuts % (Manual) Lymphocytes % (Manual) 12.0 L Monocytes % (Manual) 8.0 H Nucleated RBC % Seg Neutrophils # Seg Neutrophils # Man Lymphocytes # (Manual) 0.7 L Monocytes # (Manual) PT INR POC ABG pH POC ABG pCO2 POC ABG pO2 Sodium 148 H Potassium 3.4 L Chloride 111.8 H Carbon Dioxide 21 L BUN 92 H Creatinine 2.1 H Glucose 103 H POC Glucose Lactic Acid Calcium 6.5 L Phosphorus 7.00 H Magnesium Total Bilirubin AST Alkaline Phosphatase Total Creatine Kinase C-Reactive Protein Total Protein Albumin TSH Free T4 Urine WBC (Auto) Crossmatch Allied health notes reviewed: nursing
--- NOTE | 2019-01-02 13:28 | Event Note ---
Date: 01/02/19 Pt scheduled for trach/PEG tomorrow 01/03/18 at 2:30pm. Platelets today are 103K and Hb 6.6. Orders noted for PRBC transfusion. Will also order DDAVP to be administered tomorrow before procedure. Recommend having platelets on hold in case platelet count drops tomorrow. Hold Tube feeds after midnight tonight.
[2019-01-02 16:58] LABS: Hematocrit 26.8 % (30.3-42.9); Hemoglobin 8.8 gm/dl (10.1-14.3); Mean Corpuscular HGB Conc 33 % (30-34); Mean Corpuscular Volume 84 fl (79-97); Red Blood Count 3.19 M/mm3 (3.65-5.03)
[2019-01-02 17:15] LABS: Platelet Count 99 K/mm3 (140-440); Red Cell Distribution Width 23.3 % (13.2-15.2)
--- NOTE | 2019-01-02 17:23 | Progress Note ---
Assessment and Plan - Patient Problems (1) Acute kidney failure with tubular necrosis Current Visit: Yes Status: Acute Plan to address problem: renal function is unchanged. Overall prognosis is poor, poor candidate for renal replacement therapy. Avoid nephrotoxins. pt awaiting PEG/Trach. (2) Acute post-hemorrhagic anemia Current Visit: Yes Status: Acute Plan to address problem: H/H is trending down, pt scheduled for 2PRBC. transfuse prn to maintain HgB>7.0. Start EPO (3) Respiratory failure Current Visit: Yes Status: Acute Plan to address problem: Continues on ventilatory support, and further management per ICU/Pulmonary team. (4) Pericardial effusion without cardiac tamponade Current Visit: Yes Status: Acute Plan to address problem: s/p ECHO with findings not consistent with cardiac tamponade. Will continue to monitor, further recs per cardiology. (5) Encephalopathy Current Visit: Yes Status: Acute Plan to address problem: s/p EEG . Results reviewed. Further management per primary team. Patient remains comatose at this time Subjective Date of service: 01/02/19 Principal diagnosis: Rectal Bleed Interval history: Pt remains intubated, unresponsive. scheduled for PEG/Trach on 01/03. receiving blood transfusion Objective - Vital Signs Vital signs: Vital Signs - 12hr 01/02/19 01/02/19 01/02/19 06:01 07:00 07:52 Temperature Pulse Rate 69 72 71 Pulse Rate [ Anterior Bilateral Throughout] Pulse Rate [ Apical] Pulse Rate [ From Monitor] Pulse Rate [ 72 Throughout] Respiratory 18 18 Rate Respiratory Rate [Anterior Bilateral Throughout] Respiratory 23 Rate [ Throughout] Blood Pressure 116/37 118/42 107/40 O2 Sat by Pulse 100 100 100 Oximetry 01/02/19 01/02/19 01/02/19 08:00 08:01 08:03 Temperature 95.9 F L Pulse Rate 67 67 Pulse Rate [ 64 Anterior Bilateral Throughout] Pulse Rate [ 67 Apical] Pulse Rate [ From Monitor] Pulse Rate [ 67 Throughout] Respiratory 18 18 Rate Respiratory 18 Rate [Anterior Bilateral Throughout] Respiratory 18 Rate [ Throughout] Blood Pressure 111/38 O2 Sat by Pulse 99 100 Oximetry 01/02/19 01/02/19 01/02/19 09:00 10:00 10:11 Temperature 95.3 F L Pulse Rate 70 62 70 Pulse Rate [ Anterior Bilateral Throughout] Pulse Rate [ Apical] Pulse Rate [ From Monitor] Pulse Rate [ Throughout] Respiratory 18 18 16 Rate Respiratory Rate [Anterior Bilateral Throughout] Respiratory Rate [ Throughout] Blood Pressure 126/33 113/35 128/44 O2 Sat by Pulse 100 100 100 Oximetry 01/02/19 01/02/19 01/02/19 10:15 10:22 10:30 Temperature 95.4 F L 95.0 F L Pulse Rate 67 67 69 Pulse Rate [ Anterior Bilateral Throughout] Pulse Rate [ Apical] Pulse Rate [ From Monitor] Pulse Rate [ Throughout] Respiratory 16 18 Rate Respiratory Rate [Anterior Bilateral Throughout] Respiratory Rate [ Throughout] Blood Pressure 104/29 104/29 103/40 O2 Sat by Pulse Oximetry 01/02/19 01/02/19 01/02/19 11:00 11:30 12:00 Temperature 97.9 F 97.9 F 98.3 F Pulse Rate 70 70 61 Pulse Rate [ Anterior Bilateral Throughout] Pulse Rate [ 61 Apical] Pulse Rate [ 61 From Monitor] Pulse Rate [ Throughout] Respiratory 18 18 18 Rate Respiratory Rate [Anterior Bilateral Throughout] Respiratory Rate [ Throughout] Blood Pressure 104/50 120/29 105/30 O2 Sat by Pulse 100 100 100 Oximetry 01/02/19 01/02/19 01/02/19 12:01 12:30 13:00 Temperature 98.3 F Pulse Rate 61 62 65 Pulse Rate [ Anterior Bilateral Throughout] Pulse Rate [ Apical] Pulse Rate [ From Monitor] Pulse Rate [ Throughout] Respiratory 18 18 18 Rate Respiratory Rate [Anterior Bilateral Throughout] Respiratory Rate [ Throughout] Blood Pressure 105/30 98/30 102/35 O2 Sat by Pulse 100 100 99 Oximetry 01/02/19 01/02/19 01/02/19 13:18 13:27 14:00 Temperature 98.5 F Pulse Rate 65 64 64 Pulse Rate [ Anterior Bilateral Throughout] Pulse Rate [ Apical] Pulse Rate [ From Monitor] Pulse Rate [ Throughout] Respiratory 18 18 Rate Respiratory Rate [Anterior Bilateral Throughout] Respiratory Rate [ Throughout] Blood Pressure 104/35 104/35 110/36 O2 Sat by Pulse 99 100 100 Oximetry 01/02/19 01/02/19 01/02/19 14:51 15:00 15:03 Temperature Pulse Rate 73 Pulse Rate [ 76 Anterior Bilateral Throughout] Pulse Rate [ Apical] Pulse Rate [ From Monitor] Pulse Rate [ 72 77 Throughout] Respiratory 18 Rate Respiratory 18 Rate [Anterior Bilateral Throughout] Respiratory 18 18 Rate [ Throughout] Blood Pressure 110/33 O2 Sat by Pulse 99 Oximetry 01/02/19 01/02/19 01/02/19 16:00 16:12 16:59 Temperature 99.2 F 98.7 F Pulse Rate 78 76 73 Pulse Rate [ Anterior Bilateral Throughout] Pulse Rate [ 78 Apical] Pulse Rate [ 78 From Monitor] Pulse Rate [ Throughout] Respiratory 18 28 H Rate Respiratory Rate [Anterior Bilateral Throughout] Respiratory Rate [ Throughout] Blood Pressure 118/35 118/35 102/32 O2 Sat by Pulse 99 99 98 Oximetry 01/02/19 01/02/19 01/02/19 17:00 17:04 17:06 Temperature 98.6 F Pulse Rate 73 76 79 Pulse Rate [ Anterior Bilateral Throughout] Pulse Rate [ Apical] Pulse Rate [ From Monitor] Pulse Rate [ Throughout] Respiratory 18 18 Rate Respiratory Rate [Anterior Bilateral Throughout] Respiratory Rate [ Throughout] Blood Pressure 102/32 105/40 102/32 O2 Sat by Pulse 98 100 Oximetry - General Appearance General appearance: chronically ill, sedated on ventilator, comatose EENT: ATNC, mucous membranes moist Neck: no JVD Respiratory: Present: Decreased Breath Sounds Cardiology: regular, S1S2 Gastrointestinal: normoactive bowel sounds Integumentary: no rash, other (+ edema b/l LE ) - Lab 01/02/19 16:45 01/02/19 05:20 Most recent lab results Calcium 6.5 mg/dL (8.4-10.2) L 01/02/19 05:20 Phosphorus 7.00 mg/dL (2.5-4.5) H 01/02/19 05:20 Magnesium 2.30 mg/dL (1.7-2.3) 01/02/19 05:20 Medications & Allergies - Medications Allergies/Adverse Reactions: Allergies Penicillins Allergy (Verified 12/08/18 13:13) Hives Home Medications: Home Medications Medication Instructions Recorded Confirmed Last Taken Type ALBUTEROL Inhaler (OR & NICU) 2 puff IH QID PRN #1 inhalation 12/21/16 12/08/18 Unknown Rx [Proair] Albuterol Sulfate [Albuterol 0.63% 0.63 mg IH TID PRN #90 ml 12/21/16 12/08/18 Unknown Rx NEBS] Amlodipine Besylate [Norvasc] 10 mg PO DAILY #90 tablet 12/21/16 12/08/18 Unknown Rx AtorvaSTATin [Lipitor] 20 mg PO QHS #90 tablet 12/21/16 12/08/18 Unknown Rx Hydralazine HCl [Apresoline TAB] 50 mg PO TID #90 tablet 12/21/16 12/08/18 Unknown Rx Metoprolol [Lopressor TAB] 25 mg PO BID #90 tablet 12/21/16 12/08/18 Unknown Rx Promethazine /Codeine 5 ml PO Q6H PRN #100 ml 12/21/16 12/08/18 Unknown Rx [Phenergan/Codeine 6.25-10 mg/5 ml] Active Medications: Generic Name Dose Route Start Last Admin Trade Name Freq PRN Reason Stop Dose Admin Acetaminophen 650 mg 12/09/18 01:00 12/28/18 00:24 Tylenol [place] 650 mg Q4H PRN Administration Pain MILD(1-3)/Fever >100.5/TURNER Albuterol 2.5 mg 12/09/18 00:31 Proventil IH Q4HRT PRN Shortness Of Breath Albuterol/Ipratropium 1 ampul 12/09/18 02:00 01/02/19 14:51 Duoneb *Not For Prn Use* IH 1 ampul Q6HRT KOLE Administration Lipase/Protease/Amylase 1 each 12/09/18 04:05 Pancreaze 10,500 Unit FEEDTUBE PRN PRN For Clogged Feeding Tube Atorvastatin Calcium 20 mg 12/28/18 22:00 01/01/19 22:20 Lipitor PO 20 mg QHS KOLE Administration Dextrose 50 ml 12/24/18 00:42 12/24/18 00:30 D50w (25gm) Syringe IV 50 ml PRN PRN Administration Hypoglycemia Hydrophilic Ointment 1 applic 12/14/18 13:00 Vaseline Lip Therapy TP DIRECT PRN Dry tongue Norepinephrine 4 mg in 250 mls @ 7.5 mls/hr 12/18/18 18:00 12/19/18 18:00 Levophed Drip 4 Mg/Ns 250 Ml IV 0 mcg/min TITR KOLE 0 mls/hr Titration Protocol 2 MCG/MIN Sodium Chloride 500 mls @ 0 mls/hr 01/02/19 08:00 01/02/19 10:10 Nacl 0.9% 500 Ml IV 01/02/19 18:00 120 mls/hr ONCE NR Administration As Directed Desmopressin Acetate 23 mcg/ 55.75 mls @ 100 mls/hr 01/03/19 10:00 Sodium Chloride IV 01/03/19 10:33 [employer] Insulin Human Lispro 0 unit 12/11/18 12:00 01/02/19 12:50 Humalog SUB-Q Not Given Q6HR [facility] Protocol Lansoprazole 30 mg 12/12/18 10:00 01/02/19 10:23 Prevacid Solutab FEEDTUBE 30 mg BID KOLE Administration Metoprolol Tartrate 25 mg 12/27/18 23:45 01/02/19 17:06 Lopressor PO 25 mg BID@0800,1700 [facility] Administration Multi-Ingred Cream/Lotion/Oil/Oint 1 applic 12/08/18 13:31 Artificial Tears Ophth Oint OU Q4HR PRN Dry Eye(s) Ondansetron HCl 4 mg 12/09/18 00:31 Zofran IV Q8H PRN Nausea And Vomiting Promethazine HCl/Codeine 5 ml 12/27/18 23:49 Phenergan/Codeine 6.25-10 Mg/5ml PO Q6H PRN cough Simple Syrup 15 ml 12/09/18 04:05 Simple Syrup FEEDTUBE PRN PRN Hypoglycemia Simple Syrup 30 ml 12/09/18 04:05 Simple Syrup FEEDTUBE PRN PRN Hypoglycemia Sodium Bicarbonate 325 mg 12/09/18 04:05 Sodium Bicarbonate FEEDTUBE PRN PRN For Clogged Feeding Tube Sodium Chloride 10 ml 12/09/18 10:00 01/02/19 10:21 Sodium Chloride Flush Syringe 10 Ml IV 10 ml BID KOLE Administration Sodium Chloride 10 ml 12/09/18 00:31 12/17/18 10:47 Sodium Chloride Flush Syringe 10 Ml IV 10 ml PRN PRN Administration LINE FLUSH
[2019-01-02 18:20] LABS: Anisocytosis 2+; Band Neutrophils # (Manual) 1.2 K/mm3; Basophils % (Manual) 0 % (0.0-1.8); Hypochromasia 1+; Poikilocytosis 2+; Total Cells Counted 100
[2019-01-02 18:21] LABS: Giant Platelets Few; Platelet Estimate Consistent w Auto
[2019-01-03] MEDS: DUONEB *Not for PRN Use IH SCH ×4 (02:59→19:33)
[2019-01-03 05:58] LABS: Hematocrit 30.2 % (30.3-42.9); Mean Corpuscular HGB Conc 33 % (30-34); Mean Corpuscular Volume 83 fl (79-97); Red Blood Count 3.65 M/mm3 (3.65-5.03)
[2019-01-03 06:09] LABS: Calcium 6.8 mg/dL (8.4-10.2)
[2019-01-03] MEDS: HumaLOG SUB-Q SCH ×5 (06:21→18:45)
[2019-01-03 06:35] LABS: Platelet Count 77 K/mm3 (140-440); Red Cell Distribution Width 22.3 % (13.2-15.2)
--- NOTE | 2019-01-03 08:33 | Progress Note ---
Assessment and Plan Assessment and plan: --Acute respiratory failure; vent dependent Possible trach and PEG today DDAVP today, maintain platelets more than 50 K[77K today] --Anemia;s/p total 6 PRBC transfused ,today hemoglobin 10 today Transfuse 2 units of PRBC, possible trach and PEG tomorrow --Thrombocytopenia Received total 7 Units platelets until now, Plt 77K -today, --Lower GI Bleeding: and h/o Coffee ground emesis:GI evaluated Resolved,No plans of endoscopy --Hypokalemia; replace per protocol --hypotension ; blood pressure is well maintained normal saline fluid bolus as needed --Acute encephalopathy: Multifactorial, CT head extensive right MCA encephalomalcia, right mastoid opacities. neurology evaluated. 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 --s/p Severe Sepsis due to UTI , right mastoiditis, aspiration PNA Blood cultures negative, right ear Cx negative Completed antibiotics per ID --s/p Septic Shock, --Left lower lobe infiltrate, poss pneumonia s/p antibiotics --Large Pericardial effusion without tamponade TTE EF>50,Cardiology evaluated, medical management Poor candidate for any procedure --MARYANN on CKD 3 Nephrology following-avoid nephrotoxins --Acute on chronic anemia has h/o anemia requiring previous blood transfusions could be multifactorial (GI bleed and CKD), Total 4 Units PRBC transfused --Hypothermia, supportive care --Diabetes mellitus type 2, SSI as needed Full code status. Very Poor prognosis, recommend hospice, palliative care The high probability of a clinically significant, sudden or life threatening deterioration of the [respiratory, cardiology, GI, renal, hematology] system(s) required my full and direct attention, intervention and personal management. The aggregate critical care time was [32] minutes. This time is in addition to time spent performing reported procedures but includes the following: [x] Data Review and interpretation [x] Patient assessment and monitoring of vital signs [x] Documentation [x] Medication orders and management History Interval history: Patient seen and examined this morning medical records reviewed Patient is scheduled for Trach and PEG Platelets and hemoglobin reasonable levels Remains intubated on ventilatory support vital signs reviewed Hospitalist Physical - Constitutional Vitals: Temp Pulse Resp BP Pulse Ox 97.4 F L 68 18 113/49 100 01/03/19 04:00 01/03/19 06:00 01/03/19 06:00 01/03/19 06:00 01/03/19 06:00 General appearance: Present: no acute distress, well-nourished, other (intubated on vent) - EENT Eyes: Present: PERRL, EOM intact - Neck Neck: Present: supple, normal ROM - Respiratory Respiratory effort: normal Respiratory: bilateral: diminished, negative: rales, rhonchi, wheezing - Cardiovascular Rhythm: regular Heart Sounds: Present: S1 & S2 - Extremities Extremities: no ischemia, No edema - Abdominal General gastrointestinal: soft, non-tender, non-distended, normal bowel sounds - Integumentary Integumentary: Present: clear, warm - Psychiatric Psychiatric: other (unresponsive ) - Neurologic Neurologic: other (noncommunicative) Results - Labs CBC & Chem 7: 01/03/19 05:30 01/03/19 05:30 Labs: Laboratory Last Values WBC 6.9 K/mm3 (4.5-11.0) 01/03/19 05:30 RBC 3.65 M/mm3 (3.65-5.03) 01/03/19 05:30 Hgb 10.0 gm/dl (10.1-14.3) L 01/03/19 05:30 Hct 30.2 % (30.3-42.9) L 01/03/19 05:30 MCV 83 fl (79-97) 01/03/19 05:30 MCH 27 pg (28-32) L 01/03/19 05:30 MCHC 33 % (30-34) 01/03/19 05:30 RDW 22.3 % (13.2-15.2) H 01/03/19 05:30 Plt Count 77 K/mm3 (140-440) L 01/03/19 05:30 Lymph % (Auto) 8.9 % (13.4-35.0) L 12/27/18 16:20 [place] % (Auto) 6.1 % (0.0-7.3) 12/28/18 07:30 Eos % (Auto) 0.1 % (0.0-4.3) 12/28/18 07:30 Baso % (Auto) 0.3 % (0.0-1.8) 12/27/18 16:20 Lymph # 0.6 K/mm3 (1.2-5.4) L 12/27/18 16:20 [place] # 0.5 K/mm3 (0.0-0.8) 12/27/18 16:20 Eos # 0.0 K/mm3 (0.0-0.4) 12/27/18 16:20 Baso # 0.0 K/mm3 (0.0-0.1) 12/27/18 16:20 Add Manual Diff Complete 01/02/19 16:45 Total Counted 100 01/02/19 16:45 Seg Neutrophils % 86.0 % (40.0-70.0) H 12/28/18 07:30 Seg Neuts % (Manual) 75.0 % (40.0-70.0) H 01/02/19 16:45 Band Neutrophils % 18.0 % 01/02/19 16:45 Lymphocytes % (Manual) 2.0 % (13.4-35.0) L 01/02/19 16:45 Reactive Lymphs % (Man) 0 % 01/02/19 16:45 Monocytes % (Manual) 4.0 % (0.0-7.3) 01/02/19 16:45 Eosinophils % (Manual) 1.0 % (0.0-4.3) 01/02/19 16:45 Basophils % (Manual) 0 % (0.0-1.8) 01/02/19 16:45 Metamyelocytes % 0 % 01/02/19 16:45 Myelocytes % 0 % 01/02/19 16:45 Promyelocytes % 0 % 01/02/19 16:45 Blast Cells % 0 % 01/02/19 16:45 Nucleated RBC % Not Reportable 01/02/19 16:45 Seg Neutrophils # 5.8 K/mm3 (1.8-7.7) 12/28/18 07:30 Seg Neutrophils # Man 5.1 K/mm3 (1.8-7.7) 01/02/19 16:45 Band Neutrophils # 1.2 K/mm3 01/02/19 16:45 Lymphocytes # (Manual) 0.1 K/mm3 (1.2-5.4) L 01/02/19 16:45 Abs React Lymphs (Man) 0.0 K/mm3 01/02/19 16:45 Monocytes # (Manual) 0.3 K/mm3 (0.0-0.8) 01/02/19 16:45 Eosinophils # (Manual) 0.1 K/mm3 (0.0-0.4) 01/02/19 16:45 Basophils # (Manual) 0.0 K/mm3 (0.0-0.1) 01/02/19 16:45 Metamyelocytes # 0.0 K/mm3 01/02/19 16:45 Myelocytes # 0.0 K/mm3 01/02/19 16:45 Promyelocytes # 0.0 K/mm3 01/02/19 16:45 Blast Cells # 0.0 K/mm3 01/02/19 16:45 WBC Morphology Not Reportable 01/02/19 16:45 Hypersegmented Neuts Not Reportable 01/02/19 16:45 Hyposegmented Neuts Not Reportable 01/02/19 16:45 Hypogranular Neuts Not Reportable 01/02/19 16:45 Smudge Cells Not Reportable 01/02/19 16:45 Toxic Granulation Not Reportable 01/02/19 16:45 Toxic Vacuolation Not Reportable 01/02/19 16:45 Dohle Bodies Not Reportable 01/02/19 16:45 Pelger-Huet Anomaly Not Reportable 01/02/19 16:45 Mark Rods Not Reportable 01/02/19 16:45 Platelet Estimate Consistent w auto 01/02/19 16:45 Clumped Platelets Not Reportable 01/02/19 16:45 Plt Clumps, EDTA Not Reportable 01/02/19 16:45 Large Platelets Not Reportable 01/02/19 16:45 Giant Platelets Few 01/02/19 16:45 Platelet Satelliting Not Reportable 01/02/19 16:45 Plt Morphology Comment Not Reportable 01/02/19 16:45 RBC Morphology Not Reportable 01/02/19 16:45 Dimorphic RBCs Not Reportable 01/02/19 16:45 Polychromasia Not Reportable 01/02/19 16:45 Hypochromasia 1+ 01/02/19 16:45 Poikilocytosis 2+ 01/02/19 16:45 Anisocytosis 2+ 01/02/19 16:45 Microcytosis Not Reportable 01/02/19 16:45 Macrocytosis Not Reportable 01/02/19 16:45 Spherocytes Not Reportable 01/02/19 16:45 Pappenheimer Bodies Not Reportable 01/02/19 16:45 Sickle Cells Not Reportable 01/02/19 16:45 Target Cells Not Reportable 01/02/19 16:45 Tear Drop Cells Not Reportable 01/02/19 16:45 Ovalocytes Not Reportable 01/02/19 16:45 Helmet Cells Not Reportable 01/02/19 16:45 Estrada-[place] Bodies Not Reportable 01/02/19 16:45 Webster Rings Not Reportable 01/02/19 16:45 Aneesh Cells Not Reportable 01/02/19 16:45 Bite Cells Not Reportable 01/02/19 16:45 Crenated Cell Not Reportable 01/02/19 16:45 Elliptocytes Not Reportable 01/02/19 16:45 Acanthocytes (Spur) Not Reportable 01/02/19 16:45 Rouleaux Not Reportable 01/02/19 16:45 Hemoglobin C Crystals Not Reportable 01/02/19 16:45 Schistocytes Not Reportable 01/02/19 16:45 Malaria parasites Not Reportable 01/02/19 16:45 Stef Bodies Not Reportable 01/02/19 16:45 Hem Pathologist Commnt No 01/02/19 16:45 PT 20.2 Sec. (12.2-14.9) H 12/12/18 08:00 INR 1.61 (0.87-1.13) H 12/12/18 08:00 APTT 30.9 Sec. (24.2-36.6) 12/10/18 10:40 POC ABG pH 7.325 (7.35-7.45) L 12/15/18 03:37 POC ABG pCO2 28.6 (35-45) L 12/15/18 03:37 POC ABG pO2 105 (80-105) 12/15/18 03:37 POC ABG HCO3 14.9 12/15/18 03:37 POC ABG Total CO2 16 12/15/18 03:37 POC ABG O2 Sat 98 12/15/18 03:37 POC ABG Base Excess -11 12/15/18 03:37 FiO2 25 % 12/15/18 03:37 Sodium 150 mmol/L (137-145) H 01/03/19 05:30 Potassium 3.4 mmol/L (3.6-5.0) L 01/03/19 05:30 Chloride 114.5 mmol/L (98-107) H 01/03/19 05:30 Carbon Dioxide 23 mmol/L (22-30) 01/03/19 05:30 Anion Gap 16 mmol/L 01/03/19 05:30 BUN 89 mg/dL (7-17) H 01/03/19 05:30 Creatinine 2.1 mg/dL (0.7-1.2) H 01/03/19 05:30 Estimated GFR 27 ml/min 01/03/19 05:30 BUN/Creatinine Ratio 42 % 01/03/19 05:30 Glucose 91 mg/dL (65-100) 01/03/19 05:30 POC Glucose 81 (70-105) 01/03/19 06:26 Hemoglobin A1c 4.9 % (4-6) 12/10/18 04:38 Lactic Acid 3.00 mmol/L (0.7-2.0) H* 12/08/18 15:21 Calcium 6.8 mg/dL (8.4-10.2) L 01/03/19 05:30 Phosphorus 7.00 mg/dL (2.5-4.5) H 01/02/19 05:20 Magnesium 2.30 mg/dL (1.7-2.3) 01/02/19 05:20 Total Bilirubin 0.40 mg/dL (0.1-1.2) 12/31/18 03:55 AST 42 units/L (5-40) H 12/31/18 03:55 ALT 13 units/L (7-56) 12/31/18 03:55 Alkaline Phosphatase 298 units/L (35-129) H 12/31/18 03:55 Total Creatine Kinase 258 units/L (30-135) H 12/08/18 13:40 C-Reactive Protein 19.60 mg/dL (0.00-1.30) H 12/09/18 18:18 Total Protein 4.1 g/dL (6.3-8.2) L 12/31/18 03:55 Albumin 1.1 g/dL (3.9-5) L 12/31/18 03:55 Albumin/Globulin Ratio 0.4 % 12/31/18 03:55 TSH 0.268 mlU/mL (0.270-4.200) L 12/09/18 15:54 Free T4 0.58 ng/dL (0.76-1.46) L 12/09/18 15:54 Urine Color Yolie (Yellow) 12/08/18 13:40 Urine Turbidity Cloudy (Clear) 12/08/18 13:40 Urine pH 7.0 (5.0-7.0) 12/08/18 13:40 Ur Specific Lexa 1.015 (1.003-1.030) 12/08/18 13:40 Urine Protein 100 mg/dl mg/dL (Negative) 12/08/18 13:40 Urine Glucose (UA) Neg mg/dL (Negative) 12/08/18 13:40 Urine Ketones Neg mg/dL (Negative) 12/08/18 13:40 Urine Blood Sm (Negative) 12/08/18 13:40 Urine Nitrite Neg (Negative) 12/08/18 13:40 Urine Bilirubin Neg (Negative) 12/08/18 13:40 Urine Urobilinogen 2.0 mg/dL (<2.0) 12/08/18 13:40 Ur Leukocyte Esterase Mod (Negative) 12/08/18 13:40 Urine WBC (Auto) 157.0 /HPF (0.0-6.0) H 12/08/18 13:40 Urine RBC (Auto) 8.0 /HPF (0.0-6.0) 12/08/18 13:40 U Epithel Cells (Auto) 1.0 /HPF (0-13.0) 12/08/18 13:40 Urine Bacteria (Auto) 4+ /HPF (Negative) 12/08/18 13:40 Urine Mucus 2+ /HPF 12/08/18 13:40 Random Vancomycin 15.9 ug/mL (0-40.0) 12/18/18 04:08 JEFFREY Screen Negative (Negative) 12/09/18 15:54 Blood Type B POSITIVE 01/01/19 09:07 Antibody Screen Negative 01/01/19 09:07 Crossmatch See Detail 01/01/19 09:07 Active Medications - Current Medications Current Medications: Generic Name Dose Route Start Last Admin Trade Name Freq PRN Reason Stop Dose Admin Acetaminophen 650 mg 12/09/18 01:00 12/28/18 00:24 Tylenol [place] 650 mg Q4H PRN Administration Pain MILD(1-3)/Fever >100.5/TURNER Albuterol 2.5 mg 12/09/18 00:31 Proventil IH Q4HRT PRN Shortness Of Breath Albuterol/Ipratropium 1 ampul 12/09/18 02:00 01/03/19 02:59 Duoneb *Not For Prn Use* IH 1 ampul Q6HRT KOLE Administration Lipase/Protease/Amylase 1 each 12/09/18 04:[address] 10,500 Unit FEEDTUBE PRN PRN For Clogged Feeding Tube Atorvastatin Calcium 20 mg 12/28/18 22:00 01/02/19 22:20 Lipitor PO 20 mg QHS KOLE Administration Dextrose 50 ml 12/24/18 00:42 12/24/18 00:30 D50w (25gm) Syringe IV 50 ml PRN PRN Administration Hypoglycemia Epoetin Walter 10,000 unit 01/03/19 10:00 Procrit SUB-Q Fr [facility] Hydrophilic Ointment 1 applic 12/14/18 13:00 Vaseline Lip Therapy TP DIRECT PRN Dry tongue Norepinephrine 4 mg in 250 mls @ 7.5 mls/hr 12/18/18 18:00 12/19/18 18:00 Levophed Drip 4 Mg/Ns 250 Ml IV 0 mcg/min TITR KOLE 0 mls/hr Titration Protocol 2 MCG/MIN Desmopressin Acetate 23 mcg/ 55.75 mls @ 100 mls/hr 01/03/19 10:00 Sodium Chloride IV 01/03/19 10:33 [employer] Insulin Human Lispro 0 unit 12/11/18 12:00 01/03/19 06:21 Humalog SUB-Q Not Given Q6HR [facility] Protocol Lansoprazole 30 mg 12/12/18 10:00 01/02/19 22:19 Prevacid Solutab FEEDTUBE 30 mg BID KOLE Administration Metoprolol Tartrate 25 mg 12/27/18 23:45 01/02/19 17:06 Lopressor PO 25 mg BID@0800,1700 KOLE Administration Multi-Ingred Cream/Lotion/Oil/Oint 1 applic 12/08/18 13:31 Artificial Tears Ophth Oint OU Q4HR PRN Dry Eye(s) Ondansetron HCl 4 mg 12/09/18 00:31 Zofran IV Q8H PRN Nausea And Vomiting Promethazine HCl/Codeine 5 ml 12/27/18 23:49 Phenergan/Codeine 6.25-10 Mg/5ml PO Q6H PRN cough Simple Syrup 15 ml 12/09/18 04:05 Simple Syrup FEEDTUBE PRN PRN Hypoglycemia Simple Syrup 30 ml 12/09/18 04:05 Simple Syrup FEEDTUBE PRN PRN Hypoglycemia Sodium Bicarbonate 325 mg 12/09/18 04:05 Sodium Bicarbonate FEEDTUBE PRN PRN For Clogged Feeding Tube Sodium Chloride 10 ml 12/09/18 10:00 01/02/19 22:20 Sodium Chloride Flush Syringe 10 Ml IV 10 ml BID KOLE Administration Sodium Chloride 10 ml 12/09/18 00:31 12/17/18 10:47 Sodium Chloride Flush Syringe 10 Ml IV 10 ml PRN PRN Administration LINE FLUSH Nutrition/Malnutrition Assess - Dietary Evaluation Nutrition/Malnutrition Findings: Nutrition Notes Start: 12/09/18 12:11 Freq: Status: Active Protocol: Document 01/02/19 09:18 CP (Rec: 01/02/19 09:20 CP [id number]) Co-Sign 01/02/19 09:18 LP Nutrition Notes Initial or Follow up Brief Note Current Diet TF-Glucerna 1.2 at 50 mL/hr Subjective/Other Information TF infusing at goal rate. Per nurse, pt tolerating TF and waiting on platelet results for trach/PEG. Nutrition Intervention Follow-Up By: 01/06/19 Additional Comments F/U: TF tolerance
[2019-01-03 09:14] LABS: Basophils % (Manual) 0 % (0.0-1.8); Eosinophils % (Manual) 0 % (0.0-4.3); Total Cells Counted 100
[2019-01-03 09:24] LABS: Anisocytosis 1+; Hypochromasia Few; Ovalocytes Rare; Poikilocytosis 1+; Target Cells 1+
[2019-01-03 09:25] LABS: Platelet Estimate Consistent w Auto
[2019-01-03] MEDS ORDERED: NACL 0.9% 500 ML 500 ML IV ONE (09:29)
--- NOTE | 2019-01-03 09:33 | Progress Note ---
Assessment and Plan 88 y/o female with acute respiratory failure, altered mental state, presumptive acute renal failure and hypotension with thrombocytopenia and dirty urine analysis. 1. asked for whatever platelets that are left to be transfused now. DDAVP is coming. 2. Patient continues to fail PSV with periods of apnea. Will continue to attempt daily after trach placed. 3. No new notes from Neurology in the last 96 hours. 4. Trach and peg placement today CCT 31 minutes. Subjective Date of service: 01/03/19 Principal diagnosis: Rectal Bleed Interval history: Spoke with nursing this am about having DDAVP brought up for administration. Platelets at 77 this am. Good enough for surgery but have asked them to transfuse whatever remaining platelets are left holding right now. Responded appropriately to blood products. Mental state is still the same. Objective Vital Signs - 12hr 01/02/19 01/02/19 01/02/19 22:00 22:20 23:00 Temperature Pulse Rate 69 69 72 Pulse Rate [ Apical] Pulse Rate [ From Monitor] Pulse Rate [ Throughout] Respiratory 18 18 18 Rate Respiratory Rate [ Throughout] Blood Pressure 89/41 103/42 85/44 O2 Sat by Pulse 100 100 100 Oximetry 01/02/19 01/03/19 01/03/19 23:26 00:00 01:00 Temperature 97.5 F L Pulse Rate 71 62 64 Pulse Rate [ 66 Apical] Pulse Rate [ 66 From Monitor] Pulse Rate [ Throughout] Respiratory 18 18 Rate Respiratory Rate [ Throughout] Blood Pressure 78/42 103/45 120/49 O2 Sat by Pulse 100 100 100 Oximetry 01/03/19 01/03/19 01/03/19 02:00 02:59 03:00 Temperature Pulse Rate 67 62 Pulse Rate [ Apical] Pulse Rate [ From Monitor] Pulse Rate [ 64 Throughout] Respiratory 18 16 Rate Respiratory 20 Rate [ Throughout] Blood Pressure 121/52 119/50 O2 Sat by Pulse 100 100 Oximetry 01/03/19 01/03/19 01/03/19 03:10 04:00 05:00 Temperature 97.4 F L Pulse Rate 67 60 Pulse Rate [ 61 Apical] Pulse Rate [ 61 From Monitor] Pulse Rate [ 68 Throughout] Respiratory 18 18 Rate Respiratory 18 Rate [ Throughout] Blood Pressure 121/49 125/50 O2 Sat by Pulse 100 100 Oximetry 01/03/19 06:00 Temperature Pulse Rate 68 Pulse Rate [ Apical] Pulse Rate [ From Monitor] Pulse Rate [ Throughout] Respiratory 18 Rate Respiratory Rate [ Throughout] Blood Pressure 113/49 O2 Sat by Pulse 100 Oximetry Constitutional: no acute distress, comatose, other (on vent cmv) Eyes: non-icteric ENT: oropharynx moist, other (ETT in position, large/edematous tongue) Neck: supple Effort: normal Ascultation: Bilateral: clear, diminished breath sounds, other (coarse BS bilaterally) Cardiovascular: regular rate and rhythm, other (pacemaker rhythm) Gastrointestinal: normoactive bowel sounds, non-distended Integumentary: normal Extremities: no cyanosis, no edema, pink and warm Neurologic: pupils equal and round, other (comatose, flaccid extremities, does not track or follow commands, + Cough, Apnea on PSV) Psychiatric: other (unable to assess) CBC and BMP: 01/03/19 05:30 01/03/19 05:30 ABG, PT/INR, D-dimer: ABG POC ABG pH 7.325 (7.35-7.45) L 12/15/18 03:37 POC ABG pCO2 28.6 (35-45) L 12/15/18 03:37 POC ABG pO2 105 (80-105) 12/15/18 03:37 POC ABG HCO3 14.9 12/15/18 03:37 POC ABG Total CO2 16 12/15/18 03:37 POC ABG O2 Sat 98 12/15/18 03:37 PT/INR, D-dimer PT 20.2 Sec. (12.2-14.9) H 12/12/18 08:00 INR 1.61 (0.87-1.13) H 12/12/18 08:00 Abnormal lab findings: Abnormal Labs 12/08/18 12/08/18 12/08/18 12:58 13:40 13:40 WBC RBC Hgb Hct MCV MCH RDW Plt Count Lymph % (Auto) [place] % (Auto) Lymph # Seg Neutrophils % Seg Neuts % (Manual) Lymphocytes % (Manual) Monocytes % (Manual) Nucleated RBC % Seg Neutrophils # Seg Neutrophils # Man Lymphocytes # (Manual) Monocytes # (Manual) PT INR POC ABG pH POC ABG pCO2 POC ABG pO2 Sodium Potassium Chloride Carbon Dioxide BUN Creatinine Glucose POC Glucose 143 H Lactic Acid Calcium Phosphorus Magnesium Total Bilirubin AST Alkaline Phosphatase Total Creatine Kinase C-Reactive Protein Total Protein Albumin TSH Free T4 Urine WBC (Auto) 157.0 H Crossmatch See Detail 12/08/18 12/08/18 12/08/18 13:40 13:40 13:40 WBC RBC 3.06 L Hgb 6.8 L Hct 21.1 L MCV 69 L MCH 22 L RDW 16.2 H Plt Count 56 L Lymph % (Auto) [place] % (Auto) Lymph # Seg Neutrophils % Seg Neuts % (Manual) Lymphocytes % (Manual) 2.0 L Monocytes % (Manual) Nucleated RBC % Seg Neutrophils # Seg Neutrophils # Man Lymphocytes # (Manual) 0.2 L Monocytes # (Manual) PT INR POC ABG pH POC ABG pCO2 POC ABG pO2 Sodium Potassium 3.2 L Chloride Carbon Dioxide 18 L BUN 64 H Creatinine 1.5 H Glucose 145 H POC Glucose Lactic Acid 4.00 H* Calcium 7.7 L Phosphorus Magnesium Total Bilirubin AST Alkaline Phosphatase Total Creatine Kinase 258 H C-Reactive Protein Total Protein 4.6 L Albumin 1.8 L TSH Free T4 Urine WBC (Auto) Crossmatch 12/08/18 12/08/18 12/08/18 14:29 15:21 16:06 WBC RBC Hgb Hct MCV MCH RDW Plt Count Lymph % (Auto) [place] % (Auto) Lymph # Seg Neutrophils % Seg Neuts % (Manual) Lymphocytes % (Manual) Monocytes % (Manual) Nucleated RBC % Seg Neutrophils # Seg Neutrophils # Man Lymphocytes # (Manual) Monocytes # (Manual) PT 20.5 H INR 1.64 H POC ABG pH POC ABG pCO2 34.2 L POC ABG pO2 465 H Sodium Potassium Chloride Carbon Dioxide BUN Creatinine Glucose POC Glucose Lactic Acid 3.00 H* Calcium Phosphorus Magnesium Total Bilirubin AST Alkaline Phosphatase Total Creatine Kinase C-Reactive Protein Total Protein Albumin TSH Free T4 Urine WBC (Auto) Crossmatch 12/09/18 12/09/18 12/09/18 02:31 05:36 05:36 WBC 14.5 H RBC Hgb Hct MCV 75 L MCH 25 L RDW 20.4 H Plt Count 68 L Lymph % (Auto) [place] % (Auto) Lymph # Seg Neutrophils % Seg Neuts % (Manual) 81.0 H Lymphocytes % (Manual) 1.0 L Monocytes % (Manual) Nucleated RBC % Seg Neutrophils # Seg Neutrophils # Man 11.7 H Lymphocytes # (Manual) 0.1 L Monocytes # (Manual) PT INR POC ABG pH POC ABG pCO2 POC ABG pO2 Sodium Potassium Chloride 107.6 H Carbon Dioxide 18 L BUN 75 H Creatinine 1.9 H Glucose 136 H POC Glucose 152 H Lactic Acid Calcium 7.9 L Phosphorus Magnesium Total Bilirubin 1.60 H AST 44 H Alkaline Phosphatase Total Creatine Kinase C-Reactive Protein Total Protein 5.2 L Albumin 2.4 L TSH Free T4 Urine WBC (Auto) Crossmatch 12/09/18 12/09/18 12/09/18 05:43 10:47 13:46 WBC RBC Hgb Hct MCV MCH RDW Plt Count Lymph % (Auto) [place] % (Auto) Lymph # Seg Neutrophils % Seg Neuts % (Manual) Lymphocytes % (Manual) Monocytes % (Manual) Nucleated RBC % Seg Neutrophils # Seg Neutrophils # Man Lymphocytes # (Manual) Monocytes # (Manual) PT INR POC ABG pH 7.308 L POC ABG pCO2 POC ABG pO2 183 H Sodium Potassium Chloride Carbon Dioxide BUN Creatinine Glucose POC Glucose 150 H 162 H Lactic Acid Calcium Phosphorus Magnesium Total Bilirubin AST Alkaline Phosphatase Total Creatine Kinase C-Reactive Protein Total Protein Albumin TSH Free T4 Urine WBC (Auto) Crossmatch 12/09/18 12/09/18 12/09/18 15:54 15:54 16:40 WBC RBC Hgb Hct MCV MCH RDW Plt Count Lymph % (Auto) [place] % (Auto) Lymph # Seg Neutrophils % Seg Neuts % (Manual) Lymphocytes % (Manual) Monocytes % (Manual) Nucleated RBC % Seg Neutrophils # Seg Neutrophils # Man Lymphocytes # (Manual) Monocytes # (Manual) PT INR POC ABG pH POC ABG pCO2 POC ABG pO2 Sodium Potassium Chloride Carbon Dioxide BUN Creatinine Glucose POC Glucose 197 H Lactic Acid Calcium Phosphorus Magnesium Total Bilirubin AST Alkaline Phosphatase Total Creatine Kinase C-Reactive Protein Total Protein Albumin TSH 0.268 L Free T4 0.58 L Urine WBC (Auto) Crossmatch 12/09/18 12/09/18 12/09/18 18:18 18:18 21:51 WBC RBC Hgb Hct MCV MCH RDW Plt Count Lymph % (Auto) [place] % (Auto) Lymph # Seg Neutrophils % Seg Neuts % (Manual) Lymphocytes % (Manual) Monocytes % (Manual) Nucleated RBC % Seg Neutrophils # Seg Neutrophils # Man Lymphocytes # (Manual) Monocytes # (Manual) PT INR POC ABG pH POC ABG pCO2 POC ABG pO2 Sodium Potassium Chloride 108.2 H Carbon Dioxide 16 L BUN 89 H Creatinine 2.3 H Glucose 180 H POC Glucose 198 H Lactic Acid Calcium 7.9 L Phosphorus Magnesium Total Bilirubin AST Alkaline Phosphatase Total Creatine Kinase C-Reactive Protein 19.60 H Total Protein Albumin TSH Free T4 Urine WBC (Auto) Crossmatch 12/10/18 12/10/18 12/10/18 01:59 04:14 04:38 WBC 11.5 H RBC Hgb Hct MCV 75 L MCH 25 L RDW 21.1 H Plt Count 81 L Lymph % (Auto) 5.6 L [place] % (Auto) Lymph # 0.6 L Seg Neutrophils % 89.8 H Seg Neuts % (Manual) Lymphocytes % (Manual) Monocytes % (Manual) Nucleated RBC % Seg Neutrophils # 10.3 H Seg Neutrophils # Man Lymphocytes # (Manual) Monocytes # (Manual) PT INR POC ABG pH 7.273 L POC ABG pCO2 32.1 L POC ABG pO2 161 H Sodium Potassium Chloride Carbon Dioxide BUN Creatinine Glucose POC Glucose 219 H Lactic Acid Calcium Phosphorus Magnesium Total Bilirubin AST Alkaline Phosphatase Total Creatine Kinase C-Reactive Protein Total Protein Albumin TSH Free T4 Urine WBC (Auto) Crossmatch 12/10/18 12/10/18 12/10/18 04:38 05:07 07:26 WBC RBC Hgb Hct MCV MCH RDW Plt Count Lymph % (Auto) [place] % (Auto) Lymph # Seg Neutrophils % Seg Neuts % (Manual) Lymphocytes % (Manual) Monocytes % (Manual) Nucleated RBC % Seg Neutrophils # Seg Neutrophils # Man Lymphocytes # (Manual) Monocytes # (Manual) PT INR POC ABG pH POC ABG pCO2 POC ABG pO2 Sodium Potassium Chloride 112.5 H Carbon Dioxide 14 L BUN 94 H Creatinine 2.4 H Glucose 207 H POC Glucose 221 H 212 H Lactic Acid Calcium 7.7 L Phosphorus Magnesium Total Bilirubin AST Alkaline Phosphatase Total Creatine Kinase C-Reactive Protein Total Protein Albumin TSH Free T4 Urine WBC (Auto) Crossmatch 12/10/18 12/10/18 12/10/18 10:40 11:15 14:21 WBC RBC Hgb Hct MCV MCH RDW Plt Count Lymph % (Auto) [place] % (Auto) Lymph # Seg Neutrophils % Seg Neuts % (Manual) Lymphocytes % (Manual) Monocytes % (Manual) Nucleated RBC % Seg Neutrophils # Seg Neutrophils # Man Lymphocytes # (Manual) Monocytes # (Manual) PT 21.4 H INR 1.73 H POC ABG pH 7.214 L POC ABG pCO2 32.8 L POC ABG pO2 Sodium Potassium Chloride Carbon Dioxide BUN Creatinine Glucose POC Glucose 227 H Lactic Acid Calcium Phosphorus Magnesium Total Bilirubin AST Alkaline Phosphatase Total Creatine Kinase C-Reactive Protein Total Protein Albumin TSH Free T4 Urine WBC (Auto) Crossmatch 12/10/18 12/10/18 12/11/18 15:47 22:38 03:36 WBC RBC Hgb Hct MCV MCH RDW Plt Count Lymph % (Auto) [place] % (Auto) Lymph # Seg Neutrophils % Seg Neuts % (Manual) Lymphocytes % (Manual) Monocytes % (Manual) Nucleated RBC % Seg Neutrophils # Seg Neutrophils # Man Lymphocytes # (Manual) Monocytes # (Manual) PT INR POC ABG pH POC ABG pCO2 26.2 L POC ABG pO2 138 H Sodium Potassium Chloride Carbon Dioxide BUN Creatinine Glucose POC Glucose 202 H 259 H Lactic Acid Calcium Phosphorus Magnesium Total Bilirubin AST Alkaline Phosphatase Total Creatine Kinase C-Reactive Protein Total Protein Albumin TSH Free T4 Urine WBC (Auto) Crossmatch 12/11/18 12/11/18 12/11/18 04:12 05:00 06:19 WBC RBC Hgb Hct MCV MCH RDW Plt Count Lymph % (Auto) [place] % (Auto) Lymph # Seg Neutrophils % Seg Neuts % (Manual) Lymphocytes % (Manual) Monocytes % (Manual) Nucleated RBC % Seg Neutrophils # Seg Neutrophils # Man Lymphocytes # (Manual) Monocytes # (Manual) PT 19.5 H INR 1.54 H POC ABG pH POC ABG pCO2 24.6 L POC ABG pO2 119 H Sodium Potassium Chloride Carbon Dioxide BUN Creatinine Glucose POC Glucose 174 H Lactic Acid Calcium Phosphorus Magnesium Total Bilirubin AST Alkaline Phosphatase Total Creatine Kinase C-Reactive Protein Total Protein Albumin TSH Free T4 Urine WBC (Auto) Crossmatch 12/11/18 12/11/18 12/11/18 11:10 11:10 18:10 WBC 14.3 H RBC Hgb Hct MCV 73 L MCH 24 L RDW 21.5 H Plt Count Lymph % (Auto) [place] % (Auto) Lymph # Seg Neutrophils % Seg Neuts % (Manual) Lymphocytes % (Manual) Monocytes % (Manual) Nucleated RBC % Seg Neutrophils # Seg Neutrophils # Man Lymphocytes # (Manual) Monocytes # (Manual) PT INR POC ABG pH POC ABG pCO2 POC ABG pO2 Sodium Potassium Chloride 110.5 H Carbon Dioxide 15 L BUN 101 H Creatinine 2.4 H Glucose 119 H POC Glucose 147 H Lactic Acid Calcium 7.7 L Phosphorus Magnesium Total Bilirubin AST Alkaline Phosphatase Total Creatine Kinase C-Reactive Protein Total Protein Albumin TSH Free T4 Urine WBC (Auto) Crossmatch 12/11/18 12/12/18 12/12/18 23:25 05:37 06:03 WBC RBC Hgb Hct MCV MCH RDW Plt Count Lymph % (Auto) [place] % (Auto) Lymph # Seg Neutrophils % Seg Neuts % (Manual) Lymphocytes % (Manual) Monocytes % (Manual) Nucleated RBC % Seg Neutrophils # Seg Neutrophils # Man Lymphocytes # (Manual) Monocytes # (Manual) PT INR POC ABG pH 7.346 L POC ABG pCO2 28.3 L POC ABG pO2 120 H Sodium Potassium Chloride Carbon Dioxide BUN Creatinine Glucose POC Glucose 143 H 154 H Lactic Acid Calcium Phosphorus Magnesium Total Bilirubin AST Alkaline Phosphatase Total Creatine Kinase C-Reactive Protein Total Protein Albumin TSH Free T4 Urine WBC (Auto) Crossmatch 12/12/18 12/12/18 12/12/18 08:00 08:00 08:00 WBC 16.2 H RBC Hgb Hct MCV 74 L MCH 25 L RDW 21.9 H Plt Count 21 L Lymph % (Auto) [place] % (Auto) Lymph # Seg Neutrophils % Seg Neuts % (Manual) Lymphocytes % (Manual) Monocytes % (Manual) Nucleated RBC % Seg Neutrophils # Seg Neutrophils # Man Lymphocytes # (Manual) Monocytes # (Manual) PT 20.2 H INR 1.61 H POC ABG pH POC ABG pCO2 POC ABG pO2 Sodium Potassium Chloride 107.4 H Carbon Dioxide 16 L BUN 101 H Creatinine 2.3 H Glucose 169 H POC Glucose Lactic Acid Calcium 8.2 L Phosphorus Magnesium Total Bilirubin AST Alkaline Phosphatase Total Creatine Kinase C-Reactive Protein Total Protein Albumin TSH Free T4 Urine WBC (Auto) Crossmatch 12/12/18 12/12/18 12/13/18 12:59 18:01 04:28 WBC 18.6 H RBC Hgb Hct MCV 74 L MCH 24 L RDW 21.8 H Plt Count 34 L Lymph % (Auto) [place] % (Auto) Lymph # Seg Neutrophils % Seg Neuts % (Manual) 97.0 H Lymphocytes % (Manual) 2.0 L Monocytes % (Manual) Nucleated RBC % 1.0 H Seg Neutrophils # Seg Neutrophils # Man 18.0 H Lymphocytes # (Manual) 0.4 L Monocytes # (Manual) PT INR POC ABG pH POC ABG pCO2 POC ABG pO2 Sodium Potassium Chloride Carbon Dioxide BUN Creatinine Glucose POC Glucose 158 H 123 H Lactic Acid Calcium Phosphorus Magnesium Total Bilirubin AST Alkaline Phosphatase Total Creatine Kinase C-Reactive Protein Total Protein Albumin TSH Free T4 Urine WBC (Auto) Crossmatch 12/13/18 12/13/18 12/13/18 04:28 04:45 19:17 WBC RBC Hgb Hct MCV MCH RDW Plt Count Lymph % (Auto) [place] % (Auto) Lymph # Seg Neutrophils % Seg Neuts % (Manual) Lymphocytes % (Manual) Monocytes % (Manual) Nucleated RBC % Seg Neutrophils # Seg Neutrophils # Man Lymphocytes # (Manual) Monocytes # (Manual) PT INR POC ABG pH 7.327 L POC ABG pCO2 31.1 L POC ABG pO2 136 H Sodium Potassium Chloride 112.0 H Carbon Dioxide 17 L BUN 97 H Creatinine 2.2 H Glucose POC Glucose 106 H Lactic Acid Calcium 8.1 L Phosphorus Magnesium Total Bilirubin AST Alkaline Phosphatase Total Creatine Kinase C-Reactive Protein Total Protein Albumin TSH Free T4 Urine WBC (Auto) Crossmatch 12/13/18 12/14/18 12/14/18 23:24 03:35 03:35 WBC 22.0 H RBC Hgb Hct MCV 75 L MCH 24 L RDW 22.2 H Plt Count 44 L Lymph % (Auto) [place] % (Auto) Lymph # Seg Neutrophils % Seg Neuts % (Manual) 96.0 H Lymphocytes % (Manual) 3.0 L Monocytes % (Manual) Nucleated RBC % Seg Neutrophils # Seg Neutrophils # Man 21.1 H Lymphocytes # (Manual) 0.7 L Monocytes # (Manual) PT INR POC ABG pH POC ABG pCO2 POC ABG pO2 Sodium 136 L Potassium Chloride 107.2 H Carbon Dioxide 15 L BUN 87 H Creatinine 1.7 H Glucose 156 H POC Glucose 108 H Lactic Acid Calcium 7.7 L Phosphorus Magnesium Total Bilirubin AST Alkaline Phosphatase Total Creatine Kinase C-Reactive Protein Total Protein Albumin TSH Free T4 Urine WBC (Auto) Crossmatch 12/14/18 12/14/18 12/14/18 04:58 05:37 12:10 WBC RBC Hgb Hct MCV MCH RDW Plt Count Lymph % (Auto) [place] % (Auto) Lymph # Seg Neutrophils % Seg Neuts % (Manual) Lymphocytes % (Manual) Monocytes % (Manual) Nucleated RBC % Seg Neutrophils # Seg Neutrophils # Man Lymphocytes # (Manual) Monocytes # (Manual) PT INR POC ABG pH 7.301 L POC ABG pCO2 32.6 L POC ABG pO2 138 H Sodium Potassium Chloride Carbon Dioxide BUN Creatinine Glucose POC Glucose 178 H 208 H Lactic Acid Calcium Phosphorus Magnesium Total Bilirubin AST Alkaline Phosphatase Total Creatine Kinase C-Reactive Protein Total Protein Albumin TSH Free T4 Urine WBC (Auto) Crossmatch 12/14/18 12/14/18 12/15/18 17:44 23:16 03:37 WBC RBC Hgb Hct MCV MCH RDW Plt Count Lymph % (Auto) [place] % (Auto) Lymph # Seg Neutrophils % Seg Neuts % (Manual) Lymphocytes % (Manual) Monocytes % (Manual) Nucleated RBC % Seg Neutrophils # Seg Neutrophils # Man Lymphocytes # (Manual) Monocytes # (Manual) PT INR POC ABG pH 7.325 L POC ABG pCO2 28.6 L POC ABG pO2 Sodium Potassium Chloride Carbon Dioxide BUN Creatinine Glucose POC Glucose 172 H 123 H Lactic Acid Calcium Phosphorus Magnesium Total Bilirubin AST Alkaline Phosphatase Total Creatine Kinase C-Reactive Protein Total Protein Albumin TSH Free T4 Urine WBC (Auto) Crossmatch 12/15/18 12/15/18 12/15/18 05:30 05:30 05:43 WBC 20.1 H RBC Hgb 9.5 L Hct 29.2 L MCV 74 L MCH 24 L RDW 22.7 H Plt Count 48 L Lymph % (Auto) [place] % (Auto) Lymph # Seg Neutrophils % Seg Neuts % (Manual) 96.0 H Lymphocytes % (Manual) 1.0 L Monocytes % (Manual) Nucleated RBC % Seg Neutrophils # Seg Neutrophils # Man 19.3 H Lymphocytes # (Manual) 0.2 L Monocytes # (Manual) PT INR POC ABG pH POC ABG pCO2 POC ABG pO2 Sodium Potassium Chloride 110.8 H Carbon Dioxide 17 L BUN 83 H Creatinine 1.6 H Glucose 150 H POC Glucose 151 H Lactic Acid Calcium 7.7 L Phosphorus Magnesium Total Bilirubin AST Alkaline Phosphatase Total Creatine Kinase C-Reactive Protein Total Protein Albumin TSH Free T4 Urine WBC (Auto) Crossmatch 12/15/18 12/15/18 12/16/18 12:56 18:21 00:10 WBC RBC Hgb Hct MCV MCH RDW Plt Count Lymph % (Auto) [place] % (Auto) Lymph # Seg Neutrophils % Seg Neuts % (Manual) Lymphocytes % (Manual) Monocytes % (Manual) Nucleated RBC % Seg Neutrophils # Seg Neutrophils # Man Lymphocytes # (Manual) Monocytes # (Manual) PT INR POC ABG pH POC ABG pCO2 POC ABG pO2 Sodium Potassium Chloride Carbon Dioxide BUN Creatinine Glucose POC Glucose 190 H 143 H 174 H Lactic Acid Calcium Phosphorus Magnesium Total Bilirubin AST Alkaline Phosphatase Total Creatine Kinase C-Reactive Protein Total Protein Albumin TSH Free T4 Urine WBC (Auto) Crossmatch 12/16/18 12/16/18 12/16/18 05:24 05:30 05:30 WBC 17.1 H RBC Hgb 9.1 L Hct 28.8 L MCV 76 L MCH 24 L RDW 23.5 H Plt Count 37 L Lymph % (Auto) [place] % (Auto) Lymph # Seg Neutrophils % Seg Neuts % (Manual) Lymphocytes % (Manual) 9.0 L Monocytes % (Manual) 9.0 H Nucleated RBC % Seg Neutrophils # Seg Neutrophils # Man 9.6 H Lymphocytes # (Manual) Monocytes # (Manual) 1.5 H PT INR POC ABG pH POC ABG pCO2 POC ABG pO2 Sodium Potassium Chloride 110.8 H Carbon Dioxide 15 L BUN 81 H Creatinine 1.6 H Glucose 161 H POC Glucose 154 H Lactic Acid Calcium 7.6 L Phosphorus Magnesium Total Bilirubin AST Alkaline Phosphatase Total Creatine Kinase C-Reactive Protein Total Protein Albumin TSH Free T4 Urine WBC (Auto) Crossmatch 12/16/18 12/16/18 12/16/18 12:31 17:42 21:56 WBC RBC Hgb Hct MCV MCH RDW Plt Count Lymph % (Auto) [place] % (Auto) Lymph # Seg Neutrophils % Seg Neuts % (Manual) Lymphocytes % (Manual) Monocytes % (Manual) Nucleated RBC % Seg Neutrophils # Seg Neutrophils # Man Lymphocytes # (Manual) Monocytes # (Manual) PT INR POC ABG pH POC ABG pCO2 POC ABG pO2 Sodium Potassium Chloride Carbon Dioxide BUN Creatinine Glucose POC Glucose 172 H 173 H 118 H Lactic Acid Calcium Phosphorus Magnesium Total Bilirubin AST Alkaline Phosphatase Total Creatine Kinase C-Reactive Protein Total Protein Albumin TSH Free T4 Urine WBC (Auto) Crossmatch 12/16/18 12/17/18 12/17/18 23:38 04:24 04:24 WBC 19.2 H RBC Hgb 9.5 L Hct 29.7 L MCV 76 L MCH 24 L RDW 24.4 H Plt Count 26 L Lymph % (Auto) [place] % (Auto) Lymph # Seg Neutrophils % Seg Neuts % (Manual) Lymphocytes % (Manual) 6.0 L Monocytes % (Manual) Nucleated RBC % Seg Neutrophils # Seg Neutrophils # Man 13.1 H Lymphocytes # (Manual) Monocytes # (Manual) PT INR POC ABG pH POC ABG pCO2 POC ABG pO2 Sodium 134 L Potassium Chloride 110.0 H Carbon Dioxide 14 L BUN 83 H Creatinine 1.6 H Glucose POC Glucose 109 H Lactic Acid Calcium 7.8 L Phosphorus Magnesium Total Bilirubin AST Alkaline Phosphatase Total Creatine Kinase C-Reactive Protein Total Protein Albumin TSH Free T4 Urine WBC (Auto) Crossmatch 12/17/18 12/17/18 12/18/18 06:42 17:49 00:40 WBC RBC Hgb Hct MCV MCH RDW Plt Count Lymph % (Auto) [place] % (Auto) Lymph # Seg Neutrophils % Seg Neuts % (Manual) Lymphocytes % (Manual) Monocytes % (Manual) Nucleated RBC % Seg Neutrophils # Seg Neutrophils # Man Lymphocytes # (Manual) Monocytes # (Manual) PT INR POC ABG pH POC ABG pCO2 POC ABG pO2 Sodium Potassium Chloride 113.1 H Carbon Dioxide 13 L BUN 82 H Creatinine 1.6 H Glucose POC Glucose 66 L 109 H Lactic Acid Calcium 8.0 L Phosphorus Magnesium Total Bilirubin AST Alkaline Phosphatase Total Creatine Kinase C-Reactive Protein Total Protein Albumin TSH Free T4 Urine WBC (Auto) Crossmatch 12/18/18 12/18/18 12/18/18 04:08 04:08 12:45 WBC 26.5 H RBC 3.63 L Hgb 8.7 L Hct 26.8 L MCV 74 L MCH 24 L RDW 23.3 H Plt Count 24 L Lymph % (Auto) [place] % (Auto) Lymph # Seg Neutrophils % Seg Neuts % (Manual) Lymphocytes % (Manual) Monocytes % (Manual) Nucleated RBC % Seg Neutrophils # Seg Neutrophils # Man Lymphocytes # (Manual) Monocytes # (Manual) PT INR POC ABG pH POC ABG pCO2 POC ABG pO2 Sodium Potassium Chloride 114.3 H Carbon Dioxide 16 L BUN 82 H Creatinine 1.7 H Glucose POC Glucose 117 H Lactic Acid Calcium 7.8 L Phosphorus 5.10 H Magnesium Total Bilirubin AST Alkaline Phosphatase Total Creatine Kinase C-Reactive Protein Total Protein Albumin TSH Free T4 Urine WBC (Auto) Crossmatch 03/12/18/18 12/19/18 17:42 23:39 04:22 WBC 20.4 H RBC 3.01 L Hgb 7.2 L Hct 22.6 L MCV 75 L MCH 24 L RDW 24.5 H Plt Count 52 L D Lymph % (Auto) [place] % (Auto) Lymph # Seg Neutrophils % Seg Neuts % (Manual) Lymphocytes % (Manual) Monocytes % (Manual) Nucleated RBC % Seg Neutrophils # Seg Neutrophils # Man Lymphocytes # (Manual) Monocytes # (Manual) PT INR POC ABG pH POC ABG pCO2 POC ABG pO2 Sodium Potassium Chloride Carbon Dioxide BUN Creatinine Glucose POC Glucose 121 H 184 H Lactic Acid Calcium Phosphorus Magnesium Total Bilirubin AST Alkaline Phosphatase Total Creatine Kinase C-Reactive Protein Total Protein Albumin TSH Free T4 Urine WBC (Auto) Crossmatch 12/19/18 12/19/18 12/19/18 04:22 12:43 18:12 WBC RBC Hgb Hct MCV MCH RDW Plt Count Lymph % (Auto) [place] % (Auto) Lymph # Seg Neutrophils % Seg Neuts % (Manual) Lymphocytes % (Manual) Monocytes % (Manual) Nucleated RBC % Seg Neutrophils # Seg Neutrophils # Man Lymphocytes # (Manual) Monocytes # (Manual) PT INR POC ABG pH POC ABG pCO2 POC ABG pO2 Sodium Potassium Chloride 112.9 H Carbon Dioxide 15 L BUN 76 H Creatinine 1.8 H Glucose 107 H POC Glucose 141 H 227 H Lactic Acid Calcium 7.4 L Phosphorus Magnesium Total Bilirubin AST Alkaline Phosphatase Total Creatine Kinase C-Reactive Protein Total Protein Albumin TSH Free T4 Urine WBC (Auto) Crossmatch 12/19/18 12/19/18 12/20/18 23:55 Unknown 03:07 WBC 15.7 H RBC 2.92 L Hgb 7.2 L 7.1 L Hct 22.2 L 21.6 L MCV 74 L MCH 24 L RDW 24.3 H Plt Count 23 L Lymph % (Auto) [place] % (Auto) Lymph # Seg Neutrophils % Seg Neuts % (Manual) Lymphocytes % (Manual) Monocytes % (Manual) Nucleated RBC % Seg Neutrophils # Seg Neutrophils # Man Lymphocytes # (Manual) Monocytes # (Manual) PT INR POC ABG pH POC ABG pCO2 POC ABG pO2 Sodium Potassium Chloride Carbon Dioxide BUN Creatinine Glucose POC Glucose 174 H Lactic Acid Calcium Phosphorus Magnesium Total Bilirubin AST Alkaline Phosphatase Total Creatine Kinase C-Reactive Protein Total Protein Albumin TSH Free T4 Urine WBC (Auto) Crossmatch 12/20/18 12/20/18 12/20/18 03:07 05:20 11:00 WBC RBC Hgb Hct MCV MCH RDW Plt Count Lymph % (Auto) [place] % (Auto) Lymph # Seg Neutrophils % Seg Neuts % (Manual) Lymphocytes % (Manual) Monocytes % (Manual) Nucleated RBC % Seg Neutrophils # Seg Neutrophils # Man Lymphocytes # (Manual) Monocytes # (Manual) PT INR POC ABG pH POC ABG pCO2 POC ABG pO2 Sodium 136 L Potassium Chloride Carbon Dioxide 20 L BUN 79 H Creatinine 2.1 H Glucose 141 H POC Glucose 210 H Lactic Acid Calcium 7.5 L Phosphorus Magnesium Total Bilirubin AST Alkaline Phosphatase Total Creatine Kinase C-Reactive Protein Total Protein Albumin TSH Free T4 Urine WBC (Auto) Crossmatch See Detail 12/20/18 12/20/18 12/21/18 11:40 17:51 00:33 WBC RBC Hgb Hct MCV MCH RDW Plt Count Lymph % (Auto) [place] % (Auto) Lymph # Seg Neutrophils % Seg Neuts % (Manual) Lymphocytes % (Manual) Monocytes % (Manual) Nucleated RBC % Seg Neutrophils # Seg Neutrophils # Man Lymphocytes # (Manual) Monocytes # (Manual) PT INR POC ABG pH POC ABG pCO2 POC ABG pO2 Sodium Potassium Chloride Carbon Dioxide BUN Creatinine Glucose POC Glucose 183 H 150 H 119 H Lactic Acid Calcium Phosphorus Magnesium Total Bilirubin AST Alkaline Phosphatase Total Creatine Kinase C-Reactive Protein Total Protein Albumin TSH Free T4 Urine WBC (Auto) Crossmatch 12/21/18 12/21/18 12/21/18 05:05 07:19 07:19 WBC 11.9 H RBC 2.83 L Hgb 6.9 L Hct 20.7 L MCV 73 L MCH 24 L RDW 23.9 H Plt Count 11 L* Lymph % (Auto) [place] % (Auto) Lymph # Seg Neutrophils % Seg Neuts % (Manual) Lymphocytes % (Manual) Monocytes % (Manual) Nucleated RBC % Seg Neutrophils # Seg Neutrophils # Man Lymphocytes # (Manual) Monocytes # (Manual) PT INR POC ABG pH POC ABG pCO2 POC ABG pO2 Sodium 135 L Potassium Chloride Carbon Dioxide 21 L BUN 78 H Creatinine 2.3 H Glucose 143 H POC Glucose 165 H Lactic Acid Calcium 7.3 L Phosphorus Magnesium Total Bilirubin AST Alkaline Phosphatase Total Creatine Kinase C-Reactive Protein Total Protein Albumin TSH Free T4 Urine WBC (Auto) Crossmatch 12/21/18 12/21/18 12/21/18 11:55 17:39 18:00 WBC RBC Hgb 7.9 L Hct 23.8 L MCV MCH RDW Plt Count Lymph % (Auto) [place] % (Auto) Lymph # Seg Neutrophils % Seg Neuts % (Manual) Lymphocytes % (Manual) Monocytes % (Manual) Nucleated RBC % Seg Neutrophils # Seg Neutrophils # Man Lymphocytes # (Manual) Monocytes # (Manual) PT INR POC ABG pH POC ABG pCO2 POC ABG pO2 Sodium Potassium Chloride Carbon Dioxide BUN Creatinine Glucose POC Glucose 125 H 108 H Lactic Acid Calcium Phosphorus Magnesium Total Bilirubin AST Alkaline Phosphatase Total Creatine Kinase C-Reactive Protein Total Protein Albumin TSH Free T4 Urine WBC (Auto) Crossmatch 12/21/18 12/22/18 12/22/18 23:55 05:35 05:35 WBC 11.8 H RBC Hgb 9.4 L Hct 28.3 L MCV 76 L MCH 25 L RDW 24.5 H Plt Count 26 L D Lymph % (Auto) [place] % (Auto) Lymph # Seg Neutrophils % Seg Neuts % (Manual) Lymphocytes % (Manual) Monocytes % (Manual) Nucleated RBC % Seg Neutrophils # Seg Neutrophils # Man Lymphocytes # (Manual) Monocytes # (Manual) PT INR POC ABG pH POC ABG pCO2 POC ABG pO2 Sodium 132 L Potassium Chloride Carbon Dioxide 21 L BUN 79 H Creatinine 2.3 H Glucose 131 H POC Glucose 126 H Lactic Acid Calcium 7.4 L Phosphorus Magnesium Total Bilirubin AST Alkaline Phosphatase Total Creatine Kinase C-Reactive Protein Total Protein Albumin TSH Free T4 Urine WBC (Auto) Crossmatch 12/22/18 12/22/18 12/22/18 06:34 11:39 17:29 WBC RBC Hgb Hct MCV MCH RDW Plt Count Lymph % (Auto) [place] % (Auto) Lymph # Seg Neutrophils % Seg Neuts % (Manual) Lymphocytes % (Manual) Monocytes % (Manual) Nucleated RBC % Seg Neutrophils # Seg Neutrophils # Man Lymphocytes # (Manual) Monocytes # (Manual) PT INR POC ABG pH POC ABG pCO2 POC ABG pO2 Sodium Potassium Chloride Carbon Dioxide BUN Creatinine Glucose POC Glucose 126 H 176 H 180 H Lactic Acid Calcium Phosphorus Magnesium Total Bilirubin AST Alkaline Phosphatase Total Creatine Kinase C-Reactive Protein Total Protein Albumin TSH Free T4 Urine WBC (Auto) Crossmatch 12/22/18 12/23/18 12/23/18 23:19 05:56 08:50 WBC RBC Hgb Hct MCV MCH RDW Plt Count Lymph % (Auto) [place] % (Auto) Lymph # Seg Neutrophils % Seg Neuts % (Manual) Lymphocytes % (Manual) Monocytes % (Manual) Nucleated RBC % Seg Neutrophils # Seg Neutrophils # Man Lymphocytes # (Manual) Monocytes # (Manual) PT INR POC ABG pH POC ABG pCO2 POC ABG pO2 Sodium 134 L Potassium Chloride Carbon Dioxide BUN 80 H Creatinine 2.4 H Glucose 133 H POC Glucose 135 H 174 H Lactic Acid Calcium 7.0 L Phosphorus Magnesium Total Bilirubin AST Alkaline Phosphatase Total Creatine Kinase C-Reactive Protein Total Protein Albumin TSH Free T4 Urine WBC (Auto) Crossmatch 12/23/18 12/23/18 12/24/18 08:50 11:18 00:18 WBC RBC 3.29 L Hgb 8.5 L Hct 24.9 L MCV 76 L MCH 26 L RDW 24.9 H Plt Count 7 L* Lymph % (Auto) [place] % (Auto) Lymph # Seg Neutrophils % Seg Neuts % (Manual) Lymphocytes % (Manual) Monocytes % (Manual) Nucleated RBC % Seg Neutrophils # Seg Neutrophils # Man Lymphocytes # (Manual) Monocytes # (Manual) PT INR POC ABG pH POC ABG pCO2 POC ABG pO2 Sodium Potassium Chloride Carbon Dioxide BUN Creatinine Glucose POC Glucose 164 H 64 L Lactic Acid Calcium Phosphorus Magnesium Total Bilirubin AST Alkaline Phosphatase Total Creatine Kinase C-Reactive Protein Total Protein Albumin TSH Free T4 Urine WBC (Auto) Crossmatch 12/24/18 12/24/18 12/24/18 00:56 06:00 06:00 WBC RBC Hgb 9.7 L Hct 29.1 L MCV 76 L MCH 25 L RDW 24.9 H Plt Count 30 L D Lymph % (Auto) [place] % (Auto) Lymph # Seg Neutrophils % Seg Neuts % (Manual) 86.0 H Lymphocytes % (Manual) 0 L Monocytes % (Manual) Nucleated RBC % Seg Neutrophils # Seg Neutrophils # Man 9.1 H Lymphocytes # (Manual) 0.0 L Monocytes # (Manual) PT INR POC ABG pH POC ABG pCO2 POC ABG pO2 Sodium 132 L Potassium Chloride Carbon Dioxide BUN 79 H Creatinine 2.4 H Glucose 117 H POC Glucose 162 H Lactic Acid Calcium 7.5 L Phosphorus Magnesium Total Bilirubin AST 48 H Alkaline Phosphatase 252 H Total Creatine Kinase C-Reactive Protein Total Protein 5.5 L Albumin 1.6 L TSH Free T4 Urine WBC (Auto) Crossmatch 12/24/18 12/24/18 12/24/18 06:00 12:03 18:45 WBC RBC Hgb Hct MCV MCH RDW Plt Count Lymph % (Auto) [place] % (Auto) Lymph # Seg Neutrophils % Seg Neuts % (Manual) Lymphocytes % (Manual) Monocytes % (Manual) Nucleated RBC % Seg Neutrophils # Seg Neutrophils # Man Lymphocytes # (Manual) Monocytes # (Manual) PT INR POC ABG pH POC ABG pCO2 POC ABG pO2 Sodium Potassium Chloride Carbon Dioxide BUN Creatinine Glucose POC Glucose 153 H 133 H Lactic Acid Calcium Phosphorus 6.60 H Magnesium 2.40 H Total Bilirubin AST Alkaline Phosphatase Total Creatine Kinase C-Reactive Protein Total Protein Albumin TSH Free T4 Urine WBC (Auto) Crossmatch 12/24/18 12/25/18 12/25/18 23:08 06:36 12:05 WBC RBC Hgb Hct MCV MCH RDW Plt Count Lymph % (Auto) [place] % (Auto) Lymph # Seg Neutrophils % Seg Neuts % (Manual) Lymphocytes % (Manual) Monocytes % (Manual) Nucleated RBC % Seg Neutrophils # Seg Neutrophils # Man Lymphocytes # (Manual) Monocytes # (Manual) PT INR POC ABG pH POC ABG pCO2 POC ABG pO2 Sodium Potassium Chloride Carbon Dioxide BUN Creatinine Glucose POC Glucose 125 H 176 H 161 H Lactic Acid Calcium Phosphorus Magnesium Total Bilirubin AST Alkaline Phosphatase Total Creatine Kinase C-Reactive Protein Total Protein Albumin TSH Free T4 Urine WBC (Auto) Crossmatch 12/25/18 12/26/18 12/26/18 18:33 00:07 05:09 WBC RBC Hgb Hct MCV MCH RDW Plt Count Lymph % (Auto) [place] % (Auto) Lymph # Seg Neutrophils % Seg Neuts % (Manual) Lymphocytes % (Manual) Monocytes % (Manual) Nucleated RBC % Seg Neutrophils # Seg Neutrophils # Man Lymphocytes # (Manual) Monocytes # (Manual) PT INR POC ABG pH POC ABG pCO2 POC ABG pO2 Sodium Potassium Chloride Carbon Dioxide BUN Creatinine Glucose POC Glucose 237 H 178 H 171 H Lactic Acid Calcium Phosphorus Magnesium Total Bilirubin AST Alkaline Phosphatase Total Creatine Kinase C-Reactive Protein Total Protein Albumin TSH Free T4 Urine WBC (Auto) Crossmatch 12/26/18 12/26/18 12/26/18 11:27 17:52 23:39 WBC RBC Hgb Hct MCV MCH RDW Plt Count Lymph % (Auto) [place] % (Auto) Lymph # Seg Neutrophils % Seg Neuts % (Manual) Lymphocytes % (Manual) Monocytes % (Manual) Nucleated RBC % Seg Neutrophils # Seg Neutrophils # Man Lymphocytes # (Manual) Monocytes # (Manual) PT INR POC ABG pH POC ABG pCO2 POC ABG pO2 Sodium Potassium Chloride Carbon Dioxide BUN Creatinine Glucose POC Glucose 205 H 166 H 122 H Lactic Acid Calcium Phosphorus Magnesium Total Bilirubin AST Alkaline Phosphatase Total Creatine Kinase C-Reactive Protein Total Protein Albumin TSH Free T4 Urine WBC (Auto) Crossmatch 12/27/18 12/27/18 12/27/18 06:21 14:29 16:20 WBC RBC 3.01 L Hgb 7.6 L Hct 23.0 L MCV 76 L MCH 25 L RDW 24.4 H Plt Count 28 L Lymph % (Auto) 8.9 L [place] % (Auto) 7.4 H Lymph # 0.6 L Seg Neutrophils % 83.4 H Seg Neuts % (Manual) Lymphocytes % (Manual) Monocytes % (Manual) Nucleated RBC % Seg Neutrophils # Seg Neutrophils # Man Lymphocytes # (Manual) Monocytes # (Manual) PT INR POC ABG pH POC ABG pCO2 POC ABG pO2 Sodium Potassium Chloride Carbon Dioxide BUN Creatinine Glucose POC Glucose 174 H 197 H Lactic Acid Calcium Phosphorus Magnesium Total Bilirubin AST Alkaline Phosphatase Total Creatine Kinase C-Reactive Protein Total Protein Albumin TSH Free T4 Urine WBC (Auto) Crossmatch 12/27/18 12/27/18 12/27/18 16:20 17:42 20:16 WBC RBC Hgb Hct MCV MCH RDW Plt Count Lymph % (Auto) [place] % (Auto) Lymph # Seg Neutrophils % Seg Neuts % (Manual) Lymphocytes % (Manual) Monocytes % (Manual) Nucleated RBC % Seg Neutrophils # Seg Neutrophils # Man Lymphocytes # (Manual) Monocytes # (Manual) PT INR POC ABG pH POC ABG pCO2 POC ABG pO2 Sodium Potassium Chloride Carbon Dioxide 21 L BUN 106 H Creatinine 3.0 H Glucose 184 H POC Glucose 211 H Lactic Acid Calcium 6.8 L Phosphorus Magnesium Total Bilirubin AST Alkaline Phosphatase Total Creatine Kinase C-Reactive Protein Total Protein Albumin TSH Free T4 Urine WBC (Auto) Crossmatch See Detail 12/28/18 12/28/18 12/28/18 00:39 01:03 06:42 WBC RBC Hgb 8.2 L Hct 24.6 L MCV MCH RDW Plt Count Lymph % (Auto) [place] % (Auto) Lymph # Seg Neutrophils % Seg Neuts % (Manual) Lymphocytes % (Manual) Monocytes % (Manual) Nucleated RBC % Seg Neutrophils # Seg Neutrophils # Man Lymphocytes # (Manual) Monocytes # (Manual) PT INR POC ABG pH POC ABG pCO2 POC ABG pO2 Sodium Potassium Chloride Carbon Dioxide BUN Creatinine Glucose POC Glucose 135 H 160 H Lactic Acid Calcium Phosphorus Magnesium Total Bilirubin AST Alkaline Phosphatase Total Creatine Kinase C-Reactive Protein Total Protein Albumin TSH Free T4 Urine WBC (Auto) Crossmatch 12/28/18 12/28/18 12/28/18 07:30 07:30 11:33 WBC RBC 3.43 L Hgb 9.3 L Hct 27.5 L MCV MCH 27 L RDW 24.0 H Plt Count 34 L Lymph % (Auto) [place] % (Auto) Lymph # Seg Neutrophils % 86.0 H Seg Neuts % (Manual) 88.0 H Lymphocytes % (Manual) 6.0 L Monocytes % (Manual) Nucleated RBC % Seg Neutrophils # Seg Neutrophils # Man Lymphocytes # (Manual) 0.4 L Monocytes # (Manual) PT INR POC ABG pH POC ABG pCO2 POC ABG pO2 Sodium Potassium Chloride Carbon Dioxide 20 L BUN 101 H Creatinine 2.8 H Glucose 155 H POC Glucose 171 H Lactic Acid Calcium 6.5 L Phosphorus 7.40 H Magnesium Total Bilirubin AST Alkaline Phosphatase Total Creatine Kinase C-Reactive Protein Total Protein Albumin TSH Free T4 Urine WBC (Auto) Crossmatch 12/28/18 12/28/18 12/29/18 17:16 23:53 05:45 WBC RBC Hgb Hct 29.7 L MCV MCH 27 L RDW 23.8 H Plt Count 32 L Lymph % (Auto) [place] % (Auto) Lymph # Seg Neutrophils % Seg Neuts % (Manual) 94.0 H Lymphocytes % (Manual) 4.0 L Monocytes % (Manual) Nucleated RBC % 1.0 H Seg Neutrophils # Seg Neutrophils # Man Lymphocytes # (Manual) 0.2 L Monocytes # (Manual) PT INR POC ABG pH POC ABG pCO2 POC ABG pO2 Sodium Potassium Chloride Carbon Dioxide BUN Creatinine Glucose POC Glucose 151 H 108 H Lactic Acid Calcium Phosphorus Magnesium Total Bilirubin AST Alkaline Phosphatase Total Creatine Kinase C-Reactive Protein Total Protein Albumin TSH Free T4 Urine WBC (Auto) Crossmatch 12/29/18 12/29/18 12/29/18 05:45 12:40 18:04 WBC RBC Hgb Hct MCV MCH RDW Plt Count Lymph % (Auto) [place] % (Auto) Lymph # Seg Neutrophils % Seg Neuts % (Manual) Lymphocytes % (Manual) Monocytes % (Manual) Nucleated RBC % Seg Neutrophils # Seg Neutrophils # Man Lymphocytes # (Manual) Monocytes # (Manual) PT INR POC ABG pH POC ABG pCO2 POC ABG pO2 Sodium Potassium Chloride Carbon Dioxide 20 L BUN 103 H Creatinine 2.7 H Glucose POC Glucose 108 H 147 H Lactic Acid Calcium 6.6 L Phosphorus 7.20 H Magnesium Total Bilirubin AST 49 H Alkaline Phosphatase 309 H Total Creatine Kinase C-Reactive Protein Total Protein 4.6 L Albumin 1.6 L TSH Free T4 Urine WBC (Auto) Crossmatch 12/29/18 12/30/18 12/30/18 23:47 05:44 11:29 WBC RBC Hgb Hct MCV MCH RDW Plt Count Lymph % (Auto) [place] % (Auto) Lymph # Seg Neutrophils % Seg Neuts % (Manual) Lymphocytes % (Manual) Monocytes % (Manual) Nucleated RBC % Seg Neutrophils # Seg Neutrophils # Man Lymphocytes # (Manual) Monocytes # (Manual) PT INR POC ABG pH POC ABG pCO2 POC ABG pO2 Sodium Potassium Chloride Carbon Dioxide BUN Creatinine Glucose POC Glucose 119 H 129 H 226 H Lactic Acid Calcium Phosphorus Magnesium Total Bilirubin AST Alkaline Phosphatase Total Creatine Kinase C-Reactive Protein Total Protein Albumin TSH Free T4 Urine WBC (Auto) Crossmatch 12/30/18 12/30/18 12/30/18 13:58 13:58 18:38 WBC RBC 3.12 L Hgb 8.3 L Hct 25.1 L MCV MCH 27 L RDW 24.5 H Plt Count 30 L Lymph % (Auto) [place] % (Auto) Lymph # Seg Neutrophils % Seg Neuts % (Manual) 79.0 H Lymphocytes % (Manual) 1.0 L Monocytes % (Manual) Nucleated RBC % Seg Neutrophils # Seg Neutrophils # Man Lymphocytes # (Manual) 0.0 L Monocytes # (Manual) PT INR POC ABG pH POC ABG pCO2 POC ABG pO2 Sodium Potassium Chloride Carbon Dioxide 19 L BUN 101 H Creatinine 2.4 H Glucose 196 H POC Glucose 154 H Lactic Acid Calcium 6.5 L Phosphorus Magnesium Total Bilirubin AST 45 H Alkaline Phosphatase 321 H Total Creatine Kinase C-Reactive Protein Total Protein 4.2 L Albumin 1.4 L TSH Free T4 Urine WBC (Auto) Crossmatch 12/30/18 12/31/18 12/31/18 23:46 03:55 03:55 WBC 4.4 L RBC 3.08 L Hgb 8.3 L Hct 24.9 L MCV MCH 27 L RDW 25.0 H Plt Count 14 L* Lymph % (Auto) [place] % (Auto) Lymph # Seg Neutrophils % Seg Neuts % (Manual) 71.0 H Lymphocytes % (Manual) 1.0 L Monocytes % (Manual) Nucleated RBC % Seg Neutrophils # Seg Neutrophils # Man Lymphocytes # (Manual) 0.0 L Monocytes # (Manual) PT INR POC ABG pH POC ABG pCO2 POC ABG pO2 Sodium Potassium 3.3 L Chloride 109.3 H Carbon Dioxide 20 L BUN 101 H Creatinine 2.5 H Glucose 126 H POC Glucose 141 H Lactic Acid Calcium 6.7 L Phosphorus 7.10 H Magnesium Total Bilirubin AST 42 H Alkaline Phosphatase 298 H Total Creatine Kinase C-Reactive Protein Total Protein 4.1 L Albumin 1.1 L TSH Free T4 Urine WBC (Auto) Crossmatch 12/31/18 12/31/18 12/31/18 05:13 11:49 18:51 WBC RBC Hgb Hct MCV MCH RDW Plt Count Lymph % (Auto) [place] % (Auto) Lymph # Seg Neutrophils % Seg Neuts % (Manual) Lymphocytes % (Manual) Monocytes % (Manual) Nucleated RBC % Seg Neutrophils # Seg Neutrophils # Man Lymphocytes # (Manual) Monocytes # (Manual) PT INR POC ABG pH POC ABG pCO2 POC ABG pO2 Sodium Potassium Chloride Carbon Dioxide BUN Creatinine Glucose POC Glucose 117 H 113 H 116 H Lactic Acid Calcium Phosphorus Magnesium Total Bilirubin AST Alkaline Phosphatase Total Creatine Kinase C-Reactive Protein Total Protein Albumin TSH Free T4 Urine WBC (Auto) Crossmatch 12/31/18 01/01/19 01/01/19 23:48 04:30 04:30 WBC RBC 2.86 L Hgb 7.7 L Hct 22.9 L MCV MCH 27 L RDW 25.0 H Plt Count 42 L D Lymph % (Auto) [place] % (Auto) Lymph # Seg Neutrophils % Seg Neuts % (Manual) Lymphocytes % (Manual) Monocytes % (Manual) Nucleated RBC % Seg Neutrophils # Seg Neutrophils # Man Lymphocytes # (Manual) Monocytes # (Manual) PT INR POC ABG pH POC ABG pCO2 POC ABG pO2 Sodium Potassium Chloride 110.0 H Carbon Dioxide 21 L BUN 96 H Creatinine 2.3 H Glucose 109 H POC Glucose 113 H Lactic Acid Calcium 6.5 L Phosphorus Magnesium Total Bilirubin AST Alkaline Phosphatase Total Creatine Kinase C-Reactive Protein Total Protein Albumin TSH Free T4 Urine WBC (Auto) Crossmatch 01/01/19 01/01/19 01/01/19 05:43 09:07 11:30 WBC RBC Hgb Hct MCV MCH RDW Plt Count Lymph % (Auto) [place] % (Auto) Lymph # Seg Neutrophils % Seg Neuts % (Manual) Lymphocytes % (Manual) Monocytes % (Manual) Nucleated RBC % Seg Neutrophils # Seg Neutrophils # Man Lymphocytes # (Manual) Monocytes # (Manual) PT INR POC ABG pH POC ABG pCO2 POC ABG pO2 Sodium Potassium Chloride Carbon Dioxide BUN Creatinine Glucose POC Glucose 118 H 144 H Lactic Acid Calcium Phosphorus Magnesium Total Bilirubin AST Alkaline Phosphatase Total Creatine Kinase C-Reactive Protein Total Protein Albumin TSH Free T4 Urine WBC (Auto) Crossmatch See Detail 01/02/19 01/02/19 01/02/19 05:20 05:20 16:45 WBC RBC 2.48 L 3.19 L Hgb 6.6 L 8.8 L Hct 20.1 L 26.8 L D MCV MCH 27 L RDW 24.7 H 23.3 H Plt Count 103 L D 99 L Lymph % (Auto) [place] % (Auto) Lymph # Seg Neutrophils % Seg Neuts % (Manual) 75.0 H Lymphocytes % (Manual) 12.0 L 2.0 L Monocytes % (Manual) 8.0 H Nucleated RBC % Seg Neutrophils # Seg Neutrophils # Man Lymphocytes # (Manual) 0.7 L 0.1 L Monocytes # (Manual) PT INR POC ABG pH POC ABG pCO2 POC ABG pO2 Sodium 148 H Potassium 3.4 L Chloride 111.8 H Carbon Dioxide 21 L BUN 92 H Creatinine 2.1 H Glucose 103 H POC Glucose Lactic Acid Calcium 6.5 L Phosphorus 7.00 H Magnesium Total Bilirubin AST Alkaline Phosphatase Total Creatine Kinase C-Reactive Protein Total Protein Albumin TSH Free T4 Urine WBC (Auto) Crossmatch 01/02/19 01/03/19 01/03/19 18:45 05:30 05:30 WBC RBC Hgb 10.0 L Hct 30.2 L MCV MCH 27 L RDW 22.3 H Plt Count 77 L Lymph % (Auto) [place] % (Auto) Lymph # Seg Neutrophils % Seg Neuts % (Manual) 93.0 H Lymphocytes % (Manual) 4.0 L Monocytes % (Manual) Nucleated RBC % Seg Neutrophils # Seg Neutrophils # Man Lymphocytes # (Manual) 0.3 L Monocytes # (Manual) PT INR POC ABG pH POC ABG pCO2 POC ABG pO2 Sodium 150 H Potassium 3.4 L Chloride 114.5 H Carbon Dioxide BUN 89 H Creatinine 2.1 H Glucose POC Glucose 106 H Lactic Acid Calcium 6.8 L Phosphorus Magnesium Total Bilirubin AST Alkaline Phosphatase Total Creatine Kinase C-Reactive Protein Total Protein Albumin TSH Free T4 Urine WBC (Auto) Crossmatch Allied health notes reviewed: nursing
[2019-01-03] MEDS: SODIUM CHLORIDE FLUSH SYRINGE 10 ML IV SCH ×2 (09:57→22:31)
[2019-01-03] MEDS ORDERED: PROCRIT SUB-Q SCH (10:00)
[2019-01-03] MEDS ORDERED: DDAVP IV ONE (10:00)
[2019-01-03] MEDS ORDERED: NACL 0.9% IV ONE (10:00)
[2019-01-03] MEDS: KCL 10MEQ/100ML 10 MEQ/100 ML BAG IV SCH ×3 (10:11→12:40)
[2019-01-03] MEDS: LOPRESSOR PO SCH ×2 (11:10→19:28)
[2019-01-03] MEDS: PREVACID SOLUTAB FEEDTUBE SCH ×2 (11:46→22:30)
[2019-01-03] MEDS ORDERED: VERSED ONE (14:42)
[2019-01-03] MEDS ORDERED: DIPRIVAN 10 MG/ML IV ONE (14:42)
[2019-01-03] MEDS ORDERED: XYLOCAINE 2% INFILTRATI ONE (14:42)
--- NOTE | 2019-01-03 15:20 | Progress Note ---
Assessment and Plan - Patient Problems (1) Acute kidney failure with tubular necrosis Current Visit: Yes Status: Acute Plan to address problem: renal function is unchanged, stable eGFR > 20mls/min, pt remains non-oliguric. Overall prognosis is poor, poor candidate for renal replacement therapy. Avoid nephrotoxins. pt awaiting PEG/Trach. (2) Acute post-hemorrhagic anemia Current Visit: Yes Status: Acute Plan to address problem: H/H improved 2PRBC. DDAVP was given in preparation for PEG/Trach. transfuse prn to maintain HgB>7.0. Started EPO. (3) Respiratory failure Current Visit: Yes Status: Acute Plan to address problem: Continues on ventilatory support, and further management per ICU/Pulmonary team. (4) Pericardial effusion without cardiac tamponade Current Visit: Yes Status: Acute Plan to address problem: s/p ECHO with findings not consistent with cardiac tamponade. Will continue to monitor, further recs per cardiology. (5) Encephalopathy Current Visit: Yes Status: Acute Plan to address problem: s/p EEG . Results reviewed. Further management per primary team. Patient remains comatose at this time Subjective Date of service: 01/03/19 Principal diagnosis: Rectal Bleed Interval history: Pt remains intubated, unresponsive. scheduled for PEG/Trach today. low plts noted, DDAVP given Objective - Vital Signs Vital signs: Vital Signs - 12hr 01/03/19 01/03/19 01/03/19 04:00 05:00 06:00 Temperature 97.4 F L Pulse Rate 67 60 68 Pulse Rate [ 61 Apical] Pulse Rate [ 61 From Monitor] Pulse Rate [ Throughout] Respiratory 18 18 18 Rate Respiratory Rate [ Throughout] Blood Pressure 121/49 125/50 113/49 O2 Sat by Pulse 100 100 100 Oximetry 01/03/19 01/03/19 01/03/19 07:00 08:00 09:00 Temperature Pulse Rate 63 70 62 Pulse Rate [ Apical] Pulse Rate [ 64 From Monitor] Pulse Rate [ Throughout] Respiratory 16 18 16 Rate Respiratory Rate [ Throughout] Blood Pressure 97/52 118/54 125/56 O2 Sat by Pulse 100 100 100 Oximetry 01/03/19 01/03/19 01/03/19 10:00 10:05 10:08 Temperature Pulse Rate 67 62 Pulse Rate [ Apical] Pulse Rate [ From Monitor] Pulse Rate [ 65 Throughout] Respiratory 18 Rate Respiratory 18 Rate [ Throughout] Blood Pressure 112/51 112/51 O2 Sat by Pulse 100 100 Oximetry 01/03/19 01/03/19 01/03/19 11:00 12:00 13:00 Temperature 91.0 F L Pulse Rate 67 70 Pulse Rate [ Apical] Pulse Rate [ 62 From Monitor] Pulse Rate [ Throughout] Respiratory 12 18 17 Rate Respiratory Rate [ Throughout] Blood Pressure 107/41 113/44 115/61 O2 Sat by Pulse 99 100 100 Oximetry 01/03/19 01/03/19 13:56 14:00 Temperature Pulse Rate 61 62 Pulse Rate [ Apical] Pulse Rate [ From Monitor] Pulse Rate [ Throughout] Respiratory 17 Rate Respiratory Rate [ Throughout] Blood Pressure 104/54 140/63 O2 Sat by Pulse 100 100 Oximetry - General Appearance General appearance: chronically ill, intubated, comatose EENT: ATNC, mucous membranes moist Neck: no JVD Respiratory: Present: Decreased Breath Sounds Cardiology: regular, S1S2 Gastrointestinal: normoactive bowel sounds Integumentary: no rash, other (+ edema b/l LE ) Neurologic: other (comatose ) - Lab 01/03/19 05:30 01/03/19 05:30 Most recent lab results Calcium 6.8 mg/dL (8.4-10.2) L 01/03/19 05:30 Phosphorus 7.00 mg/dL (2.5-4.5) H 01/02/19 05:20 Magnesium 2.30 mg/dL (1.7-2.3) 01/02/19 05:20 Medications & Allergies - Medications Allergies/Adverse Reactions: Allergies Penicillins Allergy (Verified 12/08/18 13:13) Hives Home Medications: Home Medications Medication Instructions Recorded Confirmed Last Taken Type ALBUTEROL Inhaler (OR & NICU) 2 puff IH QID PRN #1 inhalation 12/21/16 12/08/18 Unknown Rx [Proair] Albuterol Sulfate [Albuterol 0.63% 0.63 mg IH TID PRN #90 ml 12/21/16 12/08/18 Unknown Rx NEBS] Amlodipine Besylate [Norvasc] 10 mg PO DAILY #90 tablet 12/21/16 12/08/18 Unknown Rx AtorvaSTATin [Lipitor] 20 mg PO QHS #90 tablet 12/21/16 12/08/18 Unknown Rx Hydralazine HCl [Apresoline TAB] 50 mg PO TID #90 tablet 12/21/16 12/08/18 Unknown Rx Metoprolol [Lopressor TAB] 25 mg PO BID #90 tablet 12/21/16 12/08/18 Unknown Rx Promethazine /Codeine 5 ml PO Q6H PRN #100 ml 12/21/16 12/08/18 Unknown Rx [Phenergan/Codeine 6.25-10 mg/5 ml] Active Medications: Generic Name Dose Route Start Last Admin Trade Name Freq PRN Reason Stop Dose Admin Acetaminophen 650 mg 12/09/18 01:00 12/28/18 00:24 Tylenol CO 650 mg Q4H PRN Administration Pain MILD(1-3)/Fever >100.5/TRUNER Albuterol 2.5 mg 12/09/18 00:31 Proventil IH Q4HRT PRN Shortness Of Breath Albuterol/Ipratropium 1 ampul 12/09/18 02:00 01/03/19 10:07 Duoneb *Not For Prn Use* IH 1 ampul Q6HRT KOLE Administration Lipase/Protease/Amylase 1 each 12/09/18 04:[address] 10,500 Unit FEEDTUBE PRN PRN For Clogged Feeding Tube Atorvastatin Calcium 20 mg 12/28/18 22:00 01/02/19 22:20 Lipitor PO 20 mg QHS KOLE Administration Dextrose 50 ml 12/24/18 00:42 12/24/18 00:30 D50w (25gm) Syringe IV 50 ml PRN PRN Administration Hypoglycemia Epoetin Walter 10,000 unit 01/03/19 10:00 01/03/19 11:51 Procrit SUB-Q 10,000 unit Fr KOLE Administration Hydrophilic Ointment 1 applic 12/14/18 13:00 Vaseline Lip Therapy TP DIRECT PRN Dry tongue Norepinephrine 4 mg in 250 mls @ 7.5 mls/hr 12/18/18 18:00 12/19/18 18:00 Levophed Drip 4 Mg/Ns 250 Ml IV 0 mcg/min TITR KOLE 0 mls/hr Titration Protocol 2 MCG/MIN Insulin Human Lispro 0 unit 12/11/18 12:00 01/03/19 11:53 Humalog SUB-Q Not Given Q6HR KOLE Protocol Lansoprazole 30 mg 12/12/18 10:00 01/03/19 11:46 Prevacid Solutab FEEDTUBE 30 mg BID KOLE Administration Metoprolol Tartrate 25 mg 12/27/18 23:45 01/03/19 11:10 Lopressor PO Not Given BID@0800,1700 [facility] Multi-Ingred Cream/Lotion/Oil/Oint 1 applic 12/08/18 13:31 Artificial Tears Ophth Oint OU Q4HR PRN Dry Eye(s) Ondansetron HCl 4 mg 12/09/18 00:31 Zofran IV Q8H PRN Nausea And Vomiting Promethazine HCl/Codeine 5 ml 12/27/18 23:49 Phenergan/Codeine 6.25-10 Mg/5ml PO Q6H PRN cough Simple Syrup 15 ml 12/09/18 04:05 Simple Syrup FEEDTUBE PRN PRN Hypoglycemia Simple Syrup 30 ml 12/09/18 04:05 Simple Syrup FEEDTUBE PRN PRN Hypoglycemia Sodium Bicarbonate 325 mg 12/09/18 04:05 Sodium Bicarbonate FEEDTUBE PRN PRN For Clogged Feeding Tube Sodium Chloride 10 ml 12/09/18 10:00 01/03/19 09:57 Sodium Chloride Flush Syringe 10 Ml IV 10 ml BID KOLE Administration Sodium Chloride 10 ml 12/09/18 00:31 12/17/18 10:47 Sodium Chloride Flush Syringe 10 Ml IV 10 ml PRN PRN Administration LINE FLUSH
--- NOTE | 2019-01-03 16:15 | Anesthesia Day of Surgery ---
Anesthesia Day of Surgery - Day of Surgery Patient Examined: Yes Patient H&P Reviewed: Yes Patient is NPO: Yes Beta Blockers: No Cardiac Clearance: No Pulmonary Clearance: No
--- NOTE | 2019-01-03 16:17 | Anesthesia Consultation ---
Anesthesia Consult and Med Hx Date of service: 01/03/19 - Airway Anesthetic Teeth Evaluation: Good ROM Head & Neck: Adequate Mental/Hyoid Distance: Adequate Mallampati Class: Class III Intubation Access Assessment: Good - Pulmonary Exam CTA: Yes - Cardiac Exam Cardiac Exam: No Murmur - Pre-Operative Health Status ASA Pre-Surgery Classification: ASA5 Proposed Anesthetic Plan: General - Pulmonary Hx Pneumonia: Yes - Cardiovascular System Hx Hypertension: Yes Hx Pacemaker: Yes - Central Nervous System CVA: Yes (x7) - Additional Comments Anesthesia Medical History Comments: PT has History of DM, CVA and is unresponsive at this time as per neurology
--- NOTE | 2019-01-03 16:18 | Procedure Note ---
Date of procedure: 01/03/19 Pre-op diagnosis: VDRF Post-op diagnosis: same Procedure: percutaneous tracheostomy Findings: Time out performed and anesthesia then administered. A shoulder roll was placed and the neck gently hyperextended. The neck was prepped and draped in the usual sterile fashion. Dr. Palacios performed fiberoptic bronchoscopy throughout the procedure. Local anesthetic was infiltrated into the skin approximately 2 fingerbreadths superior to the sternal notch. There was a 4cm hematoma noted to the right of the midline overlying the clavicular head that remained stable throughout the procedure and was not disturbed. Dissection was carried down through the subcutaneous tissue using a hemostat. A finder needle was inserted through the incision into the trachea under direct visualization. Wire was passed through the needle into the trachea towards the prashant. The needle was removed. The trachea was serially dilated and an 8F tracheostomy was inserted under direct visualization. The wire and stylet were removed and balloon inflated. The patient was connected to the ventilator and inspiratory and expiratory tidal volumes were satisfactory. Bronchoscopy performed through the tracheostomy revealed no bleeding and that the tracheostomy was 3 cm above the prashant. The tracheostomy was secured using the neck strap. A drain sponge was placed between the skin and tracheostomy. The patient tolerated the procedure well. All sharps were disposed of appropriately. I called the KINGSLEY Kessler and no answer, VM left to inform her that both trach/PEG procedures went well. Implants: 8F tracheostomy Anesthesia: KIMBERLY local Surgeon: SHAWNA HUGHES Estimated blood loss: minimal Pathology: none Condition: stable Disposition: no change
--- NOTE | 2019-01-03 16:43 | Procedure Note ---
Date of procedure: 01/03/19 Pre-op diagnosis: respiratory failure Post-op diagnosis: same Procedure: Bronchoscopic Report Written Consent was on the chart. Pre-op Dx Respiratory Failure Post-op Dx same Procedure Bronchoscopy for tracheostomy placement (CPT 56077) Surgeon Isabel Laird MD Surgeon performing tracheostomy Renata Hughes, Anesth MAC EBL min Specimen none Findings normal anatomy. No secretions. Complications none Disposition Stable in ICU Indications Procedure, risks, benefits, alternatives have been discussed. Consent was obtained. Procedure After time out was called, bronchoscopy was begun. Airway was evaluated. Secretions were aspirated. ETT was pulled back to about 18cm at the teeth. Later, had to be retracted to 15cm. Dr. Hughes performed the tracheostomy under bronchoscopic guidance. Introducer needle was seen safely entering the t rachea. Trach was placed after serial dilation. Bronchoscope was then inserted through the trach to confirm position. There was several centimeters of space above the prashant. There was no significant bleeding. The pulsation of the innominate artery was not seen. Patient had good inspiratory and expiratory tidal volumes. Pt was stable in ICU. PEG placement (CPT [address]) Timeout was called EGD scope was advanced into the stomach. Stomach was insufflated. Site was identified by good transillumination, at least 3 fingerbreadths away from costal margin and not too close to pylorus. After sterile prep and drape, Dr. Hughes anesthetized the planned insertion site and inserted the introducer needle. Wire was inserted and pulled back into the mouth. PEG tube was attached and then pulled into position by Dr. Hughes. EGD scope was re-inserted and button was identified. There was no bleeding and button was seen to be in good position. I then proceeded to evaluate the rest of the stomach. The esophagus was evaluated as the scope was being pulled out. Pt tolerated the procedure well. The PEG collar was at 2cm at the skin level. Findings: large amount of oral secretions. Clear airway. lots of fluid in the stomach. No other pathology seen. Implants: 20Fr PEG Anesthesia: MAC Surgeon: JESSEE LAIRD Environmental Programs Specialist: SHAWNA HUGHES Estimated blood loss: minimal Pathology: none Condition: stable Disposition: ICU
--- NOTE | 2019-01-03 16:44 | Progress Note ---
Subjective Date of service: 01/03/19 Principal diagnosis: Rectal Bleed Interval history: no basic evidence of recovery still eyes closed not responsive [facility] not [facility] prognosis very poor at this point Objective - Vital Sign Vital Signs - 12hr 01/03/19 01/03/19 01/03/19 05:00 06:00 07:00 Temperature Pulse Rate 60 68 63 Pulse Rate [ From Monitor] Pulse Rate [ Throughout] Respiratory 18 18 16 Rate Respiratory Rate [ Throughout] Blood Pressure 125/50 113/49 97/52 O2 Sat by Pulse 100 100 100 Oximetry 01/03/19 01/03/19 01/03/19 08:00 09:00 10:00 Temperature Pulse Rate 70 62 67 Pulse Rate [ 64 From Monitor] Pulse Rate [ Throughout] Respiratory 18 16 18 Rate Respiratory Rate [ Throughout] Blood Pressure 118/54 125/56 112/51 O2 Sat by Pulse 100 100 100 Oximetry 01/03/19 01/03/19 01/03/19 10:05 10:08 11:00 Temperature Pulse Rate 62 67 Pulse Rate [ From Monitor] Pulse Rate [ 65 Throughout] Respiratory 12 Rate Respiratory 18 Rate [ Throughout] Blood Pressure 112/51 107/41 O2 Sat by Pulse 100 99 Oximetry 01/03/19 01/03/19 01/03/19 12:00 13:00 13:56 Temperature 91.0 F L Pulse Rate 70 61 Pulse Rate [ 62 From Monitor] Pulse Rate [ Throughout] Respiratory 18 17 Rate Respiratory Rate [ Throughout] Blood Pressure 113/44 115/61 104/54 O2 Sat by Pulse 100 100 100 Oximetry 01/03/19 01/03/19 14:00 15:49 Temperature Pulse Rate 62 80 Pulse Rate [ From Monitor] Pulse Rate [ Throughout] Respiratory 17 20 Rate Respiratory Rate [ Throughout] Blood Pressure 140/63 O2 Sat by Pulse 100 Oximetry - Laboratory Findings CBC and BMP: 01/03/19 05:30 01/03/19 05:30 Abnormal Lab Findings: Abnormal Labs 12/08/18 12/08/18 12/08/18 12:58 13:40 13:40 WBC RBC Hgb Hct MCV MCH RDW Plt Count Lymph % (Auto) [place] % (Auto) Lymph # Seg Neutrophils % Seg Neuts % (Manual) Lymphocytes % (Manual) Monocytes % (Manual) Nucleated RBC % Seg Neutrophils # Seg Neutrophils # Man Lymphocytes # (Manual) Monocytes # (Manual) PT INR POC ABG pH POC ABG pCO2 POC ABG pO2 Sodium Potassium Chloride Carbon Dioxide BUN Creatinine Glucose POC Glucose 143 H Lactic Acid Calcium Phosphorus Magnesium Total Bilirubin AST Alkaline Phosphatase Total Creatine Kinase C-Reactive Protein Total Protein Albumin TSH Free T4 Urine WBC (Auto) 157.0 H Crossmatch See Detail 12/08/18 12/08/18 12/08/18 13:40 13:40 13:40 WBC RBC 3.06 L Hgb 6.8 L Hct 21.1 L MCV 69 L MCH 22 L RDW 16.2 H Plt Count 56 L Lymph % (Auto) [place] % (Auto) Lymph # Seg Neutrophils % Seg Neuts % (Manual) Lymphocytes % (Manual) 2.0 L Monocytes % (Manual) Nucleated RBC % Seg Neutrophils # Seg Neutrophils # Man Lymphocytes # (Manual) 0.2 L Monocytes # (Manual) PT INR POC ABG pH POC ABG pCO2 POC ABG pO2 Sodium Potassium 3.2 L Chloride Carbon Dioxide 18 L BUN 64 H Creatinine 1.5 H Glucose 145 H POC Glucose Lactic Acid 4.00 H* Calcium 7.7 L Phosphorus Magnesium Total Bilirubin AST Alkaline Phosphatase Total Creatine Kinase 258 H C-Reactive Protein Total Protein 4.6 L Albumin 1.8 L TSH Free T4 Urine WBC (Auto) Crossmatch 12/08/18 12/08/18 12/08/18 14:29 15:21 16:06 WBC RBC Hgb Hct MCV MCH RDW Plt Count Lymph % (Auto) [place] % (Auto) Lymph # Seg Neutrophils % Seg Neuts % (Manual) Lymphocytes % (Manual) Monocytes % (Manual) Nucleated RBC % Seg Neutrophils # Seg Neutrophils # Man Lymphocytes # (Manual) Monocytes # (Manual) PT 20.5 H INR 1.64 H POC ABG pH POC ABG pCO2 34.2 L POC ABG pO2 465 H Sodium Potassium Chloride Carbon Dioxide BUN Creatinine Glucose POC Glucose Lactic Acid 3.00 H* Calcium Phosphorus Magnesium Total Bilirubin AST Alkaline Phosphatase Total Creatine Kinase C-Reactive Protein Total Protein Albumin TSH Free T4 Urine WBC (Auto) Crossmatch 12/09/18 12/09/18 12/09/18 02:31 05:36 05:36 WBC 14.5 H RBC Hgb Hct MCV 75 L MCH 25 L RDW 20.4 H Plt Count 68 L Lymph % (Auto) [place] % (Auto) Lymph # Seg Neutrophils % Seg Neuts % (Manual) 81.0 H Lymphocytes % (Manual) 1.0 L Monocytes % (Manual) Nucleated RBC % Seg Neutrophils # Seg Neutrophils # Man 11.7 H Lymphocytes # (Manual) 0.1 L Monocytes # (Manual) PT INR POC ABG pH POC ABG pCO2 POC ABG pO2 Sodium Potassium Chloride 107.6 H Carbon Dioxide 18 L BUN 75 H Creatinine 1.9 H Glucose 136 H POC Glucose 152 H Lactic Acid Calcium 7.9 L Phosphorus Magnesium Total Bilirubin 1.60 H AST 44 H Alkaline Phosphatase Total Creatine Kinase C-Reactive Protein Total Protein 5.2 L Albumin 2.4 L TSH Free T4 Urine WBC (Auto) Crossmatch 12/09/18 12/09/18 12/09/18 05:43 10:47 13:46 WBC RBC Hgb Hct MCV MCH RDW Plt Count Lymph % (Auto) [place] % (Auto) Lymph # Seg Neutrophils % Seg Neuts % (Manual) Lymphocytes % (Manual) Monocytes % (Manual) Nucleated RBC % Seg Neutrophils # Seg Neutrophils # Man Lymphocytes # (Manual) Monocytes # (Manual) PT INR POC ABG pH 7.308 L POC ABG pCO2 POC ABG pO2 183 H Sodium Potassium Chloride Carbon Dioxide BUN Creatinine Glucose POC Glucose 150 H 162 H Lactic Acid Calcium Phosphorus Magnesium Total Bilirubin AST Alkaline Phosphatase Total Creatine Kinase C-Reactive Protein Total Protein Albumin TSH Free T4 Urine WBC (Auto) Crossmatch 12/09/18 12/09/18 12/09/18 15:54 15:54 16:40 WBC RBC Hgb Hct MCV MCH RDW Plt Count Lymph % (Auto) [place] % (Auto) Lymph # Seg Neutrophils % Seg Neuts % (Manual) Lymphocytes % (Manual) Monocytes % (Manual) Nucleated RBC % Seg Neutrophils # Seg Neutrophils # Man Lymphocytes # (Manual) Monocytes # (Manual) PT INR POC ABG pH POC ABG pCO2 POC ABG pO2 Sodium Potassium Chloride Carbon Dioxide BUN Creatinine Glucose POC Glucose 197 H Lactic Acid Calcium Phosphorus Magnesium Total Bilirubin AST Alkaline Phosphatase Total Creatine Kinase C-Reactive Protein Total Protein Albumin TSH 0.268 L Free T4 0.58 L Urine WBC (Auto) Crossmatch 12/09/18 12/09/18 12/09/18 18:18 18:18 21:51 WBC RBC Hgb Hct MCV MCH RDW Plt Count Lymph % (Auto) [place] % (Auto) Lymph # Seg Neutrophils % Seg Neuts % (Manual) Lymphocytes % (Manual) Monocytes % (Manual) Nucleated RBC % Seg Neutrophils # Seg Neutrophils # Man Lymphocytes # (Manual) Monocytes # (Manual) PT INR POC ABG pH POC ABG pCO2 POC ABG pO2 Sodium Potassium Chloride 108.2 H Carbon Dioxide 16 L BUN 89 H Creatinine 2.3 H Glucose 180 H POC Glucose 198 H Lactic Acid Calcium 7.9 L Phosphorus Magnesium Total Bilirubin AST Alkaline Phosphatase Total Creatine Kinase C-Reactive Protein 19.60 H Total Protein Albumin TSH Free T4 Urine WBC (Auto) Crossmatch 12/10/18 12/10/18 12/10/18 01:59 04:14 04:38 WBC 11.5 H RBC Hgb Hct MCV 75 L MCH 25 L RDW 21.1 H Plt Count 81 L Lymph % (Auto) 5.6 L [place] % (Auto) Lymph # 0.6 L Seg Neutrophils % 89.8 H Seg Neuts % (Manual) Lymphocytes % (Manual) Monocytes % (Manual) Nucleated RBC % Seg Neutrophils # 10.3 H Seg Neutrophils # Man Lymphocytes # (Manual) Monocytes # (Manual) PT INR POC ABG pH 7.273 L POC ABG pCO2 32.1 L POC ABG pO2 161 H Sodium Potassium Chloride Carbon Dioxide BUN Creatinine Glucose POC Glucose 219 H Lactic Acid Calcium Phosphorus Magnesium Total Bilirubin AST Alkaline Phosphatase Total Creatine Kinase C-Reactive Protein Total Protein Albumin TSH Free T4 Urine WBC (Auto) Crossmatch 12/10/18 12/10/18 12/10/18 04:38 05:07 07:26 WBC RBC Hgb Hct MCV MCH RDW Plt Count Lymph % (Auto) [place] % (Auto) Lymph # Seg Neutrophils % Seg Neuts % (Manual) Lymphocytes % (Manual) Monocytes % (Manual) Nucleated RBC % Seg Neutrophils # Seg Neutrophils # Man Lymphocytes # (Manual) Monocytes # (Manual) PT INR POC ABG pH POC ABG pCO2 POC ABG pO2 Sodium Potassium Chloride 112.5 H Carbon Dioxide 14 L BUN 94 H Creatinine 2.4 H Glucose 207 H POC Glucose 221 H 212 H Lactic Acid Calcium 7.7 L Phosphorus Magnesium Total Bilirubin AST Alkaline Phosphatase Total Creatine Kinase C-Reactive Protein Total Protein Albumin TSH Free T4 Urine WBC (Auto) Crossmatch 12/10/18 12/10/18 12/10/18 10:40 11:15 14:21 WBC RBC Hgb Hct MCV MCH RDW Plt Count Lymph % (Auto) [place] % (Auto) Lymph # Seg Neutrophils % Seg Neuts % (Manual) Lymphocytes % (Manual) Monocytes % (Manual) Nucleated RBC % Seg Neutrophils # Seg Neutrophils # Man Lymphocytes # (Manual) Monocytes # (Manual) PT 21.4 H INR 1.73 H POC ABG pH 7.214 L POC ABG pCO2 32.8 L POC ABG pO2 Sodium Potassium Chloride Carbon Dioxide BUN Creatinine Glucose POC Glucose 227 H Lactic Acid Calcium Phosphorus Magnesium Total Bilirubin AST Alkaline Phosphatase Total Creatine Kinase C-Reactive Protein Total Protein Albumin TSH Free T4 Urine WBC (Auto) Crossmatch 12/10/18 12/10/18 12/11/18 15:47 22:38 03:36 WBC RBC Hgb Hct MCV MCH RDW Plt Count Lymph % (Auto) [place] % (Auto) Lymph # Seg Neutrophils % Seg Neuts % (Manual) Lymphocytes % (Manual) Monocytes % (Manual) Nucleated RBC % Seg Neutrophils # Seg Neutrophils # Man Lymphocytes # (Manual) Monocytes # (Manual) PT INR POC ABG pH POC ABG pCO2 26.2 L POC ABG pO2 138 H Sodium Potassium Chloride Carbon Dioxide BUN Creatinine Glucose POC Glucose 202 H 259 H Lactic Acid Calcium Phosphorus Magnesium Total Bilirubin AST Alkaline Phosphatase Total Creatine Kinase C-Reactive Protein Total Protein Albumin TSH Free T4 Urine WBC (Auto) Crossmatch 12/11/18 12/11/18 12/11/18 04:12 05:00 06:19 WBC RBC Hgb Hct MCV MCH RDW Plt Count Lymph % (Auto) [place] % (Auto) Lymph # Seg Neutrophils % Seg Neuts % (Manual) Lymphocytes % (Manual) Monocytes % (Manual) Nucleated RBC % Seg Neutrophils # Seg Neutrophils # Man Lymphocytes # (Manual) Monocytes # (Manual) PT 19.5 H INR 1.54 H POC ABG pH POC ABG pCO2 24.6 L POC ABG pO2 119 H Sodium Potassium Chloride Carbon Dioxide BUN Creatinine Glucose POC Glucose 174 H Lactic Acid Calcium Phosphorus Magnesium Total Bilirubin AST Alkaline Phosphatase Total Creatine Kinase C-Reactive Protein Total Protein Albumin TSH Free T4 Urine WBC (Auto) Crossmatch 12/11/18 12/11/18 12/11/18 11:10 11:10 18:10 WBC 14.3 H RBC Hgb Hct MCV 73 L MCH 24 L RDW 21.5 H Plt Count Lymph % (Auto) [place] % (Auto) Lymph # Seg Neutrophils % Seg Neuts % (Manual) Lymphocytes % (Manual) Monocytes % (Manual) Nucleated RBC % Seg Neutrophils # Seg Neutrophils # Man Lymphocytes # (Manual) Monocytes # (Manual) PT INR POC ABG pH POC ABG pCO2 POC ABG pO2 Sodium Potassium Chloride 110.5 H Carbon Dioxide 15 L BUN 101 H Creatinine 2.4 H Glucose 119 H POC Glucose 147 H Lactic Acid Calcium 7.7 L Phosphorus Magnesium Total Bilirubin AST Alkaline Phosphatase Total Creatine Kinase C-Reactive Protein Total Protein Albumin TSH Free T4 Urine WBC (Auto) Crossmatch 12/11/18 12/12/18 12/12/18 23:25 05:37 06:03 WBC RBC Hgb Hct MCV MCH RDW Plt Count Lymph % (Auto) [place] % (Auto) Lymph # Seg Neutrophils % Seg Neuts % (Manual) Lymphocytes % (Manual) Monocytes % (Manual) Nucleated RBC % Seg Neutrophils # Seg Neutrophils # Man Lymphocytes # (Manual) Monocytes # (Manual) PT INR POC ABG pH 7.346 L POC ABG pCO2 28.3 L POC ABG pO2 120 H Sodium Potassium Chloride Carbon Dioxide BUN Creatinine Glucose POC Glucose 143 H 154 H Lactic Acid Calcium Phosphorus Magnesium Total Bilirubin AST Alkaline Phosphatase Total Creatine Kinase C-Reactive Protein Total Protein Albumin TSH Free T4 Urine WBC (Auto) Crossmatch 12/12/18 12/12/18 12/12/18 08:00 08:00 08:00 WBC 16.2 H RBC Hgb Hct MCV 74 L MCH 25 L RDW 21.9 H Plt Count 21 L Lymph % (Auto) [place] % (Auto) Lymph # Seg Neutrophils % Seg Neuts % (Manual) Lymphocytes % (Manual) Monocytes % (Manual) Nucleated RBC % Seg Neutrophils # Seg Neutrophils # Man Lymphocytes # (Manual) Monocytes # (Manual) PT 20.2 H INR 1.61 H POC ABG pH POC ABG pCO2 POC ABG pO2 Sodium Potassium Chloride 107.4 H Carbon Dioxide 16 L BUN 101 H Creatinine 2.3 H Glucose 169 H POC Glucose Lactic Acid Calcium 8.2 L Phosphorus Magnesium Total Bilirubin AST Alkaline Phosphatase Total Creatine Kinase C-Reactive Protein Total Protein Albumin TSH Free T4 Urine WBC (Auto) Crossmatch 12/12/18 12/12/18 12/13/18 12:59 18:01 04:28 WBC 18.6 H RBC Hgb Hct MCV 74 L MCH 24 L RDW 21.8 H Plt Count 34 L Lymph % (Auto) [place] % (Auto) Lymph # Seg Neutrophils % Seg Neuts % (Manual) 97.0 H Lymphocytes % (Manual) 2.0 L Monocytes % (Manual) Nucleated RBC % 1.0 H Seg Neutrophils # Seg Neutrophils # Man 18.0 H Lymphocytes # (Manual) 0.4 L Monocytes # (Manual) PT INR POC ABG pH POC ABG pCO2 POC ABG pO2 Sodium Potassium Chloride Carbon Dioxide BUN Creatinine Glucose POC Glucose 158 H 123 H Lactic Acid Calcium Phosphorus Magnesium Total Bilirubin AST Alkaline Phosphatase Total Creatine Kinase C-Reactive Protein Total Protein Albumin TSH Free T4 Urine WBC (Auto) Crossmatch 12/13/18 12/13/18 12/13/18 04:28 04:45 19:17 WBC RBC Hgb Hct MCV MCH RDW Plt Count Lymph % (Auto) [place] % (Auto) Lymph # Seg Neutrophils % Seg Neuts % (Manual) Lymphocytes % (Manual) Monocytes % (Manual) Nucleated RBC % Seg Neutrophils # Seg Neutrophils # Man Lymphocytes # (Manual) Monocytes # (Manual) PT INR POC ABG pH 7.327 L POC ABG pCO2 31.1 L POC ABG pO2 136 H Sodium Potassium Chloride 112.0 H Carbon Dioxide 17 L BUN 97 H Creatinine 2.2 H Glucose POC Glucose 106 H Lactic Acid Calcium 8.1 L Phosphorus Magnesium Total Bilirubin AST Alkaline Phosphatase Total Creatine Kinase C-Reactive Protein Total Protein Albumin TSH Free T4 Urine WBC (Auto) Crossmatch 12/13/18 12/14/18 12/14/18 23:24 03:35 03:35 WBC 22.0 H RBC Hgb Hct MCV 75 L MCH 24 L RDW 22.2 H Plt Count 44 L Lymph % (Auto) [place] % (Auto) Lymph # Seg Neutrophils % Seg Neuts % (Manual) 96.0 H Lymphocytes % (Manual) 3.0 L Monocytes % (Manual) Nucleated RBC % Seg Neutrophils # Seg Neutrophils # Man 21.1 H Lymphocytes # (Manual) 0.7 L Monocytes # (Manual) PT INR POC ABG pH POC ABG pCO2 POC ABG pO2 Sodium 136 L Potassium Chloride 107.2 H Carbon Dioxide 15 L BUN 87 H Creatinine 1.7 H Glucose 156 H POC Glucose 108 H Lactic Acid Calcium 7.7 L Phosphorus Magnesium Total Bilirubin AST Alkaline Phosphatase Total Creatine Kinase C-Reactive Protein Total Protein Albumin TSH Free T4 Urine WBC (Auto) Crossmatch 12/14/18 12/14/18 12/14/18 04:58 05:37 12:10 WBC RBC Hgb Hct MCV MCH RDW Plt Count Lymph % (Auto) [place] % (Auto) Lymph # Seg Neutrophils % Seg Neuts % (Manual) Lymphocytes % (Manual) Monocytes % (Manual) Nucleated RBC % Seg Neutrophils # Seg Neutrophils # Man Lymphocytes # (Manual) Monocytes # (Manual) PT INR POC ABG pH 7.301 L POC ABG pCO2 32.6 L POC ABG pO2 138 H Sodium Potassium Chloride Carbon Dioxide BUN Creatinine Glucose POC Glucose 178 H 208 H Lactic Acid Calcium Phosphorus Magnesium Total Bilirubin AST Alkaline Phosphatase Total Creatine Kinase C-Reactive Protein Total Protein Albumin TSH Free T4 Urine WBC (Auto) Crossmatch 12/14/18 12/14/18 12/15/18 17:44 23:16 03:37 WBC RBC Hgb Hct MCV MCH RDW Plt Count Lymph % (Auto) [place] % (Auto) Lymph # Seg Neutrophils % Seg Neuts % (Manual) Lymphocytes % (Manual) Monocytes % (Manual) Nucleated RBC % Seg Neutrophils # Seg Neutrophils # Man Lymphocytes # (Manual) Monocytes # (Manual) PT INR POC ABG pH 7.325 L POC ABG pCO2 28.6 L POC ABG pO2 Sodium Potassium Chloride Carbon Dioxide BUN Creatinine Glucose POC Glucose 172 H 123 H Lactic Acid Calcium Phosphorus Magnesium Total Bilirubin AST Alkaline Phosphatase Total Creatine Kinase C-Reactive Protein Total Protein Albumin TSH Free T4 Urine WBC (Auto) Crossmatch 12/15/18 12/15/18 12/15/18 05:30 05:30 05:43 WBC 20.1 H RBC Hgb 9.5 L Hct 29.2 L MCV 74 L MCH 24 L RDW 22.7 H Plt Count 48 L Lymph % (Auto) [place] % (Auto) Lymph # Seg Neutrophils % Seg Neuts % (Manual) 96.0 H Lymphocytes % (Manual) 1.0 L Monocytes % (Manual) Nucleated RBC % Seg Neutrophils # Seg Neutrophils # Man 19.3 H Lymphocytes # (Manual) 0.2 L Monocytes # (Manual) PT INR POC ABG pH POC ABG pCO2 POC ABG pO2 Sodium Potassium Chloride 110.8 H Carbon Dioxide 17 L BUN 83 H Creatinine 1.6 H Glucose 150 H POC Glucose 151 H Lactic Acid Calcium 7.7 L Phosphorus Magnesium Total Bilirubin AST Alkaline Phosphatase Total Creatine Kinase C-Reactive Protein Total Protein Albumin TSH Free T4 Urine WBC (Auto) Crossmatch 12/15/18 12/15/18 12/16/18 12:56 18:21 00:10 WBC RBC Hgb Hct MCV MCH RDW Plt Count Lymph % (Auto) [place] % (Auto) Lymph # Seg Neutrophils % Seg Neuts % (Manual) Lymphocytes % (Manual) Monocytes % (Manual) Nucleated RBC % Seg Neutrophils # Seg Neutrophils # Man Lymphocytes # (Manual) Monocytes # (Manual) PT INR POC ABG pH POC ABG pCO2 POC ABG pO2 Sodium Potassium Chloride Carbon Dioxide BUN Creatinine Glucose POC Glucose 190 H 143 H 174 H Lactic Acid Calcium Phosphorus Magnesium Total Bilirubin AST Alkaline Phosphatase Total Creatine Kinase C-Reactive Protein Total Protein Albumin TSH Free T4 Urine WBC (Auto) Crossmatch 12/16/18 12/16/18 12/16/18 05:24 05:30 05:30 WBC 17.1 H RBC Hgb 9.1 L Hct 28.8 L MCV 76 L MCH 24 L RDW 23.5 H Plt Count 37 L Lymph % (Auto) [place] % (Auto) Lymph # Seg Neutrophils % Seg Neuts % (Manual) Lymphocytes % (Manual) 9.0 L Monocytes % (Manual) 9.0 H Nucleated RBC % Seg Neutrophils # Seg Neutrophils # Man 9.6 H Lymphocytes # (Manual) Monocytes # (Manual) 1.5 H PT INR POC ABG pH POC ABG pCO2 POC ABG pO2 Sodium Potassium Chloride 110.8 H Carbon Dioxide 15 L BUN 81 H Creatinine 1.6 H Glucose 161 H POC Glucose 154 H Lactic Acid Calcium 7.6 L Phosphorus Magnesium Total Bilirubin AST Alkaline Phosphatase Total Creatine Kinase C-Reactive Protein Total Protein Albumin TSH Free T4 Urine WBC (Auto) Crossmatch 12/16/18 12/16/18 12/16/18 12:31 17:42 21:56 WBC RBC Hgb Hct MCV MCH RDW Plt Count Lymph % (Auto) [place] % (Auto) Lymph # Seg Neutrophils % Seg Neuts % (Manual) Lymphocytes % (Manual) Monocytes % (Manual) Nucleated RBC % Seg Neutrophils # Seg Neutrophils # Man Lymphocytes # (Manual) Monocytes # (Manual) PT INR POC ABG pH POC ABG pCO2 POC ABG pO2 Sodium Potassium Chloride Carbon Dioxide BUN Creatinine Glucose POC Glucose 172 H 173 H 118 H Lactic Acid Calcium Phosphorus Magnesium Total Bilirubin AST Alkaline Phosphatase Total Creatine Kinase C-Reactive Protein Total Protein Albumin TSH Free T4 Urine WBC (Auto) Crossmatch 12/16/18 12/17/18 12/17/18 23:38 04:24 04:24 WBC 19.2 H RBC Hgb 9.5 L Hct 29.7 L MCV 76 L MCH 24 L RDW 24.4 H Plt Count 26 L Lymph % (Auto) [place] % (Auto) Lymph # Seg Neutrophils % Seg Neuts % (Manual) Lymphocytes % (Manual) 6.0 L Monocytes % (Manual) Nucleated RBC % Seg Neutrophils # Seg Neutrophils # Man 13.1 H Lymphocytes # (Manual) Monocytes # (Manual) PT INR POC ABG pH POC ABG pCO2 POC ABG pO2 Sodium 134 L Potassium Chloride 110.0 H Carbon Dioxide 14 L BUN 83 H Creatinine 1.6 H Glucose POC Glucose 109 H Lactic Acid Calcium 7.8 L Phosphorus Magnesium Total Bilirubin AST Alkaline Phosphatase Total Creatine Kinase C-Reactive Protein Total Protein Albumin TSH Free T4 Urine WBC (Auto) Crossmatch 12/17/18 12/17/18 12/18/18 06:42 17:49 00:40 WBC RBC Hgb Hct MCV MCH RDW Plt Count Lymph % (Auto) [place] % (Auto) Lymph # Seg Neutrophils % Seg Neuts % (Manual) Lymphocytes % (Manual) Monocytes % (Manual) Nucleated RBC % Seg Neutrophils # Seg Neutrophils # Man Lymphocytes # (Manual) Monocytes # (Manual) PT INR POC ABG pH POC ABG pCO2 POC ABG pO2 Sodium Potassium Chloride 113.1 H Carbon Dioxide 13 L BUN 82 H Creatinine 1.6 H Glucose POC Glucose 66 L 109 H Lactic Acid Calcium 8.0 L Phosphorus Magnesium Total Bilirubin AST Alkaline Phosphatase Total Creatine Kinase C-Reactive Protein Total Protein Albumin TSH Free T4 Urine WBC (Auto) Crossmatch 12/18/18 12/18/18 12/18/18 04:08 04:08 12:45 WBC 26.5 H RBC 3.63 L Hgb 8.7 L Hct 26.8 L MCV 74 L MCH 24 L RDW 23.3 H Plt Count 24 L Lymph % (Auto) [place] % (Auto) Lymph # Seg Neutrophils % Seg Neuts % (Manual) Lymphocytes % (Manual) Monocytes % (Manual) Nucleated RBC % Seg Neutrophils # Seg Neutrophils # Man Lymphocytes # (Manual) Monocytes # (Manual) PT INR POC ABG pH POC ABG pCO2 POC ABG pO2 Sodium Potassium Chloride 114.3 H Carbon Dioxide 16 L BUN 82 H Creatinine 1.7 H Glucose POC Glucose 117 H Lactic Acid Calcium 7.8 L Phosphorus 5.10 H Magnesium Total Bilirubin AST Alkaline Phosphatase Total Creatine Kinase C-Reactive Protein Total Protein Albumin TSH Free T4 Urine WBC (Auto) Crossmatch 12/18/18 12/18/18 12/19/18 17:42 23:39 04:22 WBC 20.4 H RBC 3.01 L Hgb 7.2 L Hct 22.6 L MCV 75 L MCH 24 L RDW 24.5 H Plt Count 52 L D Lymph % (Auto) [place] % (Auto) Lymph # Seg Neutrophils % Seg Neuts % (Manual) Lymphocytes % (Manual) Monocytes % (Manual) Nucleated RBC % Seg Neutrophils # Seg Neutrophils # Man Lymphocytes # (Manual) Monocytes # (Manual) PT INR POC ABG pH POC ABG pCO2 POC ABG pO2 Sodium Potassium Chloride Carbon Dioxide BUN Creatinine Glucose POC Glucose 121 H 184 H Lactic Acid Calcium Phosphorus Magnesium Total Bilirubin AST Alkaline Phosphatase Total Creatine Kinase C-Reactive Protein Total Protein Albumin TSH Free T4 Urine WBC (Auto) Crossmatch 12/19/18 12/19/18 12/19/18 04:22 12:43 18:12 WBC RBC Hgb Hct MCV MCH RDW Plt Count Lymph % (Auto) [place] % (Auto) Lymph # Seg Neutrophils % Seg Neuts % (Manual) Lymphocytes % (Manual) Monocytes % (Manual) Nucleated RBC % Seg Neutrophils # Seg Neutrophils # Man Lymphocytes # (Manual) Monocytes # (Manual) PT INR POC ABG pH POC ABG pCO2 POC ABG pO2 Sodium Potassium Chloride 112.9 H Carbon Dioxide 15 L BUN 76 H Creatinine 1.8 H Glucose 107 H POC Glucose 141 H 227 H Lactic Acid Calcium 7.4 L Phosphorus Magnesium Total Bilirubin AST Alkaline Phosphatase Total Creatine Kinase C-Reactive Protein Total Protein Albumin TSH Free T4 Urine WBC (Auto) Crossmatch 12/19/18 12/19/18 12/20/18 23:55 Unknown 03:07 WBC 15.7 H RBC 2.92 L Hgb 7.2 L 7.1 L Hct 22.2 L 21.6 L MCV 74 L MCH 24 L RDW 24.3 H Plt Count 23 L Lymph % (Auto) [place] % (Auto) Lymph # Seg Neutrophils % Seg Neuts % (Manual) Lymphocytes % (Manual) Monocytes % (Manual) Nucleated RBC % Seg Neutrophils # Seg Neutrophils # Man Lymphocytes # (Manual) Monocytes # (Manual) PT INR POC ABG pH POC ABG pCO2 POC ABG pO2 Sodium Potassium Chloride Carbon Dioxide BUN Creatinine Glucose POC Glucose 174 H Lactic Acid Calcium Phosphorus Magnesium Total Bilirubin AST Alkaline Phosphatase Total Creatine Kinase C-Reactive Protein Total Protein Albumin TSH Free T4 Urine WBC (Auto) Crossmatch 12/20/18 12/20/18 12/20/18 03:07 05:20 11:00 WBC RBC Hgb Hct MCV MCH RDW Plt Count Lymph % (Auto) [place] % (Auto) Lymph # Seg Neutrophils % Seg Neuts % (Manual) Lymphocytes % (Manual) Monocytes % (Manual) Nucleated RBC % Seg Neutrophils # Seg Neutrophils # Man Lymphocytes # (Manual) Monocytes # (Manual) PT INR POC ABG pH POC ABG pCO2 POC ABG pO2 Sodium 136 L Potassium Chloride Carbon Dioxide 20 L BUN 79 H Creatinine 2.1 H Glucose 141 H POC Glucose 210 H Lactic Acid Calcium 7.5 L Phosphorus Magnesium Total Bilirubin AST Alkaline Phosphatase Total Creatine Kinase C-Reactive Protein Total Protein Albumin TSH Free T4 Urine WBC (Auto) Crossmatch See Detail 12/20/18 12/20/18 12/21/18 11:40 17:51 00:33 WBC RBC Hgb Hct MCV MCH RDW Plt Count Lymph % (Auto) [place] % (Auto) Lymph # Seg Neutrophils % Seg Neuts % (Manual) Lymphocytes % (Manual) Monocytes % (Manual) Nucleated RBC % Seg Neutrophils # Seg Neutrophils # Man Lymphocytes # (Manual) Monocytes # (Manual) PT INR POC ABG pH POC ABG pCO2 POC ABG pO2 Sodium Potassium Chloride Carbon Dioxide BUN Creatinine Glucose POC Glucose 183 H 150 H 119 H Lactic Acid Calcium Phosphorus Magnesium Total Bilirubin AST Alkaline Phosphatase Total Creatine Kinase C-Reactive Protein Total Protein Albumin TSH Free T4 Urine WBC (Auto) Crossmatch 12/21/18 12/21/18 12/21/18 05:05 07:19 07:19 WBC 11.9 H RBC 2.83 L Hgb 6.9 L Hct 20.7 L MCV 73 L MCH 24 L RDW 23.9 H Plt Count 11 L* Lymph % (Auto) [place] % (Auto) Lymph # Seg Neutrophils % Seg Neuts % (Manual) Lymphocytes % (Manual) Monocytes % (Manual) Nucleated RBC % Seg Neutrophils # Seg Neutrophils # Man Lymphocytes # (Manual) Monocytes # (Manual) PT INR POC ABG pH POC ABG pCO2 POC ABG pO2 Sodium 135 L Potassium Chloride Carbon Dioxide 21 L BUN 78 H Creatinine 2.3 H Glucose 143 H POC Glucose 165 H Lactic Acid Calcium 7.3 L Phosphorus Magnesium Total Bilirubin AST Alkaline Phosphatase Total Creatine Kinase C-Reactive Protein Total Protein Albumin TSH Free T4 Urine WBC (Auto) Crossmatch 12/21/18 12/21/18 12/21/18 11:55 17:39 18:00 WBC RBC Hgb 7.9 L Hct 23.8 L MCV MCH RDW Plt Count Lymph % (Auto) [place] % (Auto) Lymph # Seg Neutrophils % Seg Neuts % (Manual) Lymphocytes % (Manual) Monocytes % (Manual) Nucleated RBC % Seg Neutrophils # Seg Neutrophils # Man Lymphocytes # (Manual) Monocytes # (Manual) PT INR POC ABG pH POC ABG pCO2 POC ABG pO2 Sodium Potassium Chloride Carbon Dioxide BUN Creatinine Glucose POC Glucose 125 H 108 H Lactic Acid Calcium Phosphorus Magnesium Total Bilirubin AST Alkaline Phosphatase Total Creatine Kinase C-Reactive Protein Total Protein Albumin TSH Free T4 Urine WBC (Auto) Crossmatch 12/21/18 12/22/18 12/22/18 23:55 05:35 05:35 WBC 11.8 H RBC Hgb 9.4 L Hct 28.3 L MCV 76 L MCH 25 L RDW 24.5 H Plt Count 26 L D Lymph % (Auto) [place] % (Auto) Lymph # Seg Neutrophils % Seg Neuts % (Manual) Lymphocytes % (Manual) Monocytes % (Manual) Nucleated RBC % Seg Neutrophils # Seg Neutrophils # Man Lymphocytes # (Manual) Monocytes # (Manual) PT INR POC ABG pH POC ABG pCO2 POC ABG pO2 Sodium 132 L Potassium Chloride Carbon Dioxide 21 L BUN 79 H Creatinine 2.3 H Glucose 131 H POC Glucose 126 H Lactic Acid Calcium 7.4 L Phosphorus Magnesium Total Bilirubin AST Alkaline Phosphatase Total Creatine Kinase C-Reactive Protein Total Protein Albumin TSH Free T4 Urine WBC (Auto) Crossmatch 12/22/18 12/22/18 12/22/18 06:34 11:39 17:29 WBC RBC Hgb Hct MCV MCH RDW Plt Count Lymph % (Auto) [place] % (Auto) Lymph # Seg Neutrophils % Seg Neuts % (Manual) Lymphocytes % (Manual) Monocytes % (Manual) Nucleated RBC % Seg Neutrophils # Seg Neutrophils # Man Lymphocytes # (Manual) Monocytes # (Manual) PT INR POC ABG pH POC ABG pCO2 POC ABG pO2 Sodium Potassium Chloride Carbon Dioxide BUN Creatinine Glucose POC Glucose 126 H 176 H 180 H Lactic Acid Calcium Phosphorus Magnesium Total Bilirubin AST Alkaline Phosphatase Total Creatine Kinase C-Reactive Protein Total Protein Albumin TSH Free T4 Urine WBC (Auto) Crossmatch 12/22/18 12/23/18 12/23/18 23:19 05:56 08:50 WBC RBC Hgb Hct MCV MCH RDW Plt Count Lymph % (Auto) [place] % (Auto) Lymph # Seg Neutrophils % Seg Neuts % (Manual) Lymphocytes % (Manual) Monocytes % (Manual) Nucleated RBC % Seg Neutrophils # Seg Neutrophils # Man Lymphocytes # (Manual) Monocytes # (Manual) PT INR POC ABG pH POC ABG pCO2 POC ABG pO2 Sodium 134 L Potassium Chloride Carbon Dioxide BUN 80 H Creatinine 2.4 H Glucose 133 H POC Glucose 135 H 174 H Lactic Acid Calcium 7.0 L Phosphorus Magnesium Total Bilirubin AST Alkaline Phosphatase Total Creatine Kinase C-Reactive Protein Total Protein Albumin TSH Free T4 Urine WBC (Auto) Crossmatch 12/23/18 12/23/18 12/24/18 08:50 11:18 00:18 WBC RBC 3.29 L Hgb 8.5 L Hct 24.9 L MCV 76 L MCH 26 L RDW 24.9 H Plt Count 7 L* Lymph % (Auto) [place] % (Auto) Lymph # Seg Neutrophils % Seg Neuts % (Manual) Lymphocytes % (Manual) Monocytes % (Manual) Nucleated RBC % Seg Neutrophils # Seg Neutrophils # Man Lymphocytes # (Manual) Monocytes # (Manual) PT INR POC ABG pH POC ABG pCO2 POC ABG pO2 Sodium Potassium Chloride Carbon Dioxide BUN Creatinine Glucose POC Glucose 164 H 64 L Lactic Acid Calcium Phosphorus Magnesium Total Bilirubin AST Alkaline Phosphatase Total Creatine Kinase C-Reactive Protein Total Protein Albumin TSH Free T4 Urine WBC (Auto) Crossmatch 12/24/18 12/24/18 12/24/18 00:56 06:00 06:00 WBC RBC Hgb 9.7 L Hct 29.1 L MCV 76 L MCH 25 L RDW 24.9 H Plt Count 30 L D Lymph % (Auto) [place] % (Auto) Lymph # Seg Neutrophils % Seg Neuts % (Manual) 86.0 H Lymphocytes % (Manual) 0 L Monocytes % (Manual) Nucleated RBC % Seg Neutrophils # Seg Neutrophils # Man 9.1 H Lymphocytes # (Manual) 0.0 L Monocytes # (Manual) PT INR POC ABG pH POC ABG pCO2 POC ABG pO2 Sodium 132 L Potassium Chloride Carbon Dioxide BUN 79 H Creatinine 2.4 H Glucose 117 H POC Glucose 162 H Lactic Acid Calcium 7.5 L Phosphorus Magnesium Total Bilirubin AST 48 H Alkaline Phosphatase 252 H Total Creatine Kinase C-Reactive Protein Total Protein 5.5 L Albumin 1.6 L TSH Free T4 Urine WBC (Auto) Crossmatch 12/24/18 12/24/18 12/24/18 06:00 12:03 18:45 WBC RBC Hgb Hct MCV MCH RDW Plt Count Lymph % (Auto) [place] % (Auto) Lymph # Seg Neutrophils % Seg Neuts % (Manual) Lymphocytes % (Manual) Monocytes % (Manual) Nucleated RBC % Seg Neutrophils # Seg Neutrophils # Man Lymphocytes # (Manual) Monocytes # (Manual) PT INR POC ABG pH POC ABG pCO2 POC ABG pO2 Sodium Potassium Chloride Carbon Dioxide BUN Creatinine Glucose POC Glucose 153 H 133 H Lactic Acid Calcium Phosphorus 6.60 H Magnesium 2.40 H Total Bilirubin AST Alkaline Phosphatase Total Creatine Kinase C-Reactive Protein Total Protein Albumin TSH Free T4 Urine WBC (Auto) Crossmatch 12/24/18 12/25/18 12/25/18 23:08 06:36 12:05 WBC RBC Hgb Hct MCV MCH RDW Plt Count Lymph % (Auto) [place] % (Auto) Lymph # Seg Neutrophils % Seg Neuts % (Manual) Lymphocytes % (Manual) Monocytes % (Manual) Nucleated RBC % Seg Neutrophils # Seg Neutrophils # Man Lymphocytes # (Manual) Monocytes # (Manual) PT INR POC ABG pH POC ABG pCO2 POC ABG pO2 Sodium Potassium Chloride Carbon Dioxide BUN Creatinine Glucose POC Glucose 125 H 176 H 161 H Lactic Acid Calcium Phosphorus Magnesium Total Bilirubin AST Alkaline Phosphatase Total Creatine Kinase C-Reactive Protein Total Protein Albumin TSH Free T4 Urine WBC (Auto) Crossmatch 12/25/18 12/26/18 12/26/18 18:33 00:07 05:09 WBC RBC Hgb Hct MCV MCH RDW Plt Count Lymph % (Auto) [place] % (Auto) Lymph # Seg Neutrophils % Seg Neuts % (Manual) Lymphocytes % (Manual) Monocytes % (Manual) Nucleated RBC % Seg Neutrophils # Seg Neutrophils # Man Lymphocytes # (Manual) Monocytes # (Manual) PT INR POC ABG pH POC ABG pCO2 POC ABG pO2 Sodium Potassium Chloride Carbon Dioxide BUN Creatinine Glucose POC Glucose 237 H 178 H 171 H Lactic Acid Calcium Phosphorus Magnesium Total Bilirubin AST Alkaline Phosphatase Total Creatine Kinase C-Reactive Protein Total Protein Albumin TSH Free T4 Urine WBC (Auto) Crossmatch 12/26/18 12/26/18 12/26/18 11:27 17:52 23:39 WBC RBC Hgb Hct MCV MCH RDW Plt Count Lymph % (Auto) [place] % (Auto) Lymph # Seg Neutrophils % Seg Neuts % (Manual) Lymphocytes % (Manual) Monocytes % (Manual) Nucleated RBC % Seg Neutrophils # Seg Neutrophils # Man Lymphocytes # (Manual) Monocytes # (Manual) PT INR POC ABG pH POC ABG pCO2 POC ABG pO2 Sodium Potassium Chloride Carbon Dioxide BUN Creatinine Glucose POC Glucose 205 H 166 H 122 H Lactic Acid Calcium Phosphorus Magnesium Total Bilirubin AST Alkaline Phosphatase Total Creatine Kinase C-Reactive Protein Total Protein Albumin TSH Free T4 Urine WBC (Auto) Crossmatch 12/27/18 12/27/18 12/27/18 06:21 14:29 16:20 WBC RBC 3.01 L Hgb 7.6 L Hct 23.0 L MCV 76 L MCH 25 L RDW 24.4 H Plt Count 28 L Lymph % (Auto) 8.9 L [place] % (Auto) 7.4 H Lymph # 0.6 L Seg Neutrophils % 83.4 H Seg Neuts % (Manual) Lymphocytes % (Manual) Monocytes % (Manual) Nucleated RBC % Seg Neutrophils # Seg Neutrophils # Man Lymphocytes # (Manual) Monocytes # (Manual) PT INR POC ABG pH POC ABG pCO2 POC ABG pO2 Sodium Potassium Chloride Carbon Dioxide BUN Creatinine Glucose POC Glucose 174 H 197 H Lactic Acid Calcium Phosphorus Magnesium Total Bilirubin AST Alkaline Phosphatase Total Creatine Kinase C-Reactive Protein Total Protein Albumin TSH Free T4 Urine WBC (Auto) Crossmatch 12/27/18 12/27/18 12/27/18 16:20 17:42 20:16 WBC RBC Hgb Hct MCV MCH RDW Plt Count Lymph % (Auto) [place] % (Auto) Lymph # Seg Neutrophils % Seg Neuts % (Manual) Lymphocytes % (Manual) Monocytes % (Manual) Nucleated RBC % Seg Neutrophils # Seg Neutrophils # Man Lymphocytes # (Manual) Monocytes # (Manual) PT INR POC ABG pH POC ABG pCO2 POC ABG pO2 Sodium Potassium Chloride Carbon Dioxide 21 L BUN 106 H Creatinine 3.0 H Glucose 184 H POC Glucose 211 H Lactic Acid Calcium 6.8 L Phosphorus Magnesium Total Bilirubin AST Alkaline Phosphatase Total Creatine Kinase C-Reactive Protein Total Protein Albumin TSH Free T4 Urine WBC (Auto) Crossmatch See Detail 12/28/18 12/28/18 12/28/18 00:39 01:03 06:42 WBC RBC Hgb 8.2 L Hct 24.6 L MCV MCH RDW Plt Count Lymph % (Auto) [place] % (Auto) Lymph # Seg Neutrophils % Seg Neuts % (Manual) Lymphocytes % (Manual) Monocytes % (Manual) Nucleated RBC % Seg Neutrophils # Seg Neutrophils # Man Lymphocytes # (Manual) Monocytes # (Manual) PT INR POC ABG pH POC ABG pCO2 POC ABG pO2 Sodium Potassium Chloride Carbon Dioxide BUN Creatinine Glucose POC Glucose 135 H 160 H Lactic Acid Calcium Phosphorus Magnesium Total Bilirubin AST Alkaline Phosphatase Total Creatine Kinase C-Reactive Protein Total Protein Albumin TSH Free T4 Urine WBC (Auto) Crossmatch 12/28/18 12/28/18 12/28/18 07:30 07:30 11:33 WBC RBC 3.43 L Hgb 9.3 L Hct 27.5 L MCV MCH 27 L RDW 24.0 H Plt Count 34 L Lymph % (Auto) [place] % (Auto) Lymph # Seg Neutrophils % 86.0 H Seg Neuts % (Manual) 88.0 H Lymphocytes % (Manual) 6.0 L Monocytes % (Manual) Nucleated RBC % Seg Neutrophils # Seg Neutrophils # Man Lymphocytes # (Manual) 0.4 L Monocytes # (Manual) PT INR POC ABG pH POC ABG pCO2 POC ABG pO2 Sodium Potassium Chloride Carbon Dioxide 20 L BUN 101 H Creatinine 2.8 H Glucose 155 H POC Glucose 171 H Lactic Acid Calcium 6.5 L Phosphorus 7.40 H Magnesium Total Bilirubin AST Alkaline Phosphatase Total Creatine Kinase C-Reactive Protein Total Protein Albumin TSH Free T4 Urine WBC (Auto) Crossmatch 12/28/18 12/28/18 12/29/18 17:16 23:53 05:45 WBC RBC Hgb Hct 29.7 L MCV MCH 27 L RDW 23.8 H Plt Count 32 L Lymph % (Auto) [place] % (Auto) Lymph # Seg Neutrophils % Seg Neuts % (Manual) 94.0 H Lymphocytes % (Manual) 4.0 L Monocytes % (Manual) Nucleated RBC % 1.0 H Seg Neutrophils # Seg Neutrophils # Man Lymphocytes # (Manual) 0.2 L Monocytes # (Manual) PT INR POC ABG pH POC ABG pCO2 POC ABG pO2 Sodium Potassium Chloride Carbon Dioxide BUN Creatinine Glucose POC Glucose 151 H 108 H Lactic Acid Calcium Phosphorus Magnesium Total Bilirubin AST Alkaline Phosphatase Total Creatine Kinase C-Reactive Protein Total Protein Albumin TSH Free T4 Urine WBC (Auto) Crossmatch 12/29/18 12/29/18 12/29/18 05:45 12:40 18:04 WBC RBC Hgb Hct MCV MCH RDW Plt Count Lymph % (Auto) [place] % (Auto) Lymph # Seg Neutrophils % Seg Neuts % (Manual) Lymphocytes % (Manual) Monocytes % (Manual) Nucleated RBC % Seg Neutrophils # Seg Neutrophils # Man Lymphocytes # (Manual) Monocytes # (Manual) PT INR POC ABG pH POC ABG pCO2 POC ABG pO2 Sodium Potassium Chloride Carbon Dioxide 20 L BUN 103 H Creatinine 2.7 H Glucose POC Glucose 108 H 147 H Lactic Acid Calcium 6.6 L Phosphorus 7.20 H Magnesium Total Bilirubin AST 49 H Alkaline Phosphatase 309 H Total Creatine Kinase C-Reactive Protein Total Protein 4.6 L Albumin 1.6 L TSH Free T4 Urine WBC (Auto) Crossmatch 12/29/18 12/30/18 12/30/18 23:47 05:44 11:29 WBC RBC Hgb Hct MCV MCH RDW Plt Count Lymph % (Auto) [place] % (Auto) Lymph # Seg Neutrophils % Seg Neuts % (Manual) Lymphocytes % (Manual) Monocytes % (Manual) Nucleated RBC % Seg Neutrophils # Seg Neutrophils # Man Lymphocytes # (Manual) Monocytes # (Manual) PT INR POC ABG pH POC ABG pCO2 POC ABG pO2 Sodium Potassium Chloride Carbon Dioxide BUN Creatinine Glucose POC Glucose 119 H 129 H 226 H Lactic Acid Calcium Phosphorus Magnesium Total Bilirubin AST Alkaline Phosphatase Total Creatine Kinase C-Reactive Protein Total Protein Albumin TSH Free T4 Urine WBC (Auto) Crossmatch 12/30/18 12/30/18 12/30/18 13:58 13:58 18:38 WBC RBC 3.12 L Hgb 8.3 L Hct 25.1 L MCV MCH 27 L RDW 24.5 H Plt Count 30 L Lymph % (Auto) [place] % (Auto) Lymph # Seg Neutrophils % Seg Neuts % (Manual) 79.0 H Lymphocytes % (Manual) 1.0 L Monocytes % (Manual) Nucleated RBC % Seg Neutrophils # Seg Neutrophils # Man Lymphocytes # (Manual) 0.0 L Monocytes # (Manual) PT INR POC ABG pH POC ABG pCO2 POC ABG pO2 Sodium Potassium Chloride Carbon Dioxide 19 L BUN 101 H Creatinine 2.4 H Glucose 196 H POC Glucose 154 H Lactic Acid Calcium 6.5 L Phosphorus Magnesium Total Bilirubin AST 45 H Alkaline Phosphatase 321 H Total Creatine Kinase C-Reactive Protein Total Protein 4.2 L Albumin 1.4 L TSH Free T4 Urine WBC (Auto) Crossmatch 12/30/18 12/31/18 12/31/18 23:46 03:55 03:55 WBC 4.4 L RBC 3.08 L Hgb 8.3 L Hct 24.9 L MCV MCH 27 L RDW 25.0 H Plt Count 14 L* Lymph % (Auto) [place] % (Auto) Lymph # Seg Neutrophils % Seg Neuts % (Manual) 71.0 H Lymphocytes % (Manual) 1.0 L Monocytes % (Manual) Nucleated RBC % Seg Neutrophils # Seg Neutrophils # Man Lymphocytes # (Manual) 0.0 L Monocytes # (Manual) PT INR POC ABG pH POC ABG pCO2 POC ABG pO2 Sodium Potassium 3.3 L Chloride 109.3 H Carbon Dioxide 20 L BUN 101 H Creatinine 2.5 H Glucose 126 H POC Glucose 141 H Lactic Acid Calcium 6.7 L Phosphorus 7.10 H Magnesium Total Bilirubin AST 42 H Alkaline Phosphatase 298 H Total Creatine Kinase C-Reactive Protein Total Protein 4.1 L Albumin 1.1 L TSH Free T4 Urine WBC (Auto) Crossmatch 12/31/18 12/31/18 12/31/18 05:13 11:49 18:51 WBC RBC Hgb Hct MCV MCH RDW Plt Count Lymph % (Auto) [place] % (Auto) Lymph # Seg Neutrophils % Seg Neuts % (Manual) Lymphocytes % (Manual) Monocytes % (Manual) Nucleated RBC % Seg Neutrophils # Seg Neutrophils # Man Lymphocytes # (Manual) Monocytes # (Manual) PT INR POC ABG pH POC ABG pCO2 POC ABG pO2 Sodium Potassium Chloride Carbon Dioxide BUN Creatinine Glucose POC Glucose 117 H 113 H 116 H Lactic Acid Calcium Phosphorus Magnesium Total Bilirubin AST Alkaline Phosphatase Total Creatine Kinase C-Reactive Protein Total Protein Albumin TSH Free T4 Urine WBC (Auto) Crossmatch 12/31/18 01/01/19 01/01/19 23:48 04:30 04:30 WBC RBC 2.86 L Hgb 7.7 L Hct 22.9 L MCV MCH 27 L RDW 25.0 H Plt Count 42 L D Lymph % (Auto) [place] % (Auto) Lymph # Seg Neutrophils % Seg Neuts % (Manual) Lymphocytes % (Manual) Monocytes % (Manual) Nucleated RBC % Seg Neutrophils # Seg Neutrophils # Man Lymphocytes # (Manual) Monocytes # (Manual) PT INR POC ABG pH POC ABG pCO2 POC ABG pO2 Sodium Potassium Chloride 110.0 H Carbon Dioxide 21 L BUN 96 H Creatinine 2.3 H Glucose 109 H POC Glucose 113 H Lactic Acid Calcium 6.5 L Phosphorus Magnesium Total Bilirubin AST Alkaline Phosphatase Total Creatine Kinase C-Reactive Protein Total Protein Albumin TSH Free T4 Urine WBC (Auto) Crossmatch 01/01/19 01/01/19 01/01/19 05:43 09:07 11:30 WBC RBC Hgb Hct MCV MCH RDW Plt Count Lymph % (Auto) [place] % (Auto) Lymph # Seg Neutrophils % Seg Neuts % (Manual) Lymphocytes % (Manual) Monocytes % (Manual) Nucleated RBC % Seg Neutrophils # Seg Neutrophils # Man Lymphocytes # (Manual) Monocytes # (Manual) PT INR POC ABG pH POC ABG pCO2 POC ABG pO2 Sodium Potassium Chloride Carbon Dioxide BUN Creatinine Glucose POC Glucose 118 H 144 H Lactic Acid Calcium Phosphorus Magnesium Total Bilirubin AST Alkaline Phosphatase Total Creatine Kinase C-Reactive Protein Total Protein Albumin TSH Free T4 Urine WBC (Auto) Crossmatch See Detail 01/02/19 01/02/19 01/02/19 05:20 05:20 16:45 WBC RBC 2.48 L 3.19 L Hgb 6.6 L 8.8 L Hct 20.1 L 26.8 L D MCV MCH 27 L RDW 24.7 H 23.3 H Plt Count 103 L D 99 L Lymph % (Auto) [place] % (Auto) Lymph # Seg Neutrophils % Seg Neuts % (Manual) 75.0 H Lymphocytes % (Manual) 12.0 L 2.0 L Monocytes % (Manual) 8.0 H Nucleated RBC % Seg Neutrophils # Seg Neutrophils # Man Lymphocytes # (Manual) 0.7 L 0.1 L Monocytes # (Manual) PT INR POC ABG pH POC ABG pCO2 POC ABG pO2 Sodium 148 H Potassium 3.4 L Chloride 111.8 H Carbon Dioxide 21 L BUN 92 H Creatinine 2.1 H Glucose 103 H POC Glucose Lactic Acid Calcium 6.5 L Phosphorus 7.00 H Magnesium Total Bilirubin AST Alkaline Phosphatase Total Creatine Kinase C-Reactive Protein Total Protein Albumin TSH Free T4 Urine WBC (Auto) Crossmatch 01/02/19 01/03/19 01/03/19 18:45 05:30 05:30 WBC RBC Hgb 10.0 L Hct 30.2 L MCV MCH 27 L RDW 22.3 H Plt Count 77 L Lymph % (Auto) [place] % (Auto) Lymph # Seg Neutrophils % Seg Neuts % (Manual) 93.0 H Lymphocytes % (Manual) 4.0 L Monocytes % (Manual) Nucleated RBC % Seg Neutrophils # Seg Neutrophils # Man Lymphocytes # (Manual) 0.3 L Monocytes # (Manual) PT INR POC ABG pH POC ABG pCO2 POC ABG pO2 Sodium 150 H Potassium 3.4 L Chloride 114.5 H Carbon Dioxide BUN 89 H Creatinine 2.1 H Glucose POC Glucose 106 H Lactic Acid Calcium 6.8 L Phosphorus Magnesium Total Bilirubin AST Alkaline Phosphatase Total Creatine Kinase C-Reactive Protein Total Protein Albumin TSH Free T4 Urine WBC (Auto) Crossmatch
--- NOTE | 2019-01-03 16:57 | XRay Report ---
PROCEDURES: XR CHEST 1V AP TECHNIQUE: AP portable view of the chest. HISTORY: trach COMPARISON: CXR 12/15/2018 FINDINGS: Lines, tubes, and devices: Tracheostomy tube has been placed in satisfactory position. Right subclavi an PICC line terminates in the mid superior vena cava. Dual lead left subclavian pacemaker terminates in the right atrium and right ventricle. Endotracheal tube and nasogastric tube have been removed Lungs and pleura: Trachea is normal in position. Density in the left base is again noted, probably as sociated with the cardiomegaly. Cardiomediastinal silhouette: Heart is enlarged but stable. Calcification of the aortic arch is again noted. Other: Bony structures are intact. IMPRESSION: Satisfactory placement of a tracheostomy tube. No change in the chest. This document is electronically signed by Mindi Tomlinson MD., January 03 2019 04:55:45 PM ET
[2019-01-03] MEDS ORDERED: NACL 0.9% 1000 ML 1,000 ML IV ONE (17:04)
[2019-01-04] MEDS: HumaLOG SUB-Q SCH ×3 (00:10→14:28)
[2019-01-04] MEDS: D50W (25GM) Syringe IV PRN (01:45)
[2019-01-04] MEDS: DUONEB *Not for PRN Use IH SCH ×2 (02:33→08:57)
[2019-01-04 05:36] LABS: Basophils % (Auto) 0.9 % (0.0-1.8); Eosinophils # (Auto) 0.1 K/mm3 (0.0-0.4); Eosinophils % (Auto) 2.4 % (0.0-4.3); Hematocrit 27.6 % (30.3-42.9); Hemoglobin 9.3 gm/dl (10.1-14.3); Lymphocytes # (Auto) 0.3 K/mm3 (1.2-5.4); Lymphocytes % (Auto) 6.4 % (13.4-35.0); Mean Corpuscular HGB Conc 34 % (30-34); Mean Corpuscular Volume 83 fl (79-97); Monocytes # (Auto) 0.2 K/mm3 (0.0-0.8); Monocytes % (Auto) 4.1 % (0.0-7.3); Red Blood Count 3.33 M/mm3 (3.65-5.03)
[2019-01-04 05:50] LABS: Platelet Count 68 K/mm3 (140-440); Red Cell Distribution Width 22.8 % (13.2-15.2)
[2019-01-04 05:56] LABS: Calcium 6.6 mg/dL (8.4-10.2)
[2019-01-04] MEDS: LOPRESSOR PO SCH (08:00)
[2019-01-04] MEDS: SODIUM CHLORIDE FLUSH SYRINGE 10 ML IV SCH (09:30)
[2019-01-04] MEDS: PREVACID SOLUTAB FEEDTUBE SCH (09:30)
--- NOTE | 2019-01-04 11:31 | Discharge Summary ---
Providers - Providers Date of Admission: 12/08/18 15:48 Date of discharge: 01/04/19 Attending physician: MARCIA DE LEON 12/08/18 13:27 Consult to Physician [CONS] Urgent Comment: Dr. Robles notified @ 13:32- [facility] Consulting Provider: ALONA ROBLES Physician Instructions: Reason For Exam: resp failure shock 12/08/18 13:31 Consult to Dietitian/Nutrition [CONS] Routine Physician Instructions: Reason For Exam: Reason for Consult: Evaluate nutritional intake 12/09/18 04:05 Consult to Dietitian/Nutrition [CONS] Routine Physician Instructions: Assess nutrtn needs, initiate, modify, manage TF Reason For Exam: tube feeding Reason for Consult: Write/Manage Tube Feeding Reason for Consult: Write/Manage Tube Feeding 12/09/18 09:46 Consult to Physician [CONS] Routine Comment: Consulting Provider: DOLORES ROMEO Physician Instructions: Reason For Exam: Sepsis, UTI 12/09/18 11:22 Consult to Physician [CONS] Routine Comment: Consulting Provider: YAZ MURRAY Physician Instructions: Reason For Exam: coffee ground material from NG tube, anemia 12/10/18 06:41 Consult to Physician [CONS] Routine Comment: Consulting Provider: SEAN JENSEN Physician Instructions: Reason For Exam: MARYANN 12/10/18 07:48 Consult to Physician [CONS] Routine Comment: Consulting Provider: ARTURO PACK Physician Instructions: Reason For Exam: maryann 12/11/18 11:27 Consult to Physician [CONS] Routine Comment: Consulting Provider: CHERRY DOMÍNGUEZ Physician Instructions: Reason For Exam: encephalopathy,sepsis,ARF 12/12/18 11:27 Consult to PICC Line RN [CONS] Routine Reason For Exam: IV access Type Line:: Midline 12/18/18 14:58 PICC Line Placement [Consult to PICC Line RN] [CONS] Stat Reason For Exam: Low B/P possible will start on pressure Type Line:: PICC 12/18/18 15:05 Consult to Physician [CONS] Routine Comment: Consulting Provider: PAUL VINES Physician Instructions: Reason For Exam: Central line placement, please 12/19/18 09:21 Consult to PICC Line RN [CONS] Stat Reason For Exam: picc line Type Line:: PICC 12/27/18 11:46 Consult to Physician [CONS] Routine Comment: Consulting Provider: JESSEE LAIRD Physician Instructions: Reason For Exam: Trach/PEG 12/28/18 15:44 Consult to Physician [CONS] Routine Comment: Please discuss neurological prognosis w/ family Consulting Provider: CHERRY DOMÍNGUEZ Physician Instructions: Reason For Exam: Encephalopathy f/u; s/p EEG 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 Reason for admission: altered level of consciousness and acute hypoxic respiratory failure Condition: Critical Pertinent studies: CT head CT chest Multiple chest x-rays Echocardiogram Procedures: Tracheostomy and PEG placement Hospital course: 88-year-old female patient was admitted through emergency room with altered level of consciousness and acute respiratory failure, Patient was promptly intubated and placed on ventilatory support admitted to ICU evaluation by pulmonary, unable to wean, patient's family wanted full CODE STATUS, surgery evaluated, Patient underwent trach and PEG continues to be vent dependent Patient also had sepsis pneumonia, received appropriate antibiotics ID evaluated the patient Today patient is being transferred to LTAC for further evaluation and management Patient is hemodynamically stable but guarded prognosis at discharge Discharge diagnosis; And management --Acute respiratory failure; vent dependent s/p trach and PEG Continue ventilatory support, trach care --Anemia;s/p total 6 PRBC transfused ,today hemoglobin 10 today Transfuse 2 units of PRBC, possible trach and PEG tomorrow --Thrombocytopenia Received total 7 Units platelets until now, Plt 68K today --Lower GI Bleeding: and h/o Coffee ground emesis:GI evaluated Resolved,No need for endoscopy --Hypokalemia; corrected --hypotension ; blood pressure is well maintained normal saline fluid bolus as needed --Acute encephalopathy: Multifactorial, CT head extensive right MCA encephalomalcia, right mastoid opacities. neurology evaluated. 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 --s/p Severe Sepsis due to UTI , right mastoiditis, aspiration PNA Blood cultures negative, right ear Cx negative Completed antibiotics per ID --s/p Septic Shock, --Left lower lobe infiltrate, poss pneumonia s/p antibiotics --Large Pericardial effusion without tamponade TTE EF>50,Cardiology evaluated, medical management Poor candidate for any procedure --MARYANN on CKD 3 Nephrology following-avoid nephrotoxins --Acute on chronic anemia has h/o anemia requiring previous blood transfusions could be multifactorial (GI bleed and CKD), Total 4 Units PRBC transfused --Hypothermia, supportive care --Diabetes mellitus type 2, SSI as needed Full code status. Patient is being transferred to LTAC Condition at discharge guarded Disposition: [id number] ANOTHER TYPE HLTHCARE Time spent for discharge: 35 min Core Measure Documentation - Palliative Care Palliative Care/ Comfort Measures: Not Applicable - Core Measures Any of the following diagnoses?: none Exam - Constitutional Vitals: Temp Pulse Resp BP Pulse Ox 94.5 F L 73 18 99/41 98 01/04/19 09:41 01/04/19 11:00 01/04/19 11:00 01/04/19 11:00 01/04/19 11:00 General appearance: Present: no acute distress, well-nourished, other (intubated tracheostomy) - EENT Eyes: Present: PERRL, EOM intact - Neck Neck: Present: supple, normal ROM - Respiratory Respiratory effort: normal Respiratory: bilateral: diminished, rhonchi, negative: rales, wheezing - Cardiovascular Rhythm: regular Heart Sounds: Present: S1 & S2 - Extremities Extremities: no ischemia Extremity abnormal: edema - Abdominal General gastrointestinal: Present: soft, non-tender, non-distended, normal bowel sounds, other (PEG tube in place) - Integumentary Integumentary: Present: clear, warm - Musculoskeletal Musculoskeletal: strength equal bilaterally - Psychiatric Psychiatric: other (intubated and noncommunicative) - Neurologic Neurologic: other (noncommunicative) Plan Activity: advance as tolerated Diet: other (Tube feeds per protocol) Additional Instructions: Patient is transferred to LTAC today Follow up with: PRIMARY CARE, [Primary Care Provider] - 3-5 Days
--- NOTE | 2019-01-04 12:16 | Progress Note ---
Assessment and Plan 88 y/o female with acute respiratory failure, altered mental state, presumptive acute renal failure and hypotension with thrombocytopenia and dirty urine analysis. 1. [facility]. CCT 31 minutes. Subjective Date of service: 01/04/19 Principal diagnosis: Rectal Bleed Interval history: Trached and pegged yesterday. Going to LTACH today. No family present. Objective Vital Signs - 12hr 01/04/19 01/04/19 01/04/19 01:00 02:00 02:46 Temperature 96.9 F L Pulse Rate 62 66 Pulse Rate [ Anterior Bilateral Throughout] Pulse Rate [ From Monitor] Pulse Rate [ 72 Throughout] Respiratory 18 18 Rate Respiratory Rate [Anterior Bilateral Throughout] Respiratory 18 Rate [ Throughout] Blood Pressure 129/44 122/67 O2 Sat by Pulse 100 99 Oximetry O2 Sat by Pulse Oximetry [ Assessment] 01/04/19 01/04/19 01/04/19 03:00 03:45 03:56 Temperature Pulse Rate 71 61 71 Pulse Rate [ Anterior Bilateral Throughout] Pulse Rate [ From Monitor] Pulse Rate [ Throughout] Respiratory 18 Rate Respiratory Rate [Anterior Bilateral Throughout] Respiratory Rate [ Throughout] Blood Pressure 137/48 118/39 O2 Sat by Pulse 100 100 Oximetry O2 Sat by Pulse Oximetry [ Assessment] 01/04/19 01/04/19 01/04/19 04:00 05:00 06:00 Temperature Pulse Rate 72 70 62 Pulse Rate [ Anterior Bilateral Throughout] Pulse Rate [ From Monitor] Pulse Rate [ Throughout] Respiratory 18 18 18 Rate Respiratory Rate [Anterior Bilateral Throughout] Respiratory Rate [ Throughout] Blood Pressure 118/39 124/49 125/50 O2 Sat by Pulse 100 97 99 Oximetry O2 Sat by Pulse Oximetry [ Assessment] 01/04/19 01/04/19 01/04/19 07:00 08:00 08:58 Temperature 94.5 F L Pulse Rate 65 61 78 Pulse Rate [ 68 Anterior Bilateral Throughout] Pulse Rate [ 64 From Monitor] Pulse Rate [ Throughout] Respiratory 18 18 Rate Respiratory 18 Rate [Anterior Bilateral Throughout] Respiratory Rate [ Throughout] Blood Pressure 128/46 129/48 87/37 O2 Sat by Pulse 97 99 100 Oximetry O2 Sat by Pulse 100 Oximetry [ Assessment] 01/04/19 01/04/19 01/04/19 09:00 09:41 10:00 Temperature 94.5 F L Pulse Rate 67 68 Pulse Rate [ Anterior Bilateral Throughout] Pulse Rate [ From Monitor] Pulse Rate [ Throughout] Respiratory 16 18 Rate Respiratory Rate [Anterior Bilateral Throughout] Respiratory Rate [ Throughout] Blood Pressure 87/37 113/41 O2 Sat by Pulse 98 99 Oximetry O2 Sat by Pulse Oximetry [ Assessment] 01/04/19 11:00 Temperature Pulse Rate 73 Pulse Rate [ Anterior Bilateral Throughout] Pulse Rate [ From Monitor] Pulse Rate [ Throughout] Respiratory 18 Rate Respiratory Rate [Anterior Bilateral Throughout] Respiratory Rate [ Throughout] Blood Pressure 99/41 O2 Sat by Pulse 98 Oximetry O2 Sat by Pulse Oximetry [ Assessment] Constitutional: no acute distress, comatose, other (on vent cmv) Eyes: non-icteric ENT: oropharynx moist, other (ETT in position, large/edematous tongue) Neck: supple Effort: normal Ascultation: Bilateral: clear, diminished breath sounds, other (coarse BS bilaterally) Cardiovascular: regular rate and rhythm, other (pacemaker rhythm) Gastrointestinal: normoactive bowel sounds, non-distended Integumentary: normal Extremities: no cyanosis, no edema, pink and warm Neurologic: pupils equal and round, other (comatose, flaccid extremities, does not track or follow commands, + Cough, Apnea on PSV) Psychiatric: other (unable to assess) CBC and BMP: 01/04/19 04:30 01/04/19 04:30 ABG, PT/INR, D-dimer: ABG POC ABG pH 7.325 (7.35-7.45) L 12/15/18 03:37 POC ABG pCO2 28.6 (35-45) L 12/15/18 03:37 POC ABG pO2 105 (80-105) 12/15/18 03:37 POC ABG HCO3 14.9 12/15/18 03:37 POC ABG Total CO2 16 12/15/18 03:37 POC ABG O2 Sat 98 12/15/18 03:37 PT/INR, D-dimer PT 20.2 Sec. (12.2-14.9) H 12/12/18 08:00 INR 1.61 (0.87-1.13) H 12/12/18 08:00 Abnormal lab findings: Abnormal Labs 12/08/18 12/08/18 12/08/18 12:58 13:40 13:40 WBC RBC Hgb Hct MCV MCH RDW Plt Count Lymph % (Auto) Branch % (Auto) Lymph # Seg Neutrophils % Seg Neuts % (Manual) Lymphocytes % (Manual) Monocytes % (Manual) Nucleated RBC % Seg Neutrophils # Seg Neutrophils # Man Lymphocytes # (Manual) Monocytes # (Manual) PT INR POC ABG pH POC ABG pCO2 POC ABG pO2 Sodium Potassium Chloride Carbon Dioxide BUN Creatinine Glucose POC Glucose 143 H Lactic Acid Calcium Phosphorus Magnesium Total Bilirubin AST Alkaline Phosphatase Total Creatine Kinase C-Reactive Protein Total Protein Albumin TSH Free T4 Urine WBC (Auto) 157.0 H Crossmatch See Detail 12/08/18 12/08/18 12/08/18 13:40 13:40 13:40 WBC RBC 3.06 L Hgb 6.8 L Hct 21.1 L MCV 69 L MCH 22 L RDW 16.2 H Plt Count 56 L Lymph % (Auto) Branch % (Auto) Lymph # Seg Neutrophils % Seg Neuts % (Manual) Lymphocytes % (Manual) 2.0 L Monocytes % (Manual) Nucleated RBC % Seg Neutrophils # Seg Neutrophils # Man Lymphocytes # (Manual) 0.2 L Monocytes # (Manual) PT INR POC ABG pH POC ABG pCO2 POC ABG pO2 Sodium Potassium 3.2 L Chloride Carbon Dioxide 18 L BUN 64 H Creatinine 1.5 H Glucose 145 H POC Glucose Lactic Acid 4.00 H* Calcium 7.7 L Phosphorus Magnesium Total Bilirubin AST Alkaline Phosphatase Total Creatine Kinase 258 H C-Reactive Protein Total Protein 4.6 L Albumin 1.8 L TSH Free T4 Urine WBC (Auto) Crossmatch 12/08/18 12/08/18 12/08/18 14:29 15:21 16:06 WBC RBC Hgb Hct MCV MCH RDW Plt Count Lymph % (Auto) Branch % (Auto) Lymph # Seg Neutrophils % Seg Neuts % (Manual) Lymphocytes % (Manual) Monocytes % (Manual) Nucleated RBC % Seg Neutrophils # Seg Neutrophils # Man Lymphocytes # (Manual) Monocytes # (Manual) PT 20.5 H INR 1.64 H POC ABG pH POC ABG pCO2 34.2 L POC ABG pO2 465 H Sodium Potassium Chloride Carbon Dioxide BUN Creatinine Glucose POC Glucose Lactic Acid 3.00 H* Calcium Phosphorus Magnesium Total Bilirubin AST Alkaline Phosphatase Total Creatine Kinase C-Reactive Protein Total Protein Albumin TSH Free T4 Urine WBC (Auto) Crossmatch 12/09/18 12/09/1819 02:31 05:36 05:36 WBC 14.5 H RBC Hgb Hct MCV 75 L MCH 25 L RDW 20.4 H Plt Count 68 L Lymph % (Auto) Branch % (Auto) Lymph # Seg Neutrophils % Seg Neuts % (Manual) 81.0 H Lymphocytes % (Manual) 1.0 L Monocytes % (Manual) Nucleated RBC % Seg Neutrophils # Seg Neutrophils # Man 11.7 H Lymphocytes # (Manual) 0.1 L Monocytes # (Manual) PT INR POC ABG pH POC ABG pCO2 POC ABG pO2 Sodium Potassium Chloride 107.6 H Carbon Dioxide 18 L BUN 75 H Creatinine 1.9 H Glucose 136 H POC Glucose 152 H Lactic Acid Calcium 7.9 L Phosphorus Magnesium Total Bilirubin 1.60 H AST 44 H Alkaline Phosphatase Total Creatine Kinase C-Reactive Protein Total Protein 5.2 L Albumin 2.4 L TSH Free T4 Urine WBC (Auto) Crossmatch 12/09/18 12/09/18 12/09/18 05:43 10:47 13:46 WBC RBC Hgb Hct MCV MCH RDW Plt Count Lymph % (Auto) Branch % (Auto) Lymph # Seg Neutrophils % Seg Neuts % (Manual) Lymphocytes % (Manual) Monocytes % (Manual) Nucleated RBC % Seg Neutrophils # Seg Neutrophils # Man Lymphocytes # (Manual) Monocytes # (Manual) PT INR POC ABG pH 7.308 L POC ABG pCO2 POC ABG pO2 183 H Sodium Potassium Chloride Carbon Dioxide BUN Creatinine Glucose POC Glucose 150 H 162 H Lactic Acid Calcium Phosphorus Magnesium Total Bilirubin AST Alkaline Phosphatase Total Creatine Kinase C-Reactive Protein Total Protein Albumin TSH Free T4 Urine WBC (Auto) Crossmatch 12/09/18 12/09/18 12/09/18 15:54 15:54 16:40 WBC RBC Hgb Hct MCV MCH RDW Plt Count Lymph % (Auto) Branch % (Auto) Lymph # Seg Neutrophils % Seg Neuts % (Manual) Lymphocytes % (Manual) Monocytes % (Manual) Nucleated RBC % Seg Neutrophils # Seg Neutrophils # Man Lymphocytes # (Manual) Monocytes # (Manual) PT INR POC ABG pH POC ABG pCO2 POC ABG pO2 Sodium Potassium Chloride Carbon Dioxide BUN Creatinine Glucose POC Glucose 197 H Lactic Acid Calcium Phosphorus Magnesium Total Bilirubin AST Alkaline Phosphatase Total Creatine Kinase C-Reactive Protein Total Protein Albumin TSH 0.268 L Free T4 0.58 L Urine WBC (Auto) Crossmatch 12/09/18 12/09/18 12/09/18 18:18 18:18 21:51 WBC RBC Hgb Hct MCV MCH RDW Plt Count Lymph % (Auto) Branch % (Auto) Lymph # Seg Neutrophils % Seg Neuts % (Manual) Lymphocytes % (Manual) Monocytes % (Manual) Nucleated RBC % Seg Neutrophils # Seg Neutrophils # Man Lymphocytes # (Manual) Monocytes # (Manual) PT INR POC ABG pH POC ABG pCO2 POC ABG pO2 Sodium Potassium Chloride 108.2 H Carbon Dioxide 16 L BUN 89 H Creatinine 2.3 H Glucose 180 H POC Glucose 198 H Lactic Acid Calcium 7.9 L Phosphorus Magnesium Total Bilirubin AST Alkaline Phosphatase Total Creatine Kinase C-Reactive Protein 19.60 H Total Protein Albumin TSH Free T4 Urine WBC (Auto) Crossmatch 12/10/18 12/10/18 12/10/18 01:59 04:14 04:38 WBC 11.5 H RBC Hgb Hct MCV 75 L MCH 25 L RDW 21.1 H Plt Count 81 L Lymph % (Auto) 5.6 L Branch % (Auto) Lymph # 0.6 L Seg Neutrophils % 89.8 H Seg Neuts % (Manual) Lymphocytes % (Manual) Monocytes % (Manual) Nucleated RBC % Seg Neutrophils # 10.3 H Seg Neutrophils # Man Lymphocytes # (Manual) Monocytes # (Manual) PT INR POC ABG pH 7.273 L POC ABG pCO2 32.1 L POC ABG pO2 161 H Sodium Potassium Chloride Carbon Dioxide BUN Creatinine Glucose POC Glucose 219 H Lactic Acid Calcium Phosphorus Magnesium Total Bilirubin AST Alkaline Phosphatase Total Creatine Kinase C-Reactive Protein Total Protein Albumin TSH Free T4 Urine WBC (Auto) Crossmatch 12/10/18 12/10/18 12/10/18 04:38 05:07 07:26 WBC RBC Hgb Hct MCV MCH RDW Plt Count Lymph % (Auto) Branch % (Auto) Lymph # Seg Neutrophils % Seg Neuts % (Manual) Lymphocytes % (Manual) Monocytes % (Manual) Nucleated RBC % Seg Neutrophils # Seg Neutrophils # Man Lymphocytes # (Manual) Monocytes # (Manual) PT INR POC ABG pH POC ABG pCO2 POC ABG pO2 Sodium Potassium Chloride 112.5 H Carbon Dioxide 14 L BUN 94 H Creatinine 2.4 H Glucose 207 H POC Glucose 221 H 212 H Lactic Acid Calcium 7.7 L Phosphorus Magnesium Total Bilirubin AST Alkaline Phosphatase Total Creatine Kinase C-Reactive Protein Total Protein Albumin TSH Free T4 Urine WBC (Auto) Crossmatch 12/10/18 12/10/18 12/10/18 10:40 11:15 14:21 WBC RBC Hgb Hct MCV MCH RDW Plt Count Lymph % (Auto) Branch % (Auto) Lymph # Seg Neutrophils % Seg Neuts % (Manual) Lymphocytes % (Manual) Monocytes % (Manual) Nucleated RBC % Seg Neutrophils # Seg Neutrophils # Man Lymphocytes # (Manual) Monocytes # (Manual) PT 21.4 H INR 1.73 H POC ABG pH 7.214 L POC ABG pCO2 32.8 L POC ABG pO2 Sodium Potassium Chloride Carbon Dioxide BUN Creatinine Glucose POC Glucose 227 H Lactic Acid Calcium Phosphorus Magnesium Total Bilirubin AST Alkaline Phosphatase Total Creatine Kinase C-Reactive Protein Total Protein Albumin TSH Free T4 Urine WBC (Auto) Crossmatch 12/10/18 12/10/18 12/11/18 15:47 22:38 03:36 WBC RBC Hgb Hct MCV MCH RDW Plt Count Lymph % (Auto) Branch % (Auto) Lymph # Seg Neutrophils % Seg Neuts % (Manual) Lymphocytes % (Manual) Monocytes % (Manual) Nucleated RBC % Seg Neutrophils # Seg Neutrophils # Man Lymphocytes # (Manual) Monocytes # (Manual) PT INR POC ABG pH POC ABG pCO2 26.2 L POC ABG pO2 138 H Sodium Potassium Chloride Carbon Dioxide BUN Creatinine Glucose POC Glucose 202 H 259 H Lactic Acid Calcium Phosphorus Magnesium Total Bilirubin AST Alkaline Phosphatase Total Creatine Kinase C-Reactive Protein Total Protein Albumin TSH Free T4 Urine WBC (Auto) Crossmatch 12/11/18 12/11/18 12/11/18 04:12 05:00 06:19 WBC RBC Hgb Hct MCV MCH RDW Plt Count Lymph % (Auto) Branch % (Auto) Lymph # Seg Neutrophils % Seg Neuts % (Manual) Lymphocytes % (Manual) Monocytes % (Manual) Nucleated RBC % Seg Neutrophils # Seg Neutrophils # Man Lymphocytes # (Manual) Monocytes # (Manual) PT 19.5 H INR 1.54 H POC ABG pH POC ABG pCO2 24.6 L POC ABG pO2 119 H Sodium Potassium Chloride Carbon Dioxide BUN Creatinine Glucose POC Glucose 174 H Lactic Acid Calcium Phosphorus Magnesium Total Bilirubin AST Alkaline Phosphatase Total Creatine Kinase C-Reactive Protein Total Protein Albumin TSH Free T4 Urine WBC (Auto) Crossmatch 12/11/18 12/11/18 12/11/18 11:10 11:10 18:10 WBC 14.3 H RBC Hgb Hct MCV 73 L MCH 24 L RDW 21.5 H Plt Count Lymph % (Auto) Branch % (Auto) Lymph # Seg Neutrophils % Seg Neuts % (Manual) Lymphocytes % (Manual) Monocytes % (Manual) Nucleated RBC % Seg Neutrophils # Seg Neutrophils # Man Lymphocytes # (Manual) Monocytes # (Manual) PT INR POC ABG pH POC ABG pCO2 POC ABG pO2 Sodium Potassium Chloride 110.5 H Carbon Dioxide 15 L BUN 101 H Creatinine 2.4 H Glucose 119 H POC Glucose 147 H Lactic Acid Calcium 7.7 L Phosphorus Magnesium Total Bilirubin AST Alkaline Phosphatase Total Creatine Kinase C-Reactive Protein Total Protein Albumin TSH Free T4 Urine WBC (Auto) Crossmatch 12/11/18 12/12/18 12/12/18 23:25 05:37 06:03 WBC RBC Hgb Hct MCV MCH RDW Plt Count Lymph % (Auto) Branch % (Auto) Lymph # Seg Neutrophils % Seg Neuts % (Manual) Lymphocytes % (Manual) Monocytes % (Manual) Nucleated RBC % Seg Neutrophils # Seg Neutrophils # Man Lymphocytes # (Manual) Monocytes # (Manual) PT INR POC ABG pH 7.346 L POC ABG pCO2 28.3 L POC ABG pO2 120 H Sodium Potassium Chloride Carbon Dioxide BUN Creatinine Glucose POC Glucose 143 H 154 H Lactic Acid Calcium Phosphorus Magnesium Total Bilirubin AST Alkaline Phosphatase Total Creatine Kinase C-Reactive Protein Total Protein Albumin TSH Free T4 Urine WBC (Auto) Crossmatch 12/12/18 12/12/18 12/12/18 08:00 08:00 08:00 WBC 16.2 H RBC Hgb Hct MCV 74 L MCH 25 L RDW 21.9 H Plt Count 21 L Lymph % (Auto) Branch % (Auto) Lymph # Seg Neutrophils % Seg Neuts % (Manual) Lymphocytes % (Manual) Monocytes % (Manual) Nucleated RBC % Seg Neutrophils # Seg Neutrophils # Man Lymphocytes # (Manual) Monocytes # (Manual) PT 20.2 H INR 1.61 H POC ABG pH POC ABG pCO2 POC ABG pO2 Sodium Potassium Chloride 107.4 H Carbon Dioxide 16 L BUN 101 H Creatinine 2.3 H Glucose 169 H POC Glucose Lactic Acid Calcium 8.2 L Phosphorus Magnesium Total Bilirubin AST Alkaline Phosphatase Total Creatine Kinase C-Reactive Protein Total Protein Albumin TSH Free T4 Urine WBC (Auto) Crossmatch 12/12/18 12/12/18 12/13/18 12:59 18:01 04:28 WBC 18.6 H RBC Hgb Hct MCV 74 L MCH 24 L RDW 21.8 H Plt Count 34 L Lymph % (Auto) Branch % (Auto) Lymph # Seg Neutrophils % Seg Neuts % (Manual) 97.0 H Lymphocytes % (Manual) 2.0 L Monocytes % (Manual) Nucleated RBC % 1.0 H Seg Neutrophils # Seg Neutrophils # Man 18.0 H Lymphocytes # (Manual) 0.4 L Monocytes # (Manual) PT INR POC ABG pH POC ABG pCO2 POC ABG pO2 Sodium Potassium Chloride Carbon Dioxide BUN Creatinine Glucose POC Glucose 158 H 123 H Lactic Acid Calcium Phosphorus Magnesium Total Bilirubin AST Alkaline Phosphatase Total Creatine Kinase C-Reactive Protein Total Protein Albumin TSH Free T4 Urine WBC (Auto) Crossmatch 12/13/18 12/13/18 12/13/18 04:28 04:45 19:17 WBC RBC Hgb Hct MCV MCH RDW Plt Count Lymph % (Auto) Branch % (Auto) Lymph # Seg Neutrophils % Seg Neuts % (Manual) Lymphocytes % (Manual) Monocytes % (Manual) Nucleated RBC % Seg Neutrophils # Seg Neutrophils # Man Lymphocytes # (Manual) Monocytes # (Manual) PT INR POC ABG pH 7.327 L POC ABG pCO2 31.1 L POC ABG pO2 136 H Sodium Potassium Chloride 112.0 H Carbon Dioxide 17 L BUN 97 H Creatinine 2.2 H Glucose POC Glucose 106 H Lactic Acid Calcium 8.1 L Phosphorus Magnesium Total Bilirubin AST Alkaline Phosphatase Total Creatine Kinase C-Reactive Protein Total Protein Albumin TSH Free T4 Urine WBC (Auto) Crossmatch 12/13/18 12/14/18 12/14/18 23:24 03:35 03:35 WBC 22.0 H RBC Hgb Hct MCV 75 L MCH 24 L RDW 22.2 H Plt Count 44 L Lymph % (Auto) Branch % (Auto) Lymph # Seg Neutrophils % Seg Neuts % (Manual) 96.0 H Lymphocytes % (Manual) 3.0 L Monocytes % (Manual) Nucleated RBC % Seg Neutrophils # Seg Neutrophils # Man 21.1 H Lymphocytes # (Manual) 0.7 L Monocytes # (Manual) PT INR POC ABG pH POC ABG pCO2 POC ABG pO2 Sodium 136 L Potassium Chloride 107.2 H Carbon Dioxide 15 L BUN 87 H Creatinine 1.7 H Glucose 156 H POC Glucose 108 H Lactic Acid Calcium 7.7 L Phosphorus Magnesium Total Bilirubin AST Alkaline Phosphatase Total Creatine Kinase C-Reactive Protein Total Protein Albumin TSH Free T4 Urine WBC (Auto) Crossmatch 12/14/18 12/14/18 12/14/18 04:58 05:37 12:10 WBC RBC Hgb Hct MCV MCH RDW Plt Count Lymph % (Auto) Branch % (Auto) Lymph # Seg Neutrophils % Seg Neuts % (Manual) Lymphocytes % (Manual) Monocytes % (Manual) Nucleated RBC % Seg Neutrophils # Seg Neutrophils # Man Lymphocytes # (Manual) Monocytes # (Manual) PT INR POC ABG pH 7.301 L POC ABG pCO2 32.6 L POC ABG pO2 138 H Sodium Potassium Chloride Carbon Dioxide BUN Creatinine Glucose POC Glucose 178 H 208 H Lactic Acid Calcium Phosphorus Magnesium Total Bilirubin AST Alkaline Phosphatase Total Creatine Kinase C-Reactive Protein Total Protein Albumin TSH Free T4 Urine WBC (Auto) Crossmatch 12/14/18 12/14/18 12/15/18 17:44 23:16 03:37 WBC RBC Hgb Hct MCV MCH RDW Plt Count Lymph % (Auto) Branch % (Auto) Lymph # Seg Neutrophils % Seg Neuts % (Manual) Lymphocytes % (Manual) Monocytes % (Manual) Nucleated RBC % Seg Neutrophils # Seg Neutrophils # Man Lymphocytes # (Manual) Monocytes # (Manual) PT INR POC ABG pH 7.325 L POC ABG pCO2 28.6 L POC ABG pO2 Sodium Potassium Chloride Carbon Dioxide BUN Creatinine Glucose POC Glucose 172 H 123 H Lactic Acid Calcium Phosphorus Magnesium Total Bilirubin AST Alkaline Phosphatase Total Creatine Kinase C-Reactive Protein Total Protein Albumin TSH Free T4 Urine WBC (Auto) Crossmatch 12/15/18 12/15/18 12/15/18 05:30 05:30 05:43 WBC 20.1 H RBC Hgb 9.5 L Hct 29.2 L MCV 74 L MCH 24 L RDW 22.7 H Plt Count 48 L Lymph % (Auto) Branch % (Auto) Lymph # Seg Neutrophils % Seg Neuts % (Manual) 96.0 H Lymphocytes % (Manual) 1.0 L Monocytes % (Manual) Nucleated RBC % Seg Neutrophils # Seg Neutrophils # Man 19.3 H Lymphocytes # (Manual) 0.2 L Monocytes # (Manual) PT INR POC ABG pH POC ABG pCO2 POC ABG pO2 Sodium Potassium Chloride 110.8 H Carbon Dioxide 17 L BUN 83 H Creatinine 1.6 H Glucose 150 H POC Glucose 151 H Lactic Acid Calcium 7.7 L Phosphorus Magnesium Total Bilirubin AST Alkaline Phosphatase Total Creatine Kinase C-Reactive Protein Total Protein Albumin TSH Free T4 Urine WBC (Auto) Crossmatch 12/15/18 12/15/18 12/16/18 12:56 18:21 00:10 WBC RBC Hgb Hct MCV MCH RDW Plt Count Lymph % (Auto) Branch % (Auto) Lymph # Seg Neutrophils % Seg Neuts % (Manual) Lymphocytes % (Manual) Monocytes % (Manual) Nucleated RBC % Seg Neutrophils # Seg Neutrophils # Man Lymphocytes # (Manual) Monocytes # (Manual) PT INR POC ABG pH POC ABG pCO2 POC ABG pO2 Sodium Potassium Chloride Carbon Dioxide BUN Creatinine Glucose POC Glucose 190 H 143 H 174 H Lactic Acid Calcium Phosphorus Magnesium Total Bilirubin AST Alkaline Phosphatase Total Creatine Kinase C-Reactive Protein Total Protein Albumin TSH Free T4 Urine WBC (Auto) Crossmatch 12/16/18 12/16/18 12/16/18 05:24 05:30 05:30 WBC 17.1 H RBC Hgb 9.1 L Hct 28.8 L MCV 76 L MCH 24 L RDW 23.5 H Plt Count 37 L Lymph % (Auto) Branch % (Auto) Lymph # Seg Neutrophils % Seg Neuts % (Manual) Lymphocytes % (Manual) 9.0 L Monocytes % (Manual) 9.0 H Nucleated RBC % Seg Neutrophils # Seg Neutrophils # Man 9.6 H Lymphocytes # (Manual) Monocytes # (Manual) 1.5 H PT INR POC ABG pH POC ABG pCO2 POC ABG pO2 Sodium Potassium Chloride 110.8 H Carbon Dioxide 15 L BUN 81 H Creatinine 1.6 H Glucose 161 H POC Glucose 154 H Lactic Acid Calcium 7.6 L Phosphorus Magnesium Total Bilirubin AST Alkaline Phosphatase Total Creatine Kinase C-Reactive Protein Total Protein Albumin TSH Free T4 Urine WBC (Auto) Crossmatch 12/16/18 12/16/18 12/16/18 12:31 17:42 21:56 WBC RBC Hgb Hct MCV MCH RDW Plt Count Lymph % (Auto) Branch % (Auto) Lymph # Seg Neutrophils % Seg Neuts % (Manual) Lymphocytes % (Manual) Monocytes % (Manual) Nucleated RBC % Seg Neutrophils # Seg Neutrophils # Man Lymphocytes # (Manual) Monocytes # (Manual) PT INR POC ABG pH POC ABG pCO2 POC ABG pO2 Sodium Potassium Chloride Carbon Dioxide BUN Creatinine Glucose POC Glucose 172 H 173 H 118 H Lactic Acid Calcium Phosphorus Magnesium Total Bilirubin AST Alkaline Phosphatase Total Creatine Kinase C-Reactive Protein Total Protein Albumin TSH Free T4 Urine WBC (Auto) Crossmatch 12/16/18 12/17/18 12/17/18 23:38 04:24 04:24 WBC 19.2 H RBC Hgb 9.5 L Hct 29.7 L MCV 76 L MCH 24 L RDW 24.4 H Plt Count 26 L Lymph % (Auto) Branch % (Auto) Lymph # Seg Neutrophils % Seg Neuts % (Manual) Lymphocytes % (Manual) 6.0 L Monocytes % (Manual) Nucleated RBC % Seg Neutrophils # Seg Neutrophils # Man 13.1 H Lymphocytes # (Manual) Monocytes # (Manual) PT INR POC ABG pH POC ABG pCO2 POC ABG pO2 Sodium 134 L Potassium Chloride 110.0 H Carbon Dioxide 14 L BUN 83 H Creatinine 1.6 H Glucose POC Glucose 109 H Lactic Acid Calcium 7.8 L Phosphorus Magnesium Total Bilirubin AST Alkaline Phosphatase Total Creatine Kinase C-Reactive Protein Total Protein Albumin TSH Free T4 Urine WBC (Auto) Crossmatch 12/17/18 12/17/18 12/18/18 06:42 17:49 00:40 WBC RBC Hgb Hct MCV MCH RDW Plt Count Lymph % (Auto) Branch % (Auto) Lymph # Seg Neutrophils % Seg Neuts % (Manual) Lymphocytes % (Manual) Monocytes % (Manual) Nucleated RBC % Seg Neutrophils # Seg Neutrophils # Man Lymphocytes # (Manual) Monocytes # (Manual) PT INR POC ABG pH POC ABG pCO2 POC ABG pO2 Sodium Potassium Chloride 113.1 H Carbon Dioxide 13 L BUN 82 H Creatinine 1.6 H Glucose POC Glucose 66 L 109 H Lactic Acid Calcium 8.0 L Phosphorus Magnesium Total Bilirubin AST Alkaline Phosphatase Total Creatine Kinase C-Reactive Protein Total Protein Albumin TSH Free T4 Urine WBC (Auto) Crossmatch 12/18/18 12/18/18 12/18/18 04:08 04:08 12:45 WBC 26.5 H RBC 3.63 L Hgb 8.7 L Hct 26.8 L MCV 74 L MCH 24 L RDW 23.3 H Plt Count 24 L Lymph % (Auto) Branch % (Auto) Lymph # Seg Neutrophils % Seg Neuts % (Manual) Lymphocytes % (Manual) Monocytes % (Manual) Nucleated RBC % Seg Neutrophils # Seg Neutrophils # Man Lymphocytes # (Manual) Monocytes # (Manual) PT INR POC ABG pH POC ABG pCO2 POC ABG pO2 Sodium Potassium Chloride 114.3 H Carbon Dioxide 16 L BUN 82 H Creatinine 1.7 H Glucose POC Glucose 117 H Lactic Acid Calcium 7.8 L Phosphorus 5.10 H Magnesium Total Bilirubin AST Alkaline Phosphatase Total Creatine Kinase C-Reactive Protein Total Protein Albumin TSH Free T4 Urine WBC (Auto) Crossmatch 12/18/18 12/18/18 12/19/18 17:42 23:39 04:22 WBC 20.4 H RBC 3.01 L Hgb 7.2 L Hct 22.6 L MCV 75 L MCH 24 L RDW 24.5 H Plt Count 52 L D Lymph % (Auto) Branch % (Auto) Lymph # Seg Neutrophils % Seg Neuts % (Manual) Lymphocytes % (Manual) Monocytes % (Manual) Nucleated RBC % Seg Neutrophils # Seg Neutrophils # Man Lymphocytes # (Manual) Monocytes # (Manual) PT INR POC ABG pH POC ABG pCO2 POC ABG pO2 Sodium Potassium Chloride Carbon Dioxide BUN Creatinine Glucose POC Glucose 121 H 184 H Lactic Acid Calcium Phosphorus Magnesium Total Bilirubin AST Alkaline Phosphatase Total Creatine Kinase C-Reactive Protein Total Protein Albumin TSH Free T4 Urine WBC (Auto) Crossmatch 12/19/18 12/19/18 12/19/18 04:22 12:43 18:12 WBC RBC Hgb Hct MCV MCH RDW Plt Count Lymph % (Auto) Branch % (Auto) Lymph # Seg Neutrophils % Seg Neuts % (Manual) Lymphocytes % (Manual) Monocytes % (Manual) Nucleated RBC % Seg Neutrophils # Seg Neutrophils # Man Lymphocytes # (Manual) Monocytes # (Manual) PT INR POC ABG pH POC ABG pCO2 POC ABG pO2 Sodium Potassium Chloride 112.9 H Carbon Dioxide 15 L BUN 76 H Creatinine 1.8 H Glucose 107 H POC Glucose 141 H 227 H Lactic Acid Calcium 7.4 L Phosphorus Magnesium Total Bilirubin AST Alkaline Phosphatase Total Creatine Kinase C-Reactive Protein Total Protein Albumin TSH Free T4 Urine WBC (Auto) Crossmatch 12/19/18 12/19/18 12/20/18 23:55 Unknown 03:07 WBC 15.7 H RBC 2.92 L Hgb 7.2 L 7.1 L Hct 22.2 L 21.6 L MCV 74 L MCH 24 L RDW 24.3 H Plt Count 23 L Lymph % (Auto) Branch % (Auto) Lymph # Seg Neutrophils % Seg Neuts % (Manual) Lymphocytes % (Manual) Monocytes % (Manual) Nucleated RBC % Seg Neutrophils # Seg Neutrophils # Man Lymphocytes # (Manual) Monocytes # (Manual) PT INR POC ABG pH POC ABG pCO2 POC ABG pO2 Sodium Potassium Chloride Carbon Dioxide BUN Creatinine Glucose POC Glucose 174 H Lactic Acid Calcium Phosphorus Magnesium Total Bilirubin AST Alkaline Phosphatase Total Creatine Kinase C-Reactive Protein Total Protein Albumin TSH Free T4 Urine WBC (Auto) Crossmatch 12/20/18 12/20/18 12/20/18 03:07 05:20 11:00 WBC RBC Hgb Hct MCV MCH RDW Plt Count Lymph % (Auto) Branch % (Auto) Lymph # Seg Neutrophils % Seg Neuts % (Manual) Lymphocytes % (Manual) Monocytes % (Manual) Nucleated RBC % Seg Neutrophils # Seg Neutrophils # Man Lymphocytes # (Manual) Monocytes # (Manual) PT INR POC ABG pH POC ABG pCO2 POC ABG pO2 Sodium 136 L Potassium Chloride Carbon Dioxide 20 L BUN 79 H Creatinine 2.1 H Glucose 141 H POC Glucose 210 H Lactic Acid Calcium 7.5 L Phosphorus Magnesium Total Bilirubin AST Alkaline Phosphatase Total Creatine Kinase C-Reactive Protein Total Protein Albumin TSH Free T4 Urine WBC (Auto) Crossmatch See Detail 12/20/18 12/20/18 12/21/18 11:40 17:51 00:33 WBC RBC Hgb Hct MCV MCH RDW Plt Count Lymph % (Auto) Branch % (Auto) Lymph # Seg Neutrophils % Seg Neuts % (Manual) Lymphocytes % (Manual) Monocytes % (Manual) Nucleated RBC % Seg Neutrophils # Seg Neutrophils # Man Lymphocytes # (Manual) Monocytes # (Manual) PT INR POC ABG pH POC ABG pCO2 POC ABG pO2 Sodium Potassium Chloride Carbon Dioxide BUN Creatinine Glucose POC Glucose 183 H 150 H 119 H Lactic Acid Calcium Phosphorus Magnesium Total Bilirubin AST Alkaline Phosphatase Total Creatine Kinase C-Reactive Protein Total Protein Albumin TSH Free T4 Urine WBC (Auto) Crossmatch 12/21/18 12/21/18 12/21/18 05:05 07:19 07:19 WBC 11.9 H RBC 2.83 L Hgb 6.9 L Hct 20.7 L MCV 73 L MCH 24 L RDW 23.9 H Plt Count 11 L* Lymph % (Auto) Branch % (Auto) Lymph # Seg Neutrophils % Seg Neuts % (Manual) Lymphocytes % (Manual) Monocytes % (Manual) Nucleated RBC % Seg Neutrophils # Seg Neutrophils # Man Lymphocytes # (Manual) Monocytes # (Manual) PT INR POC ABG pH POC ABG pCO2 POC ABG pO2 Sodium 135 L Potassium Chloride Carbon Dioxide 21 L BUN 78 H Creatinine 2.3 H Glucose 143 H POC Glucose 165 H Lactic Acid Calcium 7.3 L Phosphorus Magnesium Total Bilirubin AST Alkaline Phosphatase Total Creatine Kinase C-Reactive Protein Total Protein Albumin TSH Free T4 Urine WBC (Auto) Crossmatch 12/21/18 12/21/18 12/21/18 11:55 17:39 18:00 WBC RBC Hgb 7.9 L Hct 23.8 L MCV MCH RDW Plt Count Lymph % (Auto) Branch % (Auto) Lymph # Seg Neutrophils % Seg Neuts % (Manual) Lymphocytes % (Manual) Monocytes % (Manual) Nucleated RBC % Seg Neutrophils # Seg Neutrophils # Man Lymphocytes # (Manual) Monocytes # (Manual) PT INR POC ABG pH POC ABG pCO2 POC ABG pO2 Sodium Potassium Chloride Carbon Dioxide BUN Creatinine Glucose POC Glucose 125 H 108 H Lactic Acid Calcium Phosphorus Magnesium Total Bilirubin AST Alkaline Phosphatase Total Creatine Kinase C-Reactive Protein Total Protein Albumin TSH Free T4 Urine WBC (Auto) Crossmatch 12/21/18 12/22/18 12/22/18 23:55 05:35 05:35 WBC 11.8 H RBC Hgb 9.4 L Hct 28.3 L MCV 76 L MCH 25 L RDW 24.5 H Plt Count 26 L D Lymph % (Auto) Branch % (Auto) Lymph # Seg Neutrophils % Seg Neuts % (Manual) Lymphocytes % (Manual) Monocytes % (Manual) Nucleated RBC % Seg Neutrophils # Seg Neutrophils # Man Lymphocytes # (Manual) Monocytes # (Manual) PT INR POC ABG pH POC ABG pCO2 POC ABG pO2 Sodium 132 L Potassium Chloride Carbon Dioxide 21 L BUN 79 H Creatinine 2.3 H Glucose 131 H POC Glucose 126 H Lactic Acid Calcium 7.4 L Phosphorus Magnesium Total Bilirubin AST Alkaline Phosphatase Total Creatine Kinase C-Reactive Protein Total Protein Albumin TSH Free T4 Urine WBC (Auto) Crossmatch 12/22/18 12/22/18 12/22/18 06:34 11:39 17:29 WBC RBC Hgb Hct MCV MCH RDW Plt Count Lymph % (Auto) Branch % (Auto) Lymph # Seg Neutrophils % Seg Neuts % (Manual) Lymphocytes % (Manual) Monocytes % (Manual) Nucleated RBC % Seg Neutrophils # Seg Neutrophils # Man Lymphocytes # (Manual) Monocytes # (Manual) PT INR POC ABG pH POC ABG pCO2 POC ABG pO2 Sodium Potassium Chloride Carbon Dioxide BUN Creatinine Glucose POC Glucose 126 H 176 H 180 H Lactic Acid Calcium Phosphorus Magnesium Total Bilirubin AST Alkaline Phosphatase Total Creatine Kinase C-Reactive Protein Total Protein Albumin TSH Free T4 Urine WBC (Auto) Crossmatch 12/22/18 12/23/18 12/23/18 23:19 05:56 08:50 WBC RBC Hgb Hct MCV MCH RDW Plt Count Lymph % (Auto) Branch % (Auto) Lymph # Seg Neutrophils % Seg Neuts % (Manual) Lymphocytes % (Manual) Monocytes % (Manual) Nucleated RBC % Seg Neutrophils # Seg Neutrophils # Man Lymphocytes # (Manual) Monocytes # (Manual) PT INR POC ABG pH POC ABG pCO2 POC ABG pO2 Sodium 134 L Potassium Chloride Carbon Dioxide BUN 80 H Creatinine 2.4 H Glucose 133 H POC Glucose 135 H 174 H Lactic Acid Calcium 7.0 L Phosphorus Magnesium Total Bilirubin AST Alkaline Phosphatase Total Creatine Kinase C-Reactive Protein Total Protein Albumin TSH Free T4 Urine WBC (Auto) Crossmatch 12/23/18 12/23/18 12/24/18 08:50 11:18 00:18 WBC RBC 3.29 L Hgb 8.5 L Hct 24.9 L MCV 76 L MCH 26 L RDW 24.9 H Plt Count 7 L* Lymph % (Auto) Branch % (Auto) Lymph # Seg Neutrophils % Seg Neuts % (Manual) Lymphocytes % (Manual) Monocytes % (Manual) Nucleated RBC % Seg Neutrophils # Seg Neutrophils # Man Lymphocytes # (Manual) Monocytes # (Manual) PT INR POC ABG pH POC ABG pCO2 POC ABG pO2 Sodium Potassium Chloride Carbon Dioxide BUN Creatinine Glucose POC Glucose 164 H 64 L Lactic Acid Calcium Phosphorus Magnesium Total Bilirubin AST Alkaline Phosphatase Total Creatine Kinase C-Reactive Protein Total Protein Albumin TSH Free T4 Urine WBC (Auto) Crossmatch 12/24/18 12/24/18 12/24/18 00:56 06:00 06:00 WBC RBC Hgb 9.7 L Hct 29.1 L MCV 76 L MCH 25 L RDW 24.9 H Plt Count 30 L D Lymph % (Auto) Branch % (Auto) Lymph # Seg Neutrophils % Seg Neuts % (Manual) 86.0 H Lymphocytes % (Manual) 0 L Monocytes % (Manual) Nucleated RBC % Seg Neutrophils # Seg Neutrophils # Man 9.1 H Lymphocytes # (Manual) 0.0 L Monocytes # (Manual) PT INR POC ABG pH POC ABG pCO2 POC ABG pO2 Sodium 132 L Potassium Chloride Carbon Dioxide BUN 79 H Creatinine 2.4 H Glucose 117 H POC Glucose 162 H Lactic Acid Calcium 7.5 L Phosphorus Magnesium Total Bilirubin AST 48 H Alkaline Phosphatase 252 H Total Creatine Kinase C-Reactive Protein Total Protein 5.5 L Albumin 1.6 L TSH Free T4 Urine WBC (Auto) Crossmatch 12/24/18 12/24/18 12/24/18 06:00 12:03 18:45 WBC RBC Hgb Hct MCV MCH RDW Plt Count Lymph % (Auto) Branch % (Auto) Lymph # Seg Neutrophils % Seg Neuts % (Manual) Lymphocytes % (Manual) Monocytes % (Manual) Nucleated RBC % Seg Neutrophils # Seg Neutrophils # Man Lymphocytes # (Manual) Monocytes # (Manual) PT INR POC ABG pH POC ABG pCO2 POC ABG pO2 Sodium Potassium Chloride Carbon Dioxide BUN Creatinine Glucose POC Glucose 153 H 133 H Lactic Acid Calcium Phosphorus 6.60 H Magnesium 2.40 H Total Bilirubin AST Alkaline Phosphatase Total Creatine Kinase C-Reactive Protein Total Protein Albumin TSH Free T4 Urine WBC (Auto) Crossmatch 12/24/18 12/25/18 12/25/18 23:08 06:36 12:05 WBC RBC Hgb Hct MCV MCH RDW Plt Count Lymph % (Auto) Branch % (Auto) Lymph # Seg Neutrophils % Seg Neuts % (Manual) Lymphocytes % (Manual) Monocytes % (Manual) Nucleated RBC % Seg Neutrophils # Seg Neutrophils # Man Lymphocytes # (Manual) Monocytes # (Manual) PT INR POC ABG pH POC ABG pCO2 POC ABG pO2 Sodium Potassium Chloride Carbon Dioxide BUN Creatinine Glucose POC Glucose 125 H 176 H 161 H Lactic Acid Calcium Phosphorus Magnesium Total Bilirubin AST Alkaline Phosphatase Total Creatine Kinase C-Reactive Protein Total Protein Albumin TSH Free T4 Urine WBC (Auto) Crossmatch 12/25/18 12/26/18 12/26/18 18:33 00:07 05:09 WBC RBC Hgb Hct MCV MCH RDW Plt Count Lymph % (Auto) Branch % (Auto) Lymph # Seg Neutrophils % Seg Neuts % (Manual) Lymphocytes % (Manual) Monocytes % (Manual) Nucleated RBC % Seg Neutrophils # Seg Neutrophils # Man Lymphocytes # (Manual) Monocytes # (Manual) PT INR POC ABG pH POC ABG pCO2 POC ABG pO2 Sodium Potassium Chloride Carbon Dioxide BUN Creatinine Glucose POC Glucose 237 H 178 H 171 H Lactic Acid Calcium Phosphorus Magnesium Total Bilirubin AST Alkaline Phosphatase Total Creatine Kinase C-Reactive Protein Total Protein Albumin TSH Free T4 Urine WBC (Auto) Crossmatch 12/26/18 12/26/18 12/26/18 11:27 17:52 23:39 WBC RBC Hgb Hct MCV MCH RDW Plt Count Lymph % (Auto) Branch % (Auto) Lymph # Seg Neutrophils % Seg Neuts % (Manual) Lymphocytes % (Manual) Monocytes % (Manual) Nucleated RBC % Seg Neutrophils # Seg Neutrophils # Man Lymphocytes # (Manual) Monocytes # (Manual) PT INR POC ABG pH POC ABG pCO2 POC ABG pO2 Sodium Potassium Chloride Carbon Dioxide BUN Creatinine Glucose POC Glucose 205 H 166 H 122 H Lactic Acid Calcium Phosphorus Magnesium Total Bilirubin AST Alkaline Phosphatase Total Creatine Kinase C-Reactive Protein Total Protein Albumin TSH Free T4 Urine WBC (Auto) Crossmatch 12/27/18 12/27/18 12/27/18 06:21 14:29 16:20 WBC RBC 3.01 L Hgb 7.6 L Hct 23.0 L MCV 76 L MCH 25 L RDW 24.4 H Plt Count 28 L Lymph % (Auto) 8.9 L Branch % (Auto) 7.4 H Lymph # 0.6 L Seg Neutrophils % 83.4 H Seg Neuts % (Manual) Lymphocytes % (Manual) Monocytes % (Manual) Nucleated RBC % Seg Neutrophils # Seg Neutrophils # Man Lymphocytes # (Manual) Monocytes # (Manual) PT INR POC ABG pH POC ABG pCO2 POC ABG pO2 Sodium Potassium Chloride Carbon Dioxide BUN Creatinine Glucose POC Glucose 174 H 197 H Lactic Acid Calcium Phosphorus Magnesium Total Bilirubin AST Alkaline Phosphatase Total Creatine Kinase C-Reactive Protein Total Protein Albumin TSH Free T4 Urine WBC (Auto) Crossmatch 12/27/18 12/27/18 12/27/18 16:20 17:42 20:16 WBC RBC Hgb Hct MCV MCH RDW Plt Count Lymph % (Auto) Branch % (Auto) Lymph # Seg Neutrophils % Seg Neuts % (Manual) Lymphocytes % (Manual) Monocytes % (Manual) Nucleated RBC % Seg Neutrophils # Seg Neutrophils # Man Lymphocytes # (Manual) Monocytes # (Manual) PT INR POC ABG pH POC ABG pCO2 POC ABG pO2 Sodium Potassium Chloride Carbon Dioxide 21 L BUN 106 H Creatinine 3.0 H Glucose 184 H POC Glucose 211 H Lactic Acid Calcium 6.8 L Phosphorus Magnesium Total Bilirubin AST Alkaline Phosphatase Total Creatine Kinase C-Reactive Protein Total Protein Albumin TSH Free T4 Urine WBC (Auto) Crossmatch See Detail 12/28/18 12/28/18 12/28/18 00:39 01:03 06:42 WBC RBC Hgb 8.2 L Hct 24.6 L MCV MCH RDW Plt Count Lymph % (Auto) Branch % (Auto) Lymph # Seg Neutrophils % Seg Neuts % (Manual) Lymphocytes % (Manual) Monocytes % (Manual) Nucleated RBC % Seg Neutrophils # Seg Neutrophils # Man Lymphocytes # (Manual) Monocytes # (Manual) PT INR POC ABG pH POC ABG pCO2 POC ABG pO2 Sodium Potassium Chloride Carbon Dioxide BUN Creatinine Glucose POC Glucose 135 H 160 H Lactic Acid Calcium Phosphorus Magnesium Total Bilirubin AST Alkaline Phosphatase Total Creatine Kinase C-Reactive Protein Total Protein Albumin TSH Free T4 Urine WBC (Auto) Crossmatch 12/28/18 12/28/18 12/28/18 07:30 07:30 11:33 WBC RBC 3.43 L Hgb 9.3 L Hct 27.5 L MCV MCH 27 L RDW 24.0 H Plt Count 34 L Lymph % (Auto) Branch % (Auto) Lymph # Seg Neutrophils % 86.0 H Seg Neuts % (Manual) 88.0 H Lymphocytes % (Manual) 6.0 L Monocytes % (Manual) Nucleated RBC % Seg Neutrophils # Seg Neutrophils # Man Lymphocytes # (Manual) 0.4 L Monocytes # (Manual) PT INR POC ABG pH POC ABG pCO2 POC ABG pO2 Sodium Potassium Chloride Carbon Dioxide 20 L BUN 101 H Creatinine 2.8 H Glucose 155 H POC Glucose 171 H Lactic Acid Calcium 6.5 L Phosphorus 7.40 H Magnesium Total Bilirubin AST Alkaline Phosphatase Total Creatine Kinase C-Reactive Protein Total Protein Albumin TSH Free T4 Urine WBC (Auto) Crossmatch 12/28/18 12/28/18 12/29/18 17:16 23:53 05:45 WBC RBC Hgb Hct 29.7 L MCV MCH 27 L RDW 23.8 H Plt Count 32 L Lymph % (Auto) Branch % (Auto) Lymph # Seg Neutrophils % Seg Neuts % (Manual) 94.0 H Lymphocytes % (Manual) 4.0 L Monocytes % (Manual) Nucleated RBC % 1.0 H Seg Neutrophils # Seg Neutrophils # Man Lymphocytes # (Manual) 0.2 L Monocytes # (Manual) PT INR POC ABG pH POC ABG pCO2 POC ABG pO2 Sodium Potassium Chloride Carbon Dioxide BUN Creatinine Glucose POC Glucose 151 H 108 H Lactic Acid Calcium Phosphorus Magnesium Total Bilirubin AST Alkaline Phosphatase Total Creatine Kinase C-Reactive Protein Total Protein Albumin TSH Free T4 Urine WBC (Auto) Crossmatch 12/29/18 12/29/18 12/29/18 05:45 12:40 18:04 WBC RBC Hgb Hct MCV MCH RDW Plt Count Lymph % (Auto) Branch % (Auto) Lymph # Seg Neutrophils % Seg Neuts % (Manual) Lymphocytes % (Manual) Monocytes % (Manual) Nucleated RBC % Seg Neutrophils # Seg Neutrophils # Man Lymphocytes # (Manual) Monocytes # (Manual) PT INR POC ABG pH POC ABG pCO2 POC ABG pO2 Sodium Potassium Chloride Carbon Dioxide 20 L BUN 103 H Creatinine 2.7 H Glucose POC Glucose 108 H 147 H Lactic Acid Calcium 6.6 L Phosphorus 7.20 H Magnesium Total Bilirubin AST 49 H Alkaline Phosphatase 309 H Total Creatine Kinase C-Reactive Protein Total Protein 4.6 L Albumin 1.6 L TSH Free T4 Urine WBC (Auto) Crossmatch 12/29/18 12/30/18 12/30/18 23:47 05:44 11:29 WBC RBC Hgb Hct MCV MCH RDW Plt Count Lymph % (Auto) Branch % (Auto) Lymph # Seg Neutrophils % Seg Neuts % (Manual) Lymphocytes % (Manual) Monocytes % (Manual) Nucleated RBC % Seg Neutrophils # Seg Neutrophils # Man Lymphocytes # (Manual) Monocytes # (Manual) PT INR POC ABG pH POC ABG pCO2 POC ABG pO2 Sodium Potassium Chloride Carbon Dioxide BUN Creatinine Glucose POC Glucose 119 H 129 H 226 H Lactic Acid Calcium Phosphorus Magnesium Total Bilirubin AST Alkaline Phosphatase Total Creatine Kinase C-Reactive Protein Total Protein Albumin TSH Free T4 Urine WBC (Auto) Crossmatch 12/30/18 12/30/18 12/30/18 13:58 13:58 18:38 WBC RBC 3.12 L Hgb 8.3 L Hct 25.1 L MCV MCH 27 L RDW 24.5 H Plt Count 30 L Lymph % (Auto) Branch % (Auto) Lymph # Seg Neutrophils % Seg Neuts % (Manual) 79.0 H Lymphocytes % (Manual) 1.0 L Monocytes % (Manual) Nucleated RBC % Seg Neutrophils # Seg Neutrophils # Man Lymphocytes # (Manual) 0.0 L Monocytes # (Manual) PT INR POC ABG pH POC ABG pCO2 POC ABG pO2 Sodium Potassium Chloride Carbon Dioxide 19 L BUN 101 H Creatinine 2.4 H Glucose 196 H POC Glucose 154 H Lactic Acid Calcium 6.5 L Phosphorus Magnesium Total Bilirubin AST 45 H Alkaline Phosphatase 321 H Total Creatine Kinase C-Reactive Protein Total Protein 4.2 L Albumin 1.4 L TSH Free T4 Urine WBC (Auto) Crossmatch 12/30/18 12/31/18 12/31/18 23:46 03:55 03:55 WBC 4.4 L RBC 3.08 L Hgb 8.3 L Hct 24.9 L MCV MCH 27 L RDW 25.0 H Plt Count 14 L* Lymph % (Auto) Branch % (Auto) Lymph # Seg Neutrophils % Seg Neuts % (Manual) 71.0 H Lymphocytes % (Manual) 1.0 L Monocytes % (Manual) Nucleated RBC % Seg Neutrophils # Seg Neutrophils # Man Lymphocytes # (Manual) 0.0 L Monocytes # (Manual) PT INR POC ABG pH POC ABG pCO2 POC ABG pO2 Sodium Potassium 3.3 L Chloride 109.3 H Carbon Dioxide 20 L BUN 101 H Creatinine 2.5 H Glucose 126 H POC Glucose 141 H Lactic Acid Calcium 6.7 L Phosphorus 7.10 H Magnesium Total Bilirubin AST 42 H Alkaline Phosphatase 298 H Total Creatine Kinase C-Reactive Protein Total Protein 4.1 L Albumin 1.1 L TSH Free T4 Urine WBC (Auto) Crossmatch 12/31/18 12/31/18 12/31/18 05:13 11:49 18:51 WBC RBC Hgb Hct MCV MCH RDW Plt Count Lymph % (Auto) Branch % (Auto) Lymph # Seg Neutrophils % Seg Neuts % (Manual) Lymphocytes % (Manual) Monocytes % (Manual) Nucleated RBC % Seg Neutrophils # Seg Neutrophils # Man Lymphocytes # (Manual) Monocytes # (Manual) PT INR POC ABG pH POC ABG pCO2 POC ABG pO2 Sodium Potassium Chloride Carbon Dioxide BUN Creatinine Glucose POC Glucose 117 H 113 H 116 H Lactic Acid Calcium Phosphorus Magnesium Total Bilirubin AST Alkaline Phosphatase Total Creatine Kinase C-Reactive Protein Total Protein Albumin TSH Free T4 Urine WBC (Auto) Crossmatch 12/31/18 01/01/19 01/01/19 23:48 04:30 04:30 WBC RBC 2.86 L Hgb 7.7 L Hct 22.9 L MCV MCH 27 L RDW 25.0 H Plt Count 42 L D Lymph % (Auto) Branch % (Auto) Lymph # Seg Neutrophils % Seg Neuts % (Manual) Lymphocytes % (Manual) Monocytes % (Manual) Nucleated RBC % Seg Neutrophils # Seg Neutrophils # Man Lymphocytes # (Manual) Monocytes # (Manual) PT INR POC ABG pH POC ABG pCO2 POC ABG pO2 Sodium Potassium Chloride 110.0 H Carbon Dioxide 21 L BUN 96 H Creatinine 2.3 H Glucose 109 H POC Glucose 113 H Lactic Acid Calcium 6.5 L Phosphorus Magnesium Total Bilirubin AST Alkaline Phosphatase Total Creatine Kinase C-Reactive Protein Total Protein Albumin TSH Free T4 Urine WBC (Auto) Crossmatch 01/01/19 01/01/19 01/01/19 05:43 09:07 11:30 WBC RBC Hgb Hct MCV MCH RDW Plt Count Lymph % (Auto) Branch % (Auto) Lymph # Seg Neutrophils % Seg Neuts % (Manual) Lymphocytes % (Manual) Monocytes % (Manual) Nucleated RBC % Seg Neutrophils # Seg Neutrophils # Man Lymphocytes # (Manual) Monocytes # (Manual) PT INR POC ABG pH POC ABG pCO2 POC ABG pO2 Sodium Potassium Chloride Carbon Dioxide BUN Creatinine Glucose POC Glucose 118 H 144 H Lactic Acid Calcium Phosphorus Magnesium Total Bilirubin AST Alkaline Phosphatase Total Creatine Kinase C-Reactive Protein Total Protein Albumin TSH Free T4 Urine WBC (Auto) Crossmatch See Detail 01/02/19 01/02/19 01/02/19 05:20 05:20 16:45 WBC RBC 2.48 L 3.19 L Hgb 6.6 L 8.8 L Hct 20.1 L 26.8 L D MCV MCH 27 L RDW 24.7 H 23.3 H Plt Count 103 L D 99 L Lymph % (Auto) Branch % (Auto) Lymph # Seg Neutrophils % Seg Neuts % (Manual) 75.0 H Lymphocytes % (Manual) 12.0 L 2.0 L Monocytes % (Manual) 8.0 H Nucleated RBC % Seg Neutrophils # Seg Neutrophils # Man Lymphocytes # (Manual) 0.7 L 0.1 L Monocytes # (Manual) PT INR POC ABG pH POC ABG pCO2 POC ABG pO2 Sodium 148 H Potassium 3.4 L Chloride 111.8 H Carbon Dioxide 21 L BUN 92 H Creatinine 2.1 H Glucose 103 H POC Glucose Lactic Acid Calcium 6.5 L Phosphorus 7.00 H Magnesium Total Bilirubin AST Alkaline Phosphatase Total Creatine Kinase C-Reactive Protein Total Protein Albumin TSH Free T4 Urine WBC (Auto) Crossmatch 01/02/19 01/03/19 01/03/19 18:45 05:30 05:30 WBC RBC Hgb 10.0 L Hct 30.2 L MCV MCH 27 L RDW 22.3 H Plt Count 77 L Lymph % (Auto) Branch % (Auto) Lymph # Seg Neutrophils % Seg Neuts % (Manual) 93.0 H Lymphocytes % (Manual) 4.0 L Monocytes % (Manual) Nucleated RBC % Seg Neutrophils # Seg Neutrophils # Man Lymphocytes # (Manual) 0.3 L Monocytes # (Manual) PT INR POC ABG pH POC ABG pCO2 POC ABG pO2 Sodium 150 H Potassium 3.4 L Chloride 114.5 H Carbon Dioxide BUN 89 H Creatinine 2.1 H Glucose POC Glucose 106 H Lactic Acid Calcium 6.8 L Phosphorus Magnesium Total Bilirubin AST Alkaline Phosphatase Total Creatine Kinase C-Reactive Protein Total Protein Albumin TSH Free T4 Urine WBC (Auto) Crossmatch 01/04/19 01/04/19 01/04/19 01:45 04:30 04:30 WBC RBC 3.33 L Hgb 9.3 L Hct 27.6 L MCV MCH RDW 22.8 H Plt Count 68 L Lymph % (Auto) 6.4 L Branch % (Auto) Lymph # 0.3 L Seg Neutrophils % 86.2 H Seg Neuts % (Manual) Lymphocytes % (Manual) Monocytes % (Manual) Nucleated RBC % Seg Neutrophils # Seg Neutrophils # Man Lymphocytes # (Manual) Monocytes # (Manual) PT INR POC ABG pH POC ABG pCO2 POC ABG pO2 Sodium 152 H Potassium 3.4 L Chloride 117.3 H Carbon Dioxide 20 L BUN 81 H Creatinine 1.9 H Glucose POC Glucose 62 L Lactic Acid Calcium 6.6 L Phosphorus Magnesium Total Bilirubin AST Alkaline Phosphatase Total Creatine Kinase C-Reactive Protein Total Protein Albumin TSH Free T4 Urine WBC (Auto) Crossmatch Allied health notes reviewed: nursing
[2019-01-04 13:52] VITALS: BP 105/35
--- NOTE | 2019-01-04 14:47 | Progress Note ---
Assessment and Plan - Patient Problems (1) Respiratory failure Current Visit: Yes Status: Acute Plan to address problem: s/p trach/PEG. Pt stable. ok for transfer to [facility]. Subjective Date of service: 01/04/19 Patient Reports: Positive: other (tolerated TF this AM) Objective Vital Signs - 12hr 01/04/19 01/04/19 01/04/19 03:00 03:45 03:56 Temperature Pulse Rate 71 61 71 Pulse Rate [ Anterior Bilateral Throughout] Pulse Rate [ From Monitor] Respiratory 18 Rate Respiratory Rate [Anterior Bilateral Throughout] Blood Pressure 137/48 118/39 O2 Sat by Pulse 100 100 Oximetry O2 Sat by Pulse Oximetry [ Assessment] 01/04/19 01/04/19 01/04/19 04:00 05:00 06:00 Temperature Pulse Rate 72 70 62 Pulse Rate [ Anterior Bilateral Throughout] Pulse Rate [ From Monitor] Respiratory 18 18 18 Rate Respiratory Rate [Anterior Bilateral Throughout] Blood Pressure 118/39 124/49 125/50 O2 Sat by Pulse 100 97 99 Oximetry O2 Sat by Pulse Oximetry [ Assessment] 01/04/19 01/04/19 01/04/19 07:00 08:00 08:58 Temperature 94.5 F L Pulse Rate 65 61 78 Pulse Rate [ 68 Anterior Bilateral Throughout] Pulse Rate [ 64 From Monitor] Respiratory 18 18 Rate Respiratory 18 Rate [Anterior Bilateral Throughout] Blood Pressure 128/46 80/29 87/37 O2 Sat by Pulse 97 99 100 Oximetry O2 Sat by Pulse 100 Oximetry [ Assessment] 01/04/19 01/04/19 01/04/19 09:00 09:41 10:00 Temperature 94.5 F L Pulse Rate 67 68 Pulse Rate [ Anterior Bilateral Throughout] Pulse Rate [ From Monitor] Respiratory 16 18 Rate Respiratory Rate [Anterior Bilateral Throughout] Blood Pressure 87/37 113/41 O2 Sat by Pulse 98 99 Oximetry O2 Sat by Pulse Oximetry [ Assessment] 01/04/19 01/04/19 01/04/19 11:00 12:00 13:00 Temperature 98.2 F Pulse Rate 73 84 73 Pulse Rate [ Anterior Bilateral Throughout] Pulse Rate [ 74 From Monitor] Respiratory 18 19 18 Rate Respiratory Rate [Anterior Bilateral Throughout] Blood Pressure 99/41 111/38 140/49 O2 Sat by Pulse 98 97 99 Oximetry O2 Sat by Pulse Oximetry [ Assessment] 01/04/19 01/04/19 13:49 14:00 Temperature Pulse Rate 71 71 Pulse Rate [ Anterior Bilateral Throughout] Pulse Rate [ From Monitor] Respiratory 18 Rate Respiratory Rate [Anterior Bilateral Throughout] Blood Pressure 105/35 105/35 O2 Sat by Pulse 99 99 Oximetry O2 Sat by Pulse Oximetry [ Assessment] - General physical appearance no distress, no pain - ENT other (trach in place. No drainage) - Respiratory normal expansion, normal respiratory effort - Abdomen soft, other (PEg in place) - Labs 01/04/19 04:30 01/04/19 04:30 Diabetes panel 01/04/19 Range/Units 04:30 Sodium 152 H (137-145) mmol/L Potassium 3.4 L (3.6-5.0) mmol/L Chloride 117.3 H (98-107) mmol/L Carbon Dioxide 20 L (22-30) mmol/L BUN 81 H (7-17) mg/dL Creatinine 1.9 H (0.7-1.2) mg/dL Glucose 93 (65-100) mg/dL Calcium 6.6 L (8.4-10.2) mg/dL Calcium panel 01/04/19 Range/Units 04:30 Calcium 6.6 L (8.4-10.2) mg/dL Pituitary panel 01/04/19 Range/Units 04:30 Sodium 152 H (137-145) mmol/L Potassium 3.4 L (3.6-5.0) mmol/L Chloride 117.3 H (98-107) mmol/L Carbon Dioxide 20 L (22-30) mmol/L BUN 81 H (7-17) mg/dL Creatinine 1.9 H (0.7-1.2) mg/dL Glucose 93 (65-100) mg/dL Calcium 6.6 L (8.4-10.2) mg/dL Adrenal panel 01/04/19 Range/Units 04:30 Sodium 152 H (137-145) mmol/L Potassium 3.4 L (3.6-5.0) mmol/L Chloride 117.3 H (98-107) mmol/L Carbon Dioxide 20 L (22-30) mmol/L BUN 81 H (7-17) mg/dL Creatinine 1.9 H (0.7-1.2) mg/dL Glucose 93 (65-100) mg/dL Calcium 6.6 L (8.4-10.2) mg/dL
== END 2019-01-04 14:30 | DRG 4 ==
LOC: ED 12:48 → CC1 15:48
PROVIDERS: ADMIT Internal Medicine; ATTEND Internal Medicine
PROC: 5A1955Z Respiratory Ventilation, Greater than 96 Consecutive Hours (ICD-10-PCS; 2018-12-08)
PROC: 30233N1 Transfusion of Nonautologous Red Blood Cells into Peripheral Vein, Percutaneous Approach (ICD-10-PCS; 2018-12-08)
PROC: 4A033R1 Measurement of Arterial Saturation, Peripheral, Percutaneous Approach (ICD-10-PCS; 2018-12-08)
PROC: 0BH17EZ Insertion of Endotracheal Airway into Trachea, Via Natural or Artificial Opening (ICD-10-PCS; 2018-12-08)
PROC: 02HV33Z Insertion of Infusion Device into Superior Vena Cava, Percutaneous Approach (ICD-10-PCS; 2018-12-08)
PROC: B548ZZA Ultrasonography of Superior Vena Cava, Guidance (ICD-10-PCS; 2018-12-08)
PROC: 3E0234Z Introduction of Serum, Toxoid and Vaccine into Muscle, Percutaneous Approach (ICD-10-PCS; 2018-12-09)
PROC: 3E0A3GC Introduction of Other Therapeutic Substance into Bone Marrow, Percutaneous Approach (ICD-10-PCS; 2018-12-18)
PROC: 30233R1 Transfusion of Nonautologous Platelets into Peripheral Vein, Percutaneous Approach (ICD-10-PCS; 2018-12-19)
PROC: 02HV33Z Insertion of Infusion Device into Superior Vena Cava, Percutaneous Approach (ICD-10-PCS; 2018-12-19)
PROC: 0B113F4 Bypass Trachea to Cutaneous with Tracheostomy Device, Percutaneous Approach (ICD-10-PCS; principal; 2019-01-03)
PROC: 0BJ08ZZ Inspection of Tracheobronchial Tree, Via Natural or Artificial Opening Endoscopic (ICD-10-PCS; 2019-01-03)
PROC: 0DH63UZ Insertion of Feeding Device into Stomach, Percutaneous Approach (ICD-10-PCS; 2019-01-03)
DX: A41.9 Sepsis, unspecified organism (principal); J96.01 Acute respiratory failure with hypoxia; J69.0 Pneumonitis due to inhalation of food and vomit; R65.21 Severe sepsis with septic shock; N17.0 Acute kidney failure with tubular necrosis; G93.40 Encephalopathy, unspecified; K92.2 Gastrointestinal hemorrhage, unspecified; I31.3 Pericardial effusion (noninflammatory); N39.0 Urinary tract infection, site not specified; D62 Acute posthemorrhagic anemia; D69.6 Thrombocytopenia, unspecified; E87.6 Hypokalemia; H70.91 Unspecified mastoiditis, right ear; N18.3 Chronic kidney disease, stage 3 (moderate); G93.89 Other specified disorders of brain; E11.22 Type 2 diabetes mellitus with diabetic chronic kidney disease; I12.9 Hypertensive chronic kidney disease with stage 1 through stage 4 chronic kidney disease, or unspecified chronic kidney disease; J44.9 Chronic obstructive pulmonary disease, unspecified; E78.2 Mixed hyperlipidemia; Z88.0 Allergy status to penicillin; Z86.73 Personal history of transient ischemic attack (TIA), and cerebral infarction without residual deficits; Z90.710 Acquired absence of both cervix and uterus; Z79.899 Other long term (current) drug therapy; Z82.49 Family history of ischemic heart disease and other diseases of the circulatory system; Z23 Encounter for immunization
CPT/HCPCS: 36415; 36430; 36600; 70450; 71045; 71250; 74018; 80048; 80053; 80202; 81001; 82140; 82550; 82803; 82962; 83036; 83735; 84100; 84439; 84443; 85007; 85014; 85018; 85025; 85027; 85610; 85730; 86038; 86140; 86850; 86900; 86901; 86920; 87040; 87116; 90471; 90686; 90732; 93005; 93010; 93306; 94002; 94003; 94640; 94644; 95819; G0378; A9270-GY; C9113; G0008; G0009; J0133; J0692; J0885; J1100; J1815; J1956; J2001; J2185; J2250; J2597; J2704; J2765; J2920; J2930; J2997; J3010; J3370; J3430; J3480; J7030; J7040; J7050; J7060; J7070; P9016; P9035